=== PATIENT | female | born 1945 | race Caucasian/White ===

== ENCOUNTER → 2022-10-11 16:46 | Outpatient (POV) | payer MEDICARE, SELFPAY | PROVIDERS: Visit Provider Internal Medicine Nephrology | DX: Z00.00 Encounter for general adult medical examination without abnormal findings (principal) ==

== ENCOUNTER 2022-10-15 13:12 | Observation (INO) | payer MEDICARE, SELFPAY ==
[2022-10-15] VITALS (14 sets, daily range): BP systolic 128–262; BP diastolic 66–112; PULSE 63–80; RESP 13–21; TEMP 36.6–36.7; O2SAT 95–99; BMI 27.1
--- NOTE | 2022-10-15 13:10 | ECG_ITS ---
APPROVED REPORT Exam: Resting ECG HR:81 bpm ECG Measurements Heart Rate 81 AXES AK 202 P 75 QRSd 104 QRS 45 QT 369 T 53 QTc 406 Conclusion SINUS RHYTHM NORMAL ECG UNCONFIRMED REPORT Electronically signed by : Prashant Bee MD 10/15/2022 16:16:08
--- NOTE | 2022-10-15 13:12 | HMH.EDGENADL ---
Discharge Plan Disposition Patient Disposition: Admitted Chief Complaint: Chest Pain Prescriptions Prescriptions: No Action nifedipine 30 mg tablet extended release 24hr 30 mg PO DAILY famotidine 40 mg tablet 40 mg PO DAILY levothyroxine 75 mcg tablet 75 mcg PO AM baclofen 10 mg tablet 10 mg PO DAILYP PRN (Reason: Arthritis) pantoprazole 40 mg tablet,delayed release (DR/EC) 40 mg PO DAILY ropinirole 0.5 mg tablet 0.5 mg PO HS pramipexole 0.25 mg tablet 0.25 mg PO DAILY olmesartan 20 mg tablet 20 mg PO DAILY nebivolol 5 mg tablet 5 mg PO DAILY Folinic-Plus 4-50-2 mg tablet 1 tab PO DAILY Clinical Impressions Clinical Impression: Hypertensive emergency Discharge ED Provider: Kedar Amador General Adult HPI General Chief complaint: Chest Pain Stated complaint: Chest Pain Time Seen by Provider: 10/15/22 13:12 History of Present Illness HPI narrative: 77-year-old female presenting with severe hypertension. States that over the last few days she has had multiple symptoms including chest pain some profound dizziness and generalized weakness. Chest pain resolved yesterday but she states that currently she is profoundly weak more than normal this is also affirmed by her and continues to have some generalized dizziness. She has not had any difficulty with walking or changes in vision. No other focal neurologic abnormalities from historical standpoint. She denies any other symptoms. She went and saw her primary care doctor Antonella Gordon who sent her to the emergency department today. Patient is on oral antihypertensive medications has not missed any doses recently. Of note she did recently have a colonoscopy at [facility] where she was found to be profoundly hypertensive and had another episode recently with a provider where she was found to be profoundly hypertensive near the level where she is today. Related Data Home Medications Medication Instructions Recorded Confirmed baclofen 10 mg tablet 10 mg PO DAILYP PRN Arthritis 10/15/22 10/15/22 famotidine 40 mg tablet 40 mg PO DAILY Acid reflux 10/15/22 10/15/22 leucovorin 4 mg-pyridoxal 1 tab PO DAILY Supplement 10/15/22 10/15/22 phosphate 50 mg-mecobalamin 2 mg tablet (Folinic-Plus) levothyroxine 75 mcg tablet 75 mcg PO AM Thyroid 10/15/22 10/15/22 nebivolol 5 mg tablet 5 mg PO DAILY Heart rhythm 10/15/22 10/15/22 nifedipine 30 mg tablet,extended 30 mg PO DAILY High blood pressure 10/15/22 10/15/22 release 24 hr olmesartan 20 mg tablet 20 mg PO DAILY High blood pressure 10/15/22 10/15/22 pantoprazole 40 mg tablet,delayed 40 mg PO DAILY Acid reflux 10/15/22 10/15/22 release pramipexole 0.25 mg tablet 0.25 mg PO DAILY Tremors 10/15/22 10/15/22 ropinirole 0.5 mg tablet 0.5 mg PO HS Leg pain 10/15/22 10/15/22 Allergies Allergy/AdvReac Type Severity Reaction Status Date / Time Opioids - Morphine Analogues Allergy Verified 06/27/22 15:51 CODEINE Allergy Mild Uncoded 04/19/17 15:34 From CIPRO Allergy Mild Uncoded 04/19/17 15:34 LISINOPRIL Allergy Mild Uncoded 04/19/17 15:34 SULFA (SULFONAMIDE) Allergy Mild Uncoded 04/19/17 15:34 [facility] Disclaimer: The information contained in this section may have been updated after the patient was seen, as this information can be updated by other users. Medical History (Updated 10/15/22 @ 13:49 by Kedar Amador MD) CAD (coronary artery disease) GERD (gastroesophageal reflux disease) HTN (hypertension) Hypothyroidism Osteoporosis Parkinson disease Social History Smoking Status: Never smoker alcohol intake: never substance use type: denies use current occupational status: retired Travel in the last 8 weeks: Inside the [place] ROS Obtained: Yes All systems reviewed & no additional complaints except as documented Physical Exam General G
--- NOTE | 2022-10-15 13:22 | CT_ITS ---
FINAL REPORT CLINICAL HISTORY: dizziness, HTN FINDINGS: Axial images of the head were obtained without contrast. Coronal reformatted images were also obtained.This study was performed with techniques to keep radiation doses as low as reasonably achievable (ALARA). Individualized dose reduction techniques using automated exposure control or adjustment of mA and/or kV according to the patient's size were employed. There is no evidence of intracranial hemorrhage or mass. The ventricular size is within normal limits. There is no evidence of shift of the midline structures. No abnormal extra axial fluid collection is identified. No skull abnormality is seen on the bone window images. IMPRESSION: No acute intracranial abnormality. Reviewed, Interpreted and Dictated by Thompson Soria III, MD Transcribed by Liset Schulz Authenticated and . [facility]
--- NOTE | 2022-10-15 13:22 | XR_ITS ---
FINAL REPORT CLINICAL HISTORY: dyspnea FINDINGS: SINGLE-VIEW CHEST The heart size is normal. The mediastinum is normal. There is mild scarring in the lung bases. There is no pneumothorax. IMPRESSION: No acute cardiopulmonary process. Reviewed, Interpreted and Dictated by Thompson Soria III, MD Transcribed by Liset Schulz Authenticated and [facility]
[2022-10-15 13:29] LABS: Basophils % 0.6 % (0.1-2.0); Eosinophils # 0.1 K/mm3 (0.0-0.4); Hemoglobin 14.8 g/dL (12.2-16.2); Lymphocytes # 1.8 K/mm3 (0.7-4.5); Mean Corpuscular HGB Conc 32.8 g/dL (31.8-35.4); Mean Corpuscular Hemoglobin 28.6 pg (27.0-31.2); Mean Corpuscular Volume 87.2 fl (81-99); Mean Platelet Volume 7.9 fl (7.4-10.4); Monocytes # 0.4 K/mm3 (0.1-1.0); Monocytes % 8.1 % (1.7-9.3); Neutrophils # 2.8 K/mm3 (1.8-7.8); Neutrophils % 54.3 % (37.0-80.0); Platelet Count 248 K/mm3 (142-424); Red Blood Count 5.16 M/mm3 (4.20-5.40); Red Cell Distribution Width 13.3 % (11.5-17.5); White Blood Count 5.2 K/mm3 (4.8-10.8)
--- NOTE | 2022-10-15 13:29 | PC.NURSE ---
pharmacy called for drlizzy
[2022-10-15 13:32] LABS: Chloride 99 mmol/L (98-107); Sodium 136 mmol/L (136-145)
[2022-10-15 13:34] LABS: Alanine Aminotransferase 83 U/L (12-78); Aspartate Amino Transferase 72 U/L (14-36); Blood Urea Nitrogen 10 mg/dl (7-17); Creatinine Clearance Estimated 54 mL/min (50-200); Estimated Glomerular Filt Rate 81 ml/min (>60); GFR (African American) 98 ML/MIN (>60)
[2022-10-15 13:35] LABS: Albumin Level 4.7 g/dl (3.5-5.0); Albumin/Globulin Ratio 1.1 (1.1-1.8); Alkaline Phosphatase 61 U/L (38-126); Calcium 9.2 mg/dl (8.4-10.2); Carbon Dioxide 25 mmol/L (22.0-30.0); Globulin 4.4 g/dL (1.3-3.2); Glucose 110 mg/dl (74-100); Total Protein,Serum 9.1 g/dl (6.3-8.2)
--- NOTE | 2022-10-15 13:43 | PC.NURSE ---
Dr Amador speaking with hospitalist
[2022-10-15 13:48] LABS: Troponin I < 0.01 ng/ml (0.00-0.034)
[2022-10-15 14:03] LABS: Coronavirus 19, PCR Not Detected (NotDetected); Influenza A, PCR Not Detected (NotDetected); Influenza B, PCR Not Detected (NotDetected)
--- NOTE | 2022-10-15 14:04 | PC.NURSE ---
Attending notified patient's systolic pressure 166. No new orders at this time. NAD from patient as she rests in bed with spouse at bedside
--- NOTE | 2022-10-15 14:06 | PC.NURSE ---
Report called to MARISSA Livingston. Awaiting COVID swab results and then patient will be transported to 2nd floor
[2022-10-15 14:14] LABS: HDL Cholesterol 43 mg/dl (40-60); Triglycerides 372 mg/dl (30-150); VLDL Cholesterol 74 mg/dL (0-40)
--- NOTE | 2022-10-15 14:15 | PC.NURSE ---
Patient titrated to 2.5mg/hr on Cardene gtt per Attending Verbal order. No adverse reaction noted from Cardene
[2022-10-15 14:25] LABS: Direct LDL Cholesterol 250.47 mg/dL (100-129)
[2022-10-15 14:38] LABS: Chol/HDL Ratio 10.5 (1-3.5); Cholesterol 452 mg/dl (140-200)
--- NOTE | 2022-10-15 14:43 | PC.NURSE ---
arrived to floor by stretcher from ED
--- NOTE | 2022-10-15 14:53 | PC.NURSE ---
Pt brought to floor with Cardene gtt infusing @ 2.5 mg/hr. BP 159/69. MD Gaines notified. New orders received and carried out. Cardene gtt placed on standby.
--- NOTE | 2022-10-15 15:37 | CA_ITS ---
FINAL REPORT TECHNIQUE: Grayscale, color Doppler and duplex Doppler ultrasound of the kidneys, aorta and renal arteries was performed. Multiple velocities were measured. CLINICAL HISTORY: HTN COMPARISON: None FINDINGS: Aorta velocity: 79 cm/sec Right kidney: 10.7 cm. Right intrarenal RI: 0.49-0.67 Right renal artery velocity: 155 cm/sec. Right RAR (Renal artery-Aortic Ratio): 1.97 Left Kidney: 9.6 cm. 1.1 cm left renal cyst. Left intrarenal RI: 0.65-0.76 Left renal artery velocity: 176 cm/sec. Left RAR (Renal Artery-Aortic Ratio): 2.24 IMPRESSION: No evidence of significant renal artery stenosis. CT angiogram or postcontrast MR angiogram would be more sensitive for evaluation of possible renal artery stenosis. Reviewed, Interpreted and Dictated by Thompson Soria III, MD Transcribed by Liberty Stuart Authenticated and [facility]
--- NOTE | 2022-10-15 16:10 | EXP.HP ---
History of Present Illness *Admission Date: 10/15/22 *Reason for visit:: weakness, hypertension *History of present illness: Mrs. Moreira is a 77-year-old female who presented to to the ER with severe hypertension. States over the past few days she has had symptoms including chest burning, dizziness, generalized weakness. Her chest discomfort resolved yesterday and her most prominent symptom today is just general weakness. Occasional headaches. She has not had any difficulty with breathing. No vomiting. No focal neurologic symptoms. Saw her PCP Dr. España who sent her to the ER for further evaluation. Patient is on nebivolol, olmesartan, nifedipine orally and a clonidine patch for her hypertension. States that she occasionally has spikes into the 200s with systolics. States she had a hard time getting her blood pressure controlled. She is scheduled to have a renal artery ultrasound in the next month. Of note she recently had a colonoscopy performed at [facility] and she was severely hypertensive. Required labetalol to improve her blood pressure prior to the procedure. Has not missed any doses of her medication. Just switched her clonidine patch yesterday. Labs obtained with normal kidney function and electrolytes. Systolic blood pressure on arrival to the ER 260. Medicine consulted for admission. ER started Ms. Moreira on a nicardipine drip. She responded very briskly with improvement in her blood pressure. By the time she arrived to the floor less than 2 hours after initiating drip, blood pressure systolic in the 170s. Drip was discontinued. States she feels somewhat better. Denies any changes in vision, active headache, worsening weakness. Ambulating with minimal assistance. at bedside and updated of plan. [facility] Disclaimer: The information contained in this section may have been updated after the patient was seen, as this information can be updated by other users. Medical History (Updated 10/15/22 @ 18:41 by Barrington Gaines MD) CAD (coronary artery disease) GERD (gastroesophageal reflux disease) HTN (hypertension) Hypothyroidism Osteoporosis Parkinson disease Social History Smoking Status: Never smoker alcohol intake: never substance use type: denies use current occupational status: retired Travel in the last 8 weeks: Inside the [place] Review of Systems Review of Systems Review of systems (narrative): 14 point review of systems performed, pertinent positives and negatives as per HPI Meds Home Medications and Allergies Home Medications Medication Instructions Recorded Confirmed Type baclofen 10 mg tablet 10 mg PO BIDP PRN Arthritis 10/15/22 10/15/22 History clonidine 0.1 mg/24 hr weekly 0.1 mg transdermal WEEKLY High 10/15/22 10/15/22 History transdermal patch blood pressure famotidine 40 mg tablet 40 mg PO DAILY Acid reflux 10/15/22 10/15/22 History leucovorin 4 mg-pyridoxal 1 tab PO DAILY Supplement 10/15/22 10/15/22 History phosphate 50 mg-mecobalamin 2 mg tablet (Folinic-Plus) levothyroxine 75 mcg tablet 75 mcg PO AM Thyroid 10/15/22 10/15/22 History nebivolol 5 mg tablet 5 mg PO DAILY Heart rhythm 10/15/22 10/15/22 History nifedipine 30 mg tablet,extended 30 mg PO DAILY High blood pressure 10/15/22 10/15/22 History release 24 hr olmesartan 20 mg tablet 20 mg PO DAILY Hypertension 10/15/22 10/15/22 History pantoprazole 40 mg tablet,delayed 40 mg PO DAILY Acid reflux 10/15/22 10/15/22 History release ropinirole 0.5 mg tablet 0.5 mg PO HS Leg pain 10/15/22 10/15/22 History New Prescriptions to Start Prescriptions: Allergies Allergy/AdvReac Type Severity Reaction Status Date / Time Opioids - Morphine Analogues Allergy Verified 06/27/22 15:51 CODEINE Allergy Mild Uncoded 04/19/17 15:34 From CIPRO Allergy Mild Uncoded 04/19/17 15:34 LISINOPRIL Allergy Mild Uncoded 04/19/17 15:34 SULFA (MEEKS
[2022-10-15 17:15] LABS: Thyroid Stimulating Hormone 1.66 uIU/mL (0.465-4.68)
[2022-10-15 17:19] LABS: Troponin I < 0.01 ng/ml (0.00-0.034)
[2022-10-15 20:14] LABS: Troponin I < 0.01 ng/ml (0.00-0.034)
[2022-10-16] VITALS (8 sets, daily range): BP systolic 131–157; BP diastolic 65–79; PULSE 53–58; RESP 13–23; TEMP 36.4–36.7; O2SAT 94–99; BMI 26.8
[2022-10-16 07:22] LABS: Eosinophils # 0.1 K/mm3 (0.0-0.4); Lymphocytes # 1.8 K/mm3 (0.7-4.5); Mean Corpuscular Hemoglobin 28.3 pg (27.0-31.2); Mean Platelet Volume 7.8 fl (7.4-10.4); Monocytes # 0.4 K/mm3 (0.1-1.0); Neutrophils # 1.9 K/mm3 (1.8-7.8); Red Cell Distribution Width 13.4 % (11.5-17.5); White Blood Count 4.2 K/mm3 (4.8-10.8)
[2022-10-16 07:27] LABS: Chloride 103 mmol/L (98-107); Potassium 3.9 mmoL/L (3.5-5.1); Sodium 138 mmol/L (136-145)
[2022-10-16 07:28] LABS: Basophils % 0.7 % (0.1-2.0); Eosinophils % 2.4 % (0.1-12.0); Hematocrit 39.9 % (37.0-47.0); Lymphocytes % 43.4 % (10-50); Mean Corpuscular HGB Conc 32.5 g/dL (31.8-35.4); Monocytes % 8.7 % (1.7-9.3); Neutrophils % 44.6 % (37.0-80.0); Platelet Count 253 K/mm3 (142-424); Red Blood Count 4.58 M/mm3 (4.20-5.40)
[2022-10-16 07:29] LABS: Blood Urea Nitrogen 12 mg/dl (7-17); Creatinine Clearance Estimated 54 mL/min (50-200); Estimated Glomerular Filt Rate 69 ml/min (>60); GFR (African American) 84 ML/MIN (>60)
[2022-10-16 07:30] LABS: Alanine Aminotransferase 66 U/L (12-78); Albumin Level 3.7 g/dl (3.5-5.0); Albumin/Globulin Ratio 1.2 (1.1-1.8); Alkaline Phosphatase 47 U/L (38-126); Anion Gap 12.9 mEq/L (5-15); Aspartate Amino Transferase 54 U/L (14-36); Bilirubin,Total 0.8 mg/dl (0.2-1.3); Calcium 8.9 mg/dl (8.4-10.2); Carbon Dioxide 26 mmol/L (22.0-30.0); Globulin 3.1 g/dL (1.3-3.2); Glucose 96 mg/dl (74-100); Total Protein,Serum 6.8 g/dl (6.3-8.2)
--- NOTE | 2022-10-16 12:36 | EXP.DC.SUM ---
General Admission date:: 10/15/22 HPI HPI HPI: Mrs. Moreira is a 77-year-old female who presented to to the ER with severe hypertension. States over the past few days she has had symptoms including chest burning, dizziness, generalized weakness. Her chest discomfort resolved yesterday and her most prominent symptom today is just general weakness. Occasional headaches. She has not had any difficulty with breathing. No vomiting. No focal neurologic symptoms. Saw her PCP Dr. España who sent her to the ER for further evaluation. Patient is on nebivolol, olmesartan, nifedipine orally and a clonidine patch for her hypertension. States that she occasionally has spikes into the 200s with systolics. States she had a hard time getting her blood pressure controlled. She is scheduled to have a renal artery ultrasound in the next month. Of note she recently had a colonoscopy performed at [facility] and she was severely hypertensive. Required labetalol to improve her blood pressure prior to the procedure. Has not missed any doses of her medication. Just switched her clonidine patch yesterday. Labs obtained with normal kidney function and electrolytes. Systolic blood pressure on arrival to the ER 260. Medicine consulted for admission. ER started Ms. Moreira on a nicardipine drip. She responded very briskly with improvement in her blood pressure. By the time she arrived to the floor less than 2 hours after initiating drip, blood pressure systolic in the 170s. Drip was discontinued. States she feels somewhat better. Denies any changes in vision, active headache, worsening weakness. Ambulating with minimal assistance. at bedside and updated of plan. Hospital Course Hospital Course Hospital Course: Patient admitted complaining of abdominal pain and diarrhea. Patient tentatively diagnosed with acute gastroenteritis. Patient improved with supportive care during hospitalization. Patient states diarrhea decreasing by time of hospital discharge. Patient also noted to suffer from elevated blood pressures during hospitalization and diagnosed with hypertensive urgency. Patient started on carvedilol 12.5 mg p.o. twice daily, with blood pressures well controlled throughout hospitalization. Patient's subsequently discharged home on carvedilol, olmesartan, nicardipine XL blood pressure control medications at time of hospital disposition. Patient also advised to follow-up with primary care physician for further blood pressure control as outpatient. Patient also complained of chest discomfort during hospitalization. Patient describes chest discomfort as 3/10, crampy, lasting 30 minutes, not reproducible with palpation, resolving without intervention. Patient only had 1 bout of chest discomfort during hospitalization. Patient had 3 sets of cardiac enzymes done during hospitalizations, which were negative for cardiac ischemia. Patient's chest pain had fully resolved by time of hospital discharge. Patient subsequently advised to follow-up with primary care physician for continued chest discomfort complaints. Patient also advised that if primary care physician approved, patient may require outpatient cardiac stress test and/or cardiology evaluation after hospital disposition. Exam Data for Last 24 hours Vital signs and Labs for Last 24 Hours: Temp Pulse Resp BP Pulse Ox 98.0 F 58 L 18 152/77 H 98 10/16/22 11:14 10/16/22 11:14 10/16/22 11:14 10/16/22 11:14 10/16/22 11:14 Laboratory Results - last 24 hr 10/15/22 13:17: WBC 5.2, RBC 5.16, Hgb 14.8, Hct 45.0, MCV 87.2, MCH 28.6, MCHC 32.8, RDW 13.3, Plt Count 248, MPV 7.9, Neut % (Auto) 54.3, Lymph % (Auto) 35.0, [place] % (Auto) 8.1, Eos % (Auto) 2.0, Baso % (Auto) 0.6, Neut # (Auto) 2.8, Lymph # (Auto) 1.8, [place] # (Auto) 0.4, Eos # (Auto) 0.1, Baso # (Auto) 0.0 10/15/22 13:17: Sodium 136, Potassium 4.0, Chloride 99, Carbon Dioxide 25, Anion Gap 16.0 H, BUN 10, Creatinine 0.
--- NOTE | 2022-10-18 12:59 | SW/DCPLANNER ---
I called and spoke with this patient regarding home health services. Patient stated that she is not interested in home health services at this time. Patient stated that she is doing well at home and does not have any needs at this time.
== END 2022-10-16 14:30 | disposition home or self-care (01) ==
LOC: ER 13:49 → 2ND 13:57
PROVIDERS: Admitting Provider Internal Medicine Adolescent Medicine; Emergency Provider Student in an Organized Health Care Education/Training Program; PCP Nurse Practitioner Family; Visit Provider Internal Medicine Adolescent Medicine
DX: I16.1 Hypertensive emergency (principal); E03.9 Hypothyroidism, unspecified; Z79.899 Other long term (current) drug therapy; K21.9 Gastro-esophageal reflux disease without esophagitis; I25.10 Atherosclerotic heart disease of native coronary artery without angina pectoris; G20 Parkinson's disease; I10 Essential (primary) hypertension
CPT/HCPCS: G0378; 36415; 70450; 71045; 80053; 80061; 83735; 84443; 84484; 85025; 87636; 93005; 93306; 93976; 99291; C9803; U0003; U0005

== ENCOUNTER 2022-11-03 02:52 | Emergency (ER) | payer MEDICARE, SELFPAY ==
[2022-11-03] VITALS (8 sets, daily range): BP systolic 154–183; BP diastolic 60–80; PULSE 65–80; RESP 17–20; TEMP 36.4–36.9; O2SAT 94–98; BMI 26.9
--- NOTE | 2022-11-03 03:19 | PC.NURSE ---
Dr. Aldana at
--- NOTE | 2022-11-03 03:21 | ECG_ITS ---
APPROVED REPORT Exam: Resting ECG HR:79 bpm ECG Measurements Heart Rate 79 AXES VA 192 P 84 QRSd 109 QRS 52 QT 378 T 53 QTc 412 Conclusion SINUS RHYTHM NORMAL ECG UNCONFIRMED REPORT Electronically signed by : Prashant Bee MD 11/04/2022 21:18:13
[2022-11-03 03:26] LABS: Basophils % 0.5 % (0.1-2.0); Eosinophils # 0.1 K/mm3 (0.0-0.4); Eosinophils % 1.7 % (0.1-12.0); Hemoglobin 13.9 g/dL (12.2-16.2); Lymphocytes # 1.8 K/mm3 (0.7-4.5); Lymphocytes % 24.6 % (10-50); Mean Corpuscular Hemoglobin 28.4 pg (27.0-31.2); Mean Corpuscular Volume 86.3 fl (81-99); Mean Platelet Volume 7.8 fl (7.4-10.4); Monocytes # 0.4 K/mm3 (0.1-1.0); Monocytes % 5.3 % (1.7-9.3); Neutrophils # 4.9 K/mm3 (1.8-7.8); Neutrophils % 67.8 % (37.0-80.0); Platelet Count 221 K/mm3 (142-424); Red Blood Count 4.87 M/mm3 (4.20-5.40); Red Cell Distribution Width 13.2 % (11.5-17.5); White Blood Count 7.2 K/mm3 (4.8-10.8)
[2022-11-03 03:28] LABS: Chloride 100 mmol/L (98-107); Sodium 134 mmol/L (136-145)
[2022-11-03 03:31] LABS: Microscopic, Urine URINE MICROSCOPIC (MICROSCOPIC)
[2022-11-03 03:31] LABS: Alanine Aminotransferase 68 U/L (12-78); Albumin Level 4.4 g/dl (3.5-5.0); Albumin/Globulin Ratio 1.2 (1.1-1.8); Alkaline Phosphatase 73 U/L (38-126); Aspartate Amino Transferase 53 U/L (14-36); Bilirubin,Total 0.9 mg/dl (0.2-1.3); Blood Urea Nitrogen 13 mg/dl (7-17); Carbon Dioxide 25 mmol/L (22.0-30.0); Creatinine Clearance Estimated 54 mL/min (50-200); Estimated Glomerular Filt Rate 81 ml/min (>60); GFR (African American) 98 ML/MIN (>60); Globulin 3.6 g/dL (1.3-3.2)
[2022-11-03 03:32] LABS: Calcium 9.3 mg/dl (8.4-10.2); Glucose 124 mg/dl (74-100)
[2022-11-03 03:45] LABS: Troponin I < 0.01 ng/ml (0.00-0.034)
[2022-11-03 03:46] LABS: Appearance,Urine CLEAR (Clear); Bacteria,Urine Trace /lpf; Bilirubin,Urine Negative (Negative); Blood, Urine 2+ (Negative); Color,Urine YELLOW (Yellow); Glucose,Urine (UA) Negative (Negative); Ketones,Urine Negative (Negative); Leukocyte Esterase,Urine TRACE (Negative); Nitrate,Urine Negative (Negative); Protein,Urine Negative (Negative); Squamous Epithelial Cell,Urine Occasional #/hpf (0-5); Urobilinogen,Urine 0.2 EU/dl (0.2)
--- NOTE | 2022-11-03 04:38 | PC.NURSE ---
Pt up to bathroom and back to bed. Another warm blanket provided.
--- NOTE | 2022-11-03 05:46 | HMH.EDWEAK ---
Discharge Plan Disposition Patient Disposition: Home, Self-Care Prescriptions Prescriptions: No Action Repatha SureClick 140 mg/mL pen injector 140 mg SQ Q2W carvedilol 12.5 mg tablet 12.5 mg PO BID azelastine 137 mcg (0.1 %) aerosol,spray 1 spray intranasal BID Rx Instructions: administer into each nostril nifedipine 30 mg tablet extended release 24hr 30 mg PO DAILY famotidine 40 mg tablet 40 mg PO DAILY levothyroxine 75 mcg tablet 75 mcg PO AM baclofen 10 mg tablet 10 mg PO BIDP PRN (Reason: Arthritis) ropinirole 0.5 mg tablet 0.5 mg PO HS olmesartan 20 mg tablet 20 mg PO DAILY Folinic-Plus 4-50-2 mg tablet 1 tab PO DAILY Referrals Follow up/Referrals: Leroy Gordon APRN [Primary Care Provider] - See instructions Clinical Impressions Clinical Impression: Weakness, Hypothyroidism Instructions Patient Instructions: DI for Muscle Weakness Discharge ED Provider: Jovan (ED)Roderick Weakness HPI General Chief complaint: Weakness Stated complaint: possible blood pressure problem Time Seen by Provider: 11/03/22 04:10 Mode of Arrival: Ambulatory Source of Information: Patient, Spouse and Medical Record Limitations: No Limitations Description of Symptoms (Recalled from ER Triage Doc. by RN): pt c/o her throat feeling tight, dry/congested sinuses, LUQ/RUQ pain, diarrhea, dry heaving, weakness, dizziness, bilateral flank pain, back spasms, and leg cramps. pt states after taking her 2200 meds the last two nights (olmesartan, requip, baclofen and procardia) both nights she has had the tightness in her throat. pt states she has felt bad the last two days. History of Present Illness HPI Narrative: nonspecific changes reported by pt this am - with tightness in throat - no rash and no def chest pain MD Complaint: generalized weakness Onset (ago): hour(s) Duration: intermittent Location: generalized Migration: none Severity: moderate Related Data Home Medications Medication Instructions Recorded Confirmed baclofen 10 mg tablet 10 mg PO BIDP PRN Arthritis 10/15/22 11/03/22 famotidine 40 mg tablet 40 mg PO DAILY Acid reflux 10/15/22 11/03/22 leucovorin 4 mg-pyridoxal 1 tab PO DAILY Supplement 10/15/22 11/03/22 phosphate 50 mg-mecobalamin 2 mg tablet (Folinic-Plus) levothyroxine 75 mcg tablet 75 mcg PO AM Thyroid 10/15/22 11/03/22 nifedipine 30 mg tablet,extended 30 mg PO DAILY High blood pressure 10/15/22 11/03/22 release 24 hr olmesartan 20 mg tablet 20 mg PO DAILY Hypertension 10/15/22 11/03/22 ropinirole 0.5 mg tablet 0.5 mg PO HS Leg pain 10/15/22 11/03/22 evolocumab 140 mg/mL subcutaneous 140 mg SQ Q2W . 10/25/22 11/03/22 pen injector (Lucian Tan) azelastine 137 mcg (0.1 %) nasal 1 spray intranasal BID . 11/03/22 11/03/22 spray aerosol carvedilol 12.5 mg tablet 12.5 mg PO BID htn 11/03/22 11/03/22 Allergies Allergy/AdvReac Type Severity Reaction Status Date / Time Opioids - Morphine Analogues Allergy Verified 10/25/22 13:36 CODEINE Allergy Mild Uncoded 10/25/22 13:36 From CIPRO Allergy Mild Uncoded 10/25/22 13:36 LISINOPRIL Allergy Mild Uncoded 10/25/22 13:36 SULFA (SULFONAMIDE) Allergy Mild Uncoded 10/25/22 13:36 [facility] Disclaimer: The information contained in this section may have been updated after the patient was seen, as this information can be updated by other users. Medical History (Updated 11/03/22 @ 06:38 by Roderick Aldana (TACHO)MD) CAD (coronary artery disease) Chronic otitis externa of left ear Eustachian tube dysfunction GERD (gastroesophageal reflux disease) HTN (hypertension) Hypothyroidism Osteoporosis Parkinson disease Social History Smoking Status: Never smoker alcohol intake: never substance use type: denies use current occupational status: retired Travel in the last 8 weeks: [place] the [place]
--- NOTE | 2022-11-03 06:36 | PC.NURSE ---
pt felling nauseated, given Zofran 4mg IV per MD. pt and spouse updated that we are awaiting for 2nd troponin
[2022-11-03 06:46] LABS: Troponin I < 0.01 ng/ml (0.00-0.034)
== END 2022-11-03 07:12 | disposition home or self-care (01) ==
PROVIDERS: Emergency Provider Emergency Medicine; PCP Nurse Practitioner Family
DX: E03.9 Hypothyroidism, unspecified (principal); R53.1 Weakness; R10.11 Right upper quadrant pain; R10.12 Left upper quadrant pain; I25.10 Atherosclerotic heart disease of native coronary artery without angina pectoris; I10 Essential (primary) hypertension; G20 Parkinson's disease
CPT/HCPCS: 80053; 81001; 84484; 85025; 87086; 93005; 96361; 96374; 99285; J2405

== ENCOUNTER → 2022-11-10 12:11 | Outpatient (CLI) | payer MEDICARE, SELFPAY ==
--- NOTE | 2022-11-10 12:36 | CA_ITS ---
FINAL REPORT TECHNIQUE: Color Doppler, duplex Doppler and gerard scale sonography of the bilateral neck arterial vasculature was performed. Velocities were measured in the carotid arteries. Stenosis evaluation based on the validated velocity criteria. CLINICAL HISTORY: dizziness, CAD COMPARISON: None FINDINGS: The peak systolic velocity of the right common carotid artery is 62 cm/s. The peak systolic velocity of the right internal carotid artery is 97 cm/s and end diastolic velocity 28 cm/s. The ICA/CCA ratio is 1.6. A mild amount of plaque is present. The right external carotid artery is patent. The right vertebral artery is patent with antegrade flow. The peak systolic velocity of the left common carotid artery is 56 cm/s. The peak systolic velocity of the left internal carotid artery is 158 cm/s and end diastolic velocity 33 cm/s. The ICA/CCA ratio is 3.0. A mild amount of plaque is present. The left external carotid artery is patent.The left vertebral artery is patent with antegrade flow. IMPRESSION: Less than 50% bilateral carotid stenoses. Bilateral patent vertebral arteries with antegrade flow. If indicated, CTA or MRA could further evaluate. Reviewed, Interpreted and Dictated by Thompson Soria III, MD Transcribed by Liberty Stuart Authenticated and [facility]
== END ==
PROVIDERS: PCP Nurse Practitioner Family; Visit Provider Nurse Practitioner Family
DX: R42 Dizziness and giddiness (principal)
CPT/HCPCS: 93880

== ENCOUNTER → 2022-11-25 09:19 | Outpatient (CLI) | payer MEDICARE, SELFPAY ==
--- NOTE | 2022-11-25 09:19 | CT_ITS ---
FINAL REPORT TECHNIQUE: Pre-and postcontrast images of the abdomen were performed by computed tomography. Extensive 3-D reconstruction images were performed. A CTA was performed. This study was performed with techniques to keep radiation doses as low as reasonably achievable (ALARA). Individualized dose reduction techniques using automated exposure control or adjustment of mA and/or kV according to the patient''s size were employed. Pre-and postcontrast images of the pelvis were performed by computed tomography. Extensive 3-D reconstruction images were performed. A CTA was performed. This study was performed with techniques to keep radiation doses as low as reasonably achievable (ALARA). Individualized dose reduction techniques using automated exposure control or adjustment of mA and/or kV according to the patient''s size were employed. CLINICAL HISTORY: celiac artery stenosis, HTN COMPARISON: None FINDINGS: ABDOMEN: The lung bases are clear. Precontrast images demonstrate no evidence of nephrolithiasis. No adrenal masses are identified. The pancreas is unremarkable. There are vague hyperdensities in the peripheral right lobe of the liver, probably due to transient perfusion anomalies. There is also a superiorly separate enhancing lesion in the right lobe measuring 10 mm, and an inferior right lobe enhancing lesion measuring 24 mm. There are a few small splenic hypodense areas that most likely represent splenic cysts. There is a right renal cyst measuring 10 mm in size. The appearance of the bowel is negative. CTA: The abdominal aorta is proper caliber, with moderate diffuse plaque. The SMA, celiac axis, and ISABELLE are patent. There is mild celiac artery stenosis that is not considered hemodynamically significant. The renal arteries are patent bilaterally, with mild bilateral renal artery stenosis of less than 50%. IMPRESSION: No evidence of significant mesenteric arterial occlusive disease or renal artery occlusive disease. Enhancing liver lesions of uncertain etiology. Would recommend follow-up with either CT or MR using hemangioma protocol. PELVIS: The uterus has been surgically removed. The bladder is unremarkable in appearance. No mass or adenopathy is identified in the pelvis. The bowel located in the pelvis is unremarkable in appearance. CTA: No significant areas of vascular stenosis seen in the pelvis. Impression: Unremarkable pelvic CTA. Reviewed, Interpreted and Dictated by Yadiel Reis MD Transcribed by Terri Wilcox Authenticated and [facility]
== END ==
PROVIDERS: PCP Nurse Practitioner Family; Visit Provider Physician Assistant
DX: I10 Essential (primary) hypertension (principal); I77.1 Stricture of artery; K21.9 Gastro-esophageal reflux disease without esophagitis; Z82.49 Family history of ischemic heart disease and other diseases of the circulatory system
CPT/HCPCS: 74174; Q9967

== ENCOUNTER → 2022-12-06 12:25 | Outpatient (CLI) | payer MEDICARE, SELFPAY ==
--- NOTE | 2022-12-06 12:39 | XR_ITS ---
FINAL REPORT CLINICAL HISTORY: TAVARES FOOT PAIN, RECENT FALL FINDINGS: Right foot Three views were obtained. There is a fracture of the proximal medial aspect of the 2nd proximal phalanx which extends to the joint. There are also questionable fractures of the 1st and 3rd proximal phalanges. No soft tissue abnormality is identified. IMPRESSION: Fractures as above. Reviewed, Interpreted and Dictated by Thompson Soria III, MD Transcribed by Liset Schulz Authenticated and [facility]
--- NOTE | 2022-12-06 12:39 | XR_ITS ---
FINAL REPORT CLINICAL HISTORY: TAVARES FOOT PAIN, RECENT FALL FINDINGS: Left foot Three views were obtained. There is no acute fracture or dislocation. There are mild degenerative changes. There is a chronic fracture of the 2nd metatarsal. Small plantar calcaneal spur is identified. No soft tissue abnormality is identified. IMPRESSION: No acute process. Reviewed, Interpreted and Dictated by Thompson Soria III, MD Transcribed by Liset Schulz Authenticated and . [facility]
== END ==
PROVIDERS: PCP Nurse Practitioner Family; Visit Provider Nurse Practitioner Family
DX: M79.671 Pain in right foot (principal); M79.672 Pain in left foot; W19.XXXA Unspecified fall, initial encounter
CPT/HCPCS: 73630

== ENCOUNTER → 2022-12-10 12:56 | Outpatient (CLI) | payer MEDICARE, SELFPAY ==
--- NOTE | 2022-12-10 13:17 | CA_ITS ---
FINAL REPORT TECHNIQUE: Duplex color Doppler with spectral analysis performed of the lower extremities. CLINICAL HISTORY: edema, claudication- leg cramps FINDINGS: RIGHT LOWER EXTREMITY: Velocities cm/sec: Brachial: 165 Thigh: 202 Calf: 200 PT: 204 DLP: 194 Digit: 152 Waveforms are triphasic and biphasic. LEFT LOWER EXTREMITY: Velocities cm/sec: Brachial: 174 Thigh: 185 Calf: 207 PT: 198 DLP: 201 Digit: 170 Waveforms are triphasic and biphasic. IMPRESSION: No significant peripheral artery disease. Reviewed, Interpreted and Dictated by Thompson Soria III, MD Transcribed by Amparo Aiken Authenticated and . [facility]
--- NOTE | 2022-12-10 13:17 | US_ITS ---
FINAL REPORT CLINICAL HISTORY: claudication, HTN, hyperlipidemia, bilateral rest pain, bilateral claudication FINDINGS: ANKLE-BRACHIAL PRESSURE INDICES Pressure indices are as follows: RIGHT LOWER EXTREMITY: Ankle-brachial pressure index: 1.17 Comments: Normal LEFT LOWER EXTREMITY: Ankle-brachial pressure index: 1.16 Comments: Normal IMPRESSION: No evidence of significant obstructive peripheral vascular disease of the lower extremities Reviewed, Interpreted and Dictated by Thompson Soria III, MD Transcribed by Amparo Aiken Authenticated and [facility]
--- NOTE | 2022-12-10 13:17 | CA_ITS ---
FINAL REPORT CLINICAL HISTORY: edema s/p fall & medication changes FINDINGS: Color Doppler, duplex Doppler and compression sonography of the bilateral lower extremities was performed. There is no evidence of deep venous thrombosis from the level of the groin to the calf. The deep veins are patent and compressible. IMPRESSION: No evidence of deep venous thrombosis bilateral lower extremities. Reviewed, Interpreted and Dictated by Thompson Soria III, MD Transcribed by Amparo Aiken Authenticated and [facility]
== END ==
PROVIDERS: PCP Nurse Practitioner Family; Visit Provider Internal Medicine
DX: R60.9 Edema, unspecified; R60.0 Localized edema; I70.213 Atherosclerosis of native arteries of extremities with intermittent claudication, bilateral legs
CPT/HCPCS: 93923; 93925; 93970

== ENCOUNTER → 2022-12-23 11:04 | Outpatient (CLI) | payer MEDICARE, SELFPAY ==
--- NOTE | 2022-12-23 11:07 | MR_ITS ---
FINAL REPORT CLINICAL HISTORY: LOW BACK PAIN. HISTORY BACK SURGERY 2008. LOW BACK PAIN WITH BILATERAL HIP AND GROIN PAIN. COMPARISON: None FINDINGS: Multiplanar MR imaging of the lumbar spine was performed without contrast. On the sagittal T2-weighted images, there is abnormal decreased signal throughout the lumbar discs, with relative sparing of the L5-S1 disc. There is indentation of the superior endplate of L2 with bone marrow edema in the superior portion of the L2 vertebral body, compatible with a subacute fracture. There is approximately 20% loss of vertebral body height at this level. The vertebral alignment is normal. T12-L1: There is no significant canal stenosis or neuroforaminal narrowing. L1-2: A mild annular bulge is present along with a right paracentral disc protrusion which produces mild to moderate right neural foraminal narrowing. L2-3: There is a moderate annular bulge present with moderate facet osteoarthropathy. Moderate bilateral neural foraminal narrowing is present. L3-4: A large annular bulge is present with moderate canal stenosis. There is moderate to severe bilateral neural foraminal narrowing. L4-5: There is mild canal stenosis and mild bilateral neural foraminal narrowing. L5-S1: There is no significant canal stenosis or neural foraminal narrowing. IMPRESSION: Multilevel lumbar disc disease, most severe at the L3-4 level as described. 20% loss of vertebral body height in the L2 vertebral body superior endplate with associated bone marrow edema, most compatible with a subacute compression fracture. Reviewed, Interpreted and Dictated by Jimbo Quintero MD Transcribed by Terri Wilcox Authenticated and . [facility]
== END ==
PROVIDERS: PCP Nurse Practitioner Family; Visit Provider Nurse Practitioner Family
DX: M54.50 Low back pain, unspecified (principal)
CPT/HCPCS: 72148; 76376

== ENCOUNTER 2022-12-29 09:49 | Outpatient (CLI) | payer MEDICARE, SELFPAY ==
[2022-12-29 10:26] VITALS: BP 154/81; PULSE 58; RESP 18; TEMP 36.4; O2SAT 98
== END 2022-12-29 10:26 | disposition home or self-care (01) ==
LOC: INF 09:50
PROVIDERS: PCP Nurse Practitioner Family; Visit Provider Internal Medicine
DX: E78.5 Hyperlipidemia, unspecified (principal)
CPT/HCPCS: 96372; J1306

== ENCOUNTER → 2023-03-11 10:09 | Outpatient (CLI) | payer MEDICARE, SELFPAY ==
[2023-03-11 10:20] LABS: Microscopic, Urine URINE MICROSCOPIC (MICROSCOPIC)
[2023-03-11 11:14] LABS: Albumin Level 4.2 g/dl (3.5-5.0); Anion Gap 11.3 mEq/L (5-15); Blood Urea Nitrogen 13 mg/dl (7-17); Calcium 9.6 mg/dl (8.4-10.2); Carbon Dioxide 28 mmol/L (22.0-30.0); Chloride 106 mmol/L (98-107); Estimated Glomerular Filt Rate 54 ml/min (>60); GFR (African American) 65 ML/MIN (>60); Glucose 100 mg/dl (74-100); Phosphorous 3.7 mg/dl (2.5-4.5); Potassium 4.3 mmoL/L (3.5-5.1); Sodium 141 mmol/L (136-145)
[2023-03-11 11:37] LABS: Appearance,Urine CLEAR (Clear); Bilirubin,Urine Negative (Negative); Blood, Urine TRACE-I (Negative); Color,Urine YELLOW (Yellow); Glucose,Urine (UA) Negative (Negative); Ketones,Urine Negative (Negative); Leukocyte Esterase,Urine Negative (Negative); Nitrate,Urine Negative (Negative); PH,Urine 7.5 (5.0-8.5); Protein,Urine Negative (Negative); Specific Gravity, Urine 1.015 (1.005-1.030); Urobilinogen,Urine 0.2 EU/dl (0.2)
[2023-03-11 11:55] LABS: Bacteria,Urine Trace /lpf; RBC,Urine Occasional #/hpf (0-3); Squamous Epithelial Cell,Urine Occasional #/hpf (0-5)
== END ==
PROVIDERS: PCP Nurse Practitioner Family; Visit Provider Internal Medicine Nephrology
DX: I10 Essential (primary) hypertension (principal)
CPT/HCPCS: 80069; 81001

== ENCOUNTER → 2023-03-28 08:55 | Outpatient (CLI) | payer MEDICARE, SELFPAY ==
--- NOTE | 2023-03-28 09:00 | XR_ITS ---
FINAL REPORT CLINICAL HISTORY: POST MENOPAUSAL FINDINGS: Using L1-4, the bone mineral density of the spine is 1.161 g/cm2, corresponding to T-score of 1.0. Using the left hip, the bone mineral density of the femoral neck is 0.614 g/cm2, corresponding to a T-score of -2.1. FRAX: 22% for major osteoporotic fracture. Using the right hip, the bone mineral density of the femoral neck is 0.649 g/cm2, corresponding to a T-score of -1.8. FRAX: 20% for major osteoporotic fracture. IMPRESSION: Diminished bone mineral density of the bilateral hips consistent with osteopenia. Normal bone mineral density of the lumbar spine. Reviewed, Interpreted and Dictated by Yadiel Reis MD Transcribed by Pierce Barros Authenticated and [facility]
== END ==
PROVIDERS: PCP Nurse Practitioner Family; Visit Provider Nurse Practitioner Family
DX: M81.0 Age-related osteoporosis without current pathological fracture (principal)
CPT/HCPCS: 77080

== ENCOUNTER 2023-04-05 09:04 | Outpatient (CLI) | payer MEDICARE, SELFPAY ==
[2023-04-05 09:18] VITALS: BP 125/73; PULSE 61; RESP 16; TEMP 36.6; O2SAT 98
[2023-04-05] MEDS: INCLISIRAN SODIUM 284 MG/1.5 ML SYRINGE SQ (09:18)
== END 2023-04-05 09:35 | disposition home or self-care (01) ==
LOC: INF 09:05
PROVIDERS: PCP Nurse Practitioner Family; Visit Provider Internal Medicine
DX: E78.5 Hyperlipidemia, unspecified (principal)
CPT/HCPCS: 96372; J1306

== ENCOUNTER 2023-10-27 12:37 | Outpatient (CLI) | payer MEDICARE, SELFPAY ==
--- NOTE | 2023-10-27 12:37 | CA_ITS ---
APPROVED REPORT EXAM: Comprehensive 2D, Doppler, and color-flow Echocardiogram Log Raft Worker: Zoey Dickson CRT Ht: 5 ft 5 in Wt: 148lbs BSA: 1.74 BP: 147/61 mmHg Indications: CAD, Hyperlipidemia, Hypertension/HDD, AI 2D Dimensions LA Volume 33.40 mL LA Volume Index 18.80 mL/m2 (M/F) 16-34 M-Mode Dimensions RVDd 2.34 cm (0.9-2.6) LA Diam 3.06 cm (1.9-4.0) LVDd 4.36 cm (3.5-5.7) LVDs 2.45 cm (3.5-5.7) IVSd 1.07 cm (0.6-1.1) PWd 0.89 cm (0.6-1.1) EF (Teich) 75.30% FS 43.80% EDV (Teich) 85.80 mL TAPSE 1.94 (<1.7) ESV (Teich) 21.20 mL LV Diastology E Decel Time 150 (160-240 msec) E/A Ratio 0.69 MED A' 9.70 cm/s LAT A' 11.50 cm/s Aortic Valve AI PHT 618.00 ms AO Peak GR. 12.60 mmHg Mitral Valve MV E Max Jake. 61.0 (40-130 cm/s) MV A Velocity 88.0 (40-130 cm/s) E/A Ratio 0.69 MV PHT 44.0 ms Tricuspid Valve TR P. Velocity 248.00 cm/s RAP Estimate 10.00 mmHg RVSP 34.60 mmHg Left Ventricle The left ventricle is normal size. The left ventricular systolic function is normal. The left ventricular ejection fraction is within the normal range. Proximal septal thickening is noted. There is normal LV segmental wall motion. Transmitral Doppler flow pattern suggests impaired LV relaxation. LVEF is 55%. Right Ventricle The right ventricle is mildly dilated. The right ventricular systolic function is normal. Atria The left atrium is mildly dilated. The right atrium size is normal. There is no Doppler evidence of interatrial shunt. Aortic Valve The aortic valve is mildly thickened. There is no aortic valvular stenosis. Mild aortic regurgitation. Mitral Valve The mitral valve is normal in structure. No evidence of mitral valve stenosis. Trace mitral regurgitation. Tricuspid Valve The tricuspid valve leaflets are thin and pliable. Mild tricuspid regurgitation. RVSP is 25-30 mmHg. Pulmonic Valve The pulmonary valve is normal in structure. Trace pulmonic regurgitation. Great Vessels The aortic root is normal in size. The ascending aorta is normal in size. IVC is normal in size and collapses >50% with inspiration. Pericardium There is no pericardial effusion. Other Information Study Quality: Fair Conclusion Normal biventricular systolic function. Mild RV dilation. Mild LA dilation. Mild AI, mild TR. RVSP is 25-30 mmHg. Electronically signed by : Tiffanie Maravilla MD 10/30/2023 22:14:30
== END 2023-10-27 23:59 | disposition home or self-care (01) ==
LOC: RT 12:37
PROVIDERS: PCP Nurse Practitioner Family; Visit Provider Internal Medicine
DX: I35.1 Nonrheumatic aortic (valve) insufficiency (principal); Z82.49 Family history of ischemic heart disease and other diseases of the circulatory system; I25.10 Atherosclerotic heart disease of native coronary artery without angina pectoris; I11.9 Hypertensive heart disease without heart failure
CPT/HCPCS: 93306

== ENCOUNTER 2023-11-01 13:26 | Outpatient (CLI) | payer MEDICARE, SELFPAY ==
[2023-11-01] MEDS: INCLISIRAN SODIUM 284 MG/1.5 ML SYRINGE SQ (13:44)
[2023-11-01 13:45] VITALS: BP 130/59; PULSE 61; RESP 18; O2SAT 97
== END 2023-11-01 13:46 | disposition home or self-care (01) ==
LOC: INF 13:27
PROVIDERS: PCP Nurse Practitioner Family; Visit Provider Internal Medicine
DX: E78.5 Hyperlipidemia, unspecified (principal)
CPT/HCPCS: 96372; J1306

== ENCOUNTER 2023-11-05 09:48 | Emergency (ER) | payer MEDICARE, SELFPAY ==
[2023-11-05 10:00] VITALS: BP 124/58; PULSE 59; RESP 18; TEMP 36.4; O2SAT 100; BMI 24.4
--- NOTE | 2023-11-05 10:10 | ED_ITS ---
Discharge Plan Disposition Patient Disposition: Home, Self-Care Condition: Good Prescriptions Prescriptions: New phenazopyridine [Pyridium] 200 mg tablet 200 mg PO Q8H 2 Days Qty: 6 0RF methylprednisolone 4 mg Tablets,Dose Pack 4 mg PO DIRECTED 6 Days Qty: 21 0RF Rx Instructions: Take 1 pack as directed for 6 days cefdinir 300 mg capsule 300 mg PO BID Qty: 20 0RF ondansetron 4 mg Tablet,Disintegrating 4 mg PO Q8H PRN (Reason: Nausea) Qty: 12 0RF No Action fenofibrate 160 mg tablet 160 mg PO DAILY candesartan 16 mg tablet 16 mg PO DAILY amlodipine [Norvasc] 5 mg tablet 10 mg PO DAILY cyclobenzaprine 10 mg tablet 10 mg PO BID Qty: 60 0RF fluticasone propionate [Flonase Allergy Relief] 50 mcg/actuation spr ay,suspension 2 spray intranasal DAILY PRN (Reason: allergies) Rx Instructions: administer into each nostril Leqvio 284 mg/1.5 mL syringe 284 mg SQ [id number] Qty: 1.5 2RF carvedilol 12.5 mg tablet 12.5 mg PO BID famotidine 40 mg tablet 40 mg PO DAILY levothyroxine 75 mcg tablet 75 mcg PO AM duloxetine [Cymbalta] 60 mg Capsule,Delayed Release(Dr/Ec) 60 mg PO DAILY clonazepam 0.5 mg Tablet 0.5 mg PO HS Rx Instructions: administer 30 minutes before bedtime Referrals Follow up/Referrals: Leroy Gordon APRN [Primary Care Provider] - See instructions Activity Restrictions/Add. Instructions Additional Instructions/Restrictions: Drink plenty of fluids. Take tylenol for pain or fever. Take the medications as directed. Follow up with your regular doctor. GO TO THE ER FOR ANY WORSENING SYMPTOMS The pyridium will make your urine turn orange, this is an expected side effect. It will stain your clothes if it comes into contact with them. We will culture the urine. That will tell what bacteria is causing your infection and which antibiotics will treat it best. Sometimes the first antibiotic we prescribe turns out to not work against different bacteria. So, make sure you follow up within 3 days if you are not getting better. If your back pain continues please return to the ER. You could have a kidney stone instead of a UTI. Clinical Impressions Clinical Impression: Pharyngitis, UTI (urinary tract infection) Instructions Patient Instructions: DI for Pharyngitis/Tonsillopharyngitis -- Adult, DI for Urinary Tract Infection (UTI) Discharge ED Provider: Barrington Cortés [facility] [place] HPI General Stated complaint: sore throat, lower back pain Time Seen by Provider: 11/05/23 10:10 Related Data Home Medications Medication Instructions Recorded Confirmed famotidine 40 mg tablet 40 mg PO DAILY Acid reflux 10/15/22 11/05/23 levothyroxine 75 mcg tablet 75 mcg PO AM Thyroid 10/15/22 11/05/23 carvedilol 12.5 mg tablet 12.5 mg PO BID htn 11/03/22 11/05/23 candesartan 16 mg tablet 16 mg PO DAILY 11/15/22 11/05/23 fenofibrate 160 mg tablet 160 mg PO DAILY 11/15/22 11/05/23 amlodipine 5 mg tablet (Norvasc) 10 mg PO DAILY 12/06/22 11/05/23 clonazepam 0.5 mg tablet 0.5 mg PO HS 04/05/23 11/05/23 duloxetine 60 mg capsule,delayed 60 mg PO DAILY 04/05/23 11/05/23 release (Cymbalta) fluticasone propionate 50 2 spray intranasal DAILY PRN 08/02/23 11/05/23 mcg/actuation nasal allergies spray,suspension (Flonase Allergy Relief) Previous Rx's Medication Instructions Recorded cyclobenzaprine 10 mg tablet 10 mg PO BID #60 tabs 12/29/22 inclisiran 284 mg/1.5 mL 284 mg (1.5 mL) SQ [id number] #1.5 mL 09/30/23 subcutaneous syringe (Leqvio) cefdinir 300 mg capsule 300 mg PO BID #20 caps 11/05/23 methylprednisolone 4 mg tablets in 4 mg PO DIRECTED 6 days #21 tabs 11/05/23 a dose pack ondansetron 4 mg disintegrating 4 mg PO Q8H PRN Nausea #12 tabs 11/05/23 tablet phenazopyridine 200 mg tablet 200 mg PO Q8H 2 days #6 tabs 11/05/23 (Pyridium) Allergies Allergy/AdvReac Type Severity Reaction Status Date / Time ciprofloxacin [From Cipro] Allergy Unknown Unknown Verified 11/05/23 10:19 allergy reaction codeine Allergy Unknown Unknown Verified 11/05/23 10:19 allergy reaction lisinopril Allergy Unknown Unknown Verified 11/05/23 10:19 allergy reaction Sulfa (Sulfonamide Allergy Unknown Unknown Verified 11/05/23 10:19 Antibiotics) allergy reaction Opioids - Morphine Analogues Allergy Unknown Verified 11/05/23 10:19 allergy reaction evolocumab AdvReac Severe Difficulty Verified 11/05/23 10:19 [From Lucian Tan] Swallowing PFSH PFSH Disclaimer: The information contained in this section may have been updated after the patient was seen, as this information can be updated by other users. Medical History Chronic otitis externa of left ear Eustachian tube dysfunction This is more of a chronic left greater than right ear issue. I do feel it likely relates to allergy seasonal variation. GERD (gastroesophageal reflux disease) Hypothyroidism CAD (coronary artery disease) Osteoporosis HTN (hypertension) Surgical History Hx of tonsillectomy Hx of cholecystectomy History of back surgery Hx of hysterectomy Family History Other Family history of cancer Family history of heart disease Social History Smoking Status: Never smoker alcohol intake: never substance use type: denies use current occupational status: retired Travel in the last 8 weeks: Inside the [place] ROS Obtained: Yes All systems reviewed & no additional complaints except as do cumented Constitutional Constitutional: Reports chills and Reports fever(s) Eyes Eyes: Denies eye discharge ENT Ears, Nose, Mouth, and Throat: Reports as per HPI Cardiovascular Cardiovascular: Denies chest pain Respiratory Respiratory: Denies chest congestion and Reports cough Gastrointestinal Gastrointestingal: Reports nausea; Denies abdominal pain, constipation, cramping, diarrhea or vomiting Musculoskeletal Musculoskeletal: Denies arthralgias Integumentary/Breasts Skin/Breast: Denies rash Neurologic Neurologic: Denies paresthesias Physical Exam General General appearance: alert and in no apparent distress Head Head exam: atraumatic, normocephalic and normal inspection Eye Eye exam: Present normal appearance, PERRL and EOMI ENT ENT exam: Present mucous membranes moist and normal external ear exam Expanded ENT Exam TM/Canal exam: Bilateral TM: erythema and bulging Nose exam: Absent sinus tenderness Mouth exam: Present normal external inspection; Absent drooling Teeth exam: Present normal inspection Throat exam: Present tonsillar erythema, tonsillomegaly and tonsillar exudate Neck Neck exam: Present normal inspection, full ROM and trachea midline; Absent tenderness, meningismus or lymphadenopathy Chest Chest inspection: Present normal inspection and symmetric chest wall rise; Absent tenderness Respiratory Respiratory exam: Present normal lung sounds bilaterally; Absent respiratory distress, wheezes or stridor Cardiovascular Cardiovascular exam: Present regular rate and normal rhythm; Absent systolic murmur or diastolic murmur Abdominal Exam Abdominal exam: Present soft and normal bowel sounds; Absent distention, tenderness, guarding, rebound or rigidity Extremities Exam Extremities exam: Present normal inspection and normal capillary refill; Absent calf tenderness Back Exam Back exam: Present normal inspection and full ROM; Absent tenderness, CVA tenderness (R) or CVA tenderness (L) Neurological Exam Neurological exam: Present alert, oriented X3 and CN II-XII intact Psychiatric Psychiatric exam: Present normal affect and normal mood Skin Skin exam: Present warm, dry, intact and normal color Medical Decision Making Medical Records Medical records reviewed: No I reviewed the patient's medical records. Ernesto Inquiry Pt receiving controlled substance: No
[2023-11-05 10:57] LABS: Apearance,Urine Clear (Clear); Color,Urine Yellow (Yellow); Glucose,Urine (UA) Negative (Negative); Protein,Urine Negative (Negative); Specific Gravity, Urine 1.025 (1.005-1.030)
[2023-11-05 10:58] LABS: Bilirubin,Urine Negative (Negative); Blood, Urine Trace (Negative); Ketones,Urine Negative (Negative); UTC Leukocyte Esterase,Urine Negative (Negative); UTC Nitrate,Urine Negative (Negative); Urobilinogen,Urine 1 EU/dl (0.2)
--- NOTE | 2023-11-05 10:58 | PC.NURSE ---
Sent urine culture to lab via tube system.
[2023-11-05 11:21] VITALS: BP 124/58; PULSE 59; RESP 18; TEMP 36.3; O2SAT 100
== END 2023-11-05 11:21 | disposition home or self-care (01) ==
PROVIDERS: Emergency Provider Nurse Practitioner Family; PCP Nurse Practitioner Family
DX: N39.0 Urinary tract infection, site not specified (principal); J02.9 Acute pharyngitis, unspecified; M54.59 Other low back pain
CPT/HCPCS: 81003; 87086; 99204; 99212; G0463

== ENCOUNTER 2023-12-12 11:01 | Outpatient (CLI) | payer MEDICARE, SELFPAY ==
[2023-12-12 11:52] LABS: Chloride 110 mmol/L (98-107); Potassium 3.9 mmoL/L (3.5-5.1); Sodium 140 mmol/L (136-145)
[2023-12-12 11:55] LABS: Blood Urea Nitrogen 18 mg/dl (7-17); Calcium 9.2 mg/dl (8.4-10.2); Carbon Dioxide 28 mmol/L (22.0-30.0); Estimated Glomerular Filt Rate 53 ml/min (>60); GFR (African American) 65 ML/MIN (>60); Glucose 115 mg/dl (74-100)
[2023-12-12 11:56] LABS: Anion Gap 5.9 mEq/L (5-15)
== END 2023-12-12 23:59 | disposition home or self-care (01) ==
LOC: LAB 11:02
PROVIDERS: PCP Nurse Practitioner Family; Visit Provider Internal Medicine
DX: I25.10 Atherosclerotic heart disease of native coronary artery without angina pectoris (principal); I10 Essential (primary) hypertension
CPT/HCPCS: 36415; 80048

== ENCOUNTER 2023-12-12 18:20 | Emergency (ER) | payer MEDICARE, SELFPAY ==
[2023-12-12 18:50] VITALS: BP 132/67; PULSE 76; RESP 19; TEMP 36.7; O2SAT 97; BMI 25.7
--- NOTE | 2023-12-12 19:06 | EXP.UTC ---
Discharge Plan Disposition Patient Disposition: Home, Self-Care Condition: Good Prescriptions Prescriptions: No Action fenofibrate 160 mg tablet 160 mg PO DAILY candesartan 16 mg tablet 16 mg PO DAILY amlodipine 10 mg tablet 10 mg PO DAILY aspirin [Adult Low Dose Aspirin] 81 mg tablet,delayed release (DR/EC) 81 mg PO DAILY Qty: 30 2RF Leqvio 284 mg/1.5 mL syringe 284 mg SQ [id number] Qty: 1.5 2RF carvedilol 12.5 mg tablet 12.5 mg PO BID famotidine 40 mg tablet 40 mg PO DAILY levothyroxine 75 mcg tablet 75 mcg PO AM duloxetine [Cymbalta] 60 mg Capsule,Delayed Release(Dr/Ec) 60 mg PO DAILY clonazepam 0.5 mg Tablet 0.5 mg PO HS Rx Instructions: administer 30 minutes before bedtime Referrals Follow up/Referrals: Leroy Gordon APRN [Primary Care Provider] - See instructions Ephraim Marcos DO [Staff Physician] - See instructions (Call office for appointment) Activity Restrictions/Add. Instructions Additional Instructions/Restrictions: Use knee immobilizer as you was instructed in the [facility] Use walker to help you get around until you see Orthopedics and further care under them Over the counter Motrin and/or Tylenol for pain The [facility] will contact you tomorrow for your Venous Doppler make sure to answer the call Follow up with your Family Doctor for further care Clinical Impressions Clinical Impression: Left leg swelling Knee pain Qualifiers: Chronicity: unspecified Laterality: left Qualified Code(s): M25.562 - Pain in left knee Instructions Patient Instructions: DI for Knee Pain, How to Use a Knee Immobilizer Print Language Print Language: Cymro Discharge ED Provider: [place] [facility] [place] General Stated complaint: lower left leg swelling Mode of Arrival: Ambulatory Source of Information: Patient Limitations: No Limitations Time Seen by Provider: 12/12/23 19:06 Description of Symptoms (Recalled from Triage Doc. by RN): PATIENT C/O SWELLING TO LEFT LEG AND ANKLE FOR THE PAST FEW DAYS HEENT Symptoms (Recalled from RN notes): No Resp Symptoms (Recalled from RN notes): No Skin Symptoms (Recalled from RN notes): No MS Symptoms (Recalled from RN notes): Yes Functional Status (Recalled from RN notes): WNL History of Present Illness Provider Complaint: Patient states that she has been having pain in the sides of her knee and the back of her knee and feels like she is having swelling and tightness in her calf area down to her ankle states that she hasnt had any injury that she is scheduled for Chemical stress test tomorrow Related Data Home Medications ?Medication ?Instructions ?Recorded ?Confirmed famotidine 40 mg tablet 40 mg PO DAILY Acid reflux 10/15/22 12/12/23 levothyroxine 75 mcg tablet 75 mcg PO AM Thyroid 10/15/22 12/12/23 carvedilol 12.5 mg tablet 12.5 mg PO BID htn 11/03/22 12/12/23 candesartan 16 mg tablet 16 mg PO DAILY 11/15/22 12/12/23 fenofibrate 160 mg tablet 160 mg PO DAILY 11/15/22 12/12/23 clonazepam 0.5 mg tablet 0.5 mg PO HS 04/05/23 12/12/23 duloxetine 60 mg capsule,delayed 60 mg PO DAILY 04/05/23 12/12/23 release (Cymbalta) amlodipine 10 mg tablet 10 mg PO DAILY 12/06/23 12/12/23 Previous Rx's ?Medication ?Instructions ?Recorded inclisiran 284 mg/1.5 mL 284 mg (1.5 mL) SQ [id number] #1.5 mL 09/30/23 subcutaneous syringe (Leqvio) aspirin 81 mg tablet,delayed 81 mg PO DAILY #30 tabs 12/06/23 release (Adult Low Dose Aspirin) Allergies Allergy/AdvReac Type Severity Reaction Status Date / Time ciprofloxacin [From Cipro] Allergy Unknown Unknown Verified 12/06/23 14:33 allergy reaction codeine Allergy Unknown Unknown Verified 12/06/23 14:33 allergy reaction lisinopril Allergy Unknown Unknown Verified 12/06/23 14:33 allergy reaction Sulfa (Sulfonamide Allergy Unknown Unknown Verified 12/06/23 14:33 Antibiotics) allergy reaction hydralazine Allergy Verified 12/12/23 19:07 naproxen [From Naprosyn] Allergy Verified 12/12/23 19:07 Opioids - Morphine Analogues Allergy Unknown Verified 12/06/23 14:33 allergy reaction prednisone Allergy Verified 12/12/23 19:07 evolocumab AdvReac Severe Difficulty Verified 12/06/23 14:33 [From Lucian Tan] Swallowing Worker's Comp Is this a Worker's Comp case?: No [facility] Disclaimer: The information contained in this section may have been updated after the patient was seen, as this information can be updated by other users. Medical History (Updated 12/12/23 @ 20:35 by Emma Romero APRN) Atypical angina Chronic otitis externa of left ear Eustachian tube dysfunction GERD (gastroesophageal reflux disease) Hypothyroidism CAD (coronary artery disease) Osteoporosis HTN (hypertension) Surgical History Hx of tonsillectomy Hx of cholecystectomy History of back surgery Hx of hysterectomy Family History Other Family history of cancer Family history of heart disease Social History Smoking Status: Never smoker alcohol intake: never substance use type: denies use current occupational status: retired Travel in the last 8 weeks: Inside the [place] ROS Obtained: Yes All systems reviewed & no additional complaints except as documented and Yes Systems reviewed as appropriate & no additional complaints except as documented Constitutional Constitutional: Reports system reviewed and no additional complaints, except as documented and Reports as per HPI ENT Ears, Nose, Mouth, and Throat: Reports system reviewed and no additional complaints, except as documented and Reports as per HPI Cardiovascular Cardiovascular: Reports system reviewed and no additional complaints, except as documented and Reports as per HPI Respiratory Respiratory: Reports system reviewed and no additional complaints, except as documented and Reports as per HPI Gastrointestinal Gastrointestingal: Reports system reviewed and no additional complaints, except as documented and as per HPI Musculoskeletal Musculoskeletal: Reports system reviewed and no additional complaints, except as documented, Reports as per HPI and Reports other Comments: pain in her left knee with swelling in left knee and calf area denies known injury Physical Exam General General appearance: alert and in no apparent distress Respiratory Respiratory exam: Present normal lung sounds bilaterally; Absent respiratory distress or wheezes Cardiovascular Cardiovascular exam: Present regular rate, normal rhythm and normal heart sounds Abdominal Exam Abdominal exam: Present soft and normal bowel sounds; Absent distention or tenderness Expanded Lower Extremity Exam Left: Knee exam: Present tenderness and swelling; Absent ecchymosis, deformity or erythema Lower leg exam: Present normal inspection, full ROM and swelling; Absent tenderness (reports feels tight), ecchymosis, deformity or erythema Ankle exam: Present normal inspection and full ROM; Absent tenderness or swelling Foot/toe exam: Present normal inspection and full ROM Neurovascular/Tendon exam: Present normal capillary refill; Absent pulse deficit, motor deficit or pallor Gait: observed and normal Neurological Exam Neurological exam: Present alert, oriented X3 and normal gait Medical Decision Making Ernesto Inquiry Pt receiving controlled substance: No Ernesto was queried for this patient: No Vital Signs: 12/12/23 18:50 Temperature 98.0 F Temperature Source Oral Pulse Rate [Left Brachial] 76 Respiratory Rate 19 Blood Pressure [Left Arm] 132/67 Blood Pressure Mean [Left Arm] 88 Blood Pressure Source [Left Arm] Automatic Cuff Blood Pressure Position [Left Arm] Sitting 02 Sat by Pulse Oximetry 97 Oxygen Delivery Method Room Air Radiology Data #1: Image(s): Knee Image Reviewed: Yes I have reviewed radiologist's interpretation IMPRESSION: 1. 10 mm sliver of bone posterior to the tibial plateaus on the lateral. It is unclear whether this is acute or chronic fracture.. 2. Tricompartmental joint space narrowing and osteophyte formation consistent with degenerative changes. Joint space narrowing more evident in the medial compartment and patellofemoral compartment. Medical Decision Narrative: Spoke with PCP Leroy Gordon will do xray in [facility] today patient has no discoloration, no warmth, no redness, +Cap refill in left lower leg Patient reports pain in left knee with swelling and swelling/tightness in her calf area Denies known injury and order out patient venous doppler and have results sent to PCP tomorrow xray back see reading above will place in knee immobilzier and patient states has walker at home and follow up with Orthopedic for further examination and testing if needed patient verbalized understanding
--- NOTE | 2023-12-12 19:14 | XR_ITS ---
PROCEDURE INFORMATION: Exam: XR Left Knee Exam date and time: 12/12/2023 7:10 PM Age: 78 years old Clinical indication: Pain; Knee; Left; Additional info: Pain and swelling TECHNIQUE: Imaging protocol: Radiologic exam of the left knee. Views: 3 views. COMPARISON: US ARTERIAL LOWER EXT REST 12/10/2022 1:59 PM FINDINGS: Bones/joints: 10 mm sliver of bone posterior to the tibial plateaus on the lateral. It is unclear whether this is acute or chronic fracture.. Tricompartmental joint space narrowing and osteophyte formation consistent with degenerative changes. Joint space narrowing more evident in the medial compartment and patellofemoral compartment. No dislocation Soft tissues: Normal. IMPRESSION: 1. 10 mm sliver of bone posterior to the tibial plateaus on the lateral. It is unclear whether this is acute or chronic fracture.. 2. Tricompartmental joint space narrowing and osteophyte formation consistent with degenerative changes. Joint space narrowing more evident in the medial compartment and patellofemoral compartment.
[2023-12-12 20:38] VITALS: BP 132/67; PULSE 76; RESP 19; TEMP 36.7; O2SAT 97
== END 2023-12-12 20:42 | disposition home or self-care (01) ==
PROVIDERS: Emergency Provider Nurse Practitioner; PCP Nurse Practitioner Family
DX: I10 Essential (primary) hypertension; M25.562 Pain in left knee; R22.42 Localized swelling, mass and lump, left lower limb
CPT/HCPCS: 36415; 73562; 80048; 99212; 99213; G0463

== ENCOUNTER 2023-12-13 10:58 | Outpatient (CLI) | payer MEDICARE, SELFPAY ==
--- NOTE | 2023-12-13 | CA_ITS ---
APPROVED REPORT Exam: Pharmacologic Technologist: Sandy Hernandez, Ht: 5 ft 5 in Wt: 151 lbs BSA: 1.76 m2 HR: 67 bpm BP: 159/65 mmHg Rhythm: SR Medical History Medications: Amlodipine,,,,, Levothyroxine,,,,, Carvedilol,,,,, ClonAZEPAM,,,,, Famotidine,,,,, Cymbalta,,,,, FeNOfibrate,,,,, Cyclobenzaprine,,,,, ONdansetron,,,,, CaNDESARTAN,,,,, Leqvio,,,,, Cardiac Risk Factors: HTN, FHX of CAD Stress Test Details Test: LEXISCAN HR Resting HR: 71 bpm Max Heart Rate (APMHR): 141 bpm Max HR Achieved: 97 bpm Target HR (85% APMHR): 120 bpm % of APMHR: 69 Recovery HR: 87 bpm BP Resting BP: 159.0/65.0 mmHg Max BP: 159.0/65.0 mmHg Recovery BP: 141.0/63.0 mmHg ECG Resting ECG: SR Stress ECG: No significant ST changes Arrhythmia: None Clinical Exercise duration: 04:00 min Highest Stage Achieved: Stress ECG Conclusion During lexiscan pt experinced dyspnea and nausea. No arrhythmias noted. No significant ST changes. Conclusion: EKG portion unremarkable due to lexiscan infusion. Myoview images reported separately. Test Summary REST . . . . . . . Sitting REST 05:44 . . 71 . 159/ 65 . . Stage 1 01:00 . . 93 . . . . Stage 2 01:00 . . 94 . 144/ 65 . . Stage 3 01:00 . . 93 . 143/ 62 . . Stage 4 01:00 . . 86 . 144/ 62 . Stop exercise at 04:00 RECOVERY 01:00 . . 87 . . . . RECOVERY 02:00 . . 81 . 141/ 63 . . RECOVERY 03:00 . . 80 . 146/ 59 . . RECOVERY 03:57 . . 83 . 139/ 64 . . Electronically signed by : Tiffanie Maravilla MD 12/14/2023 10:48:27
--- NOTE | 2023-12-13 | CA_ITS ---
FINAL REPORT TECHNIQUE: Color Doppler, duplex Doppler and compression sonography of the left lower extremity deep venous systems was performed. CLINICAL HISTORY: left leg bone chip, left leg swelling post excercise. FINDINGS: There is no evidence of deep venous thrombosis from the level of the groin to the calf. The veins are patent and compressible. IMPRESSION: No evidence of deep venous thrombosis left lower extremity. Reviewed, Interpreted and Dictated by Thompson Soria III, MD Transcribed by Liset Schulz Authenticated and [facility]
--- NOTE | 2023-12-13 10:59 | NM_ITS ---
APPROVED REPORT Exam: Nuclear Stress Test Indication: Angina, Syncope, Fatigue, HTN, High cholesterol, Family history Patient Location: Outpatient Stress Tech: Sandy SEXTON Tech:Marianne Anne, ARRT, RT (R)(N) Ht: 5 ft 5 in Wt: 150 lbs Bra Size: C HR: 71 bpm BP: 159/65 mmHg BSA: 1.75 m2 Rhythm: NSR TID: 1.09 BMI: 24.9 History: Angina, Syncope, Fatigue, HTN, High cholesterol, Family history Procedure: Patient received 0.4 mg of intravenous Lexiscan, resting heart rate 71 bpm, resting blood pressure 159/65 mmHg, with Lexiscan maximum heart rate achieved was 97 bpm which is % of the maximum predicted heart rate and blood pressure was 159/65 mmHg. With Lexiscan, patient denied any complaint of chest pain. Cardiac Stress and Resting SPECT Images: Cardiac Stress and Resting SPECT images were obtained using technetium 99m Myoview 32.2 mCi stress and 10.44 mCi at rest. Resting and stress imaging in supine and prone positions demonstrate no evidence of fixed or reversible perfusion defects. Gated imaging demonstrates normal global and regional LV systolic function. LVEF is calculated at 71%. Conclusion: No evidence of fixed or reversible perfusion defects. Gated imaging demonstrates normal global and regional LV systolic function. LVEF is calculated at 71%. Electronically signed by : Tiffanie Maravilla MD 12/14/2023 10:50:22
[2023-12-13] MEDS: SODIUM CHLORIDE 0.9% 10ML SYR (RAD ONLY) 10 ML IV ×2 (12:51)
[2023-12-13] MEDS: REGADENOSON 0.4MG/5ML SYRINGE 0.4 MG IV (12:51)
[2023-12-13] MEDS: ISOTOPE MYOVIEW (PER STUDY) 1 DOSE IV (12:52)
== END 2023-12-13 23:59 | disposition home or self-care (01) ==
PROVIDERS: PCP Nurse Practitioner Family; Visit Provider Internal Medicine
DX: I25.118 Atherosclerotic heart disease of native coronary artery with other forms of angina pectoris (principal); M79.605 Pain in left leg; M79.89 Other specified soft tissue disorders
CPT/HCPCS: 78452; 93017; 93018; 93971; A9502; J2785

== ENCOUNTER 2023-12-22 09:46 | Outpatient (CLI) | payer MEDICARE, SELFPAY ==
--- NOTE | 2023-12-22 09:49 | XR_ITS ---
FINAL REPORT CLINICAL HISTORY: Rt Knee Pain COMPARISON: None FINDINGS: RIGHT KNEE: There is no acute fracture or dislocation. The joint spaces are intact. There is no soft tissue abnormality. IMPRESSION: No acute bony abnormality Reviewed, Interpreted and Dictated by Jimbo Quintero MD Transcribed by Terri Wilcox Authenticated and [facility]
== END 2023-12-22 23:59 | disposition home or self-care (01) ==
LOC: RAD 09:47
PROVIDERS: PCP Nurse Practitioner Family; Visit Provider Physician Assistant
DX: M25.561 Pain in right knee (principal)
CPT/HCPCS: 73562

== ENCOUNTER 2024-02-02 10:23 | Outpatient (CLI) | payer MEDICARE, SELFPAY ==
--- NOTE | 2024-02-02 10:34 | XR_ITS ---
FINAL REPORT CLINICAL HISTORY: INTERVERTEBRAL DISC DISORDER COMPARISON: None FINDINGS: 5 views of the lumbar spine were obtained including flexion and extension views. Alignment is within normal limits. There is moderate disc space narrowing at L3-4 with prominent anterior osteophyte formation. There is moderate facet sclerosis in the mid and lower lumbar spine. There is abnormal loss of height, measuring approximately 10%, at the superior endplate of the L2 and L5 vertebrae. Prevertebral soft tissues are unremarkable. There is no instability with flexion or extension. IMPRESSION: Loss of height superior endplates of L2 and L5. Advanced changes of degenerative disc disease at L3-4. Reviewed, Interpreted and Dictated by Jimbo Quintero MD Transcribed by Teetee Harman Authenticated and [facility]
--- NOTE | 2024-02-02 10:34 | XR_ITS ---
FINAL REPORT CLINICAL HISTORY: LEFT HIP PAIN COMPARISON: None FINDINGS: LEFT HIP: Two views of the left hip with an AP pelvis view demonstrate no acute fracture or dislocation. The joint spaces appear normal. The visualized bony structures are well aligned. No soft tissue abnormality is seen. IMPRESSION: No acute bony abnormality. Reviewed, Interpreted and Dictated by Jimbo Quintero MD Transcribed by Teetee Harman Authenticated and . [facility]
--- NOTE | 2024-02-02 10:34 | XR_ITS ---
FINAL REPORT CLINICAL HISTORY: RIGHT HIP PAIN COMPARISON: None FINDINGS: RIGHT HIP Two views of the right hip demonstrate no acute fracture or dislocation. The joint spaces appear normal. The visualized bony structures are well aligned. No soft tissue abnormality is seen. IMPRESSION: No acute bony abnormality. Reviewed, Interpreted and Dictated by Jimbo Quintero MD Transcribed by Teetee Harman Authenticated and [facility]
== END 2024-02-02 23:59 | disposition home or self-care (01) ==
PROVIDERS: PCP Nurse Practitioner Family; Visit Provider Student in an Organized Health Care Education/Training Program
DX: M51.17 Intervertebral disc disorders with radiculopathy, lumbosacral region (principal); G57.03 Lesion of sciatic nerve, bilateral lower limbs; M47.817 Spondylosis without myelopathy or radiculopathy, lumbosacral region
CPT/HCPCS: 72114; 73502

== ENCOUNTER 2024-05-11 10:59 | Outpatient (CLI) | payer MEDICARE, SELFPAY ==
[2024-05-11] MEDS: INCLISIRAN SODIUM 284 MG/1.5 ML SYRINGE SUBCUT (11:15)
[2024-05-11 11:18] VITALS: BP 148/79; PULSE 82; RESP 18; O2SAT 96
== END 2024-05-11 11:18 | disposition home or self-care (01) ==
LOC: INF 11:01
PROVIDERS: PCP Nurse Practitioner Family; Visit Provider Internal Medicine
DX: E78.5 Hyperlipidemia, unspecified (principal)
CPT/HCPCS: 96372; J1306

== ENCOUNTER 2024-05-25 17:06 | Emergency (ER) | payer MEDICARE, SELFPAY ==
[2024-05-25 18:55] VITALS: BP 155/70; PULSE 76; O2SAT 100
[2024-05-25 19:01] VITALS: BP 155/70; PULSE 78; RESP 18; TEMP 36.6; O2SAT 99; BMI 25.4
--- NOTE | 2024-05-25 19:07 | ED_ITS ---
<Statement entered by Elvi Gale DO - 05/25/24 23:11> I was consulted by the LIAM, and we discussed the complexity of the problems being addressed. I approved the treatment and management plan for this patient's care in the emergency department, thus performing a substantive portion of the medical decision making. Elvi Gale DO I independently interpreted EKG at 1915 and noted normal sinus rhythm with a ventricular rate of 73 bpm. Some motion artifact degrades study. No obvious STEMI. Normal axis Discharge Plan Disposition Patient Disposition: Admitted Condition: Good Prescriptions Prescriptions: No Action fenofibrate 160 mg tablet 160 mg PO DAILY candesartan 16 mg tablet 16 mg PO DAILY amlodipine 10 mg tablet 10 mg PO DAILY coenzyme Q10 [Co Q-10] 200 mg capsule 200 mg PO DAILY carvedilol [Coreg] 6.25 mg tablet 6.25 mg PO BID Qty: 60 2RF Rx Instructions: must administer with a meal/food Leqvio 284 mg/1.5 mL syringe 284 mg SQ [id number] Qty: 1.5 2RF famotidine 40 mg tablet 40 mg PO DAILY levothyroxine 75 mcg tablet 75 mcg PO AM duloxetine [Cymbalta] 60 mg Capsule,Delayed Release(Dr/Ec) 60 mg PO DAILY clonazepam 0.5 mg Tablet 0.5 mg PO HS Rx Instructions: administer 30 minutes before bedtime Referrals Follow up/Referrals: Willy Chanel II, MD [Staff Physician] - See instructions Leroy Gordon APRN [Primary Care Provider] - See instructions Activity Restrictions/Add. Instructions Additional Instructions/Restrictions: Have referred you to Dr. Chanel. You can call on Tuesday to make your appointment. You need to follow-up with your PCP Tuesday for recheck. Return to the ER for any worsening signs or symptoms as needed Clinical Impressions Clinical Impression: Abdominal pain Qualifiers: Abdominal location: generalized Qualified Code(s): R10.84 - Generalized abdominal pain Instructions Patient Instructions: DI for Acute Abdominal Pain Print Language Print Language: Nauruan Discharge ED Provider: Elvi Gale General Adult HPI General Chief complaint: Abdominal Pain Stated complaint: phy ref-abd pain Time Seen by Provider: 05/25/24 19:07 History of Present Illness HPI narrative: Patient presents for evaluation of generalized abdominal pain for several days. Patient reports that she has generalized abdominal discomfort without rebound or guarding or rigidity. Is able to eat and drink has normal bowel movements passing flatus. She denies any chest pain shortness of breath fever chills hemoptysis hematochezia melena nausea vomiting diarrhea. She denies dysuria hematuria vaginal discharge Related Data Home Medications ?Medication ?Instructions ?Recorded ?Confirmed famotidine 40 mg tablet 40 mg PO DAILY Acid reflux 10/15/22 04/18/24 levothyroxine 75 mcg tablet 75 mcg PO AM Thyroid 10/15/22 04/18/24 candesartan 16 mg tablet 16 mg PO DAILY 11/15/22 04/18/24 fenofibrate 160 mg tablet 160 mg PO DAILY 11/15/22 04/18/24 clonazepam 0.5 mg tablet 0.5 mg PO HS 04/05/23 04/18/24 duloxetine 60 mg capsule,delayed 60 mg PO DAILY 04/05/23 04/18/24 release (Cymbalta) amlodipine 10 mg tablet 10 mg PO DAILY 12/06/23 04/18/24 coenzyme Q10 200 mg capsule (Co 200 mg PO DAILY 03/15/24 04/18/24 Q-10) Previous Rx's ?Medication ?Instructions ?Recorded inclisiran 284 mg/1.5 mL 284 mg (1.5 mL) SQ [id number] #1.5 mL 09/30/23 subcutaneous syringe (Leqvio) carvedilol 6.25 mg tablet (Coreg) 6.25 mg PO BID #60 tabs 03/15/24 Allergies Allergy/AdvReac Type Severity Reaction Status Date / Time ciprofloxacin (From Cipro) Allergy Unknown Unknown Verified 04/18/24 12:56 allergy reaction codeine Allergy Unknown Unknown Verified 04/18/24 12:56 allergy reaction lisinopril Allergy Unknown Unknown Verified 04/18/24 12:56 allergy reaction Sulfa (Sulfonamide Allergy Unknown Unknown Verified 04/18/24 12:56 Antibiotics) allergy reaction hydralazine Allergy Verified 04/18/24 12:56 naproxen (From Naprosyn) Allergy Verified 04/18/24 12:56 Opioids - Morphine Analogues Allergy Unknown Verified 04/18/24 12:56 allergy reaction prednisone Allergy Verified 04/18/24 12:56 evolocumab (From Repatha AdvReac Severe Difficulty Verified 04/18/24 12:56 SureClick) Swallowing PFSH PFSH Disclaimer: The information contained in this section may have been updated after the patient was seen, as this information can be updated by other users. Medical History Atypical angina Chronic otitis externa of left ear Eustachian tube dysfunction This is more of a chronic left greater than right ear issue. I do feel it likely relates to allergy seasonal variation. GERD (gastroesophageal reflux disease) Hypothyroidism CAD (coronary artery disease) Osteoporosis HTN (hypertension) Surgical History Hx of tonsillectomy Hx of cholecystectomy History of back surgery Hx of hysterectomy Family History Other Family history of cancer Family history of heart disease Social History Smoking Status: Never smoker alcohol intake: never substance use type: denies use current occupational status: retired Travel in the last 8 weeks: Inside the [place] Have you lived/traveled outside [place] in past 30 days?: No Contact w/someone who lives/traveled outside [place] past 30 days?: No Exposure to someone with infectious disease in past 14 days?: No Do you have a fever (greater than 100.4 F or 38 C)?: No Have you tested positive for COVID-19: No Exposed to someone with COVID-19 in past 14 days?: No Do you have a sore throat?: No Do you have a cough?: No Do you have any weakness?: No Do you have any diarrhea?: No Are you experiencing any unusual bleeding?: No Do you have any muscle aches/pain?: No Do you have any abdominal pain?: Yes Are you experiencing loss of taste or smell?: No Other Medical History Have you received the Flu Vaccine for this season: No Have you received the Pneumonia Vaccine: Yes ROS Obtained: Yes Systems reviewed as appropriate & no additional complaints except as documented Physical Exam General General appearance: alert and in no apparent distress Respiratory Respiratory exam: Present normal lung sounds bilaterally Cardiovascular Cardiovascular exam: Present regular rate Neurological Exam Neurological exam: Present alert and oriented X3 Medical Decision Making Medical Records Medical records reviewed: Yes I reviewed the patient's medical records. Screening: Per USPSTF and CDC recommendations, given the prevalence of disease in our region, it is our hospital?s policy to screen for HIV and viral Hepatitis for all patients aged 18 and over and those with ongoing risk factors. Ernesto Inquiry Pt receiving controlled substance: No Vital Signs: 05/25/24 18:55 05/25/24 19:01 Temperature 97.9 F Temperature Source Oral Pulse Rate 76 Pulse Rate [Apical] 78 Respiratory Rate 18 Blood Pressure 155/70 H Blood Pressure [Left Arm] 155/70 H Blood Pressure Mean [Left Arm] 98 Blood Pressure Source [Left Arm] Automatic Cuff Blood Pressure Position [Left Arm] Sitting 02 Sat by Pulse Oximetry 100 99 Oxygen Delivery Method Room Air Lab Data Lab results reviewed: Yes I reviewed the patient's lab results. Lab Results 05/25/24 17:05: HCV Ab JEAN CLAUDE w/Rflx PCR Qn Negative, HIV Ag/Ab Combo Qual Negative 05/25/24 18:44: Urine Color Yellow, Urine Appearance Clear, Urine pH 6.5, Ur Specific [place] <= 1.005, Urine Protein Negative, Urine Glucose (UA) Negative, Urine Ketones Negative, Urine Blood 1+ A, Urine Nitrate Negative, Urine Bilirubin Negative, Urine Urobilinogen 0.2, Ur Leukocyte Esterase Negative, Urine RBC 5-10, Urine WBC Occasional, Ur Squamous Epith Cells Occasional 05/25/24 19:05: WBC 5.2, RBC 4.66, Hgb 13.6, Hct 39.8, MCV 85.4, MCH 29.2, MCHC 34.2, RDW 12.8, Plt Count 311, MPV 9.6, Neut % (Auto) 58.4, Lymph % (Auto) 30.9, [place] % (Auto) 8.1, Eos % (Auto) 1.4, Baso % (Auto) 0.8, Neut # (Auto) 3.0, Lymph # (Auto) 1.6, [place] # (Auto) 0.4, Eos # (Auto) 0.1, Baso # (Auto) 0.0, PT 10.4, INR 0.94, Sodium 134 L, Potassium 3.7, Chloride 103, Carbon Dioxide 24, Anion Gap 10.7, BUN 12, Creatinine 0.80, Estimated Creat Clear 50, Estimated GFR 69, Est GFR ( Amer) 84, Glucose 112 H, Calcium 9.4, Magnesium 1.7, Total Bilirubin 0.7, AST 52 H, ALT 34, Alkaline Phosphatase 30 L, Total Protein 7.7, Albumin 4.8, Globulin 2.9, Albumin/Globulin Ratio 1.7, Lipase 143 05/25/24 19:05 05/25/24 19:05 Orders (Tests/Meds): ED MEDICATIONS Discontinued Medications Generic Name Dose Route Start Last Admin Trade Name Freq PRN Reason Stop Dose Admin Acetaminophen 1,000 mg 05/25/24 19:13 05/25/24 19:40 Acetaminophen 1,000mg/100ml Vial IV 05/25/24 19:14 1,000 mg ONCE ONE Administration Iopamidol 75 ml 05/25/24 20:15 05/25/24 20:16 Iopamidol-370 (76%);100ml Bottle IV 05/25/24 20:16 75 ml ONCE ONE Administration Ketorolac Tromethamine 15 mg 05/25/24 19:13 05/25/24 19:40 Ketorolac 30mg/Ml Vial IV 05/25/24 19:14 15 mg ONCE ONE Administration Ondansetron HCl 4 mg 05/25/24 19:13 05/25/24 19:40 Ondansetron 4mg/2ml Vial IV 05/25/24 19:14 4 mg ONCE ONE Administration Sodium Chloride 10 ml 05/25/24 20:15 05/25/24 20:16 Sodium Chloride 0.9% 10ml Syr (Rad Only) IV 05/25/24 20:16 10 ml ONCE ONE Administration ORDERS Category Date Time Status CT abdomen pelvis w con Stat Cat Scan 05/25/24 19:14 Completed CBC w/Auto Diff [Complete Blood Count Auto Diff] Stat Lab 05/25/24 19:05 Completed CMP [Comprehensive Metabolic Panel] Stat Lab 05/25/24 19:05 Completed HIV Combo Stat Lab 05/25/24 17:05 Completed Hepatitis C Ab Qual. W/ RFX Stat Lab 05/25/24 17:05 Completed INR [Prothrombin Time INR] Stat Lab 05/25/24 19:05 Completed Lipase Stat Lab 05/25/24 19:05 Completed Magnesium Stat Lab 05/25/24 19:05 Completed UA [Urinalysis and Microscopic] Stat Lab 05/25/24 18:44 Completed Medical Decision Narrative: In summary patient is a 78-year-old female who presents to the emergency department for evaluation of lysed abdominal pain. Patient is hemodynamically stable upon arrival, afebrile with a blood pressure 155/70 heart rate 76 respiratory rate 18 satting at 100% on room air afebrile 97.9. Physical exam is remarkable for mild diffuse abdominal discomfort on palpation without rebound or guarding or rigidity. Bowel sounds normal active. Breath sounds are clear and equal bilaterally to the bases. There is no epigastric abdominal tenderness.. Differential diagnosis includes urinary tract infection versus gastroenteritis versus constipation versus gastritis versus pancreatitis etc. Initial workup will be conducted with hematologic labs urinalysis CT scan abdomen pelvis. Initial interventions include Tylenol Toradol. Initial workup reviewed by me shows her hematologic labs are nonactionable urinalysis is bland and my informal interpretation CT scan abdomen pelvis does not show any acute intra-abdominal processes however does show a subacute L5 vertebral body fracture that does not show any retropulsion. Upon repeat evaluation patient reported mild improvement after initial intervention. Given this we have essentially ruled out any acute or serious explanation for her abdominal discomfort and mild diagnostic uncertainty exists the patient is stable for discharge with close follow-up with her PCP and referral to gastroenterology for further evaluation and care. Verbalized understanding and agreement. Critical Care Critical Care Time Critical Care Time: No
--- NOTE | 2024-05-25 19:11 | ECG_ITS ---
APPROVED REPORT Exam: Resting ECG HR:73 bpm ECG Measurements Heart Rate 73 AXES MS 147 P -86 QRSd 109 QRS 65 QT 421 T 73 QTc 447 Conclusion Sinus rhythm with a ventricular rate of 73 bpm. No acute STEMI. Electronically signed by : EDITH DENSON, 05/25/2024 23:57:03
--- NOTE | 2024-05-25 19:14 | CT_ITS ---
PROCEDURE INFORMATION: Exam: CT Abdomen And Pelvis With Contrast Exam date and time: 05/25/2024 8:15 PM Age: 78 years old Clinical indication: Abdominal pain TECHNIQUE: Imaging protocol: Computed tomography of the abdomen and pelvis with contrast. Radiation optimization: All CT scans at this facility use at least one of these dose optimization techniques: automated exposure control; mA and/or kV adjustment per patient size (includes targeted exams where dose is matched to clinical indication); or iterative reconstruction. Contrast material: ISOVUE; Contrast volume: 75 ml; Contrast route: IV; COMPARISON: CT ANGIO ABDOMEN PELVIS 11/25/2022 9:44 AM FINDINGS: Pleural spaces: Trace bilateral pleural effusions. Liver: Low-density of the liver. Enhancing 11 mm lesion in the right hepatic lobe is unchanged. Enhancing 12 mm lesion in segment 5/6 also unchanged. Gallbladder and biliary ducts: Post cholecystectomy. Pancreas: Unremarkable. Spleen: Unremarkable. Adrenal glands: Unremarkable. Kidneys and ureters: Bilateral renal cysts. Stable left renal cortical calcification. No hydronephrosis. Stomach and bowel: Unremarkable. No bowel obstruction. Appendix: Appendix not definitely visualized, but no inflammatory changes in the right lower quadrant in the expected location of the appendix. Intraperitoneal space: Unremarkable. Vasculature: Overall mild atherosclerotic disease in the abdomen and pelvis. Lymph nodes: Unremarkable. Urinary bladder: Unremarkable as visualized. Reproductive: Post hysterectomy. Bones/joints: Mild L2 and L5 height loss without retropulsion. Soft tissues: Unremarkable. IMPRESSION: 1. No acute findings in the abdomen and pelvis. 2. New mild L5 vertebral body height loss compared to 11/25/2022 without retropulsion, likely subacute. Chronic morphology mild L2 height loss without retropulsion although new compared to 11/25/22. 3. Hepatic steatosis with stable right hepatic hemangiomas. 4. Trace bilateral pleural effusions. COMMENTS: Consistent with the [employer]'s Incidental Findings Committee white paper (J Am Ryan Radiol 2018): Any incidental renal lesion less than 1 cm or classified as too small to characterize, or any incidental cystic renal lesion characterized as simple-appearing, is likely benign. No follow-up imaging is recommended for these lesions per consensus recommendations based on imaging criteria.
[2024-05-25 19:20] LABS: Microscopic, Urine URINE MICROSCOPIC (MICROSCOPIC)
[2024-05-25 19:22] LABS: Basophils % 0.8 % (0.1-2.0); Eosinophils # 0.1 K/mm3 (0.0-0.4); Eosinophils % 1.4 % (0.1-12.0); Hematocrit 39.8 % (37.0-47.0); Hemoglobin 13.6 g/dL (12.2-16.2); Lymphocytes # 1.6 K/mm3 (0.7-4.5); Lymphocytes % 30.9 % (10-50); Mean Corpuscular HGB Conc 34.2 g/dL (31.8-35.4); Mean Corpuscular Hemoglobin 29.2 pg (27.0-31.2); Mean Corpuscular Volume 85.4 fl (81-99); Mean Platelet Volume 9.6 fl (7.4-10.4); Monocytes # 0.4 K/mm3 (0.1-1.0); Monocytes % 8.1 % (1.7-9.3); Neutrophils % 58.4 % (37.0-80.0); Platelet Count 311 K/mm3 (142-424); Red Blood Count 4.66 M/mm3 (4.20-5.40); Red Cell Distribution Width 12.8 % (11.5-17.5); White Blood Count 5.2 K/mm3 (4.8-10.8)
[2024-05-25 19:26] LABS: INR 0.94 (0.9-1.1); Prothrombin Time 10.4 seconds (9.2-12.1)
[2024-05-25 19:33] LABS: Appearance,Urine CLEAR (Clear); Bilirubin,Urine Negative (Negative); Blood, Urine 1+ (Negative); Color,Urine YELLOW (Yellow); Glucose,Urine (UA) Negative (Negative); Ketones,Urine Negative (Negative); Leukocyte Esterase,Urine Negative (Negative); Nitrate,Urine Negative (Negative); PH,Urine 6.5 (5.0-8.5); Protein,Urine Negative (Negative); Specific Gravity, Urine <= 1.005 (1.005-1.030); Urobilinogen,Urine 0.2 EU/dl (0.2)
[2024-05-25] MEDS: ONDANSETRON 4MG/2ML VIAL 4 MG IV (19:40)
[2024-05-25] MEDS: KETOROLAC 30MG/ML VIAL 15 MG IV (19:40)
[2024-05-25] MEDS: ACETAMINOPHEN 1,000MG/100ML VIAL 1000 MG IV (19:40)
[2024-05-25 19:56] LABS: Alanine Aminotransferase 34 U/L (12-78); Albumin Level 4.8 g/dl (3.5-5.0); Alkaline Phosphatase 30 U/L (38-126); Aspartate Amino Transferase 52 U/L (14-36); Bilirubin,Total 0.7 mg/dl (0.2-1.3); Calcium 9.4 mg/dl (8.4-10.2); Carbon Dioxide 24 mmol/L (22.0-30.0); Glucose 112 mg/dl (74-100); Lipase 143 U/L (23-300); Magnesium 1.7 mg/dl (1.6-2.3); Potassium 3.7 mmoL/L (3.5-5.1); Sodium 134 mmol/L (136-145)
[2024-05-25 19:57] LABS: Albumin/Globulin Ratio 1.7 (1.1-1.8); Anion Gap 10.7 mEq/L (5-15); Blood Urea Nitrogen 12 mg/dl (7-17); Chloride 103 mmol/L (98-107); Creatinine Clearance Estimated 50 mL/min (50-200); Estimated Glomerular Filt Rate 69 ml/min (>60); GFR (African American) 84 ML/MIN (>60); Globulin 2.9 g/dL (1.3-3.2); Total Protein,Serum 7.7 g/dl (6.3-8.2)
[2024-05-25 20:01] LABS: Squamous Epithelial Cell,Urine Occasional #/hpf (0-5); WBC,Urine Occasional #/hpf (0-3)
[2024-05-25] MEDS: IOPAMIDOL-370 (76%);100ML BOTTLE 75 ML IV (20:16)
[2024-05-25] MEDS: SODIUM CHLORIDE 0.9% 10ML SYR (RAD ONLY) 10 ML IV (20:16)
[2024-05-25 20:30] LABS: HIV Combo NEGATIVE (Negative)
[2024-05-25 20:37] LABS: Hepatitis C Ab Qual. W/ RFX NEGATIVE (Negative)
--- NOTE | 2024-05-25 21:15 | PC.NURSE ---
assisted pt to restroom.
[2024-05-25 21:27] VITALS: BP 154/70; PULSE 82; RESP 18; TEMP 36.8; O2SAT 97
== END 2024-05-25 21:32 | disposition home or self-care (01) ==
PROVIDERS: Physician Assistant; Emergency Provider Emergency Medicine; PCP Nurse Practitioner Family
DX: R10.84 Generalized abdominal pain (principal)
CPT/HCPCS: 74177; 80053; 81001; 83690; 83735; 85025; 85610; 86803; 87389; 93005; 96374; 96375; 99285; J0131; J1885; J2405; Q9967

== ENCOUNTER 2024-08-10 16:18 | Outpatient (CLI) | payer MEDICARE, SELFPAY ==
--- NOTE | 2024-08-10 16:24 | XR_ITS ---
PROCEDURE INFORMATION: Exam: XR Chest Exam date and time: 08/10/2024 4:25 PM Age: 78 years old Clinical indication: Cough; Additional info: Acute cough TECHNIQUE: Imaging protocol: Radiologic exam of the chest. Views: 2 views. COMPARISON: CR XR CHEST PORTABLE 10/15/2022 1:35 PM FINDINGS: Lungs: Unremarkable. No consolidation. Pleural spaces: Unremarkable. No pleural effusion. No pneumothorax. Heart/Mediastinum: Unremarkable. No cardiomegaly. Bones/joints: Unremarkable. IMPRESSION: No acute findings.
== END 2024-08-10 23:59 | disposition home or self-care (01) ==
LOC: RAD 16:21
PROVIDERS: PCP Nurse Practitioner Family; Visit Provider Nurse Practitioner Family
DX: R05.1 Acute cough (principal)
CPT/HCPCS: 71046

== ENCOUNTER 2024-10-02 13:55 | Outpatient (CLI) | payer MEDICARE, SELFPAY ==
--- NOTE | 2024-10-02 13:58 | XR_ITS ---
FINAL REPORT CLINICAL HISTORY: left knee pain FINDINGS: LEFT KNEE: 4 views of the left knee obtained. There is no acute fracture or dislocation. There is mild degenerative joint disease. There is no soft tissue abnormality. IMPRESSION: No acute osseous abnormality. Degenerative joint disease. Authenticated and [facility]
== END 2024-10-02 23:59 | disposition home or self-care (01) ==
LOC: RAD 13:56
PROVIDERS: PCP Nurse Practitioner Family; Visit Provider Physician Assistant
DX: M17.12 Unilateral primary osteoarthritis, left knee (principal)
CPT/HCPCS: 73564

== ENCOUNTER 2024-11-07 09:17 | Emergency (ER) | payer MEDICARE, SELFPAY ==
[2024-11-07] VITALS (11 sets, daily range): BP systolic 156–210; BP diastolic 60–89; PULSE 62–74; RESP 18–19; TEMP 36.6; O2SAT 96–99; BMI 25.0
--- OUTSIDE RECORDS SUMMARY | 2024-11-07 09:24 | XMS_ITS | Continuity of Care Document ---
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 Plan of Treatment Reminders Order Date Submit Date Provider Last Modified By Organization Details Last Modified Time Details Appointments None recorded. Lab urinalysis, dipstick 2024 025 [facility], [address] [place] [address], [address], 16:55:03 culture, urine 2024 025 [facility], [address] , [place], [address], 23:06:43 Referral None recorded. Procedures None recorded. Surgeries None recorded. Imaging None recorded. Medication Orders cephalexin [address] capsule [address] [facility] [id number], [address] [place] [address] , [place], [address], 16:08:13 Patient TargetsNo targets recorded. Patient InstructionsNo instructions recorded. Reason for Referral None Reported. Results Created Date Observation Date Name Description Value Unit Range Abnormal Flag Note LastModifiedBy Organization Detail LastModifiedTime 11/02/19 25 11/01/2024 urina lysis , dipst ick Leukocytes Negati ve Not Available [address], [address], 11/01/2024 16:03:32 11/02/19 25 11/01/2024 urina lysis , dipst ick Nitrite negati ve Not Available [address], [address], 11/01/2024 16:03:32 11/02/19 25 11/01/2024 urina lysis , dipst ick Urobilinogen .2 Not Available Jim [address], [address], 11/01/2024 16:03:32 11/02/19 25 11/01/2024 urina lysis , dipst ick Protein Negati ve Not Available [address], [address], 11/01/2024 16:03:32 11/02/19 25 11/01/2024 urina lysis , dipst ick pH 6.0 Not Available [address], [address], 11/01/2024 16:03:32 11/02/19 25 11/01/2024 urina lysis , dipst ick Blood Non-He molyze d: Trace Not Available [address], [address], 11/01/2024 16:03:32 11/02/19 25 11/01/2024 urina lysis , dipst ick Specific Buckner 1.010 Not Available [address], [address], 11/01/2024 16:03:32 11/02/19 25 11/01/2024 urina lysis , dipst ick Ketone Negati ve Not Available [address] [place], [address], 11/01/2024 16:03:32 11/02/19 25 11/01/2024 urina lysis , dipst ick Bilirubin Negati ve Not Available [address], [address], 11/01/2024 16:03:32 11/02/19 25 11/01/2024 urina lysis , dipst ick Glucose Negati ve Not Available [address], [address], 11/01/2024 16:03:32 11/02/19 25 11/01/2024 urina lysis , dipst ick Appearance Clear Not Available [address], [address], 11/01/2024 16:03:32 11/02/19 25 11/01/2024 urina lysis , dipst ick Color Pale Yellow Not Available [address], [address], 11/01/2024 16:03:32 10/03/19 25 10/02/2024 XR, knee, 3 view No observ ation record ed. [facility] [address], [place], [address], 10/02/2024 15:58:31 Result Notes None recorded. Problems Name Problem SNOMED Code Status Onset Date Resolution Date Notes Provider Name and Address Organization Details Recorded Time History of polyp of colon 876880149 Active 2017 Leroy Gordon APRN [address], [place], [address] , [place] - [facility] 3 13:43:03 Irritable bowel syndrome 58178447 Active 2015 Leroy Gordon APRN [address], [place], [address] , [place] - [facility] 3 13:43:15 Osteopenia 603877651 Active 2015 Leroy Gordon, HYDROSTATIC TESTER [address], [place], [address] , [place] - [facility] 3 13:43:18 Acid reflux 896971710 Active 2022 Leslye Chaudhry null, [place] - [facility] 4 12:50:11 Essential hypertension 19316947 Active 2016 Leroy Gordon, HYDROSTATIC TESTER [address], [place], [address] , [place] - [facility] 3 13:43:01 Acute bronchitis 98740625 Active 2022 Leslye Chaudhry null, [place] - [facility] 4 12:50:11 Hyperlipidemi a 50308950 Active 2016 Leroy Gordon, HYDROSTATIC TESTER [address], [place], [address] , [place] - [facility] 3 13:43:05 Hypothyroidis m 66220636 Active 2016 Leroy Gordon, HYDROSTATIC TESTER [address], [place], [address] , [place] - [facility] 3 13:43:12 Prediabetes 792182748 Active 2016 Leroy Gordon, HYDROSTATIC TESTER [address], [place], [address] , [place] - [facility] 3 13:43:20 Nocturia 959281457 Active 2023 Ree Dubon, HYDROSTATIC TESTER [address], [place], [address] , [place] - [facility] 4 14:22:42 Vitamin D deficiency 44323670 Active 2016 Leroy Gordon, HYDROSTATIC TESTER [address], [place], [address] , [place] - [facility] 3 13:43:27 Problem Notes None recorded. Procedures Surgical History Date Name Laterality Status Provider Name and Address Organization Details Recorded Time 05/28/19 Medication Reconcilliation completed Anika Vaughn [place] - [facility] 05/28/2024 13:39:47 04/26/20 24 In and Out Catheterization completed Ree Dubon APRN [address], [place], [address], [place] - [facility] 04/26/2024 14:24:58 12/08/19 24 Advance Care Planning completed Concepcion E[place]a [place] - [facility] 12/08/2023 10:30:13 12/08/19 24 Functional Status Assessed completed Concepcion [place]a [place] - [facility] 12/08/2023 10:30:13 03/28/20 23 Most Recent Bone Density completed Leslye Chaudhry [place] - [facility] 04/26/2024 13:00:54 10/19/19 23 Medication Reconcilliation completed Concepcion Espana [place] - [facility] 10/18/2022 10:41:30 10/09/19 23 Date of Last Colonoscopy completed Ree Dubon APRN [address], [place], [address], [place] - [facility] 05/09/2024 08:51:39 10/09/19 23 Colonoscopy completed Leslye Chaudhry [place] - [facility] 04/26/2024 13:02:58 05/02/19 22 Endoscopy completed Concepcion [place]a [place] - [facility] 12/08/2023 10:31:21 06/22/19 19 Medication Reconcilliation completed Fawn Rogers [place] [facility] 06/22/2018 10:23:26 04/28/20 18 Medication Reconcilliation completed Fawn Rogers [place] [facility] 04/28/2018 09:48:45 04/11/20 18 Medication Reconcilliation completed Fawn Rogers [place] [facility] 04/11/2018 14:39:38 02/01/20 18 Date of Last Mammogram completed Leslye Chaudhry [place] - [facility] 04/26/2024 13:00:37 02/01/20 18 Most Recent Mammogram completed Elvira Velarde MD [address], [place], [address], [place] - [facility] 01/31/2018 15:24:08 02/09/20 08 Orthopedic Surgery completed Leslye Chaudhry [place] - [facility] 04/26/2024 13:03:44 02/09/20 08 Back Surgery completed Anika Vaughn [place] - [facility] 05/25/2024 13:33:27 06/17/18 75 Hysterectomy completed Concepcion PINED[place] - [facility] 12/08/2023 10:31:21 06/17/18 75 Adnexal surgery completed Concepcion PINEDA - [facility] 12/08/2023 10:31:21 06/17/18 75 Appendectomy completed Concepcion PINEDA - [facility] 12/08/2023 10:31:21 05/02/18 69 Tonsillectomy completed Concepcion PINEDA - [facility] 12/08/2023 10:31:21 skin cancer completed Fawn PINEDA - [facility] 05/24/2016 15:15:17 Hysterectomy, Total Abdominal completed Fawn PINEDA - [facility] 05/24/2016 15:15:35 Imaging Results None recorded. Procedure Notes None recorded. Medical Equipment None Reported. Allergies Allergen ID Allergen Name Allergen Category Reaction Reaction Severity Criticality Documentation Date Start Date Code Code System Note Provider Name and Address Organization Details Recorded Time 095938 amlodipin e medicatio n nausea Not available Not available 04/28/2018 78492 RxNorm Elvira Velarde MD [facility] [address], [place], [address], [place] - [facility] 8 10:19:28 310823 Repatha medicatio n swelling Not available [facility] 12/14/2022 55775 96 RxNorm Concepcion mason, [place] - [facility] 3 11:14:57 923738 Naprosyn medicatio n Not available Not available Not available 04/26/202420291 2 RxNorm Leslye mason, [place] - [facility] 4 12:49:29 335608 prednison e medicatio n Not available Not available Not available 04/26/2024 8640 RxNorm Leslye mason, [place] - [facility] 4 12:49:36 10318 lisinopri l medicatio n cough Not available Not available 02/06/20162010 16271 RxNorm React ion: cough ; Not Available [facility] 6 09:08:49 50617 Cipro medicatio n hives Not available Not available 02/06/2016201056 3 RxNorm React ion: hives ; Not Available [facility] 6 09:35:17 31658 codeine sulfate medicatio n Not available Not available Not available 02/06/20162008 43004 RxNorm Not Available [facility] 6 10:11:15 90915 Actonel medicatio n Not available Not available Not available 02/06/20162011 42235 3 RxNorm Not Available [facility] 6 10:11:15 37764 Substance with sulfonami de structure and antibacte rial mechanism of action (substanc e) medicatio n Not available Not available Not available 02/06/20162008 90842 8003 SNOMED Not Available [facility] 6 10:11:15 30723 morphine medicatio n myalgias (muscle pain) Not available Not available 09/08/2017 7052 RxNorm shaky all over, pain to neck Elvira Velarde MD [facility] [address], [place], [address], [place] - [facility] 8 14:59:58 Medications Name Sig Start Date Stop Date Status Note LastModified by Organization Details LastModified Time Prescript ion - New active Not Available Not Available No t Available nifedipin e ER 30 mg tablet,ex tended release 24 hr 1 tablet qd 11/13 completed Not Available Not Available Not Available cyclobenz aprine 10 mg tablet Take 1 tablet 3 times a day by oral route as needed. 03/23 completed Not Available Not Available Not Available amoxicill in 500 mg capsule take 1 capsule (500 mg) by oral route 2 times per day for 10 days 07/27 completed Not Available Not Available Not Available methocarb gurpreet 500 mg tablet take 2 tablets (1,000 mg) by oral route 4 times per day 06/29 completed Not Available Not Available Not Available neomycin- polymyxin -hydrocor t 3.5 mg/mL-10, 000 unit/mL-1 % ear solution instill 4 drops into left ear by otic route 3 times per day for 5 days 09/08 completed Not Available Not Available Not Available carvedilo l 6.25 mg tablet Take 1 tablet twice a day by oral route for 30 days. 2024 active Not Available Not Available Not Avai lable prednison e 10 mg tablet 05/31 completed Not Available Not Available Not Available Estrace 2 mg tablet 2mg weekly 11/14 completed Estrace 2 mg oral tablet;R ecorded Status: Recorded on: 11/15/19 14 1:24PM;D iscontin ued Status: Disconti nued on: 11/15/19 14 2:17PM;U ser: genevieve Not Available Not Available Not Available atorvasta tin 20 mg tablet take 1 tablet (20 mg) by oral route once daily 08/12 completed Not Available Not Available Not Available carvedilo l 12.5 mg tablet Take 1 tablet twice a day by oral route. 07/27 completed Not Available Not Available Not Available clonidine 0.1 mg/24 hr weekly transderm al patch Apply 1 patch every week by transder mal route. 10/18 completed Not Available Not Available Not Available cefaclor 500 mg capsule take 1 capsule (500 mg) by oral route every 8 hours for 7 days 10/06 completed cefaclor 500 mg oral capsule; comment: diarrhea (??);Pre scribe Status: Prescrib ed on: 10/03/19 13 5:00PM;D iscontin ued Status: Disconti nued on: 10/07/19 13 11:56AM; User: sinai EspitiaEstSiddharth Completi on: 10/10/19 13;Pharm acyVerif ied: 10/03/19 13 5:00PM Not Available Not Available Not Available loperamid e 2 mg capsule 10/15 completed Not Available Not Available Not Available Proctocor t 30 mg rectal supposito ry insert 1 supposit ory (30 mg) by rectal route once-twi ce daily prn 05/30 completed Proctoco rt 30 mg rectal supposit ory;Landry rded Status: Recorded on: 01/18/20 12 2:32PM;D iscontin ued Status: Disconti nued on: 05/30/19 13 5:20PM;U ser: sinai EspitiaEst. Completi on: 03/18/20 12;Indic ation: Proctiti s - ([id number] 90);Prin bernarda: 01/18/20 12 Not Available Not Available Not Available pravastat in 40 mg tablet 02/22 completed pravasta tin 40 mg oral tablet;R ecorded Status: Recorded on: 05/30/19 13 5:20PM;D iscontin ued Status: Disconti nued on: 02/23/20 13 1:34PM;U ser: glascock r;Indica tion: Mixed Hyperlip idemia - () Not Available Not Available Not Available tizanidin e 4 mg tablet Take by oral route for 30 days. 06/29 completed Not Available Not Available Not Available fluconazo le 150 mg tablet 05/31 completed Not Available Not Available Not Available metoprolo l succinate ER 50 mg tablet,ex tended release 24 hr TAKE 1 TABLET EVERY DAY 06/22 completed Not Available Not Available Not Available hydrocodo ne 5 mg-acetam inophen 325 mg tablet Take 1 tablet twice a day by oral route for 3 days. 02/23 completed Not Available Not Available Not Available meloxicam 15 mg tablet take 1 tablet (15 mg) by oral route once daily 04/07 completed Not Available Not Available Not Available sucralfat e 1 gram tablet 11/13 completed Not Available Not Available Not Available promethaz ine 12.5 mg tablet Take 1 tablet 4 times a day by oral route as needed. 06/29 completed Not Available Not Available Not Available lisinopri l 20 mg tablet take 1 tablet (20 mg) by oral route once daily for 90 days 05/29 completed lisinopr il 20 mg oral tablet;R ecorded Status: Recorded on: 03/11/20 10 4:43PM;D iscontin ued Status: Disconti nued on: 05/29/19 11 2:07PM;U ser: earlywin ec;Est. Completi on: 03/06/20 11;Indic ation: Hyperten courtney - (4019 );Prin bernarda: 03/11/20 10 Not Available Not Available Not Available ondansetr on HCl 4 mg tablet Take 1 tablet every 8 hours by oral route as needed for 3 days. 06/15 completed Not Available Not Available Not Available famotidin e 40 mg tablet Take 1 tablet twice a day by oral route for 30 days. 03/23 completed Not Available Not Available Not Available Medrol (Gregory) 4 mg tablets in a dose pack Take 1 dose pk by oral route as directed . 08/10 completed Not Available Not Available Not Available alendrona te 70 mg tablet 1 tab po once weekly in the morning, at least 30 min before first food, beverage , or medicati on of day 11/01 completed alendron ate 70 mg oral tablet;c omment: Cramping ;Prescri be Status: Prescrib ed on: 01/30/20 13 9:19PM;D iscontin ued Status: Disconti nued on: 11/02/19 14 10:00AM; User: sinai EspitiaEstSiddharth Completi on: 12/26/19 14;Indic ation: Post-Men opausal Osteopor osis - (13.7330 10);Phar Maury fied: 01/30/20 13 9:19PM Not Available Not Available Not Available clonazepa m 0.5 mg tablet 1 tablet every night active Not Available Not Available No t Available Pyridium 100 mg tablet take 1 tablet (100 mg) by oral route 3 times per day after meals for 3 days 08/27 completed Pyridium 100 mg oral tablet;P rescribe Status: Prescrib ed on: 06/20/19 16 10:41AM; Disconti nued Status: Disconti nued on: 08/28/19 16 10:34AM; User: deanna EspitiaEstSiddharth Completi on: 06/23/19 16;Indic ation: Acute cystitis without hematuri a - (595.0); Pharmacy Verified : 06/20/19 16 10:41AM Not Available Not Available Not Available Pyridium 200 mg tablet take 1 tablet (200 mg) by oral route 3 times per day after meals for 2 days 02/11 completed Pyridium 200 mg oral tablet;R ecorded Status: Recorded on: 01/03/20 10 1:50PM;D iscontin ued Status: Disconti nued on: 02/12/20 10 3:26PM;U ser: gillisa; Est. Completi on: 01/05/20 10;Indic ation: Urinary Tract Irritati on - (16.7889 00);Prin bernarda: 01/03/20 10 Not Available Not Available Not Available Zithromax Z-Gregory 250 mg tablet TAKE 2 TABLETS (500 MG) BY ORAL ROUTE ONCE DAILY FOR 1 DAY THEN 1 TABLET (250 MG) BY ORAL ROUTE ONCE DAILY FOR 4 DAYS 08/10 completed Not Available Not Available Not Available penicilli n V potassium 500 mg tablet take 1 tablet (500 mg) by oral route 3 times per day for 5 days 01/26 completed penicill in V potassiu m 500 mg oral tablet;P rescribe Status: Prescrib ed on: 10/07/19 13 11:56AM; Disconti nued Status: Disconti nued on: 01/27/20 13 10:27AM; User: sinai EspitiaEst. Completi on: 10/12/19 13;Pharm acyVerif ied: 10/07/19 13 11:56AM Not Available Not Available Not Available amlodipin e 5 mg tablet take 1 tablet (5 mg) by oral route once daily for 30 days 12/14 completed Not Available Not Available Not Available ciproflox acin 500 mg tablet take 1 tablet (500 mg) by oral route every 12 hours for 7 days 02/11 completed ciproflo xacin HCl 500 mg oral tablet;R ecorded Status: Recorded on: 01/03/20 10 1:50PM;D iscontin ued Status: Disconti nued on: 02/12/20 10 3:26PM;U ser: gillisa; Est. Completi on: 01/10/20 10;Print ed: 01/03/20 10 Not Available Not Available Not Available peg-elect rolyte solution 420 gram oral solution 07/07 completed Not Available Not Available Not Available tramadol 50 mg tablet 06/29 completed Not Available Not Available Not Available amoxicill in 500 mg tablet take 1 tablet (500 mg) by oral route every 12 hours for 10 days 12/07 completed Not Available Not Available Not Available Kenalog 40 mg/mL suspensio n for injection Take 1 mL by injectio n route. 04/07 completed Not Available Not Available Not Available ceftriaxo ne 1 gram solution for injection Take 1 g by injectio n route. 08/12 completed Not Available Not Available Not Available clonidine HCl 0.2 mg tablet Take 1 tablet as needed by oral route as needed for 30 days. 07/14 completed Not Available Not Available Not Available tamsulosi n 0.4 mg capsule Take 1 capsule every day by oral route for 90 days. 08/12 completed Not Available Not Available Not Available ropinirol e 0.25 mg tablet Take 1 tablet twice a day by oral route at bedtime. 2024 active Not Available Not Available Not Avai lable dicyclomi ne 20 mg tablet 06/29 completed Not Available Not Available Not Available diltiazem ER 120 mg capsule,2 4 hr,extend ed release Take 1 capsule every day by oral route as directed for 7 days. 04/11 completed swelling Not Available Not Available Not Available Flagyl 500 mg tablet take 1 tablet (500 mg) by oral route every 12 hours for 7 days 01/26 completed Flagyl 500 mg oral tablet;P rescribe Status: Prescrib ed on: 10/03/19 13 5:00PM;D iscontin ued Status: Disconti nued on: 01/27/20 13 10:27AM; User: sinai Rubin on: 10/10/19 13;Pharm acyVerif ied: 10/03/19 13 5:00PM Not Available Not Available Not Available baclofen 10 mg tablet 1 qd 02/23 completed Not Available Not Available Not Available amlodipin e 10 mg tablet TAKE 1 TABLET (10 MG) BY ORAL ROUTE DAILY 10/05 completed cardiolo gy thinks it is causing edema Not Available Not Available Not Available benzonata te 100 mg capsule Take 1 capsule twice a day by oral route as needed for 5 days, for cough. 08/10 completed Not Available Not Available Not Available gemfibroz il 600 mg tablet take 1 tablet (600 mg) by oral route 2 times per day 30 minutes before morning and evening meal 01/02 completed gemfibro zil 600 mg oral tablet;R ecorded Status: Recorded on: 01/11/20 09 11:26AM; Disconti nued Status: Disconti nued on: 01/03/20 10 1:40PM;U ser: estepl;I ndicatio n: Hypertri glycerid emia - (992) Not Available Not Available Not Available hyoscyami ne 0.125 mg disintegr ating tablet 08/12 completed Not Available Not Available Not Available levothyro xine 50 mcg tablet take 1 tablet (50 mcg) by oral route once daily 02/11 completed levothyr oxine 50 mcg oral tablet;R ecorded Status: Recorded on: 01/11/20 09 11:26AM; Disconti nued Status: Disconti nued on: 02/12/20 10 3:26PM;U ser: estepl;I ndicatio n: Hypothyr oidism - (9477 ) Not Available Not Available Not Available cephalexi n 500 mg capsule take 1 capsule (500 mg) by oral route every 12 hours for 7days 2024 active Not Available Not Available Not Avai lable pantopraz ole 40 mg tablet,de layed release TAKE 1 TABLET BY MOUTH EVERY NIGHT AT BEDTIME active Not Available Not Available No t Available hyoscyami ne sulfate 0.125 mg tablet 04/07 completed Not Available Not Available Not Available WelChol 625 mg tablet 07/14 completed Not Available Not Available Not Available Catapres 0.1 mg tablet Take 1 tablet twice a day by oral route. 04/11 completed Not Available Not Available Not Available neomycin- polymyxin -dexameth 3.5 mg/mL-10, 000 unit/mL-0 .1% eye drops 11/13 completed Not Available Not Available Not Available ropinirol e 0.5 mg tablet 1 tablet qd 11/13 completed Not Available Not Available Not Available ranitidin e 150 mg tablet Take 1 tablet twice a day by oral route. 07/14 completed Not Available Not Available Not Available hyoscyami ne 0.125 mg sublingua l tablet DISSOLVE ONE TO TWO TABLETS UNDER THE TONGUE FOUR TIMES A DAY NEEDED FOR ABDOMINA L PAIN AND BLOATING 06/29 completed pt was advised to d/c by er Not Available Not Available Not Available Synthroid 88 mcg tablet Take 1 tablet every day by oral route. 11/01 completed Not Available Not Available Not Available promethaz ine 25 mg tablet take 1 tablet by oral route every 4 hours as needed for 1 day 11/14 completed prometha zine 25 mg oral tablet;P rescribe Status: Prescrib ed on: 10/03/19 13 5:00PM;D iscontin ued Status: Disconti nued on: 11/15/19 14 1:20PM;U ser: guttmann ;Est. Completi on: 10/04/19 13;Indic ation: Nausea and Vomiting - (16.7870 10);Phar Maury fied: 10/03/19 13 5:00PM Not Available Not Available Not Available valsartan 320 mg tablet Take 1 tablet every day by oral route. active Not Available Not Available No t Available candesart an 16 mg tablet TAKE 1 TABLET BY MOUTH EVERY EVENING 10/05 completed cardio took off this med Not Available Not Available Not Available hydrochlo rothiazid e 12.5 mg capsule Take 1 capsule every day by oral route as directed for 30 days. 07/14 completed Not Available Not Available Not Available Synthroid 75 mcg tablet Take 1 tablet every day by oral route. 2024 active Not Available Not Available Not Avai lable pramipexo le 0.25 mg tablet 10/15 completed Not Available Not Available Not Available raloxifen e 60 mg tablet TAKE ONE TABLET BY MOUTH DAILY 04/07 completed Not Available Not Available Not Available hydroxyzi ne HCl 25 mg tablet take 1/2 to 1 tablet by mouth every night at bedtime active Not Available Not Available No t Available aspirin 81 mg tablet take 1 tablet (81 mg) by oral route once daily 05/30 completed aspirin 81 mg oral tablet;R ecorded Status: Recorded on: 01/11/20 09 11:27AM; Disconti nued Status: Disconti nued on: 05/30/19 13 5:20PM;U ser: estepl Not Available Not Available Not Available hydrochlo rothiazid e 25 mg tablet Take 1 tablet every day by oral route. 06/22 completed Not Available Not Available Not Available mirtazapi ne 15 mg tablet 11/13 completed Not Available Not Available Not Available gabapenti n 100 mg capsule Take 1 capsule 3 times a day by oral route as needed for 90 days. 04/07 completed ortho Not Available Not Available Not Available ergocalci ferol (vitamin D2) 1,250 mcg (50,000 unit) capsule one tab once a week 11/13 completed Not Available Not Available Not Available dexametha sone sodium phosphate 4 mg/mL injection solution Inject 1 mL every day by intramus cular route. 07/27 completed Not Available Not Available Not Available azelastin e 137 mcg (0.1 %) nasal spray USE 1 SPRAY(S) IN EACH NOSTRIL TWICE DAILY 11/13 completed Not Available Not Available Not Available albuterol sulfate HFA 90 mcg/actua tion aerosol inhaler Inhale 2 puffs every 4 hours by inhalati on route. 2024 active Not Available Not Available Not Avai lable hydroxyzi ne HCl 10 mg tablet 1-2 tabs po q6hrs prn 06/29 completed Not Available Not Available Not Available brompheni ramine-ps eudoephed rine-DM 2 mg-30 mg-10 mg/5 mL oral syrup TAKE 8 ML EVERY 4-6 HOURS BY ORAL ROUTE NEEDED. 04/26 completed Not Available Not Available Not Available ondansetr on 4 mg disintegr ating tablet DISSOLVE ONE TABLET BY MOUTH EVERY 8 HOURS NEEDED FOR nausea 12/07 completed Not Available Not Available Not Available cefdinir 300 mg capsule TAKE ONE CAPSULE BY MOUTH TWICE DAILY 12/07 completed Not Available Not Available Not Available dexametha sone sodium phosphate 10 mg/mL injection solution Take 0.5 mL by injectio n route. 04/19 completed Not Available Not Available Not Available losartan 100 mg tablet take 1 tablet (100 mg) by oral route once daily 05/30 completed losartan 100 mg oral tablet;R ecorded Status: Recorded on: 07/12/19 12 4:21PM;D iscontin ued Status: Disconti nued on: 05/30/19 13 5:20PM;U ser: earlywin ec;Est. Completi on: 07/07/19 13 Not Available Not Available Not Available doxycycli ne hyclate 100 mg tablet 06/29 completed Not Available Not Available Not Available dicyclomi ne 10 mg capsule Take 1 capsule as needed by oral route for 30 days. 07/27 completed Not Available Not Available Not Available naproxen 500 mg tablet take 1 tablet by oral route 2 times a day as needed for 30 days 05/30 completed naproxen 500 mg oral tablet;R ecorded Status: Recorded on: 09/13/19 12 1:27PM;D iscontin ued Status: Disconti nued on: 05/30/19 13 5:20PM;U ser: gillisa; Est. Completi on: 10/13/19 12;Indic ation: Pain - ([phone] 00);Prin bernarda: 09/13/19 12 Not Available Not Available Not Available metoclopr amide 10 mg tablet TAKE ONE TABLET BY MOUTH EVERY 6 HOURS NEEDED 11/13 completed Not Available Not Available Not Available amoxicill in 875 mg-potass ium clavulana te 125 mg tablet 08/12 completed Not Available Not Available Not Available simethico ne 80 mg chewable tablet Take 1 tablet 3 times a day by oral route as needed for 10 days. 07/10 completed Not Available Not Available Not Available neomycin- polymyxin -hydrocor t 3.5 mg-10,000 unit/mL-1 % ear drops,yessy p instill 4 drops into affected ear(s) by otic route 3 times per day for 10 days 08/10 completed Not Available Not Available Not Available Augmentin 875 mg tablet Take 1 tablet every 12 hours by oral route. 08/12 completed Not Available Not Available Not Available Estrace 0.01% (0.1 mg/gram) vaginal cream insert 1 gram by vaginal route twice weekly 06/22 completed Not Available Not Available Not Available olmesarta n 20 mg tablet Take 1 tablet every day by oral route. 11/13 completed Not Available Not Available Not Available ezetimibe 10 mg tablet 08/12 completed Not Available Not Available Not Available cyclobenz aprine 5 mg tablet 11/13 completed Not Available Not Available Not Available Restasis 0.05 % eye drops in a dropperet te 07/14 completed Not Available Not Available Not Available rosuvasta tin 20 mg tablet take 1 tablet (20 mg) by oral route once daily 12/07 completed Not Available Not Available Not Available Crestor 10 mg tablet take 1 tablet (10 mg) by oral route once daily 05/30 completed Crestor 10 mg oral tablet;R ecorded Status: Recorded on: 01/03/20 10 1:40PM;D iscontin ued Status: Disconti nued on: 05/30/19 13 5:20PM;U ser: brook ec Not Available Not Available Not Available nitrofura ntoin monohydra te/macroc rystals 100 mg capsule Take 1 capsule twice a day by oral route for 10 days. 05/25 completed Not Available Not Available Not Available duloxetin e 20 mg capsule,d elayed release 1 tablet qd active Not Available Not Available No t Available duloxetin e 60 mg capsule,d elayed release 1 tablet every day 05/25 completed Not Available Not Available Not Available Tricor 145 mg tablet take 1 tablet (145 mg) by oral route once daily 11/01 completed Tricor 145 mg oral tablet;R ecorded Status: Recorded on: 03/15/20 11 1:04PM;D iscontin ued Status: Disconti nued on: 11/02/19 14 10:00AM; User: earlywin ec Not Available Not Available Not Available Vesicare 10 mg tablet take 1 tablet (10 mg) by oral route once daily for 30 days 10/02 completed Vesicare 10 mg oral tablet;R ecorded Status: Recorded on: 01/27/20 12 5:02PM;D iscontin ued Status: Disconti nued on: 10/03/19 13 4:36PM;U ser: [email or web address] ;Est. Completi on: 07/26/19 13;Indic ation: Bladder Hyperact ivity - (10.5965 10);Prin bernarda: 01/27/20 12 Not Available Not Available Not Available fenofibra te 160 mg tablet TAKE ONE TABLET DAILY active Not Available Not Available No t Available pregabali n 25 mg capsule Take 1 capsule every day by oral route for 30 days. 08/12 completed Not Available Not Available Not Available chlorhexi dine gluconate 0.12 % mouthwash 08/12 completed Not Available Not Available Not Available cyanocoba deonna (vitamin B-12) 08/12 completed Not Available Not Available Not Available MoviPrep 100 gram-7.5 gram-2.69 1 gram oral powder packet 05/24 completed Not Available Not Available Not Available Fish Oil 1,000 mg capsule take by oral route 3 times a day 06/29 completed stopped nausea Not Available Not Available Not Available Bystolic 10 mg tablet Take 1 tablet every day by oral route. 06/29 completed Not Available Not Available Not Available nebivolol 2.5 mg tablet Take 1 tablet every day by oral route for 30 days. 08/12 completed Not Available Not Available Not Available nebivolol 5 mg tablet Take 1 tablet every day by oral route as directed . 12/07 completed Not Available Not Available Not Available Trilipix 135 mg capsule,d elayed release take 1 capsule (135 mg) by oral route once daily 03/15 completed Trilipix 135 mg oral capsule, delayed release( DR/EC);R ecorded Status: Recorded on: 01/03/20 10 1:40PM;D iscontin ued Status: Disconti nued on: 03/15/20 11 1:04PM;U ser: earlywin ec Not Available Not Available Not Available Vitamin D3 125 mcg (5,000 unit) tablet Take 1 tablet every day by oral route. 06/29 completed per Endo pt stopped due to nausea Not Available Not Available Not Available Jennifer Allergy 180 mg tablet Take 1 tablet every day by oral route. 2024 active Not Available Not Available Not Avai lable Myrbetriq 25 mg tablet,ex tended release Take 1 tablet every day by oral route for 30 days. 08/16 completed Not Available Not Available Not Available Vascepa 1 gram capsule 11/13 completed Not Available Not Available Not Available Flonase Allergy Relief 50 mcg/actua tion nasal spray,yessy pension inhale 2 puffs by nasal route daily for 30 days 10/17 completed Flonase Allergy Relief 50 mcg/actu ation nasal spray,pereira spension ;Prescri be Status: Prescrib ed on: 06/20/19 10:40AM; User: [email or web address] ;Est. Completi on: 10/18/19 16;Pharm acyVgloriaf ied: 06/20/19 10:40AM Not Available Not Available Not Available Folinic-P arin 4 mg-50 mg-2 mg tablet Take 1 tablet every day by oral route. 2024 active Not Available Not Available Not Avai lable Repatha SureClick 140 mg/mL subcutane ous pen injector Inject 140 mg every 2 weeks by sub-q route as directed for 84 days. 12/14 completed Not Available Not Available Not Available Citrucel qd 06/29 completed Not Available Not Available Not Available Restasis MultiDose 0.05 % eye drops prn 08/12 completed Not Available Not Available Not Available Fluzone High-Dose 1875-1219 (PF) 180 mcg/0.5 mL intramusc ular syringe 04/07 completed Not Available Not Available Not Available magnesium 200 mg (as magnesium oxide) chewable tablet Take 1 tablet every day by oral route. 10/15 completed Not Available Not Available Not Available Leqvio 284 mg/1.5 mL subcutane ous syringe active Not Available Not Available Not Available Vitals Date Recorded Body height Body mass index (BMI) Body weight Respiratory rate Oxygen saturation Oxygen saturation in Arterial blood by Pulse oximetry Heart rate Systolic And Diastolic Provider Name and Address Organization Details Last Updated DateTime 5 160.02 cm 27.1 kg/m2 34798.6 3 g 18 /min 98 % 98 % 80 /min 158/82 mm[Hg] Concepcion Espana [place] - [facility] 16:02:22 Social History Question Answer Notes LastModified by Organizat ion Details LastModified Time Tobacco Smoking Status Never Smoker Fawn mason, [place] - [facility] 05/24/2016 15:10:12 Able To Swim? Yes Information not available 05/24/2016 Do You Have An Advance Directive? Yes Information not available 05/25/2024 Do You Wear A Helmet When Biking? Yes Information not available 05/24/2016 Are You Blind Or Do You Have Difficulty Seeing? No Information not available 05/24/2016 Is Blood Transfusion Acceptable In An Emergency? Yes [email or web address] Information not available 04/26/2024 What Is Your Level Of Caffeine Consumption? Occasional Information not available 10/15/2022 How Much Tobacco Do You Chew? None Information not available 05/25/2024 In The 14 Days Before Symptom Onset, Have You Had Close Contact With A Laboratory-confi rmed COVID-19 While That Case Was Ill? No Information not available 12/14/2022 In The 14 Days Before Symptom Onset, Have You Had Close Contact With A Person Who Is Under Investigation For COVID-19 While That Person Was Ill? No Information not available 12/14/2022 Have You Been To An Area Known To Be High Risk For COVID-19? No Information not available 12/14/2022 Are You Deaf Or Do You Have Serious Difficulty Hearing? No Information not available 05/24/2016 What Type Of Diet Are You Following? REGULAR [email or web address] Information not available 04/26/2024 Which Illicit Or Recreational Drugs Have You Used? None Information not available 05/25/2024 Have You Processed Blood Or Body Fluids From An Ebola Virus Disease Patient Without Appropriate PPE? No Information not available 12/14/2022 Do You Reside In Or Have You Traveled To An Area Where Ebola Virus Transmission Is Active? No Information not available 12/14/2022 What Is The Highest Grade Or Level Of School You Have Completed Or The Highest Degree You Have Received? [id number] [email or web address] Information not available 04/26/2024 Swimming/diving Yes Informati on not available 05/24/2016 Have There Been Any Changes To Your Family Or Social Situation? No Information not available 10/15/2022 What Is The Fluoride Status Of Your Home? Fluoridated [email or web address] Information not available 04/26/2024 Hard Of Hearing Or Deaf In One Or Both Ears? No Information not available 05/24/2016 Have You Recently Or Are You Planning To Travel To An Area With Zika Virus? No [email or web address] Information not available 04/26/2024 How Many Years Have You Used Illicit Or Recreational Drugs? 0 Information not available 05/25/2024 Legally Blind In One Or Both Eyes? No Information not available 05/24/2016 Do You Have A Medical Power Of Schedule Maker? No Information not available 10/15/2022 What Was The Date Of Your Most Recent Tobacco Screening? 06/15/2024 Information not available 06/15/2024 How Many Children Do You Have? 20 Information not available 05/25/2024 Do You Use Protection During Sex? Always [email or web address] Information not available 04/26/2024 Do You Use Protection Against STDs? No Information not available 05/25/2024 What Is Your Relationship Status? Information not available 05/24/2016 Do You Use Your Seat Belt Or Car Seat Routinely? Yes Information not available 05/25/2024 Seat Belts Used Routinely Yes Information not available 05/24/2016 Are You Sexually Active? No None Since Information not available 04/26/2024 Smoke Alarm In Home Yes Information not available 05/24/2016 Do You Have Smoke And Carbon Monoxide Detectors In Your Home? Yes Information not available 10/15/2022 Are You Passively Exposed To Smoke? No Information not available 10/15/2022 Do You Use Sunscreen Routinely? No Information not available 05/25/2024 Has Tobacco Cessation Counseling Been Provided? Yes [email or web address] Information not available 02/23/2023 On What Date Was Tobacco Cessation Counseling Provided? 04/26/2024 Information not available 04/26/2024 Do You Have Difficulty Walking Or Climbing Stairs? No Information not available 05/24/2016 What Contraceptive Method Was Reported At Start Of This Visit? Female Sterilization [email or web address] Information not available 04/26/2024 Do You Want To Talk About Contraception Or Prevention During Your Visit Today? No - I Do Not Want To Talk About Contraception Today Because I Am Here For Something Else [email or web address] Information not available 04/26/2024 Do You Have Any Future Plans To Get ? No, I Don't Want To Become [email or web address] Information not available 04/26/2024 Sex: Female Functional Status Question Answer Note LastModified by Organizat ion Details LastModified Time Do you use any illicit or recreational drugs? No Information not available 10/15/2022 Do you or have you ever used any other forms of tobacco or nicotine? No Information not available 10/15/2022 What is your level of alcohol consumption? None Information not available 05/24/2016 Are you currently employed? No Information not available 05/24/2016 Do you have transportation difficulties? No Information not available 12/14/2022 What is your status? Not [email or web address] Information no t available 04/26/2024 Are you able to walk? [email or web address] Information not available 12/14/2022 Do you have difficulty doing errands alone? No Information not available 05/24/2016 Are you able to care for yourself? Yes Information n ot available 05/24/2016 Do you have difficulty dressing or bathing? No Information not available 05/24/2016 Do you or have you ever used e-cigarettes or vape? Never used electronic cigarettes Information not available 05/25/2024 What is your exercise level? Moderate Information not available 05/25/2024 Mental Status Question Answer Note LastModified by Organizat ion Details LastModified Time Do you feel stressed (tense, restless, nervous, or anxious, or unable to sleep at night)? [id number] Information not available 04/26/2024 Do you have difficulty concentrating, remembering or making decisions? No Information no t available 05/24/2016 Family History Relationship Description Onset Age of this Age Resolved Age Notes LastModified by Organization Details LastModified Time Father Hypertensive disorder [email or web address] Not available 2023 10:31:07 Father Heart disease 60 87 [email or web address] Not available 2023 10:31:07 Mother Cerebrovascu lar accident cbuckler Not available 12/2023 10:31:08 Mother Dementia [email or web address] Not available 12/08/2023 10:31:08 Daughter Asthma cbuckler Not available 12/08/2023 10:31:08 Brother Malignant neoplastic disease [email or web address] Not available 2023 10:31:08 Brother Chronic obstructive pulmonary disease Not available 04/26 12:54:14 Brother Malignant neoplasm of lung Not available 04/26 12:54:20 Brother Malignant melanoma [email or web address] Not available 2024 13:23:08 Maternal Aunt Hypercholest erolemia cbuckler Not available 2023 10:31:08 Maternal Grandmother Malignant tumor of colon cbuckler Not available 2023 10:31:08 Sister Chronic obstructive pulmonary disease [email or web address] Not available 2023 10:31:08 Sister Malignant neoplastic disease [email or web address] Not available 2023 10:31:08 Sister Malignant neoplasm of lung cbuckler Not available 2023 10:31:08 Sister Arthritis cbuckler Not availabl e 12/08/2023 10:31:08 Sister Hypertensive disorder [email or web address] Not available 04/26 12:53:31 Sister Neoplasm of brain stem [email or web address] Not available 05/25 13:23:08 Medical History Condition Response Pancreatitis N Coronary Artery Disease N Other N Gout N Atrial Fibrillation N congenital heart disease N Blood Diseases N Kidney Stones N Hyperthyroidism Y Blood Transfusion N Rheumatoid arthritis N Erectile Dysfunction N amputation N Colonoscopy N Skin Lesions N COPD N Depression N Pneumonia N Incontinence N Murmur N Edema N Alzheimer's Disease N Migraine Headaches N Tobacco Abuse N Anxiety Disorder N Hemorrhoids N Muscle, Joint, or Bone Problems Y Obesity N Vision or Eye Problems Y Arthritis Y Restless Leg Syndrome N Polyps N Infertility N Mental Disorder N Carpal Tunnel N Acid Reflux (GERD) Y Cancer N Varicosities N Stroke N Tendonitis N Crohn's Disease N Hypercholesterolemia Y Skin Cancer Y Headaches N Fibromyalgia N Anal Fissure N Irritable Bowel Syndrome Y Kidney Disease N Heart Problems Y Ear or Hearing Problems N Hospitalizations N Gallstones N Kidney or Bladder Problems Y Goiter N Acne N Skin Problems Y Eating Disorder N Craig's Esophagus N Hypertriglyceridemia N MRSA exposure N Constipation Y Embolism N Vitamin B12 Deficiency N Deviated Septum N Tuberculosis N AIDS/HIV N Myocardial Infarction N Asthma N Mitral Valve Disorders N Vertigo N Hepatitis N Thyroid Cancer N Neuropathy Y Pulmonary Embolism N History of DVT N Herniated Disc N Chronic Ear Infections N Chicken Pox N Autism Spectrum Disorder (ASD) N Von Willebrands Disease N Thrombophilias N Breast Cancer N Hernia N Plantar Fasciitis N Hospital Admission Other Than N Lung Disease N Hypothyroidism Y Defects or Inherited Disease N Developmental or Behavioral Disorders N Breast Problem N Difficulty Swallowing N Ovarian Cyst Y Anesthesia Complications N Testosterone Deficiency N Meniere's disease N Head Injury/Concussion N Interstitial Cystitis N Congenital Anomalies N Hypoglycemia N Blood clot N Vitamin D Deficiency N Cellulitis N Endometriosis Y Fracture Y Bladder or Kidney Problems N Liver Disease N Panic Disorder N Schizophrenia N Concussion N Spina Bifida N Allergies/Hayfever Y Osteoarthritis N Parkinson's Disease N Disc Protrusion N STI N Esophagitis N Angina N Thyroid Problems Y GI Problems N ADD/ADHD N Anemia N Multiple Sclerosis N Abnormal PAP N Lumbago N Mental Illness N Psychiatric Illness N Diabetes N Ovarian Cancer N Bedwetting N Degenerative Disc Disease Y Seizures/Epilepsy N Congestive Heart Failure (CHF) N Hyperlipidemia Y Syncope N Insomnia Y Eczema N Abuse/Domestic Violence N Attention Deficient Disorder N Diverticulitis N Dementia N Ulcerative colitis N Cerebrovascular Disease N Depression N Guillain-[place] N Sleep Apnea N Aneurysm N Bronchitis N Heart Disease Y Suicidal Ideation N Pre-Eclampsia N Hypertension Y Osteoporosis N Gynecological History Statement/Question Response Abnormal Pap N Date of Last Mammogram 01/31/2018 Date of LMP 06/15/1974 Post Menopausal Bleeding N STIs/STDs N HPV Vaccine N Duration of Flow (days) 5 Most Recent Mammogram 01/31/2018 Current Control Method Hysterectom y Age at Menarche 12 If Post Menopausal, Age at Menopause 28 Date of Last Colonoscopy 10/08/2022 Frequency of Cycle (Q days) 0 Most Recent Bone Density 03/28/2023 Sexually Active? N Menses Monthly N Date of Last Pap Smear Sexual Problems? N LMP Unknown Desired Control Method Hysterectom y Hormone Replacement Therapy Y Obstetrics History GPAL:G 0 P 0 0 0 0 Type Value Full Term 0 Living 0 Total 0 Immunizations Vaccine Type Date Status Note Provider Nam e and Address Organization Details Recorded Time Influenza, high-dose, trivalent, PF 4 completed Anika Vaughn null, [place] - [facility] 03/23/2024 08:41:18 Influenza, split virus, quadrivalent, preservative 7 completed Not Available [facility] 05/19/2019 03:54:44 influenza, unspecified formulation 0 completed Not Available [facility] 04/19/2023 15:39:27 influenza, unspecified formulation 1 completed Not Available [facility] 04/19/2023 15:39:27 influenza, unspecified formulation 3 completed Not Available [facility] 02/09/2016 09:11:04 influenza, unspecified formulation 5 completed Not Available [facility] 04/19/2023 15:39:27 Influenza, high-dose, quadrivalent, PF 3 completed Concepcion E[place] null, [place] - [facility] 03/22/2023 13:46:41 zoster recombinant 3 completed Concepcion [place], [place] - [facility] 04/19/2023 16:07:46 Influenza, split virus, quadrivalent, preservative 8 completed Not Available [facility] 04/19/2023 15:39:27 Influenza, high-dose, quadrivalent, PF 2 completed Concepcion [place], [place] - [facility] 06/29/2022 10:11:59 Influenza, high-dose, quadrivalent, PF 1 completed Concepcion [place], [place] - [facility] 06/29/2022 10:11:59 COVID-19, mRNA, LNP-S, PF, 100 mcg/0.5mL dose or 50 mcg/0.25mL dose 1 completed Concepcion [place], [place] - [facility] 06/29/2022 10:11:59 pneumococcal polysaccharide PPV23 9 completed Concepcion [place], [place] - [facility] 06/29/2022 10:11:59 Tdap 4 completed Concepcion [place], [place] - [facility] 06/29/2022 10:11:59 Pneumococcal conjugate PCV 13 0 completed Concepcion [place] null, [place] - [facility] 06/29/2022 10:11:59 Influenza, high-dose, trivalent, PF 9 completed Concepcion [place], [place] - [facility] 06/29/2022 10:11:59 zoster recombinant 4 completed Anika Stears null, [place] - [facility] 11/14/2023 14:08:03 Pneumococcal Conjugate, unspecified formulation 3 completed Anika Stears null, [place] - [facility] 12/08/2023 13:48:07 Past Encounters Encounter ID Performer Location Encounter Start Date Encounter Closed Date Diagnosis/Indication Diagnosis SNOMED-CT Code Diagnosis ICD10 Code Diagnosis Note [id number] Leroy Gordon [address] [address] 10/05/2024 08:08:17 10/05/2024 09:28:20 Localized edema 155308827 R60.0 Hypothyroidism 17985358 E03.8 Coronary atherosclerosis 385380457 I25.10 Mixed hyperlipidemia 267 089037 E78.2 Essential hypertension 83069451 I[address] Moreno- sent pt to his office to be seen nowif any issues or concerns returnmoni tor bp at home bring in log [id number] Leroy Gordon [address] [address] 10/16/2024 10:16:42 10/16/2024 11:35:48 Restless legs 02830357 G25.81 discussed medif worsen or no improvemen t return [id number] Leroy Gordon [address] [address] 10/25/2024 08:00:53 10/25/2024 08:45:32 Coronary atherosclerosis 363284562 I25.10 Restless legs 98032680 G 25.81 discussed medif worsen or no improvemen t return [id number] Leroy Gordon [address] [place] [address] 11/01/2024 15:22:37 11/01/2024 16:29:08 Acute urinary tract infection 720025533 N39.0 return 3 days after finishing antibiotic s for new ua with cxincrease fluidscran christopher juicewipe front to backvoid after intercours ollie not hold urineantib iotics as orderedcot ton underwearr eturn if symptoms worsen or do not improve Health Concerns Section Related Observation LastModified by Organization Detai ls LastModified Time None Recorded Concern Status LastModified by Organization Details LastModified Time None Recorded Payers Encounter Date Sequence Insurance Name Policy Number Policy Calderon Covered Member ID Calderon Member ID Guarantor Name 11/01/2024 1 [employer] (MEDICARE REPLACEMENT/A DVANTAGE - PPO) Leia Moreira [id number] Leia Moreira Notes Date Note Type Note Provider Name and Address Organization Details Recorded Time 11/01/2024 text/html 79 yr old female presents for a possible uti. She has pressure and burning with urination and IBS/diarrhea. denies fever Leroy Gordon, [employer] [address], [place], [address], [place] - [facility] 11/01/2024 16:19:18 OBGyn Episode No OBEpisode recorded.
--- OUTSIDE RECORDS SUMMARY | 2024-11-07 09:25 | XMS_ITS | Continuity of Care Document ---
Author Organization JAYNA MARESTHUY OD Address [facility] [place] [address] Phone Care Team Providers Care Assignment Editor Name Role Phone Na Ang MD Unavailable [phone] Encounters Date Type Department Care Team Description 5 1:00 PM EDT Office Visit SEP Ophthalmology Cov [address] [place] [phone] Na Ang MD Pseudophakia (Primary Dx); Bilateral ocular hypertension; Optic neuropathy, left 5 Telephone [facility] Ophthalmology [facility] [address] [address] Na Ang MD Other (Confirmation Call.) 4 1:20 PM EDT Office Visit [facility]P Ophthalmology [facility] [address] [address] Na Ang MD Keratitis sicca, bilateral (HCC) (Primary Dx) 4 11:00 AM EDT Office Visit [facility]P Ophthalmology [facility] [address] [address] Na Ang MD Optic neuropathy, left (Primary Dx); Bilateral ocular hypertension 3 Patient Outreach SEP VBP [address] [place] [address] Marlyn Mendez, Metals Sales Representative Medication Management (Statin Non-adherence) 3 Travel 3 1:50 PM EDT Office Visit SEP Ophthalmology Cov [address] [place] [address] Na Ang MD Keratitis sicca, bilateral (HCC) (Primary Dx); Pseudophakia; Bilateral ocular hypertension; Optic neuropathy, left 3 Patient Outreach SEP VBP [address] [place] [phone] Janet Vogt MD Central Order Completion Outreach (DEXA) 3 Telephone SEP Ophthalmology Cov [address] [place] [address] aN Ang MD Other (Appt Reschedule) 3 Telephone SEP Ophthalmology Cov [address] [place] [address] Na Ang MD Other (Appt Reschedule) 3 Patient Outreach SEP VBP [facility] [address] [place] [address] Lon Victoria CPhT Medication Management (Clinical Trichologist: editorial project manager [phone] ) 3 Patient Outreach SEP VBP [address] [place] [address] Lon Victoria CPhT Medication Management (Clinical Trichologist: editorial project manager [phone] ) 3 Patient Outreach SEP VBP [address] [place] [address] Lon Victoria CPhT Medication Management (Clinical Superior Court Judge: editorial project manager [phone]) 3 Refill SEP GASTRO [facility] [address] [place] [place] [address] Gerardo Purcell MD Medication Refill 3 Refill SEP [facility] Care [address] [place] [address] Janet Vogt MD Medication Refill 3 Refill SEP GASTRO [facility] [address] [place] [address] Gerardo Purcell MD Medication Refill 3 Orders Only SEP VBP [address] [place], [place] [id number] Chen Cano RN Hospital discharge follow-up (Primary Dx) 3 Telephone SEP H&V [address] [address] Kendy Biggs, DO Hypertension 3 2:45 PM EDT Office Visit [facility] [address] [address] Oumar Alves MD Spinal stenosis of lumbar region without neurogenic claudication (Primary Dx); DDD (degenerative disc disease), lumbar; Lumbar pain 3 Telephone SEP [facility] [address] [address] Janet Vogt MD Appointment Needed (ED fu ) 3 Telephone SEP Ft. [address] [address] Janet Vogt MD Symptom Call 3 1:45 PM EDT Ancillary Procedure [facility] [address] [address] Oumar Alves MD Cervical pain 3 1:30 PM EDT Office Visit [facility] [address] [address] Oumar Alves MD Spinal stenosis of lumbar region without neurogenic claudication (Primary Dx); Cervical pain; Bilateral leg pain; DDD (degenerative disc disease), lumbar; Trochanteric bursitis of right hip 3 2:45 PM EDT Office [place] [address] Kendy Biggs DO Nonobstructive atherosclerosis of coronary artery (Primary Dx); Essential hypertension; Heart murmur; Dyslipidemia; Uncontrolled hypertension 3 Travel 3 8:41 AM EDT - 3 11:59 PM EDT Hospital Encounter [facility] [place] [address] Gerardo Purcell MD Gastroesophageal reflux disease with esophagitis without hemorrhage Discharge Disposition: Home or Self Care 3 [place] [address] Kendy Biggs DO Medication Refill 3 1:45 PM EDT Office Visit SEP SPINE [address] [place] [address] Pebbles Will APRN Primary osteoarthritis of right knee (Primary Dx); Lumbar radiculopathy; Neuropathic pain; Myofascial pain; Sacroiliitis; Pain in both lower extremities; Chronic pain of right thumb; Spondylosis of lumbosacral region without myelopathy or radiculopathy; DDD (degenerative disc disease), lumbar 3 Telephone SEP GASTRO [facility] [address] [place] [address] Gerardo Purcell MD Other; Medication Management 3 Telephone SEP Urology NPTFTT [address] [place] [address] Sandra Murrell PA-C Results 3 2:00 PM EDT Office Visit [facility] [address] [place] [address] Janet Vogt MD Essential hypertension (Primary Dx); Peripheral neuropathy, idiopathic; Restless legs syndrome (RLS) 3 3:45 PM EDT Office Visit SEP SPINE HH [address] [place] [phone] Pebbles Will APRN Primary osteoarthritis of right knee (Primary Dx) 3 10:40 AM EDT Office Visit SEP Urology NPTFTT [address] [place] [address] Sandra Murrell PA-C Group beta Strep positive (Primary Dx); Urinary retention; Cauda equina syndrome with neurogenic bladder (HCC) 3 Telephone SEP Urology NPTFTT [address] [place] [address] Sandra Murrell PA-C Patient Question 3 Telephone SEP H&V [address] [address] eKndy Biggs, Patient Question (Patient was just released from hospital and has some questions for Dr. Biggs's MA about her blood pressure. Please call her back) 3 1:20 PM EDT Office Visit SEP GASTRO [facility] [address] [place] [address] Gerardo Purcell MD Acute gastritis without hemorrhage, unspecified gastritis type (Primary Dx) 3 Travel 3 3:00 PM EDT - 3 6:16 PM EDT Emergency [place] [facility] [place] [address] Sameer Gan MD Dysuria (Primary Dx); Suprapubic pressure Discharge Disposition: Home or Self Care 3 2:30 PM EDT Office Visit Michael Lowe [address] [place] [address] [address] [place] [phone] Oumar Alves MD Spinal stenosis of lumbar region without neurogenic claudication (Primary Dx) 3 1:20 PM EDT Office Visit SEP GASTRO [facility] [address] [place] [address] Gerardo Purcell MD Cauda equina syndrome with neurogenic bladder (HCC) (Primary Dx); Irritable bowel syndrome with constipation; Gastroesophageal reflux disease without esophagitis 3 1:15 PM EST Ancillary Procedure [facility] [address] [place] [address] Oumar Alves MD Lumbar pain 3 1:00 [place] [address] Oumar Alves MD Spinal stenosis of lumbar region without neurogenic claudication (Primary Dx); DDD (degenerative disc disease), lumbar; Lumbar pain 3 Travel 3 1:10 PM EST - 3 11:59 PM EST Hospital Encounter [facility] [place] [address] Peripheral neuropathy, idiopathic (Primary Dx); Nail disease; Macronychia; Encounter for laboratory testing for COVID-19 virus; Essential hypertension; Other hyperlipidemia; Acquired hypothyroidism; Pre-op testing Discharge Disposition: Home or Self Care 3 Travel 3 2:05 PM EST - 3 11:59 PM EST Hospital Encounter [facility] [place] [address] Macronychia (Primary Dx); Nail disease Discharge Disposition: Home or Self Care 3 Telephone [facility] [address] [address] Mikey Christian MD Prior Authorization (Right Knee Inj) 3 2:15 PM EST Office Visit SEP SPINE HH [address] [place] [address] Mikey Christian MD Lumbar radiculopathy; Neuropathic pain; Myofascial pain 3 Refill SEP H&V NPTFTT [address] [place] [address] Kendy Biggs DO Medication Refill 3 1:10 PM EST Office Visit SEP Ophthalmology Cov [address] [facility] [address] [place] [address] Na Ang MD Optic neuropathy, left (Primary Dx); Bilateral ocular hypertension 3 Telephone SEP GASTRO [facility] [address] [facility] [facility], [place] [phone] Gerardo Purcell MD Medication Management (FOR HEMORRHOIDS) 3 Travel 3 1:31 PM EST - 3 11:59 PM EST Hospital Encounter [facility] [address] [place] [id number] Janet Vogt MD Abdominal pain, unspecified abdominal location Discharge Disposition: Home or Self Care 3 Orders Only SEP Urology NPTFTT [address] [place] [address] Sandra Murrell PA-C Cauda equina syndrome with neurogenic bladder (HCC) (Primary Dx) 3 3:20 PM EST Office Visit SEP Urology NPTFTT [address] [place] [address] Sandra Murrell PA-C Microhematuria (Primary Dx) 2 11:00 AM EST Office Visit SEP [facility] Primary Care [address] [place] [address] Janet Vogt MD Influenza A (Primary Dx); Abdominal pain, unspecified abdominal location; Menopause; Essential hypertension 2 Patient Outreach SEP Quality [facility]formation [address] [place] [address] Anh Brown BS, COS CM - Referral Line 2 5:51 AM EST - 2 8:24 AM EST Emergency [facility] Emergency [address] [facility] [place] [address] Jonas Mayorga MD Patel, Dhruv P, MD Influenza A (Primary Dx); Hematuria, unspecified type Discharge Disposition: Home or Self Care 2 10:15 AM EST Office Visit SEP SPINE HH [address] [place] [address] Mikey Christian MD Myofascial pain; Lumbar radiculopathy; Neuropathic pain 2 Refill SEP H&V NPTFTT [address] [place] [address] Kendy Biggs DO Medication Refill 2 Refill SEP GASTRO [facility] [address] [place] [address] Gerardo Purcell MD Medication Refill 2 9:15 AM EDT Office Visit SEP SPINE HH [address] [place] [address] Mikey Christian MD Lumbar radiculopathy (Primary Dx); Myofascial pain; Neuropathic pain 2 Travel 2 7:36 AM EDT - 2 11:59 PM EDT Hospital Encounter FTT EMG [address] [place] [address] EmgFredo Ftt Lumbosacral radiculopathy (Primary Dx); Pain in both lower extremities; Carpal tunnel syndrome of left wrist Discharge Disposition: Home or Self Care 2 2:20 PM EDT Ancillary Procedure [address] [address] Denae Reis MD Cough, unspecified type Discharge Disposition: Home or Self Care 2 1:30 PM EDT Office Visit [address] [address] Denae Reis MD Cough, unspecified type (Primary Dx); Bronchitis 2 2:15 PM EDT Office Visit SEP SPINE HH [address] [place] [address] Mikey Christian MD Pain in both lower extremities (Primary Dx); Acute bilateral low back pain without sciatica; Sacroiliitis; Myofascial pain 2 10:20 AM EDT Office Visit SEP GASTRO [facility] [address] [place], [place] [id number] Gerardo Purcell MD Irritable bowel syndrome with constipation (Primary Dx); Gastroesophageal reflux disease without esophagitis; Cauda equina syndrome with neurogenic bladder (HCC); Nausea; External hemorrhoids 2 2:00 PM EDT Office Visit SEP H&V [address] [id number] Kendy Biggs, Nonobstructive atherosclerosis of coronary artery (Primary Dx); Essential hypertension; Heart murmur; Dyslipidemia 2 Refill SEP [facility] [address] [place] [address] Janet Vogt MD Medication Refill 2 2:50 PM EDT Office Visit [address] [address] Mikey Christian MD Sacroiliitis 2 1:20 PM EDT Office Visit SEP Urology NPTFTT [address] [place] [address] Sandra Murrell, IHSAN Incomplete bladder emptying (Primary Dx); Urinary retention; Cauda equina syndrome with neurogenic bladder (HCC); Slow transit constipation 2 Telephone SEP H&V NPTFTT [address] [place] [address] Kalyan, Kendy, DO Medication Refill 2 Telephone SEP H&V [address] [address] KalyanAruni, DO Medication Refill 2 Patient Outreach SEP Joe [address] [place] [address] Janet Vogt MD Central Patient Navigator Outreach (AWV) [address] [place] [address] Mikey Christian MD Prior Authorization (SI joint injection) 2 2:15 PM EDT Office Visit SEP SPINE HH [address] [place] [address] Mikey Christian MD Myofascial pain (Primary Dx); Acute bilateral low back pain without sciatica; Sacroiliitis 2 Orders Only [address] [place] [address] Mikey Christian MD Myofascial pain (Primary Dx) 2 9:30 AM EDT Office Visit SEP SPINE [address] [place] [address] Mikey Christian MD Chronic pain of right thumb [address] [address] [facility] Building [address] [place] [address] Gerardo Purcell MD Medication Refill 2 Telephone SEP GASTRO [address] 1D ENTRANCE, 3RD [place] [address] Gerardo Purcell MD Other 2 9:40 AM EDT Office Visit SEP Urology NPTFTT [address] [place] [address] Sandra Murrell PA-C Urinary retention (Primary Dx); Slow transit constipation; Hemorrhoids, unspecified hemorrhoid type; Incomplete bladder emptying 2 11:20 AM EDT Office Visit SEP Urology NPTFTT [address] [place] [address] Sandra Murrell PA-C Feeling of incomplete bladder emptying (Primary Dx); Urinary retention; Slow transit constipation 2 Patient Outreach SEP [facility] [address] [facility] [address] [place] [address] Anh Brown BS, COS ED Follow-Up Call 2 2:29 AM EDT - 2 6:04 AM EDT Emergency [place] [address] Arthur Rodriguez MD Acute on chronic urinary retention (Primary Dx); Hemorrhoids, unspecified hemorrhoid type Discharge Disposition: Home or Self Care 2 Nurse Triage [address] [place] [address] Kat Vizcaino RN 2 Travel 2 9:15 PM EDT - 2 10:11 PM EDT Emergency [place] [place] [address] Arthur Pruett MD Fecal impaction in rectum (HCC) (Primary Dx); External hemorrhoids without complication Discharge Disposition: Home or Self Care 2 Nurse Triage [address] [place] [address] Ne Betancourt RN 2 Refill [facility] H&V NPTFTT [address] [place] [address] Kendy Biggs, DO Medication Refill 2 1:00 PM EDT Office Visit [facility] Ophthalmology [address] [place] [address] Na Ang MD Keratitis sicca, bilateral (HCC) (Primary Dx); Optic neuropathy, left; Bilateral ocular hypertension; Nuclear sclerotic cataract of right eye 2 Telephone [place] [address] [place] [address] Mikey Christian MD Prior Authorization (Right Thumb Injection) 2 10:30 AM EDT Office Visit [place] [address] [place] [address] Mikey Christian MD Acute bilateral low back pain without sciatica 2 [place] [address] Kendy Biggs, Medication Refill 2 11:20 AM EDT Office Visit SEP Urology NPTFTT [address] [place] [address] Sandra Murrell PA-C Feeling of incomplete bladder emptying (Primary Dx); Incomplete bladder emptying; Cauda equina syndrome with neurogenic bladder (HCC); Slow transit constipation; Stranguria 2 2:45 PM EDT Office [place] [address] Kendy Biggs DO Coronary artery disease involving [place] coronary artery of [place] heart without angina pectoris (Primary Dx); Essential hypertension; Nonobstructive atherosclerosis of coronary artery; Dyslipidemia 2 3:30 PM EDT Office Visit SEP SPINE HH [address] [place] [address] Mikey Christian MD Sacroiliitis (Primary Dx); Acute bilateral low back pain without sciatica; Spondylosis of lumbosacral region without myelopathy or radiculopathy; DDD (degenerative disc disease), lumbar 2 Refill SEP SPINE HH [address] [place] [address] Mikey Christian MD Medication Refill 2 [place] [address] Kendy Biggs DO Medication Refill 2 Telephone SEP H&V [place] [id number] Kendy Biggs DO Medication Question 2 [place] [address] Oumar Alves MD 2 11:00 AM EST Office Visit [facility] [address] [place] [phone] Oumar Alves MD Spinal stenosis of lumbar region, unspecified whether neurogenic claudication present (Primary Dx) 2 [place] [address] Kendy Biggs, Other 2 Telephone [facility] [address] [place] [address] Oumar Alves MD Other 2 Telephone [facility] Spine [address] [place] [address] Mikey Christian MD Prior Authorization (Right GTB) [address] [place] [address] Mikey Christian MD Other (Questions Regarding Procedures.) 2 Orders Only [facility] Spine [address] [place] [address] Mikey Christian MD DDD (degenerative disc disease), lumbar (Primary Dx) 2 1:20 PM EST Office Visit SEP SPINE HH [address] [place] [address] Mikey Christian MD Acute bilateral low back pain without sciatica 2 Travel 2 12:07 PM EST - 2 11:59 PM EST Hospital Encounter [place] [facility] [address] [place] [address] Mikey Christian MD Acute bilateral low back pain without sciatica Discharge Disposition: Home or Self Care 2 Travel 2 11:00 AM EST Office Visit SEP SPINE HH [address] [place] [address] Mikey Christian MD Acute bilateral low back pain without sciatica (Primary Dx); DDD (degenerative disc disease), lumbar 1 Patient Outreach SEP [facility] [address] [place] [address] Valeria Muñoz METAL POURER Follow-Up Call 1 Travel 1 8:52 PM EST - 1 11:06 PM EST Emergency [place] [address] [place], [place] [phone] Rubi Martinez MD Acute exacerbation of chronic low back pain (Primary Dx) Discharge Disposition: Home or Self Care 1 6:48 PM EST - 1 7:04 PM EST [facility] [place] [address] Discharge Disposition: Left Without Being Seen 1 Telephone [facility] H&V [address] [phone] Kendy Biggs DO Medication Reaction 1 Travel 1 11:00 AM EST Office Visit [facility] [place] [address] [address] Janet Vogt MD Upper respiratory tract infection, unspecified type (Primary Dx); Insomnia, persistent 1 10:00 AM EST Office Visit [facility] Urology NPTFTT [address] [place] [address] Sandra Murrell PA-C Incomplete bladder emptying (Primary Dx); Dysuria; UTI symptoms 1 Travel 1 11:30 AM EST Office Visit [facility] [place] [address] [address] Janet Vogt MD Muscle strain of chest wall, initial encounter (Primary Dx); Insomnia, persistent 1 Telephone [facility] 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, unspecified lagophthalmos type; Pseudophakia of both eyes; Optic neuropathy, left 1 Refill SEP H&V [place] [address] [place] [address] Kendy Biggs, Medication Refill 1 Telephone SEP H&V [facility] [place] [address] [place] [address] Kendy Biggs, Labs Only 1 Refill SEP H&V [address] [place] [address] [place] [address] Kendy Biggs, Medication Refill 1 Telephone SEP H&V [facility] [place] [address] [place] [address] Kendy Biggs, Hypertension; Dizziness 1 Travel 1 2:40 PM EDT Office Visit SEP Gastro CVH [address] [facility] [address] [place] [address] Gerardo Purcell MD Irritable bowel syndrome with constipation (Primary Dx); Gastroesophageal reflux disease, unspecified whether esophagitis present; Chronic cholecystitis 1 Travel 1 9:45 AM EDT Office Visit SEP H&V [facility] [place] [address] [place] [address] Kendy Biggs, Uncontrolled hypertension (Primary Dx); Dyslipidemia; Coronary artery disease involving [place] coronary artery of [place] heart without angina pectoris; Nonobstructive atherosclerosis of coronary artery 1 Nurse Triage SEP Rust [address] [place] [address] Lelo Dawkins, MARISSA 1 Telephone SEP H&V [facility] [place] [address] [place] [address] Kalyan, Kendy, DO Medication Problem 1 Orders Only [facility] [place] [facility] [address] [place] [address] Yara Anders, DEAA 1 Telephone SEP Gen Surg Edg [address] [facility] [address] [place] [address] Geoff Gan MD Other 1 2:00 PM EDT Office Visit [facility] [place] [address] [address] Page Chatterjee, RN Encounter for counseling for care management of patient with chronic conditions and complex health needs using nurse-based model (Primary Dx) 1 1:00 PM EDT Office Visit [facility] [place] [address] [address] Janet Vogt MD Insomnia, persistent (Primary Dx); Irritable bowel syndrome with constipation 1 Travel 1 2:45 PM EDT Office Visit SEP Gen Surg Edg [address] [facility] [address] [place] [address] Geoff Gan MD S/P laparoscopic cholecystectomy (Primary Dx); Anxiety 1 Telephone SEP H&V [facility] [address] [place] [address] Kendy Biggs, DO Hypotension; Fatigue 1 Patient Outreach SEP [facility] [address] [place] [address] Gracie Barba BA, COS ED Follow-Up Call 1 Travel 1 11:34 AM EDT - 1 4:47 PM EDT Emergency [place] [address] Tiana Orosco MD Spellman, Paul E, MD Non-intractable vomiting with nausea, unspecified vomiting type (Primary Dx) Discharge Disposition: Home or Self Care 1 Telephone SEP [place] [facility] [address] [place] [address] Janet Vogt MD Symptom Call (after surgery ) 1 Telephone SEP Vascular Surg Edg [address] [facility] [address] [place] [address] Liliya De [place] RMA Symptom Call (nausea) 1 Travel 1 1:30 PM EDT - 1 3:55 PM EDT Surgery [place] [address] Geoff Gan MD DAVINCI ROBOTIC CHOLECYSTECTOMY 1 1:38 PM EDT Anesthesia Event EDG [place] [address] Denae Galarza MD Merkle Serey, Jennifer L, NP 1 12:04 PM EDT - 1 5:36 PM EDT Hospital Encounter [facility] SAME DAY SURGERY [facility] [place] [address] Geoff Gan MD Calculus of gallbladder without cholecystitis without obstruction; Calculus of gallbladder without cholecystitis without obstruction Discharge Disposition: Home or Self Care 1 Travel 1 1:00 PM EDT - 1 11:59 PM EDT Hospital Encounter [facility] [address] [place] [address] Covid19, Edg Lab [facility] Pre-op testing; Encounter for laboratory testing for COVID-19 virus Discharge Disposition: Home or Self Care 1 Orders Only SEP Gen Surg Edg [address] [facility] [address] [place] [address] Geoff Gan MD Calculus of gallbladder without cholecystitis without obstruction (Primary Dx) 1 Travel 1 10:30 AM EDT Office Visit [facility] [place] [facility] [address] [place] [address] Janet Vogt MD Calculus of gallbladder without cholecystitis without obstruction (Primary Dx); Irritable bowel syndrome with constipation 1 Patient Outreach SEP [facility] [address] [address] Nelson Kennedy LPN ED Follow-Up Call 1 Telephone SEP Gen Surg Edg [address] [facility] [address] [place] [address] Geoff Gan MD Procedure 1 Travel 1 1:08 PM EDT - 1 4:01 PM EDT Emergency [place] [address] Sameer Coffey MD Constipation, unspecified constipation type (Primary Dx) Discharge Disposition: Home or Self Care 1 Nurse Triage [place] [address] [place] [address] Margarita Coffey RN 1 Travel 1 10:45 AM EDT Office Visit SEP Gen Surg Edg [address] [facility] [address] [place] [address] Geoff Gan MD Calculus of gallbladder without cholecystitis without obstruction (Primary Dx) 1 Patient Outreach SEP [facility] [address] [place] [address] Nelson Kennedy LPN ED Follow-Up Call 1 2:19 PM EDT - 1 5:00 PM EDT Emergency [place] [address] Dre Foley MD Calculus of gallbladder without cholecystitis without obstruction (Primary Dx); Nausea vomiting and diarrhea Discharge Disposition: Home or Self Care 1 Travel 1 3:15 PM EDT Office Visit [facility] [place] [address] [address] Janet Vogt MD Diarrhea, unspecified type (Primary Dx) 1 [facility] [address] [address] Janet Vogt MD Appointment Needed (stomach pain) 1 Travel 1 4:30 PM EDT Office Visit [facility] [place] [place] [address] [place] [address] Lauryn Valiente MD Urinary frequency (Primary Dx); Cystitis 1 Telephone SEP Urology [address] [address] Sandra Murrell PA-C Other 1 Telephone SEP Ophthalmology Cov [address] [place] [address] [place] [phone] Na Ang MD Other 1 [facility]ill [facility] [address] [address] Otto Arreaga MD Medication Refill [address] [address] Janet Vogt MD Medication Refill 1 Travel 1 9:00 AM EDT Office Visit SEP Urology NPTFTT [address] [place] [address] Heydi Merrill MD Incomplete bladder emptying (Primary Dx); Stranguria; Slow transit constipation; Cauda equina syndrome with neurogenic bladder (HCC); Microhematuria; Nocturia; Frequency of micturition 1 Refill SEP H&V [place] [address] [place] [address] Kendy Biggs DO Medication Refill 1 Travel 1 3:10 PM EDT Office Visit SEP Ophthalmology Cov [address] [address] Na Ang MD Refractive error (Primary Dx); Keratitis sicca, bilateral (HCC); Nuclear sclerotic cataract of right eye 1 Telephone [facility] [place] [address] [address] Janet Vogt MD Follow-up (dexa scan ) 1 Refill [facility] [place] [address] [address] Janet Vogt MD Medication Refill 1 Travel 1 11:00 AM EDT Clinical Support SEP [place] [address] [address] Jayna Farooq [place] Encounter for therapeutic drug monitoring (Primary Dx) 1 Travel 1 Travel 1 3:40 PM EDT Office Visit SEP Ophthalmology Cov [address] [address] Na Ang MD Nuclear sclerotic cataract of right eye (Primary Dx) 1 Travel 1 4:47 PM EDT - 1 11:59 PM EDT Hospital Encounter [facility] MRI [address] [place] [address] Oneal Carrera, DPLauryn Arthritis of left ankle Discharge Disposition: Home or Self Care 1 Orders Only SEP Urology NPTFTT [address] [place] [address] Heydi Merrill MD Incomplete bladder emptying (Primary Dx) 1 Travel 1 2:30 PM EDT Office Visit SEP Ophthalmology Cov [address] [facility] [address] [place] [address] Na Ang MD Nuclear sclerotic cataract of right eye (Primary Dx) 1 12:25 PM EDT - 1 12:50 PM EDT Surgery [facility] PERIOP [address] [place] [address] Na Ang MD CATARACT EXTRACTION WITH PHACOEMULSIFICATION AND INTRAOCULAR LENS 1 12:33 PM EDT Anesthesia Event [facility] [address] [place] [address] Oumar Weiss MD Zehnder, Wende, APRN 1 10:15 AM EDT - 1 1:42 PM EDT Hospital Encounter FTT SAME DAY SURGERY [address] [place] [address] Na Ang MD Nuclear sclerotic cataract of right eye Discharge Disposition: Home or Self Care 1 Travel 1 1:19 PM EDT - 1 11:59 PM EDT Hospital Encounter [facility] [address] [place] [address] Covid19, [facility] [place] Pre-op testing; Encounter for laboratory testing for COVID-19 virus Discharge Disposition: Home or Self Care 1 2:29 PM EDT - 1 11:59 PM EDT Hospital Encounter [facility]TT MOB DRAW SITE [address] [place] [address] Essential hypertension; Other hyperlipidemia; Acquired hypothyroidism; Peripheral neuropathy, idiopathic Discharge Disposition: Home or Self Care 1 2:00 PM EDT Office Visit [facility] [place] [facility] [address] [place] [address] Janet Vogt MD Peripheral neuropathy, idiopathic (Primary Dx) 1 Travel 1 Travel 1 1:15 PM EDT Office Visit SEP H&V [facility] [place] [address] [place] [address] Kendy Biggs DO Uncontrolled hypertension (Primary Dx); Dyslipidemia; Coronary artery disease involving big pine reservation coronary artery of big [place] reservation heart without angina pectoris; Heart murmur 1 Orders Only [facility]P [place] [facility] [address] [place] [address] Yara Anders, [facility] 1 Travel 1 Travel 1 2:30 PM EDT Office Visit SEP Ophthalmology Cov [address] [facility] [address] [place] [address] Na Ang MD Nuclear sclerotic cataract of right eye (Primary Dx) [address] [facility] 651 [facility] Building [address] [place] [address] Gerardo Purcell MD Medication Refill 1 Travel 1 2:30 PM EDT Office Visit SEP Ophthalmology Cov 1500 [facility] [address] [place] [address] Na Ang MD Nuclear sclerotic cataract of right eye (Primary Dx); Nuclear sclerotic cataract of left eye 1 2:30 PM EDT - 1 2:55 PM EDT Surgery [facility] [address] [place] [address] Na Ang MD CATARACT EXTRACTION WITH PHACOEMULSIFICATION AND INTRAOCULAR LENS 1 2:22 PM EDT Anesthesia Event [facility] [address] [place] [address] Juan Lynn MD Collins, Angela, APRN 1 12:46 PM EDT - 1 3:41 PM EDT Hospital Encounter [facility]TT SAME DAY SURGERY [address] [place] [address] Na Ang MD Nuclear sclerotic cataract of left eye Discharge Disposition: Home or Self Care 1 Travel 1 Travel 1 1:00 PM EDT - 1 11:59 PM EDT Hospital Encounter [facility] [address] [place] [address] Covid19, [facility] [place] Pre-op testing; Encounter for laboratory testing for COVID-19 virus Discharge Disposition: Home or Self Care 1 Travel 1 Travel 1 Telephone SEP Ophthalmology Cov [address] [facility] [address] [place] [address] Fatoumata Mantilla Follow-up 1 Travel 1 2:50 PM EST Office Visit SEP Ophthalmology Cov [address] [facility] [address] [place] [address] Na Ang MD Nuclear sclerotic cataract of left eye (Primary Dx); Narrow angle glaucoma of left eye; Anatomical narrow angle, bilateral ; Anatomical narrow angle, bilateral 1 Travel 1 Refill SEP Gastro [facility] [address] [address] Gerardo Purcell MD Medication Refill 1 Orders Only SEP [facility] [address] [place] [address] Yara Anders CCMA Essential hypertension (Primary Dx) 1 Telephone SEP H&V [facility] [place] [address] [place] [address] Kendy Biggs, Appointment Needed 1 Refill SEP Gastro [facility] [address] [address] Gerardo Purcell MD Medication Refill 0 Refill SEP Gastro [facility] [address] [address] Gerardo Purcell MD Medication Refill 0 Travel 0 1:02 PM EST - 0 11:59 PM EST Hospital Encounter [facility] Ultrasound [address] [facility] [place] [address] Heydi Merrill MD Incomplete bladder emptying Discharge Disposition: Home or Self Care 0 Travel 0 Travel 0 10:20 AM EST Office Visit SEP Urology NPTFTT [address] [place] [address] Heydi Merrill MD Incomplete bladder emptying (Primary Dx); Stranguria; Slow transit constipation; Cauda equina syndrome with neurogenic bladder (HCC) 0 Orders Only [facility]P [place] [address] [address] Jamilah Hdez RMA Essential hypertension (Primary Dx) 0 Telephone [facility] [place] [address] [address] Janet Vogt MD Medication Management (cloNIDine (CATAPRES) 0.2 mg/24 hr TD Patch Weekly 12 Patch 0 04/15/2020 ) 0 Telephone [facility] [place] [address] [address] Janet Vogt MD Medication Management (cloNIDine (CATAPRES) 0.2 mg/24 hr TD Patch Weekly) 0 Refill SEP [place] [address] [address] Janet Vogt MD Medication Refill 0 Travel 0 Refill SEP [facility] 651 [facility] [address] [place] [address] Gerardo Purcell MD Medication Refill 0 Travel 0 Telephone SEP [address] [address] Janet Vogt MD Other (needs a return call.) 0 Travel 0 1:30 PM EDT Clinical Support [facility] [place] [address] [address] Jayna Farooq MA Viral URI with cough (Primary Dx) 0 Telephone SEP [facility] [place] [address] [address] Janet Vogt MD Orders (covid test ) 0 11:45 AM EDT Telemedicine SEP [place] [address] [address] Severo Harrell DO Viral URI with cough (Primary Dx) 0 Telephone SEP [place] [address] [address] Janet Vogt MD Orders (sore throat , body aches ) 0 Travel 0 12:15 PM EDT Ancillary Procedure [facility] [place] [address] [place] [address] Subcutaneous mass of supraclavicular area 0 Travel 0 11:45 AM EDT Office Visit SEP [place] [address] [address] Janet Vogt MD Subcutaneous mass of supraclavicular area (Primary Dx) 0 Travel 0 Refill [facility] [address] [facility] [address] [place] [address] Gerardo Purcell MD Medication Refill 0 Travel 0 12:14 PM EDT - 0 11:59 PM EDT Hospital Encounter [place] [address] [facility] [place] [address] Janet Vogt MD Post-menopausal Discharge Disposition: Home or Self Care 0 1:53 PM EDT - 0 11:59 PM EDT Hospital Encounter [facility] MOB DRAW SITE [address] [place] [address] Acute pain of both shoulders Discharge Disposition: Home or Self Care 0 1:00 PM EDT Office Visit [facility] [place] [facility] [address] [place] [address] Severo Harrell DO Acute pain of both shoulders (Primary Dx) 0 Travel 0 Travel 0 Travel 0 6:05 AM EDT - 0 11:59 PM EDT Hospital Encounter [facility] EKG ATTN: Appointments in this department are performed at various locations in the community on our Cardiovascular mobile health unit. You can look online to verify your site or call [phone]. [place] [phone] Leoncio Haywood APRN Screening for cardiovascular condition Discharge Disposition: Home or Self Care 0 6:03 AM EDT - 0 6:04 AM EDT Hospital Encounter [facility] ECHO VAS ATTN: Appointments in this department are performed at various locations in the community on our Cardiovascular mobile health unit. You can look online to verify your site or call [phone] [address] Leoncio Haywood APRN Screening for cardiovascular condition Discharge Disposition: Home or Self Care 0 Orders Only SEP H&V CV [place] [address] [place] [address] Colleen Dunne Desiree 0 Refill SEP [facility] [address] [place] [address] Janet Vogt MD Medication Refill 0 Refill SEP [facility] [address] [place] [address] Janet Vogt MD Medication Refill 0 Orders Only SEP H&V [facility] [place] [address] [place] [address] Anderson Alejandra MA Essential hypertension (Primary Dx) 0 Refill SEP Gastro CV[facility] [address] [facility] [address] [place] [address] Gerardo Purcell MD Medication Refill 0 Refill SEP H&V [facility] [place] [address] [place] [address] William Presley PA-C Medication Refill 0 Refill SEP Urology NPTFTT [address] [place] [address] Heydi Merrill MD Medication Refill 0 Travel 0 Travel [address] [address] Janet Vogt MD Orders 0 Travel 0 2:00 PM EDT Telemedicine [facility] H&V CVH [facility] [address] [place] [address] Kendy Biggs, DO Nonobstructive atherosclerosis of coronary artery (Primary Dx); Mixed hyperlipidemia; Essential hypertension; Dyslipidemia 0 Travel 0 2:20 PM EDT Office Visit [facility] Urology [address] [address] Heydi Merrill MD Stranguria (Primary Dx); Incomplete bladder emptying; Frequency of micturition; Nocturia 0 Travel 0 Telephone [facility] Urolog[address] [address] Heydi Merrill MD Other (trouble with urinating.) 0 Travel 0 Travel 0 11:15 AM EDT Telemedicine [address] [address] Janet Vogt MD Acquired hypothyroidism (Primary Dx); Essential hypertension; Other hyperlipidemia; Incomplete bladder emptying 0 Telephone SEP Gastro [facility] [address] [address] Gerardo Purcell MD Medication Question 0 Telephone SEP Gastro [facility] [address] [address] Gerardo Purcell MD Medication Management 0 Telephone [facility] Care [address] [place] [address] Janet Vogt MD Other 0 Telephone [facility] [address] [place] [address] Janet Vogt MD Lab Orders (antibody test for CV-19) 0 Travel 0 Lab Requisition [facility] [address] [place] [id number] Gerardo Purcell MD Personal history of colonic polyps; Other specified diseases of intestine 0 Orders Only SEP Gastro [facility] [address] [address] Gerardo Purcell MD 0 Travel 0 Telephone SEP Gastro [facility] [address] [address] Roderick Santoyo MD PHD Procedure 0 Telephone SEP Gastro [facility] [address] [address] Gerardo Purcell MD Medication Question 0 1:30 PM EST Office Visit SEP Urology NPTFTT [address] [place] [address] Heydi Merrill MD Dysuria (Primary Dx); Incomplete bladder emptying; Urinary urgency; Irritable bowel syndrome with constipation 0 Telephone SEP Gastro [facility] [address] [address] Violeta Victoria APRN Medication Management (ELAVIL PA) 0 Telephone SEP Gastro [facility] [address] [address] Violeta Victoria APRN Medication Management 0 2:30 PM EST Office Visit SEP Gastro CV [address] [address] Violeta Victoria APRN Nausea (Primary Dx); Dry heaves; Abdominal fullness; Hx of colonic polyps; Irritable bowel syndrome with constipation; Special screening for malignant neoplasms, colon 0 Orders Only SEP Urology [address] [address] Handy Sandra A, PA-C Incomplete bladder emptying (Primary Dx) 0 Telephone [facility] Urology [address] [address] Handy Sandra A, PA-C Other (medication issues) 0 Orders Only SEP Urology NPTFTT [address] [place] [phone] Handy Sandra A, PA-C 0 Telephone [facility] Urology NPTFTT [address] [place] [address] Handy Sandra A, PA-C Other 0 1:45 PM EST Office Visit SEP Urology NPTFTT [address] [place] [address] Handy, Sandra A, PA-C Nausea (Primary Dx); Acute UTI; Microhematuria; Incomplete bladder emptying 0 Telephone SEP Gastro [facility] [address] [address] Gerardo Purcell MD Nausea 9 9:15 AM EST Office Visit SEP Urology [address] [address] Sandra Murrell PA-C Incomplete bladder emptying (Primary Dx); Dysuria; Acute UTI 9 1:30 PM EST Office Visit [facility] H&V [facility] [address] [place] [address] Kendy Biggs, Coronary artery disease involving [place] reservation coronary artery of [place] heart without angina pectoris (Primary Dx); Heart murmur; Mixed hyperlipidemia; Essential hypertension; Acquired hypothyroidism 9 10:00 AM EST Office Visit [facility] Urology NPTFTT [address] [place] [address] Heydi Merrill MD Incomplete bladder emptying (Primary Dx); Dysuria; Other constipation 9 Telephone [facility] 651 [facility] [address] [place] [address] Gerardo Purcell MD Other 9 2:00 PM EST Office Visit [facility] [place] [address] [address] Janet Vogt MD Dysuria (Primary Dx) 9 2:04 PM EST - 9 11:59 PM EST Hospital Encounter [place] [facility] [address] Janet Vogt MD Encounter for screening mammogram for malignant neoplasm of breast Discharge Disposition: Home or Self Care 9 Telephone [facility] [address] [place] [address] Kendy Biggs, Medication Refill 9 Telephone [facility] [address] [address] Jamilah Stacy, tuber machine cutter Change 9 12:45 PM EDT Office Visit [facility] [address] [address] ZoFlaca sauceda MD UTI symptoms (Primary Dx) 9 9:15 AM EDT Office Visit [facility] Dermatology Rodrigo [address] [facility] [address] [place] [address] Chandni Murillo MD History of basal cell carcinoma (BCC) (Primary Dx); SK (seborrheic keratosis); Nevus; Other viral warts; Pain of skin; Disturbance of skin sensation 9 2:45 PM EDT Office Visit [facility] [address] [place] [address] Kendy Biggs DO Mixed hyperlipidemia (Primary Dx); Coronary artery disease involving [place] reservation coronary artery of [place] heart without angina pectoris; Heart murmur; Essential hypertension; Acquired hypothyroidism 9 1:15 PM EDT Office Visit [facility] [address] [place] [address] Sandee Matthews RMA Chest pain, unspecified type (Primary Dx); SOB (shortness of breath) 9 2:20 PM EDT Office Visit [facility] Gastro CV [address] [address] Gerardo Purcell MD Irritable bowel syndrome with constipation (Primary Dx); History of colon polyps 9 11:15 AM EDT Office Visit [facility] [place] [facility] [address] [place] [address] Janet Vogt MD Medicare annual wellness visit, subsequent (Primary Dx); Essential hypertension; Acquired hypothyroidism; Other hyperlipidemia; Strain of neck muscle, initial encounter 9 Patient Outreach [facility] [address] [place] [address] [place], RN Medicare Annual Wellness; Osteoarthritis; Schedule Appointment 9 Refill [facility] [address] [place] [address] William Presley PA-C Medication Refill 9 Orders Only SEP [place] [facility] [address] [place] [address] Yara Anders CCMA Essential hypertension (Primary Dx) 9 Telephone SEP [place] [facility] Care [address] [place] [address] Janet Vogt MD Medication Management 9 Telephone [facility]P [facility] [place] [address] [address] Janet Vogt MD Medication Management (clonidine ) 9 10:32 AM EDT - 9 11:59 PM EDT Hospital Encounter FTT [facility] SITE [address] [place] [address] Essential hypertension; Acquired hypothyroidism Discharge Disposition: Home or Self Care 9 10:15 AM EDT Office Visit SEP [place] [address] [address] Janet Vogt MD Acquired hypothyroidism (Primary Dx); Essential hypertension; Irritable bowel syndrome with diarrhea; Mixed hyperlipidemia; Other hyperlipidemia 9 Orders Only SEP Urology [address] [address] Sandra Murrell PA-C 9 10:00 AM EDT - 9 11:59 PM EDT Hospital Encounter [facility] XR [address] [place] [address] Slow transit constipation Discharge Disposition: Home or Self Care 9 9:00 AM EDT Office Visit SEP Urology [address] [place] [address] [place] [address] Sandra Murrell PA-C Incomplete bladder emptying (Primary Dx); Slow transit constipation; Cauda equina syndrome with neurogenic bladder (HCC) 9 10:30 AM EDT Office Visit SEP H&V [facility] [place] [address] [place] [address] William Presley PA-C Uncontrolled hypertension; Chest pain, unspecified type; SOB (shortness of breath); Dizziness; Bradycardia; Mixed hyperlipidemia; Heart murmur 2:00 PM EDT Office Visit [facility] Ophthalmology Cov [address] [facility] [address] [place] [address] Na Ang MD Keratitis sicca, bilateral; Bilateral ocular hypertension 9:20 AM EDT Office Visit [facility] Urology NPTT [address] [place] [address] Heydi Merrill MD Incomplete bladder emptying (Primary Dx); Urinary urgency; Chronic constipation; Weak urine stream Telephone [facility] [address] [place] [address] Bernadette Louise Desiree Visit Follow Up 9 9:51 AM EDT - 11:59 PM EDT Hospital Encounter [facility] [place], [place] [id number] Manav Batista MD Screening for condition Discharge Disposition: Home or Self Care 9:20 AM EDT Office Visit [facility] [address] [place] [address] Heydi Merrill MD Urine frequency (Primary Dx); Incomplete bladder emptying; Chronic constipation 10:45 AM EDT Office Visit [facility] [address] [place] [address] Kendy Biggs DO Essential hypertension (Primary Dx); Acquired hypothyroidism; Dyslipidemia; Uncontrolled hypertension 9 9:56 AM EST - 11:59 PM EST Hospital Encounter [facility] VASCULAR LAB [address] [place] [address]. [place] [address] William Presley PA-C Uncontrolled hypertension; SOB (shortness of breath); Dizziness; Chest pain, unspecified type; Mixed hyperlipidemia; Bradycardia; Labile hypertension Discharge Disposition: Home or Self Care 9 2:30 PM EST Office Visit [facility] [address] [place] [address] Eduardo Mejia MD Tinnitus, bilateral (Primary Dx); Dizziness, nonspecific; Bilateral ocular hypertension; Optic neuropathy, left; Essential hypertension; Clicking tinnitus of both ears; Sensorineural hearing loss (SNHL) of both ears 9 2:30 PM EST Office Visit SEP H&V [facility] [place] [address] [place] [address] William Presley PA-C Uncontrolled hypertension (Primary Dx); SOB (shortness of breath); Dizziness; Chest pain, unspecified type; Mixed hyperlipidemia; Bradycardia; Labile hypertension 9 Telephone [facility] H&V [facility] [address] [place] [address] Kendy Biggs, Other 9 Telephone SEP H&V [place] [address] [place] [address] Kendy Biggs, Appointment Needed 9 1:00 PM EST Office Visit SEP Ophthalmology Cov [address] [address] Na Ang MD Keratitis sicca, bilateral (Primary Dx); Cataract, nuclear sclerotic senile, bilateral; Bilateral ocular hypertension; Optic neuropathy, left 9 11:43 PM EST - 9 3:51 AM EST Emergency [facility] [address] [place] [address] Sameer Coffey MD Hypertension, unspecified type (Primary Dx); Loose stools; Nausea Discharge Disposition: Home or Self Care 9 1:45 PM EST Office Visit SEP Ophthalmology Cov [address] [address] Na Ang MD Optic neuropathy, left 9 1:48 PM EST - 9 4:19 PM EST Emergency [facility] Emergency [address] [place], [place] [id number] Jaylyn Talavera MD Nausea (Primary Dx) Discharge Disposition: Home or Self Care 9 Telephone SEP Ophthalmology [facility] [address] [facility] [address] [place] [address] Na Ang MD Medication Problem 9 12:20 PM EST - 9 11:59 PM EST Hospital [place] [address] Kendy Biggs DO Uncontrolled hypertension; Chest pain, unspecified type; SOB (shortness of breath); Dizziness; Bradycardia; Mixed hyperlipidemia; Heart murmur Discharge Disposition: Home or Self Care 9 8:15 AM EST Office Visit SEP Ophthalmology Cov [address] [place] [address] [address] [place] [address] Na Ang MD Refractive error (Primary Dx); Keratitis sicca, bilateral; Cataract, nuclear sclerotic senile, bilateral; Bilateral ocular hypertension; Optic neuropathy, left 9 11:00 AM EST Office Visit SEP H&V [address] [address] William Presley PA-C Uncontrolled hypertension (Primary Dx); SOB (shortness of breath); Dizziness; Heart murmur; Mixed hyperlipidemia; Bradycardia 8 Telephone SEP H&V [address] [address] Kendy Biggs DO Prior Authorization (benicar) 8 Telephone SEP H&V [address] [address] Kendy Biggs DO Hospital Follow Up 8 5:25 PM EST - 8 4:12 PM EST Hospital Encounter [facility] [address] [place] [address] Sameer Coffey MD Banks, David, MD Gaston, Richard L, MD Hypertensive urgency (Primary Dx); Lightheadedness Discharge Disposition: Home or Self Care 8 Telephone MD Adult Med 1 [facility]17 Daisy Garcia APRN Blood Pressure Check 8 Abstract SEP H&V [facility] [address] [place] [address] Kendy Biggs DO 8 8:00 AM EST Office Visit SEP H&V [facility] [address] [place] [address] Kendy Biggs, DO Uncontrolled hypertension (Primary Dx); Chest pain, unspecified type; SOB (shortness of breath); Dizziness; Bradycardia; Mixed hyperlipidemia; Heart murmur 8 12:52 PM EDT - 8 11:59 PM EDT Hospital Encounter [facility] [address] [place] [address] Elvira Velarde MD Encounter for screening mammogram for malignant neoplasm of breast Discharge Disposition: Home or Self Care 7 2:15 PM EDT Office Visit [facility] Dermatology [facility] [address] [address] Chandni Murillo MD Other viral warts (Primary Dx); History of basal cell carcinoma; Nevus; SK (seborrheic keratosis); Khalil angioma; Disturbance of skin sensation 7 1:46 PM EDT - 7 11:59 PM EDT Hospital Encounter [facility] [address] [place] [address] Elvira Velarde MD Encounter for screening mammogram for malignant neoplasm of breast Discharge Disposition: Home or Self Care 7 2:04 PM EDT Hospital Encounter [facility] Referral Lab 1 [facility] [address] Oumar Alves MD Low back pain 6 5:30 PM EDT Office Visit [facility] Urgent [facility] [place] [id number] Liberty Treadwell APRN Ruptured ear drum, left (Primary Dx); Seasonal allergies 6 1:09 PM EDT - 6 11:59 PM EDT Hospital Encounter [facility] [address] [place] [address] Elvira Velarde MD Visit for screening mammogram Discharge Disposition: Home or Self Care 5 6:59 AM EDT - 5 11:59 PM EDT Hospital Encounter [facility] ATTN: Appointments in this department are performed at various locations in the community on our Cardiovascular mobile health unit. You can look online to verify your site or call [phone] [address] Leoncio Haywood APRN Screening for other and unspecified cardiovascular conditions Discharge Disposition: Home or Self Care 5 12:35 PM EDT - 5 11:59 PM EDT Hospital Encounter [facility] [address] [place] [address] Elvira Velarde MD Other screening mammogram Discharge Disposition: Home or Self Care 4 12:45 PM EDT - 4 11:59 PM EDT Hospital Encounter [facility] [address] [place] [address] Elvira Velarde MD Other screening mammogram Discharge Disposition: Home or Self Care 3 12:56 PM EDT - 3 11:59 PM EDT Hospital Encounter [facility] [address] [place] [address] Elvira Velarde MD Other screening mammogram Discharge Disposition: Home or Self Care 3 1:18 PM EST - 3 11:59 PM EST Hospital Encounter [facility] [address] [place] [id number] Geoff Dozier MD Radiculopathy, lumbar region Discharge Disposition: Home or Self Care 2 3:38 PM EST - 2 11:59 PM EST Hospital Encounter [facility] [address] [address] Geoff Dozier MD Right knee pain Discharge Disposition: Home or Self Care 2 2:28 PM EDT - 2 11:59 PM EDT Hospital Encounter [facility] [address] [place] [address] Geoff Gant Thoracic or lumbosacral neuritis or radiculitis, unspecified Discharge Disposition: Home or Self Care 2 1:59 PM EST - 2 11:59 PM EST Hospital Encounter [facility] [place] [address] Claire Barnett Other screening mammogram Discharge Disposition: Home or Self Care 2 6:19 PM EST - 2 11:59 PM EST Hospital Encounter [facility] [place] [address] Discharge Disposition: Home or Self Care 1 12:49 PM EST - 1 11:59 PM EST Hospital Encounter [facility] [place] [address] Maxime Araiza MD Osteopenia Discharge Disposition: Home or Self Care 1 11:52 AM EST - 1 12:48 PM EST Hospital Encounter [place] [facility] [place] [address] Provider, Not In Epic Stress fracture foot; Osteoporosis Discharge Disposition: Home or Self Care 1 11:48 AM EST - 1 11:51 AM EST Hospital Encounter [facility] [place] [address] Britt Domingo MD Other screening mammogram Discharge Disposition: Home or Self Care 9 12:01 AM EDT - 9 11:59 PM EDT Hospital Encounter [facility] Maxime Walden MD 9 12:01 AM EDT - 9 11:59 PM EDT Hospital Encounter [facility] Maxime Walden MD 9 1:07 PM EDT - 9 11:59 PM EDT Hospital Encounter [facility] Maxime Walden MD 9 12:01 AM EDT - 9 11:59 PM EDT Hospital Encounter [facility] Maxime Moran MD 9 3:44 PM EST - 9 11:59 PM EST Hospital Encounter [facility] Maxime Walden MD 8 12:01 AM EDT - 8 11:59 PM EDT Hospital Encounter [facility] Maxime Walden MD 8 Hospital Encounter [facility] Generic, Historical Provider 7 12:01 AM EDT - 7 11:59 PM EDT Hospital Encounter [facility] Maxime Walden MD 6 4:00 PM EST - 6 11:59 PM EST Hospital Encounter [facility] Maxime Walden MD 6 5:35 AM EDT - 6 11:59 PM EDT Hospital Encounter [facility] Roderick Huynh MD 6 12:07 PM EDT - 6 11:59 PM EDT Hospital Encounter [facility] Roderick Barajas MD 4 12:01 AM EDT - 4 11:59 PM EDT Hospital Encounter [facility] Maxime Jaramillo MD 3 12:01 AM EDT - 3 11:59 PM EDT Hospital Encounter [facility] WOMaxime Gan MD 2 1:31 AM EDT - 2 11:59 PM EDT Hospital Encounter [facility] Maxime Moran MD 2 12:45 PM EST - 2 11:59 PM EST Hospital Encounter [facility] Maxime Walden MD 1 12:57 AM EDT - 1 11:59 PM EDT Hospital Encounter [facility] WOMaxime Gan MD 0 1:21 AM EDT - 0 11:59 PM EDT Hospital Encounter [facility] WOMaxime Gan MD 9 5:52 AM EDT - 9 11:59 PM EDT Hospital Encounter [facility] EK4 Maxime Walden MD 9 12:05 PM EDT - 9 11:59 PM EDT Hospital Encounter [facility] Prashant Rosario MD 9 4:27 AM EDT - 9 11:59 PM EDT Hospital Encounter [facility] EP[facility] CON UNK [facility] Roderick Huynh MD 6 5:53 AM EDT - 6 11:59 PM EDT Hospital Encounter [facility] UNK Maxime Walden MD 6 4:32 PM EDT - 6 11:59 PM EDT Hospital Encounter [facility] EP[facility] CON UNK Maxime Walden MD 5 6:05 AM EST - 5 11:59 PM EST Hospital Encounter [facility] UNK [facility] Sameer Wu DPM 5 9:44 AM EST - 5 11:59 PM EST Hospital Encounter [facility] UNK Maxime Walden MD 4 11:26 AM EDT - 4 11:59 PM EDT Hospital Encounter [facility] UNK [facility] Emanuel Vogt MD 2 11:06 AM EDT - 2 11:59 PM EDT Hospital Encounter [facility] EP[facility] CON UNK COV Lisa Garcia 0 3:29 PM EDT - 0 11:59 PM EDT Hospital Encounter [facility] UNK [facility] Salvatore Valiente 9 5:06 PM EDT - 9 11:59 PM EDT Hospital Encounter [facility] CON UNK COV Salvatore Valiente Allergies Active Allergy Reactions Criticality Noted Date Comments Sulfa (Sulfonamide Antibiotics) Nausea Only Medium 09/24/2011 AND WEAKNESS Codeine Nausea Only Medium 09/24/2011 Lisinopril Cough Medium 09/24/2011 Naproxen Nausea And Vomiting 09/24/2011 Morphine Other (See Comments) 04/24/2018 convulsions Hydralazine Palpitations 06/15/2018 Ciprofloxacin Other (See Comments) 03/02/2010 Itching inner ears-persistant with infusion today preop even with decreased rate Cefdinir Other (See Comments) 04/05/2019 Pt stated that the medication gave her cramps and diarrhea. Oxycodone-Acetaminophe n Nausea Only 12/11/2020 Tramadol Other (See Comments) 12/15/2021 Pt states it helps her problem but makes her colon bleed. Medications levothyroxine (SYNTHROID) 75 mcg Oral Tablet Take by mouth daily. Active aspirin 81 mg Oral Tablet, Delayed Release (E.C.) Take by mouth daily. Active ondansetron (ZOFRAN) 4 mg Oral Tablet Take 1 Tablet by mouth every 6 hours as needed for Nausea for up to 20 doses. 20 Tablet 2 12/08/2020 4:25 PM EDT 1 Active dicyclomine (BENTYL) 20 mg Oral TabletIndication s:Irritable bowel syndrome with constipation Take 1 Tablet by mouth 3 times daily as needed for Pain. 60 Tablet 2 1 Active tamsulosin (FLOMAX) 0.4 mg Oral CapsuleIndicatio ns:Incomplete bladder emptying Take 1 Capsule by mouth daily. 90 Capsule 3 2 Active Additional Information Patient not taking.Reason: Other, Reported on 02/03/2023 methocarbamoL (ROBAXIN) 500 mg Oral TabletIndication s:Myofascial pain Take 1 Tablet by mouth nightly as needed for Muscle spasms. 30 Tablet 1 2 Active Additional Information Patient not taking.Reason: Other, Reported on 02/03/2023 Hyoscyamine Sulfate 0.125 mg Oral Tablet, Rapid DissolveIndicati ons:Irritable bowel syndrome with constipation Take 0.125 mg by mouth daily as needed for Pain. 90 Tablet 3 2 Active Additional Information Patient not taking.Reason: Other, Reported on 02/03/2023 estradioL (ESTRACE) 0.01 % (0.1 mg/gram) Vagl Cream Use 1 fingertip (1gm) nightly x2 weeks then 2 nights per week, 1 tube 1 refill 42.5 g 1 3 Active Additional Information Patient not taking.Reported on 08/16/2024 tiZANidine (ZANAFLEX) 4 mg Oral TabletIndication s:Myofascial pain Take 0.25-0.5 Tablets by mouth nightly as needed for Muscle spasms. 60 Tablet 1 3 Active Additional Information Patient not taking.Reason: Other, Reported on 02/03/2023 pantoprazole (PROTONIX) 40 mg Oral Tablet, Delayed Release (E.C.)Indication s:Gastroesophage al reflux disease without esophagitis Take 1 Tablet by mouth daily. 90 Tablet 3 3 Active pantoprazole (PROTONIX) 40 mg Oral Tablet, Delayed Release (E.C.) Take 1 Tablet by mouth 2 times daily. Increase to twice a day for couple of months then return to once a day 60 Tablet 2 3 Active Additional Information Patient not taking.Reason: Other, Reported on 08/27/2022 famotidine (PEPCID) 40 mg Oral Tablet Take 1 Tablet by mouth daily. 30 Tablet 2 3 Active NIFEdipine (PROCARDIA XL) 30 mg Oral Tablet Extended Rel 24 hr Take 1 Tablet by mouth daily. 90 Tablet 3 3 Active Additional Information Patient not taking.Reason: Other, Reported on 02/03/2023 nebivoloL (BYSTOLIC) 5 mg Oral TabletIndication s:Essential hypertension TAKE ONE TABLET BY MOUTH DAILY 90 Tablet 3 3 Active Additional Information Patient not taking.Reason: Other, Reported on 02/03/2023 pramipexole (MIRAPEX) 0.25 mg Oral TabletIndication s:Peripheral neuropathy, idiopathic,Restl ess legs syndrome (RLS) TAKE ONE TABLET BY MOUTH ONCE NIGHTLY 90 Tablet 3 Active Additional Information Patient not taking.Reason: Other, Reported on 02/03/2023 amLODIPine (NORVASC) 10 mg Oral Tablet 3 Active candesartan (ATACAND) 16 mg Oral Tablet Take 16 mg by mouth every evening. Active carvediloL (COREG) 12.5 mg Oral Tablet Take 1 tablet twice a day by oral route. 3 Active DULoxetine (CYMBALTA) 60 mg Oral Capsule, Delayed Release(E.C.) Take 60 mg by mouth. Active fenofibrate (LOFIBRA) 160 mg Oral Tablet 3 Active inclisiran (LEQVIO) 284 mg/1.5 mL SubQ Syringe 284 mg. 3 Active mirtazapine (REMERON) 15 mg Oral Tablet 3 Active clonazePAM (KLONOPIN) 0.5 mg Oral Tablet Take 0.5 mg by mouth. Active azelastine (ASTELIN) 137 mcg (0.1 %) Nasl Aerosol, [place]ora USE 1 SPRAY(S) IN EACH NOSTRIL TWICE DAILY 3 Active albuterol (PROVENTIL HFA;VENTOLIN HFA) 90 mcg/actuation Inhl HFA Aerosol Inhaler Inhale 2 puffs every 4 hours by inhalation route. Active neomycin-polymyx in-dexamethameth asone (MAXITROL) 3.5mg/mL-10,000 unit/mL-0.1 % Opht Drops, Suspension Place 1 Drop into the left eye 4 times daily. Active cyclobenzaprine (FLEXERIL) 5 mg Oral Tablet Take 5 mg by mouth 2 times daily as needed. 4 Active Active Problems Patient Care Coordination No te Formatting of this note migh t be different from the original. Care gap audit completed by Chen Uribe RN on 04/04/2023. 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 Pt given product suggestions on AVS. Calculus of gallbladder with out cholecystitis without obstruction 11/26/2020 Overview (11/26/2020): Added automatically from request for surgery [id number] Narrow angle glaucoma of left eye 07/10/2020 Assessment & Plan (07/10/2020 4:51 PM EST): Patient pursuing CEIOL. This should help with narrow angle and can recheck after procedure. Hx of colonic polyps 05/10/2019 Irritable bowel syndrome with constipation 05/10 Essential hypertension 12/04/2018 Other hyperlipidemia 12/04/2018 Keratitis sicca, bilateral 05/08/2018 Assessment & Plan (09/13/2023 2:35 PM EDT): Encouraged to restart WC/LH. Suspect she got something in her eye when she was working at her daughter's trailer. No FB seen on exam today. Patient states symptoms are better. Decrease steroid/abx to bid for 1 week then daily for 1 week then stop. Assessment & Plan (02/03/2023 2:57 PM EDT): Continue refresh throughout the day. Nighttime gel/ointment was discussed as well. Patient used restasis in the past and has had plugs placed in the past. She would like to hold off on these for now. Discussed WC/LH Assessment & Plan (10/08/2021 1:18 PM EDT): Continue refresh throughout the day. Nighttime gel/ointment was discussed as well. Patient used restasis in the past and has had plugs placed in the past. She would like to hold off on these for now. Assessment & Plan (03/31/2021 4:03 PM EST): Continue refresh throughout the day. Nighttime gel/ointment was discussed as well. Patient used restasis in the past and has had plugs placed in the past. She would like to hold off on these for now. Assessment & Plan (09/25/2020 3:38 PM EDT): Discussed the use of warm compresses and lid hygiene. Also discussed use of artificial tears during the day and gel at night. Patient used restasis in the past and has had plugs placed in the past. She would like to hold off on these for now. Assessment & Plan (10/23/2018 2:45 PM EDT): Discussed the use of warm compresses and lid hygiene. Also discussed use of artificial tears during the day and gel at night. Patient already taking restasis and will continue. Discussed options with patient and will proceed with punctal plugs today. Assessment & Plan (06/15/2018 2:38 PM EST): Discussed the use of warm compresses and lid hygiene. Also discussed use of artificial tears during the day and gel at night. Patient already taking restasis and will continue. Assessment & Plan (05/08/2018 8:53 AM EST): Discussed the use of warm compresses and lid hygiene. Also discussed use of artificial tears during the day and gel at night. Patient already taking restasis and will continue. Pseudophakia 05/08/2018 Assessment & Plan (08/16/2024 2:03 PM EDT): s/p CEIOL (CPT 97899) for Nuclear sclerotic cataract of right eye [H25.11] on 08/27/2020. s/p CEIOL (CPT 42842) for Nuclear sclerotic cataract of left eye [H25.12] on 07/30/2020. Has developed PCO. Discussed findings, options and risks with patient. She would like to monitor at this time. Assessment & Plan (02/03/2023 2:57 PM EDT): s/p CEIOL (CPT 82718) for Nuclear sclerotic cataract of right eye [H25.11] on 08/27/2020. s/p CEIOL (CPT 08675) for Nuclear sclerotic cataract of left eye [H25.12] on 07/30/2020. Assessment & Plan (10/08/2021 1:20 PM EDT): s/p CEIOL (CPT 48452) for Nuclear sclerotic cataract of right eye [H25.11] on 08/27/2020. s/p CEIOL (CPT 71835) for Nuclear sclerotic cataract of left eye [H25.12] on 07/30/2020. Assessment & Plan (09/25/2020 3:35 PM EDT): s/p CEIOL (CPT 85328) for Nuclear sclerotic cataract of right eye [H25.11] on 08/27/2020. Patient healing as expected. s/p CEIOL (CPT 78520) for Nuclear sclerotic cataract of left eye [H25.12] on 07/30/2020. Patient healing as expected. Assessment & Plan (09/04/2020 4:12 PM EDT): POW1 s/p CEIOL (CPT 88081) for Nuclear sclerotic cataract of right eye [H25.11] on 08/27/2020. Patient healing as expected. Continue post op precautions. Patient to follow up in 3 week(s) s/p CEIOL (CPT 16520) for Nuclear sclerotic cataract of left eye [H25.12] on 07/30/2020. Patient healing as expected. Assessment & Plan (08/28/2020 2:59 PM EDT): POD1 s/p CEIOL (CPT 04710) for Nuclear sclerotic cataract of right eye [H25.11] on 08/27/2020. Patient healing as expected. Continue post op precautions. Patient to follow up in 1 week(s) s/p CEIOL (CPT 25376) for Nuclear sclerotic cataract of left eye [H25.12] on 07/30/2020. Patient healing as expected. Assessment & Plan (08/07/2020 3:10 PM EDT): Patient states that activities of daily living have reduced significantly enough to warrant surgery. Discussed options with patient including goals of surgery and available options. Discussed risks and benefits of surgery and patient would like to proceed with cataract extraction with lens implantation. Corneal thickness is less than 625. Patient would like to proceed with standard. s/p CEIOL (CPT 69824) for Nuclear sclerotic cataract of left eye [H25.12] on 07/30/2020. Patient healing as expected. Assessment & Plan (07/31/2020 2:50 PM EDT): POD1 s/p CEIOL (CPT 94294) for Nuclear sclerotic cataract of left eye [H25.12] on 07/30/2020. Patient healing as expected. Continue post op precautions. Patient to follow up in 1 week(s) Assessment & Plan (07/10/2020 4:48 PM EST): Patient states that activities of daily living have reduced significantly enough to warrant surgery. Discussed options with patient including goals of surgery and available options. Discussed risks and benefits of surgery and patient would like to proceed with cataract extraction with lens implantation. Corneal thickness is less than 625. Patient would like to proceed with standard. Assessment & Plan (06/15/2018 2:38 PM EST): No surgery indicated. Patient states activities of daily living not reduced enough to proceed with surgery at this time. Discussed natural history of cataract progression and that patient can return at any time if symptoms worsen. Patient expressed understanding. Assessment & Plan (05/08/2018 8:53 AM EST): No surgery indicated. Patient states activities of daily living not reduced enough to proceed with surgery at this time. Discussed natural history of cataract progression and that patient can return at any time if symptoms worsen. Patient expressed understanding. Bilateral ocular hypertension 05/08/2018 Assessment & Plan (08/16/2024 2:03 PM EDT): Patient with risk factors for glaucoma but does not appear to have conclusive evidence of glaucoma damage at this time. Will continue to monitor for changes. Discussed risk of permanent blindness without proper treatment and follow up. Patient expressed understanding. Max IOP with applanation 23, 22 with icare, lower with applanation. Goal IOP < 21 IOP excellent today without medication. Monitor. HVF 30-2 wnl OD, OS inferior defects 08/2023 (optic neuropathy OS) 30-2 stable OU Orders: OCT, OPTIC NERVE - OU - BOTH EYES Assessment & Plan (08/18/2023 12:52 PM EDT): Patient with risk factors for glaucoma but does not appear to have conclusive evidence of glaucoma damage at this time. Will continue to monitor for changes. Discussed risk of permanent blindness without proper treatment and follow up. Patient expressed understanding. Max IOP with applanation 23, 22 with icare, lower with applanation. Goal IOP < 21 IOP excellent today without medication. Monitor. HVF 30-2 wnl OD, OS inferior defects 08/2023 (optic neuropathy OS) Assessment & Plan (02/03/2023 2:58 PM EDT): Patient with risk factors for glaucoma but does not appear to have conclusive evidence of glaucoma damage at this time. Will continue to monitor for changes. Discussed risk of permanent blindness without proper treatment and follow up. Patient expressed understanding. Max IOP with applanation 23, 22 with icare, lower with applnation. Goal IOP < 21 IOP excellent today without medication. Monitor. Assessment & Plan (05/20/2022 1:51 PM EST): Patient with risk factors for glaucoma but does not appear to have conclusive evidence of glaucoma damage at this time. Will continue to monitor for changes. Discussed risk of permanent blindness without proper treatment and follow up. Patient expressed understanding. Max IOP with applanation 23, 22 with icare, lower with applnation. Goal IOP < 21 IOP excellent today without medication. Monitor. Assessment & Plan (10/08/2021 1:20 PM EDT): Patient with risk factors for glaucoma but does not appear to have conclusive evidence of glaucoma damage at this time. Will continue to monitor for changes. Discussed risk of permanent blindness without proper treatment and follow up. Patient expressed understanding. Max IOP with applanation 18, 18 IOP excellent today without medication. Monitor. Assessment & Plan (10/23/2018 2:45 PM EDT): Patient with risk factors for glaucoma but does not appear to have conclusive evidence of glaucoma damage at this time. Will continue to monitor for changes. Discussed risk of permanent blindness without proper treatment and follow up. Patient expressed understanding. IOP excellent today. Monitor. Assessment & Plan (06/15/2018 2:40 PM EST): Patient with risk factors for glaucoma but does not appear to have conclusive evidence of glaucoma damage at this time. Will continue to monitor for changes. Discussed risk of permanent blindness without proper treatment and follow up. Patient expressed understanding. IOP excellent today. Monitor. Assessment & Plan (05/08/2018 8:56 AM EST): Patient with risk factors for glaucoma but does not appear to have conclusive evidence of glaucoma damage at this time. Will continue to monitor for changes. Discussed risk of permanent blindness without proper treatment and follow up. Patient expressed understanding. 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 C/d enlarged OS > OD and IOP OS > OD. VF 30-2 Inferior dense defects OS, scattered defects OD. Stable. 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 C/d enlarged OS > OD and IOP OS > OD. VF 30-2 Inferior dense defects OS, scattered defects OD. 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 C/d enlarged OS > OD and IOP OS > OD. 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 C/d enlarged OS > OD and IOP OS > OD. 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 C/d enlarged OS > OD and IOP OS > OD. VF 30-2 Inferior dense defects OS, scattered defects OD Stable via OCT at this time, continue to monitor. 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 C/d enlarged OS > OD and IOP OS > OD. VF 30-2 Inferior dense defects OS, scattered defects OD Stable via OCT at this time, continue to monitor. 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 C/d enlarged OS > OD and IOP OS > OD. 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 C/d enlarged OS > OD and IOP OS > OD. 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 C/d enlarged OS > OD and IOP OS > OD. Acquired hypothyroidism 04/25/2018 Gastroesophageal reflux disease without esophagi tis 04/25/2018 Resolved Problems Problem Noted Date Diagnosed Date Resolved Date Neurogenic claudication 03/10/2023 11/0 12/2022 Hematuria 11/13/2020 03/10/2023 Cauda equina syndrome with neurogenic bladder 10/16/19 21 03/10/2023 Immunizations Immunization Administration Dates Next Due Influenza High Dose 01/18/2019 Moderna SARS-CoV-2 Vaccine 12+ Yrs (Light blue b order) 11/29/2020 Pneumococcal Conjugate Vaccine 13 Valent 010 Pneumococcal Polysaccharide 23 Valent 01/18/2019 Family History Medical History Relation Name Comments Heart Attack Father High Cholesterol Father High Cholesterol Sister 1 Anesth Problems Neg Hx Cataracts Neg Hx Glaucoma Neg Hx Macular Degen Neg Hx Relation Name Status Comments Brother 1 Brother 2 Brother 3 Brother 4 Father Mother Sister 1 Sister 2 Sister 3 Alive Social History Smoking Status as of 11/07/2024 Tobacco Use Types Packs/Day Years Used Date Smoking Tobacco: Never Assessed Overall Financial Resource Strain (CARDIA) Answe r Date Recorded How hard is it for you to pa y for the very basics like food, housing, medical care, and heating? Not hard at all 11/25/2020 PHQ-2 Answer Date Recorded PHQ-2 Total Score 0 07/28/2022 [facility] - Occupational Stress Questionnaire Answer Date Recorded [...] things needed for daily living? No 11/25/2020 Sex and Gender Information Value Date Recorded Sex Assigned at Not on file Legal Sex Female 7:55 PM EDT Gender Identity Not on file Sexual Orientation Not on file Last Filed Vital Signs Vital Sign Reading Time Taken Comments Blood Pressure 192/110 10/14/2022 2:39 PM EDT Pulse 64 08/27/2022 2:14 PM EDT Temperature 36.8 C (98.2 F) 07/28/2022 2:07 PM EDT Respiratory Rate 14 07/28/2022 2:07 PM EDT Oxygen Saturation 99% 08/27/2022 2:14 PM EDT Inhaled Oxygen Concentration - - Weight 74.4 kg (164 lb) 10/14/2022 2:39 PM EDT Height 165.1 cm (5' 5 ) 10/14/2022 2:39 PM EDT Body Mass Index 27.29 10/14/2022 2:39 PM EDT Plan of Treatment Upcoming Encounters Date Type Department Care Team (Late st Contact Info) Description 08/15/2025 1:40 PM EDT Office Visit SEP Ophthalmology Cov [address] [phone] Na Ang MD [address] [phone] Medical Devices Implanted Type Area Quill Cleaner Device Identifier Shelf Expiration Date Model / Serial / Lot Lens +22.5d 6x13mm Arcysof Iq Ultrasert [id number] Pc 1-Pc - [id number] Implanted:Qty: 1 on 07/30/2020 by Na Ang MD at [facility] Left: Eye [facility]G [id number] 02/25/2023 AU00T0 .225 / [id number] / Lens +23d 6x13mm Arcysof Iq Ultrasert [id number] Pc 1-Pc Basell - [id number] Implanted:Qty: 1 on 08/27/2020 by Na Ang MD at [facility] Right: Eye [facility] [id number] 03/21/2023 AU00T0.230 / [id number] / Procedures Procedure Name Priority Date/Time Associated Diagnosis Comments OCT, OPTIC NERVE - OU - BOTH EYES Routine 08/16/2024 2:02 PM EDT Bilateral ocular hypertension GRUBBS VISUAL FIELD - OU - BOTH EYES Routine 08/18/2023 12:54 PM EDT Bilateral ocular hypertension XR CERVICAL SPINE AP AND LATERAL Routine 09/16/2022 1:45 PM EDT Cervical pain DC ARTHROCENTESIS ASPIR&/INJ MAJOR JT/BURSA W/O US Routine 09/16/2022 1:30 PM EDT Trochanteric bursitis of right hip NM GASTRIC EMPTYING Routine 08/19/2022 12:17 PM EDT Gastroesophageal reflux disease with esophagitis without hemorrhage SCANNED LABS 08/02/2022 5:50 PM EDT SEP URINALYSIS POC Routine 07/26/2022 10:33 AM EDT Group beta Strep positive LACTIC ACID STAT 07/18/2022 4:12 PM EDT BASIC METABOLIC PANEL STAT 07/18/2022 4:12 PM EDT CBC WITH DIFF STAT 07/18/2022 4:12 PM EDT URINALYSIS REFLEX STAT 07/18/2022 2:45 PM EDT UA W/REFLEX TO CULTURE STAT 07/18/2022 2:45 PM EDT URINE CULTURE (NO STAIN) STAT 07/18/2022 2:45 PM EDT EXTRA [place] URINE CX STAT 07/18/2022 2:45 PM EDT XR LUMBAR SPINE AP AND LATERAL Routine 07/07/2022 1:02 PM EST Lumbar pain GAMMA GLUTAMYL TRANSFERASE Routine 06/22/2022 1:15 PM EST Peripheral neuropathy, idiopathic Nail disease Macronychia Encounter for laboratory testing for COVID-19 virus Essential hypertension Other hyperlipidemia Acquired hypothyroidism Pre-op testing HEPATIC FUNCTION PANEL Callback 06/22/2022 1:15 PM EST Peripheral neuropathy, idiopathic Nail disease OCT, OPTIC NERVE - OU - BOTH EYES Routine 05/20/2022 1:52 PM EST Bilateral ocular hypertension CT ABDOMEN PELVIS WO ORAL OR IV CONTRAST Routine 05/12/2022 1:40 PM EST Abdominal pain, unspecified abdominal location NON-SHIPPING CLERK CRATING CYTOLOGY REQUEST Routine 05/05/2022 4:39 PM EST Microhematuria URINALYSIS Routine 05/05/2022 4:39 PM EST Microhematuria URINE CULTURE (NO STAIN) Routine 05/05/2022 4:39 PM EST Microhematuria SEP URINALYSIS POC Routine 05/05/2022 3:21 PM EST Microhematuria URINALYSIS STAT 04/28/2022 7:23 AM EST UA W/REFLEX TO CULTURE STAT 04/28/2022 7:23 AM EST EXTRA [place] URINE CX STAT 04/28/2022 7:23 AM EST [id number]-[id number] A/B Routine 04/28/2022 6:38 AM EST EMG Routine 02/18/2022 Pain in both lower extremities XR CHEST PA AND LATERAL STAT 01/26/2022 2:27 PM EDT Cough, unspecified type POCT BLADDER SCAN Routine 12/15/2021 1:18 PM EDT Incomplete bladder emptying SEP URINALYSIS POC Routine 12/15/2021 1:11 PM EDT Urinary retention URINALYSIS STAT 10/29/2021 3:07 AM EDT EXTRA [place] URINE CX STAT 10/29/2021 3:07 AM EDT COMPREHENSIVE METABOLIC PANEL STAT 10/29/2021 3:04 AM EDT CBC WITH DIFF STAT 10/29/2021 3:04 AM EDT XR ACUTE ABDOMEN SUPINE ERECT AND OR DECUBITUS W 1 VW CHEST ARTEM 10/29/2021 3:02 AM EDT OCT, OPTIC NERVE - OU - BOTH EYES Routine 10/08/2021 1:21 PM EDT Bilateral ocular hypertension POCT BLADDER SCAN Routine 08/18/2021 11:13 AM EDT Feeling of incomplete bladder emptying SEP URINALYSIS POC Routine 08/18/2021 11:08 AM EDT Feeling of incomplete bladder emptying MRI LUMBAR SPINE WO CONTRAST ARTEM 05/20/2021 1:06 PM EST Acute bilateral low back pain without sciatica XR LUMBAR SPINE AP AND LATERAL ARTEM 04/30/2021 9:57 PM EST POCT EDIL FLU+SARS ANTIGEN Routine 04/16/2021 11:25 AM EST Upper respiratory tract infection, unspecified type CORONAVIRUS 2019 Routine 04/16/2021 11:24 AM EST Upper respiratory tract infection, unspecified type URINE CULTURE (NO STAIN) Routine 04/16/2021 11:02 AM EST Dysuria UTI symptoms POCT BLADDER SCAN Routine 04/16/2021 10:11 AM EST Incomplete bladder emptying SEP URINALYSIS POC Routine 04/16/2021 10:07 AM EST Dysuria POCT EKG Routine 04/10/2021 11:36 AM EST Muscle strain of chest wall, initial encounter BASIC METABOLIC PANEL Routine 03/24/2021 SCANNED EKG 12/12/2020 10:[address] ABD PEL ED FAST W CONTRAST STAT 12/11/2020 3:13 PM EDT TROPONIN-T HIGH SENSITIVITY 2HR Timed 12/11/2020 2:09 PM EDT CORONAVIRUS 2019 POCT Routine 12/11/2020 12:48 PM EDT EK EKG 12 LEAD STAT 12/11/2020 12:37 PM EDT URINALYSIS STAT 12/11/2020 12:06 PM EDT EXTRA [place] URINE CX STAT 12/11/2020 12:06 PM EDT LIPASE LEVEL Add-On 12/11/2020 12:02 PM EDT TROPONIN-T HIGH SENSITIVITY BASELINE W/ REFLEX STAT 12/11/2020 12:02 PM EDT LACTIC ACID STAT 12/11/2020 12:02 PM EDT COMPREHENSIVE METABOLIC PANEL STAT 12/11/2020 12:02 PM EDT CBC WITH DIFF STAT 12/11/2020 12:02 PM EDT SALINE LOCK IV STAT 12/11/2020 11:46 AM EDT SCANNED RHYTHM STRIPS 12/09/2020 10:22 AM EDT PERIPHERAL BLOCK Routine 12/08/2020 2:08 PM EDT PERIPHERAL BLOCK Routine 12/08/2020 2:06 PM EDT PATHOLOGY TISSUE REQUEST Routine 12/08/2020 1:55 PM EDT Calculus of gallbladder without cholecystitis without obstruction INTRAOP AIRWAY PLACEMENT Routine 12/08/2020 1:46 PM EDT DAVINCI ROBOTIC CHOLECYSTECTOMY 12/08/2020 1:38 PM EDT Calculus of gallbladder without cholecystitis without obstruction CORONAVIRUS 2019 Routine 12/04/2020 1:11 PM EDT Pre-op testing Encounter for laboratory testing for COVID-[address] ABD PEL ED FAST W CONTRAST STAT 11/18/2020 3:32 PM EDT URINALYSIS STAT 11/18/2020 2:56 PM EDT EXTRA [place] URINE CX STAT 11/18/2020 2:56 PM EDT COMPREHENSIVE METABOLIC PANEL STAT 11/18/2020 2:42 PM EDT LIPASE LEVEL STAT 11/18/2020 2:42 PM EDT CBC WITH DIFF STAT 11/18/2020 2:42 PM EDT SALINE LOCK IV STAT 11/18/2020 2:38 PM EDT SEP URINALYSIS POC Routine 11/13/2020 4:38 PM EDT Urinary frequency URINE CULTURE (NO STAIN) Routine 11/13/2020 4:30 PM EDT Urinary frequency POCT BLADDER SCAN Routine 10/16/2020 9:44 AM EDT Incomplete bladder emptying SEP URINALYSIS POC Routine 10/16/2020 9:25 AM EDT Incomplete bladder emptying Stranguria Microhematuria Nocturia Frequency of micturition SCANNED LABS 09/26/2020 2:09 PM EDT COMPLIANCE PANEL, URINE Routine 09/19/2020 10:54 AM EDT Encounter for therapeutic drug monitoring MRI ANKLE LEFT WO CONTRAST Routine 09/03/2020 5:48 PM EDT Arthritis of left ankle INTRAOP AIRWAY PLACEMENT Routine 08/27/2020 12:39 PM EDT CATARACT EXTRACTION WITH PHACOEMULSIFICATION AND INTRAOCULAR LENS 08/27/2020 12:33 PM EDT Nuclear sclerotic cataract of right eye Special Needs AU00T0 23.00 CORONAVIRUS 2019 Routine 08/23/2020 1:19 PM EDT Pre-op testing Encounter for laboratory testing for COVID-19 virus MAGNESIUM LEVEL Routine 08/22/2020 2:29 PM EDT Peripheral neuropathy, idiopathic VITAMIN B12/ FOLIC ACID Routine 08/22/2020 2:29 PM EDT Peripheral neuropathy, idiopathic CBC WITH DIFF Routine 08/22/2020 2:29 PM EDT Peripheral neuropathy, idiopathic TSH REFLEX TO FT4 Routine 08/22/2020 2:29 PM EDT Acquired hypothyroidism LIPID PANEL REFLEX Routine 08/22/2020 2:29 PM EDT Essential hypertension Other hyperlipidemia COMPREHENSIVE METABOLIC PANEL Routine 08/22/2020 2:29 PM EDT Essential hypertension Other hyperlipidemia IOL BIOMETRY - OU - BOTH EYES Routine 07/31/2020 2:50 PM EDT Nuclear sclerotic cataract of left eye INTRAOP AIRWAY PLACEMENT Routine 07/30/2020 2:24 PM EDT CATARACT EXTRACTION WITH PHACOEMULSIFICATION AND INTRAOCULAR LENS 07/30/2020 2:18 PM EDT Nuclear sclerotic cataract of left eye CORONAVIRUS 2019 Routine 07/26/2020 1:01 PM EDT Pre-op testing Encounter for laboratory testing for COVID-19 virus OCT, OPTIC NERVE - OU - BOTH EYES Routine 07/10/2020 4:51 PM EST Anatomical narrow angle, bilateral US RENAL AND BLADDER Routine 04/22/2020 1:25 PM EST Incomplete bladder emptying POCT BLADDER SCAN Routine 04/17/2020 10:19 AM EST Incomplete bladder emptying Stranguria Slow transit constipation Cauda equina syndrome with neurogenic bladder (HCC) SEP URINALYSIS POC Routine 04/17/2020 10:13 AM EST Incomplete bladder emptying Stranguria POCT EDIL SARS ANTIGEN Routine 02/21/2020 2:02 PM EDT Upper respiratory tract infection, unspecified type XR CHEST PA AND LATERAL Routine 01/31/2020 12:27 PM EDT Subcutaneous mass of supraclavicular area DX BONE DENSITY AXIAL SKELETON Routine 01/18/2020 12:51 PM EDT Post-menopausal SEDIMENTATION RATE AUTOMATED Routine 01/08/2020 1:53 PM EDT Acute pain of both shoulders C-REACTIVE PROTEIN Routine 01/08/2020 1:53 PM EDT Acute pain of both shoulders EK EKG CVMHU SCREENING Routine 12/19/2019 12:15 PM EDT Screening for cardiovascular condition VA US VASCULAR CVMHU SCREENING SINGLE EXAM Routine 12/19/2019 12:14 PM EDT Screening for cardiovascular condition SCANNED LABS 11/08/2019 11:49 AM EDT URINALYSIS Routine 10/30/2019 2:29 PM EDT Stranguria Frequency of micturition SEP URINALYSIS POC Routine 10/30/2019 2:08 PM EDT Stranguria Frequency of micturition GMED COLONOSCOPY Routine 07/11/2019 12:30 PM EDT PATHOLOGY TISSUE REQUEST Routine 07/11/2019 12:30 PM EDT Personal history of colonic polyps Other specified diseases of intestine POCT BLADDER SCAN Routine 05/24/2019 1:50 PM EST Incomplete bladder emptying URINALYSIS Routine 05/24/2019 1:50 PM EST Dysuria POCT URINALYSIS DIPSTICK Routine 05/24/2019 1:49 PM EST Dysuria POCT URINALYSIS DIPSTICK Routine 05/04/2019 2:29 PM EST Acute UTI URINALYSIS Routine 05/04/2019 2:22 PM EST Acute UTI Microhematuria URINE CULTURE (NO STAIN) Routine 05/04/2019 2:22 PM EST Acute UTI Microhematuria URINE CULTURE (NO STAIN) Routine 04/30/2019 12:03 PM EST Dysuria POCT BLADDER SCAN Routine 04/30/2019 9:15 AM EST Incomplete bladder emptying Dysuria POCT URINALYSIS DIPSTICK Routine 04/30/2019 9:02 AM EST Incomplete bladder emptying Dysuria POCT BLADDER SCAN Routine 04/05/2019 9:49 AM EST Incomplete bladder emptying POCT URINALYSIS DIPSTICK Routine 04/05/2019 9:49 AM EST Incomplete bladder emptying URINE CULTURE (NO STAIN) Routine 03/14/2019 2:02 PM EST Dysuria MM MAMMO DIGITAL SCREENING W CAD BILAT Routine 03/10/2019 2:24 PM EST Encounter for screening mammogram for malignant neoplasm of breast URINE CULTURE (NO STAIN) Routine 02/24/2019 1:42 PM EDT UTI symptoms POCT URINALYSIS AUTOMATED Routine 02/24/2019 1:41 PM EDT UTI symptoms POCT EKG Routine 01/18/2019 1:10 PM EDT Chest pain, unspecified type SOB (shortness of breath) TSH REFLEX TO FT4 Routine 12/04/2018 10:32 AM EDT Acquired hypothyroidism COMPREHENSIVE METABOLIC PANEL Routine 12/04/2018 10:32 AM EDT Essential hypertension XR ABDOMEN AP Routine 11/23/2018 10:17 AM EDT Slow transit constipation URINE CULTURE (NO STAIN) Routine 11/23/2018 9:13 AM EDT Incomplete bladder emptying URINALYSIS Routine 11/23/2018 9:08 AM EDT Incomplete bladder emptying POCT BLADDER SCAN Routine 11/23/2018 9:05 AM EDT Incomplete bladder emptying POCT URINALYSIS DIPSTICK Routine 11/23/2018 9:03 AM EDT Incomplete bladder emptying POCT BLADDER SCAN Routine 10/05/2018 9:53 AM EDT Incomplete bladder emptying CT ANGIOGRAM CORONARY W CONTRAST Routine 09/20/2018 11:17 AM EDT Screening for condition CREATININE ISTAT Routine 09/20/2018 10:36 AM EDT URINALYSIS Routine 09/07/2018 9:25 AM EDT Urine frequency POCT BLADDER SCAN Routine 09/07/2018 9:12 AM EDT Urine frequency POCT URINALYSIS DIPSTICK Routine 09/07/2018 9:06 AM EDT Urine frequency VA US VISCERAL VASCULAR COMPLETE Routine 07/03/2018 11:27 AM EST Uncontrolled hypertension SOB (shortness of breath) Dizziness Chest pain, unspecified type Mixed hyperlipidemia Bradycardia Labile hypertension URINALYSIS STAT 06/15/2018 12:22 AM EST EXTRA [place] URINE CX STAT 06/15/2018 12:22 AM EST BASIC METABOLIC PANEL Add-On 06/14/2018 11:56 PM EST CBC WITH DIFF Add-On 06/14/2018 11:56 PM EST EXTRA MINT GREEN LI STAT 06/14/2018 11:56 PM EST EXTRA LIGHT BLUE STAT 06/14/2018 11:56 PM EST EXTRA LAVENDER STAT 06/14/2018 11:56 PM EST ED RAINBOW DRAW STAT 06/14/2018 11:56 PM EST GRUBBS VISUAL FIELD - OU - BOTH EYES Routine 06/02/2018 3:28 PM EST Optic neuropathy, left SCANNED EKG 05/31/2018 9:17 AM EST XR CHEST PA AND LATERAL ARTEM 05/29/2018 2:27 PM EST TROPONIN-T HIGH SENSITIVITY BASELINE W/ REFLEX STAT 05/29/2018 2:15 PM EST BASIC METABOLIC PANEL STAT 05/29/2018 2:15 PM EST CBC WITH DIFF STAT 05/29/2018 2:15 PM EST EK EKG 12 LEAD STAT 05/29/2018 1:44 PM EST EC ECHOCARDIOGRAM COMPLETE W DOPPLER AND COLOR FLOW MAPPING Routine 05/09/2018 1:50 PM EST Uncontrolled hypertension Chest pain, unspecified type SOB (shortness of breath) Dizziness Bradycardia Mixed hyperlipidemia Heart murmur OCT, OPTIC NERVE - OU - BOTH EYES Routine 05/08/2018 9:05 AM EST Bilateral ocular hypertension SCANNED EKG 04/26/2018 9:44 AM EST XR CHEST PA AND LATERAL ARTEM 04/25/2018 8:22 AM EST ECG AND WAVEFORMS - TELEMETRY Routine 04/25/2018 7:24 AM EST ECG AND WAVEFORMS - TELEMETRY Routine 04/25/2018 7:00 AM EST LIPID SCREEN Routine 04/25/2018 4:30 AM EST TROPONIN-T HIGH SENSITIVITY BASELINE W/ REFLEX Timed 04/25/2018 4:30 AM EST TROPONIN-T HIGH SENSITIVITY BASELINE W/ REFLEX Timed 04/25/2018 12:[address] ANGIOGRAM HEAD AND NECK W CONTRAST ARTEM 04/24/2018 10:[address] HEAD STROKE PROTOCOL STAT 04/24/2018 10:22 PM EST TROPONIN-T HIGH SENSITIVITY BASELINE W/ REFLEX STAT 04/24/2018 10:10 PM EST GLUCOSE METER POC Routine 04/24/2018 10:01 PM EST ECG AND WAVEFORMS - TELEMETRY Routine 04/24/2018 9:48 PM EST IP CONSULT TO CARDIOLOGY STAT 04/24/2018 9:35 PM EST Procedure Note - Concepcion Louise ARNP - 04/25/2018 6:16 AM ESTThis note is in progress. 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 checked bp 200[facility] continued to be elevated. Presented to ED. States amlodipine wasstopped on 04/07 for nausea. Started on cardizem but stopped due to facialswelling. Started on Benicar and Bystolic. Denies any chest pain,pressure or tightness. Does report intermittent transient dizziness. Noneck, jaw, back or arm pain. No syncope, diaphoresis, palpitations. Noorthopnea, pedal edema, weight fluctuations, PND. Past Medical History Past Medical History: Diagnosis Date High triglycerides Hyperlipemia Hypertension Thyroid disease hypothyroidism Medication No current facility-administered medications on file prior to encounter. Current Outpatient Prescriptions on File Prior to Encounter Medication Sig Dispense Refill atorvastatin (LIPITOR) 20 mg Oral Tablet Take 20 mg by mouth nightly. carboxymethylcellulose sodium (REFRESH OPHT) Apply to eye. Cholecalciferol, Vitamin D3, (VITAMIN D3) 5,000 unit Oral Tablet Takeby mouth. Hyoscyamine Sulfate 0.125 mg Oral Tablet, Rapid Dissolve Take by mouth4 times daily as needed. levothyroxine (SYNTHROID) 75 mcg Oral Tablet Take by mouth daily. nebivolol (BYSTOLIC) 10 mg Oral Tablet Take 10 mg by mouth daily. olmesartan (BENICAR) 20 mg Oral Tablet Take 1 Tab by mouth 2 timesdaily. 60 Tab 5 fluticasone (FLONASE) 50 mcg/actuation Nasl Ladora, Suspension 1 [place] byNasal route daily. (Patient not taking: Reported on 04/24/2018) 1 Bottle 2 Scheduled Meds: atorvastatin 20 mg Oral Nightly LEVOthyroxine 75 mcg Oral DAILY EARLY AM losartan 50 mg Oral Daily nebivolol 10 mg Oral Daily pantoprazole 40 mg Oral BID Continuous Infusions: Past Surgical History Past Surgical History: Procedure Laterality Date BACK SURGERY COLONOSCOPY HYSTERECTOMY POLYPECTOMY TONSILLECTOMY Allergy Allergies Allergen Reactions Amlodipine Nausea Only Cipro Xr [Ciprofloxacin (Mixture)] Codeine Lisinopril Morphine Other (See Comments) convulsions Naprosyn [Naproxen] Nausea And Vomiting Sulfa (Sulfonamide Antibiotics) Family History Family History Problem Relation Age of Onset Heart Attack Father High Cholesterol Father High Cholesterol Sister Social History Social History Substance Use Topics Smoking status: Never Smoker Smokeless tobacco: Never Used Alcohol use No Review of Systems Denies or negative for the following: Constitutional: fever, chills, weight loss, weight gain, falls ENT: headaches, visual changes Cardiovascular: see HPI Pulmonary: cough, sputum production, wheezing, hemoptysis Gastrointestinal: abdominal pain, vomiting, constipation, diarrhea,hematochezia, melena Genitourinary: change in bladder habits, hematuria Musculoskeletal: weakness, joint complaints Integumentary: rash Endocrine: fatigue Hematologic/Lymphatic: abnormal bruising or excessive bleeding Allergic/Immunologic: hives Objective: BP 155/67 (BP Location: Right arm, Patient Position: Semi Fowlers) Pulse 79 Temp 97.6 F (36.4 C) (Oral) Resp 16 Ht 5' 5 (1.651 m) Wt 167 lb 9.6 oz (76 kg) SpO2 98% ? No BMI 27.89kg/m General: alert, appears stated age, cooperative and no distress Oropharynx: normal Neck: nontender, no carotid bruit, no JVD, thyroid nonenlarged Lung: clear to auscultation bilaterally Heart: regular rate and rhythm and S1, S2 normal Abdomen: soft, non-tender. Bowel sounds normal. No masses, no organomegaly Extremities: extremities normal, atraumatic, no cyanosis or edema Pulses: 2+ and symmetric bilaterally,brachial, radial, inquinal,popliteal, posterior tibial and dorsalis pedis Skin: Warm and dry Neuro: No obvious focal deficits Diagnostic tests Lab Results Component Value Date WBC 5.6 04/24/2018 HGB 13.7 04/24/2018 HCT 41.0 04/24/2018 PLT 259 04/24/2018 Lab Results Component Value Date CREATININE 0.75 04/24/2018 BUN 13 04/24/2018 NA 141 04/24/2018 K 3.8 04/24/2018 CL 104 04/24/2018 CO2 25 04/24/2018 No results found for: CHOLESTEROL, TRIG, HDL, LDLDIRECT, LDLCALC Lab Results Component Value Date ALT 72 (A) 04/11/2018 AST 45 (A) 04/11/2018 Lab Results Component Value Date TSH 1.660 04/11/2018 No results found for: INR No results found for: CKTOTAL, CKMB, CKMBINDEX, TROPONINI Ct Head Stroke Protocol Result Date: 04/24/2018 CT HEAD STROKE PROTOCOL 04/24/2018 10:22 PM CLINICAL HISTORY: -Stroke.Dizziness. Left-sided numbness. COMPARISON: None. PROCEDURE COMMENTS:Stroke protocol head CT. Multiplanar MIPS. Automated exposure controlfor dose reduction was used. CTDIvol: 47.5 mGy. DLP: 789 mGy-cm. FINDINGS:Normal ventricles. Minimal bilateral globus pallidus calcificationconsidered physiologic. No abnormal parenchymal attenuation. No evidenceof acute stroke, mass, or hemorrhage. No fracture or extra-axialcollection. No hyperdense vessel segments. Included portions of theparanasal sinuses, mastoids, and orbits unremarkable. Normal exam. To expedite care, perez exam findings were urgently telephonedto patient's charge nurse Claire by Dr. Sanchez at 04/24/2018 10:30 PM. Ek Ekg 12 Lead Result Date: 04/25/2018 NOTICE: Preliminary tracing available for review; Final Interpretation byphysician to follow. Stationary ECG StudySt. Jayna De La OInterpretive StatementsSINUS RHYTHM WITH FIRST DEGREE AV BLOCK NO PRIOR ECG FOR COMPARISONElectronically Signed On 04-25-2018 1:40:24 EST by Arthur Berry MD Ct Angiogram Head And Neck W Contrast Result Date: 04/24/2018 CT ANGIOGRAM HEAD AND NECK W CONTRAST, 04/24/2018 10:48 PM CLINICALHISTORY: -left sided numbness. Code Stroke. CT head stroke protocol 2213hours today. COMPARISON: None. PROCEDURE COMMENTS: Following theintravenous administration of 75 mL Isovue 370, thin section helicalimages obtained from the aortic arch to the top of the head and bothsagittal and coronal reconstructions performed. Two-dimensional as well asthree-dimensional maximum intensity projection reconstructions werereviewed.. Automated exposure control for dose reduction was used.CTDIvol: 2.4 - 9.1 mGy. DLP: 385 mGy-cm. FINDINGS: Arch anatomy isstandard. The proximal great vessels are patent. Both carotid arteries arepatent. There is minimal atherosclerotic disease at the bulb. The rightvertebral artery is diminutive, as it terminates at PICA. The leftvertebral artery is dominant. There is no acute vertebral arteryabnormality identified. Intracranial circulation shows no aneurysm orocclusion. There is a diminutive A1 segment on the right with a prominentanterior communicating artery and dominant left A1 segment supplyinganterior cerebral arteries. Both middle cerebral arteries are patent. Bothposterior cerebral arteries are visualized. There is mild cervicaldegenerative change present. Upper mediastinum is unremarkable. 1. No acute abnormality of arterial structures within the neck. 2. Noacute intracranial abnormality. Variant developmental anatomy as noted.Note: Any carotid stenosis was calculated using NASCET criteria Telemetry: sinus, rate 60's The most recent cardiovascular [facility] werereviewed at time of consultation Assessment: 1. Hypertensive urgency 246/85 in ED 2. Hyperlipidemia No myalgia 3. Hypothyroidism 4. Bradycardia HR in 50-60's Plan: Add hydrochlorothiazide Continue bystolic and losartan cxr Recheck troponin Anticipate discharge later today if bp remains stable Advise to keep BP log at home Follow low sodium / no added salt diet Follow up with Dr. Biggs in office 1-2 weeks - pt to call tomorrow forappt Further input to follow per Dr. Jamal Louise APRN EK EKG 12 LEAD STAT 04/24/2018 5:42 PM EST BASIC METABOLIC PANEL Add-On 04/24/2018 5:35 PM EST CBC WITH DIFF Add-On 04/24/2018 5:35 PM EST EXTRA MINT GREEN LI Routine 04/24/2018 5:35 PM EST EXTRA LIGHT BLUE Routine 04/24/2018 5:35 PM EST EXTRA LAVENDER Routine 04/24/2018 5:35 PM EST ED RAINBOW DRAW Routine 04/24/2018 5:35 PM EST GLUCOSE METER POC Routine 04/24/2018 5:29 PM EST CBC WITH DIFF Routine 04/11/2018 COMPREHENSIVE METABOLIC PANEL Routine 04/11/2018 MM MAMMO DIGITAL SCREENING W CAD BILAT Routine 01/31/2018 1:10 PM EDT Encounter for screening mammogram for malignant neoplasm of breast HM DEXA SCAN Routine 10/07/2017 Medicare annual wellness visit, subsequent MM MAMMO DIGITAL SCREENING W CAD BILAT Routine 10/15/2016 2:06 PM EDT Encounter for screening mammogram for malignant neoplasm of breast MM MAMMO DIGITAL SCREENING W CAD BILAT Routine 10/16/2015 1:33 PM EDT Visit for screening mammogram [facility] VASCULAR [facility] SCREENING SINGLE EXAM Routine 12/12/2014 12:41 PM EDT Screening for other and unspecified cardiovascular conditions MM MAMMO DIGITAL SCREENING W CAD BILAT Routine 10/15/2014 12:57 PM EDT Other screening mammogram MM MAMMO DIGITAL SCREENING W CAD BILAT Routine 10/18/2013 1:19 PM EDT Other screening mammogram MM MAMMO DIGITAL SCREENING W CAD BILAT Routine 09/21/2012 1:26 PM EDT Other screening mammogram MRI LUMBAR SPINE WO CONTRAST Routine 05/23/2012 2:30 PM EST Radiculopathy, lumbar region MRI KNEE RIGHT WO CONTRAST Routine 04/12/2012 4:31 PM EST Right knee pain MRI LUMBAR SPINE W WO CONTRAST Routine 09/24/2011 4:39 PM EDT Thoracic or lumbosacral neuritis or radiculitis, unspecified MM MAMMO DIGITAL SCREENING W CAD BILAT Routine 07/02/2011 2:32 PM EST Other screening mammogram PATHOLOGY TISSUE REPORT Routine 06/17/2011 6:44 PM EST SCANNED LABS 04/14/2011 12:00 AM EST DX VERTEBRAL FRACTURE ASSESSMENT Routine 05/26/2010 12:54 PM EST Osteopenia DX BONE DENSITY AXIAL SKELETON Routine 05/26/2010 12:54 PM EST Stress fracture foot Osteoporosis MM MAMMO DIGITAL SCREENING W CAD BILAT Routine 05/26/2010 12:11 PM EST Other screening mammogram MM DIG SCR TAVARES PANEL W/CAD Routine 07/13/2008 2:05 PM EDT EK AMBULATORY B/P PANEL Routine 07/12/2008 2:32 PM EDT DX BONE DENSITY SCAN CENTRAL Routine 07/10/2008 11:35 AM EDT WW MAMMO SCREEN W/CAD II PANEL Routine 10/05/2005 12:30 PM EDT Results * OCT, OPTIC NERVE - OU - BOTH EYES (08/16/2024 2:02 PM EDT) Narrative SEP OFFICE - 08/16/2024 2:02 PM EDT Right Eye Reliability was good. Temporal thickness was normal. Superior thickness was normal. Nasal thickness was normal. Inferior thickness was normal. Left Eye Temporal thickness was showing abnormal thinning. Superior thickness was showing abnormal thinning. Na Ang MD OPHTHALMOLOGY SERVICES ORDERAB LES Final Result Performing Organization Address [facility] Co de Phone Number SEP OFFICE * GRUBBS VISUAL FIELD - OU - BOTH EYES (08/18/2023 12:54 PM EDT) Narrative SEP OFFICE - 08/18/2023 12:54 PM EDT Patient is here for baseline imaging. Right Eye Reliability was good. Foveal threshold was normal. Findings include normal observations. Left Eye Reliability was good. Foveal threshold was normal. Findings include inferior altitudinal defect. Na Ang MD OPHTHALMOLOGY SERVICES ORDERAB LES Final Result Performing Organization Address [facility] Co de Phone Number SEP OFFICE * XR CERVICAL SPINE AP AND LATERAL (09/16/2022 1:45 PM EDT) Narrative Lonnyr, Dayana - 09/16/2022 1:45 PM EDT Please see physician's note from office encounter for x-ray imaging result Oumar Alves MD IMG DIAGNOSTIC IMAGING O RDERABLES Final Result * DC ARTHROCENTESIS ASPIR&/INJ MAJOR JT/BURSA W/O US (09/16/2022 1:30 PM EDT) Narrative ORTHOCINCY - 09/16/2022 1:30 PM EDT Gracie Romero, ATC 09/16/2022 4:51 PM Large Joint Injection/Arthrocentesis: R greater trochanteric bursa on 09/16/2022 1:30 PM Indications: pain Details: 22 G needle, anterior approach Medications: 2 mg betamethasone acet-betamethasone sodium phos 6 mg/mL; 4 mL BUPivacaine HCl 0.25 % (2.5 mg/mL) Outcome: tolerated well, no immediate complications Procedure, treatment alternatives, risks and benefits explained, specific risks discussed. Consent was given by the patient. Patient was prepped and draped in the usual sterile fashion. us Oumar Alves MD PROCEDURE/MINOR SURGICAL ORDERABLES Final Result [facility] * NM GASTRIC EMPTYING (08/19/2022 12:17 PM EDT) Anatomical Region Laterality Modality Nuclear Medicine 08/19/2022 12:1 7 PM EDT Impressions 08/19/2022 12:21 PM EDT Normal gastric emptying study. - Note: Radiology results need to be interpreted within a comprehensive clinical context. If you have questions about the radiology report, please contact the office of the ordering clinician. Narrative 08/19/2022 12:21 PM EDT NM GASTRIC EMPTYING 08/19/2022 12:17 PM CLINICAL HISTORY: K21.99-Fhfrkd-mgdylqpryf reflux disease with esophagitis, without [id number]-27-CM. COMPARISON: CT abdomen and pelvis with IV contrast 05/12/2022 PROCEDURE COMMENTS: Standard scrambled egg meal per laboratory protocol. 1.0 mCI technetium-99m sulfur colloid given. Geometric mean of anterior and posterior gastric counts with gastric retention calculated at serial time points, including early dynamic imaging. FINDINGS: Initial dynamic images show normal shape and contour of gastric activity. No evidence of reflux. Gastric retention at serial time points as follows: 68 % at 1 hour (normal 30- 90%) 27 % at 2 hours (normal < 60%) 5 % at 3 hours (normal <30%) Procedure Note Ganga Howe MD - 08/19/2022 NM GASTRIC EMPTYING 08/19/2022 12:17 PM CLINICAL HISTORY: K21.73-Tjtjtu-sqbvinxgic reflux disease withesophagitis, without ipqcgphh-HXT-02-CM. COMPARISON: CT abdomen and pelvis with IV contrast 05/12/2022 PROCEDURE COMMENTS: Standard scrambled egg meal per laboratory protocol.1.0 mCI technetium-99m sulfur colloid given. Geometric mean of anterior and posterior gastric counts with gastric retention calculated at serialtime points, including early dynamic imaging. FINDINGS: Initial dynamic images show normal shape and contour of gastric activity.No evidence of reflux. Gastric retention at serial time points as follows: 68 % at 1 hour (normal 30- 90%) 27 % at 2 hours (normal < 60%) 5 % at 3 hours (normal <30%) IMPRESSION: Normal gastric emptying study. - Note: Radiology results need to be interpreted within a comprehensiveclinical context. If you have questions about the radiology report, please contactthe office of the ordering clinician. Gerardo Rahman MD [facility] NM ORDERABLES Final Re sult * SCANNED LABS (08/02/2022 5:50 PM EDT) Only the most recent of4 resultswithin the time period is included. 08/02/2022 5:50 PM EDT us Unknown Provider HEMATOLOGY ORDERABLES Final Res ult * (ABNORMAL) SEP URINALYSIS POC (07/26/2022 10:33 AM EDT) Only the most recent of9 resultswithin the time period is included. UA Color POC Yellow Color 07/26/2022 10:36 AM EDT SEP UROLOGY FT [facility] UA Appear POC Clear Clear 07/26/2022 10:36 AM EDT SEP UROLOGY FT [facility] UA Gluc POC Negative Negative mg/dL 07/26/2022 10:36 AM EDT SEP UROLOGY FT [facility] UA Bili POC Negative Negative 07/26/2022 10:36 AM EDT SEP UROLOGY FT [facility] UA Ketones POC Negative Negative mg/dL 07/26/2022 10:36 AM EDT [facility] UROLOGY [facility] UA SG POC <=1.005 1.001 - 1.035 no units 07/26/2022 10:36 AM EDT [facility] UA Blood POC Small(A) Negative 07/26/2022 10:36 AM EDT [facility] UA pH POC 5.5 5.0 - 8.0 pH 07/26/2022 10:36 AM EDT [facility] UA Protein POC Negative Negative mg/dL 07/26/2022 10:36 AM EDT [facility] UA Urobilinogen POC 0.2 0.2, 1.0 07/26/2022 10:36 AM EDT [facility] UA Nitrite POC Negative Negative 07/26/2022 10:36 AM EDT [facility] UA Leuk Est POC Negative Negative 10:36 AM EDT [facility] Urine URINE SPECIMEN COLLECTION / Unknown 07/26/2022 10:33 AM EDT 07/26/2022 10:36 AM EDT Sandra Murrell PA-C POINT OF CARE TEST ORDERAB LES Final Result [facility] [address] [place] [address] * CBC WITH DIFF (07/18/2022 4:12 PM EDT) Only the most recent of9 resultswithin the time period is included. WBC 5.0 3.7 - 10.3 x10(3)/mcL 07/18/2022 4:18 PM EDT [facility] RBC 4.64 3.90 - 5.20 x10(6)/mcL 07/18/2022 4:18 PM EDT [facility] Hgb 13.3 11.2 - 15.7 g/dL 07/18/2022 4:18 PM EDT [facility] Hct 39.3 34.0 - 45.0 % 07/18/2022 4:18 PM EDT [facility] MCV 84.7 80.0 - 100.0 fL 07/18/2022 4:18 PM EDT [facility] MCH 28.7 26.0 - 34.0 pg 07/18/2022 4:18 PM EDT [facility] MCHC 33.8 30.7 - 35.5 g/dL 07/18/2022 4:18 PM EDT [facility] RDW 13.2 <=14.9 % 07/18/2022 4:18 PM EDT [facility] Platelet 254 155 - 369 x10(3)/mcL 07/18/2022 4:18 PM EDT [facility] MPV 9.6 8.8 - 12.5 fL 07/18/2022 4:18 PM EDT [facility] Neut Percent 49.6 % 07/18/2022 4:18 PM EDT [facility] Comment:Neutrophils equals s egs plus bands Imm Gran% 0.4 % 07/18/2022 4:18 PM EDT [facility] Comment:Automated count of m etamyelocytes, myelocytes and promyelocytes. Lymph Percent 36.1 % 07/18/2022 4:18 PM EDT [facility] [place] Percent 10.9 % 07/18/2022 4:18 PM EDT [facility] Eos Percent 2.0 % 07/18/2022 4:18 PM EDT [facility] Baso Percent 1.0 % 07/18/2022 4:18 PM EDT [facility] Neut # 2.5 1.6 - 6.1 x10(3)/mcL 07/18/2022 4:18 PM EDT [facility] Comment:Neutrophils equals s egs plus bands IMMGRAN# 0.0 0.0 - 0.1 x10(3)/mcL 07/18/2022 4:18 PM EDT [facility] Comment:Automated count of m etamyelocytes, myelocytes and promyelocytes. An absolute IG <0.1 is reported as 0.0. Lymph # 1.8 1.2 - 3.9 x10(3)/mcL 07/18/2022 4:18 PM EDT [facility] [place] # 0.5 0.3 - 0.9 x10(3)/mcL 07/18/2022 4:18 PM EDT [facility] Eos# 0.1 0.0 - 0.5 x10(3)/mcL 07/18/2022 4:18 PM EDT [facility] Baso # 0.1 0.0 - 0.1 x10(3)/mcL 07/18/2022 4:18 PM EDT [facility] Blood VENOUS BLOOD / Unknown Venipuncture / Unknown 07/18/2022 4:12 PM EDT 07/18/2022 4:16 PM EDT us Sameer Gan MD HEMATOLOGY ORDERABLES Final Result Performing Organization Address City/[facility] de Phone Number [facility] [address] [place] [address] * LACTIC ACID (07/18/2022 4:12 PM EDT) Only the most recent of2 resultswithin the time period is included. Lactic Acid 0.7 0.5 - 1.9 mmol/L 07/18/2022 4:31 PM EDT [facility] Blood VENOUS BLOOD / Unknown Venipuncture / Unknown 07/18/2022 4:12 PM EDT 07/18/2022 4:16 PM EDT Sameer Gan MD CHEMISTRY ORDERABLES Final Result Performing Organization Address City/[facility] de Phone Number [facility] [address] [place] [address] * BASIC METABOLIC PANEL (07/18/2022 4:12 PM EDT) Only the most recent of5 resultswithin the time period is included. Sodium 138 136 - 145 mmol/L 07/18/2022 4:33 PM EDT [facility] Potassium 3.8 3.5 - 5.0 mmol/L 07/18/2022 4:33 PM EDT [facility] Chloride 102 98 - 107 mmol/L 07/18/2022 4:33 PM EDT [facility] Total CO2 25 22 - 29 mmol/L 07/18/2022 4:33 PM EDT [facility] Anion Gap 11 7 - 16 mmol/L 07/18/2022 4:33 PM EDT [facility] Calcium 9.5 8.8 - 10.4 mg/dL 07/18/2022 4:33 PM EDT [facility] Glucose Lvl 99 82 - 100 mg/dL 07/18/2022 4:33 PM EDT [facility] BUN 14 8 - 23 mg/dL 07/18/2022 4:33 PM EDT [facility] Creatinine 0.93 0.51 - 1.30 mg/dL 07/18/2022 4:33 PM EDT [facility] eGFR (CKD-EPIcr 2020) 63 >=60 mL/min/1.7 3 m2 07/18/2022 4:33 PM EDT [facility] Comment:Estimated GFR was ca lculated using the CKD-EPIcr (2020) equation refit without race. The equation is recommended by the National Kid[employer] - [place] [employer] Nephrology Task Force. Blood VENOUS BLOOD / Unknown Venipuncture / Unknown 07/18/2022 4:12 PM EDT 07/18/2022 4:16 PM EDT us Sameer Gan MD CHEMISTRY ORDERABLES Final Result [facility] [address] [place] [address] * (ABNORMAL) URINALYSIS REFLEX (07/18/2022 2:45 PM EDT) UA Color Straw 07/18/2022 3:03 PM EDT [facility] UA Appear Clear Clear 07/18/2022 3:03 PM EDT [facility] UA Glucose Negative Negative mg/dL 07/18/2022 3:03 PM EDT [facility] UA Ketones Negative Negative mg/dL 07/18/2022 3:03 PM EDT [facility] UA Blood Moderate(A) Negative 07/18/2022 3:03 PM EDT [facility] UA pH 6.0 5.0 - 8.0 pH 07/18/2022 3:03 PM EDT [facility] UA Protein Negative Negative mg/dL 07/18/2022 3:03 PM EDT [facility] UA Urobilinogen 0.2 <=1 mg/dL 3:03 PM EDT [facility] UA Bili Negative Negative 07/18/2022 3:03 PM EDT [facility] UA Nitrite Negative Negative 07/18/2022 3:03 PM EDT [facility] UA Leuk Est Trace(A) Negative 07/18/2022 3:03 PM EDT [facility] UA Spec Grav 1.010 1.001 - 1.035 no units 07/18/2022 3:03 PM EDT [facility] Comment:Reference range ruth d for random specimens only. UA WBC 1 0 - 4 /HPF 07/18/2022 3:03 PM EDT [facility] UA RBC 0 0 - 3 /HPF 07/18/2022 3:03 PM EDT [facility] UA Squam Epi Rare /LPF 07/18/2022 3:03 PM EDT [facility] Urine URINE SPECIMEN COLLECTION, CLEAN CATCH / Unknown 07/18/2022 2:45 PM EDT 07/18/2022 2:47 PM EDT Sameer Gan MD URINE ORDERABLES Final Resu lt Performing Organization Address City/[facility]/ZIP Co de Phone Number [facility] [address] [place], [place] [id number] * EXTRA [place] URINE CX (07/18/2022 2:45 PM EDT) Only the most recent of6 resultswithin the time period is included. Urine URINE SPECIMEN COLLECTION, CLEAN CATCH / Unknown 07/18/2022 2:45 PM EDT 07/18/2022 2:47 PM EDT Sameer Gan MD MICROBIOLOGY - GENERAL ORDE RABLES Final Result Performing Organization Address City/[facility] Co de Phone Number [facility] [address] [facility] [place] [address] * URINE CULTURE (NO STAIN) (07/18/2022 2:45 PM EDT) Only the most recent of9 resultswithin the time period is included. Pathologist [facility] Culture Multiple bacterial species isolated from urine consistent with urogenital commensal organisms. 07/20/2022 10:02 AM EDT [facility] [employer] Urine URINE SPECIMEN COLLECTION, CLEAN CATCH / Unknown 07/18/2022 2:45 PM EDT 07/18/2022 3:03 PM EDT Sameer Gan MD MICROBIOLOGY - GENERAL DIANA FREEDMAN Final Result Performing Organization Address [facility] Co de Phone Number [employer] [address] [place] [address] , [place] [address] * XR LUMBAR SPINE AP AND LATERAL (07/07/2022 1:02 PM EST) Only the most recent of2 resultswithin the time period is included. Narrative [employer], Audit - 07/07/2022 1:02 PM EST Please see physician's note from office encounter for x-ray imaging result Oumar Alves MD IMG DIAGNOSTIC IMAGING O RDERABLES Final Result * GAMMA GLUTAMYL TRANSFERASE (06/22/2022 1:15 PM EST) Pathologist [facility] GGT 15 5 - 36 U/L 06/22/2022 2:33 PM EST [employer] Blood VENOUS BLOOD / Unknown Venipuncture / Unknown 06/22/2022 1:15 PM EST 06/22/2022 1:15 PM EST Guanakito Malik V, DPM CHEMISTRY ORDERABLES Final R esult Performing Organization Address City/[facility] Co de Phone Number [employer] [address] , [place] [address] * (ABNORMAL) HEPATIC FUNCTION PANEL (06/22/2022 1:15 PM EST) Total Protein 7.3 6.4 - 8.3 gm/dL 06/22/2022 2:33 PM EST [facility] Albumin 4.5 3.2 - 4.6 gm/dL 06/22/2022 2:33 PM EST [facility] Bili Direct <0.2 0.0 - 0.3 mg/dL 06/22/2022 2:33 PM EST [facility] Bili Total 0.4 0.1 - 1.3 mg/dL 06/22/2022 2:33 PM EST [facility] AST 28 <=40 U/L 06/22/2022 2:33 PM EST [facility] ALT 23 <=41 U/L 06/22/2022 2:33 PM EST [facility] Alk Phos 32(L) 36 - 123 U/L 06/22/2022 2:33 PM EST [facility] Blood VENOUS BLOOD / Unknown Venipuncture / Unknown 06/22/2022 1:15 PM EST 06/22/2022 1:15 PM EST us Guanakito Parikh DPM CHEMISTRY ORDERABLES Final R esult Performing Organization Address [facility]/ZIP Co de Phone Number [facility] [address] [facility] , [place] [address] * OCT, OPTIC NERVE - OU - BOTH EYES (05/20/2022 1:52 PM EST) Narrative SEP OFFICE - 05/20/2022 1:52 PM EST Right Eye Reliability was good. Temporal thickness was normal. Superior thickness was normal. Nasal thickness was normal. Inferior thickness was normal. Left Eye Temporal thickness was showing abnormal thinning. Superior thickness was showing abnormal thinning. us Na Ang MD OPHTHALMOLOGY SERVICES ORDERAB LES Final Result Performing Organization Address City/[facility]/ZIP Co de Phone Number SEP OFFICE * CT ABDOMEN PELVIS WO ORAL OR IV CONTRAST (05/12/2022 1:40 PM EST) Anatomical Region Laterality Modality Abdomen, Pelvis Computed Tomogra phy 05/12/2022 1:40 PM EST Impressions 05/12/2022 1:55 PM EST No acute abnormality of the unenhanced abdomen or pelvis. - Note: Radiology results need to be interpreted within a comprehensive clinical context. If you have questions about the radiology report, please contact the office of the ordering clinician. Narrative 05/12/2022 1:[address] ABDOMEN AND PELVIS WITHOUT IV OR ORAL CONTRAST, 05/12/2022 1:40 PM CLINICAL HISTORY: R10.9-Unspecified abdominal [id number]-[id number]-CM. COMPARISON: 12/11/2020 PROCEDURE COMMENTS: Multidetector CT examination of the abdomen and pelvis without IV or oral contrast per protocol. Multiplanar reconstructions. Dose 1 : CT DLP Total : 558.97 mGycm DLP Spiral Max : 556.74 mGycm Maximum CTDI Vol : 11.72 mGy FINDINGS: LOWER THORAX: Lung bases unremarkable. ABDOMEN AND PELVIS: No change fatty liver. Other solid abdominal organs unremarkable. No bowel obstruction or acute inflammatory process. No evidence of appendicitis. No abnormal mass, fluid, or adenopathy in the pelvis. No acute osseous abnormality. Procedure Note Mundo Dubon MD - 05/12/2022 CT ABDOMEN AND PELVIS WITHOUT IV OR ORAL CONTRAST, 05/12/2022 1:40 PM CLINICAL HISTORY: R10.9-Unspecified abdominal [id number]-CM. COMPARISON: 12/11/2020 PROCEDURE COMMENTS: Multidetector CT examination of the abdomen andpelvis without IV or oral contrast per protocol. Multiplanar reconstructions. Dose 1 : CT DLP Total : 558.97 mGycm DLP Spiral Max : 556.74 mGycm Maximum CTDI Vol : 11.72 mGy FINDINGS: LOWER THORAX: Lung bases unremarkable. ABDOMEN AND PELVIS: No change fatty liver. Other solid abdominal organs unremarkable. No bowel obstruction or acute inflammatory process. No evidence ofappendicitis. No abnormal mass, fluid, or adenopathy in the pelvis. No acute osseous abnormality. IMPRESSION: No acute abnormality of the unenhanced abdomen or pelvis. - Note: Radiology results need to be interpreted within a comprehensiveclinical context. If you have questions about the radiology report, please contactthe office of the ordering clinician. us Janet Vogt MD IMG CT ORDERABLES Final Result * NON-SHIPPING CLERK CRATING CYTOLOGY REQUEST (05/05/2022 4:39 PM EST) CASE REPORT Non-gynecologi c Cytology Case: [id number] Authorizing Provider: Sandra Murrell PA-C Collected: 05/05/2022 1639 Ordering Location: [facility] Urology NPTFTT Received: 05/05/2022 1639 Pathologist: Danelle Dixon MD Specimen: Bladder, Urinary 05/06/2022 11:23 AM EST [facility] NON-SHIPPING CLERK CRATING CYTOLOGY FINAL DIAGNOSIS Bladder washing: - Negative for high grade urothelial carcinoma. 05/06/2022 11:23 AM EST [facility] at 1122 EST EMBEDDED IMAGES 05/06/2022 11:23 AM EST [facility] MICROSCOPIC DESCRIPTION Microscopic examination is performed and the findings corroborate the diagnosis. 05/06/2022 11:23 AM EST [facility] Gross Description Urinary Bladder Washing, Rec'd 80ml of yellow fluid. (TP) 05/06/2022 11:23 AM EST [facility] Urine SPECIMEN FROM URINARY BLADDER / Unknown 05/05/2022 4:39 PM EST 05/05/2022 4:39 PM EST us Sadnra Murrell PA-C CYTOLOGY ORDERABLES Final Result [facility] [address] [place] [address] * (ABNORMAL) URINALYSIS (05/05/2022 4:39 PM EST) Only the most recent of11 resultswithin the time period is included. UA Color Colorless 05/05/2022 6:55 PM EST [facility] UA Appear Clear Clear 05/05/2022 6:55 PM EST [facility] UA Glucose Negative Negative mg/dL 05/05/2022 6:55 PM EST [facility] UA Ketones Negative Negative mg/dL 05/05/2022 6:55 PM EST [facility] UA Blood 1+ (0.06 - 0.1 mg/dL)(A) Negative 05/05/2022 6:55 PM EST [facility] UA pH 6.5 5.0 - 8.0 pH 05/05/2022 6:55 PM EST [facility] UA Protein Negative Negative mg/dL 05/05/2022 6:55 PM EST [facility] UA Urobilinogen Normal <=1 mg/dL 6:55 PM EST [facility] UA Bili Negative Negative 05/05/2022 6:55 PM EST [facility] UA Nitrite Negative Negative 05/05/2022 6:55 PM EST [facility] UA Leuk Est Negative Negative 05/05/2022 6:55 PM EST [facility] UA Spec Grav 1.010 1.001 - 1.035 no units 05/05/2022 6:55 PM EST [facility] Comment:Reference range ruth d for random specimens only. UA WBC 0 0 - 4 /HPF 05/05/2022 6:55 PM EST [facility] UA RBC <1 0 - 3 /HPF 05/05/2022 6:55 PM EST [facility] UA Hyal Cast 1 0 - 2 /LPF 05/05/2022 6:55 PM EST [facility] Urine URINE SPECIMEN OBTAINED VIA STRAIGHT CATHETER / Unknown 05/05/2022 4:39 PM EST 05/05/2022 4:39 PM EST us Sandra Murrell PA-C URINE ORDERABLES Final Res ult [facility] [address] [facility] , [place] [address] * (ABNORMAL) [id number] A/B (04/28/2022 6:38 AM EST) CORONAVIRUS [id number] Not Detected Not Detected 04/28/2022 7:12 AM EST [facility] Influenza A DNA Detected(A) Not Detected 04/28/2022 7:12 AM EST [facility] Influenza B DNA Not Detected Not Detected 04/28/2022 7:12 AM EST [facility] Swab BOTH ANTERIOR NARES / Unknown 04/28/2022 6:38 AM EST 04/28/2022 6:47 AM EST Narrative [facility] - 04/28/2022 7:12 AM EST This test is a real-time RT-PCR test that simultaneously detects and differentiates nucleic acids from SARS-CoV-2, influenza A and influenza B in individuals suspected of a respiratory viral infection. Not Detected results do not preclude COVID-19 or influenza virus infection or other respiratory viruses and should not be used as the sole basis for treatment or other patient management decisions. Test is performed on the [employer] DIANDRA platform under the FDA's Emergency Use Authorization (EUA). DIANDRA Fact Sheet for Providers and Patients: DIANDRA Fact Sheet for Providers: https://www.fda.gov/media/239621/download DIANDRA Fact Sheet for Patients: https://www.fda.gov/media/327876/download Jonas Mayorga MD MICROBIOLOGY - GENERAL ORDER LILO Final Result [facility] [address] [place] [address] * (ABNORMAL) EMG (02/18/2022) Impressions SEP OFFICE - 02/18/2022 This is an abnormal study. There is evidence of chronic, moderate to severe bilateral L5/S1 radiculopathies. There is no evidence of a generalized polyneuropathy on this study. There is incidental evidence of a left median neuropathy, at or distal to the wrist (consistent with carpal tunnel syndrome), mild in degree electrically. Hollis Yoo M.D. Diplomate, [place] [employer] Narrative SEP OFFICE - 02/18/2022 NCS Summary: Prolonged and reduced left median sensory response. Absent left superficial peroneal sensory response (normal variant of age). Normal left radial, ulnar, and sural sensory responses. Reduced left peroneal motor response. Normal left median, ulnar, and tibial motor responses. EMG Summary: Chronic neurogenic changes are seen in bilateral L5/S1 innervated muscles below the knees. Absence of voluntary motor unit activity with reduced insertional activity seen in left 2nd DI Pedis. Otherwise, normal needle electrode examination of the bilateral lower extremities and left FDI/APB. See chart for details. us Mikey Christian MD NEUROLOGY ORDERABLES Cindy brumfield Result SEP OFFICE * XR CHEST PA AND LATERAL (01/26/2022 2:27 PM EDT) Only the most recent of4 resultswithin the time period is included. Anatomical Region Laterality Modality Chest Computed Radiogr aphy 01/26/2022 2:27 PM EDT Impressions 01/26/2022 2:34 PM EDT No acute finding. - Note: Radiology results need to be interpreted within a comprehensive clinical context. If you have questions about the radiology report, please contact the office of the ordering clinician. Narrative 01/26/2022 2:34 PM EDT PA AND LATERAL CHEST X-RAY, 01/26/2022 2:27 PM CLINICAL HISTORY: R05.9-Cough, [id number] COMPARISON: 10/29/2021 PROCEDURE COMMENTS: Frontal and lateral views of the chest. FINDINGS: Cardiovascular structures within normal limits. No pneumonia or effusion. No pneumothorax. Procedure Note Galdino Sosa MD - 01/26/2022 PA AND LATERAL CHEST X-RAY, 01/26/2022 2:27 PM CLINICAL HISTORY: R05.9-Cough, [id number] COMPARISON: 10/29/2021 PROCEDURE COMMENTS: Frontal and lateral views of the chest. FINDINGS: Cardiovascular structures within normal limits. No pneumoniaor effusion. No pneumothorax. IMPRESSION: No acute finding. - Note: Radiology results need to be interpreted within a comprehensiveclinical context. If you have questions about the radiology report, please contactthe office of the ordering clinician. us Deane Reis MD IMG DIAGNOSTIC IMAGING ORDERA BLES Final Result * POCT BLADDER SCAN (12/15/2021 1:18 PM EDT) Only the most recent of11 resultswithin the time period is included. Urine Volume (Preservative) 11 SEP OFFICE 12/15/2021 1:18 PM EDT Sandra Murrell PA-C POINT OF CARE IMAGING Cindy octaviano Result SEP OFFICE * (ABNORMAL) COMPREHENSIVE METABOLIC PANEL (10/29/2021 3:04 AM EDT) Only the most recent of6 resultswithin the time period is included. Sodium 134(L) 136 - 145 mmol/L 10/29/2021 3:28 AM EDT [facility] Potassium 4.0 3.5 - 5.0 mmol/L 10/29/2021 3:28 AM EDT [facility] Chloride 101 98 - 107 mmol/L 10/29/2021 3:28 AM EDT [facility] Total CO2 21(L) 22 - 29 mmol/L 10/29/2021 3:28 AM EDT [facility] Anion Gap 12 7 - 16 mmol/L 10/29/2021 3:28 AM EDT [facility] Calcium 9.8 8.8 - 10.4 mg/dL 10/29/2021 3:28 AM EDT [facility] Glucose Lvl 150(H) 82 - 100 mg/dL 10/29/2021 3:28 AM EDT [facility] BUN 13 8 - 23 mg/dL 10/29/2021 3:28 AM EDT [facility] Creatinine 0.84 0.51 - 1.30 mg/dL 10/29/2021 3:28 AM EDT [facility] Albumin 4.7(H) 3.2 - 4.6 gm/dL 10/29/2021 3:28 AM EDT [facility] Total Protein 7.6 6.4 - 8.3 gm/dL 10/29/2021 3:28 AM EDT [facility] Bili Total 0.5 0.1 - 1.3 mg/dL 10/29/2021 3:28 AM EDT [facility] ALT 29 <=41 U/L 10/29/2021 3:28 AM EDT [facility] AST 30 <=40 U/L 10/29/2021 3:28 AM EDT [facility] Alk Phos 42 36 - 123 U/L 10/29/2021 3:28 AM EDT [facility] eGFR (CKD-EPIcr 2020) 71 >=60 mL/min/1.7 3 m2 10/29/2021 3:28 AM EDT [facility] Comment:Estimated GFR was ca lculated using the CKD-EPIcr (2020) equation refit without race. The equation is recommended by the [employer] - [place] [employer] Nephrology Task Force. Blood VENOUS BLOOD / Unknown Venipuncture / Unknown 10/29/2021 3:04 AM EDT 10/29/2021 3:12 AM EDT us Arthur Rodriguez MD CHEMISTRY ORDERABLES Final Resu lt [facility] [address] [place] [address] * XR ACUTE ABDOMEN SUPINE ERECT AND OR DECUBITUS W 1 VW CHEST (10/29/2021 3:02 AM EDT) Anatomical Region Laterality Modality Abdomen, Chest Radiographic Loly ging 10/29/2021 3:02 AM EDT Impressions 10/29/2021 3:07 AM EDT No acute finding. - Note: Radiology results need to be interpreted within a comprehensive clinical context. If you have questions about the radiology report, please contact the office of the ordering clinician. Narrative 10/29/2021 3:07 AM EDT 1 VIEW CHEST X-RAY. SUPINE, ERECT, AND/OR DECUBITUS VIEWS OF THE ABDOMEN. 10/29/2021 3:02 AM CLINICAL HISTORY: -FECAL IMPACTION COMPARISON: None. PROCEDURE COMMENTS: Frontal chest xray. Supine, erect, and/or decubitus views of the abdomen. FINDINGS: Chest findings: No failure, pneumonia, or effusion. No visible pneumothorax. Abdomen findings: Non-specific, non-obstructive gas pattern. No visible free air. No pathologic calcification. Skeleton grossly intact. Procedure Note Eusebio Merrill MD - 10/29/2021 1 VIEW CHEST X-RAY. SUPINE, ERECT, AND/OR DECUBITUS VIEWS OF THE ABDOMEN. 10/29/2021 3:02 AM CLINICAL HISTORY: -FECAL IMPACTION COMPARISON: None. PROCEDURE COMMENTS: Frontal chest xray. Supine, erect, and/or decubitusviews of the abdomen. FINDINGS: Chest findings: No failure, pneumonia, or effusion. No visiblepneumothorax. Abdomen findings: Non-specific, non-obstructive gas pattern. No visiblefree air. No pathologic calcification. Skeleton grossly intact. IMPRESSION: No acute finding. - Note: Radiology results need to be interpreted within a comprehensiveclinical context. If you have questions about the radiology report, please contactthe office of the ordering clinician. Arthur Rodriguez MD IMG DIAGNOSTIC IMAGING ORDERABL ES Final Result * OCT, OPTIC NERVE - OU - BOTH EYES (10/08/2021 1:21 PM EDT) Narrative SEP OFFICE - 10/08/2021 1:21 PM EDT Right Eye Reliability was good. Temporal thickness was normal. Superior thickness was normal. Nasal thickness was normal. Inferior thickness was normal. Left Eye Temporal thickness was showing abnormal thinning. Superior thickness was showing abnormal thinning. Na Ang MD OPHTHALMOLOGY SERVICES ORDERAB LES Final Result SEP OFFICE * MRI LUMBAR SPINE WO CONTRAST (05/20/2021 1:06 PM EST) Only the most recent of2 resultswithin the time period is included. Anatomical Region Laterality Modality Spine, L-spine Magnetic Resonan ce 05/20/2021 1:06 PM EST Impressions 05/20/2021 1:57 PM EST 1. Progressive multilevel degenerative disc and facet disease as described in detail above. 2. At L3-4, severe disc height space loss with Modic type I endplate changes, disc bulge and left-sided facet disease is present resulting in klhn-sc-ygwihsty central canal stenosis, with left lateral recess stenosis potentially impinging the descending left L4 nerve root 3. At L2-3, disc bulge with right-sided facet arthritis/ligamentous hypertrophy results in right lateral recess stenosis and could result in right L3 radicular symptoms. - Note: Radiology results need to be interpreted within a comprehensive clinical context. If you have questions about the radiology report, please contact the office of the ordering clinician. Narrative 05/20/2021 1:57 PM EST MRI LUMBAR SPINE WITHOUT CONTRAST, 05/20/2021 1:06 PM CLINICAL HISTORY: M54.50-Low back pain, [id number]-CM. COMPARISON: May 23, 2012. PROCEDURE COMMENTS: Multiplanar multiecho MR imaging of the lumbar spine without contrast. FINDINGS: There is no fracture deformity. No pars defect. No marrow replacing process. There is now severe disc height space narrowing at L3-4 with Modic type I endplate degenerative changes now present. The conus terminates at L1-2. Imaged paravertebral soft tissues are normal. Level by level analysis: L1-L2: Broad-based disc bulge with moderate facet arthritis results in mild central canal stenosis, no foraminal narrowing. L2-L3: Broad-based disc bulge, moderate to severe right and moderate left facet arthritis. Ligamentous hypertrophy on the right with mineralization within the ligamentum flavum on the right. This results in moderate central canal stenosis, right lateral recess effacement, without foraminal narrowing. L3-L4: There are post surgical changes of the right laminectomy. Moderate to severe left facet arthritis with ligamentum flavum hypertrophy and calcification in the left ligamentum flavum. Broad-based disc bulge. There is mild to moderate central canal stenosis with left lateral recess effacement, mild bilateral foraminal narrowing. L4-L5: 1 mm retrolisthesis, shallow disc bulge, mild facet disease. There is mild central canal stenosis without foraminal narrowing. L5-S1: No canal or foraminal narrowing. Procedure Note Al Armstrong MD - 05/20/2021 MRI LUMBAR SPINE WITHOUT CONTRAST, 05/20/2021 1:06 PM CLINICAL HISTORY: M54.50-Low back pain, [id number]-CM. COMPARISON: May 23, 2012. PROCEDURE COMMENTS: Multiplanar multiecho MR imaging of the lumbar spinewithout contrast. FINDINGS: There is no fracture deformity. No pars defect. No marrow replacingprocess. There is now severe disc height space narrowing at L3-4 with Modic typeI endplate degenerative changes now present. The conus terminates at L1-2.Imaged paravertebral soft tissues are normal. Level by level analysis: L1-L2: Broad-based disc bulge with moderate facet arthritis results inmild central canal stenosis, no foraminal narrowing. L2-L3: Broad-based disc bulge, moderate to severe right and moderate leftfacet arthritis. Ligamentous hypertrophy on the right with mineralization withinthe ligamentum flavum on the right. This results in moderate central canalstenosis, right lateral recess effacement, without foraminal narrowing. L3-L4: There are post surgical changes of the right laminectomy. Moderateto severe left facet arthritis with ligamentum flavum hypertrophy andcalcification in the left ligamentum flavum. Broad-based disc bulge. There is mild tomoderate central canal stenosis with left lateral recess effacement, mildbilateral foraminal narrowing. L4-L5: 1 mm retrolisthesis, shallow disc bulge, mild facet disease. Thereis mild central canal stenosis without foraminal narrowing. L5-S1: No canal or foraminal narrowing. IMPRESSION: 1. Progressive multilevel degenerative disc and facet disease asdescribed in detail above. 2. At L3-4, severe disc height space loss with Modic type I endplatechanges, disc bulge and left-sided facet disease is present resulting jhmtpk-yh-elhpyvem central canal stenosis, with left lateral recess stenosis potentiallyimpinging the descending left L4 nerve root 3. At L2-3, disc bulge with right-sided facet arthritis/ligamentoushypertrophy results in right lateral recess stenosis and could result in right Y0yiwvfsxup symptoms. - Note: Radiology results need to be interpreted within a comprehensiveclinical context. If you have questions about the radiology report, please contactthe office of the ordering clinician. Mikey Christian MD [facility] MRI ORDERABLES Final Result * POCT EDIL FLU+SARS ANTIGEN (04/16/2021 11:25 AM EST) SARS Antigen Negative Negative SEP OFFICE Influenza A Antigen Negative Negative SEP OFFICE Influenza B Antigen Negative Negative SEP OFFICE Lot Number SEP OFFICE Expiration Date SEP OFFICE SeriAl # SEP OFFICE Control Line SEP OFFICE 04/16/2021 11:2 5 AM EST Janet Vogt MD POINT OF CARE TEST ORDE RABLES Final Result Performing Organization Address City/[facility] Co de Phone Number SEP OFFICE * CORONAVIRUS 2019 (04/16/2021 11:24 AM EST) Only the most recent of4 resultswithin the time period is included. Pathologist [facility] CORONAVIRUS [id number] Not Detected Not Detected 04/17/2021 2:30 PM EST [employer] Comment: Caution should be exercised when interpreting a result of 'Not Detected'. A result of 'Not Detected' does not rule out COVID-19 and cannot be used as sole basis for treatment or patient management decisions. If COVID-19 is still suspected following a 'Not Detected' result, re-testing should be considered. This test is a nucleic acid amplification test intended for the qualitative detection of nucleic acid from the SARS-CoV-2 in upper respiratory samples collected from individuals suspected of COVID-19. Test is performed on the I-Pulse platform under the FDA's Emergency Use Authorization (EUA). [employer] Provider Fact Sheet: https://www.fda.gov/media/291241/download [employer] Patient Fact Sheet: https://www.fda.gov/media/447836/download Performed at [facility] [address] [place] [address] CLIA [id number] Swab BOTH ANTERIOR NARES / Unknown 04/16/2021 11:24 AM EST 04/16/2021 11:24 AM EST Janet Vogt MD MICROBIOLOGY - GENERAL ORDERABLES Final Result Performing Organization Address City/[facility]/ZIP Co de Phone Number [employer] [address] [place] [address], [address] [place] [id number] * POCT EKG (04/10/2021 11:36 AM EST) Only the most recent of2 resultswithin the time period is included. 04/10/2021 11:3 6 AM EST us Janet Vogt MD POINT OF CARE CARDIOLOG Y Final Result SEP OFFICE * SCANNED EKG (12/12/2020 10:17 AM EDT) Only the most recent of3 resultswithin the time period is included. Anatomical Region Laterality Modality Other 12/12/2020 10:1 7 AM EDT us Unknown Provider IMG ECG ORDERABLES Final Result * CT ABD PEL ED FAST W CONTRAST (12/11/2020 3:13 PM EDT) Only the most recent of2 resultswithin the time period is included. Anatomical Region Laterality Modality Abdomen, Pelvis Computed Tomogra phy 12/11/2020 3:13 PM EDT Impressions 12/11/2020 3:41 PM EDT 1. Interval cholecystectomy since November 18, 2020. 2. Small amount of fluid in the dependent pelvis, nonspecific. This may be postoperative. 3. No additional acute abdomen or pelvic process identified. - Note: Radiology results need to be interpreted within a comprehensive clinical context. If you have questions about the radiology report, please contact the office of the ordering clinician. Narrative 12/11/2020 3:[address] ABDOMEN AND PELVIS WITH CONTRAST (FAST), 12/11/2020 3:13 PM CLINICAL HISTORY: -post nicolas nausea, vomiting, pain from upper abdomen into upper back. COMPARISON: November 18, 2020, 1536 hours PROCEDURE COMMENTS: Multi-detector CT scanning of the abdomen and pelvis with multiplanar reformatting per expedited protocol. Isovue 370 IV contrast given as recorded in EPIC. Dose 1 : CT DLP Total : 581.59 mGycm DLP Spiral Max : 577.16 mGycm Maximum CTDI Vol : 11.03 mGy FINDINGS: LOWER THORAX: Lung bases unremarkable. ABDOMEN AND PELVIS: There is a small amount of fluid in the gallbladder fossa consistent with the recent cholecystectomy since November 18, 2020. The liver, spleen, pancreas, adrenal glands and kidneys are unremarkable. No bowel obstruction or acute inflammatory process. No evidence of appendicitis. There is a small amount of fluid in the dependent pelvis. Hysterectomy changes are noted. No acute osseous lesion identified. Procedure Note Clayton Ross MD - 12/11/2020 CT ABDOMEN AND PELVIS WITH CONTRAST (FAST), 12/11/2020 3:13 PM CLINICAL HISTORY: -post nicolas nausea, vomiting, pain from upper abdomeninto upper back. COMPARISON: November 18, 2020, 1536 hours PROCEDURE COMMENTS: Multi-detector CT scanning of the abdomen and pelviswith multiplanar reformatting per expedited protocol. Isovue 370 IV contrastgiven as recorded in EPIC. Dose 1 : CT DLP Total : 581.59 mGycm DLP Spiral Max : 577.16 mGycm Maximum CTDI Vol : 11.03 mGy FINDINGS: LOWER THORAX: Lung bases unremarkable. ABDOMEN AND PELVIS: There is a small amount of fluid in the gallbladderfossa consistent with the recent cholecystectomy since November 18, 2020. The liver, spleen, pancreas, adrenal glands and kidneys areunremarkable. No bowel obstruction or acute inflammatory process. No evidence ofappendicitis. There is a small amount of fluid in the dependent pelvis. Hysterectomychanges are noted. No acute osseous lesion identified. IMPRESSION: 1. Interval cholecystectomy since November 18, 2020. 2. Small amount of fluid in the dependent pelvis, nonspecific. This maybe postoperative. 3. No additional acute abdomen or pelvic process identified. - Note: Radiology results need to be interpreted within a comprehensiveclinical context. If you have questions about the radiology report, please contactthe office of the ordering clinician. Esther Gramajo [employer]ORT [employer]NER IMG CT ORDERABLES Final Resu lt * TROPONIN-T HIGH SENSITIVITY 2HR (12/11/2020 2:09 PM EDT) ky-bOizxxwks-X 2HR <6 <14 ng/L 12/11/2020 2:34 PM EDT [facility] Comment:See the website albino Behalf for rule out SD care pathway, conditions other than AMI that can cause elevated hs cTnT, and comparison of values from the 4th and 5th generation Dex tests. https://askmayoexpert.[email or web address].org/topic/clinical-answers/gnt-83310201/cpm-203 83262 hs-cTnT 2Hr Delta from Baseline 12/11/2020 2:34 PM EDT [facility] Comment:Unable to calculate, result is outside instrument's measuring range. Blood VENOUS BLOOD / Unknown Venipuncture / Unknown 12/11/2020 2:09 PM EDT 12/11/2020 2:15 PM EDT Narrative [facility] - 12/11/2020 2:34 PM EDT Ingestion of aldair doses of biotin (>5 mg/day) taken within 8 hours of drawing blood sample can interfere with this immunoassay test. Esther Gramajo [employer]SPORT PLANNER CHEMISTRY ORDERABLES Final R esult [facility] [address] [place] [address] * CORONAVIRUS 2019 POCT (12/11/2020 12:48 PM EDT) [facility] Signature COV19 RNA POCT Negative Negative 12/11/2020 1:41 PM EDT [facility] Swab NASAL STRUCTURE / Unknown 12/11/2020 12:48 PM EDT 12/11/2020 1:21 PM EDT Narrative [facility] - 12/11/2020 1:41 PM EDT The ID NOW is an isothermal nucleic acid amplification assay used to detect nucleic acid from SARS-CoV-2 viral RNA and is intended for use under FDA Emergency Use Authorization only. Negative results do not preclude SARS-CoV-2 infection and should not be used as the sole basis for patient management decisions. Negative results must be combined with clinical observations, patient history, and epidemiological information. Recommend confirmation using alternate method if a negative result is inconsistent with clinical signs and symptoms or if necessary for patient management. [employer] ID NOW Provider Fact Sheet: https://www.fda.gov/media/312705/download [employer] ID NOW Patient Fact Sheet: https://www.fda.gov/media/003907/download us Esther Gramajo APRN MICROBIOLOGY - GENERAL [place] [address] * EK EKG 12 LEAD (12/11/2020 12:37 PM EDT) Only the most recent of3 resultswithin the time period is included. Anatomical Region Laterality Modality Electrocardiogra phy 12/11/2020 12:5 0 PM EDT Impressions 12/11/2020 2:[address] [facility] Test Date: 2020-12-11 Pat Name: GILBERT MOREIRA Department: DEPID Room: 20 Gender: Female [employer] Operator: Silasjacqui : 1945 Requested By: ESTHER Leslie Order Number: [id number] Reading MD: Dre Pardo MD Measurements Intervals [place] Rate: 61 P: -72 DC: 169 QRS: 37 QRSD: 106 T: 48 QT: 444 QTc: 448 Interpretive Statements SINUS RHYTHM NORMAL ECG NO PRIOR TRACING Electronically Signed On 12-11-2020 14:34:49 EDT by Dre aPrdo MD Narrative Procedure Note Dre Pardo MD - 12/11/[address] [facility] Test Date: 2020-12-11 Pat Name: GILBERT MOREIRA Department: DEPID Room: 20 Gender: Female [employer] Operator: Nasreen : 1945 Requested By: ESTHER Leslie Order Number: [id number] Reading MD: Dre Pardo MD Measurements Intervals [place] Rate: 61 P: -72 DC: 169 QRS: 37 QRSD: 106 T: 48 QT: 444 QTc: 448 Interpretive Statements SINUS RHYTHM NORMAL ECG NO PRIOR TRACING Electronically Signed On 12-11-2020 14:34:49 EDT by Dre Pardo MD Esther Gramajo APRN IMG ECG ORDERABLES Final Res ult * TROPONIN-T HIGH SENSITIVITY BASELINE W/ REFLEX (12/11/2020 12:02 PM EDT) Only the most recent of5 resultswithin the time period is included. wf-zCnvrgout-J <6 <14 ng/L 12/11/2020 2:06 PM EDT [facility] Comment:See the website Fracture for rule out SD care pathway, conditions other than AMI that can cause elevated hs cTnT, and comparison of values from the 4th and 5th generation Dex tests. https://[email or web address].org/topic/clinical-answers/gnt-93512382/cpm-203 16703 Blood VENOUS BLOOD / Unknown Venipuncture / Unknown 12/11/2020 12:02 PM EDT 12/11/2020 1:52 PM EDT Narrative [facility] - 12/11/2020 2:06 PM EDT Ingestion of aldair doses of biotin (>5 mg/day) taken within 8 hours of drawing blood sample can interfere with this immunoassay test. Esther Gramajo APRN CHEMISTRY ORDERABLES Final R critical access hospital Performing Organization Address City/[facility]/ZIP Co de Phone Number [facility] [address] [place] [address] * LIPASE LEVEL (12/11/2020 12:02 PM EDT) Only the most recent of2 resultswithin the time period is included. Lipase Lvl 48 13 - 60 U/L 12/11/2020 1:54 PM EDT [facility] Blood VENOUS BLOOD / Unknown Venipuncture / Unknown 12/11/2020 12:02 PM EDT 12/11/2020 12:18 PM EDT Esther Gramajo [employer] PLANNER CHEMISTRY ORDERABLES Final R esult [facility] [address] [place] [address] * SCANNED RHYTHM STRIPS (12/09/2020 10:22 AM EDT) Anatomical Region Laterality Modality Other 12/09/2020 10:2 2 AM EDT us Unknown Provider IMG ECG ORDERABLES Final Result * Peripheral Block by Anesthesia (12/08/2020 2:08 PM EDT) Narrative [facility] - 12/08/2020 2:08 PM EDT Denae Galarza MD 12/08/2020 2:09 PM Peripheral Block by Anesthesia Procedure Date/Time: 12/08/2020 1:51 PM Patient location during procedure: OR Reason for block: at surgeon's request and post-op pain management Staff and Pre-procedure checks Anesthesiologist: Denae Galarza MD Resident/ORGANIZATIONAL EFFECTIVENESS DIRECTOR: Laura Holden CRNA Performed: anesthesiologist Preanesthetic Checklist: Allergies confirmed, Block plan confirmed, Necessary block equipment present, Supplemental O2 applied, if needed, Anticoagulant confirmed, Block site marked, Patient identified- 2 criteria, Surgical procedure consent verified, Aseptic technique used, Drug/solution labeled, Resuscitaion equipment available, SILVIO recommended monitors applied, IV access functioning, Sedation given, if needed and Resuscitation equipment available Immediate perianesthetic assessment completed: Yes Patient position: Supine Prep: Chloraprep and Patient Draped Monitoring: Mental status assessed, O2 Sat, EKG and BP (under geta) Peripheral Block Block type: TAP Block Tap Block: Posterior TAP Laterality: Right Injection technique: single-shot Medication: Bupivacaine 0.25% and Exparel 1.33% Bupivacaine volume (ml): 15 Exparel volume (ml): 10 Needle Needle type: Sonoplex II Needle size: 22Gx2 Nerve localization: ultrasound guidance and anatomical landmarks (TAP Block, Posterior: External Oblique muscle, Internal Oblique muscle and Transversus Abdominis muscle are identified; the tip of the needle and the spread of the local anesthetic between Internal Oblique muscle and Transversus Abdominus muscle is visualized. Ultrasound image documentation is attached/scanned in epic chart.) Ultrasound probe: linear Ultrasound needle approach: in-plane Assessment Block success: a full evaluation pending Events: Uneventful Heart rate change: no Blood aspirated: no Paresthesia pain: none Resistance on injection: normal Intermittent incremental injection LA at 5ml Additional Notes After informed consent was obtained, including discussions of rare events such as nerve injury and LAST, a time-out was performed. After induction of general anesthesia and securing of the airway, live ultrasound was used throughout block placement. Patient tolerated well. Low injection pressures. Optimal spread of LA visualized via ultrasound. No complications noted. Ultrasound Image of the block is attached/scanned to the [facility] chart. us Denae Galarza MD ANESTHESIA ORDERABLES Edited R esult - Final [facility] [address] [place] [id number] * Peripheral Block by Anesthesia (12/08/2020 2:06 PM EDT) Narrative [facility] - 12/08/2020 2:06 PM EDT Denae Galarza MD 12/08/2020 2:08 PM Peripheral Block by Anesthesia Procedure Date/Time: 12/08/2020 1:52 PM Patient location during procedure: OR Reason for block: at surgeon's request and post-op pain management Staff and Pre-procedure checks Anesthesiologist: Denae Galarza MD Resident/ORGANIZATIONAL EFFECTIVENESS DIRECTOR: Laura Holden CRNA Performed: anesthesiologist Preanesthetic Checklist: Allergies confirmed, Block plan confirmed, Necessary block equipment present, Supplemental O2 applied, if needed, Anticoagulant confirmed, Block site marked, Patient identified- 2 criteria, Surgical procedure consent verified, Aseptic technique used, Drug/solution labeled, Resuscitaion equipment available, SILVIO recommended monitors applied, IV access functioning, Sedation given, if needed and Resuscitation equipment available Immediate perianesthetic assessment completed: Yes Patient position: Supine Prep: Chloraprep and Patient Draped Monitoring: Mental status assessed, O2 Sat, EKG and BP (under geta) Peripheral Block Block type: TAP Block Tap Block: Posterior TAP Laterality: Left Injection technique: single-shot Medication: Bupivacaine 0.25% and Exparel 1.33% Bupivacaine volume (ml): 15 Exparel volume (ml): 10 Needle Needle type: Sonoplex II Needle size: 22Gx2 Nerve localization: ultrasound guidance and anatomical landmarks (TAP Block, Posterior: External Oblique muscle, Internal Oblique muscle and Transversus Abdominis muscle are identified; the tip of the needle and the spread of the local anesthetic between Internal Oblique muscle and Transversus Abdominus muscle is visualized. Ultrasound image documentation is attached/scanned in [facility] chart.) Ultrasound probe: linear Ultrasound needle approach: in-plane Assessment Block success: a full evaluation pending Events: Uneventful Heart rate change: no Blood aspirated: no Paresthesia pain: none Resistance on injection: normal Intermittent incremental injection LA at 5ml Additional Notes After informed consent was obtained, including discussions of rare events such as nerve injury and LAST, a time-out was performed. After induction of general anesthesia and securing of the airway, live ultrasound was used throughout block placement. Patient tolerated well. Low injection pressures. Optimal spread of LA visualized via ultrasound. No complications noted. Ultrasound Image of the block is attached/scanned to the [facility] chart. us Denae Galarza MD ANESTHESIA ORDERABLES Final Re sult [facility] [address] [id number] * PATHOLOGY TISSUE REQUEST (12/08/2020 1:55 PM EDT) Only the most recent of2 resultswithin the time period is included. CASE REPORT Surgical Pathology Case: [id number] Authorizing Provider: Geoff Gan MD Collected: 12/08/2020 1355 Ordering Location: [facility] SAME DAY SURGERY Received: 12/09/2020 1000 Pathologist: Claudia Issa MD Specimen: Gallbladder, GALLBLADDER 12/10/2020 10:14 AM EDT [facility] FINAL DIAGNOSIS Gallbladder, cholecystectomy: - Acute and chronic cholecystitis. - Cholelithiasis. 12/10/2020 10:14 AM EDT [facility] at 1014 EDT GROSS DESCRIPTION The specimen is received in formalin, labeled with the patient's name, medical record number, and gallbladder . It consists of an 8.0 x 3.0 x 1.6 cm intact cholecystectomy specimen with a clamp, patent cystic duct. The serosa is blue-green, smooth, and glistening. The adventitia is green and shaggy. The specimen is opened to reveal a single dark green, bosselated choleliths, measuring 0.7 cm in greatest dimension, are identified within the gallbladder fundus, admixed with abundant green, viscous bile. The mucosa is green and velvety. No masses or lesions are identified. The wall thickness averages 0.1 cm. Windshield Installer sections, to include the cystic duct margin, en face are submitted in cassette A1. BR 12/09/2020 11:29 AM 12/10/2020 10:14 AM EDT [facility] MICROSCOPIC DESCRIPTION Microscopic examination is performed and the findings corroborate the diagnosis. 12/10/2020 10:14 AM EDT [facility] EMBEDDED IMAGES 12/10/2020 10:14 AM EDT [facility] Tissue ENTIRE GALLBLADDER / Unknown 12/08/2020 1:55 PM EDT 12/09/2020 10:00 AM EDT us Geoff Gan MD PATHOLOGY ORDERABLES Final Re sult [facility] [address] [place] [address] [place] [address] * INTRAOP AIRWAY PLACEMENT (12/08/2020 1:46 PM EDT) Narrative [facility] - 12/08/2020 1:46 PM EDT Laura Holden CRNA 12/08/2020 2:03 PM Intraop Airway Placement: Date/Time: 12/08/2020 1:46 PM Induction type: IV Mask size: Standard adult Pre-Oxygenation: Standard Mask ventilation: Easy mask ventilation Technique: Video laryngoscope Laryngoscope blade: Samayoa Blade size: 3 Grade view: I Airway type: ETT- cuffed Topical Anesthetic/Lubricant: Lubricant jelly and LTA 4% Lidocaine Intubation assist devices: Stylet 14fr Airway location: Oral Device size: 7.5mm Secured at: 21 cm Secured by: Tape Measured from: Lips Placement verified: Auscultation, End tidal CO2 and Symmetric chest wall motion Condition: Atraumatic and Unchanged Insertion attempts: 1 Attempt 1 by: FARIBA Title: ORGANIZATIONAL EFFECTIVENESS DIRECTOR us Denae Galarza MD DC ANESTHESIA Final Result [facility] [address] [place] [address] * (ABNORMAL) COMPLIANCE PANEL, URINE (09/19/2020 10:54 AM EDT) [facility] Medications Expected Gabapentin 08/31 7:49 AM EDT [facility] Creatinine Ur >25.0 mg/dL 09/22/2020 7:49 AM EDT [facility] Comment: Greater than 20: Consistent with valid sample Greater than 2 but less than 20: Possible dilution Less than 2: Questionable valid sample THC <10 Cutoff 10 ng/mL ng/mL 09/22/2020 7:49 AM EDT [facility] Comment:1-mctpzpc-lwnnohqqit cannabinol; does not distinguish between prescribed and illicit forms THC Glucuronide <10 Cutoff 10 ng/mL ng/mL 09/22/2020 7:49 AM EDT [facility] Comment:Metabolite of THC Amphetamine <50 Cutoff 50 ng/mL ng/mL 09/22/2020 7:49 AM EDT [facility] Comment:e.g., Adderall, Vyva nse, Dexedrine, Obetrol MDA <50 Cutoff 50 ng/mL ng/mL 09/22/2020 7:49 AM EDT [facility] Comment:Metabolite of MDMA, and MDEA MDEA <50 Cutoff 50 ng/mL ng/mL 09/22/2020 7:49 AM EDT [facility] Comment:e.g., Rajwinder MDMA <50 Cutoff 50 ng/mL ng/mL 09/22/2020 7:49 AM EDT [facility] Comment:e.g., Ecstasy, Shell Methamphetamine <50 Cutoff 50 ng/mL ng/mL 09/22/2020 7:49 AM EDT [facility] Comment:d- and l- isomers ar e not distinguished by this test; may reflect Nilesh's inhaler, Desoxyn, Selegiline, or illicit source Phentermine <50 Cutoff 50 ng/mL ng/mL 09/22/2020 7:49 AM EDT [facility] Comment:e.g., Adipex, Lomair a, Ionamin,Fastin,Zantryl Gabapentin >2,000(H) Cutoff 50 ng/mL ng/mL 09/22/2020 7:49 AM EDT [facility] Comment:e.g, Neurontin Pregabalin <50 Cutoff 50 ng/mL ng/mL 09/22/2020 7:49 AM EDT [facility] Comment:Lyrica Butalbital <50 Cutoff 50 ng/mL ng/mL 09/22/2020 7:49 AM EDT [facility] Comment:e.g. Fiorinal Phenobarbital <50 Cutoff 50 ng/mL ng/mL 09/22/2020 7:49 AM EDT [facility] Comment:e.g. Nembutal, Lumin al, Bellergal-S Secobarbital <50 Cutoff 50 ng/mL ng/mL 09/22/2020 7:49 AM EDT [facility] Comment:e.g. Seconal, Tunial Pentobarbital <50 Cutoff 50 ng/mL ng/mL 09/22/2020 7:49 AM EDT [facility] Comment:e.g. Nembutal Alprazolam <10 Cutoff 10 ng/mL ng/mL 09/22/2020 7:49 AM EDT [facility] Comment:e.g, Xanax, Niravam alpha-Hydroxyalprazolam <25 Cutoff 25 ng/mL ng/mL 09/22/2020 7:49 AM EDT [facility] Comment:Metabolite of Alpraz olam Clonazepam <10 Cutoff 10 ng/mL ng/mL 09/22/2020 7:49 AM EDT [facility] Comment:e.g., Klonopin, Clon opin 7-Aminoclonazepam <25 Cutoff 25 ng/mL ng/mL 09/22/2020 7:49 AM EDT [facility] Comment:Metabolite of Clonaz epam Diazepam <10 Cutoff 10 ng/mL ng/mL 09/22/2020 7:49 AM EDT [facility] Comment:e.g, Valium, Diastat Nordiazepam <25 Cutoff 25 ng/mL ng/mL 09/22/2020 7:49 AM EDT [facility] Comment:Metabolite of Chlord iazepoxide(Librium), Clorazepate(Tranxene), Diazepam, Halazepam, (Alapryl), Prazepam(Centrax) Flunitrazepam <50 Cutoff 50 ng/mL ng/mL 09/22/2020 7:49 AM EDT [facility] Comment:e.g.,Rohypnol, Narco zep 7-Aminoflunitrazepam <50 Cutoff 50 ng/mL ng/mL 09/22/2020 7:49 AM EDT [facility] Comment:Metabolite of Flunit razepam Flurazepam <50 Cutoff 50 ng/mL ng/mL 09/22/2020 7:49 AM EDT [facility] Comment:e.g., Dalmane Hydroxyethylflurazepam <50 Cutoff 50 ng/mL ng/mL 09/22/2020 7:49 AM EDT [facility] Comment:Metabolite of Fluraz epam Lorazepam <50 Cutoff 50 ng/mL ng/mL 09/22/2020 7:49 AM EDT [facility] Comment:e.g., Ativan Lorazepam Glucuronide <50 Cutoff 50 ng/mL ng/mL 09/22/2020 7:49 AM EDT [facility] Comment:Metabolite of Loraze candie Midazolam <50 Cutoff 50 ng/mL ng/mL 09/22/2020 7:49 AM EDT [facility] Comment:e.g., Versed alpha-hydroxymidazolam <50 Cutoff 50 ng/mL ng/mL 09/22/2020 7:49 AM EDT [facility] Comment:Metabolite of Versed Oxazepam <50 Cutoff 50 ng/mL ng/mL 09/22/2020 7:49 AM EDT [facility] Comment:e.g., Serax; also Me tabolite of Temazepam, and Nordiazepam Oxazepam Glucuronide <50 Cutoff 50 ng/mL ng/mL 09/22/2020 7:49 AM EDT [facility] Comment:Metabolite of Oxazep am Temazepam <50 Cutoff 50 ng/mL ng/mL 09/22/2020 7:49 AM EDT [facility] Comment:e.g., Restoril; also Metabolite of Diazepam Temazepam Glucuronide <50 Cutoff 50 ng/mL ng/mL 09/22/2020 7:49 AM EDT [facility] Comment:Metabolite of Temaze candie and Diazepam Triazolam <50 Cutoff 50 ng/mL ng/mL 09/22/2020 7:49 AM EDT [facility] Comment:e.g., Halcion alpha-hydroxytriazolam <50 Cutoff 50 ng/mL ng/mL 09/22/2020 7:49 AM EDT [facility] Comment:Metabolite of Triazo lopez Buprenorphine <5 Cutoff 5 ng/mL ng/mL 09/22/2020 7:49 AM EDT [facility] Comment:e.g., Suboxone, Subu ravindra,Sublocade, Buprenex Buprenorphine Glucuronide <10 Cutoff 10 ng/mL ng/mL 09/22/2020 7:49 AM EDT [facility] Comment:Buprenorphine Metabo lite Norbuprenorphine <5 Cutoff 5 ng/mL ng/mL 09/22/2020 7:49 AM EDT [facility] Comment:Buprenorphine Metabo lite Norbuprenorphine Glucuronide <10 Cutoff 10 ng/mL ng/mL 09/22/2020 7:49 AM EDT [facility] Comment:Buprenorphine Metabo lite Benzoylecgonine <50 Cutoff 50 ng/mL ng/mL 09/22/2020 7:49 AM EDT [facility] Comment:Cocaine Metabolite Fentanyl <1 Cutoff 1 ng/mL ng/mL 09/22/2020 7:49 AM EDT [facility] Comment:e.g.,Duragesic, Oral et, Actiq, Sublimaze, Innovar, Lazanda Norfentanyl <1 Cutoff 1 ng/mL ng/mL 09/22/2020 7:49 AM EDT [facility] Comment:Metabolite of Fentan yl 6-Monoacetylmorphine (6MAM) <10 Cutoff 10 ng/mL ng/mL 09/22/2020 7:49 AM EDT [facility] Comment:Metabolite of Heroin ; Morphine is expected Methadone <50 Cutoff 50 ng/mL ng/mL 09/22/2020 7:49 AM EDT [facility] Comment:e.g., Dolophine, Met hadose, Amidone EDDP <50 Cutoff 50 ng/mL ng/mL 09/22/2020 7:49 AM EDT [facility] Comment:Methadone Metabolite Carisoprodol <100 Cutoff 100 ng/mL ng/mL 09/22/2020 7:49 AM EDT [facility] Comment:e.g., Soma Meprobamate <100 Cutoff 100 ng/mL ng/mL 09/22/2020 7:49 AM EDT [facility] Comment:e.g., Tranquillity, Equa nil, Micrainin, Equagesic; Metabolite of Carisoprodol Codeine <50 Cutoff 50 ng/mL ng/mL 09/22/2020 7:49 AM EDT [facility] Comment:e.g., Acetaminophen w/Codeine, Tylenol3 w/ Codeine Codeine Glucuronide <50 Cutoff 50 ng/mL ng/mL 09/22/2020 7:49 AM EDT [facility] Comment:Metabolite of Codein e Meperidine <50 Cutoff 50 ng/mL ng/mL 09/22/2020 7:49 AM EDT [facility] Comment:e.g., Demerol, Pethi dine Normeperidine <50 Cutoff 50 ng/mL ng/mL 09/22/2020 7:49 AM EDT [facility] Comment:Metabolite of Meperi dine Morphine <50 Cutoff 50 ng/mL ng/mL 09/22/2020 7:49 AM EDT [facility] Comment:e.g., MS Contin, Tiffanie anol; Metabolite of Codeine and Heroin; may reflect poppy seed ingestion Dfmbiqiu-0-Flgvfljinmf <25 Cutoff 25 ng/mL ng/mL 09/22/2020 7:49 AM EDT [facility] Comment:Metabolite of Morphi ne. Baexthzu-9-Oublhccivnl <25 Cutoff 25 ng/mL ng/mL 09/22/2020 7:49 AM EDT [facility] Comment:Metabolite of Morphi ne. Naloxone <25 Cutoff 25 ng/mL ng/mL 09/22/2020 7:49 AM EDT [facility] Comment:e.g., Narcan, Evzio Hydrocodone <50 Cutoff 50 ng/mL ng/mL 09/22/2020 7:49 AM EDT [facility] Comment:e.g., Lorcet, Lortab , Vicodin, [place]; Minor Metabolite of Codeine Dihydrocodeine <50 Cutoff 50 ng/mL ng/mL 09/22/2020 7:[address] [facility] Comment:e.g., Didrate, Parzo ne, Parlor, Synalgos; Metabolite of Hydrocodone Norhydrocodone <50 Cutoff 50 ng/mL ng/mL 09/22/2020 7:49 AM EDT [facility] Comment:Metabolite of Hydroc odone Hydromorphone <50 Cutoff 50 ng/mL ng/mL 09/22/2020 7:[address] [facility] Comment:e.g., Dilaudid; also Metabolite of Hydrocodone and Minor Metabolite of Morphine Hydromorphone Glucuronide <50 Cutoff 50 ng/mL ng/mL 09/22/2020 7:[address] [facility] Comment:Metabolite of Hydrom orphone Oxycodone <50 Cutoff 50 ng/mL ng/mL 09/22/2020 7:[address] [facility] Comment:e.g., Oxycontin, Per cocet, Endocet, Percodan, Roxicet Noroxycodone <50 Cutoff 50 ng/mL ng/mL 09/22/2020 7:[address] [facility] Comment:Metabolite of Oxycod one Oxymorphone <50 Cutoff 50 ng/mL ng/mL 09/22/2020 7:[address] [facility] Comment:e.g., Opana; Metabol ite of Oxycodone Oxymorphone Glucuronide <50 Cutoff 50 ng/mL ng/mL 09/22/2020 7:49 AM EDT [facility] Comment:Metabolite of Oxycod one Noroxymorphone <50 Cutoff 50 ng/mL ng/mL 09/22/2020 7:[address] [facility] Comment:Metabolite of Oxycod one, and Oxymorphone, Noroxycodone Metabolite Tramadol <50 Cutoff 50 ng/mL ng/mL 09/22/2020 7:49 AM EDT [facility] Comment:e.g., Ultram, ConZip L-Qqztwispt-dua-Tramadol <50 Cutoff 50 ng/mL ng/mL 09/22/2020 7:[address] [facility] Comment:Metabolite of Tramad ol Tapentadol <50 Cutoff 50 ng/mL ng/mL 09/22/2020 7:[address] [facility], [facility] Comment:Nucynta Tapentadol-Glucuronide <50 Cutoff 50 ng/mL ng/mL 09/22/2020 7:[address] [facility], [facility] Comment:Metabolite of Tapent adol Urine STRUCTURE OF URINARY TRACT PROPER / Unknown 09/19/2020 10:54 AM EDT 09/19/2020 10:54 AM EDT Narrative [facility] - 09/22/2020 7:49 AM EDT The absence of expected drug(s), and/or drug metabolite(s), may indicate non-compliance, diluted or adulterated urine, poor drug absorption, concentration of drug below the cut-off, timing of specimen collection relative to administration of drug, or limitations of testing. If results do not fit clinical expectations, please reach out to the Toxicology department at [phone]. Specimens are held for 7 days. This test was developed, and its performance characteristics determined by [facility] ([facility] It has not been cleared or approved by the FDA. This test is used for clinical purposes. It should not be regarded as investigational or for research. [facility] is certified under the Clinical Laboratory Improvement Amendments (CLIA) as qualified to perform high complexity clinical laboratory testing. Severo Harrell DO URINE ORDERABLES Final Result [facility] [address] , [place] [address] * MRI ANKLE LEFT WO CONTRAST (09/03/2020 5:48 PM EDT) Anatomical Region Laterality Modality Ankle, Ankle Joint Magnetic Reso nance 09/03/2020 5:48 PM EDT Impressions 09/04/2020 10:01 AM EDT 1. 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 The anterior calcaneal process is elongated, contains edema, and there is fluid interposed within the calcaneonavicular synchondrosis. No osseous coalition. No acute fracture. 2. Mild osteoarthritis of the ankle joint and calcaneocuboid joint. 3. Mild chronic plantar fasciitis. - Narrative 09/04/2020 10:01 AM EDT MRI ANKLE LEFT WO CONTRAST 09/03/2020 5:48 PM CLINICAL HISTORY: Chronic ankle pain, primary osteoarthritis. COMPARISON: None TECHNIQUE: Multiplanar, multisequence MR images of the left ankle were obtained without the use of contrast. FINDINGS: BONES/JOINTS: The anterior calcaneal process is elongated and nearly abuts the lateral margin of the navicular and there is fluid interposed within the synchondrosis. The anterior calcaneal process and anterior calcaneal body show patchy marrow edema without a linear fracture. There are mild degenerative changes of the calcaneocuboid joint. Minimal focal cartilage irregularity is noted of the medial tibial plafond without evidence of an osteochondral or displaced chondral defect. MUSCLES/TENDONS: The medial flexor, peroneal, anterior extensor, and Achilles tendons are intact. There is mild thickening of the central cord of the plantar fascia associated with a plantar calcaneal spur but without evidence for acute tearing. LIGAMENTS: The deltoid ligament complex, spring ligament complex, and lateral ankle ligaments are intact. SOFT TISSUES: No subcutaneous fluid collections. There is mild edema within the sinus tarsi. Procedure Note Moo Meade MD - 09/04/2020 MRI ANKLE LEFT WO CONTRAST 09/03/2020 5:48 PM CLINICAL HISTORY: Chronic ankle pain, primary osteoarthritis. COMPARISON: None TECHNIQUE: Multiplanar, multisequence MR images of the left ankle wereobtained without the use of contrast. FINDINGS: BONES/JOINTS: The anterior calcaneal process is elongated and nearly abutsthe lateral margin of the navicular and there is fluid interposed within the synchondrosis. The anterior calcaneal process and anterior calcaneal bodyshow patchy marrow edema without a linear fracture. There are milddegenerative changes of the calcaneocuboid joint. Minimal focal cartilage irregularityis noted of the medial tibial plafond without evidence of an osteochondralor displaced chondral defect. MUSCLES/TENDONS: The medial flexor, peroneal, anterior extensor, andAchilles tendons are intact. There is mild thickening of the central cord of theplantar fascia associated with a plantar calcaneal spur but without evidence foracute tearing. LIGAMENTS: The deltoid ligament complex, spring ligament complex, andlateral ankle ligaments are intact. SOFT TISSUES: No subcutaneous fluid collections. There is mild edemawithin the sinus tarsi. IMPRESSION: 1. 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 The anterior calcaneal process is elongated, contains edema,and there is fluid interposed within the calcaneonavicular synchondrosis. Noosseous coalition. No acute fracture. 2. Mild osteoarthritis of the ankle joint and calcaneocuboid joint. 3. Mild chronic plantar fasciitis. - us Oneal Carrera DPM IMG MRI ORDERABLES Final Resul t * INTRAOP AIRWAY PLACEMENT (08/27/2020 12:39 PM EDT) Narrative [facility] - 08/27/2020 12:39 PM EDT Yara Torres 08/27/2020 12:39 PM Intraop Airway Placement: Airway type: Nasal cannula salter Oumar Weiss MD DC ANESTHESIA Final Res ult [facility] [address] [place] [address] * (ABNORMAL) LIPID PANEL REFLEX (08/22/2020 2:29 PM EDT) [facility] Signature Cholesterol 172 <200 mg/dL 08/22/2020 6:37 PM EDT [facility] Comment: < 200 Desirable 200 - 239 Borderline High >= 240 High Triglyceride 220(H) <150 mg/dL 08/22/2020 6:37 PM EDT [facility] Comment: < 150 Normal 150 - 199 Borderline High 200 - 499 High >= 500 Very High HDL 57 >=40 mg/dL 08/22/2020 6:37 PM EDT [facility] Comment: > 60 Optimal 40 - 60 Acceptable < 40 Low LDL Direct 83 <100 mg/dL 08/22/2020 6:37 PM EDT [facility] Non-HDL-C Calculated 115 <=129 mg/dL 08/22/2020 6:37 PM EDT [facility] Comment: <130 Desirable 130-159 Above Desirable 160-189 Borderline High 190-219 High >= 220 Very High Fasting Specimen? Yes None 021 6:37 PM EDT [facility] Blood Venipuncture / Unknown 08/22/2020 2:29 PM EDT 08/22/2020 2:29 PM EDT Janet Vogt MD CHEMISTRY ORDERABLES Fi nal Result Performing Organization Address [facility] Co de Phone Number [facility] [address] [place] [address] [facility] [address] [place] [id number] * (ABNORMAL) VITAMIN B12/ FOLIC ACID (08/22/2020 2:29 PM EDT) Pathologist [facility] Vitamin B12 >1,600(H) 232-1,245 pg/mL 08/22/2020 6:[address] [facility] [place], [facility] Folate >16.00 >=4.80 ng/mL 08/22/2020 6:33 PM EDT [facility], [facility] Blood Venipuncture / Unknown 08/22/2020 2:29 PM EDT 08/22/2020 2:[address] [facility] [place] [facility] - 08/22/2020 6:33 PM EDT Ingestion of aldair doses of biotin (>5 mg/day) taken within 8 hours of drawing blood sample can interfere with this immunoassay test. Janet Vogt MD CHEMISTRY ORDERABLES Fi nal Result Performing Organization Address City/[place] [facility] Co de Phone Number [facility] [address] [facility] , [place] [address] * TSH REFLEX (08/22/2020 2:29 PM EDT) Only the most recent of2 resultswithin the time period is included. Pathologist [facility] TSH Reflex 1.630 0.270 - 4.200 mcIU/mL 08/22/2020 6:19 PM EDT PREFERRED [place] [facility] Blood Venipuncture / Unknown 08/22/2020 2:29 PM EDT 08/22/2020 2:[address] [facility] [place] [facility] - 08/22/2020 6:19 PM EDT Ingestion of aldair doses of biotin (>5 mg/day) taken within 8 hours of drawing blood sample can interfere with this immunoassay test. Janet Vogt MD CHEMISTRY ORDERABLES Fi nal Result Performing Organization Address [facility] de Phone Number [facility] [place] [facility] [address] [facility] , [place] [address] * MAGNESIUM LEVEL (08/22/2020 2:29 PM EDT) [facility] Magnesium 2.0 1.6 - 2.4 mg/dL 08/22/2020 6:[address] [facility] [place] [facility] Blood VENOUS BLOOD / Unknown Venipuncture / Unknown 08/22/2020 2:29 PM EDT 08/22/2020 2:29 PM EDT Result [facility] Janet Vogt MD CHEMISTRY ORDERABLES Fi nal Result Performing Organization Address [facility] Phone Number [facility] [place] [facility] [address] [facility] , [place] [address] * IOL BIOMETRY - OU - BOTH EYES (07/31/2020 2:50 PM EDT) Narrative SEP OFFICE - 07/31/2020 2:50 PM EDT Right Eye Patient is here for baseline imaging. Lens style: monofocal. Formula used: (Jah Craig). Target refraction: per patient preference. Left Eye Patient is here for baseline imaging. Lens style: monofocal. Formula used: (Jah Craig). Target refraction: per patient preference. Na Ang MD OPHTHALMOLOGY SERVICES ORDERAB LES Final Result Performing Organization Address [facility] Co de Phone Number SEP OFFICE * INTRAOP AIRWAY PLACEMENT (07/30/2020 2:24 PM EDT) Narrative [facility] - 07/30/2020 2:24 PM EDT Adina Laura SANJIV Combs 07/30/2020 2:24 PM Intraop Airway Placement: Induction type: IV Airway type: Nasal cannula salter Juan Lynn MD DC ANESTHESIA Final R esult Performing Organization Address [facility] Co de Phone Number [facility] [address] [place] [phone] * OCT, OPTIC NERVE - OU - BOTH EYES (07/10/2020 4:51 PM EST) Narrative [facility] OFFICE - 07/10/2020 4:51 PM EST Right Eye Reliability was good. Temporal thickness was normal. Superior thickness was normal. Nasal thickness was normal. Inferior thickness was normal. Left Eye Temporal thickness was showing abnormal thinning. Superior thickness was showing abnormal thinning. us Na Ang MD OPHTHALMOLOGY SERVICES ORDERAB LES Final Result Performing Organization Address [facility] Co de Phone Number [facility] OFFICE * US RENAL AND BLADDER (04/22/2020 1:25 PM EST) Anatomical Region Laterality Modality Abdomen, Pelvis Ultrasound 04/22/2020 1:25 PM EST Impressions 04/22/2020 1:38 PM EST Bladder post void volume 11 mL. - Narrative 04/22/2020 1:38 PM EST US KIDNEYS AND BLADDER, 04/22/2020 1:25 PM CLINICAL HISTORY: R33.9-Retention of urine, [id number]. COMPARISON: None. PROCEDURE COMMENTS: Routine sonographic evaluation of the kidneys and bladder with entry level marketing representative images and polishing wheel setter notes sent to PACS for radiologist review. FINDINGS: RIGHT: 8.9 x 5.9 x 4.8 cm. No hydronephrosis, solid-appearing mass, or shadowing stone. LEFT: 11.2 x 5.4 x 4.7 cm. No hydronephrosis, solid-appearing mass, or shadowing stone. 1 cm left upper pole renal cyst. PELVIS: Bladder prevoid volume 404 mL, post void volume 11 mL. Bilateral ureteral jets seen. Procedure Note Mundo Dubon MD - 04/22/2020 US KIDNEYS AND BLADDER, 04/22/2020 1:25 PM CLINICAL HISTORY: R33.9-Retention of urine, [id number]. COMPARISON: None. PROCEDURE COMMENTS: Routine sonographic evaluation of the kidneys andbladder with entry level marketing representative images and polishing wheel setter notes sent to PACS forradiologist review. FINDINGS: RIGHT: 8.9 x 5.9 x 4.8 cm. No hydronephrosis, solid-appearing mass, or shadowing stone. LEFT: 11.2 x 5.4 x 4.7 cm. No hydronephrosis, solid-appearing mass, or shadowing stone. 1 cm left upper pole renal cyst. PELVIS: Bladder prevoid volume 404 mL, post void volume 11 mL.Bilateral ureteral jets seen. IMPRESSION: Bladder post void volume 11 mL. - Heydi Merrill MD [facility] US ORDERABLES Final Resu lt * (ABNORMAL) POCT EDIL SARS ANTIGEN (02/21/2020 2:02 PM EDT) SARS Antigen Positive(A ) Negative SEP OFFICE Lot Number SEP OFFICE Expiration Date SEP OFFICE SeriAl # SEP OFFICE Control Line Yes YES/NO SEP OFFICE 02/21/2020 2:02 PM EDT Janet Vogt MD POINT OF CARE TEST DIANA FREEDMAN Final Result SEP OFFICE * DX BONE DENSITY AXIAL SKELETON (01/18/2020 12:51 PM EDT) Only the most recent of2 resultswithin the time period is included. Anatomical Region Laterality Modality Dexa Scan 01/18/2020 Narrative 01/18/2020 4:02 PM EDT Indication: The patient is a female age 65 or older who requires a bone density assessment. Study was performed on [employer] APEX 5. Bone Density: Region BMD T-score Z-score AP Spine (L1, L2) 0.917 -0.6 1.7 Femoral Neck (Right) 0.633 -1.9 0.1 Total Hip (Right) 0.784 -1.3 0.5 1/3 Radius (Left) 0.650 -0.7 1.8 World Health Organization criteria for BMD interpretation classify patients as: Normal (T-score at or above -1.0), Low Bone Density (T-score between -1.0 and -2.5), or Osteoporotic (T-score at or below -2.5). T Scores are reported in Postmenopausal women and in men age 50 and older. Z-scores are reported in females prior to menopause and in males younger than age 50. 10-year Fracture Risk(1): Major Osteoporotic Fracture 13% Hip Fracture 3.2% Reported Risk Factors: [place] (), Neck BMD=0.633, BMI=27.5 (1) FRAX(R) Version 3.08. Fracture probability calculated for an untreated patient. Fracture probability may be lower if the patient has received treatment. Previous Exams: Region Date Age BMD T-score BMD Change Total Hip(Right) 01/18/2020 74 0.784 -1.3 -2.6% 05/26/2010 64 0.805 -1.1 4.3%* 07/10/2008 62 0.772 -1.4 1/3 Forearm(Left) 01/18/2020 74 0.650 -0.7 -1.5% 05/26/2010 64 0.660 -0.6 *Denotes significance at 95% confidence level, LSC for AP Spine = 0.032g/cm2, LSC for Total Hip = 0.024 g/cm2, LSC for Distal 1/3 Radius = 0.026 g/cm2, site specific LSC for Total Hip = 0.022 g/cm2, site specific LSC for 1/3 Forearm = 0.026 g/cm2 BMD is shown in g/cm2 and BMD Change indicates change vs previous BMD Clinical Information Provided by Patient: Has used or is currently using the following medications: Vitamin D, Thyroid medication Has had or currently has the following medical conditions: Back pain, Vitamin D Insufficiency Patient maximum height was 65 Menopause Age: 28 Patient is postmenopausal Interpretation: Bone mineral density is in the low bone density range. A minimum of two years may be required between bone density studies due to inherent testing precision limitations. Intervals between BMD testing should be determined according to each patient's clinical status: typically one year after initiation or change of therapy is appropriate, with longer intervals once therapeutic effect is established. The right hip bone mineral density is not significantly changed since the last exam. Although not approved for monitoring therapy the forearm bone mineral density is not significantly changed since the last exam. The spine portion of the study is a new baseline and is not able to be compared. The spine portion of the study is limited by visual hypertrophic change with associated vertebrae deleted. Patient's FRAX score indicates the patient is at increased risk for a fragility fracture in the next 10 years. Patient's FRAX score is included in the body of this report. The National Osteoporosis Foundation recommends treating patients with FRAX scores of greater than or equal to 20% for major osteoporotic fractures for greater than or equal to 3% for hip fracture. Reported by: Sapphire Hull PA-C, CCD on 01/18/2020 1:11:00 PM. Janet Vogt MD IM DEXA ORDERABLES Fin al Result * SEDIMENTATION RATE AUTOMATED (01/08/2020 1:53 PM EDT) [facility] Sed Rate 6 0 - 30 mm/hr 01/08/2020 6:21 PM EDT [facility] Blood VENOUS BLOOD / Unknown Venipuncture / Unknown 01/08/2020 1:53 PM EDT 01/08/2020 1:53 PM EDT Severo J Sester DO HEMATOLOGY ORDERABLES Final Res ult [facility] [address] [place] [address] * C-REACTIVE PROTEIN (01/08/2020 1:53 PM EDT) CRP 0.52 <=5.00 mg/L 01/08/2020 6:03 PM EDT PREFERRED [facility] Blood VENOUS BLOOD / Unknown Venipuncture / Unknown 01/08/2020 1:53 PM EDT 01/08/2020 1:53 PM EDT us Severo Harrell DO CHEMISTRY ORDERABLES Final Resu lt Performing Organization Address City/[facility]/ZIP Co de Phone Number [employer] [address] [facility], [place] [address] * EK EKG CVMHU SCREENING (12/19/2019 12:15 PM EDT) Anatomical Region Laterality Modality Electrocardiogra phy 12/19/2019 7:34 AM EDT Impressions 12/20/2019 1:18 PM EDT [facility]: 2019[facility]19 Pat Name: GILBERT MOREIRA Department: DEPID Room: Gender: Female [employer] 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 Electronically Signed On 12-20-2019 13:18:04 EDT by Jorge Parker MD Leoncio Haywood APRN [facility] CVMHU EKG DIANA FREEDMAN Final Result * [facility] VASCULAR CVMHU SCREENING SINGLE EXAM (12/19/2019 12:14 PM EDT) Only the most recent of2 resultswithin the time period is included. Anatomical Region Laterality Modality Vascular Electrocardiogra phy 12/19/2019 11:4 9 AM EDT Impressions 12/19/2019 11:19 PM EDT Findings & Recommendations Mild plaque seen during carotid artery screening. Recommend to follow up with primary care physician to discuss risk modification and maybe rescreened in one year. The blood pressure taken at this screening is within normal ranges described by the [place] [employer] guidelines. Narrative Procedure Note Arthur Luna MD - 12/19/2019 IMPRESSION Findings & Recommendations Mild plaque seen during carotid artery screening. Recommend to follow upwith primary care physician to discuss risk modification and maybe rescreened in one year. The blood pressure taken at this screening is within normal rangesdescribed by the [place] [employer] guidelines. Leoncio Haywood APRN IMG VASCULAR ORDER LILO Final Result * GMED COLONOSCOPY (07/11/2019 12:30 PM EDT) 07/11/2019 12:3 0 PM EDT Impressions [facility] - 07/11/2019 1:00 PM EDT Erythema in the distal rectum. (Biopsy). Otherwise normal colonoscopy. Abnormal digital rectal exam (large external hemorrhoids). Plan: No need for further screening colonoscopies due to age. This section is an excerpt of the full report. Gerardo Rahman MD GI PROCEDURE ORDERABLES Fi nal Result [facility] [address] [place] [address] * (ABNORMAL) POCT URINALYSIS DIPSTICK (05/24/2019 1:49 PM EST) Only the most recent of6 resultswithin the time period is included. 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 Anatomical Region Laterality Modality Breast Bilateral Mammography 03/12/2019 11:0 8 AM EST Impressions 03/12/2019 11:08 AM EST Negative ([id number]-[id number]-5) ~ RECOMMENDATION: Routine screening mammogram in 1 year. ~ DISCLAIMER * Any patient with a palpable abnormality, unexplained by breast imaging, should be managed on clinical basis by the attending physician. * Breast imaging has a false negative rate of 15%. * The patient was notified by mail of the results of this examination. *The patient's information was entered into a reminder system with a target due date for the next mammogram. The mammogram was reviewed by a Radiologist and CAD. Narrative 03/12/2019 11:08 AM EST Procedure:MM MAMMO DIGITAL SCREENING W CAD BILAT ~ Reason for exam: screening, asymptomatic. Z12.31-Encounter for screening mammogram for malignant neoplasm of [id number]-CM ~ MM MAMMO DIG SCREEN CAD BILAT Bilateral CC and MLO view(s) were taken. The breast tissue is almost entirely fat. Prior study comparison: Compared with prior studies the most recent being 01/31/18, 10/15/16 No mammographic evidence of malignancy. ~ Procedure Note Leslye Hernandez MD - 03/12/2019 Procedure:MM MAMMO DIGITAL SCREENING W CAD BILAT ~ Reason for exam: screening, asymptomatic. Z12.31-Encounter for screening mammogram for malignant neoplasm of [id number]-CM ~ MM MAMMO DIG SCREEN CAD BILAT Bilateral CC and MLO view(s) were taken. The breast tissue is almost entirely fat. Prior study comparison: Compared with prior studies the most recentbeing 01/31/18, 10/15/16 No mammographic evidence of malignancy. ~ IMPRESSION: Negative ([id number]-2) ~ RECOMMENDATION: Routine screening mammogram in 1 year. ~ DISCLAIMER * Any patient with a palpable abnormality, unexplained by breast imaging, should be managed on clinical basis by the attending physician. * Breast imaging has a false negative rate of 15%. * The patient was notified by mail of the results of this examination. *The patient's information was entered into a reminder system with atarget due date for the next mammogram. The mammogram was reviewed by a Radiologist and CAD. 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 Grav, UA 1.015 1.001 - 1.035 G/DL SEP OFFICE Blood, UA 1+ POS/NEG SEP OFFICE pH, UA 6.0 5.0 - 8 SEP OFFICE Protein, UA trace POS/NEG SEP OFFICE Urobilinogen, UA neg 0.2 - 1.0 MG/DL SEP OFFICE Leukocytes, UA trace POS/NEG SEP OFFICE Nitrite, UA neg POS/NEG SEP OFFICE Appear BF Clear SEP OFFICE Lot Number [id number] SEP OFFICE Expiration Date 11/08/2020 SEP OFFICE SeriAl # SEP OFFICE Urine 02/24/2019 1:41 PM EDT Flaca Aguila MD POINT OF CARE TEST ORDERABLES Edited Result - Final SEP OFFICE * XR ABDOMEN AP (11/23/2018 10:17 AM EDT) Anatomical Region Laterality Modality Abdomen Radiographic Loly ging 11/23/2018 10:1 7 AM EDT Impressions 11/23/2018 11:06 AM EDT Nonspecific abdomen. No evidence of constipation pattern. - - Narrative 11/23/2018 11:06 AM EDT CR, ABDOMEN AP, 11/23/2018 10:17 AM CLINICAL HISTORY: K59.01-Slow transit [id number]-90-CM COMPARISON: None. PROCEDURE COMMENTS: AP view(s) of the abdomen per protocol. FINDINGS: Bowel gas pattern nonspecific. Stool burden not atypical. No small bowel distention. No organomegaly or mass. No abnormal calcifications. Procedure Note Galdino Sosa MD - 11/23/2018 CR, ABDOMEN AP, 11/23/2018 10:17 AM CLINICAL HISTORY: K59.01-Slow transit [id number]-CM COMPARISON: None. PROCEDURE COMMENTS: AP view(s) of the abdomen per protocol. FINDINGS: Bowel gas pattern nonspecific. Stool burden not atypical. No small bowel distention. No organomegaly or mass. No abnormal calcifications. IMPRESSION: Nonspecific abdomen. No evidence of constipation pattern. - - Sandra Murrell PA-C IMG DIAGNOSTIC IMAGING ORD ERABLES Final Result * CT ANGIOGRAM CORONARY W CONTRAST (09/20/2018 11:17 AM EDT) Anatomical Region Laterality Modality Chest Computed Tomogra phy 09/20/2018 11:1 7 AM EDT Impressions 09/20/2018 12:15 PM EDT Diffusely small caliber coronary arteries somewhat limits assessment by CTA, and possibly related to inadequate response to nitroglycerin. Atherosclerotic plaque proximal LAD and circumflex with up to 49% stenosis proximal LAD noted. CAD-RADS CLASSIFICATION: CAD RADS 2. 25-49% maximal coronary stenosis. Consistent with mild nonobstructive coronary artery disease. CAD-RADS MODIFIERS: No relevant modifier. CAD-RADS (Coronary Artery Disease-Reporting and Data System) is endorsed by the [place] [employer]. CAD-RADS grading is applied to vessels 1.5mm diameter and greater only. Link to source document. https://cdn.Myrio/scct.org/resource/resmgr/cad-rads/scct_jcct_cad-rads.pdf - - Narrative 09/20/2018 12:[address] CORONARY ANGIOGRAM, 09/20/2018 11:17 AM CLINICAL HISTORY: Z13.9-Encounter for screening, [id number]-CM COMPARISON: None. PROCEDURE COMMENTS: Heart rate control using Metoprolol as documented in EPIC. 0.4mg of SL NTG given. 75 mL Isovue 370 intravenous contrast material. CCTA prospective ECG-gated technique for coronary artery visualization. Interactive 3-D postprocessing done by the reviewing physician on a [employer] workstation, with one or more of the following: Maximum intensity projections (MIPS), Shaded surface rendering, and/or Volume rendering. Perez images archived to PACS. FINDINGS: TECHNICAL QUALITY: Good with minor artifacts. Coronary arteries diffusely somewhat small in caliber. CORONARY ORIGINS: Normal position. Tiny PDA arises from the bilateral coronary circulation. LEFT MAIN: Bifurcates into LAD and Circumflex branches. Normal. No vessel narrowing. LAD (+ ramus intermedius if present): Mild narrowing, 25-49% due to eccentric calcified proximal plaque. The dominant stenosis is in the proximal 1/3 of the vessel. CIRCUMFLEX: Minimal narrowing, up to 24% due to eccentric minimal calcified proximal plaque. The dominant stenosis is in the proximal 1/3 of the vessel. RCA: Normal. No vessel narrowing. CARDIAC VALVES: No significant thickening or calcifications of the aortic or mitral valves. ATRIAL APPENDAGE: No thrombus. PERICARDIUM: Normal thickness. No effusion. EXTRACARDIAC: Visible lung parenchyma without mass or consolidation. No mediastinal mass lesion. Normal sized lymph nodes noted. Procedure Note Leoncio Nichole MD - 09/20/2018 CT CORONARY ANGIOGRAM, 09/20/2018 11:17 AM CLINICAL HISTORY: Z13.9-Encounter for screening, [id number]-CM COMPARISON: None. PROCEDURE COMMENTS: Heart rate control using Metoprolol as documented inEPIC. 0.4mg of SL NTG given. 75 mL Isovue 370 intravenous contrast material.CCTA prospective ECG-gated technique for coronary artery visualization.Interactive 3-D postprocessing done by the reviewing physician on a [employer] workstation,with one or more of the following: Maximum intensity projections (MIPS),Shaded surface rendering, and/or Volume rendering. Perez images archived to PACS. FINDINGS: TECHNICAL QUALITY: Good with minor artifacts. Coronary arteriesdiffusely somewhat small in caliber. CORONARY ORIGINS: Normal position. Tiny PDA arises from the bilateralcoronary circulation. LEFT MAIN: Bifurcates into LAD and Circumflex branches. Normal. Novessel narrowing. LAD (+ ramus intermedius if present): Mild narrowing, 25-49% due toeccentric calcified proximal plaque. The dominant stenosis is in the proximal 1/3of the vessel. CIRCUMFLEX: Minimal narrowing, up to 24% due to eccentric minimalcalcified proximal plaque. The dominant stenosis is in the proximal 1/3 of thevessel. RCA: Normal. No vessel narrowing. CARDIAC VALVES: No significant thickening or calcifications of the aorticor mitral valves. ATRIAL APPENDAGE: No thrombus. PERICARDIUM: Normal thickness. No effusion. EXTRACARDIAC: Visible lung parenchyma without mass or consolidation.No mediastinal mass lesion. Normal sized lymph nodes noted. IMPRESSION: Diffusely small caliber coronary arteries somewhat limits assessment by CTA, and possibly related to inadequate response to nitroglycerin. Atherosclerotic plaque proximal LAD and circumflex with up to 49%stenosis proximal LAD noted. CAD-RADS CLASSIFICATION: CAD RADS 2. 25-49% maximal coronary stenosis. Consistent with mild nonobstructive coronary artery disease. CAD-RADS MODIFIERS: No relevant modifier. CAD-RADS (Coronary Artery Disease-Reporting and Data System) is endorsedby the [place] College of [employer]iology. CAD-RADS grading is applied to vessels1.5mm diameter and greater only. Link to source document. https://cdn.dINK.com/scct.org/resource/resmgr/cad-rads/scct_jcct_cad-rads.pdf - - Manav Batista MD IMG CT ORDERABLES Final Res ult * CREATININE ISTAT (09/20/2018 10:36 AM EDT) Creatinine-iST AT 1.0 0.6 - 1.3 mg/dL 09/20/2018 10:38 AM EDT [facility] Blood BLOOD SPECIMEN / Unknown 09/20/2018 10:36 AM EDT 09/20/2018 10:38 AM EDT Manav Batista MD POINT OF CARE TEST ORDERABL ES Final Result [facility] [address] [place] [address] * MD US VISCERAL VASCULAR COMPLETE (07/03/2018 11:27 AM EST) Anatomical Region Laterality Modality Abdomen, Vascular Vascular Imagi ng 07/03/2018 10:5 8 AM EST Impressions 07/03/2018 1:42 PM EST CONCLUSIONS No evidence of AAA. Bilateral kidney measurements are within normal limits. Flow was visualized within the bilateral kidneys. No evidence of renal artery stenosis bilaterally by the RAR. Elevated velocities are identified in the celiac artery. Narrative Procedure Note Leoncio Nichole MD - 07/03/2018 IMPRESSION CONCLUSIONS No evidence of AAA. Bilateral kidney measurements are within normal limits. Flow was visualized within the bilateral kidneys. No evidence of renal artery stenosis bilaterally by the RAR. Elevated velocities are identified in the celiac artery. us William Presley PA-C IMG VASCULAR ORDERABLES Final Result * EXTRA GRETA MENENDEZ (06/14/2018 11:56 PM EST) Only the most recent of2 resultswithin the time period is included. Blood VENOUS BLOOD / Unknown Venipuncture / Unknown 06/14/2018 11:56 PM EST 06/14/2018 11:58 PM EST Sameer Coffey MD CHEMISTRY ORDERABLES Final Resu lt Performing Organization Address [facility] Phone Number [address] [address] * EXTRA LAVENDER (06/14/2018 11:56 PM EST) Only the most recent of2 resultswithin the time period is included. Blood VENOUS BLOOD / Unknown Venipuncture / Unknown 06/14/2018 11:56 PM EST 06/14/2018 11:58 PM EST Sameer Coffey MD HEMATOLOGY ORDERABLES Final Res ult Performing Organization Address [facility] Phone Number [address] [address] * EXTRA LIGHT BLUE (06/14/2018 11:56 PM EST) Only the most recent of2 resultswithin the time period is included. Blood VENOUS BLOOD / Unknown Venipuncture / Unknown 06/14/2018 11:56 PM EST 06/14/2018 11:58 PM EST Sameer Coffey MD HEMATOLOGY ORDERABLES Final Res ult Performing Organization Address [facility] [place] Number [address] [address] * GRUBBS VISUAL FIELD - OU - BOTH EYES (06/02/2018 3:28 PM EST) Narrative SEP OFFICE - 06/02/2018 3:28 PM EST Patient is here for baseline imaging. Right Eye Reliability was good. Foveal threshold was normal. Findings include inferior altitudinal defect. Left Eye Reliability was good. Foveal threshold was normal. Findings include non-specific defects. Na Ang MD OPHTHALMOLOGY SERVICES ORDERAB LES Final Result Performing Organization Address [facility] Co de Phone Number SEP OFFICE * EC ECHOCARDIOGRAM COMPLETE W DOPPLER AND COLOR FLOW MAPPING (05/09/2018 1:50 PM EST) Ejection Fraction 65-70 % PYRAMIS Anatomical Region Laterality Modality Electrocardiogra phy 05/09/2018 1:00 PM EST Impressions 05/09/2018 3:33 PM EST CONCLUSIONS Left Ventricular ejection fraction is estimated at 65-70%. Mild concentric hypertrophy. Trace aortic regurgitation. Mild mitral and tricuspid regurgitation. Narrative Procedure Note Kendy Biggs DO - 05/09/2018 IMPRESSION CONCLUSIONS Left Ventricular ejection fraction is estimated at 65-70%. Mild concentric hypertrophy. Trace aortic regurgitation. Mild mitral and tricuspid regurgitation. Kendy Biggs DO IMG ECHO ORDERABLES Final Result * OCT, OPTIC NERVE - OU - BOTH EYES (05/08/2018 9:05 AM EST) Narrative SEP OFFICE - 05/08/2018 9:05 AM EST Right Eye Reliability was good. Temporal thickness was normal. Superior thickness was normal. Nasal thickness was normal. Inferior thickness was normal. Left Eye Temporal thickness was showing abnormal thinning. Superior thickness was showing abnormal thinning. Na Ang MD OPHTHALMOLOGY SERVICES ORDERAB LES Final Result SEP OFFICE * ECG AND WAVEFORMS - TELEMETRY (04/25/2018 7:24 AM EST) Only the most recent of3 resultswithin the time period is included. [facility] ECG INTERPRET NSR [facility] MANDARIN [employer] TE[employer]ER APPROVED Yes [facility] 04/25/2018 7:24 AM EST Narrative [facility] - 04/25/2018 10:01 AM EST DC 0.23 QRS 0.09 RR 1.02 QT 0.42 QTc 0.41 See Clinical Report link for waveform capture Unknown Provider POINT OF CARE CARDIOLOGY Final Result [facility] [address] [place] [address] * (ABNORMAL) LIPID SCREEN (04/25/2018 4:30 AM EST) Cholesterol 216(H) <=200 mg/dL 04/25/2018 2:57 PM EST PREFERRED [employer] Comment: < 200 Desirable 200 - 239 Borderline High >= 240 High Triglyceride 94 <=150 mg/dL 04/25/2018 2:57 PM EST [employer] Comment: < 150 Normal 150 - 199 Borderline High 200 - 499 High >= 500 Very High HDL 48 >=40 mg/dL 04/25/2018 2:57 PM EST [employer] Comment: > 60 Optimal 40 - 60 Acceptable < 40 Low LDL Calculated 149(H) <=100 mg/dL 04/25/2018 2:57 PM EST [employer] Comment: < 100 Optimal 100 - 129 Near or above optimal 130 - 159 Borderline High 160 - 189 High >= 190 Very High Non-HDL-C Calculated 168(H) <=129 mg/dL 04/25/2018 2:57 PM EST [employer] Comment: <130 Desirable 130-159 Above Desirable 160-189 Borderline High 190-219 High >= 220 Very High Blood VENOUS BLOOD / Unknown Venipuncture / Unknown 04/25/2018 4:30 AM EST 04/25/2018 4:33 AM EST us Sameer Elizondo MD CHEMISTRY ORDERABLES Final Resul t PREFERRED [employer] [address] [facility] , [place] [address] * CT ANGIOGRAM HEAD AND NECK W CONTRAST (04/24/2018 10:48 PM EST) Anatomical Region Laterality Modality Head Computed Tomogra phy 04/24/2018 10:4 8 PM EST Impressions 04/24/2018 10:59 PM EST 1. No acute abnormality of arterial structures within the neck. 2. No acute intracranial abnormality. Variant developmental anatomy as noted. Note: Any carotid stenosis was calculated using NASCET criteria Narrative 04/24/2018 10:[address] ANGIOGRAM HEAD AND NECK W CONTRAST, 04/24/2018 10:48 PM CLINICAL HISTORY: -left sided numbness. Code Stroke. CT head stroke protocol 2213 hours today. COMPARISON: None. PROCEDURE COMMENTS: Following the intravenous administration of 75 mL Isovue 370, thin section helical images obtained from the aortic arch to the top of the head and both sagittal and coronal reconstructions performed. Two-dimensional as well as three-dimensional maximum intensity projection reconstructions were reviewed.. Automated exposure control for dose reduction was used. CTDIvol: 2.4 - 9.1 mGy. DLP: 385 mGy-cm. FINDINGS: Arch anatomy is standard. The proximal great vessels are patent. Both carotid arteries are patent. There is minimal atherosclerotic disease at the bulb. The right vertebral artery is diminutive, as it terminates at PICA. The left vertebral artery is dominant. There is no acute vertebral artery abnormality identified. Intracranial circulation shows no aneurysm or occlusion. There is a diminutive A1 segment on the right with a prominent anterior communicating artery and dominant left A1 segment supplying anterior cerebral arteries. Both middle cerebral arteries are patent. Both posterior cerebral arteries are visualized. There is mild cervical degenerative change present. Upper mediastinum is unremarkable. Procedure Note Clayton Ross MD - 04/24/2018 CT ANGIOGRAM HEAD AND NECK W CONTRAST, 04/24/2018 10:48 PM CLINICAL HISTORY: -left sided numbness. Code Stroke. CT head strokeprotocol 2213 hours today. COMPARISON: None. PROCEDURE COMMENTS: Following the intravenous administration of 75 mLIsovue 370, thin section helical images obtained from the aortic arch to the topof the head and both sagittal and coronal reconstructions performed.Two-dimensional as well as three-dimensional maximum intensity projection reconstructionswere reviewed.. Automated exposure control for dose reduction was used.CTDIvol: 2.4 - 9.1 mGy. DLP: 385 mGy-cm. FINDINGS: Arch anatomy is standard. The proximal great vessels are patent. Both carotid arteries are patent. There is minimal atherosclerotic diseaseat the bulb. The right vertebral artery is diminutive, as it terminates at PICA. Theleft vertebral artery is dominant. There is no acute vertebral arteryabnormality identified. Intracranial circulation shows no aneurysm or occlusion. There is adiminutive A1 segment on the right with a prominent anterior communicating arteryand dominant left A1 segment supplying anterior cerebral arteries. Both middle cerebral arteries are patent. Both posterior cerebral arteriesare visualized. There is mild cervical degenerative change present. Upper mediastinum is unremarkable. IMPRESSION: 1. No acute abnormality of arterial structures within the neck. 2. No acute intracranial abnormality. Variant developmental anatomy asnoted. Note: Any carotid stenosis was calculated using NASCET criteria us Binh Morales MD IM CT ORDERABLES Final Resu lt * CT HEAD STROKE PROTOCOL (04/24/2018 10:22 PM EST) Anatomical Region Laterality Modality Head Computed Tomogra phy 04/24/2018 10:2 2 PM EST Impressions 04/24/2018 10:31 PM EST Normal exam. To expedite care, perez exam findings were urgently telephoned to patient's charge nurse Claire by Dr. Sanchez at 04/24/2018 10:30 PM. Narrative 04/24/2018 10:[address] HEAD STROKE PROTOCOL 04/24/2018 10:22 PM CLINICAL HISTORY: -Stroke. Dizziness. Left-sided numbness. COMPARISON: None. PROCEDURE COMMENTS: Stroke protocol head CT. Multiplanar MIPS. Automated exposure control for dose reduction was used. CTDIvol: 47.5 mGy. DLP: 789 mGy-cm. FINDINGS: Normal ventricles. Minimal bilateral globus pallidus calcification considered physiologic. No abnormal parenchymal attenuation. No evidence of acute stroke, mass, or hemorrhage. No fracture or extra-axial collection. No hyperdense vessel segments. Included portions of the paranasal sinuses, mastoids, and orbits unremarkable. Procedure Note Severo Sanchez MD - 04/24/2018 CT HEAD STROKE PROTOCOL 04/24/2018 10:22 PM CLINICAL HISTORY: -Stroke. Dizziness. Left-sided numbness. COMPARISON: None. PROCEDURE COMMENTS: Stroke protocol head CT. Multiplanar MIPS.Automated exposure control for dose reduction was used. CTDIvol: 47.5 mGy. DLP:789 mGy-cm. FINDINGS: Normal ventricles. Minimal bilateral globus pallidus calcificationconsidered physiologic. No abnormal parenchymal attenuation. No evidence of acutestroke, mass, or hemorrhage. No fracture or extra-axial collection. No hyperdensevessel segments. Included portions of the paranasal sinuses, mastoids, and orbitsunremarkable. IMPRESSION: Normal exam. To expedite care, perez exam findings were urgently telephoned to patient'scharge nurse Claire by Dr. Sanchez at 04/24/2018 10:30 PM. us Binh Morales MD IMG CT ORDERABLES Final Resu lt * (ABNORMAL) GLUCOSE METER POC (04/24/2018 10:01 PM EST) Only the most recent of2 resultswithin the time period is included. [facility] Glucose Meter POC 155(H) 70 - 100 mg/dL 04/24/2018 10:02 PM EST [facility] Sample Type Capillary 04/24/2018 10:02 PM EST [facility] Patient Status Non-Critical Patient 04/24/2018 10:02 PM EST [facility] Blood BLOOD SPECIMEN / Unknown 04/24/2018 10:01 PM EST 04/24/2018 10:02 PM EST Sameer Elizondo MD POINT OF CARE TEST ORDERABLES Fi nal Result [facility] [address] [place] [address] * DEXA SCAN (10/07/2017) Impressions SEP OFFICE - 10/07/2017 The bone mineral density in the lumbar spine including the L1-L2 levels is measured at 0.90 g/cm2, which corresponds to a T-score of -0.7 and a Z-score of 1.4. This is within the normal range by WHO criteria. LEFT HIP: The bone mineral density in the total hip is measured at 0.91 g/cm2 corresponding to a T-score of -0.3 and a Z-score of 1.4. This is within the normal range by WHO criteria. The bone mineral density of the femoral neck is measured at 0.66 g/cm2 corresponding to a T-score of -1.7 and a Z-score of 0.3. This is within the osteopenia range by WHO criteria. LEFT FOREARM: The BMD of the middle third of the radius of the distal forearm equals 0.62 g/cm2. The T- and Z-scores are -1.3 and 1.1 standard deviations from the mean. This is within the osteopenia range by WHO criteria. The ten year risk for a major osteoporotic fracture is 17% and the risk of a hip fracture is 3% Historical Provider HEALTH MAINTENANCE Final Res ult SEP OFFICE * MRI KNEE RIGHT WO CONTRAST (04/12/2012 4:31 PM EST) Anatomical Region Laterality Modality Knee Magnetic Resonan ce 04/12/2012 Narrative 04/12/2012 4:52 PM EST MRI KNEE RIGHT WO CONTRAST 04/12/2012 at 1605 hours Clinical: 66-year-old female. Knee pain. No known injury. Technical: Multiecho, multiplanar sequence cyst. FINDINGS: 1. Small joint effusion. 2. Normal marrow signal. 3. Internal degeneration both menisci without tear. 4. Minor chondromalacia medial joint compartment, and patella with fissuring of cartilage. Bony changes within the patella associated with the cartilage abnormalities. 5. Intact cruciate ligaments. 6. Quadriceps tendon, infrapatellar tendon, medial collateral ligament, iliotibial band, and fibular collateral ligament intact. 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 Chondromalacia medial joint compartment, patella. Minimal joint effusion. Procedure Note Geoff Gutierrez MD - 04/12/2012 MRI KNEE RIGHT WO CONTRAST 04/12/2012 at 1605 hours Clinical: 66-year-old female. Knee pain. No known injury. Technical: Multiecho, multiplanar sequence cyst. FINDINGS: 1. Small joint effusion. 2. Normal marrow signal. 3. Internal degeneration both menisci without tear. 4. Minor chondromalacia medial joint compartment, and patella withfissuring of cartilage. Bony changes within the patella associated with the cartilage abnormalities. 5. Intact cruciate ligaments. 6. Quadriceps tendon, infrapatellar tendon, medial collateral ligament,iliotibial band, and fibular collateral ligament intact. 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 Minimal joint effusion. Geoff Dozier MD [facility] MRI ORDERABLES Final Result * MRI LUMBAR SPINE W WO CONTRAST (09/24/2011 4:39 PM EDT) Anatomical Region Laterality Modality L-spine Magnetic Resonan ce 09/24/2011 Impressions 09/28/2011 7:23 AM EDT IMPRESSION: 1. Interval surgery L3-L4 with multilevel minimal diffuse disc bulges and mild bilateral facet and ligamentum hypertrophy, superimposed on congenitally narrowed central canal. No significant neural foraminal or central stenosis. No gross evidence of nerve root impingement or entrapment. Left L4-L5 neural foramen is most narrowed; mild to moderate Narrative 09/28/2011 7:23 AM EDT MRI lumbar spine with and without contrast: 09/24/2011. COMPARISON: 02/02/2008. INDICATION: 65-year-old with right-side hip, sacral and groin pain. Spine surgery 2007. TECHNICAL FACTORS: T1 and T2-weighted sequences obtained with and without 15 mL MultiHance on 3.0 Brunilda magnet. FINDINGS: There is little to no lumbar lordosis. Vertebral bodies demonstrate normal height, configuration and alignment. Marrow signal has a mild diffuse mottled appearance. Small Schmorl's node defect involves inferior endplate L3. No significant disc space narrowing. L2-L3 and L4-L5 disc spaces are partially desiccated. Central canal is congenitally narrowed. Conus tip ends upper L2. Conus is normal in signal and configuration. No abnormal enhancement. T11-T12 disc space is normal on sagittal sequences. T12-L1 disc is also normal. No neural frontal stenosis. At L1-L2, there is minimal diffuse disc bulge with a tiny left paracentral annular tear. Previous moderate central disc bulge has regressed. Minimal central canal narrowing. Mild bilateral ligamentum flavum and facet hypertrophy. Neural foramina remain patent. At L2-L3, there is minimal diffuse disc bulge. Mild ligamentum flavum and facet hypertrophy contribute to overall mild to moderate central canal stenosis. Inferior neural foramen are mildly narrowed. L3-L4, minimal diffuse disc bulge exists. There is evidence of left paracentral approach discectomy with irregular track-like enhancement in the disc and right anterolateral epidural space. Inferior right L4 facet has been removed. There is mild ligamentum flavum and mild bilateral facet hypertrophy. Right lateral recess is mildly narrowed from enhancing granulation tissue. Central canal narrowing is minimal. Both inferior neural foramina are mildly narrowed. At L4-L5, minimal diffuse disc bulge with tiny annular tear. Both lateral recesses are slightly narrowed. There is mild central canal narrowing. Mild to moderate bilateral ligamentum flavum and facet hypertrophy. Fluid seen within both facet joints. Right neural foramen is mildly narrowed. Left neural foramen is mild to moderately narrowed. At L5-S1, posterior disc margin is normal. No central canal or neural foraminal stenosis. S1 nerve roots are unremarkable. Mild degenerative changes bilateral facet joints. There is partial inclusion of a 2 cm left anterolateral renal cyst. Procedure Note Emma Altman MD - 09/28/2011 MRI lumbar spine with and without contrast: 09/24/2011. COMPARISON: 02/02/2008. INDICATION: 65-year-old with right-side hip, sacral and groin pain. Spinesurgery 2007. TECHNICAL FACTORS: T1 and T2-weighted sequences obtained with and oextupz35 mL MultiHance on 3.0 Brunilda magnet. FINDINGS: There is little to no lumbar lordosis. Vertebral bodies demonstrate normalheight, configuration and alignment. Marrow signal has a mild diffuse mottledappearance. Small Schmorl's node defect involves inferior endplate L3. No significant discspace narrowing. L2-L3 and L4-L5 disc spaces are partially desiccated. Central canal iscongenitally narrowed. Conus tip ends upper L2. Conus is normal in signal and configuration. Noabnormal enhancement. T11-T12 disc space is normal on sagittal sequences. T12-L1 disc is alsonormal. No neural frontal stenosis. At L1-L2, there is minimal diffuse disc bulge with a tiny left paracentralannular tear. Previous moderate central disc bulge has regressed. Minimal central canalnarrowing. Mild bilateral ligamentum flavum and facet hypertrophy. Neural foramina remainpatent. At L2-L3, there is minimal diffuse disc bulge. Mild ligamentum flavum andfacet hypertrophy contribute to overall mild to moderate central canal stenosis. Inferiorneural foramen are mildly narrowed. L3-L4, minimal diffuse disc bulge exists. There is evidence of leftparacentral approach discectomy with irregular track-like enhancement in the disc and rightanterolateral epidural space. Inferior right L4 facet has been removed. There is mild ligamentumflavum and mild bilateral facet hypertrophy. Right lateral recess is mildly narrowed fromenhancing granulation tissue. Central canal narrowing is minimal. Both inferior neural foraminaare mildly narrowed. At L4-L5, minimal diffuse disc bulge with tiny annular tear. Both lateralrecesses are slightly narrowed. There is mild central canal narrowing. Mild to moderatebilateral ligamentum flavum and facet hypertrophy. Fluid seen within both facet joints. Right neuralforamen is mildly narrowed. Left neural foramen is mild to moderately narrowed. At L5-S1, posterior disc margin is normal. No central canal or neuralforaminal stenosis. S1 nerve roots are unremarkable. Mild degenerative changes bilateral facetjoints. There is partial inclusion of a 2 cm left anterolateral renal cyst. IMPRESSION: 1. Interval surgery L3-L4 with multilevel minimal diffuse disc bulges andmild bilateral facet and ligamentum hypertrophy, superimposed on congenitally narrowed centralcanal. No significant neural foraminal or central stenosis. No gross evidence of nerve rootimpingement or entrapment. Left L4-L5 neural foramen is most narrowed; mild to moderate Geoff Gant [facility] MRI ORDERABLES Final Result * SURGICAL PATHOLOGY REPORT (06/17/2011 6:44 PM EST) Surgical Pathology Report PATIENT NAME:GILBERT MOREIRA Surgical Pathology Report Accession Number Collected Date/Time Received Date/Time [id number] 06/17/11 18:44 EST 06/17/11 18:44 EST Diagnosis 1) Ascending colon: - Non-Dysplastic Mucosal Polyps, consistent with Hyperplastic polyps. 2) Rectum: - Non-Dysplastic Mucosal Polyps, consistent with Hyperplastic polyps. CESAR MASON MD (Electronically signed by) Verified: 06/22/2011 TS[facility] Sign Out Location Comment CPT CODE 21678 x 2 Clinical Information Screening colonoscopy; personal history of colon polyps; family history of colorectal cancer and colon adenoma. Normal mucosa in the whole colon; polyps in the ascending colon and rectum; angiectasis in the cecum. Gross Description Part 1) Received in formalin labeled with the patient s name and ascending colon are approximately 10 fragments of rico tissue measuring less than 0.1 to 0.3 cm in greatest dimension. Entirely submitted in one cassette. /HK Part 2) Received in formalin labeled with the patient s name and rectum are three fragments of rico tissue ranging from 0.1 to 0.3 cm in greatest dimension. Entirely submitted in one cassette. /HK DRB/NOVA Microscopic Description Microscopic examination is performed and the findings corroborate the diagnosis. _ [facility] 06/17/2011 6:44 PM EST us Soha Lau PATHOLOGY ORDERABLES Final Resul t [facility] [address] [place] [address] * DX VERTEBRAL FRACTURE ASSESSMENT (05/26/2010 12:54 PM EST) Anatomical Region Laterality Modality Dexa Scan Narrative 05/28/2010 7:07 AM EST Kat Timmons P.A.-C, dictating for Colton Wisdom M.D. Date: 05-26-10 Vertebral Fracture Assessment: Clinical Indications: This is a 64-year-old postmenopausal female with history of adult fracture. The patient has low bone density. Findings: 1. Vertebral fracture assessment was performed on Hologic equipment in the supine position with a lateral image obtained for evaluation. 2. Confounding factors for this examination include lung markings, bowel gas. The scan is interpretable from T6-L4. 3. Using semi-quantitative analysis of Genant, there is no evidence of vertebral compression deformity by vertebral fracture assessment. This is confirmed by 6-point morphometry. Impression: 1. No evidence of vertebral compression deformity via vertebral fracture assessment. Kat Timmons P.A.-C., [facility], CCD/Colton Wisdom M.D., [facility], CCD Procedure Note Teddy Lawrence - 05/28/2010 Kat Timmons P.A.-C, dictating for Colton Wisdom M.D. Date: 05-26-10 Vertebral Fracture Assessment: Clinical Indications: This is a 64-year-old postmenopausal female withhistory of adult fracture. The patient has low bone density. Findings: 1. Vertebral fracture assessment was performed on Hologic equipment in thesupine position with a lateral image obtained for evaluation. 2. Confounding factors for this examination include lung markings, bowelgas. The scan is interpretable from T6-L4. 3. Using semi-quantitative analysis of Genant, there is no evidence ofvertebral compression deformity by vertebral fracture assessment. This isconfirmed by 6- point morphometry. Impression: 1. No evidence of vertebral compression deformity via vertebral fractureassessment. Kat Timmons P.A.-C., [facility], CCD/Colton Wisdom M.D., [facility], CCD us Maxime Araiza MD IMG DEXA ORDERABLES Final Result * MM DIG SCR TAVARES PANEL W/CAD (07/13/2008 2:05 PM EDT) Anatomical Region Laterality Modality Other 07/13/2008 2:05 PM EDT Narrative 07/15/2008 12:53 PM EDT Procedure-MM DIG SCR TAVARES PANEL W/CAD MM DIGITAL SCR BILAT PANEL Bilateral CC and MLO view(s) were taken. Prior study comparison- October 05, 2005, bilateral screening mammogram with CAD. The breast tissue is almost entirely fat. No significant changes when compared with prior studies. IMPRESSION- No radiographic evidence of malignancy ([id number]) RECOMMENDATION- Routine screening mammogram in 1 year. * The patient with a palpable abnormality, unexplained by breast imaging, should be managed on clinical basis by the attending physician. * Breast imaging has a false negative rate of 15%. * The patient was notified by mail of the results of this examination. The mammogram was reviewed by a Radiologist and CAD. Library Aide- GIBSON Cantu Physician- CAROLINA OATES MD Released Date Time- 07/15/08 1726 Procedure Note Carolina Oates III - 07/10/2009 Procedure-MM DIG SCR TAVARES PANEL W/CAD MM DIGITAL SCR BILAT PANEL Bilateral CC and MLO view(s) were taken. Prior study comparison- October 05, 2005, bilateral screening mammogram with CAD. The breast tissue is almost entirely fat. No significant changes when compared with prior studies. IMPRESSION- No radiographic evidence of malignancy ([id number]) RECOMMENDATION- Routine screening mammogram in 1 year. * The patient with a palpable abnormality, unexplained by breast imaging, should be managed on clinical basis by the attending physician. * Breast imaging has a false negative rate of 15%. * The patient was notified by mail of the results of this examination. The mammogram was reviewed by a Radiologist and CAD. Library Aide- GIBSON HERRING Reading Physician- CAROLINA OATES MD Released Date Time- 07/15/08 1726 us Maxime Araiza MD [facility] RAD HISTORICA L Final Result * EK AMBULATORY B/P PANEL (07/12/2008 2:32 PM EDT) Anatomical Region Laterality Modality Other 07/12/2008 2:32 PM EDT Narrative 07/15/2008 11:12 AM EDT AMBULATORY BLOOD PRESSURE MONITOR EXAM DATE- 07/12/08 TECHNICAL DATA- A total of 24 hours and 20 minutes were recorded with 56 readings. 89% were successful. The overall systolic blood pressure averaged 136 and ranged from 113-166. 43.8% of the systolic readings were greater than 140 during the wake period and 62.5% of the systolic readings were greater than 125 during the sleeping period. The diastolic blood pressure averaged 74 with a range between 57-99. 2.1% of the readings were above 90 during the wake period and 25% were above 75 during the sleep period. The heart rate ranged between 54-77 BPM. There were no correlations with patients diary with any of the abnormal blood pressures. IMPRESSION- Borderline abnormal ambulatory blood pressure monitor with lack of nocturnal drop in blood pressure. Clinical correlation is recommended. Library Aide- DMITRIY NOGUERA Reading Physician- JARED HOLLIDAY M.D. Released Date Time- 07/17/08 0909 Procedure Note Jared Holliday J - 07/10/2009 AMBULATORY BLOOD PRESSURE MONITOR EXAM DATE- 07/12/08 TECHNICAL DATA- A total of 24 hours and 20 minutes were recorded with 56 readings. 89% were successful. The overall systolic blood pressure averaged 136 and ranged from 113-166. 43.8% of the systolic readings were greater than 140 during the wake period and 62.5% of the systolic readings were greater than 125 during the sleeping period. The diastolic blood pressure averaged 74 with a range between 57-99. 2.1% of the readings were above 90 during the wake period and 25% were above 75 during the sleep period. The heart rate ranged between 54-77 BPM. There were no correlations with patients diary with any of the abnormal blood pressures. IMPRESSION- Borderline abnormal ambulatory blood pressure monitor with lack of nocturnal drop in blood pressure. Clinical correlation is recommended. Library Aide- DMITRIY NOGUERA Reading Physician- JARED HOLLIDAY M.D. Released Date Time- 07/17/08 0909 Maxime Araiza MD [facility] HISTORIC AL Final Result * DX BONE DENSITY SCAN CENTRAL (07/10/2008 11:35 AM EDT) Anatomical Region Laterality Modality Other 07/10/2008 11:3 5 AM EDT Narrative 07/11/2008 4:39 PM EDT BASE Study- Bone densitometry was performed on Hologic equipment. No comparisons available. CLINICAL INDICATIONS- Patient is a postmenopausal woman with a history of- adult fracture, calcium use. FINDINGS- Region BMD T- (g/cm2) Score Spine L1-4 0.902 -1.3 Hip Neck, Left 0.642 -1.9 Hip Neck, Right 0.624 -2.0 IMPRESSION- 1. BMD is in the low-bone density range. RECOMMENDATIONS- 1. Patient's bone density scan shows low bone mineral density. Additional interventions advised. Follow up DXA in 24 months or sooner if clinically indicated. USEFULNESS OF THE SPINE MEASUREMENT IS LIMITED IN PATIENTS OVER THE AGE OF 70 DUE TO DEGENERATIVE BONY SCLEROSIS Following the Surgeon General's recommendations additional interventions are to include but not limited to drug therapy, physical therapy and nutrition counseling. The World Health Organization defines normal bone mass for postmenopausal women as a T-Score at or above -1, osteopenia as a T- Score between -1 and -2.5, osteoporosis as a T-Score at or below -2.5 and severe osteoporosis at or below -2.5 with a fracture. A patient's risk for fracture doubles for each standard deviation decline in bone density. Library Aide- GIBSON Cantu Physician- CAROLINA OATES MD Released Date Time- 07/11/082006 Procedure Note Carolina Oates III - 07/10/2009 BASE Study- Bone densitometry was performed on Hologic equipment. No comparisons available. CLINICAL INDICATIONS- Patient is a postmenopausal woman with a history of- adult fracture, calcium use. FINDINGS- Region BMD T- (g/cm2) Score Spine L1-4 0.902 -1.3 Hip Neck, Left 0.642 -1.9 Hip Neck, Right 0.624 -2.0 IMPRESSION- 1. BMD is in the low-bone density range. RECOMMENDATIONS- 1. Patient's bone density scan shows low bone mineral density. Additional interventions advised. Follow up DXA in 24 months or sooner if clinically indicated. USEFULNESS OF THE SPINE MEASUREMENT IS LIMITED IN PATIENTS OVER THE AGE OF 70 DUE TO DEGENERATIVE BONY SCLEROSIS Following the Surgeon General's recommendations additional interventions are to include but not limited to drug therapy, physical therapy and nutrition counseling. The World Health Organization defines normal bone mass for postmenopausal women as a T-Score at or above -1, osteopenia as a T- Score between -1 and -2.5, osteoporosis as a T-Score at or below -2.5 and severe osteoporosis at or below -2.5 with a fracture. A patient's risk for fracture doubles for each standard deviation decline in bone density. Library Aide- GIBSON Cantu Physician- CAROLINA OATES MD Released Date Time- 07/11/082006 Maxime Araiza MD [facility] RAD HISTORICA L Final Result * MM MAMMO SCREEN W/CAD II PANEL (10/05/2005 12:30 PM EDT) Anatomical Region Laterality Modality Other 10/05/2005 12:3 0 PM EDT Narrative 10/06/2005 10:23 AM EDT Procedure-WW MAMMO SCREEN W/CAD II PANEL Reason for exam- screening. Screening Mammogram With CAD Bilateral CC and MLO view(s) were taken. Prior study comparison- January 17, 2004, bilateral screening mammogram. January 04, 2002, bilateral screening mammogram. There are scattered fibroglandular densities. No significant changes when compared with prior studies. IMPRESSION- No radiographic evidence of malignancy ([id number]) RECOMMENDATION- Routine screening mammogram in 1 year. * The patient with a palpable abnormality, unexplained by breast imaging, should be managed on clinical basis by the attending physician. * Breast imaging has a false negative rate of 15%. * The patient was notified by mail of the results of this examination. The mammogram was reviewed by a Radiologist and CAD. Library Aide- GIBSON Cantu Radiologist- PRASHANT FAUSTIN MD Released Date Time- 10/06/05 1111 Procedure Note Prashant Faustin - 07/09/2009 Procedure-WW MAMMO SCREEN W/CAD II PANEL Reason for exam- screening. Screening Mammogram With CAD Bilateral CC and MLO view(s) were taken. Prior study comparison- January 17, 2004, bilateral screening mammogram. January 04, 2002, bilateral screening mammogram. There are scattered fibroglandular densities. No significant changes when compared with prior studies. IMPRESSION- No radiographic evidence of malignancy ([id number]) RECOMMENDATION- Routine screening mammogram in 1 year. * The patient with a palpable abnormality, unexplained by breast imaging, should be managed on clinical basis by the attending physician. * Breast imaging has a false negative rate of 15%. * The patient was notified by mail of the results of this examination. The mammogram was reviewed by a Radiologist and CAD. Library Aide- GIBSON Cantu Radiologist- PRASHANT FAUSTIN MD Released Date Time- 10/06/05 1111 Roderick Huynh MD [facility] RAD HISTORICA L Final Result Visit Diagnoses Diagnosis Start Date Osteopenia Disorder of bone and cartilage, unspecified 05/26/2010 Stress fracture foot Stress fracture of other bone 05/26/2010 Osteoporosis Osteoporosis, unspecified 05/26/2010 Other screening mammogram 05/26/2010 Other screening mammogram 07/02/2011 Thoracic or lumbosacral neuritis or radiculitis, unspecified 09/24/2011 Right knee pain Pain in joint, lower leg 04/12/2012 Radiculopathy, lumbar region Thoracic or lumbosacral neuritis or radiculitis, unspecified 05/23/2012 Other screening mammogram 09/21/2012 Other screening mammogram 10/18/2013 Other screening mammogram 10/15/2014 Screening for other and unspecified cardiovascular conditions 12/12/2014 Visit for screening mammogram Other screening mammogram 10/16/2015 Ruptured ear drum, left 12/27/2015 Seasonal allergies Allergic rhinitis, cause unspecified 12/27/2015 Low back pain Lumbago 09/14/2016 Encounter for screening mammogram for malignant neoplasm of breast Other screening mammogram 10/15/2016 History of basal cell carcinoma Personal history of other malignant neoplasm of skin 02/28/2017 Nevus Benign neoplasm of skin, site unspecified 02/28/2017 SK (seborrheic keratosis) Other seborrheic keratosis 02/28/2017 Khalil angioma Nevus, non-neoplastic 02/28/2017 Other viral warts 02/28/2017 Disturbance of skin sensation 02/28/2017 Encounter for screening mammogram for malignant neoplasm of breast Other screening mammogram 01/31/2018 Uncontrolled hypertension Unspecified essential hypertension 04/20/2018 Chest pain, unspecified type 04/20/2018 SOB (shortness of breath) Shortness of breath 04/20/2018 Dizziness Dizziness and giddiness 04/20/2018 Bradycardia Other specified cardiac dysrhythmias 04/20/2018 Mixed hyperlipidemia 04/20/2018 Heart murmur Undiagnosed cardiac murmurs 04/20/2018 Hypertensive urgency Unspecified essential hypertension 04/24/2018 Lightheadedness Dizziness and giddiness 04/24/2018 Uncontrolled hypertension Unspecified essential hypertension 05/05/2018 SOB (shortness of breath) Shortness of breath 05/05/2018 Dizziness Dizziness and giddiness 05/05/2018 Heart murmur Undiagnosed cardiac murmurs 05/05/2018 Mixed hyperlipidemia 05/05/2018 Bradycardia Other specified cardiac dysrhythmias 05/05/2018 Refractive error Unspecified disorder of refraction and accommodation 05/08/2018 Keratitis sicca, bilateral Other forms of keratitis 05/08/2018 Cataract, nuclear sclerotic senile, bilateral 05/08/2018 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 05/08/2018 Optic neuropathy, left Other optic neuritis 05/08/2018 Uncontrolled hypertension Unspecified essential hypertension 05/09/2018 Chest pain, unspecified type 05/09/2018 SOB (shortness of breath) Shortness of breath 05/09/2018 Dizziness Dizziness and giddiness 05/09/2018 Bradycardia Other specified cardiac dysrhythmias 05/09/2018 Mixed hyperlipidemia 05/09/2018 Heart murmur Undiagnosed cardiac murmurs 05/09/2018 Nausea Nausea alone 05/29/2018 Optic neuropathy, left Other optic neuritis 06/02/2018 Keratitis sicca, bilateral Other forms of keratitis 06/15/2018 Cataract, nuclear sclerotic senile, bilateral 06/15/2018 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 06/15/2018 Optic neuropathy, left Other optic neuritis 06/15/2018 Hypertension, unspecified type 06/14/2018 Loose stools Abnormal feces 06/14/2018 Nausea Nausea alone 06/14/2018 Uncontrolled hypertension Unspecified essential hypertension 06/27/2018 SOB (shortness of breath) Shortness of breath 06/27/2018 Dizziness Dizziness and giddiness 06/27/2018 Chest pain, unspecified type 06/27/2018 Mixed hyperlipidemia 06/27/2018 Bradycardia Other specified cardiac dysrhythmias 06/27/2018 Labile hypertension Unspecified essential hypertension 06/27/2018 Tinnitus, bilateral Unspecified tinnitus 06/28/2018 Dizziness, nonspecific Dizziness and giddiness 06/28/2018 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 06/28/2018 Optic neuropathy, left Other optic neuritis 06/28/2018 Essential hypertension Unspecified essential hypertension 06/28/2018 Clicking tinnitus of both ears 06/28/2018 Sensorineural hearing loss (SNHL) of both ears 06/28/2018 Uncontrolled hypertension Unspecified essential hypertension 07/03/2018 SOB (shortness of breath) Shortness of breath 07/03/2018 Dizziness Dizziness and giddiness 07/03/2018 Chest pain, unspecified type 07/03/2018 Mixed hyperlipidemia 07/03/2018 Bradycardia Other specified cardiac dysrhythmias 07/03/2018 Labile hypertension Unspecified essential hypertension 07/03/2018 Essential hypertension Unspecified essential hypertension 08/03/2018 Acquired hypothyroidism Unspecified hypothyroidism 08/03/2018 Dyslipidemia Other and unspecified hyperlipidemia 08/03/2018 Uncontrolled hypertension Unspecified essential hypertension 08/03/2018 Urine frequency Urinary frequency 09/07/2018 Incomplete bladder emptying 09/07/2018 Chronic constipation Unspecified constipation 09/07/2018 Screening for condition Screening for unspecified condition 09/20/2018 Incomplete bladder emptying 10/05/2018 Urinary urgency Urgency of urination 10/05/2018 Chronic constipation Unspecified constipation 10/05/2018 Weak urine stream Slowing of urinary stream 10/05/2018 Keratitis sicca, bilateral Other forms of keratitis 10/23/2018 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 10/23/2018 Uncontrolled hypertension Unspecified essential hypertension 10/26/2018 Chest pain, unspecified type 10/26/2018 SOB (shortness of breath) Shortness of breath 10/26/2018 Dizziness Dizziness and giddiness 10/26/2018 Bradycardia Other specified cardiac dysrhythmias 10/26/2018 Mixed hyperlipidemia 10/26/2018 Heart murmur Undiagnosed cardiac murmurs 10/26/2018 Slow transit constipation 11/23/2018 Incomplete bladder emptying 11/23/2018 Slow transit constipation 11/23/2018 Cauda equina syndrome with neurogenic bladder (HCC) Cauda equina syndrome with neurogenic bladder 11/23/2018 Essential hypertension Unspecified essential hypertension 12/04/2018 Acquired hypothyroidism Unspecified hypothyroidism 12/04/2018 Acquired hypothyroidism Unspecified hypothyroidism 12/04/2018 Essential hypertension Unspecified essential hypertension 12/04/2018 Irritable bowel syndrome with diarrhea Irritable bowel syndrome 12/04/2018 Mixed hyperlipidemia 12/04/2018 Other hyperlipidemia 12/04/2018 Essential hypertension Unspecified essential hypertension 12/08/2018 Essential hypertension Unspecified essential hypertension 12/13/2018 Mixed hyperlipidemia 12/25/2018 Visit for screening mammogram Other screening mammogram 01/16/2019 Screening for osteoporosis Special screening for osteoporosis 01/16/2019 Post-menopausal Asymptomatic postmenopausal status (age-related) (natural) 01/16/2019 Chest pain, unspecified type 01/18/2019 SOB (shortness of breath) Shortness of breath 01/18/2019 Irritable bowel syndrome with constipation Irritable bowel syndrome 01/18/2019 History of colon polyps Personal history of colonic polyps 01/18/2019 Medicare annual wellness visit, subsequent Routine general medical examination at a health care facility 01/18/2019 Essential hypertension Unspecified essential hypertension 01/18/2019 Acquired hypothyroidism Unspecified hypothyroidism 01/18/2019 Other hyperlipidemia 01/18/2019 Strain of neck muscle, initial encounter 01/18/2019 Coronary artery disease involving [place] coronary artery of [place] heart without angina pectoris 01/25/2019 Mixed hyperlipidemia 01/25/2019 Heart murmur Undiagnosed cardiac murmurs 01/25/2019 Essential hypertension Unspecified essential hypertension 01/25/2019 Acquired hypothyroidism Unspecified hypothyroidism 01/25/2019 History of basal cell carcinoma (BCC) 02/02/2019 SK (seborrheic keratosis) Other seborrheic keratosis 02/02/2019 Nevus Benign neoplasm of skin, site unspecified 02/02/2019 Other viral warts 02/02/2019 Pain of skin Disturbance of skin sensation 02/02/2019 Disturbance of skin sensation 02/02/2019 UTI symptoms 02/24/2019 Encounter for screening mammogram for malignant neoplasm of breast Other screening mammogram 03/10/2019 Dysuria 03/14/2019 Mixed hyperlipidemia 03/22/2019 Incomplete bladder emptying 04/05/2019 Dysuria 04/05/2019 Other constipation 04/05/2019 Coronary artery disease involving [place] coronary artery of [place] heart without angina pectoris 04/12/2019 Heart murmur Undiagnosed cardiac murmurs 04/12/2019 Mixed hyperlipidemia 04/12/2019 Essential hypertension Unspecified essential hypertension 04/12/2019 Acquired hypothyroidism Unspecified hypothyroidism 04/12/2019 Incomplete bladder emptying 04/30/2019 Dysuria 04/30/2019 Acute UTI Urinary tract infection, site not specified 04/30/2019 Nausea Nausea alone 05/04/2019 Acute UTI Urinary tract infection, site not specified 05/04/2019 Microhematuria Microscopic hematuria 05/04/2019 Incomplete bladder emptying 05/04/2019 Incomplete bladder emptying 05/08/2019 Nausea Nausea alone 05/10/2019 Dry heaves Vomiting alone 05/10/2019 Abdominal fullness Other symptoms involving abdomen and pelvis 05/10/2019 Hx of colonic polyps Personal history of colonic polyps 05/10/2019 Irritable bowel syndrome with constipation Irritable bowel syndrome 05/10/2019 Special screening for malignant neoplasms, colon 05/10/2019 Dysuria 05/24/2019 Incomplete bladder emptying 05/24/2019 Urinary urgency Urgency of urination 05/24/2019 Irritable bowel syndrome with constipation Irritable bowel syndrome 05/24/2019 Personal history of colonic polyps 07/11/2019 Other specified diseases of intestine 07/11/2019 Acquired hypothyroidism Unspecified hypothyroidism 10/04/2019 Essential hypertension Unspecified essential hypertension 10/04/2019 Other hyperlipidemia 10/04/2019 Incomplete bladder emptying 10/04/2019 Stranguria Dysuria 10/30/2019 Incomplete bladder emptying 10/30/2019 Frequency of micturition Urinary frequency 10/30/2019 Nocturia 10/30/2019 Stenosis of carotid artery, unspecified laterality 11/02/2019 Carotid atherosclerosis, unspecified laterality 11/02/2019 Other disorders of arteries, arterioles and capillaries in diseases classified elsewhere (HCC) 11/02/2019 Nonobstructive atherosclerosis of coronary artery 11/02/2019 Mixed hyperlipidemia 11/02/2019 Essential hypertension Unspecified essential hypertension 11/02/2019 Dyslipidemia Other and unspecified hyperlipidemia 11/02/2019 Essential hypertension Unspecified essential hypertension 12/05/2019 Screening for cardiovascular condition Screening for other and unspecified cardiovascular conditions 12/19/2019 Screening for cardiovascular condition Screening for other and unspecified cardiovascular conditions 12/19/2019 Acute pain of both shoulders 01/08/2020 Acute pain of both shoulders 01/08/2020 Post-menopausal Asymptomatic postmenopausal status (age-related) (natural) 01/18/2020 Subcutaneous mass of supraclavicular area Localized superficial swelling, mass, or lump 01/31/2020 Subcutaneous mass of supraclavicular area Localized superficial swelling, mass, or lump 01/31/2020 Viral URI with cough Acute upper respiratory infections of unspecified site 02/19/2020 Viral URI with cough Acute upper respiratory infections of unspecified site 02/21/2020 Upper respiratory tract infection, unspecified type 02/21/2020 Essential hypertension Unspecified essential hypertension 04/15/2020 Incomplete bladder emptying 04/17/2020 Stranguria Dysuria 04/17/2020 Slow transit constipation 04/17/2020 Cauda equina syndrome with neurogenic bladder (HCC) Cauda equina syndrome with neurogenic bladder 04/17/2020 Incomplete bladder emptying 04/22/2020 Essential hypertension Unspecified essential hypertension 06/05/2020 Nuclear sclerotic cataract of left eye Senile nuclear sclerosis 07/10/2020 Narrow angle glaucoma of left eye 07/10/2020 Anatomical narrow angle, bilateral 07/10/2020 Pre-op testing Preoperative examination, unspecified 07/26/2020 Encounter for laboratory testing for COVID-19 virus 07/26/2020 Nuclear sclerotic cataract of left eye Senile nuclear sclerosis 07/30/2020 Nuclear sclerotic cataract of left eye Senile nuclear sclerosis 07/30/2020 Nuclear sclerotic cataract of left eye Senile nuclear sclerosis 07/31/2020 Nuclear sclerotic cataract of right eye Senile nuclear sclerosis 07/31/2020 Nuclear sclerotic cataract of right eye Senile nuclear sclerosis 08/07/2020 Uncontrolled hypertension Unspecified essential hypertension 08/19/2020 Dyslipidemia Other and unspecified hyperlipidemia 08/19/2020 Coronary artery disease involving [place] coronary artery of [place] heart without angina pectoris 08/19/2020 Heart murmur Undiagnosed cardiac murmurs 08/19/2020 Essential hypertension Unspecified essential hypertension 08/22/2020 Other hyperlipidemia 08/22/2020 Acquired hypothyroidism Unspecified hypothyroidism 08/22/2020 Peripheral neuropathy, idiopathic Unspecified hereditary and idiopathic peripheral neuropathy 08/22/2020 Peripheral neuropathy, idiopathic Unspecified hereditary and idiopathic peripheral neuropathy 08/22/2020 Pre-op testing Preoperative examination, unspecified 08/23/2020 Encounter for laboratory testing for COVID-19 virus 08/23/2020 Nuclear sclerotic cataract of right eye Senile nuclear sclerosis 08/27/2020 Nuclear sclerotic cataract of right eye Senile nuclear sclerosis 08/27/2020 Nuclear sclerotic cataract of right eye Senile nuclear sclerosis 08/28/2020 Incomplete bladder emptying 09/02/2020 Arthritis of left ankle Unspecified arthropathy, ankle and foot 09/03/2020 Nuclear sclerotic cataract of right eye Senile nuclear sclerosis 09/04/2020 Peripheral neuropathy, idiopathic Unspecified hereditary and idiopathic peripheral neuropathy 09/19/2020 Encounter for therapeutic drug monitoring 09/19/2020 Keratitis sicca, bilateral Other forms of keratitis 09/25/2020 Nuclear sclerotic cataract of right eye Senile nuclear sclerosis 09/25/2020 Refractive error Unspecified disorder of refraction and accommodation 09/25/2020 Incomplete bladder emptying 10/16/2020 Stranguria Dysuria 10/16/2020 Slow transit constipation 10/16/2020 Cauda equina syndrome with neurogenic bladder (HCC) Cauda equina syndrome with neurogenic bladder 10/16/2020 Microhematuria Microscopic hematuria 10/16/2020 Nocturia 10/16/2020 Frequency of micturition Urinary frequency 10/16/2020 Peripheral neuropathy, idiopathic Unspecified hereditary and idiopathic peripheral neuropathy 10/24/2020 Peripheral neuropathy, idiopathic Unspecified hereditary and idiopathic peripheral neuropathy 10/25/2020 Cystitis Cystitis, unspecified 11/13/2020 Urinary frequency 11/13/2020 UTI symptoms 11/13/2020 Diarrhea, unspecified type 11/17/2020 Calculus of gallbladder without cholecystitis without obstruction Calculus of gallbladder without mention of cholecystitis or obstruction 11/18/2020 Nausea vomiting and diarrhea Nausea with vomiting 11/18/2020 Calculus of gallbladder without cholecystitis without obstruction Calculus of gallbladder without mention of cholecystitis or obstruction 11/21/2020 Constipation, unspecified constipation type 11/23/2020 Calculus of gallbladder without cholecystitis without obstruction Calculus of gallbladder without mention of cholecystitis or obstruction 11/26/2020 Calculus of gallbladder without cholecystitis without obstruction Calculus of gallbladder without mention of cholecystitis or obstruction 11/26/2020 Irritable bowel syndrome with constipation Irritable bowel syndrome 11/26/2020 Pre-op testing Preoperative examination, unspecified 12/04/2020 Encounter for laboratory testing for COVID-19 virus 12/04/2020 Calculus of gallbladder without cholecystitis without obstruction Calculus of gallbladder without mention of cholecystitis or obstruction 12/08/2020 Calculus of gallbladder without cholecystitis without obstruction Calculus of gallbladder without mention of cholecystitis or obstruction 12/08/2020 Non-intractable vomiting with nausea, unspecified vomiting type 12/11/2020 S/P laparoscopic cholecystectomy Other postprocedural status 12/17/2020 Anxiety Anxiety state, unspecified 12/17/2020 Encounter for counseling for care management of patient with chronic conditions and complex health needs using nurse-based model 12/18/2020 Insomnia, persistent Persistent disorder of initiating or maintaining sleep 12/18/2020 Irritable bowel syndrome with constipation Irritable bowel syndrome 12/18/2020 Uncontrolled hypertension Unspecified essential hypertension 01/19/2021 Dyslipidemia Other and unspecified hyperlipidemia 01/19/2021 Coronary artery disease involving [place] coronary artery of [place] heart without angina pectoris 01/19/2021 Nonobstructive atherosclerosis of coronary artery 01/19/2021 Irritable bowel syndrome with constipation Irritable bowel syndrome 02/02/2021 Gastroesophageal reflux disease, unspecified whether esophagitis present 02/02/2021 Chronic cholecystitis 02/02/2021 Coronary artery disease involving [place] coronary artery of [place] heart without angina pectoris 03/05/2021 Heart murmur Undiagnosed cardiac murmurs 03/05/2021 Essential hypertension Unspecified essential hypertension 03/05/2021 Keratitis sicca, bilateral Other forms of keratitis 03/31/2021 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, unspecified lagophthalmos type 03/31/2021 Pseudophakia of both eyes Lens replaced by other means 03/31/2021 Optic neuropathy, left Other optic neuritis 03/31/2021 Muscle strain of chest wall, initial encounter 04/10/2021 Insomnia, persistent Persistent disorder of initiating or maintaining sleep 04/10/2021 Upper respiratory tract infection, unspecified type 04/16/2021 Insomnia, persistent Persistent disorder of initiating or maintaining sleep 04/16/2021 Incomplete bladder emptying 04/16/2021 Dysuria 04/16/2021 UTI symptoms 04/16/2021 Acute exacerbation of chronic low back pain 04/30/2021 Acute bilateral low back pain without sciatica 05/04/2021 DDD (degenerative disc disease), lumbar Degeneration of lumbar or lumbosacral intervertebral disc 05/04/2021 Acute bilateral low back pain without sciatica 05/20/2021 Acute bilateral low back pain without sciatica 06/01/2021 DDD (degenerative disc disease), lumbar Degeneration of lumbar or lumbosacral intervertebral disc 06/02/2021 Spinal stenosis of lumbar region, unspecified whether neurogenic claudication present 06/05/2021 Spinal stenosis of lumbar region, unspecified whether neurogenic claudication present 06/17/2021 Acute bilateral low back pain without sciatica 07/13/2021 Acute bilateral low back pain without sciatica 07/27/2021 Sacroiliitis Sacroiliitis, not elsewhere classified 07/27/2021 Spondylosis of lumbosacral region without myelopathy or radiculopathy Lumbosacral spondylosis without myelopathy 07/27/2021 DDD (degenerative disc disease), lumbar Degeneration of lumbar or lumbosacral intervertebral disc 07/27/2021 Coronary artery disease involving [place] coronary artery of [place] heart without angina pectoris 07/30/2021 Essential hypertension Unspecified essential hypertension 07/30/2021 Nonobstructive atherosclerosis of coronary artery 07/30/2021 Dyslipidemia Other and unspecified hyperlipidemia 07/30/2021 Feeling of incomplete bladder emptying Incomplete bladder emptying 08/18/2021 Incomplete bladder emptying 08/18/2021 Cauda equina syndrome with neurogenic bladder (HCC) Cauda equina syndrome with neurogenic bladder 08/18/2021 Slow transit constipation 08/18/2021 Stranguria Dysuria 08/18/2021 Acute bilateral low back pain without sciatica 09/23/2021 Keratitis sicca, bilateral Other forms of keratitis 10/08/2021 Optic neuropathy, left Other optic neuritis 10/08/2021 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 10/08/2021 Nuclear sclerotic cataract of right eye Senile nuclear sclerosis 10/08/2021 Fecal impaction in rectum (HCC) Fecal impaction 10/28/2021 External hemorrhoids without complication External hemorrhoids without mention of complication 10/28/2021 Acute on chronic urinary retention 10/29/2021 Hemorrhoids, unspecified hemorrhoid type 10/29/2021 Feeling of incomplete bladder emptying Incomplete bladder emptying 10/30/2021 Urinary retention Retention of urine, unspecified 10/30/2021 Slow transit constipation 10/30/2021 Slow transit constipation 11/03/2021 Hemorrhoids, unspecified hemorrhoid type 11/03/2021 Urinary retention Retention of urine, unspecified 11/03/2021 Incomplete bladder emptying 11/03/2021 Gastroesophageal reflux disease, unspecified whether esophagitis present 11/04/2021 Chronic pain of right thumb 11/17/2021 Myofascial pain Mylagia and myositis, unspecified 11/20/2021 Acute bilateral low back pain without sciatica 11/24/2021 Myofascial pain Mylagia and myositis, unspecified 11/24/2021 Sacroiliitis Sacroiliitis, not elsewhere classified 11/24/2021 Incomplete bladder emptying 12/15/2021 Urinary retention Retention of urine, unspecified 12/15/2021 Cauda equina syndrome with neurogenic bladder (HCC) Cauda equina syndrome with neurogenic bladder 12/15/2021 Slow transit constipation 12/15/2021 Sacroiliitis Sacroiliitis, not elsewhere classified 12/25/2021 Mixed hyperlipidemia 12/28/2021 Nonobstructive atherosclerosis of coronary artery 12/31/2021 Essential hypertension Unspecified essential hypertension 12/31/2021 Heart murmur Undiagnosed cardiac murmurs 12/31/2021 Dyslipidemia Other and unspecified hyperlipidemia 12/31/2021 Irritable bowel syndrome with constipation Irritable bowel syndrome 01/01/2022 Gastroesophageal reflux disease without esophagitis Esophageal reflux 01/01/2022 Cauda equina syndrome with neurogenic bladder (HCC) Cauda equina syndrome with neurogenic bladder 01/01/2022 Nausea Nausea alone 01/01/2022 External hemorrhoids External hemorrhoids without mention of complication 01/01/2022 Acute bilateral low back pain without sciatica 01/19/2022 Sacroiliitis Sacroiliitis, not elsewhere classified 01/19/2022 Myofascial pain Mylagia and myositis, unspecified 01/19/2022 Pain in both lower extremities 01/19/2022 Cough, unspecified type 01/26/2022 Cough, unspecified type 01/26/2022 Bronchitis Bronchitis, not specified as acute or chronic 01/26/2022 Pain in both lower extremities 02/18/2022 Lumbosacral radiculopathy Thoracic or lumbosacral neuritis or radiculitis, unspecified 02/18/2022 Carpal tunnel syndrome of left wrist Carpal tunnel syndrome 02/18/2022 Myofascial pain Mylagia and myositis, unspecified 02/23/2022 Lumbar radiculopathy Thoracic or lumbosacral neuritis or radiculitis, unspecified 02/23/2022 Neuropathic pain Neuralgia, neuritis, and radiculitis, unspecified 02/23/2022 Gastroesophageal reflux disease without esophagitis Esophageal reflux 03/17/2022 Myofascial pain Mylagia and myositis, unspecified 04/20/2022 Lumbar radiculopathy Thoracic or lumbosacral neuritis or radiculitis, unspecified 04/20/2022 Neuropathic pain Neuralgia, neuritis, and radiculitis, unspecified 04/20/2022 Influenza A Influenza with other respiratory manifestations 04/28/2022 Hematuria, unspecified type 04/28/2022 Abdominal pain, unspecified abdominal location 04/30/2022 Influenza A Influenza with other respiratory manifestations 04/30/2022 Menopause Symptomatic menopausal or female climacteric states 04/30/2022 Essential hypertension Unspecified essential hypertension 04/30/2022 Microhematuria Microscopic hematuria 05/05/2022 Cauda equina syndrome with neurogenic bladder (HCC) Cauda equina syndrome with neurogenic bladder 05/06/2022 Abdominal pain, unspecified abdominal location 05/12/2022 Optic neuropathy, left Other optic neuritis 05/20/2022 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 05/20/2022 Lumbar radiculopathy Thoracic or lumbosacral neuritis or radiculitis, unspecified 06/15/2022 Neuropathic pain Neuralgia, neuritis, and radiculitis, unspecified 06/15/2022 Myofascial pain Mylagia and myositis, unspecified 06/15/2022 Macronychia Other specified disease of nail 06/19/2022 Nail disease Unspecified disease of nail 06/19/2022 Peripheral neuropathy, idiopathic Unspecified hereditary and idiopathic peripheral neuropathy 06/22/2022 Nail disease Unspecified disease of nail 06/22/2022 Macronychia Other specified disease of nail 06/22/2022 Encounter for laboratory testing for COVID-19 virus 06/22/2022 Essential hypertension Unspecified essential hypertension 06/22/2022 Other hyperlipidemia 06/22/2022 Acquired hypothyroidism Unspecified hypothyroidism 06/22/2022 Pre-op testing Preoperative examination, unspecified 06/22/2022 Lumbar pain Lumbago 07/07/2022 Spinal stenosis of lumbar region without neurogenic claudication Spinal stenosis, lumbar region, without neurogenic claudication 07/07/2022 DDD (degenerative disc disease), lumbar Degeneration of lumbar or lumbosacral intervertebral disc 07/07/2022 Lumbar pain Lumbago 07/07/2022 Spinal stenosis of lumbar region without neurogenic claudication Spinal stenosis, lumbar region, without neurogenic claudication 07/14/2022 Cauda equina syndrome with neurogenic bladder (HCC) Cauda equina syndrome with neurogenic bladder 07/14/2022 Irritable bowel syndrome with constipation Irritable bowel syndrome 07/14/2022 Gastroesophageal reflux disease without esophagitis Esophageal reflux 07/14/2022 Dysuria 07/18/2022 Suprapubic pressure Abdominal pain, other specified site 07/18/2022 Acute gastritis without hemorrhage, unspecified gastritis type 07/21/2022 Group beta Strep positive 07/26/2022 Urinary retention Retention of urine, unspecified 07/26/2022 Cauda equina syndrome with neurogenic bladder (HCC) Cauda equina syndrome with neurogenic bladder 07/26/2022 Primary osteoarthritis of right knee Primary localized osteoarthrosis, lower leg 07/27/2022 Essential hypertension Unspecified essential hypertension 07/28/2022 Peripheral neuropathy, idiopathic Unspecified hereditary and idiopathic peripheral neuropathy 07/28/2022 Restless legs syndrome (RLS) 07/28/2022 Gastroesophageal reflux disease with esophagitis without hemorrhage 08/04/2022 Lumbar radiculopathy Thoracic or lumbosacral neuritis or radiculitis, unspecified 08/12/2022 Neuropathic pain Neuralgia, neuritis, and radiculitis, unspecified 08/12/2022 Myofascial pain Mylagia and myositis, unspecified 08/12/2022 Primary osteoarthritis of right knee Primary localized osteoarthrosis, lower leg 08/12/2022 Sacroiliitis Sacroiliitis, not elsewhere classified 08/12/2022 Pain in both lower extremities 08/12/2022 Chronic pain of right thumb 08/12/2022 Spondylosis of lumbosacral region without myelopathy or radiculopathy Lumbosacral spondylosis without myelopathy 08/12/2022 DDD (degenerative disc disease), lumbar Degeneration of lumbar or lumbosacral intervertebral disc 08/12/2022 Gastroesophageal reflux disease with esophagitis without hemorrhage 08/19/2022 Nonobstructive atherosclerosis of coronary artery 08/27/2022 Essential hypertension Unspecified essential hypertension 08/27/2022 Heart murmur Undiagnosed cardiac murmurs 08/27/2022 Dyslipidemia Other and unspecified hyperlipidemia 08/27/2022 Uncontrolled hypertension Unspecified essential hypertension 08/27/2022 Cervical pain Cervicalgia 09/16/2022 Spinal stenosis of lumbar region without neurogenic claudication Spinal stenosis, lumbar region, without neurogenic claudication 09/16/2022 Cervical pain Cervicalgia 09/16/2022 Bilateral leg pain Pain in limb 09/16/2022 DDD (degenerative disc disease), lumbar Degeneration of lumbar or lumbosacral intervertebral disc 09/16/2022 Trochanteric bursitis of right hip Enthesopathy of hip region 09/16/2022 Spinal stenosis of lumbar region without neurogenic claudication Spinal stenosis, lumbar region, without neurogenic claudication 10/14/2022 DDD (degenerative disc disease), lumbar Degeneration of lumbar or lumbosacral intervertebral disc 10/14/2022 Lumbar pain Lumbago 10/14/2022 Hospital discharge follow-up Other follow-up examination 10/18/2022 Essential hypertension Unspecified essential hypertension 10/22/2022 Peripheral neuropathy, idiopathic Unspecified hereditary and idiopathic peripheral neuropathy 10/22/2022 Restless legs syndrome (RLS) 10/22/2022 Keratitis sicca, bilateral Other forms of keratitis 02/03/2023 Pseudophakia Lens replaced by other means 02/03/2023 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 02/03/2023 Optic neuropathy, left Other optic neuritis 02/03/2023 Optic neuropathy, left Other optic neuritis 08/18/2023 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 08/18/2023 Keratitis sicca, bilateral Other forms of keratitis 09/13/2023 Pseudophakia Lens replaced by other means 08/16/2024 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 Author Blood Pressure < 140/90 Blood Pressure 192/110(10/14 2:39 PM EDT) No Yara Anders CCMA Maintain a healthy diet, exercise regularly and maintain an ideal body weight General On track( 1:52 PM EDT) Yara Huddleston CCMA Take rest breaks to enable body time to recover from recent surgery General On track( 1:53 PM EDT) No Page Chatterjee, RN Care Teams Assignment Editor Relationship Specialty Start Date End Date Na Ang MD [address] [id number] Consulting Physician Ophthalmology 07/10/20
--- OUTSIDE RECORDS SUMMARY | 2024-11-07 09:26 | XMS_ITS | Clinical Summary ---
Author Organization [facility] Address [address] [place] [address] Care Team Providers Care Humid System Operator Name Role Phone Elvira Velarde MD Primary Care Provider Jossue lable Allergies Active Allergy Reactions Criticality Noted Date Comments Amlodipine Nausea Only 04/21/2018 Cipro Xr 02/18/2011 Codeine 02/18/2011 Hydralazine Other (See Comments) 06/16/2018 Seizure activity Lisinopril Other (See Comments) Medium 10/04/2013 Cough Morphine Other (See Comments) 04/21/2018 Convulsion Naproxen Nausea And Vomiting Medium 10/04/2013 Also made her feel weak Sulfa Antibiotics 02/18/2011 Medications hyoscyamine (ANASPAZ;LEVSIN) 0.125 MG tablet Take 0.125 mg by mouth every 4 hours as needed for Cramping. Takes 1-2 Tabs PRN for IBS Active estradiol (ESTRACE) 0.1 MG/GM vaginal cream Place 2 g vaginally 0 Active fluticasone (FLONASE) 50 MCG/ACT nasal spray 5 Active CycloSPORINE (RESTASIS OP) Apply to eye Act jennifer olmesartan (BENICAR) 20 MG tablet Take 20 mg by mouth daily Active nebivolol (BYSTOLIC) 10 MG tablet Take 5 mg by mouth daily Active Cholecalciferol (VITAMIN D3) 5000 units TABS Take by mouth Activ e levothyroxine (SYNTHROID) 75 MCG tablet TAKE 1 TABLET EVERY DAY 90 tablet 2 8 Active hydrochlorothiazid e (MICROZIDE) 12.5 MG capsule Take 1 capsule by mouth daily 8 Active [place]-3 Fatty Acids (FISH OIL [place]ME[place]-3 PO) Take 1 capsule by mouth daily Active hydrOXYzine (ATARAX) 10 MG tablet Take 25 mg by mouth nightly Active ondansetron (ZOFRAN) 4 MG tabletIndications: Nausea and vomiting, intractability of vomiting not specified, unspecified vomiting type Take 1 tablet by mouth every 12 hours as needed for Nausea or Vomiting 60 tablet 1 9 Active famotidine (PEPCID) 10 MG tablet Take 10 mg by mouth 2 times daily Active colesevelam (WELCHOL) 625 MG tabletIndications: Bile acid malabsorption syndrome Take 2 tablets by mouth 3 times daily Take 1-2, 1-3 times daily for diarrhea Alt RX:questran 4q qid if not covered 240 tablet 1 9 Active fenofibrate 160 MG tablet TAKE 1 TABLET EVERY DAY 90 tablet 9 Active Active Problems Problem Noted Date Diagnosed Date Vitamin D deficiency 06/07/2013 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 Hyperlipidemia 02/18/2011 Hypothyroid 02/18/2011 HTN (hypertension) 02/18/2011 Nausea and vomiting Social History Tobacco Use Types Packs/Day Years Used Date Smoking Tobacco: Never Smokeless Tobacco: Never Alcohol Use Standard Drinks/Week Comments No 0 (1 standard drink = 0.6 oz pur e alcohol) Comments No Sex and Gender Information Value Date Recorded Sex Assigned at Not on file Legal Sex Female 11:42 PM EST Gender Identity Not on file Sexual Orientation Not on file Last Filed Vital Signs Vital Sign Reading Time Taken Comments Blood Pressure 146/70 07/05/2018 1:05 PM EST Pulse 61 06/22/2018 10:28 PM EST Temperature 37.2 C (98.9 F) 06/22/2018 6:15 PM EST Respiratory Rate 16 06/22/2018 10:28 PM EST Oxygen Saturation 96% 06/22/2018 10:28 PM EST Inhaled Oxygen Concentration - - Weight 73 kg (161 lb) 07/05/2018 1:05 PM EST Height 165.1 cm (5' 5 ) 07/05/2018 1:05 PM EST Body Mass Index 26.79 07/05/2018 1:05 PM EST Plan of Treatment Health Maintenance Due Date Last Done Comments Depression Screen 1957 Shingles vaccine (1 of 2) 1994 Respiratory Syncytial Virus (RSV) or age 60 yrs+ (1 - 1-dose 75+ series) 10/12/2019 DTaP/Tdap/Td vaccine (2 - Td or Tdap) 06/07/2023 06/07/2013 COVID-19 Vaccine (2 - 2023- season) 2024 11/29/2020 Flu vaccine (#1) 11/30/2024 02/16/2022, , 01/18/2019, Additional history exists A1C test (Diabetic or Prediabetic) Discontinued 08/08/2014, 10/04/2013, 07/28/2012 Lipids Discontinued 08/30/2017, 06/2015, 07/17/2015, Additional history exists Pneumococcal 50+ years Vaccine Completed 01/18/2019, 09/30/2009 DEXA (modify frequency per FRAX score) Completed 01/18/2020, 10/07/2017 Hepatitis A vaccine Aged Out No longe r eligible based on patient's age to complete this topic Hepatitis B vaccine Aged Out No longe r eligible based on patient's age to complete this topic Hib vaccine Aged Out No longer eligi ble based on patient's age to complete this topic Meningococcal (ACWY) vaccine Aged Out No longer eligible based on patient's age to complete this topic Meningococcal B vaccine Aged Out No l onger eligible based on patient's age to complete this topic Polio vaccine Aged Out No longer elig ible based on patient's age to complete this topic Procedures Procedure Name Priority Date/Time Associated Diagnosis Comments DEXA BONE DENSITY AXIAL SKELETON Routine 01/18/2020 12:51 PM EDT LIPID PANEL Routine 08/30/2017 10:37 AM EDT HEMOGLOBIN A1C Routine 08/08/2014 11:10 AM EDT from Last 3 Months or Most Recently Relevant to Health Maintenance Results * DEXA BONE DENSITY AXIAL SKELETON (01/18/2020 12:51 PM EDT) Anatomical Region Laterality Modality Head, C-spine, T-spine, L-spine, Chest Other 01/18/2020 12:5 1 PM EDT Narrative 01/18/2020 4:02 PM EDT Indication: The patient is a female age 65 or older who requires a bone density assessment. Study was performed on [place]. Bone Density: Region BMD T-score Z-score [...] 0.805 -1.1 4.3%* 07/10/2008 62 0.772 -1.4 /3 Forearm(Left) 01/18/2020 74 0.650 -0.7 -1.5% 05/26/2010 [...] on 01/18/2020 1:11:00 PM. Janet Vogt MD IMG DEXA ORDERABLES Fin al Result * Lipid Panel (08/30/2017 10:37 AM EDT) Cholesterol, Total 162 100 - 199 mg/dL 08/31/2017 2:36 AM EDT [facility] Triglycerides 94 0 - 149 mg/dL 08/31/2017 2:36 AM EDT [facility] HDL 54 >39 mg/dL 08/31/2017 2:39 AM EDT [facility] VLDL Cholesterol Calculated 19 5 - 40 mg/dL 08/31/2017 2:36 AM EDT [facility] LDL Calculated 89 0 - 99 mg/dL 08/31/2017 2:39 AM EDT [facility] Comment CANCELED 08/31/2017 2:39 AM EDT [facility] Comment:Result canceled by t he ancillary 08/30/2017 10:3 7 AM EDT 08/30/2017 Sid Olmedo MD CHEMISTRY ORDERABLES Final R esult [facility] * (ABNORMAL) Hemoglobin A1C (08/08/2014 11:10 AM EDT) Hemoglobin A1C 6.0(H) 4.8 - 5.6 % 08/09/2014 5:46 AM EDT [facility] Comment: .Increased risk for diabetes: 5.7 - 6.4Diabetes: >6.4Glycemic control for adults with diabetes: <7.0 08/08/2014 11:1 0 AM EDT 08/08/2014 10:50 PM EDT Thompson Hager MD CHEMISTRY ORDERABLES Edited Result - Final [facility] from Last 3 Months or Most Recently Relevant to Health Maintenance Insurance Care Teams Humid System Operator Relationship Specialty Start Date End Date Elvira Velarde MD PCP - General Family Medicine 09/01/16
--- OUTSIDE RECORDS SUMMARY | 2024-11-07 09:26 | XMS_ITS | Data Portability ---
Author Organization [facility] - [facility] - [facility] & [place], [facility] ADMIN Address [address] [place] [id number] Care Team Providers Care Accounting Office Manager Name Role Phone MYRANDA RANDHAWA Referring Provider Assessment No assessment recorded. Plan of Treatment Reminders Order Date Submit Date Provider Last Modified By Organization Details Last Modified Time Details Appointments None record ed. Lab None record ed. Referral None record ed. Procedures None record ed. Surgeries None record ed. Imaging None record ed. Medication Orders None record ed. Patient TargetsNo targets recorded. Patient InstructionsNo instructions recorded. Reason for Referral None Reported. Results Created Date Observation Date Name Description Value Unit Range Abnormal Flag Note LastModifiedBy Organization Detail LastModifiedTime 08/30/1908/29/2024 audio gram No observ ation record ed. [email or web address] Not Available 2024 15:05:39 Result Notes None recorded. Problems Name Problem SNOMED Code Status Onset Date Resolution Date Notes Provider Name and Address Organization Details Recorded Time Acute bronchitis 78510962 Active 2022 Marimarkate Lowe null, [place] - [facility] - [facility] & [place] 5 14:59:55 Irritable bowel syndrome 69122263 Active 2015 Marimar Chrissy null, [place] - [facility] - [place] & [place] 5 14:59:55 Nocturia 341116569 Active 2023 Marimar Chrissy null, [place] - [facility] - [facility] & [place] 5 14:59:55 Osteopenia 620110701 Active 2015 Marimar Chrissy null, [place] - [facility] - [facility] & [place] 5 14:59:55 Vitamin D deficiency 31375473 Active 2016 Marimar Chrissy null, [place] - [facility] - [facility] & [place] 5 14:59:55 Hypothyroidis m 62802529 Active 2016 Marimar Chrissy null, [place] - [facility] - [facility] & [place] 5 14:59:55 History of polyp of colon 628782445 Active 2017 Marimar Chrissy null, [place] - [facility] - [facility] & [place] 5 14:59:55 Hyperlipidemi a 80060549 Active 2016 Marimar Chrissy null, [place] - [facility] - [facility] & [place] 5 14:59:55 Essential hypertension 63589710 Active 2016 Marimar Chrissy null[place] [facility] - [facility] & [place] 5 14:59:55 Acid reflux 816545730 Active 2022 Marimarkate Marroquinence null, [place] - [facility] - [facility] & [place] 5 14:59:55 Prediabetes 406404739 Active 2016 Marimarkate Marroquinence null, [place] - [facility] - [facility] & [place] 5 14:59:55 History of tonsillectomy 237745277 Active 2024 Marimar Chrissy null, [place] - [facility] - [facility] & [place] 5 13:36:44 Sensorineural hearing loss 27963827 Active 2024 ANA RIVERA, AUD [address] [facility], [place], [id number] , [place] - [facility] - [place] & [place] 5 15:02:08 Problem Notes None recorded. Procedures Surgical History Date Name Laterality Status Provider Name and Address Organization Details Recorded Time tonsillectomy completed Marimar Lowe [place] - [facility] - [facility] & [place] 08/29/2024 13:36:56 hysterectomy completed Marimar Lowe [place] - [facility] - [place] & [place] 08/29/2024 13:37:21 Imaging Results None recorded. Procedure Notes None recorded. Medical Equipment None Reported. Allergies Allergen ID Allergen Name Allergen Category Reaction Reaction Severity Criticality Documentation Date Start Date Code Code System Note Provider Name and Address Organization Details Recorded Time 685515 Substance with sulfonami de structure and antibacte rial mechanism of action (substanc e) medicatio n Not available Not available Not available 08/20/20242008 47430 8003 SNOMED Marimar Chrissy null, [place] - [facility] & [place] 5 14:59:44 689391 lisinopri l medicatio n cough Not available Not available 08/20/20242010 57726 RxNorm Marimar Chrissy null, [place] - [facility] & [place] 14:59:44 523629 Cipro medicatio n hives Not available Not available 08/20/20242010 28670 3 RxNorm Marimar Chrissy null, [place] - [facility] & [place] 5 14:59:44 850580 morphine medicatio n myalgias (muscle pain) Not available Not available 08/20/2024 7052 RxNorm Marimar Chrissy null, [place] - [facility] & [place] 5 14:59:44 809040 Naprosyn medicatio n Not available Not available Not available 08/20/202420291 2 RxNorm Marimar Chrissy null, [place] - [facility] - [place] & [place] 5 14:59:44 019213 prednison e medicatio n Not available Not available Not available 08/20/2024 8640 RxNorm Marimar Chrissy null, [place] [facility] - [place] & [place] 5 14:59:44 320740 amlodipin e medicatio n nausea Not available Not available 08/20/2024 65122 RxNorm Marimar Chrissy null, [place] - [facility] - [place] & [place] 5 14:59:44 766517 Actonel medicatio n Not available Not available Not available 08/20/20242011 21088 3 RxNorm Marimar Chrissy null, [facility] & [place] 5 14:59:44 [id number] codeine sulfate medicatio n Not available Not available Not available 08/20/20242008 22379 RxNorm [facility] & [place] 5 14:59:44 685294 Repatha medicatio n swelling Not available Not available 08/20/2024 13280 96 RxNorm Marimar mason, [facility] & [place] 5 14:59:44 Medications Name Sig Start Date Stop Date Status Note LastModified by Organization Details LastModified Time nifedipine ER 30 mg tablet,exte nded release 24 hr 1 tablet qd 11/13 completed Not Available Not Available Not Available cyclobenzap rine 10 mg tablet Take 1 tablet 3 times a day by oral route as needed. 03/23 completed Not Available Not Available Not Available amoxicillin 500 mg capsule take 1 capsule (500 mg) by oral route 2 times per day for 10 days 07/27 completed Not Available Not Available Not Available methocarbam ol 500 mg tablet take 2 tablets (1,000 mg) by oral route 4 times per day 06/29 completed Not Available Not Available Not Available neomycin-po lymyxin-hyd rocort 3.5 mg/mL-10,00 0 unit/mL-1 % ear solution instill 4 drops into left ear by otic route 3 times per day for 5 days 09/08 completed Not Available Not Available Not Available carvedilol 6.25 mg tablet 1 tablet twice per day active Not Available Not Available No t Available prednisone 10 mg tablet 05/31 completed Not Available Not Available Not Available Estrace 2 mg tablet 2mg weekly 11/14 completed Not Available Not Available Not Available atorvastati n 20 mg tablet take 1 tablet (20 mg) by oral route once daily 08/12 completed Not Available Not Available Not Available carvedilol 12.5 mg tablet Take 1 tablet twice a day by oral route. 07/27 completed Not Available Not Available Not Available clonidine 0.1 mg/24 hr weekly transdermal patch Apply 1 patch every week by transderm al route. 10/18 completed Not Available Not Available Not Available cefaclor 500 mg capsule take 1 capsule (500 mg) by oral route every 8 hours for 7 days 10/06 completed Not Available Not Available Not Available loperamide 2 mg capsule 10/15 completed Not Available Not Available Not Available Proctocort 30 mg rectal suppository insert 1 supposito ry (30 mg) by rectal route once-twic e daily prn 05/30 completed Not Available Not Available Not Available pravastatin 40 mg tablet 02/22 completed Not Available Not Available Not Available tizanidine 4 mg tablet Take by oral route for 30 days. 06/29 completed Not Available Not Available Not Available fluconazole 150 mg tablet 05/31 completed Not Available Not Available Not Available metoprolol succinate ER 50 mg tablet,exte nded release 24 hr TAKE 1 TABLET EVERY DAY 06/22 completed Not Available Not Available Not Available hydrocodone 5 mg-acetamin ophen 325 mg tablet Take 1 tablet twice a day by oral route for 3 days. 02/23 completed Not Available Not Available Not Available meloxicam 15 mg tablet take 1 tablet (15 mg) by oral route once daily 04/07 completed Not Available Not Available Not Available sucralfate 1 gram tablet 11/13 completed Not Available Not Available Not Available promethazin e 12.5 mg tablet Take 1 tablet 4 times a day by oral route as needed. 06/29 completed Not Available Not Available Not Available lisinopril 20 mg tablet take 1 tablet (20 mg) by oral route once daily for 90 days 05/29 completed Not Available Not Available Not Available ondansetron HCl 4 mg tablet Take 1 tablet every 8 hours by oral route as needed for 3 days. 06/15 completed Not Available Not Available Not Available famotidine 40 mg tablet Take 1 tablet twice a day by oral route for 30 days. 03/23 completed Not Available Not Available Not Available Medrol (Gregory) 4 mg tablets in a dose pack Take 1 dose pk by oral route as directed. 08/29 completed Not Available Not Available Not Available alendronate 70 mg tablet 1 tab po once weekly in the morning, at least 30 min before first food, beverage, or medicatio n of day 11/01 completed Not Available Not Available Not Available clonazepam 0.5 mg tablet 1 tablet every night active Not Available Not Available No t Available Pyridium 100 mg tablet take 1 tablet (100 mg) by oral route 3 times per day after meals for 3 days 08/27 completed Not Available Not Available Not Available Pyridium 200 mg tablet take 1 tablet (200 mg) by oral route 3 times per day after meals for 2 days 02/11 completed Not Available Not Available Not Available Zithromax Z-Gregory 250 mg tablet TAKE 2 TABLETS (500 MG) BY ORAL ROUTE ONCE DAILY FOR 1 DAY THEN 1 TABLET (250 MG) BY ORAL ROUTE ONCE DAILY FOR 4 DAYS 08/29 completed Not Available Not Available Not Available penicillin V potassium 500 mg tablet take 1 tablet (500 mg) by oral route 3 times per day for 5 days 01/26 completed Not Available Not Available Not Available amlodipine 5 mg tablet take 1 tablet (5 mg) by oral route once daily for 30 days 12/14 completed Not Available Not Available Not Available ciprofloxac in 500 mg tablet take 1 tablet (500 mg) by oral route every 12 hours for 7 days 02/11 completed Not Available Not Available Not Available peg-electro lyte solution 420 gram oral solution 07/07 completed Not Available Not Available Not Available tramadol 50 mg tablet 06/29 completed Not Available Not Available Not Available amoxicillin 500 mg tablet take 1 tablet (500 mg) by oral route every 12 hours for 10 days 11/29 completed Not Available Not Available Not Available levothyroxi ne 75 mcg tablet TAKE 1 TABLET BY MOUTH DAILY 2024 active Not Available Not Available Not Avai lable Kenalog 40 mg/mL suspension for injection Take 1 mL by injection route. 04/07 completed Not Available Not Available Not Available ceftriaxone 1 gram solution for injection Take 1 g by injection route. 08/12 completed Not Available Not Available Not Available clonidine HCl 0.2 mg tablet Take 1 tablet as needed by oral route as needed for 30 days. 07/14 completed Not Available Not Available Not Available tamsulosin 0.4 mg capsule Take 1 capsule every day by oral route for 90 days. 08/12 completed Not Available Not Available Not Available dicyclomine 20 mg tablet 06/29 completed Not Available Not Available Not Available diltiazem ER 120 mg capsule,24 hr,extended release Take 1 capsule every day by oral route as directed for 7 days. 04/11 completed Not Available Not Available Not Available Flagyl 500 mg tablet take 1 tablet (500 mg) by oral route every 12 hours for 7 days 01/26 completed Not Available Not Available Not Available baclofen 10 mg tablet 1 qd 02/23 completed Not Available Not Available Not Available amlodipine 10 mg tablet TAKE 1 TABLET (10 MG) BY ORAL ROUTE DAILY active Not Available Not Available No t Available benzonatate 100 mg capsule Take 1 capsule twice a day by oral route as needed for 5 days, for cough. 08/29 completed Not Available Not Available Not Available gemfibrozil 600 mg tablet take 1 tablet (600 mg) by oral route 2 times per day 30 minutes before morning and evening meal 01/02 completed Not Available Not Available Not Available hyoscyamine 0.125 mg disintegrat ing tablet 08/12 completed Not Available Not Available Not Available levothyroxi ne 50 mcg tablet take 1 tablet (50 mcg) by oral route once daily 02/11 completed Not Available Not Available Not Available cephalexin 500 mg capsule take 1 capsule (500 mg) by oral route every 12 hours for 10 days 04/26 completed Not Available Not Available Not Available pantoprazol e 40 mg tablet,raymundo yed release TAKE 1 TABLET BY MOUTH EVERY NIGHT AT BEDTIME 08/29 completed Not Available Not Available Not Available hyoscyamine sulfate 0.125 mg tablet 04/07 completed Not Available Not Available Not Available WelChol 625 mg tablet 07/14 completed Not Available Not Available Not Available Catapres 0.1 mg tablet Take 1 tablet twice a day by oral route. 04/11 completed Not Available Not Available Not Available neomycin-po lymyxin-dex ameth 3.5 mg/mL-10,00 0 unit/mL-0.1 % eye drops 11/13 completed Not Available Not Available Not Available ropinirole 0.5 mg tablet 1 tablet qd 11/13 completed Not Available Not Available Not Available ranitidine 150 mg tablet Take 1 tablet twice a day by oral route. 07/14 completed Not Available Not Available Not Available hyoscyamine 0.125 mg sublingual tablet DISSOLVE ONE TO TWO TABLETS UNDER THE TONGUE FOUR TIMES A DAY NEEDED FOR ABDOMINAL PAIN AND BLOATING 06/29 completed Not Available Not Available Not Available promethazin e 25 mg tablet take 1 tablet by oral route every 4 hours as needed for 1 day 11/14 completed Not Available Not Available Not Available candesartan 16 mg tablet TAKE 1 TABLET BY MOUTH EVERY EVENING active Not Available Not Available No t Available hydrochloro thiazide 12.5 mg capsule Take 1 capsule every day by oral route as directed for 30 days. 07/14 completed Not Available Not Available Not Available pramipexole 0.25 mg tablet 10/15 completed Not Available Not Available Not Available raloxifene 60 mg tablet TAKE ONE TABLET BY MOUTH DAILY 04/07 completed Not Available Not Available Not Available hydroxyzine HCl 25 mg tablet take 1/2 to 1 tablet by mouth every night at bedtime 08/29 completed Not Available Not Available Not Available aspirin 81 mg tablet take 1 tablet (81 mg) by oral route once daily 05/30 completed Not Available Not Available Not Available hydrochloro thiazide 25 mg tablet Take 1 tablet every day by oral route. 06/22 completed Not Available Not Available Not Available mirtazapine 15 mg tablet 11/13 completed Not Available Not Available Not Available gabapentin 100 mg capsule Take 1 capsule 3 times a day by oral route as needed for 90 days. 04/07 completed Not Available Not Available Not Available ergocalcife rol (vitamin D2) 1,250 mcg (50,000 unit) capsule one tab once a week 11/13 completed Not Available Not Available Not Available dexamethaso ne sodium phosphate 4 mg/mL injection solution Inject 1 mL every day by intramusc ular route. 07/27 completed Not Available Not Available Not Available azelastine 137 mcg (0.1 %) nasal spray USE 1 SPRAY(S) IN EACH NOSTRIL TWICE DAILY 11/13 completed Not Available Not Available Not Available albuterol sulfate HFA 90 mcg/actuati on aerosol inhaler Inhale 2 puffs every 4 hours by inhalatio n route. 2024 active Not Available Not Available Not Avai lable hydroxyzine HCl 10 mg tablet 1-2 tabs po q6hrs prn 06/29 completed Not Available Not Available Not Available bromphenira mine-pseudo ephedrine-D M 2 mg-30 mg-10 mg/5 mL oral syrup TAKE 8 ML EVERY 4-6 HOURS BY ORAL ROUTE NEEDED. 04/26 completed Not Available Not Available Not Available ondansetron 4 mg disintegrat ing tablet DISSOLVE ONE TABLET BY MOUTH EVERY 8 HOURS NEEDED FOR nausea 12/07 completed Not Available Not Available Not Available cefdinir 300 mg capsule TAKE ONE CAPSULE BY MOUTH TWICE DAILY 12/07 completed Not Available Not Available Not Available dexamethaso ne sodium phosphate 10 mg/mL injection solution Take 0.5 mL by injection route. 04/19 completed Not Available Not Available Not Available losartan 100 mg tablet take 1 tablet (100 mg) by oral route once daily 05/30 completed Not Available Not Available Not Available doxycycline hyclate 100 mg tablet 06/29 completed Not Available Not Available Not Available dicyclomine 10 mg capsule Take 1 capsule as needed by oral route for 30 days. 07/27 completed Not Available Not Available Not Available naproxen 500 mg tablet take 1 tablet by oral route 2 times a day as needed for 30 days 05/30 completed Not Available Not Available Not Available metoclopram suhail 10 mg tablet TAKE ONE TABLET BY MOUTH EVERY 6 HOURS NEEDED 11/13 completed Not Available Not Available Not Available amoxicillin 875 mg-potkpiu m clavulanate 125 mg tablet 08/12 completed Not Available Not Available Not Available simethicone 80 mg chewable tablet Take 1 tablet 3 times a day by oral route as needed for 10 days. 07/10 completed Not Available Not Available Not Available neomycin-po lymyxin-hyd rocort 3.5 mg-10,000 unit/mL-1 % ear drops,susp instill 4 drops into affected ear(s) by otic route 3 times per day for 10 days 08/29 completed Not Available Not Available Not Available Augmentin 875 mg tablet Take 1 tablet every 12 hours by oral route. 08/12 completed Not Available Not Available Not Available Estrace 0.01% (0.1 mg/gram) vaginal cream insert 1 gram by vaginal route twice weekly 06/22 completed Not Available Not Available Not Available olmesartan 20 mg tablet Take 1 tablet every day by oral route. 11/13 completed Not Available Not Available Not Available ezetimibe 10 mg tablet 08/12 completed Not Available Not Available Not Available cyclobenzap rine 5 mg tablet 11/13 completed Not Available Not Available Not Available Restasis 0.05 % eye drops in a dropperette 07/14 completed Not Available Not Available Not Available rosuvastati n 20 mg tablet take 1 tablet (20 mg) by oral route once daily 12/07 completed Not Available Not Available Not Available Crestor 10 mg tablet take 1 tablet (10 mg) by oral route once daily 05/30 completed Not Available Not Available Not Available nitrofurant oin monohydrate /macrocryst als 100 mg capsule take 1 capsule (100 mg) by oral route every 12 hours with food for 7 days 05/25 completed Not Available Not Available Not Available duloxetine 20 mg capsule,del ayed release 1 tablet qd active Not Available Not Available No t Available duloxetine 60 mg capsule,del ayed release 1 tablet every day 05/25 completed Not Available Not Available Not Available Tricor 145 mg tablet take 1 tablet (145 mg) by oral route once daily 11/01 completed Not Available Not Available Not Available Vesicare 10 mg tablet take 1 tablet (10 mg) by oral route once daily for 30 days 10/02 completed Not Available Not Available Not Available fenofibrate 160 mg tablet TAKE ONE TABLET DAILY active Not Available Not Available No t Available pregabalin 25 mg capsule Take 1 capsule every day by oral route for 30 days. 08/12 completed Not Available Not Available Not Available chlorhexidi ne gluconate 0.12 % mouthwash 08/12 completed Not Available Not Available Not Available MoviPrep 100 gram-7.5 gram-2.691 gram oral powder packet 05/24 completed Not Available Not Available Not Available Fish Oil 1,000 mg capsule take by oral route 3 times a day 06/29 completed Not Available Not Available Not Available Bystolic 10 mg tablet Take 1 tablet every day by oral route. 06/29 completed Not Available Not Available Not Available nebivolol 2.5 mg tablet Take 1 tablet every day by oral route for 30 days. 08/12 completed Not Available Not Available Not Available nebivolol 5 mg tablet Take 1 tablet every day by oral route as directed. 12/07 completed Not Available Not Available Not Available Trilipix 135 mg capsule,del ayed release take 1 capsule (135 mg) by oral route once daily 03/15 completed Not Available Not Available Not Available Vitamin D3 125 mcg (5,000 unit) tablet Take by oral route. active Not Available Not Available No t Available Jennifer Allergy 180 mg tablet Take 1 tablet every day by oral route. 2024 active Not Available Not Available Not Avai lable Myrbetriq 25 mg tablet,exte nded release Take 1 tablet every day by oral route for 30 days. 08/29 completed Not Available Not Available Not Available Vascepa 1 gram capsule 11/13 completed Not Available Not Available Not Available Flonase Allergy Relief 50 mcg/actuati on nasal spray,suspe nsion inhale 2 puffs by nasal route daily for 30 days 10/17 completed Not Available Not Available Not Available Folinic-Plu s 4 mg-50 mg-2 mg tablet 11/13 completed Not Available Not Available Not Available Folinic-Plu s active Not Available Not Available Not Available Repatha SureClick 140 mg/mL subcutaneou s pen injector Inject 140 mg every 2 weeks by sub-q route as directed for 84 days. 12/14 completed Not Available Not Available Not Available Citrucel qd 06/29 completed Not Available Not Available Not Available Restasis MultiDose 0.05 % eye drops prn 08/12 completed Not Available Not Available Not Available Fluzone High-Dose 0216-5016 (PF) 180 mcg/0.5 mL intramuscul ar syringe 04/07 completed Not Available Not Available Not Available magnesium 200 mg (as magnesium oxide) chewable tablet Take 1 tablet every day by oral route. 10/15 completed Not Available Not Available Not Available Vitals Date Recorded Body weight Body mass index (BMI) Body height Body temperature Provider Name and Address Organization Details Last Updated DateTime 08/29/2024 20668.63 g 26.3 kg/m2 162.56 cm 97.8 [degF] Marimar Chrissy [place] - [facility] - [place] & [place] 08/29/2024 13:35:49 Social History None recorded. Functional Status None recorded. Mental Status None recorded. Family History Nothing Reported. Medical History Condition Response Allergies/Hayfever Y Hyperlipidemia Y Hypertension Y Gynecological HistoryNo gynecological history recorded. Obstetrics History GPAL:G 0 P 0 0 0 0 Immunizations Vaccine Type Date Status Note Provider Nam e and Address Organization Details Recorded Time Influenza, split virus, quadrivalent, preservative 8 completed Marimar Chrissy null, [place] - [facility] - [place] & [place] 08/20/2024 15:00:37 Influenza, split virus, quadrivalent, preservative 7 completed Marimar Chrissy [place] [facility] - [place] & [place] 08/20/2024 15:00:37 zoster recombinant 4 completed Marimar Chrissy [place] [facility] - [place] & [place] 08/20/2024 15:00:37 zoster recombinant 3 completed Marimar Chrissy [place] [facility] [place] & [place] 08/20/2024 15:00:37 Influenza, high-dose, quadrivalent, PF 2 completed Marimar Chrissy [place] [facility] [place] & [place] 08/20/2024 15:00:37 Influenza, high-dose, quadrivalent, PF 1 completed Marimar Chrissy [place] [facility] & [place] 08/20/2024 15:00:37 Influenza, high-dose, quadrivalent, PF 3 completed Marimar Chrissy [place] [facility] & [place] 08/20/2024 15:00:37 COVID-19, mRNA, LNP-S, PF, 100 mcg/0.5mL dose or 50 mcg/0.25mL dose 1 completed Marimar Chrissy [place] [facility] & [place] 08/20/2024 15:00:37 pneumococcal polysaccharide PPV23 9 completed Marimar Chrissy [place] [facility] [place] & [place] 08/20/2024 15:00:37 influenza, unspecified formulation 3 completed Marimar Chrissy [place] [facility] [place] & [place] 08/20/2024 15:00:37 influenza, unspecified formulation 1 completed Marimar Chrissy [place] [facility] & [place] 08/20/2024 15:00:37 influenza, unspecified formulation 0 completed Marimar Chrissy [place] [facility] [place] [facility] & [place] 08/20/2024 15:00:37 influenza, unspecified formulation 5 completed Marimar Chrissy [place] [facility] [place] & [place] 08/20/2024 15:00:37 Tdap 4 completed Marimar Chrissy [place] [facility] [place] [facility] & [place] 08/20/2024 15:00:37 Pneumococcal conjugate PCV 13 0 completed Marimar Chrissy [place] [facility] & [place] 08/20/2024 15:00:37 Influenza, high-dose, trivalent, PF 4 completed Marimar Chriss[place] [facility] - [facility] & [place] 08/20/2024 15:00:37 Influenza, high-dose, trivalent, PF 9 completed Marimar Chrissy null, [place] [facility] [place] 08/20/2024 15:00:37 Pneumococcal Conjugate, unspecified formulation 3 completed Marimar mason, [facility] & [place] 08/20/2024 15:00:37 Past Encounters Encounter ID Performer Location Encounter Start Date Encounter Closed Date Diagnosis/Indication Diagnosis SNOMED-CT Code Diagnosis ICD10 Code Diagnosis Note [id number] Yanni Mac MD [facility] [address], [facility] [place] [address] 8 08/29/2024 13:06:19 08/29/2024 14:07:40 Sensorineural hearing loss of bilateral ears 162399986 H90.3 Disorder o f external ear 49741356 H61.040 [id number] EUSEBIA [facility] [place] [id number] 8 08/29/2024 14:08:13 08/29/2024 14:19:52 Sensorineural hearing loss 45098752 H90.3 Health Concerns Section Related Observation LastModified by Organization Detai ls LastModified Time None Recorded Concern Status LastModified by Organization Details LastModified Time None Recorded Advance Directives Directive None Recorded Payers Insurance Date Sequence Insurance Name Policy Number Policy Calderon Covered Member ID Calderon Member ID Guarantor Name 08/29/2024 1 [employer] (MEDICARE REPLACEMENT/A DVANTAGE - PPO) Leia Moreira [id number] Leia Moreira Notes Date Note Type Note Provider Name and Address Organization Details Recorded Time 08/29/2024 text/html 08/29/24-Patient is here for right ear concerns, she states that her symptoms started with a cough she saw PCP was given a steroid injection with no improvement she was then put on Amoxicillin with no improvement. Patient states her ears feel full and she used a Qtip to try to clean her ears out and she got blood on it and heard a clicking noise. Patient does feel as if she has some difficulty hearing in background noise. Yanni Mac MD [address] [facility], [place], [address], [facility] & [place] 08/29/2024 15:08:19 08/29/2024 text/html Ms. Moreira was seen today for an audiologic evaluation due to gradual hearing loss bilaterally per Dr. Yanni Mac MD. Ms. Moreira reports some difficulty hearing well in background noise, however, she denies any significant hearing loss. She denies tinnitus, dizziness, and aural fullness/pressure. Otoscopic inspection was unremarkable bilaterally. Audiometric testing revealed a mild, sloping to severe, high freq SNHL bilaterally. Good word rec scores. 1-Discussed findings with Ms. Moreira and Dr. Mac. 2-F/u with Dr. Mac this date. 3-Discussed hearing aid options; she was not interested at this time. 4-F/u hearing testing annually. ANA RIVEAR, AUD [address] [facility], [place], [address], [facility] - [facility] - [place] & [place] 08/29/2024 15:05:42 OBGyn Episode No OBEpisode recorded.
--- OUTSIDE RECORDS SUMMARY | 2024-11-07 09:26 | XMS_ITS | Continuity of Care Document ---
Author Organization [facility] Address [address] [place] [address] Care Team Providers Care Mandrel Puller Name Role Phone UGO EDSON Referring Provider [phone] Assessment No assessment recorded. Plan of Treatment Reminders Order Date Submit Date Provider Last Modified By Organization Details Last Modified Time Details Appointments None recorded. Lab BMP, serum or plasma 2024 025 [facility], [address], [place] [address], [place], [address], 5 04:06:32 TSH + free T4, serum 2024 025 [facility], [address], [place] [address], [place], [address], 5 04:06:31 hepatic function panel, serum 2024 025 [facility], [address], [address], [place], [address], 5 04:06:32 lipid panel, serum 2024 025 [facility], [address], [place] [address], [place], [address], 5 04:06:33 CBC w/ auto diff 2024 025 [facility], [address], [place] [address], [place], [address], 5 04:06:31 magnesium, serum or plasma 2024 025 [facility], [address], [address], [place], [address], 5 04:06:33 Referral None recorded. Procedures None recorded. Surgeries None recorded. Imaging None recorded. Medication Orders None recorded. Patient TargetsNo targets recorded. Patient InstructionsNo instructions recorded. Reason for Referral None Reported. Results Created Date Observation Date Name Description Value Unit Range Abnormal Flag Note LastModifiedBy Organization Detail LastModifiedTime 10/03/1910/02/2024 XR, knee, 3 view No observ ation record ed. [facility] [address], [place], [address], 10/02/2024 15:58:31 Result Notes None recorded. Problems Name Problem SNOMED Code Status Onset Date Resolution Date Notes Provider Name and Address Organization Details Recorded Time History of polyp of colon 470369051 Active 2017 Leroy Gordon APRN [address], [place], [address] , [place] - [facility] 3 13:43:03 Irritable bowel syndrome 91802611 Active 2015 Leroy Gordon APRN [address], [place], [address] , [place] - [facility] 3 13:43:15 Osteopenia 802924863 Active 2015 Leroy Gordon APRN [address], [place], [address] , [place] [facility] 3 13:43:18 Acid reflux 809528722 Active 2022 Leslye mason, [place] - [facility] 4 12:50:11 Essential hypertension 21076390 Active 2016 Leroy Gordon APRN [address], [place], [address] , [place] [facility] 3 13:43:01 Acute bronchitis 26992400 Active 2022 Leslye mason, [place] - [facility] 4 12:50:11 Hyperlipidemi a 39050981 Active 2016 Leroy Gordon APRN [address], [place], [address] , [place] [facility] 3 13:43:05 Hypothyroidis m 02745474 Active 2016 Leroy Gordon INSIDE SALES ADMINISTRATOR [address], [place], [address] , [place] [facility] 3 13:43:12 Prediabetes 110019242 Active 2016 Leroy Gordon INSIDE SALES ADMINISTRATOR [address], [place], [address] , [place] [facility] 3 13:43:20 Nocturia 722187361 Active 2023 Ree Dubon APRN [address], [place], [address] , [place] [facility] 4 14:22:42 Vitamin D deficiency 86838744 Active 2016 Leroy Gordon INSIDE SALES ADMINISTRATOR [address], [place], [address] , [place] [facility] 3 13:43:27 Problem Notes None recorded. Procedures Surgical History Date Name Laterality Status Provider Name and Address Organization Details Recorded Time 05/28/19 25 Medication Reconcilliation completed Anika Vaughn [place] [facility] 05/28/2024 13:39:47 04/26/20 24 In and Out Catheterization completed Ree Dubon APRN [address], [place], [address], [place] [facility] 04/26/2024 14:24:58 12/08/19 24 [...] completed Ree Dubon APRN [address], [place], [address], [place] [facility] 05/09/2024 08:51:39 10/09/19 23 [...] completed Elvira Velarde MD [address], [place], [address], [place] [facility] 01/31/2018 15:24:08 02/09/20 08 Orthopedic Surgery completed Leslye Chaudhry [place] [facility] 04/26/2024 13:03:44 02/09/20 08 Back Surgery completed Anika Vaughn [place] [facility] 05/25/2024 13:33:27 06/17/18 75 Hysterectomy completed Concepcion Espana [place] - [facility] 12/08/2023 10:31:21 06/17/18 75 Adnexal surgery completed Concepcion [place] [facility] 12/08/2023 10:31:21 06/17/18 75 Appendectomy completed Concepcion [place] [facility] 12/08/2023 10:31:21 05/02/18 69 Tonsillectomy completed Concepcion [place] [facility] 12/08/2023 10:31:21 skin cancer completed Fawn Rogers [place] [facility] 05/24/2016 15:15:17 Hysterectomy, Total Abdominal completed Fawn Rogers [place] - [facility] 05/24/2016 15:15:35 Imaging Results None recorded. Procedure Notes None recorded. Medical Equipment None Reported. Allergies Allergen ID Allergen Name Allergen Category Reaction Reaction Severity Criticality Documentation Date Start Date Code Code System Note Provider Name and Address Organization Details Recorded Time 454913 amlodipin e medicatio n nausea Not available Not available 04/28/2018 76469 RxNorm Elvira Velarde MD [address], [place], [address], [place] - [facility] 8 10:19:28 352145 Repatha medicatio n swelling Not available [facility] 12/14/2022 27472 96 RxNorm Concepcion Espana null, [place] - [facility] 3 11:14:57 911992 Naprosyn medicatio n Not available Not available Not available 04/26/202420291 2 RxNorm Leslye Chaudhry null, [place] - [facility] 4 12:49:29 906475 prednison e medicatio n Not available Not available Not available 04/26/2024 8640 RxNorm Leslye Chaudhry null, [place] - [facility] 4 12:49:36 17451 lisinopri l medicatio n cough Not available Not available 02/06/20162010 19239 RxNorm React ion: cough ; Not Available [facility] 6 09:08:49 15457 Cipro medicatio n hives Not available Not available 02/06/20162010 02044 3 RxNorm React ion: hives ; Not Available [facility] 6 09:35:17 46019 codeine sulfate medicatio n Not available Not available Not available 02/06/20162008 41324 RxNorm Not Available [facility] 6 10:11:15 04083 Actonel medicatio n Not available Not available Not available 02/06/20162011 80040 3 RxNorm Not Available [facility] 6 10:11:15 04443 Substance with sulfonami de structure and antibacte rial mechanism of action (substanc e) medicatio n Not available Not available Not available 02/06/20162008 70447 8003 SNOMED Not Available [facility] 6 10:11:15 89649 morphine medicatio n myalgias (muscle pain) Not available Not available 09/08/2017 7052 RxNorm shaky all over, pain to neck Elvira Velarde MD [address], [place], [address], [place] [facility] 8 14:59:58 Medications [...] nued on: 10/07/19 13 11:56AM; User: sinai ;Est. Completi on: 10/10/19 13;Pharm acyVerif ied: 10/03/19 [...] nued on: 05/30/19 13 5:20PM;U ser: sinai ;Est. Completi on: 03/18/20 12;Indic ation: Proctiti s - (5694 90);Prin bernarda: 01/18/20 12 Not Available Not Available Not Available pravastat in 40 mg tablet 02/22 completed pravasta tin 40 mg oral tablet;R ecorded Status: Recorded on: 05/30/19 13 5:20PM;D iscontin ued Status: Disconti nued on: 02/23/20 13 1:34PM;U ser: glascock r;Indica tion: Mixed Hyperlip idemia - (2722 ) Not Available Not Available Not Available tizanidin [...] on: 03/06/20 11;Indic ation: Hyperten courtney - (07.4019 );Prin bernarda: 03/11/20 10 Not Available Not [...] Disconti nued on: 11/02/19 14 10:00AM; User: [email or web address] ;Est. Completi on: 12/26/19 14;Indic ation: Post-Men opausal Osteopor osis - (13.7330 10);Isac Mendiola fied: 01/30/20 13 9:19PM Not Available Not [...] nued on: 08/28/19 16 10:34AM; User: deanna ;Est. Completi on: 06/23/19 16;Indic ation: Acute cystitis [...] nued on: 01/27/20 13 10:27AM; User: sinai ;Est. Completi on: 10/12/19 13;Pharm Thien ied: 10/07/19 13 11:56AM Not Available Not [...] Disconti nued on: 02/12/20 10 3:26PM;U ser: carly; Est. Completi on: 01/10/20 10;Print ed: 01/03/20 [...] 10:27AM; User: sinai Rubin on: 10/10/19 13;Pharm Thien ied: 10/03/19 13 5:00PM Not Available Not [...] estepl;I ndicatio n: Hypertri glycerid emia - () Not Available Not Available Not Available hyoscyami [...] ser: estepl;I ndicatio n: Hypothyr oidism - () Not Available Not Available Not Available cephalexi [...] 13;Indic ation: Nausea and Vomiting - (16.7870 10);Isac Mendiola fied: 10/03/19 13 5:00PM Not Available Not [...] nued on: 05/30/19 13 5:20PM;U ser: earlywin ec Not Available Not Available [...] ;Prescri be Status: Prescrib ed on: 06/20/19 16 10:40AM; User: allisons ;Est. Completi on: 10/18/19 16;Pharm acyVerif ied: 06/20/19 16 10:40AM Not Available Not Available Not Available Folinic-P arin 4 mg-50 mg-2 mg tablet Take 1 tablet every day by oral route. 2024 active Not Available Not Available Not Avai [email or web address] Repatha SureClick 140 mg/mL subcutane ous pen injector Inject 140 mg every 2 weeks by sub-q route as directed for 84 days. 12/14 completed Not Available Not Available Not Available Citrucel qd 06/29 completed Not Available Not Available Not Available Restasis MultiDose 0.05 % eye drops prn 08/12 completed Not Available Not Available Not Available Fluzone High-Dose 7786-9242 (PF) 180 mcg/0.5 mL intramusc ular syringe [...] height Body mass index (BMI) Body weight Heart rate Oxygen saturation Oxygen saturation in Arterial blood by Pulse oximetry Respiratory rate Systolic And Diastolic Provider Name and Address Organization Details Last Updated DateTime 5 160.02 cm 26.6 kg/m2 72863.8 6 g 65 /min 97 % 97 % 18 /min 128/74 mm[Hg] Concepcion Espana [place] - [facility] 5 08:14:51 Social History Question Answer Notes LastModified by Organizat ion Details LastModified Time Tobacco Smoking Status Never Smoker Fawn Rogers null, [place] - [facility] 05/24/2016 15:10:12 Able To Swim? Yes Information not available 05/24/2016 Do You Have An Advance Directive? Yes Information not available 05/25/2024 Do You Wear A Helmet When Biking? Yes Information not available 05/24/2016 Are You Blind Or Do You Have Difficulty Seeing? No Information not available 05/24/2016 Is Blood Transfusion Acceptable In An Emergency? Yes [email or web address] Information not available 04/26/2024 What Is Your [...] Type Of Diet Are You Following? REGULAR [email or web address] Information not available 04/26/2024 Which Illicit Or [...] Or The Highest Degree You Have Received? [id number] [email or web address] Information not available 04/26/2024 Swimming/diving Yes Informati on not available 05/24/2016 Have There Been Any Changes To Your Family Or Social Situation? No Information not available 10/15/2022 What Is The Fluoride Status Of Your Home? Fluoridated [email or web address] Information not available 04/26/2024 Hard Of Hearing Or Deaf In One Or Both Ears? No Information not available 05/24/2016 Have You Recently Or Are You Planning To Travel To An Area With Zika Virus? No [email or web address] Information not available 04/26/2024 How Many Years Have You Used Illicit Or Recreational Drugs? 0 Information not available 05/25/2024 Legally Blind In One Or Both Eyes? No Information not available 05/24/2016 Do You Have A Medical Power Of Hospice Clinical Marketer? No Information not available 10/15/2022 What Was The Date Of Your Most Recent Tobacco Screening? 06/15/2024 Information not available 06/15/2024 How Many Children Do You Have? 20 Information not available 05/25/2024 Do You Use Protection During Sex? Always [email or web address] Information not available 04/26/2024 Do You Use Protection Against STDs? No Information not available 05/25/2024 What Is Your Relationship Status? Information not available 05/24/2016 Do You Use Your Seat Belt Or Car Seat Routinely? Yes Information not available 05/25/2024 Seat Belts Used Routinely Yes Information not available 05/24/2016 Are You Sexually Active? No None Since [email or web address] Information not available 04/26/2024 Smoke Alarm In Home Yes Information not available 05/24/2016 Do You Have Smoke And Carbon Monoxide Detectors In Your Home? Yes Information not available 10/15/2022 Are You Passively Exposed To Smoke? No Information not available 10/15/2022 Do You Use Sunscreen Routinely? No Information not available 05/25/2024 Has Tobacco Cessation Counseling Been Provided? Yes [email or web address] Information not available 02/23/2023 On What Date Was Tobacco Cessation Counseling Provided? 04/26/2024 Information not available 04/26/2024 Do You Have Difficulty Walking Or Climbing Stairs? No Information not available 05/24/2016 What Contraceptive Method Was Reported At Start Of This Visit? Female Sterilization Information not available 04/26/2024 Do You Want To Talk About Contraception Or Prevention During Your Visit Today? No - I Do Not Want To Talk About Contraception Today Because I Am Here For Something Else Information not available 04/26/2024 Do You Have Any Future Plans To Get ? No, I Don't Want To Become Information not available 04/26/2024 Sex: Female Functional [...] available 12/14/2022 What is your status? Not [email or web address] Information no t available 04/26/2024 Are you [...] anxious, or unable to sleep at night)? [id number] [email or web address] Information not available 04/26/2024 Do you have [...] 2023 10:31:08 Brother Chronic obstructive pulmonary disease [email or web address] Not available 04/26 12:54:14 Brother Malignant neoplasm of lung [email or web address] Not available 04/26 12:54:20 Brother Malignant melanoma [...] availabl e 12/08/2023 10:31:08 Sister Hypertensive disorder [email or web address] Not available 04/26 12:53:31 Sister Neoplasm of [...] colitis N Cerebrovascular Disease N Depression N Guillain-[place] N Sleep Apnea N Aneurysm N Bronchitis [...] virus, quadrivalent, preservative 7 completed Not Available [facility] 05/19/2019 03:54:44 influenza, unspecified formulation 0 completed Not Available [facility] 04/19/2023 15:39:27 influenza, unspecified formulation 1 completed Not Available [facility] 04/19/2023 15:39:27 influenza, unspecified formulation 3 completed Not Available [facility] 02/09/2016 09:11:04 influenza, unspecified formulation 5 completed Not Available [facility] 04/19/2023 15:39:27 Influenza, high-dose, quadrivalent, PF 3 completed Concepcioncaitlin [place], [place] [facility] 03/22/2023 13:46:41 zoster recombinant 3 completed Concepcion [place], [place] [facility] 04/19/2023 16:07:46 Influenza, split virus, quadrivalent, preservative 8 completed Not Available [facility] 04/19/2023 15:39:27 Influenza, high-dose, quadrivalent, PF 2 completed Con[place]pcion [place] [facility] 06/29/2022 10:11:59 Influenza, high-dose, quadrivalent, PF 1 completed Concepcion [place], [place] - [facility] 06/29/2022 10:11:59 COVID-19, mRNA, LNP-S, PF, 100 mcg/0.5mL dose or 50 mcg/0.25mL dose 1 completed Con[place]pcion [place] [facility] 06/29/2022 10:11:59 pneumococcal polysaccharide PPV23 9 completed Concepcion [place] [facility] 06/29/2022 10:11:59 Tdap 4 completed Concepcion [place] [facility] 06/29/2022 10:11:59 Pneumococcal conjugate PCV 13 0 completed Con[place]pcion [place] [facility] 06/29/2022 10:11:59 Influenza, high-dose, trivalent, PF 9 completed Concepc[place] [facility] 06/29/2022 10:11:59 zoster recombinant 4 completed Anika Stears [place] [facility] 11/14/2023 14:08:03 Pneumococcal Conjugate, unspecified formulation 3 completed Anika Stears [place] [facility] 12/08/2023 13:48:07 Past Encounters Encounter ID Performer Location Encounter Start Date Encounter Closed Date Diagnosis/Indication Diagnosis SNOMED-CT Code Diagnosis ICD10 Code Diagnosis Note [id number] Leroy Gordon APRN [address] [address] 10/05/2024 08:08:17 10/05/2024 09:28:20 Localized edema 008741765 R60.0 Hypothyroidism 88402359 E03.8 Coronary atherosclerosis 613001172 I25.10 Mixed hyperlipidemia 267 352757 E78.2 Essential hypertension 47555787 [address] Moreno- sent pt to his office to be seen nowif any issues or concerns returnmoni tor bp at home bring in log [id number] Leroy Gordon APRN [address] [address] 10/16/2024 10:16:42 10/16/2024 11:35:48 Restless legs 20390589 G25.81 discussed medif worsen or no improvemen t return [id number] Leroy Gordon APRN [address] [address] 10/25/2024 08:00:53 10/25/2024 08:45:32 Coronary atherosclerosis 794017759 I25.10 Restless legs 13979516 G 25.81 discussed medif worsen or no improvemen t return Health Concerns Section Related Observation LastModified by Organization Detai ls LastModified Time None Recorded Concern Status LastModified by Organization Details LastModified Time None Recorded Payers Encounter Date Sequence Insurance Name Policy Number Policy Calderon Covered Member ID Calderon Member ID Guarantor Name 10/25/2024 1 [employer] (MEDICARE REPLACEMENT/A DVANTAGE - PPO) Leia Moreira [id number] Leia Moreira Notes Date Note Type Note Provider Name and Address Organization Details Recorded Time 10/25/2024 text/html 79 yr old female presents for lab work for cardiology. pt states she is doing well, requip helped with restless legs Leroy Gordon APRN [address], [place], [address], [place] [facility] 10/25/2024 08:31:37 OBGyn Episode No OBEpisode recorded.
--- OUTSIDE RECORDS SUMMARY | 2024-11-07 09:27 | XMS_ITS | Continuity of Care Document ---
Author Organization [facility] Address [address] [place] [address] Care Team Providers Care Table Filler Name Role Phone EDSON ARIZMENDI Referring Provider [phone] Assessment No assessment recorded. Plan of Treatment Reminders Order Date Submit Date Provider Last Modified By Organization Details Last Modified Time Details Appointments None recorded. Lab lipid panel, serum 2024 025 [facility], [address], [place] [address], [place], [address], 5 08:10:25 CBC w/ auto diff 2024 025 [facility], [address], [place] [address], [place], [address], 5 08:10:23 hepatic function panel, serum 2024 025 [facility], [address], [place] [address], [place], [address], 5 08:10:24 BMP, serum or plasma 2024 025 [facility], [address], [place] [address], [place], [address], 5 08:10:24 TSH + free T4, serum 2024 025 [facility], [address], [place] [address], [place], [address], 5 08:10:22 magnesium, serum or plasma 2024 025 [facility], [address], [address], [place], [address], 5 08:10:25 Referral None recorded. Procedures None recorded. Surgeries None recorded. Imaging None recorded. Medication Orders None recorded. Patient TargetsNo targets recorded. Patient InstructionsNo instructions recorded. Reason for Referral None Reported. Results Created Date Observation Date Name Description Value Unit Range Abnormal Flag Note LastModifiedBy Organization Detail LastModifiedTime 10/03/1910/02/2024 XR, knee, 3 view No observ ation record ed. [facility] [address], [place], [address], 10/02/2024 15:58:31 Result Notes None recorded. Problems Name Problem SNOMED Code Status Onset Date Resolution Date Notes Provider Name and Address Organization Details Recorded Time History of polyp of colon 725786198 Active 2017 Leroy Gordon APRN [address], [place], [address] , [place] [facility] 3 13:43:03 Irritable bowel syndrome 59296793 Active 2015 Leroy Gordon APRN [address], [place], [address] , [place] [facility] 3 13:43:15 Osteopenia 366924598 Active 2015 Leroy Gordon APRN [address], [place], [address] , [place] [facility] 3 13:43:18 Acid reflux 878067503 Active 2022 Leslye mason, [place] - [facility] 4 12:50:11 Essential hypertension 96108306 Active 2016 Leroy Gordon APRN [address], [place], [address] , [place] [facility] 3 13:43:01 Acute bronchitis 40197355 Active 2022 Leslye mason, [place] - [facility] 4 12:50:11 Hyperlipidemi a 75041202 Active 2016 Leroy Gordon APRN [address], [place], [address] , [place] [facility] 3 13:43:05 Hypothyroidis m 44602711 Active 2016 Leroy Gordon BUILDING PERFORMANCE CONSULTANT [address], [place], [address] , [place] [facility] 3 13:43:12 Prediabetes 036900273 Active 2016 Leroy Gordon BUILDING PERFORMANCE CONSULTANT [address], [place], [address] , [place] [facility] 3 13:43:20 Nocturia 203504282 Active 2023 Ree Dubon APRN [address], [place], [address] , [place] [facility] 4 14:22:42 Vitamin D deficiency 40675289 Active 2016 Leroy Gordon BUILDING PERFORMANCE CONSULTANT [address], [place], [address] , [place] [facility] 3 13:43:27 Problem Notes None recorded. Procedures Surgical History Date Name Laterality Status Provider Name and Address Organization Details Recorded Time 05/28/19 25 Medication Reconcilliation completed Anika Vaughn [place] - [facility] 05/28/2024 13:39:47 04/26/20 24 In and Out Catheterization completed Ree Dubon APRN [address], [place], [address], [place] [facility] 04/26/2024 14:24:58 12/08/19 24 [...] completed Ree Dubon APRN [address], [place], [address], [place] [facility] 05/09/2024 08:51:39 10/09/19 23 [...] completed Elvira Velarde MD [address], [place], [address], [place] [facility] 01/31/2018 15:24:08 02/09/20 08 [...] Name and Address Organization Details Recorded Time 076488 amlodipin e medicatio n nausea Not available Not available 04/28/2018 39153 RxNorm Elvira Velarde MD [address], [place], [address], [place] [facility] 8 10:19:28 042836 Repatha medicatio n swelling Not available [facility] 12/14/2022 86688 96 RxNorm Concepcion Espana null, [place] - [facility] 3 11:14:57 922614 Naprosyn medicatio n Not available Not available Not available 04/26/202420291 2 RxNorm Leslye Chaudhry null, [place] - [facility] 4 12:49:29 740288 prednison e medicatio n Not available Not available Not available 04/26/2024 8640 RxNorm Leslye Chaudhry null, [place] - [facility] 4 12:49:36 13595 lisinopri l medicatio n cough Not available Not available 02/06/20162010 53629 RxNorm React ion: cough ; Not Available [facility] 6 09:08:49 96272 Cipro medicatio n hives Not available Not available 02/06/20162010 66266 3 RxNorm React ion: hives ; Not Available [facility] 6 09:35:17 90273 codeine sulfate medicatio n Not available Not available Not available 02/06/20162008 09581 RxNorm Not Available [facility] 6 10:11:15 34493 Actonel medicatio n Not available Not available Not available 02/06/20162011 60070 3 RxNorm Not Available [facility] 6 10:11:15 41256 Substance with sulfonami de structure and antibacte rial mechanism of action (substanc e) medicatio n Not available Not available Not available 02/06/20162008 92039 8003 SNOMED Not Available [facility] 6 10:11:15 20810 morphine medicatio n myalgias (muscle pain) Not available Not available 09/08/2017 7052 RxNorm shaky all over, pain to neck Elvira Velarde MD [address], [place], [address], [place] [facility] 8 14:59:58 Medications [...] Available Not Available Not Available Fluzone High-Dose 6315-2039 (PF) 180 mcg/0.5 mL intramusc ular syringe [...] Details Last Updated DateTime 5 160.02 cm 26.3 kg/m2 96632.0 7 g 79 /min 98 % 98 % 20 /min 176/88 mm[Hg] Concepcion Espana [place] - [facility] 5 08:25:45 Social History Question Answer Notes LastModified by Organizat ion Details LastModified Time Tobacco Smoking Status Never Smoker Fawn mason, [place] - [facility] 05/24/2016 15:10:12 Able To Swim? Yes Information not available 05/24/2016 Do You Have An Advance Directive? Yes Information not available 05/25/2024 Do You Wear A Helmet When Biking? Yes Information not available 05/24/2016 Are You Blind Or Do You Have Difficulty Seeing? No Information not available 05/24/2016 Is Blood Transfusion Acceptable In An Emergency? Yes [email or web address] Information not available 04/26/2024 What Is Your [...] Type Of Diet Are You Following? REGULAR [email or web address] Information not available 04/26/2024 Which Illicit Or [...] Or The Highest Degree You Have Received? [id number] [email or web address] Information not available 04/26/2024 Swimming/diving Yes Informati on not available 05/24/2016 Have There Been Any Changes To Your Family Or Social Situation? No Information not available 10/15/2022 What Is The Fluoride Status Of Your Home? Fluoridated Information not available 04/26/2024 Hard Of Hearing Or Deaf In One Or Both Ears? No Information not available 05/24/2016 Have You Recently Or Are You Planning To Travel To An Area With Zika Virus? No [email or web address] Information not available 04/26/2024 How Many Years Have You Used Illicit Or Recreational Drugs? 0 Information not available 05/25/2024 Legally Blind In One Or Both Eyes? No Information not available 05/24/2016 Do You Have A Medical Power Of Paste Up Worker? No Information not available 10/15/2022 What Was The Date Of Your Most Recent Tobacco Screening? 06/15/2024 Information not available 06/15/2024 How Many Children Do You Have? 20 Information not available 05/25/2024 Do You Use Protection During Sex? Always [email or web address] Information not available 04/26/2024 Do You Use Protection Against STDs? No Information not available 05/25/2024 What Is Your Relationship Status? Information not available 05/24/2016 Do You Use Your Seat Belt Or Car Seat Routinely? Yes Information not available 05/25/2024 Seat Belts Used Routinely Yes Information not available 05/24/2016 Are You Sexually Active? No None Since [email or web address] Information not available 04/26/2024 Smoke Alarm In Home Yes Information not available 05/24/2016 Do You Have Smoke And Carbon Monoxide Detectors In Your Home? Yes Information not available 10/15/2022 Are You Passively Exposed To Smoke? No Information not available 10/15/2022 Do You Use Sunscreen Routinely? No Information not available 05/25/2024 Has Tobacco Cessation Counseling Been Provided? Yes [email or web address] Information not available 02/23/2023 On What Date Was Tobacco Cessation Counseling Provided? 04/26/2024 [email or web address] Information not available 04/26/2024 Do You Have Difficulty Walking Or Climbing Stairs? No Information not available 05/24/2016 What Contraceptive Method Was Reported At Start Of This Visit? Female Sterilization [email or web address] Information not available 04/26/2024 Do You Want To Talk About Contraception Or Prevention During Your Visit Today? No - I Do Not Want To Talk About Contraception Today Because I Am Here For Something Else [email or web address] Information not available 04/26/2024 Do You Have [...] available 12/14/2022 What is your status? Not Information no t available 04/26/2024 Are you [...] anxious, or unable to sleep at night)? [id number] [email or web address] Information not available 04/26/2024 Do you have [...] 2023 10:31:08 Brother Chronic obstructive pulmonary disease [email or web address] Not available 04/26 12:54:14 Brother Malignant neoplasm of lung [email or web address] Not available 04/26 12:54:20 Brother Malignant melanoma [...] availabl e 12/08/2023 10:31:08 Sister Hypertensive disorder [email or web address] Not available 04/26 12:53:31 Sister Neoplasm of brain stem [email or web address] Not available 05/25 13:23:08 Medical History Condition Response Pancreatitis N Coronary Artery Disease N Other N Gout N Atrial Fibrillation N congenital heart disease N Blood Diseases N Kidney Stones N Hyperthyroidism Y Rheumatoid arthritis N Blood Transfusion N Erectile Dysfunction N amputation N Colonoscopy N Skin Lesions N COPD N Depression N Pneumonia N Incontinence N Murmur N Edema N Alzheimer's Disease N Migraine Headaches N Tobacco Abuse N Anxiety Disorder N Muscle, Joint, or Bone Problems Y Hemorrhoids N Obesity N Vision or Eye Problems Y Restless Leg Syndrome N Arthritis Y Infertility N Polyps N Carpal Tunnel N Mental Disorder N Acid Reflux (GERD) Y Cancer N Stroke N Varicosities N Tendonitis N Crohn's Disease N Hypercholesterolemia Y Skin Cancer Y Fibromyalgia N Headaches N Anal Fissure N Irritable Bowel Syndrome [...] colitis N Cerebrovascular Disease N Depression N Guillain-[place] N Sleep Apnea N Aneurysm N Bronchitis [...] virus, quadrivalent, preservative 7 completed Not Available [facility] 05/19/2019 03:54:44 influenza, unspecified formulation 0 completed Not Available [facility] 04/19/2023 15:39:27 influenza, unspecified formulation 1 completed Not Available [facility] 04/19/2023 15:39:27 influenza, unspecified formulation 3 completed Not Available [facility] 02/09/2016 09:11:04 influenza, unspecified formulation 5 completed Not Available [facility] 04/19/2023 15:39:27 Influenza, high-dose, quadrivalent, PF 3 completed Concepcioncaitlin [place] [facility] 03/22/2023 13:46:41 zoster recombinant 3 completed Concepcion Malorie [place] [facility] 04/19/2023 16:07:46 Influenza, split virus, quadrivalent, preservative 8 completed Not Available [facility] 04/19/2023 15:39:27 Influenza, high-dose, quadrivalent, PF 2 completed Concepcion [place] [facility] 06/29/2022 10:11:59 Influenza, high-dose, quadrivalent, PF 1 completed Concepcion E[place], [place] - [facility] 06/29/2022 10:11:59 COVID-19, mRNA, LNP-S, PF, 100 mcg/0.5mL dose or 50 mcg/0.25mL dose 1 completed Concepcion [place] [facility] 06/29/2022 10:11:59 pneumococcal polysaccharide PPV23 9 completed Concepcion Espnaa [place], [place] [facility] 06/29/2022 10:11:59 Tdap [...] SNOMED-CT Code Diagnosis ICD10 Code Diagnosis Note [id number] Leroy Gordon APRN [facility] [address] [place] [place] [address] 10/05/2024 08:08:17 10/05/2024 09:28:20 Localized edema 735087676 R60.0 Hypothyroidism 47037451 E03.8 Coronary atherosclerosis 187563468 I25.10 Mixed hyperlipidemia 267 987132 E78.2 Essential hypertension 30488743 [address] Moreno- sent pt to his office to be seen nowif any issues or concerns returnmoni tor bp at home bring in log Health Concerns Section Related Observation LastModified by Organization Detai ls LastModified Time None Recorded Concern Status LastModified by Organization Details LastModified Time None Recorded Payers Encounter Date Sequence Insurance Name Policy Number Policy Calderon Covered Member ID Calderon Member ID Guarantor Name 10/05/2024 1 [employer] (MEDICARE REPLACEMENT/A DVANTAGE - PPO) Leia Moreira [id number] Leia Moreira Notes Date Note Type Note Provider Name and Address Organization Details Recorded Time 10/05/2024 text/html 78 yr old female presents for labs. She has been having issues with edema and high bp, cardiology has been changing medications. She has an appt with cardiology on October 09, pt states she is afraid she is going to have a stroke due to bp. pt states she cant tolerate the new bp so she is cutting her valsartan and taking it bid due to it making her feel tired. Leroy Gordon, H[place] [address], [place], [address], [place] [facility] 10/05/2024 09:11:00 OBGyn Episode No OBEpisode recorded.
--- OUTSIDE RECORDS SUMMARY | 2024-11-07 09:27 | XMS_ITS | Patient Health Record ---
Author Organization [facility] Address [address] [place] [address] Care Team Providers Care Band Master Name Role Phone Vicky Nelson Unavailable [phone] Reason For Referral No Information Medications Medication SIG (Take, Route, Frequency, Duration) Notes Start Date End Date Status Probiotic ORAL; Duration: -3 *Pick strengt h-form from [employer] for eRX* 09/03/2017 Active GEMBIBROZIL ORAL; Duration: -3 *Reorder from [employer] for eRx and Interaction Alerts* 09/03/2017 Active Metoprolol ORAL; Duration: -3 *Reorder from [employer] for eRx and Interaction Alerts* 04/19/2017 Active Vitamin D ORAL; Duration: -3 *Pick strengt h-form from [employer] for eRX* 04/19/2017 Active ATORVASTATIN ORAL; Duration: -3 *Reorder from [employer] for eRx and Interaction Alerts* 04/19/2017 Active Levothyroxine ORAL; Duration: -3 *Reorder from [employer] for eRx and Interaction Alerts* 04/19/2017 Active Plan Of Treatment No Information Insurance Providers Payer Name Payer Address Payer Phone Subscriber Number Group Number Insured Name Patient Relationship to Insured Coverage Start Date Coverage End Date [employer] CLAIMS [address] [address] [place], [place] [id number] GILBERT RUSHING Self - patient is the insured
--- OUTSIDE RECORDS SUMMARY | 2024-11-07 09:27 | XMS_ITS | Encounter Summary ---
Author Organization [facility] Address [address] [place] [address] Care Team Providers Care Extension Worker Name Role Phone Elvira Velarde MD Primary Care Provider Jossue mejía Reason for Visit * Reason Comments Medication Refill Encounter Details Date Type Department Care Team (Late st Contact Info) Description 01/28/2015 Refill [facility]olesterol [facility] Metabolism Zach [address] [place] [address] [place] [address] Heydi Stoll PA-C [address] [place] [address] [place] [id number] Medication Refill Social History Tobacco Use Types Packs/Day Years Used Date Smoking Tobacco: Never Smokeless Tobacco: Never Alcohol Use Standard Drinks/Week Comments No 0 (1 standard drink = 0.6 oz pur e alcohol) Comments No Sex and Gender Information Value Date Recorded Sex Assigned at Not on file Legal Sex Female 11:42 PM EST Gender Identity Not on file Sexual Orientation Not on file documented as of this encounter Plan of Treatment Not on file documented as of this encounter Visit Diagnoses Not on filedocumented in this encounter Care Teams Extension Worker Relationship Specialty Start Date End Date Elvira Velarde MD PCP - General Family Medicine 5/3/17 documented as of this encounter
--- OUTSIDE RECORDS SUMMARY | 2024-11-07 09:27 | XMS_ITS | Clinical Summary ---
Author Organization [facility] Address [address] [place] [address] Care Team Providers Care Php Engineer Name Role Phone Nonstaff, Referring MD Primary Care Provider [phone] Prashant Barnes MD Unavailable [phone] Allergies Active Allergy Reactions Criticality Noted Date Comments Ciprofloxacin Other (See Comments) 03/02/2010 Itching inner ears-persistant with infusion today preop even with decreased rate Codeine Nausea Only 12/21/2007 weakness Lisinopril 03/21/2013 Morphine Other (See Comments) 10/07/2017 Tremors/convulsions Naproxen 03/21/2013 Sulfa (Sulfonamide Antibiotics) Nausea Only 12/21/2007 Weakness Medications tamsulosin (FLOMAX) 0.4 mg PO sustained release capsule Take 1 Cap by mouth nightly bedtime. 30 3 8 Active Additional Information Patient not taking.Reported on 10/07/2017 solifenacin (VESICARE) 5 mg PO Tab Take 5 mg by mouth every evening. Active rosuvastatin (CRESTOR) 10 mg PO Tab Take 10 mg by mouth every evening. Active Fenofibric Acid (TRILIPIX) 135 mg PO CpDR Take by mouth every morning. Active aspirin 81 mg PO TbEC Take 81 mg by mouth daily. Active levothyroxine (SYNTHROID) 75 mcg PO tablet Take 75 mcg by mouth every morning. Active estradiol (ESTRACE) 0.01 % (0.1 mg/g) VA CreaIndications :Urgency of urination Insert 2 g into vagina. Insert 2 grams vaginally every week. 42.5 g 11 0 Active Additional Information Patient not taking.Reported on 10/07/2017 amLODIPine (NORVASC) 10 mg PO tablet Take 10 mg by mouth daily. Active calcium-choleca lciferol, D3, 250-125 mg-unit PO Tab Take by mouth daily. Active estradiol (ESTRACE) 0.01 % (0.1 mg/gram) Cream Patient to insert 2 grams into vagina weekly. 135 g 3 5 Active metoprolol succinate (TOPROL) 50 mg Tablet Sustained Release 24 hr Take 50 mg by mouth daily. Active hyoscyamine (ANASPAZ, LEVSIN) 0.125 mg tablet Take 0.125 mg by mouth every 4 hours as needed for Cramping. Active ERGOCALCIFEROL, VITAMIN D2, (VITAMIN D PO) Take by mouth. Active atorvastatin (LIPITOR) 40 mg Tablet Take 40 mg by mouth nightly at bedtime. Active Fenofibrate 160 mg Tablet Take 160 mg by mouth daily. Active fluticasone (FLONASE) 50 mcg/actuation nasal spray Hawkins 1 Hawkins into nose daily. Active omeg3/dha/epa/f antonia oil/L.casei (RESTORA PO) Take by mouth. Ac tive Cefdinir (OMNICEF) 300 mg capsule Take 1 Cap by mouth every 12 hours. 42 Cap 9 Active Additional Information Patient not taking.Reported on 12/28/2022 candesartan (ATACAND) 16 mg Tablet Take by mouth every evening. 3 Active carvediloL (COREG) 12.5 mg Tablet Take 12.5 mg by mouth. 3 Active DULoxetine (CYMBALTA) 60 mg Capsule, Delayed Release(E.C.) Take 60 mg by mouth 2 times daily. Active clonazePAM (KlonoPIN) 0.5 mg tablet Take 0.5 mg by mouth. Active inclisiran sodium (LEQVIO SC) by Subcutaneous route. Active Active Problems Problem Noted Date Diagnosed Date Compression fracture of L2 l umbar vertebra, closed, initial encounter ([facility]) 12/28/2022 DDD (degenerative disc disease), lumbar 12/29/19 23 Spinal stenosis, lumbar orion on, with neurogenic claudication 12/28/2022 Urgency of urination 03/17/2010 Postmenopausal atrophic vaginitis 03/17/2010 Family History Medical History Relation Name Comments Cancer Brother 1 Cancer Brother 2 Heart Problems Father [place] Hypertension Father Stroke Mother Cancer Sister Hypertension Sister Anesthesia Complications Neg Hx Relation Name Status Comments Brother 1 Brother 2 Father Mother Sister Social History Tobacco Use Types Packs/Day Years Used Date Smoking Tobacco: Never Tobacco Cessation:Counseling Given: Not Answered Alcohol Use Standard Drinks/Week Comments No 0 (1 standard drink = 0.6 oz pur e alcohol) Comments No Sex and Gender Information Value Date Recorded Sex Assigned at Female 12/28/2022 2:59 PM EDT Legal Sex Female 3:03 PM EST Gender Identity Female 12/28/2022 2:59 PM EDT Sexual Orientation Straight 12/28/2022 2: 59 PM EDT Last Filed Vital Signs Vital Sign Reading Time Taken Comments Blood Pressure 135/84 03/02/2010 12:15 PM EDT Pulse 63 03/02/2010 12:15 PM EDT Temperature 36.8 C (98.2 F) 03/02/2010 12:15 PM EDT Respiratory Rate 16 07/03/2015 11:10 AM EST Oxygen Saturation 98% 03/02/2010 12:15 PM EDT Inhaled Oxygen Concentration - - Weight 72.1 kg (159 lb) 02/08/2023 1:55 PM EDT Height 165.1 cm (5' 5 ) 02/08/2023 1:55 PM EDT Body Mass Index 26.46 02/08/2023 1:55 PM EDT Plan of Treatment Health Maintenance Due Date Last Done Comments Lipid Monitoring 1961 Hepatitis C Virus (HCV) Screening 1965 Pneumococcal Vaccine: 50+ Years (1 of 1 - PCV) 995 Zoster-RZV(Shingrix) (1 of 2) 1994 Fall Risk Assessment 2009 RSV Vaccines (1 - 1-dose 75+ series) 10/12/2019 Tetanus Vaccination (Every 10 Years) 06/07/20230 09/2013 COVID-19 Vaccine ( season) 2024 Advance Care Planning 05/02/2024 Depression Screening 05/02/2024 Influenza Vaccination (#1) 2024 01/24/2013 Osteoporosis Screening 01/17/2025 01/18/2020 Influenza Vaccination (Yearly) Discontinued 01/24/2013 Insurance HUMANA MEDICARE HUMANA MEDICARE HU[employer]NA MEDICARE Advance Directives For more information, please contact: [phone] * No Code Status (Latest Code Status on File) Date Activated Date Inactivated Comments 07/03/2015 11:28 AM [facility] * Full Code Date Activated Date Inactivated Comments 02/08/2008 2:38 AM 02/08/2008 4:55 PM Care Teams Php Engineer Relationship Specialty Start Date End Date Nonstaff, MD Deshawn [address] [place] [address] (Work) PCP - General Family Medicine 03/20/13 Prashant Barnes MD [address] [place] [address] Urology 05/09/22
--- OUTSIDE RECORDS SUMMARY | 2024-11-07 09:27 | XMS_ITS | Encounter Summary ---
Author Organization [facility] [place] [address] Phone Care Team Providers Care Screen Door Maker Name Role Phone Janet Vogt MD Primary Care Provider [phone] Encounter Details Date Type Department Care Team ([facility] st Contact Info) Description 07/22/2022 Discharge Call Center Patient Call Center [address] [place] [address] Social History Tobacco Use Types Packs/Day Years Used Date Smoking Tobacco: Never Smokeless Tobacco: Never Alcohol Use Standard Drinks/Week Comments Never 0 (1 standard drink = 0.6 oz pur e alcohol) Comments Unknown Sex and Gender Information Value Date Recorded Sex Assigned at Not on file Legal Sex Female 9:43 PM EDT Gender Identity Female 10/08/2022 11:09 AM EDT Sexual Orientation Not on file COVID-19 Exposure Response Date Recorded In the last 10 days, have yo u been in contact with someone who was confirmed or suspected to have Coronavirus/COVID-19? No / Unsure 07/22/2022 9:50 AM EDT documented as of this encounter Functional Status * Are you deaf or do you have serious difficulty hearing? Answer Date of Assessment Author No 07/19/2022 6:00 PM EDT Jerry Joaquin, Registered Nurse * Are you blind or do you have serious difficulty seeing, even when wearing glasses? Answer Date of Assessment Author No 07/19/2022 6:35 PM EDT Jerry Joaquin, Registered Nurse * Do you have serious difficulty walking or climbing stairs? (5 years old or older) Answer Date of Assessment Author No 07/19/2022 6:00 PM EDT Jerry Joaquin, Registered Nurse * Do you have difficulty dressing or bathing? (5 years old or older) Answer Date of Assessment Author No 07/19/2022 6:00 PM EDT Jerry Joaquin Registered Nurse * Because of a physical, mental, or emotional condition, do you have difficulty doing errands alone such as visiting a doctor???s office or shopping? (15 years old or older) Answer Date of Assessment Author No 07/19/2022 6:00 PM EDT Jerry Joaquin Registered Nurse documented as of this encounter Mental Status * Because of a physical, mental, or emotional condition, do you have serious difficulty concentrating, remembering, or making decisions? (5 years old or older) Answer Entry Date Author No 07/19/2022 6:35 PM EDT Jerry Joaquin Registered Nurse documented in this encounter Plan of Treatment Not on file documented as of this encounter Visit Diagnoses Not on filedocumented in this encounter Care Teams Screen Door Maker Relationship Specialty Start Date End Date Janet Vogt MD PCP - General Family Medicine 07/19/22 documented as of this encounter
--- OUTSIDE RECORDS SUMMARY | 2024-11-07 09:27 | XMS_ITS | Encounter Summary ---
Author Organization [facility] Address [address] [place] [address] Care Team Providers Care Optical Assistant Name Role Phone Nonstaff, Referring Primary Care Provider [phone] Prashant Barnes MD Unavailable [phone] Encounter Details Date Type Department Care Team (Late st Contact Info) Description 12/04/2015 Clinical Update [facility] Physicians - Urology, [place]iddharth [place] Jean [address] [place] [address] [place] [phone] Hyacinth Rios NP [address] [place] [address] [place] [address] [id number] Social History Tobacco Use Types Packs/Day Years Used Date Smoking Tobacco: Never Alcohol Use Standard Drinks/Week Comments No 0 (1 standard drink = 0.6 oz pur e alcohol) Comments No Sex and Gender Information Value Date Recorded Sex Assigned at Female 12/28/2022 2:59 PM EDT Legal Sex Female 3:03 PM EST Gender Identity Female 12/28/2022 2:59 PM EDT Sexual Orientation Straight 12/28/2022 2: 59 PM EDT documented as of this encounter Plan of Treatment Not on file documented as of this encounter Visit Diagnoses Not on filedocumented in this encounter Care Teams Optical Assistant Relationship Specialty Start [place] [address] [place] [address] PCP - General Family Medicine 03/20/13 Prashant Barnes MD [address] [place] [address] Urology 05/09/22 documented as of this encounter
--- OUTSIDE RECORDS SUMMARY | 2024-11-07 09:27 | XMS_ITS | Referral Summary ---
Author Organization [facility] Address [address] [place] [phone] Care Team Providers Care Library Media Specialist Name Role Phone Janet Vogt MD Primary Care Provider [phone] Allergies Active Allergy Reactions Criticality Noted Date Comments Ciprofloxacin Hives High 07/19/2022 Hydromorphone Hcl Other (See Comments) 10/06/19 23 Convulsions and jaw locked Hydralazine Other (See Comments) 07/19/2022 TREMORS Morphine Sulfate Nausea Medium 10/08/2022 Naproxen Other (See Comments) 07/19/2022 TREMORS Medications aspirin 81 MG TBEC Take 81 mg by mouth daily. Active cloNIDine (CATAPRES TTS-1) 0.1 mg/24 hr PTWK 1 patch by Transdermal route once a week. () 2 Active fenofibrate (LOFIBRA) 160 MG TABS Take 160 mg by mouth daily. Active nebivolol (BYSTOLIC) 2.5 MG TABS Take 2.5 mg by mouth daily. 2 Active tamsulosin (FLOMAX) 0.4 MG CAPS Take 0.4 mg by mouth daily. 2 Active ezetimibe (ZETIA) 10 MG TABS Take 10 mg by mouth daily. Active Folinic Acid-Vit B6-Vit B12 4-50-2 MG TABS Take 1 tablet by mouth daily. Active Magnesium Gluconate (MAGNESIUM 27 PO) Take 1 tablet by mouth daily. Active polyethylene glycol (GLYCOLAX,TREMAYNE AX) 17 g PACK Take 17 g by mouth daily as needed. Active rOPINIRole (REQUIP) 0.5 MG TABS Take 1 tablet by mouth 3 (three) times daily. 90 [address] (PROTONIX) 40 MG TBEC Take 1 tablet by mouth 2 (two) times a day. 60 tablet 3 Active levothyroxine (SYNTHROID, LEVOTHROID) 75 MCG TABS Take 1 tablet by mouth daily. 3 Active loperamide (IMODIUM) 2 MG TABSIndications :Functional diarrhea Take 1 tablet by mouth as needed. 30 tablet 1 3 Active polyethylene glycol (TRILYTE) 420 g SOLRIndications :Lower abdominal pain,Functional diarrhea Follow Package Instructions unless otherwise directed by physician. 4000 mL 3 Active famotidine (PEPCID) 10 mg TABS Take 10 mg by mouth 2 (two) times daily. Active amLODIPine (NORVASC) 5 MG TABS Take 5 mg by mouth daily. 3 Active rosuvastatin (CRESTOR) 20 MG TABS Take 20 mg by mouth nightly. 3 Active candesartan (ATACAND) 16 MG TABS SMARTSI Tablet(s) By Mouth Every Evening 3 Active carvedilol (COREG) 12.5 MG TABS Take 12.5 mg by mouth. 3 Active azelastine 0.1% (ASTELIN) 137 mcg/spray nasal spray Use 1 spray in each nostril. 3 Active dicyclomine (BENTYL) 10 MG CAPS Take 1 capsule by mouth 4 (four) times daily as needed. 120 capsule 3 Active Active Problems Problem Noted Date Diagnosed Date Hypertensive urgency 07/19/2022 Hypothyroidism, acquired 07/19/2022 Acute abdominal pain 07/19/2022 Nausea and vomiting 07/19/2022 Social History Tobacco Use Types Packs/Day Years Used Date Smoking Tobacco: Never Smokeless Tobacco: Never Tobacco Cessation:Counseling Given: Not Answered Alcohol Use Standard Drinks/Week Comments Never 0 (1 standard drink = 0.6 oz pur e alcohol) Food Insecurities Answer Date Recorded Worried about running out of food Not on file 05/23/2023 Food Bought Not on file 05/23/2023 Housing/Utilities Answer Date Recorded Worried about losing home Not on file 2023 Stayed outside house Not on file 05/23/2023 Unable to get utilities Not on file 05/23/19 24 Interpersonal Safety Answer Date Record ed Feel physically or emotionally unsafe where curr ently live Not on file 05/23/2023 Harm by anyone Not on file 05/23/2023 Emotionally Harmed Not on file 05/23/2023 Transportation Answer Date Recorded Worried about transportation Not on file Utilities Answer Date Recorded Worried about losing home Not on file 2023 Stayed outside house Not on file 09/03/2023 Unable to get utilities Not on file 09/03/19 24 Comments No Sex and Gender Information Value Date Recorded Sex Assigned at Not on file Legal Sex Female 9:43 PM EDT Gender Identity Female 10/08/2022 11:09 AM EDT Sexual Orientation Not on file Last Filed Vital Signs Vital Sign Reading Time Taken Comments Blood Pressure 144/73 10/08/2022 12:30 PM EDT Pulse 64 10/08/2022 12:30 PM EDT Temperature 36.8 C (98.3 F) 10/08/2022 11:19 AM EDT Respiratory Rate 16 11/22/2022 2:24 PM EDT Oxygen Saturation 97% 10/08/2022 12:30 PM EDT Inhaled Oxygen Concentration - - Weight 73.9 kg (163 lb) 11/22/2022 2:24 PM EDT Height 165.1 cm (5' 5 ) 11/22/2022 2:24 PM EDT Body Mass Index 27.12 11/22/2022 2:24 PM EDT Functional Status * Are you deaf or do you have serious difficulty hearing? Answer Date of Assessment Author No 10/08/2022 11:22 AM EDT Kedar Greer Registered Nurse * Are you blind or do you have serious difficulty seeing, even when wearing glasses? Answer Date of Assessment Author No 10/08/2022 11:22 AM EDT Kedar Greer Registered Nurse * Do you have serious difficulty walking or climbing stairs? (5 years old or older) Answer Date of Assessment Author No 10/08/2022 11:22 AM Kedar Casillas, Registered Nurse * Do you have difficulty dressing or bathing? (5 years old or older) Answer Date of Assessment Author No 10/08/2022 11:22 AM Kedar Casillas Registered Nurse * Because of a physical, mental, or emotional condition, do you have difficulty doing errands alone such as visiting a doctor???s office or shopping? (15 years old or older) Answer Date of Assessment Author No 10/08/2022 11:22 AM Kedar Casillas Registered Nurse Mental Status * Because of a physical, mental, or emotional condition, do you have serious difficulty concentrating, remembering, or making decisions? (5 years old or older) Answer Entry Date Author No 10/08/2022 11:22 AM Kedar Casillas Registered Nurse Plan of Treatment Not on file Insurance Care Teams Library Media Specialist Relationship Specialty Start Date End Date Janet Vogt MD PCP - General Family Medicine 07/19/22
--- OUTSIDE RECORDS SUMMARY | 2024-11-07 09:27 | XMS_ITS | Encounter Summary ---
Author Organization [facility] [address] Care Team Providers Care Side Door Worker Name Role Phone Janet Vogt MD Primary Care Provider Na Ang MD Unavailable [phone] Encounter Details Date Type Department Care Team (Late st Contact Info) Description 07/11/2019 Orders Only [facility] Gastro [facility] [address] [phone] Gerardo Purcell MD [facility] [place] [address] Social History Tobacco Use Types Packs/Day Years Used Date Smoking Tobacco: Never Smokeless Tobacco: Never Alcohol Use Standard Drinks/Week Comments No 0 (1 standard drink = 0.6 oz pur e alcohol) PHQ-2 Answer Date Recorded PHQ-2 Score 0 12/04/2018 Comments No Sex and Gender Information Value Date Recorded Sex Assigned at Not on file Legal Sex Female 7:55 PM EDT Gender Identity Not on file Sexual Orientation Not on file documented as of this encounter Functional Status * Is the person deaf or does he/she have serious difficulty hearing? Answer Date of Assessment Author No 03/14/2019 1:41 PM Adriana Goodejessica Rangel CCMJessica * Is the person blind or does he/she have serious difficulty seeing even when wearing glasses? Answer Date of Assessment Author No 03/14/2019 1:41 PM Adriana Goodejessica Rangel CCMJessica * Does this person have serious difficulty walking or climbing stairs? Answer Date of Assessment Author No 03/14/2019 1:41 PM Adriana Goode clint Rangel CCMJessica * Does this person have difficulty dressing or bathing? Answer Date of Assessment Author No 03/14/2019 1:41 PM Adriana Goode clint Rangel CCMJessica * Because of a physical, mental or emotional condition, does this person have difficulty doing errands alone such as visiting a doctor's office or shopping? Answer Date of Assessment Author No 03/14/2019 1:41 PM Adriana Goode clint Rangel CCMJessica documented as of this encounter Mental Status * Because of a physical, mental or emotional condition, does this person have serious difficulty concentrating, remembering or making decisions? Answer Entry Date Author No 03/14/2019 1:41 PM Adriana Goode CHRIS Kat documented in this encounter Plan of Treatment Upcoming Encounters Date Type Department Care Team (Late st Contact Info) Description 08/15/2025 1:40 PM EDT Office Visit [facility] Ophthalmology [facility] [address] [phone] Na Ang MD [address] [phone] documented as of this encounter Goals Goal Patient Goal Type Associated Problems Recent Progress Patient-Stated? Author Blood Pressure < 140/90 Blood Pressure 192/110(10/14 2:39 PM EDT) Yara Huddleston CCMA Maintain a healthy diet, exercise regularly and maintain an ideal body weight General On track( 021 1:52 PM EDT) Yara Huddleston CCMA documented as of this encounter Procedures Procedure Name Priority Date/Time Associated Diagnosis Comments GMED COLONOSCOPY Routine 07/11/2019 12:3 0 PM EDT documented in this encounter Results * GMED COLONOSCOPY (07/11/2019 12:30 PM EDT) 07/11/2019 12:3 0 PM EDT Impressions [facility] - 07/11/2019 1:00 PM EDT Erythema in the distal rectum. (Biopsy). Otherwise normal colonoscopy. Abnormal digital rectal exam (large external hemorrhoids). Plan: No need for further screening colonoscopies due to age. This section is an excerpt of the full report. us Gerardo Rahman MD GI PROCEDURE ORDERABLES Fi nal Result [facility] [address] [place] [address] documented in this encounter Visit Diagnoses Not on filedocumented in this encounter Additional Health Concerns Infection Onset Date Last Indicated Resolved Time COVID-19 Comment:FL [id number]: import to resolve all COVID-19 infections added prior to 03/01/2020 02/21/2020 02/21/2020 03/25/2020 1:4 0 PM EST R/O COVID-19 12/11/2020 12/11/2020 12/11/2020 1:41 PM EDT R/O COVID-19 04/16/2021 04/16/2021 04/17/2021 2:30 PM EST R/O COVID-19 04/28/2022 04/28/2022 04/28/2022 7:12 AM EST INFLUENZA 04/28/2022 04/28/2022 05/06/2022 10:1 2 PM EST Assessment Noted Time A fall risk assessment has been complete d for the patient 09/07/2018 9:25 AM EDT documented as of this encounter Care Teams Side Door Worker Relationship Specialty Start Date End Date Janet Vogt MD [address] [place] [address] PCP - General Family Medicine 12/04/18 03/09/23 Na Ang MD [address] [address] Consulting Physician Ophthalmology 07/10/20 documented as of this encounter
--- OUTSIDE RECORDS SUMMARY | 2024-11-07 09:27 | XMS_ITS | Encounter Summary ---
Author Organization [facility] Address [address] [place] [address] Care Team Providers Care Spray Ii Painter Name Role Phone Elvira Velarde MD Primary Care Provider Jossue mejía Reason for Visit * Reason Comments Medication Refill Encounter Details Date Type Department Care Team (Late st Contact Info) Description 10/18/2017 Refill [facility] Endocrinology & Diabetes [address] [facility] [address] [place] [address] Sid Olmedo MD [address] [place] [address] Medication Refill Social History Tobacco Use Types [...] on filedocumented in this encounter Care Teams Spray Ii Painter Relationship Specialty Start Date End Date Elvira Velarde MD PCP - General Family Medicine 09/01/16 documented as of this encounter
--- OUTSIDE RECORDS SUMMARY | 2024-11-07 09:27 | XMS_ITS | Clinical Summary ---
Author Organization [facility] Address [address] [place] [phone] Care Team Providers Care Export Traffic Department Manager Name Role Phone Janet Vogt MD Primary Care Provider [phone] Allergies Active Allergy Reactions Criticality Noted Date [...] Mass Index 27.12 11/22/2022 2:24 PM EDT Plan of Treatment Health Maintenance Due Date Last Done Comments Hepatitis C Screening 1945 DEXA Scan 2009 RSV Vaccine (60+ or ) (1 - 1-dose 75+ series) 10/12/2019 DTap,Tdap,and Td (2 - Td or Tdap) 06/07/2023 06/07/2013 COVID-19 Vaccine (2 - 2023- season) 2024 11/29/2020 COLONOSCOPY 5 YEARS 10/09/2027 10/08/2022 Pneumococcal 50+ Completed 01/18/2019, 05/2012, 09/30/2009 Colonoscopy Discontinued 10/08/2022 Shingrix Completed 09/22/2023, 04/19/2023 Influenza Vaccine Completed 01/12/2024, , 02/16/2022, Additional history exists HPV Aged Out No longer eligi ble based on patient's age to complete this topic Meningococcal conjugate valent 4 (MCV4) Aged Out No longer eligible based on patient's age to complete this topic RSV Immunization (<20 months) Aged Out No longer eligible based on patient's age to complete this topic Insurance [employer] MEDICARE ALL OTHER Advance Directives * Full Code (Latest Code Status on File) Date Activated Date Inactivated Comments 07/19/2022 10:27 AM 07/20/2022 7:21 PM Care Teams Export Traffic Department Manager Relationship Specialty Start Date End Date Janet Vogt MD PCP - General Family Medicine 07/19/22
--- OUTSIDE RECORDS SUMMARY | 2024-11-07 09:28 | XMS_ITS | Encounter Summary ---
Author Organization Healthcare Address [address] [place] [address] Care Team Providers Care Chair And Couch Maker Name Role Phone Leroy Gordon COATING LINE WORKER Primary Care Provider [phone] Stefan Lennon MD Unavailable [phone] Vikas Green MD Unavailable [phone] Encounter Details Date Type Department Care Team (Late st Contact Info) Description 12/23/2022 Orders Only External Location [address] [place] [address] Leroy Gordon, COATING LINE WORKER [address] [place] [address] Social History Tobacco Use Types Packs/Day Years Used Date Smoking Tobacco: Never Passive Smoke Exposure: Never Smokeless Tobacco: Never Alcohol Use Standard Drinks/Week Comments Never 0 (1 standard drink = 0.6 oz pur e alcohol) Comments Unknown Sex and Gender Information Value Date Recorded Sex Assigned at Not on file Legal Sex Female 8:07 PM EDT Gender Identity Not on file Sexual Orientation Not on file documented as of this encounter Plan of Treatment Upcoming Encounters Date Type Department Care Team (Late st Contact Info) Description 07/05/2025 11:40 AM EST Office Visit [facility] [address] [place] [address] Devin Monahan MD [address] [place] [address] documented as of this encounter Procedures Procedure Name Priority Date/Time Associated Diagnosis Comments OUTSIDE IMAGES 12/23/2022 11:01 AM EDT documented in this encounter Results * MR transfer of outside films (12/23/2022 11:01 AM EDT) Anatomical Region Laterality Modality Magnetic Resonan ce 12/23/2022 11:0 1 AM EDT Leroy Gordon APRN IMG MRI PROCEDURES Final R esult documented in this encounter Visit Diagnoses Not on filedocumented in this encounter Additional Health Concerns Assessment Noted Time A fall risk assessment has been complete d for the patient 12/02/2022 2:04 PM EDT A Body Mass Index follow-up plan has been documented for the patient 12/02/2022 2:35 PM EDT documented as of this encounter Care Teams Chair And Couch Maker Relationship Specialty Start Date End Date Leroy Gordon, HORACE [address] [place] [address] PCP - General 10/07/22 Stefan Lennon MD [address] [place] [phone] Surgeon Neurosurgery 03/01/23 Vikas Green MD [address] [place] [address] Surgeon Neurosurgery 03/30/23 documented as of this encounter
--- OUTSIDE RECORDS SUMMARY | 2024-11-07 09:28 | XMS_ITS | Clinical Summary ---
Author Organization [facility] Address [address] [place] [address] Care Team Providers Care Authorization Nurse Name Role Phone Heidi Leroy Kaufman APRN Primary Care Provider [phone] Stefan Lennon MD Unavailable [phone] Vikas Green MD Unavailable [phone] Allergies Active Allergy Reactions Criticality Noted Date Comments Risedronate Unknown - Patient states they do not know rxn details Low 10/07/2022 Amlodipine Other - please document in the comment field Low 10/07/2022 nausea Cefdinir Other - please document in the comment field Low 04/05/2019 Pt stated that the medication gave her cramps and diarrhea. Ciprofloxacin Hives Medium 10/07/2022 Codeine Unknown - Patient states they do not know rxn details Low 10/07/2022 Evolocumab Swelling High 12/06/2022 Hydralazine Other - please document in the comment field,Palpitations Low 06/15/2018 Seizure activity TREMORS Hydromorphone Other - please document in the comment field Low 10/05/2022 Convulsions and jaw locked Lisinopril Cough Low 10/07/2022 Morphine Other - please document in the comment field Low 10/07/2022 Muscle pain Naproxen Nausea And Vomiting,Other - please document in the comment field Medium 09/24/2011 Also made her feel weak TREMORS Oxycodone-Acetaminophen Nausea 12/11/2020 Sulfa Drugs Unknown - Patient states they do not know rxn details Low 10/07/2022 Tramadol Other - please document in the comment field Low 12/15/2021 Pt states it helps her problem but makes her colon bleed. Medications fluticasone (Flonase) 50 MCG/ACT nasal spray Administer 1 spray into affected nostril(s). Active famotidine (Pepcid) 40 MG tablet 3 Active levothyroxine (Synthroid, Levoxyl) 75 MCG tablet 3 Active fenofibrate (Triglide) 160 MG tablet 3 Active clonazePAM (KlonoPIN) 0.5 MG tablet Take 1 tablet (0.5 mg) by mouth every night. 3 Active DULoxetine (Cymbalta) [address] capsule Take 1 capsule (60 mg) by mouth 1 (one) time each day in the morning. 3 Active albuterol 108 (90 Base) MCG/ACT inhaler 3 Active amLODIPine (Norvasc) 10 MG tabletIndications :Primary hypertension,Esse ntial hypertension Take 1 tablet (10 mg) by mouth daily. 90 tablet 3 5 Active candesartan (Atacand) 16 MG tabletIndications :Primary hypertension,Esse ntial hypertension Take 1 tablet (16 mg) by mouth every evening. 90 tablet 3 5 Active carvedilol (Coreg) 12.5 MG tabletIndications :Primary hypertension,Esse ntial hypertension Take 1 tablet (12.5 mg) by mouth 2 (two) times a day with meals. 180 tablet 3 5 Active Active Problems Problem Noted Date Diagnosed Date Periumbilical abdominal pain 06/22/2024 Gastroesophageal reflux disease 06/22/2024 Primary hypertension 06/22/2024 Encounters Date Type Department Care Team Description 09/19/2024 Telephone [facility] Nephrology, Bone & Mineral Metabolism [address], [address] [place] [address] Corrina Rome, PharmD 08/15/2024 Orders Only [facility] Nephrology, Bone & Mineral Metabolism [address] , [address] [place] [address] Devin Monahan MD Primary hypertension; Essential hypertension from Last 3 Months Immunizations Immunization Administration Dates Next Due Influenza, High-dose, Split Virus, Trivalent, Injectable, preservative free 01/12/2024,01/18/2019 Influenza, Unspecified 02/11/2015,2012,01/28/2011,02/11 Influenza, high-dose, quadrivalent 03/22,02/16/2022,03/17/2021,01/18 Influenza, injectable, quadrivalent 01/30/2018,1 Moderna COVID-19 Vaccine (Re d Cap) 12+ years 11/29/2020 Pneumococcal Conjugate PCV 13 09/30/2009 Pneumococcal Polysaccharide PPV23 01/18/2019 Tdap 06/07/2013 Zoster, Recombinant 09/22/2023,04/19/2023 Social History Tobacco Use Types Packs/Day Years Used Date Smoking Tobacco: Never Passive Smoke Exposure: Never Smokeless Tobacco: Never Tobacco Cessation:Counseling Given: [...] Sign Reading Time Taken Comments Blood Pressure 118/80 06/22/2024 1:06 PM EST Pulse 66 06/22/2024 1:06 PM EST Temperature 36.6 C (97.8 F) 06/22/2024 1:06 PM EST Respiratory Rate 16 06/22/2024 1:06 PM EST Oxygen Saturation 99% 06/22/2024 1:06 PM EST Inhaled Oxygen Concentration - - Weight 68 kg (150 lb) 06/22/2024 1:06 PM EST Height 157.5 cm (5' 2 ) 06/22/2024 1:06 PM EST Body Mass Index 27.44 06/22/2024 1:06 PM EST Plan of Treatment Upcoming Encounters Date Type Department Care Team (Late st Contact Info) Description 07/05/2025 11:40 AM EST Office Visit [facility] [address] [place] [address] Devin Monahan MD [address] [place] [phone] Health Maintenance Due Date Last Done Comments [facility]-Depression Screening 1944 [facility]-/Child/Adol SDOH Screenings 1944 [facility]- SDOH Screenings 1962 [facility]-Adult SDOH Screenings 1962 [facility]-RSV Vaccine: 60+ Years or (1 - 1-dose 75+ series) 10/12/2019 [facility]-Medicare Annual Wellness (AWV) 01/19/2020 01/18/2019 HUS-RIAZD-60 Vaccine (2 - Moderna risk series) 12/27/2020 11/29/2020 [facility]-Bone Density Scan 01/17/2021 01/18/2020 , 01/18/2020, 10/07/2017 [facility]-DTaP,Tdap,and Td Vaccines (2 - Td or Tdap) 06/07/2023 06/07/2013 [facility]-Influenza Vaccine (#1) 12/31/202401/11, 03/22/2023, 02/16/2022, Additional history exists [facility]-Pneumococcal Vaccine: 50+ Years Completed 01/18/2019, 09/30/2009 [facility]-Zoster Vaccines Completed 09/22/2023, [facility]-Obesity Intervention Completed 025, 03/30/2023, 03/14/2023, Additional history exists HPV Vaccines Aged Out No longer eligi ble based on patient's age to complete this topic [facility]-HIB Vaccines Aged Out No longer e ligible based on patient's age to complete this topic [facility]-Hepatitis A Vaccines Aged Out No longer eligible based on patient's age to complete this topic [facility]-IPV Vaccines Aged Out No longer e ligible based on patient's age to complete this topic [facility]-Rotavirus Vaccines Aged Out No lo nger eligible based on patient's age to complete this topic Insurance [employer] MEDICARE Care Teams Authorization Nurse Relationship Specialty Start Date End Date Leroy Gordon APRN [address] [place] [id number] PCP - General 10/07/22 Stefan Lennon MD [address] [facility] [place] [id number] Surgeon Neurosurgery 03/01/23 Vikas Green MD [address] [place] [id number] Surgeon Neurosurgery 03/30/23
--- OUTSIDE RECORDS SUMMARY | 2024-11-07 09:29 | XMS_ITS | Continuity of Care Document ---
Author Organization [facility], [facility] Address [address] [place] [address] Care Team Providers Care Cardiovascular Disease Specialist Name Role Phone EDSON ARIZMENDI Referring Provider Assessment No assessment recorded. Plan of Treatment Reminders Order Date Submit Date Provider Last Modified By Organization Details Last Modified Time Details Appointments None recorded. Lab None recorded. Referral None recorded. Procedures None recorded. Surgeries None recorded. Imaging None recorded. Medication Orders ropinirole 0.25 mg tablet 2024 025 [facility] [id number], [address] [place] [address], [address], 5 11:21:31 Patient TargetsNo targets recorded. Patient InstructionsNo instructions recorded. Reason for Referral None Reported. Results Created Date Observation Date Name Description Value Unit Range Abnormal Flag Note LastModifiedBy Organization Detail LastModifiedTime 10/03/19 25 10/02/2024 XR, knee, 3 view No observ ation record ed. [facility] [address], [place], [address], 10/02/2024 15:58:31 Result Notes None recorded. Problems Name Problem SNOMED Code Status Onset Date Resolution Date Notes Provider Name and Address Organization Details Recorded Time History of polyp of colon 432348114 Active 2017 Leroy Gordon APRN [address], [place], [address] , [facility] 3 13:43:03 Irritable bowel syndrome 03684479 Active 2015 Leroy Gordon, [employer] [address], [place], [address] , [place] - [facility] 3 13:43:15 Osteopenia 727545425 Active 2015 Leroy Gordon APRN [address], [place], [address] , [place] [facility] 3 13:43:18 Acid reflux 287456864 Active 2022 Leslye Chaudhry null, [place] - [facility] 4 12:50:11 Essential hypertension 52429207 Active 2016 Leroy Gordon [employer] [address], [place], [address] , [place] [facility] 3 13:43:01 Acute bronchitis 49223408 Active 2022 Leslye Chaudhry null, [place] - [facility] 4 12:50:11 Hyperlipidemi a 36670247 Active 2016 Leroy Gordon APRN [address], [place], [address] , [place] [facility] 3 13:43:05 Hypothyroidis m 60818238 Active 2016 Leroy Gordon APRN [address], [place], [address] , [place] [facility] 3 13:43:12 Prediabetes 292714755 Active 2016 Leroy Gordon APRN [address], [place], [address] , [place] [facility] 3 13:43:20 Nocturia 571898316 Active 2023 Ree Jagdish, [employer] [address], [place], [address] , [place] [facility] 4 14:22:42 Vitamin D deficiency 57656952 Active 2016 Leroy Gordon [employer] [address], [place], [address] , [place] [facility] 3 13:43:27 Problem Notes None recorded. Procedures Surgical History Date Name Laterality Status Provider Name and Address Organization Details Recorded Time 05/28/19 25 Medication Reconcilliation completed Anika Vaughn [place] - [facility] 05/28/2024 13:39:47 04/26/20 24 In and Out Catheterization completed Ree Dubon APRN [address], [place], [address], [place] - [facility] 04/26/2024 14:24:58 12/08/19 24 [...] completed Ree Dubon APRN [address], [place], [address], [place] - [facility] 05/09/2024 08:51:39 10/09/19 23 Colonoscopy completed Leslye Chaudhry [place] - [facility] 04/26/2024 13:02:58 05/02/19 22 Endoscopy completed Concepcion [place] - [facility] 12/08/2023 10:31:21 06/22/19 19 Medication Reconcilliation completed Fawn Rogers [place] - [facility] 06/22/2018 10:23:26 04/28/20 18 Medication Reconcilliation completed Fawn Rogers [place] - [facility] 04/28/2018 09:48:45 04/11/20 18 Medication Reconcilliation completed Fawn Rogers [place] - [facility] 04/11/2018 14:39:38 02/01/20 18 Date of Last Mammogram completed Leslye Chaudhry [place] - [facility] 04/26/2024 13:00:37 02/01/20 18 Most Recent Mammogram completed Elvira Velarde MD [address], [place], [address], [place] - [facility] 01/31/2018 15:24:08 02/09/20 08 [...] 15:15:17 Hysterectomy, Total Abdominal completed Fawn Rogers [place] - [facility] 05/24/2016 15:15:35 Imaging Results None recorded. Procedure Notes None recorded. Medical Equipment None Reported. Allergies Allergen ID Allergen Name Allergen Category Reaction Reaction Severity Criticality Documentation Date Start Date Code Code System Note Provider Name and Address Organization Details Recorded Time 027707 amlodipin e medicatio n nausea Not available Not available 04/28/2018 18938 RxNorm Elvira Velarde MD [address], [place], [address] [place] - [facility] 8 10:19:28 070935 Repatha medicatio n swelling Not available [facility] 12/14/2022 19862 96 RxNorm Concepcion [place], [place] - [facility] 3 11:14:57 364442 Naprosyn medicatio n Not available Not available Not available 04/26/202420291 2 RxNorm Leslye Chaudhry null, [place] - [facility] 4 12:49:29 132554 prednison e medicatio n Not available Not available Not available 04/26/2024 8640 RxNorm Leslye Chaudhry null, [place] - [facility] 4 12:49:36 90444 lisinopri l medicatio n cough Not available Not available 02/06/20162010 72178 RxNorm React ion: cough ; Not Available [facility] 6 09:08:49 70372 Cipro medicatio n hives Not available Not available 02/06/20162010 42592 3 RxNorm React ion: hives ; Not Available [facility] 6 09:35:17 41513 codeine sulfate medicatio n Not available Not available Not available 02/06/20162008 22182 RxNorm Not Available [facility] 6 10:11:15 68157 Actonel medicatio n Not available Not available Not available 02/06/20162011 01562 3 RxNorm Not Available [facility] 6 10:11:15 13890 Substance with sulfonami de structure and antibacte rial mechanism of action (substanc e) medicatio n Not available Not available Not available 02/06/20162008 76761 8003 SNOMED Not Available [facility] 6 10:11:15 29740 morphine medicatio n myalgias (muscle pain) Not available Not available 09/08/2017 7052 RxNorm shaky all over, pain to neck Elvira Velarde MD [address], [place], [address], [place] - [facility] 8 14:59:58 Medications [...] Disconti nued on: 11/15/19 14 2:17PM;U ser: [email or web address] Not Available Not Available Not Available atorvasta [...] nued on: 10/07/19 13 11:56AM; User: sinai Rubin on: 10/10/19 13;Pharm acyVerif [...] Disconti nued on: 05/30/19 13 5:20PM;U ser: [email or web address] ;Est. Completi on: 03/18/20 12;Indic ation: Proctiti [...] nued on: 11/02/19 14 10:00AM; User: sinai Troy Completi on: 12/26/19 14;Indic ation: Post-Men opausal Osteopor osis - (13.7330 10);Phar macLuthereri fied: 01/30/20 13 9:19PM Not Available Not [...] on: 10/03/19 13 5:00PM;D iscontin ued Status: Discfatoui nukyree on: 01/27/20 13 10:27AM; User: sinai Rubin [...] estepl;I ndicatio n: Hypertri glycerid emia - (1755 ) Not Available Not Available Not Available hyoscyami [...] ser: estepl;I ndicatio n: Hypothyr oidism - (9953 ) Not Available Not Available Not Available [...] ation: Nausea and Vomiting - (16.7870 10);Phar Rachealeri fied: 10/03/19 13 5:00PM Not Available Not [...] Completi on: 10/13/19 12;Indic ation: Pain - (167809 00);Prin bernarda: 09/13/19 12 Not Available Not [...] Not Available Not Available Not Avai labbrianne Myrbetriq 25 mg tablet,ex tended release Take [...] Prescrib ed on: 06/20/19 16 10:40AM; User: deanna ;Est. Rubin on: 10/18/19 16;Pharm acyVerif ied: 06/20/19 10:40AM Not Available Not Available [...] Available Not Available Not Available Fluzone High-Dose 8481-0842 (PF) 180 mcg/0.5 mL intramusc ular syringe [...] Updated DateTime 5 160.02 cm 26.6 kg/m2 55556.8 6 g 61 /min 98 % 98 % 20 /min 144/84 mm[Hg] Con[place]ion [place] - [facility] 10:39:24 Social History Question Answer Notes LastModified by [...] Blood Transfusion Acceptable In An Emergency? Yes [email or web address] Information not available 04/26/2024 What Is Your [...] Type Of Diet Are You Following? REGULAR [email or web address] Information not available 04/26/2024 Which Illicit Or [...] Or The Highest Degree You Have Received? BW19394-7 [email or web address] Information not available 04/26/2024 Swimming/diving Yes Informati on not available 05/24/2016 Have There Been Any Changes To Your Family Or Social Situation? No Information not available 10/15/2022 What Is The Fluoride Status Of Your Home? Fluoridated [email or web address] Information not available 04/26/2024 Hard Of Hearing Or Deaf In One Or Both Ears? No Information not available 05/24/2016 Have You Recently Or Are You Planning To Travel To An Area With Zika Virus? No [email or web address] Information not available 04/26/2024 How Many Years Have You Used Illicit Or Recreational Drugs? 0 Information not available 05/25/2024 Legally Blind In One Or Both Eyes? No Information not available 05/24/2016 Do You Have A Medical Power Of Career Law Clerk? No Information not available 10/15/2022 What Was The Date Of Your Most Recent Tobacco Screening? 06/15/2024 Information not available 06/15/2024 How Many Children Do You Have? 20 Information not available 05/25/2024 Do You Use Protection During Sex? Always [email or web address] Information not available 04/26/2024 Do You Use Protection Against STDs? No Information not available 05/25/2024 What Is Your Relationship Status? Information not available 05/24/2016 Do You Use Your Seat Belt Or Car Seat Routinely? Yes Information not available 05/25/2024 Seat Belts Used Routinely Yes Information not available 05/24/2016 Are You Sexually Active? No None Since [email or web address] Information not available 04/26/2024 Smoke Alarm In Home Yes Information not available 05/24/2016 Do You Have Smoke And Carbon Monoxide Detectors In Your Home? Yes Information not available 10/15/2022 Are You Passively Exposed To Smoke? No Information not available 10/15/2022 Do You Use Sunscreen Routinely? No Information not available 05/25/2024 Has Tobacco Cessation Counseling Been Provided? Yes Information not available 02/23/2023 On What Date Was Tobacco Cessation Counseling Provided? 04/26/2024 [email or web address] Information not available 04/26/2024 Do You Have [...] Because I Am Here For Something Else [email or web address] Information not available 04/26/2024 Do You Have Any Future Plans To Get ? No, I Don't Want To Become [email or web address] Information not available 04/26/2024 Sex: Female Functional [...] available 12/14/2022 What is your status? Not [email or web address] Information no t available 04/26/2024 Are you [...] anxious, or unable to sleep at night)? [id number] [email or web address] Information not available 04/26/2024 Do you have [...] 2023 10:31:08 Brother Chronic obstructive pulmonary disease [email or web address] Not available 04/26 12:54:14 Brother Malignant neoplasm [...] availabl e 12/08/2023 10:31:08 Sister Hypertensive disorder [email or web address] Not available 04/26 12:53:31 Sister Neoplasm of brain stem [email or web address] Not available 05/25 13:23:08 Medical History Condition Response Pancreatitis N Coronary Artery Disease N Gout N Other N Atrial Fibrillation N congenital heart disease N Kidney Stones N Blood Diseases N Hyperthyroidism Y Blood Transfusion N Rheumatoid arthritis N Erectile Dysfunction N amputation N Colonoscopy N Skin Lesions N Depression N COPD N Pneumonia N Incontinence N Murmur N [...] colitis N Cerebrovascular Disease N Depression N Guillain-Doon N Sleep Apnea N Aneurysm N Bronchitis [...] virus, quadrivalent, preservative 7 completed Not Available [facility] 05/19/2019 03:54:44 influenza, unspecified formulation 0 completed Not Available [facility] 04/19/2023 15:39:27 influenza, unspecified formulation 1 completed Not Available [facility] 04/19/2023 15:39:27 influenza, unspecified formulation 3 completed Not Available [facility] 02/09/2016 09:11:04 influenza, unspecified formulation 5 completed Not Available [facility] 04/19/2023 15:39:27 Influenza, high-dose, quadrivalent, PF 3 completed Concepcion [place], [place] - [facility] 03/22/2023 13:46:41 zoster recombinant 3 completed [place], [place] [facility] 04/19/2023 16:07:46 Influenza, split virus, quadrivalent, preservative 8 completed Not Available [facility] 04/19/2023 15:39:27 Influenza, high-dose, quadrivalent, [...] 10:11:59 Tdap 4 completed Con[place]pcion [place], [place] - [facility] 06/29/2022 10:11:59 Pneumococcal conjugate PCV 13 0 completed Con[place]pcion [place], [place] - [facility] 06/29/2022 10:11:59 Influenza, high-dose, trivalent, PF 9 completed [place], [place] [facility] 06/29/2022 10:11:59 zoster recombinant 4 completed Anika Stears null, [place] - [facility] 11/14/2023 14:08:03 Pneumococcal Conjugate, unspecified formulation 3 completed Anika Stears null, [facility] 12/08/2023 13:48:07 Past Encounters Encounter ID Performer Location Encounter Start Date Encounter Closed Date Diagnosis/Indication Diagnosis SNOMED-CT Code Diagnosis ICD10 Code Diagnosis Note [id number] Leroy Gordon [employer] [address] [address] 10/05/2024 08:08:17 10/05/2024 09:28:20 Localized edema 894308152 R60.0 Hypothyroidism 19781159 E03.8 Coronary atherosclerosis 685702910 I25.10 Mixed hyperlipidemia 267 535616 E78.2 Essential hypertension 12535574 [address] Moreno- sent pt to his office to be seen nowif any issues or concerns returnmoni tor bp at home bring in log [id number] Leroy Gordon APRN [address] [address] 10/16/2024 10:16:42 10/16/2024 11:35:48 Restless legs 06888666 G25.81 discussed medif worsen or no improvemen t return Health Concerns Section Related Observation LastModified by Organization Detai ls LastModified Time None Recorded Concern Status LastModified by Organization Details LastModified Time None Recorded Payers Encounter Date Sequence Insurance Name Policy Number Policy Calderon Covered Member ID Calderon Member ID Guarantor Name 10/16/2024 1 [employer] (MEDICARE REPLACEMENT/A DVANTAGE - PPO) Leia Moreira [id number] Leia Moreira Notes Date Note Type Note Provider Name and Address Organization Details Recorded Time 10/16/2024 text/html 79 yr old female presents for possible restless leg syndrome, pt states her legs jump, cont hold them still and quiver all night long. Patient states she has taken ropinirole once before and it worked well. pt states she has had myrtle and they were good Leroy Gordon, [employer] [address], [place], [address], [place] - [facility] 10/16/2024 11:23:53 OBGyn Episode No OBEpisode recorded.
--- OUTSIDE RECORDS SUMMARY | 2024-11-07 09:29 | XMS_ITS | Data Portability ---
Author Organization [facility] Address [address] [place] [address] Care Team Providers Care Damage Inside Adjuster Name Role Phone UGO EDSON Referring Provider Assessment No assessment recorded. Plan of Treatment Reminders Order Date Submit Date Provider Last Modified By Organization Details Last Modified Time Details Appointments None recorded. Lab urinalysis, dipstick 2024 025 [facility], [address] [place] [address], [id number], 5 16:55:03 culture, urine 2024 025 [facility], [address], [place] [address], [place], [address], 5 23:06:43 BMP, serum or plasma 2024 025 [facility], [address], [place] [address], [place], [address], 5 04:06:32 TSH + free T4, serum 2024 025 [facility], [address], [place] [address], [place], [address], 5 04:06:31 hepatic function panel, serum 2024 025 [facility], [address], [place] [address], [place], [address], 5 04:06:32 lipid panel, serum 2024 025 [facility], [address], [place] [address], [place], [address], 5 04:06:33 CBC w/ auto diff 2024 025 [facility], [address], [place] [address], [place], [address], 5 04:06:31 magnesium, serum or plasma 2024 025 [facility], [address], [place] [address], [place], [address], 5 04:06:33 lipid panel, serum 2024 025 [facility], [address], [place] [address], [place], [address], 5 08:10:25 CBC w/ auto diff 2024 025 [facility], [address], [place] [address], [place], [address], 5 08:10:23 hepatic function panel, serum 2024 025 [facility], [address], [place] [address], [place], [address], 5 08:10:24 BMP, serum or plasma 2024 025 [facility], [address], [place] [address], [place], [address], 5 08:10:24 TSH + free T4, serum 2024 025 [facility], [address], [place], [place], [address], 5 08:10:22 magnesium, serum or plasma 2024 025 [facility], [address], [place] [address], [place], [address], 5 08:10:25 urinalysis, dipstick 2024 025 [facility], [address] [place] [address], [id number], 5 10:31:59 culture, urine 2024 025 [facility], [address], [place] [address], [place], [address], 5 02:08:05 Referral None recorded. Procedures None recorded. Surgeries None recorded. Imaging None recorded. Medication Orders cephalexin 500 mg capsule 2024 025 [facility] [id number], [address] [place] [address], [address], 16:08:13 ropinirole 0.25 mg tablet 2024 025 [facility] [id number], [address] [place] [address], [address], 5 11:21:31 cephalexin 500 mg capsule 2024 025 [facility] [id number], [address] [place] [address], [address], 08:14:22 Patient TargetsNo targets recorded. Patient InstructionsNo instructions recorded. Reason for Referral None Reported. Results Created Date Observation Date Name Description Value Unit Range Abnormal Flag Note LastModifiedBy Organization Detail LastModifiedTime 07/28/19 25 07/27/2024 HbA1c (hemo globi n A1c), blood HbA1C 5.4 % Not Available [address], [address], 06/18/2024 10:01:26 08/11/19 25 08/13/2024 UPPER RESPI RATOR Y CULTU RE upper respiratory culture Final report Not Available [facility] ([facility]) [address] [facility], [place], [address], 08/13/2024 23:07:20 08/11/19 25 08/13/2024 UPPER RESPI RATOR Y CULTU RE result 1 COMMEN T Routi ne respi rator y marylou Not Available [facility] ([facility]) [address] [facility], [place], [address], 08/13/2024 23:07:20 08/11/19 25 08/11/2024 TEST CODE OCAMPO E test code change Commen t Pleas e note that the Micro biolo gy test code was ocampo ed to refle ct the speci men sourc e or trans port recei anisha. Not Available [facility] ([facility]) [address] [facility], [place], [address], 08/13/2024 23:07:21 08/11/19 25 08/10/2024 rapid strep group A, throa t Strep negati ve Not Available [address], [address], 08/10/2024 13:20:03 08/11/19 25 08/10/2024 rapid strep group A, throa t Culture Yes Not Available [address], [address], 08/10/2024 13:20:03 08/17/19 25 08/18/2024 URINE CULTU RE, ROUTI NE urine culture, routine Final report Not Available [facility] ([facility]) [address] [facility], [place], [address], 08/18/2024 02:08:03 08/17/19 25 08/18/2024 URINE CULTU RE, ROUTI NE result 1 COMMEN T Cultu re shows less than 10,00 0 colon y formi ng units of bacte shyla per fernie liter of urine . This colon y count is not gener ally consi dered to be clini suman anthony correia. Not Available [facility] ([facility]) [address] [facility], [place], [address], 08/18/2024 02:08:03 08/17/1908/17/2024 ROSY Leslie NOTE please note Commen t The date and/o r time of colle ction was not indic ated on the requi sitio n as requi red by state and shahzad al law. The date of recei pt of the speci men was used as the colle ction date if not suppl ied. Not Available [facility] ([facility]) [address] [facility], [place], [address], 08/18/2024 02:08:05 08/17/1908/16/2024 urina lysis , dipst ick Leukocytes Negati ve Not Available [address], [address], 08/16/2024 09:52:53 08/17/19 25 08/16/2024 urina lysis , dipst ick Nitrite negati ve Not Available [address], [address], 08/16/2024 09:52:53 08/17/19 25 08/16/2024 urina lysis , dipst ick Urobilinogen .2 Not Available [facility] [address], [address], 08/16/2024 09:52:53 08/17/19 25 08/16/2024 urina lysis , dipst ick Protein Negati ve Not Available [address], [address], 08/16/2024 09:52:53 08/17/19 25 08/16/2024 urina lysis , dipst ick pH 6.0 Not Available [address], [address], 08/16/2024 09:52:53 08/17/19 25 08/16/2024 urina lysis , dipst ick Blood Small Not Available [address], [address], 08/16/2024 09:52:53 08/17/1908/16/2024 urina lysis , dipst ick Specific Medinah 1.015 Not Available [address], [address], 08/16/2024 09:52:53 08/17/1908/16/2024 urina lysis , dipst ick Ketone Negati ve Not Available [address], [address], 08/16/2024 09:52:53 08/17/1908/16/2024 urina lysis , dipst ick Bilirubin Negati ve Not Available [address], [address], 08/16/2024 09:52:53 08/17/1908/16/2024 urina lysis , dipst ick Glucose Negati ve Not Available [address], [address], 08/16/2024 09:52:53 08/17/19 25 08/16/2024 urina lysis , dipst ick Appearance Clear Not Available [address], [address], 08/16/2024 09:52:53 08/17/19 25 08/16/2024 urina lysis , dipst ick Color Yellow Not Available [address], [address], 08/16/2024 09:52:53 10/06/19 25 10/06/2024 TSH+F REE T4 TSH 0.222 uIU/m L 0.450- 4.500 below low normal Not Available [facility] ([facility]) [address] [place], [address], 10/06/2024 08:10:22 10/06/1910/06/2024 TSH+F REE T4 T4,free(dire ct) 1.78 NG/dL 0.82-1 .77 above high normal Not Available [facility] ([facility]) [address] [place], [address], 10/06/2024 08:10:22 10/06/1910/06/2024 CBC WITH DIFFE RENTI AL/PL ATELE T WBC 5.2 x10e3 /uL 3.4-10 .8 normal Not Available [facility] ([facility]) [address] [place], [address], 10/06/2024 08:10:23 10/06/19 25 10/06/2024 CBC WITH DIFFE RENTI AL/PL ATELE T RBC 4.33 x10e6 /uL 3.77-5 .28 normal Not Available [facility] ([facility]) [address] [place], [address], 10/06/2024 08:10:23 10/06/1910/06/2024 CBC WITH DIFFE RENTI AL/PL ATELE T hemoglobin 12.7 g/dL 11.1-1 5.9 normal Not Available [facility] ([facility]) [address] [place], [address], 10/06/2024 08:10:23 10/06/19 25 10/06/2024 CBC WITH DIFFE RENTI AL/PL ATELE T hematocrit 38.9 % 34.0-4 6.6 normal Not Available [facility] ([facility]) [address] [place], [address], 10/06/2024 08:10:23 10/06/19 25 10/06/2024 CBC WITH DIFFE RENTI AL/PL ATELE T MCV 90 fL 79-97 normal Not Available [facility] ([facility]) [address] [place], [address], 10/06/2024 08:10:23 10/06/1910/06/2024 CBC WITH DIFFE RENTI AL/PL ATELE T MCH 29.3 pg 26.6-3 3.0 normal Not Available [facility] ([facility]) [address] [place], [address], 10/06/2024 08:10:23 10/06/19 25 10/06/2024 CBC WITH DIFFE RENTI AL/PL ATELE T MCHC 32.6 g/dL 31.5-3 5.7 normal Not Available [facility] ([facility]) [address] [place], [address], 10/06/2024 08:10:23 10/06/19 25 10/06/2024 CBC WITH DIFFE RENTI AL/PL ATELE T RDW 13.0 % 11.7-1 5.4 Not Available [facility] ([facility]) [address] [place], [address], 10/06/2024 08:10:23 10/06/1910/06/2024 CBC WITH DIFFE RENTI AL/PL ATELE T platelets 288 x10e3 /uL 150-45 0 normal Not Available [facility] ([facility]) [address] [place], [address], 10/06/2024 08:10:23 10/06/19 25 10/06/2024 CBC WITH DIFFE RENTI AL/PL ATELE T neutrophils 61 % not estab. normal Not Available [facility] ([facility]) [address] [facility], [place], [address], 10/06/2024 08:10:23 10/06/19 25 10/06/2024 CBC WITH DIFFE RENTI AL/PL ATELE T lymphs 29 % not estab. normal Not Available [facility] ([facility]) [address] [facility], [place], [address], 10/06/2024 08:10:23 10/06/19 25 10/06/2024 CBC WITH DIFFE RENTI AL/PL ATELE T monocytes 9 % not estab. normal Not Available [facility] ([facility]) [address] [facility], [place], [address], 10/06/2024 08:10:23 10/06/19 25 10/06/2024 CBC WITH DIFFE RENTI AL/PL ATELE T eos 0 % not estab. normal Not Available [facility] ([facility]) [address] [facility], [place], [address], 10/06/2024 08:10:23 10/06/19 25 10/06/2024 CBC WITH DIFFE RENTI AL/PL ATELE T basos 1 % not estab. normal Not Available [facility] ([facility]) [address] [facility], [place], [address], 10/06/2024 08:10:23 10/06/19 25 10/06/2024 CBC WITH DIFFE RENTI AL/PL ATELE T immature cells ORTHOPEDICS TEACHER Not Available [facility] ([facility]) [address] [facility], [place], [address], 10/06/2024 08:10:23 10/06/19 25 10/06/2024 CBC WITH DIFFE RENTI AL/PL ATELE T neutrophils (absolute) 3.2 x10e3 /uL 1.4-7. 0 normal Not Available [facility] ([facility]) [address] [facility], [place], [address], 10/06/2024 08:10:23 10/06/19 25 10/06/2024 CBC WITH DIFFE RENTI AL/PL ATELE T lymphs (absolute) 1.5 x10e3 /uL 0.7-3. 1 normal Not Available [facility] ([facility]) [address] [facility], [place], [address], 10/06/2024 08:10:23 10/06/19 25 10/06/2024 CBC WITH DIFFE RENTI AL/PL ATELE T monocytes(ab solute) 0.5 x10e3 /uL 0.1-0. 9 normal Not Available [facility] ([facility]) [address] [facility], [place], [address], 10/06/2024 08:10:23 10/06/19 25 10/06/2024 CBC WITH DIFFE RENTI AL/PL ATELE T eos (absolute) 0.0 x10e3 /uL 0.0-0. 4 normal Not Available [facility] ([facility]) [address] [facility], [place], [address], 10/06/2024 08:10:23 10/06/19 25 10/06/2024 CBC WITH DIFFE RENTI AL/PL ATELE T baso (absolute) 0.1 x10e3 /uL 0.0-0. 2 normal Not Available [facility] ([facility]) [address] [place], [address], 10/06/2024 08:10:23 10/06/19 25 10/06/2024 CBC WITH DIFFE RENTI AL/PL ATELE T immature granulocytes 0 % not estab. Not Available [facility] ([facility]) [address] [facility], [place], [address], 10/06/2024 08:10:23 10/06/19 25 10/06/2024 CBC WITH DIFFE RENTI AL/PL ATELE T immature grans (abs) 0.0 x10e3 /uL 0.0-0. 1 Not Available [facility] ([facility]) [address] [facility], [place], [address], 10/06/2024 08:10:23 10/06/19 25 10/06/2024 CBC WITH DIFFE RENTI AL/PL ATELE T NRBC ORTHOPEDICS TEACHER Not Available [facility] ([facility]) [address] [facility], [place], [address], 10/06/2024 08:10:23 10/06/19 25 10/06/2024 CBC WITH DIFFE RENTI AL/PL ATELE T hematology comments: ORTHOPEDICS TEACHER Not Available [facility] ([facility]) [address] [facility], [place], [address], 10/06/2024 08:10:23 10/06/19 25 10/06/2024 BASIC METAB OLIC PANEL (8) glucose 95 mg/dL 70-99 normal Not Available [facility] ([facility]) [address] [place], [address], 10/06/2024 08:10:24 10/06/19 25 10/06/2024 BASIC METAB OLIC PANEL (8) BUN 20 mg/dL 8-27 normal Not Available [facility] ([facility]) [address] [place], [address], 10/06/2024 08:10:24 10/06/19 25 10/06/2024 BASIC METAB OLIC PANEL (8) creatinine 0.84 mg/dL 0.57-1 .00 normal Not Available [facility] ([facility]) [address] [place], [address], 10/06/2024 08:10:24 10/06/19 25 10/06/2024 BASIC METAB OLIC PANEL (8) eGFR 71 mL/mi n/1.7 3 >59 normal Not Available [facility] ([facility]) [address] [facility] [place], [address], 10/06/2024 08:10:24 10/06/19 25 10/06/2024 BASIC METAB OLIC PANEL (8) BUN/creatini ne ratio 24 12-28 normal Not Available [facility] ([facility]) [address] [facility] [place], [address], 10/06/2024 08:10:24 10/06/19 25 10/06/2024 BASIC METAB OLIC PANEL (8) sodium 142 mmol/ L 134-14 4 normal Not Available [facility] ([facility]) [address] [facility] [place], [address], 10/06/2024 08:10:24 10/06/19 25 10/06/2024 BASIC METAB OLIC PANEL (8) potassium 4.3 mmol/ L 3.5-5. 2 normal Not Available [facility] ([facility]) [address] [facility] [place], [address], 10/06/2024 08:10:24 10/06/19 25 10/06/2024 BASIC METAB OLIC PANEL (8) chloride 107 mmol/ L 96-106 above high normal Not Available [facility] ([facility]) [address] [facility] [place], [address], 10/06/2024 08:10:24 10/06/19 25 10/06/2024 BASIC METAB OLIC PANEL (8) carbon dioxide, total 20 mmol/ L 20-29 normal Not Available [facility] ([facility]) [address] [facility] [place], [address], 10/06/2024 08:10:24 10/06/19 25 10/06/2024 BASIC METAB OLIC PANEL (8) calcium 9.7 mg/dL 8.7-10 .3 normal Not Available [facility] ([facility]) [address] [facility] [place], [address], 10/06/2024 08:10:24 10/06/19 25 10/06/2024 HEPAT IC FUNCT ION PANEL (7) protein, total 7.2 g/dL 6.0-8. 5 normal Not Available [facility] ([facility]) [address] [facility] [place], [address], 10/06/2024 08:10:24 10/06/19 25 10/06/2024 HEPAT IC FUNCT ION PANEL (7) albumin 4.4 g/dL 3.8-4. 8 normal Not Available [facility] ([facility]) [address] [facility] [place], [address], 10/06/2024 08:10:24 10/06/19 25 10/06/2024 HEPAT IC FUNCT ION PANEL (7) bilirubin, total 0.4 mg/dL 0.0-1. 2 normal Not Available [facility] ([facility]) [address] [facility] [place], [address], 10/06/2024 08:10:24 10/06/19 25 10/06/2024 HEPAT IC FUNCT ION PANEL (7) bilirubin, direct 0.21 mg/dL 0.00-0 .40 normal Not Available [facility] ([facility]) [address] [facility] [place], [address], 10/06/2024 08:10:24 10/06/19 25 10/06/2024 HEPAT IC FUNCT ION PANEL (7) alkaline phosphatase 38 IU/L 44-121 below low normal Not Available [facility] ([facility]) [address] [facility] [place], [address], 10/06/2024 08:10:24 10/06/19 25 10/06/2024 HEPAT IC FUNCT ION PANEL (7) AST (SGOT) 20 IU/L 0-40 normal Not Available [facility] ([facility]) [address] [facility] [place], [address], 10/06/2024 08:10:24 10/06/19 25 10/06/2024 HEPAT IC FUNCT ION PANEL (7) ALT (SGPT) 20 IU/L 0-32 normal Not Available [facility] ([facility]) [address] [facility] [place], [address], 10/06/2024 08:10:24 10/06/19 25 10/06/2024 LIPID PANEL cholesterol, total 154 mg/dL 100-19 9 normal Not Available [facility] ([facility]) [address] [place], [address], 10/06/2024 08:10:25 10/06/19 25 10/06/2024 LIPID PANEL triglyceride s 82 mg/dL 0-149 normal Not Available [facility] ([facility]) [address] [place], [address], 10/06/2024 08:10:25 10/06/19 25 10/06/2024 LIPID PANEL HDL cholesterol 59 mg/dL >39 normal Not Available [facility]) [address] [place], [address], 10/06/2024 08:10:25 10/06/19 25 10/06/2024 LIPID PANEL VLDL cholesterol ashley 16 mg/dL 5-40 Not Available [facility] ([facility]) [address] [place], [address], 10/06/2024 08:10:25 10/06/19 25 10/06/2024 LIPID PANEL LDL chol calc ([facility]) 79 mg/dL 0-99 Not Available [facility] ([facility]) [address] [place], [address], 10/06/2024 08:10:25 10/06/19 25 10/06/2024 LIPID PANEL LDL calc comment: ORTHOPEDICS TEACHER Not Available [facility] ([facility]) [address] [place], [address], 10/06/2024 08:10:25 10/06/1910/06/2024 MAGNE SIUM magnesium 2.1 mg/dL 1.6-2. 3 normal Not Available [facility] ([facility]) [address] [place], [address], 10/06/2024 08:10:25 10/26/1910/26/2024 TSH+F REE T4 TSH 0.259 uIU/m L 0.450- 4.500 below low normal Not Available [facility] ([facility]) [address] [facility] [place], [address], 10/26/2024 04:06:31 10/26/1910/26/2024 TSH+F REE T4 T4,free(dire ct) 1.47 NG/dL 0.82-1 .77 normal Not Available [facility] ([facility]) [address] [place], [address], 10/26/2024 04:06:31 10/26/19 25 10/26/2024 CBC WITH DIFFE RENTI AL/PL ATELE T WBC 4.7 x10e3 /uL 3.4-10 .8 normal Not Available [facility] ([facility]) [address] [place], [address], 10/26/2024 04:06:31 10/26/1910/26/2024 CBC WITH DIFFE RENTI AL/PL ATELE T RBC 4.29 x10e6 /uL 3.77-5 .28 normal Not Available [facility] ([facility]) [address] [place], [address], 10/26/2024 04:06:31 10/26/19 25 10/26/2024 CBC WITH DIFFE RENTI AL/PL ATELE T hemoglobin 12.6 g/dL 11.1-1 5.9 normal Not Available [facility] ([facility]) [address] [place], [address], 10/26/2024 04:06:31 10/26/19 25 10/26/2024 CBC WITH DIFFE RENTI AL/PL ATELE T hematocrit 38.9 % 34.0-4 6.6 normal Not Available [facility] ([facility]) [address] [facility], [place], [address], 10/26/2024 04:06:31 10/26/19 25 10/26/2024 CBC WITH DIFFE RENTI AL/PL ATELE T MCV 91 fL 79-97 normal Not Available [facility] ([facility]) [address] [facility], [place], [address], 10/26/2024 04:06:31 10/26/19 25 10/26/2024 CBC WITH DIFFE RENTI AL/PL ATELE T MCH 29.4 pg 26.6-3 3.0 normal Not Available [facility] ([facility]) [address] [facility], [place], [address], 10/26/2024 04:06:31 10/26/19 25 10/26/2024 CBC WITH DIFFE RENTI AL/PL ATELE T MCHC 32.4 g/dL 31.5-3 5.7 normal Not Available [facility] ([facility]) [address] [place], [address], 10/26/2024 04:06:31 10/26/19 25 10/26/2024 CBC WITH DIFFE RENTI AL/PL ATELE T RDW 13.3 % 11.7-1 5.4 Not Available [facility] ([facility]) [address] [place], [address], 10/26/2024 04:06:31 10/26/19 25 10/26/2024 CBC WITH DIFFE RENTI AL/PL ATELE T platelets 275 x10e3 /uL 150-45 0 normal Not Available [facility] ([facility]) [address] [place], [address], 10/26/2024 04:06:31 10/26/19 25 10/26/2024 CBC WITH DIFFE RENTI AL/PL ATELE T neutrophils 72 % not estab. normal Not Available [facility] ([facility]) [address] [facility], [place], [address], 10/26/2024 04:06:31 10/26/19 25 10/26/2024 CBC WITH DIFFE RENTI AL/PL ATELE T lymphs 21 % not estab. normal Not Available [facility] ([facility]) [address] [facility], [place], [address], 10/26/2024 04:06:31 10/26/19 25 10/26/2024 CBC WITH DIFFE RENTI AL/PL ATELE T monocytes 7 % not estab. normal Not Available [facility] ([facility]) [address] [facility], [place], [address], 10/26/2024 04:06:31 10/26/19 25 10/26/2024 CBC WITH DIFFE RENTI AL/PL ATELE T eos 0 % not estab. normal Not Available [facility] ([facility]) [address] [facility], [place], [address], 10/26/2024 04:06:31 10/26/19 25 10/26/2024 CBC WITH DIFFE RENTI AL/PL ATELE T basos 0 % not estab. normal Not Available [facility] ([facility]) [address] [facility], [place], [address], 10/26/2024 04:06:31 10/26/19 25 10/26/2024 CBC WITH DIFFE RENTI AL/PL ATELE T immature cells ORTHOPEDICS TEACHER Not Available [facility] ([facility]) [address] [place], [address], 10/26/2024 04:06:31 10/26/19 25 10/26/2024 CBC WITH DIFFE RENTI AL/PL ATELE T neutrophils (absolute) 3.3 x10e3 /uL 1.4-7. 0 normal Not Available [facility] ([facility]) [address] [place], [address], 10/26/2024 04:06:31 10/26/19 25 10/26/2024 CBC WITH DIFFE RENTI AL/PL ATELE T lymphs (absolute) 1.0 x10e3 /uL 0.7-3. 1 normal Not Available [facility] ([facility]) [address] [facility], [place], [address], 10/26/2024 04:06:31 10/26/19 25 10/26/2024 CBC WITH DIFFE RENTI AL/PL ATELE T monocytes(ab solute) 0.3 x10e3 /uL 0.1-0. 9 normal Not Available [facility] ([facility]) [address] [place], [address], 10/26/2024 04:06:31 10/26/19 25 10/26/2024 CBC WITH DIFFE RENTI AL/PL ATELE T eos (absolute) 0.0 x10e3 /uL 0.0-0. 4 normal Not Available [facility] ([facility]) [address] [place], [address], 10/26/2024 04:06:31 10/26/19 25 10/26/2024 CBC WITH DIFFE RENTI AL/PL ATELE T baso (absolute) 0.0 x10e3 /uL 0.0-0. 2 normal Not Available [facility] ([facility]) [address] [place], [address], 10/26/2024 04:06:31 10/26/19 25 10/26/2024 CBC WITH DIFFE RENTI AL/PL ATELE T immature granulocytes 0 % not estab. Not Available [facility] ([facility]) [address] [place], [address], 10/26/2024 04:06:31 10/26/19 25 10/26/2024 CBC WITH DIFFE RENTI AL/PL ATELE T immature grans (abs) 0.0 x10e3 /uL 0.0-0. 1 Not Available [facility] ([facility]) [address] [facility], [place], [address], 10/26/2024 04:06:31 10/26/19 25 10/26/2024 CBC WITH DIFFE RENTI AL/PL ATELE T NRBC ORTHOPEDICS TEACHER Not Available [facility] ([facility]) [address] [facility], [place], [address], 10/26/2024 04:06:31 10/26/19 25 10/26/2024 CBC WITH DIFFE RENTI AL/PL ATELE T hematology comments: ORTHOPEDICS TEACHER Not Available [facility] ([facility]) [address] [facility], [place], [address], 10/26/2024 04:06:31 10/26/19 25 10/26/2024 BASIC METAB OLIC PANEL (8) glucose 94 mg/dL 70-99 normal Not Available [facility] ([facility]) [address] [place], [address], 10/26/2024 04:06:32 10/26/19 25 10/26/2024 BASIC METAB OLIC PANEL (8) BUN 18 mg/dL 8-27 normal Not Available [facility] ([facility]) [address] [place], [address], 10/26/2024 04:06:32 10/26/19 25 10/26/2024 BASIC METAB OLIC PANEL (8) creatinine 0.95 mg/dL 0.57-1 .00 normal Not Available [facility] ([facility]) [address] [place], [address], 10/26/2024 04:06:32 10/26/19 25 10/26/2024 BASIC METAB OLIC PANEL (8) eGFR 61 mL/mi n/1.7 3 >59 normal Not Available [facility] ([facility]) [address] [facility] [place], [address], 10/26/2024 04:06:32 10/26/19 25 10/26/2024 BASIC METAB OLIC PANEL (8) BUN/creatini ne ratio 19 12-28 normal Not Available [facility] ([facility]) [address] [facility] [place], [address], 10/26/2024 04:06:32 10/26/19 25 10/26/2024 BASIC METAB OLIC PANEL (8) sodium 141 mmol/ L 134-14 4 normal Not Available [facility] ([facility]) [address] [facility] [place], [address], 10/26/2024 04:06:32 10/26/19 25 10/26/2024 BASIC METAB OLIC PANEL (8) potassium 4.4 mmol/ L 3.5-5. 2 normal Not Available [facility] ([facility]) [address] [facility] [place], [address], 10/26/2024 04:06:32 10/26/19 25 10/26/2024 BASIC METAB OLIC PANEL (8) chloride 107 mmol/ L 96-106 above high normal Not Available [facility] ([facility]) [address] [facility] [place], [address], 10/26/2024 04:06:32 10/26/19 25 10/26/2024 BASIC METAB OLIC PANEL (8) carbon dioxide, total 20 mmol/ L 20-29 normal Not Available [facility] ([facility]) [address] [facility] [place], [address], 10/26/2024 04:06:32 10/26/19 25 10/26/2024 BASIC METAB OLIC PANEL (8) calcium 9.9 mg/dL 8.7-10 .3 normal Not Available [facility] ([facility]) [address] [place], [address], 10/26/2024 04:06:32 10/26/19 25 10/26/2024 HEPAT IC FUNCT ION PANEL (7) protein, total 6.4 g/dL 6.0-8. 5 normal Not Available [facility] ([facility]) [address] [facility] [place], [address], 10/26/2024 04:06:32 10/26/19 25 10/26/2024 HEPAT IC FUNCT ION PANEL (7) albumin 4.2 g/dL 3.8-4. 8 normal Not Available [facility] ([facility]) [address] [facility] [place], [address], 10/26/2024 04:06:32 10/26/19 25 10/26/2024 HEPAT IC FUNCT ION PANEL (7) bilirubin, total 0.4 mg/dL 0.0-1. 2 normal Not Available [facility] ([facility]) [address] [facility] [place], [address], 10/26/2024 04:06:32 10/26/19 25 10/26/2024 HEPAT IC FUNCT ION PANEL (7) bilirubin, direct 0.18 mg/dL 0.00-0 .40 normal Not Available [facility] ([facility]) [address] [place], [address], 10/26/2024 04:06:32 10/26/19 25 10/26/2024 HEPAT IC FUNCT ION PANEL (7) alkaline phosphatase 32 IU/L 44-121 below low normal Not Available [facility] ([facility]) [address] [place], [address], 10/26/2024 04:06:32 10/26/19 25 10/26/2024 HEPAT IC FUNCT ION PANEL (7) AST (SGOT) 21 IU/L 0-40 normal Not Available [facility] ([facility]) [address] [place], [address], 10/26/2024 04:06:32 10/26/19 25 10/26/2024 HEPAT IC FUNCT ION PANEL (7) ALT (SGPT) 13 IU/L 0-32 normal Not Available [facility] ([facility]) [address] [place], [address], 10/26/2024 04:06:32 10/26/19 25 10/26/2024 LIPID PANEL cholesterol, total 159 mg/dL 100-19 9 normal Not Available [facility] ([facility]) [address] [place], [address], 10/26/2024 04:06:33 10/26/19 25 10/26/2024 LIPID PANEL triglyceride s 76 mg/dL 0-149 normal Not Available [facility] ([facility]) [address] [place], [address], 10/26/2024 04:06:33 10/26/19 25 10/26/2024 LIPID PANEL HDL cholesterol 66 mg/dL >39 normal Not Available [facility] ([facility]) [address] [place], [address], 10/26/2024 04:06:33 10/26/19 25 10/26/2024 LIPID PANEL VLDL cholesterol ashley 15 mg/dL 5-40 Not Available [facility] ([facility]) [address] [place], [address], 10/26/2024 04:06:33 10/26/19 25 10/26/2024 LIPID PANEL LDL chol calc ([facility]) 78 mg/dL 0-99 Not Available [facility] ([facility]) [address] [place], [address], 10/26/2024 04:06:33 10/26/19 25 10/26/2024 LIPID PANEL 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 3 normal Not Available [facility] ([facility]) [address] [facility], [place], [address], 10/26/2024 04:06:33 11/02/1911/01/2024 urina lysis , dipst ick Leukocytes Negati ve Not Available [address], [address], 11/01/2024 16:03:32 11/02/19 25 11/01/2024 urina lysis , dipst ick Nitrite negati ve Not Available [address], [address], 11/01/2024 16:03:32 11/02/19 25 11/01/2024 urina lysis , dipst ick Urobilinogen .2 Not Available Jim [address], [address], 11/01/2024 16:03:32 11/02/19 25 11/01/2024 urina lysis , dipst ick Protein Negati ve Not Available [address], [address], 11/01/2024 16:03:32 11/02/19 25 11/01/2024 urina lysis , dipst ick pH 6.0 Not Available [address], [address], 11/01/2024 16:03:32 11/02/19 25 11/01/2024 urina lysis , dipst ick Blood Non-He molyze d: Trace Not Available [address], [address], 11/01/2024 16:03:32 11/02/19 25 11/01/2024 urina lysis , dipst ick Specific [place] 1.010 Not Available [address], [address], 11/01/2024 16:03:32 11/02/19 25 11/01/2024 urina lysis , dipst ick Ketone Negati ve Not Available [address], [address], 11/01/2024 16:03:32 11/02/19 25 11/01/2024 urina lysis , dipst ick Bilirubin Negati ve Not Available [address], [address], 11/01/2024 16:03:32 11/02/19 25 11/01/2024 urina lysis , dipst ick Glucose Negati ve Not Available [address], [address], 11/01/2024 16:03:32 11/02/19 25 11/01/2024 urina lysis , dipst ick Appearance Clear Not Available [address], [address], 11/01/2024 16:03:32 11/02/19 25 11/01/2024 urina lysis , dipst ick Color Pale Yellow Not Available [address], [address], 11/01/2024 16:03:32 08/11/19 25 08/10/2024 XR, chest , 2 view No observ ation record ed. [email or web address] [address], [place], [address], 08/13/2024 12:53:16 10/03/19 25 10/02/2024 XR, knee, 3 view No observ ation record ed. [facility] [address], [place], [address], 10/02/2024 15:58:31 Result Notes None recorded. 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 [address], [place], [address] , [place] [facility] 3 13:43:03 Irritable bowel syndrome 32591350 Active 2015 Diliperic tayange, HOUSEKEEPING ROOM INSPECTOR [address], [place], [address] , [place] [facility] 3 13:43:15 Osteopenia 574587714 Active 2015 Diliperic tayange, HOUSEKEEPING ROOM INSPECTOR [address], [place], [address] , [place] [facility] 3 13:43:18 Acid reflux 621743459 Active 2022 Leslye mason, [place] - [facility] 4 12:50:11 Essential hypertension 96531074 Active 2016 Diliperic moe, HOUSEKEEPING ROOM INSPECTOR [address], [place], [address] , [place] [facility] 3 13:43:01 Acute bronchitis 67161279 Active 2022 Leslye mason, [place] - [facility] 4 12:50:11 Hyperlipidemi a 43148792 Active 2016 Diliperic moe, HOUSEKEEPING ROOM INSPECTOR [address], [place], [address] , [place] [facility] 3 13:43:05 Hypothyroidis m 43760013 Active 2016 Diliperic Gordon HOUSEKEEPING ROOM INSPECTOR [address], [place], [address] , [place] [facility] 3 13:43:12 Prediabetes 663885116 Active 2016 Leroy GordonMATHIEUN [address], [place], [address] , [place] - [facility] 3 13:43:20 Nocturia 058069065 Active 2023 Reemarilin Dubon APRN [address], [place], [address] , [place] - [facility] 4 14:22:42 Vitamin D deficiency 74127321 Active 2016 Leroy Gordon 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 Procedures Surgical History Date Name Laterality Status Provider Name and Address Organization Details Recorded Time 05/28/19 25 Medication Reconcilliation completed Anika Vaughn [place] - [facility] 05/28/2024 13:39:47 04/26/20 24 In and Out Catheterization completed Ree Dubon APRN [address], [place], [address], [place] - [facility] 04/26/2024 14:24:58 12/08/19 24 [...] Ree Dubon APRN [address], [place], [address], [place] - [facility] 05/09/2024 08:51:39 10/09/19 23 Colonoscopy completed Leslye Chaudhry [place] - [facility] 04/26/2024 13:02:58 05/02/19 22 Endoscopy completed Concepcion Espana [place] - [facility] 12/08/2023 10:31:21 06/22/19 19 Medication Reconcilliation completed Fawn PINEDA - [facility] 06/22/2018 10:23:26 04/28/20 18 Medication Reconcilliation completed Fawn PINEDA - [facility] 04/28/2018 09:48:45 04/11/20 18 Medication Reconcilliation completed Fawn PINEDA - [facility] 04/11/2018 14:39:38 02/01/20 18 Date of Last Mammogram completed Lesley Chaudhry [place] - [facility] 04/26/2024 13:00:37 02/01/20 18 Most Recent Mammogram completed Elvira Velarde MD [address], [place], [address], [place] - [facility] 01/31/2018 15:24:08 02/09/20 08 Orthopedic Surgery completed Leslye Chaudhyr [place] - [facility] 04/26/2024 13:03:44 02/09/20 08 [...] Name and Address Organization Details Recorded Time 957740 amlodipin e medicatio n nausea Not available Not available 04/28/2018 54287 RxNorm Elvira Velarde MD [address], [place], [address], [place] - [facility] 8 10:19:28 085701 Repatha medicatio n swelling Not available high 12/14/2022 04105 96 RxNorm Concepcion [place], [place] - [facility] 3 11:14:57 027846 Naprosyn medicatio n Not available Not available Not available 04/26/2024 2 RxNorm Leslye Chaud[place]ry [place], [place] - [facility] 4 12:49:29 117022 prednison e medicatio n Not available Not available Not available 04/26/2024 8640 RxNorm Leslye [place]aud[place], [place] - [facility] 4 12:49:36 09826 lisinopri l medicatio n cough Not available Not available 02/06/20162010 48287 RxNorm React ion: cough ; Not Available [facility] 6 09:08:49 72692 Cipro medicatio n hives Not available Not available 02/06/2016201056 3 RxNorm React ion: hives ; Not Available [facility] 6 09:35:17 46793 codeine sulfate medicatio n Not available Not available Not available 02/06/20162008 35916 RxNorm Not Available [facility] 6 10:11:15 03242 Actonel medicatio n Not available Not available Not available 02/06/20162011 94662 3 RxNorm Not Available [facility] 6 10:11:15 32765 Substance with sulfonami de structure and antibacte rial mechanism of action (substanc e) medicatio n Not available Not available Not available 02/06/20162008 03593 8003 SNOMED Not Available [facility] 6 10:11:15 33338 morphine medicatio n myalgias (muscle pain) Not available Not available 09/08/2017 7052 RxNorm shaky all over, pain to neck Elvira Velarde MD [address], [place], [address] , [place] - [facility] 8 14:59:58 Medications Name [...] Disconti nued on: 11/15/19 14 2:17PM;U ser: [facility] Not Available Not Available Not Available atorvasta [...] User: sinai EspitiaEstSiddharth Completi on: 10/10/19 13;Pharm Thien ied: 10/03/19 13 [...] on: 03/18/20 12;Indic ation: Proctiti s - (.[phone]);Prin bernarda: 01/18/20 12 Not Available Not [...] nued on: 11/02/19 14 10:00AM; User: sinai EspitiaEst. Completi on: 12/26/19 14;Indic ation: Post-Men opausal [...] User: sinai ;Est. Completi on: 10/12/19 13;Pharm acyVerif ied: 10/07/19 [...] nued on: 01/27/20 13 10:27AM; User: sinai ;EstSiddharth Elizabethi on: 10/10/19 13;Pharm acyVerif ied: 10/03/19 13 [...] Disconti nued on: 10/03/19 13 4:36PM;U ser: [email or web address] ;Est. Completi on: 07/26/19 13;Indic ation: Bladder [...] day by oral route for 30 days. 04/13 /2023 completed Not Available Not Available Not Available [...] ed on: 06/20/19 16 10:40AM; User: [email or web address] ; Completangel on: 10/18/19 16;Pharm acyVerif ied: 06/20/19 16 [...] Available Not Available Not Available Fluzone High-Dose [id number] (PF) 180 mcg/0.5 mL intramusc ular syringe [...] Updated DateTime 5 160.02 cm 27.1 kg/m2 63429.6 3 g 62 /min 98 % 98 % 18 /min 136/76 mm[Hg] Anika Vaughn [place] - [facility] 5 09:52:45 Date Recorded Body height Body mass index (BMI) Body weight Heart rate Oxygen saturation Oxygen saturation in Arterial blood by Pulse oximetry Respiratory rate Systolic And Diastolic Provider Name and Address Organization Details Last Updated DateTime 5 160.02 cm 26.3 kg/m2 54395.0 7 g 79 /min 98 % 98 % 20 /min 176/88 mm[Hg] Concepcion Espana [place] - [facility] 5 08:25:45 Date Recorded Body height Body mass index (BMI) Body weight Heart rate Oxygen saturation Oxygen saturation in Arterial blood by Pulse oximetry Respiratory rate Systolic And Diastolic Provider Name and Address Organization Details Last Updated DateTime 5 160.02 cm 26.6 kg/m2 65650.8 6 g 61 /min 98 % 98 % 20 /min 144/84 mm[Hg] Concepcion [place] - [facility] 5 10:39:24 Date Recorded Body height Body mass index (BMI) Body weight Heart rate Oxygen saturation Oxygen saturation in Arterial blood by Pulse oximetry Respiratory rate Systolic And Diastolic Provider Name and Address Organization Details Last Updated DateTime 5 160.02 cm 26.6 kg/m2 50219.8 6 g 65 /min 97 % 97 % 18 /min 128/74 mm[Hg] Concepcion [place] - [facility] 5 08:14:51 Date Recorded Body height Body mass index (BMI) Body weight Respiratory rate Oxygen saturation Oxygen saturation in Arterial blood by Pulse oximetry Heart rate Systolic And Diastolic Provider Name and Address Organization Details Last Updated DateTime 5 160.02 cm 27.1 kg/m2 12041.6 3 g 18 /min 98 % 98 % 80 /min 158/82 mm[Hg] Concepcion Mal[place] - [facility] 5 16:02:22 Social History Question Answer Notes LastModified [...] Blood Transfusion Acceptable In An Emergency? Yes [email or web address] Information not available 04/26/2024 What Is Your [...] Type Of Diet Are You Following? REGULAR Information not available 04/26/2024 Which Illicit Or [...] Or The Highest Degree You Have Received? [id number] [email or web address] Information not available 04/26/2024 Swimming/diving Yes Informati on not available 05/24/2016 Have There Been Any Changes To Your Family Or Social Situation? No Information not available 10/15/2022 What Is The Fluoride Status Of Your Home? Fluoridated [email or web address] Information not available 04/26/2024 Hard Of Hearing Or Deaf In One Or Both Ears? No Information not available 05/24/2016 Have You Recently Or Are You Planning To Travel To An Area With Zika Virus? No [email or web address] Information not available 04/26/2024 How Many Years Have You Used Illicit Or Recreational Drugs? 0 Information not available 05/25/2024 Legally Blind In One Or Both Eyes? No Information not available 05/24/2016 Do You Have A Medical Power Of Emergency Services Professional? No Information not available 10/15/2022 What Was The Date Of Your Most Recent Tobacco Screening? 06/15/2024 Information not available 06/15/2024 How Many Children Do You Have? 20 Information not available 05/25/2024 Do You Use Protection During Sex? Always [email or web address] Information not available 04/26/2024 Do You Use Protection Against STDs? No Information not available 05/25/2024 What Is Your Relationship Status? Information not available 05/24/2016 Do You Use Your Seat Belt Or Car Seat Routinely? Yes Information not available 05/25/2024 Seat Belts Used Routinely Yes Information not available 05/24/2016 Are You Sexually Active? No None Since [email or web address] Information not available 04/26/2024 Smoke Alarm In Home Yes Information not available 05/24/2016 Do You Have Smoke And Carbon Monoxide Detectors In Your Home? Yes Information not available 10/15/2022 Are You Passively Exposed To Smoke? No Information not available 10/15/2022 Do You Use Sunscreen Routinely? No Information not available 05/25/2024 Has Tobacco Cessation Counseling Been Provided? Yes [email or web address] Information not available 02/23/2023 On What Date Was Tobacco Cessation Counseling Provided? 04/26/2024 [email or web address] Information not available 04/26/2024 Do You Have Difficulty Walking Or Climbing Stairs? No Information not available 05/24/2016 What Contraceptive Method Was Reported At Start Of This Visit? Female Sterilization [email or web address] Information not available 04/26/2024 Do You Want To Talk About Contraception Or Prevention During Your Visit Today? No - I Do Not Want To Talk About Contraception Today Because I Am Here For Something Else [email or web address] Information not available 04/26/2024 Do You Have Any Future Plans To Get ? No, I Don't Want To Become [email or web address] Information not available 04/26/2024 Sex: Female Functional [...] available 12/14/2022 What is your status? Not [email or web address] Information no t available 04/26/2024 Are you [...] anxious, or unable to sleep at night)? [id number] [email or web address] Information not available 04/26/2024 Do you have [...] availabl e 12/08/2023 10:31:08 Sister Hypertensive disorder [email or web address] Not available 04/26 12:53:31 Sister Neoplasm of [...] colitis N Cerebrovascular Disease N Depression N Guillain-[place] N Sleep Apnea N Aneurysm N Bronchitis [...] virus, quadrivalent, preservative 7 completed Not Available [facility] 05/19/2019 03:54:44 influenza, unspecified formulation 0 completed Not Available [facility] 04/19/2023 15:39:27 influenza, unspecified formulation 1 completed Not Available [facility] 04/19/2023 15:39:27 influenza, unspecified formulation 3 completed Not Available [facility] 02/09/2016 09:11:04 influenza, unspecified formulation 5 completed Not Available [facility] 04/19/2023 15:39:27 Influenza, high-dose, quadrivalent, PF 3 completed Concepcion [place] [facility] 03/22/2023 13:46:41 zoster recombinant 3 completed Con[place]pc[place] [facility] 04/19/2023 16:07:46 Influenza, split virus, quadrivalent, preservative 8 completed Not Available [facility] 04/19/2023 15:39:27 Influenza, high-dose, quadrivalent, PF 2 completed [place]pcion [place] [facility] 06/29/2022 10:11:59 Influenza, high-dose, quadrivalent, PF 1 completed [place] [facility] 06/29/2022 10:11:59 COVID-19, mRNA, LNP-S, PF, 100 mcg/0.5mL dose or 50 mcg/0.25mL dose 1 completed Concepcion [place], [place] - [facility] 06/29/2022 10:11:59 pneumococcal polysaccharide PPV23 9 completed Concepcion [place], [place] - [facility] 06/29/2022 10:11:59 Tdap 4 completed Concepcion E[place]a null, [facility] 06/29/2022 10:11:59 Pneumococcal conjugate PCV 13 0 completed Concepcion E[place]a null, [facility] 06/29/2022 10:11:59 Influenza, high-dose, trivalent, PF 9 completed Concepcion E[place]a null, [facility] 06/29/2022 10:11:59 zoster recombinant 4 completed Anika Johana null, [facility] 11/14/2023 14:08:03 Pneumococcal Conjugate, unspecified formulation 3 completed Anika Stears null, [facility] 12/08/2023 13:48:07 Past Encounters Encounter ID Performer Location Encounter Start Date Encounter Closed Date Diagnosis/Indication Diagnosis SNOMED-CT Code Diagnosis ICD10 Code Diagnosis Note [id number] Elvira Velarde MD [address] [place] [address] 05/24/2016 14:52:01 05/24/2016 15:36:17 Irritable bowel syndrome 02544234 K58.9 Heartburn 10172160 R12 [id number] Elvira Velarde MD [address] [place] [address] 07/27/2016 14:54:03 07/27/2016 15:34:56 Irritable bowel syndrome 41277739 K58.9 Adenomatou s polyp of colon 698998118 D12.6 [id number] Elvira Velarde MD [address] [place] [address] 08/19/2016 14:54:57 08/19/2016 15:47:03 Dysuria 18176614 R30.0 Degenerati on of lumbosacral intervertebral disc 46608640 M51.37 Hypothyroidism 60069741 E03.9 Hyperlipidemia 85294640 E78.5 Prediabetes 800411439 R7 3.03 Essential hypertension 64106936 I10 Fatigue 34041485 R53.83 Hyperglycemia 01946186 R 73.9 Muscle pain 14012716 M79 .1 Neuropathy 327658053 G62 .9 Vitamin D deficiency 347 45371 E55.9 Backache w ith radiating pain 073307268 M54.9 [id number] Dre Issa MD [address] [place] [address] 02/01/2017 09:35:32 02/01/2017 10:50:48 Administration of influenza vaccine 98183227 Z23 [id number] Elvira Velarde MD [address] [place] [address] 05/31/2017 12:50:59 05/31/2017 13:26:16 Acute sinusitis 97576857 J01.90 [id number] Elvira Velarde MD [address] [place] [address] 06/03/2017 10:17:44 06/03/2017 10:42:58 Acute bronchitis 70328622 J20.9 [id number] Elvira Velarde MD [address] [place] [address] 09/08/2017 14:41:43 09/08/2017 15:22:23 Irritable bowel syndrome 30420848 K58.9 History of polyp of colon 643453850 Z86.010 Essential hypertension 20524718 I10 Hyperlipidemia 50027091 E78.5 [id number] Elvira Velarde MD [address] [place] [address] 04/07/2018 11:24:51 04/07/2018 13:06:54 Essential hypertension 89395553 I10 Prediabetes 962679718 R7 3.03 Hypothyroidism 42051696 E03.9 Hyperlipidemia 03692755 E78.5 Irritable bowel syndrome 67620313 K58.9 [id number] Elvira Velarde MD [address] [place] [address] 04/11/2018 14:30:57 04/11/2018 15:55:30 Essential hypertension 78262590 I10 uncontroll ed Atypical chest pain 1025 64841 R07.89 [id number] Elvira Velarde MD [address] [place] [address] 04/28/2018 09:25:47 04/28/2018 10:35:07 Essential hypertension 68903886 I10 uncontroll ed Labile hyp ertension due to being in a clinical environment 905561763 I15.8 [id number] Elvira Velarde MD [address] [place] [address] 06/22/2018 10:09:42 06/22/2018 11:24:51 Hypothyroidism 68965183 E03.9 following with endo Essential hypertension 97621819 I10 uncontroll ed Nausea 812711548 R11.0 Hyperlipidemia 61405249 E78.5 [id number] Elvira Velarde MD [address] [place] [address] 07/14/2018 10:40:03 07/14/2018 11:23:42 Essential hypertension 79480558 I10 uncontroll ed [id number] Leroy Gordon [address] [address] 06/29/2022 09:52:19 06/29/2022 10:56:39 Acute maxillary sinusitis 36134272 J01.00 [id number] Leroy Gordon [address] [address] 07/27/2022 11:05:40 07/27/2022 12:20:57 Essential hypertension 37854525 I10 Acute urin teresa tract infection 823050887 N39.0 return 3 days after finishing antibiotic s for new ua with cx [id number] Leroy Gordon [address] [address] 08/12/2022 10:17:05 08/12/2022 11:24:03 Acute left otitis media 678355354 H66.92 [id number] Leroy Gordon [address] [address] 10/15/2022 11:32:49 10/15/2022 12:22:41 Tight chest 45919905 R07.89 Essential hypertension 04804426 I10 discussed with juanito ramachandran sent to his office for eval- received call from [facility] pt was sent to ed due to vomiting, per er staff she was placed on drip and is admitted to [facility] for eval [id number] Leroy Gordon [address] [address] 10/18/2022 10:28:44 10/18/2022 11:21:12 Hypertensive disorder 97748821 I10 [id number] Leroy Gordon [address] [address] 10/21/2022 11:17:12 10/21/2022 14:06:56 Essential hypertension 03531797 I10 discussed with juanito ramachandran sent to his office for eval- received call from [facility] pt was sent to ed due to vomiting, per er staff she was placed on drip and is admitted to [facility] for eval Hyperlipidemia 70872221 E78.5 pt instructed on how to give injections to self. Difficulty sleeping 3013 [address]2909 Z72.820 advised to try unisom otc. [id number] Leroy Gordon [address] [address] 11/01/2022 13:41:22 11/01/2022 15:33:16 Bilateral cramp of muscle of lower limbs 0323106608 4511631 R25.2 Dizzy spells 084392229 R 42 follow up with neurology, cardiology , and eye [id number] Roderick Arreaga [address] [address] 11/08/2022 10:53:43 11/08/2022 11:10:35 [id number] Patricejessica Gordon [address] [address] 12/14/2022 10:53:11 12/14/2022 12:03:43 Low back pain 662827918 M54.50 follow up with surgeon on 12/28[facility] [id number] Brandon Ballard PA-C [facility] [address] [place] [address] 02/23/2023 11:01:02 02/23/2023 12:06:46 Body mass index 25-29 - overweight 200618400 Z68.26 Overweight 394112615 E66 .3 Acute bronchitis 8199742 2 J20.9 Discussed supportive care with patient. Advised to drink plenty of fluids and fluids containing electrolyt es. Try to get plenty of rest. Can take OTC pain medication such as tylenol or ibuprofen (dosed based on weight for pediatric patients) as needed to relieve fever, headache, or body aches. If patient should get worse call clinic or go to emergency room. Discussed expected course and cautioned signs and sxs to seek further treatment. [id number] Patricejessica moe [address] [address] 03/22/2023 10:56:20 03/22/2023 11:43:02 Influenza vaccine needed 9782290741 106 Z23 [id number] [facility] [address] 04/19/2023 15:38:41 04/19/2023 17:18:44 Active or passive immunization 457675995 Z23 [id number] Leroy Hernandezmoe [address] [address] 07/08/2023 13:19:15 07/08/2023 14:18:26 Acute upper respiratory infection 62815863 J06.9 no sign of a bacterial infection. likely viral. viruses can take 7-14 days to run their course. nasal saline and bulb syringe to remove nasal drainage to help with congestion . monitor temp. Tylenol or Motrin as needed for pain or fever. encourage fluids, water, Gatorade, power aide, Pedialyte if infant/tod dler/child warm salt water gargles warm fluids sore throat lozenges sleep elevated humidifier /vaporizer follow up immediatel y for new or worsening symptoms or no noticeable improvemen t over the next 48-72 hours [id number] Leroy Gordon [address] [address] 11/14/2023 13:45:50 11/14/2023 16:08:11 Pharyngitis 647576181 J02.9 Acute left otitis media 651158584 H66.92 [id number] Leroy Gordon [address] [address] 12/08/2023 09:46:51 12/08/2023 11:12:29 Adult health examination 991992502 Z00.00 Depression screening 171 548770 Z13.31 A depression screening was completed via a standardiz ed screening tool. 5 minutes were spent discussing depression screening results and risk factors. Examinatio n of blood pressure 917063780 Z01.30 Diet education 46440499 Z71.3 Counseling 339452954 Z71 .82 Exercise counseling . Patient encouraged to exercise 30 minutes 5 days a week. At [facility] ed risk for falls 721128009 Z91.81 STEADI FAST screening score of _6____. Advance care planning 71 3100620 Z71.89 Finding of body mass index 153031694 Z68.25 Body mass index 25-29 - overweight 689040190 Z68.25 25.2 Overweight 922390672 E66 .3 Hypothyroidism 51918095 E03.9 Cramp 45396507 R25.2 [id number] Leroy Gordon [address] [address] 12/15/2023 09:56:00 12/15/2023 11:11:25 Acid reflux 110409732 K21.9 Pain of le ft knee joint 6161331405 22065 M25.562 follow up with ortho Chest pain 68579816 R07. 9 follow up with cardiology - [id number] Brandon Ballard PA-C [facility] [address] [place] [address] 12/28/2023 15:07:20 12/28/2023 17:45:26 Cough 65756161 R05.9 bromfed: space dose with clonazepam , not taking cyclobenza harrison Pharyngitis 763552014 J0 2.9 Upper resp iratory infection 25909177 J06.9 Discussed supportive care with patient. Advised to drink plenty of fluids and fluids containing electrolyt es. Try to get plenty of rest. Can take OTC pain medication such as tylenol or ibuprofen (dosed based on weight for pediatric patients) as needed to relieve fever, headache, or body aches. If patient should get worse call clinic or go to emergency room. Discussed expected course and cautioned signs and sxs to seek further treatment. [id number] [place] [address]64[address] 01/06/2024 08:27:52 01/06/2024 09:13:31 Spasm 44314364 R25.2 Vitamin D deficiency 347 95495 E55.9 [id number] [facility] [address] [address] 03/23/2024 08:18:07 03/23/2024 09:21:36 Hyperlipidemia 74187407 E78.5 Hypothyroidism 69755516 E03.9 Vitamin D deficiency 347 78681 E55.9 Prediabetes 196552667 R7 3.03 Essential hypertension 33769881 I10 Gastroesop hageal reflux disease 820579188 K21.9 [id number] Leroy Gordon[address] [address] 04/05/2024 11:23:07 04/05/2024 12:01:45 Acute urinary tract infection 893486996 N39.0 return 3 days after finishing antibiotic s for new ua with cx Acute uppe r respiratory infection 58635758 J06.9 no sign of a bacterial infection. likely viral. viruses can take 7-14 days to run their course. nasal saline and bulb syringe to remove nasal drainage to help with congestion . monitor temp. Tylenol or Motrin as needed for pain or fever. encourage fluids, water, Gatorade, power aide, Pedialyte if /tod dler/child warm salt water gargles warm fluids sore throat lozenges sleep elevated humidifier /vaporizer follow up immediatel y for new or worsening symptoms or no noticeable improvemen t over the next 48-72 hours Hypothyroidism 88456810 E03.9 [id number] Leroy Gordon [address] [address] 04/10/2024 09:19:17 04/10/2024 09:53:17 Hypothyroidism 94211347 E03.9 [id number] Leroy Gordon [address] [address] 04/19/2024 11:01:40 04/19/2024 11:48:33 Urge incontinence of urine 43262583 N39.41 Pain in pelvis 34057012 R10.2 [id number] HORACE Mills [employer] [address] [place] [address] [place] [address] 04/26/2024 12:41:18 04/26/2024 14:34:10 Screening for malignant neoplasm of colon 610932252 Z12.11 Increased frequency of urination 849146818 R35.0 Nocturia 255254271 R35.1 [id number] Leroy Gordon [address] [address] 05/25/2024 13:22:59 05/25/2024 14:45:12 Abdominal pain 95527202 R10.9 sent to ed for eval [id number] Leroy Gordon [address] [address] 05/28/2024 13:34:36 05/28/2024 15:25:24 Abdominal pain 52916196 R10.9 discussed proper ways to stop meds and encouraged her to call the md that ordered meds to give proper instructio ns.if symptoms worsen return or go to ed [id number] Leroy Gordon [address] [address] 06/15/2024 10:33:34 06/15/2024 11:34:51 Essential hypertension 90191973 I10 Osteopenia 268498074 M85 .80 Abdominal bloating 12773 9008 R14.0 follow up with gi Abdominal distension, gaseous 626469880 R14.0 [id number] Leroy Gordon [address] [address] 07/10/2024 10:43:08 07/10/2024 11:48:10 Acute laryngitis 4142305 J04.0 if symptoms worsen or no improvemen t returnpt states she can take a steroid shot just not oral. states oral make her feel funny [id number] Leroy Gordon [address] [address] 07/27/2024 13:20:47 07/27/2024 14:15:13 Acute bronchitis 60001749 J20.9 pt states she can take this steroid just cant take prednisone inhalercha nge claritin to allergraif symptoms worsen or do not improve return Seasonal a llergic rhinitis 144010538 J30.2 monitor temp. Tylenol or Motrin as needed for pain or fever. encourage fluids, water, Gatorade, power aide, Pedialyte if /tod dler/child warm salt water gargles warm fluids sore throat lozenges sleep elevated humidifier /vaporizer follow up immediatel y for new or worsening symptoms or no noticeable improvemen t over the next 48-72 hours [id number] Leroy Gordon [address] [address] 08/10/2024 13:15:27 08/10/2024 14:11:02 Pharyngitis 627830105 J02.9 cxstrep negif cx neg will order ct neck Acute cough 7659338695 95782185 R05.1 xray Choking sensation 643661 009 R09.89 [id number] Leroy Gordon [place] [address] 08/16/2024 09:40:13 08/16/2024 10:25:30 Acute urinary tract infection 727226577 N39.0 return 3 days after finishing antibiotic s for new ua with cxincrease fluidscran christopher juicewipe front to backvoid after intercours ollie not hold urineantib iotics as orderedcot ton underwearr eturn if symptoms worsen or do not improve [id number] Leroy Gordon [place] [address] 10/05/2024 08:08:17 10/05/2024 09:28:20 Localized edema 820717779 R60.0 Hypothyroidism 64465054 E03.8 Coronary atherosclerosis 318463568 I25.10 Mixed hyperlipidemia 267 805083 E78.2 Essential hypertension 23848553 I[address] Moreno- sent pt to his office to be seen nowif any issues or concerns returnmoni tor bp at home bring in log [id number] Leroy Gordon [address] [address] 10/16/2024 10:16:42 10/16/2024 11:35:48 Restless legs 29381164 G25.81 discussed medif worsen or no improvemen t return [id number] Leroy Gordon [address] [address] 10/25/2024 08:00:53 10/25/2024 08:45:32 Coronary atherosclerosis 707864287 I25.10 Restless legs 70408064 G 25.81 discussed medif worsen or no improvemen t return [id number] Leroy Grodon [address] [address] 11/01/2024 15:22:37 11/01/2024 16:29:08 Acute urinary tract infection 771929583 N39.0 return 3 days after finishing antibiotic [...] LastModified Time None Recorded Advance Directives Directive Y: Payers Insurance Date Sequence Insurance Name Policy Number Policy Calderon Covered Member ID Calderon Member ID Guarantor Name 11/01/2024 1 [employer] (MEDICARE REPLACEMENT/A DVANTAGE - PPO) Leia Moreira [id number] Leia Moreira 08/16/2016 1 [employer] - CHOICECARE (PPO) Leia Moreira [id number] Leia Moreira Notes Date Note Type Note Provider Name and Address Organization Details Recorded Time 08/16/2024 text/html 78 year old female who presents to the office today with concerns of vaginal irritation, urination delay, urgency,hesitancy , burning for a week Leroy Gordon, HORACE [address], [place], [address], [place] - [facility] 08/16/2024 10:42:28 10/05/2024 text/html 78 yr old female presents [...] it making her feel tired. Leroy Gordon, HOUSEKEEPING ROOM INSPECTOR [address], [place], [address], [place] [facility] 10/05/2024 09:11:00 10/16/2024 text/html 79 yr old female presents for possible restless leg syndrome, pt states her legs jump, cont hold them still and quiver all night long. Patient states she has taken ropinirole once before and it worked well. pt states she has had myrtle and they were good Leroy Gordon APRN [address], [place], [address], [place] - [facility] 10/16/2024 11:23:53 10/25/2024 text/html 79 yr old female presents for lab work for cardiology. pt states she is doing well, requip helped with restless legs Leroy Gordon, HORACE [address], [place], [address], [facility] - [facility] 10/25/2024 08:31:37 11/01/2024 text/html 79 yr old female presents for a possible uti. She has pressure and burning with urination and IBS/diarrhea. denies fever Leroy Gordon APRN [address], [place], [address], [place] - [facility] 11/01/2024 16:19:18 OBGyn Episode No OBEpisode recorded.
--- OUTSIDE RECORDS SUMMARY | 2024-11-07 09:29 | XMS_ITS | Encounter Summary ---
Author Organization [facility] Address [address] [place] [address] Care Team Providers Care Packing Clerk Name Role Phone Leroy Gordon APRN Primary Care Provider [phone] Stefan Lennon MD Unavailable [phone] Vikas Green MD Unavailable [phone] Encounter Details Date Type Department Care Team ([facility] st Contact Info) Description 09/19/2024 Telephone [facility] [address], [address] [place] [address] Corrina Rome, PharmD [address] [place] [address] Social History Tobacco Use Types Packs/Day Years [...] on file documented as of this encounter Miscellaneous Notes * Telephone Encounter - Corrina Rome PharmD - 09/19/2024 3:41 PM EDT Patient reached out to PharmD after cardiology appointment. Patient reports medical nurse switched candesartan 32mg to losartan/hydrochlorothiazide 25/12.5mg daily and she will continue with carvedilol BID. Patient has follow up with medical nurse in 2 weeks. Will defer HTN management to cardiologistat this time to avoid too many changes and confusion. Corrina Rome PharmD, BCACP Clinical Pharmacist Animal Geneticist Float * Telephone Encounter - Corrina Rome PharmD - 09/19/2024 1:06 PM EDT Reached out to patient after receiving voicemail reporting dizziness/fogginess following recent medication changed by cardiology. Patient reports ~1 week ago her medical nurse stopped amlodipine and increased her candesartan to 32 mg daily at visit due to reported concerns that amlodipine was causing leg pain. Patient reports her SBP was running 150-170 until today where it was down to 136. Patient reports she was having a dizziness sensation and fogginess while BP was elevated. Patient was in medical nurse office during call to follow up with provider regarding BP. Discussed will reach back out to patient shortly to follow up on any further changes made by medical nurse and reassess BP control. Corrina Rome PharmD, BCACP Clinical Pharmacist Animal Geneticist Float documented in this encounter Plan of Treatment Upcoming Encounters Date Type Department Care Team (Late st Contact Info) Description 07/05/2025 11:40 AM EST Office Visit [place] [address] [place] [address] Devin Monahan MD [address] [place] [phone] documented as of this encounter Visit Diagnoses Not on filedocumented in this encounter Additional Health Concerns Assessment Noted Time A fall risk assessment has been complete d for the patient 03/14/2023 2:59 PM EST A Body Mass Index follow-up plan has been documented for the patient 06/22/2024 2:21 PM EST documented as of this encounter Care Teams Packing Clerk Relationship Specialty Start Date End Date Leroy Gordon APRN [address] [place] [address] PCP - General 10/07/22 Stefan Lennon MD [address] [place] [address] Surgeon Neurosurgery 03/01/23 Vikas Green MD [address] [address] Surgeon Neurosurgery 03/30/23 documented as of this encounter
--- NOTE | 2024-11-07 09:34 | CT_ITS ---
FINAL REPORT TECHNIQUE: After the administration of intravenous contrast, axial images were obtained through the abdomen and pelvis by computed tomography. This study was performed with technique to keep radiation doses as low as reasonably achievable, (ALARA). Individualized dose reduction techniques using automated exposure control or adjustment of the MA and/or KV according to the patient's size were employed. CLINICAL HISTORY: diffuse vague pain and vomiting COMPARISON: 05/26/2024 FINDINGS: Abdomen: Scarring is seen at the lung bases. Liver is homogeneous. There are few tiny, subcentimeter low-attenuation foci in the liver. There is a 12 mm, hypervascular focus in the posterior right hepatic lobe measuring 11 mm seen on image 33 of series 3. There are benign-appearing splenic cysts. The adrenals are normal. The pancreas is unremarkable. There are benign-appearing renal cysts. A small focus of cortical calcification is seen at the periphery of the left kidney which is likely dystrophic. Kidneys are otherwise unremarkable. The aorta is normal in caliber. There is no free fluid or adenopathy. Pelvis: The appendix is not identified. The urinary bladder is unremarkable. There is no free fluid or adenopathy. 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 Benign-appearing renal and hepatic cysts. Reviewed, Interpreted and Dictated by Jimbo Quintero MD Transcribed by Amparo Aiken Authenticated and [facility]
--- NOTE | 2024-11-07 09:36 | [facility].EDGENADL ---
Discharge Plan Disposition Patient Disposition: Home, Self-Care Prescriptions Prescriptions: No Action fluticasone propionate [Flonase Allergy Relief] 50 mcg/actuation spray,suspension 1 spray intranasal DAILY PRN Rx Instructions: administer into each nostril coenzyme Q10 [Co Q-10] 200 mg capsule 200 mg PO DAILY cetirizine [24Hour Allergy] 10 mg tablet 10 mg PO DAILY PRN levothyroxine 88 mcg tablet PO pantoprazole 40 mg tablet,delayed release (DR/EC) PO fenofibrate 160 mg tablet 160 mg PO DAILY amlodipine [Norvasc] 10 mg tablet 10 mg PO DAILY Qty: 30 2RF candesartan 32 mg tablet 32 mg PO DAILY Qty: 30 2RF carvedilol [Coreg] 6.25 mg tablet 6.25 mg PO BID Qty: 180 2RF Rx Instructions: must administer with a meal/food Referrals Follow up/Referrals: Camilla Gordon APRN [Primary Care Provider, Medical] - See instructions Activity Restrictions/Add. Instructions Additional Instructions/Restrictions: At this time it was felt you are safe to be discharged home. If new or worsening symptoms please do not hesitate to return the emergency department. As discussed please take your nausea medicine as prescribed and stop taking your pramipexole as it may have had something to do with your vomiting. Your CT imaging today showed hemangiomas in your liver and some cysts on your liver and kidneys all of which are usually benign just have your family doctor keep an eye on this. Your salt was a little bit low today please follow-up with camilla as discussed so she can repeat your salt level. Clinical Impressions Clinical Impression: Vomiting, Hyponatremia, Hemangioma Instructions Patient Instructions: DI for Acute Abdominal Pain Print Language Print Language: Polish Discharge ED Provider: Duran [facility] Adult HPI General Chief complaint: Abdominal Pain Stated complaint: vomiting, diarrhea, chills, body aches, sweats Time Seen by Provider: 11/07/24 09:20 History of Present Illness HPI narrative: Patient is a 79-year-old female with past medical history of GERD, atypical angina, hypothyroidism, hypertension who presents emergency department for evaluation of abdominal pain. She has had abdominal discomfort and subjective feelings of abdominal swelling, diffuse aches and cramps and associated vomiting and dysuria. There is associated decreased urine output. Onset was acute within the last 7 days. Due to persistent symptoms she presents here for continued evaluation. Please note that above description of symptoms, in this electronic medical record under categorization of recalled from ER triage doctor by RN are reflective of an initial nursing assessment, however, is not reflective of my full history and physical exam that was personally taken and clarified. Consequentially, this preceding description of symptoms, which may include the patient's categorized chief complaint in the EMR, do not reflect my personal clinical impression, and the ultimate description of history of present illness and patient stated complaints should be deferred to this section of the note. Unless stated otherwise or congruent with this section of the note, additional signs, symptoms, or incongruence should be interpreted as inaccurate with my clinical impression. Related Data Home Medications ?Medication ?Instructions ?Recorded ?Confirmed coenzyme Q10 200 mg capsule (Co 200 mg PO DAILY 03/15/24 10/09/24 Q-10) fluticasone propionate 50 1 spray intranasal DAILY PRN 06/26/24 10/09/24 mcg/actuation nasal spray,suspension (Flonase Allergy Relief) cetirizine 10 mg tablet (24Hour 10 mg PO DAILY PRN 09/13/24 10/09/24 Allergy) fenofibrate 160 mg tablet 160 mg PO DAILY 10/05/24 10/09/24 pantoprazole 40 mg tablet,delayed mg PO 10/05/24 10/09/24 release levothyroxine 88 mcg tablet mcg PO 10/09/24 10/09/24 Previous Rx's ?Medication ?Instructions ?Recorded amlodipine 10 mg tablet (Norvasc) 10 mg PO DAILY #30 tabs 10/05/24 candesartan 32 mg tablet 32 mg PO DAILY #30 tabs 10/05/24 carvedilol 6.25 mg tablet (Coreg) 6.25 mg PO BID #180 tabs 10/05/24 Allergies Allergy/AdvReac Type Severity Reaction Status Date / Time ciprofloxacin (From Cipro) Allergy Unknown Unknown Verified 10/09/24 15:12 allergy reaction codeine Allergy Unknown Unknown Verified 10/09/24 15:12 allergy reaction lisinopril Allergy Unknown Unknown Verified 10/09/24 15:12 allergy reaction Sulfa (Sulfonamide Allergy Unknown Unknown Verified 10/09/24 15:12 Antibiotics) allergy reaction hydralazine Allergy Verified 10/09/24 15:12 naproxen (From Naprosyn) Allergy Verified 10/09/24 15:12 Opioids - Morphine Analogues Allergy Unknown Verified 10/09/24 15:12 allergy reaction prednisone Allergy Verified 10/09/24 15:12 evolocumab (From Repatha AdvReac Severe Difficulty Verified 10/09/24 15:12 SureClick) Swallowing amlodipine AdvReac Mild edema Verified 10/09/24 15:12 PFSH PFS Disclaimer: The information contained in this section may have been updated after the patient was seen, as this information can be updated by other users. Medical History Other specified hypothyroidism Mixed hyperlipidemia Atypical angina Chronic otitis externa of left ear Eustachian tube dysfunction This is more of a chronic left greater than right ear issue. I do feel it likely relates to allergy seasonal variation. GERD (gastroesophageal reflux disease) Hypothyroidism CAD (coronary artery disease) Osteoporosis HTN (hypertension) Surgical History Hx of tonsillectomy Hx of cholecystectomy History of back surgery Hx of hysterectomy Family History Other Family history of cancer Family history of heart disease Social History Smoking Status: Never smoker alcohol intake: never substance use type: denies use current occupational status: retired Travel in the last 8 weeks?: None Have you lived/traveled outside [place] in past 30 days?: No Contact w/someone who lives/traveled outside [place] past 30 days?: No Exposure to someone with infectious disease in past 14 days?: No Do you have a fever (greater than 100.4 F or 38 C)?: No Have you tested positive for COVID-19?: No Exposed to someone with COVID-19 in past 14 days?: No Do you have a sore throat?: No Do you have a cough?: No Do you have any weakness?: No Do you have any diarrhea?: No Are you experiencing any unusual bleeding?: No Do you have any muscle aches/pain?: No Do you have any abdominal pain?: No Are you experiencing loss of taste or smell?: No Other Medical History Have you received the Flu Vaccine for this season: No Have you received the Pneumonia Vaccine: Yes ROS Obtained: Yes Systems reviewed as appropriate & no additional complaints except as documented Physical Exam General General appearance: alert and in no apparent distress Head Head exam: atraumatic and normocephalic Eye Eye exam: Present PERRL and EOMI ENT ENT exam: Present mucous membranes moist Neck Neck exam: Present normal inspection Chest Chest inspection: Present normal inspection and symmetric chest wall rise Respiratory Respiratory exam: Present normal lung sounds bilaterally; Absent respiratory distress Cardiovascular Cardiovascular exam: Present regular rate and normal rhythm Abdominal Exam Abdominal exam: Present soft and tenderness (Mild, diffuse); Absent guarding or rebound Extremities Exam Extremities exam: Present normal inspection Neurological Exam Neurological exam: Present alert Psychiatric Psychiatric exam: Present normal affect Skin Skin exam: Present warm and dry Medical Decision Making Medical Records Screening: Per USPSTF and CDC recommendations, given the prevalence of disease in our region, it is our hospital?s policy to screen for HIV and viral Hepatitis for all patients aged 18 and over and those with ongoing risk factors. Ernesto Inquiry Pt receiving controlled substance: No Vital Signs: 11/07/24 09:23 11/07/24 09:27 11/07/24 09:29 Temperature 97.9 F Temperature Source Oral Pulse Rate 69 68 Pulse Rate [Left Radial] 74 Respiratory Rate 19 Blood Pressure 210/89 H 181/79 H Blood Pressure [Right Arm] 169/73 H Blood Pressure Mean Blood Pressure Mean [Right Arm] 105 Blood Pressure Source Automatic Cuff Automatic Cuff Blood Pressure Source [Right Arm] Automatic Cuff Blood Pressure Position [Right Arm] Supine 02 Sat by Pulse Oximetry 99 97 96 Oxygen Delivery Method Room Air Room Air Room Air 11/07/24 09:30 11/07/24 09:55 11/07/24 10:04 Temperature Temperature Source Pulse Rate 63 62 64 Pulse Rate [Left Radial] Respiratory Rate Blood Pressure 169/73 H 178/79 H 184/80 H Blood Pressure [Right Arm] Blood Pressure Mean 112 114 Blood Pressure Mean [Right Arm] Blood Pressure Source Automatic Cuff Blood Pressure Source [Right Arm] Blood Pressure Position [Right Arm] 02 Sat by Pulse Oximetry 97 96 97 Oxygen Delivery Method Room Air 11/07/24 10:47 11/07/24 11:00 11/07/24 11:31 Temperature Temperature Source Pulse Rate 70 70 69 Pulse Rate [Left Radial] Respiratory Rate 18 Blood Pressure 179/79 H 198/82 H 156/60 H Blood Pressure [Right Arm] Blood Pressure Mean 92 Blood Pressure Mean [Right Arm] Blood Pressure Source Automatic Cuff Automatic Cuff Blood Pressure Source [Right Arm] Blood Pressure Position [Right Arm] 02 Sat by Pulse Oximetry 98 97 96 Oxygen Delivery Method Room Air Room Air Lab Data Lab Results 11/07/24 09:34: WBC 8.3, RBC 4.43, Hgb 13.2, Hct 37.3, MCV 84.2, MCH 29.8, MCHC 35.4, RDW 12.1, Plt Count 333, MPV 8.7, Neut % (Auto) 69.7, Lymph % (Auto) 19.1, [place] % (Auto) 9.6 H, Eos % (Auto) 0.7, Baso % (Auto) 0.2, Neut # (Auto) 5.8, Lymph # (Auto) 1.6, [place] # (Auto) 0.8, Eos # (Auto) 0.1, Baso # (Auto) 0.0, Sodium 130 L, Potassium 3.9, Chloride 95 L, Carbon Dioxide 26, Anion Gap 12.9, BUN 23 H, Creatinine 0.80, Estimated Creat Clear 48, Estimated GFR 69, Est GFR ( Amer) 84, Glucose 122 H, Calcium 9.2, Magnesium 2.0, Total Bilirubin 0.8, AST 33, ALT 25, Alkaline Phosphatase 42, Troponin I < 0.01, Total Protein 7.1, Albumin 4.2, Globulin 2.9, Albumin/Globulin Ratio 1.4, Lipase 207 11/07/24 09:59: Urine Color Yellow, Urine Appearance Clear, Urine pH 7.5, Ur Specific [place] 1.010, Urine Protein Negative, Urine Glucose (UA) Negative, Urine Ketones Negative, Urine Blood 1+ A, Urine Nitrate Negative, Urine Bilirubin Negative, Urine Urobilinogen 0.2, Ur Leukocyte Esterase Negative, Urine RBC 3-5, Urine WBC Occasional, Ur Squamous Epith Cells Occasional, Urine Bacteria None 11/07/24 09:34 11/07/24 09:34 Orders (Tests/Meds): ED MEDICATIONS Discontinued Medications Generic Name Dose Route Start Last Admin Trade Name Freq PRN Reason Stop Dose Admin Acetaminophen 1,000 mg 11/07/24 09:34 11/07/24 09:51 Acetaminophen 1,000mg/100ml Vial IV 11/07/24 09:35 1,000 mg ONCE ONE Administration Lactated Ringer's 1,000 mls @ 999 mls/hr 11/07/24 09:34 11/07/24 09:51 Lactated Ringer's 1000 Ml Bag IV 11/07/24 10:34 999 mls/hr .Q1H1M ONE Administration Iopamidol 75 ml 11/07/24 10:24 11/07/24 10:26 Iopamidol-370 (76%);100ml Bottle IV 11/07/24 10:25 75 ml ONCE ONE Administration Ketorolac Tromethamine 30 mg 11/07/24 09:34 11/07/24 09:51 Ketorolac 30mg/Ml Vial IV 11/07/24 09:35 Not Given ONCE ONE Ondansetron HCl 4 mg 11/07/24 09:34 11/07/24 09:50 Ondansetron 4mg/2ml Vial IV 11/07/24 09:35 4 mg ONCE ONE Administration Ondansetron HCl 4 mg 11/07/24 11:16 11/07/24 11:20 Ondansetron 4mg/2ml Vial IV 11/07/24 11:17 4 mg ONCE ONE Administration Sodium Chloride 10 ml 11/07/24 10:24 11/07/24 10:26 Sodium Chloride 0.9% 10ml Syr (Rad Only) IV 11/07/24 10:25 10 ml ONCE ONE Administration ORDERS Category Date Time Status CT abdomen pelvis w con Stat Cat Scan 11/07/24 09:34 Completed CBC w/Auto Diff [Complete Blood Count Auto Diff] Stat Lab 11/07/24 09:34 Completed CMP [Comprehensive Metabolic Panel] Stat Lab 11/07/24 09:34 Completed Lipase Stat Lab 11/07/24 09:34 Completed Mg [Magnesium] Stat Lab 11/07/24 09:34 Completed Trop I [Troponin I] Stat Lab 11/07/24 09:34 Completed UA [Urinalysis and Microscopic] Stat Lab 11/07/24 09:59 Completed ECG Data Tracing #1: Independently interpreted by me rate is 60, rhythm is irregular, axis is normal, sinus rhythm with isolated PAC, no ST elevation in anatomical contiguous leads, QTc 405 Medical Decision Narrative: In summary patient is a 79-year-old female past medical history described above who presents emergency department for evaluation of abdominal pain, vomiting, decreased urine output over the last 7 days. Patient is hemodynamically stable nontoxic-appearing upon arrival, afebrile. Mild tenderness throughout her abdomen. Will differential includes pancreatitis, atypical ACS, viral gastroenteritis, among others. Workup will be conducted with hematologic labs, urinalysis, CT abdomen pelvis IV contrast. Initial inventions include crystalloid bolus, Toradol, Tylenol, Zofran. Initial workup reviewed by me no significant leukocytosis no transfusable anemia no ERMA or critical electrolyte abnormality initial troponin undetectably low. She does have hyponatremia which is slightly worse than normal but not critical and does not require emergent intervention at this time. Urinalysis interpreted by me not consistent with infection. Patient has hyponatremia which is slightly worse than normal but not emergent. CT imaging has incidental hypervascularity in the right hepatic lobe likely related to flash filling hemangiomas with benign renal and hepatic cysts. Patient with p.o. trial with successful. Given this patient will be discharged with a course of Zofran and was given return precautions. Prior to discharge further history is obtained patient started pramipexole and had severe nausea and vomiting since. Given this it is possible she did have a medication adverse reaction she was instructed to discontinue taking this. Given this patient is appropriate for outpatient management at this time will follow-up with her family doctor Critical Care Critical Care Time Critical Care Time: No
[2024-11-07 09:44] LABS: Hematocrit 37.3 % (37.0-47.0); Hemoglobin 13.2 g/dL (12.2-16.2); Immature Granulocytes % 0.7 %; Mean Corpuscular HGB Conc 35.4 g/dL (31.8-35.4); Mean Corpuscular Hemoglobin 29.8 pg (27.0-31.2); Mean Corpuscular Volume 84.2 fl (81-99); Nucleated Red Blood Cells % 0 %; Platelet Count 333 K/mm3 (142-424); Red Blood Count 4.43 M/mm3 (4.20-5.40); Red Cell Distribution Width-SD 37.0 fL; White Blood Count 8.3 K/mm3 (4.8-10.8)
--- NOTE | 2024-11-07 09:44 | ECG_ITS ---
APPROVED REPORT Exam: Resting ECG HR:60 bpm ECG Measurements Heart Rate 60 AXES AL 154 P 267 QRSd 108 QRS 41 QT 403 T 55 QTc 405 Conclusion ECTOPIC ATRIAL RHYTHM WITH OCCASIONAL ECTOPIC PREMATURE COMPLEXES ABNORMAL RHYTHM ECG Electronically signed by : CAROLINA HERNANDEZ, 11/07/2024 15:59:00
[2024-11-07] MEDS: ONDANSETRON 4MG/2ML VIAL 4 MG IV ×2 (09:50→11:20)
[2024-11-07] MEDS: LACTATED RINGERS 1000ML 1,000 ML 999 ML IV (09:51)
[2024-11-07] MEDS: ACETAMINOPHEN 1,000MG/100ML VIAL 1000 MG IV (09:51)
[2024-11-07 10:07] LABS: Microscopic, Urine URINE MICROSCOPIC (MICROSCOPIC)
[2024-11-07 10:10] LABS: Alanine Aminotransferase 25 U/L (12-78); Alkaline Phosphatase 42 U/L (38-126); Aspartate Amino Transferase 33 U/L (14-36); Bilirubin,Total 0.8 mg/dl (0.2-1.3); Blood Urea Nitrogen 23 mg/dl (7-17); Creatinine Clearance Estimated 48 mL/min (50-200); Creatinine,Serum 0.80 mg/dl (0.52-1.04); Estimated Glomerular Filt Rate 69 ml/min (>60); GFR (African American) 84 ML/MIN (>60); Total Protein,Serum 7.1 g/dl (6.3-8.2); Troponin I < 0.01 ng/ml (0.00-0.034)
[2024-11-07 10:19] LABS: Bilirubin,Urine Negative (Negative); Color,Urine YELLOW (Yellow); Glucose,Urine (UA) Negative (Negative); Ketones,Urine Negative (Negative); Leukocyte Esterase,Urine Negative (Negative); PH,Urine 7.5 (5.0-8.5); Protein,Urine Negative (Negative); Specific Gravity, Urine 1.010 (1.005-1.030); Urobilinogen,Urine 0.2 EU/dl (0.2)
[2024-11-07] MEDS: SODIUM CHLORIDE 0.9% 10ML SYR (RAD ONLY) 10 ML IV (10:26)
[2024-11-07] MEDS: IOPAMIDOL-370 (76%);100ML BOTTLE 75 ML IV (10:26)
[2024-11-07 10:28] LABS: Squamous Epithelial Cell,Urine Occasional #/hpf (0-5); WBC,Urine Occasional #/hpf (0-3)
[2024-11-07 11:09] LABS: Anion Gap 12.9 mEq/L (5-15); Calcium 9.2 mg/dl (8.4-10.2); Carbon Dioxide 26 mmol/L (22.0-30.0); Chloride 95 mmol/L (98-107); Glucose 122 mg/dl (74-100); Magnesium 2.0 mg/dl (1.6-2.3); Potassium 3.9 mmoL/L (3.5-5.1); Sodium 130 mmol/L (136-145)
[2024-11-07 11:10] LABS: Albumin Level 4.2 g/dl (3.5-5.0); Albumin/Globulin Ratio 1.4 (1.1-1.8); Globulin 2.9 g/dL (1.3-3.2); Lipase 207 U/L (23-300)
== END 2024-11-07 12:30 | disposition home or self-care (01) ==
PROVIDERS: Emergency Provider Emergency Medicine; PCP Nurse Practitioner Family
DX: R10.84 Generalized abdominal pain (principal); R11.2 Nausea with vomiting, unspecified; E87.1 Hypo-osmolality and hyponatremia; D18.00 Hemangioma unspecified site; I25.118 Atherosclerotic heart disease of native coronary artery with other forms of angina pectoris; I10 Essential (primary) hypertension; E78.2 Mixed hyperlipidemia; K21.9 Gastro-esophageal reflux disease without esophagitis
CPT/HCPCS: 74177; 80053; 81001; 83690; 83735; 84484; 85025; 93005; 96361; 96374; 96375; 96376; 99285; J0131; J2405; J7120; Q9967

== ENCOUNTER 2024-12-24 14:30 | Outpatient (CLI) | payer MEDICARE, SELFPAY ==
--- OUTSIDE RECORDS SUMMARY | 2016-09-14 14:04 | XMS_ITS | Encounter Summary ---
Author Organization [facility] [place] [address] Care Team Providers Care Poultice Machine Operator Name Role Phone Elvira Velarde MD Primary Care Provider [phone] Encounter Details Date Type Department Care Team (Late st Contact Info) Description 09/14/2016 2:04 PM EDT Hospital Encounter [facility] Referral Lab [address] [place] [phone] Oumar Alves MD [address] [place] [phone] Low back pain Social History Tobacco Use Types Packs/Day Years Used Date Smoking Tobacco: Never Passive Smoke Exposure: Never Smokeless Tobacco: Never Alcohol Use Standard Drinks/Week Comments No 0 (1 standard drink = 0.6 oz pur e alcohol) Overall Financial Resource Strain (CARDIA) Answe r Date Recorded How hard is it for you to pa y for the very basics like food, housing, medical care, and heating? Not hard at all 11/25/2020 PHQ-2 Answer Date Recorded PHQ-2 Total Score 0 07/28/2022 [facility] [place] of Occupat ional [facility] - Occupational Stress Questionnaire Answer Date Recorded Do you feel stress - tense, restless, nervous, or anxious, or unable to sleep at night because your mind is troubled all the time - these days? Not at all 11/25/2020 Exercise Vital Sign Answer Date Recorde d On average, how many days pe r week do you engage in moderate to strenuous exercise (like a brisk walk)? 7 days 12/18/2020 On average, how many minutes do you engage in exercise at this level? 10 min 12/18/2020 Hunger Vital Sign Answer Date Recorded Within the past 12 months, y ou worried that your food would run out before you got the money to buy more. Never true 11/26/19 21 Within the past 12 months, t he food you bought just didn't last and you didn't have money to get more. Never true 11/25/2020 PRAPARE - Transportation Answer Date Re corded In the past 12 months, has l ack of transportation kept you from medical appointments or from getting medications? No 10/31 In the past 12 months, has l ack of transportation kept you from meetings, work, or from getting things needed for daily living? No 11/25/2020 Sexually Active Control Partners Comments Yes Comments No Sex and Gender Information Value Date Recorded Sex Assigned at Not on file Legal Sex Female 7:55 PM EDT Gender Identity Not on file Sexual Orientation Not on file COVID-19 Exposure Response Date Recorded In the last 10 days, have yo u been in contact with someone who was confirmed or suspected to have Coronavirus/COVID-19? No / Unsure 08/19/2022 8:37 AM EDT documented as of this encounter Functional Status * Cognitive and Functional Status Question Answer Date of Assessment Author Is the person deaf or does he/she have serious difficulty hearing? No 12/18/2020 1:08 PM EDT Yara Anders CCMA Is the person blind or does he/she have serious difficulty seeing even when wearing glasses? No 12/18/2020 1:08 PM EDT Yara Anders CCMA Does this person have seriou s difficulty walking or climbing stairs? No 12/18/2020 1:08 PM EDT Yara Anders CCMA Does this person have difficulty dressing or bathing? No 12/18/2020 1:08 PM EDT Anders, Yara Lindsay e, CCMA * Alcohol Screening Score Answer Date of Assessment Author 0 04/24/2018 11:06 PM Rina Cervantes RN * Drug Screening Score Answer Date of Assessment Author 0 04/24/2018 11:06 PM Rina Cervantes RN * Question Answer Date of Assessment Author How often do you have a drin k containing alcohol? 0 04/24/2018 11:06 PM Rina Cervantes RN * PHQ-9 Total Score Answer Date of Assessment Author 0 07/28/2022 2:08 PM EDT Adriana Anders CCMA * Question Answer Date of Assessment Author Little interest or pleasure in doing things 0 07/28/2022 2:08 PM EDT Yara Anders CCMA Feeling down, depressed, or hopeless 0 07/28/2022 2:08 PM EDT Yara Anders, DEAA PHQ-2 Total Score 0 07/28/2022 2:08 PM EDT Yara Anders CCMA * Suicide Severity Rating Answer Date of Assessment Author No Risk 07/18/2022 2:50 PM EDT Mariama Hackett RN * Wake Suicide Severity Rating Scale (Q shift for moderate and high) Question Answer Date of Assessment Author 1. In the past month, have you wished you were or wished you could go to sleep and not wake up? 0 07/18/2022 2:50 PM EDT Conchita Hackett, MARISSA 2. In the past month, have you actually had any thoughts of killing yourself? (If no, skip to question 6) 0 07/18/2022 2:50 PM EDT Conchita Hackett RN 6. Have you ever done anything, started to do anything, or prepared to do anything to end your life? 0 07/18/2022 2:50 PM EDT Efrain Hackett RN documented as of this encounter Mental Status * Cognitive and Functional Status Question Answer Entry Date Author Because of a physical, menta l or emotional condition, does this person have difficulty doing errands alone such as visiting a doctor's office or shopping? No 12/18/2020 1:08 PM EDT Yara Anders CCMA Because of a physical, menta l or emotional condition, does this person have serious difficulty concentrating, remembering or making decisions? No 12/18/2020 1:08 PM EDT Yara Anders CCMA documented in this encounter Plan of Treatment Upcoming Encounters Date Type Department Care Team (Late st Contact Info) Description 01/16/2025 11:30 AM EDT Telemedicine [facility] [place] [address] [place] [address] Katharine Whitlock MD [address] [place] [phone] 08/15/2025 1:40 PM EDT Office Visit [facility] [address] [place] [phone] Na Ang MD [address] [phone] Scheduled Orders Name Type Priority Associated Diagnoses Orde r Schedule CREATININE Lab Routine Low back pain ONCE for 1 Occurrences starting 09/14/2016 until 10/19/2016 documented as of this encounter Goals Goal Patient Goal Type Associated Problems Recent Progress Patient-Stated? Author Blood Pressure < 140/90 Blood Pressure 142/74(2024 12:23 PM EDT) No Yara Anders CCMA Maintain a healthy diet, exercise regularly and maintain an ideal body weight General On track( 021 1:52 PM EDT) No Yara Anders CCMA Take rest breaks to enable body time to recover from recent surgery General On track( 021 1:53 PM EDT) No Page Chatterjee RN documented as of this encounter Visit Diagnoses Diagnosis Low back pain Lumbago documented in this encounter Additional Health Concerns Infection Onset Date Last Indicated Resolved Time COVID-19 Comment:[place] [id number]: import to resolve all COVID-19 infections added prior to 03/01/2020 02/21/2020 02/21/2020 03/25/2020 1:4 0 PM EST R/O COVID-19 12/11/2020 12/11/2020 12/11/2020 1:41 PM EDT R/O COVID-19 04/16/2021 04/16/2021 04/17/2021 2:30 PM EST R/O COVID-19 04/28/2022 04/28/2022 04/28/2022 7:12 AM EST INFLUENZA 04/28/2022 04/28/2022 05/06/2022 10:1 2 PM EST documented as of this encounter Care Teams Poultice Machine Operator Relationship Specialty Start Date End Date Elvira Velarde MD [address] [place] [address] PCP - General Family Medicine 10/04/14 10/22/18 documented as of this encounter
--- OUTSIDE RECORDS SUMMARY | 2024-11-27 12:30 | XMS_ITS | Encounter Summary ---
Author Organization [place] [address] Care Team Providers Care Heel Sewer Name Role Phone Na Ang MD Unavailable [phone] Reason for Referral * Ultrasound (Routine) - Pending Review Specialty Diagnoses / Procedures Referred By Contac t Referred To Contact Radiology Diagnoses Acquired hypothyroidism Procedures US THYROID Katharine Whitlock MD [address] [place] [phone] Phone: tel: fax: Referral ID Status Reason Start Date Expiration Date V isits Requested Visits Authorized [id number] Pending Review 11/27/2024 11/27/2025 1 1 Reason for Visit * Reason Comments Other Encounter Details Date Type Department Care Team (Latest Contact Info) Description 11/27/2024 12:30 PM EDT [facility] [address] [place] [phone] Katharine Whitlock MD [address] [facility] [address] [place] [phone] Acquired hypothyroidism (Primary Dx); Secondary adrenal [...] Date Recorded PHQ-2 Total Score 0 07/28/2022 [facility] - [...] 284 MG/1.5 ML SUBCUTANEOUS SYRINGE - 0 Rx#[id number]. Other antihyperlipidemic medications: -02/03/2023 FENOFIBRATE 160 MG TABLET - 0 Rx#[id number]. Therapy plan medications: No therapy plan of [...] Expenses: Not hard at all Received from [facility] Food Insecurities Received from [facility] Transportation Physical Activity: Insufficiently Active (12/18/2020) Exercise Vital Sign Days of Exercise per Week: 7 days Minutes of Exercise per Session: 10 min Stress: No Stress Concern Present (11/25/2020) [facility] [place] Occupational [facility] - Occupational Stress Questionnaire Feeling of Stress : Not at all Received from [facility] Interpersonal Safety Received from [facility] Housing/Utilities Family History Problem Relation Age [...] (ASTELIN) 137 mcg (0.1 %) Nasl Aerosol, [place] clonazePAM (KLONOPIN) 0.5 mg Oral Tablet estradioL (ESTRACE) 0.01 % (0.1 mg/gram) Vagl Cream Hyoscyamine Sulfate 0.125 mg Oral Tablet, Rapid Dissolve methocarbamoL (ROBAXIN) 500 mg Oral Tablet mirtazapine (REMERON) 15 mg Oral Tablet nebivoloL (BYSTOLIC) 5 mg Oral Tablet wdhctbug-vqptzrlbu-qgsdsaogrufvvhygmc (MAXITROL) 3.5mg/mL-10,000 unit/mL-0.1 % Opht Drops, Suspension [...] Miscellaneous Notes * Patient Instructions - Katharine Whitlcok MD - 11/27/2024 12:30 PM EDT Please continue same dose of the medication(s) prescribed. Will update your with lab and thyroid US results when available this week in case adjustment is needed. documented in this encounter Plan of Treatment Upcoming Encounters Date Type Department Care Team (Late st Contact Info) Description 01/16/2025 11:30 AM EDT Telemedicine [facility] [address] [facility] [address] [place] [phone] Katharine Whitlock MD [address] [facility] [address] [place] [phone] 08/15/2025 1:40 PM EDT Office Visit [facility] [address] [facility] [address] [place] [phone] Na Ang MD [address] [facility] [address] [place] [address] documented as of this encounter Goals Goal Patient Goal Type Associated Problems Recent Progress Patient-Stated? Author Blood Pressure < 140/90 Blood Pressure 142/74(2024 12:23 PM EDT) No Yara Anders CCMA Maintain a healthy diet, exercise regularly and maintain an ideal body weight General On track( 1:52 PM EDT) No Yaar Anders CCMA Take rest breaks to enable body time to recover from recent surgery General On track( 1:53 PM EDT) No Page Chatterjee RN documented as of this encounter Results * ADRENOCORTICOTROPIC HORMONE -REF LAB (12/14/2024 12:41 PM EDT) [facility] ACTH 17.4 7.2 - 63.3 pg/mL 12/17/2024 7:33 PM EDT [employer] Comment: INTERPRETIVE INFORMATION: Adrenocorticotropic Hormone Reference interval based on samples collected between 7 a.m. and 10 a.m. No reference intervals established for p.m. collections. Pediatric reference values are the same as adults (Acta Paediatr Scand 1981;70:341-345). This assay measures intact ACTH 1-39; some types of synthetic ACTH and ACTH fragments are not detected by this assay. Performed By: [facility] [address] [place] [address] Plating Inspector: Uvaldo Youssef MD, PhD CLIA Number: [id number] Blood VENOUS BLOOD / Unknown Venipuncture / Unknown 12/14/2024 12:41 PM EDT 12/14/2024 2:19 PM EDT Katharine Whitlock MD CHEMISTRY ORDERABLES Final Resu Performing Organization Address City/[facility]/ZIP Co de Phone Number [facility] [address] [place] [address] * CORTISOL (12/14/2024 12:41 PM EDT) Cortisol 5.82 mcg/dL 12/14/2024 6:5 8 PM EDT [facility] Blood VENOUS BLOOD / Unknown Venipuncture / Unknown 12/14/2024 12:41 PM EDT 12/14/2024 3:30 PM EDT Narrative [facility] - 12/14/2024 6:58 PM EDT AM: 4.82 [...] test. Katharine Whitlock MD CHEMISTRY ORDERABLES [facility] Performing Organization Address [facility] Co de Phone Number [facility] [address] [place] [address] , [place] [address] * (ABNORMAL) DEHYDROEPIANDROSTERONE SULFATE (12/14/2024 12:41 PM EDT) Dhea Sulfate 10.40(L) 12.00 - 154.00 mcg/dL 12/14/2024 6:58 PM EDT [facility] Blood VENOUS BLOOD / Unknown Venipuncture / Unknown 12/14/2024 12:41 PM EDT 12/14/2024 3:30 PM EDT Narrative [facility] - 12/14/2024 6:58 PM EDT Ingestion of aldair doses of biotin (>5 mg/day) taken within 8 hours of drawing blood sample can interfere with this immunoassay test. Katharine Whitlock MD CHEMISTRY ORDERABLES Final [facility] Performing Organization Address [facility] Co de Phone Number [facility] [employer], [place] [address] * LUTEINIZING HORMONE (12/14/2024 12:41 PM EDT) LH 44.10 mIU/mL 12/14/2024 6:58 PM EDT [facility] [employer] [facility] Comment: Suggested Reference Ranges (mIU/mL) Females Follicular Phase 2.4 - 12.6 Ovulation Phase 14.0 - 95.6 Luteal Phase 1.0 - 11.4 Postmenopause 7.7 - 58.5 Males 1.7 - 8.6 Blood VENOUS BLOOD / Unknown Venipuncture / Unknown 12/14/2024 12:41 PM EDT 12/14/2024 3:30 PM EDT Narrative [facility] [employer] [facility] - 12/14/2024 6:58 PM EDT Ingestion of aldair doses of biotin (>5 mg/day) taken within 8 hours of drawing blood sample can interfere with this immunoassay test. Katharine Whitlock MD CHEMISTRY ORDERABLES Final [facility] Performing Organization Address [facility] de Phone Number [facility] [employer], [place] [address] * THYROGLOBULIN ANTIBODY -REF LAB (12/14/2024 12:41 PM EDT) Thyroglob Ab <1.5 0.0 - 4.0 IU/mL 12/16/2024 6:43 AM EDT [employer] Comment: INTERPRETIVE INFORMATION: Thyroglobulin Antibody A value of 4.0 IU/mL or less indicates a negative result for thyroglobulin antibodies. The Thyroglobulin Antibody assay is being performed using the [employer] Access DxI method. Performed By: [facility] [address] [place] [address] Plating Inspector: Uvaldo Youssef MD, PhD CLIA Number: [id number] Blood VENOUS BLOOD / Unknown Venipuncture / Unknown 12/14/2024 12:41 PM EDT 12/14/2024 2:31 PM EDT Result [facility] Katharine Whitlock MD IMMUNOLOGY ORDERABLES Final Res ult Performing Organization Address City/[facility]/ZIP Co de Phone Number [facility] [address] [place] [address] * THYROID PEROXIDASE (TPO) ANTIBODY (12/14/2024 12:41 PM EDT) TPO Ab <3.00 <=5.59 IU/mL 12/14/2024 7:09 PM EDT [facility] Blood VENOUS BLOOD / Unknown Venipuncture / Unknown 12/14/2024 12:41 PM EDT 12/14/2024 2:22 PM EDT Katharine Whitlock MD IMMUNOLOGY ORDERABLES Final Res ult Performing Organization Address [facility] de Phone Number [facility] [address] [facility] , [place] [address] * T3 FREE (12/14/2024 12:41 PM EDT) Pathologist [facility] T3 Free 2.24 2.00 - 4.40 pg/mL 12/14/2024 6:49 PM EDT [facility] Blood VENOUS BLOOD / Unknown Venipuncture / Unknown 12/14/2024 12:41 PM EDT 12/14/2024 2:23 PM EDT Narrative [facility] - 12/14/2024 6:49 PM EDT Ingestion of aldair doses of biotin (>5 mg/day) taken within 8 hours of drawing blood sample can interfere with this immunoassay test. Katharine Whitlock MD CHEMISTRY ORDERABLES Final Resu lt Performing Organization Address [facility]/ZIP Co de Phone Number [facility] [address] [facility] , [place] [address] * T4, FREE (THYROXINE) (12/14/2024 12:41 PM EDT) Free T4 1.41 0.80 - 1.80 ng/dL 12/14/2024 6:49 PM EDT [facility] [employer] [facility] Blood VENOUS BLOOD / Unknown Venipuncture / Unknown 12/14/2024 12:41 PM EDT 12/14/2024 2:23 PM EDT Narrative [facility] [employer], [facility] - 12/14/2024 6:49 PM EDT Ingestion of aldair doses of biotin (>5 mg/day) taken within 8 hours of drawing blood sample can interfere with this immunoassay test. Katharine Whitlock MD CHEMISTRY ORDERABLES Final Resu Performing Organization Address [facility] Co de Phone Number [facility] [employer] , [place] [address] * THYROID STIMULATING HORMONE (12/14/2024 12:41 PM EDT) Pathologist [facility] TSH 0.737 0.270 - 4.200 mcIU/mL 12/14/2024 6:49 PM EDT [facility] [employer] [facility] Blood VENOUS BLOOD / Unknown Venipuncture / Unknown 12/14/2024 12:41 PM EDT 12/14/2024 2:23 PM EDT Narrative [facility] - 12/14/2024 6:49 PM EDT Ingestion of aldair doses of biotin (>5 mg/day) taken within 8 hours of drawing blood sample can interfere with this immunoassay test. Katharine Whitlock MD CHEMISTRY ORDERABLES Final Resu Performing Organization Address City/[facility]/ZIP Co de Phone Number [facility] [employer] , [place] [address] * PARATHYROID HORMONE INTACT (12/14/2024 12:41 PM EDT) PTH Intact 27.90 15.00 - 65.00 pg/mL 12/14/2024 6:35 PM EDT [facility] [employer] [facility] Blood VENOUS BLOOD / Unknown Venipuncture / Unknown 12/14/2024 12:41 PM EDT 12/14/2024 2:31 PM EDT Narrative [facility] [employer] [facility] - 12/14/2024 6:35 PM EDT [...] Whitlock MD CHEMISTRY ORDERABLES Final Resu lt [facility] [employer] [address] , [address] [place] [id number] * VITAMIN D, 1,25-DIHYDROXY -REF LAB (12/14/2024 12:41 PM EDT) Vit D 1,25 46.9 19.9 - 79.3 pg/mL 12/16/2024 2:37 PM EDT [employer] Comment: INTERPRETIVE INFORMATION: Vitamin D, 1,25-Dihydroxy This test is primarily indicated during patient evaluation for hypercalcemia and renal failure. A normal result does not rule out Vitamin D deficiency. The recommended test for diagnosing Vitamin D deficiency is Vitamin D 25-hydroxy. Performed By: [facility] [address] [place] [id number] Plating Inspector: Uvaldo Youssef MD, PhD CLIA Number: [id number] Blood VENOUS BLOOD / Unknown Venipuncture / Unknown 12/14/2024 12:41 PM EDT 12/14/2024 2:31 PM EDT Katharine Whitlock MD CHEMISTRY ORDERABLES Final Resu lt [facility] [address] [place] [address] * VITAMIN D 25 HYDROXY (12/14/2024 12:41 PM EDT) Vit D 25 OH 72.0 30.0 - 150.0 ng/mL 12/14/2024 6:58 PM EDT [facility] [employer] Comment: Preferred: >= 30 ng/mL Insufficient: 21-29 [...] ORDERABLES Final Resu lt Performing Organization Address City/[facility]/ZIP Co de Phone Number [facility] [address] [facility] , [place] [address] * LIPID PANEL REFLEX (12/14/2024 12:41 PM EDT) Pathologist [facility] Cholesterol 158 <200 mg/dL 12/14/2024 6:49 PM EDT [facility] [employer] Comment: < 200 Desirable 200 - 239 Borderline High >= 240 High Triglyceride 97 <150 mg/dL 12/14/2024 6:49 PM EDT [facility] [employer] Comment: < 150 Normal 150 - 199 Borderline High 200 - 499 High >= 500 Very High HDL 49 >=40 mg/dL 12/14/2024 6:49 PM EDT [facility] [employer] Comment: > 60 Optimal 40 - 60 Acceptable < 40 Low LDL Calculated 91 <100 mg/dL 12/14/2024 6:49 PM EDT [facility] Comment: < 100 Optimal 100 - 129 Near or above optimal 130 - 159 Borderline High 160 - 189 High >= 190 Very High The National Institutes of Health (NIH) equation is used for all lipid panels that report calculated LDL (LDL-C). Non-HDL-C Calculated 109 <=129 mg/dL 12/14/2024 6:49 PM EDT [facility] Comment: <130 Desirable 130-159 Above Desirable 160-189 Borderline High 190-219 High >= 220 Very High Fasting Specimen? Yes None 025 6:49 PM EDT [facility] [employer] Blood VENOUS BLOOD / Unknown Venipuncture / Unknown 12/14/2024 12:41 PM EDT 12/14/2024 2:23 PM EDT Katharine Whitlock MD CHEMISTRY ORDERABLES Final Resu lt [facility] [employer] [address] [facility] , [place] [address] * LIPOPROTEIN (A) (12/14/2024 12:41 PM EDT) Lipoprotein (a) 16 <30 mg/dL 7:13 PM EDT [facility] [employer] Blood VENOUS BLOOD / Unknown Venipuncture / Unknown 12/14/2024 12:41 PM EDT 12/14/2024 2:23 PM EDT Katharine Whitlock MD CHEMISTRY ORDERABLES Final Resu lt [facility] [employer] [facility] [address] [facility] , [place] [address] * LACTIC ACID (12/14/2024 12:41 PM EDT) Lactic Acid 0.9 0.5 - 1.9 mmol/L 12/14/2024 1:41 PM EDT [facility] Blood VENOUS BLOOD / Unknown Venipuncture / Unknown 12/14/2024 12:41 PM EDT 12/14/2024 1:14 PM EDT Katharine Whitlock MD CHEMISTRY ORDERABLES Final Resu lt Performing Organization Address [facility] Co de Phone Number [facility] [address] [place] [phone] * VITAMIN B6 (PYRIDOXINE) -REF LAB (12/14/2024 12:41 PM EDT) Vit B6 37.9 20.0 - 125.0 nmol/L 12/19/2024 5:11 AM EDT [employer] Comment: INTERPRETIVE INFORMATION: Vitamin B6 (Pyridoxal 5-Phosphate) Pyridoxal 5'-phosphate measured in a specimen collected following an 8-hour or overnight fast accurately indicates vitamin B6 nutritional status. Non-fasting specimen concentration reflects recent vitamin intake. This test was developed and its performance characteristics determined by [facility]. It has not been cleared or approved by the US Food and Drug Administration. This test was performed in a CLIA certified laboratory and is intended for clinical purposes. Performed By: [facility] [address] [place] [address] Plating Inspector: Uvaldo Youssef MD, PhD CLIA Number: [id number] Blood VENOUS BLOOD / Unknown Venipuncture / Unknown 12/14/2024 12:41 PM EDT 12/14/2024 4:56 PM EDT Katharine Whitlock MD CHEMISTRY ORDERABLES Final Resu lt Performing Organization Address [facility] Co de Phone Number [facility] [address] [place] [address] * VITAMIN B12 LEVEL (12/14/2024 12:41 PM EDT) Vitamin B12 379 232 - 1,245 pg/mL 12/14/2024 6:58 PM EDT [facility] [employer] [employer] Blood VENOUS BLOOD / Unknown Venipuncture / Unknown 12/14/2024 12:41 PM EDT 12/14/2024 3:30 PM EDT Narrative [facility] - 12/14/2024 6:58 PM EDT Ingestion of aldair doses of biotin (>5 mg/day) taken within 8 hours of drawing blood sample can interfere with this immunoassay test. us Katharine Whitlock MD CHEMISTRY ORDERABLES Final Resu lt Performing Organization Address [facility] de Phone Number [facility], [facility] [address] [facility] , [address] [place] [phone] * URIC ACID (12/14/2024 12:41 PM EDT) Uric Acid 3.4 2.4 - 5.7 mg/dL 12/14/2024 6:49 PM EDT [facility], [facility] Blood VENOUS BLOOD / Unknown Venipuncture / Unknown 12/14/2024 12:41 PM EDT 12/14/2024 2:23 PM EDT Katharine Whitlock MD CHEMISTRY ORDERABLES Final Resu lt Performing Organization Address [facility] de Phone Number [facility], [facility] [address] [facility] , [place] [address] * (ABNORMAL) IRON+TIBC (12/14/2024 12:41 PM EDT) Iron 78 30 - 160 mcg/dL 12/14/2024 6:49 PM EDT [facility] Transferrin 298 200 - 360 mg/dL 12/14/2024 6:49 PM EDT [facility] [employer] Saturation 19(L) 20 - 50 % 12/14/2024 6:49 PM EDT [facility] TIBC 417(H) 250 - 400 mcg/dL 12/14/2024 6:49 PM EDT [facility] Blood VENOUS BLOOD / Unknown Venipuncture / Unknown 12/14/2024 12:41 PM EDT 12/14/2024 2:23 PM EDT Katharine Whitlock MD CHEMISTRY ORDERABLES Final Resu lt [facility] [address] [facility] , [place] [address] * (ABNORMAL) COMPREHENSIVE METABOLIC PANEL (12/14/2024 12:41 [...] mL/min/1.7 3 m2 12/14/2024 6:49 PM EDT [facility] [employer] Comment:Estimated GFR was ca lculated using the CKD-EPIcr (2020) equation refit without race. The equation is recommended by the National Kidney Foundation - [place] [employer] [employer] Neph[employer] Task Force. Blood VENOUS BLOOD / Unknown Venipuncture / Unknown 12/14/2024 12:41 PM EDT 12/14/2024 2:23 PM EDT Katharine Whitlock MD CHEMISTRY ORDERABLES Final Resu lt Performing Organization Address City/[facility]/ZIP Co de Phone Number [facility] [employer] [address] [facility] , [place] [address] * C-REACTIVE PROTEIN (12/14/2024 12:41 PM EDT) CRP <3.00 <=5.00 mg/L 12/14/2024 7:13 PM EDT [facility] [employer] Blood VENOUS BLOOD / Unknown Venipuncture / Unknown 12/14/2024 12:41 PM EDT 12/14/2024 2:23 PM EDT Katharine Whitlock MD CHEMISTRY ORDERABLES Final Resu lt Performing Organization Address [facility] Co de Phone Number [facility] [employer] [facility] [address] [facility] , [place] [address] * US THYROID (12/12/2024 12:48 [...] 12:48 PM CLINICAL HISTORY: Thyroid nodule(s). E03.9-Hypothyroidism, [id number]-CM. COMPARISON: None. PROCEDURE COMMENTS: Sonographic evaluation of [...] 12:48 PM CLINICAL HISTORY: Thyroid nodule(s). E03.9-Hypothyroidism, [id number]-CM. COMPARISON: None. PROCEDURE COMMENTS: Sonographic evaluation of [...] documented as of this encounter Care Teams Heel Sewer Relationship Specialty Start Date End Date Na Ang MD [address] [place] [phone] Consulting Physician Ophthalmology 07/10/20 documented as of this encounter
--- OUTSIDE RECORDS SUMMARY | 2024-12-12 12:22 | XMS_ITS | Encounter Summary ---
Author Organization [place] [address] Care Team Providers Care Pig Machine Supervisor Name Role Phone Na Ang MD Unavailable [phone] Reason for Referral * Ultrasound (Routine) - Pending Review Specialty Diagnoses / Procedures Referred By Contac t Referred To Contact Radiology Diagnoses Acquired hypothyroidism Procedures US THYROID Katharine Whitlock MD [address] [place] [phone] Phone: tel: fax: Referral ID Status Reason Start Date Expiration Date V isits Requested Visits Authorized [id number] Pending Review 11/27/2024 11/27/2025 1 1 Reason for Visit * Ultrasound (Routine) - Pending Review Specialty Diagnoses / Procedures Referred By Alpesh correia Referred To Contact Radiology Diagnoses Acquired hypothyroidism Procedures US THYROID Katharine Whitlock MD 1500 [facility] [address] [place] [phone] Phone: tel: fax: Referral ID Status Reason Start Date Expiration Date V isits Requested Visits Authorized [id number] Pending Review 11/27/2024 11/27/2025 1 1 Encounter Details Date Type Department Care Team (Latest Contact Info) Description 12/12/2024 12:22 PM EDT - 12/12/2024 11:59 PM EDT Hospital Encounter [facility] [address] [place] [address] Katharine Whitlock MD [address] [facility] [address] [place] [address] Acquired hypothyroidism Discharge Disposition: Home or Self Care Social History Tobacco Use Types Packs/Day Years Used Date Smoking Tobacco: Never Passive Smoke Exposure: Never Smokeless Tobacco: Never Alcohol Use Standard Drinks/Week Comments No 0 (1 standard drink = 0.6 oz pur e alcohol) Overall Financial Resource Strain (CARDI) Answe r Date Recorded How hard is it for you to pa y for the very basics like food, housing, medical care, and heating? Not hard at all 11/25/2020 PHQ-2 Answer Date Recorded PHQ-2 Total Score 0 07/28/2022 [facility] [place] of Occupat ional Health - Occupational Stress [...] of Assessment Author No 12/18/2020 1:08 PM EDAdriana Marcano CCMA * Does this person have serious difficulty walking or climbing stairs? Answer Date of Assessment Author No 12/18/2020 1:08 PM EDAdriana Marcano CCMA * Does this person have difficulty dressing or bathing? Answer Date of Assessment Author No 12/18/2020 1:08 PM EDT Adriana Anders CCMA * Because of a physical, mental or emotional condition, does this person have difficulty doing errands alone such as visiting a doctor's office or shopping? Answer Date of Assessment Author No 12/18/2020 1:08 PM EDAdriana Marcano CCMA documented as of this encounter Mental Status * Because of a physical, mental or emotional condition, does this person have serious difficulty concentrating, remembering or making decisions? Answer Entry Date Author No 12/18/2020 1:08 PM EDAdriana Marcano CCMA documented in this encounter Medications at Time of Discharge albuterol (PROVENTIL HFA;VENTOLIN HFA) 90 mcg/actuation Inhl HFA Aerosol Inhaler Inhale 2 puffs every 4 hours by inhalation route. amLODIPine (NORVASC) 10 mg Oral Tablet 12/07/2022 azelastine (ASTELIN) 137 mcg (0.1 %) Nasl Aerosol, [place] USE 1 SPRAY(S) IN EACH NOSTRIL TWICE DAILY 10/25/2022 candesartan (ATACAND) 16 mg Oral Tablet Take 16 mg by mouth every evening. carvediloL (COREG) 12.5 mg Oral Tablet Take 1 tablet twice a day by oral route. 10/16/2022 clonazePAM (KLONOPIN) 0.5 mg Oral Tablet Take 0.5 mg by mouth. cyclobenzaprine (FLEXERIL) 5 mg Oral Tablet Take 5 mg by mouth 2 times daily as needed. 09/12/2023 dicyclomine (BENTYL) 20 mg Oral TabletIndications: Irritable bowel syndrome with constipation Take 1 Tablet by mouth 3 times daily as needed for Pain. 60 Tablet 2 02/02/2021 DULoxetine (CYMBALTA) 60 mg Oral Capsule, Delayed Release(E.C.) Take 60 mg by mouth. estradioL (ESTRACE) 0.01 % (0.1 mg/gram) Vagl Cream Use 1 fingertip (1gm) nightly x2 weeks then 2 nights per week, 1 tube 1 refill 42.5 g 1 05/06/2022 famotidine (PEPCID) 40 mg Oral Tablet Take 1 Tablet by mouth daily. 30 Tablet 2 08/23/2022 fenofibrate (LOFIBRA) 160 mg Oral Tablet 11/04/2022 inclisiran (LEQVIO) 284 mg/1.5 mL SubQ Syringe 284 mg. 12/07/2022 levothyroxine (SYNTHROID) 75 mcg Oral Tablet Take by mouth daily. neomycin-polymyxin -dexamethamethason e (MAXITROL) 3.5mg/mL-10,000 unit/mL-0.1 % Opht Drops, Suspension Place 1 Drop into the left eye 4 times daily. ondansetron (ZOFRAN) 4 mg Oral Tablet Take 1 Tablet by mouth every 6 hours as needed for Nausea for up to 20 doses. 20 Tablet 2 12/08/2020 4:25 PM EDT 12/08/2020 pantoprazole (PROTONIX) 40 mg Oral Tablet, Delayed Release (E.C.)Indications: Gastroesophageal reflux disease without esophagitis Take 1 Tablet by mouth daily. 90 Tablet 3 07/14/2022 documented as of this encounter Discharge Disposition Disposition Code Departure Means Destination Home or Self Care documented in this encounter Plan of Treatment Upcoming Encounters Date Type Department Care Team (Late st Contact Info) Description 01/16/2025 11:30 AM EDT Telemedicine [facility] Diabetes [place] [address] [facility] [place] [phone] Katharine Whitlock MD [address] [facility] [address] [place] [address] 08/15/2025 1:40 PM EDT Office Visit [facility] [address] [facility] [place] [phone] Na Ang MD 1500 [facility] [address] [place] [address] documented as of this encounter [...] 1:53 PM EDT) No Page Chatterjee, RN documented as of this encounter Procedures Procedure Name Priority Date/Time Associated Diagnosis Comments US THYROID Routine 12/12/2024 12:48 PM EDT Acquired hypothyroidism documented in this encounter Results * US THYROID (12/12/2024 12:48 PM EDT) [...] 12:48 PM CLINICAL HISTORY: Thyroid nodule(s). E03.9-Hypothyroidism, [id number]. COMPARISON: None. PROCEDURE COMMENTS: Sonographic evaluation of [...] 12:48 PM CLINICAL HISTORY: Thyroid nodule(s). E03.9-Hypothyroidism, [id number]. COMPARISON: None. PROCEDURE COMMENTS: Sonographic evaluation of [...] in this encounter Visit Diagnoses Diagnosis Acquired hypothyroidism Unspecified hypothyroidism documented in this encounter Additional Health Concerns Assessment Noted Time A fall risk assessment has been complete d for the patient 07/28/2022 2:08 PM EDT documented as of this encounter Care Teams Pig Machine Supervisor Relationship Specialty Start Date End Date Na Ang MD [address] [address] Consulting Physician Ophthalmology 07/10/20 documented as of this encounter
--- OUTSIDE RECORDS SUMMARY | 2024-12-14 12:28 | XMS_ITS | Encounter Summary ---
Author [place] [address] Care Team Providers Care Bite Block Maker Name Role Phone Na Ang MD Unavailable [phone] Encounter Details Date Type Department Care Team (Latest Contact Info) Description 12/14/2024 12:28 PM EDT - 12/14/2024 11:59 PM EDT Hospital Encounter [facility] [address] [place] [phone] Acquired hypothyroidism; Chronic fatigue; Other hyperlipidemia; Vitamin D deficiency; Secondary adrenal insufficiency Discharge Disposition: Home or Self Care Social [...] Date Recorded PHQ-2 Total Score 0 07/28/2022 [facility] of Occupat ional Health - Occupational Stress [...] Author No 12/18/2020 1:08 PM EDT Adriana Anedrs CCMA * Because of a physical, mental or emotional condition, does this person have difficulty doing errands alone such as visiting a doctor's office or shopping? Answer Date of Assessment Author No 12/18/2020 1:08 PM EDT Chago Adriana CHRIS Kat documented as of this encounter Mental Status * Because of a physical, mental or emotional condition, does this person have serious difficulty concentrating, remembering or making decisions? Answer Entry Date Author No 12/18/2020 1:08 PM EDT Adriana Anders CHRIS Kat documented in this encounter Medications at Time of Discharge albuterol (PROVENTIL HFA;VENTOLIN HFA) 90 mcg/actuation Inhl HFA Aerosol Inhaler Inhale 2 puffs every 4 hours by inhalation route. amLODIPine (NORVASC) 10 mg Oral Tablet 12/07/2022 azelastine (ASTELIN) 137 mcg (0.1 %) Nasl Aerosol, [place] USE 1 SPRAY(S) IN EACH NOSTRIL TWICE [...] Info) Description 01/16/2025 11:[address] [facility] [place] [address] [phone] Katharine Whitlock MD [address] [phone] 08/15/2025 1:40 PM EDT Office Visit [facility] [address] [phone] Na Ang MD [address] [phone] documented as of this encounter Goals Goal [...] General On track( 021 1:53 PM EDT) Page Montgomery RN documented as of this encounter Procedures Procedure Name Priority Date/Time Associated Diagnosis Comments GLUCOSE HYPOGLYCEMIA 3 HOUR (GTT) Routine 12/14/2024 4:27 PM EDT Secondary adrenal insufficiency Acquired hypothyroidism Chronic fatigue GLUCOSE 2.5 HOUR Routine 12/14/2024 3:52 PM EDT Secondary adrenal insufficiency Acquired hypothyroidism Chronic fatigue GLUCOSE HYPOGLYCEMIA 2 HOUR (GTT) Routine 12/14/2024 3:16 PM EDT Secondary adrenal insufficiency Acquired hypothyroidism Chronic fatigue GLUCOSE 1.5 HOUR Routine 12/14/2024 2:42 PM EDT Secondary adrenal insufficiency Acquired hypothyroidism Chronic fatigue GLUCOSE HYPOGLYCEMIA 1 HOUR (GTT) Routine 12/14/2024 2:11 PM EDT Secondary adrenal insufficiency Acquired hypothyroidism Chronic fatigue GLUCOSE .5 HOUR Routine 12/14/2024 1:36 PM EDT Secondary adrenal insufficiency Acquired hypothyroidism Chronic fatigue LIPOPROTEIN (A) Routine 12/14/2024 12:41 PM EDT Other hyperlipidemia IRON+TIBC Routine 12/14/2024 12:41 PM EDT Acquired hypothyroidism GLUC HYPOGLYCEMIA FASTING (GTT) Timed 12/14/2024 12:41 PM EDT Secondary adrenal insufficiency Acquired hypothyroidism Chronic fatigue THYROID PEROXIDASE (TPO) ANTIBODY Routine 12/14/2024 12:41 PM EDT Acquired hypothyroidism GLUC HYPOGLYCEMIA FASTING (GTT) Timed 12/14/2024 12:41 PM EDT Secondary adrenal insufficiency Acquired hypothyroidism Chronic fatigue LIPID PANEL REFLEX Routine 12/14/2024 12:41 PM EDT Other hyperlipidemia VITAMIN D 25 HYDROXY Routine 12/14/2024 12:41 PM EDT Vitamin D deficiency VITAMIN D, 1,25-DIHYDROXY -REF LAB Routine 12/14/2024 12:41 PM EDT Vitamin D deficiency DEHYDROEPIANDROSTERONE SULFATE Routine 12/14/2024 12:41 PM EDT Secondary adrenal insufficiency THYROGLOBULIN ANTIBODY -REF LAB Routine 12/14/2024 12:41 PM EDT Acquired hypothyroidism ADRENOCORTICOTROPIC HORMONE -REF LAB Routine 12/14/2024 12:41 PM EDT Secondary adrenal insufficiency C-REACTIVE PROTEIN Routine 12/14/2024 12:41 PM EDT Acquired hypothyroidism URIC ACID Routine 12/14/2024 12:41 PM EDT Acquired hypothyroidism T3 FREE Routine 12/14/2024 12:41 PM EDT Acquired hypothyroidism THYROID STIMULATING HORMONE Routine 11/30 12:41 PM EDT Acquired hypothyroidism T4, FREE (THYROXINE) Routine 12/14/2024 12:41 PM EDT Acquired hypothyroidism VITAMIN B6 (PYRIDOXINE) -REF LAB Routine 12/14/2024 12:41 PM EDT Chronic fatigue PARATHYROID HORMONE INTACT Routine 12/14 12:41 PM EDT Vitamin D deficiency LACTIC ACID Routine 12/14/2024 12:41 PM EDT Chronic fatigue LUTEINIZING HORMONE Routine 12/14/2024 12:41 PM EDT Chronic fatigue VITAMIN B12 LEVEL Routine 12/14/2024 12:41 PM EDT Acquired hypothyroidism CORTISOL Routine 12/14/2024 12:41 PM EDT Secondary adrenal insufficiency COMPREHENSIVE METABOLIC PANEL Routine 12/14/2024 12:41 PM EDT Acquired hypothyroidism documented in this encounter Results * GLUCOSE HYPOGLYCEMIA 3 HOUR (GTT) (12/14/2024 4:27 PM EDT) Gluc 3 Hr 57 >=50 mg/dL 12/14/2024 4:58 PM EDT [facility] Blood VENOUS BLOOD / Unknown Venipuncture / Unknown 12/14/2024 4:27 PM EDT 12/14/2024 4:27 PM EDT us Katharine Whitlock MD CHEMISTRY ORDERABLES Final Resu lt Performing Organization Address City/[facility] de Phone Number [facility] [address] [place] [address] * GLUCOSE 2.5 HOUR (12/14/2024 3:52 PM EDT) Gluc 2.5 Hr 80 >=50 mg/dL 12/14/2024 4:36 PM EDT [facility] Blood VENOUS BLOOD / Unknown Venipuncture / Unknown 12/14/2024 3:52 PM EDT 12/14/2024 3:52 PM EDT us Katharine Whitlock MD CHEMISTRY ORDERABLES Final Resu lt Performing Organization Address [facility] de Phone Number [facility] [address] [place] [address] * GLUCOSE HYPOGLYCEMIA 2 HOUR (GTT) (12/14/2024 3:16 PM EDT) Gluc 2 Hr 84 <140 mg/dL 12/14/2024 3:52 PM EDT [facility] Blood VENOUS BLOOD / Unknown Venipuncture / Unknown 12/14/2024 3:16 PM EDT 12/14/2024 3:16 PM EDT us Katharine Whitlock MD CHEMISTRY ORDERABLES Final Resu lt Performing Organization Address [facility] de Phone Number [facility] [address] [place] [address] * GLUCOSE 1.5 HOUR (12/14/2024 2:42 PM EDT) Glu 1.5 Hr 87 mg/dL 12/14/2024 3:31 PM EDT [facility] Blood VENOUS BLOOD / Unknown Venipuncture / Unknown 12/14/2024 2:42 PM EDT 12/14/2024 2:42 PM EDT us Katharine Whitlock MD CHEMISTRY ORDERABLES Final Resu lt Performing Organization Address City/[facility]/ZIP Co de Phone Number [facility] [address] [place] [address] * GLUCOSE HYPOGLYCEMIA 1 HOUR (GTT) (12/14/2024 2:11 PM EDT) Gluc 1 Hr 89 - mg/dL 12/14/2024 3:02 PM EDT [facility] Blood VENOUS BLOOD / Unknown Venipuncture / Unknown 12/14/2024 2:11 PM EDT 12/14/2024 2:11 PM EDT us Katharine Whitlock MD CHEMISTRY ORDERABLES Final Resu lt Performing Organization Address [facility] de Phone Number [facility] [address] [place] [address] * GLUCOSE .5 HOUR (12/14/2024 1:36 PM EDT) Gluc .5 Hr 136 mg/dL 12/14/2024 2:12 PM EDT [facility] Blood VENOUS BLOOD / Unknown Venipuncture / Unknown 12/14/2024 1:36 PM EDT 12/14/2024 1:34 PM EDT us Katharine Whitlock MD CHEMISTRY ORDERABLES Final Resu lt Performing Organization Address City/[facility] Co de Phone Number [facility] [address] [place] [address] * GLUC HYPOGLYCEMIA FASTING (GTT) (12/14/2024 12:41 PM EDT) Pathologist [facility] Glucose Fasting 92 <100 mg/dL 12/14/2024 1:33 PM EDT [facility] Blood VENOUS BLOOD / Unknown Venipuncture / Unknown 12/14/2024 12:41 PM EDT 12/14/2024 1:07 PM EDT Katharine Whitlock MD CHEMISTRY ORDERABLES Final Resu lt [facility] [address] [place] [address] * ADRENOCORTICOTROPIC HORMONE -REF LAB (12/14/2024 12:41 PM EDT) [facility] ACTH 17.4 7.2 - 63.3 pg/mL 12/17/2024 7:33 PM EDT [employer] Comment: INTERPRETIVE INFORMATION: Adrenocorticotropic Hormone Reference interval based on samples collected between 7 a.m. and 10 a.m. No reference intervals established for p.m. collections. Pediatric reference values are the same as adults (Acta Paediatr Scand 1981;70:341-345). This assay measures intact ACTH 1-39; some types of synthetic ACTH and ACTH fragments are not detected by this assay. Performed By: [facility] [address] [place] [address] Shopfitter: Uvaldo Youssef MD, PhD CLIA Number: [id number] Blood VENOUS BLOOD / Unknown Venipuncture / Unknown 12/14/2024 12:41 PM EDT 12/14/2024 2:19 PM EDT Katharine Whitlock MD CHEMISTRY ORDERABLES Final Resu lt [facility] [employer] [address] [place] [address] * CORTISOL (12/14/2024 12:41 PM EDT) Pathologist [facility] Cortisol 5.82 mcg/dL 12/14/2024 6:5 8 PM EDT [facility] Blood VENOUS BLOOD / Unknown Venipuncture / Unknown 12/14/2024 12:41 PM EDT 12/14/2024 3:30 PM EDT Narrative [facility] - 12/14/2024 6:58 PM EDT AM: 4.82 [...] Resu lt Performing Organization Address [facility] Co de Phone Number [facility] [address] [place] [address] , [place] [address] * (ABNORMAL) DEHYDROEPIANDROSTERONE SULFATE (12/14/2024 12:41 PM EDT) Dhea Sulfate 10.40(L) 12.00 - 154.00 mcg/dL 12/14/2024 6:58 PM EDT [facility] Blood VENOUS BLOOD / Unknown Venipuncture / Unknown 12/14/2024 12:41 PM EDT 12/14/2024 3:30 PM EDT Narrative [facility] - 12/14/2024 6:58 PM EDT Ingestion of aldair doses of biotin (>5 mg/day) taken within 8 hours of drawing blood sample can interfere with this immunoassay test. Katharine Whitlock MD CHEMISTRY ORDERABLES Final Resu Performing Organization Address City/[facility]/ZIP Co de Phone Number [facility] [address] [place] [address] , [place] [address] * LUTEINIZING HORMONE (12/14/2024 12:41 PM EDT) LH 44.10 mIU/mL 12/14/2024 6:58 PM EDT [facility] [employer] Comment: Suggested Reference Ranges (mIU/mL) Females Follicular Phase 2.4 - 12.6 Ovulation Phase 14.0 - 95.6 Luteal Phase 1.0 - 11.4 Postmenopause 7.7 - 58.5 Males 1.7 - 8.6 Blood VENOUS BLOOD / Unknown Venipuncture / Unknown 12/14/2024 12:41 PM EDT 12/14/2024 3:30 PM EDT Narrative [facility] [employer] - 12/14/2024 6:58 PM EDT Ingestion of aldair doses of biotin (>5 mg/day) taken within 8 hours of drawing blood sample can interfere with this immunoassay test. Katharine Whitlock MD CHEMISTRY ORDERABLES Final Resu lt Performing Organization Address City/State/[facility] Co de Phone Number [facility] [employer] [address] [facility] , [place] [address] * THYROGLOBULIN ANTIBODY -REF LAB (12/14/2024 12:41 PM EDT) Pathologist [facility] Thyroglob Ab <1.5 0.0 - 4.0 IU/mL 12/16/2024 6:43 AM EDT [employer] Comment: INTERPRETIVE INFORMATION: Thyroglobulin Antibody A value of 4.0 IU/mL or less indicates a negative result for thyroglobulin antibodies. The Thyroglobulin Antibody assay is being performed using the [place] Access DxI method. Performed By: [facility] [address] [place] [id number] Shopfitter: Uvaldo Youssef MD, PhD CLIA Number: [id number] Blood VENOUS BLOOD / Unknown Venipuncture / Unknown 12/14/2024 12:41 PM EDT 12/14/2024 2:31 PM EDT Katharine Whitlock MD IMMUNOLOGY ORDERABLES Final Res ult Performing Organization Address City/State/[facility] Co de Phone Number [facility] [address] [place] [address] * THYROID PEROXIDASE (TPO) ANTIBODY (12/14/2024 12:41 PM EDT) TPO Ab <3.00 <=5.59 IU/mL 12/14/2024 7:09 PM EDT [facility] [employer] Blood VENOUS BLOOD / Unknown Venipuncture / Unknown 12/14/2024 12:41 PM EDT 12/14/2024 2:22 PM EDT Katharine Whitlock MD IMMUNOLOGY ORDERABLES Final Res ult Performing Organization Address [facility] de Phone Number [facility] [employer] [address] , [place] [address] * T3 FREE (12/14/2024 12:41 PM EDT) Pathologist [facility] T3 Free 2.24 2.00 - 4.40 pg/mL 12/14/2024 6:49 PM EDT [facility] [employer] Blood VENOUS BLOOD / Unknown Venipuncture / Unknown 12/14/2024 12:41 PM EDT 12/14/2024 2:23 PM EDT Narrative [facility] [employer] - 12/14/2024 6:49 PM EDT Ingestion of aldair doses of biotin (>5 mg/day) taken within 8 hours of drawing blood sample can interfere with this immunoassay test. Katharine Whitlock MD CHEMISTRY ORDERABLES Final Resu lt Performing Organization Address [facility] Co de Phone Number [facility] [employer] [address] [facility] , [place] [address] * T4, FREE (THYROXINE) (12/14/2024 12:41 PM EDT) Free T4 1.41 0.80 - 1.80 ng/dL 12/14/2024 6:49 PM EDT [facility] [employer] [facility] Blood VENOUS BLOOD / Unknown Venipuncture / Unknown 12/14/2024 12:41 PM EDT 12/14/2024 2:23 PM EDT Narrative [facility] [employer] [facility] - 12/14/2024 6:49 PM EDT Ingestion of aldair doses of biotin (>5 mg/day) taken within 8 hours of drawing blood sample can interfere with this immunoassay test. Katharine Whitlock MD CHEMISTRY ORDERABLES Final Resu Performing Organization Address [facility] Co de Phone Number [facility] [employer] , [place] [phone] * THYROID STIMULATING HORMONE (12/14/2024 12:41 PM EDT) TSH 0.737 0.270 - 4.200 mcIU/mL 12/14/2024 6:49 PM EDT [facility] [employer] Blood VENOUS BLOOD / Unknown Venipuncture / Unknown 12/14/2024 12:41 PM EDT 12/14/2024 2:23 PM EDT Narrative [employer] - 12/14/2024 6:49 PM EDT Ingestion of aldair doses of biotin (>5 mg/day) taken within 8 hours of drawing blood sample can interfere with this immunoassay test. Katharine Whitlock MD CHEMISTRY ORDERABLES Final Resu Performing Organization Address [facility] de Phone Number [facility] [employer] , [place] [address] * PARATHYROID HORMONE INTACT (12/14/2024 12:41 PM EDT) PTH Intact 27.90 15.00 - 65.00 pg/mL 12/14/2024 6:35 PM EDT [facility] Blood VENOUS BLOOD / Unknown Venipuncture / Unknown 12/14/2024 12:41 PM EDT 12/14/2024 2:31 PM EDT Narrative [employer] [facility] - 12/14/2024 6:35 PM EDT Intact [...] Final Resu Performing Organization Address [facility] Co de Phone Number [facility] [employer] [address] , [place] [address] * VITAMIN D, 1,25-DIHYDROXY -REF LAB (12/14/2024 12:41 PM EDT) [facility] Vit D 1,25 46.9 19.9 - 79.3 pg/mL 12/16/2024 2:37 PM EDT [facility] [employer] Comment: INTERPRETIVE INFORMATION: Vitamin D, 1,25-Dihydroxy This test is primarily indicated during patient evaluation for hypercalcemia and renal failure. A normal result does not rule out Vitamin D deficiency. The recommended test for diagnosing Vitamin D deficiency is Vitamin D 25-hydroxy. Performed By: [facility] [address] [place] [address] Shopfitter: Uvaldo Youssef MD, PhD CLIA Number: [id number] Blood VENOUS BLOOD / Unknown Venipuncture / Unknown 12/14/2024 12:41 PM EDT 12/14/2024 2:31 PM EDT Katharine Whitlock MD CHEMISTRY ORDERABLES Final Resu Performing Organization Address [facility] Co de Phone Number [facility] [employer] [address] [place] [address] * VITAMIN D 25 HYDROXY (12/14/2024 12:41 PM EDT) Vit D 25 OH 72.0 30.0 - 150.0 ng/mL 12/14/2024 6:58 PM EDT [facility] [employer] Comment: Preferred: >= 30 ng/mL Insufficient: 21-29 [...] MD CHEMISTRY ORDERABLES Final Resu lt [facility] [employer] [address] [facility] , [place] [address] * LIPID PANEL REFLEX (12/14/2024 12:41 PM EDT) Pathologist [facility] Cholesterol 158 <200 mg/dL 12/14/2024 6:49 PM EDT [facility] [employer] Comment: < 200 Desirable 200 - 239 Borderline High >= 240 High Triglyceride 97 <150 mg/dL 12/14/2024 6:49 PM EDT [employer] Comment: < 150 Normal 150 - 199 Borderline High 200 - 499 High >= 500 Very High HDL 49 >=40 mg/dL 12/14/2024 6:49 PM EDT [employer] Comment: > 60 Optimal 40 - 60 Acceptable < 40 Low LDL Calculated 91 <100 mg/dL 12/14/2024 6:49 PM EDT [employer] Comment: < 100 Optimal 100 - 129 Near or above optimal 130 - 159 Borderline High 160 - 189 High >= 190 Very High The National Institutes of Health (NIH) equation is used for all lipid panels that report calculated LDL (LDL-C). Non-HDL-C Calculated 109 <=129 mg/dL 12/14/2024 6:49 PM EDT [facility] [employer] Comment: <130 Desirable 130-159 Above Desirable 160-189 Borderline High 190-219 High >= 220 Very High Fasting Specimen? Yes None 025 6:49 PM EDT [facility] [employer] [facility] Blood VENOUS BLOOD / Unknown Venipuncture / Unknown 12/14/2024 12:41 PM EDT 12/14/2024 2:23 PM EDT Katharine Whitlock MD CHEMISTRY ORDERABLES Final Resu lt [facility] [employer] [facility] [address] [facility] , [address] [place] [phone] * LIPOPROTEIN (A) (12/14/2024 12:41 PM EDT) Lipoprotein (a) 16 <30 mg/dL 7:13 PM EDT [facility] [employer] [facility] Blood VENOUS BLOOD / Unknown Venipuncture / Unknown 12/14/2024 12:41 PM EDT 12/14/2024 2:23 PM EDT Katharine Whitlock MD CHEMISTRY ORDERABLES Final Resu lt Performing Organization Address City/[facility]/ZIP Co de Phone Number [facility] [facility] [address] [facility] , [place] [address] * LACTIC ACID (12/14/2024 12:41 PM EDT) Lactic Acid 0.9 0.5 - 1.9 mmol/L 12/14/2024 1:41 PM EDT [facility] Blood VENOUS BLOOD / Unknown Venipuncture / Unknown 12/14/2024 12:41 PM EDT 12/14/2024 1:14 PM EDT Katharine Whitlock MD CHEMISTRY ORDERABLES Final Resu lt [facility] [address] [place] [address] * VITAMIN B6 (PYRIDOXINE) -REF LAB (12/14/2024 12:41 PM EDT) Pathologist [facility] Vit B6 37.9 20.0 - 125.0 nmol/L 12/19/2024 5:11 AM EDT [employer] Comment: INTERPRETIVE INFORMATION: Vitamin B6 (Pyridoxal 5-Phosphate) Pyridoxal 5'-phosphate measured in a specimen collected following an 8-hour or overnight fast accurately indicates vitamin B6 nutritional status. Non-fasting specimen concentration reflects recent vitamin intake. This test was developed and its performance characteristics determined by [facility]. It has not been cleared or approved by the [place] Food and Drug Administration. This test was performed in a CLIA certified laboratory and is intended for clinical purposes. Performed By: [facility] [address] [place] [address] Shopfitter: Uvaldo Youssef MD, PhD CLIA Number: [id number] Blood VENOUS BLOOD / Unknown Venipuncture / Unknown 12/14/2024 12:41 PM EDT 12/14/2024 4:56 PM EDT Katharine Whitlock MD CHEMISTRY ORDERABLES Final Resu Performing Organization Address City/[facility]/ZIP Co de Phone Number [facility] [address] [place], [place] [id number] * VITAMIN B12 LEVEL (12/14/2024 12:41 PM EDT) [facility] Vitamin B12 379 232 - 1,245 pg/mL 12/14/2024 6:58 PM EDT [facility] [employer] Blood VENOUS BLOOD / Unknown Venipuncture / Unknown 12/14/2024 12:41 PM EDT 12/14/2024 3:30 PM EDT Narrative [facility] [employer], [facility] - 12/14/2024 6:58 PM EDT Ingestion of aldair doses of biotin (>5 mg/day) taken within 8 hours of drawing blood sample can interfere with this immunoassay test. us Katharine Whitlock MD CHEMISTRY ORDERABLES Final Resu lt [facility], [facility] [address] [facility] , [place] [address] * URIC ACID (12/14/2024 12:41 PM EDT) Pathologist [facility] Uric Acid 3.4 2.4 - 5.7 mg/dL 12/14/2024 6:49 PM EDT [facility], [facility] Blood VENOUS BLOOD / Unknown Venipuncture / Unknown 12/14/2024 12:41 PM EDT 12/14/2024 2:23 PM EDT Katharine Whitlock MD CHEMISTRY ORDERABLES Final Resu Performing Organization Address [facility] Co de Phone Number [facility] [employer], [facility] [address] [facility] , [place] [address] * (ABNORMAL) IRON+TIBC (12/14/2024 12:41 PM EDT) Pathologist [facility] Iron 78 30 - 160 mcg/dL 12/14/2024 6:49 PM EDT [facility] Transferrin 298 200 - 360 mg/dL 12/14/2024 6:49 PM EDT [facility] [employer] Saturation 19(L) 20 - 50 % 12/14/2024 6:49 PM EDT [facility] TIBC 417(H) 250 - 400 mcg/dL 12/14/2024 6:49 PM EDT [facility], [facility] Blood VENOUS BLOOD / Unknown Venipuncture / Unknown 12/14/2024 12:41 PM EDT 12/14/2024 2:23 PM EDT Katharine Whitlock MD CHEMISTRY ORDERABLES Final Resu Performing Organization Address City/[facility]/ZIP Co de Phone Number [facility] [employer], [facility] [address] [facility] , [place] [address] * (ABNORMAL) COMPREHENSIVE METABOLIC PANEL (12/14/2024 12:41 [...] mL/min/1.7 3 m2 12/14/2024 6:49 PM EDT [facility] Comment:Estimated GFR was ca lculated using the CKD-EPIcr (2020) equation refit without race. The equation is recommended by the National Kidney Foundation - [place] [employer] Neph[employer] Task Force. Blood VENOUS BLOOD / Unknown Venipuncture / Unknown 12/14/2024 12:41 PM EDT 12/14/2024 2:23 PM EDT us Katharine Whitlock MD CHEMISTRY ORDERABLES Final Resu lt Performing Organization Address City/[facility]/ZIP Co de Phone Number [facility] [employer] [facility] [address] [facility] , [place] [address] * C-REACTIVE PROTEIN (12/14/2024 12:41 PM EDT) [facility] CRP <3.00 <=5.00 mg/L 12/14/2024 7:13 PM EDT [facility] [employer] Blood VENOUS BLOOD / Unknown Venipuncture / Unknown 12/14/2024 12:41 PM EDT 12/14/2024 2:23 PM EDT Result [facility] Katharine Whitlock MD CHEMISTRY ORDERABLES Final Resu lt Performing Organization Address City/[facility] Co de Phone Number [facility] [employer] [address] [facility] , [place] [address] documented in this encounter Visit Diagnoses Diagnosis Acquired hypothyroidism Unspecified hypothyroidism Chronic fatigue Other malaise and fatigue Other hyperlipidemia Vitamin D deficiency Unspecified vitamin D deficiency Secondary adrenal insufficiency Glucocorticoid deficiency documented in this encounter Additional Health Concerns Assessment Noted Time A fall risk assessment has been complete d for the patient 07/28/2022 2:08 PM EDT documented as of this encounter Care Teams Bite Block Maker Relationship Specialty Start Date End Date Na Ang MD [address] [phone] Consulting Physician Ophthalmology 07/10/20 documented as of this encounter
[2024-12-24 16:34] LABS: Microscopic, Urine URINE MICROSCOPIC (MICROSCOPIC)
[2024-12-24 18:56] LABS: Bilirubin,Urine Negative (Negative); Color,Urine YELLOW (Yellow); Glucose,Urine (UA) Negative (Negative); Ketones,Urine Negative (Negative); Leukocyte Esterase,Urine Negative (Negative); PH,Urine 6.0 (5.0-8.5); Protein,Urine Negative (Negative); Specific Gravity, Urine <= 1.005 (1.005-1.030); Urobilinogen,Urine 0.2 EU/dl (0.2)
[2024-12-24 20:26] LABS: Bacteria,Urine Trace /lpf; RBC,Urine Occasional #/hpf (0-3); Squamous Epithelial Cell,Urine Occasional #/hpf (0-5); WBC,Urine Occasional #/hpf (0-3)
--- OUTSIDE RECORDS SUMMARY | 2024-12-26 10:15 | XMS_ITS | Clinical Summary ---
Author Organization [facility] Address [address] [facility] [address] [place] [address] Phone Care Team Providers Care Relocation Director Name Role Phone Unavailable Unavailable Conditions or Problems No information available. Medications No information available. Medications Administered No information available. Allergies, Adverse Reactions, Alerts No information available. Results No information available. Plan of Care No information available. Procedures No information available. Vital Signs No information available. Immunizations No information available. Advance Directives No information available.
--- OUTSIDE RECORDS SUMMARY | 2024-12-26 10:16 | XMS_ITS | Continuity of Care Document ---
Author Organization [facility] Address [facility] [place] [address] Phone Care Team Providers Care Jewelry Dipper Name Role Phone Na Ang MD Unavailable [phone] Encounters Date Type Department Care Team Description 5 12:28 PM EDT - 5 11:59 PM EDT Hospital Encounter [facility]OV [facility] [address] [place] [phone] Acquired hypothyroidism; Chronic fatigue; Other hyperlipidemia; Vitamin D deficiency; Secondary adrenal insufficiency Discharge Disposition: Home or Self Care 5 Results Follow-Up [facility] [address] [phone] Katharine [place] MD THYROID, C-REACTIVE PROTEIN, COMPREHENSIVE METABOLIC PANEL, Additional followed-up results: 26 5 12:22 PM EDT - 5 11:59 PM EDT Hospital Encounter [facility] [address] [place] [address] Katharine [place] MD Acquired hypothyroidism Discharge Disposition: Home or Self Care 5 Results Follow-Up [facility] [address] [place] [address] Katharine [place] MD CALCITRIOL- COMPUNET, T3 FREE, VITAMIN B6 (PYRIDOXINE) -REF LAB, Additional followed-up results: 18 5 12:30 PM EDT Office Visit [facility] [address] [place] [address] Katharine [place] MD Acquired hypothyroidism (Primary Dx); Secondary adrenal insufficiency; Chronic fatigue; Other hyperlipidemia; Vitamin D deficiency 5 1:00 PM EDT Office Visit [facility] [address] [place] [address] Na Ang MD Pseudophakia (Primary Dx); Bilateral ocular hypertension; Optic neuropathy, left 5 Telephone [facility] [address] [place] [address] Na Ang MD Other (Confirmation Call.) 4 1:20 PM EDT Office Visit [facility] [address] [place] [address] Na Ang MD Keratitis sicca, bilateral (HCC) (Primary Dx) 4 11:00 AM EDT Office Visit [facility] [address] [employer] [place] [address] Na Ang MD Optic neuropathy, left (Primary Dx); Bilateral ocular hypertension 3 Patient Outreach [facility] [address] [place] [address] Marlyn Mendez, Bottoming Room Supervisor Medication Management (Statin Non-adherence) 3 Travel 3 1:50 PM EDT Office Visit [facility] [address] [employer] [address] [address] Na Ang MD Keratitis sicca, bilateral (HCC) (Primary Dx); Pseudophakia; Bilateral ocular hypertension; Optic neuropathy, left 3 Patient Outreach [facility]P [facility] [address] [place] [address] Janet Vogt MD Central Order Completion Outreach (DEXA) 3 Telephone [facility] [address] [facility] [address] [place] [address] Na Ang MD Other (Appt Reschedule) 3 Telephone [facility] [address] [facility] [address] [place] [address] Na Ang MD Other (Appt Reschedule) 3 Patient Outreach [facility]P [facility] [address] [place] [address] Lon Victoria CPhT Medication Management (Clinical Consolidator: webfed offset press operator [phone] ) 3 Patient Outreach SEP [facility] [address] [place] [address] Lon Victoria CPhT Medication Management (Clinical Consolidator: webfed offset press operator [phone] ) 3 Patient Outreach SEP [facility] [address] [place] [address] Lon Victoria, Anjum Medication Management (Clinical Stage Producer: webfed offset press operator [phone]) 3 Refill [facility]P [facility] [address] [place] [address] Gerardo Purcell MD Medication Refill 3 Refill SEP [facility] [address] [place] [address] Janet Vogt MD Medication Refill 3 Refill [facility] [address] [place] [address] Gerardo Purcell MD Medication Refill 3 Orders Only SEP [facility] [address] [place] [address] Chen Cano, MARISSA Hospital discharge follow-up (Primary Dx) 3 Telephone SEP H&V [address] [address] Kendy Biggs DO Hypertension 3 2:45 PM EDT Office Visit [facility] [address] [address] Oumar Alves MD Spinal stenosis of lumbar region without neurogenic claudication (Primary Dx); DDD (degenerative disc disease), lumbar; Lumbar pain 3 Telephone SEP [facility] [address] [address] Janet Vogt MD Appointment Needed (ED fu ) 3 Telephone SEP [facility] [address] [address] Janet Vogt MD Symptom Call 3 1:45 PM EDT Ancillary Procedure [facility] [address] [place] [address] Oumar Alves MD Cervical pain 3 1:30 PM EDT [facility] [address] [place] [address] Oumar Avles MD Spinal stenosis of lumbar region without neurogenic claudication (Primary Dx); Cervical pain; Bilateral leg pain; DDD (degenerative disc disease), lumbar; Trochanteric bursitis of right hip 3 2:45 PM EDT Office Visit SEP H&V [address] [address] Kendy Biggs DO Nonobstructive atherosclerosis of coronary artery (Primary Dx); Essential hypertension; Heart murmur; Dyslipidemia; Uncontrolled hypertension 3 Travel 3 8:41 AM EDT - 3 11:59 PM EDT Hospital Encounter [facility] [place] [address] Gerardo Purcell MD Gastroesophageal reflux disease with esophagitis without hemorrhage Discharge Disposition: Home or Self Care 3 Refill [facility] [place] [address] [place] [address] Kendy Biggs, Medication Refill 3 1:45 PM EDT Office Visit [facility] [address] [place] [address] Pebbles Will APRN Primary osteoarthritis of right knee (Primary Dx); Lumbar radiculopathy; Neuropathic pain; Myofascial pain; Sacroiliitis; Pain in both lower extremities; Chronic pain of right thumb; Spondylosis of lumbosacral region without myelopathy or radiculopathy; DDD (degenerative disc disease), lumbar 3 Telephone [facility]P [facility] [address] [place], [place] [id number] Gerardo Purcell MD Other; Medication Management 3 Telephone [facility] Urology NPTFTT [address] [place] [address] Sandra Murrell PA-C Results 3 2:00 PM EDT Office Visit [facility] [address] [place] [address] Janet Vogt MD Essential hypertension (Primary Dx); Peripheral neuropathy, idiopathic; Restless legs syndrome (RLS) 3 3:45 PM EDT Office Visit [facility] [address] [place] [address] Pebbles Will APRN Primary osteoarthritis of right knee (Primary Dx) 3 10:40 AM EDT Office Visit [facility] NPT[facility] [address] [place] [address] Sandra Murrell PA-C Group beta Strep positive (Primary Dx); Urinary retention; Cauda equina syndrome with neurogenic bladder (HCC) 3 Telephone [facility] NPT[facility] [address] [place] [phone] Sandra Murrell PA-C Patient Question 3 Telephone [facility] [place] [address] [place] [address] Kendy Biggs DO Patient Question (Patient was just released from hospital and has some questions for Dr. Biggs's MA about her blood pressure. Please call her back) 3 1:20 PM EDT Office Visit [facility] [address] [facility] [place] [address] Gerardo Purcell MD Acute gastritis without hemorrhage, unspecified gastritis type (Primary Dx) 3 Travel 3 3:00 PM EDT - 3 6:16 PM EDT Emergency [facility] [address] [place] [phone] Sameer Gan MD Dysuria (Primary Dx); Suprapubic pressure Discharge Disposition: Home or Self Care 3 2:30 PM EDT Office Visit [facility] [address] [place] [address] Oumar Alves MD Spinal stenosis of lumbar region without neurogenic claudication (Primary Dx) 3 1:20 PM EDT Office Visit [facility] [address] [facility] [place] [address] Gerardo Purcell MD Cauda equina syndrome with neurogenic bladder (HCC) (Primary Dx); Irritable bowel syndrome with constipation; Gastroesophageal reflux disease without esophagitis 3 1:15 PM EST Ancillary Procedure [facility] [address] [place] [address] Oumar Alves MD Lumbar pain 3 1:00 PM EST Office Visit [facility] [address] [place] [phone] Oumar Alves MD Spinal stenosis of lumbar region without neurogenic claudication (Primary Dx); DDD (degenerative disc disease), lumbar; Lumbar pain 3 Travel 3 1:10 PM EST - 3 11:59 PM EST Hospital Encounter [facility] [place] [address] Peripheral neuropathy, idiopathic (Primary Dx); Nail disease; Macronychia; Encounter for laboratory testing for COVID-19 virus; Essential hypertension; Other hyperlipidemia; Acquired hypothyroidism; Pre-op testing Discharge Disposition: Home or Self Care 3 Travel 3 2:05 PM EST - 3 11:59 PM EST Hospital Encounter [facility] [place] [address] Macronychia (Primary Dx); Nail disease Discharge Disposition: Home or Self Care 3 Telephone [facility] [address] [address] Mikey Christian MD Prior Authorization (Right Knee Inj) 3 2:15 PM EST Office Visit [facility] [address] [place] [phone] Mikey Christian MD Lumbar radiculopathy; Neuropathic pain; Myofascial pain 3 Refill SEP H&V NPTFTT [address] [place] [phone] Kendy Biggs DO Medication Refill 3 1:10 PM EST Office Visit [facility] [address] [facility] [address] [place] [address] Na Ang MD Optic neuropathy, left (Primary Dx); Bilateral ocular hypertension 3 Telephone [facility] [address] [place] [address] Gerardo Purcell MD Medication Management (FOR HEMORRHOIDS) 3 Travel 3 1:31 PM EST - 3 11:59 PM EST Hospital Encounter [facility] [address] [place] [address] Janet Vogt MD Abdominal pain, unspecified abdominal location Discharge Disposition: Home or Self Care 3 Orders Only [facility] NPT[facility] [address] [place] [address] Sandra Murrell PA-C Cauda equina syndrome with neurogenic bladder (HCC) (Primary Dx) 3 3:20 PM EST Office Visit [facility] NPT[facility] [address] [place] [address] Sandra Murrell PA-C Microhematuria (Primary Dx) 2 11:00 AM EST Office Visit [facility] [address] [place] [address] Janet Vogt MD Influenza A (Primary Dx); Abdominal pain, unspecified abdominal location; Menopause; Essential hypertension 2 Patient Outreach SEP [address] [place], [place] [id number] Anh Brown, KIRSTEN, COS CM - Referral Line 2 5:51 AM EST - 2 8:24 AM EST Emergency [facility] [address] [facility] [place], [place] [id number] Jonas Mayorga MD Patel, Dhruv P, MD Influenza A (Primary Dx); Hematuria, unspecified type Discharge Disposition: Home or Self Care 2 10:15 AM EST Office Visit [facility] [address] [place] [address] Mikey Christian MD Myofascial pain; Lumbar radiculopathy; Neuropathic pain 2 Refill [facility]P H&V NPTFTT [address] [place] [address] Kendy Biggs, DO Medication Refill 2 Refill [facility] [address] [place] [address] Gerardo Purcell MD Medication Refill 2 9:15 AM EDT Office Visit [facility] [address] [place] [address] Mikey Christian MD Lumbar radiculopathy (Primary Dx); Myofascial pain; Neuropathic pain 2 Travel 2 7:36 AM EDT - 2 11:59 PM EDT Hospital Encounter [facility] [address] [place] [address] Emg, Fredo Ftt Lumbosacral radiculopathy (Primary Dx); Pain in both lower extremities; Carpal tunnel syndrome of left wrist Discharge Disposition: Home or Self Care 2 2:20 PM EDT Ancillary Procedure [address] [phone] Denae Reis MD Cough, unspecified type Discharge Disposition: Home or Self Care 2 1:30 PM EDT Office Visit [address] [address] Denae Reis MD Cough, unspecified type (Primary Dx); Bronchitis 2 2:15 PM EDT Office Visit [facility] [address] [place] [address] Mikey Christian MD Pain in both lower extremities (Primary Dx); Acute bilateral low back pain without sciatica; Sacroiliitis; Myofascial pain 2 10:20 AM EDT Office Visit [facility] [address] [facility], [place] [phone] Gerardo Purcell MD Irritable bowel syndrome with constipation (Primary Dx); Gastroesophageal reflux disease without esophagitis; Cauda equina syndrome with neurogenic bladder (HCC); Nausea; External hemorrhoids 2 2:00 PM EDT Office Visit SEP H&V [address] [phone] Kalyan, Kendy, DO Nonobstructive atherosclerosis of coronary artery (Primary Dx); Essential hypertension; Heart murmur; Dyslipidemia 2 Refill [facility] [address] [place] [address] Janet Vogt MD Medication Refill 2 2:50 PM EDT Office Visit [address] [place] [address] Mikey Christian MD Sacroiliitis 2 1:20 PM EDT Office Visit [facility] Urology NPTFTT [address] [place] [address] Sandra Murrell PA-C Incomplete bladder emptying (Primary Dx); Urinary retention; Cauda equina syndrome with neurogenic bladder (HCC); Slow transit constipation 2 Telephone SEP H&V NPTFTT [address] [place] [address] Kalyan, Kendy, DO Medication Refill 2 Telephone SEP H&V [address] [phone] Kalyan, Kendy, DO Medication Refill 2 Patient Outreach SEP [facility] [address] [place] [address] Janet Vogt MD Central Patient Navigator Outreach (AWV) 2 Telephone [place] [address] [address] [place] [address] Mikey Christian MD Prior Authorization (SI joint injection) 2 2:15 PM EDT Office Visit [facility] [address] [place] [address] Mikey Christian MD Myofascial pain (Primary Dx); Acute bilateral low back pain without sciatica; Sacroiliitis 2 Orders Only [facility] [address] [facility] [address] [place] [address] Mikey Christian MD Myofascial pain (Primary Dx) 2 9:30 AM EDT Office Visit [facility] SPINE [address] [place] [address] Mikey Christian MD Chronic pain of right thumb 2 Refill [facility]P G[facility] [address] ENTRANCE, 3RD [place] [address] Gerardo Purcell MD Medication Refill 2 Telephone [facility]P [facility] [address] ENTRANCE, 3RD [place] [address] Gerardo Purcell MD Other 2 9:40 AM EDT Office Visit [facility] Urology NPTFTT [address] [place] [address] Sandra Murrell PA-C Urinary retention (Primary Dx); Slow transit constipation; Hemorrhoids, unspecified hemorrhoid type; Incomplete bladder emptying 2 11:20 AM EDT Office Visit [facility] Urology NPTFTT [address] [place] [address] Sandra Murrell PA-C Feeling of incomplete bladder emptying (Primary Dx); Urinary retention; Slow transit constipation 2 Patient Outreach [place] [address] [place] [address] Anh Brown, BS, COS ED Follow-Up Call 2 2:29 AM EDT - 2 6:04 AM EDT Emergency [facility] [place] [address] Arthur Rodriguez MD Acute on chronic urinary retention (Primary Dx); Hemorrhoids, unspecified hemorrhoid type Discharge Disposition: Home or Self Care 2 Nurse Triage [place] [address] [place] [address] Kat Vizcaino RN 2 Travel 2 9:15 PM EDT - 2 10:11 PM EDT Emergency [facility] [place] [address] Arthur Pruett MD Fecal impaction in rectum (HCC) (Primary Dx); External hemorrhoids without complication Discharge Disposition: Home or Self Care 2 Nurse Triage SEP [address] [place] [address] Ne Betancourt RN 2 Refill SEP H&V NPTFTT [address] [place] [address] Kendy Biggs, DO Medication Refill 2 1:00 PM EDT Office Visit [facility]P Ophthalmology [address] [place] [address] Na Ang MD Keratitis sicca, bilateral (HCC) (Primary Dx); Optic neuropathy, left; Bilateral ocular hypertension; Nuclear sclerotic cataract of right eye [address] [place] [address] Mikey Christian MD Prior Authorization (Right Thumb Injection) 2 10:30 AM EDT Office Visit [facility]P SPINE [address] [place] [address] Mikey Christian MD Acute bilateral low back pain without sciatica 2 Refill [facility] [place] [address] [place] [address] Arun Biggsi, DO Medication Refill 2 11:20 AM EDT Office Visit [facility] Urology NPTFTT [address] [place] [address] Sandra Murrell PA-C Feeling of incomplete bladder emptying (Primary Dx); Incomplete bladder emptying; Cauda equina syndrome with neurogenic bladder (HCC); Slow transit constipation; Stranguria 03/31/202 2 2:45 PM EDT Office [place] [address] Kendy iBggs DO Coronary artery disease involving paiute-shoshone coronary artery of paiute-shoshone heart without angina pectoris (Primary Dx); Essential hypertension; Nonobstructive atherosclerosis of coronary artery; Dyslipidemia 2 3:30 PM EDT Office Visit SEP SPINE [address] [place] [phone] Mikey Christian MD Sacroiliitis (Primary Dx); Acute bilateral low back pain without sciatica; Spondylosis of lumbosacral region without myelopathy or radiculopathy; DDD (degenerative disc disease), lumbar 2 Refill [facility]P SP[facility] [address] [place] [address] Mikey Christian MD Medication Refill 2 [place] [address] Kendy Biggs DO Medication Refill 2 Telephone [place] [address] Kendy Biggs DO Medication Question 2 [place] [address] Oumar Alves MD 2 11:00 [place] [address] Oumar Alves MD Spinal stenosis of lumbar region, unspecified whether neurogenic claudication present (Primary Dx) 2 Telephone SEP H&V [address] [address] Kendy Biggs DO Other [address] [address] Oumar Alves MD Other 2 Telephone [facility] [address] [place] [address] Mikey Christian MD Prior Authorization (Right GTB) 2 Telephone [facility] [address] [place] [address] Mikey Christian MD Other (Questions Regarding Procedures.) 2 Orders Only [facility] [address] [place] [address] Mikey Christian MD DDD (degenerative disc disease), lumbar (Primary Dx) 2 1:20 PM EST Office Visit [facility] [address] [place] [address] Mikey Christian MD Acute bilateral low back pain without sciatica 2 Travel 2 12:07 PM EST - 2 11:59 PM EST Hospital Encounter [facility] [address] [place] [address] Mikey Christian MD Acute bilateral low back pain without sciatica Discharge Disposition: Home or Self Care 2 Travel 2 11:00 AM EST Office Visit [facility] [address] [place] [address] Mikey Christian MD Acute bilateral low back pain without sciatica (Primary Dx); DDD (degenerative disc disease), lumbar 1 Patient Outreach [place] [address] [place] [address] Valeria Muñoz, [employer] Follow-Up Call 1 Travel 1 8:52 PM EST - 1 11:06 PM EST Emergency [facility] [address] [place] [address] Rubi Martinez MD Acute exacerbation of chronic low back pain (Primary Dx) Discharge Disposition: Home or Self Care 1 6:48 PM EST - 1 7:04 PM EST Emergency [facility] [place] [address] Discharge Disposition: Left Without Being Seen 1 Telephone [facility] [place] [address] Kendy Biggs, DO Medication Reaction 1 Travel 1 11:00 AM EST Office Visit [facility] [address] [address] Janet Vogt MD Upper respiratory tract infection, unspecified type (Primary Dx); Insomnia, persistent 1 10:00 AM EST Office Visit [facility] Urology NPTFTT [address] [place] [address] Sandra Murrell PA-C Incomplete bladder emptying (Primary Dx); Dysuria; UTI symptoms 1 Travel 1 11:30 AM EST Office Visit [facility] [place] [address] [address] Janet Vogt MD Muscle strain of chest wall, initial encounter (Primary Dx); Insomnia, persistent 1 Telephone [facility] 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, unspecified lagophthalmos type; Pseudophakia of both eyes; Optic neuropathy, left 1 Refill SEP H&V CV [address] [place] [address] Kendy Biggs, Medication Refill 1 Telephone SEP H&V [address] [address] KalyanKendy ortiz DO Labs Only 1 Refill SEP H&V CV [place] [address] [address] Kendy Biggs, Medication Refill 1 Telephone SEP H&V [address] [address] Kendy Biggs, Hypertension; Dizziness 1 Travel 1 2:40 PM EDT Office Visit [facility] Gastro [facility] [address] ENTRANCE, 3[place] [address] Gerardo Purcell MD Irritable bowel syndrome with constipation (Primary Dx); Gastroesophageal reflux disease, unspecified whether esophagitis present; Chronic cholecystitis 1 Travel 1 9:45 AM EDT Office Visit [facility] H&V [address] [address] Kendy Biggs, Uncontrolled hypertension (Primary Dx); Dyslipidemia; Coronary artery disease involving paiute-shoshone coronary artery of paiute-shoshone heart without angina pectoris; Nonobstructive atherosclerosis of coronary artery 1 Nurse Triage [facility] [address] [place] [address] Lelo Dawkins, MARISSA 1 Telephone [facility] H&V [address] [address] Kendy Biggs, Medication Problem 1 Orders Only [facility] [address] [place] [address] Yara Anders, [facility] 1 Telephone SEP Gen Surg [facility] [address] [facility] [address] [place] [address] Geoff Gan MD Other 1 2:00 PM EDT Office Visit [facility] [address] [place] [address] Page Chatterjee, RN Encounter for counseling for care management of patient with chronic conditions and complex health needs using nurse-based model (Primary Dx) 1 1:00 PM EDT Office Visit [facility] Care [address] [place] [address] Janet Vogt MD Insomnia, persistent (Primary Dx); Irritable bowel syndrome with constipation 1 Travel 1 2:45 PM EDT Office Visit SEP Gen Surg [facility] [address] [facility] [address] [place] [address] Geoff Gan MD S/P laparoscopic cholecystectomy (Primary Dx); Anxiety 1 Telephone SEP H&V CV [place] [facility] [address] [place] [address] Kalyan, Kendy, DO Hypotension; Fatigue 1 Patient Outreach SEP [facility] Transformation [facility] [address] [place] [address] Gracie Barba BA, COS ED Follow-Up Call 1 Travel 1 11:34 AM EDT - 1 4:47 PM EDT Emergency [facility] [place] [address] Tiana Orosco MD Spellman, Paul E, MD Non-intractable vomiting with nausea, unspecified vomiting type (Primary Dx) Discharge Disposition: Home or Self Care 1 Telephone [facility] [address] [address] Janet Vogt MD Symptom Call (after surgery ) 1 Telephone SEP Vascular Surg Edg [address] [facility] [address] [place] [address] De La Rosa Liliya CariMARVIN Symptom Call (nausea) 1 Travel 1 1:30 PM EDT - 1 3:55 PM EDT Surgery EDG [facility] [place] [address] Geoff Gan MD DAVINCI ROBOTIC CHOLECYSTECTOMY 1 1:38 PM EDT Anesthesia Event EDG [facility] [place] [address] Denae Galarza MD Merkle Serey, Jennifer L, NP 1 12:04 PM EDT - 1 5:36 PM EDT Hospital Encounter EDG SAME DAY SURGERY [facility] [place] [address] Geoff Gan MD Calculus of gallbladder without cholecystitis without obstruction; Calculus of gallbladder without cholecystitis without obstruction Discharge Disposition: Home or Self Care 1 Travel 1 1:00 PM EDT - 1 11:59 PM EDT Hospital Encounter [facility] [address] [place] [address] Covid19, Edg Lab [facility] Pre-op testing; Encounter for laboratory testing for COVID-19 virus Discharge Disposition: Home or Self Care 1 Orders Only SEP Gen Surg Edg [address] [place] [address] Geoff Gan MD Calculus of gallbladder without cholecystitis without obstruction (Primary Dx) 1 Travel 1 10:30 AM EDT Office Visit [facility] [address] [place] [address] Janet Vogt MD Calculus of gallbladder without cholecystitis without obstruction (Primary Dx); Irritable bowel syndrome with constipation 1 Patient Outreach [facility] [address] [place] [address] Nelson Velázquez LPN ED Follow-Up Call 1 Telephone SEP Gen Surg Edg 254 [address] [facility] [address] [place] [address] Geoff Gan MD Procedure 1 Travel 1 1:08 PM EDT - 1 4:01 PM EDT Emergency [facility] [place] [address] Sameer Coffey MD Constipation, unspecified constipation type (Primary Dx) Discharge Disposition: Home or Self Care 1 Nurse Triage [address] [place] [address] Margarita Coffey RN 1 Travel 1 10:45 AM EDT Office Visit SEP Gen Surg Edg 254 [address] [facility] [address] [place] [address] Geoff Gan MD Calculus of gallbladder without cholecystitis without obstruction (Primary Dx) 1 Patient Outreach [address] [place] [address] Nelson Velázquez LPN ED Follow-Up Call 1 2:19 PM EDT - 1 5:00 PM EDT Emergency [facility] [place] [address] Dre Foley MD Calculus of gallbladder without cholecystitis without obstruction (Primary Dx); Nausea vomiting and diarrhea Discharge Disposition: Home or Self Care 1 Travel 1 3:15 PM EDT Office Visit [facility] [place] [address] [address] Janet Vogt MD Diarrhea, unspecified type (Primary Dx) [facility] [address] [address] Janet Vogt MD Appointment Needed (stomach pain) 1 Travel 1 4:30 PM EDT Office Visit [facility] [address] [address] Lauryn Valiente MD Urinary frequency (Primary Dx); Cystitis 1 Telephone SEP Urology [address] [address] Sandra Murrell PA-C Other 1 Telephone SEP Ophthalmology Cov [address] [address] Na Ang MD Other 1 Refill SEP [address] [address] Otto Arreaga MD Medication Refill 1 Refill SEP [address] [address] Janet Vogt MD Medication Refill 1 Travel 1 9:00 AM EDT Office Visit SEP Urology NPTFTT [address] [place] [address] Heydi Merrill MD Incomplete bladder emptying (Primary Dx); Stranguria; Slow transit constipation; Cauda equina syndrome with neurogenic bladder (HCC); Microhematuria; Nocturia; Frequency of micturition 1 Refill SEP H&V [place] [address] [place] [address] Kendy Biggs, Medication Refill 1 Travel 1 3:10 PM EDT Office Visit SEP Ophthalmology [facility] [address] [place] [address] [address] Na Ang MD Refractive error (Primary Dx); Keratitis sicca, bilateral (HCC); Nuclear sclerotic cataract of right eye [address] [address] Janet Vogt MD Follow-up (dexa scan ) 1 Refill [facility] [address] [place] [address] Janet Vogt MD Medication Refill 1 Travel 1 11:00 AM EDT Clinical Support [facility] [place] [facility] [address] [place] [address] Jayna Farooq MA Encounter for therapeutic drug monitoring (Primary Dx) 1 Travel 1 Travel 1 3:40 PM EDT Office Visit SEP Ophthalmology Cov [address] [place] [address] [facility] [address] [place] [address] Na Ang MD Nuclear sclerotic cataract of right eye (Primary Dx) 1 Travel 1 4:47 PM EDT - 1 11:59 PM EDT Hospital Encounter [facility] [address] [place] [address] Oneal Carrera, DPM Arthritis of left ankle Discharge Disposition: Home or Self Care 1 Orders Only SEP Urology NPTFTT [address] [place] [phone] Heydi Merrill MD Incomplete bladder emptying (Primary Dx) 1 Travel 1 2:30 PM EDT Office Visit SEP Ophthalmology Cov [address] [place] [address] [facility] [address] [place] [phone] Na Ang MD Nuclear sclerotic cataract of right eye (Primary Dx) 1 12:25 PM EDT - 1 12:50 PM EDT Surgery [facility] [address] [place] [address] Na Ang MD CATARACT EXTRACTION WITH PHACOEMULSIFICATION AND INTRAOCULAR LENS 1 12:33 PM EDT Anesthesia Event [facility] [place] [address] [place] [address] Oumar Weiss MD Zehnder, Wende, APRN 1 10:15 AM EDT - 1 1:42 PM EDT Hospital Encounter FTT SAME DAY SURGERY [address] [place] [address] Na Ang MD Nuclear sclerotic cataract of right eye Discharge Disposition: Home or Self Care 1 Travel 1 1:19 PM EDT - 1 11:59 PM EDT Hospital Encounter [facility] [address] [place] [address] Covid19, Edg Lab [place] Pre-op testing; Encounter for laboratory testing for COVID-19 virus Discharge Disposition: Home or Self Care 1 2:29 PM EDT - 1 11:59 PM EDT Hospital Encounter FTT MOB DRAW SITE [address] [place] [address] Essential hypertension; Other hyperlipidemia; Acquired hypothyroidism; Peripheral neuropathy, idiopathic Discharge Disposition: Home or Self Care 1 2:00 PM EDT Office Visit 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 [address] [place] [address] Yara Anders CCMA 1 Travel 1 Travel 1 2:30 PM EDT Office Visit SEP Ophthalmology Cov [address] [place] [address] [facility] [address] [place] [phone] Na Ang MD Nuclear sclerotic cataract of right eye (Primary Dx) 1 Refill SEP Gastro [facility] [address] ENTRANCE, 3[place] [address] Gerardo Purcell MD Medication Refill 1 Travel 1 2:30 PM EDT Office Visit SEP Ophthalmology Cov [address] [place] [address] [address] Na Ang MD Nuclear sclerotic cataract of right eye (Primary Dx); Nuclear sclerotic cataract of left eye 1 2:30 PM EDT - 1 2:55 PM EDT Surgery [facility]TT PERIOP [address] [place] [address] Na Ang MD CATARACT EXTRACTION WITH PHACOEMULSIFICATION AND INTRAOCULAR LENS 1 2:22 PM EDT Anesthesia Event FTT PERIOP [address] [place] [address] Juan Lynn MD Collins, Angela, APRN 1 12:46 PM EDT - 1 3:41 PM EDT Hospital Encounter FTT SAME DAY SURGERY [address] [place] [address] Na Ang MD Nuclear sclerotic cataract of left eye Discharge Disposition: Home or Self Care 1 Travel 1 Travel 1 1:00 PM EDT - 1 11:59 PM EDT Hospital Encounter EDG LAB [address] [id number] Covid19, Edg Lab [place] Pre-op testing; Encounter for laboratory testing for COVID-19 virus Discharge Disposition: Home or Self Care 1 Travel 1 Travel 1 Telephone SEP Ophthalmology Cov [address] [place] [address] [address] Fatoumata Mantilla Follow-up 1 Travel 1 2:50 PM EST Office Visit SEP Ophthalmology Cov [address] [place] [address] [phone] Na Ang MD Nuclear sclerotic cataract of left eye (Primary Dx); Narrow angle glaucoma of left eye; Anatomical narrow angle, bilateral ; Anatomical narrow angle, bilateral 1 Travel 1 Refill SEP Gastro [facility] [address]TRANCE, 3[place] [address] Gerardo Purcell MD Medication Refill 1 Orders Only SEP [place] [address] [address] Yara Anders CCMA Essential hypertension (Primary Dx) 1 Telephone SEP H&V [facility] [place] [address] [place] [address] Kendy Biggs DO Appointment Needed 1 Refill SEP Gastro [facility] [address]TRANCE, 3[address] [place] [address] Gerardo Purcell MD Medication Refill 0 Refill SEP Gastro [facility] [address]TR[address], [address] [place] [address] Gerardo Purcell MD Medication Refill 0 Travel 0 1:02 PM EST - 0 11:59 PM EST Hospital Encounter [place] [facility] [address] [facility] [place] [address] Heydi Merrill MD Incomplete bladder emptying Discharge Disposition: Home or Self Care 0 Travel 0 Travel 0 10:20 AM EST Office Visit SEP Urology NPTFTT [address] [place] [address] Heydi Merrill MD Incomplete bladder emptying (Primary Dx); Stranguria; Slow transit constipation; Cauda equina syndrome with neurogenic bladder (HCC) 0 Orders Only SEP [place] [address] [address] Jamilah Hdez RMA Essential hypertension (Primary Dx) 0 Telephone SEP [facility]. [address] [address] Janet Vogt MD Medication Management (cloNIDine (CATAPRES) 0.2 mg/24 hr TD Patch Weekly 12 Patch 0 04/15/2020 ) 0 Telephone SEP [facility]. [address] [address] Janet Vogt MD Medication Management (cloNIDine (CATAPRES) 0.2 mg/24 hr TD Patch Weekly) 0 Refill SEP [place]. [address] [address] Janet Vogt MD Medication Refill 0 Travel 0 Refill SEP [facility] [address] ENTRANCE, 3[place] [address] Gerardo Purcell MD Medication Refill 0 Travel 0 Telephone SEP [place]. [address] [address] Janet Votg MD Other (needs a return call.) 0 Travel 0 1:30 PM EDT Clinical Support SEP [place]. [address] [address] Jayna Farooq MA Viral URI with cough (Primary Dx) 0 Telephone SEP [facility]. [address] [address] Janet Vogt MD Orders (covid test ) 0 11:45 AM EDT Telemedicine SEP [facility]. [address] [address] Severo Harrell DO Viral URI with cough (Primary Dx) 0 Telephone SEP [place]. [address] [address] Janet Vogt MD Orders (sore throat , body aches ) 0 Travel 0 12:15 PM EDT Ancillary Procedure [facility] [place] [address] [place] [address] Subcutaneous mass of supraclavicular area 0 Travel 0 11:45 AM EDT Office Visit SEP [place] [facility] [address] [place] [address] Janet Vogt MD Subcutaneous mass of supraclavicular area (Primary Dx) 0 Travel 0 Refill [facility] [address] [facility] [address] [place] [address] Gerardo Purcell MD Medication Refill 0 Travel 0 12:14 PM EDT - 0 11:59 PM EDT Hospital Encounter [place] [facility] [address] [facility] [place] [address] Janet Vogt MD Post-menopausal Discharge Disposition: Home or Self Care 0 1:53 PM EDT - 0 11:59 PM EDT Hospital Encounter FTT [facility] DRAW SITE [address] [place] [address] Acute pain of both shoulders Discharge Disposition: Home or Self Care 0 1:00 PM EDT Office Visit SEP [place] [address] [address] Severo Harrell, Acute pain of both shoulders (Primary Dx) 0 Travel 0 Travel 0 Travel 0 6:05 AM EDT - 0 11:59 PM EDT Hospital Encounter [facility] EKG ATTN: Appointments in this department are performed at various locations in the community on our Cardiovascular mobile health unit. You can look online to verify your site or call [phone] [address] Leoncio Haywood APRN Screening for cardiovascular condition Discharge Disposition: Home or Self Care 0 6:03 AM EDT - 0 6:04 AM EDT Hospital Encounter [facility] ECHO VAS ATTN: Appointments in this department are performed at various locations in the community on our Cardiovascular mobile health unit. You can look online to verify your site or call [phone] [address] Leoncio Haywood APRN Screening for cardiovascular condition Discharge Disposition: Home or Self Care 0 Orders Only SEP H&V [facility] [place] [address] [place] [address] Colleen Dunne, [facility] 0 Refill SEP [address] [address] Janet Vogt MD Medication Refill [address] [address] Janet Vogt MD Medication Refill 0 Orders Only SEP H&V [facility] [address] [place] [address] Anderson Alejandra, DARIANA Essential hypertension (Primary Dx) 0 Refill SEP Gastro [facility] [address] ENTRANCE, 3[place] [address] Gerardo Purcell MD Medication Refill 0 Refill SEP H&V [facility] [place] [address] [place] [address] William Presley PA-C Medication Refill 0 Refill SEP Urology NPTFTT [address] [place] [address] Heydi Merrill MD Medication Refill 0 Travel 0 Travel 0 Telephone [facility] [address] [place] [address] Janet Vogt MD Orders 0 Travel 0 2:00 PM EDT Telemedicine [facility] H&V CV[facility] [place] [address] [place] [address] Kendy Biggs DO Nonobstructive atherosclerosis of coronary artery (Primary Dx); Mixed hyperlipidemia; Essential hypertension; Dyslipidemia 0 Travel 0 2:20 PM EDT Office Visit [facility] Urology [address] [address] Heydi Merrill MD Stranguria (Primary Dx); Incomplete bladder emptying; Frequency of micturition; Nocturia 0 Travel 0 Telephone [facility] Urology [address] [address] Heydi Merrill MD Other (trouble with urinating.) 0 Travel 0 Travel 0 11:15 AM EDT Telemedicine [address] [address] Janet Vogt MD Acquired hypothyroidism (Primary Dx); Essential hypertension; Other hyperlipidemia; Incomplete bladder emptying 0 Telephone SEP Gastro [facility] [address], [address] [place] [address] Gerardo Purcell MD Medication Question 0 Telephone [facility]P [facility]astro [facility] [address], [address] [place] [address] Gerardo Purcell MD Medication Management [address] [address] Janet Vogt MD Other 0 Telephone [facility]. [address] [place] [address] Janet Vogt MD Lab Orders (antibody test for CV-19) 0 Travel 0 Lab Requisition [facility] [address] [place], [place] [id number] Gerardo Purcell MD Personal history of colonic polyps; Other specified diseases of intestine 0 Orders Only SEP Gastro [facility] [address]TRANCE, [address] [place] [phone] Gerardo Purcell MD 0 Travel 0 Telephone SEP Gastro [facility] [address], [address] [place] [phone] Roderick Santoyo MD PHD Procedure 0 Telephone [facility]P Gastro [facility] [address]TR[address], [address] [place] [phone] Gerardo Purcell MD Medication Question 0 1:30 PM EST Office Visit SEP Urology NPTFTT [address] [place] [address] Heydi Merrill MD Dysuria (Primary Dx); Incomplete bladder emptying; Urinary urgency; Irritable bowel syndrome with constipation 0 Telephone [facility] Gastro [facility] [address]TR[address], [address] [place] [address] Violeta Victoria APRN Medication Management (ELAVIL PA) 0 Telephone [facility]P Gastro [facility] [address]TR[address], [address] [place] [address] Violeta Victoria APRN Medication Management 0 2:30 PM EST Office Visit SEP Gastro [facility] [address]TR[address], [address] [place] [phone] Violeta Victoria APRN Nausea (Primary Dx); Dry heaves; Abdominal fullness; Hx of colonic polyps; Irritable bowel syndrome with constipation; Special screening for malignant neoplasms, colon 0 Orders Only SEP Urology [address] [address] Handy, Sandra A, PA-C Incomplete bladder emptying (Primary Dx) 0 Telephone [facility] Urology [address] [address] Handy, Sandra A, PA-C Other (medication issues) 0 Orders Only SEP Urology NPTFTT [address] [place] [address] Handy, Sandra A, PA-C 0 Telephone SEP Urology NPTT [address] [place] [address] Handy, Sandra A, PA-C Other 0 1:45 PM EST Office Visit SEP Urology NPTFTT [address] [place] [address] Handy, Sandra A, PA-C Nausea (Primary Dx); Acute UTI; Microhematuria; Incomplete bladder emptying 0 Telephone [facility] Gastro [place] [address] ENTRANCE, 3[place] [address] Gerardo Purcell MD Nausea 9 9:15 AM EST Office Visit SEP Urology [address] [address] Handy, Sandra A, PA-C Incomplete bladder emptying (Primary Dx); Dysuria; Acute UTI 9 1:30 PM EST Office Visit [facility] H&V CV[facility] [place] [address] [place] [address] Kendy Biggs DO Coronary artery disease involving paiute-shoshone coronary artery of pai[place]shoshone heart without angina pectoris (Primary Dx); Heart murmur; Mixed hyperlipidemia; Essential hypertension; Acquired hypothyroidism 9 10:00 AM EST Office Visit [facility] Urology NPTT [address] [place] [address] Heydi Merrill MD Incomplete bladder emptying (Primary Dx); Dysuria; Other constipation 9 Telephone [facility] Gastro [facility] [address] ENTRANCE, 3[place] [address] Gerardo Purcell MD Other 9 2:00 PM EST Office Visit [facility] [place] [address] [address] Janet Vogt MD Dysuria (Primary Dx) 9 2:04 PM EST - 9 11:59 PM EST Hospital Encounter [facility] Mammography [address] [facility]. 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 9 12:45 PM EDT Office Visit [address] [address] Flaca Aguila MD UTI symptoms (Primary Dx) 9 9:15 AM EDT Office Visit [facility] Dermatology [facility] [address] [facility] [address] [place] [address] Chandni Murillo MD History of basal cell carcinoma (BCC) (Primary Dx); SK (seborrheic keratosis); Nevus; Other viral warts; Pain of skin; Disturbance of skin sensation 9 2:45 PM EDT Office Visit [facility] H&V [facility] [address] [place] [address] Kendy Biggs DO Mixed hyperlipidemia (Primary Dx); Coronary artery disease involving paiute-shoshone coronary artery of paiute-shoshone heart without angina pectoris; Heart murmur; Essential hypertension; Acquired hypothyroidism 9 1:15 PM EDT Office Visit [address] [address] Sandee Matthews RMA Chest pain, unspecified type (Primary Dx); SOB (shortness of breath) 9 2:20 PM EDT Office Visit [facility] Gastro [facility] [address] ENTRANCE, 3[place] [address] Gerardo Purcell MD Irritable bowel syndrome with constipation (Primary Dx); History of colon polyps 9 11:15 AM EDT Office Visit [facility] [place] [address] [address] Janet Vogt MD Medicare annual wellness visit, subsequent (Primary Dx); Essential hypertension; Acquired hypothyroidism; Other hyperlipidemia; Strain of neck muscle, initial encounter 9 Patient Outreach [facility] [address] [place] [address] [place], RN Medicare Annual Wellness; Osteoarthritis; Schedule Appointment [address] [address] William Presley PA-C Medication Refill 9 Orders Only [facility] [place] [address] [address] Yara Anders CCMA Essential hypertension (Primary Dx) 9 Telephone [facility] [place] [address] [address] Janet Vogt MD Medication Management 9 Telephone [facility] [place] [address] [address] Janet Vogt MD Medication Management (clonidine ) 9 10:32 AM EDT - 9 11:59 PM EDT Hospital Encounter [facility] MOB DRAW SITE [address] [place] [address] Essential hypertension; Acquired hypothyroidism Discharge Disposition: Home or Self Care 9 10:15 AM EDT Office Visit [facility] [place] [facility] [address] [place] [address] Janet Vogt MD Acquired hypothyroidism (Primary Dx); Essential hypertension; Irritable bowel syndrome with diarrhea; Mixed hyperlipidemia; Other hyperlipidemia 9 Orders Only [facility] Urology [address] [phone] Sandra Murrell PA-C 9 10:00 AM EDT - 9 11:59 PM EDT Hospital Encounter [facility] [address] [place] [address] Slow transit constipation Discharge Disposition: Home or Self Care 9 9:00 AM EDT Office Visit [facility] Urology [address] [phone] Sandra Murrell PA-C Incomplete bladder emptying (Primary Dx); Slow transit constipation; Cauda equina syndrome with neurogenic bladder (HCC) 9 10:30 AM EDT Office Visit [facility] H&V [facility] [place] [facility] [address] [place] [address] William Presley PA-C Uncontrolled hypertension; Chest pain, unspecified type; SOB (shortness of breath); Dizziness; Bradycardia; Mixed hyperlipidemia; Heart murmur 9 2:00 PM EDT Office Visit SEP Ophthalmology [facility] 1500 [facility] [address] [place] [phone] Na nAg MD Keratitis sicca, bilateral; Bilateral ocular hypertension 9 9:20 AM EDT Office Visit [facility] Urology NPTFTT [address] [place] [address] Heydi Merrill MD Incomplete bladder emptying (Primary Dx); Urinary urgency; Chronic constipation; Weak urine stream 9 Telephone SEP &V [facility] [place] [address] [place] [address] Bernadette Louise RMA Visit Follow Up 9 9:51 AM EDT - 11:59 PM EDT Hospital Encounter [facility] [place] [address] Manav Batista MD Screening for condition Discharge Disposition: Home or Self Care 9:20 AM EDT Office Visit SEP Urology NPTFTT [address] [place] [phone] Heydi Merrill MD Urine frequency (Primary Dx); Incomplete bladder emptying; Chronic constipation 10:45 AM EDT Office Visit [facility] [address] [place] [address] Kendy Biggs, Essential hypertension (Primary Dx); Acquired hypothyroidism; Dyslipidemia; Uncontrolled hypertension 9:56 AM EST - 11:59 PM EST Hospital Encounter [facility] VASCULAR LAB [address] [facility] [address] William Presley PA-C Uncontrolled hypertension; SOB (shortness of breath); Dizziness; Chest pain, unspecified type; Mixed hyperlipidemia; Bradycardia; Labile hypertension Discharge Disposition: Home or Self Care 9 2:30 PM EST Office Visit [facility] [address] [place] [address] Eduardo Mejia MD Tinnitus, bilateral (Primary Dx); Dizziness, nonspecific; Bilateral ocular hypertension; Optic neuropathy, left; Essential hypertension; Clicking tinnitus of both ears; Sensorineural hearing loss (SNHL) of both ears 9 2:30 PM EST Office Visit SEP H&V [facility] [address] [address] [place] [address] William Presley PA-C Uncontrolled hypertension (Primary Dx); SOB (shortness of breath); Dizziness; Chest pain, unspecified type; Mixed hyperlipidemia; Bradycardia; Labile hypertension 9 Telephone SEP H&V [facility] [place] [address] [place] [address] Kendy Biggs DO Other 9 Telephone SEP H&V [facility] [place] [address] [place] [address] Kendy Biggs, Appointment Needed 9 1:00 PM EST Office Visit [facility] 1500 [facility] [address] [place] [phone] Na Ang MD Keratitis sicca, bilateral (Primary Dx); Cataract, nuclear sclerotic senile, bilateral; Bilateral ocular hypertension; Optic neuropathy, left 9 11:43 PM EST - 9 3:51 AM EST Emergency [facility] [address] [place] [address] Sameer Coffey MD Hypertension, unspecified type (Primary Dx); Loose stools; Nausea Discharge Disposition: Home or Self Care 9 1:45 PM EST Office Visit [facility] [address] [phone] Na Ang MD Optic neuropathy, left 9 1:48 PM EST - 9 4:19 PM EST Emergency [facility] [address] [place] [address] Jaylyn Talavera MD Nausea (Primary Dx) Discharge Disposition: Home or Self Care 9 Telephone [facility] [address] [phone] Na Ang MD Medication Problem 9 12:20 PM EST - 9 11:59 PM EST Hospital Encounter [facility] [address] [place] [address] Kendy Biggs, Uncontrolled hypertension; Chest pain, unspecified type; SOB (shortness of breath); Dizziness; Bradycardia; Mixed hyperlipidemia; Heart murmur Discharge Disposition: Home or Self Care 9 8:15 AM EST Office Visit [facility] Ophthalmology Cov [address] [place] [address] [place] [phone] Na Ang MD Refractive error (Primary Dx); Keratitis sicca, bilateral; Cataract, nuclear sclerotic senile, bilateral; Bilateral ocular hypertension; Optic neuropathy, left 9 11:00 AM EST Office Visit [facility] [phone] William Presley PA-C Uncontrolled hypertension (Primary Dx); SOB (shortness of breath); Dizziness; Heart murmur; Mixed hyperlipidemia; Bradycardia [address] [phone] Kendy Biggs DO Prior Authorization (benicar) 8 Telephone [facility] [phone] Kendy Biggs DO Hospital Follow Up 8 5:25 PM EST - 8 4:12 PM [facility] Hospital Encounter [facility] [address] [place] [address] Sameer Coffey MD Banks, David, MD Gaston, Richard L, MD Hypertensive urgency (Primary Dx); Lightheadedness Discharge Disposition: Home or Self Care 8 Telephone Adult Med [address] [place] [address] [place] [address] Daisy Garcia APRN Blood Pressure Check [address] [phone] Kendy Biggs DO 8 8:00 AM EST Office Visit [address] [phone] Kendy Biggs DO Uncontrolled hypertension (Primary Dx); Chest pain, unspecified type; SOB (shortness of breath); Dizziness; Bradycardia; Mixed hyperlipidemia; Heart murmur 8 12:52 PM EDT - 8 11:59 PM EDT Hospital Encounter [facility] [address] [place] [address] Elvira Velarde MD Encounter for screening mammogram for malignant neoplasm of breast Discharge Disposition: Home or Self Care 7 2:15 PM EDT Office Visit [facility] Dermatology [facility] [address] [facility] [address] [place] [phone] Chandni Murillo MD Other viral warts (Primary Dx); History of basal cell carcinoma; Nevus; SK (seborrheic keratosis); Khalil angioma; Disturbance of skin sensation 7 1:46 PM EDT - 7 11:59 PM EDT Hospital Encounter [facility] [address] [place] [address] Elvira Velarde MD Encounter for screening mammogram for malignant neoplasm of breast Discharge Disposition: Home or Self Care 7 2:04 PM EDT Hospital Encounter [facility] Referral Lab [address] [place] [address] Oumar Alves MD Low back pain 6 5:30 PM EDT Office Visit [facility] Urgent Care [facility] 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 [address] [place] [address] Elvira Velarde MD Visit for screening mammogram Discharge Disposition: Home or Self Care 5 6:59 AM EDT - 5 11:59 PM EDT Hospital Encounter [facility] ATTN: Appointments in this department are performed at various locations in the community on our Cardiovascular mobile health unit. You can look online to verify your site or call [phone]. [place] [phone] Leoncio Haywood APRN Screening for other and unspecified cardiovascular conditions Discharge Disposition: Home or Self Care 5 12:35 PM EDT - 5 11:59 PM EDT Hospital Encounter [facility] [address] [place] [address] Elvira Velarde MD Other screening mammogram Discharge Disposition: Home or Self Care 4 12:45 PM EDT - 4 11:59 PM EDT Hospital Encounter [facility] [address] [place] [address] Elvira Velarde MD Other screening mammogram Discharge Disposition: Home or Self Care 3 12:56 PM EDT - 3 11:59 PM EDT Hospital Encounter [facility] [address] [place] [address] Elvira Velarde MD Other screening mammogram Discharge Disposition: Home or Self Care 3 1:18 PM EST - 3 11:59 PM EST Hospital Encounter [facility] [address] [place] [place] [address] Geoff Dozier MD Radiculopathy, lumbar region Discharge Disposition: Home or Self Care 2 3:38 PM EST - 2 11:59 PM EST Hospital Encounter [facility] [address] [place] [address] Geoff Dozier MD Right knee pain Discharge Disposition: Home or Self Care 2 2:28 PM EDT - 2 11:59 PM EDT Hospital Encounter [facility] [address] [place] [address] Geoff Gant Thoracic or lumbosacral neuritis or radiculitis, unspecified Discharge Disposition: Home or Self Care 2 1:59 PM EST - 2 11:59 PM EST Hospital Encounter [facility] [place] [address] Claire Barnett Other screening mammogram Discharge Disposition: Home or Self Care 2 6:19 PM EST - 2 11:59 PM EST Hospital Encounter [facility]UWAN PROCESSING [facility] [place] [address] Discharge Disposition: Home or Self Care 1 12:49 PM EST - 1 11:59 PM EST Hospital Encounter [facility] [place] [address] Maxime Araiza MD Osteopenia Discharge Disposition: Home or Self Care 1 11:52 AM EST - 1 12:48 PM EST Hospital Encounter [facility] [place] [address] Provider, Not In [facility] Stress fracture foot; Osteoporosis Discharge Disposition: Home or Self Care 1 11:48 AM EST - 1 11:51 AM EST Hospital Encounter [facility] [place] [address] Britt Domingo MD Other screening mammogram Discharge Disposition: Home or Self Care 9 12:01 AM EDT - 9 11:59 PM EDT Hospital Encounter [facility] Maxime Araiza MD 9 12:01 AM EDT - 9 11:59 PM EDT Hospital Encounter [facility] Maxime Walden MD 9 1:07 PM EDT - 9 11:59 PM EDT Hospital Encounter [facility] Maxime Walden MD 9 12:01 AM EDT - 9 11:59 PM EDT Hospital Encounter [facility] Maxime Walden MD 9 3:44 PM EST - 9 [...] 11:59 PM EDT Hospital Encounter [facility] Roderick Barajas MD 6 12:07 PM EDT - 6 11:59 PM EDT Hospital Encounter [facility] Roderick Barajas MD 4 12:01 AM EDT - 4 11:59 PM EDT Hospital Encounter [facility] Maxime Moran MD 3 12:01 AM EDT - 3 11:59 PM EDT Hospital Encounter [facility] Maxime Jaramillo MD 2 1:31 AM EDT - 2 11:59 PM EDT Hospital Encounter [facility] Maxime Moran MD 2 12:45 PM EST - 2 11:59 PM EST Hospital Encounter [facility] Maxime Walden MD 1 12:57 AM EDT - 1 11:59 PM EDT Hospital Encounter [facility] Maxime Jaramillo MD 0 1:21 AM EDT - 0 11:59 PM EDT Hospital Encounter [facility] Maxime Walden MD 9 5:52 AM EDT - 9 [...] Encounter [facility] Sameer Wu, DPM 5 9:44 AM EST - 5 [...] Oral Tablet Take by mouth daily. Active ondansetron (ZOFRAN) [...] for Pain. 60 Tablet 2 1 Active estradioL (ESTRACE) 0.01 % (0.1 mg/gram) Vagl Cream Use 1 fingertip (1gm) nightly x2 weeks then 2 nights per week, 1 tube 1 refill 42.5 g 1 3 Active Additional Information Patient not taking.Reported on 11/27/2024 pantoprazole (PROTONIX) 40 mg Oral Tablet, Delayed Release (E.C.)Indication s:Gastroesophage al reflux disease without esophagitis Take 1 Tablet by mouth daily. 90 Tablet 3 3 Active Additional Information Patient not taking.Reported on 11/27/2024 famotidine (PEPCID) 40 mg Oral Tablet Take 1 Tablet by mouth daily. 30 Tablet 2 3 Active amLODIPine (NORVASC) 10 mg Oral Tablet 3 [...] mL SubQ Syringe 284 mg. 3 Active clonazePAM (KLONOPIN) 0.5 mg Oral Tablet Take 0.5 mg by mouth. Active azelastine (ASTELIN) 137 mcg (0.1 %) Nasl Aerosol, Wales USE 1 SPRAY(S) IN EACH NOSTRIL TWICE [...] completed by Chen Uribe RN on 04/04/2023. 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 Pt given product suggestions on AVS. Calculus of gallbladder with out cholecystitis without obstruction 11/26/2020 Overview (11/26/2020): Added automatically from request for surgery [id number] Narrow angle glaucoma of left eye 07/10/2020 [...] (08/16/2024 2:03 PM EDT): s/p CEIOL (CPT 56745) for Nuclear sclerotic cataract of right eye [H25.11] on 08/27/2020. s/p CEIOL (CPT 93654) for Nuclear sclerotic cataract of left eye [H25.12] on 07/30/2020. Has developed PCO. Discussed findings, options and risks with patient. She would like to monitor at this time. Assessment & Plan (02/03/2023 2:57 PM EDT): s/p CEIOL (CPT 55873) for Nuclear sclerotic cataract of right eye [H25.11] on 08/27/2020. s/p CEIOL (CPT 15590) for Nuclear sclerotic cataract of left eye [H25.12] on 07/30/2020. Assessment & Plan (10/08/2021 1:20 PM EDT): s/p CEIOL (CPT 98784) for Nuclear sclerotic cataract of right eye [H25.11] on 08/27/2020. s/p CEIOL (CPT 40650) for Nuclear sclerotic cataract of left eye [H25.12] on 07/30/2020. Assessment & Plan (09/25/2020 3:35 PM EDT): s/p CEIOL (CPT 84961) for Nuclear sclerotic cataract of right eye [H25.11] on 08/27/2020. Patient healing as expected. s/p CEIOL (CPT 50951) for Nuclear sclerotic cataract of left eye [H25.12] on 07/30/2020. Patient healing as expected. Assessment & Plan (09/04/2020 4:12 PM EDT): POW1 s/p CEIOL (CPT 22366) for Nuclear sclerotic cataract of right eye [H25.11] on 08/27/2020. Patient healing as expected. Continue post op precautions. Patient to follow up in 3 week(s) s/p CEIOL (CPT 92874) for Nuclear sclerotic cataract of left eye [H25.12] on 07/30/2020. Patient healing as expected. Assessment & Plan (08/28/2020 2:59 PM EDT): POD1 s/p CEIOL (CPT 50748) for Nuclear sclerotic cataract of right eye [H25.11] on 08/27/2020. Patient healing as expected. Continue post op precautions. Patient to follow up in 1 week(s) s/p CEIOL (CPT 77951) for Nuclear sclerotic cataract of left eye [...] to proceed with standard. s/p CEIOL (CPT 04838) for Nuclear sclerotic cataract of left eye [H25.12] on 07/30/2020. Patient healing as expected. Assessment & Plan (07/31/2020 2:50 PM EDT): POD1 s/p CEIOL (CPT 59623) for Nuclear sclerotic cataract of left eye [...] Family History Medical History Relation Name Comments Lung Cancer Brother 1 Julien Heart Attack Father High Cholesterol Father Alzheimer's Disease Mother Stroke Mother High Cholesterol Sister 1 bypass Sister 1 Lung Cancer Sister 2 Anesth Problems Neg Hx Cataracts Neg Hx Glaucoma Neg Hx Macular Degen Neg Hx Relation Name Status Comments Brother 1 Julien Brother 2 Brother 3 Brother 4 Father Mother Sister 1 Sister 2 Sister 3 Alive Social History Smoking Status as of 12/26/2024 Tobacco Use Types Packs/Day Years Used Date Smoking Tobacco: Never Assessed Overall Financial Resource Strain (CARDIA) Answe r Date Recorded How hard is it for you to pa y for the very basics like food, housing, medical care, and heating? Not hard at all 11/25/2020 PHQ-2 Answer Date Recorded PHQ-2 Total Score 0 07/28/2022 [facility] - Occupational Stress [...] Pulse 67 11/27/2024 12:23 PM EDT Temperature 36.8 C (98.2 F) 07/28/2022 2:07 PM EDT Respiratory Rate 16 11/27/2024 12:23 PM EDT Oxygen Saturation 99% 08/27/2022 2:14 PM EDT Inhaled Oxygen Concentration - - Weight 68.9 kg (152 lb) 11/27/2024 12:23 PM EDT Height 165.1 cm (5' 5 ) 11/27/2024 12:23 PM EDT Body Mass Index 25.29 11/27/2024 12:23 PM EDT Plan of Treatment Upcoming Encounters Date Type Department Care Team (Late st Contact Info) Description 01/16/2025 11:30 AM EDT Telemedicine [facility] 1500 [facility] [address] [place] [phone] Katharine Whitlock MD [address] [phone] 08/15/2025 1:40 PM EDT Office Visit [facility] 1500 [facility] [address] [place] [phone] Na Ang MD [address] [phone] Medical Devices Implanted Type Area Pull Tab Dealer Device Identifier Shelf Expiration Date Model / Serial / Lot Lens +22.5d 6x13mm [employer] I[employer] Ultrasert [id number] Pc 1-Pc - [id number] Implanted:Qty: 1 on 07/30/2020 by Na Ang MD at [facility] Left: Eye [facility]G [id number] 02/25/2023 AU00T0 .225 / [id number] / Lens +23d 6x13mm [employer]q Ultrasert [id number] Pc 1-Pc Basell - [id number] Implanted:Qty: 1 on 08/27/2020 by Na Ang MD at [facility] Right: Eye [employer] [facility]G [id number] 03/21/2023 AU00T0.230 / [id number] / Procedures Procedure Name Priority Date/Time [...] Secondary adrenal insufficiency Acquired hypothyroidism Chronic fatigue GLUC HYPOGLYCEMIA FASTING (GTT) Timed 12/14/2024 12:41 PM EDT Secondary adrenal insufficiency Acquired hypothyroidism Chronic fatigue GLUC HYPOGLYCEMIA FASTING (GTT) Timed 12/14/2024 12:41 PM EDT Secondary adrenal insufficiency Acquired hypothyroidism Chronic fatigue ADRENOCORTICOTROPIC HORMONE -REF LAB Routine 12/14/2024 12:41 PM EDT Secondary adrenal insufficiency CORTISOL Routine 12/14/2024 12:41 PM EDT Secondary adrenal insufficiency DEHYDROEPIANDROSTERONE SULFATE Routine 12/14/2024 12:41 PM EDT Secondary adrenal insufficiency LUTEINIZING HORMONE Routine 12/14/2024 12:41 PM EDT Chronic fatigue THYROGLOBULIN ANTIBODY -REF LAB Routine 12/14/2024 12:41 PM EDT Acquired hypothyroidism THYROID PEROXIDASE (TPO) ANTIBODY Routine 12/14/2024 12:41 PM EDT Acquired hypothyroidism T3 FREE Routine 12/14/2024 12:41 PM EDT Acquired hypothyroidism T4, FREE (THYROXINE) Routine 12/14/2024 12:41 PM EDT Acquired hypothyroidism THYROID STIMULATING HORMONE Routine 12/14/2024 12:41 PM EDT Acquired hypothyroidism PARATHYROID HORMONE INTACT Routine 12/14/2024 12:41 PM EDT Vitamin D deficiency VITAMIN D, 1,25-DIHYDROXY -REF LAB Routine 12/14/2024 12:41 PM EDT Vitamin D deficiency VITAMIN D 25 HYDROXY Routine 12/14/2024 12:41 PM EDT Vitamin D deficiency LIPID PANEL REFLEX Routine 12/14/2024 12:41 PM EDT Other hyperlipidemia LIPOPROTEIN (A) Routine 12/14/2024 12:41 PM EDT Other hyperlipidemia LACTIC ACID Routine 12/14/2024 12:41 PM EDT Chronic fatigue VITAMIN B6 (PYRIDOXINE) -REF LAB Routine 12/14/2024 12:41 PM EDT Chronic fatigue VITAMIN B12 LEVEL Routine 12/14/2024 12:41 PM EDT Acquired hypothyroidism URIC ACID Routine 12/14/2024 12:41 PM EDT Acquired hypothyroidism IRON+TIBC Routine 12/14/2024 12:41 PM EDT Acquired hypothyroidism COMPREHENSIVE METABOLIC PANEL Routine 12/14/2024 12:41 PM EDT Acquired hypothyroidism C-REACTIVE PROTEIN Routine 12/14/2024 12:41 PM EDT Acquired hypothyroidism US THYROID Routine 12/12/2024 12:48 PM EDT Acquired hypothyroidism COMPREHENSIVE METABOLIC PANEL Routine 11/27/2024 LIPID SCREEN Routine 11/27/2024 IRON LEVEL AND TIBC Routine 11/27/2024 T4, FREE (THYROXINE) Routine 11/27/2024 DEHYDROEPIANDROSTERONE -REF LAB Routine 11/27/2024 CORTISOL Routine 11/27/2024 THYROID STIMULATING HORMONE Routine 11/27/2024 LUTEINIZING HORMONE Routine 11/27/2024 ADRENOCORTICOTROPIC HORMONE -REF LAB Routine 11/27/2024 VITAMIN D 25 HYDROXY Routine 11/27/2024 LIPOPROTEIN (A) Routine 11/27/2024 URIC ACID Routine 11/27/2024 THYROGLOBULIN -REF LAB Routine 11/27/2024 VITAMIN B12 LEVEL Routine 11/27/2024 LACTIC ACID Routine 11/27/2024 CALCIUM, IONIZED Routine 11/27/2024 C-REACTIVE PROTEIN Routine 11/27/2024 THYROID PEROXIDASE (TPO) ANTIBODY Routine 11/27/2024 VITAMIN B6 (PYRIDOXINE) -REF LAB Routine 11/27/2024 T3 FREE Routine 11/27/2024 CALCITRIOL- COMPUNET Routine 11/27/2024 OCT, OPTIC NERVE - OU - BOTH EYES Routine 08/16/2024 2:02 PM EDT Bilateral ocular hypertension GRUBBS VISUAL FIELD - OU - BOTH EYES Routine 08/18/2023 12:54 PM EDT Bilateral ocular hypertension XR CERVICAL SPINE AP AND LATERAL Routine 09/16/2022 1:45 PM EDT Cervical pain NC ARTHROCENTESIS ASPIR&/INJ MAJOR JT/BURSA W/O US Routine [...] PM EDT UA W/REFLEX TO CULTURE STAT 2:45 PM EDT URINE CULTURE (NO STAIN) [...] hypothyroidism Pre-op testing HEPATIC FUNCTION PANEL Callback 3 1:15 PM EST Peripheral neuropathy, idiopathic Nail disease OCT, OPTIC NERVE - OU - BOTH EYES Routine 05/20/2022 1:52 PM EST Bilateral ocular hypertension CT ABDOMEN PELVIS WO ORAL OR IV CONTRAST Routine 05/12/2022 1:40 PM EST Abdominal pain, unspecified abdominal location 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 Routine 05/05/2022 4:39 PM EST Microhematuria URINALYSIS Routine 05/05/2022 4:39 PM EST Microhematuria URINE CULTURE (NO STAIN) Routine 05/05/2022 4:39 PM EST Microhematuria SEP URINALYSIS POC Routine 05/05/2022 3:21 PM EST Microhematuria URINALYSIS STAT 04/28/2022 7:23 AM EST UA W/REFLEX TO CULTURE STAT 7:23 AM EST EXTRA [place] URINE CX STAT 04/28/2022 7:23 AM EST [id number] A/B Routine 04/28/2022 6:38 AM EST EMG Routine 02/18/2022 Pain in both lower extremities XR CHEST PA AND LATERAL STAT 01/27/20 2:27 PM EDT Cough, unspecified type POCT [...] 2:09 PM EDT COMPLIANCE PANEL, URINE Routine 09/20/19 10:54 AM EDT Encounter for therapeutic drug [...] neuropathy, idiopathic VITAMIN B12/ FOLIC ACID Routine 08/23/19 2:29 PM EDT Peripheral neuropathy, idiopathic CBC [...] emptying Stranguria POCT EDIL SARS ANTIGEN Routine 02/21/20 2:02 PM EDT Upper respiratory tract infection, unspecified type XR CHEST PA AND LATERAL Routine 01/31/20 12:27 PM EDT Subcutaneous mass of supraclavicular area DX BONE DENSITY AXIAL SKELETON Routine 01/18/2020 12:51 PM EDT Post-menopausal SEDIMENTATION RATE AUTOMATED Routine 01/08/2020 1:53 PM EDT Acute pain of both shoulders C-REACTIVE PROTEIN Routine 01/08/2020 1:53 PM EDT Acute pain of both shoulders EK EKG CVMHU SCREENING Routine 0 12:15 PM EDT Screening for cardiovascular condition [facility] CVMHU SCREENING SINGLE EXAM Routine 12/19/2019 [...] Routine 09/07/2018 9:06 AM EDT Urine frequency IL US VISCERAL VASCULAR COMPLETE Routine 07/03/2018 11:27 [...] EST XR CHEST PA AND LATERAL ARTEM 05/29/19 19 2:27 PM EST TROPONIN-T HIGH SENSITIVITY BASELINE [...] EST XR CHEST PA AND LATERAL ARTEM 04/25/20 18 8:22 AM EST ECG AND WAVEFORMS - [...] PM EST CT HEAD STROKE PROTOCOL STAT 04/24/20 18 10:22 PM EST TROPONIN-T HIGH SENSITIVITY BASELINE W/ REFLEX STAT 04/24/2018 10:10 PM EST GLUCOSE METER POC Routine 04/24/2018 10:01 PM EST ECG AND WAVEFORMS - TELEMETRY Routine 04/24/2018 9:48 PM EST IP CONSULT TO CARDIOLOGY STAT 04/24/2018 9:35 PM EST Procedure Note - Concepcion Louise ARNP - 04/25/2018 6:16 AM ESTThis note is in progress. Cardiology Consultation Admission: 04/25/2018 Patient: Gilbert Moreira [id number] PCP:Elvira Velarde Founder: Kendy Biggs MD Presents with hypertension Cardiology consulted for hypertension PMH includes HTN, HLD, hypothyroidism Reports issue with increased blood pressure for past several days.Yesterday while at [facility] checked bp 200/100 [facility] torecheck continued to be elevated. Presented [...] Tab 5 fluticasone (FLONASE) 50 mcg/actuation Nasl Wales, Suspension 1 Wales byNasal route daily. (Patient not taking: Reported [...] byphysician to follow. Stationary ECG StudySt. Jayna DuffyInterpretive StatementsSINUS RHYTHM WITH FIRST DEGREE AV BLOCK [...] most recent cardiovascular imaging studies availabe in [facility] EMR werereviewed at time of consultation Assessment: [...] input to follow per Dr. 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 EK EKG 12 LEAD STAT 04/24/2018 5:42 [...] 1:33 PM EDT Visit for screening mammogram [facility] CVMHU SCREENING SINGLE EXAM Routine [...] Other screening mammogram PATHOLOGY TISSUE REPORT Routine 06/17/19 12 6:44 PM EST SCANNED LABS 04/14/2011 12:00 [...] PM EDT EK AMBULATORY B/P PANEL Routine 07/13/19 09 2:32 PM EDT DX BONE DENSITY SCAN CENTRAL Routine 07/10/2008 11:35 AM EDT WW MAMMO SCREEN W/CAD II PANEL Routine 10/05/2005 12:30 PM EDT Results * GLUCOSE HYPOGLYCEMIA 3 HOUR (GTT) (12/14/2024 4:27 PM EDT) Gluc 3 Hr 57 >=50 mg/dL 12/14/2024 4:58 PM EDT [facility] Blood VENOUS BLOOD / Unknown Venipuncture / Unknown 12/14/2024 4:27 PM EDT 12/14/2024 4:27 PM EDT Katharine Whitlock MD CHEMISTRY ORDERABLES Final Resu lt Performing Organization Address [facility] Co de Phone Number [facility] [address] [place] [address] * GLUCOSE 2.5 HOUR (12/14/2024 3:52 PM EDT) Gluc 2.5 Hr 80 >=50 mg/dL 12/14/2024 4:36 PM EDT [facility] Blood VENOUS BLOOD / Unknown Venipuncture / Unknown 12/14/2024 3:52 PM EDT 12/14/2024 3:52 PM EDT Katharine Whitlock MD CHEMISTRY ORDERABLES Final Resu lt Performing Organization Address City/[facility]/ZIP Co de Phone Number [facility] [address] [place] [address] * GLUCOSE HYPOGLYCEMIA 2 HOUR (GTT) (12/14/2024 3:16 PM EDT) Gluc 2 Hr 84 <140 mg/dL 12/14/2024 3:52 PM EDT [facility] Blood VENOUS BLOOD / Unknown Venipuncture / Unknown 12/14/2024 3:16 PM EDT 12/14/2024 3:16 PM EDT Katharine Whitlock MD CHEMISTRY ORDERABLES Final Resu lt Performing Organization Address [facility] de Phone Number [facility] [address] [place] [address] * GLUCOSE 1.5 HOUR (12/14/2024 2:42 PM EDT) Glu 1.5 Hr 87 mg/dL 12/14/2024 3:31 PM EDT [facility] Blood VENOUS BLOOD / Unknown Venipuncture / Unknown 12/14/2024 2:42 PM EDT 12/14/2024 2:42 PM EDT Katharine Whitlock MD CHEMISTRY ORDERABLES Final Resu lt Performing Organization Address [facility] de Phone Number [facility] [address] [place] [address] * GLUCOSE HYPOGLYCEMIA 1 HOUR (GTT) (12/14/2024 2:11 PM EDT) Gluc 1 Hr 89 - mg/dL 12/14/2024 3:02 PM EDT [facility] Blood VENOUS BLOOD / Unknown Venipuncture / Unknown 12/14/2024 2:11 PM EDT 12/14/2024 2:11 PM EDT Katharine Whitlock MD CHEMISTRY ORDERABLES Final Resu lt Performing Organization Address [facility] de Phone Number [facility] [address] [place] [address] * GLUCOSE .5 HOUR (12/14/2024 1:36 PM EDT) Gluc .5 Hr 136 mg/dL 12/14/2024 2:12 PM EDT [facility] Blood VENOUS BLOOD / Unknown Venipuncture / Unknown 12/14/2024 1:36 PM EDT 12/14/2024 1:34 PM EDT Katharine Whitlock MD CHEMISTRY ORDERABLES Final Resu lt [facility] [address] [place] [id number] * LIPOPROTEIN (A) (12/14/2024 12:41 PM EDT) Only the most recent of2 resultswithin the time period is included. Lipoprotein (a) 16 <30 mg/dL 7:13 PM EDT [facility] Blood VENOUS BLOOD / Unknown Venipuncture / Unknown 12/14/2024 12:41 PM EDT 12/14/2024 2:23 PM EDT Katharine Whitlock MD CHEMISTRY ORDERABLES Final Resu lt Performing Organization Address City/[facility]/ZIP Co de Phone Number [facility], [employer] [address], [place] [address] * (ABNORMAL) IRON+TIBC (12/14/2024 12:41 PM EDT) [...] ORDERABLES Final Resu lt [facility], [facility] [address] [facility] , [address] [place] [id number] * GLUC HYPOGLYCEMIA FASTING (GTT) (12/14/2024 12:41 PM EDT) Glucose Fasting 92 <100 mg/dL 12/14/2024 1:33 PM EDT [facility] Blood VENOUS BLOOD / Unknown Venipuncture / Unknown 12/14/2024 12:41 PM EDT 12/14/2024 1:07 PM EDT Katharine Whitlock MD CHEMISTRY ORDERABLES Final Resu lt [facility] [address] [place] [address] * THYROID PEROXIDASE (TPO) ANTIBODY (12/14/2024 12:41 PM EDT) Only the most recent of2 resultswithin the time period is included. Pathologist [facility] TPO Ab <3.00 <=5.59 IU/mL 12/14/2024 7:09 PM EDT [facility] Blood VENOUS BLOOD / Unknown Venipuncture / Unknown 12/14/2024 12:41 PM EDT 12/14/2024 2:22 PM EDT Katharine Whitlock MD IMMUNOLOGY ORDERABLES Final Res ult Performing Organization Address City/[facility]/ZIP Co de Phone Number [facility] [address] [facility] , [place] [address] * LIPID PANEL REFLEX (12/14/2024 12:41 PM EDT) Only the most recent of2 resultswithin the time period is included. Cholesterol 158 <200 mg/dL 12/14/2024 6:49 PM EDT [facility] Comment: < 200 Desirable 200 - 239 Borderline High >= 240 High Triglyceride 97 <150 mg/dL 12/14/2024 6:49 PM EDT [facility] Comment: < 150 Normal 150 - 199 Borderline High 200 - 499 High >= 500 Very High HDL 49 >=40 mg/dL 12/14/2024 6:49 PM EDT [facility] [employer] Comment: > 60 Optimal 40 - 60 Acceptable < 40 Low LDL Calculated 91 <100 mg/dL 12/14/2024 6:49 PM EDT [facility] Comment: < 100 Optimal 100 - 129 Near or above optimal 130 - 159 Borderline High 160 - 189 High >= 190 Very High The National Institutes of Health (NIH) equation is used for all lipid panels that report calculated LDL (LDL-C). Non-HDL-C Calculated 109 <=129 mg/dL 12/14/2024 6:49 PM EDT [facility] [employer] Comment: <130 Desirable 130-159 Above Desirable 160-189 Borderline High 190-219 High >= 220 Very High Fasting Specimen? Yes None 025 6:49 PM EDT [facility] Blood VENOUS BLOOD / Unknown Venipuncture / Unknown 12/14/2024 12:41 PM EDT 12/14/2024 2:23 PM EDT Katharine Whitlock MD CHEMISTRY ORDERABLES Final Resu lt [facility] [address] [facility] , [place] [address] * VITAMIN D 25 HYDROXY (12/14/2024 12:41 PM EDT) Only the most recent of2 resultswithin the time period is included. Vit D 25 OH 72.0 30.0 - 150.0 ng/mL 12/14/2024 6:58 PM EDT [facility] Comment: Preferred: >= 30 ng/mL Insufficient: 21-29 [...] Whitlock MD CHEMISTRY ORDERABLES Final Resu lt [facility] [address] [facility] , [place] [address] * VITAMIN D, 1,25-DIHYDROXY -REF LAB (12/14/2024 12:41 PM EDT) Pathologist [facility] Vit D 1,25 46.9 19.9 - 79.3 pg/mL 12/16/2024 2:37 PM EDT [facility] Comment: INTERPRETIVE INFORMATION: Vitamin D, 1,25-Dihydroxy This test is primarily indicated during patient evaluation for hypercalcemia and renal failure. A normal result does not rule out Vitamin D deficiency. The recommended test for diagnosing Vitamin D deficiency is Vitamin D 25-hydroxy. Performed By: [facility] [address] [place] [address] [employer] Specialist: Uvaldo Youssef MD, PhD CLIA Number: [id number] Blood VENOUS BLOOD / Unknown Venipuncture / Unknown 12/14/2024 12:41 PM EDT 12/14/2024 2:31 PM EDT Katharine Whitlock MD CHEMISTRY ORDERABLES Final Resu lt [facility] [address], [place] [id number] * (ABNORMAL) DEHYDROEPIANDROSTERONE SULFATE (12/14/2024 12:41 PM EDT) Pathologist [facility] Dhea Sulfate 10.40(L) 12.00 - 154.00 mcg/dL 12/14/2024 6:58 PM EDT [facility] Blood VENOUS BLOOD / Unknown Venipuncture / Unknown 12/14/2024 12:41 PM EDT 12/14/2024 3:30 PM EDT Narrative [facility] - 12/14/2024 6:58 PM EDT Ingestion of aldair doses of biotin (>5 mg/day) taken within 8 hours of drawing blood sample can interfere with this immunoassay test. Katharine Whitlock MD CHEMISTRY ORDERABLES Final Resu lt [facility] [employer], [facility] [address] [facility], [place] [address] * THYROGLOBULIN ANTIBODY -REF LAB (12/14/2024 12:41 PM EDT) Pathologist [facility] Thyroglob Ab <1.5 0.0 - 4.0 IU/mL 12/16/2024 6:43 AM EDT [facility] Comment: INTERPRETIVE INFORMATION: Thyroglobulin Antibody A value of 4.0 IU/mL or less indicates a negative result for thyroglobulin antibodies. The Thyroglobulin Antibody assay is being performed using the [employer] DxI method. Performed By: [facility] [address] [place] [address] Loan Documentation Specialist: Uvaldo Youssef MD, PhD CLIA Number: [id number] Blood VENOUS BLOOD / Unknown Venipuncture / Unknown 12/14/2024 12:41 PM EDT 12/14/2024 2:31 PM EDT Katharine Whitlock MD IMMUNOLOGY ORDERABLES Final Res ult Performing Organization Address City/[facility] Co de Phone Number [facility] [address] [place] [address] * ADRENOCORTICOTROPIC HORMONE -REF LAB (12/14/2024 12:41 PM EDT) Only the most recent of2 resultswithin the time period is included. Pathologist [facility] ACTH 17.4 7.2 - 63.3 pg/mL 12/17/2024 7:33 PM EDT [employer] Comment: INTERPRETIVE INFORMATION: Adrenocorticotropic Hormone Reference interval based on samples collected between 7 a.m. and 10 a.m. No reference intervals established for p.m. collections. Pediatric reference values are the same as adults (Acta Paediatr Scand 1981;70:341-345). This assay measures intact ACTH 1-39; some types of synthetic ACTH and ACTH fragments are not detected by this assay. Performed By: [facility] [address] [place] [id number] [employer] Document[employer] Specialist: Uvaldo Youssef MD, PhD [place] Number: [id number] Blood VENOUS BLOOD / Unknown Venipuncture / Unknown 12/14/2024 12:41 PM EDT 12/14/2024 2:19 PM EDT Katharine Whitlock MD CHEMISTRY ORDERABLES Final Resu lt Performing Organization Address City/[facility]/ZIP Co de Phone Number [facility] [address] [place] [address] * C-REACTIVE PROTEIN (12/14/2024 12:41 PM EDT) Only the most recent of3 resultswithin the time period is included. CRP <3.00 <=5.00 mg/L 12/14/2024 7:13 PM EDT [facility] Blood VENOUS BLOOD / Unknown Venipuncture / Unknown 12/14/2024 12:41 PM EDT 12/14/2024 2:23 PM EDT Katharine Whitlock MD CHEMISTRY ORDERABLES Final Resu lt Performing Organization Address [facility] Co de Phone Number [facility] [address] [facility] , [place] [address] * URIC ACID (12/14/2024 12:41 PM EDT) Only the most recent of2 resultswithin the time period is included. Uric Acid 3.4 2.4 - 5.7 mg/dL 12/14/2024 6:49 PM EDT [facility] Blood VENOUS BLOOD / Unknown Venipuncture / Unknown 12/14/2024 12:41 PM EDT 12/14/2024 2:23 PM EDT Katharine Whitlock MD CHEMISTRY ORDERABLES Final Resu lt Performing Organization Address City/[facility]/ZIP Co de Phone Number [facility] [address] [facility] , [place] [address] * T3 FREE (12/14/2024 12:41 PM EDT) Only the most recent of2 resultswithin the time period is included. T3 Free 2.24 2.00 - 4.40 pg/mL 12/14/2024 6:49 PM EDT [facility] Blood VENOUS BLOOD / Unknown Venipuncture / Unknown 12/14/2024 12:41 PM EDT 12/14/2024 2:23 PM EDT Narrative [facility] - 12/14/2024 6:49 PM EDT Ingestion of aldair doses of biotin (>5 mg/day) taken within 8 hours of drawing blood sample can interfere with this immunoassay test. Katharine Whitlock MD CHEMISTRY ORDERABLES Final Resu Performing Organization Address [facility] Phone Number [facility] [address] , [place] [address] * THYROID STIMULATING HORMONE (12/14/2024 12:41 PM EDT) Only the most recent of2 resultswithin the time period is included. TSH 0.737 0.270 - 4.200 mcIU/mL 12/14/2024 6:49 PM EDT [facility] Blood VENOUS BLOOD / Unknown Venipuncture / Unknown 12/14/2024 12:41 PM EDT 12/14/2024 2:23 PM EDT Narrative [employer] - 12/14/2024 6:49 PM EDT Ingestion of aldair doses of biotin (>5 mg/day) taken within 8 hours of drawing blood sample can interfere with this immunoassay test. Katharine Whitlock MD CHEMISTRY ORDERABLES Final Resu lt Performing Organization Address [facility] de Phone Number [facility] [address] , [place] [address] * T4, FREE (THYROXINE) (12/14/2024 12:41 PM EDT) Only the most recent of2 resultswithin the time period is included. Free T4 1.41 0.80 - 1.80 ng/dL 12/14/2024 6:49 PM EDT [facility] Blood VENOUS BLOOD / Unknown Venipuncture / Unknown 12/14/2024 12:41 PM EDT 12/14/2024 2:23 PM EDT Narrative [facility] - 12/14/2024 6:49 PM EDT Ingestion of aldair doses of biotin (>5 mg/day) taken within 8 hours of drawing blood sample can interfere with this immunoassay test. Katharine Whitlock MD CHEMISTRY ORDERABLES Final Resu [facility] [address] [facility] , [place] [address] * VITAMIN B6 (PYRIDOXINE) -REF LAB (12/14/2024 12:41 PM EDT) Only the most recent of2 resultswithin the time period is included. Vit B6 37.9 20.0 - 125.0 nmol/L 12/19/2024 5:11 AM EDT [employer] [facility] [employer] Comment: INTERPRETIVE INFORMATION: Vitamin B6 (Pyridoxal 5-Phosphate) Pyridoxal 5'-phosphate measured in a specimen collected following an 8-hour or overnight fast accurately indicates vitamin B6 nutritional status. Non-fasting specimen concentration reflects recent vitamin intake. This test was developed and its performance characteristics determined by [facility]. It has not been cleared or approved by the US Food and Drug Administration. This test was performed in a CLIA certified laboratory and is intended for clinical purposes. Performed By: [facility] [address] [place] [address] Loan Documentation Specialist: Uvaldo Youssef MD, PhD CLIA Number: [id number] Blood VENOUS BLOOD / Unknown Venipuncture / Unknown 12/14/2024 12:41 PM EDT 12/14/2024 4:56 PM EDT Katharine Whitlock MD CHEMISTRY ORDERABLES Final Resu lt [facility] [address] [place] [address] * PARATHYROID HORMONE INTACT (12/14/2024 12:41 PM EDT) PTH Intact 27.90 15.00 - 65.00 pg/mL 12/14/2024 6:35 PM EDT [facility] Blood VENOUS BLOOD / Unknown Venipuncture / Unknown 12/14/2024 12:41 PM EDT 12/14/2024 2:31 PM EDT Narrative [facility] - 12/14/2024 6:35 PM EDT Intact PTH [...] Whitlock MD CHEMISTRY ORDERABLES Final Resu lt [facility] [address] [facility] , [place] [address] * LACTIC ACID (12/14/2024 12:41 PM EDT) Only the most recent of4 resultswithin the time period is included. Lactic Acid 0.9 0.5 - 1.9 mmol/L 12/14/2024 1:41 PM EDT [facility] Blood VENOUS BLOOD / Unknown Venipuncture / Unknown 12/14/2024 12:41 PM EDT 12/14/2024 1:14 PM EDT Katharine Whitlock MD CHEMISTRY ORDERABLES Final Resu lt [facility] [address] [place] [address] * LUTEINIZING HORMONE (12/14/2024 12:41 PM EDT) Only the most recent of2 resultswithin the time period is included. LH 44.10 mIU/mL 12/14/2024 6:58 PM EDT [facility] Comment: Suggested Reference Ranges (mIU/mL) Females Follicular Phase 2.4 - 12.6 Ovulation Phase 14.0 - 95.6 Luteal Phase 1.0 - 11.4 Postmenopause 7.7 - 58.5 Males 1.7 - 8.6 Blood VENOUS BLOOD / Unknown Venipuncture / Unknown 12/14/2024 12:41 PM EDT 12/14/2024 3:30 PM EDT Narrative [facility] - 12/14/2024 6:58 PM EDT Ingestion of aldair doses of biotin (>5 mg/day) taken within 8 hours of drawing blood sample can interfere with this immunoassay test. Katharine Whitlock MD CHEMISTRY ORDERABLES Final Resu Performing Organization Address City/[facility]/ZIP Co de Phone Number [facility] [address] [facility] , [address] [place], [place] [id number] * VITAMIN B12 LEVEL (12/14/2024 12:41 PM EDT) Only the most recent of2 resultswithin the time period is included. Vitamin B12 379 232 - 1,245 pg/mL 12/14/2024 6:58 PM EDT [facility] Blood VENOUS BLOOD / Unknown Venipuncture / Unknown 12/14/2024 12:41 PM EDT 12/14/2024 3:30 PM EDT Narrative [facility] - 12/14/2024 6:58 PM EDT Ingestion of aldair doses of biotin (>5 mg/day) taken within 8 hours of drawing blood sample can interfere with this immunoassay test. Katharine Whitlock MD CHEMISTRY ORDERABLES Final Resu lt Performing Organization Address [facility] de Phone Number [facility] [address] [place] [address] , [place] [address] * CORTISOL (12/14/2024 12:41 PM EDT) Only the most recent of2 resultswithin the time period is included. Cortisol 5.82 mcg/dL 12/14/2024 6:5 8 PM EDT [facility] Blood VENOUS BLOOD / Unknown Venipuncture / Unknown 12/14/2024 12:41 PM EDT 12/14/2024 3:30 PM EDT [facility] - 12/14/2024 6:58 PM EDT AM: 4.82 [...] ORDERABLES Final Resu lt Performing Organization Address [facility] Co de Phone Number [facility] [address] [place] [address] [place] [address] * (ABNORMAL) COMPREHENSIVE METABOLIC PANEL (12/14/2024 12:41 PM EDT) Only the most recent of8 resultswithin the time period is included. Sodium 141 136 - 145 mmol/L 12/14/2024 [...] recommended by the National Kidney Foundation - [place] [employer] Neph[employer] Task Force. Blood VENOUS BLOOD / Unknown Venipuncture / Unknown 12/14/2024 12:41 PM EDT 12/14/2024 2:23 PM EDT us Katharine Whitlock MD CHEMISTRY ORDERABLES Final Resu lt [facility] [address] [facility] , [place] [address] * US THYROID (12/12/2024 12:48 PM EDT) [...] 12:48 PM CLINICAL HISTORY: Thyroid nodule(s). E03.9-Hypothyroidism, [id number]-BUP-10-CM. COMPARISON: None. PROCEDURE COMMENTS: Sonographic evaluation of [...] 12:48 PM CLINICAL HISTORY: Thyroid nodule(s). E03.9-Hypothyroidism, kgxokfpijqo-NZP-42-CM. COMPARISON: None. PROCEDURE COMMENTS: Sonographic evaluation of [...] contactthe office of the ordering clinician. Katharine Whitlock MD IMG US ORDERABLES Final Result * CALCITRIOL- COMPUNET (11/27/2024) Calcitriol 44.4 PG/ML SEP OFFICE 11/27/2024 Katharine Whitlock MD CNET-CHEMISTRY ORDERABLES Edite d Result - Final Performing Organization Address City/[facility]/ZIP Co de Phone Number SEP OFFICE * CALCIUM, IONIZED (11/27/2024) Calcium Ionized 5.2 MMOL/L SEP OFFICE Blood VENOUS BLOOD / Unknown 11/27/2024 Katharine Whitlock MD CHEMISTRY ORDERABLES Edited Res ult - Final [facility] * IRON LEVEL AND TIBC (11/27/2024) TIBC 342 MCG/DL SEP OFFICE UIBC 287 112 - 347 mcg/dL SEP OFFICE Iron 55 MCG/DL SEP OFFICE Iron Saturation 16 % SEP OFFICE Blood VENOUS BLOOD / Unknown 11/27/2024 Katharine Whitlock MD CHEMISTRY ORDERABLES Edited Res ult - Final Performing Organization Address [facility] de Phone Number SEP OFFICE * THYROGLOBULIN -REF LAB (11/27/2024) Thyroglob Ab <1.0 IU/ML SEP OFFICE Blood VENOUS BLOOD / Unknown 11/27/2024 Katharine Whitlock MD CHEMISTRY ORDERABLES Edited Res ult - Final Performing Organization Address [facility] de Phone Number SEP OFF[facility] * DEHYDROEPIANDROSTERONE -REF LAB (11/27/2024) DHEA Sulfate 10.3 MCG/DL SEP OFFICE Blood VENOUS BLOOD / Unknown 11/27/2024 Katharine Whitlock MD CHEMISTRY ORDERABLES Edited Res ult - Final Performing Organization Address [facility] de Phone Number SEP OFFICE * LIPID SCREEN (11/27/2024) Only the most recent of2 resultswithin the time period is included. Cholesterol, Total 170 SEP OFFICE Triglyceride 113 40 - 160 MG/DL SEP OFFICE HDL 50 35 - 70 MG/DL SEP OFFICE VLDL Cholesterol Mekhi 20 SEP OFFICE LDL Calculated 100 0 - 160 MG/DL SEP OFFICE Blood VENOUS BLOOD / Unknown 11/27/2024 Katharine Whitlock MD CHEMISTRY ORDERABLES Edited Res ult - Final Performing Organization Address [facility] de Phone Number SEP OFFICE * OCT, OPTIC NERVE - OU - [...] ORDERAB LES Final Result SEP OFFICE * GRUBBS VISUAL FIELD - [...] ORDERAB LES Final Result Performing Organization Address [facility] Co de Phone Number SEP OFFICE * XR CERVICAL SPINE AP AND LATERAL (09/16/2022 1:45 PM EDT) Narrative [employer] - 09/16/2022 1:45 PM EDT Please see physician's note from office encounter for x-ray imaging result Oumar Alves MD IMG DIAGNOSTIC IMAGING O RDERABLES Final Result * NC ARTHROCENTESIS ASPIR&/INJ MAJOR JT/BURSA W/O US (09/16/2022 [...] Alves MD PROCEDURE/MINOR SURGICAL ORDERABLES Final Result ORTHOCINCY * NM GASTRIC EMPTYING (08/19/2022 12:17 PM [...] GASTRIC EMPTYING 08/19/2022 12:17 PM CLINICAL HISTORY: K21.66-Licsxn-ucnqnnjvuf reflux disease with esophagitis, without qdwfoxxf-DAI-94-CM. COMPARISON: CT abdomen and pelvis with IV [...] GASTRIC EMPTYING 08/19/2022 12:17 PM CLINICAL HISTORY: K21.34-Twqhac-wzeivgqhzw reflux disease withesophagitis, without hwwxnihk-EBB-13-CM. COMPARISON: CT abdomen and pelvis with IV [...] contactthe office of the ordering clinician. us Gerardo BILLINGS NM ORDERABLES Final Re sult * SCANNED [...] POC Yellow Color 07/26/2022 10:36 AM EDT [facility] UA Appear POC Clear Clear 07/26/2022 10:36 AM EDT [facility]A Gluc POC Negative Negative mg/dL 07/26/2022 10:36 AM EDT [facility] UA Bili POC Negative Negative 07/26/2022 10:36 AM EDT [facility] UA Ketones POC Negative Negative mg/dL 07/26/2022 10:36 AM EDT [facility] SG POC <=1.005 1.001 - 1.035 no units 07/26/2022 10:36 AM EDT [facility] UA Blood POC Small(A) Negative 07/26/2022 10:36 AM EDT [facility] UA pH POC 5.5 5.0 - 8.0 pH 07/26/2022 10:36 AM EDT [facility] UA Protein POC Negative Negative mg/dL 07/26/2022 10:36 AM EDT [facility] UA Urobilinogen POC 0.2 0.2, 1.0 07/26/2022 10:36 AM EDT [facility] UA Nitrite POC Negative Negative 07/26/2022 10:36 AM EDT [facility] UA Leuk Est POC Negative Negative 10:36 AM EDT [facility] Urine URINE SPECIMEN COLLECTION / Unknown 07/26/2022 10:33 AM EDT 07/26/2022 10:36 AM EDT Sandra Murrell PA-C POINT OF CARE TEST ORDERAB LES Final Result [facility] [address] [place], [place] [id number] * CBC WITH DIFF (07/18/2022 4:12 PM EDT) Only the most recent of9 resultswithin the time period is included. WBC 5.0 3.7 - 10.3 x10(3)/mcL 07/18/2022 4:18 PM EDT [facility] RBC 4.64 3.90 - 5.20 x10(6)/mcL 07/18/2022 4:18 PM EDT [facility] Hgb 13.3 11.2 - 15.7 g/dL 07/18/2022 4:18 PM EDT [facility] Hct 39.3 34.0 - 45.0 % 07/18/2022 4:18 PM EDT [facility] MCV 84.7 80.0 - 100.0 fL 07/18/2022 4:18 PM EDT [facility] MCH 28.7 26.0 - 34.0 pg 07/18/2022 4:18 PM EDT [facility] MCHC 33.8 30.7 - 35.5 g/dL 07/18/2022 4:18 PM EDT [facility] RDW 13.2 <=14.9 % 07/18/2022 4:18 PM EDT [facility] Platelet 254 155 - 369 x10(3)/mcL 07/18/2022 4:18 PM EDT [facility] MPV 9.6 8.8 - 12.5 fL 07/18/2022 4:18 PM EDT [facility] Neut Percent 49.6 % 07/18/2022 4:18 PM EDT [facility] Comment:Neutrophils equals s egs plus bands Imm Gran% 0.4 % 07/18/2022 4:18 PM EDT [facility] Comment:Automated count of m etamyelocytes, myelocytes and promyelocytes. Lymph Percent 36.1 % 07/18/2022 4:18 PM EDT [facility] Wolfe Percent 10.9 % 07/18/2022 4:18 PM EDT [facility] Eos Percent 2.0 % 07/18/2022 4:18 PM EDT [facility] Baso Percent 1.0 % 07/18/2022 4:18 PM EDT [facility] Neut # 2.5 1.6 - 6.1 x10(3)/[facility] 07/18/2022 4:18 PM EDT [facility] Comment:Neutrophils equals s egs plus bands IMMGRAN# 0.0 0.0 - 0.1 x10(3)/[facility] 07/18/2022 4:18 PM EDT [facility] Comment:Automated count of m etamyelocytes, myelocytes and promyelocytes. An absolute IG <0.1 is reported as 0.0. Lymph # 1.8 1.2 - 3.9 x10(3)/[facility] 07/18/2022 4:18 PM EDT [facility] Wolfe # 0.5 0.3 - 0.9 x10(3)/[facility] 07/18/2022 4:18 PM EDT [facility] Eos# 0.1 0.0 - 0.5 x10(3)/[facility] 07/18/2022 4:18 PM EDT [facility] Baso # 0.1 0.0 - 0.1 x10(3)/[facility] 07/18/2022 4:18 PM EDT [facility] Blood VENOUS BLOOD / Unknown Venipuncture / Unknown 07/18/2022 4:12 PM EDT 07/18/2022 4:16 PM EDT Sameer Gan MD HEMATOLOGY ORDERABLES Final Result [facility] [address] [place] [address] * BASIC METABOLIC PANEL (07/18/2022 4:12 PM EDT) Only the most recent of5 resultswithin the time period is included. Sodium 138 136 - 145 mmol/L 07/18/2022 4:33 PM EDT [facility] Potassium 3.8 3.5 - 5.0 mmol/L 07/18/2022 4:33 PM EDT [facility] Chloride 102 98 - 107 mmol/L 07/18/2022 4:33 PM EDT [facility] Total CO2 25 22 - 29 mmol/L 07/18/2022 4:33 PM EDT [facility] Anion Gap 11 7 - 16 mmol/L 07/18/2022 4:33 PM EDT [facility] Calcium 9.5 8.8 - 10.4 mg/dL 07/18/2022 4:33 PM EDT [facility] Glucose Lvl 99 82 - 100 mg/dL 07/18/2022 4:33 PM EDT [facility] BUN 14 8 - 23 mg/dL 07/18/2022 4:33 PM EDT [facility] Creatinine 0.93 0.51 - 1.30 mg/dL 07/18/2022 4:33 PM EDT [facility] eGFR (CKD-EPIcr 2020) 63 >=60 mL/min/1.7 3 m2 07/18/2022 4:33 PM EDT [facility] Comment:Estimated GFR was ca lculated using the CKD-EPIcr (2020) equation refit without race. The equation is recommended by the National Kidney Foundation - [place] [employer] of Nephrology Task Force. Blood VENOUS BLOOD / Unknown Venipuncture / Unknown 07/18/2022 4:12 PM EDT 07/18/2022 4:16 PM EDT Sameer Gan MD CHEMISTRY ORDERABLES Final Result [facility] [address] [place] [address] * (ABNORMAL) URINALYSIS REFLEX (07/18/2022 2:45 PM EDT) UA Color Straw 07/18/2022 3:03 PM EDT [facility] UA Appear Clear Clear 07/18/2022 3:03 PM EDT [facility] UA Glucose Negative Negative mg/dL 07/18/2022 3:03 PM EDT [facility] UA Ketones Negative Negative mg/dL 07/18/2022 3:03 PM EDT [facility] UA Blood Moderate(A) Negative 07/18/2022 3:03 PM EDT [facility] UA pH 6.0 5.0 - 8.0 pH 07/18/2022 3:03 PM EDT [facility] UA Protein Negative Negative mg/dL 07/18/2022 3:03 PM EDT [facility] UA Urobilinogen 0.2 <=1 mg/dL 3:03 PM EDT [facility] UA Bili Negative Negative 07/18/2022 3:03 PM EDT [facility] UA Nitrite Negative Negative 07/18/2022 3:03 PM EDT [facility] UA Leuk Est Trace(A) Negative 07/18/2022 3:03 PM EDT [facility] UA Spec Grav 1.010 1.001 - 1.035 no units 07/18/2022 3:03 PM EDT [facility] Comment:Reference range ruth d for random specimens only. UA WBC 1 0 - 4 /HPF 07/18/2022 3:03 PM EDT [facility] UA RBC 0 0 - 3 /HPF 07/18/2022 3:03 PM EDT [facility] UA Squam Epi Rare /LPF 07/18/2022 3:03 PM EDT [facility] Urine URINE SPECIMEN COLLECTION, CLEAN CATCH / Unknown 07/18/2022 2:45 PM EDT 07/18/2022 2:47 PM EDT us Sameer Gan MD URINE ORDERABLES Final Resu lt [facility] [address] [place] [address] * EXTRA [place] URINE CX (07/18/2022 2:45 PM EDT) Only the most recent of6 resultswithin the time period is included. Urine URINE SPECIMEN COLLECTION, CLEAN CATCH / Unknown 07/18/2022 2:45 PM EDT 07/18/2022 2:47 PM EDT Sameer Gan MD MICROBIOLOGY - GENERAL ORDMariama FREEDMAN Final Result Performing Organization Address [facility] de Phone Number [facility] [address] [place] [address] * URINE CULTURE (NO STAIN) (07/18/2022 2:45 PM EDT) Only the most recent of9 resultswithin the time period is included. Pathologist [facility] Culture Multiple bacterial species isolated from urine consistent with urogenital commensal organisms. 07/20/2022 10:02 AM EDT [facility] Urine URINE SPECIMEN COLLECTION, CLEAN CATCH / Unknown 07/18/2022 2:45 PM EDT 07/18/2022 3:03 PM EDT Sameer Gan MD MICROBIOLOGY - GENERAL DIANA FREEDMAN Final Result Performing Organization Address [facility] de Phone Number [facility] [address] [facility] , [address] [place] [id number] * XR LUMBAR SPINE AP AND LATERAL (07/07/2022 1:02 PM EST) Only the most recent of2 resultswithin the time period is included. Narrative Dayana Winkler - 07/07/2022 1:02 PM EST Please see physician's note from office encounter for x-ray imaging result Oumar Alves MD IMG DIAGNOSTIC IMAGING O RDERABLES Final Result * GAMMA GLUTAMYL TRANSFERASE (06/22/2022 1:15 PM EST) Pathologist [facility] GGT 15 5 - 36 U/L 06/22/2022 2:33 PM EST [facility] Blood VENOUS BLOOD / Unknown Venipuncture / Unknown 06/22/2022 1:15 PM EST 06/22/2022 1:15 PM EST Guanakito Malik V, LUNA CHEMISTRY ORDERABLES Final R esult Performing Organization Address City/[facility]/ZIP Co de Phone Number [facility] [address] [facility] , [place] [address] * (ABNORMAL) HEPATIC FUNCTION PANEL (06/22/2022 1:15 PM EST) Total Protein 7.3 6.4 - 8.3 gm/dL 06/22/2022 2:33 PM EST [facility] Albumin 4.5 3.2 - 4.6 gm/dL 06/22/2022 2:33 PM EST [facility] Bili Direct <0.2 0.0 - 0.3 mg/dL 06/22/2022 2:33 PM EST [facility] Bili Total 0.4 0.1 - 1.3 mg/dL 06/22/2022 2:33 PM EST [facility] AST 28 <=40 U/L 06/22/2022 2:33 PM EST [facility] ALT 23 <=41 U/L 06/22/2022 2:33 PM EST [facility] Alk Phos 32(L) 36 - 123 U/L 06/22/2022 2:33 PM EST [facility] Blood VENOUS BLOOD / Unknown Venipuncture / Unknown 06/22/2022 1:15 PM EST 06/22/2022 1:15 PM EST Guanakito Malik V, LUNA CHEMISTRY ORDERABLES Final R esult Performing Organization Address City/[facility]/ZIP Co de Phone Number [facility] [address] [facility] , [place] [address] * OCT, OPTIC NERVE - OU - [...] ORDERAB LES Final Result SEP OFFICE * CT ABDOMEN PELVIS WO [...] 05/12/2022 1:40 PM CLINICAL HISTORY: R10.9-Unspecified abdominal [id number]-[id number]-63-CM. COMPARISON: 12/11/2020 PROCEDURE COMMENTS: Multidetector CT examination [...] 05/12/2022 1:40 PM CLINICAL HISTORY: R10.9-Unspecified abdominal kiyr-UEF-22-CM. COMPARISON: 12/11/2020 PROCEDURE COMMENTS: Multidetector CT examination [...] please contactthe office of the ordering clinician. Janet Vogt MD IMG CT ORDERABLES Final Result * 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 (05/05/2022 4:39 PM EST) CASE REPORT Non-gynecologi c Cytology Case: [id number] Authorizing Provider: Sandra Murrell PA-C Collected: 05/05/2022 1639 Ordering [facility]: [facility] Received: 05/05/2022 1639 Pathologist: Danelle Dixon MD Specimen: Bladder, Urinary 05/06/2022 11:23 AM EST [facility] NON-BUSINESS EDUCATION INSTRUCTOR CYTOLOGY FINAL DIAGNOSIS Bladder washing: - Negative for high grade urothelial carcinoma. 05/06/2022 11:23 AM EST [facility] at 1122 EST EMBEDDED IMAGES 05/06/2022 11:23 AM EST [facility] MICROSCOPIC DESCRIPTION Microscopic examination is performed and the findings corroborate the diagnosis. 05/06/2022 11:23 AM EST [facility] Gross Description Urinary Bladder Washing, Rec'd 80ml of yellow fluid. (TP) 05/06/2022 11:23 AM EST [facility] Urine SPECIMEN FROM URINARY BLADDER / Unknown 05/05/2022 4:39 PM EST 05/05/2022 4:39 PM EST aSndra Murrell PA-C CYTOLOGY ORDERABLES Final Result [place] [id number] * (ABNORMAL) URINALYSIS (05/05/2022 4:39 PM EST) Only the most recent of11 resultswithin the time period is included. UA Color Colorless 05/05/2022 6:55 PM EST [facility] UA Appear Clear Clear 05/05/2022 6:55 PM EST [facility] UA Glucose Negative Negative mg/dL 05/05/2022 6:55 PM EST [facility] UA Ketones Negative Negative mg/dL 05/05/2022 6:55 PM EST [facility] UA Blood 1+ (0.06 - 0.1 mg/dL)(A) Negative 05/05/2022 6:55 PM EST [facility] UA pH 6.5 5.0 - 8.0 pH 05/05/2022 6:55 PM EST [facility] UA Protein Negative Negative mg/dL 05/05/2022 6:55 PM EST [facility] UA Urobilinogen Normal <=1 mg/dL 6:55 PM EST [facility] UA Bili Negative Negative 05/05/2022 6:55 PM EST [facility] UA Nitrite Negative Negative 05/05/2022 6:55 PM EST [facility] UA Leuk Est Negative Negative 05/05/2022 6:55 PM EST [facility] UA Spec Grav 1.010 1.001 - 1.035 no units 05/05/2022 6:55 PM EST [facility] Comment:Reference range ruth d for random specimens only. UA WBC 0 0 - 4 /HPF 05/05/2022 6:55 PM EST [facility] UA RBC <1 0 - 3 /HPF 05/05/2022 6:55 PM EST [facility] UA Hyal Cast 1 0 - 2 /LPF 05/05/2022 6:55 PM EST [facility] Urine URINE SPECIMEN OBTAINED VIA STRAIGHT CATHETER / Unknown 05/05/2022 4:39 PM EST 05/05/2022 4:39 PM EST us Sandra Murrell PA-C URINE ORDERABLES Final Res ult [facility] [address] [facility] , [address] [place], [place] [id number] * (ABNORMAL) [id number] A/B (04/28/2022 6:38 AM EST) CORONAVIRUS [id number] Not Detected Not Detected 04/28/2022 7:12 AM EST [facility] Influenza A DNA Detected(A) Not Detected 04/28/2022 7:12 AM EST [facility] Influenza B DNA Not Detected Not Detected 04/28/2022 7:12 AM EST [facility] Swab BOTH ANTERIOR NARES / Unknown 04/28/2022 6:38 AM EST 04/28/2022 6:47 AM EST Narrative [facility] - 04/28/2022 7:12 AM EST This [...] management decisions. Test is performed on the Tracey DIANDRA platform under the FDA's Emergency Use Authorization (EUA). DIANDRA Fact Sheet for Providers and Patients: DIANDRA Fact Sheet for Providers: https://www.fda.gov/media/333247/download DIANDRA Fact Sheet for Patients: https://www.fda.gov/media/892131/download us Jonas Mayorga MD MICROBIOLOGY - GENERAL ORDER LILO Final Result Performing Organization Address [facility]/ZIP Co de Phone Number [facility] [address] [place] [address] * (ABNORMAL) EMG (02/18/2022) Impressions [...] in degree electrically. Hollis Yoo M.D. Diplomate, [place] [employer] Narrative SEP OFFICE [...] X-RAY, 01/26/2022 2:27 PM CLINICAL HISTORY: R05.9-Cough, eiqndvjsqzp-OUG-55-CM COMPARISON: 10/29/2021 PROCEDURE COMMENTS: Frontal and lateral views of the chest. FINDINGS: Cardiovascular structures within normal limits. No pneumonia or effusion. No pneumothorax. Procedure Note Galdino Sosa MD - 01/26/2022 PA AND LATERAL CHEST X-RAY, 01/26/2022 2:27 PM CLINICAL HISTORY: R05.9-Cough, motjxeieuzk-XME-93-CM COMPARISON: 10/29/2021 PROCEDURE COMMENTS: Frontal and lateral views of the chest. FINDINGS: Cardiovascular structures within normal limits. No pneumoniaor effusion. No pneumothorax. IMPRESSION: No acute finding. - Note: Radiology results need to be interpreted within a comprehensiveclinical context. If you have questions about the radiology report, please contactthe office of the ordering clinician. Denae Reis MD IMG DIAGNOSTIC IMAGING ORDERA BLES Final Result * POCT BLADDER SCAN (12/15/2021 1:18 PM EDT) Only the most recent of11 resultswithin the time period is included. Urine Volume (Preservative) 11 SEP OFFICE 12/15/2021 1:18 PM EDT Sandra HUFF-C POINT OF CARE IMAGING Cindy l Result SEP OFFICE * XR ACUTE ABDOMEN SUPINE ERECT AND [...] left-sided facet disease is present resulting in cydc-jb-pkavdsyd central canal stenosis, with left lateral recess [...] 1:06 PM CLINICAL HISTORY: M54.50-Low back pain, ouagajahnet-JMJ-45-CM. COMPARISON: May 23, 2012. PROCEDURE COMMENTS: Multiplanar [...] 1:06 PM CLINICAL HISTORY: M54.50-Low back pain, rfqhbegyzdb-VTD-78-CM. COMPARISON: May 23, 2012. PROCEDURE COMMENTS: Multiplanar [...] and left-sided facet disease is present resulting exfyal-eg-thijvlxb central canal stenosis, with left lateral recess stenosis potentiallyimpinging the descending left L4 nerve root 3. At L2-3, disc bulge with right-sided facet arthritis/ligamentoushypertrophy results in right lateral recess stenosis and could result in right J0jzmijexpp symptoms. - Note: Radiology results need to be interpreted within a comprehensiveclinical context. If you have questions about the radiology report, please contactthe office of the ordering clinician. Mikey Christian MD [facility] MRI ORDERABLES Final Result * POCT EDIL [...] ORDE RABLES Final Result Performing Organization Address [facility] de Phone Number SEP OFFICE * CORONAVIRUS 2019 (04/16/2021 11:24 AM EST) Only the most recent of4 resultswithin the time period is included. Pathologist [facility] CORONAVIRUS [id number] Not Detected Not Detected 04/17/2021 2:30 PM EST [facility] Comment: Caution should be exercised when interpreting [...] of COVID-19. Test is performed on the [employer] platform under the FDA's Emergency Use Authorization (EUA). [employer] Provider Fact Sheet: https://www.fda.gov/media/647557/download [employer] Patient Fact Sheet: https://www.fda.gov/media/299169/download Performed at [facility] [address] [place] [address] CLIA [id number] Swab BOTH ANTERIOR NARES / Unknown 04/16/2021 11:24 AM EST 04/16/2021 11:24 AM EST Janet Vogt MD MICROBIOLOGY - GENERAL ORDERABLES Final Result Performing Organization Address City/[facility] Co de Phone Number [facility] [address] [place] [address], [address] [place] [phone] * POCT EKG (04/10/2021 11:36 AM EST) Only the most recent of2 resultswithin the time period is included. 04/10/2021 11:3 6 AM EST us Janet Votg MD POINT OF CARE CARDIOLOG Y Final [...] contactthe office of the ordering clinician. us Esther Gramajo CONCRETE PRODUCTS MACHINE OPERATOR IMG CT ORDERABLES Final Resu lt * TROPONIN-T HIGH SENSITIVITY 2HR (12/11/2020 2:09 PM EDT) rr-rRkuidhbx-U 2HR <6 <14 ng/L 12/11/2020 2:34 PM EDT [facility] Comment:See the website albino quinn for rule out [place] care pathway, conditions other than AMI that can cause elevated hs cTnT, and comparison of values from the 4th and 5th generation Dex tests. https://askmayoexpert.[facility].org/topic/clinical-answers/gnt-66830446/cpm-203 78772 hs-cTnT 2Hr Delta from Baseline 12/11/2020 2:34 PM EDT [facility] Comment:Unable to calculate, result is outside instrument's measuring range. Blood VENOUS BLOOD / Unknown Venipuncture / Unknown 12/11/2020 2:09 PM EDT 12/11/2020 2:15 PM EDT Narrative [facility] - 12/11/2020 2:34 PM EDT Ingestion of aldair doses of biotin (>5 mg/day) taken within 8 hours of drawing blood sample can interfere with this immunoassay test. 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 [employer] Provider Fact Sheet: https://www.fda.gov/media/868061/download [employer] Patient Fact Sheet: https://www.fda.gov/media/566634/download us Esther Gramajo APRN MICROBIOLOGY - GENERAL ORDER LILO Final Result [facility] [address] [place] [address] * EK EKG 12 LEAD (12/11/2020 12:37 PM EDT) Only the most recent of3 resultswithin the time period is included. Anatomical Region Laterality Modality Electrocardiogra phy 12/11/2020 12:5 0 PM EDT Impressions 12/11/2020 2:[address] [facility] Test Date: 2020-12-11 Pat Name: GILBERT SPENCERLIN Department: DEPID Room: 20 Gender: Female Grip Assembler: Naseren : 1945 Requested By: ESTHER Leslie Order Number: [id number] Reading MD: Dre Pardo MD Measurements Intervals [place] Rate: 61 P: -72 NC: 169 QRS: 37 QRSD: 106 T: 48 QT: 444 QTc: 448 Interpretive Statements SINUS RHYTHM NORMAL ECG NO PRIOR TRACING Electronically Signed On 12-11-2020 14:34:49 EDT by Dre Pardo MD Narrative Procedure Note Dre Pardo MD - 12/11/[address] [facility] Test Date: 2020-12-11 Pat Name: GILBERT LILLIE Department: DEPID Room: 20 Gender: Female Grip Assembler: Nasreen : 1945 Requested By: ESTHER Leslie Order Number: [id number] Reading : Dre Pardo MD Measurements Intervals [place]ron Rate: 61 P: -72 NC: 169 QRS: 37 QRSD: 106 T: 48 QT: 444 QTc: 448 Interpretive Statements SINUS RHYTHM NORMAL ECG NO PRIOR TRACING Electronically Signed On 12-11-2020 14:34:49 EDT by Dre Pardo MD us Esther E Nordman CONCRETE PRODUCTS MACHINE OPERATOR IMG ECG ORDERABLES Final Res ult * TROPONIN-T HIGH SENSITIVITY BASELINE W/ REFLEX (12/11/2020 12:02 PM EDT) Only the most recent of5 resultswithin the time period is included. Pathologist [facility] sh-hZibrfkpm-X <6 <14 ng/L 12/11/2020 2:06 PM EDT [facility] Comment:See the website albino quinn for rule out [place] care pathway, conditions other than AMI that can cause elevated hs cTnT, and comparison of values from the 4th and 5th generation Dex tests. https://askmayoexpert.[facility].org/topic/clinical-answers/gnt-54810664/cpm-203 88250 Blood VENOUS BLOOD / Unknown Venipuncture / Unknown 12/11/2020 12:02 PM EDT 12/11/2020 1:52 PM EDT Narrative [facility] - 12/11/2020 2:06 PM EDT Ingestion of aldair doses of biotin (>5 mg/day) taken within 8 hours of drawing blood sample can interfere with this immunoassay test. Esther Gramajo CONCRETE PRODUCTS MACHINE OPERATOR CHEMISTRY ORDERABLES Final R esult Performing Organization Address City/[facility]/[place] [address] * LIPASE LEVEL (12/11/2020 12:02 PM EDT) Only the most recent of2 resultswithin the time period is included. [facility] Lipase Lvl 48 13 - 60 U/L 12/11/2020 1:54 PM EDT [facility] Blood VENOUS BLOOD / Unknown Venipuncture / Unknown 12/11/2020 12:02 PM EDT 12/11/2020 12:18 PM EDT Esther Gramajo CONCRETE PRODUCTS MACHINE OPERATOR CHEMISTRY ORDERABLES Final R esult [facility] [address] [place] [address] * SCANNED RHYTHM STRIPS (12/09/2020 10:22 AM EDT) Anatomical Region Laterality Modality Other 12/09/2020 10:2 2 AM EDT us Unknown Provider IMG ECG ORDERABLES Final Result * Peripheral Block by Anesthesia (12/08/2020 2:08 PM EDT) Narrative [facility] - 12/08/2020 2:08 PM EDT Denae Galarza MD 12/08/2020 2:09 PM Peripheral Block by Anesthesia Procedure Date/Time: 12/08/2020 1:51 PM Patient location during procedure: OR Reason for block: at surgeon's request and post-op pain management Staff and Pre-procedure checks Anesthesiologist: Denae Galarza MD Resident/SMOKE AND FLAME SPECIALIST: Laura Holden CRNA Performed: anesthesiologist Preanesthetic Checklist: [...] of the block is attached/scanned to the [facility] chart. us Denae Galarza MD ANESTHESIA ORDERABLES Edited R esult - Final [facility] [address] [place] [id number] * Peripheral Block by Anesthesia (12/08/2020 2:06 PM EDT) Narrative [facility] - 12/08/2020 2:06 PM EDT Denae Galarza MD 12/08/2020 2:08 PM Peripheral Block by Anesthesia Procedure Date/Time: 12/08/2020 1:52 PM Patient location during procedure: OR Reason for block: at surgeon's request and post-op pain management Staff and Pre-procedure checks Anesthesiologist: Denae Galarza MD Resident/SMOKE AND FLAME SPECIALIST: Laura Holden CRNA Performed: anesthesiologist Preanesthetic Checklist: [...] visualized. Ultrasound image documentation is attached/scanned in [facility] chart.) Ultrasound probe: linear Ultrasound needle approach: [...] of the block is attached/scanned to the [facility] chart. us Denae Galarza MD ANESTHESIA ORDERABLES Final Re sult [facility] [address] [place] [id number] * PATHOLOGY TISSUE REQUEST (12/08/2020 1:55 PM EDT) Only the most recent of2 resultswithin the time period is included. CASE REPORT Surgical Pathology Case: [id number] Authorizing Provider: Geoff Gan MD Collected: 12/08/2020 1355 Ordering Location: [facility] SAME DAY SURGERY Received: 12/09/2020 1000 Pathologist: Claudia Issa MD Specimen: Gallbladder, GALLBLADDER 12/10/2020 10:14 AM EDT [facility] FINAL DIAGNOSIS Gallbladder, cholecystectomy: - Acute and chronic cholecystitis. - Cholelithiasis. 12/10/2020 10:14 AM EDT [facility] at 1014 EDT GROSS DESCRIPTION The [...] identified. The wall thickness averages 0.1 cm. Forensic Sergeant sections, to include the cystic duct margin, en face are submitted in cassette A1. BR 12/09/2020 11:29 AM 12/10/2020 10:14 AM EDT [facility] MICROSCOPIC DESCRIPTION Microscopic examination is performed and the findings corroborate the diagnosis. 12/10/2020 10:14 AM EDT [facility] EMBEDDED IMAGES 12/10/2020 10:14 AM EDT [facility] Tissue ENTIRE GALLBLADDER / Unknown 12/08/2020 1:55 PM EDT 12/09/2020 10:00 AM EDT us Geoff Gan MD PATHOLOGY ORDERABLES Final Re sult Performing Organization Address [facility] de Phone Number [facility] [address] [place] [address] [place] [address] * INTRAOP AIRWAY PLACEMENT (12/08/2020 1:46 PM EDT) Narrative [facility] - 12/08/2020 1:46 PM EDT Laura [...] attempts: 1 Attempt 1 by: FARIBA Title: SMOKE AND FLAME SPECIALIST us Denae Galarza MD [place] ANESTHESIA Final Result Performing Organization Address [facility] de Phone Number [facility] [address] [place] [address] * (ABNORMAL) COMPLIANCE PANEL, URINE (09/19/2020 10:54 AM EDT) [facility] Medications Expected Gabapentin 08/31 7:49 AM EDT [facility] Creatinine Ur >25.0 mg/dL 09/22/2020 7:49 AM EDT [facility] Comment: Greater than 20: Consistent with valid sample Greater than 2 but less than 20: Possible dilution Less than 2: Questionable valid sample THC <10 Cutoff 10 ng/mL ng/mL 09/22/2020 7:49 AM EDT [facility] Comment:5-yusaldu-uiyxyhsyuy cannabinol; does not distinguish between prescribed and [...] 09/22/2020 7:49 AM EDT [facility] Comment:e.g.,Rohypnol, Narco zep 7-Aminoflunitrazepam <50 Cutoff 50 ng/mL ng/mL 09/22/2020 7:49 AM EDT [facility] Comment:Metabolite of Flunit razepam Flurazepam <50 Cutoff 50 ng/mL ng/mL 09/22/2020 7:49 AM EDT [facility] Comment:e.g., Dalmane Hydroxyethylflurazepam <50 Cutoff 50 ng/mL ng/mL 09/22/2020 7:49 AM EDT [facility] Comment:Metabolite of Fluraz epam Lorazepam <50 Cutoff 50 ng/mL ng/mL 09/22/2020 7:49 AM EDT [facility] Comment:e.g., Ativan Lorazepam Glucuronide <50 Cutoff 50 ng/mL ng/mL 09/22/2020 7:49 AM EDT [facility] Comment:Metabolite of Loraze candie Midazolam <50 Cutoff 50 ng/mL ng/mL 09/22/2020 7:49 AM EDT [facility] Comment:e.g., Versed alpha-hydroxymidazolam <50 Cutoff 50 ng/mL ng/mL 09/22/2020 7:49 AM EDT [facility] Comment:Metabolite of Versed Oxazepam <50 Cutoff 50 ng/mL ng/mL 09/22/2020 7:49 AM EDT [facility] Comment:e.g., Serax; also Me tabolite of Temazepam, and Nordiazepam Oxazepam Glucuronide <50 Cutoff 50 ng/mL ng/mL 09/22/2020 7:49 AM EDT [facility] Comment:Metabolite of Oxazep am Temazepam <50 Cutoff 50 ng/mL ng/mL 09/22/2020 7:49 AM EDT [facility] Comment:e.g., Restoril; also Metabolite of Diazepam Temazepam Glucuronide <50 Cutoff 50 ng/mL ng/mL 09/22/2020 7:49 AM EDT [facility] Comment:Metabolite of Temaze acndie and Diazepam Triazolam <50 Cutoff 50 ng/mL ng/mL 09/22/2020 7:49 AM EDT [facility] Comment:e.g., Halcion alpha-hydroxytriazolam <50 Cutoff 50 ng/mL ng/mL 09/22/2020 7:49 AM EDT [facility] Comment:Metabolite of Triazo lopez Buprenorphine <5 Cutoff 5 ng/mL ng/mL 09/22/2020 7:49 AM EDT [facility] Comment:e.g., Suboxone, Subu ravindra,Sublocade, Buprenex Buprenorphine Glucuronide <10 Cutoff 10 ng/mL ng/mL 09/22/2020 7:49 AM EDT [facility] Comment:Buprenorphine Metabo lite Norbuprenorphine <5 Cutoff 5 ng/mL ng/mL 09/22/2020 7:49 AM EDT [facility] Comment:Buprenorphine Metabo lite Norbuprenorphine Glucuronide <10 Cutoff 10 ng/mL ng/mL 09/22/2020 7:49 AM EDT [facility] Comment:Buprenorphine Metabo lite Benzoylecgonine <50 Cutoff 50 ng/mL ng/mL 09/22/2020 7:49 AM EDT [facility] Comment:Cocaine Metabolite Fentanyl <1 Cutoff 1 ng/mL ng/mL 09/22/2020 7:49 AM EDT [facility] Comment:e.g.,Duragesic, Oral et, Actiq, Sublimaze, Innovar, Lazanda Norfentanyl <1 Cutoff 1 ng/mL ng/mL 09/22/2020 7:49 AM EDT [facility] Comment:Metabolite of Fentan yl 6-Monoacetylmorphine (6MAM) <10 Cutoff 10 ng/mL ng/mL 09/22/2020 7:49 AM EDT [facility] Comment:Metabolite of Heroin ; Morphine is expected Methadone <50 Cutoff 50 ng/mL ng/mL 09/22/2020 7:49 AM EDT [facility] Comment:e.g., Dolophine, Met hadose, Amidone EDDP <50 Cutoff 50 ng/mL ng/mL 09/22/2020 7:49 AM EDT [facility] Comment:Methadone Metabolite Carisoprodol <100 Cutoff 100 ng/mL ng/mL 09/22/2020 7:49 AM EDT [facility] Comment:e.g., Soma Meprobamate <100 Cutoff 100 ng/mL ng/mL 09/22/2020 7:49 AM EDT [facility] Comment:e.g., Andrews, Equa nil, Micrainin, Equagesic; Metabolite of Carisoprodol Codeine <50 Cutoff 50 ng/mL ng/mL 09/22/2020 7:49 AM EDT [facility] Comment:e.g., Acetaminophen w/Codeine, Tylenol3 w/ Codeine Codeine Glucuronide <50 Cutoff 50 ng/mL ng/mL 09/22/2020 7:49 AM EDT [facility] Comment:Metabolite of Codein e Meperidine <50 Cutoff 50 ng/mL ng/mL 09/22/2020 7:49 AM EDT [facility] Comment:e.g., Demerol, Pethi dine Normeperidine <50 Cutoff 50 ng/mL ng/mL 09/22/2020 7:49 AM EDT [facility] Comment:Metabolite of Meperi dine Morphine <50 Cutoff 50 ng/mL ng/mL 09/22/2020 7:49 AM EDT [facility] Comment:e.g., MS Contin, Tiffanie anol; Metabolite of Codeine and Heroin; may reflect poppy seed ingestion Bsynywdx-9-Packxvxoscp <25 Cutoff 25 ng/mL ng/mL 09/22/2020 7:49 AM EDT [facility] Comment:Metabolite of Morphi ne. Fjovxyqq-4-Roykpvyifki <25 Cutoff 25 ng/mL ng/mL 09/22/2020 7:49 AM EDT [facility] Comment:Metabolite of Morphi ne. Naloxone <25 Cutoff 25 ng/mL ng/mL 09/22/2020 7:49 AM EDT [facility] Comment:e.g., Narcan, Evzio Hydrocodone <50 Cutoff 50 ng/mL ng/mL 09/22/2020 7:49 AM EDT [facility] Comment:e.g., Lorcet, Lortab , Vicodin, [place]; Minor Metabolite of Codeine Dihydrocodeine <50 Cutoff 50 ng/mL ng/mL 09/22/2020 7:49 AM EDT [facility] Comment:e.g., Didrate, Parzo ne, Parlor, Synalgos; Metabolite of Hydrocodone Norhydrocodone <50 Cutoff 50 ng/mL ng/mL 09/22/2020 7:49 AM EDT [facility] Comment:Metabolite of Hydroc odone Hydromorphone <50 Cutoff 50 ng/mL ng/mL 09/22/2020 7:49 AM EDT [facility] Comment:e.g., Dilaudid; also Metabolite of Hydrocodone and Minor Metabolite of Morphine Hydromorphone Glucuronide <50 Cutoff 50 ng/mL ng/mL 09/22/2020 7:49 AM EDT [facility] Comment:Metabolite of Hydrom orphone Oxycodone <50 Cutoff 50 ng/mL ng/mL 09/22/2020 7:49 AM EDT [facility] Comment:e.g., Oxycontin, Per cocet, Endocet, Percodan, Roxicet Noroxycodone <50 Cutoff 50 ng/mL ng/mL 09/22/2020 7:49 AM EDT [facility] Comment:Metabolite of Oxycod one Oxymorphone <50 Cutoff 50 ng/mL ng/mL 09/22/2020 7:49 AM EDT [facility] Comment:e.g., Opana; Metabol ite of Oxycodone Oxymorphone Glucuronide <50 Cutoff 50 ng/mL ng/mL 09/22/2020 7:49 AM EDT [facility] Comment:Metabolite of Oxycod one Noroxymorphone <50 Cutoff 50 ng/mL ng/mL 09/22/2020 7:49 AM EDT [facility] Comment:Metabolite of Oxycod one, and Oxymorphone, Noroxycodone Metabolite Tramadol <50 Cutoff 50 ng/mL ng/mL 09/22/2020 7:49 AM EDT [facility] Comment:e.g., Ultram, ConZip O-Pkwktdvoz-lhm-Tramadol <50 Cutoff 50 ng/mL ng/mL 09/22/2020 7:49 AM EDT [facility] Comment:Metabolite of Tramad ol Tapentadol <50 Cutoff 50 ng/mL ng/mL 09/22/2020 7:49 AM EDT [facility] Comment:Nucynta Tapentadol-Glucuronide <50 Cutoff 50 ng/mL ng/mL 09/22/2020 7:49 AM EDT [facility] Comment:Metabolite of Tapent adol Urine STRUCTURE OF URINARY TRACT PROPER / Unknown 09/19/2020 10:54 AM EDT 09/19/2020 10:54 AM EDT Narrative [facility] - 09/22/2020 7:49 AM EDT The absence of expected drug(s), and/or drug metabolite(s), may indicate non-compliance, diluted or adulterated urine, poor drug absorption, concentration of drug below the cut-off, timing of specimen collection relative to administration of drug, or limitations of testing. If results do not fit clinical expectations, please reach out to the Toxicology department at [phone]. Specimens are held for 7 days. This test was developed, and its performance characteristics determined by [facility] ([facility]). It has not been cleared or approved by the FDA. This test is used for clinical purposes. It should not be regarded as investigational or for research. [facility] is certified under the Clinical Laboratory Improvement Amendments (CLIA) as qualified to perform high complexity clinical laboratory testing. Severo Harrell DO URINE ORDERABLES Final Result [facility] [address] , [place] [address] * MRI ANKLE LEFT WO CONTRAST (09/03/2020 [...] AIRWAY PLACEMENT (08/27/2020 12:39 PM EDT) Narrative [facility] - 08/27/2020 12:39 PM EDT Yara Torres 08/27/2020 12:39 PM Intraop Airway Placement: Airway type: Nasal cannula salter us Oumar Weiss MD [place] ANESTHESIA Final Res ult Performing Organization Address [facility] Co de Phone Number [facility] [address] [place] [address] * (ABNORMAL) VITAMIN B12/ FOLIC ACID (08/22/2020 2:29 PM EDT) Vitamin B12 >1,600(H) 232-1,245 pg/mL 08/22/2020 6:33 PM EDT [facility] [employer] [employer] Folate >16.00 >=4.80 ng/mL 08/22/2020 6:33 PM EDT [facility] [employer] [facility] Blood Venipuncture / Unknown 08/22/2020 2:29 PM EDT 08/22/2020 2:29 PM EDT Narrative [facility] [employer] [facility] - 08/22/2020 6:33 PM EDT Ingestion of aldair doses of biotin (>5 mg/day) taken within 8 hours of drawing blood sample can interfere with this immunoassay test. Janet Vogt MD CHEMISTRY ORDERABLES Fi nal Result Performing Organization Address [facility] de Phone Number [facility] [address] , [place] [address] * TSH REFLEX (08/22/2020 2:29 PM EDT) Only the most recent of2 resultswithin the time period is included. TSH Reflex 1.630 0.270 - 4.200 mcIU/mL 08/22/2020 6:19 PM EDT [facility] [employer] Blood Venipuncture / Unknown 08/22/2020 2:29 PM EDT 08/22/2020 2:29 PM EDT Narrative [facility] - 08/22/2020 6:19 PM EDT Ingestion of aldair doses of biotin (>5 mg/day) taken within 8 hours of drawing blood sample can interfere with this immunoassay test. Janet Vogt MD CHEMISTRY ORDERABLES Fi nal Result Performing Organization Address [facility] de Phone Number [facility] [address] , [place] [address] * MAGNESIUM LEVEL (08/22/2020 2:29 PM EDT) Pathologist [facility] Magnesium 2.0 1.6 - 2.4 mg/dL 08/22/2020 6:07 PM EDT [facility] [employer] Blood VENOUS BLOOD / Unknown Venipuncture / Unknown 08/22/2020 2:29 PM EDT 08/22/2020 2:29 PM EDT Janet Vogt MD CHEMISTRY ORDERABLES Fi nal Result Performing Organization Address [facility] Co de Phone Number [facility] [address] , [place] [address] * IOL BIOMETRY - OU - BOTH EYES (07/31/2020 2:50 PM EDT) Narrative [facility] - 07/31/2020 2:50 PM EDT Right Eye Patient is here for baseline imaging. Lens style: monofocal. Formula used: (Claire Craigon). Target refraction: per patient preference. Left Eye Patient is here for baseline imaging. Lens style: monofocal. Formula used: (Jah Craig). Target refraction: per patient preference. Na Ang MD OPHTHALMOLOGY SERVICES ORDERAB LES Final Result Performing Organization Address [facility] de Phone Number SEP OFFICE * INTRAOP AIRWAY PLACEMENT (07/30/2020 2:24 PM EDT) Narrative [facility] - 07/30/2020 2:24 PM EDT Laura Holden, SMOKE AND FLAME SPECIALIST 07/30/2020 2:24 PM Intraop Airway Placement: Induction type: IV Airway type: Nasal cannula salter Juan Lynn MD NC ANESTHESIA Final R esult Performing Organization Address [facility] de Phone Number [facility] [address] [place] [address] * OCT, OPTIC NERVE - OU - BOTH EYES (07/10/2020 4:51 PM EST) Narrative [facility] - 07/10/2020 4:51 PM EST Right Eye Reliability was good. Temporal thickness was normal. Superior thickness was normal. Nasal thickness was normal. Inferior thickness was normal. Left Eye Temporal thickness was showing abnormal thinning. Superior thickness was showing abnormal thinning. Na Ang MD OPHTHALMOLOGY SERVICES ORDERAB LES Final Result Performing Organization Address [facility] de Phone Number SEP OFFICE * US RENAL AND BLADDER (04/22/2020 1:25 PM EST) Anatomical Region Laterality Modality Abdomen, Pelvis Ultrasound 04/22/2020 1:25 PM EST Impressions 04/22/2020 1:38 PM EST Bladder post void volume 11 mL. - Narrative 04/22/2020 1:38 PM EST US KIDNEYS AND BLADDER, 04/22/2020 1:25 PM CLINICAL HISTORY: R33.9-Retention of urine, oqeruvkahem-EAI-75-CM. COMPARISON: None. PROCEDURE COMMENTS: Routine sonographic evaluation of the kidneys and bladder with delivery representative images and insulation board back tender notes sent to PACS for radiologist review. [...] 1:25 PM CLINICAL HISTORY: R33.9-Retention of urine, orizecabnkf-CJH-78-CM. COMPARISON: None. PROCEDURE COMMENTS: Routine sonographic evaluation of the kidneys andbladder with delivery representative images and insulation board back tender notes sent to PACS forradiologist review. FINDINGS: [...] volume 11 mL. - Heydi Merrill MD IM US ORDERABLES Final Resu lt * (ABNORMAL) [...] bone density assessment. Study was performed on Renew[employer] 5. Bone Density: Region BMD T-score Z-score [...] on 01/18/2020 1:11:00 PM. Janet Vogt MD IMJerry DEXA ORDERABLES Fin al Result * SEDIMENTATION RATE AUTOMATED (01/08/2020 1:53 PM EDT) Sed Rate 6 0 - 30 mm/hr 01/08/2020 6:21 PM EDT [facility] Blood VENOUS BLOOD / Unknown Venipuncture / Unknown 01/08/2020 1:53 PM EDT 01/08/2020 1:53 PM EDT us Severo Harrell DO HEMATOLOGY ORDERABLES Final Res ult [facility] [address] [place] [address] * EK EKG CVMHU SCREENING (12/19/2019 12:15 PM EDT) Anatomical Region Laterality Modality Electrocardiogra phy 12/19/2019 7:34 AM EDT Impressions 12/20/2019 1:[address] [facility] [place] Test Date: 2019-12-19 Pat Name: GILBERT LILLIE Department: DEPID Room: Gender: Female Grip Assembler: : 1945 Requested By: LEONCIO SANDOVAL Order Number: [id number] Reading MD: Jorge Parker MD Interpretive Statements No Atrial Fibrillation detected at the time of screening. Electronically Signed On 12-20-2019 13:18:04 EDT by Jorge Parker MD Narrative Procedure Note Anderson Parker MD - 12/20/2019 IMPRESSION [facility] [place] Test Date: 2019-12-19 Pat Name: GILBERT LILLIE Department: DEPID Room: Gender: Female Grip Assembler: : 1945 Requested By: LEONCIO CAPUTO Order Number: [id number] Reading MD: Jorge Parker MD Interpretive Statements No Atrial Fibrillation detected at the time of screening. Electronically Signed On 12-20-2019 13:18:04 EDT by Jorge Parker MD us Leoncio Haywood CONCRETE PRODUCTS MACHINE OPERATOR IMG CVMHU EKG ORDE RABLES Final Result * [facility] US VASCULAR CVMHU SCREENING SINGLE EXAM (12/19/2019 12:14 [...] is within normal ranges described by the [place] [employer] guidelines. Narrative Procedure Note Arthur Luna MD - 12/19/2019 IMPRESSION Findings & Recommendations Mild plaque seen during carotid artery screening. Recommend to follow upwith primary care physician to discuss risk modification and maybe rescreened in one year. The blood pressure taken at this screening is within normal rangesdescribed by the [place] [employer] guidelines. Leoncio Haywood APRN IMG VASCULAR ORDER LIOL Final Result * GMED COLONOSCOPY (07/11/2019 12:30 PM EDT) 07/11/2019 12:3 0 PM EDT Impressions [facility] - 07/11/2019 1:00 PM EDT Erythema in the distal rectum. (Biopsy). Otherwise normal colonoscopy. Abnormal digital rectal exam (large external hemorrhoids). Plan: No need for further screening colonoscopies due to age. This section is an excerpt of the full report. Gerardo Rahman MD GI PROCEDURE ORDERABLES Fi nal Result [facility] [address] [place] [address] * (ABNORMAL) POCT URINALYSIS DIPSTICK (05/24/2019 1:49 PM EST) Only the most recent of6 resultswithin the time period is included. Color, UA yellow CLEAR,YELL OW,ORANGE, RUST [facility] Clarity, UA clear CLEAR,CLOU DY [facility] Glucose, UA neg G/DL% SEP OFFICE Bilirubin, UA neg POS/NEG SEP OFFICE Ketones, UA neg POS/NEG SEP document control coordinator Grav, UA 1.010 1.001 - 1.035 G/DL [...] EST Impressions 03/12/2019 11:08 AM EST Negative (ADH-Swuveqlh-1) ~ RECOMMENDATION: Routine screening mammogram in 1 [...] for screening mammogram for malignant neoplasm of qchkmr-JYI-28-CM ~ MM MAMMO DIG SCREEN CAD BILAT [...] for screening mammogram for malignant neoplasm of gheogr-XEB-87-CM ~ MM MAMMO DIG SCREEN CAD BILAT Bilateral CC and MLO view(s) were taken. The breast tissue is almost entirely fat. Prior study comparison: Compared with prior studies the most recentbeing 01/31/18, 10/15/16 No mammographic evidence of malignancy. ~ IMPRESSION: Negative (ZVK-Ikdswwos-4) ~ RECOMMENDATION: Routine screening mammogram in 1 [...] a Radiologist and CAD. Janet Vogt MD IMG MAMMOGRAPHY ORDERAB LES Final Result * (ABNORMAL) POCT URINALYSIS AUTOMATED (02/24/2019 1:41 PM EDT) Color, UA Yellow CLEAR,YEL LOW,ORANG E,RUST SEP OFFICE Clarity, UA Clear CLEAR,KARIE UDY SEP OFFICE Glucose, UA neg G/DL% SEP OFFICE Bilirubin, UA neg POS/NEG SEP OFFICE Ketones, UA neg POS/NEG SEP document control coordinator Grav, UA 1.015 1.001 - 1.035 G/DL SEP OFFICE Blood, UA 1+ POS/NEG SEP OFFICE pH, UA 6.0 5.0 - 8 SEP OFFICE Protein, UA trace POS/NEG SEP OFFICE Urobilinogen, UA neg 0.2 - 1.0 MG/DL SEP OFFICE Leukocytes, UA trace POS/NEG SEP OFFICE Nitrite, UA neg POS/NEG SEP OFFICE Appear BF Clear SEP OFFICE Lot Number [id number] SEP OFFICE Expiration Date 11/08/2020 SEP OFFICE [...] 11/23/2018 10:17 AM CLINICAL HISTORY: K59.01-Slow transit yvegwondedsr-WMS-43-CM COMPARISON: None. PROCEDURE COMMENTS: AP view(s) of the abdomen per protocol. FINDINGS: Bowel gas pattern nonspecific. Stool burden not atypical. No small bowel distention. No organomegaly or mass. No abnormal calcifications. Procedure Note Galdino Sosa MD - 11/23/2018 CR, ABDOMEN AP, 11/23/2018 10:17 AM CLINICAL HISTORY: K59.01-Slow transit xyqohfvhsczb-DQJ-56-CM COMPARISON: None. PROCEDURE COMMENTS: AP view(s) of [...] and Data System) is endorsed by the [place] [employer]. CAD-RADS grading is applied to vessels 1.5mm diameter and greater only. Link to source document. https://cdn.FreeBrie.com/scct.org/resource/resmgr/cad-rads/scct_jcct_cad-rads.pdf - - Narrative 09/20/2018 12:[address] CORONARY ANGIOGRAM, 09/20/2018 11:17 AM CLINICAL HISTORY: Z13.9-Encounter for screening, rxlxlvbnbag-LYA-74-CM COMPARISON: None. PROCEDURE COMMENTS: Heart rate control using Metoprolol as documented in EPIC. 0.4mg of SL NTG given. 75 mL Isovue 370 intravenous contrast material. CCTA prospective ECG-gated technique for coronary artery visualization. Interactive 3-D postprocessing done by the reviewing physician on a [employer] workstation, with one or more of the [...] 11:17 AM CLINICAL HISTORY: Z13.9-Encounter for screening, xckngbxpogo-QRU-25-CM COMPARISON: None. PROCEDURE COMMENTS: Heart rate control using Metoprolol as documented inEPIC. 0.4mg of SL NTG given. 75 mL Isovue 370 intravenous contrast material.CCTA prospective ECG-gated technique for coronary artery visualization.Interactive 3-D postprocessing done by the reviewing physician on a [employer] workstation,with one or more of the following: [...] Disease-Reporting and Data System) is endorsedby the [place] [employer]. CAD-RADS grading is applied to vessels1.5mm diameter and greater only. Link to source document. https://cdn.FreeBrie.com/scct.org/resource/resmgr/cad-rads/scct_jcct_cad-rads.pdf - - us Manav Batista MD IMG CT ORDERABLES Final Res ult * CREATININE ISTAT (09/20/2018 10:36 AM EDT) Creatinine-iST AT 1.0 0.6 - 1.3 mg/dL 09/20/2018 10:38 AM EDT [facility] Blood BLOOD SPECIMEN / Unknown 09/20/2018 10:36 AM EDT 09/20/2018 10:38 AM EDT Manav Batista MD POINT OF CARE TEST ORDERABL ES Final Result Performing Organization Address City/[facility]/ZIP Co de Phone Number [facility] [address] [place] [address] * [facility] VISCERAL VASCULAR COMPLETE (07/03/2018 11:27 AM EST) [...] velocities are identified in the celiac artery. William Presley PA-C IMG VASCULAR ORDERABLES Final Result * EXTRA GRETA MANISHA MENENDEZ (06/14/2018 11:56 PM EST) Only the most recent of2 resultswithin the time period is included. Blood VENOUS BLOOD / Unknown Venipuncture / Unknown 06/14/2018 11:56 PM EST 06/14/2018 11:58 PM EST us Sameer Coffey MD CHEMISTRY ORDERABLES Final Resu lt [facility] [address] [place] [address] * EXTRA LAVENDER (06/14/2018 11:56 PM EST) Only the most recent of2 resultswithin the time period is included. Blood VENOUS BLOOD / Unknown Venipuncture / Unknown 06/14/2018 11:56 PM EST 06/14/2018 11:58 PM EST Sameer Coffey MD HEMATOLOGY ORDERABLES Final Res ult Performing Organization Address [facility] Phone Number [address] [address] * EXTRA LIGHT BLUE (06/14/2018 11:56 PM EST) Only the most recent of2 resultswithin the time period is included. Blood VENOUS BLOOD / Unknown Venipuncture / Unknown 06/14/2018 11:56 PM EST 06/14/2018 11:58 PM EST Sameer Coffey MD HEMATOLOGY ORDERABLES Final Res ult Performing Organization Address [facility] Phone Number [address] [address] * GRUBBS VISUAL FIELD - OU - [...] ORDERAB LES Final Result Performing Organization Address [facility] de Phone Number SEP OFFICE * EC [...] ORDERAB LES Final Result Performing Organization Address City/[facility] Co de Phone Number SEP OFFICE * ECG AND WAVEFORMS - TELEMETRY (04/25/2018 7:24 AM EST) Only the most recent of3 resultswithin the time period is included. ECG INTERPRET NSR [facility] COUNTER INTELLIGENCE TECHNICIAN APPROVED Yes [facility] 04/25/2018 7:24 AM EST Narrative [facility] - 04/25/2018 10:01 AM EST NC 0.23 QRS 0.09 RR 1.02 QT 0.42 QTc 0.41 See Clinical Report link for waveform capture Unknown Provider POINT OF CARE CARDIOLOGY Final Result [facility] [address] [place] [address] * CT ANGIOGRAM HEAD AND NECK W [...] using NASCET criteria us Binh Morales MD IMG CT ORDERABLES Final Resu lt * CT [...] perez exam findings were urgently telephoned to [facility] nurse Claire by Dr. Sanchez at 04/24/2018 10:30 PM. Binh Morales MD IMG CT ORDERABLES Final Resu lt * (ABNORMAL) GLUCOSE METER POC (04/24/2018 10:01 PM EST) Only the most recent of2 resultswithin the time period is included. [facility] Glucose Meter POC 155(H) 70 - 100 mg/dL 04/24/2018 10:02 PM EST [facility] Sample Type Capillary 04/24/2018 10:02 PM EST [facility] Patient Status Non-Critical Patient 04/24/2018 10:02 PM EST [facility] Blood BLOOD SPECIMEN / Unknown 04/24/2018 10:01 PM EST 04/24/2018 10:02 PM EST Sameer Elizondo MD POINT OF CARE TEST ORDERABLES Fi nal Result [facility] [address] [place] [address] * DEXA SCAN (10/07/2017) Impressions SEP OFFICE [...] risk of a hip fracture is 3% us Historical Provider HEALTH MAINTENANCE Final Res ult [...] medial joint compartment, patella. Minimal joint effusion. us Geoff Dozier MD IMG MRI ORDERABLES Final Result * MRI LUMBAR [...] T1 and T2-weighted sequences obtained with and ecgxzvf54 mL MultiHance on 3.0 Brunilda magnet. FINDINGS: [...] is most narrowed; mild to moderate Geoff aGnt [facility] MRI ORDERABLES Final Result * SURGICAL PATHOLOGY REPORT (06/17/2011 6:44 PM EST) Surgical Pathology Report PATIENT NAME:GILBERT MOREIRA Surgical Pathology Report Accession Number Collected Date/Time Received Date/Time [id number] 06/17/11 18:44 EST 06/17/11 18:44 EST Diagnosis 1) Ascending colon: - Non-Dysplastic Mucosal Polyps, consistent with Hyperplastic polyps. 2) Rectum: - Non-Dysplastic Mucosal Polyps, consistent with Hyperplastic polyps. CESAR MASON MD (Electronically signed by) Verified: 06/22/2011 TSG Sign Out Location Comment CPT CODE 82318 x 2 Clinical Information Screening colonoscopy; personal [...] and the findings corroborate the diagnosis. _ [facility] 06/17/2011 6:44 PM EST us Soha Sid PATHOLOGY ORDERABLES Final Resul t [facility] [address] [place] [address] * DX VERTEBRAL FRACTURE ASSESSMENT (05/26/2010 12:54 [...] via vertebral fracture assessment. Kat Timmons P.A.-C., [place], CCD/Colton Wisdom M.D., SUZI, CCD Procedure Note Teddy Lawrence Maldonado - 05/28/2010 Kat Timmons P.A.-C, dictating for Colton Wisdom M.D. Date: 05-26-10 Vertebral Fracture Assessment: Clinical Indications: This is a 64-year-old postmenopausal female withhistory of adult fracture. The patient has low bone density. Findings: 1. Vertebral fracture assessment was performed on [employer] equipment in thesupine position with a lateral [...] deformity via vertebral fractureassessment. Kat Timmons P.A.-C., MMS, CCD/Colton Wisdom M.D., SUZI, CCD us Maxime [...] studies. IMPRESSION- No radiographic evidence of malignancy (DUC-Vyudjnip-7) RECOMMENDATION- Routine screening mammogram in 1 year. * The patient with a palpable abnormality, unexplained by breast imaging, should be managed on clinical basis by the attending physician. * Breast imaging has a false negative rate of 15%. * The patient was notified by mail of the results of this examination. The mammogram was reviewed by a Radiologist and CAD. Senior Trial Attorney- GIBSON Cantu Physician- CAROLINA OATES MD Released [...] studies. IMPRESSION- No radiographic evidence of malignancy (QCG-Fsbrqutc-5) RECOMMENDATION- Routine screening mammogram in 1 year. * The patient with a palpable abnormality, unexplained by breast imaging, should be managed on clinical basis by the attending physician. * Breast imaging has a false negative rate of 15%. * The patient was notified by mail of the results of this examination. The mammogram was reviewed by a Radiologist and CAD. Senior Trial Attorney- GIBSON HERRING Reading Physician- CAROLINA OATES MD Released Date Time- 07/15/08 1726 Maxime Araiza MD [facility] RAD [facility]IST[facility] L Final Result * EK [...] in blood pressure. Clinical correlation is recommended. Senior Trial Attorney- DMITRIY Cantu Physician- JARED HOLLIDAY M.D. Released Date Time- 07/17/08908 Procedure Note Jared Holliday J - 07/10/2009 [...] in blood pressure. Clinical correlation is recommended. Senior Trial Attorney- DMITRIY Cantu Physician- JARED HOLLIDAY M.D. Released Date Time- 07/17/08908 Result [facility] Maxime Araiza MD [facility] CARD [facility]ISTORIC AL Final Result [...] each standard deviation decline in bone density. Senior Trial Attorney- GIBSON Cantu Physician- CAROLINA OATES MD Released [...] each standard deviation decline in bone density. Senior Trial Attorney- GIBSON Cantu Physician- CAROLINA OATES MD Released Date Time- 07/11/082006 Maxime Araiza MD [facility] RAD HISTORICA L Final Result * MM [...] studies. IMPRESSION- No radiographic evidence of malignancy ([id number]) RECOMMENDATION- Routine screening mammogram in 1 year. * The patient with a palpable abnormality, unexplained by breast imaging, should be managed on clinical basis by the attending physician. * Breast imaging has a false negative rate of 15%. * The patient was notified by mail of the results of this examination. The mammogram was reviewed by a Radiologist and CAD. Senior Trial Attorney- GIBSON Cantu Radiologist- PRASHANT FAUSTIN MD Released [...] studies. IMPRESSION- No radiographic evidence of malignancy ([id number]) RECOMMENDATION- Routine screening mammogram in 1 year. * The patient with a palpable abnormality, unexplained by breast imaging, should be managed on clinical basis by the attending physician. * Breast imaging has a false negative rate of 15%. * The patient was notified by mail of the results of this examination. The mammogram was reviewed by a Radiologist and CAD. Senior Trial Attorney- GIBSON Cantu Radiologist- PRASHANT FAUSTIN MD Released Date Time- 10/06/05 1111 Roderick Huynh MD [facility] Final Result Visit Diagnoses Diagnosis Start [...] initial encounter 01/18/2019 Coronary artery disease involving paiute-shoshone coronary artery of paiute-shoshone heart without angina pectoris 01/25/2019 Mixed hyperlipidemia [...] Other constipation 04/05/2019 Coronary artery disease involving paiute-shoshone coronary artery of paiute-shoshone heart without angina pectoris 04/12/2019 Heart murmur [...] unspecified hyperlipidemia 08/19/2020 Coronary artery disease involving paiute-shoshone coronary artery of paiute-shoshone heart without angina pectoris 08/19/2020 Heart murmur [...] unspecified hyperlipidemia 01/19/2021 Coronary artery disease involving paiute-shoshone coronary artery of paiute-shoshone heart without angina pectoris 01/19/2021 Nonobstructive atherosclerosis of coronary artery 01/19/2021 Irritable bowel syndrome with constipation Irritable bowel syndrome 02/02/2021 Gastroesophageal reflux disease, unspecified whether esophagitis present 02/02/2021 Chronic cholecystitis 02/02/2021 Coronary artery disease involving paiute-shoshone coronary artery of paiute-shoshone heart without angina pectoris 03/05/2021 Heart murmur [...] intervertebral disc 07/27/2021 Coronary artery disease involving paiute-shoshone coronary artery of paiute-shoshone heart without angina pectoris 07/30/2021 Essential hypertension [...] Optic neuropathy, left Other optic neuritis 08/16/2024 Acquired hypothyroidism Unspecified hypothyroidism 11/27/2024 Secondary adrenal insufficiency Glucocorticoid deficiency 11/27/2024 Chronic fatigue Other malaise and fatigue 11/27/2024 Other hyperlipidemia 11/27/2024 Vitamin D deficiency Unspecified vitamin D deficiency 11/27/2024 Secondary adrenal insufficiency Glucocorticoid deficiency 12/07/2024 Acquired hypothyroidism Unspecified hypothyroidism 12/07/2024 Chronic fatigue Other malaise and fatigue 12/07/2024 Acquired hypothyroidism Unspecified hypothyroidism 12/12/2024 Acquired hypothyroidism Unspecified hypothyroidism 12/14/2024 Chronic fatigue Other malaise and fatigue 12/14/2024 Other hyperlipidemia 12/14/2024 Vitamin D deficiency Unspecified vitamin D deficiency 12/14/2024 Secondary adrenal insufficiency Glucocorticoid deficiency 12/14/2024 Hypertensive emergency Unspecified essential hypertension 04/24/2018 Acquired [...] General On track( 1:52 PM EDT) Yara Huddleston, DEAA Take rest breaks to enable body time to recover from recent surgery General On track( 021 1:53 PM EDT) No Page Chatterjee, RN Care Teams Jewelry Dipper Relationship Specialty Start Date End Date Na Ang MD [address] [address] Consulting Physician Ophthalmology 07/10/20
--- OUTSIDE RECORDS SUMMARY | 2024-12-26 10:17 | XMS_ITS | Referral Summary ---
Author Organization [facility] Address [address] [place] [phone] Care Team Providers Care Recreation Attendant Supervisor Name Role Phone Janet Vogt MD Primary Care Provider [phone] Allergies Active Allergy Reactions Criticality Noted Date [...] Treatment Not on file Insurance Care Teams Recreation Attendant Supervisor Relationship Specialty Start Date End Date Janet Vogt MD PCP - General Family Medicine 07/19/22
--- OUTSIDE RECORDS SUMMARY | 2024-12-26 10:17 | XMS_ITS | Clinical Summary ---
Author Organization [facility] Address [address] [place] [phone] Care Team Providers Care Gluing Crew Leader Name Role Phone Janet Vogt MD Primary Care Provider Allergies Active Allergy Reactions Criticality Noted Date [...] Vaccine (2 - 2023- season) 2024 11/29/2020 Influenza Vaccine (#1) 2024 , 03/22/2023, 02/16/2022, Additional history exists COLONOSCOPY 5 YEARS 10/09/2027 10/08/2022 Pneumococcal 50+ Completed 01/18/2019, 05/2012, 09/30/2009 Colonoscopy Discontinued 10/08/2022 Shingrix Completed 09/22/2023, 04/19/2023 HPV Aged Out No longer eligi ble [...] 10:27 AM 07/20/2022 7:21 PM Care Teams Gluing Crew Leader Relationship Specialty Start Date End Date Janet Vogt MD PCP - General Family Medicine 07/19/22
--- OUTSIDE RECORDS SUMMARY | 2024-12-26 10:17 | XMS_ITS | Clinical Summary ---
Author Organization [facility] Address [address], [address] [place] [address] Care Team Providers Care Wash House Supervisor Name Role Phone Elvira Velarde MD Primary [...] 1 capsule by mouth daily 8 Active Griffin-3 Fatty Acids (FISH OIL OMEGA-3 PO) Take [...] bone density assessment. Study was performed on [employer] 5. Bone Density: Region BMD T-score Z-score [...] 0.805 -1.1 4.3%* 07/10/2008 63 0.772 -1.4 05/04 Forearm(Left) 01/18/2020 75 0.650 -0.7 -1.5% 05/26/2010 [...] AM EDT HB-LCA Comment:Result canceled by t landy ancillary 08/30/2017 10:3 7 AM EDT 08/30/2017 [...] Relevant to Health Maintenance Insurance Care Teams Wash House Supervisor Relationship Specialty Start Date End Date Elvira Velarde MD PCP - General Family Medicine 09/01/16
--- OUTSIDE RECORDS SUMMARY | 2024-12-26 10:17 | XMS_ITS | Clinical Summary ---
Author Organization [facility] Address [address] [place] [address] Care Team Providers Care Central Office Repairer Supervisor Name Role Phone Nonstaff, Referring MD Primary Care Provider [phone] Prashant Barnes MD Unavailable Allergies Active Allergy Reactions Criticality Noted Date [...] Active fluticasone (FLONASE) 50 mcg/actuation nasal spray Robards 1 Robards into nose daily. Active omeg3/dha/epa/f antonia oil/L.casei [...] L2 l umbar vertebra, closed, initial encounter 12/28/2022 DDD (degenerative disc disease), lumbar 12/29/19 23 Spinal stenosis, lumbar orion on, with neurogenic claudication 12/28/2022 Urgency of urination 03/17/2010 Postmenopausal atrophic vaginitis 03/17/2010 Family History Medical History Relation Name Comments Cancer Brother 1 Cancer Brother 2 Heart Problems Father [place] Hypertension Father Stroke Mother Cancer Sister Hypertension [...] series) 10/12/2019 Tetanus Vaccination (Every 10 Years) 06/07/2023 02/0 09/2013 COVID-19 Vaccine ( season) 2024 Advance Care Planning 05/02/2024 Depression Screening 05/02/2024 Influenza Vaccination (#1) 2024 01/24/2013 Osteoporosis Screening 01/17/2025 01/18/2020 Influenza Vaccination (Yearly) Discontinued 01/24/2013 Insurance Advance Directives For more information, please contact: [phone] * No Code Status (Latest Code Status on File) Date Activated Date Inactivated Comments 07/03/2015 11:28 AM [facility] * Full Code Date Activated Date Inactivated Comments 02/08/2008 2:38 AM 02/08/2008 4:55 PM Care Teams Central Office Repairer Supervisor Relationship Specialty Start Date End Date Nonstaff, MD Deshawn [address] [place], [place] [phone] (Work) PCP - General Family Medicine 03/20/13 Prashant Barnes MD [address] [facility] [place] [address] Urology 05/09/22
--- OUTSIDE RECORDS SUMMARY | 2024-12-26 10:17 | XMS_ITS | Encounter Summary ---
Author Organization [facility] Address [address] [address] Care Team Providers Care Sinker Puller Name Role Phone Leroy Gordon APRN Primary Care Provider [phone] Stefan Lennon MD Unavailable [phone] Vikas Green MD Unavailable [phone] Encounter Details Date Type Department Care Team ([facility] st Contact Info) Description 11/08/2024 Telephone [facility] Nephrology, Bone & Mineral Metabolism [address], [address] [place] [address] Corrina Jarvis PharmD [address] [facility] [address] [facility] [address] [place] [address] Social History Tobacco Use Types [...] Miscellaneous Notes * Telephone Encounter - Corrina Rome, PharmD - 11/08/2024 2:37 PM EDT Spoke with patient over the phone after she called in to report she was in the ED over the weekend after having nausea/vomiting for several hours and hand cramping/spasms. She reported on labs it showed her sodium was low, however patient does not recall specific sodium level and was discharged home from ED. Reviewed chart and previous labs in [facility] that show patient's Na was 141 on 10/25. Discussed low sodium may be due to vomiting she was experiencing. Reviewed medication list and discussed no medication noted with high risk of causing acute hyponatremia. Patient stated she has a follow upwith her PCP next week and is getting repeat labs. Discussed this is appropriate next steps and to let clinic know if any other concerns arise. Domo RomanD, BCACP Clinical Pharmacist [facility] [address] [place] [address] documented in this encounter Plan of Treatment Upcoming Encounters Date Type Department Care Team (Late st Contact Info) Description 07/05/2025 11:40 AM EST Office Visit [facility] [address] [place] [address] Devin Monahan MD [address] [place] [phone] documented as of this encounter Visit Diagnoses Not on filedocumented in this encounter Additional Health Concerns Assessment Noted Time A fall risk assessment has been complete d for the patient 03/14/2023 2:59 PM EST A Body Mass Index follow-up plan has been documented for the patient 06/22/2024 2:21 PM EST documented as of this encounter Care Teams Sinker Puller Relationship Specialty Start Date End Date Leroy Gordon APRN [address] [place] [id number] PCP - General 10/07/22 Stefan Lennon MD [address] [place] [address] Surgeon Neurosurgery 03/01/23 Vikas Green MD [address] [place] [address] Surgeon Neurosurgery 03/30/23 documented as of this encounter
--- OUTSIDE RECORDS SUMMARY | 2024-12-26 10:17 | XMS_ITS | Encounter Summary ---
Author Organization [place] [address] Care Team Providers Care Bet Taker Name Role Phone Janet Vogt MD Primary Care Provider Na Ang MD Unavailable [phone] Encounter Details Date Type Department Care Team (Late st Contact Info) Description 07/11/2019 Lab Requisition [facility] [place] [address] Gerardo Purcell MD [address] [place] [address] Personal history of colonic polyps; Other specified diseases of intestine Social History Tobacco Use Types Packs/Day Years [...] No 03/14/2019 1:41 PM Adriana Goode CHRIS * Is the person blind or does he/she have serious difficulty seeing even when wearing glasses? Answer Date of Assessment Author No 03/14/2019 1:41 PM Adriana Goode CCMA * Does this person have serious difficulty walking or climbing stairs? Answer Date of Assessment Author No 03/14/2019 1:41 PM Adriana Goode CHRIS * Does this person have difficulty dressing or bathing? Answer Date of Assessment Author No 03/14/2019 1:41 PM Adriana Goode CCMA * Because of a physical, mental or emotional condition, does this person have difficulty doing errands alone such as visiting a doctor's office or shopping? Answer Date of Assessment Author No 03/14/2019 1:41 PM Adriana Goode CCMA documented as of this encounter Mental Status * Because of a physical, mental or emotional condition, does this person have serious difficulty concentrating, remembering or making decisions? Answer Entry Date Author No 03/14/2019 1:41 PM Adriana Goode CHRIS documented in this encounter Plan of Treatment Upcoming Encounters Date Type Department Care Team (Late st Contact Info) Description 01/16/2025 11:30 AM EDT Telemedicine [facility] [place] [address] [place] [address] Katharine Whitlock MD [address] [employer] [address] [place] [phone] 08/15/2025 1:40 PM EDT Office Visit [facility] [address] [employer] [address] [place] [address] Na Ang MD [address] [address] documented as of this encounter Goals Goal Patient Goal Type Associated Problems Recent Progress Patient-Stated? Author Blood Pressure < 140/90 Blood Pressure 142/74(07/29/ 2025 12:23 PM EDT) No Yara Anders CCMA Maintain a healthy diet, exercise regularly and maintain an ideal body weight General On track( 021 1:52 PM EDT) No Yara Anders CCMA documented as of this encounter Procedures Procedure Name Priority Date/Time Associated Diagnosis Comments PATHOLOGY TISSUE REQUEST Routine 07/11/2019 12:30 PM EDT Personal history of colonic polyps Other specified diseases of intestine documented in this encounter Results * PATHOLOGY TISSUE REQUEST (07/11/2019 12:30 PM EDT) CASE REPORT Surgical Pathology Case: [id number] Authorizing Provider: Gerardo Purcell MD Collected: 07/11/2019 1230 Ordering Location: ED LABORATORY Received: 07/11/2019 1830 Pathologist: Claudia Issa MD Specimen: Large Intestine, Rectum 07/12/2019 9:14 AM EDT [facility] CLINICAL HISTORY Personal history of colon polyps. 07/12/2019 9:14 AM EDT [facility] FINAL DIAGNOSIS Distal rectum, biopsy: - Colonic mucosa with mild acute inflammation and mild hyperplastic change. - Negative for granuloma, dysplasia, or malignancy. 07/12/2019 9:14 AM EDT [facility] at 0914 EDT COMMENT 07/12/2019 9:14 AM EDT [facility] GROSS DESCRIPTION Received in formalin labeled with the patient's name and distal rectal biopsy are 3 fragments of rico tissue ranging from 0.3 to 0.5 cm in greatest dimension. Entirely submitted in one cassette. /ZN 07/12/2019 9:14 AM EDT [facility] MICROSCOPIC DESCRIPTION Microscopic examination is performed and the findings corroborate the diagnosis. 07/12/2019 9:14 AM EDT [facility] SPECIAL STAINS 07/12/2019 9:14 AM EDT [facility] EMBEDDED IMAGES 07/12/2019 9:14 AM EDT [facility] Tissue RECTUM STRUCTURE / Unknown 07/11/2019 12:30 PM EDT 07/11/2019 6:30 PM EDT us Gerardo Rahman MD PATHOLOGY ORDERABLES Final Result [facility] [address] [place], [place] [id number] documented in this encounter Visit Diagnoses Diagnosis Personal history of colonic polyps Other specified diseases of intestine documented in this encounter Additional Health Concerns Infection Onset Date Last Indicated Resolved Time COVID-19 Comment:[place] [id number]: import to resolve all COVID-19 infections added [...] documented as of this encounter Care Teams Bet Taker Relationship Specialty Start Date End Date Janet Vogt MD [address] [place] [address] PCP - General Family Medicine 12/04/18 03/09/23 Na Ang MD [address] [address] Consulting Physician Ophthalmology 07/10/20 documented as of this encounter
--- OUTSIDE RECORDS SUMMARY | 2024-12-26 10:17 | XMS_ITS | Encounter Summary ---
Author Organization [facility] Address [address], [address] [place] [address] Care Team Providers Care Product Safety Administrator Name Role Phone Elvira Velarde MD Primary Care Provider Jossue mejía Reason for Visit * Reason Comments Medication Refill Encounter Details Date Type Department Care Team (Late st Contact Info) Description 01/28/2015 Refill [facility] Met[facility] Zach [address] [place] [address] [address] [place] [address] Heydi Stoll PA-C [address] [place] [address] [address] [place] [address] Medication Refill Social History Tobacco Use Types [...] on filedocumented in this encounter Care Teams Product Safety Administrator Relationship Specialty Start Date End Date Elvira Velarde MD PCP - General Family Medicine 09/01/16 documented as of this encounter
--- OUTSIDE RECORDS SUMMARY | 2024-12-26 10:17 | XMS_ITS | Encounter Summary ---
Author Organization [facility] Address [address] [place] [address] Care Team Providers Care Right Of Way Buyer Name Role Phone Nonstaff, Referring Primary Care Provider [phone] Prashant Barnes MD Unavailable [phone] Encounter Details Date Type Department Care Team (Late st Contact Info) Description 12/04/2015 Clinical Update [facility] Physicians - Urology, [facility] [address] [place] [address] [place] [phone] Hyacinth Rios NP [address] [place] [address] [place] [address] Social History Tobacco Use Types Packs/Day Years [...] on filedocumented in this encounter Care Teams Right Of Way Buyer Relationship Specialty [place] [address] [place] [address] PCP - General Family Medicine 03/20/13 Prashant Barnes MD [address] [place] [address] Urology 05/09/22 documented as of this encounter
--- OUTSIDE RECORDS SUMMARY | 2024-12-26 10:17 | XMS_ITS | Encounter Summary ---
Author Organization [facility] Address [address] [place] [address] Care Team Providers Care Barber Shop Operator Name Role Phone Elvira Velarde MD Primary Care Provider Jossue mejía Reason for Visit * Reason Comments Medication Refill Encounter Details Date Type Department Care Team (Late st Contact Info) Description 10/18/2017 Refill [facility] Endocrinology & Diabetes [address] [facility] [address] [facility] [address] [place] [address] Sid Olmedo MD [address] [place], [place] [id number] Medication Refill Social History Tobacco Use Types [...] on filedocumented in this encounter Care Teams Barber Shop Operator Relationship Specialty Start Date End Date Elvira Velarde MD PCP - General Family Medicine 09/01/16 documented as of this encounter
--- OUTSIDE RECORDS SUMMARY | 2024-12-26 10:17 | XMS_ITS | Encounter Summary ---
Author Organization [facility] Address [facility] [place] [address] Phone Care Team Providers Care Road Machinery Inspector Name Role Phone Janet Vogt MD Primary Care Provider [phone] Encounter Details Date Type Department Care Team ([facility] st Contact Info) Description 07/22/2022 Discharge Call Center Patient Call Center [address] [place] [address] Social History Tobacco Use Types Packs/Day Years [...] on filedocumented in this encounter Care Teams Road Machinery Inspector Relationship Specialty Start Date End Date Janet Vogt MD PCP - General Family Medicine 07/19/22 documented as of this encounter
--- OUTSIDE RECORDS SUMMARY | 2024-12-26 10:17 | XMS_ITS | Encounter Summary ---
Author Organization [facility] Address [address] [place] [address] Care Team Providers Care Crate Liner Name Role Phone Leroy Gordon AUTOMOTIVE CUSTOMER EXPERIENCE ADVISOR Primary Care Provider + [phone] Stefan Lennon MD Unavailable [phone] Vikas Green MD Unavailable [phone] Encounter Details Date Type Department Care Team (Late st Contact Info) Description 12/23/2022 Orders Only External Location [address] [place] [address] Leroy Gordon, AUTOMOTIVE CUSTOMER EXPERIENCE ADVISOR [address] [place] [address] Social History Tobacco Use Types [...] Description 07/05/2025 11:40 AM EST Office Visit [facility] [address] [place] [address] Devin Monahan MD [address] [place] [address] documented as of this encounter Procedures Procedure [...] documented as of this encounter Care Teams Crate Liner Relationship Specialty Start Date End Date Leroy Gordon, HORACE [address] [place] [address] PCP - General 10/07/22 Stefan Lennon MD [address] [place] [phone] Surgeon Neurosurgery 03/01/23 Vikas Green MD [address] [place] [address] Surgeon Neurosurgery 03/30/23 documented as of this encounter
--- OUTSIDE RECORDS SUMMARY | 2024-12-26 10:17 | XMS_ITS | Encounter Summary ---
Author Organization [place] [address] Care Team Providers Care Security Manager Name Role Phone Na Ang MD Unavailable [phone] Reason for Visit * Reason Onset Date Comments Results 12/12/2024 Schedule Appointment 12/12/2024 Encounter Details Date Type Department Care Team (Latest Contact Info) Description 12/12/2024 Results Follow-Up [facility] [place] 1500 [facility] [address] [place] [phone] Katharine Whitlock MD 1500 [facility] [address] [place] [phone] THYROID, C-REACTIVE PROTEIN, COMPREHENSIVE METABOLIC PANEL, Additional followed-up results: 26 Social History Tobacco Use Types Packs/Day Years [...] Date Recorded PHQ-2 Total Score 0 07/28/2022 [facility] - Occupational Stress Questionnaire Answer Date [...] 12/18/2020 1:08 PM EDAdriana Marcano CCMA * Is the person blind or does he/she have serious difficulty seeing even when wearing glasses? Answer Date of Assessment Author No 12/18/2020 1:08 PM Adriana Velasco CCMA * Does this person have serious difficulty walking or climbing stairs? Answer Date of Assessment Author No 12/18/2020 1:08 PM Adriana Velasco CCMA * Does this person have difficulty dressing or bathing? Answer Date of Assessment Author No 12/18/2020 1:08 PM EDT Adriana Anders clint Rangel CCMJessica * Because of a physical, mental or emotional condition, does this person have difficulty doing errands alone such as visiting a doctor's office or shopping? Answer Date of Assessment Author No 12/18/2020 1:08 PM EDT Adriana Anders DEA RangelJessica documented as of this encounter Mental Status * Because of a physical, mental or emotional condition, does this person have serious difficulty concentrating, remembering or making decisions? Answer Entry Date Author No 12/18/2020 1:08 PM EDT Adriana Andersjessica Rangel CCMJessica documented in this encounter Miscellaneous Notes * Telephone Encounter - Lisa Rodriguez - 12/20/2024 9:22 AM EDT sent to schedule appointment with * Telephone Encounter - Lisa Rodriguez - 12/20/2024 9:20 AM EDT ----- Message from Katharine Whitlock MD sent at 12/19/2024 5:51 PM EDT ----- She did not pass the hypoglycemia tolerance test - Results consistent with reactive hypoglycemia Plan; 1) Dietitian for reactive hypoglycemia 2) RTC in one month with Non fasting CMP to FU on the above Lab Results Component Value Date GLUCHALFHOUR 136 12/14/2024 [id number] 89 12/14/2024 GLUCONEHALFH 87 12/14/2024 CXKHNDQ6QY 84 12/14/2024 GLUCTWOFIVEH 80 12/14/2024 [id number] 57 12/14/2024 Nursing will contact you with the plan, will discuss specifics with next visit Best Regards ----- Message ----- From: [place], Background User Sent: 12/14/2024 1:33 PM EDT To: Katharine Whitlock MD * Telephone Encounter - Emma Do LPN - 12/13/2024 10:25 AM EDT Patient notified of results and recommendations. Patient verbalized understanding. * Telephone Encounter - Emma Do LPN - 12/13/2024 8:47 AM EDT Patient notified of results and recommendations via [employer] message. documented in this encounter Plan of Treatment Upcoming Encounters Date Type Department Care Team (Late st Contact Info) Description 01/16/2025 11:30 AM EDT Telemedicine [facility] [address] [facility] [address] [place] [phone] Katharine Whitlock MD [address] [facility] [address] [place] [phone] 08/15/2025 1:40 PM EDT Office Visit [facility] [address] [employer] [address] [place] [phone] Na Ang MD 1500 [facility] [address] [place] [phone] documented as of this encounter Goals Goal [...] documented as of this encounter Care Teams Security Manager Relationship Specialty Start Date End Date Na Ang MD [address] [place] [address] [phone] Consulting Physician Ophthalmology 07/10/20 documented as of this encounter
--- OUTSIDE RECORDS SUMMARY | 2024-12-26 10:17 | XMS_ITS | Encounter Summary ---
Author Organization [place] [address] Care Team Providers Care Powerhouse Electrician Name Role Phone Janet Vogt MD Primary Care Provider Na Ang MD Unavailable [phone] Encounter Details Date Type Department Care Team (Late st Contact Info) Description 07/11/2019 Orders Only [facility] [address] [place] [address] Gerardo Purcell MD [address] [place] [address] Social History Tobacco Use Types Packs/Day Years [...] Assessment Author No 03/14/2019 1:41 PM Adriana Goodee, CHRIS * Is the person blind or does he/she have serious difficulty seeing even when wearing glasses? Answer Date of Assessment Author No 03/14/2019 1:41 PM Adriana Goode Claire CHRIS * Does this person have serious difficulty walking or climbing stairs? Answer Date of Assessment Author No 03/14/2019 1:41 PM Adriana Goode Claire CHRIS * Does this person have difficulty dressing or bathing? Answer Date of Assessment Author No 03/14/2019 1:41 PM Adriana Goode Claire CHRIS * Because of a physical, mental or emotional condition, does this person have difficulty doing errands alone such as visiting a doctor's office or shopping? Answer Date of Assessment Author No 03/14/2019 1:41 PM Adriana Goode CHRIS documented as of this encounter Mental Status * Because of a physical, mental or emotional condition, does this person have serious difficulty concentrating, remembering or making decisions? Answer Entry Date Author No 03/14/2019 1:41 PM Adriana Goode CHRIS documented in this encounter Plan of Treatment Upcoming Encounters Date Type Department Care Team (Late st Contact Info) Description 01/16/2025 11:30 AM EDT Telemedicine [facility] [address] [place], [place] [phone] Katharine Whitlock MD [address] [place] [phone] 08/15/2025 1:40 PM EDT Office Visit [facility] [address] [place] [phone] Na Ang MD [address] [phone] documented as of this encounter Goals Goal [...] EDT) 07/11/2019 12:3 0 PM EDT Impressions [facility] - 07/11/2019 1:00 PM EDT Erythema in the distal rectum. (Biopsy). Otherwise normal colonoscopy. Abnormal digital rectal exam (large external hemorrhoids). Plan: No need for further screening colonoscopies due to age. This section is an excerpt of the full report. Gerardo Rahman MD GI PROCEDURE ORDERABLES Fi nal Result Performing Organization Address City/State/[facility] Co de Phone Number [facility] [address] [phone] documented in this encounter Visit Diagnoses Not on filedocumented in this encounter Additional Health Concerns Infection Onset Date Last Indicated Resolved Time COVID-19 Comment:[id number]: import to resolve all COVID-19 infections added [...] documented as of this encounter Care Teams Powerhouse Electrician Relationship Specialty Start Date End Date Janet Vogt MD [address] [place] [address] PCP - General Family Medicine 12/04/18 03/09/23 Na Ang MD [address] [phone] Consulting Physician Ophthalmology 07/10/20 documented as of this encounter
--- OUTSIDE RECORDS SUMMARY | 2024-12-26 10:17 | XMS_ITS | Clinical Summary ---
Author Organization [facility] Address [address] [place] [address] Care Team Providers Care Asphalt Paving Machine Operator Name Role Phone Heidi Leroy Kaufman APRN Primary Care Provider [phone] Stefan Lennon MD Unavailable [phone] Vikas Green MD Unavailable [phone] Allergies Active Allergy Reactions Criticality Noted Date [...] Encounters Date Type Department Care Team Description 11/08/2024 Telephone Professional [facility] [address] [facility], [address] [place] [address] Corrina Jarvis, PharmD from Last 3 Months Immunizations Immunization Administration [...] Description 07/05/2025 11:40 AM EST Office Visit [facility] [address] [place] [phone] Devin Monahan MD [address] [place] [phone] Health Maintenance Due Date Last Done Comments [facility]-Depression Screening 1944 [facility]-/Child/Adol SDOH Screenings 1944 [facility]- SDOH Screenings 1962 [facility]-Adult SDOH Screenings 1962 [facility]-RSV Vaccine: 60+ Years or (1 - 1-dose 75+ series) 10/12/2019 [facility]-Medicare Annual Wellness (AWV) 01/19/2020 01/18/2019 [id number]-21 Vaccine (2 - Moderna risk series) 12/27/2020 [...] patient's age to complete this topic Insurance Care Teams Asphalt Paving Machine Operator Relationship Specialty Start Date End Date Leroy Gordon APRN [address] [place] [address] PCP - General 10/07/22 Stefan Lennon MD [address] [phone] Surgeon Neurosurgery 03/01/23 Vikas Green MD [address] [phone] Surgeon Neurosurgery 03/30/23
--- OUTSIDE RECORDS SUMMARY | 2024-12-26 10:17 | XMS_ITS | Patient Health Record ---
Author Organization [facility] Address [address] [facility] [address] [place] [address] [place] [address] Care Team Providers Care Concrete Pouring Supervisor Name Role Phone Vicky Nelson Unavailable [phone] Reason For Referral No Information Medications Medication [...] Coverage End Date [employer] CLAIMS [address] [address] [place] [address] [phone] [id number] GILBERT RUSHING Self - patient is the insured
--- OUTSIDE RECORDS SUMMARY | 2024-12-26 10:17 | XMS_ITS | Encounter Summary ---
Author Organization [place] [address] Care Team Providers Care Curve Cleaner Name Role Phone Na Ang MD Unavailable [phone] Encounter Details Date Type Department Care Team (Late st Contact Info) Description 12/07/2024 Results [facility] [place] [address] [facility] [address] [place] [phone] Katharine Whitlock MD 1500 [facility] [address] [place] [phone] [place]- COMPUNET, T3 FREE, VITAMIN B6 (PYRIDOXINE) -REF LAB, Additional followed-up results: 18 Social History Tobacco Use Types Packs/Day Years [...] Date Recorded PHQ-2 Total Score 0 07/28/2022 [facility] - Occupational Stress [...] Adriana Anders CCMA documented in this encounter Miscellaneous Notes * Telephone Encounter - Aurelia Chatman RN - 12/10/2024 3:49 PM EDT [employer] message sent to patient in regards to HTT testing. documented in this encounter Plan of Treatment Upcoming Encounters Date Type Department Care Team (Late st Contact Info) Description 01/16/2025 11:30 AM EDT Telemedicine [facility] [place] [address] [employer] [place] [address] Katharine Whitlock MD [address] [email or web address] [address] 08/15/2025 1:40 PM EDT Office Visit [facility] [address] [place] [address] Na Ang MD [address] [phone] documented as of this encounter Goals Goal [...] Montgomery RN documented as of this encounter Visit Diagnoses Diagnosis Secondary adrenal insufficiency- Primary Glucocorticoid deficiency Acquired hypothyroidism Unspecified hypothyroidism Chronic fatigue Other malaise and fatigue documented in this encounter Additional Health Concerns Assessment Noted Time A fall risk assessment has been complete d for the patient 07/28/2022 2:08 PM EDT documented as of this encounter Care Teams Curve Cleaner Relationship Specialty Start Date End Date Na Ang MD [address] [address] Consulting Physician Ophthalmology 07/10/20 documented as of this encounter
== END 2024-12-24 23:59 | disposition home or self-care (01) ==
LOC: LAB.DROPOF 12-26 10:11
PROVIDERS: PCP Urology; Visit Provider Urology
DX: N32.81 Overactive bladder (principal); R31.9 Hematuria, unspecified
CPT/HCPCS: 81001

== ENCOUNTER 2024-12-31 03:08 | Emergency (ER) | payer MEDICARE, SELFPAY ==
--- OUTSIDE RECORDS SUMMARY | 2016-09-14 14:04 | XMS_ITS | Encounter Summary ---
Author Organization [facility] [place] [address] Care Team Providers Care Maintenance Job Titles Name Role Phone Elvira Velarde MD Primary Care Provider [phone] Encounter Details Date Type Department Care Team (Late st Contact Info) Description 09/14/2016 2:04 PM EDT Hospital Encounter [facility] Referral Lab [address] [place] [phone] Oumar Alves MD [address] [place] [phone] Low back pain Social History Tobacco Use [...] Date Recorded PHQ-2 Total Score 0 07/28/2022 [facility] [place] of Occupat ional [facility] - Occupational Stress Questionnaire Answer Date [...] 2:50 PM EDT Mariama Hackett RN * [place] Suicide Severity Rating Scale (Q shift for [...] Info) Description 01/16/2025 11:30 AM EDT Telemedicine [facility] Diabetes [place] [address] [place] [address] Katharine Whitlock MD [address] [place] [phone] 08/15/2025 1:40 PM EDT Office Visit [facility] [address] [place] [phone] Na Ang MD [address] [address] Scheduled Orders Name Type Priority [...] Onset Date Last Indicated Resolved Time COVID-19 Comment:KS [id number]: import to resolve all COVID-19 infections added prior to 03/01/2020 02/21/2020 02/21/2020 03/25/2020 1:4 0 PM EST R/O COVID-19 12/11/2020 12/11/2020 12/11/2020 1:41 PM EDT R/O COVID-19 04/16/2021 04/16/2021 04/17/2021 2:30 PM EST R/O COVID-19 04/28/2022 04/28/2022 04/28/2022 7:12 AM EST INFLUENZA 04/28/2022 04/28/2022 05/06/2022 10:1 2 PM EST documented as of this encounter Care Teams Maintenance Job Titles Relationship Specialty Start Date End Date lEvira Velarde MD [address] [place] [address] PCP - General Family Medicine 10/04/14 10/22/18 documented as of this encounter
--- OUTSIDE RECORDS SUMMARY | 2024-11-27 12:30 | XMS_ITS | Encounter Summary ---
Author Organization [place] [address] Care Team Providers Care Game Developer Name Role Phone Na Ang MD Unavailable [phone] Reason for Referral * Ultrasound (Routine) - Pending Review Specialty Diagnoses / Procedures Referred By Contac t Referred To Contact Radiology Diagnoses Acquired hypothyroidism Procedures US THYROID Katharine Whitlock MD [address] [employer] [employer] [address] [place] [phone] Phone: tel: fax: Referral ID Status Reason Start Date Expiration Date V isits Requested Visits Authorized [id number] Pending Review 11/27/2024 11/27/2025 1 1 Reason for Visit * Reason Comments Other Encounter Details Date Type Department Care Team (Latest Contact Info) Description 11/27/2024 12:30 PM EDT [facility] [address] [employer] [address] [place] [phone] Katharine Whitlock MD [address] [facility] [address] [place] [phone] Acquired hypothyroidism (Primary Dx); Secondary adrenal insufficiency; Chronic fatigue; Other hyperlipidemia; Vitamin D deficiency Social History Tobacco Use Types Packs/Day Years [...] Date Recorded PHQ-2 Total Score 0 07/28/2022 [facility] - Occupational Stress [...] on file documented as of this encounter Last Filed Vital Signs Vital Sign Reading Time Taken Comments Blood Pressure 142/74 11/27/2024 12:23 PM EDT Pulse 67 11/27/2024 12:23 PM EDT Temperature - - Respiratory Rate 16 11/27/2024 12:23 PM EDT Oxygen Saturation - - Inhaled Oxygen Concentration - - Weight 68.9 kg (152 lb) 11/27/2024 12:23 PM EDT Height 165.1 cm (5' 5 ) 11/27/2024 12:23 PM EDT Body Mass Index 25.29 11/27/2024 12:23 PM EDT documented in this encounter Functional Status * Is the person deaf or does he/she have serious difficulty hearing? Answer Date of Assessment Author No 12/18/2020 1:08 PM EDT Adriana Anders CCMA * Is the person blind or does he/she have serious difficulty seeing even when wearing glasses? Answer Date of Assessment Author No 12/18/2020 1:08 PM EDT Adriana Anders CCMA * Does this person have serious difficulty walking or climbing stairs? Answer Date of Assessment Author No 12/18/2020 1:08 PM EDT Adriana Anders CCMA * Does this person have difficulty dressing or bathing? Answer Date of Assessment Author No 12/18/2020 1:08 PM EDT Adriana Anders CCMA * Because of a physical, mental or emotional condition, does this person have difficulty doing errands alone such as visiting a doctor's office or shopping? Answer Date of Assessment Author No 12/18/2020 1:08 PM EDT Adriana Anders CCMA documented as of this encounter Mental Status * Because of a physical, mental or emotional condition, does this person have serious difficulty concentrating, remembering or making decisions? Answer Entry Date Author No 12/18/2020 1:08 PM EDT Adriana Anders CCMA documented in this encounter Progress Notes * Katharine Whitlock MD - 11/27/2024 12:30 PM EDT Subjective: Patient ID: Leia Moreira is a 79 y.o. female who is here for initial assessment of her endocrine related health problems namely thyroid issues This a self referral Chief Complaint Patient presents with Other HPI Dx 10 + yrs On LT4; 75 mcg daily for the last many months Uses Generic Uses same pharmacy Gets 30 days supply at a time. Takes it by itself. Takes it out of the bottle it comes in Keeps it in the bedroom. Last TSH Lab Results Component Value Date TSH 1.660 04/11/2018 TSHREFLEX 1.630 08/22/2020 TSHREFLEX 1.470 12/04/2018 No results found for: FREET4 No results found for: T3FREE No results found for: FREET4 Based on body weight the expected calculated dose would be ~ 117 mcg No Prior thyroid US Dyslipidemia with SubClinical ASCVD - Major ASCVD events: none - High risk Conditions: Age>=65 and HTN - Risk Group: High Risk - Treatment to be intensified if the LDL >= 70 Patient was tried on these Lipid lowering therapies (LLT) -atorvastatin calcium Currently on: Statin medications: No statin orders found for patient PCSK9 Inhibitors: -02/03/2023 INCLISIRAN 284 MG/1.5 ML SUBCUTANEOUS SYRINGE - 0 Rx#[id number]. Other antihyperlipidemic medications: -02/03/2023 FENOFIBRATE 160 MG TABLET - 0 Rx#[id number]. Therapy plan medications: No therapy plan of the specified type found. No results found for: LIPOPROTA No results found for: LIPOA Lab Results Component Value Date LDLCALC 149 (H) 04/25/2018 LDLDIRECT 83 08/22/2020 Lab Results Component Value Date TRIG 220 (H) 08/22/2020 TRIG 94 04/25/2018 Does not smoke Had numerous epidurals over the last 2 years between 3 spots right left and epidural. Definitely those epidurals might help slow down her adrenal gland. The recommended treatment for the epidural is not more than 3/year anything more than that put her at a higher risk for adrenal suppression. Has tingling and numbness in the feet and goes up, bilateral Has nausea at times Lightheaded and troubles with gait Past Medical History: Diagnosis Date Cataract COVID-19 02/21/2020 Difficulty urinating Fatty liver Heartburn High triglycerides Hyperlipemia Hypertension Hypothyroidism Incomplete bladder emptying 04/30/2019 Irritable bowel syndrome Neuromuscular disorder (HCC) peripheral neuropathy in bilateral lower extremities Osteoarthritis Thyroid disease hypothyroidism Social History Socioeconomic History Marital status: Spouse name: None Number of children: None Years of education: None Highest education level: None Tobacco Use Smoking status: Never Passive exposure: Never Smokeless tobacco: Never Vaping Use Vaping status: Never Used Substance and Sexual Activity Alcohol use: No Drug use: No Sexual activity: Yes Social Drivers of Health Financial Resource Strain: Low Risk (11/25/2020) Overall Financial Resource Strain (CARDIA) Difficulty of Paying Living Expenses: Not hard at all Received from [facility] Food Insecurities Received from [facility] Transportation Physical Activity: Insufficiently Active (12/18/2020) Exercise Vital Sign Days of Exercise per Week: 7 days Minutes of Exercise per Session: 10 min Stress: No Stress Concern Present (11/25/2020) [facility] - Occupational Stress Questionnaire Feeling of Stress : Not at all Received from [facility] Interpersonal Safety Received from [facility] Housing/Utilities Family History Problem Relation Age of Onset Alzheimer's Disease Mother Stroke Mother Heart Attack Father High Cholesterol Father High Cholesterol Sister Other (bypass) Sister Lung Cancer Sister Lung Cancer Brother Cataracts Neg Hx Glaucoma Neg Hx Macular Degen Neg Hx Anesth Problems Neg Hx Current Outpatient Medications Medication amLODIPine (NORVASC) 10 mg Oral Tablet candesartan (ATACAND) 16 mg Oral Tablet carvediloL (COREG) 12.5 mg Oral Tablet cyclobenzaprine (FLEXERIL) 5 mg Oral Tablet dicyclomine (BENTYL) 20 mg Oral Tablet DULoxetine (CYMBALTA) 60 mg Oral Capsule, Delayed Release(E.C.) famotidine (PEPCID) 40 mg Oral Tablet fenofibrate (LOFIBRA) 160 mg Oral Tablet inclisiran (LEQVIO) 284 mg/1.5 mL SubQ Syringe levothyroxine (SYNTHROID) 75 mcg Oral Tablet ondansetron (ZOFRAN) 4 mg Oral Tablet albuterol (PROVENTIL HFA;VENTOLIN HFA) 90 mcg/actuation Inhl HFA Aerosol Inhaler aspirin 81 mg Oral Tablet, Delayed Release (E.C.) azelastine (ASTELIN) 137 mcg (0.1 %) Nasl Aerosol, [place] clonazePAM (KLONOPIN) 0.5 mg Oral Tablet estradioL (ESTRACE) 0.01 % (0.1 mg/gram) Vagl Cream Hyoscyamine Sulfate 0.125 mg Oral Tablet, Rapid Dissolve methocarbamoL (ROBAXIN) 500 mg Oral Tablet mirtazapine (REMERON) 15 mg Oral Tablet nebivoloL (BYSTOLIC) 5 mg Oral Tablet fblxpiyu-vidztoovv-oajxsvczlnvhbjoywg (MAXITROL) 3.5mg/mL-10,000 unit/mL-0.1 % Opht Drops, Suspension NIFEdipine (PROCARDIA XL) 30 mg Oral Tablet Extended Rel 24 hr pantoprazole (PROTONIX) 40 mg Oral Tablet, Delayed Release (E.C.) pantoprazole (PROTONIX) 40 mg Oral Tablet, Delayed Release (E.C.) pramipexole (MIRAPEX) 0.25 mg Oral Tablet tamsulosin (FLOMAX) 0.4 mg Oral Capsule tiZANidine (ZANAFLEX) 4 mg Oral Tablet No current facility-administered medications for this visit. Allergies Allergen Reactions Codeine Nausea Only Lisinopril Cough Sulfa (Sulfonamide Antibiotics) Nausea Only AND WEAKNESS Cefdinir Other (See Comments) Pt stated that the medication gave her cramps and diarrhea. Ciprofloxacin Other (See Comments) Itching inner ears-persistant with infusion today preop even with decreased rate Hydralazine Palpitations Morphine Other (See Comments) convulsions Naprosyn [Naproxen] Nausea And Vomiting Percocet [Oxycodone-Acetaminophen] Nausea Only Tramadol Other (See Comments) Pt states it helps her problem but makes her colon bleed. Review of Systems Constitutional: Positive for fatigue. Neurological: Positive for light-headedness and numbness. Objective: Vitals: 11/27/24 1223 BP: 142/74 Pulse: 67 Resp: 16 Weight: 152 lb (68.9 kg) Height: 5' 5 (1.651 m) Body mass index is 25.29 kg/m??. Physical Exam Constitutional: General: She is not in acute distress. Appearance: She is not ill-appearing, toxic-appearing or diaphoretic. HENT: Head: Normocephalic. Eyes: Extraocular Movements: Extraocular movements intact. Conjunctiva/sclera: Conjunctivae normal. Pulmonary: Effort: Pulmonary effort is normal. Skin: Coloration: Skin is not pale. Findings: No bruising, erythema or rash. Neurological: General: No focal deficit present. Mental Status: She is alert and oriented to person, place, and time. Psychiatric: Mood and Affect: Mood normal. Behavior: Behavior normal. Thought Content: Thought content normal. Judgment: Judgment normal. Assessment and Plan: Leia was seen today for other. Diagnoses and all orders for this visit: Acquired hypothyroidism - C-REACTIVE PROTEIN; Future - COMPREHENSIVE METABOLIC PANEL; Future - IRON+TIBC; Future - URIC ACID; Future - VITAMIN B12 LEVEL; Future - THYROID STIMULATING HORMONE; Future - T4, FREE (THYROXINE); Future - T3 FREE; Future - THYROID PEROXIDASE (TPO) ANTIBODY; Future - THYROGLOBULIN ANTIBODY -REF LAB; Future - US THYROID; Future Secondary adrenal insufficiency - DEHYDROEPIANDROSTERONE SULFATE; Future - CORTISOL; Future - ADRENOCORTICOTROPIC HORMONE -REF LAB; Future Chronic fatigue - VITAMIN B6 (PYRIDOXINE) -REF LAB; Future - LACTIC ACID; Future - LUTEINIZING HORMONE; Future Other hyperlipidemia - LIPOPROTEIN (A); Future - LIPID PANEL REFLEX; Future Vitamin D deficiency - VITAMIN D 25 HYDROXY; Future - VITAMIN D, 1,25-DIHYDROXY -REF LAB; Future - PARATHYROID HORMONE INTACT; Future - IONIZED CALCIUM - INPATIENT; Future Might need a.m. salivary cortisol for adrenal insufficiency or HTT Patient Instructions Please continue same dose of the medication(s) prescribed. Will update your with lab and thyroid US results when available this week in case adjustment is needed. No follow-ups on file. Katharine Whitlock MD documented in this encounter Miscellaneous Notes * Patient Instructions - Katharine Whitlock MD - 11/27/2024 12:30 PM EDT Please continue same dose of the medication(s) prescribed. Will update your with lab and thyroid US results when available this week in case adjustment is needed. documented in this encounter Plan of Treatment Upcoming Encounters Date Type Department Care Team (Late st Contact Info) Description 01/16/2025 11:30 AM EDT Telemedicine [facility] [address] [facility] [address] [place] [phone] Katharine Whitlock MD [address] [facility] [address] [place] [phone] 08/15/2025 1:40 PM EDT Office Visit [facility] [address] [facility] [address] [place] [address] Na Ang MD [address] [facility] [address] [place] [address] documented as of this encounter Goals Goal Patient Goal Type Associated Problems Recent Progress Patient-Stated? Author Blood Pressure < 140/90 Blood Pressure 142/74(2024 12:23 PM EDT) No Yara Anders CCMA Maintain a healthy diet, exercise regularly and maintain an ideal body weight General On track( 1:52 PM EDT) No Yara Anders CCMA Take rest breaks to enable body time to recover from recent surgery General On track( 1:53 PM EDT) No Page Chatterjee RN documented as of this encounter Results * ADRENOCORTICOTROPIC HORMONE -REF LAB (12/14/2024 12:41 PM EDT) [facility] ACTH 17.4 7.2 - 63.3 pg/mL 12/17/2024 7:33 PM EDT [employer] Comment: INTERPRETIVE INFORMATION: Adrenocorticotropic Hormone Reference interval based on samples collected between 7 a.m. and 10 a.m. No reference intervals established for p.m. collections. Pediatric reference values are the same as adults (Acta Paediatr Scand 1981;70:341-345). This assay measures intact ACTH 1-39; some types of synthetic ACTH and ACTH fragments are not detected by this assay. Performed By: [facility] [address] [place] [address] Wine Manager: Uvaldo Youssef MD, PhD CLIA Number: [id number] Blood VENOUS BLOOD / Unknown Venipuncture / Unknown 12/14/2024 12:41 PM EDT 12/14/2024 2:19 PM EDT Katharine Whitlock MD CHEMISTRY ORDERABLES Final Resu Performing Organization Address City/[facility]/ZIP Co de Phone Number [facility] [address] [place] [address] * CORTISOL (12/14/2024 12:41 PM EDT) Cortisol 5.82 mcg/dL 12/14/2024 6:5 8 PM EDT [employer] Blood VENOUS BLOOD / Unknown Venipuncture / Unknown 12/14/2024 12:41 PM EDT 12/14/2024 3:30 PM EDT Narrative [employer] - 12/14/2024 6:58 PM EDT AM: 4.82 - 19.5 mcg/dL This reference interval was verified on healthy individuals between the hours of 6:00 am -10:00 am. This interval may not be appropriate outside of that time range. PM: 2.47 - 11.9 mcg/dL This reference interval was verified on healthy individuals between the hours of 4:00 pm -8:00 pm. This interval may not be appropriate outside of that time range. Ingestion of aldair doses of biotin (>5 mg/day) taken within 8 hours of drawing blood sample can interfere with this immunoassay test. Katharine Whitlock MD CHEMISTRY ORDERABLES [facility] Performing Organization Address [facility] Co de Phone Number [employer] [address] [place] [address] , [place] [address] * (ABNORMAL) DEHYDROEPIANDROSTERONE SULFATE (12/14/2024 12:41 PM EDT) Dhea Sulfate 10.40(L) 12.00 - 154.00 mcg/dL 12/14/2024 6:58 PM EDT [employer] Blood VENOUS BLOOD / Unknown Venipuncture / Unknown 12/14/2024 12:41 PM EDT 12/14/2024 3:30 PM EDT Narrative [employer] - 12/14/2024 6:58 PM EDT Ingestion of aldair doses of biotin (>5 mg/day) taken within 8 hours of drawing blood sample can interfere with this immunoassay test. Katharine Whitlock MD CHEMISTRY ORDERABLES Final [facility] Performing Organization Address [facility] Co de Phone Number [facility] [address], [place] [address] * LUTEINIZING HORMONE (12/14/2024 12:41 PM EDT) LH 44.10 mIU/mL 12/14/2024 6:58 PM EDT [facility] [employer] [facility] Comment: Suggested Reference Ranges (mIU/mL) Females Follicular Phase 2.4 - 12.6 Ovulation Phase 14.0 - 95.6 Luteal Phase 1.0 - 11.4 Postmenopause 7.7 - 58.5 Males 1.7 - 8.6 Blood VENOUS BLOOD / Unknown Venipuncture / Unknown 12/14/2024 12:41 PM EDT 12/14/2024 3:30 PM EDT Narrative [facility] [employer] [facility] - 12/14/2024 6:58 PM EDT Ingestion of aldair doses of biotin (>5 mg/day) taken within 8 hours of drawing blood sample can interfere with this immunoassay test. Katharine Whitlock MD CHEMISTRY ORDERABLES Final [facility] Performing Organization Address [facility] de Phone Number [facility] [address], [place] [address] * THYROGLOBULIN ANTIBODY -REF LAB (12/14/2024 12:41 PM EDT) Thyroglob Ab <1.5 0.0 - 4.0 IU/mL 12/16/2024 6:43 AM EDT [employer] Comment: INTERPRETIVE INFORMATION: Thyroglobulin Antibody A value of 4.0 IU/mL or less indicates a negative result for thyroglobulin antibodies. The Thyroglobulin Antibody assay is being performed using the [employer] DxI method. Performed By: [facility] [address] [place] [address] Wine Manager: Uvaldo Youssef MD, PhD CLIA Number: [id number] Blood VENOUS BLOOD / Unknown Venipuncture / Unknown 12/14/2024 12:41 PM EDT 12/14/2024 2:31 PM EDT Result [facility] Katharine Whitlock MD IMMUNOLOGY ORDERABLES Final Res ult Performing Organization Address City/[facility]/ZIP Co de Phone Number [facility] [address] [place] [address] * THYROID PEROXIDASE (TPO) ANTIBODY (12/14/2024 12:41 PM EDT) TPO Ab <3.00 <=5.59 IU/mL 12/14/2024 7:09 PM EDT [facility] Blood VENOUS BLOOD / Unknown Venipuncture / Unknown 12/14/2024 12:41 PM EDT 12/14/2024 2:22 PM EDT Katharine Whitlock MD IMMUNOLOGY ORDERABLES Final Res ult Performing Organization Address [facility] de Phone Number PREFERRED [facility] [address] [facility] , [place] [address] * T3 FREE (12/14/2024 12:41 PM EDT) Pathologist [facility] T3 Free 2.24 2.00 - 4.40 pg/mL 12/14/2024 6:49 PM EDT [facility] Blood VENOUS BLOOD / Unknown Venipuncture / Unknown 12/14/2024 12:41 PM EDT 12/14/2024 2:23 PM EDT Narrative [facility] - 12/14/2024 6:49 PM EDT Ingestion of aldair doses of biotin (>5 mg/day) taken within 8 hours of drawing blood sample can interfere with this immunoassay test. Katharine Whitlock MD CHEMISTRY ORDERABLES Final Resu lt Performing Organization Address [facility]/ZIP Co de Phone Number [employer] [address] [facility] , [place] [address] * T4, FREE (THYROXINE) (12/14/2024 12:41 PM EDT) Free T4 1.41 0.80 - 1.80 ng/dL 12/14/2024 6:49 PM EDT [facility] [employer] Blood VENOUS BLOOD / Unknown Venipuncture / Unknown 12/14/2024 12:41 PM EDT 12/14/2024 2:23 PM EDT Narrative [facility] [employer], [facility] - 12/14/2024 6:49 PM EDT Ingestion of aldair doses of biotin (>5 mg/day) taken within 8 hours of drawing blood sample can interfere with this immunoassay test. Katharine Whitlock MD CHEMISTRY ORDERABLES Final Resu Performing Organization Address [facility] Co de Phone Number [facility] [employer] , [place] [address] * THYROID STIMULATING HORMONE (12/14/2024 12:41 PM EDT) Pathologist [facility] TSH 0.737 0.270 - 4.200 mcIU/mL 12/14/2024 6:49 PM EDT [facility] Blood VENOUS BLOOD / Unknown Venipuncture / Unknown 12/14/2024 12:41 PM EDT 12/14/2024 2:23 PM EDT Narrative [facility] - 12/14/2024 6:49 PM EDT Ingestion of aldair doses of biotin (>5 mg/day) taken within 8 hours of drawing blood sample can interfere with this immunoassay test. Katharine Whitlock MD CHEMISTRY ORDERABLES Final Resu Performing Organization Address City/[facility]/ZIP Co de Phone Number [facility] [address] , [place] [address] * PARATHYROID HORMONE INTACT (12/14/2024 12:41 PM EDT) PTH Intact 27.90 15.00 - 65.00 pg/mL 12/14/2024 6:35 PM EDT [facility] Blood VENOUS BLOOD / Unknown Venipuncture / Unknown 12/14/2024 12:41 PM EDT 12/14/2024 2:31 PM EDT Narrative [facility] [employer] [facility] - 12/14/2024 6:35 PM EDT Intact PTH Calcium Interpretation ------- 15 - 65 8.6 - 10.2 Normal > 65 > 10.2 Primary Hyperparathyroidism < 20 > 10.2 Non-Parathyroid hypercalcemia < 15 < 8.6 Hypoparathyroidism Consider the above as guidelines only. PTH results should be interpreted in conjunction with the total or ionized calcium level. The finding of a persistently high-normal calcium accompanied by a high-normal PTH (or a low-normal calcium accompanied by a low-normal PTH) warrants further investigation. Although the PTH may itself be within normal limits, it may be inappropriately high (or low) relative to the circulating calcium level. Ingestion of aldair doses of biotin (>5 mg/day) taken within 8 hours of drawing blood sample can interfere with this immunoassay test. Katharine Whitlock MD CHEMISTRY ORDERABLES Final Resu lt [facility] [employer] [address] , [address] [place] [id number] * VITAMIN D, 1,25-DIHYDROXY -REF LAB (12/14/2024 12:41 PM EDT) Vit D 1,25 46.9 19.9 - 79.3 pg/mL 12/16/2024 2:37 PM EDT [employer] [facility] Comment: INTERPRETIVE INFORMATION: Vitamin D, 1,25-Dihydroxy This test is primarily indicated during patient evaluation for hypercalcemia and renal failure. A normal result does not rule out Vitamin D deficiency. The recommended test for diagnosing Vitamin D deficiency is Vitamin D 25-hydroxy. Performed By: [facility] [address] [place] [address] Wine Manager: Uvaldo Youssef MD, PhD CLIA Number: [id number] Blood VENOUS BLOOD / Unknown Venipuncture / Unknown 12/14/2024 12:41 PM EDT 12/14/2024 2:31 PM EDT Katharine Whitlock MD CHEMISTRY ORDERABLES Final Resu lt [facility] [address] [place] [address] * VITAMIN D 25 HYDROXY (12/14/2024 12:41 PM EDT) Vit D 25 OH 72.0 30.0 - 150.0 ng/mL 12/14/2024 6:58 PM EDT PREFERRED [facility] Comment: Preferred: >= 30 ng/mL Insufficient: 21-29 ng/mL Deficient <= 20 ng/mL Possible Toxicity: >150 ng/mL Samples should not be taken from patients receiving therapy with high biotin doses (i.e. > 5 mg/day) until at least 8 hours following the last biotin administration. Blood VENOUS BLOOD / Unknown Venipuncture / Unknown 12/14/2024 12:41 PM EDT 12/14/2024 3:30 PM EDT Katharine Whitlock MD CHEMISTRY ORDERABLES Final Resu lt Performing Organization Address City/[facility]/ZIP Co de Phone Number [facility] [address] [facility] , [place] [address] * LIPID PANEL REFLEX (12/14/2024 12:41 PM EDT) Pathologist [facility] Cholesterol 158 <200 mg/dL 12/14/2024 6:49 PM EDT [facility]REFERRED [facility] Comment: < 200 Desirable 200 - 239 Borderline High >= 240 High Triglyceride 97 <150 mg/dL 12/14/2024 6:49 PM EDT [facility] Comment: < 150 Normal 150 - 199 Borderline High 200 - 499 High >= 500 Very High HDL 49 >=40 mg/dL 12/14/2024 6:49 PM EDT PREFERRED [facility] Comment: > 60 Optimal 40 - 60 Acceptable < 40 Low LDL Calculated 91 <100 mg/dL 12/14/2024 6:49 PM EDT [facility] Comment: < 100 Optimal 100 - 129 Near or above optimal 130 - 159 Borderline High 160 - 189 High >= 190 Very High The National Institutes of Health (NIH) equation is used for all lipid panels that report calculated LDL (LDL-C). Non-HDL-C Calculated 109 <=129 mg/dL 12/14/2024 6:49 PM EDT [employer] [facility] Comment: <130 Desirable 130-159 Above Desirable 160-189 Borderline High 190-219 High >= 220 Very High Fasting Specimen? Yes None 025 6:49 PM EDT [facility] Blood VENOUS BLOOD / Unknown Venipuncture / Unknown 12/14/2024 12:41 PM EDT 12/14/2024 2:23 PM EDT Katharine Whitlock MD CHEMISTRY ORDERABLES Final Resu lt [facility] [address] [facility] , [place] [address] * LIPOPROTEIN (A) (12/14/2024 12:41 PM EDT) Lipoprotein (a) 16 <30 mg/dL 7:13 PM EDT [facility] Blood VENOUS BLOOD / Unknown Venipuncture / Unknown 12/14/2024 12:41 PM EDT 12/14/2024 2:23 PM EDT Katharine Whitlock MD CHEMISTRY ORDERABLES Final Resu lt [facility] [address] [facility] , [place] [address] * LACTIC ACID (12/14/2024 12:41 PM EDT) Lactic Acid 0.9 0.5 - 1.9 mmol/L 12/14/2024 1:41 PM EDT [place] [facility] Blood VENOUS BLOOD / Unknown Venipuncture / Unknown 12/14/2024 12:41 PM EDT 12/14/2024 1:14 PM EDT Katharine Whitlock MD CHEMISTRY ORDERABLES Final Resu lt Performing Organization Address [facility] Co de Phone Number [facility] [address] [place] [phone] * VITAMIN B6 (PYRIDOXINE) -REF LAB (12/14/2024 12:41 PM EDT) Vit B6 37.9 20.0 - 125.0 nmol/L 12/19/2024 5:11 AM EDT [employer] Comment: INTERPRETIVE INFORMATION: Vitamin B6 (Pyridoxal 5-Phosphate) Pyridoxal 5'-phosphate measured in a specimen collected following an 8-hour or overnight fast accurately indicates vitamin B6 nutritional status. Non-fasting specimen concentration reflects recent vitamin intake. This test was developed and its performance characteristics determined by [employer]. It has not been cleared or approved by the [place] Food and Drug Administration. This test was performed in a CLIA certified laboratory and is intended for clinical purposes. Performed By: [facility] [address] [place] [address] Wine Manager: Uvaldo Youssef MD, PhD CLIA Number: [id number] Blood VENOUS BLOOD / Unknown Venipuncture / Unknown 12/14/2024 12:41 PM EDT 12/14/2024 4:56 PM EDT Katharine Whitlock MD CHEMISTRY ORDERABLES Final Resu lt Performing Organization Address [facility] Co de Phone Number [employer] [address] [place] [address] * VITAMIN B12 LEVEL (12/14/2024 12:41 PM EDT) Vitamin B12 379 232 - 1,245 pg/mL 12/14/2024 6:58 PM EDT [facility] [employer] Blood VENOUS BLOOD / Unknown Venipuncture / Unknown 12/14/2024 12:41 PM EDT 12/14/2024 3:30 PM EDT Narrative [facility] - 12/14/2024 6:58 PM EDT Ingestion of aldair doses of biotin (>5 mg/day) taken within 8 hours of drawing blood sample can interfere with this immunoassay test. us Katharine Whitlock MD CHEMISTRY ORDERABLES Final Resu lt Performing Organization Address [facility] de Phone Number [facility] [address] , [address] [phone] * URIC ACID (12/14/2024 12:41 PM EDT) Uric Acid 3.4 2.4 - 5.7 mg/dL 12/14/2024 6:49 PM EDT [facility] Blood VENOUS BLOOD / Unknown Venipuncture / Unknown 12/14/2024 12:41 PM EDT 12/14/2024 2:23 PM EDT Katharine Whitlock MD CHEMISTRY ORDERABLES Final Resu lt Performing Organization Address [facility] de Phone Number [facility] [address] , [place] [address] * (ABNORMAL) IRON+TIBC (12/14/2024 12:41 PM EDT) Iron 78 30 - 160 mcg/dL 12/14/2024 6:49 PM EDT [facility] Transferrin 298 200 - 360 mg/dL 12/14/2024 6:49 PM EDT [facility] Transferrin Saturation 19(L) 20 - 50 % 12/14/2024 6:49 PM EDT [facility] TIBC 417(H) 250 - 400 mcg/dL 12/14/2024 6:49 PM EDT [facility] Blood VENOUS BLOOD / Unknown Venipuncture / Unknown 12/14/2024 12:41 PM EDT 12/14/2024 2:23 PM EDT Katharine Whitlock MD CHEMISTRY ORDERABLES Final Resu lt [facility] [address] [facility] , [place] [address] * (ABNORMAL) COMPREHENSIVE METABOLIC PANEL (12/14/2024 12:41 PM EDT) Sodium 141 136 - 145 mmol/L 12/14/2024 6:49 PM EDT [facility] Potassium 4.1 3.5 - 5.0 mmol/L 12/14/2024 6:49 PM EDT [facility] Chloride 108(H) 98 - 107 mmol/L 12/14/2024 6:49 PM EDT [facility] Total CO2 24 22 - 29 mmol/L 12/14/2024 6:49 PM EDT [facility] Anion Gap 9 7 - 16 mmol/L 12/14/2024 6:49 PM EDT [facility] Calcium 9.6 8.8 - 10.4 mg/dL 12/14/2024 6:49 PM EDT [facility] Glucose Lvl 90 70 - 99 mg/dL 12/14/2024 6:49 PM EDT [facility] BUN 14 8 - 23 mg/dL 12/14/2024 6:49 PM EDT [facility] Creatinine 0.87 0.51 - 1.30 mg/dL 12/14/2024 6:49 PM EDT [facility] Albumin 4.1 3.2 - 4.6 gm/dL 12/14/2024 6:49 PM EDT [facility] Total Protein 7.1 6.4 - 8.3 gm/dL 12/14/2024 6:49 PM EDT [facility] Bili Total 0.3 0.2 - 1.3 mg/dL 12/14/2024 6:49 PM EDT [facility] ALT 17 <=41 U/L 12/14/2024 6:49 PM EDT [facility] AST 28 <=40 U/L 12/14/2024 6:49 PM EDT [facility] Alk Phos 36 36 - 123 U/L 12/14/2024 6:49 PM EDT [facility] eGFR (CKD-EPIcr 2020) 67 >=60 mL/min/1.7 3 m2 12/14/2024 6:49 PM EDT [facility] [employer] Comment:Estimated GFR was ca lculated using the CKD-EPIcr (2020) equation refit without race. The equation is recommended by the National Kid[employer] - [place] [employer]ph[employer] Task Force. Blood VENOUS BLOOD / Unknown Venipuncture / Unknown 12/14/2024 12:41 PM EDT 12/14/2024 2:23 PM EDT Katharine Whitlock MD CHEMISTRY ORDERABLES Final Resu lt Performing Organization Address City/[facility]/ZIP Co de Phone Number [facility] [employer] [address] , [place] [address] * C-REACTIVE PROTEIN (12/14/2024 12:41 PM EDT) CRP <3.00 <=5.00 mg/L 12/14/2024 7:13 PM EDT [facility] [employer] Blood VENOUS BLOOD / Unknown Venipuncture / Unknown 12/14/2024 12:41 PM EDT 12/14/2024 2:23 PM EDT Katharine Whitlock MD CHEMISTRY ORDERABLES Final Resu lt Performing Organization Address [facility] Co de Phone Number [facility] [employer] [facility] [address] , [place] [address] * US THYROID (12/12/2024 12:48 PM EDT) Anatomical Region Laterality Modality Neck Ultrasound 12/12/2024 12:4 8 PM EDT Impressions 12/12/2024 6:46 PM EDT No acute abnormality. - Note: Radiology results need to be interpreted within a comprehensive clinical context. If you have questions about the radiology report, please contact the office of the ordering clinician. Narrative 12/12/2024 6:46 PM EDT THYROID SONOGRAPHY, 12/12/2024 12:48 PM CLINICAL HISTORY: Thyroid nodule(s). E03.9-Hypothyroidism, [id number]. COMPARISON: None. PROCEDURE COMMENTS: Sonographic evaluation of the thyroid gland per protocol. Images and technologist notes reviewed. METHODOLOGY: Up to 4 nodules with the highest scores are reported using the Thyroid Imaging Reporting and Data System (TI-RADS). This system promotes a common lexicon for thyroid nodule description, focusing on relevant imaging characteristics to allow risk stratification of individual nodules and makes recommendations for biopsy or sonographic follow-up based on the estimated risk profile. Caveat: Deviation from the below TI-RADS management recommendations may be appropriate based on individual patient variables and/or differing society criteria. Right lobe measures: 3.1 x 1.2 x 0.9 cm. Left lobe measures: 3.0 x 0.9 x 1.0 cm. RIGHT-side lymph nodes: No suspicious lymph nodes. LEFT-side lymph nodes: No suspicious lymph nodes. No measured thyroid nodules. No significant additional finding. Procedure Note Mundo Dubon MD - 12/12/2024 THYROID SONOGRAPHY, 12/12/2024 12:48 PM CLINICAL HISTORY: Thyroid nodule(s). E03.9-Hypothyroidism, [id number]. COMPARISON: None. PROCEDURE COMMENTS: Sonographic evaluation of the thyroid gland perprotocol. Images and technologist notes reviewed. METHODOLOGY: Up to 4 nodules with the highest scores are reported usingthe Thyroid Imaging Reporting and Data System (TI-RADS). This system promotesa common lexicon for thyroid nodule description, focusing on relevantimaging characteristics to allow risk stratification of individual nodules andmakes recommendations for biopsy or sonographic follow-up based on the estimatedrisk profile. Caveat: Deviation from the below TI-RADS management recommendations maybe appropriate based on individual patient variables and/or differingsociety criteria. Right lobe measures: 3.1 x 1.2 x 0.9 cm. Left lobe measures: 3.0 x 0.9 x 1.0 cm. RIGHT-side lymph nodes: No suspicious lymph nodes. LEFT-side lymph nodes: No suspicious lymph nodes. No measured thyroid nodules. No significant additional finding. IMPRESSION: No acute abnormality. - Note: Radiology results need to be interpreted within a comprehensiveclinical context. If you have questions about the radiology report, please contactthe office of the ordering clinician. us Katharine Whitlock MD IMG US ORDERABLES Final Result documented in this encounter Visit Diagnoses Diagnosis Acquired hypothyroidism- Primary Unspecified hypothyroidism Secondary adrenal insufficiency Glucocorticoid deficiency Chronic fatigue Other malaise and fatigue Other hyperlipidemia Vitamin D deficiency Unspecified vitamin D deficiency Acquired hypothyroidism Unspecified hypothyroidism documented in this encounter Discontinued Medications Medication Sig Discontinue Reason Start Date End Da te aspirin 81 mg Oral Tablet, Delayed Release (E.C.) Take by mouth daily. Cancelled by 11/27/2024 Hyoscyamine Sulfate 0.125 mg Oral Tablet, Rapid DissolveIndications:Irri table bowel syndrome with constipation Take 0.125 mg by mouth daily as needed for Pain. Cancelled by 01/01/2022 11/27/2024 methocarbamoL (ROBAXIN) 500 mg Oral TabletIndications:Myofas cial pain Take 1 Tablet by mouth nightly as needed for Muscle spasms. Cancelled by 11/20/2021 11/27/2024 mirtazapine (REMERON) 15 mg Oral Tablet Cancelled by 11/09/2022 11/27/2024 nebivoloL (BYSTOLIC) 5 mg Oral TabletIndications:Essent ial hypertension TAKE ONE TABLET BY MOUTH DAILY Cancelled by 10/22/2022 11/27/2024 NIFEdipine (PROCARDIA XL) 30 mg Oral Tablet Extended Rel 24 hr Take 1 Tablet by mouth daily. Cancelled by 08/27/2022 11/27/2024 pantoprazole (PROTONIX) 40 mg Oral Tablet, Delayed Release (E.C.) Take 1 Tablet by mouth 2 times daily. Increase to twice a day for couple of months then return to once a day Cancelled by 08/05/2022 11/27/2024 pramipexole (MIRAPEX) 0.25 mg Oral TabletIndications:Periph eral neuropathy, idiopathic,Restless legs syndrome (RLS) TAKE ONE TABLET BY MOUTH ONCE NIGHTLY Cancelled by 10/22/2022 11/27/2024 tamsulosin (FLOMAX) 0.4 mg Oral CapsuleIndications:Incom plete bladder emptying Take 1 Capsule by mouth daily. Cancelled by 08/18/2021 11/27/2024 tiZANidine (ZANAFLEX) 4 mg Oral TabletIndications:Myofas cial pain Take 0.25-0.5 Tablets by mouth nightly as needed for Muscle spasms. Cancelled by 06/15/2022 11/27/2024 documented as of this encounter Additional Health Concerns Assessment Noted Time A fall risk assessment has been complete d for the patient 07/28/2022 2:08 PM EDT documented as of this encounter Care Teams Game Developer Relationship Specialty Start Date End Date Na Ang MD [address] [place] [id number] Consulting Physician Ophthalmology 07/10/20 documented as of this encounter
--- OUTSIDE RECORDS SUMMARY | 2024-12-12 12:22 | XMS_ITS | Encounter Summary ---
Author [place] [address] Care Team Providers Care Senior Research Engineer Name Role Phone Na Ang MD Unavailable [phone] Reason for Referral * Ultrasound (Routine) - Pending Review Specialty Diagnoses / Procedures Referred By Contac t Referred To Contact Radiology Diagnoses Acquired hypothyroidism Procedures US THYROID Katharine Whitlock MD [address] [place] [address] [phone] Phone: tel: fax: Referral ID Status Reason Start Date Expiration Date V isits Requested Visits Authorized [id number] Pending Review 11/27/2024 11/27/2025 1 1 Reason for Visit * Ultrasound (Routine) - Pending Review Specialty Diagnoses / Procedures Referred By Alpesh correia Referred To Contact Radiology Diagnoses Acquired hypothyroidism Procedures US THYROID Katharine Whitlock MD 1500 [facility] [address] [place] [phone] Phone: tel: fax: Referral ID Status Reason Start Date Expiration Date V isits Requested Visits Authorized [id number] Pending Review 11/27/2024 11/27/2025 1 1 Encounter Details Date Type Department Care Team (Latest Contact Info) Description 12/12/2024 12:22 PM EDT - 12/12/2024 11:59 PM EDT Hospital Encounter [facility] [address] [place] [address] Katharine Whitlock MD [address] [facility] [address] [place] [address] Acquired hypothyroidism Discharge Disposition: Home [...] Date Recorded PHQ-2 Total Score 0 07/28/2022 [facility] [place] of Occupat ional Health - Occupational Stress [...] (ASTELIN) 137 mcg (0.1 %) Nasl Aerosol, [place] USE 1 SPRAY(S) IN EACH NOSTRIL TWICE [...] Info) Description 01/16/2025 11:30 AM EDT Telemedicine [facility] Diabetes [place] 1500 [facility] [address] [place] [phone] Katharine Whitlock MD 1500 [facility] [address] [place] [phone] 08/15/2025 1:40 PM EDT Office Visit [facility] 1500 [facility] [address] [place] [phone] Na Ang MD 1500 [facility] [address] [place] [address] documented as of this encounter [...] 12:48 PM CLINICAL HISTORY: Thyroid nodule(s). E03.9-Hypothyroidism, [id number]. COMPARISON: None. PROCEDURE COMMENTS: Sonographic evaluation of [...] 12:48 PM CLINICAL HISTORY: Thyroid nodule(s). E03.9-Hypothyroidism, [id number]. COMPARISON: None. PROCEDURE COMMENTS: Sonographic evaluation of [...] documented as of this encounter Care Teams Senior Research Engineer Relationship Specialty Start Date End Date Na Ang MD [address] [address] Consulting Physician Ophthalmology 07/10/20 documented as of this encounter
--- OUTSIDE RECORDS SUMMARY | 2024-12-14 12:28 | XMS_ITS | Encounter Summary ---
Author Organization [place] [address] Care Team Providers Care Family Development Specialist Name Role Phone Na Ang MD Unavailable [phone] Encounter Details Date Type Department Care Team (Latest Contact Info) Description 12/14/2024 12:28 PM EDT - 12/14/2024 11:59 PM EDT Hospital Encounter [facility] [address] [place] [phone] Acquired hypothyroidism; Chronic fatigue; Other hyperlipidemia; Vitamin [...] Date Recorded PHQ-2 Total Score 0 07/28/2022 [facility] [place] of Occupat ional Health - Occupational Stress [...] (ASTELIN) 137 mcg (0.1 %) Nasl Aerosol, [place] USE 1 SPRAY(S) IN EACH NOSTRIL TWICE [...] Info) Description 01/16/2025 11:30 AM EDT Telemedicine [facility] [place] [address] [phone] Katharine Whitlock MD [address] [phone] 08/15/2025 1:40 PM EDT Office Visit [facility] Ophthalmology [facility] [address] [phone] Na Ang MD [address] [phone] documented as of this encounter Goals Goal [...] 57 >=50 mg/dL 12/14/2024 4:58 PM EDT [facility] Blood VENOUS BLOOD / Unknown Venipuncture / Unknown 12/14/2024 4:27 PM EDT 12/14/2024 4:27 PM EDT us Katharine Whitlock MD CHEMISTRY ORDERABLES Final Resu lt Performing Organization Address City/[facility] de Phone Number [facility] [address] [email or web address] [address] * GLUCOSE 2.5 HOUR (12/14/2024 3:52 PM EDT) Gluc 2.5 Hr 80 >=50 mg/dL 12/14/2024 4:36 PM EDT [facility] Blood VENOUS BLOOD / Unknown Venipuncture / Unknown 12/14/2024 3:52 PM EDT 12/14/2024 3:52 PM EDT us Katharine Whitlock MD CHEMISTRY ORDERABLES Final Resu lt Performing Organization Address [facility] de Phone Number [facility] [address] [email or web address] [address] * GLUCOSE HYPOGLYCEMIA 2 HOUR (GTT) (12/14/2024 3:16 PM EDT) Gluc 2 Hr 84 <140 mg/dL 12/14/2024 3:52 PM EDT [facility] Blood VENOUS BLOOD / Unknown Venipuncture / Unknown 12/14/2024 3:16 PM EDT 12/14/2024 3:16 PM EDT us Katharine Whitlock MD CHEMISTRY ORDERABLES Final Resu lt Performing Organization Address [facility] de Phone Number [facility] [address] [email or web address] [address] * GLUCOSE 1.5 HOUR (12/14/2024 2:42 PM EDT) Glu 1.5 Hr 87 mg/dL 12/14/2024 3:31 PM EDT [facility] Blood VENOUS BLOOD / Unknown Venipuncture / Unknown 12/14/2024 2:42 PM EDT 12/14/2024 2:42 PM EDT us Katharine Whitlock MD CHEMISTRY ORDERABLES Final Resu lt Performing Organization Address City/[facility]/ZIP Co de Phone Number [facility] [address] [place] [address] * GLUCOSE HYPOGLYCEMIA 1 HOUR (GTT) (12/14/2024 2:11 PM EDT) Gluc 1 Hr 89 - mg/dL 12/14/2024 3:02 PM EDT [facility] Blood VENOUS BLOOD / Unknown Venipuncture / Unknown 12/14/2024 2:11 PM EDT 12/14/2024 2:11 PM EDT us Katharine Whitlock MD CHEMISTRY ORDERABLES Final Resu lt Performing Organization Address [facility] de Phone Number [facility] [address] [place] [address] * GLUCOSE .5 HOUR (12/14/2024 1:36 PM EDT) Gluc .5 Hr 136 mg/dL 12/14/2024 2:12 PM EDT [facility] Blood VENOUS BLOOD / Unknown Venipuncture / Unknown 12/14/2024 1:36 PM EDT 12/14/2024 1:34 PM EDT us Katharine Whitlock MD CHEMISTRY ORDERABLES Final Resu lt Performing Organization Address City/[facility] Co de Phone Number [facility] [address] [place] [address] * GLUC HYPOGLYCEMIA FASTING (GTT) (12/14/2024 12:41 PM EDT) Pathologist [facility] Glucose Fasting 92 <100 mg/dL 12/14/2024 1:33 PM EDT [facility] Blood VENOUS BLOOD / Unknown Venipuncture / Unknown 12/14/2024 12:41 PM EDT 12/14/2024 1:07 PM EDT Katharine Whitlock MD CHEMISTRY ORDERABLES Final Resu lt [facility] [address] [place] [address] * ADRENOCORTICOTROPIC HORMONE -REF LAB (12/14/2024 12:41 PM EDT) [facility] ACTH 17.4 7.2 - 63.3 pg/mL 12/17/2024 7:33 PM EDT [facility] [employer] Comment: INTERPRETIVE INFORMATION: Adrenocorticotropic Hormone Reference interval based on samples collected between 7 a.m. and 10 a.m. No reference intervals established for p.m. collections. Pediatric reference values are the same as adults (Acta Paediatr Scand 1981;70:341-345). This assay measures intact ACTH 1-39; some types of synthetic ACTH and ACTH fragments are not detected by this assay. Performed By: [email or web address] [address] [place] [address] Systems Management Consultant: Uvaldo Youssef MD, PhD CLIA Number: [id number] Blood VENOUS BLOOD / Unknown Venipuncture / Unknown 12/14/2024 12:41 PM EDT 12/14/2024 2:19 PM EDT Katharine Whitlock MD CHEMISTRY ORDERABLES Final Resu lt [facility] [address] [place] [address] * CORTISOL (12/14/2024 12:41 PM EDT) Pathologist [facility] Cortisol 5.82 mcg/dL 12/14/2024 6:5 8 PM EDT [facility] Blood VENOUS BLOOD / Unknown Venipuncture / Unknown 12/14/2024 12:41 PM EDT 12/14/2024 3:30 PM EDT Narrative [facility] - 12/14/2024 6:58 PM EDT AM: 4.82 [...] outside of that time range. Ingestion of aladir doses of biotin (>5 mg/day) taken within 8 hours of drawing blood sample can interfere with this immunoassay test. Katharine Whitlock MD CHEMISTRY ORDERABLES Final Resu lt Performing Organization Address [facility] Co de Phone Number [facility] [address] [place] [address] , [place] [address] * (ABNORMAL) DEHYDROEPIANDROSTERONE SULFATE (12/14/2024 12:41 PM EDT) Dhea Sulfate 10.40(L) 12.00 - 154.00 mcg/dL 12/14/2024 6:58 PM EDT [facility] Blood VENOUS BLOOD / Unknown Venipuncture / Unknown 12/14/2024 12:41 PM EDT 12/14/2024 3:30 PM EDT Narrative [facility] - 12/14/2024 6:58 PM EDT Ingestion of aldair doses of biotin (>5 mg/day) taken within 8 hours of drawing blood sample can interfere with this immunoassay test. Katharine Whitlock MD CHEMISTRY ORDERABLES Final Resu Performing Organization Address City/[facility]/ZIP Co de Phone Number [facility] [address] [place] [address] , [place] [address] * LUTEINIZING HORMONE (12/14/2024 12:41 PM EDT) LH 44.10 mIU/mL 12/14/2024 6:58 PM EDT [facility] [employer] Comment: Suggested Reference Ranges (mIU/mL) Females Follicular Phase 2.4 - 12.6 Ovulation Phase 14.0 - 95.6 Luteal Phase 1.0 - 11.4 Postmenopause 7.7 - 58.5 Males 1.7 - 8.6 Blood VENOUS BLOOD / Unknown Venipuncture / Unknown 12/14/2024 12:41 PM EDT 12/14/2024 3:30 PM EDT Narrative [facility]REFERR[facility] [employer] - 12/14/2024 6:58 PM EDT Ingestion of aldair doses of biotin (>5 mg/day) taken within 8 hours of drawing blood sample can interfere with this immunoassay test. Katharine Whitlock MD CHEMISTRY ORDERABLES Final Resu lt Performing Organization Address City/State/[facility] Co de Phone Number [facility] [employer] [address] [facility] , [place] [address] * THYROGLOBULIN ANTIBODY -REF LAB (12/14/2024 12:41 PM EDT) Pathologist [facility] Thyroglob Ab <1.5 0.0 - 4.0 IU/mL 12/16/2024 6:43 AM EDT [facility] Comment: INTERPRETIVE INFORMATION: Thyroglobulin Antibody A value of 4.0 IU/mL or less indicates a negative result for thyroglobulin antibodies. The Thyroglobulin Antibody assay is being performed using the Chloe Polkton Access DxI method. Performed By: [email or web address] [address] [place] [id number] Systems Management Consultant: Uvaldo Youssef MD, PhD CLIA Number: [id number] Blood VENOUS BLOOD / Unknown Venipuncture / Unknown 12/14/2024 12:41 PM EDT 12/14/2024 2:31 PM EDT Katharine Whitlock MD IMMUNOLOGY ORDERABLES Final Res ult Performing Organization Address City/State/[facility] Co de Phone Number [facility] [address] [place] [address] * THYROID PEROXIDASE (TPO) ANTIBODY (12/14/2024 12:41 PM EDT) TPO Ab <3.00 <=5.59 IU/mL 12/14/2024 7:09 PM EDT [facility] [employer] Blood VENOUS BLOOD / Unknown Venipuncture / Unknown 12/14/2024 12:41 PM EDT 12/14/2024 2:22 PM EDT Katharine Whitlock MD IMMUNOLOGY ORDERABLES Final Res ult Performing Organization Address [facility] de Phone Number [facility] [employer] [address] , [place] [address] * T3 FREE (12/14/2024 12:41 PM EDT) Pathologist [facility] T3 Free 2.24 2.00 - 4.40 pg/mL 12/14/2024 6:49 PM EDT [facility] [employer] Blood VENOUS BLOOD / Unknown Venipuncture / Unknown 12/14/2024 12:41 PM EDT 12/14/2024 2:23 PM EDT Narrative [facility] [employer] - 12/14/2024 6:49 PM EDT Ingestion of aldair doses of biotin (>5 mg/day) taken within 8 hours of drawing blood sample can interfere with this immunoassay test. Katharine Whitlock MD CHEMISTRY ORDERABLES Final Resu lt Performing Organization Address [facility] Co de Phone Number [facility] [employer] [address] [facility] , [place] [address] * T4, FREE (THYROXINE) (12/14/2024 12:41 PM EDT) Free T4 1.41 0.80 - 1.80 ng/dL 12/14/2024 6:49 PM EDT [facility] [employer] [facility] Blood VENOUS BLOOD / Unknown Venipuncture / Unknown 12/14/2024 12:41 PM EDT 12/14/2024 2:23 PM EDT Narrative [facility] [employer] [facility] - 12/14/2024 6:49 PM EDT Ingestion of aldair doses of biotin (>5 mg/day) taken within 8 hours of drawing blood sample can interfere with this immunoassay test. Katharine Whitlock MD CHEMISTRY ORDERABLES Final Resu Performing Organization Address [facility] Co de Phone Number [facility] [employer] , [place] [id number] * THYROID STIMULATING HORMONE (12/14/2024 12:41 PM EDT) TSH 0.737 0.270 - 4.200 mcIU/mL 12/14/2024 6:49 PM EDT [facility] [employer] Blood VENOUS BLOOD / Unknown Venipuncture / Unknown 12/14/2024 12:41 PM EDT 12/14/2024 2:23 PM EDT Narrative [facility] - 12/14/2024 6:49 PM EDT Ingestion of aldair doses of biotin (>5 mg/day) taken within 8 hours of drawing blood sample can interfere with this immunoassay test. Katharine Whitlock MD CHEMISTRY ORDERABLES Final Resu Performing Organization Address [facility] de Phone Number [facility] [employer] , [place] [address] * PARATHYROID HORMONE INTACT (12/14/2024 12:41 PM EDT) PTH Intact 27.90 15.00 - 65.00 pg/mL 12/14/2024 6:35 PM EDT [facility] Blood VENOUS BLOOD / Unknown Venipuncture / Unknown 12/14/2024 12:41 PM EDT 12/14/2024 2:31 PM EDT Narrative [employer] [facility] - 12/14/2024 6:35 PM EDT Intact PTH [...] CHEMISTRY ORDERABLES Final Resu Performing Organization Address [facility] Co de Phone Number [facility] [employer] [address] , [place] [address] * VITAMIN D, 1,25-DIHYDROXY -REF LAB (12/14/2024 12:41 PM EDT) [facility] Vit D 1,25 46.9 19.9 - 79.3 pg/mL 12/16/2024 2:37 PM EDT [facility] Comment: INTERPRETIVE INFORMATION: Vitamin D, 1,25-Dihydroxy This test is primarily indicated during patient evaluation for hypercalcemia and renal failure. A normal result does not rule out Vitamin D deficiency. The recommended test for diagnosing Vitamin D deficiency is Vitamin D 25-hydroxy. Performed By: [email or web address] [address] [place] [address] Systems Management Consultant: Uvaldo Youssef MD, PhD CLIA Number: [id number] Blood VENOUS BLOOD / Unknown Venipuncture / Unknown 12/14/2024 12:41 PM EDT 12/14/2024 2:31 PM EDT Katharine Whitlock MD CHEMISTRY ORDERABLES Final Resu Performing Organization Address [facility] Co de Phone Number [facility] [address] [place] [address] * VITAMIN D 25 HYDROXY (12/14/2024 12:41 PM EDT) Vit D 25 OH 72.0 30.0 - 150.0 ng/mL 12/14/2024 6:58 PM EDT PREFERR[facility] [employer] Comment: Preferred: >= 30 ng/mL Insufficient: 21-29 [...] MD CHEMISTRY ORDERABLES Final Resu lt PREFERRED [facility] [address] [facility] , [place] [address] * LIPID PANEL REFLEX (12/14/2024 12:41 PM EDT) Pathologist [facility] Cholesterol 158 <200 mg/dL 12/14/2024 6:49 PM EDT [facility]REFERR[facility] [employer] Comment: < 200 Desirable 200 - 239 Borderline High >= 240 High Triglyceride 97 <150 mg/dL 12/14/2024 6:49 PM EDT [facility] Comment: < 150 Normal 150 - 199 Borderline High 200 - 499 High >= 500 Very High HDL 49 >=40 mg/dL 12/14/2024 6:49 PM EDT [facility] Comment: > 60 Optimal 40 - 60 Acceptable < 40 Low LDL Calculated 91 <100 mg/dL 12/14/2024 6:49 PM EDT [facility] Comment: < 100 Optimal 100 - 129 Near or above optimal 130 - 159 Borderline High 160 - 189 High >= 190 Very High The National Institutes of Health (NIH) equation is used for all lipid panels that report calculated LDL (LDL-C). Non-HDL-C Calculated 109 <=129 mg/dL 12/14/2024 6:49 PM EDT [facility]REFERR[facility] Comment: <130 Desirable 130-159 Above Desirable 160-189 Borderline High 190-219 High >= 220 Very High Fasting Specimen? Yes None 025 6:49 PM EDT [facility] [employer] [facility] Blood VENOUS BLOOD / Unknown Venipuncture / Unknown 12/14/2024 12:41 PM EDT 12/14/2024 2:23 PM EDT Katharine Whitlock MD CHEMISTRY ORDERABLES Final Resu lt [facility] [employer] [facility] [address] [facility] , [address] [place] [id number] * LIPOPROTEIN (A) (12/14/2024 12:41 PM EDT) Lipoprotein (a) 16 <30 mg/dL 7:13 PM EDT [facility] [employer] [facility] Blood VENOUS BLOOD / Unknown Venipuncture / Unknown 12/14/2024 12:41 PM EDT 12/14/2024 2:23 PM EDT Katharine Whitlock MD CHEMISTRY ORDERABLES Final Resu lt Performing Organization Address City/[facility]/ZIP Co de Phone Number [facility] [address] [facility] , [place] [address] * LACTIC ACID (12/14/2024 12:41 PM EDT) Lactic Acid 0.9 0.5 - 1.9 mmol/L 12/14/2024 1:41 PM EDT [facility] Blood VENOUS BLOOD / Unknown Venipuncture / Unknown 12/14/2024 12:41 PM EDT 12/14/2024 1:14 PM EDT Katharine Whitlock MD CHEMISTRY ORDERABLES Final Resu lt [facility] [address] [place] [address] * VITAMIN B6 (PYRIDOXINE) -REF LAB (12/14/2024 12:41 PM EDT) Pathologist [facility] Vit B6 37.9 20.0 - 125.0 nmol/L 12/19/2024 5:11 AM EDT [facility] [employer] Comment: INTERPRETIVE INFORMATION: Vitamin B6 (Pyridoxal 5-Phosphate) Pyridoxal 5'-phosphate measured in a specimen collected following an 8-hour or overnight fast accurately indicates vitamin B6 nutritional status. Non-fasting specimen concentration reflects recent vitamin intake. This test was developed and its performance characteristics determined by [email or web address]. It has not been cleared or approved by the [place] Food and Drug Administration. This test was performed in a CLIA certified laboratory and is intended for clinical purposes. Performed By: [email or web address] [address] [place] [address] Systems Management Consultant: Uvaldo Youssef MD, PhD CLIA Number: [id number] Blood VENOUS BLOOD / Unknown Venipuncture / Unknown 12/14/2024 12:41 PM EDT 12/14/2024 4:56 PM EDT Katharine Whitlock MD CHEMISTRY ORDERABLES Final Resu Performing Organization Address City/[facility]/ZIP Co de Phone Number [facility] [address] [place], [place] [id number] * VITAMIN B12 LEVEL (12/14/2024 12:41 PM EDT) [facility] Vitamin B12 379 232 - 1,245 pg/mL 12/14/2024 6:58 PM EDT [facility]REF[facility] [employer] Blood VENOUS BLOOD / Unknown Venipuncture / Unknown 12/14/2024 12:41 PM EDT 12/14/2024 3:30 PM EDT Narrative [facility], [facility] - 12/14/2024 6:58 PM EDT Ingestion of aldair doses of biotin (>5 mg/day) taken within 8 hours of drawing blood sample can interfere with this immunoassay test. us Katharine Whitlock MD CHEMISTRY ORDERABLES Final Resu lt [facility], [facility] [address] [facility] , [place] [address] * URIC ACID (12/14/2024 12:41 PM EDT) Pathologist [facility] Uric Acid 3.4 2.4 - 5.7 mg/dL 12/14/2024 6:49 PM EDT [facility], [facility] Blood VENOUS BLOOD / Unknown Venipuncture / Unknown 12/14/2024 12:41 PM EDT 12/14/2024 2:23 PM EDT Katharine Whitlock MD CHEMISTRY ORDERABLES Final Resu Performing Organization Address [facility] Co de Phone Number [facility], [facility] [address] [facility] , [place] [address] * (ABNORMAL) IRON+TIBC (12/14/2024 12:41 PM EDT) Pathologist [facility] Iron 78 30 - 160 mcg/dL 12/14/2024 6:49 PM EDT [facility] [employer] 298 200 - 360 mg/dL 12/14/2024 6:49 PM EDT [facility] [employer] Saturation 19(L) 20 - 50 % 12/14/2024 6:49 PM EDT [facility] TIBC 417(H) 250 - 400 mcg/dL 12/14/2024 6:49 PM EDT [facility], [facility] Blood VENOUS BLOOD / Unknown Venipuncture / Unknown 12/14/2024 12:41 PM EDT 12/14/2024 2:23 PM EDT Katharine Whitlock MD CHEMISTRY ORDERABLES Final Resu Performing Organization Address City/[facility]/ZIP Co de Phone Number [facility], [facility] [address] [facility] , [place] [address] * (ABNORMAL) COMPREHENSIVE METABOLIC PANEL [...] recommended by the National Kidney Foundation - [place] [employer] of Nephrology Task Force. Blood VENOUS BLOOD / Unknown Venipuncture / Unknown 12/14/2024 12:41 PM EDT 12/14/2024 2:23 PM EDT us Katharine Whitlock MD CHEMISTRY ORDERABLES Final Resu lt Performing Organization Address City/[facility]/ZIP Co de Phone Number [facility] [employer] [facility] [address] [facility] , [place] [address] * C-REACTIVE PROTEIN (12/14/2024 12:41 PM EDT) [facility] CRP <3.00 <=5.00 mg/L 12/14/2024 7:13 PM EDT [facility] [employer] Blood VENOUS BLOOD / Unknown Venipuncture / Unknown 12/14/2024 12:41 PM EDT 12/14/2024 2:23 PM EDT Result [facility] Katharine Whitlock MD CHEMISTRY ORDERABLES Final Resu lt Performing Organization Address City/[facility] Co de Phone Number [facility] [employer] [address] [facility] , [place] [address] documented in this encounter Visit Diagnoses Diagnosis Acquired hypothyroidism Unspecified hypothyroidism Chronic fatigue Other malaise and fatigue Other hyperlipidemia Vitamin D deficiency Unspecified vitamin D deficiency Secondary adrenal insufficiency Glucocorticoid deficiency documented in this encounter Additional Health Concerns Assessment Noted Time A fall risk assessment has been complete d for the patient 07/28/2022 2:08 PM EDT documented as of this encounter Care Teams Family Development Specialist Relationship Specialty Start Date End Date Na Ang MD [address] [phone] Consulting Physician Ophthalmology 07/10/20 documented as of this encounter
--- OUTSIDE RECORDS SUMMARY | 2024-12-27 21:43 | XMS_ITS | Encounter Summary ---
Author Organization [facility] Address [facility] [place] [id number] Care Team Providers Care Head Of Merchandise Buying Name Role Phone SachinPatrice cassidyjessica Kaufman APRN Primary Care Provider [phone] Stefan Lennon MD Unavailable [phone] Vikas Green MD Unavailable [phone] Reason for Visit * Reason Comments Multiple Complaints * Auth/Cert (Routine) Specialty Diagnoses / Procedures Referred By Alpesh correia Referred To Contact Diagnoses pain [facility] [address] [place] [address] Phone: tel: [facility] Emergency Department [address] [place] [address] Phone: tel: Referral ID Status Reason Start Date Expiration Date Visits Re quested Visits Authorized [id number] 1 1 Encounter Details Date Type Department Care Team (Late st Contact Info) Description 12/27/2024 9:43 PM EDT - 12/28/2024 1:27 PM EDT Hospital Encounter [facility] Emergency [facility] [address] [place] [address] Maxime Gooden MD [address] [place] [phone] Numbness and tingling of both legs (Primary [...] up to 10 days. 40 tablet 12/28/2024 documented as of this encounter Miscellaneous Notes * Jayna Chavez RN - 12/28/2024 11:25 AM EDT Images from the original note were not included. [id number] Relieving Back Pain Back pain is a [...] use ice several times a day. Medicines Gutx-ofx-vhbnjxg pain relievers include acetaminophen and anti-inflammatory medicines. [...] heat. Last Reviewed Date: 2024 00:00:00 ?? [id number] [employer]. All rights reserved. This information is not intended as a substitute for professional medical care. Always follow your healthcare professional's instructions. * [facility] Jayna Abad RN - 12/28/2024 11:25 AM EDT Images from the original note were not included. [id number] Self-Care for Low Back Pain Most people [...] Never sleep on a heating pad. ? Uqhi-etx-krrlfdd medicine can help control pain and swelling. [...] develop Last Reviewed Date: 2023 00:00:00 ?? [id number] [employer]. All rights reserved. This information is not intended as a substitute for professional medical care. Always follow your healthcare professional's instructions. * Discharge Summary - Christian Barrett MD - 12/28/2024 11:18 AM EDT Hospitalization Admit Date/Time: 12/27/2024 9:43 PM Admitting Attending: jennifer Discharge Date: 12/28/24 Discharge Attending Physician: Maxime Gooden MD PCP name and Address: Leroy Gordon, GLOBAL CATEGORY MANAGER [address] [place] [address] / [place] [address] Referring provider name and address: No referring [...] 01/01/2025 10:00 AM Ashely Guy APRN [facility] 07/05/2025 11:40 AM Devin Monahan MD [facility] [place] Test Results Pending At Discharge Pertinent Physical [...] in preparation for this discharge. Cosigned by Maxime Gooden MD at 12/29/2024 6:40 AM EDT Associated attestation - Maxime Gooden MD - 12/29/2024 6:40 AM EDT I saw and evaluated the patient with the resident/fellow. I discussed the case with the resident/fellow and agree with the findings and plan as documented. I spent 35 minutes of patient care and instruction time in preparation for this discharge. * H&P - Epi Ceballos MD - 12/28/2024 1:48 AM EDT [...] is prolonged Medically Ready for Discharge:Anticipated Today Epi Ceballos MD Internal Medicine, PGY-3 [1] No [...] (Synthroid, Levoxyl) 75 MCG tablet Cosigned by Maxime Gooden MD at 12/28/2024 11:49 AM EDT Associated attestation - Maxime Gooden MD - 12/28/2024 11:49 AM EDT [...] Promote Comfort Flowsheets (Taken 12/27/20242199 by Marcus Edwards) Pain [...] tolerance activity encouraged education provided * ED Triage Notes - Dex Ceja [...] Care Team (Late st Contact Info) Description 01/01/2025 10:00 AM EDT Office Visit [facility] [address] [place] [address] Ashely Guy APRN [address] [place] [address] 07/05/2025 11:40 AM EST Office Visit [facility] [address] [place] [address] Devin Monahan MD [address] [place] [phone] documented as of this encounter Procedures Procedure [...] Yessenia Barbosa MD on 12/28/2024 10:03 AM Maxime Gooden MD IMG MRI PROCEDURES Cindy l Result * Urinalysis Microscopic Examination (12/27/2024 11:02 PM EDT) Urine Urine specimen obtained by clean catch procedure / Unknown Non-blood Collection / Unknown 12/27/2024 11:02 PM EDT 12/27/2024 11:16 PM EDT Maxime Mae MD LAB URINE ORDERABLES Final Result Performing Organization Address City/[facility]/ZIP Co de Phone Number [facility] [address] [place] [address] * Urine Kapoor Panel (12/27/2024 11:02 PM EDT) Extra Reflex urine culture not indicated 12/28/2024 1:04 AM EDT [facility] Urine Urine specimen obtained by clean catch procedure / Unknown Non-blood Collection / Unknown 12/27/2024 11:02 PM EDT 12/27/2024 11:28 PM EDT Maxime Mae MD LAB URINE ORDERABLES Final Result Performing Organization Address City/[facility]/ZIP Co de Phone Number [facility] [address] [place] [address] * (ABNORMAL) Urinalysis with reflex microscopic (Culture NOT Included) (12/27/2024 11:02 PM EDT) Color, Urine Yellow LAB URINALYSIS - AUTOMATED METHOD 12/27/2024 11:53 PM EDT [facility] Clarity, Urine Clear LAB URINALYSIS - AUTOMATED METHOD 12/27/2024 11:53 PM EDT [facility] Spec [place], Urine 1.021 1.005 - 1.030 LAB URINALYSIS - AUTOMATED METHOD 12/27/2024 11:53 PM EDT [facility] pH, Urine 6.5 5.0 - 8.0 LAB URINALYSIS - AUTOMATED METHOD 12/27/2024 11:53 PM EDT [facility] Protein, Urine Negative Negative mg/dL LAB URINALYSIS - AUTOMATED METHOD 12/27/2024 11:53 PM EDT [facility] Glucose, Urine Negative Negative mg/dL LAB URINALYSIS - AUTOMATED METHOD 12/27/2024 11:53 PM EDT [facility] Ketones, Urine Negative Negative mg/dL LAB URINALYSIS - AUTOMATED METHOD 12/27/2024 11:53 PM EDT [facility] Blood, Urine Small(A) Negative LAB URINALYSIS - AUTOMATED METHOD 12/27/2024 11:53 PM EDT [facility] Bilirubin, Urine Negative Negative LAB URINALYSIS - AUTOMATED METHOD 12/27/2024 11:53 PM EDT [facility] Urobilinogen, Urine 0.2 0.2 to 1.0 mg/dL LAB URINALYSIS - AUTOMATED METHOD 12/27/2024 11:53 PM EDT [facility] Leukocytes, Urine Negative Negative LAB URINALYSIS - AUTOMATED METHOD 12/27/2024 11:53 PM EDT [facility] Nitrite, Urine Negative Negative LAB URINALYSIS - AUTOMATED METHOD 12/27/2024 11:53 PM EDT [facility] RBC, Urine <1 0 to 3 /HPF LAB URINALYSIS - AUTOMATED METHOD 12/27/2024 11:53 PM EDT [facility] Comment:This result was prev iously suppressed from the chart. WBC, Urine 0 - 5 0 to 5 /HPF LAB URINALYSIS - AUTOMATED METHOD 12/27/2024 11:53 PM EDT [facility] Comment:This result was prev iously suppressed from the chart. Squamous Epithelial Cells 0 - 2 0 to 5 /HPF LAB URINALYSIS - AUTOMATED METHOD 12/27/2024 11:53 PM EDT [facility] Comment:This result was prev iously suppressed from the chart. Hyaline Casts 0 - 2 0 to 5 /LPF LAB URINALYSIS - AUTOMATED METHOD 12/27/2024 11:53 PM EDT [facility] Comment:This result was prev iously suppressed from the chart. Bacteria, Urine Negative Negative LAB URINALYSIS - AUTOMATED METHOD 12/27/2024 11:53 PM EDT [facility] Comment:This result was prev iously suppressed from the chart. Urine Urine specimen obtained by clean catch procedure / Unknown Non-blood Collection / Unknown 12/27/2024 11:02 PM EDT 12/27/2024 11:16 PM EDT us Maxime Mae MD LAB URINE ORDERABLES Final Result Performing Organization Address City/State/[facility] Co de Phone Number [facility] [address] [place] [address] * CT Angio Abdomen Pelvis (12/27/2024 10:18 [...] Total DLP (Dose-Length Product): 2981.63 mGy.cm (accession [id number]), 2981.63 mGy.cm (accession [id number]), 2981.63 mGy.cm (accession [id number]). Please note: The reported value represents the [...] Total DLP (Dose-Length Product): 2981.63 mGy.cm (accession [id number]),2981.63 mGy.cm (accession [id number]), 2981.63 mGy.cm (accession [id number]).Please note: The reported value represents the total [...] Ryder MD on 12/27/2024 11:39 PM us Maxime Mae MD IMG CT PROCEDURES Final Re sult [...] Total DLP (Dose-Length Product): 2981.63 mGy.cm (accession [id number]), 2981.63 mGy.cm (accession [id number]), 2981.63 mGy.cm (accession [id number]). Please note: The reported value represents the [...] Total DLP (Dose-Length Product): 2981.63 mGy.cm (accession [id number]),2981.63 mGy.cm (accession [id number]), 2981.63 mGy.cm (accession [id number]).Please note: The reported value represents the total [...] Ryder MD on 12/27/2024 11:39 PM us Maxime Mae MD IMG CT PROCEDURES Final Re sult [...] Total DLP (Dose-Length Product): 2981.63 mGy.cm (accession [id number]), 2981.63 mGy.cm (accession [id number]), 2981.63 mGy.cm (accession [id number]). Please note: The reported value represents the [...] Total DLP (Dose-Length Product): 2981.63 mGy.cm (accession [id number]),2981.63 mGy.cm (accession [id number]), 2981.63 mGy.cm (accession [id number]).Please note: The reported value represents the total [...] Maddy Ryder MD on 12/27/2024 11:39 PM Maxime Mae MD IMG CT PROCEDURES Final Re sult * Phosphorus (12/27/2024 9:37 PM EDT) Phosphorus, Plasma 3.4 2.5 - 4.5 mg/dL 12/27/2024 10:03 PM EDT [facility] Blood Venous blood specimen / Unknown Venipuncture / Unknown 12/27/2024 9:37 PM EDT 12/27/2024 9:40 PM EDT aMxime Mae MD LAB BLOOD ORDERABLES Final Result [facility] [address] [place] [address] * Magnesium (12/27/2024 9:37 PM EDT) Magnesium, Plasma 2.1 1.9 - 2.4 mg/dL 12/27/2024 10:03 PM EDT [facility] Blood Venous blood specimen / Unknown Venipuncture / Unknown 12/27/2024 9:37 PM EDT 12/27/2024 9:40 PM EDT Maxiem Mae MD LAB BLOOD ORDERABLES Final Result Performing Organization Address City/[facility]/ZIP Co de Phone Number [facility] [address] [place] [address] * BMP (12/27/2024 9:37 PM EDT) Glucose, Plasma 97 74 - 99 mg/dL 12/27/2024 10:03 PM EDT [facility] BUN, Plasma 21 8 - 23 mg/dL 12/27/2024 10:03 PM EDT [facility] Creatinine, Plasma 0.97 0.60 - 1.10 mg/dL 12/27/2024 10:03 PM EDT [facility] BUN/Creatinine Ratio 22 12/27/2024 10:03 PM EDT [facility] Sodium, Plasma 139 136 - 145 mmol/L 12/27/2024 10:03 PM EDT [facility] Potassium, Plasma 3.8 3.6 - 4.9 mmol/L 12/27/2024 10:03 PM EDT [facility] Chloride, Plasma 105 97 - 107 mmol/L 12/27/2024 10:03 PM EDT [facility] CO2, Plasma 23 22 - 29 mmol/L 12/27/2024 10:03 PM EDT [facility] Anion Gap 11 6 - 16 mmol/L 12/27/2024 10:03 PM EDT [facility] Total Calcium, Plasma 9.8 8.9 - 10.2 mg/dL 12/27/2024 10:03 PM EDT [facility] eGFRcr 59.2 mL/min/1.7 3m*2 12/27/2024 10:03 PM EDT [facility] Comment:Reported eGFRcr in m L/min/1.73m2 is based the CKD-EPI 2020 equation that does not use a race coefficient. Blood Venous blood specimen / Unknown Venipuncture / Unknown 12/27/2024 9:37 PM EDT 12/27/2024 9:40 PM EDT us Maxime Mae MD LAB BLOOD ORDERABLES Final Result [facility] [address] [place] [address] * CBC w/diff (12/27/2024 9:37 PM EDT) WBC Count 5.39 3.70 - 10.30 10*3/uL LAB HEMATOLOGY METHOD 12/27/2024 9:42 PM EDT [facility] RBC Count 4.23 3.90 - 5.20 10*6/uL LAB HEMATOLOGY METHOD 12/27/2024 9:42 PM EDT [facility] HGB 12.7 11.2 - 15.7 g/dL LAB HEMATOLOGY METHOD 12/27/2024 9:42 PM EDT [facility] HCT 36.9 34.0 - 45.0 % LAB HEMATOLOGY METHOD 12/27/2024 9:42 PM EDT [facility] Platelet Count 313 155 - 369 10*3/uL LAB HEMATOLOGY METHOD 12/27/2024 9:42 PM EDT [facility] MCV 87 79 - 98 fL LAB HEMATOLOGY METHOD 12/27/2024 9:42 PM EDT [facility] MCH 30.0 26.0 - 32.0 pg LAB HEMATOLOGY METHOD 12/27/2024 9:42 PM EDT [facility] MCHC 34.4 30.7 - 35.5 g/dL LAB HEMATOLOGY METHOD 12/27/2024 9:42 PM EDT [facility] RDW 13.4 11.5 - 14.5 % LAB HEMATOLOGY METHOD 12/27/2024 9:42 PM EDT [facility] MPV 9.4 8.8 - 12.5 fL LAB HEMATOLOGY METHOD 12/27/2024 9:42 PM EDT [facility] nRBC 0.0 <=0.0 per 100 WBCs LAB HEMATOLOGY METHOD 12/27/2024 9:42 PM EDT [facility] Differential Type Automated LAB HEMATOLOGY METHOD 12/27/2024 9:42 PM EDT [facility] Neutrophils % 49 % LAB HEMATOLOGY METHOD 12/27/2024 9:42 PM EDT [facility] Lymphocytes % 36 % LAB HEMATOLOGY METHOD 12/27/2024 9:42 PM EDT [facility] Monocytes % 10 % LAB HEMATOLOGY METHOD 12/27/2024 9:42 PM EDT [facility] Eosinophils % 4 % LAB HEMATOLOGY METHOD 12/27/2024 9:42 PM EDT [facility] Basophils % 1 % LAB HEMATOLOGY METHOD 12/27/2024 9:42 PM EDT [facility] Immature Granulocytes % 0 % LAB HEMATOLOGY METHOD 12/27/2024 9:42 PM EDT [facility] Neutrophils Absolute 2.65 1.60 - 6.10 10*3/uL LAB HEMATOLOGY METHOD 12/27/2024 9:42 PM EDT [facility] Lymphocytes Absolute 1.94 1.20 - 3.90 10*3/uL LAB HEMATOLOGY METHOD 12/27/2024 9:42 PM EDT [facility] Monocytes Absolute 0.51 0.30 - 0.90 10*3/uL LAB HEMATOLOGY METHOD 12/27/2024 9:42 PM EDT [facility] Eosinophils Absolute 0.21 0.00 - 0.50 10*3/uL LAB HEMATOLOGY METHOD 12/27/2024 9:42 PM EDT [facility] Basophils Absolute 0.06 0.00 - 0.10 10*3/uL LAB HEMATOLOGY METHOD 12/27/2024 9:42 PM EDT [facility] Immature Granulocytes Absolute 0.02 0.00 - 0.06 10*3/uL LAB HEMATOLOGY METHOD 12/27/2024 9:42 PM EDT [facility] Blood Venous blood specimen / Unknown Venipuncture / Unknown 12/27/2024 9:37 PM EDT 12/27/2024 9:40 PM EDT Narrative [facility] - 12/27/2024 9:42 PM EDT Therapeutic decision making should be based on absolute values, rather than percentages. us Maxime Mae MD LAB BLOOD ORDERABLES Final Result [facility] [address] [place] [address] documented in this encounter Visit Diagnoses Diagnosis Numbness and tingling of both legs- Primary Disturbance of skin sensation Lumbar back pain Lumbago documented in this encounter Administered Medications Inactive [...] Tue12/27/24 at 2208, Routine, Imaging Protocol Orders Given [...] 1 dose, On Tue12/27/24 at 2325, STAT Given 12/28/2024 12:11 AM [...] morning, First dose (after last modification) on 12/29/25 at 0600, Until Discontinued, Routine gadobutrol (Gadavist) [...] 12/27/24 at 2208, Routine, Imaging Protocol Orders 220 (Given - Provider: Dana Naylor) levothyroxine (Synthroid, Levoxyl) tablet 75 mcg 75 mcg, Oral, Every morning, First dose on Tue12/28/24 at 0600, Until Discontinued, Routine 0500 (Given - Provid er: Lyly Bill RN) methocarbamol (Robaxin) tablet 1,000 mg (COMPLETED) 1,000 mg, Oral, Once, 1 dose, On Cher 12/27/24 at 2325, STAT 0011 (Given - Provid er: Marcus Edwadrs) PRN Medication Order 12/26/2024 12/27/2024 12/28/2024 LORazepam [...] documented as of this encounter Care Teams Head Of Merchandise Buying Relationship Specialty Start Date End Date Leroy Gordon APRN [address] [place] [address] PCP - General 10/07/22 Stefan Lennon MD [address] [address] Surgeon Neurosurgery 03/01/23 Vikas Green MD [address] [address] Surgeon Neurosurgery 03/30/23 documented as of this encounter
--- NOTE | 2024-12-31 03:10 | HMH.EDGENADL ---
Discharge Plan Disposition Patient Disposition: Home, Self-Care Prescriptions Prescriptions: New ondansetron HCl 4 mg tablet 4 mg PO Q8H PRN (Reason: nausea and vomiting) 5 Days Qty: 30 0RF No Action fluticasone propionate [Flonase Allergy Relief] 50 mcg/actuation spray,suspension 1 spray intranasal DAILY PRN Rx Instructions: administer into each nostril baclofen 10 mg tablet 10 mg PO HS polyethylene glycol 3350 [Miralax] 17 gram/dose powder 17 g PO DAILY Citrucel (sucrose) Powder 1 tbsp PO DAILY oxybutynin chloride 10 mg tablet extended release 24hr 10 mg PO DAILY Qty: 90 3RF estradiol [Estrace] 0.01 % (0.1 mg/gram) cream 1 appful vaginal DAILY Qty: 42.5 2RF Rx Instructions: Finger technique dialy x 14 and then 3 x week thereafter coenzyme Q10 [Co Q-10] 200 mg capsule 200 mg PO DAILY cetirizine [24Hour Allergy] 10 mg tablet 10 mg PO DAILY PRN levothyroxine 88 mcg tablet PO pantoprazole 40 mg tablet,delayed release (DR/EC) PO fenofibrate 160 mg tablet 160 mg PO DAILY amlodipine [Norvasc] 10 mg tablet 10 mg PO DAILY Qty: 30 2RF candesartan 32 mg tablet 32 mg PO DAILY Qty: 30 2RF carvedilol [Coreg] 6.25 mg tablet 6.25 mg PO BID Qty: 180 2RF Rx Instructions: must administer with a meal/food ondansetron 4 mg tablet,disintegrating 4 mg PO Q8H PRN (Reason: nausea and vomiting) 4 Days Qty: 12 0RF Referrals Follow up/Referrals: Leroy Gordon APRN [Primary Care Provider, Medical] - See instructions Activity Restrictions/Add. Instructions Additional Instructions/Restrictions: Please take Zofran as needed for nausea vomiting. Please follow-up with your primary care provider. Please return to the emergency department if you develop any new or worsening symptoms or become concerned for your health. Clinical Impressions Clinical Impression: Nausea vomiting and diarrhea, Abdominal pain Instructions Patient Instructions: DI for Acute Abdominal Pain Print Language Print Language: Kyrgyz Discharge ED Provider: Mic Khan Adult [facility] General Chief complaint: Abdominal Pain Stated complaint: abd pain, nausea, diarrhea Time Seen by Provider: 12/31/24 03:10 History of Present Illness HPI narrative: 79-year-old female with history of hypertension, coronary artery disease, GERD, chronic severe back pain presents for nausea vomiting diarrhea and abdominal pain. She reports been ongoing for several days. She was seen at the [facility] a few days ago and evaluated for cauda equina syndrome, this was negative on MRI reportedly. Patient reports that she is more shaky than normal. Related Data Home Medications ?Medication ?Instructions ?Recorded ?Confirmed coenzyme Q10 200 mg capsule (Co 200 mg PO DAILY 03/15/24 12/24/24 Q-10) fluticasone propionate 50 1 spray intranasal DAILY PRN 06/26/24 12/24/24 mcg/actuation nasal spray,suspension (Flonase Allergy Relief) cetirizine 10 mg tablet (24Hour 10 mg PO DAILY PRN 09/13/24 12/24/24 Allergy) fenofibrate 160 mg tablet 160 mg PO DAILY 10/05/24 12/24/24 pantoprazole 40 mg tablet,delayed mg PO 10/05/24 12/24/24 release levothyroxine 88 mcg tablet mcg PO 10/09/24 12/24/24 baclofen 10 mg tablet 10 mg PO HS 12/11/24 12/24/24 methylcellulose (with sugar) oral 1 tbsp PO DAILY 12/11/24 12/24/24 powder (Citrucel (sucrose) oral powder) polyethylene glycol 3350 17 17 g PO DAILY 12/11/24 12/24/24 gram/dose oral powder (Miralax) Previous Rx's ?Medication ?Instructions ?Recorded amlodipine 10 mg tablet (Norvasc) 10 mg PO DAILY #30 tabs 10/05/24 candesartan 32 mg tablet 32 mg PO DAILY #30 tabs 10/05/24 carvedilol 6.25 mg tablet (Coreg) 6.25 mg PO BID #180 tabs 10/05/24 ondansetron 4 mg disintegrating 4 mg PO Q8H PRN nausea and 11/07/24 tablet vomiting 4 days #12 tabs estradiol 0.01% (0.1 mg/gram) 1 appful vaginal DAILY #42.5 grams 12/24/24 vaginal cream (Estrace) oxybutynin chloride 10 mg 10 mg PO DAILY #90 tabs 08/25/25 tablet,extended release 24 hr ondansetron HCl 4 mg tablet 4 mg PO Q8H PRN nausea and 12/31/24 vomiting 5 days #30 tabs Allergies Allergy/AdvReac Type Severity Reaction Status Date / Time ciprofloxacin (From Cipro) Allergy Unknown Unknown Verified 12/24/24 09:04 allergy reaction codeine Allergy Unknown Unknown Verified 12/24/24 09:04 allergy reaction lisinopril Allergy Unknown Unknown Verified 12/24/24 09:04 allergy reaction Sulfa (Sulfonamide Allergy Unknown Unknown Verified 12/24/24 09:04 Antibiotics) allergy reaction hydralazine Allergy Verified 12/24/24 09:04 naproxen (From Naprosyn) Allergy Verified 12/24/24 09:04 Opioids - Morphine Analogues Allergy Unknown Verified 12/24/24 09:04 allergy reaction prednisone Allergy Verified 12/24/24 09:04 evolocumab (From Repatha AdvReac Severe Difficulty Verified 12/24/24 09:04 SureClick) Swallowing amlodipine AdvReac Mild edema Verified 12/24/24 09:04 PFS PFS Disclaimer: The information contained in this section may have been updated after the patient was seen, as this information can be updated by other users. Medical History Other specified hypothyroidism Mixed hyperlipidemia Atypical angina Chronic otitis externa of left ear Eustachian tube dysfunction This is more of a chronic left greater than right ear issue. I do feel it likely relates to allergy seasonal variation. GERD (gastroesophageal reflux disease) Hypothyroidism CAD (coronary artery disease) Osteoporosis HTN (hypertension) Surgical History Hx of tonsillectomy Hx of cholecystectomy History of back surgery Hx of hysterectomy Family History Other Family history of cancer Family history of heart disease Social History Smoking Status: Never smoker alcohol intake: never substance use type: denies use current occupational status: retired Travel in the last 8 weeks?: None Have you lived/traveled outside US in past 30 days?: No Contact w/someone who lives/traveled outside US past 30 days?: No Exposure to someone with infectious disease in past 14 days?: No Do you have a fever (greater than 100.4 F or 38 C)?: No Have you tested positive for COVID-19?: No Exposed to someone with COVID-19 in past 14 days?: No Do you have a sore throat?: No Do you have a cough?: No Do you have any weakness?: Yes Do you have any diarrhea?: Yes Are you experiencing any unusual bleeding?: No Do you have any muscle aches/pain?: No Do you have any abdominal pain?: Yes Are you experiencing loss of taste or smell?: No Other Medical History Have you received the Flu Vaccine for this season: No Have you received the Pneumonia Vaccine: Yes ROS Obtained: Yes All systems reviewed & no additional complaints except as documented Physical Exam General General appearance: alert and in no apparent distress Head Head exam: atraumatic and normocephalic Eye Eye exam: Present normal appearance, PERRL and EOMI ENT ENT exam: Present normal oropharynx and normal external ear exam Neck Neck exam: Present normal inspection and full ROM Chest Chest inspection: Present normal inspection and symmetric chest wall rise; Absent tenderness Respiratory Respiratory exam: Present normal lung sounds bilaterally; Absent respiratory distress Cardiovascular Cardiovascular exam: Present regular rate and normal rhythm Abdominal Exam Abdominal exam: Present soft and distention; Absent tenderness or guarding Extremities Exam Extremities exam: Present normal inspection; Absent edema or joint swelling Back Exam Back exam: Present normal inspection and tenderness Neurological Exam Neurological exam: Present alert and oriented X3; Absent motor sensory deficit Psychiatric Psychiatric exam: Present normal affect and normal mood Skin Skin exam: Present warm, dry and normal color Lymphatic Lymphatic Findings: no adenopathy Medical Decision Making Medical Records Medical records reviewed: Yes I reviewed the patient's medical records. Screening: Per USPSTF and CDC recommendations, given the prevalence of disease in our region, it is our hospital?s policy to screen for HIV and viral Hepatitis for all patients aged 18 and over and those with ongoing risk factors. Ernesto Inquiry Pt receiving controlled substance: No Ernesto was queried for this patient: No Vital Signs: 12/31/24 03:24 12/31/24 04:52 12/31/24 04:55 Temperature 97.9 F 98.7 F Temperature Source Oral Oral Pulse Rate 87 87 Pulse Rate [Right] 93 H Respiratory Rate 13 21 21 Blood Pressure 167/77 H 167/77 H Blood Pressure [Right Arm] 151/103 H Blood Pressure Mean [Right Arm] 119 02 Sat by Pulse Oximetry 98 94 L Oxygen Delivery Method Room Air Room Air Lab Data Lab results reviewed: Yes I reviewed the patient's lab results. Lab Results 12/31/24 03:17: POC Glucose 113 H 12/31/24 03:30: WBC 6.0, RBC 4.50, Hgb 13.2, Hct 38.3, MCV 85.1, MCH 29.3, MCHC 34.5, RDW 12.7, Plt Count 313, MPV 9.5, Neut % (Auto) 67.5, Lymph % (Auto) 22.1, [place] % (Auto) 7.3, Eos % (Auto) 2.0, Baso % (Auto) 0.8, Neut # (Auto) 4.1, Lymph # (Auto) 1.3, [place] # (Auto) 0.4, Eos # (Auto) 0.1, Baso # (Auto) 0.1, VBG pH 7.41, VBG pCO2 37.4, VBG pO2 47.4 H, VBG HCO3 23.2, VBG Total CO2 24.3, VBG O2 Saturation 83.1 H, VBG Base Excess -1.5, VBG Lactic Acid 1.1, Sodium 135 L, Potassium 4.1, Chloride 105, Carbon Dioxide 22, Anion Gap 12.1, BUN 17, Creatinine 0.80, Estimated Creat Clear 50, Estimated GFR 69, Est GFR ( Amer) 84, Glucose 120 H, Calcium 10.0, Phosphorus 3.2, Magnesium 1.7, Total Bilirubin 0.7, AST 41 H, ALT 25, Alkaline Phosphatase 40, Total Protein 7.8, Albumin 4.7, Globulin 3.1, Albumin/Globulin Ratio 1.5 12/31/24 04:25: Urine Color Yellow, Urine Appearance Clear, Urine pH 6.0, Ur Specific Rice 1.010, Urine Protein Negative, Urine Glucose (UA) Negative, Urine Ketones Negative, Urine Blood 2+ A, Urine Nitrate Negative, Urine Bilirubin Negative, Urine Urobilinogen 0.2, Ur Leukocyte Esterase Negative, Urine RBC 3-5, Urine WBC Occasional, Ur Squamous Epith Cells 3-5, Urine Bacteria None 12/31/24 03:30 12/31/24 03:30 Orders (Tests/Meds): ED MEDICATIONS Discontinued Medications Generic Name Dose Route Start Last Admin Trade Name Kuldip PRN Reason Stop Dose Admin Sodium Chloride 1,000 mls @ 999 mls/hr 12/31/24 03:30 12/31/24 04:42 Sod Chlor 0.9% 1000ml Bag IV 12/31/24 04:30 Infused .Q1H1M IDRIS Infusion Ondansetron HCl 4 mg 12/31/24 03:23 12/31/24 03:41 Ondansetron 4mg/2ml Vial IV 12/31/24 03:24 4 mg ONCE ONE Administration Promethazine HCl 12.5 mg 12/31/24 04:12 12/31/24 04:21 Promethazine Hcl 25mg/Ml 1ml Vial IV 12/31/24 04:13 12.5 mg ONCE ONE Administration Sodium Chloride 25 ml 12/31/24 04:12 12/31/24 04:21 Sodium Chloride 0.9% 25ml Bag IV 12/31/24 04:13 25 ml ONCE ONE Administration ORDERS Category Date Time Status CBC w/Auto Diff [Complete Blood Count Auto Diff] Stat Lab 12/31/24 03:30 Completed CMP [Comprehensive Metabolic Panel] Stat Lab 12/31/24 03:30 Completed Diarrhea 23 Panel, PCR Stat Lab 12/31/24 03:24 Ordered Magnesium Stat Lab 12/31/24 03:30 Completed POC Glucose,Bedside Routine Lab 12/31/24 03:17 Completed Phosphorous Stat Lab 12/31/24 03:30 Completed UA [Urinalysis and Microscopic] Stat Lab 12/31/24 04:25 Completed VBG [Venous Blood Gas] Stat RT 12/31/24 03:30 Completed Medical Decision Narrative: 79-year-old female with history of of GERD, coronary artery disease, hypertension, chronic back pain presents for abdominal pain, nausea vomiting and diarrhea.. History was obtained via interactive discussion with patient, family, chart review. On arrival, patient is [afebrile, hemodynamically stable, satting appropriately, alert, oriented x4, GCS 15], moving all extremities spontaneously. Full physical exam performed and significant for mild abdominal distention and tenderness, no focal peritonitis. Differential includes but is not limited to gastroenteritis, colitis, mesenteric ischemia, diverticulitis, pancreatitis, UTI, C. difficile. Patient was given Zofran, Phenergan, 1 L IV fluid bolus for symptomatic management and correction of underlying abnormalities. Patient declined any pain medications.. Workup initiated including CBC CMP UA VBG stool testing lipase CT abdomen and pelvis IV contrast. Patient refused the CT scan, stating she had a CT scan done a few days ago and she thinks it would have showed up on the scan at that time. I explained to her that given she is having new/worsening symptoms there is concern that she could have developed something more serious in the meantime such as perforated diverticulitis, severe colitis, etc. I explained to her the risks and benefits and she reported understanding and declined CT scan. On re-evaluation, patient reports some symptomatic improvement Laboratory workup independently interpreted by me and significant for no significant leukocytosis, normal electrolytes, normal renal function normal lactate, urinalysis does not appear consistent with infection.. Given patient history, exam and workup, patient's presentation most likely represents gastroenteritis, however, I cannot rule out more serious pathology at this time without imaging. I again explained this to the patient and she again declined CT imaging. She is discharged in stable condition with outpatient order form for stool sample since she was unable to provide a stool sample in the ED. I also prescribed course of Zofran for nausea. Return precautions were given. Procedures Risk/Benefits of Procedure(s) Were Explained: Yes Critical Care Critical Care Time Critical Care Time: No
--- OUTSIDE RECORDS SUMMARY | 2024-12-31 03:18 | XMS_ITS | Clinical Summary ---
Author Organization [facility] Address [address] [place] [address] Phone Care Team Providers Care Lead Man Over All Dies In Pattern Shop Name Role Phone Unavailable Unavailable Conditions or Problems No information available. Medications No information available. Medications Administered No information available. Allergies, Adverse Reactions, Alerts No information available. Results No information available. Plan of Care No information available. Procedures No information available. Vital Signs No information available. Immunizations No information available. Advance Directives No information available.
--- OUTSIDE RECORDS SUMMARY | 2024-12-31 03:19 | XMS_ITS | Encounter Summary ---
Author Organization [facility] Address [address], [address] [place] [address] Care Team Providers Care Dredge Mate Name Role Phone Elvira Velarde MD Primary Care Provider Jossue mejía Reason for Visit * Reason Comments Medication Refill Encounter Details Date Type Department Care Team (Late st Contact Info) Description 10/18/2017 Refill [facility] Endocrinology & Diabetes [address] [facility] [address] [address] [place] [address] Sid Olmedo MD [address] [place], [place] [id number] Medication Refill Social History Tobacco Use Types [...] on filedocumented in this encounter Care Teams Dredge Mate Relationship Specialty Start Date End Date Elvira Velarde MD PCP - General Family Medicine 09/01/16 documented as of this encounter
--- OUTSIDE RECORDS SUMMARY | 2024-12-31 03:19 | XMS_ITS | Clinical Summary ---
Author Organization [facility] Address [address] [place] [phone] Care Team Providers Care Security Door Installer Name Role Phone Janet Vogt MD Primary Care Provider [phone] Allergies Active Allergy Reactions Criticality Noted Date [...] 10:27 AM 07/20/2022 7:21 PM Care Teams Security Door Installer Relationship Specialty Start Date End Date Janet Vogt MD PCP - General Family Medicine 07/19/22
--- OUTSIDE RECORDS SUMMARY | 2024-12-31 03:19 | XMS_ITS | Encounter Summary ---
Author Organization [facility] [place] [address] Care Team Providers Care Laboratory Geneticist Name Role Phone Na Ang MD Unavailable Reason for Visit * Reason Onset Date Comments Results 12/12/2024 Schedule Appointment 12/12/2024 Encounter Details Date Type Department Care Team (Latest Contact Info) Description 12/12/2024 Results Follow-Up [facility] Diabetes [place] [address] [facility] [address] [place] [phone] Katharine Whitlock MD [address] [facility] [address] [place] [phone] THYROID, C-REACTIVE PROTEIN, COMPREHENSIVE METABOLIC PANEL, [...] Date Recorded PHQ-2 Total Score 0 07/28/2022 [facility] - Occupational Stress Questionnaire Answer Date [...] Results Component Value Date GLUCHALFHOUR 136 12/14/2024 [id number] 89 12/14/2024 GLUCONEHALFH 87 12/14/2024 [id number] 84 12/14/2024 [id number] 80 12/14/2024 [id number] 57 12/14/2024 Nursing will contact you with [...] Patient notified of results and recommendations via ParaEnginet message. documented in this encounter Plan of Treatment Upcoming Encounters Date Type Department Care Team (Late st Contact Info) Description 01/16/2025 11:30 AM EDT Telemedicine [facility] [address] [facility] [address] [place] [phone] Katharine Whitlock MD [address] [employer] [address] [facility] [address] [place] [phone] 08/15/2025 1:40 PM EDT Office Visit [facility] [address] [employer] [address] [place] [phone] Na Ang MD [address] [facility] [address] [place] [phone] documented as of this encounter Goals Goal [...] documented as of this encounter Care Teams Laboratory Geneticist Relationship Specialty Start Date End Date Na Ang MD [address] [phone] Consulting Physician Ophthalmology 07/10/20 documented as of this encounter
--- OUTSIDE RECORDS SUMMARY | 2024-12-31 03:19 | XMS_ITS | Clinical Summary ---
Author Organization [facility] Address [address] [place] [address] Care Team Providers Care Rubber And Plastics Worker Name Role Phone Elvira Velarde MD [...] 1 capsule by mouth daily 8 Active [place]-3 Fatty Acids (FISH OIL OMEGA-3 PO) Take [...] bone density assessment. Study was performed on Phorest 5. Bone Density: Region BMD T-score Z-score [...] Relevant to Health Maintenance Insurance Care Teams Rubber And Plastics Worker Relationship Specialty Start Date End Date Elvira Velarde MD PCP - General Family Medicine 09/01/16
--- OUTSIDE RECORDS SUMMARY | 2024-12-31 03:19 | XMS_ITS | Encounter Summary ---
Author Organization [facility] Address [address] [place] [address] Care Team Providers Care Retail Sales Associate Seasonal Name Role Phone Nonstaff, Referring Primary Care Provider [phone] Prashant Barnes MD Unavailable [phone] Encounter Details Date Type Department Care Team (Late st Contact Info) Description 12/04/2015 Clinical Update [facility] Physicians - Urology, ScSiddharth Derwood [address] [place] [address] [place] [phone] Hyacinth Rios NP [address] [place] [address] [place] [phone] Social History Tobacco Use Types Packs/Day Years [...] on filedocumented in this encounter Care Teams Retail Sales Associate Seasonal Relationship Specialty [place] [address] [place] [address] PCP - General Family Medicine 03/20/13 Prashant Barnes MD [address] [facility] [place] [address] Urology 05/09/22 documented as of this encounter
--- OUTSIDE RECORDS SUMMARY | 2024-12-31 03:19 | XMS_ITS | Clinical Summary ---
Author Organization [facility] Address [address] [place] [phone] Care Team Providers Care Staple Processing Machine Operator Name Role Phone Nonstaff, Referring MD Primary Care Provider [phone] Prashant Barnes MD Unavailable [phone] Allergies Active Allergy Reactions Criticality Noted Date [...] Active fluticasone (FLONASE) 50 mcg/actuation nasal spray Ro[place] 1 [place] into nose daily. Active omeg3/dha/epa/f antonia oil/L.casei [...] 1 Cancer Brother 2 Heart Problems Father [place] Hypertension Father Stroke Mother Cancer Sister Hypertension [...] Advance Directives For more information, please contact: [phone] * No Code Status (Latest Code Status on File) Date Activated Date Inactivated Comments 07/03/2015 11:28 AM Pt [facility] * Full Code Date Activated Date Inactivated Comments 02/08/2008 2:38 AM 02/08/2008 4:55 PM Care Teams Staple Processing Machine Operator Relationship Specialty Start Date End Date Nonstaff, MD Deshawn [address] [place], [place] [phone] (Work) PCP - General Family Medicine 03/20/13 Prashant Barnes MD [address] [facility] [place] [address] Urology 05/09/22
--- OUTSIDE RECORDS SUMMARY | 2024-12-31 03:19 | XMS_ITS | Referral Summary ---
Author Organization [facility] Address [address] [place] [phone] Care Team Providers Care Cop Breaker Name Role Phone Janet Vogt MD Primary Care Provider [phone] Allergies Active Allergy Reactions Criticality Noted Date [...] Treatment Not on file Insurance Care Teams Cop Breaker Relationship Specialty Start Date End Date Janet Vogt MD PCP - General Family Medicine 07/19/22
--- OUTSIDE RECORDS SUMMARY | 2024-12-31 03:19 | XMS_ITS | Encounter Summary ---
Author Organization [facility] Address [address] [place] [address] Care Team Providers Care Storeroom Keeper Name Role Phone Elvira Velarde MD Primary Care Provider Jossue mejía Reason for Visit * Reason Comments Medication Refill Encounter Details Date Type Department Care Team (Late st Contact Info) Description 01/28/2015 Refill [facility] [address] [place] [address] [address] [place] [address] Heydi Stoll PA-C [address] [place] [address] [address] [place] [address] Medication Refill Social History Tobacco Use Types [...] on filedocumented in this encounter Care Teams Storeroom Keeper Relationship Specialty Start Date End Date Elvira Velarde MD PCP - General Family Medicine 09/01/16 documented as of this encounter
--- OUTSIDE RECORDS SUMMARY | 2024-12-31 03:19 | XMS_ITS | Continuity of Care Document ---
Author Organization [facility] Address [facility] [place] [address] Phone Care Team Providers Care Antique Dealer Name Role Phone Na Ang MD Unavailable [phone] Encounters Date Type Department Care Team Description 5 12:28 PM EDT - 5 11:59 PM EDT Hospital Encounter COV [facility] [address] [place] [phone] Acquired hypothyroidism; Chronic fatigue; Other hyperlipidemia; Vitamin D deficiency; Secondary adrenal insufficiency Discharge Disposition: Home or Self Care 5 Results Follow-Up [facility] [address] [phone] Katharine Whitlock MD THYROID, C-REACTIVE PROTEIN, COMPREHENSIVE METABOLIC PANEL, Additional followed-up results: 26 5 12:22 PM EDT - 5 11:59 PM EDT Hospital Encounter [facility] [address] [place] [address] Katharine Whitlock MD Acquired hypothyroidism Discharge Disposition: Home or Self Care 5 Results Follow-Up [facility] [address] [place] [address] Katharine Whitlock MD CALCITRIOL- COMPUNET, T3 FREE, VITAMIN B6 (PYRIDOXINE) -REF LAB, Additional followed-up results: 18 5 12:30 PM EDT Office Visit [facility] [address] [place] [address] Katharine Whitlock MD Acquired hypothyroidism (Primary Dx); Secondary adrenal insufficiency; Chronic fatigue; Other hyperlipidemia; Vitamin D deficiency 5 1:00 PM EDT Office Visit [facility] [address] [place] [address] Na Ang MD Pseudophakia (Primary Dx); Bilateral ocular hypertension; Optic neuropathy, left 5 Telephone [facility] [address] [place] [address] Na Ang MD Other (Confirmation Call.) 4 1:20 PM EDT Office Visit [facility] [address] [place] [address] Na Ang MD Keratitis sicca, bilateral (HCC) (Primary Dx) 4 11:00 AM EDT Office Visit [facility] [address] [employer] [place] [address] Na Ang MD Optic neuropathy, left (Primary Dx); Bilateral ocular hypertension 3 Patient Outreach [facility] [address] [place] [address] Marlyn Mendez, Bus Driver Supervisor Medication Management (Statin Non-adherence) 3 Travel 3 1:50 PM EDT Office Visit [facility] [address] [employer] [address] [address] Na Ang MD Keratitis sicca, bilateral (HCC) (Primary Dx); Pseudophakia; Bilateral ocular hypertension; Optic neuropathy, left 3 Patient Outreach [facility] [address] [place] [address] Janet Vogt MD Central Order Completion Outreach (DEXA) 3 Telephone [facility] [address] [facility] [address] [place] [address] Na Ang MD Other (Appt Reschedule) 3 Telephone [facility] [address] [facility] [address] [place] [address] Na Ang MD Other (Appt Reschedule) 3 Patient Outreach [facility] [address] [place] [address] Lon Victoria CPhT Medication Management (Clinical Manager Of Information: resource teacher [phone] ) 3 Patient Outreach [facility] [address] [place] [address] Lon Victoria CPhT Medication Management (Clinical Manager Of Information: resource teacher [phone] ) 3 Patient Outreach [facility] [address] [place] [address] Lon Victoria, Anjum Medication Management (Clinical Spray Technician: resource teacher [phone]) 3 Refill [facility] [address] [place] [address] Gerardo Purcell MD Medication Refill 3 Refill SEP [facility] [address] [place] [address] Janet Vogt MD Medication Refill 3 Refill [facility] [place] [address] [place] [address] Gerardo Purcell MD Medication Refill 3 Orders Only [facility] [address] [place] [address] Chen Cano, MARISSA Hospital discharge follow-up (Primary Dx) 3 Telephone SEP H&V [address] [address] Kendy Biggs DO Hypertension 3 2:45 PM EDT Office Visit [facility] [address] [address] Oumar Alves MD Spinal stenosis of lumbar region without neurogenic claudication (Primary Dx); DDD (degenerative disc disease), lumbar; Lumbar pain 3 Telephone SEP [facility] [address] [address] Janet Vogt MD Appointment Needed (ED fu ) 3 Telephone SEP [facility] [address] [address] Janet Vogt MD Symptom Call 3 1:45 PM EDT Ancillary Procedure [facility] [address] [place] [address] Oumar Alves MD Cervical pain 3 1:30 PM EDT [facility] [address] [place] [address] Oumar Alves MD Spinal stenosis of lumbar region without neurogenic claudication (Primary Dx); Cervical pain; Bilateral leg pain; DDD (degenerative disc disease), lumbar; Trochanteric bursitis of right hip 3 2:45 PM EDT Office Visit [facility]P H&V [address] [address] Kendy Biggs DO Nonobstructive atherosclerosis of coronary artery (Primary Dx); Essential hypertension; Heart murmur; Dyslipidemia; Uncontrolled hypertension 3 Travel 3 8:41 AM EDT - 3 11:59 PM EDT Hospital Encounter [facility] [place] [address] Gerardo Purcell MD Gastroesophageal reflux disease with esophagitis without hemorrhage Discharge Disposition: Home or Self Care 3 Refill [facility] [place] [address] [place] [address] Kendy Biggs, Medication Refill 3 1:45 PM EDT Office Visit [facility] [address] [place] [address] Pebbles Will APRN Primary osteoarthritis of right knee (Primary Dx); Lumbar radiculopathy; Neuropathic pain; Myofascial pain; Sacroiliitis; Pain in both lower extremities; Chronic pain of right thumb; Spondylosis of lumbosacral region without myelopathy or radiculopathy; DDD (degenerative disc disease), lumbar 3 Telephone [facility]P [facility] [address] [place], [place] [phone] Gerardo Purcell MD Other; Medication Management 3 Telephone [facility] Urology NPTFTT [address] [place] [address] Sandra Murrell PA-C Results 3 2:00 PM EDT Office Visit [facility] [address] [place] [address] Janet Vogt MD Essential hypertension (Primary Dx); Peripheral neuropathy, idiopathic; Restless legs syndrome (RLS) 3 3:45 PM EDT Office Visit [facility] [address] [place] [address] Pebbles Will APRN Primary osteoarthritis of right knee (Primary Dx) 3 10:40 AM EDT Office Visit [facility] NPTFTT [address] [place] [address] Sandra Murrell PA-C Group beta Strep positive (Primary Dx); Urinary retention; Cauda equina syndrome with neurogenic bladder (HCC) 3 Telephone [facility] NPT[facility] [address] [place] [phone] Sandra Murrell PA-C Patient Question 3 Telephone [facility] [place] [address] [place] [address] Kendy Biggs DO Patient Question (Patient was just released from hospital and has some questions for Dr. Biggs's MA about her blood pressure. Please call her back) 3 1:20 PM EDT Office Visit [facility] [address] [facility] [place] [address] Gerardo Purcell MD Acute gastritis without hemorrhage, unspecified gastritis type (Primary Dx) 3 Travel 3 3:00 PM EDT - 3 6:16 PM EDT Emergency [facility] [address] [place] [id number] Sameer Gan MD Dysuria (Primary Dx); Suprapubic pressure Discharge Disposition: Home or Self Care 3 2:30 PM EDT Office Visit [facility] [address] [place] [address] Oumar Alves MD Spinal stenosis of lumbar region without neurogenic claudication (Primary Dx) 3 1:20 PM EDT Office Visit [facility] [address] [place] [address] Gerardo Purcell MD Cauda equina syndrome with neurogenic bladder (HCC) (Primary Dx); Irritable bowel syndrome with constipation; Gastroesophageal reflux disease without esophagitis 3 1:15 PM EST Ancillary Procedure [facility] [address] [place] [address] Oumar Alves MD Lumbar pain 3 1:00 PM EST Office Visit [facility] [address] [place] [phone] Oumar Alves MD Spinal stenosis of lumbar region without neurogenic claudication (Primary Dx); DDD (degenerative disc disease), lumbar; Lumbar pain 3 Travel 3 1:10 PM EST - 3 11:59 PM EST Hospital Encounter [facility] [place] [address] Peripheral neuropathy, idiopathic (Primary Dx); Nail disease; Macronychia; Encounter for laboratory testing for COVID-19 virus; Essential hypertension; Other hyperlipidemia; Acquired hypothyroidism; Pre-op testing Discharge Disposition: Home or Self Care 3 Travel 3 2:05 PM EST - 3 11:59 PM EST Hospital Encounter [facility] [place] [address] Macronychia (Primary Dx); Nail disease Discharge Disposition: Home or Self Care 3 Telephone [facility] [address] [address] Mikey Christian MD Prior Authorization (Right Knee Inj) 3 2:15 PM EST Office Visit [facility] [address] [place] [phone] Mikey Christian MD Lumbar radiculopathy; Neuropathic pain; Myofascial pain 3 Refill SEP H&V NPTFTT [address] [place] [address] Kendy Biggs DO Medication Refill 3 1:10 PM EST Office Visit [facility] [address] [facility] [address] [place] [address] Na Ang MD Optic neuropathy, left (Primary Dx); Bilateral ocular hypertension 3 Telephone [facility] [address] [place] [address] Gerardo Purcell MD Medication Management (FOR HEMORRHOIDS) 3 Travel 3 1:31 PM EST - 3 11:59 PM EST Hospital Encounter [facility] [address] [place] [address] Janet Vogt MD Abdominal pain, unspecified abdominal location Discharge Disposition: Home or Self Care 3 Orders Only [facility] NPTF[facility] [address] [place] [phone] Sandra Murrell PA-C Cauda equina syndrome with neurogenic bladder (HCC) (Primary Dx) 3 3:20 PM EST Office Visit [facility] NPTFTT [address] [place] [address] Sandra Murrell PA-C Microhematuria (Primary Dx) 2 11:00 AM EST Office Visit [facility] [address] [place] [address] Janet Vogt MD Influenza A (Primary Dx); Abdominal pain, unspecified abdominal location; Menopause; Essential hypertension 2 Patient Outreach SEP [address] [place], [place] [phone] Anh Brown, KIRSTEN, COS CM - Referral Line 2 5:51 AM EST - 2 8:24 AM EST Emergency [facility] [address] [facility] [place], [place] [phone] Jonas Mayorga MD Patel, Dhruv P, MD Influenza A (Primary Dx); Hematuria, unspecified type Discharge Disposition: Home or Self Care 2 10:15 AM EST Office Visit [facility] [address] [place] [address] Mikey Christian MD Myofascial pain; Lumbar radiculopathy; Neuropathic pain 2 Refill [facility]P H&V NPTFTT [address] [place] [address] Kendy Biggs, DO Medication Refill 2 Refill [facility] [address] [place] [address] Gerardo Purcell MD Medication Refill 2 9:15 AM EDT Office Visit [facility] [address] [place] [address] Mikey Christian MD Lumbar radiculopathy (Primary Dx); Myofascial pain; Neuropathic pain 2 Travel 2 7:36 AM EDT - 2 11:59 PM EDT Hospital Encounter [facility] [address] [place] [address] Emg, Fredo Ftt Lumbosacral radiculopathy (Primary Dx); Pain in both lower extremities; Carpal tunnel syndrome of left wrist Discharge Disposition: Home or Self Care 2 2:20 PM EDT Ancillary Procedure [address] [phone] Denae Reis MD Cough, unspecified type Discharge Disposition: Home or Self Care 2 1:30 PM EDT Office Visit [address] [address] Denae Reis MD Cough, unspecified type (Primary Dx); Bronchitis 2 2:15 PM EDT Office Visit [facility] [address] [place] [address] Mikey Christian MD Pain in both lower extremities (Primary Dx); Acute bilateral low back pain without sciatica; Sacroiliitis; Myofascial pain 2 10:20 AM EDT Office Visit [facility] [address] [facility], [place] [phone] Gerardo Purcell MD Irritable bowel syndrome with constipation (Primary Dx); Gastroesophageal reflux disease without esophagitis; Cauda equina syndrome with neurogenic bladder (HCC); Nausea; External hemorrhoids 2 2:00 PM EDT Office Visit SEP H&V [address] [phone] Kalyan, Kendy, DO Nonobstructive atherosclerosis of coronary artery (Primary Dx); Essential hypertension; Heart murmur; Dyslipidemia 2 Refill [facility] [address] [place] [address] Janet Vogt MD Medication Refill 2 2:50 PM EDT Office Visit [address] [place] [address] Mikey Christian MD Sacroiliitis 2 1:20 PM EDT Office Visit [facility] Urology NPTFTT [address] [place] [address] Sandra Murrell PA-C Incomplete bladder emptying (Primary Dx); Urinary retention; Cauda equina syndrome with neurogenic bladder (HCC); Slow transit constipation 2 Telephone SEP H&V NPTFTT [address] [place] [address] Kalyan, Kendy, DO Medication Refill 2 Telephone SEP H&V [address] [phone] Kalyan, Kendy, DO Medication Refill 2 Patient Outreach [facility] [address] [place] [address] Janet Vogt MD Central Patient Navigator Outreach (AWV) 2 Telephone [place] [address] [place] [address] Mikey Christian MD Prior Authorization (SI joint injection) 2 2:15 PM EDT Office Visit [facility] SP[facility] [address] [place] [address] Mikey Christian MD Myofascial pain (Primary Dx); Acute bilateral low back pain without sciatica; Sacroiliitis 2 Orders Only [facility] [place] [address] [facility] [address] [place] [address] Mikey Christian MD Myofascial pain (Primary Dx) 2 9:30 AM EDT Office Visit [facility] SP[facility] [address] [facility] [place] [address] Mikey Christian MD Chronic pain of right thumb 2 Refill SEP Gastro CV [address] [facility] [place] [address] Gerardo Purcell MD Medication Refill 2 Telephone [facility] [address]TR[address], 3RD [place] [address] Gerardo Purcell MD Other 2 9:40 AM EDT Office Visit [facility] Urology NPTFTT [address] [place] [address] Sandra Murrell PA-C Urinary retention (Primary Dx); Slow transit constipation; Hemorrhoids, unspecified hemorrhoid type; Incomplete bladder emptying 2 11:20 AM EDT Office Visit [facility] Urology NPTFTT [address] [place] [address] Sandra Murrell PA-C Feeling of incomplete bladder emptying (Primary Dx); Urinary retention; Slow transit constipation 2 Patient Outreach [place] [address] [place] [address] Anh Brown, BS, COS ED Follow-Up Call 2 2:29 AM EDT - 2 6:04 AM EDT Emergency [facility] [place] [address] Arthur Rodriguez MD Acute on chronic urinary retention (Primary Dx); Hemorrhoids, unspecified hemorrhoid type Discharge Disposition: Home or Self Care 2 Nurse Triage [place] [address] [place] [address] Kat Vizcaino RN 2 Travel 2 9:15 PM EDT - 2 10:11 PM EDT Emergency [facility] [place], [place] [id number] Arthur Pruett MD Fecal impaction in rectum (HCC) (Primary Dx); External hemorrhoids without complication Discharge Disposition: Home or Self Care 2 Nurse Triage [address] [place] [address] Ne Betancourt RN 2 Refill SEP H&V NPTFTT [address] [place] [address] Kendy Biggs, DO Medication Refill 2 1:00 PM EDT Office Visit [facility] Ophthalmology [address] [place] [address] Na Ang MD Keratitis sicca, bilateral (HCC) (Primary Dx); Optic neuropathy, left; Bilateral ocular hypertension; Nuclear sclerotic cataract of right eye [address] [place] [address] Mikey Christian MD Prior Authorization (Right Thumb Injection) 2 10:30 AM EDT Office Visit [facility] SP[facility] [address] [place] [address] Mikey Christian MD Acute bilateral low back pain without sciatica 2 Refill SEP H&V [address] [address] Arun Biggsi, DO Medication Refill 2 11:20 AM EDT Office Visit [facility] Urology NPTFTT [address] [place] [address] Sandra Murrell PA-C Feeling of incomplete bladder emptying (Primary Dx); Incomplete bladder emptying; Cauda equina syndrome with neurogenic bladder (HCC); Slow transit constipation; Stranguria 2 2:45 PM EDT Office Visit [place] [address] Kendy Biggs DO Coronary artery disease involving chevak coronary artery of chevak heart without angina pectoris (Primary Dx); Essential hypertension; Nonobstructive atherosclerosis of coronary artery; Dyslipidemia 2 3:30 PM EDT Office Visit [facility] SP[facility] [address] [place] [address] Mikey Christian MD Sacroiliitis (Primary Dx); Acute bilateral low back pain without sciatica; Spondylosis of lumbosacral region without myelopathy or radiculopathy; DDD (degenerative disc disease), lumbar 2 Refill [facility] [address] [place] [address] Mikey Christian MD Medication Refill 2 [place] [address] Kendy Biggs DO Medication Refill 2 Telephone [place] [address] Kendy Biggs DO Medication Question 2 [place] [address] Oumar Alves MD 2 11:00 AM EST Office Visit [place] [id number] Oumar Alves MD Spinal stenosis of lumbar region, unspecified whether neurogenic claudication present (Primary Dx) 2 Telephone [place] [address] Kendy Biggs DO Other [address] [address] Oumar Alves MD Other 2 Telephone [facility] [address] [place] [address] Mikey Christian MD Prior Authorization (Right GTB) 2 Telephone [facility] [address] [place] [address] Mikey Christian MD Other (Questions Regarding Procedures.) 2 Orders Only [facility] [address] [place] [address] Mikey Christian MD DDD (degenerative disc disease), lumbar (Primary Dx) 2 1:20 PM EST Office Visit [facility] SP[facility] [address] [place] [address] Mikey Christian MD Acute bilateral low back pain without sciatica 2 Travel 2 12:07 PM EST - 2 11:59 PM EST Hospital Encounter [facility] [address] [place] [address] Mikey Christian MD Acute bilateral low back pain without sciatica Discharge Disposition: Home or Self Care 2 Travel 2 11:00 AM EST Office Visit [facility] [address] [place] [address] Mikey Christian MD Acute bilateral low back pain without sciatica (Primary Dx); DDD (degenerative disc disease), lumbar 1 Patient Outreach [place] [address] [address] [place] [address] Valeria Muñoz BOX ATTACHER Follow-Up Call 1 Travel 1 8:52 PM EST - 1 11:06 PM EST Emergency [facility] [address] [place] [address] Rubi Martinez MD Acute exacerbation of chronic low back pain (Primary Dx) Discharge Disposition: Home or Self Care 1 6:48 PM EST - 1 7:04 PM EST Emergency [facility] [place] [address] Discharge Disposition: Left Without Being Seen 1 Telephone [facility] [place] [address] Kendy Biggs, Medication Reaction 1 Travel 1 11:00 AM EST Office Visit [facility] [address] [address] Janet Vogt MD Upper respiratory tract infection, unspecified type (Primary Dx); Insomnia, persistent 1 10:00 AM EST Office Visit [facility] Urology NPTFTT [address] [place] [address] Sandra Murrell PA-C Incomplete bladder emptying (Primary Dx); Dysuria; UTI symptoms 1 Travel 1 11:30 AM EST Office Visit [facility] [address] [address] Janet Vogt MD Muscle strain of chest wall, initial encounter (Primary Dx); Insomnia, persistent 1 Telephone 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, unspecified lagophthalmos type; Pseudophakia of both eyes; Optic neuropathy, left 1 Refill [facility] H[facility] [address] [place] [address] [place] [address] Kalyan, Kendy, Medication Refill 1 Telephone SEP H&V [address] [address] Kalyan, Kendy, Labs Only 1 Refill [facility]P H&V [address] [address] Kalyan, Kami, DO Medication Refill 1 Telephone SEP H&V [address] [address] Kendy Biggs, Hypertension; Dizziness 1 Travel 1 2:40 PM EDT Office Visit [facility] Gastro CV [address] [facility] [address] [place] [address] Gerardo Purcell MD Irritable bowel syndrome with constipation (Primary Dx); Gastroesophageal reflux disease, unspecified whether esophagitis present; Chronic cholecystitis 1 Travel 1 9:45 AM EDT Office Visit [facility] H&V [address] [address] Kendy Biggs, Uncontrolled hypertension (Primary Dx); Dyslipidemia; Coronary artery disease involving chevak coronary artery of chevak heart without angina pectoris; Nonobstructive atherosclerosis of coronary artery 1 Nurse Triage [facility] [address] [place] [address] Lelo Dawkins, MARISSA 1 Telephone SEP H&V [address] [address] Kalyan Kendy, Medication Problem 1 Orders Only [facility] [address] [place] [address] Yara Anders, CHRIS 1 Telephone SEP Gen Surg [facility] [address] [facility] [address] [place] [address] Geoff Gan MD Other 1 2:00 PM EDT Office Visit [facility] Care [address] [place] [address] Page Chatterjee, RN Encounter for counseling for care management of patient with chronic conditions and complex health needs using nurse-based model (Primary Dx) 1 1:00 PM EDT Office Visit [facility] [address] [address] Janet Vogt MD Insomnia, persistent (Primary Dx); Irritable bowel syndrome with constipation 1 Travel 1 2:45 PM EDT Office Visit [facility]P Gen Surg [facility] [address] [place] [address] [address] [place] [address] Geoff Gan MD S/P laparoscopic cholecystectomy (Primary Dx); Anxiety 1 Telephone [facility] H[facility] [place] [facility] [address] [place] [address] Kalyan, Kendy, DO Hypotension; Fatigue 1 Patient Outreach SEP [facility] [address] [place] [address] Gracie Barba BA, COS ED Follow-Up Call 1 Travel 1 11:34 AM EDT - 1 4:47 PM EDT Emergency [facility] [place] [address] Tiana Orosco MD Spellman, Paul E, MD Non-intractable vomiting with nausea, unspecified vomiting type (Primary Dx) Discharge Disposition: Home or Self Care 1 Telephone [facility] [address] [address] Janet Vogt MD Symptom Call (after surgery ) 1 Telephone SEP Vascular Surg Edg [address] [facility] [address] [place] [address] Rj Liliya CariMARVIN Symptom Call (nausea) 1 Travel 1 1:30 PM EDT - 1 3:55 PM EDT Surgery EDG [facility] [place] [address] Geoff Gan MD DAVINCI ROBOTIC CHOLECYSTECTOMY 1 1:38 PM EDT Anesthesia Event EDG [facility] [place] [address] Denae Galarza MD Merkle Serey, Jennifer L, NP 1 12:04 PM EDT - 1 5:36 PM EDT Hospital Encounter EDG SAME DAY SURGERY [facility] [place] [address] Geoff Gan MD Calculus of gallbladder without cholecystitis without obstruction; Calculus of gallbladder without cholecystitis without obstruction Discharge Disposition: Home or Self Care 1 Travel 1 1:00 PM EDT - 1 11:59 PM EDT Hospital Encounter [facility] [address] [place] [place] [address] Covid19, Edg Lab [facility] Pre-op testing; Encounter for laboratory testing for COVID-19 virus Discharge Disposition: Home or Self Care 1 Orders Only SEP Gen Surg Edg 254 20 [facility] [address] [place] [address] Geoff Gan MD Calculus of gallbladder without cholecystitis without obstruction (Primary Dx) 1 Travel 1 10:30 AM EDT Office Visit [facility] [address] [place] [address] Janet Vogt MD Calculus of gallbladder without cholecystitis without obstruction (Primary Dx); Irritable bowel syndrome with constipation 1 Patient Outreach SEP [facility] [address] [place] [address] Nelson Velázquez LPN ED Follow-Up Call 1 Telephone SEP Gen Surg Edg 254 20 [facility] [address] [place] [address] Geoff Gan MD Procedure 1 Travel 1 1:08 PM EDT - 1 4:01 PM EDT Emergency [facility] [place] [address] Sameer Coffey MD Constipation, unspecified constipation type (Primary Dx) Discharge Disposition: Home or Self Care 1 Nurse Triage [address] [place] [address] Margarita Coffey RN 1 Travel 1 10:45 AM EDT Office Visit SEP Gen Surg Edg 254 20 [facility] [address] [place] [address] Geoff Gan MD Calculus of gallbladder without cholecystitis without obstruction (Primary Dx) 1 Patient Outreach [address] [place] [address] Nelson Velázquez LPN ED Follow-Up Call 1 2:19 PM EDT - 1 5:00 PM EDT Emergency [facility] [place] [place] [address] Dre Foley MD Calculus of gallbladder without cholecystitis without obstruction (Primary Dx); Nausea vomiting and diarrhea Discharge Disposition: Home or Self Care 1 Travel 1 3:15 PM EDT Office Visit [facility] [address] [address] Janet Vogt MD Diarrhea, unspecified type (Primary Dx) 1 Telephone [facility] [address] [address] Janet Vogt MD Appointment Needed (stomach pain) 1 Travel 1 4:30 PM EDT Office Visit [facility] [address] [address] Lauryn Valiente MD Urinary frequency (Primary Dx); Cystitis 1 Telephone SEP Urology [address] [address] Sandra Murrell PA-C Other 1 Telephone SEP Ophthalmology [place] [address] [address] Na Ang MD Other 1 Refill SEP . [address] [address] Otto Arreaga MD Medication Refill 1 Refill SEP [address] [address] Janet Vogt MD Medication Refill 1 Travel 1 9:00 AM EDT Office Visit SEP Urology NPTFTT [address] [place] [address] Heydi Merrill MD Incomplete bladder emptying (Primary Dx); Stranguria; Slow transit constipation; Cauda equina syndrome with neurogenic bladder (HCC); Microhematuria; Nocturia; Frequency of micturition 1 Refill SEP H&V [place] [address] [place] [address] Kendy Biggs, Medication Refill 1 Travel 1 3:10 PM EDT Office Visit SEP Ophthalmology Cov [address] [address] Na Ang MD Refractive error (Primary Dx); Keratitis sicca, bilateral (HCC); Nuclear sclerotic cataract of right eye 1 Telephone SEP . [address] [address] Janet Vogt MD Follow-up (dexa scan ) 1 Refill [facility] [address] [place] [address] Janet Vogt MD Medication Refill 1 Travel 1 11:00 AM EDT Clinical Support SEP [facility] [address] [place] [address] [facility] Encounter for therapeutic drug monitoring (Primary Dx) 1 Travel 1 Travel 1 3:40 PM EDT Office Visit SEP Ophthalmology Cov [address] [facility] [address] [place] [address] Na Ang MD Nuclear sclerotic cataract of right eye (Primary Dx) 1 Travel 1 4:47 PM EDT - 1 11:59 PM EDT Hospital Encounter [facility] [address] [place] [address] Oneal Carrera, DPLauryn Arthritis of left ankle Discharge Disposition: Home or Self Care 1 Orders Only SEP Urology NPTFTT [address] [place] [phone] Heydi Merrill MD Incomplete bladder emptying (Primary Dx) 1 Travel 1 2:30 PM EDT Office Visit SEP Ophthalmology Cov [address] [facility] [address] [place] [address] Na Ang MD Nuclear sclerotic cataract of right eye (Primary Dx) 1 12:25 PM EDT - 1 12:50 PM EDT Surgery [facility]IOP [address] [place] [address] Na Ang MD CATARACT EXTRACTION WITH PHACOEMULSIFICATION AND INTRAOCULAR LENS 1 12:33 PM EDT Anesthesia Event [facility] [address] [place] [address] Oumar Weiss MD Zehnder, Wende, APRN 1 10:15 AM EDT - 1 1:42 PM EDT Hospital Encounter FTT SAME DAY SURGERY [address] [place] [address] Na Ang MD Nuclear sclerotic cataract of right eye Discharge Disposition: Home or Self Care 1 Travel 1 1:19 PM EDT - 1 11:59 PM EDT Hospital Encounter [facility] [address] [place] [address] Covid19, Edg Lab [place] Pre-op testing; Encounter for laboratory testing for COVID-19 virus Discharge Disposition: Home or Self Care 1 2:29 PM EDT - 1 11:59 PM EDT Hospital Encounter FTT MOB DRAW SITE [address] [place] [address] Essential hypertension; Other hyperlipidemia; Acquired hypothyroidism; Peripheral neuropathy, idiopathic Discharge Disposition: Home or Self Care 1 2:00 PM EDT Office Visit [facility] [address] [place] [phone] Janet Vogt MD Peripheral neuropathy, idiopathic (Primary Dx) 1 Travel 1 Travel 1 1:15 PM EDT Office Visit SEP [facility] [place] [address] [place] [address] Kendy Biggs DO Uncontrolled hypertension (Primary Dx); Dyslipidemia; Coronary artery disease involving chevak coronary artery of chevak heart without angina pectoris; Heart murmur 1 Orders Only [facility] [address] [place] [phone] Yara Anders CCMA 1 Travel 1 Travel 1 2:30 PM EDT Office Visit SEP Ophthalmology Cov [address] [facility] [address] [place] [address] Na Ang MD Nuclear sclerotic cataract of right eye (Primary Dx) 1 Refill SEP Gastro [facility] [address]51 [facility] [address] [facility] [place] [address] Gerardo Purcell MD Medication Refill 1 Travel 1 2:30 PM EDT Office Visit SEP Ophthalmology Cov [address] [facility] [address] [place] [phone] Na Ang MD Nuclear sclerotic cataract of right eye (Primary Dx); Nuclear sclerotic cataract of left eye 1 2:30 PM EDT - 1 2:55 PM EDT Surgery [facility]TT PERIOP [address] [place] [address] Na Ang MD CATARACT EXTRACTION WITH PHACOEMULSIFICATION AND INTRAOCULAR LENS 1 2:22 PM EDT Anesthesia Event FTT PERIOP [address] [place] [address] Juan Lynn MD Collins, Angela, APRN 1 12:46 PM EDT - 1 3:41 PM EDT Hospital Encounter FTT SAME DAY SURGERY [address] [place] [address] Na Ang MD Nuclear sclerotic cataract of left eye Discharge Disposition: Home or Self Care 1 Travel 1 Travel 1 1:00 PM EDT - 1 11:59 PM EDT Hospital Encounter [facility] [address] [place] [address] Covid19, Edg Lab [place] Pre-op testing; Encounter for laboratory testing for COVID-19 virus Discharge Disposition: Home or Self Care 1 Travel 1 Travel 1 Telephone SEP Ophthalmology Cov [address] [address] Fatoumata Mantilla Follow-up 1 Travel 1 2:50 PM EST Office Visit SEP Ophthalmology Cov [address] [phone] Na Ang MD Nuclear sclerotic cataract of left eye (Primary Dx); Narrow angle glaucoma of left eye; Anatomical narrow angle, bilateral ; Anatomical narrow angle, bilateral 1 Travel 1 Refill SEP Gastro [facility] [address] [facility] [address] [facility] [place] [address] Gerardo Purcell MD Medication Refill 1 Orders Only [facility]P [place] [address] [address] Yara Anders CCMA Essential hypertension (Primary Dx) 1 Telephone SEP H&V [facility] [place] [address] [place] [address] Kendy Biggs DO Appointment Needed 1 Refill SEP Gastro [facility] [address] [facility] [address] [place] [address] Gerardo Purcell MD Medication Refill 0 Refill SEP Gastro [facility] [address] [facility] [address] [facility] [place] [address] Gerardo Purcell MD Medication Refill 0 Travel 0 1:02 PM EST - 0 11:59 PM EST Hospital Encounter [facility] [place] [facility] [address] [facility] [place] [address] Heydi Merrill MD Incomplete bladder emptying Discharge Disposition: Home or Self Care 0 Travel 0 Travel 0 10:20 AM EST Office Visit SEP Urology NPTFTT [address] [place] [phone] Heydi Merrill MD Incomplete bladder emptying (Primary Dx); Stranguria; Slow transit constipation; Cauda equina syndrome with neurogenic bladder (HCC) 0 Orders Only [facility] [place] [address] [address] Jamilah Hdez RMA Essential hypertension (Primary Dx) 0 Telephone SEP Ft. [address] [address] Janet Vogt MD Medication Management (cloNIDine (CATAPRES) 0.2 mg/24 hr TD Patch Weekly 12 Patch 0 04/15/2020 ) 0 Telephone SEP Ft. [address] [address] Janet Vogt MD Medication Management (cloNIDine (CATAPRES) 0.2 mg/24 hr TD Patch Weekly) 0 Refill SEP Ft. [address] [address] Janet Vogt MD Medication Refill 0 Travel 0 Refill SEP [address] [place] [address] Gerardo Purcell MD Medication Refill 0 Travel 0 Telephone SEP Ft. [address] [address] Janet Vogt MD Other (needs a return call.) 0 Travel 0 1:30 PM EDT Clinical Support SEP Ft. [address] [address] Jayna Farooq MA Viral URI with cough (Primary Dx) 0 Telephone SEP Ft. [address] [address] Janet Vogt MD Orders (covid test ) 0 11:45 AM EDT Telemedicine SEP [facility]t. [address] [address] Severo Harrell, Viral URI with cough (Primary Dx) 0 Telephone SEP [facility] [place] [address] [address] Janet Vogt MD Orders (sore throat , body aches ) 0 Travel 0 12:15 PM EDT Ancillary Procedure [facility] Urgent Care [place] [place] [address] [place] [address] Subcutaneous mass of supraclavicular area 0 Travel 0 11:45 AM EDT Office Visit [facility] [place] [address] [address] Janet Vogt MD Subcutaneous mass of supraclavicular area (Primary Dx) 0 Travel 0 Refill [facility] [address] [facility] [address] [place] [address] Gerardo Purcell MD Medication Refill 0 Travel 0 12:14 PM EDT - 0 11:59 PM EDT Hospital Encounter [facility] [place] [facility] [address] [facility] [place] [address] Janet Vogt MD Post-menopausal Discharge Disposition: Home or Self Care 0 1:53 PM EDT - 0 11:59 PM EDT Hospital Encounter FTT MOB DRAW SITE [address] [place] [address] Acute pain of both shoulders Discharge Disposition: Home or Self Care 0 1:00 PM EDT Office Visit SEP [place] [address] [address] Severo Harrell DO Acute pain of both shoulders (Primary Dx) 0 Travel 0 Travel 0 Travel 0 6:05 AM EDT - 0 11:59 PM EDT Hospital Encounter [facility] EKG ATTN: Appointments in this department are performed at various locations in the community on our Cardiovascular mobile health unit. You can look online to verify your site or call [phone] [address] Leoncio Haywood APRN Screening for cardiovascular condition Discharge Disposition: Home or Self Care 0 6:03 AM EDT - 0 6:04 AM EDT Hospital Encounter [facility] ECHO VAS ATTN: Appointments in this department are performed at various locations in the community on our Cardiovascular mobile health unit. You can look online to verify your site or call [phone] [address] Leoncio Haywood APRN Screening for cardiovascular condition Discharge Disposition: Home or Self Care 0 Orders Only SEP H&V [facility] [address] [place] [phone] Colleen Dunne [facility] 0 [facility]ill [facility] [address] [place] [address] Janet Vogt MD Medication Refill 0 Refill SEP [facility]t. [address] [address] Janet Vogt MD Medication Refill 0 Orders Only SEP H&V [facility] [address] [place] [address] Anderson Alejandra MA Essential hypertension (Primary Dx) 0 Refill SEP Gastro [facility] [address] [facility] [address] [place] [id number] Gerardo Purcell MD Medication Refill 0 Refill SEP H&V [facility] [address] [place] [address] William Presley PA-C Medication Refill 0 Refill SEP Urology NPTFTT [address] [place] [phone] Heydi Merrill MD Medication Refill 0 Travel 0 Travel [address] [address] Janet Vogt MD Orders 0 Travel 0 2:00 PM EDT Telemedicine [facility] H&V [facility] [address] [place] [address] Kendy Biggs, Nonobstructive atherosclerosis of coronary artery (Primary Dx); Mixed hyperlipidemia; Essential hypertension; Dyslipidemia 0 Travel 0 2:20 PM EDT Office Visit [address] [address] Heydi Merrill MD Stranguria (Primary Dx); Incomplete bladder emptying; Frequency of micturition; Nocturia 0 Travel [address] [address] Heydi Merrill MD Other (trouble with urinating.) 0 Travel 0 Travel 0 11:15 AM EDT Telemedicine [address] [address] Janet Vogt MD Acquired hypothyroidism (Primary Dx); Essential hypertension; Other hyperlipidemia; Incomplete bladder emptying 0 Telephone SEP Gastro [facility] [address]51 [facility] [address] [facility] [place] [address] Gerardo Purcell MD Medication Question 0 Telephone SEP Gastro [facility] 651 [facility] [address] [facility] Gerardo Purcell MD Medication Management [address] [address] Janet Vogt MD Other 0 Telephone [facility] [address] [place] [address] Janet Vogt MD Lab Orders (antibody test for CV-19) 0 Travel 0 Lab Requisition [facility] [place] [address] Gerardo Purcell MD Personal history of colonic polyps; Other specified diseases of intestine 0 Orders Only SEP Gastro CV [address] [facility] [address] [facility] [place] [address] Gerardo Purcell MD 0 Travel 0 Telephone SEP Gastro CV [address] [place] [facility] [address] [facility] [place] [address] Roderick Santoyo MD PHD Procedure 0 Telephone SEP Gastro [facility] [address] [facility] [place] [address] Gerardo Purcell MD Medication Question 0 1:30 PM EST Office Visit SEP Urology NPTFTT [address] [place] [address] Heydi Merrill MD Dysuria (Primary Dx); Incomplete bladder emptying; Urinary urgency; Irritable bowel syndrome with constipation 0 Telephone SEP Gastro CV [address] [place] [facility] [address] [facility] [place] [address] Violeta Victoria APRN Medication Management (ELAVIL PA) 0 Telephone SEP Gastro CV [address] [facility] [address] [facility] [place] [address] Violeta Victoria APRN Medication Management 0 2:30 PM EST Office Visit SEP Gastro CV [address] [facility] [address] [facility] [place] [address] Violeta Victoria APRN Nausea (Primary Dx); Dry heaves; Abdominal fullness; Hx of colonic polyps; Irritable bowel syndrome with constipation; Special screening for malignant neoplasms, colon 0 Orders Only SEP Urology [address] [address] Handy, Sandra A, PA-C Incomplete bladder emptying (Primary Dx) 0 Telephone SEP Urology [address] [address] Handy, Sandra A, PA-C Other (medication issues) 0 Orders Only SEP Urology NPTFTT [address] [place] [phone] Handy, Sandra A, PA-C 0 Telephone SEP Urology NPTFTT [address] [place] [phone] Handy, Sandra A, PA-C Other 0 1:45 PM EST Office Visit SEP Urology NPTFTT [address] [place] [phone] Handy, Sandra A, PA-C Nausea (Primary Dx); Acute UTI; Microhematuria; Incomplete bladder emptying 0 Telephone SEP Gastro [facility] [address] [facility] [address] [place] [address] Gerardo Purcell MD Nausea 9 9:15 AM EST Office Visit SEP Urology [address] [address] Handy, Sandra A, PA-C Incomplete bladder emptying (Primary Dx); Dysuria; Acute UTI 9 1:30 PM EST Office Visit [facility] H&V CV [place] [address] [address] Kendy Biggs DO Coronary artery disease involving chevak coronary artery of chevak heart without angina pectoris (Primary Dx); Heart murmur; Mixed hyperlipidemia; Essential hypertension; Acquired hypothyroidism 9 10:00 AM EST Office Visit SEP Urology NPTFTT [address] [place] [phone] Heydi Merrill MD Incomplete bladder emptying (Primary Dx); Dysuria; Other constipation 9 Telephone [facility] Gastro [facility] [address] [facility] [address] [place] [address] Gerardo Purcell MD Other 9 2:00 PM EST Office Visit [facility] [place] [address] [address] Janet Vogt MD Dysuria (Primary Dx) 9 2:04 PM EST - 9 11:59 PM EST Hospital Encounter [place] [address] [facility] [place] [address] Janet Vogt MD Encounter for screening mammogram for malignant neoplasm of breast Discharge Disposition: Home or Self Care 9 Telephone [facility] H&V [facility] [address] [place] [address] Kendy Biggs, DO Medication Refill [address] [address] Jamilah Stacy, assembler dc field ring Change 9 12:45 PM EDT Office Visit [address] [address] Flaca Aguila MD UTI symptoms (Primary Dx) 9 9:15 AM EDT Office Visit [facility] Dermatology [facility] [address] [facility] [address] [place] [address] Chandni Murillo MD History of basal cell carcinoma (BCC) (Primary Dx); SK (seborrheic keratosis); Nevus; Other viral warts; Pain of skin; Disturbance of skin sensation 9 2:45 PM EDT Office Visit [facility] H&V [facility] [address] [place] [address] Kendy Biggs, DO Mixed hyperlipidemia (Primary Dx); Coronary artery disease involving chevak coronary artery of chevak heart without angina pectoris; Heart murmur; Essential hypertension; Acquired hypothyroidism 9 1:15 PM EDT Office Visit [facility] H&V [facility] [place] [address] [place] [address] Sandee Matthews RMA Chest pain, unspecified type (Primary Dx); SOB (shortness of breath) 9 2:20 PM EDT Office Visit [facility] Gastro CV [address]51 [facility] [address] [place] [address] Gerardo Purcell MD Irritable bowel syndrome with constipation (Primary Dx); History of colon polyps 9 11:15 AM EDT Office Visit [facility] [place] [address] [address] Janet Vogt MD Medicare annual wellness visit, subsequent (Primary Dx); Essential hypertension; Acquired hypothyroidism; Other hyperlipidemia; Strain of neck muscle, initial encounter 9 Patient Outreach SEP [facility] [address] [place] [address] [place], RN Medicare Annual Wellness; Osteoarthritis; Schedule Appointment 9 Refill SEP H&V [facility] [address] [place] [address] William Presley PA-C Medication Refill 9 Orders Only [facility] [place] [address] [address] Yara Anders CCMA Essential hypertension (Primary Dx) 9 Telephone SEP [place] [address] [address] Janet Vogt MD Medication Management 9 Telephone [facility] [place] [address] [address] Janet Vogt MD Medication Management (clonidine ) 9 10:32 AM EDT - 9 11:59 PM EDT Hospital Encounter [facility] MOB DRAW S[address] [place] [address] Essential hypertension; Acquired hypothyroidism Discharge Disposition: Home or Self Care 9 10:15 AM EDT Office Visit SEP [facility] [address] [place] [address] Janet Vogt MD Acquired hypothyroidism (Primary Dx); Essential hypertension; Irritable bowel syndrome with diarrhea; Mixed hyperlipidemia; Other hyperlipidemia 9 Orders Only SEP Urology [address] [address] Sandra Murrell PA-C 9 10:00 AM EDT - 9 11:59 PM EDT Hospital Encounter [facility] [address] [place] [address] Slow transit constipation Discharge Disposition: Home or Self Care 9 9:00 AM EDT Office Visit SEP Urology [address] [address] Sandra Murrell PA-C Incomplete bladder emptying (Primary Dx); Slow transit constipation; Cauda equina syndrome with neurogenic bladder (HCC) 9 10:30 AM EDT Office Visit [facility] H&V [facility] [place] [address] [place] [address] William Presley PA-C Uncontrolled hypertension; Chest pain, unspecified type; SOB (shortness of breath); Dizziness; Bradycardia; Mixed hyperlipidemia; Heart murmur 9 2:00 PM EDT Office Visit SEP Ophthalmology Cov [address] [facility] [address] [place] [address] Na Ang MD Keratitis sicca, bilateral; Bilateral ocular hypertension 9 9:20 AM EDT Office Visit SEP Urology NPTFTT [address] [place] [address] Heydi Merrill MD Incomplete bladder emptying (Primary Dx); Urinary urgency; Chronic constipation; Weak urine stream 9 Telephone SEP H&V [facility] [address] [place] [address] Bernadette Louise RMA Visit Follow Up 9 9:51 AM EDT - 11:59 PM EDT Hospital Encounter [facility] [place] [address] Manav Batista MD Screening for condition Discharge Disposition: Home or Self Care 9 9:20 AM EDT Office Visit SEP Urology NPTFTT [address] [place] [phone] Heydi Merrill MD Urine frequency (Primary Dx); Incomplete bladder emptying; Chronic constipation 10:45 AM EDT Office Visit [facility] [address] [place] [address] Kendy Biggs DO Essential hypertension (Primary Dx); Acquired hypothyroidism; Dyslipidemia; Uncontrolled hypertension 9 9:56 AM EST - 11:59 PM EST Hospital Encounter [facility] VASCULAR LAB [address] [place] [address]. [place] [address] William Presley PA-C Uncontrolled hypertension; SOB (shortness of breath); Dizziness; Chest pain, unspecified type; Mixed hyperlipidemia; Bradycardia; Labile hypertension Discharge Disposition: Home or Self Care 9 2:30 PM EST Office Visit [facility] [address] [place] [address] Eduardo Mejia MD Tinnitus, bilateral (Primary Dx); Dizziness, nonspecific; Bilateral ocular hypertension; Optic neuropathy, left; Essential hypertension; Clicking tinnitus of both ears; Sensorineural hearing loss (SNHL) of both ears 9 2:30 PM EST Office Visit SEP H&V [facility] [address] [place] [address] William Presley PA-C Uncontrolled hypertension (Primary Dx); SOB (shortness of breath); Dizziness; Chest pain, unspecified type; Mixed hyperlipidemia; Bradycardia; Labile hypertension 9 Telephone SEP H&V [facility] [place] [address] [place] [address] KalyanAruni, Other 9 Telephone SEP H&V [facility] [place] [address] [place] [address] KalyanKendy, DO Appointment Needed 9 1:00 PM EST Office Visit SEP Ophthalmology Cov [address] [facility] [address] [place] [address] Na Ang MD Keratitis sicca, bilateral (Primary Dx); Cataract, nuclear sclerotic senile, bilateral; Bilateral ocular hypertension; Optic neuropathy, left 9 11:43 PM EST - 9 3:51 AM EST Emergency [facility] Emergency [address] [place] [address] Sameer Coffey MD Hypertension, unspecified type (Primary Dx); Loose stools; Nausea Discharge Disposition: Home or Self Care 9 1:45 PM EST Office Visit [facility] Ophthalmology Cov 1500 [facility] [address] [place] [phone] Na Ang MD Optic neuropathy, left 9 1:48 PM EST - 9 4:19 PM EST Emergency [facility] Emergency [address] [place] [address] Jaylyn Talavera MD Nausea (Primary Dx) Discharge Disposition: Home or Self Care 9 Telephone [facility] Ophthalmology [facility] [address] [phone] Na Ang MD Medication Problem 9 12:20 PM EST - 9 11:59 PM EST Hospital Encounter [facility] ECHO [address] [place] [address] Kendy Biggs, Uncontrolled hypertension; Chest pain, unspecified type; SOB (shortness of breath); Dizziness; Bradycardia; Mixed hyperlipidemia; Heart murmur Discharge Disposition: Home or Self Care 9 8:15 AM EST Office Visit [facility] Ophthalmology Cov [address] [place] [address] [address] [place] [phone] Na Ang MD Refractive error (Primary Dx); Keratitis sicca, bilateral; Cataract, nuclear sclerotic senile, bilateral; Bilateral ocular hypertension; Optic neuropathy, left 9 11:00 AM EST Office Visit [facility] H&V [address] [phone] William Presley PA-C Uncontrolled hypertension (Primary Dx); SOB (shortness of breath); Dizziness; Heart murmur; Mixed hyperlipidemia; Bradycardia 8 Telephone [facility] H&V [address] [address] Kendy Biggs DO Prior Authorization (benicar) 8 Telephone [facility] H&V [address] [address] Kendy Biggs DO Hospital Follow Up 8 5:25 PM EST - 8 4:12 PM EST Hospital Encounter [facility] [address] [address] [place] [address] Sameer Coffey MD Banks, David, MD Gaston, Richard L, MD Hypertensive urgency (Primary Dx); Lightheadedness Discharge Disposition: Home or Self Care 8 Telephone Adult Med [address] [place] [address] [place] [address] Daisy Garcia APRN Blood Pressure Check 8 Abstract [facility] H&V [address] [phone] Kendy Biggs DO 8 8:00 AM EST Office Visit [facility] H&V [address] [address] Kendy Biggs DO Uncontrolled hypertension [...] Care 7 2:15 PM EDT Office Visit [facility]P Dermatology [facility] [address] [phone] Chandni Murillo MD Other viral [...] Care 7 2:04 PM EDT Hospital Encounter [facility] Referral Lab [address] [place] [address] Oumar Alves MD Low back pain 6 5:30 PM EDT Office Visit [facility] Urgent [facility] [address] [place] [address] Liberty Treadwell, DRILL OPERATOR AUTOMATIC Ruptured ear drum, left (Primary Dx); Seasonal [...] online to verify your site or call [phone] Allan [facility]17 Leoncio Haywood APRN Screening for other and unspecified cardiovascular conditions Discharge Disposition: Home or Self Care 5 12:35 PM EDT - 5 11:59 PM EDT Hospital Encounter [facility] [address] [place] [address] Elvira Velarde MD Other screening mammogram Discharge Disposition: Home or Self Care 4 12:45 PM EDT - 4 11:59 PM EDT Hospital Encounter [facility] [address] [place] [address] Elvira Velarde MD Other screening mammogram Discharge Disposition: Home or Self Care 3 12:56 PM EDT - 3 11:59 PM EDT Hospital Encounter [facility] [address] [place] [address] Elvira Velarde MD Other screening mammogram Discharge Disposition: Home or Self Care 3 1:18 PM EST - 3 11:59 PM EST Hospital Encounter [facility] [address] [place] [id number] Geoff Dozier MD Radiculopathy, lumbar region Discharge Disposition: Home or Self Care 2 3:38 PM EST - 2 11:59 PM EST Hospital Encounter [facility] MRI [address] [place] [address] Geoff Dozier MD Right knee pain Discharge Disposition: Home or Self Care 2 2:28 PM EDT - 2 11:59 PM EDT Hospital Encounter [facility] [address] [place] [address] Geoff Gant Thoracic or lumbosacral neuritis or radiculitis, unspecified Discharge Disposition: Home or Self Care 2 1:59 PM EST - 2 11:59 PM EST Hospital Encounter [facility] [address] Claire Barnett Other screening mammogram Discharge Disposition: Home or Self Care 2 6:19 PM EST - 2 11:59 PM EST Hospital Encounter [facility] JUWAN PROCESS[facility] [place] [address] Discharge Disposition: Home or Self Care 1 12:49 PM EST - 1 11:59 PM EST Hospital Encounter [facility] [address] Maxime Araiza MD Osteopenia Discharge Disposition: Home or Self Care 1 11:52 AM EST - 1 12:48 PM EST Hospital Encounter [facility] [address] [place] [address] Provider, Not In Epic Stress fracture foot; Osteoporosis Discharge Disposition: Home or Self Care 1 11:48 AM EST - 1 11:51 AM EST Hospital Encounter [facility] [address] Britt Domingo MD Other screening mammogram Discharge Disposition: Home or Self Care 9 12:01 AM EDT - 9 11:59 PM EDT Hospital Encounter [facility] CARDIOLOGY [facility] Maxime Araiza MD 9 12:01 AM EDT - 9 11:59 PM EDT Hospital Encounter [facility] Maxime Araiza MD 9 1:07 PM EDT - 9 11:59 PM EDT Hospital Encounter [facility] Maxime Araiza MD 9 12:01 AM EDT [...] [facility] WOM Maxime Moran MD 2 1:31 AM EDT - 2 11:59 PM EDT Hospital Encounter [facility] Maxime Moran MD 2 12:45 PM EST - 2 11:59 PM EST Hospital Encounter [facility] Maxime Ferreira MD 1 12:57 AM EDT - 1 [...] Hospital Encounter [facility] EPIC CON UNK COV Steffanie, Salvatore J Allergies Active Allergy Reactions Criticality Noted Date [...] (ASTELIN) 137 mcg (0.1 %) Nasl Aerosol, Goode USE 1 SPRAY(S) IN EACH NOSTRIL TWICE [...] completed by Chen Uribe RN on 04/04/2023. [facility] - Mikey Christian MD Interventional Pain Protocol: NS Appt 07/22/22 Letter Sent Ernesto report completed (EVERY 3 MONTHS) ( 08/09/22) Pharmacy: [facility] [id number] - [place] [address] - [address] [phone] Problem Noted Date Diagnosed Date Secondary adrenal [...] (11/26/2020): Added automatically from request for surgery [id number] Narrow angle glaucoma of left eye 07/10/2020 [...] (08/16/2024 2:03 PM EDT): s/p CEIOL (CPT 41017) for Nuclear sclerotic cataract of right eye [H25.11] on 08/27/2020. s/p CEIOL (CPT 04990) for Nuclear sclerotic cataract of left eye [H25.12] on 07/30/2020. Has developed PCO. Discussed findings, options and risks with patient. She would like to monitor at this time. Assessment & Plan (02/03/2023 2:57 PM EDT): s/p CEIOL (CPT 03816) for Nuclear sclerotic cataract of right eye [H25.11] on 08/27/2020. s/p CEIOL (CPT 64436) for Nuclear sclerotic cataract of left eye [H25.12] on 07/30/2020. Assessment & Plan (10/08/2021 1:20 PM EDT): s/p CEIOL (CPT 10704) for Nuclear sclerotic cataract of right eye [H25.11] on 08/27/2020. s/p CEIOL (CPT 26945) for Nuclear sclerotic cataract of left eye [H25.12] on 07/30/2020. Assessment & Plan (09/25/2020 3:35 PM EDT): s/p CEIOL (CPT 64024) for Nuclear sclerotic cataract of right eye [H25.11] on 08/27/2020. Patient healing as expected. s/p CEIOL (CPT 55957) for Nuclear sclerotic cataract of left eye [H25.12] on 07/30/2020. Patient healing as expected. Assessment & Plan (09/04/2020 4:12 PM EDT): POW1 s/p CEIOL (CPT 79054) for Nuclear sclerotic cataract of right eye [H25.11] on 08/27/2020. Patient healing as expected. Continue post op precautions. Patient to follow up in 3 week(s) s/p CEIOL (CPT 86137) for Nuclear sclerotic cataract of left eye [H25.12] on 07/30/2020. Patient healing as expected. Assessment & Plan (08/28/2020 2:59 PM EDT): POD1 s/p CEIOL (CPT 48870) for Nuclear sclerotic cataract of right eye [H25.11] on 08/27/2020. Patient healing as expected. Continue post op precautions. Patient to follow up in 1 week(s) s/p CEIOL (CPT 71746) for Nuclear sclerotic cataract of left eye [...] to proceed with standard. s/p CEIOL (CPT 21430) for Nuclear sclerotic cataract of left eye [H25.12] on 07/30/2020. Patient healing as expected. Assessment & Plan (07/31/2020 2:50 PM EDT): POD1 s/p CEIOL (CPT 60366) for Nuclear sclerotic cataract of left eye [...] Alive Social History Smoking Status as of 12/31/2024 Tobacco Use Types Packs/Day Years Used Date Smoking Tobacco: Never Assessed Overall Financial Resource Strain (CARDIA) Answe r Date Recorded How hard is it for you to pa y for the very basics like food, housing, medical care, and heating? Not hard at all 11/25/2020 PHQ-2 Answer Date Recorded PHQ-2 Total Score 0 07/28/2022 [facility] [place] of Occupat ional Health - Occupational Stress [...] Info) Description 01/16/2025 11:30 AM EDT Telemedicine [address] [place] [address] Katharine Whitlock MD [address] [place] [address] [place], [place] [phone] 08/15/2025 1:40 PM EDT Office Visit [facility] Ophthalmology Cov 1500 [facility] [address] [place] [phone] Na Ang MD [address] [place], [place] [id number] Medical Devices Implanted Type Area Sash Repairer Device Identifier Shelf Expiration Date Model / Serial / Lot Lens +22.5d 6x13mm Arcysof Iq Ultrasert Au00t0 Pc 1-Pc - [id number] Implanted:Qty: 1 on 07/30/2020 by Na Ang MD at [facility] Left: Eye [facility]:SURG [id number] 02/25/2023 AU00T0 .225 / [id number] / Lens +23d 6x13mm Arcysof Iq Ultrasert Au00t0 Pc 1-Pc Basell - [id number] Implanted:Qty: 1 on 08/27/2020 by Na Ang MD at [facility] Right: Eye [employer]:SURG [id number] 03/21/2023 AU00T0.230 / [id number] / Procedures Procedure Name Priority Date/Time [...] Routine 09/16/2022 1:45 PM EDT Cervical pain MI ARTHROCENTESIS ASPIR&/INJ MAJOR JT/BURSA W/O US Routine [...] PM EST Abdominal pain, unspecified abdominal location 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 CYTOLOGY REQUEST Routine 05/05/2022 4:39 PM EST Microhematuria URINALYSIS Routine 05/05/2022 4:39 PM EST Microhematuria URINE CULTURE (NO STAIN) Routine 05/05/2022 4:39 PM EST Microhematuria SEP URINALYSIS POC Routine 05/05/2022 3:21 PM EST Microhematuria URINALYSIS STAT 04/28/2022 7:23 AM EST UA W/REFLEX TO CULTURE STAT 7:23 AM EST EXTRA [place] URINE CX STAT 04/28/2022 7:23 AM EST [id number] A/B Routine 04/28/2022 6:38 AM EST EMG [...] 12:15 PM EDT Screening for cardiovascular condition FL US VASCULAR CVMHU SCREENING SINGLE EXAM Routine [...] Cardiology Consultation Admission: 04/25/2018 Patient: Gilbert Moreira [id number] PCP:Elvira Velarde 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 Presented [...] Tab 5 fluticasone (FLONASE) 50 mcg/actuation Nasl Goode, Suspension 1 Goode byNasal route daily. (Patient not taking: Reported [...] most recent cardiovascular imaging studies availabe in [facility] EMR werereviewed at time of consultation Assessment: [...] input to follow per Dr. Jamal Louise DRILL OPERATOR AUTOMATIC EK EKG 12 LEAD STAT 04/24/2018 5:42 [...] 1:33 PM EDT Visit for screening mammogram [facility] VASCULAR CVMHU SCREENING SINGLE EXAM Routine 12/12/2014 [...] 57 >=50 mg/dL 12/14/2024 4:58 PM EDT [facility] Blood VENOUS BLOOD / Unknown Venipuncture / Unknown 12/14/2024 4:27 PM EDT 12/14/2024 4:27 PM EDT Katharine Whitlock MD CHEMISTRY ORDERABLES Final Resu lt Performing Organization Address City/[facility]/ZIP Co de Phone Number [facility] [address] [email or web address] [address] * GLUCOSE 2.5 HOUR (12/14/2024 3:52 PM EDT) Gluc 2.5 Hr 80 >=50 mg/dL 12/14/2024 4:36 PM EDT [facility] Blood VENOUS BLOOD / Unknown Venipuncture / Unknown 12/14/2024 3:52 PM EDT 12/14/2024 3:52 PM EDT Katharine Whitlock MD CHEMISTRY ORDERABLES Final Resu lt Performing Organization Address [facility]/ZIP Co de Phone Number [facility] [address] [place] [address] * GLUCOSE HYPOGLYCEMIA 2 HOUR (GTT) (12/14/2024 3:16 PM EDT) Gluc 2 Hr 84 <140 mg/dL 12/14/2024 3:52 PM EDT [facility] Blood VENOUS BLOOD / Unknown Venipuncture / Unknown 12/14/2024 3:16 PM EDT 12/14/2024 3:16 PM EDT Katharine Whitlock MD CHEMISTRY ORDERABLES Final Resu lt Performing Organization Address [facility] de Phone Number [address] [address] * GLUCOSE 1.5 HOUR (12/14/2024 2:42 PM EDT) Glu 1.5 Hr 87 mg/dL 12/14/2024 3:31 PM EDT [facility] Blood VENOUS BLOOD / Unknown Venipuncture / Unknown 12/14/2024 2:42 PM EDT 12/14/2024 2:42 PM EDT Katharine Whitlock MD CHEMISTRY ORDERABLES Final Resu lt Performing Organization Address [facility] Phone Number [facility] [address] [place] [address] * GLUCOSE HYPOGLYCEMIA 1 HOUR (GTT) (12/14/2024 2:11 PM EDT) Gluc 1 Hr 89 - mg/dL 12/14/2024 3:02 PM EDT [facility] Blood VENOUS BLOOD / Unknown Venipuncture / Unknown 12/14/2024 2:11 PM EDT 12/14/2024 2:11 PM EDT Katharine Whitlock MD CHEMISTRY ORDERABLES Final Resu lt Performing Organization Address [facility] Phone Number [address] [phone] * GLUCOSE .5 HOUR (12/14/2024 1:36 PM EDT) Gluc .5 Hr 136 mg/dL 12/14/2024 2:12 PM EDT [facility] Blood VENOUS BLOOD / Unknown Venipuncture / Unknown 12/14/2024 1:36 PM EDT 12/14/2024 1:34 PM EDT Katharine Whitlock MD CHEMISTRY ORDERABLES Final Resu lt [facility] [address] [place] [address] * LIPOPROTEIN (A) (12/14/2024 12:41 PM EDT) Only the most recent of2 resultswithin the time period is included. Lipoprotein (a) 16 <30 mg/dL 7:13 PM EDT [facility] Blood VENOUS BLOOD / Unknown Venipuncture / Unknown 12/14/2024 12:41 PM EDT 12/14/2024 2:23 PM EDT Katharine Whitlock MD CHEMISTRY ORDERABLES Final Resu lt Performing Organization Address City/[facility]/ZIP Co de Phone Number [facility] [employer] [address] [facility] , [place] [address] * (ABNORMAL) IRON+TIBC (12/14/2024 12:41 PM EDT) [...] Whitlock MD CHEMISTRY ORDERABLES Final Resu lt [employer] 1 [facility] , [address] [place] [phone] * GLUC HYPOGLYCEMIA FASTING (GTT) (12/14/2024 12:41 PM EDT) Pathologist [facility] Glucose Fasting 92 <100 mg/dL 12/14/2024 1:33 PM EDT [facility] Blood VENOUS BLOOD / Unknown Venipuncture / Unknown 12/14/2024 12:41 PM EDT 12/14/2024 1:07 PM EDT Katharine Whitlock MD CHEMISTRY ORDERABLES Final Resu lt Performing Organization Address [facility] de Phone Number [facility] [address] [place] [address] * THYROID PEROXIDASE (TPO) ANTIBODY (12/14/2024 12:41 PM EDT) Only the most recent of2 resultswithin the time period is included. Pathologist [facility] TPO Ab <3.00 <=5.59 IU/mL 12/14/2024 7:09 PM EDT [facility] 3TEN8 Blood VENOUS BLOOD / Unknown Venipuncture / Unknown 12/14/2024 12:41 PM EDT 12/14/2024 2:22 PM EDT Katharine Whitlock MD IMMUNOLOGY ORDERABLES Final Res ult Performing Organization Address [facility] Co de Phone Number [facility] 3TEN8 1 [facility] , [address] [place] [phone] * LIPID PANEL REFLEX (12/14/2024 12:41 PM EDT) Only the most recent of2 resultswithin the time period is included. Cholesterol 158 <200 mg/dL 12/14/2024 6:49 PM EDT [employer] Comment: < 200 Desirable 200 - 239 Borderline High >= 240 High Triglyceride 97 <150 mg/dL 12/14/2024 6:49 PM EDT [employer] Comment: < 150 Normal 150 - 199 Borderline High 200 - 499 High >= 500 Very High HDL 49 >=40 mg/dL 12/14/2024 6:49 PM EDT [employer] Comment: > 60 Optimal 40 - 60 Acceptable < 40 Low LDL Calculated 91 <100 mg/dL 12/14/2024 6:49 PM EDT [employer] Comment: < 100 Optimal 100 - 129 Near or above optimal 130 - 159 Borderline High 160 - 189 High >= 190 Very High The National Institutes of Health (NIH) equation is used for all lipid panels that report calculated LDL (LDL-C). Non-HDL-C Calculated 109 <=129 mg/dL 12/14/2024 6:49 PM EDT [employer] Comment: <130 Desirable 130-159 Above Desirable 160-189 Borderline High 190-219 High >= 220 Very High Fasting Specimen? Yes None 025 6:49 PM EDT [facility] Blood VENOUS BLOOD / Unknown Venipuncture / Unknown 12/14/2024 12:41 PM EDT 12/14/2024 2:23 PM EDT Katharine Whitlock MD CHEMISTRY ORDERABLES Final Resu lt [employer] 1 [facility] , [address] [place] [id number] * VITAMIN D 25 HYDROXY (12/14/2024 12:41 PM EDT) Only the most recent of2 resultswithin the time period is included. Vit D 25 OH 72.0 30.0 - 150.0 ng/mL 12/14/2024 6:58 PM EDT [employer] Comment: Preferred: >= 30 ng/mL Insufficient: 21-29 [...] Whitlock MD CHEMISTRY ORDERABLES Final Resu lt [employer] 1 [facility] , [place] [address] * VITAMIN D, 1,25-DIHYDROXY -REF LAB (12/14/2024 12:41 PM EDT) Vit D 1,25 46.9 19.9 - 79.3 pg/mL 12/16/2024 2:37 PM EDT [employer] Comment: INTERPRETIVE INFORMATION: Vitamin D, 1,25-Dihydroxy This test is primarily indicated during patient evaluation for hypercalcemia and renal failure. A normal result does not rule out Vitamin D deficiency. The recommended test for diagnosing Vitamin D deficiency is Vitamin D 25-hydroxy. Performed By: [employer] [address] [place] [address] Archivist Economic History: Uvaldo Youssef MD, PhD CLIA Number: [id number] Blood VENOUS BLOOD / Unknown Venipuncture / Unknown 12/14/2024 12:41 PM EDT 12/14/2024 2:31 PM EDT Katharine Whitlock MD CHEMISTRY ORDERABLES Final Resu lt [employer] [address] [place] [address] * (ABNORMAL) DEHYDROEPIANDROSTERONE SULFATE (12/14/2024 12:41 PM EDT) Dhea Sulfate 10.40(L) 12.00 - 154.00 mcg/dL 12/14/2024 6:58 PM EDT [employer] Blood VENOUS BLOOD / Unknown Venipuncture / Unknown 12/14/2024 12:41 PM EDT 12/14/2024 3:30 PM EDT Narrative [facility] 3TEN8 - 12/14/2024 6:58 PM EDT Ingestion of aldair doses of biotin (>5 mg/day) taken within 8 hours of drawing blood sample can interfere with this immunoassay test. Katharine Whitlock MD CHEMISTRY ORDERABLES Final Resu lt [facility] 3TEN8 [address] [facility], [place] [address] * THYROGLOBULIN ANTIBODY -REF LAB (12/14/2024 12:41 PM EDT) Thyroglob Ab <1.5 0.0 - 4.0 IU/mL 12/16/2024 6:43 AM EDT [employer] Comment: INTERPRETIVE INFORMATION: Thyroglobulin Antibody A value of 4.0 IU/mL or less indicates a negative result for thyroglobulin antibodies. The Thyroglobulin Antibody assay is being performed using the [employer] Access DxI method. Performed By: [employer] [address] [place] [address] Archivist Economic History: Uvaldo Youssef MD, PhD CLIA Number: [id number] Blood VENOUS BLOOD / Unknown Venipuncture / Unknown 12/14/2024 12:41 PM EDT 12/14/2024 2:31 PM EDT Katharine Whitlock MD IMMUNOLOGY ORDERABLES Final Res ult Performing Organization Address [facility] Co de Phone Number [facility] [address] [place] [address] * ADRENOCORTICOTROPIC HORMONE -REF LAB (12/14/2024 12:41 PM EDT) Only the most recent of2 resultswithin the time period is included. ACTH 17.4 7.2 - 63.3 pg/mL 12/17/2024 7:33 PM EDT [employer] Comment: INTERPRETIVE INFORMATION: Adrenocorticotropic Hormone Reference interval based on samples collected between 7 a.m. and 10 a.m. No reference intervals established for p.m. collections. Pediatric reference values are the same as adults (Acta Paediatr Scand 1981;70:341-345). This assay measures intact ACTH 1-39; some types of synthetic ACTH and ACTH fragments are not detected by this assay. Performed By: [employer] [address] [place] [address] Archivist Economic History: Uvaldo Youssef MD, PhD CLIA Number: [id number] Blood VENOUS BLOOD / Unknown Venipuncture / Unknown 12/14/2024 12:41 PM EDT 12/14/2024 2:19 PM EDT Katharine Whitlock MD CHEMISTRY ORDERABLES Final Resu lt Performing Organization Address [facility] de Phone Number [facility] [address] [place] [address] * C-REACTIVE PROTEIN (12/14/2024 12:41 PM EDT) Only the most recent of3 resultswithin the time period is included. CRP <3.00 <=5.00 mg/L 12/14/2024 7:13 PM EDT [facility] 3T[facility]8 Blood VENOUS BLOOD / Unknown Venipuncture / Unknown 12/14/2024 12:41 PM EDT 12/14/2024 2:23 PM EDT Katharine Whitlock MD CHEMISTRY ORDERABLES Final Resu lt Performing Organization Address [facility] de Phone Number [employer] 1 [facility] , [place] [address] * URIC ACID (12/14/2024 12:41 PM EDT) Only the most recent of2 resultswithin the time period is included. Uric Acid 3.4 2.4 - 5.7 mg/dL 12/14/2024 6:49 PM EDT [employer] Blood VENOUS BLOOD / Unknown Venipuncture / Unknown 12/14/2024 12:41 PM EDT 12/14/2024 2:23 PM EDT Katharine Whitlock MD CHEMISTRY ORDERABLES Final Resu lt Performing Organization Address City/[facility] Co de Phone Number [employer] 1 [facility] , [place] [address] * T3 FREE (12/14/2024 12:41 PM EDT) Only the most recent of2 resultswithin the time period is included. T3 Free 2.24 2.00 - 4.40 pg/mL 12/14/2024 6:49 PM EDT [facility] 3TEN8 Blood VENOUS BLOOD / Unknown Venipuncture / Unknown 12/14/2024 12:41 PM EDT 12/14/2024 2:23 PM EDT Narrative [employer] - 12/14/2024 6:49 PM EDT Ingestion of aldair doses of biotin (>5 mg/day) taken within 8 hours of drawing blood sample can interfere with this immunoassay test. Katharine Whitlock MD CHEMISTRY ORDERABLES Final [facility] Performing Organization Address [facility] de Phone Number [facility] [employer] [address] , [place] [address] * THYROID STIMULATING HORMONE (12/14/2024 12:41 PM EDT) Only the most recent of2 resultswithin the time period is included. TSH 0.737 0.270 - 4.200 mcIU/mL 12/14/2024 6:49 PM EDT [facility] 3TEN8 Blood VENOUS BLOOD / Unknown Venipuncture / Unknown 12/14/2024 12:41 PM EDT 12/14/2024 2:23 PM EDT Narrative [employer] - 12/14/2024 6:49 PM EDT Ingestion of aldair doses of biotin (>5 mg/day) taken within 8 hours of drawing blood sample can interfere with this immunoassay test. Katharine Whitlock MD CHEMISTRY ORDERABLES Final Resu Performing Organization Address [facility] Co de Phone Number [facility] [employer] [address] [address] * T4, FREE (THYROXINE) (12/14/2024 12:41 PM EDT) Only the most recent of2 resultswithin the time period is included. Free T4 1.41 0.80 - 1.80 ng/dL 12/14/2024 6:49 PM EDT [facility] 3TEN8 Blood VENOUS BLOOD / Unknown Venipuncture / Unknown 12/14/2024 12:41 PM EDT 12/14/2024 2:23 PM EDT Narrative PREFERRED [employer] [facility] - 12/14/2024 6:49 PM EDT Ingestion of aldair doses of biotin (>5 mg/day) taken within 8 hours of drawing blood sample can interfere with this immunoassay test. Katharine Whitlock MD CHEMISTRY ORDERABLES Final Resu lt [facility] 3TEN8 1 [facility], [place] [address] * VITAMIN B6 (PYRIDOXINE) -REF LAB (12/14/2024 12:41 PM EDT) Only the most recent of2 resultswithin the time period is included. Pathologist [facility] Vit B6 37.9 20.0 - 125.0 nmol/L 12/19/2024 5:11 AM EDT [employer] Comment: INTERPRETIVE INFORMATION: Vitamin B6 (Pyridoxal 5-Phosphate) Pyridoxal 5'-phosphate measured in a specimen collected following an 8-hour or overnight fast accurately indicates vitamin B6 nutritional status. Non-fasting specimen concentration reflects recent vitamin intake. This test was developed and its performance characteristics determined by [employer] It has not been cleared or approved by the US Food and Drug Administration. This test was performed in a CLIA certified laboratory and is intended for clinical purposes. Performed By: [employer] [address] [place] [id number] Archivist Economic History: Uvaldo Youssef MD, PhD CLIA Number: [id number] Blood VENOUS BLOOD / Unknown Venipuncture / Unknown 12/14/2024 12:41 PM EDT 12/14/2024 4:56 PM EDT Katharine Whitlock MD CHEMISTRY ORDERABLES Final Resu lt [facility] [address] [place] [address] * PARATHYROID HORMONE INTACT (12/14/2024 12:41 PM EDT) PTH Intact 27.90 15.00 - 65.00 pg/mL 12/14/2024 6:35 PM EDT [facility] Blood VENOUS BLOOD / Unknown Venipuncture / Unknown 12/14/2024 12:41 PM EDT 12/14/2024 2:31 PM EDT Narrative [facility] - 12/14/2024 6:35 PM EDT Intact PTH [...] Whitlock MD CHEMISTRY ORDERABLES Final Resu lt [facility] 1 [facility] , [address] [place] [id number] * LACTIC ACID (12/14/2024 12:41 PM EDT) Only the most recent of4 resultswithin the time period is included. Lactic Acid 0.9 0.5 - 1.9 mmol/L 12/14/2024 1:41 PM EDT [facility] Blood VENOUS BLOOD / Unknown Venipuncture / Unknown 12/14/2024 12:41 PM EDT 12/14/2024 1:14 PM EDT Katharine Whitlock MD CHEMISTRY ORDERABLES Final Resu lt Performing Organization Address City/[facility]/ZIP Co de Phone Number [facility] [address] [place] [address] * LUTEINIZING HORMONE (12/14/2024 12:41 PM EDT) Only the most recent of2 resultswithin the time period is included. LH 44.10 mIU/mL 12/14/2024 6:58 PM EDT PREFERRED 3TEN8 Comment: Suggested Reference Ranges (mIU/mL) Females Follicular Phase 2.4 - 12.6 Ovulation Phase 14.0 - 95.6 Luteal Phase 1.0 - 11.4 Postmenopause 7.7 - 58.5 Males 1.7 - 8.6 Blood VENOUS BLOOD / Unknown Venipuncture / Unknown 12/14/2024 12:41 PM EDT 12/14/2024 3:30 PM EDT Narrative [facility]ERR[facility] 3TEN8 - 12/14/2024 6:58 PM EDT Ingestion of aldair doses of biotin (>5 mg/day) taken within 8 hours of drawing blood sample can interfere with this immunoassay test. Katharine Whitlock MD CHEMISTRY ORDERABLES Final Resu lt Performing Organization Address City/[facility]/ZIP Co de Phone Number [facility] 1 [facility] , [place] [address] * VITAMIN B12 LEVEL (12/14/2024 12:41 PM EDT) Only the most recent of2 resultswithin the time period is included. Vitamin B12 379 232 - 1,245 pg/mL 12/14/2024 6:58 PM EDT [employer] Blood VENOUS BLOOD / Unknown Venipuncture / Unknown 12/14/2024 12:41 PM EDT 12/14/2024 3:30 PM EDT Narrative [employer] - 12/14/2024 6:58 PM EDT Ingestion of aldair doses of biotin (>5 mg/day) taken within 8 hours of drawing blood sample can interfere with this immunoassay test. Katharine Whitlock MD CHEMISTRY ORDERABLES Final Resu Performing Organization Address City/[facility] Co de Phone Number [facility] [address] [place] [address] , [place] [address] * CORTISOL (12/14/2024 12:41 PM EDT) Only the most recent of2 resultswithin the time period is included. Cortisol 5.82 mcg/dL 12/14/2024 6:5 8 PM EDT [employer] Blood VENOUS BLOOD / Unknown Venipuncture / Unknown 12/14/2024 12:41 PM EDT 12/14/2024 3:30 PM EDT [facility] [employer] - 12/14/2024 6:58 PM EDT AM: 4.82 [...] CHEMISTRY ORDERABLES Final Resu Performing Organization Address [facility] Co de Phone Number [employer] [address] [place] [address] [place] [address] * (ABNORMAL) COMPREHENSIVE METABOLIC PANEL [...] recommended by the National Kidney Foundation - [place] [employer] of Nephrology Task Force. Blood VENOUS BLOOD / Unknown Venipuncture / Unknown 12/14/2024 12:41 PM EDT 12/14/2024 2:23 PM EDT us Katharine Whitlock MD CHEMISTRY ORDERABLES Final Resu lt [facility] 3TEN8 1 [facility] , [place] [address] * US THYROID (12/12/2024 12:48 PM EDT) [...] 12:48 PM CLINICAL HISTORY: Thyroid nodule(s). E03.9-Hypothyroidism, rakixegdxyk-VDR-64-CM. COMPARISON: None. PROCEDURE COMMENTS: Sonographic evaluation of [...] 12:48 PM CLINICAL HISTORY: Thyroid nodule(s). E03.9-Hypothyroidism, lpuequtzzll-LOT-81-CM. COMPARISON: None. PROCEDURE COMMENTS: Sonographic evaluation of [...] d Result - Final Performing Organization Address City/[facility]/ZIP Co de Phone Number SEP OFFICE * [...] Res ult - Final Performing Organization Address [facility]/State/ZIP Co de Phone Number SEP OFFICE * THYROGLOBULIN -REF LAB (11/27/2024) Thyroglob Ab <1.0 IU/ML SEP OFFICE Blood VENOUS BLOOD / Unknown 11/27/2024 Katharine Whitlock MD CHEMISTRY ORDERABLES Edited Res ult - Final Performing Organization Address [facility] de Phone Number SEP OFFICE * DEHYDROEPIANDROSTERONE -REF LAB (11/27/2024) DHEA Sulfate 10.3 MCG/DL SEP OFFICE Blood VENOUS BLOOD / Unknown 11/27/2024 Result [facility] Katharine Whitlock MD CHEMISTRY ORDERABLES Edited Res ult - Final Performing Organization Address [facility] de Phone Number SEP OFFICE * [...] Res ult - Final Performing Organization Address [facility] Co de Phone Number SEP OFFICE * OCT, [...] ORDERAB LES Final Result Performing Organization Address [facility] Co de Phone Number SEP OFFICE [...] ORDERAB LES Final Result Performing Organization Address [facility] Co de Phone Number SEP OFFICE * XR CERVICAL SPINE AP AND LATERAL (09/16/2022 1:45 PM EDT) Narrative Dayana Winkler - 09/16/2022 1:45 PM EDT Please see physician's note from office encounter for x-ray imaging result Oumar Alves MD IMG DIAGNOSTIC IMAGING O RDERABLES Final Result * MI ARTHROCENTESIS ASPIR&/INJ MAJOR JT/BURSA W/O US (09/16/2022 [...] Alves MD PROCEDURE/MINOR SURGICAL ORDERABLES Final Result Performing Organization Address City/State/ZIP Co mt Phone Number ORTHOCINCY * NM GASTRIC EMPTYING (08/19/2022 12:17 [...] GASTRIC EMPTYING 08/19/2022 12:17 PM CLINICAL HISTORY: K21.74-Fiafzw-yebujowylp reflux disease with esophagitis, without eilnwnoq-SFS-46-CM. COMPARISON: CT abdomen and pelvis with IV [...] GASTRIC EMPTYING 08/19/2022 12:17 PM CLINICAL HISTORY: K21.79-Lgbsfw-dgiaqssgrj reflux disease withesophagitis, without epdxvmsg-IUY-01-CM. COMPARISON: CT abdomen and pelvis with IV [...] office of the ordering clinician. us Gerardo Rahman MD IMG NM ORDERABLES Final Re sult * SCANNED [...] POC Yellow Color 07/26/2022 10:36 AM EDT [facility] UA Appear POC Clear Clear 07/26/2022 10:36 AM EDT [facility] UA Gluc POC Negative Negative mg/dL 07/26/2022 10:36 AM EDT [facility] UA Bili POC Negative Negative 07/26/2022 10:36 AM EDT [facility] UA Ketones POC Negative Negative mg/dL 07/26/2022 10:36 AM EDT [facility] UA SG POC <=1.005 1.001 - 1.035 no units 07/26/2022 10:36 AM EDT [facility] UA Blood POC Small(A) Negative 07/26/2022 10:36 AM EDT [facility] UA pH POC 5.5 5.0 - 8.0 pH 07/26/2022 10:36 AM EDT [facility] UA Protein POC Negative Negative mg/dL 07/26/2022 10:36 AM EDT [facility] UA Urobilinogen POC 0.2 0.2, 1.0 07/26/2022 10:36 AM EDT [facility] Nitrite POC Negative Negative 07/26/2022 10:36 AM EDT [facility] UA Leuk Est POC Negative Negative 10:36 AM EDT [facility] Urine URINE SPECIMEN COLLECTION / Unknown 07/26/2022 10:33 AM EDT 07/26/2022 10:36 AM EDT Sandra Murrell PA-C POINT OF CARE TEST ORDERAB LES Final Result [facility] [address] [place], [place] [id number] * CBC WITH DIFF (07/18/2022 4:12 PM EDT) Only the most recent of9 resultswithin the time period is included. WBC 5.0 3.7 - 10.3 x10(3)/mcL 07/18/2022 4:18 PM EDT [facility] RBC 4.64 3.90 - 5.20 x10(6)/mcL 07/18/2022 4:18 PM EDT [facility] Hgb 13.3 11.2 - 15.7 g/dL 07/18/2022 4:18 PM EDT [facility] Hct 39.3 34.0 - 45.0 % 07/18/2022 4:18 PM EDT [facility] MCV 84.7 80.0 - 100.0 fL 07/18/2022 4:18 PM EDT [facility] MCH 28.7 26.0 - 34.0 pg 07/18/2022 4:18 PM EDT [facility] MCHC 33.8 30.7 - 35.5 g/dL 07/18/2022 4:18 PM EDT [facility] RDW 13.2 <=14.9 % 07/18/2022 4:18 PM EDT [facility] Platelet 254 155 - 369 x10(3)/mcL 07/18/2022 4:18 PM EDT [facility] MPV 9.6 8.8 - 12.5 fL 07/18/2022 4:18 PM EDT [facility] Neut Percent 49.6 % 07/18/2022 4:18 PM EDT [facility] Comment:Neutrophils equals s egs plus bands Imm Gran% 0.4 % 07/18/2022 4:18 PM EDT [facility] Comment:Automated count of m etamyelocytes, myelocytes and promyelocytes. Lymph Percent 36.1 % 07/18/2022 4:18 PM EDT [facility] Iron Percent 10.9 % 07/18/2022 4:18 PM EDT [facility] Eos Percent 2.0 % 07/18/2022 4:18 PM EDT [facility] Baso Percent 1.0 % 07/18/2022 4:18 PM EDT [facility] Neut # 2.5 1.6 - 6.1 x10(3)/[facility] 07/18/2022 4:18 PM EDT [facility] Comment:Neutrophils equals s egs plus bands IMMGRAN# 0.0 0.0 - 0.1 x10(3)/[facility] 07/18/2022 4:18 PM EDT [facility] Comment:Automated count of m etamyelocytes, myelocytes and promyelocytes. An absolute IG <0.1 is reported as 0.0. Lymph # 1.8 1.2 - 3.9 x10(3)/[facility] 07/18/2022 4:18 PM EDT [facility] Iron # 0.5 0.3 - 0.9 x10(3)/[facility] 07/18/2022 4:18 PM EDT [facility] Eos# 0.1 0.0 - 0.5 x10(3)/[facility] 07/18/2022 4:18 PM EDT [facility] Baso # 0.1 0.0 - 0.1 x10(3)/[facility] 07/18/2022 4:18 PM EDT [facility] Blood VENOUS BLOOD / Unknown Venipuncture / Unknown 07/18/2022 4:12 PM EDT 07/18/2022 4:16 PM EDT Sameer Gan MD HEMATOLOGY ORDERABLES Final Result Performing Organization Address City/[facility]/ZIP Co de Phone Number [facility] [address] [place] [address] * BASIC METABOLIC PANEL (07/18/2022 4:12 PM EDT) Only the most recent of5 resultswithin the time period is included. Sodium 138 136 - 145 mmol/L 07/18/2022 4:33 PM EDT [facility] Potassium 3.8 3.5 - 5.0 mmol/L 07/18/2022 4:33 PM EDT [facility] Chloride 102 98 - 107 mmol/L 07/18/2022 4:33 PM EDT [facility] Total CO2 25 22 - 29 mmol/L 07/18/2022 4:33 PM EDT [facility] Anion Gap 11 7 - 16 mmol/L 07/18/2022 4:33 PM EDT [facility] Calcium 9.5 8.8 - 10.4 mg/dL 07/18/2022 4:33 PM EDT [facility] Glucose Lvl 99 82 - 100 mg/dL 07/18/2022 4:33 PM EDT [facility] BUN 14 8 - 23 mg/dL 07/18/2022 4:33 PM EDT [facility] Creatinine 0.93 0.51 - 1.30 mg/dL 07/18/2022 4:33 PM EDT [facility] eGFR (CKD-EPIcr 2020) 63 >=60 mL/min/1.7 3 m2 07/18/2022 4:33 PM EDT [facility] Comment:Estimated GFR was ca lculated using the CKD-EPIcr (2020) equation refit without race. The equation is recommended by the National Kidney Foundation - [place] [employer] of Nephrology Task Force. Blood VENOUS BLOOD / Unknown Venipuncture / Unknown 07/18/2022 4:12 PM EDT 07/18/2022 4:16 PM EDT Sameer Gan MD CHEMISTRY ORDERABLES Final Result Performing Organization Address City/[facility]/ZIP Co de Phone Number [facility] [address] [place] [address] * (ABNORMAL) URINALYSIS REFLEX (07/18/2022 2:45 PM EDT) UA Color Straw 07/18/2022 3:03 PM EDT [facility] UA Appear Clear Clear 07/18/2022 3:03 PM EDT [facility] UA Glucose Negative Negative mg/dL 07/18/2022 3:03 PM EDT [facility] UA Ketones Negative Negative mg/dL 07/18/2022 3:03 PM EDT [facility] UA Blood Moderate(A) Negative 07/18/2022 3:03 PM EDT [facility] UA pH 6.0 5.0 - 8.0 pH 07/18/2022 3:03 PM EDT [facility] UA Protein Negative Negative mg/dL 07/18/2022 3:03 PM EDT [facility] UA Urobilinogen 0.2 <=1 mg/dL 3:03 PM EDT [facility] UA Bili Negative Negative 07/18/2022 3:03 PM EDT [facility] UA Nitrite Negative Negative 07/18/2022 3:03 PM EDT [facility] UA Leuk Est Trace(A) Negative 07/18/2022 3:03 PM EDT [facility] UA Spec Grav 1.010 1.001 - 1.035 no units 07/18/2022 3:03 PM EDT [facility] Comment:Reference range ruth d for random specimens only. UA WBC 1 0 - 4 /HPF 07/18/2022 3:03 PM EDT [facility] UA RBC 0 0 - 3 /HPF 07/18/2022 3:03 PM EDT [facility] UA Squam Epi Rare /LPF 07/18/2022 3:03 PM EDT [facility] Urine URINE SPECIMEN COLLECTION, CLEAN CATCH / Unknown 07/18/2022 2:45 PM EDT 07/18/2022 2:47 PM EDT Sameer Gan MD URINE ORDERABLES Final Resu lt Performing Organization Address [facility] Co de Phone Number [facility] [address] [place] [address] * EXTRA [place] URINE CX (07/18/2022 2:45 PM EDT) Only the most recent of6 resultswithin the time period is included. Urine URINE SPECIMEN COLLECTION, CLEAN CATCH / Unknown 07/18/2022 2:45 PM EDT 07/18/2022 2:47 PM EDT Sameer Gan MD MICROBIOLOGY - GENERAL ANDRÉSE TANO Final Result Performing Organization Address [facility] de Phone Number [facility] [address] [place] [address] * URINE CULTURE (NO STAIN) (07/18/2022 2:45 PM EDT) Only the most recent of9 resultswithin the time period is included. Culture Multiple bacterial species isolated from urine consistent with urogenital commensal organisms. 07/20/2022 10:02 AM EDT [facility] Urine URINE SPECIMEN COLLECTION, CLEAN CATCH / Unknown 07/18/2022 2:45 PM EDT 07/18/2022 3:03 PM EDT Sameer Gan MD MICROBIOLOGY - GENERAL DIANA FREEDMAN Final Result Performing Organization Address [facility] Co de Phone Number [facility] 1 [facility] , [place] [address] * XR LUMBAR SPINE AP AND LATERAL (07/07/2022 1:02 PM EST) Only the most recent of2 resultswithin the time period is included. Narrative [facility] - 07/07/2022 1:02 PM EST Please see physician's note from office encounter for x-ray imaging result Oumar Alves MD IMG DIAGNOSTIC IMAGING O RDERABLES Final Result * GAMMA GLUTAMYL TRANSFERASE (06/22/2022 1:15 PM EST) GGT 15 5 - 36 U/L 06/22/2022 2:33 PM EST [facility] Blood VENOUS BLOOD / Unknown Venipuncture / Unknown 06/22/2022 1:15 PM EST 06/22/2022 1:15 PM EST Guanakito Parikh DPM CHEMISTRY ORDERABLES Final R esult Performing Organization Address City/[facility] Co de Phone Number [facility] [address] [facility] , [place] [address] * (ABNORMAL) HEPATIC FUNCTION PANEL (06/22/2022 1:15 PM EST) Pathologist [facility] Total Protein 7.3 6.4 - 8.3 gm/dL [...] PM EST 06/22/2022 1:15 PM EST Guanakito Parikh DPM CHEMISTRY ORDERABLES Final R esult Performing Organization Address [facility]/ZIP Co de Phone Number [facility] 1 [facility] , [place] [address] * OCT, OPTIC NERVE - [...] 05/12/2022 1:40 PM CLINICAL HISTORY: R10.9-Unspecified abdominal izdh-QVJ-78-CM. COMPARISON: 12/11/2020 PROCEDURE COMMENTS: Multidetector CT examination [...] 05/12/2022 1:40 PM CLINICAL HISTORY: R10.9-Unspecified abdominal [id number]-[id number]-74-CM. COMPARISON: 12/11/2020 PROCEDURE COMMENTS: Multidetector CT examination [...] MD IMG CT ORDERABLES Final Result * 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 CYTOLOGY REQUEST (05/05/2022 4:39 PM EST) CASE REPORT Non-gynecologi c Cytology Case: [id number] Authorizing Provider: Sandra Murrell PA-C Collected: 05/05/2022 1639 Ordering Location: [facility] Urology [facility] Received: 05/05/2022 1639 Pathologist: Danelle Dixon MD Specimen: Bladder, Urinary 05/06/2022 11:23 AM EST [facility] 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 CYTOLOGY FINAL DIAGNOSIS Bladder washing: - Negative for high grade urothelial carcinoma. 05/06/2022 11:23 AM EST [facility] at 1122 EST [facility] 05/06/2022 11:23 AM EST [facility] MICROSCOPIC DESCRIPTION Microscopic examination is performed and the findings corroborate the diagnosis. 05/06/2022 11:23 AM EST [facility] Gross Description Urinary Bladder Washing, Rec'd 80ml of yellow fluid. (TP) 05/06/2022 11:23 AM EST [facility] Urine SPECIMEN FROM URINARY BLADDER / Unknown 05/05/2022 4:39 PM EST 05/05/2022 4:39 PM EST us Sandra Murrell PA-C CYTOLOGY ORDERABLES Final Result [facility] [address] [place] [phone] * (ABNORMAL) URINALYSIS (05/05/2022 4:39 PM EST) Only the most recent of11 resultswithin the time period is included. UA Color Colorless 05/05/2022 6:55 PM EST [facility] UA Appear Clear Clear 05/05/2022 6:55 PM EST [facility] UA Glucose Negative Negative mg/dL 05/05/2022 6:55 PM EST [facility] UA Ketones Negative Negative mg/dL 05/05/2022 6:55 PM EST [facility] UA Blood 1+ (0.06 - 0.1 mg/dL)(A) Negative 05/05/2022 6:55 PM EST [facility] UA pH 6.5 5.0 - 8.0 pH [...] EST [facility] Comment:Reference range rtuh d for random specimens only. UA WBC 0 0 - 4 /HPF 05/05/2022 6:55 PM EST [facility] UA RBC <1 0 - 3 /HPF 05/05/2022 6:55 PM EST [facility] UA Hyal Cast 1 0 - 2 /LPF 05/05/2022 6:55 PM EST [facility] Urine URINE SPECIMEN OBTAINED VIA STRAIGHT CATHETER / Unknown 05/05/2022 4:39 PM EST 05/05/2022 4:39 PM EST Sandra HUFF-Pavan URINE ORDERABLES Final Res ult Performing Organization Address City/[facility]/ZIP Co de Phone Number [id number] 1 [facility] , [place] [address] * (ABNORMAL) [id number] A/B (04/28/2022 6:38 AM EST) CORONAVIRUS [id number] Not Detected Not Detected 04/28/2022 7:12 AM EST [facility] Influenza A DNA Detected(A) Not Detected 04/28/2022 7:12 AM EST [facility] Influenza B DNA Not Detected Not Detected 04/28/2022 7:12 AM EST [facility] Swab BOTH ANTERIOR NARES / Unknown 04/28/2022 6:38 AM EST 04/28/2022 6:47 AM EST Narrative [facility] - 04/28/2022 7:12 AM EST This [...] and Patients: DIANDRA Fact Sheet for Providers: https://www.fda.gov/media/163642/download DIANDRA Fact Sheet for Patients: https://www.fda.gov/media/540334/download Jonas Mayorga MD MICROBIOLOGY - GENERAL ORDER LILO Final Result Performing Organization Address [facility]/ZIP Co de Phone Number [facility] [address] [place] [phone] * (ABNORMAL) EMG (02/18/2022) Impressions SEP OFFICE [...] in degree electrically. Hollis Yoo M.D. Diplomate, [place] [employer] Narrative SEP OFFICE [...] Christian MD NEUROLOGY ORDERABLES Cindy brumfield Result [facility] OFFICE * XR CHEST PA AND LATERAL [...] X-RAY, 01/26/2022 2:27 PM CLINICAL HISTORY: R05.9-Cough, [id number] COMPARISON: 10/29/2021 PROCEDURE COMMENTS: Frontal and lateral views of the chest. FINDINGS: Cardiovascular structures within normal limits. No pneumonia or effusion. No pneumothorax. Procedure Note Galdino Sosa MD - 01/26/2022 PA AND LATERAL CHEST X-RAY, 01/26/2022 2:27 PM CLINICAL HISTORY: R05.9-Cough, [id number] COMPARISON: 10/29/2021 PROCEDURE COMMENTS: Frontal and lateral [...] SEP OFFICE 12/15/2021 1:18 PM EDT Sandra [facility] POINT OF CARE IMAGING Cindy l Result [...] left-sided facet disease is present resulting in oxbj-du-bbtlyhue central canal stenosis, with left lateral recess [...] 1:06 PM CLINICAL HISTORY: M54.50-Low back pain, [id number]. COMPARISON: May 23, 2012. PROCEDURE COMMENTS: Multiplanar [...] 1:06 PM CLINICAL HISTORY: M54.50-Low back pain, [id number]. COMPARISON: May 23, 2012. PROCEDURE COMMENTS: Multiplanar [...] and left-sided facet disease is present resulting fjarzz-bv-gctqjyhr central canal stenosis, with left lateral recess stenosis potentiallyimpinging the descending left L4 nerve root 3. At L2-3, disc bulge with right-sided facet arthritis/ligamentoushypertrophy results in right lateral recess stenosis and could result in right [id number] symptoms. - Note: Radiology results need to be interpreted within a comprehensiveclinical context. If you have questions about the radiology report, please contactthe office of the ordering clinician. Mikey Christian MD [facility] [place] ORDERABLES Final Result * POCT EDIL [...] ORDE RABLES Final Result Performing Organization Address City/[facility] Co de Phone Number SEP OFFICE * CORONAVIRUS 2019 (04/16/2021 11:24 AM EST) Only the most recent of4 resultswithin the time period is included. Pathologist [facility] CORONAVIRUS [id number] Not Detected Not Detected 04/17/2021 2:30 PM EST [facility] Comment: Caution should be exercised when interpreting [...] of COVID-19. Test is performed on the Alaris Royalty platform under the FDA's Emergency Use Authorization (EUA). [employer] Provider Fact Sheet: https://www.fda.gov/media/965162/download [employer] Patient Fact Sheet: https://www.fda.gov/media/131806/download Performed at [facility] [address] [place] [address] CLIA [id number] Swab BOTH ANTERIOR NARES / Unknown 04/16/2021 11:24 AM EST 04/16/2021 11:24 AM EST Janet Vogt MD MICROBIOLOGY - GENERAL ORDERABLES Final Result Performing Organization Address City/[facility]/ZIP Co de Phone Number [facility] 1 [facility] [address] [place] [phone] * POCT EKG (04/10/2021 11:36 AM EST) [...] office of the ordering clinician. Esther Gramajo APRN IMG CT ORDERABLES Final Resu lt * TROPONIN-T HIGH SENSITIVITY 2HR (12/11/2020 2:09 PM EDT) jz-yNpltukxe-D 2HR <6 <14 ng/L 12/11/2020 2:34 PM EDT [facility] Comment:See the website [employer] for rule out [place] care pathway, conditions other than AMI that can cause elevated hs cTnT, and comparison of values from the 4th and 5th generation Dex tests. https://askmayoexpert.[facility].org/topic/clinical-answers/gnt-61873002/cpm-203 98639 hs-cTnT 2Hr Delta from Baseline 12/11/2020 2:34 PM EDT [facility] Comment:Unable to calculate, result is outside instrument's measuring range. Blood VENOUS BLOOD / Unknown Venipuncture / Unknown 12/11/2020 2:09 PM EDT 12/11/2020 2:15 PM EDT Narrative [facility] - 12/11/2020 2:34 PM EDT Ingestion of aldair doses of biotin (>5 mg/day) taken within 8 hours of drawing blood sample can interfere with this immunoassay test. Esther Gramajo DRILL OPERATOR AUTOMATIC CHEMISTRY ORDERABLES Final R esult [facility] [address] [place] [address] * CORONAVIRUS 2019 POCT (12/11/2020 12:48 PM EDT) [facility] Signature COV19 RNA POCT Negative Negative 12/11/2020 1:41 PM EDT [facility] Swab NASAL STRUCTURE / Unknown 12/11/2020 12:48 PM EDT 12/11/2020 1:21 PM EDT Narrative [facility] - 12/11/2020 1:41 PM EDT [...] management. [employer] [facility] Provider Fact Sheet: https://www.fda.gov/media/486010/download [facility] Patient Fact Sheet: https://www.fda.gov/media/152541/download us Esther Gramajo DRILL OPERATOR AUTOMATIC MICROBIOLOGY - GENERAL ORDER LILO Final Result [facility] [place] [address] * EK EKG 12 LEAD (12/11/2020 12:37 PM EDT) Only the most recent of3 resultswithin the time period is included. Anatomical Region Laterality Modality Electrocardiogra phy 12/11/2020 12:5 0 PM EDT Impressions 12/11/2020 2:[address] Test Date: 2020-12-11 Pat Name: GILBERT MOREIRA Department: DEPID Room: 20 Gender: Female Pupil Personnel Worker: Nasreen : 1945 Requested By: ESTHER Leslie Order Number: [id number] Reading MD: Dre Pardo MD Measurements Intervals [place] Rate: 61 P: -72 MI: 169 QRS: 37 QRSD: 106 T: 48 QT: 444 QTc: 448 Interpretive Statements SINUS RHYTHM NORMAL ECG NO PRIOR TRACING Electronically Signed On 12-11-2020 14:34:49 EDT by Dre Pardo MD Narrative Procedure Note Dre Pardo MD - 12/11/[address] Test Date: 2020-12-11 Pat Name: GILBERT MOREIRA Department: DEPID Room: 20 Gender: Female Pupil Personnel Worker: Nasreen : 1945 Requested By: ESTHER Leslie Order Number: [id number] Reading MD: Dre Pardo MD Measurements Intervals [place] Rate: 61 P: -72 MI: 169 QRS: 37 QRSD: 106 T: 48 QT: 444 QTc: 448 Interpretive Statements SINUS RHYTHM NORMAL ECG NO PRIOR TRACING Electronically Signed On 12-11-2020 14:34:49 EDT by Dre Pardo MD Estehr Gramajo DRILL OPERATOR AUTOMATIC IMG ECG ORDERABLES Final Res ult * TROPONIN-T HIGH SENSITIVITY BASELINE W/ REFLEX (12/11/2020 12:02 PM EDT) Only the most recent of5 resultswithin the time period is included. sw-bGpjshmot-F <6 <14 ng/L 12/11/2020 2:06 PM EDT [facility] Comment:See the website [employer] for rule out [place] care pathway, conditions other than AMI that can cause elevated hs cTnT, and comparison of values from the 4th and 5th generation Dex tests. https://askmayoexpert.[facility].org/topic/clinical-answers/gnt-92252496/cpm-203 97116 Blood VENOUS BLOOD / Unknown Venipuncture / Unknown 12/11/2020 12:02 PM EDT 12/11/2020 1:52 PM EDT Narrative [facility] - 12/11/2020 2:06 PM EDT Ingestion of aldair doses of biotin (>5 mg/day) taken within 8 hours of drawing blood sample can interfere with this immunoassay test. Esther Gramajo DRILL OPERATOR AUTOMATIC CHEMISTRY ORDERABLES Final R [facility] Performing Organization Address City/[facility]/[place] [address] * LIPASE LEVEL (12/11/2020 12:02 PM EDT) Only the most recent of2 resultswithin the time period is included. Lipase Lvl 48 13 - 60 U/L 12/11/2020 1:54 PM EDT [facility] Blood VENOUS BLOOD / Unknown Venipuncture / Unknown 12/11/2020 12:02 PM EDT 12/11/2020 12:18 PM EDT Esther Gramajo DRILL OPERATOR AUTOMATIC CHEMISTRY ORDERABLES Final R esult [facility] [address] [place] [address] * SCANNED RHYTHM STRIPS (12/09/2020 10:22 AM EDT) Anatomical Region Laterality Modality Other 12/09/2020 10:2 2 AM EDT us Unknown Provider IMG ECG ORDERABLES Final Result * Peripheral Block by Anesthesia (12/08/2020 2:08 PM EDT) Narrative [facility] - 12/08/2020 2:08 PM EDT Denae Galarza MD 12/08/2020 2:09 PM Peripheral Block by Anesthesia Procedure Date/Time: 12/08/2020 1:51 PM Patient location during procedure: OR Reason for block: at surgeon's request and post-op pain management Staff and Pre-procedure checks Anesthesiologist: Denae Galarza MD Resident/UTILITY WORKER DRIVER: Laura Holden CRNA Performed: anesthesiologist Preanesthetic Checklist: [...] of the block is attached/scanned to the [facility] chart. us Denae Galarza MD ANESTHESIA ORDERABLES Edited R esult - Final [facility] [address] [place] [address] * Peripheral Block by Anesthesia (12/08/2020 2:06 PM EDT) Narrative [facility] - 12/08/2020 2:06 PM EDT Denae Galarza MD 12/08/2020 2:08 PM Peripheral Block by Anesthesia Procedure Date/Time: 12/08/2020 1:52 PM Patient location during procedure: OR Reason for block: at surgeon's request and post-op pain management Staff and Pre-procedure checks Anesthesiologist: Denae Galarza MD Resident/UTILITY WORKER DRIVER: Laura Holden CRNA Performed: anesthesiologist Preanesthetic Checklist: [...] visualized. Ultrasound image documentation is attached/scanned in [facility] chart.) Ultrasound probe: linear Ultrasound needle approach: [...] of the block is attached/scanned to the [facility] chart. us Denae Galarza MD ANESTHESIA ORDERABLES Final Re sult [facility] [address] [place] [address] * PATHOLOGY TISSUE REQUEST (12/08/2020 1:55 PM EDT) Only the most recent of2 resultswithin the time period is included. CASE REPORT Surgical Pathology Case: [id number] Authorizing Provider: Geoff Gan MD Collected: 12/08/2020 1355 Ordering Location: ED SAME DAY SURGERY Received: 12/09/2020 1000 Pathologist: Claudia Issa MD Specimen: Gallbladder, GALLBLADDER 12/10/2020 10:14 AM EDT [facility] FINAL DIAGNOSIS Gallbladder, cholecystectomy: - Acute and chronic cholecystitis. - Cholelithiasis. 12/10/2020 10:14 AM EDT [facility] at 1014 EDT GROSS DESCRIPTION The [...] identified. The wall thickness averages 0.1 cm. Drum Carrier sections, to include the cystic duct margin, en face are submitted in cassette A1. BR 12/09/2020 11:29 AM 12/10/2020 10:14 AM EDT [facility] MICROSCOPIC DESCRIPTION Microscopic examination is performed and the findings corroborate the diagnosis. 12/10/2020 10:14 AM EDT [facility] EMBEDDED IMAGES 12/10/2020 10:14 AM EDT [facility] Tissue ENTIRE GALLBLADDER / Unknown 12/08/2020 1:55 PM EDT 12/09/2020 10:00 AM EDT us Geoff Gan MD PATHOLOGY ORDERABLES Final Re sult Performing Organization Address City/[facility] de Phone Number [facility] [address] [place] [address] [place] [address] * INTRAOP AIRWAY PLACEMENT (12/08/2020 1:46 PM EDT) Narrative [facility] - 12/08/2020 1:46 PM EDT Laura [...] attempts: 1 Attempt 1 by: FARIBA Title: UTILITY WORKER DRIVER us Denae Galarza MD [place] ANESTHESIA Final Result [facility] [address] [place] [address] * (ABNORMAL) COMPLIANCE PANEL, URINE (09/19/2020 10:54 AM EDT) [facility] Medications Expected Gabapentin 08/31 7:49 AM EDT [facility] Creatinine Ur >25.0 mg/dL 09/22/2020 7:49 AM EDT [facility] Comment: Greater than 20: Consistent with valid sample Greater than 2 but less than 20: Possible dilution Less than 2: Questionable valid sample THC <10 Cutoff 10 ng/mL ng/mL 09/22/2020 7:49 AM EDT [facility] Comment:5-uwtknmn-npfpyecriy cannabinol; does not distinguish between prescribed and [...] 09/22/2020 7:49 AM EDT [facility] Comment:e.g.,Rohypnol, Narco zep 7-Aminoflunitrazepam <50 Cutoff 50 ng/mL ng/mL 09/22/2020 7:49 AM EDT [facility] Comment:Metabolite of Flunit razepam Flurazepam <50 Cutoff 50 ng/mL ng/mL 09/22/2020 7:49 AM EDT [facility] Comment:e.g., Dalmane Hydroxyethylflurazepam <50 Cutoff 50 ng/mL ng/mL 09/22/2020 7:49 AM EDT [facility] Comment:Metabolite of Fluraz epam Lorazepam <50 Cutoff 50 ng/mL ng/mL 09/22/2020 7:49 AM EDT [facility] Comment:e.g., Ativan Lorazepam Glucuronide <50 Cutoff 50 [...] 09/22/2020 7:49 AM EDT [facility] Comment:Metabolite of Temaze candie and Diazepam Triazolam <50 Cutoff 50 ng/mL ng/mL 09/22/2020 7:49 AM EDT [facility] Comment:e.g., Halcion alpha-hydroxytriazolam <50 Cutoff 50 ng/mL ng/mL 09/22/2020 7:49 AM EDT [facility] Comment:Metabolite of Triazo lopez Buprenorphine <5 Cutoff 5 ng/mL ng/mL 09/22/2020 7:49 AM EDT [facility] Comment:e.g., Suboxone, Subu ravindra,Sublocade, Buprenex Buprenorphine Glucuronide <10 Cutoff 10 ng/mL ng/mL 09/22/2020 7:49 AM EDT [facility] Comment:Buprenorphine Metabo lite Norbuprenorphine <5 Cutoff 5 ng/mL ng/mL 09/22/2020 7:49 AM EDT [facility] Comment:Buprenorphine Metabo lite Norbuprenorphine Glucuronide <10 Cutoff 10 ng/mL ng/mL 09/22/2020 7:49 AM EDT [facility] Comment:Buprenorphine Metabo lite Benzoylecgonine <50 Cutoff 50 ng/mL ng/mL 09/22/2020 7:49 AM EDT [facility] Comment:Cocaine Metabolite Fentanyl <1 Cutoff 1 ng/mL ng/mL 09/22/2020 7:49 AM EDT [facility] Comment:e.g.,Duragesic, Oral et, Actiq, Sublimaze, Innovar, Lazanda Norfentanyl <1 Cutoff 1 ng/mL ng/mL 09/22/2020 7:49 AM EDT [facility] Comment:Metabolite of Fentan yl 6-Monoacetylmorphine (6MAM) <10 Cutoff 10 ng/mL ng/mL 09/22/2020 7:49 AM EDT [facility] Comment:Metabolite of Heroin ; Morphine is expected Methadone <50 Cutoff 50 ng/mL ng/mL 09/22/2020 7:49 AM EDT [facility] Comment:e.g., Dolophine, Met hadose, Amidone EDDP <50 Cutoff 50 ng/mL ng/mL 09/22/2020 7:49 AM EDT [facility] Comment:Methadone Metabolite Carisoprodol <100 Cutoff 100 ng/mL ng/mL 09/22/2020 7:49 AM EDT [facility] Comment:e.g., Soma Meprobamate <100 Cutoff 100 ng/mL ng/mL 09/22/2020 7:49 AM EDT [facility] Comment:e.g., Omaha, Equa nil, Micrainin, Equagesic; Metabolite of Carisoprodol Codeine <50 Cutoff 50 ng/mL ng/mL 09/22/2020 7:49 AM EDT [facility] Comment:e.g., Acetaminophen w/Codeine, Tylenol3 w/ Codeine Codeine Glucuronide <50 Cutoff 50 ng/mL ng/mL 09/22/2020 7:49 AM EDT [facility] Comment:Metabolite of Codein e Meperidine <50 Cutoff 50 ng/mL ng/mL 09/22/2020 7:49 AM EDT [facility] Comment:e.g., Demerol, Pethi dine Normeperidine <50 Cutoff 50 ng/mL ng/mL 09/22/2020 7:49 AM EDT [facility] Comment:Metabolite of Meperi dine Morphine <50 Cutoff 50 ng/mL ng/mL 09/22/2020 7:49 AM EDT [facility] Comment:e.g., MS Contin, Tiffanie anol; Metabolite of Codeine and Heroin; may reflect poppy seed ingestion Fikkbcrw-2-Aofasgiyvay <25 Cutoff 25 ng/mL ng/mL 09/22/2020 7:49 AM EDT [facility] Comment:Metabolite of Morphi ne. Lobcvohm-0-Xxggsrtwwdh <25 Cutoff 25 ng/mL ng/mL 09/22/2020 7:49 AM EDT [facility] Comment:Metabolite of Morphi ne. Naloxone <25 Cutoff 25 ng/mL ng/mL 09/22/2020 7:49 AM EDT [facility] Comment:e.g., Narcan, Evzio Hydrocodone <50 Cutoff 50 ng/mL ng/mL 09/22/2020 7:49 AM EDT [facility] Comment:e.g., Lorcet, Lortab , Vicodin, Borger; Minor Metabolite of Codeine Dihydrocodeine <50 Cutoff 50 ng/mL ng/mL 09/22/2020 7:49 AM EDT [facility] Comment:e.g., Didrate, Parzo ne, Parlor, Synalgos; Metabolite of Hydrocodone Norhydrocodone <50 Cutoff 50 ng/mL ng/mL 09/22/2020 7:49 AM EDT [facility] Comment:Metabolite of Hydroc odone Hydromorphone <50 Cutoff 50 ng/mL ng/mL 09/22/2020 7:49 AM EDT [facility] Comment:e.g., Dilaudid; also Metabolite of Hydrocodone and Minor Metabolite of Morphine Hydromorphone Glucuronide <50 Cutoff 50 ng/mL ng/mL 09/22/2020 7:49 AM EDT [facility] Comment:Metabolite of Hydrom orphone Oxycodone <50 Cutoff 50 ng/mL ng/mL 09/22/2020 7:49 AM EDT [facility] Comment:e.g., Oxycontin, Per cocet, Endocet, Percodan, Roxicet Noroxycodone <50 Cutoff 50 ng/mL ng/mL 09/22/2020 7:49 AM EDT [facility] Comment:Metabolite of Oxycod one Oxymorphone <50 Cutoff 50 ng/mL ng/mL 09/22/2020 7:49 AM EDT [facility] Comment:e.g., Opana; Metabol ite of Oxycodone Oxymorphone Glucuronide <50 Cutoff 50 ng/mL ng/mL 09/22/2020 7:49 AM EDT [facility] Comment:Metabolite of Oxycod one Noroxymorphone <50 Cutoff 50 ng/mL ng/mL 09/22/2020 7:49 AM EDT [facility] Comment:Metabolite of Oxycod one, and Oxymorphone, Noroxycodone Metabolite Tramadol <50 Cutoff 50 ng/mL ng/mL 09/22/2020 7:49 AM EDT [facility] Comment:e.g., Ultram, ConZip T-Icdjwsbfg-sss-Tramadol <50 Cutoff 50 ng/mL ng/mL 09/22/2020 7:49 AM EDT [facility] Comment:Metabolite of Tramad ol Tapentadol <50 Cutoff 50 ng/mL ng/mL 09/22/2020 7:49 AM EDT [facility] Comment:Nucynta Tapentadol-Glucuronide <50 Cutoff 50 ng/mL ng/mL 09/22/2020 7:49 AM EDT [facility] Comment:Metabolite of Tapent adol Urine STRUCTURE OF URINARY TRACT PROPER / Unknown 09/19/2020 10:54 AM EDT 09/19/2020 10:54 AM EDT Narrative [facility] - 09/22/2020 7:49 AM EDT The absence of expected drug(s), and/or drug metabolite(s), may indicate non-compliance, diluted or adulterated urine, poor drug absorption, concentration of drug below the cut-off, timing of specimen collection relative to administration of drug, or limitations of testing. If results do not fit clinical expectations, please reach out to the Toxicology department at [phone]. Specimens are held for 7 days. This test was developed, and its performance characteristics determined by [facility] ([facility]). It has not been cleared or approved by the FDA. This test is used for clinical purposes. It should not be regarded as investigational or for research. [facility] is certified under the Clinical Laboratory Improvement Amendments (CLIA) as qualified to perform high complexity clinical laboratory testing. Severo Harrell DO URINE ORDERABLES Final Result [facility] [address] [facility] , [address] [place] [id number] * MRI ANKLE LEFT WO CONTRAST (09/03/2020 [...] joint. 3. Mild chronic plantar fasciitis. - Oneal Carrera DPLauryn IMG MRI ORDERABLES Final Resul t * INTRAOP AIRWAY PLACEMENT (08/27/2020 12:39 PM EDT) Narrative [facility] - 08/27/2020 12:39 PM EDT Yara Torres 08/27/2020 12:39 PM Intraop Airway Placement: Airway type: Nasal cannula salter Oumar Weiss MD [place] ANESTHESIA Final Res ult [facility] [address] [place] [id number] * (ABNORMAL) VITAMIN B12/ FOLIC ACID (08/22/2020 2:29 PM EDT) Vitamin B12 >1,600(H) 232-1,245 pg/mL 08/22/2020 6:33 PM EDT [facility] Folate >16.00 >=4.80 ng/mL 08/22/2020 6:33 PM EDT [facility] Blood Venipuncture / Unknown 08/22/2020 2:29 PM EDT 08/22/2020 2:29 PM EDT Narrative [facility] - 08/22/2020 6:33 PM EDT Ingestion of aldair doses of biotin (>5 mg/day) taken within 8 hours of drawing blood sample can interfere with this immunoassay test. us Janet Vogt MD CHEMISTRY ORDERABLES Fi nal Result Performing Organization Address [facility] Co de Phone Number [facility] 1 [facility] , [place] [address] * TSH REFLEX (08/22/2020 2:29 PM EDT) Only the most recent of2 resultswithin the time period is included. TSH Reflex 1.630 0.270 - 4.200 mcIU/mL 08/22/2020 6:19 PM EDT [facility] Blood Venipuncture / Unknown 08/22/2020 2:29 PM EDT 08/22/2020 2:29 PM EDT Narrative [facility] - 08/22/2020 6:19 PM EDT Ingestion of aldair doses of biotin (>5 mg/day) taken within 8 hours of drawing blood sample can interfere with this immunoassay test. Janet Vogt MD CHEMISTRY ORDERABLES nal Result Performing Organization Address [facility] Co de Phone Number [facility] 1 [facility] , [place] [address] * MAGNESIUM LEVEL (08/22/2020 2:29 PM EDT) [facility] Magnesium 2.0 1.6 - 2.4 mg/dL 08/22/2020 6:07 PM EDT [facility] Blood VENOUS BLOOD / Unknown Venipuncture / Unknown 08/22/2020 2:29 PM EDT 08/22/2020 2:29 PM EDT Janet Vogt MD CHEMISTRY ORDERABLES Fi nal Result Performing Organization Address [facility] Co de Phone Number [facility] 1 [facility] , [place] [address] * IOL BIOMETRY - OU [...] ORDERAB LES Final Result Performing Organization Address [facility] de Phone Number SEP OFFICE * INTRAOP AIRWAY PLACEMENT (07/30/2020 2:24 PM EDT) Narrative [facility] - 07/30/2020 2:24 PM EDT Laura Holden CRNA 07/30/2020 2:24 PM Intraop Airway Placement: Induction type: IV Airway type: Nasal cannula salter Juan Lynn MD [place] ANESTHESIA Final R esult Performing Organization Address [facility] Phone Number [facility] [address] [place] [address] * OCT, OPTIC NERVE - OU - [...] ORDERAB LES Final Result Performing Organization Address [facility] de Phone Number SEP OFFICE * US RENAL AND BLADDER (04/22/2020 1:25 PM EST) Anatomical Region Laterality Modality Abdomen, Pelvis Ultrasound 04/22/2020 1:25 PM EST Impressions 04/22/2020 1:38 PM EST Bladder post void volume 11 mL. - Narrative 04/22/2020 1:38 PM EST US KIDNEYS AND BLADDER, 04/22/2020 1:25 PM CLINICAL HISTORY: R33.9-Retention of urine, [id number]-CM. COMPARISON: None. PROCEDURE COMMENTS: Routine sonographic evaluation of the kidneys and bladder with players club representative images and strategic sourcing manager notes sent to PACS for radiologist review. [...] 1:25 PM CLINICAL HISTORY: R33.9-Retention of urine, [id number]-CM. COMPARISON: None. PROCEDURE COMMENTS: Routine sonographic evaluation of the kidneys andbladder with players club representative images and strategic sourcing manager notes sent to PACS forradiologist review. FINDINGS: [...] volume 11 mL. - Heydi Merrill MD [facility] US ORDERABLES Final Resu lt * (ABNORMAL) POCT EDIL SARS ANTIGEN (02/21/2020 2:02 PM EDT) SARS Antigen Positive(A ) Negative SEP OFFICE Lot Number SEP OFFICE Expiration Date SEP OFFICE SeriAl # SEP OFFICE Control Line Yes YES/NO SEP OFFICE 02/21/2020 2:02 PM EDT us Janet Vogt MD POINT OF CARE TEST [...] bone density assessment. Study was performed on Mem[employer]aze 5. Bone Density: Region BMD T-score Z-score [...] hip fracture. Reported by: Sapphire Hull PA-C, OSMEL on 01/18/2020 1:11:00 PM. Janet Vogt MD IM DEXA ORDERABLES Fin al Result * SEDIMENTATION RATE AUTOMATED (01/08/2020 1:53 PM EDT) Sed Rate 6 0 - 30 mm/hr 01/08/2020 6:21 PM EDT [facility] Blood VENOUS BLOOD / Unknown Venipuncture / Unknown 01/08/2020 1:53 PM EDT 01/08/2020 1:53 PM EDT us Severo Harrell DO HEMATOLOGY ORDERABLES Final Res ult [facility] [address] [place] [address] * EK EKG CVMHU SCREENING (12/19/2019 12:15 PM EDT) Anatomical Region Laterality Modality Electrocardiogra phy 12/19/2019 7:34 AM EDT Impressions 12/20/2019 1:18 PM EDT [facility] [facility] Test Date: 2019-12-19 Pat Name: GILBERT SPENCERLIN Department: DEPID Room: Gender: Female Pupil Personnel Worker: : 1945 Requested By: LEONCIO SANDOVAL Order Number: [id number] Reading MD: Jorge Parker MD Interpretive Statements No Atrial Fibrillation detected at the time of screening. Electronically Signed On 12-20-2019 13:18:04 EDT by Jorge Parker MD Narrative Procedure Note Anderson Parker MD - 12/20/2019 IMPRESSION [facility] Test Date: 2019-12-19 Pat Name: GILBERT LILLIE Department: DEPID Room: Gender: Female Pupil Personnel Worker: : 1945 Requested By: LEONCIO CAPUTO Order Number: [id number] Reading MD: Jorge Parker MD Interpretive Statements No Atrial Fibrillation detected at the time of screening. Electronically Signed On 12-20-2019 13:18:04 EDT by Jorge Parker MD us Leoncio Haywood DRILL OPERATOR AUTOMATIC IMG CVMHU EKG DIANA FREEDMAN Final Result * [facility] VASCULAR CVMHU SCREENING SINGLE EXAM (12/19/2019 12:14 [...] is within normal ranges described by the [place] [employer] guidelines. Narrative Procedure Note Arthur Luna MD - 12/19/2019 IMPRESSION Findings & Recommendations Mild plaque seen during carotid artery screening. Recommend to follow upwith primary care physician to discuss risk modification and maybe rescreened in one year. The blood pressure taken at this screening is within normal rangesdescribed by the [place] [employer] guidelines. Leoncio Haywood DRILL OPERATOR AUTOMATIC IMG VASCULAR ORDER LILO Final Result * GMED COLONOSCOPY (07/11/2019 12:30 PM EDT) 07/11/2019 12:3 0 PM EDT Impressions [facility] - 07/11/2019 1:00 PM EDT Erythema in the distal rectum. (Biopsy). Otherwise normal colonoscopy. Abnormal digital rectal exam (large external hemorrhoids). Plan: No need for further screening colonoscopies due to age. This section is an excerpt of the full report. Gerardo Rahman MD GI PROCEDURE ORDERABLES Fi nal Result [facility] [address] [place] [address] * (ABNORMAL) POCT URINALYSIS DIPSTICK (05/24/2019 1:49 PM EST) Only the most recent of6 resultswithin the time period is included. Color, UA yellow CLEAR,YELL OW,ORANGE, RUST SEP OFFICE Clarity, UA clear CLEAR,CLOU DY SEP OFFICE Glucose, UA neg G/DL% SEP OFFICE Bilirubin, UA neg POS/NEG SEP OFFICE Ketones, UA neg POS/NEG SEP licensed midwife Grav, UA 1.010 1.001 - 1.035 G/DL [...] EST Impressions 03/12/2019 11:08 AM EST Negative (CFU-Mhsdglap-0) ~ RECOMMENDATION: Routine screening mammogram in 1 [...] for screening mammogram for malignant neoplasm of xxghlr-BUF-04-CM ~ MM MAMMO DIG SCREEN CAD BILAT [...] for screening mammogram for malignant neoplasm of spzesv-PDW-66-CM ~ MM MAMMO DIG SCREEN CAD BILAT Bilateral CC and MLO view(s) were taken. The breast tissue is almost entirely fat. Prior study comparison: Compared with prior studies the most recentbeing 01/31/18, 10/15/16 No mammographic evidence of malignancy. ~ IMPRESSION: Negative (FDS-Wgudvbfs-9) ~ RECOMMENDATION: Routine screening mammogram in 1 [...] was reviewed by a Radiologist and CAD. us Janet Vogt MD IMG MAMMOGRAPHY ORDERAB LES Final Result * (ABNORMAL) POCT URINALYSIS AUTOMATED (02/24/2019 1:41 PM EDT) Color, UA Yellow CLEAR,YEL LOW,ORANG E,RUST SEP OFFICE Clarity, UA Clear CLEAR,KARIE UDY SEP OFFICE Glucose, UA neg G/DL% SEP OFFICE Bilirubin, UA neg POS/NEG SEP OFFICE Ketones, UA neg POS/NEG SEP licensed midwife Grav, UA 1.015 1.001 - 1.035 G/DL SEP OFFICE Blood, UA 1+ POS/NEG SEP OFFICE pH, UA 6.0 5.0 - 8 SEP OFFICE Protein, UA trace POS/NEG SEP OFFICE Urobilinogen, UA neg 0.2 - 1.0 MG/DL SEP OFFICE Leukocytes, UA trace POS/NEG SEP OFFICE Nitrite, UA neg POS/NEG SEP OFFICE Appear BF Clear SEP OFFICE Lot Number [id number] SEP OFFICE Expiration Date 11/08/2020 SEP OFFICE SeriAl # SEP OFFICE Urine 02/24/2019 1:41 PM EDT us Flaca Aguila MD POINT OF CARE TEST [...] 11/23/2018 10:17 AM CLINICAL HISTORY: K59.01-Slow transit jwubjiilruct-ENQ-34-CM COMPARISON: None. PROCEDURE COMMENTS: AP view(s) of the abdomen per protocol. FINDINGS: Bowel gas pattern nonspecific. Stool burden not atypical. No small bowel distention. No organomegaly or mass. No abnormal calcifications. Procedure Note Galdino Sosa MD - 11/23/2018 CR, ABDOMEN AP, 11/23/2018 10:17 AM CLINICAL HISTORY: K59.01-Slow transit jmtboxwiayln-UGS-40-CM COMPARISON: None. PROCEDURE COMMENTS: AP view(s) of [...] and Data System) is endorsed by the [place] [employer]. CAD-RADS grading is applied to vessels 1.5mm diameter and greater only. Link to source document. https://cdn.Jellynote/scct.org/resource/resmgr/cad-rads/scct_jcct_cad-rads.pdf - - Narrative 09/20/2018 12:[address] CORONARY ANGIOGRAM, 09/20/2018 11:17 AM CLINICAL HISTORY: Z13.9-Encounter for screening, wzbguclcyyv-HTQ-53-CM COMPARISON: None. PROCEDURE COMMENTS: Heart rate control using Metoprolol as documented in EPIC. 0.4mg of SL NTG given. 75 mL Isovue 370 intravenous contrast material. CCTA prospective ECG-gated technique for coronary artery visualization. Interactive 3-D postprocessing done by the reviewing physician on a LiveStub workstation, with one or more of the [...] 11:17 AM CLINICAL HISTORY: Z13.9-Encounter for screening, zwlxatdldvg-CJJ-61-CM COMPARISON: None. PROCEDURE COMMENTS: Heart rate control using Metoprolol as documented inEPIC. 0.4mg of SL NTG given. 75 mL Isovue 370 intravenous contrast material.CCTA prospective ECG-gated technique for coronary artery visualization.Interactive 3-D postprocessing done by the reviewing physician on a LiveStub workstation,with one or more of the following: [...] Disease-Reporting and Data System) is endorsedby the [place] College [employer]iology. CAD-RADS grading is applied to vessels1.5mm diameter and greater only. Link to source document. https://cdn.[employer].BizSlate/scct.org/resource/resmgr/cad-rads/scct_jcct_cad-rads.pdf - - Manav Batista MD IMG CT ORDERABLES Final Res ult * CREATININE ISTAT (09/20/2018 10:36 AM EDT) Creatinine-iST AT 1.0 0.6 - 1.3 mg/dL 09/20/2018 10:38 AM EDT [facility] Blood BLOOD SPECIMEN / Unknown 09/20/2018 10:36 AM EDT 09/20/2018 10:38 AM EDT us Manav Batista MD POINT OF CARE TEST ORDERABL ES Final Result Performing Organization Address City/[facility]/ZIP Co de Phone Number [facility] [address] [place] [address] * [facility] VISCERAL VASCULAR COMPLETE (07/03/2018 11:27 AM EST) [...] IMG VASCULAR ORDERABLES Final Result * EXTRA MINT MANISHA MENENDEZ (06/14/2018 11:56 PM EST) Only the most recent of2 resultswithin the time period is included. Blood VENOUS BLOOD / Unknown Venipuncture / Unknown 06/14/2018 11:56 PM EST 06/14/2018 11:58 PM EST us Sameer Coffey MD CHEMISTRY ORDERABLES Final Resu lt [facility] [address] [place] [address] * EXTRA LAVENDER (06/14/2018 11:56 PM EST) Only the most recent of2 resultswithin the time period is included. Blood VENOUS BLOOD / Unknown Venipuncture / Unknown 06/14/2018 11:56 PM EST 06/14/2018 11:58 PM EST Sameer Coffey MD HEMATOLOGY ORDERABLES Final Res ult Performing Organization Address [facility] Phone Number [address] [address] * EXTRA LIGHT BLUE (06/14/2018 11:56 PM EST) Only the most recent of2 resultswithin the time period is included. Blood VENOUS BLOOD / Unknown Venipuncture / Unknown 06/14/2018 11:56 PM EST 06/14/2018 11:58 PM EST Sameer Coffey MD HEMATOLOGY ORDERABLES Final Res ult Performing Organization Address [facility] Phone Number [address] [address] * GRUBBS VISUAL FIELD - OU - [...] ORDERAB LES Final Result Performing Organization Address [facility] Phone Number SEP OFFICE * EC ECHOCARDIOGRAM [...] time period is included. ECG INTERPRET NSR [facility] CONCRETE PIPE MACHINE OPERATOR APPROVED Yes [facility] 04/25/2018 7:24 AM EST Narrative [facility] - 04/25/2018 10:01 AM EST MI 0.23 QRS 0.09 RR 1.02 QT 0.42 QTc 0.41 See Clinical Report link for waveform capture Unknown Provider POINT OF CARE CARDIOLOGY Final Result [facility] [address] [place] [address] * CT ANGIOGRAM HEAD AND NECK W [...] findings were urgently telephoned to [facility] nurse Claire by Dr. Sanchez at 04/24/2018 10:30 PM. Binh Morales MD IMG CT ORDERABLES Final Resu lt * (ABNORMAL) GLUCOSE METER POC (04/24/2018 10:01 PM EST) Only the most recent of2 resultswithin the time period is included. [facility] Glucose Meter POC 155(H) 70 - 100 mg/dL 04/24/2018 10:02 PM EST [facility] Sample Type Capillary 04/24/2018 10:02 PM EST [facility] Patient Status Non-Critical Patient 04/24/2018 10:02 PM EST [facility] Blood BLOOD SPECIMEN / Unknown 04/24/2018 10:01 PM EST 04/24/2018 10:02 PM EST Sameer Elizondo MD POINT OF CARE TEST ORDERABLES Fi nal Result [facility] [address] [place] [address] * DEXA SCAN (10/07/2017) Impressions SEP OFFICE [...] Minimal joint effusion. us Geoff Dozier MD [facility] MRI ORDERABLES Final Result * MRI LUMBAR [...] T1 and T2-weighted sequences obtained with and dwsetrg93 mL MultiHance on 3.0 Brunilda magnet. FINDINGS: [...] most narrowed; mild to moderate Geoff Gant [facility] MRI ORDERABLES Final Result * SURGICAL PATHOLOGY REPORT (06/17/2011 6:44 PM EST) Surgical Pathology Report PATIENT NAME:GILBERT MOREIRA Surgical Pathology Report Accession Number Collected Date/Time Received Date/Time [id number] 06/17/11 18:44 EST 06/17/11 18:44 EST Diagnosis 1) Ascending colon: - Non-Dysplastic Mucosal Polyps, consistent with Hyperplastic polyps. 2) Rectum: - Non-Dysplastic Mucosal Polyps, consistent with Hyperplastic polyps. CESAR MASON MD (Electronically signed by) Verified: 06/22/2011 TSG Sign Out Location Comment CPT CODE 23375 x 2 Clinical Information Screening colonoscopy; personal [...] dimension. Entirely submitted in one cassette. /HK DRB/MT Microscopic Description Microscopic examination is performed and the findings corroborate the diagnosis. _ [facility] 06/17/2011 6:44 PM EST us Soha Lau PATHOLOGY ORDERABLES Final Resul t [facility] [address] [place] [address] * DX VERTEBRAL FRACTURE ASSESSMENT (05/26/2010 12:54 [...] via vertebral fracture assessment. Kat Timmons P.A.-C., [facility], CCD/Colton Wisdom M.D., [facility], CCD Procedure [...] studies. IMPRESSION- No radiographic evidence of malignancy (PUB-Bxrmtstf-7) RECOMMENDATION- Routine screening mammogram in 1 year. * The patient with a palpable abnormality, unexplained by breast imaging, should be managed on clinical basis by the attending physician. * Breast imaging has a false negative rate of 15%. * The patient was notified by mail of the results of this examination. The mammogram was reviewed by a Radiologist and CAD. Driver License Examiner- GIBSON Cantu Physician- CAROLINA OATES MD Released Date Time- 07/15/08 1726 Procedure Note Carolina Oates III - 03/11/2010 Procedure-MM DIG SCR TAVARES PANEL W/CAD MM DIGITAL SCR BILAT PANEL Bilateral CC and MLO view(s) were taken. Prior study comparison- October 05, 2005, bilateral screening mammogram with CAD. The breast tissue is almost entirely fat. No significant changes when compared with prior studies. IMPRESSION- No radiographic evidence of malignancy (NMC-Ckxlpvyq-9) RECOMMENDATION- Routine screening mammogram in 1 year. * The patient with a palpable abnormality, unexplained by breast imaging, should be managed on clinical basis by the attending physician. * Breast imaging has a false negative rate of 15%. * The patient was notified by mail of the results of this examination. The mammogram was reviewed by a Radiologist and CAD. Driver License Examiner- GIBSON Cantu Physician- CAROLINA OATES MD Released Date Time- 07/15/08 1726 Maxime Araiza MD [facility] Final Result * EK [...] in blood pressure. Clinical correlation is recommended. Driver License Examinerfabio Cantu Physician- JARED HOLLIDAY M.D. Released Date [...] in blood pressure. Clinical correlation is recommended. Driver License Examiner- DMITRIY Cantu Physician- JARED HOLLIDAY M.D. Released Date Time- 07/17/08908 Maxime Araiza MD [facility] AL Final Result * [...] each standard deviation decline in bone density. Driver License Examiner- GIBSON Cantu Physician- CAROLINA OATES MD Released Date Time- 07/11/082006 Procedure Note Carolina Oates III - 07/10/2009 BASE Study- Bone densitometry was performed on [employer] equipment. No comparisons available. CLINICAL INDICATIONS- Patient [...] each standard deviation decline in bone density. Driver License Examiner- GIBSON Cantu Physician- CAROLINA OATES MD Released Date Time- 07/11/082006 Maxime Araiza MD [facility] Final Result * MM [...] studies. IMPRESSION- No radiographic evidence of malignancy (DHW-Hcfvifqn-5) RECOMMENDATION- Routine screening mammogram in 1 year. * The patient with a palpable abnormality, unexplained by breast imaging, should be managed on clinical basis by the attending physician. * Breast imaging has a false negative rate of 15%. * The patient was notified by mail of the results of this examination. The mammogram was reviewed by a Radiologist and CAD. Driver License Examiner- GIBSON Cantu Radiologist- PRASHANT MENDIOLA MD Released Date Time- 10/06/05 1111 Procedure Note RoxiePrashant - 07/09/2009 Procedure-WW MAMMO SCREEN W/CAD II PANEL Reason for exam- screening. Screening Mammogram With CAD Bilateral CC and MLO view(s) were taken. Prior study comparison- January 17, 2004, bilateral screening mammogram. January 04, 2002, bilateral screening mammogram. There are scattered fibroglandular densities. No significant changes when compared with prior studies. IMPRESSION- No radiographic evidence of malignancy (FHB-Krdrvkht-3) RECOMMENDATION- Routine screening mammogram in 1 year. * The patient with a palpable abnormality, unexplained by breast imaging, should be managed on clinical basis by the attending physician. * Breast imaging has a false negative rate of 15%. * The patient was notified by mail of the results of this examination. The mammogram was reviewed by a Radiologist and CAD. Driver License Examiner- GIBSON Cantu Radiologist- PRASHANT MENDIOLA MD Released Date Time- 10/06/05 1111 Roderick Huynh MD [facility] Final Result Visit Diagnoses Diagnosis Start [...] initial encounter 01/18/2019 Coronary artery disease involving chevak coronary artery of chevak heart without angina pectoris 01/25/2019 Mixed hyperlipidemia [...] Other constipation 04/05/2019 Coronary artery disease involving chevak coronary artery of che[place] heart without angina pectoris 04/12/2019 Heart murmur [...] unspecified hyperlipidemia 08/19/2020 Coronary artery disease involving chevak coronary artery of chev[place] heart without angina pectoris 08/19/2020 Heart murmur [...] unspecified hyperlipidemia 01/19/2021 Coronary artery disease involving chevak coronary artery of chev[place] heart without angina pectoris 01/19/2021 Nonobstructive atherosclerosis of coronary artery 01/19/2021 Irritable bowel syndrome with constipation Irritable bowel syndrome 02/02/2021 Gastroesophageal reflux disease, unspecified whether esophagitis present 02/02/2021 Chronic cholecystitis 02/02/2021 Coronary artery disease involving chevak coronary artery of chevak heart without angina pectoris 03/05/2021 Heart murmur [...] intervertebral disc 07/27/2021 Coronary artery disease involving chevak coronary artery of chevak heart without angina pectoris 07/30/2021 Essential hypertension [...] On track( 021 1:53 PM EDT) Page Montgomery, RN Care Teams Antique Dealer Relationship Specialty Start Date End Date Na Ang MD [address] [phone] Consulting Physician Ophthalmology 07/10/20
--- OUTSIDE RECORDS SUMMARY | 2024-12-31 03:19 | XMS_ITS | Encounter Summary ---
Author Organization Healthcare Address [address] [place] [address] Care Team Providers Care Cashier Receptionist Name Role Phone Leroy Gordon Shae VU Primary Care Provider [phone] Stefan Lennon MD Unavailable [phone] Vikas Green MD Unavailable [phone] Encounter Details Date Type Department Care Team ([facility] st Contact Info) Description 11/08/2024 Telephone [facility] [address], [address] [place] [address] Corrina Jarvis PharmD [address] [place] [address] Social History Tobacco Use Types [...] clinic know if any other concerns arise. Corrina Rome PharmD, BCACP Clinical Pharmacist [facility] [address] [place] [address] documented in this encounter Plan of Treatment Upcoming Encounters Date Type Department Care Team (Late st Contact Info) Description 01/01/2025 10:00 AM EDT Office Visit [facility] [address] [place] [address] Ashely Guy APRN [address] [place] [address] 07/05/2025 11:40 AM EST Office Visit [facility] [address] [place] [address] Devin Monahan MD [address] [place] [address] documented as of this encounter Visit Diagnoses Not on filedocumented in this encounter Additional Health Concerns Assessment Noted Time A fall risk assessment has been complete d for the patient 03/14/2023 2:59 PM EST A Body Mass Index follow-up plan has been documented for the patient 06/22/2024 2:21 PM EST documented as of this encounter Care Teams Cashier Receptionist Relationship Specialty Start Date End Date Leroy Gordon APRN [address] [place] [address] PCP - General 10/07/22 Stefan Lennon MD [address] [address] Surgeon Neurosurgery 03/01/23 Vikas Green MD [address] [address] Surgeon Neurosurgery 03/30/23 documented as of this encounter
--- OUTSIDE RECORDS SUMMARY | 2024-12-31 03:19 | XMS_ITS | Patient Health Record ---
Author Organization [facility] Address [address] [place] [address] [place] [address] Care Team Providers Care Swing Saw Operator Name Role Phone Vicky Nelson Unavailable [phone] Reason For Referral No Information Medications Medication [...] Coverage End Date [employer] CLAIM[employer] [address] [address] [place] [address] [id number] GILBERT RUSHING Self - patient is the insured
--- OUTSIDE RECORDS SUMMARY | 2024-12-31 03:20 | XMS_ITS | Encounter Summary ---
Author Organization [place] [address] Care Team Providers Care Vacuum Truck Driver Name Role Phone Janet Vogt MD Primary Care Provider Na Ang MD Unavailable [phone] Encounter Details Date Type Department Care Team (Late st Contact Info) Description 07/11/2019 Lab [address] [facility] [place] [address] Gerardo Purcell MD [address] [place] [address] Personal history of colonic polyps; Other specified [...] 01/16/2025 11:30 AM EDT Telemedicine [facility] [place] [address] [employer] [address] [place] [phone] Katharine Whitlock MD [address] [place] [phone] 08/15/2025 1:40 PM EDT Office Visit [facility] [address] [place] [phone] Na Ang MD [address] [employer] [address] [address] documented as of this encounter [...] PM EDT) CASE REPORT Surgical Pathology Case: [id number] Authorizing Provider: Gerardo Purcell MD Collected: 07/11/2019 1230 Ordering Location: [facility] Received: 07/11/2019 1830 Pathologist: Claudia Issa MD Specimen: Large Intestine, Rectum 07/12/2019 9:14 AM EDT [facility] CLINICAL HISTORY Personal history of colon polyps. 07/12/2019 9:14 AM EDT [facility] FINAL DIAGNOSIS Distal rectum, biopsy: - Colonic mucosa with mild acute inflammation and mild hyperplastic change. - Negative for granuloma, dysplasia, or malignancy. 07/12/2019 9:14 AM EDT [facility] at 0914 EDT COMMENT 07/12/2019 9:14 AM EDT [facility] GROSS DESCRIPTION Received in formalin labeled with the patient's name and distal rectal biopsy are 3 fragments of rico tissue ranging from 0.3 to 0.5 cm in greatest dimension. Entirely submitted in one cassette. /ZN 07/12/2019 9:14 AM EDT [facility] MICROSCOPIC DESCRIPTION Microscopic examination is performed and the findings corroborate the diagnosis. 07/12/2019 9:14 AM EDT [facility] SPECIAL STAINS 07/12/2019 9:14 AM EDT [facility] EMBEDDED IMAGES 07/12/2019 9:14 AM EDT [facility] Tissue RECTUM STRUCTURE / Unknown 07/11/2019 12:30 PM EDT 07/11/2019 6:30 PM EDT us Gerardo Rahman MD PATHOLOGY ORDERABLES Final Result [facility] [address] [place], [place] [id number] documented in this encounter Visit Diagnoses Diagnosis Personal history of colonic polyps Other specified diseases of intestine documented in this encounter Additional Health Concerns Infection Onset Date Last Indicated Resolved Time COVID-19 Comment:ID [id number]: import to resolve all COVID-19 infections added [...] documented as of this encounter Care Teams Vacuum Truck Driver Relationship Specialty Start Date End Date Janet Vogt MD [address] [place] [address] PCP - General Family Medicine 12/04/18 03/09/23 Na Ang MD [address] [address] Consulting Physician Ophthalmology 07/10/20 documented as of this encounter
--- OUTSIDE RECORDS SUMMARY | 2024-12-31 03:20 | XMS_ITS | Encounter Summary ---
Author Organization [facility] Address [address] [place] [address] Care Team Providers Care Gas Burner Operator Name Role Phone Leroy Gordon Shae VU Primary Care Provider [phone] Stefan Lennon MD Unavailable [phone] Vikas Green MD Unavailable [phone] Encounter Details Date Type Department Care Team (Late st Contact Info) Description 12/27/2024 Telephone [place] [facility] [address], [address] [place] [address] Vikas Green MD [address] [place] [address] Social History Tobacco Use Types Packs/Day Years [...] encounter Miscellaneous Notes * Telephone Encounter - Yang Hernandezivanna Finch - 12/27/2024 8:39 AM EDT 12/27/2024 - Spoke to patient directly Patient stated she does have sensation when urinating but having trouble with the amount of urine coming out. / Mrs. Moreira reported she saw a Urologist on Tuesday and they recommended she follow up with Dr. Green Her appointment with Ashely Guy APRN has been moved up to Tuesday01/01/2025 at 10AM But has been advised to come to the ER if she feels she cannot wait until that long to be evaluated. Patient stated she is not taking any RX pain medication or OTC pain medication for discomfort. - She has been advised to contact her PCP to discuss having an eval if needed to be issued since ithas been over 2yrs since her last visit with our office and unclear what medication she may need toget her buy until her appointment with Ashely on Tuesday next week. No further actions required at this time. * Telephone Encounter - Kat Tolbert - 12/27/2024 8:13 AM EDT Patient Phone Message Reason for Call: Pt is calling and wanting to see if she can get in sooner than Jan 07. She is having issues with urination and pain in leg and thigh. Please advise. Best contact number and optimal time of day to reach caller: [phone] Note: Please do not reply to this message. Follow-up communication and further actions as a result of this message need to be communicated with the patient directly, if the patient is not active onMyChart. If the patient is active on MyChart, they will receive notification of the communication/outcome via [employer]. documented in this encounter Plan of Treatment Upcoming Encounters Date Type Department Care Team (Late st Contact Info) Description 01/01/2025 10:00 AM EDT Office Visit [place] [facility] [address] [place] [address] Ashely Guy, HORACE [address] [place] [address] 07/05/2025 11:40 AM EST Office Visit [facility] [address] [place] [address] Devin Monahan MD [address] [place] [address] documented as of this encounter Visit Diagnoses Not on filedocumented in this encounter Additional Health Concerns Assessment Noted Time A fall risk assessment has been complete d for the patient 03/14/2023 2:59 PM EST A Body Mass Index follow-up plan has been documented for the patient 06/22/2024 2:21 PM EST documented as of this encounter Care Teams Gas Burner Operator Relationship Specialty Start Date End Date Leroy Gordon APRN [address] [place] [address] PCP - General 10/07/22 Stefan Lennon MD [address] [place] [address] Surgeon Neurosurgery 03/01/23 Vikas Green MD [address] [place] [address] Surgeon Neurosurgery 03/30/23 documented as of this encounter
--- OUTSIDE RECORDS SUMMARY | 2024-12-31 03:20 | XMS_ITS | Encounter Summary ---
Author Organization [facility] Address [address] [place] [address] Care Team Providers Care Water Systems Engineer Name Role Phone Leroy Gordon GREENKEEPER Primary Care Provider [phone] Stefan Lennon MD Unavailable [phone] Vikas Green MD Unavailable [phone] Encounter Details Date Type Department Care Team (Late st Contact Info) Description 12/23/2022 Orders Only External Location [address] [place] [id number] Leroy Gordon, GREENKEEPER [address] [place] [address] Social History Tobacco Use Types Packs/Day Years [...] Visit [place] [facility] [address] [place] [address] Ashely Guy, GREENKEEPER [address] [place] [address] 07/05/2025 11:40 AM EST Office Visit [facility] [address] [place] [address] Devin Monahan MD [address] [place] [address] documented as of this encounter Procedures Procedure Name Priority Date/Time Associated Diagnosis Comments MR OUTSIDE IMAGES 12/23/2022 11:01 AM EDT documented in this encounter Results * MR transfer of outside films (12/23/2022 11:01 AM EDT) Anatomical Region Laterality Modality Magnetic Resonan ce 12/23/2022 11:0 1 AM EDT us Leroy Gordon APRN IMG MRI PROCEDURES Final [...] documented as of this encounter Care Teams Water Systems Engineer Relationship Specialty Start Date End Date Leroy Gordon APRN [address] [place] [address] [place] [address] PCP - General 10/07/22 Stefan Lennon MD [address] [place] [address] Surgeon Neurosurgery 03/01/23 Vikas Green MD [address] [place] [address] Surgeon Neurosurgery 03/30/23 documented as of this encounter
--- OUTSIDE RECORDS SUMMARY | 2024-12-31 03:20 | XMS_ITS | Encounter Summary ---
Author Organization Healthcare Address [address] [place] [address] Care Team Providers Care Correctional Counselor Name Role Phone Leroy Gordon Shae VU Primary Care Provider [phone] Stefan Lennon MD Unavailable [phone] Vikas Green MD Unavailable [phone] Encounter Details Date Type Department Care Team (Late st Contact Info) Description 12/26/2024 Telephone [place] [facility] [address] [place] [address] iVkas Green MD [address] [place] [address] Social History Tobacco Use Types [...] encounter Miscellaneous Notes * Telephone Encounter - Basilio Hernandez - 12/26/2024 1:18 PM EDT 12/25/2024 - Spoke to patient directly - Patient has not been evaluated by her PCP or alternate specialist since seeing Dr. Green since 03/30/2023. - Patient stated she would like to have an updated appointment after injection therapy (outside of ) Patient is now scheduled to see Ashely Guy DNP, APRN on 01/07/2025 at 12:40PM at the General Surgery clinic to review current symptoms and discuss ordering updated radiology testing. * Telephone Encounter - Kadeemalexander Barbara Love - 12/26/2024 11:10 AM EDT Patient Phone Message Reason for Call: Patient has been in pain management for over a year. She is having continued issues and pain down legs Please give a clinical call back to discuss Best contact number and optimal time of day to reach caller: [phone] patient Note: Please do not reply to this message. Follow-up communication and further actions as a result of this message need to be communicated with the patient directly, if the patient is not active onMyChart. If the patient is active on MyChart, they will receive notification of the communication/outcome via [employer]. documented in this encounter Plan of Treatment Upcoming Encounters Date Type Department Care Team (Late st Contact Info) Description 01/01/2025 10:00 AM EDT Office Visit [place] [facility] [address] [place] [address] Ashely Guy, HORACE [address] [place] [address] 07/05/2025 11:40 AM EST Office Visit [facility] [address] [place] [address] Devin Monahan MD [address] [place] [address] documented as of this encounter Visit Diagnoses Not on filedocumented in this encounter Additional Health Concerns Assessment Noted Time A fall risk assessment has been complete d for the patient 03/14/2023 2:59 PM EST A Body Mass Index follow-up plan has been documented for the patient 06/22/2024 2:21 PM EST documented as of this encounter Care Teams Correctional Counselor Relationship Specialty Start Date End Date Leroy Gordon APRN [address] [place] [address] PCP - General 10/07/22 Stefan Lennon MD [address] [facility] [place] [address] Surgeon Neurosurgery 03/01/23 Vikas Green MD [address] [facility] [place] [address] Surgeon Neurosurgery 03/30/23 documented as of this encounter
--- OUTSIDE RECORDS SUMMARY | 2024-12-31 03:20 | XMS_ITS | Encounter Summary ---
Author Organization [facility] [place] [address] Phone Care Team Providers Care Log Washer Name Role Phone Janet Vogt MD Primary Care Provider [phone] Encounter Details Date Type Department Care Team ([facility] st Contact Info) Description 07/22/2022 Discharge Call Center Patient Call Center [address] [place] [address] Social History Tobacco Use Types Packs/Day Years [...] on filedocumented in this encounter Care Teams Log Washer Relationship Specialty Start Date End Date Janet Vogt MD PCP - General Family Medicine 07/19/22 documented as of this encounter
--- OUTSIDE RECORDS SUMMARY | 2024-12-31 03:20 | XMS_ITS | Encounter Summary ---
Author Organization Healthcare Address [address] [place] [address] Care Team Providers Care Hospice Nurse Name Role Phone Leroy Gordon HORACE Primary Care Provider [phone] Stefan Lennon MD Unavailable [phone] Vikas Green MD Unavailable [phone] Encounter Details Date Type Department Care Team (Latest Contact Info) Description 12/28/2024 Travel Social History Tobacco Use Types Packs/Day Years [...] as of this encounter Functional Status * Calculated C-SSRS Risk Score (Lifetime/Recent) Answer Date of Assessment Author No Risk Indicated 12/28/2024 7:00 AM EDT Jayna Smith RN * Question Answer Date of Assessment Author 1. Wish to be (Past 1 Month) No 12/28/2024 7:00 AM EDT Tomas Abad RN 2. Non-Specific Active Suicidal Thoughts (Past 1 Month) No 12/28/2024 7:00 AM TACHOT Tomas Abad RN 6. Suicidal Behavior (Lifetime) No 12/28/2024 7:00 AM EDT Tomas Abad RN documented as of this encounter Plan of Treatment Upcoming Encounters Date Type Department Care Team (Late Contact Info) Description 01/01/2025 10:00 AM EDT Office Visit [place] [facility] [address] [place] [address] Ashely Guy, SECURITY SYSTEMS MANAGER [address] [place] [address] 07/05/2025 11:40 AM EST Office Visit [facility] [address] [place] [address] Devin Monahan MD [address] [place] [address] documented as of this encounter Visit Diagnoses Not on filedocumented in this encounter Additional Health Concerns Assessment Noted Time A fall risk assessment has been complete d for the patient 03/14/2023 2:59 PM EST A Body Mass Index follow-up plan has been documented for the patient 06/22/2024 2:21 PM EST documented as of this encounter Care Teams Hospice Nurse Relationship Specialty Start Date End Date Leroy Gordon, SECURITY SYSTEMS MANAGER [address] [place] [address] [place] [address] PCP - General 10/07/22 Stefan Lennon MD [address] [place] [address] Surgeon Neurosurgery 03/01/23 Vikas Green MD [address] [place] [address] Surgeon Neurosurgery 03/30/23 documented as of this encounter
--- OUTSIDE RECORDS SUMMARY | 2024-12-31 03:20 | XMS_ITS | Encounter Summary ---
Author Organization [place] [address] Care Team Providers Care Orthotic Finish Grinding Technician Name Role Phone Na Ang MD Unavailable [phone] Encounter Details Date Type Department Care Team (Late st Contact Info) Description 12/07/2024 Results [facility] [place] [address] [place] [phone] Katharine Whitlock MD [address] [facility] [address] [place] [address] [place]- COMPUNET, T3 FREE, VITAMIN B6 (PYRIDOXINE) [...] Date Recorded PHQ-2 Total Score 0 07/28/2022 [facility] [place] [facility] - Occupational Stress [...] Chatman RN - 12/10/2024 3:49 PM EDT [employer] message sent to patient in regards to HTT testing. documented in this encounter Plan of Treatment Upcoming Encounters Date Type Department Care Team (Late st Contact Info) Description 01/16/2025 11:30 AM EDT Telemedicine [facility] [place] [address] [email or web address] [address] [place] [address] Katharine Whitlock MD [address] [employer] [address] 08/15/2025 1:40 PM EDT Office Visit [facility] [address] [email or web address] [address] [place] [address] Na Ang MD [address] [address] documented as of this encounter Goals Goal [...] documented as of this encounter Care Teams Orthotic Finish Grinding Technician Relationship Specialty Start Date End Date Na Ang MD [address] [address] Consulting Physician Ophthalmology 07/10/20 documented as of this encounter
--- OUTSIDE RECORDS SUMMARY | 2024-12-31 03:20 | XMS_ITS | Encounter Summary ---
Author Organization [place] [address] Care Team Providers Care Timing Inspector Name Role Phone Janet Vogt MD Primary Care Provider Na Ang MD Unavailable [phone] Encounter Details Date Type Department Care Team (Late st Contact Info) Description 07/11/2019 Orders Only [facility] [address] [facility] [address] [place] [address] Gerardo Purcell MD [address] [place] [address] Social History Tobacco Use Types Packs/Day Years [...] Author No 03/14/2019 1:41 PM Adriana Goode Claire, CCMDesiree * Is the person blind or does [...] 03/14/2019 1:41 PM Adriana Goode Claire CHRIS documented in this encounter Plan of Treatment Upcoming Encounters Date Type Department Care Team (Late st Contact Info) Description 01/16/2025 11:30 AM EDT Telemedicine [facility] [address] [employer] [address] [place] [address] Katharine Whitlock MD [address] [employer] [address] [place] [address] 08/15/2025 1:40 PM EDT Office Visit [facility] [address] [employer] [address] [place] [address] Na Ang MD [address] [employer] [address] [address] documented as of this encounter [...] EDT) 07/11/2019 12:3 0 PM EDT Impressions [facility] - 07/11/2019 1:00 PM EDT Erythema in the distal rectum. (Biopsy). Otherwise normal colonoscopy. Abnormal digital rectal exam (large external hemorrhoids). Plan: No need for further screening colonoscopies due to age. This section is an excerpt of the full report. Gerardo Rahman MD GI PROCEDURE ORDERABLES Fi nal Result Performing Organization Address City/State/[facility] Co de Phone Number [facility] [address] [place], [place] [id number] documented in this encounter Visit Diagnoses Not on filedocumented in this encounter Additional Health Concerns Infection Onset Date Last Indicated Resolved Time COVID-19 Comment:[place] [id number]: import to resolve all COVID-19 infections added [...] documented as of this encounter Care Teams Timing Inspector Relationship Specialty Start Date End Date Janet Vogt MD [address] [place] [address] PCP - General Family Medicine 12/04/18 03/09/23 Na Ang MD [address] [address] Consulting Physician Ophthalmology 07/10/20 documented as of this encounter
--- OUTSIDE RECORDS SUMMARY | 2024-12-31 03:20 | XMS_ITS | Clinical Summary ---
Author Organization [facility] Address [address] [place] [address] Care Team Providers Care Bill Hiker Name Role Phone Leroy Gordon LEAD WAREHOUSE ASSOCIATE Primary Care Provider [phone] Stefan Lennon MD Unavailable [phone] Vikas Green MD Unavailable [phone] Allergies Active Allergy Reactions Criticality Noted Date [...] with meals. 180 tablet 3 5 Active methocarbamol (Robaxin) 500 MG tablet Take 1 tablet by mouth 4 times a day as needed for muscle spasms for up to 10 days. 40 tablet 5 01/08/20 25 Active Active Problems Problem Noted Date Diagnosed Date Periumbilical abdominal pain 06/22/2024 Gastroesophageal reflux disease 06/22/2024 Primary hypertension 06/22/2024 Encounters Date Type Department Care Team Description 12/28/2024 Travel 12/27/2024 9:43 PM EDT - 12/28/2024 1:27 PM EDT Hospital Encounter [facility] Emergency Department [address] [place] [address] Maxime Gooden MD Numbness and tingling of both legs (Primary Dx); Lumbar back pain Discharge Disposition: Home or Self Care 12/27/2024 Travel 12/27/2024 Telephone [facility] [address] [place] [address] Vikas Green MD 12/26/2024 Telephone [facility] [address] [place] [address] Vikas Green MD 11/08/2024 Telephone [facility] Nephrology, Bone & Mineral Metabolism [address] [facility] [address] [facility], [address] [place] [address] Corrina Jarvis, PharmD from Last [...] Mass Index 25.96 12/27/2024 10:00 PM EDT Plan of Treatment Upcoming Encounters Date Type Department Care Team (Late st Contact Info) Description 01/01/2025 10:00 AM EDT Office Visit [place] [facility] [address] [place] [address] Ashely Guy, LEAD WAREHOUSE ASSOCIATE [address] [place] [address] 07/05/2025 11:40 AM EST Office Visit [facility] [address] [place] [address] Devin Monahan MD [address] [place] [address] Health Maintenance Due Date Last Done Comments [facility]-Depression Screening 1944 [facility]Infant/Child/Adol SDOH Screenings 1944 [facility]- SDOH Screenings 1962 [facility]-Adult SDOH Screenings 1962 [facility]-RSV Vaccine: 60+ Years or (1 - 1-dose 75+ series) 10/12/2019 [facility]-Medicare Annual Wellness (AWV) 01/19/2020 01/18/2019 [id number] Vaccine (2 - Moderna risk series) 12/27/2020 [...] CONTRAST STAT 12/28/2024 5:45 AM EDT URINALYSIS MICROSCOPIC FOR UA REFLEX STAT 12/27/2024 11:02 PM EDT URINE KAPOOR PANEL STAT 12/27/2024 11:0 2 PM EDT URINALYSIS WITH REFLEX MICROSCOPIC STAT 12/27/2024 11:02 PM EDT URINALYSIS WITH REFLEX MICROSCOPIC AND CULTURE STAT 12/27/2024 11:[address] ANGIO ABDOMEN PELVIS STAT 12/27/2024 10:[address] LUMBAR SPINE WO IV CONTRAST STAT 12/27/2024 10:[address] CERVICAL SPINE WO IV CONTRAST STAT 12/27/2024 10:18 PM EDT PHOSPHORUS, PLASMA STAT 12/27/2024 9: 37 PM EDT MAGNESIUM, PLASMA STAT 12/27/2024 9:3 7 PM EDT BASIC METABOLIC PANEL, PLASMA STAT 12/27/2024 9:37 PM EDT CBC WITH AUTO DIFFERENTIAL STAT 12/27/2024 9:37 PM EDT from Last 3 Months Results * MR Lumbar Spine w and [...] IMG MRI PROCEDURES Cindy l Result * Urine Kapoor Panel (12/27/2024 11:02 PM EDT) Extra Reflex urine culture not indicated 12/28/2024 1:04 AM EDT [facility] Urine Urine specimen obtained by clean catch procedure / Unknown Non-blood Collection / Unknown 12/27/2024 11:02 PM EDT 12/27/2024 11:28 PM EDT Maxime Mae MD LAB URINE ORDERABLES Final Result Performing Organization Address [facility] de Phone Number [facility] [address] [place] [address] * Urinalysis Microscopic Examination (12/27/2024 11:02 PM EDT) Urine Urine specimen obtained by clean catch procedure / Unknown Non-blood Collection / Unknown 12/27/2024 11:02 PM EDT 12/27/2024 11:16 PM EDT Maxime Mae MD LAB URINE ORDERABLES Final Result Performing Organization Address [facility] Co de Phone Number [facility] [address] [place] [address] * (ABNORMAL) Urinalysis with reflex microscopic (Culture NOT Included) (12/27/2024 11:02 PM EDT) Color, Urine Yellow LAB URINALYSIS - AUTOMATED METHOD 12/27/2024 11:53 PM EDT [facility] Clarity, Urine Clear LAB URINALYSIS - AUTOMATED METHOD 12/27/2024 11:53 PM EDT [facility] Spec [place], Urine 1.021 1.005 - 1.030 LAB URINALYSIS - AUTOMATED METHOD 12/27/2024 11:53 PM EDT [facility] pH, Urine 6.5 5.0 - 8.0 LAB URINALYSIS - AUTOMATED METHOD 12/27/2024 11:53 PM EDT [facility] Protein, Urine Negative Negative mg/dL LAB URINALYSIS - AUTOMATED METHOD 12/27/2024 11:53 PM EDT [facility] Glucose, Urine Negative Negative mg/dL LAB URINALYSIS - AUTOMATED METHOD 12/27/2024 11:53 PM EDT [facility] Ketones, Urine Negative Negative mg/dL LAB URINALYSIS - AUTOMATED METHOD 12/27/2024 11:53 PM EDT [facility] Blood, Urine Small(A) Negative LAB URINALYSIS - AUTOMATED METHOD 12/27/2024 11:53 PM EDT [facility] Bilirubin, Urine Negative Negative LAB URINALYSIS - AUTOMATED METHOD 12/27/2024 11:53 PM EDT [facility] Urobilinogen, Urine 0.2 0.2 to 1.0 mg/dL LAB URINALYSIS - AUTOMATED METHOD 12/27/2024 11:53 PM EDT [facility] Leukocytes, Urine Negative Negative LAB URINALYSIS - AUTOMATED METHOD 12/27/2024 11:53 PM EDT [facility] Nitrite, Urine Negative Negative LAB URINALYSIS - AUTOMATED METHOD 12/27/2024 11:53 PM EDT [facility] RBC, Urine <1 0 to 3 /HPF LAB URINALYSIS - AUTOMATED METHOD 12/27/2024 11:53 PM EDT [facility] Comment:This result was prev iously suppressed from the chart. WBC, Urine 0 - 5 0 to 5 /HPF LAB URINALYSIS - AUTOMATED METHOD 12/27/2024 11:53 PM EDT [facility] Comment:This result was prev iously suppressed from the chart. Squamous Epithelial Cells 0 - 2 0 to 5 /HPF LAB URINALYSIS - AUTOMATED METHOD 12/27/2024 11:53 PM EDT [facility] Comment:This result was prev iously suppressed from the chart. Hyaline Casts 0 - 2 0 to 5 /LPF LAB URINALYSIS - AUTOMATED METHOD 12/27/2024 11:53 PM EDT [facility] Comment:This result was prev iously suppressed from the chart. Bacteria, Urine Negative Negative LAB URINALYSIS - AUTOMATED METHOD 12/27/2024 11:53 PM EDT [facility] Comment:This result was prev iously suppressed from the chart. Urine Urine specimen obtained by clean catch procedure / Unknown Non-blood Collection / Unknown 12/27/2024 11:02 PM EDT 12/27/2024 11:16 PM EDT Maxime Mae MD LAB URINE ORDERABLES Final Result [facility] [address] [place] [address] * CT Angio Abdomen Pelvis (12/27/2024 10:18 [...] Total DLP (Dose-Length Product): 2981.63 mGy.cm (accession [id number]), 2981.63 mGy.cm (accession [id number]), 2981.63 mGy.cm (accession [id number]). Please note: The reported value represents the [...] Total DLP (Dose-Length Product): 2981.63 mGy.cm (accession [id number]),2981.63 mGy.cm (accession [id number]), 2981.63 mGy.cm (accession [id number]).Please note: The reported value represents the total [...] Total DLP (Dose-Length Product): 2981.63 mGy.cm (accession [id number]), 2981.63 mGy.cm (accession [id number]), 2981.63 mGy.cm (accession [id number]). Please note: The reported value represents the [...] Total DLP (Dose-Length Product): 2981.63 mGy.cm (accession [id number]),2981.63 mGy.cm (accession [id number]), 2981.63 mGy.cm (accession [id number]).Please note: The reported value represents the total [...] Total DLP (Dose-Length Product): 2981.63 mGy.cm (accession [id number]), 2981.63 mGy.cm (accession [id number]), 2981.63 mGy.cm (accession [id number]). Please note: The reported value represents the [...] Total DLP (Dose-Length Product): 2981.63 mGy.cm (accession [id number]),2981.63 mGy.cm (accession [id number]), 2981.63 mGy.cm (accession [id number]).Please note: The reported value represents the total [...] IMG CT PROCEDURES Final Re sult * CBC w/diff (12/27/2024 9:37 PM EDT) WBC Count 5.39 3.70 - 10.30 10*3/uL LAB HEMATOLOGY METHOD 12/27/2024 9:42 PM EDT [facility] RBC Count 4.23 3.90 - 5.20 10*6/uL LAB HEMATOLOGY METHOD 12/27/2024 9:42 PM EDT [facility] HGB 12.7 11.2 - 15.7 g/dL LAB HEMATOLOGY METHOD 12/27/2024 9:42 PM EDT [facility] HCT 36.9 34.0 - 45.0 % LAB HEMATOLOGY METHOD 12/27/2024 9:42 PM EDT [facility] Platelet Count 313 155 - 369 10*3/uL LAB HEMATOLOGY METHOD 12/27/2024 9:42 PM EDT [facility] MCV 87 79 - 98 fL LAB HEMATOLOGY METHOD 12/27/2024 9:42 PM EDT [facility] MCH 30.0 26.0 - 32.0 pg LAB HEMATOLOGY METHOD 12/27/2024 9:42 PM EDT [facility] MCHC 34.4 30.7 - 35.5 g/dL LAB HEMATOLOGY METHOD 12/27/2024 9:42 PM EDT [facility] RDW 13.4 11.5 - 14.5 % LAB HEMATOLOGY METHOD 12/27/2024 9:42 PM EDT [facility] MPV 9.4 8.8 - 12.5 fL LAB HEMATOLOGY METHOD 12/27/2024 9:42 PM EDT [facility] nRBC 0.0 <=0.0 per 100 WBCs LAB HEMATOLOGY METHOD 12/27/2024 9:42 PM EDT [facility] Differential Type Automated LAB HEMATOLOGY METHOD 12/27/2024 9:42 PM EDT [facility] Neutrophils % 49 % LAB HEMATOLOGY METHOD 12/27/2024 9:42 PM EDT [facility] Lymphocytes % 36 % LAB HEMATOLOGY METHOD 12/27/2024 9:42 PM EDT [facility] Monocytes % 10 % LAB HEMATOLOGY METHOD 12/27/2024 9:42 PM EDT [facility] Eosinophils % 4 % LAB HEMATOLOGY METHOD 12/27/2024 9:42 PM EDT [facility] Basophils % 1 % LAB HEMATOLOGY METHOD 12/27/2024 9:42 PM EDT [facility] Immature Granulocytes % 0 % LAB HEMATOLOGY METHOD 12/27/2024 9:42 PM EDT [facility] Neutrophils Absolute 2.65 1.60 - 6.10 10*3/uL LAB HEMATOLOGY METHOD 12/27/2024 9:42 PM EDT [facility] Lymphocytes Absolute 1.94 1.20 - 3.90 10*3/uL LAB HEMATOLOGY METHOD 12/27/2024 9:42 PM EDT [facility] Monocytes Absolute 0.51 0.30 - 0.90 10*3/uL LAB HEMATOLOGY METHOD 12/27/2024 9:42 PM EDT [facility] Eosinophils Absolute 0.21 0.00 - 0.50 10*3/uL LAB HEMATOLOGY METHOD 12/27/2024 9:42 PM EDT [facility] Basophils Absolute 0.06 0.00 - 0.10 10*3/uL LAB HEMATOLOGY METHOD 12/27/2024 9:42 PM EDT [facility] Immature Granulocytes Absolute 0.02 0.00 - 0.06 10*3/uL LAB HEMATOLOGY METHOD 12/27/2024 9:42 PM EDT [facility] Blood Venous blood specimen / Unknown Venipuncture / Unknown 12/27/2024 9:37 PM EDT 12/27/2024 9:40 PM EDT Narrative [facility] - 12/27/2024 9:42 PM EDT Therapeutic decision making should be based on absolute values, rather than percentages. Maxime Mae MD LAB BLOOD ORDERABLES Final Result Performing Organization Address City/[facility]/ZIP Co de Phone Number [facility] [address] [place] [address] * Phosphorus (12/27/2024 9:37 PM EDT) Phosphorus, Plasma 3.4 2.5 - 4.5 mg/dL 12/27/2024 10:[address] [facility] Blood Venous blood specimen / Unknown Venipuncture / Unknown 12/27/2024 9:37 PM EDT 12/27/2024 9:40 PM EDT Maxime Mae MD LAB BLOOD ORDERABLES Final Result [facility] [address] [place] [address] * Magnesium (12/27/2024 9:37 PM EDT) Magnesium, Plasma 2.1 1.9 - 2.4 mg/dL 12/27/2024 10:03 PM EDT [facility] Blood Venous blood specimen / Unknown Venipuncture / Unknown 12/27/2024 9:37 PM EDT 12/27/2024 9:40 PM EDT us Maxime Mae MD LAB BLOOD ORDERABLES Final Result [facility] [address] [place] [address] * BMP (12/27/2024 9:37 PM EDT) Glucose, Plasma 97 74 - 99 mg/dL 12/27/2024 10:03 PM EDT [facility] BUN, Plasma 21 8 - 23 mg/dL 12/27/2024 10:03 PM EDT [facility] Creatinine, Plasma 0.97 0.60 - 1.10 mg/dL 12/27/2024 10:03 PM EDT [facility] BUN/Creatinine Ratio 22 12/27/2024 10:03 PM EDT [facility] Sodium, Plasma 139 136 - 145 mmol/L 12/27/2024 10:03 PM EDT [facility] Potassium, Plasma 3.8 3.6 - 4.9 mmol/L 12/27/2024 10:03 PM EDT [facility] Chloride, Plasma 105 97 - 107 mmol/L 12/27/2024 10:03 PM EDT [facility] CO2, Plasma 23 22 - 29 mmol/L 12/27/2024 10:03 PM EDT [facility] Anion Gap 11 6 - 16 mmol/L 12/27/2024 10:03 PM EDT [facility] Total Calcium, Plasma 9.8 8.9 - 10.2 mg/dL 12/27/2024 10:03 PM EDT [facility] eGFRcr 59.2 mL/min/1.7 3m*2 12/27/2024 10:03 PM EDT [facility] Comment:Reported eGFRcr in m L/min/1.73m2 is based the CKD-EPI 2020 equation that does not use a race coefficient. Blood Venous blood specimen / Unknown Venipuncture / Unknown 12/27/2024 9:37 PM EDT 12/27/2024 9:40 PM EDT us Maxime Mae MD LAB BLOOD ORDERABLES Final Result [facility] [address] [place] [address] from Last 3 Months Insurance [employer] Care Teams Bill Hiker Relationship Specialty Start Date End Date Leroy Gordon APRN [address] [place], [place] [id number] PCP - General 10/07/22 Stefan Lennon MD [address] [address] Surgeon Neurosurgery 03/01/23 Vikas Green MD [address] [address] Surgeon Neurosurgery 03/30/23
--- OUTSIDE RECORDS SUMMARY | 2024-12-31 03:20 | XMS_ITS | Encounter Summary ---
Author Organization Healthcare Address [address] [place] [address] Care Team Providers Care Internal Consultant Name Role Phone Leroy Gordon HORACE Primary Care Provider [phone] Stefan Lennon MD Unavailable [phone] Vikas Green MD Unavailable [phone] Encounter Details Date Type Department Care Team (Latest Contact Info) Description 12/27/2024 Travel Social History Tobacco Use Types Packs/Day [...] Date of Assessment Author No Risk Indicated 12/27/2024 10:00 PM EDT Marcus Ellison * Question Answer Date of Assessment Author 1. Wish to be (Past 1 Month) No 025 10:00 PM EDT Marcus Edwards 2. Non-Specific Active Suici tash Thoughts (Past 1 Month) No 12/27/2024 10:00 PM EDT Maik Edwards 6. Suicidal Behavior (Lifetime) No 10:00 PM EDT Marcus Edwards documented as of this encounter Plan of Treatment Upcoming Encounters Date Type Department Care Team (Late st Contact Info) Description 01/01/2025 10:00 AM EDT Office Visit [place] [facility] [address] [place] [address] Ashely Guy, KAI WHAKARURUHAU [address] [place] [address] 07/05/2025 11:40 AM EST Office Visit [facility] [address] [place] [address] Devin Monahan MD [address] [place] [address] documented as of this encounter Visit Diagnoses Not on filedocumented in this encounter Additional Health Concerns Assessment Noted Time A fall risk assessment has been complete d for the patient 03/14/2023 2:59 PM EST A Body Mass Index follow-up plan has been documented for the patient 06/22/2024 2:21 PM EST documented as of this encounter Care Teams Internal Consultant Relationship Specialty Start Date End Date Leroy Gordon, KAI WHAKARURUHAU [address] [place] [address] [place] [address] PCP - General 10/07/22 Stefan Lennon MD [address] [place] [address] Surgeon Neurosurgery 03/01/23 Vikas Green MD [address] [place] [address] Surgeon Neurosurgery 03/30/23 documented as of this encounter
[2024-12-31 03:24] VITALS: BP 151/103; PULSE 93; RESP 13; TEMP 36.6; O2SAT 98; BMI 25.9
--- NOTE | 2024-12-31 03:31 | PC.NURSE ---
Contacted Respiratory r/t VBG sent to lab.
--- NOTE | 2024-12-31 03:32 | PC.NURSE ---
PT notified of need of diarrhea sample
[2024-12-31 03:35] LABS: Hematocrit 38.3 % (37.0-47.0); Hemoglobin 13.2 g/dL (12.2-16.2); Immature Granulocytes % 0.3 %; Lactate Venous 1.1 mmol/L (0.4-2.0); Mean Corpuscular HGB Conc 34.5 g/dL (31.8-35.4); Mean Corpuscular Hemoglobin 29.3 pg (27.0-31.2); Mean Corpuscular Volume 85.1 fl (81-99); Nucleated Red Blood Cells % 0 %; Platelet Count 313 K/mm3 (142-424); Red Blood Count 4.50 M/mm3 (4.20-5.40); Red Cell Distribution Width-SD 39.1 fL; VBG HCO3 23.2 mmol/L (23-30); VBG PCO2 37.4 mmol/L (35-51); VBG PH 7.41 mmol/L (7.31-7.41); VBG PO2 47.4 mmol/L (28-40); White Blood Count 6.0 K/mm3 (4.8-10.8)
[2024-12-31 03:39] LABS: Albumin Level 4.7 g/dl (3.5-5.0); Chloride 105 mmol/L (98-107)
[2024-12-31 03:40] LABS: Potassium 4.1 mmoL/L (3.5-5.1); Sodium 135 mmol/L (136-145)
[2024-12-31] MEDS: ONDANSETRON 4MG/2ML VIAL 4 MG IV (03:41)
[2024-12-31] MEDS: 0.9 % SODIUM CHLORIDE 1000ML 1,000 ML 999 ML IV (03:41)
[2024-12-31 03:42] LABS: Alanine Aminotransferase 25 U/L (12-78); Albumin/Globulin Ratio 1.5 (1.1-1.8); Anion Gap 12.1 mEq/L (5-15); Aspartate Amino Transferase 41 U/L (14-36); Blood Urea Nitrogen 17 mg/dl (7-17); Carbon Dioxide 22 mmol/L (22.0-30.0); Creatinine Clearance Estimated 50 mL/min (50-200); Creatinine,Serum 0.80 mg/dl (0.52-1.04); Estimated Glomerular Filt Rate 69 ml/min (>60); GFR (African American) 84 ML/MIN (>60); Globulin 3.1 g/dL (1.3-3.2); Total Protein,Serum 7.8 g/dl (6.3-8.2)
[2024-12-31 03:43] LABS: Alkaline Phosphatase 40 U/L (38-126); Bilirubin,Total 0.7 mg/dl (0.2-1.3); Calcium 10.0 mg/dl (8.4-10.2); Glucose 120 mg/dl (74-100); Magnesium 1.7 mg/dl (1.6-2.3); Phosphorous 3.2 mg/dl (2.5-4.5)
--- NOTE | 2024-12-31 04:08 | HMH.ITSTN ---
Went to retrieve pt and explained procedure, pt stated she wanted to refuse the CT exam due to finances . Provider Notified.
[2024-12-31] MEDS: SODIUM CHLORIDE 0.9% 25ML BAG 25 ML IV (04:21)
[2024-12-31] MEDS: PROMETHAZINE HCL 25MG/ML 1ML VIAL 12.5 MG IV (04:21)
[2024-12-31 04:28] LABS: Bilirubin,Urine Negative (Negative); Color,Urine YELLOW (Yellow); Glucose,Urine (UA) Negative (Negative); Ketones,Urine Negative (Negative); Leukocyte Esterase,Urine Negative (Negative); Microscopic, Urine URINE MICROSCOPIC (MICROSCOPIC); PH,Urine 6.0 (5.0-8.5); Protein,Urine Negative (Negative); Specific Gravity, Urine 1.010 (1.005-1.030); Urobilinogen,Urine 0.2 EU/dl (0.2)
--- NOTE | 2024-12-31 04:28 | PC.NURSE ---
PT moved from room 11 to room 5 due to PT being uncomfortable in room 11's bed.
[2024-12-31 04:31] LABS: POC Glucose,Bedside 113 gm/dL (70-110)
[2024-12-31 04:38] LABS: WBC,Urine Occasional #/hpf (0-3)
[2024-12-31 04:52] VITALS: BP 167/77; PULSE 87; RESP 21; O2SAT 94
[2024-12-31 04:55] VITALS: BP 167/77; PULSE 87; RESP 21; TEMP 37.1; O2SAT 94
== END 2024-12-31 05:16 | disposition home or self-care (01) ==
PROVIDERS: Emergency Provider Emergency Medicine; PCP Nurse Practitioner Family
DX: R10.9 Unspecified abdominal pain (principal); R11.2 Nausea with vomiting, unspecified
CPT/HCPCS: 80053; 81001; 82803; 82962; 83735; 84100; 85025; 96361; 96374; 96375; 99284; 99285; J2405; J2550; J7030

== ENCOUNTER 2025-01-08 13:29 | Outpatient (CLI) | payer MEDICARE, SELFPAY ==
--- OUTSIDE RECORDS SUMMARY | 2016-09-14 14:04 | XMS_ITS | Encounter Summary ---
Author Organization [facility] [place] [address] Care Team Providers Care Strap Buckler Name Role Phone Elvira Velarde MD Primary Care Provider [phone] Encounter Details Date Type Department Care Team (Late st Contact Info) Description 09/14/2016 2:04 PM EDT Hospital Encounter [facility] Referral Lab [address] [place] [phone] Oumar Alves MD [address] [place] [phone] Low back pain Social History Tobacco Use [...] Date Recorded PHQ-2 Total Score 0 07/28/2022 [facility] [place] of Occupat ional [facility] - Occupational Stress Questionnaire Answer Date Recorded [...] 2:50 PM EDT Mariama Hackett RN * [place] Suicide Severity Rating Scale (Q shift for [...] Info) Description 01/16/2025 11:30 AM EDT Telemedicine [facility] Diabetes [place] [address] [place] [address] Katharine Whitlock MD [address] [place] [phone] 08/15/2025 1:40 PM EDT Office Visit [facility] [address] [place] [phone] Na Ang MD [address] [place] [address] [phone] Scheduled Orders Name Type Priority [...] Onset Date Last Indicated Resolved Time COVID-19 Comment:[place] [id number]: import to resolve all COVID-19 infections added prior to 03/01/2020 02/21/2020 02/21/2020 03/25/2020 1:4 0 PM EST R/O COVID-19 12/11/2020 12/11/2020 12/11/2020 1:41 PM EDT R/O COVID-19 04/16/2021 04/16/2021 04/17/2021 2:30 PM EST R/O COVID-19 04/28/2022 04/28/2022 04/28/2022 7:12 AM EST INFLUENZA 04/28/2022 04/28/2022 05/06/2022 10:1 2 PM EST documented as of this encounter Care Teams Strap Buckler Relationship Specialty Start Date End Date Elvira Velarde MD [address] [place] [address] PCP - General Family Medicine 10/04/14 10/22/18 documented as of this encounter
--- OUTSIDE RECORDS SUMMARY | 2024-11-27 12:30 | XMS_ITS | Encounter Summary ---
Author Organization [place] [address] Care Team Providers Care Rehab Department Manager Name Role Phone Na Ang MD Unavailable [phone] Reason for Referral * Ultrasound (Routine) - Pending Review Specialty Diagnoses / Procedures Referred By Contac t Referred To Contact Radiology Diagnoses Acquired hypothyroidism Procedures US THYROID Katharine Whitlock MD [address] [place] [phone] Phone: tel: fax: Referral ID Status Reason Start Date Expiration Date V isits Requested Visits Authorized [id number] Pending Review 11/27/2024 11/27/2025 1 1 Reason for Visit * Reason Comments Other Encounter Details Date Type Department Care Team (Latest Contact Info) Description 11/27/2024 12:30 PM EDT [facility] [address] [place] [phone] Katharine Whitlock MD [address] [facility] [address] [place] [phone] Acquired hypothyroidism (Primary Dx); Secondary adrenal [...] 284 MG/1.5 ML SUBCUTANEOUS SYRINGE - 0 Rx#[id number]. Other antihyperlipidemic medications: -02/03/2023 FENOFIBRATE 160 MG TABLET - 0 Rx#[id number]. Therapy plan medications: No therapy plan of [...] Expenses: Not hard at all Received from [facility] Food Insecurities Received from [facility] Transportation Physical Activity: Insufficiently Active (12/18/2020) Exercise Vital Sign Days of Exercise per Week: 7 days Minutes of Exercise per Session: 10 min Stress: No Stress Concern Present (11/25/2020) [facility] [place] of Occupational Health - Occupational Stress Questionnaire Feeling of Stress : Not at all Received from [facility] Interpersonal Safety Received from [facility] Housing/Utilities Family History Problem Relation Age [...] (ASTELIN) 137 mcg (0.1 %) Nasl Aerosol, [place] clonazePAM (KLONOPIN) 0.5 mg Oral Tablet estradioL (ESTRACE) 0.01 % (0.1 mg/gram) Vagl Cream Hyoscyamine Sulfate 0.125 mg Oral Tablet, Rapid Dissolve methocarbamoL (ROBAXIN) 500 mg Oral Tablet mirtazapine (REMERON) 15 mg Oral Tablet nebivoloL (BYSTOLIC) 5 mg Oral Tablet cpwemogw-fwunwplrx-qfaehaghlfsqlcyewv (MAXITROL) 3.5mg/mL-10,000 unit/mL-0.1 % Opht Drops, Suspension [...] Info) Description 01/16/2025 11:30 AM EDT Telemedicine [facility] [address] [facility] [address] [place] [phone] Katharine Whitlock MD [address] [facility] [address] [place] [phone] 08/15/2025 1:40 PM EDT Office Visit [facility] [address] [facility] [address] [place] [address] Na Ang MD [address] [facility] [address] [place] [phone] documented as of this encounter [...] HORMONE -REF LAB (12/14/2024 12:41 PM EDT) [facility] ACTH 17.4 7.2 - 63.3 pg/mL 12/17/2024 7:33 PM EDT [employer] Comment: INTERPRETIVE INFORMATION: Adrenocorticotropic Hormone Reference interval based on samples collected between 7 a.m. and 10 a.m. No reference intervals established for p.m. collections. Pediatric reference values are the same as adults (Acta Paediatr Scand 1981;70:341-345). This assay measures intact ACTH 1-39; some types of synthetic ACTH and ACTH fragments are not detected by this assay. Performed By: [facility] [address] [place] [address] Tool Design Engineer: Uvaldo Youssef MD, PhD CLIA Number: [id number] Blood VENOUS BLOOD / Unknown Venipuncture / Unknown 12/14/2024 12:41 PM EDT 12/14/2024 2:19 PM EDT Katharine Whitlock MD CHEMISTRY ORDERABLES Final Resu Performing Organization Address City/[facility]/ZIP Co de Phone Number [facility] [address] [place] [address] * CORTISOL (12/14/2024 12:41 PM EDT) Cortisol 5.82 mcg/dL 12/14/2024 6:5 8 PM EDT [facility] Blood VENOUS BLOOD / Unknown Venipuncture / Unknown 12/14/2024 12:41 PM EDT 12/14/2024 3:30 PM EDT Narrative [facility] - 12/14/2024 6:58 PM EDT AM: 4.82 [...] immunoassay test. Katharine Whitlock MD CHEMISTRY ORDERABLES [facility] Performing Organization Address [facility] Co de Phone Number [facility] [address] [place] [address] , [place] [address] * (ABNORMAL) DEHYDROEPIANDROSTERONE SULFATE (12/14/2024 12:41 PM EDT) Dhea Sulfate 10.40(L) 12.00 - 154.00 mcg/dL 12/14/2024 6:58 PM EDT [facility] Blood VENOUS BLOOD / Unknown Venipuncture / Unknown 12/14/2024 12:41 PM EDT 12/14/2024 3:30 PM EDT Narrative [facility] - 12/14/2024 6:58 PM EDT Ingestion of aldair doses of biotin (>5 mg/day) taken within 8 hours of drawing blood sample can interfere with this immunoassay test. Katharine Whitlock MD CHEMISTRY ORDERABLES Final [facility] Performing Organization Address [facility] Co de Phone Number [facility], [place] [address] * LUTEINIZING HORMONE (12/14/2024 12:41 PM EDT) LH 44.10 mIU/mL 12/14/2024 6:58 PM EDT [facility] [employer] [facility] Comment: Suggested Reference Ranges (mIU/mL) Females Follicular Phase 2.4 - 12.6 Ovulation Phase 14.0 - 95.6 Luteal Phase 1.0 - 11.4 Postmenopause 7.7 - 58.5 Males 1.7 - 8.6 Blood VENOUS BLOOD / Unknown Venipuncture / Unknown 12/14/2024 12:41 PM EDT 12/14/2024 3:30 PM EDT Narrative [facility] [employer] [facility] - 12/14/2024 6:58 PM EDT Ingestion of aldair doses of biotin (>5 mg/day) taken within 8 hours of drawing blood sample can interfere with this immunoassay test. Katharine Whitlock MD CHEMISTRY ORDERABLES Final [facility] Performing Organization Address [facility] de Phone Number [facility], [place] [address] * THYROGLOBULIN ANTIBODY -REF LAB (12/14/2024 12:41 PM EDT) Thyroglob Ab <1.5 0.0 - 4.0 IU/mL 12/16/2024 6:43 AM EDT [employer] Comment: INTERPRETIVE INFORMATION: Thyroglobulin Antibody A value of 4.0 IU/mL or less indicates a negative result for thyroglobulin antibodies. The Thyroglobulin Antibody assay is being performed using the Chloe [email or web address] Access DxI method. Performed By: [facility] [address] [place] [address] Tool Design Engineer: Uvaldo Youssef MD, PhD CLIA Number: [id number] Blood VENOUS BLOOD / Unknown Venipuncture / Unknown 12/14/2024 12:41 PM EDT 12/14/2024 2:31 PM EDT Result [facility] Katharine Whitlock MD IMMUNOLOGY ORDERABLES Final Res ult Performing Organization Address City/[facility]/ZIP Co de Phone Number [facility] [address] [place] [address] * THYROID PEROXIDASE (TPO) ANTIBODY (12/14/2024 12:41 PM EDT) TPO Ab <3.00 <=5.59 IU/mL 12/14/2024 7:09 PM EDT [facility] Blood VENOUS BLOOD / Unknown Venipuncture / Unknown 12/14/2024 12:41 PM EDT 12/14/2024 2:22 PM EDT Katharine Whitlock MD IMMUNOLOGY ORDERABLES Final Res ult Performing Organization Address [facility] de Phone Number [facility] [address] [facility] , [place] [address] * T3 FREE (12/14/2024 12:41 PM EDT) Pathologist [facility] T3 Free 2.24 2.00 - 4.40 pg/mL 12/14/2024 6:49 PM EDT [facility] Blood VENOUS BLOOD / Unknown Venipuncture / Unknown 12/14/2024 12:41 PM EDT 12/14/2024 2:23 PM EDT Narrative [facility] - 12/14/2024 6:49 PM EDT Ingestion of aldair doses of biotin (>5 mg/day) taken within 8 hours of drawing blood sample can interfere with this immunoassay test. Katharine Whitlock MD CHEMISTRY ORDERABLES Final Resu lt Performing Organization Address [facility]/ZIP Co de Phone Number [facility] [address] [facility] , [place] [address] * T4, FREE (THYROXINE) (12/14/2024 12:41 PM EDT) Free T4 1.41 0.80 - 1.80 ng/dL 12/14/2024 6:49 PM EDT [facility] [employer] [facility] Blood VENOUS BLOOD / Unknown Venipuncture / Unknown 12/14/2024 12:41 PM EDT 12/14/2024 2:23 PM EDT Narrative [facility] [employer], [facility] - 12/14/2024 6:49 PM EDT Ingestion of aldair doses of biotin (>5 mg/day) taken within 8 hours of drawing blood sample can interfere with this immunoassay test. Katharine Whitlock MD CHEMISTRY ORDERABLES Final Resu Performing Organization Address [facility] Co de Phone Number [facility] [employer] , [place] [address] * THYROID STIMULATING HORMONE (12/14/2024 12:41 PM EDT) Pathologist [facility] TSH 0.737 0.270 - 4.200 mcIU/mL 12/14/2024 6:49 PM EDT [facility] [employer] [facility] Blood VENOUS BLOOD / Unknown Venipuncture / Unknown 12/14/2024 12:41 PM EDT 12/14/2024 2:23 PM EDT Narrative [facility] - 12/14/2024 6:49 PM EDT Ingestion of aldair doses of biotin (>5 mg/day) taken within 8 hours of drawing blood sample can interfere with this immunoassay test. Katharine Whitlock MD CHEMISTRY ORDERABLES Final Resu Performing Organization Address City/[facility]/ZIP Co de Phone Number [facility] , [place] [address] * PARATHYROID HORMONE INTACT (12/14/2024 12:41 PM EDT) PTH Intact 27.90 15.00 - 65.00 pg/mL 12/14/2024 6:35 PM EDT [facility] [employer] [facility] Blood VENOUS BLOOD / Unknown Venipuncture / Unknown 12/14/2024 12:41 PM EDT 12/14/2024 2:31 PM EDT Narrative [facility] [employer] [facility] - 12/14/2024 6:35 PM EDT [...] Whitlock MD CHEMISTRY ORDERABLES Final Resu lt [facility] [employer] [address] , [address] [place] [id number] * VITAMIN D, 1,25-DIHYDROXY -REF LAB (12/14/2024 12:41 PM EDT) Vit D 1,25 46.9 19.9 - 79.3 pg/mL 12/16/2024 2:37 PM EDT [employer] Comment: INTERPRETIVE INFORMATION: Vitamin D, 1,25-Dihydroxy This test is primarily indicated during patient evaluation for hypercalcemia and renal failure. A normal result does not rule out Vitamin D deficiency. The recommended test for diagnosing Vitamin D deficiency is Vitamin D 25-hydroxy. Performed By: [facility] [address] [place] [address] Tool Design Engineer: Uvaldo Youssef MD, PhD CLIA Number: [id number] Blood VENOUS BLOOD / Unknown Venipuncture / Unknown 12/14/2024 12:41 PM EDT 12/14/2024 2:31 PM EDT Katharine Whitlock MD CHEMISTRY ORDERABLES Final Resu lt [employer] [address] [place] [address] * VITAMIN D 25 HYDROXY (12/14/2024 12:41 PM EDT) Vit D 25 OH 72.0 30.0 - 150.0 ng/mL 12/14/2024 6:58 PM EDT PREFERRED [facility] [place] Comment: Preferred: >= 30 ng/mL Insufficient: 21-29 [...] ORDERABLES Final Resu lt Performing Organization Address City/[facility]/ZIP Co de Phone Number [facility] [address] [facility] , [place] [address] * LIPID PANEL REFLEX (12/14/2024 12:41 PM EDT) Pathologist [facility] Cholesterol 158 <200 mg/dL 12/14/2024 6:49 PM EDT PREFERRED [facility] [place] Comment: < 200 Desirable 200 - 239 Borderline High >= 240 High Triglyceride 97 <150 mg/dL 12/14/2024 6:49 PM EDT [facility]REFERRED [facility] [place] Comment: < 150 Normal 150 - 199 Borderline High 200 - 499 High >= 500 Very High HDL 49 >=40 mg/dL 12/14/2024 6:49 PM EDT [facility] [employer] [place] Comment: > 60 Optimal 40 - 60 Acceptable < 40 Low LDL Calculated 91 <100 mg/dL 12/14/2024 6:49 PM EDT [facility] Comment: < 100 Optimal 100 - 129 Near or above optimal 130 - 159 Borderline High 160 - 189 High >= 190 Very High The National Institutes of Health (NIH) equation is used for all lipid panels that report calculated LDL (LDL-C). Non-HDL-C Calculated 109 <=129 mg/dL 12/14/2024 6:49 PM EDT [facility] Comment: <130 Desirable 130-159 Above Desirable 160-189 Borderline High 190-219 High >= 220 Very High Fasting Specimen? Yes None 025 6:49 PM EDT [facility] Blood VENOUS BLOOD / Unknown Venipuncture / Unknown 12/14/2024 12:41 PM EDT 12/14/2024 2:23 PM EDT Katharine Whitlock MD CHEMISTRY ORDERABLES Final Resu lt [facility] [address] [facility] , [place] [address] * LIPOPROTEIN (A) (12/14/2024 12:41 PM EDT) Lipoprotein (a) 16 <30 mg/dL 7:13 PM EDT [facility] Blood VENOUS BLOOD / Unknown Venipuncture / Unknown 12/14/2024 12:41 PM EDT 12/14/2024 2:23 PM EDT Katharine Whitlock MD CHEMISTRY ORDERABLES Final Resu lt [facility] [employer] [facility] [address] [facility] , [place] [address] * LACTIC ACID (12/14/2024 12:41 PM EDT) Lactic Acid 0.9 0.5 - 1.9 mmol/L 12/14/2024 1:41 PM EDT [facility] Blood VENOUS BLOOD / Unknown Venipuncture / Unknown 12/14/2024 12:41 PM EDT 12/14/2024 1:14 PM EDT Katharine Whitlock MD CHEMISTRY ORDERABLES Final Resu lt Performing Organization Address [facility] Co de Phone Number [facility] [address] [place] [phone] * VITAMIN B6 (PYRIDOXINE) -REF LAB (12/14/2024 12:41 PM EDT) Vit B6 37.9 20.0 - 125.0 nmol/L 12/19/2024 5:11 AM EDT [employer] Comment: INTERPRETIVE INFORMATION: Vitamin B6 (Pyridoxal 5-Phosphate) Pyridoxal 5'-phosphate measured in a specimen collected following an 8-hour or overnight fast accurately indicates vitamin B6 nutritional status. Non-fasting specimen concentration reflects recent vitamin intake. This test was developed and its performance characteristics determined by [employer]. It has not been cleared or approved by the [place] Food and Drug Administration. This test was performed in a CLIA certified laboratory and is intended for clinical purposes. Performed By: [facility] [address] [place] [address] Tool Design Engineer: Uvaldo Youssef MD, PhD CLIA Number: [id number] Blood VENOUS BLOOD / Unknown Venipuncture / Unknown 12/14/2024 12:41 PM EDT 12/14/2024 4:56 PM EDT Katharine Whitlock MD CHEMISTRY ORDERABLES Final Resu lt Performing Organization Address [facility] Co de Phone Number [employer] [address] [place] [address] * VITAMIN B12 LEVEL (12/14/2024 12:41 PM EDT) Vitamin B12 379 232 - 1,245 pg/mL 12/14/2024 6:58 PM EDT [facility] [employer] [place] Blood VENOUS BLOOD / Unknown Venipuncture / Unknown 12/14/2024 12:41 PM EDT 12/14/2024 3:30 PM EDT Narrative [facility]REFERRED [facility] - 12/14/2024 6:58 PM EDT Ingestion of aldair doses of biotin (>5 mg/day) taken within 8 hours of drawing blood sample can interfere with this immunoassay test. us Katharine Whitlock MD CHEMISTRY ORDERABLES Final Resu lt Performing Organization Address [facility] de Phone Number PREFERRED [facility], [facility] [address] [facility] , [address] [place] [phone] * URIC ACID (12/14/2024 12:41 PM EDT) Uric Acid 3.4 2.4 - 5.7 mg/dL 12/14/2024 6:49 PM EDT [facility]REF[facility], [facility] Blood VENOUS BLOOD / Unknown Venipuncture / Unknown 12/14/2024 12:41 PM EDT 12/14/2024 2:23 PM EDT Katharine Whitlock MD CHEMISTRY ORDERABLES Final Resu lt Performing Organization Address [facility] de Phone Number [facility]REFERRED [facility], [facility] [address] [facility] , [place] [address] * (ABNORMAL) IRON+TIBC (12/14/2024 12:41 PM EDT) Iron 78 30 - 160 mcg/dL 12/14/2024 6:49 PM EDT [facility] Transferrin 298 200 - 360 mg/dL 12/14/2024 6:49 PM EDT [facility] [employer] Saturation 19(L) 20 - 50 % 12/14/2024 6:49 PM EDT [facility] TIBC 417(H) 250 - 400 mcg/dL 12/14/2024 6:49 PM EDT [facility] Blood VENOUS BLOOD / Unknown Venipuncture / Unknown 12/14/2024 12:41 PM EDT 12/14/2024 2:23 PM EDT Katharine Whitlock MD CHEMISTRY ORDERABLES Final Resu lt [facility] [address] [facility] , [place] [address] * (ABNORMAL) COMPREHENSIVE METABOLIC PANEL (12/14/2024 12:41 [...] mL/min/1.7 3 m2 12/14/2024 6:49 PM EDT [facility] Comment:Estimated GFR was ca lculated using the CKD-EPIcr (2020) equation refit without race. The equation is recommended by the National Kidney Foundation - [place] [employer] Nephrology Task Force. Blood VENOUS BLOOD / Unknown Venipuncture / Unknown 12/14/2024 12:41 PM EDT 12/14/2024 2:23 PM EDT Katharine Whitlock MD CHEMISTRY ORDERABLES Final Resu lt Performing Organization Address City/[facility]/ZIP Co de Phone Number [facility] [address] [facility] , [place] [address] * C-REACTIVE PROTEIN (12/14/2024 12:41 PM EDT) CRP <3.00 <=5.00 mg/L 12/14/2024 7:13 [address]T [facility] Blood VENOUS BLOOD / Unknown Venipuncture / Unknown 12/14/2024 12:41 PM EDT 12/14/2024 2:23 PM EDT Katharine Whitlock MD CHEMISTRY ORDERABLES Final Resu lt Performing Organization Address [facility] Co de Phone Number [facility] [employer] [facility] [address] [facility] , [place] [address] * US THYROID (12/12/2024 12:48 [...] 12:48 PM CLINICAL HISTORY: Thyroid nodule(s). E03.9-Hypothyroidism, [id number]. COMPARISON: None. PROCEDURE COMMENTS: Sonographic evaluation of [...] 12:48 PM CLINICAL HISTORY: Thyroid nodule(s). E03.9-Hypothyroidism, [id number]. COMPARISON: None. PROCEDURE COMMENTS: Sonographic evaluation of [...] documented as of this encounter Care Teams Rehab Department Manager Relationship Specialty Start Date End Date Na Ang MD [address] [place] [phone] Consulting Physician Ophthalmology 07/10/20 documented as of this encounter
--- OUTSIDE RECORDS SUMMARY | 2024-12-12 12:22 | XMS_ITS | Encounter Summary ---
Author Organization [place] [address] Care Team Providers Care College Intern Name Role Phone Na Ang MD Unavailable [phone] Reason for Referral * Ultrasound (Routine) - Pending Review Specialty Diagnoses / Procedures Referred By Contac t Referred To Contact Radiology Diagnoses Acquired hypothyroidism Procedures US THYROID Katharine Whitlock MD [address] [place] [phone] Phone: tel: fax: Referral ID Status Reason Start Date Expiration Date V isits Requested Visits Authorized [id number] Pending Review 11/27/2024 11/27/2025 1 1 Reason for Visit * Ultrasound (Routine) - Pending Review Specialty Diagnoses / Procedures Referred By Alpesh correia Referred To Contact Radiology Diagnoses Acquired hypothyroidism Procedures US THYROID Katharine Whitlock MD 1500 [facility] [address] [place] [phone] Phone: tel: fax: Referral ID Status Reason Start Date Expiration Date V isits Requested Visits Authorized [id number] Pending Review 11/27/2024 11/27/2025 1 1 Encounter Details Date Type Department Care Team (Latest Contact Info) Description 12/12/2024 12:22 PM EDT - 12/12/2024 11:59 PM EDT Hospital Encounter [facility] [address] [place] [address] Katharine Whitlock MD [address] [facility] [address] [place] [address] Acquired hypothyroidism Discharge Disposition: Home [...] Date Recorded PHQ-2 Total Score 0 07/28/2022 [facility] [place] of Occupat ional Health - Occupational Stress [...] (ASTELIN) 137 mcg (0.1 %) Nasl Aerosol, [place] USE 1 SPRAY(S) IN EACH NOSTRIL TWICE [...] Info) Description 01/16/2025 11:30 AM EDT Telemedicine [facility] Diabetes [place] [address] [facility] [address] [place] [phone] Katharine Whitlock MD [address] [facility] [address] [place] [address] 08/15/2025 1:40 PM EDT Office Visit [facility] [address] [facility] [address] [place] [phone] Na Ang MD 1500 [facility] [address] [place] [address] documented as of this encounter [...] 12:48 PM CLINICAL HISTORY: Thyroid nodule(s). E03.9-Hypothyroidism, [id number]. COMPARISON: None. PROCEDURE COMMENTS: Sonographic evaluation of [...] 12:48 PM CLINICAL HISTORY: Thyroid nodule(s). E03.9-Hypothyroidism, [id number]. COMPARISON: None. PROCEDURE COMMENTS: Sonographic evaluation of [...] documented as of this encounter Care Teams College Intern Relationship Specialty Start Date End Date Na Ang MD [address] [phone] Consulting Physician Ophthalmology 07/10/20 documented as of this encounter
--- OUTSIDE RECORDS SUMMARY | 2024-12-14 12:28 | XMS_ITS | Encounter Summary ---
Author [place] [address] Care Team Providers Care Threader Name Role Phone Na Ang MD Unavailable [phone] Encounter Details Date Type Department Care Team (Latest Contact Info) Description 12/14/2024 12:28 PM EDT - 12/14/2024 11:59 PM EDT Hospital Encounter [facility] [address] [place] [phone] Acquired hypothyroidism; Chronic fatigue; Other hyperlipidemia; Vitamin [...] Date Recorded PHQ-2 Total Score 0 07/28/2022 [facility] [place] of Occupat ional Health - Occupational Stress [...] No 12/18/2020 1:08 PM EDT Adriana Anders CHIRS Kat documented in this encounter Medications at Time of Discharge albuterol (PROVENTIL HFA;VENTOLIN HFA) 90 mcg/actuation Inhl HFA Aerosol Inhaler Inhale 2 puffs every 4 hours by inhalation route. amLODIPine (NORVASC) 10 mg Oral Tablet 12/07/2022 azelastine (ASTELIN) 137 mcg (0.1 %) Nasl Aerosol, [place] USE 1 SPRAY(S) IN EACH NOSTRIL [...] 01/16/2025 11:30 AM EDT Telemedicine [facility] [address] [phone] Katharine Whitlock MD [address] [phone] 08/15/2025 1:40 PM EDT Office Visit SEP Ophthalmology Cov [address] [phone] Na Ang MD [address] [phone] documented as of this encounter Goals Goal [...] 57 >=50 mg/dL 12/14/2024 4:58 PM EDT [facility] Blood VENOUS BLOOD / Unknown Venipuncture / Unknown 12/14/2024 4:27 PM EDT 12/14/2024 4:27 PM EDT us Katharine Whitlock MD CHEMISTRY ORDERABLES Final Resu lt Performing Organization Address City/[facility] de Phone Number [facility] [address] [place] [address] * GLUCOSE 2.5 HOUR (12/14/2024 3:52 PM EDT) Gluc 2.5 Hr 80 >=50 mg/dL 12/14/2024 4:36 PM EDT [facility] Blood VENOUS BLOOD / Unknown Venipuncture / Unknown 12/14/2024 3:52 PM EDT 12/14/2024 3:52 PM EDT us Katharine Whitlock MD CHEMISTRY ORDERABLES Final Resu lt Performing Organization Address [facility] de Phone Number [facility] [address] [place] [address] * GLUCOSE HYPOGLYCEMIA 2 HOUR (GTT) (12/14/2024 3:16 PM EDT) Gluc 2 Hr 84 <140 mg/dL 12/14/2024 3:52 PM EDT [facility] Blood VENOUS BLOOD / Unknown Venipuncture / Unknown 12/14/2024 3:16 PM EDT 12/14/2024 3:16 PM EDT us Katharine Whitlock MD CHEMISTRY ORDERABLES Final Resu lt Performing Organization Address [facility] de Phone Number [facility] [address] [place] [address] * GLUCOSE 1.5 HOUR (12/14/2024 2:42 PM EDT) Glu 1.5 Hr 87 mg/dL 12/14/2024 3:31 PM EDT [facility] Blood VENOUS BLOOD / Unknown Venipuncture / Unknown 12/14/2024 2:42 PM EDT 12/14/2024 2:42 PM EDT us Katharine Whitlock MD CHEMISTRY ORDERABLES Final Resu lt Performing Organization Address City/[facility]/ZIP Co de Phone Number [facility] [address] [place] [address] * GLUCOSE HYPOGLYCEMIA 1 HOUR (GTT) (12/14/2024 2:11 PM EDT) Gluc 1 Hr 89 - mg/dL 12/14/2024 3:02 PM EDT [facility] Blood VENOUS BLOOD / Unknown Venipuncture / Unknown 12/14/2024 2:11 PM EDT 12/14/2024 2:11 PM EDT us Katharine Whitlock MD CHEMISTRY ORDERABLES Final Resu lt Performing Organization Address [facility] de Phone Number [facility] [address] [place] [address] * GLUCOSE .5 HOUR (12/14/2024 1:36 PM EDT) Gluc .5 Hr 136 mg/dL 12/14/2024 2:12 PM EDT [facility] Blood VENOUS BLOOD / Unknown Venipuncture / Unknown 12/14/2024 1:36 PM EDT 12/14/2024 1:34 PM EDT us Katharine Whitlock MD CHEMISTRY ORDERABLES Final Resu lt Performing Organization Address City/[facility] Co de Phone Number [facility] [address] [place] [address] * GLUC HYPOGLYCEMIA FASTING (GTT) (12/14/2024 12:41 PM EDT) Pathologist [facility] Glucose Fasting 92 <100 mg/dL 12/14/2024 1:33 PM EDT [facility] Blood VENOUS BLOOD / Unknown Venipuncture / Unknown 12/14/2024 12:41 PM EDT 12/14/2024 1:07 PM EDT Katharine Whitlock MD CHEMISTRY ORDERABLES Final Resu lt [facility] [address] [place] [address] * ADRENOCORTICOTROPIC HORMONE -REF LAB (12/14/2024 12:41 PM EDT) [facility] [address] ACTH 17.4 7.2 - 63.3 pg/mL 12/17/2024 7:33 PM EDT [employer] Comment: INTERPRETIVE INFORMATION: Adrenocorticotropic Hormone Reference interval based on samples collected between 7 a.m. and 10 a.m. No reference intervals established for p.m. collections. Pediatric reference values are the same as adults (Acta Paediatr Scand 1981;70:341-345). This assay measures intact ACTH 1-39; some types of synthetic ACTH and ACTH fragments are not detected by this assay. Performed By: [facility] [address] [place] [address] Washtub Worker: Uvaldo Youssef MD, PhD CLIA Number: [id number] Blood VENOUS BLOOD / Unknown Venipuncture / Unknown 12/14/2024 12:41 PM EDT 12/14/2024 2:19 PM EDT Katharine Whitlock MD CHEMISTRY ORDERABLES Final Resu lt [facility] [address] [place] [address] * CORTISOL (12/14/2024 12:41 PM EDT) Pathologist [facility] Cortisol 5.82 mcg/dL 12/14/2024 6:5 8 PM EDT [facility] Blood VENOUS BLOOD / Unknown Venipuncture / Unknown 12/14/2024 12:41 PM EDT 12/14/2024 3:30 PM EDT Narrative [facility] - 12/14/2024 6:58 PM EDT AM: 4.82 [...] ORDERABLES Final Resu lt Performing Organization Address [facility] Co de Phone Number [facility] [address] [place] [address] , [place] [address] * (ABNORMAL) DEHYDROEPIANDROSTERONE SULFATE (12/14/2024 12:41 PM EDT) Dhea Sulfate 10.40(L) 12.00 - 154.00 mcg/dL 12/14/2024 6:58 PM EDT [facility] Blood VENOUS BLOOD / Unknown Venipuncture / Unknown 12/14/2024 12:41 PM EDT 12/14/2024 3:30 PM EDT Narrative [facility] - 12/14/2024 6:58 PM EDT Ingestion of aldair doses of biotin (>5 mg/day) taken within 8 hours of drawing blood sample can interfere with this immunoassay test. Katharine Whitlock MD CHEMISTRY ORDERABLES Final Resu Performing Organization Address City/[facility]/ZIP Co de Phone Number [facility] [address] [place] [address] , [place] [address] * LUTEINIZING HORMONE (12/14/2024 12:41 PM EDT) LH 44.10 mIU/mL 12/14/2024 6:58 PM EDT [facility] [email or web address] Comment: Suggested Reference Ranges (mIU/mL) Females Follicular Phase 2.4 - 12.6 Ovulation Phase 14.0 - 95.6 Luteal Phase 1.0 - 11.4 Postmenopause 7.7 - 58.5 Males 1.7 - 8.6 Blood VENOUS BLOOD / Unknown Venipuncture / Unknown 12/14/2024 12:41 PM EDT 12/14/2024 3:30 PM EDT Narrative [facility] [email or web address] - 12/14/2024 6:58 PM EDT Ingestion of aldair doses of biotin (>5 mg/day) taken within 8 hours of drawing blood sample can interfere with this immunoassay test. Katharine Whitlock MD CHEMISTRY ORDERABLES Final Resu lt Performing Organization Address City/State/[facility] Co de Phone Number [facility] [email or web address] 1 [facility] , [place] [address] * THYROGLOBULIN ANTIBODY -REF LAB (12/14/2024 12:41 PM EDT) Pathologist [facility] Thyroglob Ab <1.5 0.0 - 4.0 IU/mL 12/16/2024 6:43 AM EDT [employer] Comment: INTERPRETIVE INFORMATION: Thyroglobulin Antibody A value of 4.0 IU/mL or less indicates a negative result for thyroglobulin antibodies. The Thyroglobulin Antibody assay is being performed using the Chloe Portales Access DxI method. Performed By: [facility] [address] [place] [id number] Washtub Worker: Uvaldo Youssef MD, PhD CLIA Number: [id number] Blood VENOUS BLOOD / Unknown Venipuncture / Unknown 12/14/2024 12:41 PM EDT 12/14/2024 2:31 PM EDT Katharine Whitlock MD IMMUNOLOGY ORDERABLES Final Res ult Performing Organization Address City/State/[facility] Co de Phone Number [facility] [address] [place] [address] * THYROID PEROXIDASE (TPO) ANTIBODY (12/14/2024 12:41 PM EDT) TPO Ab <3.00 <=5.59 IU/mL 12/14/2024 7:09 PM EDT [facility] [email or web address] Blood VENOUS BLOOD / Unknown Venipuncture / Unknown 12/14/2024 12:41 PM EDT 12/14/2024 2:22 PM EDT Katharine Whitlock MD IMMUNOLOGY ORDERABLES Final Res ult Performing Organization Address [facility] de Phone Number [facility] [employer] [address] , [place] [address] * T3 FREE (12/14/2024 12:41 PM EDT) Pathologist [facility] T3 Free 2.24 2.00 - 4.40 pg/mL 12/14/2024 6:49 PM EDT [facility] [email or web address] Blood VENOUS BLOOD / Unknown Venipuncture / Unknown 12/14/2024 12:41 PM EDT 12/14/2024 2:23 PM EDT Narrative [facility] [email or web address] - 12/14/2024 6:49 PM EDT Ingestion of aldair doses of biotin (>5 mg/day) taken within 8 hours of drawing blood sample can interfere with this immunoassay test. Katharine Whitlock MD CHEMISTRY ORDERABLES Final Resu lt Performing Organization Address [facility] Co de Phone Number [facility] [email or web address] 1 [facility] , [place] [address] * T4, FREE (THYROXINE) (12/14/2024 12:41 PM EDT) Free T4 1.41 0.80 - 1.80 ng/dL 12/14/2024 6:49 PM EDT [facility] [employer] [facility] Blood VENOUS BLOOD / Unknown Venipuncture / Unknown 12/14/2024 12:41 PM EDT 12/14/2024 2:23 PM EDT Narrative [facility] [employer] [facility] - 12/14/2024 6:49 PM EDT Ingestion of aldair doses of biotin (>5 mg/day) taken within 8 hours of drawing blood sample can interfere with this immunoassay test. Katharine Whitlock MD CHEMISTRY ORDERABLES Final Resu Performing Organization Address [facility] Co de Phone Number [facility] [employer] , [place] [id number] * THYROID STIMULATING HORMONE (12/14/2024 12:41 PM EDT) TSH 0.737 0.270 - 4.200 mcIU/mL 12/14/2024 6:49 PM EDT [facility] [email or web address] Blood VENOUS BLOOD / Unknown Venipuncture / Unknown 12/14/2024 12:41 PM EDT 12/14/2024 2:23 PM EDT Narrative [facility] - 12/14/2024 6:49 PM EDT Ingestion of aldair doses of biotin (>5 mg/day) taken within 8 hours of drawing blood sample can interfere with this immunoassay test. Katharine Whitlock MD CHEMISTRY ORDERABLES Final Resu Performing Organization Address [facility] de Phone Number [facility] [employer] , [place] [address] * PARATHYROID HORMONE INTACT (12/14/2024 12:41 PM EDT) PTH Intact 27.90 15.00 - 65.00 pg/mL 12/14/2024 6:35 PM EDT [facility] Blood VENOUS BLOOD / Unknown Venipuncture / Unknown 12/14/2024 12:41 PM EDT 12/14/2024 2:31 PM EDT Narrative [employer] - 12/14/2024 6:35 PM EDT Intact [...] CHEMISTRY ORDERABLES Final Resu Performing Organization Address [facility] Co de Phone Number [facility] [employer] [address] , [place] [address] * VITAMIN D, 1,25-DIHYDROXY -REF LAB (12/14/2024 12:41 PM EDT) [facility] [address] Vit D 1,25 46.9 19.9 - 79.3 pg/mL 12/16/2024 2:37 PM EDT [employer] Comment: INTERPRETIVE INFORMATION: Vitamin D, 1,25-Dihydroxy This test is primarily indicated during patient evaluation for hypercalcemia and renal failure. A normal result does not rule out Vitamin D deficiency. The recommended test for diagnosing Vitamin D deficiency is Vitamin D 25-hydroxy. Performed By: [facility] [address] [place] [address] Washtub Worker: Uvaldo Youssef MD, PhD CLIA Number: [id number] Blood VENOUS BLOOD / Unknown Venipuncture / Unknown 12/14/2024 12:41 PM EDT 12/14/2024 2:31 PM EDT Katharine Whitlock MD CHEMISTRY ORDERABLES Final Resu Performing Organization Address [facility] Co de Phone Number [facility] [address] [place] [address] * VITAMIN D 25 HYDROXY (12/14/2024 12:41 PM EDT) Vit D 25 OH 72.0 30.0 - 150.0 ng/mL 12/14/2024 6:58 PM EDT [facility] [email or web address] Comment: Preferred: >= 30 ng/mL Insufficient: 21-29 [...] MD CHEMISTRY ORDERABLES Final Resu lt [facility] [email or web address] 1 [facility] , [place] [address] * LIPID PANEL REFLEX (12/14/2024 12:41 PM EDT) Pathologist [facility] Cholesterol 158 <200 mg/dL 12/14/2024 6:49 PM EDT [facility] [email or web address] Comment: < 200 Desirable 200 - 239 Borderline High >= 240 High Triglyceride 97 <150 mg/dL 12/14/2024 6:49 PM EDT [facility] Comment: < 150 Normal 150 - 199 Borderline High 200 - 499 High >= 500 Very High HDL 49 >=40 mg/dL 12/14/2024 6:49 PM EDT [facility] Comment: > 60 Optimal 40 - 60 Acceptable < 40 Low LDL Calculated 91 <100 mg/dL 12/14/2024 6:49 PM EDT [facility] Comment: < 100 Optimal 100 - 129 Near or above optimal 130 - 159 Borderline High 160 - 189 High >= 190 Very High The National Institutes of Health (NIH) equation is used for all lipid panels that report calculated LDL (LDL-C). Non-HDL-C Calculated 109 <=129 mg/dL 12/14/2024 6:49 PM EDT [facility] [email or web address] Comment: <130 Desirable 130-159 Above Desirable 160-189 Borderline High 190-219 High >= 220 Very High Fasting Specimen? Yes None 025 6:49 PM EDT [facility] [employer] [facility] Blood VENOUS BLOOD / Unknown Venipuncture / Unknown 12/14/2024 12:41 PM EDT 12/14/2024 2:23 PM EDT Katharine Whitlock MD CHEMISTRY ORDERABLES Final Resu lt [facility] [employer] [facility] 1 [facility] , [address] [place] [id number] * LIPOPROTEIN (A) (12/14/2024 12:41 PM EDT) Lipoprotein (a) 16 <30 mg/dL 7:13 PM EDT [facility] [employer] [facility] Blood VENOUS BLOOD / Unknown Venipuncture / Unknown 12/14/2024 12:41 PM EDT 12/14/2024 2:23 PM EDT Katharine Whitlock MD CHEMISTRY ORDERABLES Final Resu lt Performing Organization Address City/[facility]/ZIP Co de Phone Number [facility] 1 [facility] , [place] [address] * LACTIC ACID (12/14/2024 12:41 PM EDT) Lactic Acid 0.9 0.5 - 1.9 mmol/L 12/14/2024 1:41 PM EDT [facility] Blood VENOUS BLOOD / Unknown Venipuncture / Unknown 12/14/2024 12:41 PM EDT 12/14/2024 1:14 PM EDT Katharine Whitlock MD CHEMISTRY ORDERABLES Final Resu lt [facility] [address] [place] [address] * VITAMIN B6 (PYRIDOXINE) -REF LAB (12/14/2024 12:41 PM EDT) Pathologist [facility] Vit B6 37.9 20.0 - 125.0 nmol/L 12/19/2024 5:11 AM EDT [employer] Comment: INTERPRETIVE INFORMATION: Vitamin B6 (Pyridoxal 5-Phosphate) Pyridoxal 5'-phosphate measured in a specimen collected following an 8-hour or overnight fast accurately indicates vitamin B6 nutritional status. Non-fasting specimen concentration reflects recent vitamin intake. This test was developed and its performance characteristics determined by [facility]. It has not been cleared or approved by the [place] Food and Drug Administration. This test was performed in a CLIA certified laboratory and is intended for clinical purposes. Performed By: [facility] [address] [place] [address] Washtub Worker: Uvaldo Youssef MD, PhD CLIA Number: [id number] Blood VENOUS BLOOD / Unknown Venipuncture / Unknown 12/14/2024 12:41 PM EDT 12/14/2024 4:56 PM EDT Katharine Whitlock MD CHEMISTRY ORDERABLES Final Resu Performing Organization Address City/[facility]/ZIP Co de Phone Number [facility] [address] [place], [place] [id number] * VITAMIN B12 LEVEL (12/14/2024 12:41 PM EDT) [facility] [address] Vitamin B12 379 232 - 1,245 pg/mL 12/14/2024 6:58 PM EDT [facility] [employer] Blood VENOUS BLOOD / Unknown Venipuncture / Unknown 12/14/2024 12:41 PM EDT 12/14/2024 3:30 PM EDT Narrative [facility] [employer], [facility] - 12/14/2024 6:58 PM EDT Ingestion of aldair doses of biotin (>5 mg/day) taken within 8 hours of drawing blood sample can interfere with this immunoassay test. us Katharine Whitlock MD CHEMISTRY ORDERABLES Final Resu lt [facility], [facility] 1 [facility] , [place] [address] * URIC ACID (12/14/2024 12:41 PM EDT) Pathologist [facility] Uric Acid 3.4 2.4 - 5.7 mg/dL 12/14/2024 6:49 PM EDT [facility], [facility] Blood VENOUS BLOOD / Unknown Venipuncture / Unknown 12/14/2024 12:41 PM EDT 12/14/2024 2:23 PM EDT Katharine Whitlock MD CHEMISTRY ORDERABLES Final Resu Performing Organization Address [facility] Co de Phone Number [facility] [employer], [facility] 1 [facility] , [place] [address] * (ABNORMAL) IRON+TIBC (12/14/2024 12:41 PM EDT) Pathologist [facility] Iron 78 30 - 160 mcg/dL 12/14/2024 6:49 PM EDT [facility] [employer] 298 200 - 360 mg/dL 12/14/2024 6:49 PM EDT [facility] [employer] Saturation 19(L) 20 - 50 % 12/14/2024 6:49 PM EDT [facility] TIBC 417(H) 250 - 400 mcg/dL 12/14/2024 6:49 PM EDT [facility], [facility] Blood VENOUS BLOOD / Unknown Venipuncture / Unknown 12/14/2024 12:41 PM EDT 12/14/2024 2:23 PM EDT Katharine Whitlock MD CHEMISTRY ORDERABLES Final Resu Performing Organization Address City/[facility]/ZIP Co de Phone Number [facility] [employer], [facility] 1 [facility] , [place] [address] * (ABNORMAL) COMPREHENSIVE METABOLIC PANEL [...] recommended by the National Kidney Foundation - [place] [employer] of Nephrology Task Force. Blood VENOUS BLOOD / Unknown Venipuncture / Unknown 12/14/2024 12:41 PM EDT 12/14/2024 2:23 PM EDT us Katharine Whitlock MD CHEMISTRY ORDERABLES Final Resu lt Performing Organization Address City/[facility]/ZIP Co de Phone Number [facility] [employer] [facility] 1 [facility] , [place] [address] * C-REACTIVE PROTEIN (12/14/2024 12:41 PM EDT) [facility] [address] CRP <3.00 <=5.00 mg/L 12/14/2024 7:13 PM EDT [facility] [email or web address] Blood VENOUS BLOOD / Unknown Venipuncture / Unknown 12/14/2024 12:41 PM EDT 12/14/2024 2:23 PM EDT Result [facility] Katharine Whitlock MD CHEMISTRY ORDERABLES Final Resu lt Performing Organization Address City/[facility] Co de Phone Number [facility] [email or web address] 1 [facility] , [place] [address] [place] [address] documented in this encounter Visit Diagnoses Diagnosis Acquired hypothyroidism Unspecified hypothyroidism Chronic fatigue Other malaise and fatigue Other hyperlipidemia Vitamin D deficiency Unspecified vitamin D deficiency Secondary adrenal insufficiency Glucocorticoid deficiency documented in this encounter Additional Health Concerns Assessment Noted Time A fall risk assessment has been complete d for the patient 07/28/2022 2:08 PM EDT documented as of this encounter Care Teams Threader Relationship Specialty Start Date End Date Na Ang MD [address] [phone] Consulting Physician Ophthalmology 07/10/20 documented as of this encounter
--- OUTSIDE RECORDS SUMMARY | 2024-12-27 21:43 | XMS_ITS | Encounter Summary ---
Author Organization [facility] Address [address] [place] [address] Care Team Providers Care Medicare Sales Representative Name Role Phone Leroy Gordon APRN Primary Care Provider [phone] Stefan Lennon MD Unavailable [phone] Vikas Green MD Unavailable [phone] Reason for Visit * Reason Comments Multiple Complaints * Auth/Cert (Routine) Specialty Diagnoses / Procedures Referred By Alpesh correia Referred To Contact Diagnoses pain [facility] [address] [place] [address] Phone: tel: [facility] Emergency Department [address] [place] [address] Phone: tel: Referral ID Status Reason Start Date Expiration Date Visits Re quested Visits Authorized [id number] 1 1 Encounter Details Date Type Department Care Team ([facility] st Contact Info) Description 12/27/2024 9:43 PM EDT - 12/28/2024 1:27 PM EDT Hospital Encounter [facility] Emergency Department [address] [place] [address] Moncho Gooden MD [address] [place] [address] Numbness and tingling of both [...] 1 Month) No 12/28/2024 7:00 AM EDT Tmoas Abad RN 6. Suicidal Behavior (Lifetime) No 12/28/2024 7:00 AM EDT Tomas Abad RN documented as of this encounter Discharge Instructions * Discharge Instructions* Chritsian Barrett MD - 12/28/2024 11:03 AM EDT [...] from the original note were not included. [id number] Relieving Back Pain Back pain is a [...] use ice several times a day. Medicines Bdqo-iyc-ekgwkoc pain relievers include acetaminophen and anti-inflammatory medicines. [...] heat. Last Reviewed Date: 2024 00:00:00 ?? [id number] [employer]. All rights reserved. This information is not intended as a substitute for professional medical care. Always follow your healthcare professional's instructions. * Zainab Chavezbemarcus Combs RN - 12/28/2024 11:25 AM EDT Images from the original note were not included. [id number] Self-Care for Low Back Pain Most people [...] Never sleep on a heating pad. ? Baqd-kmc-bsavqtn medicine can help control pain and swelling. [...] develop Last Reviewed Date: 2023 00:00:00 ?? [id number] [employer]. All rights reserved. This information is not intended as a substitute for professional medical care. Always follow your healthcare professional's instructions. * Discharge Summary - Christian Barrett MD - 12/28/2024 11:18 AM EDT Hospitalization Admit Date/Time: 12/27/2024 9:43 PM Admitting Attending: jennifer Discharge Date: 12/28/24 Discharge Attending Physician: Moncho Gooden MD PCP name and Address: Leroy Gordon, MERCH[employer]ISE WORKER [address] [facility] [place] [id number] Referring provider name and address: No referring [...] 01/01/2025 10:00 AM Ashely Guy APRN [facility] 07/05/2025 11:40 AM Devin Monahan MD [facility] [...] as burning . 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: No Patient History Past Medical History[1] [...] Angio Abdomen Pelvis Once Final result MONCHO UTCKER I 12/27/[address] Lumbar Spine wo [...] Description 07/05/2025 11:40 AM EST Office Visit [facility] [address] [place] [address] Devin Monahan MD [address] [place] [address] documented as of this encounter Procedures Procedure [...] Tucker MD LAB URINE [place] [address] * Urine Kapoor Panel (12/27/2024 11:02 PM EDT) Extra Reflex urine culture not indicated 12/28/2024 1:04 AM EDT [facility] Urine Urine specimen obtained by clean catch procedure / Unknown Non-blood Collection / Unknown 12/27/2024 11:02 PM EDT 12/27/2024 11:28 PM EDT Moncho Tucker MD LAB URINE ORDERABLES Final Result [facility] [address] [place] [address] * (ABNORMAL) Urinalysis with reflex microscopic (Culture NOT Included) (12/27/2024 11:02 PM EDT) Color, Urine Yellow LAB URINALYSIS - AUTOMATED METHOD 12/27/2024 11:53 PM EDT [facility] Clarity, Urine Clear LAB URINALYSIS - AUTOMATED METHOD 12/27/2024 11:53 PM EDT [facility] Spec [place], Urine 1.021 1.005 - 1.030 LAB URINALYSIS - AUTOMATED METHOD 12/27/2024 11:53 PM EDT [facility] pH, Urine 6.5 5.0 - 8.0 LAB URINALYSIS - AUTOMATED METHOD 12/27/2024 11:53 PM EDT [facility] Protein, Urine Negative Negative mg/dL LAB URINALYSIS - AUTOMATED METHOD 12/27/2024 11:53 PM EDT [facility] Glucose, Urine Negative Negative mg/dL LAB URINALYSIS - AUTOMATED METHOD 12/27/2024 11:53 PM EDT [facility] Ketones, Urine Negative Negative mg/dL LAB URINALYSIS - AUTOMATED METHOD 12/27/2024 11:53 PM EDT [facility] Blood, Urine Small(A) Negative LAB URINALYSIS - AUTOMATED METHOD 12/27/2024 11:53 PM EDT [facility] Bilirubin, Urine Negative Negative LAB URINALYSIS - AUTOMATED METHOD 12/27/2024 11:53 PM EDT [facility] Urobilinogen, Urine 0.2 0.2 to 1.0 mg/dL LAB URINALYSIS - AUTOMATED METHOD 12/27/2024 11:53 PM EDT [facility] Leukocytes, Urine Negative Negative LAB URINALYSIS - AUTOMATED METHOD 12/27/2024 11:53 PM EDT [facility] Nitrite, Urine Negative Negative LAB URINALYSIS - AUTOMATED METHOD 12/27/2024 11:53 PM EDT [facility] RBC, Urine <1 0 to 3 /HPF LAB URINALYSIS - AUTOMATED METHOD 12/27/2024 11:53 PM EDT [facility] Comment:This result was prev iously suppressed from the chart. WBC, Urine 0 - 5 0 to 5 /HPF LAB URINALYSIS - AUTOMATED METHOD 12/27/2024 11:53 PM EDT [facility] Comment:This result was prev iously suppressed from the chart. Squamous Epithelial Cells 0 - 2 0 to 5 /HPF LAB URINALYSIS - AUTOMATED METHOD 12/27/2024 11:53 PM EDT [facility] Comment:This result was prev iously suppressed from the chart. Hyaline Casts 0 - 2 0 to 5 /LPF LAB URINALYSIS - AUTOMATED METHOD 12/27/2024 11:53 PM EDT [facility] Comment:This result was prev iously suppressed from the chart. Bacteria, Urine Negative Negative LAB URINALYSIS - AUTOMATED METHOD 12/27/2024 11:53 PM EDT [facility] Comment:This result was prev iously suppressed from the chart. Urine Urine specimen obtained by clean catch procedure / Unknown Non-blood Collection / Unknown 12/27/2024 11:02 PM EDT 12/27/2024 11:16 PM EDT us Moncho Tucker MD LAB URINE ORDERABLES Final Result [facility] [address] [place] [address] * CT Angio Abdomen Pelvis (12/27/2024 10:18 [...] Total DLP (Dose-Length Product): 2981.63 mGy.cm (accession [id number]), 2981.63 mGy.cm (accession [id number]), 2981.63 mGy.cm (accession [id number]). Please note: The reported value represents the [...] mild sclerosis to the left side uses [place] chronic in appearance. There are no acute [...] Total DLP (Dose-Length Product): 2981.63 mGy.cm (accession [id number]),2981.63 mGy.cm (accession [id number]), 2981.63 mGy.cm (accession [id number]).Please note: The reported value represents the total [...] Total DLP (Dose-Length Product): 2981.63 mGy.cm (accession [id number]), 2981.63 mGy.cm (accession [id number]), 2981.63 mGy.cm (accession [id number]). Please note: The reported value represents the [...] Total DLP (Dose-Length Product): 2981.63 mGy.cm (accession [id number]),2981.63 mGy.cm (accession [id number]), 2981.63 mGy.cm (accession [id number]).Please note: The reported value represents the total [...] Total DLP (Dose-Length Product): 2981.63 mGy.cm (accession [id number]), 2981.63 mGy.cm (accession [id number]), 2981.63 mGy.cm (accession [id number]). Please note: The reported value represents the [...] Total DLP (Dose-Length Product): 2981.63 mGy.cm (accession [id number]),2981.63 mGy.cm (accession [id number]), 2981.63 mGy.cm (accession [id number]).Please note: The reported value represents the total [...] - 4.5 mg/dL 12/27/2024 10:03 PM EDT [facility] Blood Venous blood specimen / Unknown Venipuncture / Unknown 12/27/2024 9:37 PM EDT 12/27/2024 9:40 PM EDT Moncho Tucker MD LAB BLOOD ORDERABLES Final Result [facility] [address] [place] [address] * Magnesium (12/27/2024 9:37 PM EDT) Magnesium, Plasma 2.1 1.9 - 2.4 mg/dL 12/27/2024 10:03 PM EDT [facility] Blood Venous blood specimen / Unknown Venipuncture / Unknown 12/27/2024 9:37 PM EDT 12/27/2024 9:40 PM EDT us Moncho Tucker MD LAB BLOOD ORDERABLES Final Result [facility] [address] [place] [address] * BMP (12/27/2024 9:37 PM EDT) Glucose, Plasma 97 74 - 99 mg/dL 12/27/2024 10:03 PM EDT [facility] BUN, Plasma 21 8 - 23 mg/dL 12/27/2024 10:03 PM EDT [facility] Creatinine, Plasma 0.97 0.60 - 1.10 mg/dL 12/27/2024 10:03 PM EDT [facility] BUN/Creatinine Ratio 22 12/27/2024 10:03 PM EDT [facility] Sodium, Plasma 139 136 - 145 mmol/L 12/27/2024 10:03 PM EDT [facility] Potassium, Plasma 3.8 3.6 - 4.9 mmol/L 12/27/2024 10:03 PM EDT [facility] Chloride, Plasma 105 97 - 107 mmol/L 12/27/2024 10:03 PM EDT [facility] CO2, Plasma 23 22 - 29 mmol/L 12/27/2024 10:03 PM EDT [facility] Anion Gap 11 6 - 16 mmol/L 12/27/2024 10:03 PM EDT [facility] Total Calcium, Plasma 9.8 8.9 - 10.2 mg/dL 12/27/2024 10:03 PM EDT [facility] eGFRcr 59.2 mL/min/1.7 3m*2 12/27/2024 10:03 PM EDT [facility] Comment:Reported eGFRcr in m L/min/1.73m2 is based the CKD-EPI 2020 equation that does not use a race coefficient. Blood Venous blood specimen / Unknown Venipuncture / Unknown 12/27/2024 9:37 PM EDT 12/27/2024 9:40 PM EDT us Moncho Tucker MD LAB BLOOD ORDERABLES Final Result [facility] [address] [place] [address] * CBC w/diff (12/27/2024 9:37 PM EDT) WBC Count 5.39 3.70 - 10.30 10*3/uL LAB HEMATOLOGY METHOD 12/27/2024 9:42 PM EDT [facility] RBC Count 4.23 3.90 - 5.20 10*6/uL LAB HEMATOLOGY METHOD 12/27/2024 9:42 PM EDT [facility] HGB 12.7 11.2 - 15.7 g/dL LAB HEMATOLOGY METHOD 12/27/2024 9:42 PM EDT [facility] HCT 36.9 34.0 - 45.0 % LAB HEMATOLOGY METHOD 12/27/2024 9:42 PM EDT [facility] Platelet Count 313 155 - 369 10*3/uL LAB HEMATOLOGY METHOD 12/27/2024 9:42 PM EDT [facility] MCV 87 79 - 98 fL LAB HEMATOLOGY METHOD 12/27/2024 9:42 PM EDT [facility] MCH 30.0 26.0 - 32.0 pg LAB HEMATOLOGY METHOD 12/27/2024 9:42 PM EDT [facility] MCHC 34.4 30.7 - 35.5 g/dL LAB HEMATOLOGY METHOD 12/27/2024 9:42 PM EDT [facility] RDW 13.4 11.5 - 14.5 % LAB HEMATOLOGY METHOD 12/27/2024 9:42 PM EDT [facility] MPV 9.4 8.8 - 12.5 fL LAB HEMATOLOGY METHOD 12/27/2024 9:42 PM EDT [facility] nRBC 0.0 <=0.0 per 100 WBCs LAB HEMATOLOGY METHOD 12/27/2024 9:42 PM EDT [facility] Differential Type Automated LAB HEMATOLOGY METHOD 12/27/2024 9:42 PM EDT [facility] Neutrophils % 49 % LAB HEMATOLOGY METHOD 12/27/2024 9:42 PM EDT [facility] Lymphocytes % 36 % LAB HEMATOLOGY METHOD 12/27/2024 9:42 PM EDT [facility] Monocytes % 10 % LAB HEMATOLOGY METHOD 12/27/2024 9:42 PM EDT [facility] Eosinophils % 4 % LAB HEMATOLOGY METHOD 12/27/2024 9:42 PM EDT [facility] Basophils % 1 % LAB HEMATOLOGY METHOD 12/27/2024 9:42 PM EDT [facility] Immature Granulocytes % 0 % LAB HEMATOLOGY METHOD 12/27/2024 9:42 PM EDT [facility] Neutrophils Absolute 2.65 1.60 - 6.10 10*3/uL LAB HEMATOLOGY METHOD 12/27/2024 9:42 PM EDT [facility] Lymphocytes Absolute 1.94 1.20 - 3.90 10*3/uL LAB HEMATOLOGY METHOD 12/27/2024 9:42 PM EDT [facility] Monocytes Absolute 0.51 0.30 - 0.90 10*3/uL LAB HEMATOLOGY METHOD 12/27/2024 9:42 PM EDT [facility] Eosinophils Absolute 0.21 0.00 - 0.50 10*3/uL LAB HEMATOLOGY METHOD 12/27/2024 9:42 PM EDT [facility] Basophils Absolute 0.06 0.00 - 0.10 10*3/uL LAB HEMATOLOGY METHOD 12/27/2024 9:42 PM EDT [facility] Immature Granulocytes Absolute 0.02 0.00 - 0.06 10*3/uL LAB HEMATOLOGY METHOD 12/27/2024 9:42 PM EDT [facility] Blood Venous blood specimen / Unknown Venipuncture / Unknown 12/27/2024 9:37 PM EDT 12/27/2024 9:40 PM EDT Narrative [facility] - 12/27/2024 9:42 PM EDT Therapeutic decision making should be based on absolute values, rather than percentages. us Moncho Tucker MD LAB BLOOD ORDERABLES Final Result [facility] [address] [place] [address] documented in this encounter Visit Diagnoses Diagnosis [...] dose, Starting on Tue12/27/24 at 2208, Until Cher 12/27/24 at 2208, Routine, Imaging Protocol Orders 220 (Given - Provider: Daan Naylor) levothyroxine (Synthroid, Levoxyl) tablet 75 mcg [...] documented as of this encounter Care Teams Medicare Sales Representative Relationship Specialty Start Date End Date Leroy Gordon APRN [address] [place] [address] [phone] PCP - General 10/07/22 Stefan Lennon MD [address] [facility] [place] [id number] Surgeon Neurosurgery 03/01/23 Vikas Green MD [address] [place] [id number] Surgeon Neurosurgery 03/30/23 documented as of this encounter
--- OUTSIDE RECORDS SUMMARY | 2025-01-01 10:00 | XMS_ITS | Encounter Summary ---
Author Organization Healthcare Address [address] [place] [address] Care Team Providers Care Canceling And Cutting Control Clerk Name Role Phone Leroy Gordon APRN Primary Care Provider [phone] Stefan Lennon MD Unavailable [phone] Vikas Green MD Unavailable [phone] Reason for Visit * Reason Comments Follow-up Encounter Details Date Type Department Care Team (Latest Contact Info) Description 01/01/2025 10:00 AM EDT Office Visit [place] [facility] [address] [place] [address] Ashely Guy APRN [address] [place] [address] Spinal stenosis of lumbar region [...] 5/5 5/5 C7: Triceps 5/5 5/5 C8: Fluid Jet Cutter Operator 5/5 5/5 T1: Intrinsics 5/5 5/5 Lower [...] them. I will also bacteria is a [facility] to get updated DEXA scan so we can see what her bone quality is prior to making any surgical decisions. Patientis agreeable. I will contact her once I have discussed with Dr. Green. Patient was instructed to contact me with any issues or concerns. She was given my card and how to contact the office. Ashely Guy APRN [facility] Department of Neurosurgery This note was dictated using voice to text software and may contain errors 40 minutes was spent reviewing previous documentation and imaging, completion of today's documentation, [id number] visit, care coordination and planning [1] Past [...] Description 07/05/2025 11:40 AM EST Office Visit [facility] [address] [place] [address] Devin Monahan MD [address] [place] [phone] documented as of this encounter Visit Diagnoses Diagnosis Spinal stenosis of lumbar region with neurogenic claudication- Primary Chronic low back pain, unspecified back pain laterality, unspecified whether sciatica present Degeneration of intervertebral disc of lumbar region with discogenic back pain and lower extremity pain Neural foraminal stenosis of lumbar spine documented in this encounter Additional Health Concerns Assessment Noted Time A fall risk assessment has been complete d for the patient 01/01/2025 9:53 AM EDT A Body Mass Index follow-up plan has been documented for the patient 01/01/2025 6:39 PM EDT documented as of this encounter Care Teams Canceling And Cutting Control Clerk Relationship Specialty Start Date End Date Leroy Gordon APRN [address] [place] [id number] PCP - General 10/07/22 Stefan Lennon MD [address] [place] [address] Surgeon Neurosurgery 03/01/23 Vikas Green MD [address] [place] [address] Surgeon Neurosurgery 03/30/23 documented as of this encounter
--- NOTE | 2025-01-08 13:29 | XR_ITS ---
FINAL REPORT CLINICAL HISTORY: left ankle pain COMPARISON: None FINDINGS: AP, oblique, and lateral views of the left ankle were obtained. There is no fracture or dislocation. The ankle mortise is intact. Mild degenerative joint disease is present. Soft tissues are unremarkable. IMPRESSION: Mild degenerative joint disease, with no acute osseous abnormality of the left ankle. Reviewed, Interpreted and Dictated by Graciela Weaver MD Transcribed by Terri Wilcox Authenticated and [facility]
--- OUTSIDE RECORDS SUMMARY | 2025-01-08 13:32 | XMS_ITS | Clinical Summary ---
Author Organization [facility] Address [address] [place] [address] Phone Care Team Providers Care Phonograph Needle Tip Maker Name Role Phone Unavailable Unavailable Conditions or Problems No information available. Medications No information available. Medications Administered No information available. Allergies, Adverse Reactions, Alerts No information available. Results No information available. Plan of Care No information available. Procedures No information available. Vital Signs No information available. Immunizations No information available. Advance Directives No information available.
--- OUTSIDE RECORDS SUMMARY | 2025-01-08 13:33 | XMS_ITS | Continuity of Care Document ---
Author Organization [facility] Address [facility] [place] [address] Phone Care Team Providers Care [employer] Sheets Supervisor Name Role Phone Na Ang MD Unavailable [phone] Encounters Date Type Department Care Team Description 5 12:28 PM EDT - 5 11:59 PM EDT Hospital Encounter [facility] [address] [place] [phone] Acquired hypothyroidism; Chronic fatigue; Other hyperlipidemia; Vitamin D deficiency; Secondary adrenal insufficiency Discharge Disposition: Home or Self Care 5 Results Follow-Up [facility] [address] [phone] Katharine Whitlock MD THYROID, C-REACTIVE PROTEIN, COMPREHENSIVE METABOLIC PANEL, Additional followed-up results: 26 5 12:22 PM EDT - 5 11:59 PM EDT Hospital Encounter [facility] [address] [place] [address] Katharine Whitlock MD Acquired hypothyroidism Discharge Disposition: Home or Self Care 5 Results Follow-Up [facility] [address] [place] [address] Katharine Whitlock MD CALCITRIOL- COMPUNET, T3 FREE, VITAMIN B6 (PYRIDOXINE) -REF LAB, Additional followed-up results: 18 5 12:30 PM EDT Office Visit [facility] [address] [place] [address] Katharine Whitlock MD Acquired hypothyroidism (Primary Dx); Secondary adrenal insufficiency; Chronic fatigue; Other hyperlipidemia; Vitamin D deficiency 5 1:00 PM EDT Office Visit [facility] [address] [place] [address] Na nAg MD Pseudophakia (Primary Dx); Bilateral ocular hypertension; Optic neuropathy, left 5 Telephone [facility] [address] [place] [address] Na Ang MD Other (Confirmation Call.) 4 1:20 PM EDT Office Visit [facility] [address] [place] [address] Na Ang MD Keratitis sicca, bilateral (HCC) (Primary Dx) 4 11:00 AM EDT Office Visit [facility] [address] [place] [address] Na Ang MD Optic neuropathy, left (Primary Dx); Bilateral ocular hypertension 3 Patient Outreach [facility] [address] [place] [address] Marlyn Mendez, Buoy Tender Medication Management (Statin Non-adherence) 3 Travel 3 1:50 PM EDT Office Visit [facility] [address] [address] Na Ang MD Keratitis sicca, bilateral (HCC) (Primary Dx); Pseudophakia; Bilateral ocular hypertension; Optic neuropathy, left 3 Patient Outreach [facility] [address] [place] [address] Janet Vogt MD Central Order Completion Outreach (DEXA) 3 Telephone [facility] [address] [facility] [address] [place] [address] Na Ang MD Other (Appt Reschedule) 3 Telephone [facility] [address] [facility] [address] [place] [address] Na Ang MD Other (Appt Reschedule) 3 Patient Outreach [facility] [address] [place] [address] Lon Victoria CPhT Medication Management (Clinical Auto Brake Mechanic: cutting inspector [phone] ) 3 Patient Outreach [facility]P [facility] [address] [place] [address] Lon Victoria CPhT Medication Management (Clinical Auto Brake Mechanic: cutting inspector [phone] ) 3 Patient Outreach [facility]P [facility] [address] [place] [address] Lon Victoria, Anjum Medication Management (Clinical Industrial Organizational Psychologist: cutting inspector [phone]) 3 Refill [facility] [address] [place] [address] Gerardo Purcell MD Medication Refill 3 Refill SEP [facility] Primary Care [address] [place] [address] Janet Vogt MD Medication Refill 3 Refill [facility] [address] [place] [address] Gerardo Purcell MD Medication Refill 3 Orders Only [facility] [address] [place] [address] Chen Cano, MARISSA Hospital discharge follow-up (Primary Dx) 3 Telephone [facility]P H&V [address] [address] Kendy Biggs DO Hypertension 3 2:45 PM EDT Office Visit [facility] [address] [address] Oumar Alves MD Spinal stenosis of lumbar region without neurogenic claudication (Primary Dx); DDD (degenerative disc disease), lumbar; Lumbar pain 3 Telephone SEP [facility] [address] [address] Janet Vogt MD Appointment Needed (ED fu ) 3 Telephone SEP [address] [address] Janet Vogt MD Symptom Call 3 1:45 PM EDT Ancillary Procedure [facility] [address] [place] [address] Oumar Alves MD Cervical pain 3 1:30 PM EDT Office Visit [facility] [address] [place] [address] Oumar Alves MD Spinal stenosis of lumbar region without neurogenic claudication (Primary Dx); Cervical pain; Bilateral leg pain; DDD (degenerative disc disease), lumbar; Trochanteric bursitis of right hip 3 2:45 PM EDT Office Visit [facility]P H&V [address] [address] Kendy Biggs DO Nonobstructive atherosclerosis of coronary artery (Primary Dx); Essential hypertension; Heart murmur; Dyslipidemia; Uncontrolled hypertension 3 Travel 3 8:41 AM EDT - 3 11:59 PM EDT Hospital Encounter [facility] [place] [address] Gerardo Purcell MD Gastroesophageal reflux disease with esophagitis without hemorrhage Discharge Disposition: Home or Self Care 3 Refill [facility] [address] [place] [address] Kendy Biggs, Medication Refill 3 1:45 PM EDT Office Visit [facility] [address] [place] [address] Pebbles Will APRN Primary osteoarthritis of right knee (Primary Dx); Lumbar radiculopathy; Neuropathic pain; Myofascial pain; Sacroiliitis; Pain in both lower extremities; Chronic pain of right thumb; Spondylosis of lumbosacral region without myelopathy or radiculopathy; DDD (degenerative disc disease), lumbar 3 Telephone [facility]P [facility] [address] [place], [place] [id number] Gerardo Purcell MD Other; Medication Management 3 Telephone [facility] Urology NPTFTT [address] [place] [address] Sandra Murrell PA-C Results 3 2:00 PM EDT Office Visit [facility] [address] [place] [address] Janet Vogt MD Essential hypertension (Primary Dx); Peripheral neuropathy, idiopathic; Restless legs syndrome (RLS) 3 3:45 PM EDT Office Visit [facility] [address] [place] [address] Pebbles Will APRN Primary osteoarthritis of right knee (Primary Dx) 3 10:40 AM EDT Office Visit [facility] NPTFTT [address] [place] [address] Sandra Murrell PA-C Group beta Strep positive (Primary Dx); Urinary retention; Cauda equina syndrome with neurogenic bladder (HCC) 3 Telephone [facility] U[facility] NPTFTT [address] [place] [phone] Sandra Murrell PA-C Patient Question 3 Telephone [facility] [address] [place] [address] Kendy Biggs DO Patient Question (Patient was just released from hospital and has some questions for Dr. Biggs's MA about her blood pressure. Please call her back) 3 1:20 PM EDT Office Visit [facility] [address] [facility] [place] [address] Gerardo Purcell MD Acute gastritis without hemorrhage, unspecified gastritis type (Primary Dx) 3 Travel 3 3:00 PM EDT - 3 6:16 PM EDT [facility] [address] [place] [id number] Sameer Gan MD Dysuria (Primary Dx); Suprapubic pressure Discharge Disposition: Home or Self Care 3 2:30 PM EDT Office Visit [facility] [address] [place] [address] Oumar Alves MD Spinal stenosis of lumbar region without neurogenic claudication (Primary Dx) 3 1:20 PM EDT Office Visit [facility] [address] [place] [address] Gerardo Purcell MD Cauda equina syndrome with neurogenic bladder (HCC) (Primary Dx); Irritable bowel syndrome with constipation; Gastroesophageal reflux disease without esophagitis 3 1:15 PM EST Ancillary Procedure [facility] [address] [place] [address] Oumar Alves MD Lumbar pain 3 1:00 PM EST Office Visit [facility] [address] [place] [phone] Oumar Alves MD Spinal stenosis of lumbar region without neurogenic claudication (Primary Dx); DDD (degenerative disc disease), lumbar; Lumbar pain 3 Travel 3 1:10 PM EST - 3 11:59 PM EST Hospital Encounter [facility] [place] [address] Peripheral neuropathy, idiopathic (Primary Dx); Nail disease; Macronychia; Encounter for laboratory testing for COVID-19 virus; Essential hypertension; Other hyperlipidemia; Acquired hypothyroidism; Pre-op testing Discharge Disposition: Home or Self Care 3 Travel 3 2:05 PM EST - 3 11:59 PM EST Hospital Encounter [facility] [place] [address] Macronychia (Primary Dx); Nail disease Discharge Disposition: Home or Self Care [address] [facility] [address] [address] Mikey Christian MD Prior Authorization (Right Knee Inj) 3 2:15 PM EST Office Visit [facility] [address] [place] [phone] Mikey Christian MD Lumbar radiculopathy; Neuropathic pain; Myofascial pain 3 Refill SEP H&V NPTFTT [address] [place] [phone] Kendy Biggs DO Medication Refill 3 1:10 PM EST Office Visit [facility]hthal[facility] [address] [facility] [address] [place] [address] Na Ang MD Optic neuropathy, left (Primary Dx); Bilateral ocular hypertension 3 Telephone [facility] [address] [place] [address] Gerardo Purcell MD Medication Management (FOR HEMORRHOIDS) 3 Travel 3 1:31 PM EST - 3 11:59 PM EST Hospital Encounter [facility] [address] [place] [address] Janet Vogt MD Abdominal pain, unspecified abdominal location Discharge Disposition: Home or Self Care 3 Orders Only [facility] Urology NPTFTT [address] [place] [address] Sandra Murrell PA-C Cauda equina syndrome with neurogenic bladder (HCC) (Primary Dx) 3 3:20 PM EST Office Visit [facility] Urology NPTFTT [address] [place] [address] Sandra Murrell PA-C Microhematuria (Primary Dx) 2 11:00 AM EST Office Visit [facility] [address] [place] [address] Janet Vogt MD Influenza A (Primary Dx); Abdominal pain, unspecified abdominal location; Menopause; Essential hypertension 2 Patient Outreach SEP [address] [place], [place] [id number] Anh Brown, KIRSTEN, COS CM - Referral Line 2 5:51 AM EST - 2 8:24 AM EST Emergency [facility] [place], [place] [id number] Jonas Mayorga MD Patel, Dhruv P, MD Influenza A (Primary Dx); Hematuria, unspecified type Discharge Disposition: Home or Self Care 2 10:15 AM EST Office Visit [facility] [address] [place] [address] Mikey Christian MD Myofascial pain; Lumbar radiculopathy; Neuropathic pain 2 Refill SEP H&V NPTFTT [address] [place] [address] Kendy Biggs, DO Medication Refill 2 Refill [facility] [address] [place] [address] Gerardo Purcell MD Medication Refill 2 9:15 AM EDT Office Visit [facility] [address] [place] [address] Mikey Christian MD Lumbar radiculopathy (Primary Dx); Myofascial pain; Neuropathic pain 2 Travel 2 7:36 AM EDT - 2 11:59 PM EDT Hospital Encounter [facility] [address] [place] [address] Emg, Fredo Ftt Lumbosacral radiculopathy (Primary Dx); Pain in both lower extremities; Carpal tunnel syndrome of left wrist Discharge Disposition: Home or Self Care 2 2:20 PM EDT Ancillary Procedure [address] [phone] Denae Resi MD Cough, unspecified type Discharge Disposition: Home or Self Care 2 1:30 PM EDT Office Visit [address] [address] Denae Reis MD Cough, unspecified type (Primary Dx); Bronchitis 2 2:15 PM EDT Office Visit [facility] [address] [place] [address] Mikey Christian MD Pain in both lower extremities (Primary Dx); Acute bilateral low back pain without sciatica; Sacroiliitis; Myofascial pain 2 10:20 AM EDT Office Visit [facility] [address] [facility], [place] [phone] Gerardo Purcell MD Irritable bowel syndrome with constipation (Primary Dx); Gastroesophageal reflux disease without esophagitis; Cauda equina syndrome with neurogenic bladder (HCC); Nausea; External hemorrhoids 2 2:00 PM EDT Office Visit SEP H&V [address] [phone] Kalyan, Kendy, DO Nonobstructive atherosclerosis of coronary artery (Primary Dx); Essential hypertension; Heart murmur; Dyslipidemia 2 Refill [facility] [address] [place] [address] Janet Vogt MD Medication Refill 2 2:50 PM EDT Office Visit [address] [place] [address] Mikey Christian MD Sacroiliitis 2 1:20 PM EDT Office Visit [facility] Urology NPTFTT [address] [place] [address] Sandra Murrell PA-C Incomplete bladder emptying (Primary Dx); Urinary retention; Cauda equina syndrome with neurogenic bladder (HCC); Slow transit constipation 2 Telephone SEP H&V NPTFTT [address] [place] [address] Kalyan, Kendy, DO Medication Refill 2 Telephone SEP H&V [address] [phone] Kalyan, Kendy, DO Medication Refill 2 Patient Outreach [facility] [address] [place] [address] Janet Vogt MD Central Patient Navigator Outreach (AWV) 2 Telephone [place] [address] [place] [address] Mikey Christian MD Prior Authorization (SI joint injection) 2 2:15 PM EDT Office Visit [facility] SPINE [address] [place] [address] Mikey Christian MD Myofascial pain (Primary Dx); Acute bilateral low back pain without sciatica; Sacroiliitis 2 Orders Only [facility] [address] [facility] [address] [place] [address] Mikey Christian MD Myofascial pain (Primary Dx) 2 9:30 AM EDT Office Visit [facility] SPINE [address] [place] [address] Mikey Christian MD Chronic pain of right thumb 2 Refill SEP Gastro CV [address] [place] [address] [facility] [place] [address] Gerardo Purcell MD Medication Refill 2 Telephone SEP GASTRO [facility] [address]TRANCE, 3RD [place] [address] Gerardo Purcell MD Other 2 9:40 AM EDT Office Visit [facility] Urology NPTFTT [address] [place] [address] Sandra Murrell PA-C Urinary retention (Primary Dx); Slow transit constipation; Hemorrhoids, unspecified hemorrhoid type; Incomplete bladder emptying 2 11:20 AM EDT Office Visit [facility] Urology NPTFTT [address] [place] [address] Sandra Murrell PA-C Feeling of incomplete bladder emptying (Primary Dx); Urinary retention; Slow transit constipation 2 Patient Outreach [place] [address] [place] [address] Anh Brown, BS, COS ED Follow-Up Call 2 2:29 AM EDT - 2 6:04 AM EDT Emergency [facility] [place] [address] Arthur Rodriguez MD Acute on chronic urinary retention (Primary Dx); Hemorrhoids, unspecified hemorrhoid type Discharge Disposition: Home or Self Care 2 Nurse Triage [place] [address] [place] [address] Kat Vizcaino RN 2 Travel 2 9:15 PM EDT - 2 10:11 PM EDT Emergency [facility] [place], [place] [phone] Arthur Pruett MD Fecal impaction in rectum (HCC) (Primary Dx); External hemorrhoids without complication Discharge Disposition: Home or Self Care 2 Nurse Triage [address] [place] [address] Ne Betancourt RN 2 Refill SEP H&V NPTFTT [address] [place] [address] Kendy Biggs, DO Medication Refill 2 1:00 PM EDT Office Visit [facility] Ophthalmology [address] [place] [address] Na Agn MD Keratitis sicca, bilateral (HCC) (Primary Dx); Optic neuropathy, left; Bilateral ocular hypertension; Nuclear sclerotic cataract of right eye [address] [place] [address] Mikey Christian MD Prior Authorization (Right Thumb Injection) 2 10:30 AM EDT Office Visit [facility] SPINE [address] [place] [address] Mikey Christian MD Acute bilateral low back pain without sciatica 2 Refill SEP H&V [address] [address] Arun Biggsi, DO Medication Refill 2 11:20 AM EDT Office Visit [facility] Urology NPTFTT [address] [place] [address] Sandra Murrell PA-C Feeling of incomplete bladder emptying (Primary Dx); Incomplete bladder emptying; Cauda equina syndrome with neurogenic bladder (HCC); Slow transit constipation; Stranguria 2 2:45 PM EDT Office [place] [address] Kendy Biggs DO Coronary artery disease involving [place] coronary artery of [place] heart without angina pectoris (Primary Dx); Essential hypertension; Nonobstructive atherosclerosis of coronary artery; Dyslipidemia 2 3:30 PM EDT Office Visit [facility]P SPINE [address] [place] [phone] Mikey Christian MD Sacroiliitis (Primary Dx); Acute bilateral low back pain without sciatica; Spondylosis of lumbosacral region without myelopathy or radiculopathy; DDD (degenerative disc disease), lumbar 2 Refill [facility] SP[facility] [address] [place] [address] Mikey Christian MD Medication Refill 2 [place] [address] Kendy Biggs DO Medication Refill 2 [place] [address] Kendy Biggs DO Medication Question 2 [place] [address] Oumar Alves MD 2 11:00 AM EST Office Visit [place] [phone] Oumar Alves MD Spinal stenosis of lumbar region, unspecified whether neurogenic claudication present (Primary Dx) 2 [place] [address] Kendy Biggs DO Other [address] [address] Oumar Alves MD Other 2 Telephone [facility] [address] [place] [address] Mikey Christian MD Prior Authorization (Right GTB) 2 Telephone [facility] [address] [place] [address] Mikey Christian MD Other (Questions Regarding Procedures.) 2 Orders Only [facility] [address] [place] [address] Mikey Christian MD DDD (degenerative disc disease), lumbar (Primary Dx) 2 1:20 PM EST Office Visit [facility]P SPINE [address] [place] [address] Mikey Christian MD Acute bilateral low back pain without sciatica 2 Travel 2 12:07 PM EST - 2 11:59 PM EST Hospital Encounter [facility] [address] [place] [address] Mikey Christian MD Acute bilateral low back pain without sciatica Discharge Disposition: Home or Self Care 2 Travel 2 11:00 AM EST Office Visit [facility] [address] [place] [address] Mikey Christian MD Acute bilateral low back pain without sciatica (Primary Dx); DDD (degenerative disc disease), lumbar 1 Patient Outreach [place] [address] [place] [address] Valeira Muñoz CHEMIST ASSISTANT Follow-Up Call 1 Travel 1 8:52 PM EST - 1 11:06 PM EST Emergency [facility] [address] [place] [address] Rubi Martinez MD Acute exacerbation of chronic low back pain (Primary Dx) Discharge Disposition: Home or Self Care 1 6:48 PM EST - 1 7:04 PM EST Emergency [facility] [place] [address] Discharge Disposition: Left Without Being Seen 1 Telephone [facility] [place] [place] [address] Kendy Biggs, Medication Reaction 1 Travel 1 11:00 AM EST Office Visit [facility] [address] [address] Janet Vogt MD Upper respiratory tract infection, unspecified type (Primary Dx); Insomnia, persistent 1 10:00 AM EST Office Visit [facility] Urology NPTFTT [address] [place] [address] Sandra Murrell PA-C Incomplete bladder emptying (Primary Dx); Dysuria; UTI symptoms 1 Travel 1 11:30 AM EST Office Visit [facility] [address] [address] Janet Vogt MD Muscle strain of chest wall, initial encounter (Primary Dx); Insomnia, persistent 1 Telephone 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, unspecified lagophthalmos type; Pseudophakia of both eyes; Optic neuropathy, left 1 Refill SEP H&V CV Story [address] [place] [address] Kalyan, Kendy, Medication Refill 1 Telephone SEP H&V [address] [address] Kalyan, Kendy, Labs Only 1 Refill SEP H&V [address] [address] Kalyan, Kami, DO Medication Refill 1 Telephone SEP H&V [address] [address] Kendy Biggs, Hypertension; Dizziness 1 Travel 1 2:40 PM EDT Office Visit [facility] Gastro CV [address] [facility] [address] [place] [address] Gerardo Purcell MD Irritable bowel syndrome with constipation (Primary Dx); Gastroesophageal reflux disease, unspecified whether esophagitis present; Chronic cholecystitis 1 Travel 1 9:45 AM EDT Office Visit [facility] H&V [address] [address] Kendy Biggs, Uncontrolled hypertension (Primary Dx); Dyslipidemia; Coronary artery disease involving [place] coronary artery of [place] heart without angina pectoris; Nonobstructive atherosclerosis of coronary artery 1 Nurse Triage [facility] [address] [place] [address] Lelo Dawkins, MARISSA 1 Telephone SEP H&V [address] [address] Kalyan Kendy, Medication Problem 1 Orders Only [facility] [address] [place] [address] Yara Anders, CHRIS 1 Telephone SEP Gen Surg [facility] [address] [facility] [address] [place] [address] Geoff Gan MD Other 1 2:00 PM EDT Office Visit [facility] [address] [place] [address] Page Chatterjee, RN Encounter for counseling for care management of patient with chronic conditions and complex health needs using nurse-based model (Primary Dx) 1 1:00 PM EDT Office Visit [facility] [address] [address] Janet Vogt MD Insomnia, persistent (Primary Dx); Irritable bowel syndrome with constipation 1 Travel 1 2:45 PM EDT Office Visit SEP Gen Surg Edg [address] [place] [address] [address] [place] [address] Geoff Gan MD S/P laparoscopic cholecystectomy (Primary Dx); Anxiety 1 Telephone SEP H&V [facility] [address] [place] [address] Kalyan, Kendy, DO Hypotension; Fatigue 1 Patient Outreach SEP [facility] [address] [place] [address] Gracie Barba BA, COS ED Follow-Up Call 1 Travel 1 11:34 AM EDT - 1 4:47 PM EDT Emergency [facility] [place] [address] Tiana Orosco MD Spellman, Paul E, MD Non-intractable vomiting with nausea, unspecified vomiting type (Primary Dx) Discharge Disposition: Home or Self Care 1 Telephone [facility] [address] [address] Janet Vogt MD Symptom Call (after surgery ) 1 Telephone SEP Vascular Surg Edg [address] [facility] [address] [place] [address] Rj Liliya CariMARVIN Symptom Call (nausea) 1 Travel 1 1:30 PM EDT - 1 3:55 PM EDT Surgery [facility] [place] [address] Geoff Gan MD DAVINCI ROBOTIC CHOLECYSTECTOMY 1 1:38 PM EDT Anesthesia Event [facility] [place] [address] Denae Galarza MD Merkle Serey, Jennifer L, NP 1 12:04 PM EDT - 1 5:36 PM EDT Hospital Encounter EDG SAME DAY SURGERY [facility] [place] [address] Geoff Gan MD Calculus of gallbladder without cholecystitis without obstruction; Calculus of gallbladder without cholecystitis without obstruction Discharge Disposition: Home or Self Care 1 Travel 1 1:00 PM EDT - 1 11:59 PM EDT Hospital Encounter [facility] [address] [place] [address] Covid19, Edg Lab [facility] Pre-op testing; Encounter for laboratory testing for COVID-19 virus Discharge Disposition: Home or Self Care 1 Orders Only SEP Gen Surg Edg 254 [address] [facility] [address] [place] [address] Geoff Gan MD Calculus of gallbladder without cholecystitis without obstruction (Primary Dx) 1 Travel 1 10:30 AM EDT Office Visit [facility] [address] [place] [address] Janet Vogt MD Calculus of gallbladder without cholecystitis without obstruction (Primary Dx); Irritable bowel syndrome with constipation 1 Patient Outreach SEP [facility] [address] [place] [address] Nelson Velázquez LPN ED Follow-Up Call 1 Telephone SEP Gen Surg Edg 254 [address] [facility] [address] [place] [address] Geoff Gan MD Procedure 1 Travel 1 1:08 PM EDT - 1 4:01 PM EDT Emergency [facility] [place] [address] Sameer Coffey MD Constipation, unspecified constipation type (Primary Dx) Discharge Disposition: Home or Self Care 1 Nurse Triage [address] [place] [address] Margarita Coffey RN 1 Travel 1 10:45 AM EDT Office Visit SEP Gen Surg Edg 254 20 [facility] [address] [place] [address] Geoff Gan MD Calculus of gallbladder without cholecystitis without obstruction (Primary Dx) 1 Patient Outreach [address] [place] [address] Nelson Velázquez LPN ED Follow-Up Call 1 2:19 PM EDT - 1 5:00 PM EDT Emergency [facility] [place] [address] Dre Foley MD Calculus of gallbladder without cholecystitis without obstruction (Primary Dx); Nausea vomiting and diarrhea Discharge Disposition: Home or Self Care 1 Travel 1 3:15 PM EDT Office Visit [facility] [address] [address] Janet Vogt MD Diarrhea, unspecified type (Primary Dx) 1 Telephone [facility] [address] [address] Janet Vogt MD Appointment Needed (stomach pain) 1 Travel 1 4:30 PM EDT Office Visit [facility] [address] [address] Lauryn Valiente MD Urinary frequency (Primary Dx); Cystitis 1 Telephone SEP Urology [address] [address] Sandra Murrell PA-C Other 1 Telephone SEP Ophthalmology Cov [address] [address] Na Ang MD Other 1 Refill SEP . [address] [address] Otto Arreaga MD Medication Refill 1 Refill SEP [address] [address] Janet Vogt MD Medication Refill 1 Travel 1 9:00 AM EDT Office Visit SEP Urology NPTFTT [address] [place] [address] Heydi Merrill MD Incomplete bladder emptying (Primary Dx); Stranguria; Slow transit constipation; Cauda equina syndrome with neurogenic bladder (HCC); Microhematuria; Nocturia; Frequency of micturition 1 Refill SEP H&V [place] [address] [place] [address] Kendy Biggs, Medication Refill 1 Travel 1 3:10 PM EDT Office Visit SEP Ophthalmology Cov [address] [address] Na Ang MD Refractive error (Primary Dx); Keratitis sicca, bilateral (HCC); Nuclear sclerotic cataract of right eye 1 Telephone SEP . [address] [address] Janet Vogt MD Follow-up (dexa scan ) 1 Refill [facility] [address] [place] [address] Janet Vogt MD Medication Refill 1 Travel 1 11:00 AM EDT Clinical Support [facility] [address] [place] [address] [facility] [place] Encounter for therapeutic drug monitoring (Primary Dx) 1 Travel 1 Travel 1 3:40 PM EDT Office Visit SEP Ophthalmology Cov [address] [facility] [address] [place] [address] Na Ang MD Nuclear sclerotic cataract of right eye (Primary Dx) 1 Travel 1 4:47 PM EDT - 1 11:59 PM EDT Hospital Encounter [facility] [address] [place] [address] Oneal Carrera, DPLauryn Arthritis of left ankle Discharge Disposition: Home or Self Care 1 Orders Only SEP Urology NPTFTT [address] [place] [phone] Heydi Merrill MD Incomplete bladder emptying (Primary Dx) 1 Travel 1 2:30 PM EDT Office Visit SEP Ophthalmology Cov [address] [facility] [address] [place] [address] Na Ang MD Nuclear sclerotic cataract of right eye (Primary Dx) 1 12:25 PM EDT - 1 12:50 PM EDT Surgery [facility] [place] [address] [place] [address] Na Ang MD CATARACT EXTRACTION WITH PHACOEMULSIFICATION AND INTRAOCULAR LENS 1 12:33 PM EDT Anesthesia Event [facility] [address] [place] [address] Oumar Weiss MD Zehnder, Wende, APRN 1 10:15 AM EDT - 1 1:42 PM EDT Hospital Encounter [facility]TT SAME DAY SURGERY [address] [place] [address] Na Ang MD Nuclear sclerotic cataract of right eye Discharge Disposition: Home or Self Care 1 Travel 1 1:19 PM EDT - 1 11:59 PM EDT Hospital Encounter [facility] [place] [address] [place] [address] Covid19, [facility] [place] Pre-op testing; Encounter for laboratory testing for COVID-19 virus Discharge Disposition: Home or Self Care 1 2:29 PM EDT - 1 11:59 PM EDT Hospital Encounter [facility] MOB DRAW SITE [address] [place] [address] Essential hypertension; Other hyperlipidemia; Acquired hypothyroidism; Peripheral neuropathy, idiopathic Discharge Disposition: Home or Self Care 1 2:00 PM EDT Office Visit [facility] [address] [place] [address] Janet Vogt MD Peripheral neuropathy, idiopathic (Primary Dx) 1 Travel 1 Travel 1 1:15 PM EDT Office Visit SEP H&V [facility] [place] [place] [address] Kendy Biggs DO Uncontrolled hypertension (Primary Dx); Dyslipidemia; Coronary artery disease involving [place] coronary artery of [place] heart without angina pectoris; Heart murmur 1 Orders Only [facility] [address] [place] [address] Yara Anders CCMA 1 Travel 1 Travel 1 2:30 PM EDT Office Visit SEP Ophthalmology Cov [address] [facility] [address] [place] [address] Na Ang MD Nuclear sclerotic cataract of right eye (Primary Dx) 1 Refill SEP Gastro [facility] [address] [facility] [address] [place] [address] Gerardo Purcell MD Medication Refill 1 Travel 1 2:30 PM EDT Office Visit SEP Ophthalmology Cov [address] [facility] [address] [place] [phone] Na Ang MD Nuclear sclerotic cataract of right eye (Primary Dx); Nuclear sclerotic cataract of left eye 1 2:30 PM EDT - 1 2:55 PM EDT Surgery [facility] PERIOP [address] [place] [address] Na Ang MD CATARACT EXTRACTION WITH PHACOEMULSIFICATION AND INTRAOCULAR LENS 1 2:22 PM EDT Anesthesia Event FTT PERIOP [address] [place] [address] Juan Lynn MD Collins, Angela, APRN 1 12:46 PM EDT - 1 3:41 PM EDT Hospital Encounter [facility]TT SAME DAY SURGERY [address] [place] [address] Na Ang MD Nuclear sclerotic cataract of left eye Discharge Disposition: Home or Self Care 1 Travel 1 Travel 1 1:00 PM EDT - 1 11:59 PM EDT Hospital Encounter [facility] [place] [address] [place] [address] Covid19, [facility] [place] Pre-op testing; Encounter for laboratory testing for COVID-19 virus Discharge Disposition: Home or Self Care 1 Travel 1 Travel 1 Telephone SEP Ophthalmology Cov [address] [address] Fatoumata Mantilla Follow-up 1 Travel 1 2:50 PM EST Office Visit SEP Ophthalmology Cov [address] [phone] Na Ang MD Nuclear sclerotic cataract of left eye (Primary Dx); Narrow angle glaucoma of left eye; Anatomical narrow angle, bilateral ; Anatomical narrow angle, bilateral 1 Travel 1 Refill SEP Gastro [facility] [address] [place] [address] [place] [address] Gerardo Purcell MD Medication Refill 1 Orders Only [facility] [place] [address] [address] Yara Anders CCMA Essential hypertension (Primary Dx) 1 Telephone SEP H&V [facility] [place] [address] [place] [address] Kendy Biggs DO Appointment Needed 1 Refill SEP Gastro [facility] [address] [place] [address] [place] [address] Gerardo Purcell MD Medication Refill 0 Refill SEP Gastro [facility] [address] [facility] [address] [place] [address] Gerardo Purcell MD Medication Refill 0 Travel 0 1:02 PM EST - 0 11:59 PM EST Hospital Encounter [facility] [place] [facility] [address] [facility] [place] [address] Heydi Merrill MD Incomplete bladder emptying Discharge Disposition: Home or Self Care 0 Travel 0 Travel 0 10:20 AM EST Office Visit SEP Urology NPTFTT [address] [place] [address] Heydi Merrill MD Incomplete bladder emptying (Primary Dx); Stranguria; Slow transit constipation; Cauda equina syndrome with neurogenic bladder (HCC) 0 Orders Only [facility] [place] [address] [address] Jamilah Hdez RMA Essential hypertension (Primary Dx) 0 Telephone SEP Ft. [address] [address] Janet Vogt MD Medication Management (cloNIDine (CATAPRES) 0.2 mg/24 hr TD Patch Weekly 12 Patch 0 04/15/2020 ) 0 Telephone SEP Ft. [address] [address] Janet Vogt MD Medication Management (cloNIDine (CATAPRES) 0.2 mg/24 hr TD Patch Weekly) 0 Refill SEP Ft. [address] [address] Janet Vogt MD Medication Refill 0 Travel 0 Refill SEP [address] [place] [address] Gerardo Purcell MD Medication Refill 0 Travel 0 Telephone SEP Ft. [address] [address] Janet Vogt MD Other (needs a return call.) 0 Travel 0 1:30 PM EDT Clinical Support SEP [facility]t. [address] [address] Jayna Farooq MA Viral URI with cough (Primary Dx) 0 Telephone SEP Ft. [address] [address] Janet Vogt MD Orders (covid test ) 0 11:45 AM EDT Telemedicine SEP [facility]t. [address] [address] Severo Harrell, Viral URI with cough (Primary Dx) 0 Telephone SEP [facility] [place] [address] [address] Janet Vogt MD Orders (sore throat , body aches ) 0 Travel 0 12:15 PM EDT Ancillary Procedure [facility] [address] [place] [address] Subcutaneous mass of supraclavicular area 0 Travel 0 11:45 AM EDT Office Visit [facility] [place] [address] [address] Janet Vogt MD Subcutaneous mass of supraclavicular area (Primary Dx) 0 Travel 0 Refill [facility] [address] [facility] [address] [place] [address] Gerardo Purcell MD Medication Refill 0 Travel 0 12:14 PM EDT - 0 11:59 PM EDT Hospital Encounter [facility] [place] [facility] [address] [facility] [place] [address] Janet Vogt MD Post-menopausal Discharge Disposition: Home or Self Care 0 1:53 PM EDT - 0 11:59 PM EDT Hospital Encounter [facility] MOB DRAW SITE [address] [place] [address] Acute pain of both shoulders Discharge Disposition: Home or Self Care 0 1:00 PM EDT Office Visit [facility]P [place] [address] [address] Severo Harrell DO Acute pain of both shoulders (Primary Dx) 0 Travel 0 Travel 0 Travel 0 6:05 AM EDT - 0 11:59 PM EDT Hospital Encounter [facility] EKG ATTN: Appointments in this department are performed at various locations in the community on our Cardiovascular mobile health unit. You can look online to verify your site or call [phone] [address] Leoncio Haywood APRN Screening for cardiovascular condition Discharge Disposition: Home or Self Care 0 6:03 AM EDT - 0 6:04 AM EDT Hospital Encounter [facility] ECHO VAS ATTN: Appointments in this department are performed at various locations in the community on our Cardiovascular mobile health unit. You can look online to verify your site or call [phone] [address] Leoncio Haywood APRN Screening for cardiovascular condition Discharge Disposition: Home or Self Care 0 Orders Only SEP H&V [facility] [address] [place] [phone] Colleen Dunne [facility] 0 [facility] [address] [place] [address] Janet Vogt MD Medication Refill 0 Refill SEP [facility]. [address] [address] Janet Vogt MD Medication Refill 0 Orders Only SEP H&V [facility] [address] [place] [address] Anderson Alejandra MA Essential hypertension (Primary Dx) 0 Refill SEP Gastro [facility] [address] [facility] [address] [place] [phone] Gerardo Purcell MD Medication Refill 0 Refill SEP H&V [facility] [address] [place] [address] William Presley PA-C Medication Refill 0 Refill SEP Urology NPTFTT [address] [place] [address] Heydi Merrill MD Medication Refill 0 Travel 0 Travel [address] [address] Janet Vogt MD Orders 0 Travel 0 2:00 PM EDT Telemedicine [facility] H&V [facility] [address] [place] [address] Kendy Biggs, Nonobstructive atherosclerosis of coronary artery (Primary Dx); Mixed hyperlipidemia; Essential hypertension; Dyslipidemia 0 Travel 0 2:20 PM EDT Office Visit [address] [address] Heydi Merrill MD Stranguria (Primary Dx); Incomplete bladder emptying; Frequency of micturition; Nocturia 0 Travel [address] [address] Heydi Merrill MD Other (trouble with urinating.) 0 Travel 0 Travel 0 11:15 AM EDT Telemedicine [address] [address] Janet Vogt MD Acquired hypothyroidism (Primary Dx); Essential hypertension; Other hyperlipidemia; Incomplete bladder emptying 0 Telephone SEP Gastro [facility] [address] [facility] [address] [place] [address] Gerardo Purcell MD Medication Question 0 Telephone SEP Gastro [facility] [address] [facility] [address] [facility] Gerardo Purcell MD Medication Management [address] [address] Janet Vogt MD Other 0 Telephone [facility] [address] [place] [address] Janet Vogt MD Lab Orders (antibody test for CV-19) 0 Travel 0 Lab Requisition [facility] [place] [address] Gerardo Purcell MD Personal history of colonic polyps; Other specified diseases of intestine 0 Orders Only SEP Gastro CV [address] [place] [address] [place] [address] Gerardo Purcell MD 0 Travel 0 Telephone SEP Gastro CV [address] [place] [facility] [address] [place] [address] Roderick Santoyo MD PHD Procedure 0 Telephone SEP Gastro [facility] [address] [facility] [address] [place] [address] Gerardo Purcell MD Medication Question 0 1:30 PM EST Office Visit SEP Urology NPTFTT [address] [place] [address] Heydi Merrill MD Dysuria (Primary Dx); Incomplete bladder emptying; Urinary urgency; Irritable bowel syndrome with constipation 0 Telephone SEP Gastro CV [address] [place] [facility] [address] [place] [address] Violeta Victoria APRN Medication Management (ELAVIL PA) 0 Telephone SEP Gastro CV [address] [place] [address] [facility] [address] Violeta Victoria APRN Medication Management 0 2:30 PM EST Office Visit SEP Gastro CV [address] [place] [address] [facility] [address] Violeta Victoria APRN Nausea (Primary Dx); Dry heaves; Abdominal fullness; Hx of colonic polyps; Irritable bowel syndrome with constipation; Special screening for malignant neoplasms, colon 0 Orders Only SEP Urology [address] [address] Handy, Sandra A, PA-C Incomplete bladder emptying (Primary Dx) 0 Telephone SE[facility] Urology [address] [address] Handy, Sandra A, PA-C Other (medication issues) 0 Orders Only SEP Urology NPTFTT [address] [place] [address] Handy, Sandra A, PA-C 0 Telephone SEP Urology NPTFTT [address] [place] [address] Handy, Sandra A, PA-C Other 0 1:45 PM EST Office Visit SEP Urology NPTFTT [address] [place] [address] Handy, Sandra A, PA-C Nausea (Primary Dx); Acute UTI; Microhematuria; Incomplete bladder emptying 0 Telephone SEP Gastro [facility] [address] [facility] [address] [place] [address] Gerardo Purcell MD Nausea 9 9:15 AM EST Office Visit SEP Urology [address] [address] Handy, Sandra A, PA-C Incomplete bladder emptying (Primary Dx); Dysuria; Acute UTI 9 1:30 PM EST Office Visit [facility] H&V CV Story [address] [address] Kendy Biggs DO Coronary artery disease involving [place] coronary artery of [place] heart without angina pectoris (Primary Dx); Heart murmur; Mixed hyperlipidemia; Essential hypertension; Acquired hypothyroidism 9 10:00 AM EST Office Visit SEP Urology NPTFTT [address] [place] [address] Heydi Merrill MD Incomplete bladder emptying (Primary Dx); Dysuria; Other constipation 9 Telephone [facility] Gastro [facility] [address] [facility] [place] [address] [place] [address] Gerardo Purcell MD Other 9 2:00 PM EST Office Visit [facility] [place] [address] [address] Janet Vogt MD Dysuria (Primary Dx) 9 2:04 PM EST - 9 11:59 PM EST Hospital Encounter [facility] [address] [facility] [address] Janet Vogt MD Encounter for screening mammogram for malignant neoplasm of breast Discharge Disposition: Home or Self Care 9 Telephone [facility] H&V [facility] [address] [place] [address] Kendy Biggs, DO Medication Refill [address] [address] Jamilah Stacy, car sales associate Change 9 12:45 PM EDT Office Visit [address] [address] Flaca Aguila MD UTI symptoms (Primary Dx) 9 9:15 AM EDT Office Visit [facility] Dermatology [facility] [address] [facility] [address] [place] [address] Chandni Murillo MD History of basal cell carcinoma (BCC) (Primary Dx); SK (seborrheic keratosis); Nevus; Other viral warts; Pain of skin; Disturbance of skin sensation 9 2:45 PM EDT Office Visit [facility] H&V [facility] [address] [place] [address] Kendy Biggs, DO Mixed hyperlipidemia (Primary Dx); Coronary artery disease involving [place] coronary artery of [place] heart without angina pectoris; Heart murmur; Essential hypertension; Acquired hypothyroidism 9 1:15 PM EDT Office Visit [facility] H&V [facility] Story [address] [place] [address] Sandee Matthews RMA Chest pain, unspecified type (Primary Dx); SOB (shortness of breath) 9 2:20 PM EDT Office Visit [facility] Gastro CV [address] [facility] [address] [place] [address] Gerardo Purcell MD Irritable bowel syndrome with constipation (Primary Dx); History of colon polyps 9 11:15 AM EDT Office Visit [facility] [place] [address] [address] Janet Vogt MD Medicare annual wellness visit, subsequent (Primary Dx); Essential hypertension; Acquired hypothyroidism; Other hyperlipidemia; Strain of neck muscle, initial encounter 9 Patient Outreach SEP [facility] [address] [place] [address] [place], RN Medicare Annual Wellness; Osteoarthritis; Schedule Appointment 9 Refill SEP H&V [facility] [address] [place] [address] William Presley PA-C Medication Refill 9 Orders Only [facility] [place] [address] [address] Yara Anders CCMA Essential hypertension (Primary Dx) 9 Telephone SEP [place] [address] [address] Janet Vogt MD Medication Management 9 Telephone [facility] [place] [address] [address] Janet Vogt MD Medication Management (clonidine ) 9 10:32 AM EDT - 9 11:59 PM EDT Hospital Encounter [facility] MOB [address] [place] [address] Essential hypertension; Acquired hypothyroidism Discharge Disposition: Home or Self Care 9 10:15 AM EDT Office Visit [facility] [address] [place] [address] Janet Vogt MD Acquired hypothyroidism (Primary Dx); Essential hypertension; Irritable bowel syndrome with diarrhea; Mixed hyperlipidemia; Other hyperlipidemia 9 Orders Only SEP Urology [address] [address] Sandra Murrell PA-C 9 10:00 AM EDT - 9 11:59 PM EDT Hospital Encounter [facility] [address] [place] [address] Slow transit constipation Discharge Disposition: Home or Self Care 9 9:00 AM EDT Office Visit SEP Urology [address] [address] Sandra Murrell PA-C Incomplete bladder emptying (Primary Dx); Slow transit constipation; Cauda equina syndrome with neurogenic bladder (HCC) 9 10:30 AM EDT Office Visit [facility] H&V CV[facility] Story [address] [place] [address] William Presley PA-C Uncontrolled hypertension; Chest pain, unspecified type; SOB (shortness of breath); Dizziness; Bradycardia; Mixed hyperlipidemia; Heart murmur 9 2:00 PM EDT Office Visit SEP Ophthalmology Cov [address] [facility] [address] [place] [address] Na Ang MD Keratitis sicca, bilateral; Bilateral ocular hypertension 9 9:20 AM EDT Office Visit SEP Urology NPTFTT [address] [place] [address] Heydi Merrill MD Incomplete bladder emptying (Primary Dx); Urinary urgency; Chronic constipation; Weak urine stream 9 Telephone SEP H&V [facility] [address] [place] [address] Bernadette Louise RMA Visit Follow Up 9 9:51 AM EDT - 11:59 PM EDT Hospital Encounter [facility] [place] [address] Manav Batista MD Screening for condition Discharge Disposition: Home or Self Care 9 9:20 AM EDT Office Visit SEP Urology NPTFTT [address] [place] [address] Heydi Merrill MD Urine frequency (Primary Dx); Incomplete bladder emptying; Chronic constipation 10:45 AM EDT Office Visit [facility] [address] [place] [address] Kendy Biggs DO Essential hypertension (Primary Dx); Acquired hypothyroidism; Dyslipidemia; Uncontrolled hypertension 9 9:56 AM EST - 11:59 PM EST Hospital Encounter [facility] V[facility]ULAR [facility] [address] [place] [address]. [place] [address] William Presley PA-C Uncontrolled hypertension; SOB (shortness of breath); Dizziness; Chest pain, unspecified type; Mixed hyperlipidemia; Bradycardia; Labile hypertension Discharge Disposition: Home or Self Care 9 2:30 PM EST Office Visit [facility] [address] [place] [address] Eduardo Mejia MD Tinnitus, bilateral (Primary Dx); Dizziness, nonspecific; Bilateral ocular hypertension; Optic neuropathy, left; Essential hypertension; Clicking tinnitus of both ears; Sensorineural hearing loss (SNHL) of both ears 9 2:30 PM EST Office Visit SEP H&V [facility] [address] [place] [address] William Presley PA-C Uncontrolled hypertension (Primary Dx); SOB (shortness of breath); Dizziness; Chest pain, unspecified type; Mixed hyperlipidemia; Bradycardia; Labile hypertension 9 Telephone SEP H&V [facility] [address] [place] [address] KalyanAruni, Other 9 Telephone SEP H&V [facility] [address] [place] [address] KalyanKendy, DO Appointment Needed 9 1:00 PM EST Office Visit SEP Ophthalmology Cov [address] [facility] [address] [place] [address] Na Ang MD Keratitis sicca, bilateral (Primary Dx); Cataract, nuclear sclerotic senile, bilateral; Bilateral ocular hypertension; Optic neuropathy, left 9 11:43 PM EST - 9 3:51 AM EST Emergency Spanish [facility] Emergency [address] [place] [address] Sameer Coffey MD Hypertension, unspecified type (Primary Dx); Loose stools; Nausea Discharge Disposition: Home or Self Care 9 1:45 PM EST Office Visit [facility] [address] [place] [phone] Na Ang MD Optic neuropathy, left 9 1:48 PM EST - 9 4:19 PM EST Emergency [facility] Emergency [address] [place] [address] Jaylyn Talavera MD Nausea (Primary Dx) Discharge Disposition: Home or Self Care 9 Telephone [facility] [address] [phone] Na Ang MD Medication Problem 9 12:20 PM EST - 9 11:59 PM EST Hospital Encounter [facility] [address] [place] [address] Kendy Biggs, Uncontrolled hypertension; Chest pain, unspecified type; SOB (shortness of breath); Dizziness; Bradycardia; Mixed hyperlipidemia; Heart murmur Discharge Disposition: Home or Self Care 9 8:15 AM EST Office Visit [facility] Ophthalmology Cov [address] [place] [address] [address] [place] [phone] Na Ang MD Refractive error (Primary Dx); Keratitis sicca, bilateral; Cataract, nuclear sclerotic senile, bilateral; Bilateral ocular hypertension; Optic neuropathy, left 9 11:00 AM EST Office Visit [facility] H&V [address] [phone] William Presley PA-C Uncontrolled hypertension (Primary Dx); SOB (shortness of breath); Dizziness; Heart murmur; Mixed hyperlipidemia; Bradycardia 8 Telephone [facility] [address] [address] Kendy Biggs DO Prior Authorization (benicar) 8 Telephone [facility] [address] [phone] Kendy Biggs DO Hospital Follow Up 8 5:25 PM EST - 8 4:12 PM EST Hospital Encounter [facility] [address] [address] [place] [address] Sameer Coffey MD Banks, David, MD Gaston, Richard L, MD Hypertensive urgency (Primary Dx); Lightheadedness Discharge Disposition: Home or Self Care 8 Telephone Adult Med [address] [place] [address] [place] [address] Daisy Garcia APRN Blood Pressure Check 8 Abstract [facility] [address] [phone] Kendy Biggs DO 8 8:00 AM EST Office Visit [facility]V [address] [address] Kendy Biggs DO Uncontrolled hypertension [...] 2:15 PM EDT Office Visit [facility] Dermatology [facility] [address] [phone] Chandni Murillo MD Other viral [...] Care 7 2:04 PM EDT Hospital Encounter [facility] Referral Lab [address] [place] [address] Oumar Alves MD Low back pain 6 5:30 PM EDT Office Visit [facility] Urgent [facility] [address] [place] [address] Liberty Treadwell, BUFFING WHEEL INSPECTOR Ruptured ear drum, left (Primary Dx); Seasonal [...] online to verify your site or call [phone] Allan [facility]17 Leoncio Haywood APRN Screening for other and unspecified cardiovascular conditions Discharge Disposition: Home or Self Care 5 12:35 PM EDT - 5 11:59 PM EDT Hospital Encounter [facility] [address] [place] [address] Elvira Velarde MD Other screening mammogram Discharge Disposition: Home or Self Care 4 12:45 PM EDT - 4 11:59 PM EDT Hospital Encounter [facility] [address] [place] [address] Elvira Velarde MD Other screening mammogram Discharge Disposition: Home or Self Care 3 12:56 PM EDT - 3 11:59 PM EDT Hospital Encounter [facility] [address] [place] [address] Elvira Velarde MD Other screening mammogram Discharge Disposition: Home or Self Care 3 1:18 PM EST - 3 11:59 PM EST Hospital Encounter [facility] [address] [place] [id number] Geoff Dozier MD Radiculopathy, lumbar region Discharge Disposition: Home or Self Care 2 3:38 PM EST - 2 11:59 PM EST Hospital Encounter [facility] MRI [address] [place] [address] Geoff Dozier MD Right knee pain Discharge Disposition: Home or Self Care 2 2:28 PM EDT - 2 11:59 PM EDT Hospital Encounter [facility] [address] [place] [address] Geoff Gant Thoracic or lumbosacral neuritis or radiculitis, unspecified Discharge Disposition: Home or Self Care 2 1:59 PM EST - 2 11:59 PM EST Hospital Encounter [facility] [place] [address] Claire Barnett Other screening mammogram Discharge Disposition: Home or Self Care 2 6:19 PM EST - 2 11:59 PM EST Hospital Encounter [facility] [place] [address] Discharge Disposition: Home or Self Care 1 12:49 PM EST - 1 11:59 PM EST Hospital Encounter [facility] [place] [address] Maxime Araiza MD Osteopenia Discharge Disposition: Home or Self Care 1 11:52 AM EST - 1 12:48 PM EST Hospital Encounter [facility] [address] [place] [address] Provider, Not In Epic Stress fracture foot; Osteoporosis Discharge Disposition: Home or Self Care 1 11:48 AM EST - 1 11:51 AM EST Hospital Encounter [facility] [place] [address] Britt Domingo MD Other screening mammogram Discharge [...] (ASTELIN) 137 mcg (0.1 %) Nasl Aerosol, [place] USE 1 SPRAY(S) IN EACH NOSTRIL TWICE [...] completed by Chen Uribe RN on 04/04/2023. [facility] - Mikey Christian MD Interventional Pain Protocol: NS Appt 07/22/22 Letter Sent Ernesto report completed (EVERY 3 MONTHS) ( 08/09/22) Pharmacy: [facility] [id number] [place] [address] - [address] [phone] Problem Noted Date Diagnosed Date Secondary adrenal [...] (11/26/2020): Added automatically from request for surgery [id number] Narrow angle glaucoma of left eye 07/10/2020 [...] (08/16/2024 2:03 PM EDT): s/p CEIOL (CPT 70371) for Nuclear sclerotic cataract of right eye [H25.11] on 08/27/2020. s/p CEIOL (CPT 44825) for Nuclear sclerotic cataract of left eye [H25.12] on 07/30/2020. Has developed PCO. Discussed findings, options and risks with patient. She would like to monitor at this time. Assessment & Plan (02/03/2023 2:57 PM EDT): s/p CEIOL (CPT 07096) for Nuclear sclerotic cataract of right eye [H25.11] on 08/27/2020. s/p CEIOL (CPT 84463) for Nuclear sclerotic cataract of left eye [H25.12] on 07/30/2020. Assessment & Plan (10/08/2021 1:20 PM EDT): s/p CEIOL (CPT 01326) for Nuclear sclerotic cataract of right eye [H25.11] on 08/27/2020. s/p CEIOL (CPT 23417) for Nuclear sclerotic cataract of left eye [H25.12] on 07/30/2020. Assessment & Plan (09/25/2020 3:35 PM EDT): s/p CEIOL (CPT 69300) for Nuclear sclerotic cataract of right eye [H25.11] on 08/27/2020. Patient healing as expected. s/p CEIOL (CPT 36381) for Nuclear sclerotic cataract of left eye [H25.12] on 07/30/2020. Patient healing as expected. Assessment & Plan (09/04/2020 4:12 PM EDT): POW1 s/p CEIOL (CPT 02087) for Nuclear sclerotic cataract of right eye [H25.11] on 08/27/2020. Patient healing as expected. Continue post op precautions. Patient to follow up in 3 week(s) s/p CEIOL (CPT 32274) for Nuclear sclerotic cataract of left eye [H25.12] on 07/30/2020. Patient healing as expected. Assessment & Plan (08/28/2020 2:59 PM EDT): POD1 s/p CEIOL (CPT 32570) for Nuclear sclerotic cataract of right eye [H25.11] on 08/27/2020. Patient healing as expected. Continue post op precautions. Patient to follow up in 1 week(s) s/p CEIOL (CPT 50211) for Nuclear sclerotic cataract of left eye [...] to proceed with standard. s/p CEIOL (CPT 83468) for Nuclear sclerotic cataract of left eye [H25.12] on 07/30/2020. Patient healing as expected. Assessment & Plan (07/31/2020 2:50 PM EDT): POD1 s/p CEIOL (CPT 95382) for Nuclear sclerotic cataract of left eye [...] Alive Social History Smoking Status as of 01/08/2025 Tobacco Use Types Packs/Day Years Used Date Smoking Tobacco: Never Assessed Overall Financial Resource Strain (CARDIA) Answe r Date Recorded How hard is it for you to pa y for the very basics like food, housing, medical care, and heating? Not hard at all 11/25/2020 PHQ-2 Answer Date Recorded PHQ-2 Total Score 0 07/28/2022 [facility] of Occupat ional Health - Occupational Stress [...] Info) Description 01/16/2025 11:30 AM EDT Telemedicine [address] [place] [address] Katharine Whitlock MD [address] [place] [address] [place], [place] [phone] 08/15/2025 1:40 PM EDT Office Visit [facility] [address] [place] [phone] Na Ang MD [address] [place], [place] [id number] Medical Devices Implanted Type Area Dental Practitioner Device Identifier Shelf Expiration Date Model / Serial / Lot Lens +22.5d 6x13mm [employer] Ultrasert Au00t0 Pc 1-Pc - [id number] Implanted:Qty: 1 on 07/30/2020 by Na Ang MD at [facility] Left: Eye [facility]URG [id number] 02/25/2023 AU00T0 .225 / [id number] / Lens +23d 6x13mm [employer]q Ultrasert Au00t0 Pc 1-Pc Basell - [id number] Implanted:Qty: 1 on 08/27/2020 by Na Ang MD at [facility] Right: Eye [facility]G [id number] 03/21/2023 AU00T0.230 / [id number] / Procedures Procedure Name Priority Date/Time [...] Routine 09/16/2022 1:45 PM EDT Cervical pain ND ARTHROCENTESIS ASPIR&/INJ MAJOR JT/BURSA W/O US Routine [...] PM EST Abdominal pain, unspecified abdominal location 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 05/05/2022 4:39 PM EST Microhematuria URINALYSIS Routine 05/05/2022 4:39 PM EST Microhematuria URINE CULTURE (NO STAIN) Routine 05/05/2022 4:39 PM EST Microhematuria SEP URINALYSIS POC Routine 05/05/2022 3:21 PM EST Microhematuria URINALYSIS STAT 04/28/2022 7:23 AM EST UA W/REFLEX TO CULTURE STAT 7:23 AM EST EXTRA [place] URINE CX STAT 04/28/2022 7:23 AM EST HOZX-ELK2-LFO A/B Routine 04/28/2022 6:38 AM EST EMG [...] 12:15 PM EDT Screening for cardiovascular condition [place] US VASCULAR CVMHU SCREENING SINGLE EXAM Routine [...] Cardiology Consultation Admission: 04/25/2018 Patient: Gilbert Moreira [id number] PCP:Elvira Velarde 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 Presented to [...] Tab 5 fluticasone (FLONASE) 50 mcg/actuation Nasl [place], Suspension 1 [place] byNasal route daily. (Patient not taking: Reported [...] most recent cardiovascular imaging studies availabe in [facility] EMR werereviewed at time of [...] input to follow per Dr. Jamal Louise BUFFING WHEEL INSPECTOR EK EKG 12 LEAD STAT 04/24/2018 5:42 [...] 1:33 PM EDT Visit for screening mamm[facility] VASCULAR CVM[facility] SCREENING SINGLE EXAM Routine [...] 57 >=50 mg/dL 12/14/2024 4:58 PM EDT [facility] Blood VENOUS BLOOD / Unknown Venipuncture / Unknown 12/14/2024 4:27 PM EDT 12/14/2024 4:27 PM EDT Katharine Whitlock MD CHEMISTRY ORDERABLES Final Resu lt Performing Organization Address City/[facility]/ZIP Co de Phone Number [facility] [address] [place] [address] * GLUCOSE 2.5 HOUR (12/14/2024 3:52 PM EDT) Gluc 2.5 Hr 80 >=50 mg/dL 12/14/2024 4:36 PM EDT [facility] Blood VENOUS BLOOD / Unknown Venipuncture / Unknown 12/14/2024 3:52 PM EDT 12/14/2024 3:52 PM EDT Katharine Whitlock MD CHEMISTRY ORDERABLES Final Resu lt Performing Organization Address [facility]/ZIP Co de Phone Number [facility] [address] [place] [address] * GLUCOSE HYPOGLYCEMIA 2 HOUR (GTT) (12/14/2024 3:16 PM EDT) Gluc 2 Hr 84 <140 mg/dL 12/14/2024 3:52 PM EDT [facility] Blood VENOUS BLOOD / Unknown Venipuncture / Unknown 12/14/2024 3:16 PM EDT 12/14/2024 3:16 PM EDT Katharine Whitlock MD CHEMISTRY ORDERABLES Final Resu lt Performing Organization Address [facility] de Phone Number [address] [address] * GLUCOSE 1.5 HOUR (12/14/2024 2:42 PM EDT) Glu 1.5 Hr 87 mg/dL 12/14/2024 3:31 PM EDT [facility] Blood VENOUS BLOOD / Unknown Venipuncture / Unknown 12/14/2024 2:42 PM EDT 12/14/2024 2:42 PM EDT Katharine Whitlock MD CHEMISTRY ORDERABLES Final Resu lt Performing Organization Address [facility] Phone Number [facility] [address] [place] [address] * GLUCOSE HYPOGLYCEMIA 1 HOUR (GTT) (12/14/2024 2:11 PM EDT) Gluc 1 Hr 89 - mg/dL 12/14/2024 3:02 PM EDT [facility] Blood VENOUS BLOOD / Unknown Venipuncture / Unknown 12/14/2024 2:11 PM EDT 12/14/2024 2:11 PM EDT Katharine Whitlock MD CHEMISTRY ORDERABLES Final Resu lt Performing Organization Address [facility] Phone Number [address] [phone] * GLUCOSE .5 HOUR (12/14/2024 1:36 PM EDT) Gluc .5 Hr 136 mg/dL 12/14/2024 2:12 PM EDT [facility] Blood VENOUS BLOOD / Unknown Venipuncture / Unknown 12/14/2024 1:36 PM EDT 12/14/2024 1:34 PM EDT Katharine Whitlock MD CHEMISTRY ORDERABLES Final Resu lt [facility] [address] [place] [address] * LIPOPROTEIN (A) (12/14/2024 12:41 PM EDT) Only the most recent of2 resultswithin the time period is included. Lipoprotein (a) 16 <30 mg/dL 7:13 PM EDT [facility] Blood VENOUS BLOOD / Unknown Venipuncture / Unknown 12/14/2024 12:41 PM EDT 12/14/2024 2:23 PM EDT Katharine Whitlock MD CHEMISTRY ORDERABLES Final Resu lt Performing Organization Address City/[facility]/ZIP Co de Phone Number [facility] [employer] [address] [facility] , [place] [address] * (ABNORMAL) IRON+TIBC (12/14/2024 12:41 PM EDT) [...] Whitlock MD CHEMISTRY ORDERABLES Final Resu lt [facility] [address] [facility] , [address] [place] [id number] * GLUC HYPOGLYCEMIA FASTING (GTT) (12/14/2024 12:41 PM EDT) Pathologist [facility] Glucose Fasting 92 <100 mg/dL 12/14/2024 1:33 PM EDT [facility] Blood VENOUS BLOOD / Unknown Venipuncture / Unknown 12/14/2024 12:41 PM EDT 12/14/2024 1:07 PM EDT Katharine Whitlock MD CHEMISTRY ORDERABLES Final Resu lt Performing Organization Address [facility] de Phone Number [facility] [address] [place] [address] * THYROID PEROXIDASE (TPO) ANTIBODY (12/14/2024 12:41 PM EDT) Only the most recent of2 resultswithin the time period is included. Pathologist [facility] TPO Ab <3.00 <=5.59 IU/mL 12/14/2024 7:09 PM EDT [facility] Blood VENOUS BLOOD / Unknown Venipuncture / Unknown 12/14/2024 12:41 PM EDT 12/14/2024 2:22 PM EDT Katharine Whitlock MD IMMUNOLOGY ORDERABLES Final Res ult Performing Organization Address [facility] Co de Phone Number [facility] [address] [facility] , [address] [place] [phone] * LIPID PANEL REFLEX (12/14/2024 12:41 PM EDT) Only the most recent of2 resultswithin the time period is included. Cholesterol 158 <200 mg/dL 12/14/2024 6:49 PM EDT [facility] Comment: < 200 Desirable 200 - 239 Borderline High >= 240 High Triglyceride 97 <150 mg/dL 12/14/2024 6:49 PM EDT [facility] Comment: < 150 Normal 150 - 199 Borderline High 200 - 499 High >= 500 Very High HDL 49 >=40 mg/dL 12/14/2024 6:49 PM EDT [facility] Comment: > 60 Optimal 40 - 60 Acceptable < 40 Low LDL Calculated 91 <100 mg/dL 12/14/2024 6:49 PM EDT [facility] Comment: < 100 Optimal 100 - 129 Near or above optimal 130 - 159 Borderline High 160 - 189 High >= 190 Very High The National Institutes of Health (NIH) equation is used for all lipid panels that report calculated LDL (LDL-C). Non-HDL-C Calculated 109 <=129 mg/dL 12/14/2024 6:49 PM EDT [facility] Comment: <130 Desirable 130-159 Above Desirable 160-189 Borderline High 190-219 High >= 220 Very High Fasting Specimen? Yes None 025 6:49 PM EDT [facility] Blood VENOUS BLOOD / Unknown Venipuncture / Unknown 12/14/2024 12:41 PM EDT 12/14/2024 2:23 PM EDT Katharine Whitlock MD CHEMISTRY ORDERABLES Final Resu lt [facility] [address] [facility] , [address] [place] [id number] * VITAMIN D 25 HYDROXY (12/14/2024 12:41 PM EDT) Only the most recent of2 resultswithin the time period is included. Vit D 25 OH 72.0 30.0 - 150.0 ng/mL 12/14/2024 6:58 PM EDT [facility] Comment: Preferred: >= 30 ng/mL Insufficient: 21-29 [...] Whitlock MD CHEMISTRY ORDERABLES Final Resu lt [facility] [address] [facility] , [place] [address] * VITAMIN D, 1,25-DIHYDROXY -REF LAB (12/14/2024 12:41 PM EDT) Vit D 1,25 46.9 19.9 - 79.3 pg/mL 12/16/2024 2:37 PM EDT [employer] Comment: INTERPRETIVE INFORMATION: Vitamin D, 1,25-Dihydroxy This test is primarily indicated during patient evaluation for hypercalcemia and renal failure. A normal result does not rule out Vitamin D deficiency. The recommended test for diagnosing Vitamin D deficiency is Vitamin D 25-hydroxy. Performed By: [facility] [facility] [address] [place] [address] Rn Medical Inpatient Services: Uvaldo Youssef MD, PhD CLIA Number: [id number] Blood VENOUS BLOOD / Unknown Venipuncture / Unknown 12/14/2024 12:41 PM EDT 12/14/2024 2:31 PM EDT Katharine Whitlock MD CHEMISTRY ORDERABLES Final Resu lt [facility] [address] [place] [address] * (ABNORMAL) DEHYDROEPIANDROSTERONE SULFATE (12/14/2024 12:41 PM EDT) Dhea Sulfate 10.40(L) 12.00 - 154.00 mcg/dL 12/14/2024 6:58 PM EDT [facility] Blood VENOUS BLOOD / Unknown Venipuncture / Unknown 12/14/2024 12:41 PM EDT 12/14/2024 3:30 PM EDT Narrative [facility] - 12/14/2024 6:58 PM EDT Ingestion of aldair doses of biotin (>5 mg/day) taken within 8 hours of drawing blood sample can interfere with this immunoassay test. Katharine Whitlock MD CHEMISTRY ORDERABLES Final Resu lt [facility] [address] [facility], [place] [address] * THYROGLOBULIN ANTIBODY -REF LAB (12/14/2024 12:41 PM EDT) Thyroglob Ab <1.5 0.0 - 4.0 IU/mL 12/16/2024 6:43 AM EDT [employer] Comment: INTERPRETIVE INFORMATION: Thyroglobulin Antibody A value of 4.0 IU/mL or less indicates a negative result for thyroglobulin antibodies. The Thyroglobulin Antibody assay is being performed using the [employer] Access DxI method. Performed By: [facility] [address] [place] [address] Rn Medical Inpatient Services: Uvaldo Youssef MD, PhD CLIA Number: [id number] Blood VENOUS BLOOD / Unknown Venipuncture / Unknown 12/14/2024 12:41 PM EDT 12/14/2024 2:31 PM EDT Katharine Whitlock MD IMMUNOLOGY ORDERABLES Final Res ult Performing Organization Address [facility] Co de Phone Number [facility] [address] [place] [address] * ADRENOCORTICOTROPIC HORMONE -REF LAB (12/14/2024 12:41 PM EDT) Only the most recent of2 resultswithin the time period is included. ACTH 17.4 7.2 - 63.3 pg/mL 12/17/2024 7:33 PM EDT [employer] Comment: INTERPRETIVE INFORMATION: Adrenocorticotropic Hormone Reference interval based on samples collected between 7 a.m. and 10 a.m. No reference intervals established for p.m. collections. Pediatric reference values are the same as adults (Acta Paediatr Scand 1981;70:341-345). This assay measures intact ACTH 1-39; some types of synthetic ACTH and ACTH fragments are not detected by this assay. Performed By: [employer] [address] [place] [address] Rn Medical Inpatient Services: Uvaldo Youssef MD, PhD CLIA Number: [id number] Blood VENOUS BLOOD / Unknown Venipuncture / Unknown 12/14/2024 12:41 PM EDT 12/14/2024 2:19 PM EDT Katharine Whitlock MD CHEMISTRY ORDERABLES Final Resu lt Performing Organization Address [facility] de Phone Number [facility] [address] [place] [address] * C-REACTIVE PROTEIN (12/14/2024 12:41 PM EDT) Only the most recent of3 resultswithin the time period is included. CRP <3.00 <=5.00 mg/L 12/14/2024 7:13 PM EDT [facility] Blood VENOUS BLOOD / Unknown Venipuncture / Unknown 12/14/2024 12:41 PM EDT 12/14/2024 2:23 PM EDT Katharine Whitlock MD CHEMISTRY ORDERABLES Final Resu lt Performing Organization Address [facility] de Phone Number [facility] [address] [facility] , [place] [address] * URIC ACID (12/14/2024 12:41 PM EDT) Only the most recent of2 resultswithin the time period is included. Uric Acid 3.4 2.4 - 5.7 mg/dL 12/14/2024 6:49 PM EDT [facility] Blood VENOUS BLOOD / Unknown Venipuncture / Unknown 12/14/2024 12:41 PM EDT 12/14/2024 2:23 PM EDT Katharine Whitlock MD CHEMISTRY ORDERABLES Final Resu lt Performing Organization Address City/[facility] Co de Phone Number [facility] [address] [facility] , [place] [address] * T3 FREE (12/14/2024 12:41 PM EDT) Only the most recent of2 resultswithin the time period is included. T3 Free 2.24 2.00 - 4.40 pg/mL 12/14/2024 6:49 PM EDT [facility] Blood VENOUS BLOOD / Unknown Venipuncture / Unknown 12/14/2024 12:41 PM EDT 12/14/2024 2:23 PM EDT Narrative [facility] - 12/14/2024 6:49 PM EDT Ingestion of aldair doses of biotin (>5 mg/day) taken within 8 hours of drawing blood sample can interfere with this immunoassay test. Katharine Whitlock MD CHEMISTRY ORDERABLES Final [facility] Performing Organization Address [facility] de Phone Number [facility] [employer] [address] , [place] [address] * THYROID STIMULATING HORMONE (12/14/2024 12:41 PM EDT) Only the most recent of2 resultswithin the time period is included. TSH 0.737 0.270 - 4.200 mcIU/mL 12/14/2024 6:49 PM EDT [facility] Blood VENOUS BLOOD / Unknown Venipuncture / Unknown 12/14/2024 12:41 PM EDT 12/14/2024 2:23 PM EDT Narrative [facility] - 12/14/2024 6:49 PM EDT Ingestion of aldair doses of biotin (>5 mg/day) taken within 8 hours of drawing blood sample can interfere with this immunoassay test. Katharine Whitlock MD CHEMISTRY ORDERABLES Final Resu Performing Organization Address [facility] Co de Phone Number [facility] [employer] [address] [place] [address] * T4, FREE (THYROXINE) (12/14/2024 12:41 PM EDT) Only the most recent of2 resultswithin the time period is included. Free T4 1.41 0.80 - 1.80 ng/dL 12/14/2024 6:49 PM EDT [facility] Blood VENOUS BLOOD / Unknown Venipuncture / Unknown 12/14/2024 12:41 PM EDT 12/14/2024 2:23 PM EDT Narrative [facility] - 12/14/2024 6:49 PM EDT Ingestion of aldair doses of biotin (>5 mg/day) taken within 8 hours of drawing blood sample can interfere with this immunoassay test. Katharine Whitlock MD CHEMISTRY ORDERABLES Final Resu lt [facility] [address] [facility], [place] [address] * VITAMIN B6 (PYRIDOXINE) -REF LAB (12/14/2024 12:41 PM EDT) Only the most recent of2 resultswithin the time period is included. Pathologist [facility] Vit B6 37.9 20.0 - 125.0 nmol/L 12/19/2024 5:11 AM EDT [employer] Comment: INTERPRETIVE INFORMATION: Vitamin B6 (Pyridoxal 5-Phosphate) Pyridoxal 5'-phosphate measured in a specimen collected following an 8-hour or overnight fast accurately indicates vitamin B6 nutritional status. Non-fasting specimen concentration reflects recent vitamin intake. This test was developed and its performance characteristics determined by [employer]. It has not been cleared or approved by the US Food and Drug Administration. This test was performed in a CLIA certified laboratory and is intended for clinical purposes. Performed By: [employer] [address] [place] [address] Rn Medical Inpatient Services: Uvaldo Youssef MD, PhD CLIA Number: [id number] Blood VENOUS BLOOD / Unknown Venipuncture / Unknown 12/14/2024 12:41 PM EDT 12/14/2024 4:56 PM EDT Katharine Whitlock MD CHEMISTRY ORDERABLES Final Resu lt [facility] [address] [place] [address] * PARATHYROID HORMONE INTACT (12/14/2024 12:41 PM EDT) PTH Intact 27.90 15.00 - 65.00 pg/mL 12/14/2024 6:35 PM EDT [facility] Blood VENOUS BLOOD / Unknown Venipuncture / Unknown 12/14/2024 12:41 PM EDT 12/14/2024 2:31 PM EDT Narrative [facility] - 12/14/2024 6:35 PM EDT Intact PTH [...] Whitlock MD CHEMISTRY ORDERABLES Final Resu lt [facility] [address] [facility] , [address] [place] [id number] * LACTIC ACID (12/14/2024 12:41 PM EDT) Only the most recent of4 resultswithin the time period is included. Lactic Acid 0.9 0.5 - 1.9 mmol/L 12/14/2024 1:41 PM EDT [facility] Blood VENOUS BLOOD / Unknown Venipuncture / Unknown 12/14/2024 12:41 PM EDT 12/14/2024 1:14 PM EDT Katharine Whitlock MD CHEMISTRY ORDERABLES Final Resu lt Performing Organization Address City/[facility]/ZIP Co de Phone Number [facility] [address] [place] [address] * LUTEINIZING HORMONE (12/14/2024 12:41 PM EDT) Only the most recent of2 resultswithin the time period is included. LH 44.10 mIU/mL 12/14/2024 6:58 PM EDT [facility] Comment: Suggested Reference Ranges (mIU/mL) Females Follicular Phase 2.4 - 12.6 Ovulation Phase 14.0 - 95.6 Luteal Phase 1.0 - 11.4 Postmenopause 7.7 - 58.5 Males 1.7 - 8.6 Blood VENOUS BLOOD / Unknown Venipuncture / Unknown 12/14/2024 12:41 PM EDT 12/14/2024 3:30 PM EDT Narrative [facility] - 12/14/2024 6:58 PM EDT Ingestion of aldair doses of biotin (>5 mg/day) taken within 8 hours of drawing blood sample can interfere with this immunoassay test. Katharine Whitlock MD CHEMISTRY ORDERABLES Final Resu lt Performing Organization Address City/[facility]/ZIP Co de Phone Number [facility] [address] [facility] , [place] [address] * VITAMIN B12 LEVEL (12/14/2024 12:41 PM EDT) Only the most recent of2 resultswithin the time period is included. Vitamin B12 379 232 - 1,245 pg/mL 12/14/2024 6:58 PM EDT [facility] Blood VENOUS BLOOD / Unknown Venipuncture / Unknown 12/14/2024 12:41 PM EDT 12/14/2024 3:30 PM EDT Narrative [facility] - 12/14/2024 6:58 PM EDT Ingestion of aldair doses of biotin (>5 mg/day) taken within 8 hours of drawing blood sample can interfere with this immunoassay test. Katharine Whitlock MD CHEMISTRY ORDERABLES Final Resu Performing Organization Address City/[facility] Co de Phone Number [facility] [address] [place] [address] , [place] [address] * CORTISOL (12/14/2024 12:41 PM EDT) Only the most recent of2 resultswithin the time period is included. Cortisol 5.82 mcg/dL 12/14/2024 6:5 8 PM EDT [facility] Blood VENOUS BLOOD / Unknown Venipuncture / Unknown 12/14/2024 12:41 PM EDT 12/14/2024 3:30 PM EDT [facility] - 12/14/2024 6:58 PM EDT AM: 4.82 [...] CHEMISTRY ORDERABLES Final Resu Performing Organization Address [facility] Co de Phone Number [facility] [address] [place] [address] EDW[place]E [place] [address] * (ABNORMAL) COMPREHENSIVE METABOLIC PANEL [...] recommended by the National Kidney Foundation - [place] Society of Nephrology Task Force. Blood VENOUS BLOOD / Unknown Venipuncture / Unknown 12/14/2024 12:41 PM EDT 12/14/2024 2:23 PM EDT us Katharine Whitlock MD CHEMISTRY ORDERABLES Final Resu lt [facility] [address] [facility] , [place] [address] * US THYROID (12/12/2024 12:48 PM EDT) [...] 12:48 PM CLINICAL HISTORY: Thyroid nodule(s). E03.9-Hypothyroidism, tuvfyqiuzre-ABV-76-CM. COMPARISON: None. PROCEDURE COMMENTS: Sonographic evaluation of [...] 12:48 PM CLINICAL HISTORY: Thyroid nodule(s). E03.9-Hypothyroidism, xewuvpusrwv-BLF-51-CM. COMPARISON: None. PROCEDURE COMMENTS: Sonographic evaluation of [...] d Result - Final Performing Organization Address City/[facility]/ZIP Co de Phone Number SEP OFFICE * [...] Res ult - Final Performing Organization Address [facility]/State/ZIP Co de Phone Number SEP OFFICE * THYROGLOBULIN -REF LAB (11/27/2024) Thyroglob Ab <1.0 IU/ML SEP OFFICE Blood VENOUS BLOOD / Unknown 11/27/2024 Katharine Whitlock MD CHEMISTRY ORDERABLES Edited Res ult - Final Performing Organization Address [facility] de Phone Number SEP OFFICE * DEHYDROEPIANDROSTERONE -REF LAB (11/27/2024) DHEA Sulfate 10.3 MCG/DL SEP OFFICE Blood VENOUS BLOOD / Unknown 11/27/2024 Result [facility] Katharine Whitlock MD CHEMISTRY ORDERABLES Edited Res ult - Final Performing Organization Address [facility] de Phone Number SEP OFFICE * LIPID [...] Res ult - Final Performing Organization Address [facility] Co de Phone Number SEP [...] LES Final Result Performing Organization Address [facility] Co de Phone Number SEP [...] LES Final Result Performing Organization Address [facility] Co de Phone Number SEP OFFICE * XR CERVICAL SPINE AP AND LATERAL (09/16/2022 1:45 PM EDT) Narrative Dayana Winkler - 09/16/2022 1:45 PM EDT Please see physician's note from office encounter for x-ray imaging result Oumar Alves MD IMG DIAGNOSTIC IMAGING O RDERABLES Final Result * ND ARTHROCENTESIS ASPIR&/INJ MAJOR JT/BURSA W/O US (09/16/2022 [...] Final Result Performing Organization Address City/State/ZIP Co id Phone Number ORTHOCINCY * NM GASTRIC EMPTYING [...] GASTRIC EMPTYING 08/19/2022 12:17 PM CLINICAL HISTORY: K21.11-Nmjkbv-hkvtydhdms reflux disease with esophagitis, without sqonfsfy-UVR-67-CM. COMPARISON: CT abdomen and pelvis with IV [...] GASTRIC EMPTYING 08/19/2022 12:17 PM CLINICAL HISTORY: K21.81-Xvpppy-nfqyuzcapb reflux disease withesophagitis, without nrdgbztm-SNP-26-CM. COMPARISON: CT abdomen and pelvis with IV [...] POC Yellow Color 07/26/2022 10:36 AM EDT [facility] UA Appear POC Clear Clear 07/26/2022 10:36 AM EDT [facility] UA Gluc POC Negative Negative mg/dL 07/26/2022 10:36 AM EDT [facility] UA Bili POC Negative Negative 07/26/2022 10:36 AM EDT [facility] UA Ketones POC Negative Negative mg/dL 07/26/2022 10:36 AM EDT [facility] UA SG POC <=1.005 1.001 - 1.035 no units 07/26/2022 10:36 AM EDT [facility] UA Blood POC Small(A) Negative 07/26/2022 10:36 AM EDT [facility] UA pH POC 5.5 5.0 - 8.0 pH 07/26/2022 10:36 AM EDT [facility] UA Protein POC Negative Negative mg/dL 07/26/2022 10:36 AM EDT [facility] UA Urobilinogen POC 0.2 0.2, 1.0 07/26/2022 10:36 AM EDT [facility] Nitrite POC Negative Negative 07/26/2022 10:36 AM EDT [facility] UA Leuk Est POC Negative Negative 10:36 AM EDT [facility] Urine URINE SPECIMEN COLLECTION / Unknown 07/26/2022 10:33 AM EDT 07/26/2022 10:36 AM EDT Sandra Murrell PA-C POINT OF CARE TEST ORDERAB LES Final Result [facility] [address] [place], [place] [id number] * CBC WITH DIFF (07/18/2022 4:12 PM EDT) Only the most recent of9 resultswithin the time period is included. WBC 5.0 3.7 - 10.3 x10(3)/mcL 07/18/2022 4:18 PM EDT [facility] RBC 4.64 3.90 - 5.20 x10(6)/mcL 07/18/2022 4:18 PM EDT [facility] Hgb 13.3 11.2 - 15.7 g/dL 07/18/2022 4:18 PM EDT [facility] Hct 39.3 34.0 - 45.0 % 07/18/2022 4:18 PM EDT [facility] MCV 84.7 80.0 - 100.0 fL 07/18/2022 4:18 PM EDT [facility] MCH 28.7 26.0 - 34.0 pg 07/18/2022 4:18 PM EDT [facility] MCHC 33.8 30.7 - 35.5 g/dL 07/18/2022 4:18 PM EDT [facility] RDW 13.2 <=14.9 % 07/18/2022 4:18 PM EDT [facility] Platelet 254 155 - 369 x10(3)/mcL 07/18/2022 4:18 PM EDT [facility] MPV 9.6 8.8 - 12.5 fL 07/18/2022 4:18 PM EDT [facility] Neut Percent 49.6 % 07/18/2022 4:18 PM EDT [facility] Comment:Neutrophils equals s egs plus bands Imm Gran% 0.4 % 07/18/2022 4:18 PM EDT [facility] Comment:Automated count of m etamyelocytes, myelocytes and promyelocytes. Lymph Percent 36.1 % 07/18/2022 4:18 PM EDT [facility] [place] Percent 10.9 % 07/18/2022 4:18 PM EDT [facility] Eos Percent 2.0 % 07/18/2022 4:18 PM EDT [facility] Baso Percent 1.0 % 07/18/2022 4:18 PM EDT [facility] Neut # 2.5 1.6 - 6.1 x10(3)/[facility] 07/18/2022 4:18 PM EDT [facility] Comment:Neutrophils equals s egs plus bands IMMGRAN# 0.0 0.0 - 0.1 x10(3)/[facility] 07/18/2022 4:18 PM EDT [facility] Comment:Automated count of m etamyelocytes, myelocytes and promyelocytes. An absolute IG <0.1 is reported as 0.0. Lymph # 1.8 1.2 - 3.9 x10(3)/[facility] 07/18/2022 4:18 PM EDT [facility] [place] # 0.5 0.3 - 0.9 x10(3)/[facility] 07/18/2022 4:18 PM EDT [facility] Eos# 0.1 0.0 - 0.5 x10(3)/[facility] 07/18/2022 4:18 PM EDT [facility] Baso # 0.1 0.0 - 0.1 x10(3)/[facility] 07/18/2022 4:18 PM EDT [facility] Blood VENOUS BLOOD / Unknown Venipuncture / Unknown 07/18/2022 4:12 PM EDT 07/18/2022 4:16 PM EDT Sameer Gan MD HEMATOLOGY ORDERABLES Final Result Performing Organization Address City/[facility]/ZIP Co de Phone Number [facility] [address] [place] [address] * BASIC METABOLIC PANEL (07/18/2022 4:12 PM EDT) Only the most recent of5 resultswithin the time period is included. Sodium 138 136 - 145 mmol/L 07/18/2022 4:33 PM EDT [facility] Potassium 3.8 3.5 - 5.0 mmol/L 07/18/2022 4:33 PM EDT [facility] Chloride 102 98 - 107 mmol/L 07/18/2022 4:33 PM EDT [facility] Total CO2 25 22 - 29 mmol/L 07/18/2022 4:33 PM EDT [facility] Anion Gap 11 7 - 16 mmol/L 07/18/2022 4:33 PM EDT [facility] Calcium 9.5 8.8 - 10.4 mg/dL 07/18/2022 4:33 PM EDT [facility] Glucose Lvl 99 82 - 100 mg/dL 07/18/2022 4:33 PM EDT [facility] BUN 14 8 - 23 mg/dL 07/18/2022 4:33 PM EDT [facility] Creatinine 0.93 0.51 - 1.30 mg/dL 07/18/2022 4:33 PM EDT [facility] eGFR (CKD-EPIcr 2020) 63 >=60 mL/min/1.7 3 m2 07/18/2022 4:33 PM EDT [facility] Comment:Estimated GFR was ca lculated using the CKD-EPIcr (2020) equation refit without race. The equation is recommended by the National Kidney Foundation - [place] Society of Nephrology Task Force. Blood VENOUS BLOOD / Unknown Venipuncture / Unknown 07/18/2022 4:12 PM EDT 07/18/2022 4:16 PM EDT Sameer Gan MD CHEMISTRY ORDERABLES Final Result Performing Organization Address City/[facility]/ZIP Co de Phone Number [facility] [address] [place] [address] * (ABNORMAL) URINALYSIS REFLEX (07/18/2022 2:45 PM EDT) UA Color Straw 07/18/2022 3:03 PM EDT [facility] UA Appear Clear Clear 07/18/2022 3:03 PM EDT [facility] UA Glucose Negative Negative mg/dL 07/18/2022 3:03 PM EDT [facility] UA Ketones Negative Negative mg/dL 07/18/2022 3:03 PM EDT [facility] UA Blood Moderate(A) Negative 07/18/2022 3:03 PM EDT [facility] UA pH 6.0 5.0 - 8.0 pH 07/18/2022 3:03 PM EDT [facility] UA Protein Negative Negative mg/dL 07/18/2022 3:03 PM EDT [facility] UA Urobilinogen 0.2 <=1 mg/dL 3:03 PM EDT [facility] UA Bili Negative Negative 07/18/2022 3:03 PM EDT [facility] UA Nitrite Negative Negative 07/18/2022 3:03 PM EDT [facility] UA Leuk Est Trace(A) Negative 07/18/2022 3:03 PM EDT [facility] UA Spec Grav 1.010 1.001 - 1.035 no units 07/18/2022 3:03 PM EDT [facility] Comment:Reference range ruth d for random specimens only. UA WBC 1 0 - 4 /HPF 07/18/2022 3:03 PM EDT [facility] UA RBC 0 0 - 3 /HPF 07/18/2022 3:03 PM EDT [facility] UA Squam Epi Rare /LPF 07/18/2022 3:03 PM EDT [facility] Urine URINE SPECIMEN COLLECTION, CLEAN CATCH / Unknown 07/18/2022 2:45 PM EDT 07/18/2022 2:47 PM EDT Sameer Gan MD URINE ORDERABLES Final Resu lt Performing Organization Address [facility] Co de Phone Number [facility] [address] [place] [address] * EXTRA [place] URINE CX (07/18/2022 2:45 PM EDT) Only the most recent of6 resultswithin the time period is included. Urine URINE SPECIMEN COLLECTION, CLEAN CATCH / Unknown 07/18/2022 2:45 PM EDT 07/18/2022 2:47 PM EDT Sameer Gan MD MICROBIOLOGY - GENERAL ANDRÉSE TANO Final Result Performing Organization Address [facility] de Phone Number [facility] [address] [place] [address] * URINE CULTURE (NO STAIN) (07/18/2022 2:45 PM EDT) Only the most recent of9 resultswithin the time period is included. Culture Multiple bacterial species isolated from urine consistent with urogenital commensal organisms. 07/20/2022 10:02 AM EDT [facility] Urine URINE SPECIMEN COLLECTION, CLEAN CATCH / Unknown 07/18/2022 2:45 PM EDT 07/18/2022 3:03 PM EDT Sameer Gan MD MICROBIOLOGY - GENERAL DIANA FREEDMAN Final Result Performing Organization Address [facility] Co de Phone Number [facility] [address] [facility] , [place] [address] * XR LUMBAR SPINE AP [...] ORDERABLES Final R esult Performing Organization Address City/[facility] Co de Phone Number [facility] [address] [facility] , [place] [address] * (ABNORMAL) HEPATIC FUNCTION PANEL (06/22/2022 1:15 PM EST) Pathologist [facility] Total Protein 7.3 6.4 - 8.3 gm/dL [...] ORDERABLES Final R esult Performing Organization Address [facility]/ZIP Co de Phone Number [facility] [address] [facility] , [place] [address] * OCT, OPTIC NERVE - [...] 05/12/2022 1:40 PM CLINICAL HISTORY: R10.9-Unspecified abdominal ntsi-RRG-26-CM. COMPARISON: 12/11/2020 PROCEDURE COMMENTS: Multidetector CT examination [...] 05/12/2022 1:40 PM CLINICAL HISTORY: R10.9-Unspecified abdominal qyqd-UAK-17-CM. COMPARISON: 12/11/2020 PROCEDURE COMMENTS: Multidetector CT examination [...] MD IMG CT ORDERABLES Final Result * 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 (05/05/2022 4:39 PM EST) CASE REPORT Non-gynecologi c Cytology Case: [id number] Authorizing Provider: Sandra Murrell PA-C Collected: 05/05/2022 1639 Ordering Location: [facility] Received: 05/05/2022 1639 Pathologist: Danelle Dixon MD Specimen: Bladder, Urinary 05/06/2022 11:23 AM EST [facility] NON-RADIO BOARD OPERATOR CYTOLOGY FINAL DIAGNOSIS Bladder washing: - Negative for high grade urothelial carcinoma. 05/06/2022 11:23 AM EST [facility] at 1122 EST EMBEDDED IMAGES 05/06/2022 11:23 AM EST Maintenance Assistant [facility] MICROSCOPIC DESCRIPTION Microscopic examination is performed and the findings corroborate the diagnosis. 05/06/2022 11:23 AM EST Maintenance Assistant [facility] Gross Description Urinary Bladder Washing, Rec'd 80ml of yellow fluid. (TP) 05/06/2022 11:23 AM EST Maintenance [facility] Urine SPECIMEN FROM URINARY BLADDER / Unknown 05/05/2022 4:39 PM EST 05/05/2022 4:39 PM EST us Sandra Murrell PA-C CYTOLOGY ORDERABLES Final Result [facility] [address] [place] [address] * (ABNORMAL) URINALYSIS (05/05/2022 4:39 PM [...] ORDERABLES Final Res ult Performing Organization Address City/[facility]/ZIP Co de Phone Number [facility] [address] [facility] , [place] [address] * (ABNORMAL) [id number] A/B (04/28/2022 6:38 AM EST) CORONAVIRUS [id number] Not Detected Not Detected 04/28/2022 7:12 AM EST [facility] Influenza A DNA Detected(A) Not Detected 04/28/2022 7:12 AM EST [facility] Influenza B DNA Not Detected Not Detected 04/28/2022 7:12 AM EST [facility] Swab BOTH ANTERIOR NARES / Unknown 04/28/2022 6:38 AM EST 04/28/2022 6:47 AM EST Narrative [facility] - 04/28/2022 7:12 AM EST [...] and Patients: DIANDRA Fact Sheet for Providers: https://www.fda.gov/media/518953/download DIANDRA Fact Sheet for Patients: https://www.fda.gov/media/948203/download Jonas Mayorga MD MICROBIOLOGY - GENERAL ORDER LILO Final Result Performing Organization Address [facility]/ZIP Co de Phone Number [facility] [address] [place] [address] * (ABNORMAL) EMG (02/18/2022) Impressions SEP OFFICE [...] in degree electrically. Hollis Yoo M.D. Diplomate, [place] Board [employer] Electrodiagnostic [employer] Narrative SEP OFFICE [...] Christian MD NEUROLOGY ORDERABLES Cindy brumfield Result [facility] OFFICE * XR CHEST PA AND LATERAL [...] X-RAY, 01/26/2022 2:27 PM CLINICAL HISTORY: R05.9-Cough, fmchxfxstip-VZI-53-CM COMPARISON: 10/29/2021 PROCEDURE COMMENTS: Frontal and lateral views of the chest. FINDINGS: Cardiovascular structures within normal limits. No pneumonia or effusion. No pneumothorax. Procedure Note Galdino Sosa MD - 01/26/2022 PA AND LATERAL CHEST X-RAY, 01/26/2022 2:27 PM CLINICAL HISTORY: R05.9-Cough, henkdpmyvgu-XZT-86-CM COMPARISON: 10/29/2021 PROCEDURE COMMENTS: Frontal and lateral [...] left-sided facet disease is present resulting in mnwb-oz-dfyowsmd central canal stenosis, with left lateral recess [...] 1:06 PM CLINICAL HISTORY: M54.50-Low back pain, vtqdphuhvnf-HFP-58-CM. COMPARISON: May 23, 2012. PROCEDURE COMMENTS: Multiplanar [...] 1:06 PM CLINICAL HISTORY: M54.50-Low back pain, zlasdbvrwvh-UBT-40-CM. COMPARISON: May 23, 2012. PROCEDURE COMMENTS: Multiplanar [...] and left-sided facet disease is present resulting bqyakl-kc-nfhmjerj central canal stenosis, with left lateral recess stenosis potentiallyimpinging the descending left L4 nerve root 3. At L2-3, disc bulge with right-sided facet arthritis/ligamentoushypertrophy results in right lateral recess stenosis and could result in right O3odibcnoem symptoms. - Note: Radiology results need to be interpreted within a comprehensiveclinical context. If you have questions about the radiology report, please contactthe office of the ordering clinician. Mikey Christian MD [facility] MRI ORDERABLES Final Result * POCT EDIL [...] ORDE RABLES Final Result Performing Organization Address City/[facility] Co de Phone Number SEP OFFICE * CORONAVIRUS 2019 (04/16/2021 11:24 AM EST) Only the most recent of4 resultswithin the time period is included. Pathologist [facility] CORONAVIRUS [id number] Not Detected Not Detected 04/17/2021 2:30 PM EST [facility] Comment: Caution should be exercised when interpreting [...] of COVID-19. Test is performed on the [employer] platform under the FDA's Emergency Use Authorization (EUA). [facility] Provider Fact Sheet: https://www.fda.gov/media/409729/download [facility] Patient Fact Sheet: https://www.fda.gov/media/627784/download Performed at [facility] [address] [place] [address] CLIA [id number] Swab BOTH ANTERIOR NARES / Unknown 04/16/2021 11:24 AM EST 04/16/2021 11:24 AM EST Janet Vogt MD MICROBIOLOGY - GENERAL ORDERABLES Final Result Performing Organization Address City/[facility]/ZIP Co de Phone Number [facility], [address] [place] [phone] * POCT EKG (04/10/2021 11:36 AM EST) [...] HIGH SENSITIVITY 2HR (12/11/2020 2:09 PM EDT) nb-hPzzfclbe-G 2HR <6 <14 ng/L 12/11/2020 2:34 PM EDT [facility] Comment:See the website Halldis for rule out RI care pathway, conditions other than AMI that can cause elevated hs cTnT, and comparison of values from the 4th and 5th generation Dex tests. https://[email or web address]/clinical-answers/[email or web address]/cpm-[email or web address] 56782 hs-cTnT 2Hr Delta from Baseline 12/11/2020 2:34 PM EDT [facility] Comment:Unable to calculate, result is outside instrument's measuring range. Blood VENOUS BLOOD / Unknown Venipuncture / Unknown 12/11/2020 2:09 PM EDT 12/11/2020 2:15 PM EDT Narrative [facility] - 12/11/2020 2:34 PM EDT Ingestion of aldair doses of biotin (>5 mg/day) taken within 8 hours of drawing blood sample can interfere with this immunoassay test. Esther Gramajo BUFFING WHEEL INSPECTOR CHEMISTRY ORDERABLES Final R esult [facility] [address] [place] [address] * CORONAVIRUS 2019 POCT (12/11/2020 12:48 PM EDT) [facility] Signature COV19 RNA POCT Negative Negative 12/11/2020 1:41 PM EDT [facility] Swab NASAL STRUCTURE / Unknown 12/11/2020 12:48 PM EDT 12/11/2020 1:21 PM EDT Narrative [facility] - 12/11/2020 1:41 PM EDT The [...] management. [place] ID NOW Provider Fact Sheet: https://www.fda.gov/media/163991/download [place] ID NOW Patient Fact Sheet: https://www.fda.gov/media/273218/download us Esther Gramajo BUFFING WHEEL INSPECTOR MICROBIOLOGY - GENERAL ORDER LILO Final Result [facility] [place] [address] * EK EKG 12 LEAD (12/11/2020 12:37 PM EDT) Only the most recent of3 resultswithin the time period is included. Anatomical Region Laterality Modality Electrocardiogra phy 12/11/2020 12:5 0 PM EDT Impressions 12/11/2020 2:[address] [facility] Test Date: 2020-12-11 Pat Name: GILBERT MOREIRA Department: DEPID Room: 20 Gender: Female Printing Table Worker: Nasreen : 1945 Requested By: ESTHER Leslie Order Number: [id number] Reading MD: Dre Pardo MD Measurements Intervals [place] Rate: 61 P: -72 ND: 169 QRS: 37 QRSD: 106 T: 48 QT: 444 QTc: 448 Interpretive Statements SINUS RHYTHM NORMAL ECG NO PRIOR TRACING Electronically Signed On 12-11-2020 14:34:49 EDT by Dre Pardo MD Narrative Procedure Note Dre Pardo MD - 12/11/[address] Test Date: 2020-12-11 Pat Name: GILBERT MOREIRA Department: DEPID Room: 20 Gender: Female Printing Table Worker: Nasreen : 1945 Requested By: ESTHER Leslie Order Number: [id number] Reading MD: Dre Pardo MD Measurements Intervals [place] Rate: 61 P: -72 ND: 169 QRS: 37 QRSD: 106 T: 48 QT: 444 QTc: 448 Interpretive Statements SINUS RHYTHM NORMAL ECG NO PRIOR TRACING Electronically Signed On 12-11-2020 14:34:49 EDT by Dre Pardo MD Esther Gramajo BUFFING WHEEL INSPECTOR IMG ECG ORDERABLES Final Res ult * TROPONIN-T HIGH SENSITIVITY BASELINE W/ REFLEX (12/11/2020 12:02 PM EDT) Only the most recent of5 resultswithin the time period is included. dj-vQuwnrcgi-X <6 <14 ng/L 12/11/2020 2:06 PM EDT [facility] Comment:See the website brandon mSilica for rule out RI care pathway, conditions other than AMI that can cause elevated hs cTnT, and comparison of values from the 4th and 5th generation Dex tests. [email or web address] Blood VENOUS BLOOD / Unknown Venipuncture / Unknown 12/11/2020 12:02 PM EDT 12/11/2020 1:52 PM EDT Narrative [facility] - 12/11/2020 2:06 PM EDT Ingestion of aldair doses of biotin (>5 mg/day) taken within 8 hours of drawing blood sample can interfere with this immunoassay test. Esther Gramajo BUFFING WHEEL INSPECTOR CHEMISTRY ORDERABLES Final R [facility] Performing Organization Address City/[facility]/[place] [address] * LIPASE LEVEL (12/11/2020 12:02 PM EDT) Only the most recent of2 resultswithin the time period is included. Lipase Lvl 48 13 - 60 U/L 12/11/2020 1:54 PM EDT [facility] Blood VENOUS BLOOD / Unknown Venipuncture / Unknown 12/11/2020 12:02 PM EDT 12/11/2020 12:18 PM EDT Esther Gramajo BUFFING WHEEL INSPECTOR CHEMISTRY ORDERABLES Final R esult [facility] [address] [place] [address] * SCANNED RHYTHM STRIPS (12/09/2020 10:22 AM EDT) Anatomical Region Laterality Modality Other 12/09/2020 10:2 2 AM EDT us Unknown Provider IMG ECG ORDERABLES Final Result * Peripheral Block by Anesthesia (12/08/2020 2:08 PM EDT) Narrative [facility] - 12/08/2020 2:08 PM EDT Denae Galarza MD 12/08/2020 2:09 PM Peripheral Block by Anesthesia Procedure Date/Time: 12/08/2020 1:51 PM Patient location during procedure: OR Reason for block: at surgeon's request and post-op pain management Staff and Pre-procedure checks Anesthesiologist: Denae Galarza MD Resident/STOPPER SETTER: Laura Holden CRNA Performed: anesthesiologist Preanesthetic Checklist: [...] of the block is attached/scanned to the [facility] chart. us Denae Galarza MD ANESTHESIA ORDERABLES Edited R esult - Final [facility] [address] [place] [address] * Peripheral Block by Anesthesia (12/08/2020 2:06 PM EDT) Narrative [facility] - 12/08/2020 2:06 PM EDT Denae Galarza MD 12/08/2020 2:08 PM Peripheral Block by Anesthesia Procedure Date/Time: 12/08/2020 1:52 PM Patient location during procedure: OR Reason for block: at surgeon's request and post-op pain management Staff and Pre-procedure checks Anesthesiologist: Denae Galarza MD Resident/STOPPER SETTER: Laura Holden CRNA Performed: anesthesiologist Preanesthetic Checklist: [...] visualized. Ultrasound image documentation is attached/scanned in [facility] chart.) Ultrasound probe: linear Ultrasound needle approach: [...] of the block is attached/scanned to the [facility] chart. us Denae Galarza MD ANESTHESIA ORDERABLES Final Re sult [facility] [address] [place] [address] * PATHOLOGY TISSUE REQUEST (12/08/2020 1:55 PM EDT) Only the most recent of2 resultswithin the time period is included. CASE REPORT Surgical Pathology Case: [id number] Authorizing Provider: Geoff Gan MD Collected: 12/08/2020 1355 Ordering Location: ED SAME DAY SURGERY Received: 12/09/2020 1000 Pathologist: Claudia Issa MD Specimen: Gallbladder, GALLBLADDER 12/10/2020 10:14 AM EDT [facility] FINAL DIAGNOSIS Gallbladder, cholecystectomy: - Acute and chronic cholecystitis. - Cholelithiasis. 12/10/2020 10:14 AM EDT [facility] at 1014 EDT GROSS DESCRIPTION [...] identified. The wall thickness averages 0.1 cm. Acidity Tester sections, to include the cystic duct margin, en face are submitted in cassette A1. BR 12/09/2020 11:29 AM 12/10/2020 10:14 AM EDT [facility] MICROSCOPIC DESCRIPTION Microscopic examination is performed and the findings corroborate the diagnosis. 12/10/2020 10:14 AM EDT [facility] EMBEDDED IMAGES 12/10/2020 10:14 AM EDT [facility] Tissue ENTIRE GALLBLADDER / Unknown 12/08/2020 1:55 PM EDT 12/09/2020 10:00 AM EDT us Geoff Gan MD PATHOLOGY ORDERABLES Final Re sult Performing Organization Address City/[facility] de Phone Number [facility] [address] [place] [address] [place] [address] * INTRAOP AIRWAY PLACEMENT (12/08/2020 1:46 PM EDT) Narrative [facility] - 12/08/2020 1:46 PM EDT Laura [...] attempts: 1 Attempt 1 by: FARIBA Title: STOPPER SETTER us Denae Galarza MD ND ANESTHESIA Final Result [facility] [address] [place] [address] * (ABNORMAL) COMPLIANCE PANEL, URINE (09/19/2020 10:54 AM EDT) [facility] Medications Expected Gabapentin 08/31 7:49 AM EDT [facility] Creatinine Ur >25.0 mg/dL 09/22/2020 7:49 AM EDT [facility] Comment: Greater than 20: Consistent with valid sample Greater than 2 but less than 20: Possible dilution Less than 2: Questionable valid sample THC <10 Cutoff 10 ng/mL ng/mL 09/22/2020 7:49 AM EDT [facility] Comment:0-bbqqknb-vhxzxutydq cannabinol; does not distinguish between prescribed and [...] 09/22/2020 7:49 AM EDT [facility] Comment:e.g.,Rohypnol, Narco zep 7-Aminoflunitrazepam <50 Cutoff 50 ng/mL ng/mL 09/22/2020 7:49 AM EDT [facility] Comment:Metabolite of Flunit razepam Flurazepam <50 Cutoff 50 ng/mL ng/mL 09/22/2020 7:49 AM EDT [facility] Comment:e.g., Dalmane Hydroxyethylflurazepam <50 Cutoff 50 ng/mL ng/mL 09/22/2020 7:49 AM EDT [facility] Comment:Metabolite of Fluraz epam [...] 09/22/2020 7:49 AM EDT [facility] Comment:Metabolite of Temaze candie and Diazepam Triazolam <50 Cutoff 50 ng/mL ng/mL 09/22/2020 7:49 AM EDT [facility] Comment:e.g., Halcion alpha-hydroxytriazolam <50 Cutoff 50 ng/mL ng/mL 09/22/2020 7:49 AM EDT [facility] Comment:Metabolite of Triazo lopez Buprenorphine <5 Cutoff 5 ng/mL ng/mL 09/22/2020 7:49 AM EDT [facility] Comment:e.g., Suboxone, Subu ravindra,Sublocade, Buprenex Buprenorphine Glucuronide <10 Cutoff 10 ng/mL ng/mL 09/22/2020 7:49 AM EDT [facility] Comment:Buprenorphine Metabo lite Norbuprenorphine <5 Cutoff 5 ng/mL ng/mL 09/22/2020 7:49 AM EDT [facility] Comment:Buprenorphine Metabo lite Norbuprenorphine Glucuronide <10 Cutoff 10 ng/mL ng/mL 09/22/2020 7:49 AM EDT [facility] Comment:Buprenorphine Metabo lite Benzoylecgonine <50 Cutoff 50 ng/mL ng/mL 09/22/2020 7:49 AM EDT [facility] Comment:Cocaine Metabolite Fentanyl <1 Cutoff 1 ng/mL ng/mL 09/22/2020 7:49 AM EDT [facility] Comment:e.g.,Duragesic, Oral et, Actiq, Sublimaze, Innovar, Lazanda Norfentanyl <1 Cutoff 1 ng/mL ng/mL 09/22/2020 7:49 AM EDT [facility] Comment:Metabolite of Fentan yl 6-Monoacetylmorphine (6MAM) <10 Cutoff 10 ng/mL ng/mL 09/22/2020 7:49 AM EDT [facility] Comment:Metabolite of Heroin ; Morphine is expected Methadone <50 Cutoff 50 ng/mL ng/mL 09/22/2020 7:49 AM EDT [facility] Comment:e.g., Dolophine, Met hadose, Amidone EDDP <50 Cutoff 50 ng/mL ng/mL 09/22/2020 7:49 AM EDT [facility] Comment:Methadone Metabolite Carisoprodol <100 Cutoff 100 ng/mL ng/mL 09/22/2020 7:49 AM EDT [facility] Comment:e.g., Soma Meprobamate <100 Cutoff 100 ng/mL ng/mL 09/22/2020 7:49 AM EDT [facility] Comment:e.g., Martell, Equa nil, Micrainin, Equagesic; Metabolite of Carisoprodol Codeine <50 Cutoff 50 ng/mL ng/mL 09/22/2020 7:49 AM EDT [facility] Comment:e.g., Acetaminophen w/Codeine, Tylenol3 w/ Codeine Codeine Glucuronide <50 Cutoff 50 ng/mL ng/mL 09/22/2020 7:49 AM EDT [facility] Comment:Metabolite of Codein e Meperidine <50 Cutoff 50 ng/mL ng/mL 09/22/2020 7:49 AM EDT [facility] Comment:e.g., Demerol, Pethi dine Normeperidine <50 Cutoff 50 ng/mL ng/mL 09/22/2020 7:49 AM EDT [facility] Comment:Metabolite of Meperi dine Morphine <50 Cutoff 50 ng/mL ng/mL 09/22/2020 7:49 AM EDT [facility] Comment:e.g., MS Contin, Tiffanie anol; Metabolite of Codeine and Heroin; may reflect poppy seed ingestion Mxscmhfp-7-Vgtgfcmljxq <25 Cutoff 25 ng/mL ng/mL 09/22/2020 7:49 AM EDT [facility] Comment:Metabolite of Morphi ne. Pcfvpmeu-4-Cijyfvjvird <25 Cutoff 25 ng/mL ng/mL 09/22/2020 7:49 AM EDT [facility] Comment:Metabolite of Morphi ne. Naloxone <25 Cutoff 25 ng/mL ng/mL 09/22/2020 7:49 AM EDT [facility] Comment:e.g., Narcan, Evzio Hydrocodone <50 Cutoff 50 ng/mL ng/mL 09/22/2020 7:49 AM EDT [facility] Comment:e.g., Lorcet, Lortab , Vicodin, [place]; Minor Metabolite of Codeine Dihydrocodeine <50 Cutoff 50 ng/mL ng/mL 09/22/2020 7:49 AM EDT [facility] Comment:e.g., Didrate, Parzo ne, Parlor, Synalgos; Metabolite of Hydrocodone Norhydrocodone <50 Cutoff 50 ng/mL ng/mL 09/22/2020 7:49 AM EDT [facility] Comment:Metabolite of Hydroc odone Hydromorphone <50 Cutoff 50 ng/mL ng/mL 09/22/2020 7:49 AM EDT [facility] Comment:e.g., Dilaudid; also Metabolite of Hydrocodone and Minor Metabolite of Morphine Hydromorphone Glucuronide <50 Cutoff 50 ng/mL ng/mL 09/22/2020 7:49 AM EDT [facility] Comment:Metabolite of Hydrom orphone Oxycodone <50 Cutoff 50 ng/mL ng/mL 09/22/2020 7:49 AM EDT [facility] Comment:e.g., Oxycontin, Per cocet, Endocet, Percodan, Roxicet Noroxycodone <50 Cutoff 50 ng/mL ng/mL 09/22/2020 7:49 AM EDT [facility] Comment:Metabolite of Oxycod one Oxymorphone <50 Cutoff 50 ng/mL ng/mL 09/22/2020 7:49 AM EDT [facility] Comment:e.g., Opana; Metabol ite of Oxycodone Oxymorphone Glucuronide <50 Cutoff 50 ng/mL ng/mL 09/22/2020 7:49 AM EDT [facility] Comment:Metabolite of Oxycod one Noroxymorphone <50 Cutoff 50 ng/mL ng/mL 09/22/2020 7:49 AM EDT [facility] Comment:Metabolite of Oxycod one, and Oxymorphone, Noroxycodone Metabolite Tramadol <50 Cutoff 50 ng/mL ng/mL 09/22/2020 7:49 AM EDT [facility] Comment:e.g., Ultram, ConZip O-Yrdhkwoxe-mdf-Tramadol <50 Cutoff 50 ng/mL ng/mL 09/22/2020 7:49 AM EDT [facility] [place], [facility] Comment:Metabolite of Tramad ol Tapentadol <50 Cutoff 50 ng/mL ng/mL 09/22/2020 7:49 AM EDT [facility] [place], [facility] Comment:Nucynta Tapentadol-Glucuronide <50 Cutoff 50 ng/mL ng/mL 09/22/2020 7:49 AM EDT [facility] [place], [facility] Comment:Metabolite of Tapent adol Urine STRUCTURE OF URINARY TRACT PROPER / Unknown 09/19/2020 10:54 AM EDT 09/19/2020 10:54 AM EDT Narrative [facility] - 09/22/2020 7:49 AM EDT The absence of expected drug(s), and/or drug metabolite(s), may indicate non-compliance, diluted or adulterated urine, poor drug absorption, concentration of drug below the cut-off, timing of specimen collection relative to administration of drug, or limitations of testing. If results do not fit clinical expectations, please reach out to the Toxicology department at [phone]. Specimens are held for 7 days. This test was developed, and its performance characteristics determined by [facility] ([facility]). It has not been cleared or approved by the FDA. This test is used for clinical purposes. It should not be regarded as investigational or for research. [facility] is certified under the Clinical Laboratory Improvement Amendments (CLIA) as qualified to perform high complexity clinical laboratory testing. Severo Harrell DO URINE ORDERABLES Final Result [facility] [address] [facility] [address] , [address] [place] [id number] * MRI ANKLE LEFT WO CONTRAST (09/03/2020 [...] AIRWAY PLACEMENT (08/27/2020 12:39 PM EDT) Narrative [facility] - 08/27/2020 12:39 PM EDT Yara Torres 08/27/2020 12:39 PM Intraop Airway Placement: Airway type: Nasal cannula salter Oumar Weiss MD ND ANESTHESIA Final Res ult [facility] [address] [place] [id number] * (ABNORMAL) VITAMIN B12/ FOLIC ACID (08/22/2020 2:29 PM EDT) Vitamin B12 >1,600(H) 232-1,245 pg/mL 08/22/2020 6:33 PM EDT [facility] [employer] Folate >16.00 >=4.80 ng/mL 08/22/2020 6:33 PM EDT [facility] [employer] Blood Venipuncture / Unknown 08/22/2020 2:29 PM EDT 08/22/2020 2:29 PM EDT Narrative [facility] - 08/22/2020 6:33 PM EDT Ingestion of aldair doses of biotin (>5 mg/day) taken within 8 hours of drawing blood sample can interfere with this immunoassay test. us Janet Vogt MD CHEMISTRY ORDERABLES Fi nal Result Performing Organization Address [facility] Co de Phone Number [facility] [address] [facility] [address] , [place] [address] * TSH REFLEX (08/22/2020 2:29 PM EDT) Only the most recent of2 resultswithin the time period is included. TSH Reflex 1.630 0.270 - 4.200 mcIU/mL 08/22/2020 6:19 PM EDT [facility] Blood Venipuncture / Unknown 08/22/2020 2:29 PM EDT 08/22/2020 2:29 PM EDT Narrative [facility] - 08/22/2020 6:19 PM EDT Ingestion of aldair doses of biotin (>5 mg/day) taken within 8 hours of drawing blood sample can interfere with this immunoassay test. Janet Vogt MD CHEMISTRY ORDERABLES nal Result Performing Organization Address [facility] Co de Phone Number [facility] [address] [facility] [address] , [place] [address] * MAGNESIUM LEVEL (08/22/2020 2:29 PM EDT) [facility] Magnesium 2.0 1.6 - 2.4 mg/dL 08/22/2020 6:07 PM EDT [facility] Blood VENOUS BLOOD / Unknown Venipuncture / Unknown 08/22/2020 2:29 PM EDT 08/22/2020 2:29 PM EDT Janet Vogt MD CHEMISTRY ORDERABLES Fi nal Result Performing Organization Address [facility] Co de Phone Number [facility] [address] [facility] [facility] [address] , [place] [address] * IOL BIOMETRY - OU [...] ORDERAB LES Final Result Performing Organization Address [facility] de Phone Number SEP OFFICE * INTRAOP AIRWAY PLACEMENT (07/30/2020 2:24 PM EDT) Narrative [facility] - 07/30/2020 2:24 PM EDT Laura Holden CRNA 07/30/2020 2:24 PM Intraop Airway Placement: Induction type: IV Airway type: Nasal cannula salter Juan Lynn MD ND ANESTHESIA Final R esult Performing Organization Address [facility] Phone Number [facility] [address] [place] [address] * OCT, OPTIC NERVE - OU - [...] ORDERAB LES Final Result Performing Organization Address [facility] de Phone Number SEP OFFICE * US RENAL AND BLADDER (04/22/2020 1:25 PM EST) Anatomical Region Laterality Modality Abdomen, Pelvis Ultrasound 04/22/2020 1:25 PM EST Impressions 04/22/2020 1:38 PM EST Bladder post void volume 11 mL. - Narrative 04/22/2020 1:38 PM EST US KIDNEYS AND BLADDER, 04/22/2020 1:25 PM CLINICAL HISTORY: R33.9-Retention of urine, whlaetrvlng-FHZ-50-CM. COMPARISON: None. PROCEDURE COMMENTS: Routine sonographic evaluation of the kidneys and bladder with area representative images and brownfield program coordinator notes sent to PACS for radiologist review. [...] 1:25 PM CLINICAL HISTORY: R33.9-Retention of urine, aragqrxcksu-FXA-84-CM. COMPARISON: None. PROCEDURE COMMENTS: Routine sonographic evaluation of the kidneys andbladder with area representative images and brownfield program coordinator notes sent to PACS forradiologist review. FINDINGS: [...] volume 11 mL. - Heydi Merrill MD [facility] US ORDERABLES Final Resu lt * (ABNORMAL) [...] bone density assessment. Study was performed on DecisionDesk 5. Bone Density: Region BMD T-score Z-score [...] Hull PA-C, OSMEL on 01/18/2020 1:11:00 PM. Jnaet Vogt MD IM DEXA ORDERABLES Fin al Result * SEDIMENTATION RATE AUTOMATED (01/08/2020 1:53 PM EDT) Sed Rate 6 0 - 30 mm/hr 01/08/2020 6:21 PM EDT [facility] Blood VENOUS BLOOD / Unknown Venipuncture / Unknown 01/08/2020 1:53 PM EDT 01/08/2020 1:53 PM EDT us Severo Harrell DO HEMATOLOGY ORDERABLES Final Res ult [facility] [address] [place] [address] * EK EKG CVMHU SCREENING (12/19/2019 12:15 PM EDT) Anatomical Region Laterality Modality Electrocardiogra phy 12/19/2019 7:34 AM EDT Impressions 12/20/2019 1:18 PM EDT [facility] Test Date: 2019-12-19 Pat Name: GLIBERT SPENCERLIN Department: DEPID Room: Gender: Female 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 Electronically Signed On 12-20-2019 13:18:04 EDT by Jorge Parker MD us Leoncio Haywood BUFFING WHEEL INSPECTOR IMG CVMHU EKG DIANA FREEDMAN Final Result * [facility] SCREEN[facility] SINGLE EXAM (12/19/2019 [...] is within normal ranges described by the [place] [employer] guidelines. Narrative Procedure Note Arthur Luna MD - 12/19/2019 IMPRESSION Findings & Recommendations Mild plaque seen during carotid artery screening. Recommend to follow upwith primary care physician to discuss risk modification and maybe rescreened in one year. The blood pressure taken at this screening is within normal rangesdescribed by the [place] [employer] guidelines. Leoncio Haywood BUFFING WHEEL INSPECTOR IMG VASCULAR ORDER LILO Final Result * [facility] COLONOSCOPY (07/11/2019 12:30 PM EDT) 07/11/2019 12:3 0 PM EDT Impressions [facility] - 07/11/2019 1:00 PM EDT Erythema in the distal rectum. (Biopsy). Otherwise normal colonoscopy. Abnormal digital rectal exam (large external hemorrhoids). Plan: No need for further screening colonoscopies due to age. This section is an excerpt of the full report. Gerardo Rahman MD GI PROCEDURE ORDERABLES Fi nal Result [facility] [address] [place] [address] * (ABNORMAL) POCT URINALYSIS DIPSTICK (05/24/2019 1:49 PM EST) Only the most recent of6 resultswithin the time period is included. Color, UA yellow CLEAR,YELL OW,ORANGE, RUST SEP OFFICE Clarity, UA clear CLEAR,CLOU DY SEP OFFICE Glucose, UA neg G/DL% SEP OFFICE Bilirubin, UA neg POS/NEG SEP OFFICE Ketones, UA neg POS/NEG SEP broadcast director operations Grav, UA 1.010 1.001 - 1.035 G/DL [...] EST Impressions 03/12/2019 11:08 AM EST Negative (BBX-Mdldxzgf-1) ~ RECOMMENDATION: Routine screening mammogram in 1 [...] for screening mammogram for malignant neoplasm of sxxcir-ODZ-13-CM ~ MM MAMMO DIG SCREEN CAD BILAT [...] for screening mammogram for malignant neoplasm of bylvdp-UIV-30-CM ~ MM MAMMO DIG SCREEN CAD BILAT Bilateral CC and MLO view(s) were taken. The breast tissue is almost entirely fat. Prior study comparison: Compared with prior studies the most recentbeing 01/31/18, 10/15/16 No mammographic evidence of malignancy. ~ IMPRESSION: Negative (SQM-Rmbghdnc-8) ~ RECOMMENDATION: Routine screening mammogram in 1 [...] SEP OFFICE Ketones, UA neg POS/NEG SEP broadcast director operations Grav, UA 1.015 1.001 - 1.035 G/DL SEP OFFICE Blood, UA 1+ POS/NEG SEP OFFICE pH, UA 6.0 5.0 - 8 SEP OFFICE Protein, UA trace POS/NEG SEP OFFICE Urobilinogen, UA neg 0.2 - 1.0 MG/DL SEP OFFICE Leukocytes, UA trace POS/NEG SEP OFFICE Nitrite, UA neg POS/NEG SEP OFFICE Appear BF Clear SEP OFFICE Lot Number [id number] SEP OFFICE Expiration Date 11/08/2020 SEP OFFICE [...] 11/23/2018 10:17 AM CLINICAL HISTORY: K59.01-Slow transit kcmqfioculjs-VLT-38-CM COMPARISON: None. PROCEDURE COMMENTS: AP view(s) of the abdomen per protocol. FINDINGS: Bowel gas pattern nonspecific. Stool burden not atypical. No small bowel distention. No organomegaly or mass. No abnormal calcifications. Procedure Note Galdino Sosa MD - 11/23/2018 CR, ABDOMEN AP, 11/23/2018 10:17 AM CLINICAL HISTORY: K59.01-Slow transit psbvhdqxlxhz-SMZ-60-CM COMPARISON: None. PROCEDURE COMMENTS: AP view(s) of [...] and Data System) is endorsed by the [place] [employer]. CAD-RADS grading is applied to vessels 1.5mm diameter and greater only. Link to source document. [email or web address]://[email or web address]/resmgr/cad-[email or web address]_jcct_cad-[email or web address] - - Narrative 09/20/2018 12:[address] CORONARY ANGIOGRAM, 09/20/2018 11:17 AM CLINICAL HISTORY: Z13.9-Encounter for screening, [id number] COMPARISON: None. PROCEDURE COMMENTS: Heart rate control using Metoprolol as documented in EPIC. 0.4mg of SL NTG given. 75 mL Isovue 370 intravenous contrast material. CCTA prospective ECG-gated technique for coronary artery visualization. Interactive 3-D postprocessing done by the reviewing physician on a unamia workstation, with one or more of the [...] 11:17 AM CLINICAL HISTORY: Z13.9-Encounter for screening, [id number] COMPARISON: None. PROCEDURE COMMENTS: Heart rate control using Metoprolol as documented inEPIC. 0.4mg of SL NTG given. 75 mL Isovue 370 intravenous contrast material.CCTA prospective ECG-gated technique for coronary artery visualization.Interactive 3-D postprocessing done by the reviewing physician on a unamia workstation,with one or more of the following: [...] Disease-Reporting and Data System) is endorsedby the [employer]. CAD-RADS grading is applied to vessels1.5mm diameter and greater only. Link to source document. https://cdn.ExecNote.angelcam/scct.org/resource/resmgr/cad-rads/scct_jcct_cad-rads.pdf - - Manav Batista MD IMG CT ORDERABLES Final Res ult * CREATININE ISTAT (09/20/2018 10:36 AM EDT) Creatinine-iST AT 1.0 0.6 - 1.3 mg/dL 09/20/2018 10:38 AM EDT [facility] Blood BLOOD SPECIMEN / Unknown 09/20/2018 10:36 AM EDT 09/20/2018 10:38 AM EDT us Manav Batista MD POINT OF CARE TEST ORDERABL ES Final Result Performing Organization Address City/[facility]/ZIP Co de Phone Number [facility] [address] [place] [address] * [facility] (07/03/2018 11:27 AM [...] Coffey MD CHEMISTRY ORDERABLES Final Resu lt [facility] [address] [place] [address] * EXTRA LAVENDER (06/14/2018 11:56 PM EST) Only the most recent of2 resultswithin the time period is included. Blood VENOUS BLOOD / Unknown Venipuncture / Unknown 06/14/2018 11:56 PM EST 06/14/2018 11:58 PM EST Sameer Coffey MD HEMATOLOGY ORDERABLES Final Res ult Performing Organization Address [facility] Phone Number [address] [address] * EXTRA LIGHT BLUE (06/14/2018 11:56 PM EST) Only the most recent of2 resultswithin the time period is included. Blood VENOUS BLOOD / Unknown Venipuncture / Unknown 06/14/2018 11:56 PM EST 06/14/2018 11:58 PM EST Sameer Coffey MD HEMATOLOGY ORDERABLES Final Res ult Performing Organization Address [facility] Phone Number [address] [address] * GRUBBS VISUAL FIELD - OU - [...] ORDERAB LES Final Result Performing Organization Address [facility] Phone Number SEP OFFICE * EC ECHOCARDIOGRAM [...] time period is included. ECG INTERPRET NSR [facility] SPECIALIST APPROVED Yes [facility] 04/25/2018 7:24 AM EST Narrative [facility] - 04/25/2018 10:01 AM EST ND 0.23 QRS 0.09 RR 1.02 QT 0.42 QTc 0.41 See Clinical Report link for waveform capture Unknown Provider POINT OF CARE CARDIOLOGY Final Result [facility] [address] [place] [address] * CT ANGIOGRAM HEAD AND NECK W [...] perez exam findings were [facility] Claire by Dr. Sanchez at 04/24/2018 10:30 PM. Binh Morales MD IMG CT ORDERABLES Final Resu lt * (ABNORMAL) GLUCOSE METER POC (04/24/2018 10:01 PM EST) Only the most recent of2 resultswithin the time period is included. [facility] Glucose Meter POC 155(H) 70 - 100 mg/dL 04/24/2018 10:02 PM EST [facility] Sample Type Capillary 04/24/2018 10:02 PM EST [facility] Patient Status Non-Critical Patient 04/24/2018 10:02 PM EST [facility] Blood BLOOD SPECIMEN / Unknown 04/24/2018 10:01 PM EST 04/24/2018 10:02 PM EST Sameer Elizondo MD POINT OF CARE TEST ORDERABLES Fi nal Result [facility] [address] [place] [address] * DEXA SCAN (10/07/2017) Impressions SEP OFFICE [...] Minimal joint effusion. us Geoff Dozier MD [facility] MRI ORDERABLES Final Result * MRI LUMBAR [...] T1 and T2-weighted sequences obtained with and mL MultiHance on 3.0 Brunilda magnet. FINDINGS: [...] most narrowed; mild to moderate Geoff Gant [facility] MRI ORDERABLES Final Result * SURGICAL PATHOLOGY REPORT (06/17/2011 6:44 PM EST) Surgical Pathology Report PATIENT NAME:GILBERT MOREIRA Surgical Pathology Report Accession Number Collected Date/Time Received Date/Time [id number] 06/17/11 18:44 EST 06/17/11 18:44 EST Diagnosis 1) Ascending colon: - Non-Dysplastic Mucosal Polyps, consistent with Hyperplastic polyps. 2) Rectum: - Non-Dysplastic Mucosal Polyps, consistent with Hyperplastic polyps. CESAR MASON MD (Electronically signed by) Verified: 06/22/2011 TSG Sign Out Location Comment CPT CODE 09323 x 2 Clinical Information Screening colonoscopy; personal [...] and the findings corroborate the diagnosis. _ [facility] 06/17/2011 6:44 PM EST us Soha Lau PATHOLOGY ORDERABLES Final Resul t [facility] [address] [place] [address] * DX VERTEBRAL FRACTURE ASSESSMENT (05/26/2010 12:54 [...] via vertebral fracture assessment. Kat Timmons P.A.-C., [facility], CCD/Colton Wisdom M.D., SUZI, CCD Procedure Note [...] studies. IMPRESSION- No radiographic evidence of malignancy (QZG-Ctxwbccz-2) RECOMMENDATION- Routine screening mammogram in 1 year. * The patient with a palpable abnormality, unexplained by breast imaging, should be managed on clinical basis by the attending physician. * Breast imaging has a false negative rate of 15%. * The patient was notified by mail of the results of this examination. The mammogram was reviewed by a Radiologist and CAD. Fabrication Lead- GIBSON Cantu Physician- CAROLINA OATES MD Released [...] studies. IMPRESSION- No radiographic evidence of malignancy (ZEI-Gvfolcfe-4) RECOMMENDATION- Routine screening mammogram in 1 year. * The patient with a palpable abnormality, unexplained by breast imaging, should be managed on clinical basis by the attending physician. * Breast imaging has a false negative rate of 15%. * The patient was notified by mail of the results of this examination. The mammogram was reviewed by a Radiologist and CAD. Fabrication Lead- GIBSON Cantu Physician- CAROLINA OATES MD Released Date Time- 07/15/08 1726 Maxime Araiza MD [facility] L Final Result * EK [...] in blood pressure. Clinical correlation is recommended. Fabrication Leadfabio Cantu Physician- JARED HOLLIDAY M.D. Released Date [...] in blood pressure. Clinical correlation is recommended. Fabrication Lead- DMITRIY Cantu Physician- JARED HOLLIDAY M.D. Released Date Time- 07/17/08908 Maxime Araiza MD [facility] Final Result * [...] each standard deviation decline in bone density. Fabrication Lead- GIBSON Cantu Physician- CAROLINA OATES MD Released Date Time- 07/11/082006 Procedure Note Carolina Oates III - 07/10/2009 BASE Study- Bone densitometry was performed on Holoavandeo equipment. No comparisons available. CLINICAL INDICATIONS- Patient [...] each standard deviation decline in bone density. Fabrication Lead- GIBSON Cantu Physician- CAROLINA OATES MD Released Date Time- 07/11/082006 Maxime Araiza MD [facility] Final Result * [...] studies. IMPRESSION- No radiographic evidence of malignancy (ORP-Ohyrqahz-4) RECOMMENDATION- Routine screening mammogram in 1 year. * The patient with a palpable abnormality, unexplained by breast imaging, should be managed on clinical basis by the attending physician. * Breast imaging has a false negative rate of 15%. * The patient was notified by mail of the results of this examination. The mammogram was reviewed by a Radiologist and CAD. Fabrication Lead- GIBSON Cantu Radiologist- PRASHANT MENDIOLA MD Released [...] studies. IMPRESSION- No radiographic evidence of malignancy (JTI-Ueflevcp-3) RECOMMENDATION- Routine screening mammogram in 1 year. * The patient with a palpable abnormality, unexplained by breast imaging, should be managed on clinical basis by the attending physician. * Breast imaging has a false negative rate of 15%. * The patient was notified by mail of the results of this examination. The mammogram was reviewed by a Radiologist and CAD. Fabrication Lead- GIBSON Cantu Radiologist- PRASHANT MENDIOLA MD Released Date Time- 10/06/05 1111 Roderick Huynh MD [facility] Final Result Visit Diagnoses Diagnosis Start [...] initial encounter 01/18/2019 Coronary artery disease involving [place] coronary artery of [place] heart without angina pectoris 01/25/2019 Mixed hyperlipidemia [...] Other constipation 04/05/2019 Coronary artery disease involving [place] coronary artery of [place] heart without angina pectoris 04/12/2019 Heart murmur [...] unspecified hyperlipidemia 08/19/2020 Coronary artery disease involving [place] coronary artery of [place] heart without angina pectoris 08/19/2020 Heart murmur [...] unspecified hyperlipidemia 01/19/2021 Coronary artery disease involving [place] coronary artery of [place] heart without angina pectoris 01/19/2021 Nonobstructive atherosclerosis of coronary artery 01/19/2021 Irritable bowel syndrome with constipation Irritable bowel syndrome 02/02/2021 Gastroesophageal reflux disease, unspecified whether esophagitis present 02/02/2021 Chronic cholecystitis 02/02/2021 Coronary artery disease involving [place] coronary artery of [place] heart without angina pectoris 03/05/2021 Heart murmur [...] intervertebral disc 07/27/2021 Coronary artery disease involving [place] coronary artery of [place] heart without angina pectoris 07/30/2021 Essential hypertension [...] PM EDT) Page Montgomery, RN Care Teams [employer] Sheets Supervisor Relationship Specialty Start Date End Date Na Ang MD [address] [phone] Consulting Physician Ophthalmology 07/10/20
--- OUTSIDE RECORDS SUMMARY | 2025-01-08 13:34 | XMS_ITS | Encounter Summary ---
Author Organization Healthcare Address [address] [address] Care Team Providers Care Analysis Engineer Name Role Phone Patrice rosajessica Kaufman APRN Primary Care Provider [phone] Stefan Lennon MD Unavailable [phone] Vikas Green MD Unavailable [phone] Encounter Details Date Type Department Care Team [...] 12/28/2024 7:00 AM TACHOT Tomas Abad RN 2. Non-Specific Active Suicidal Thoughts (Past 1 Month) No 12/28/2024 7:00 AM TACHOT Tomas Abad RN 6. Suicidal Behavior (Lifetime) No 12/28/2024 7:00 AM EDT Tomas Abad RN documented as of this encounter Plan of Treatment Upcoming Encounters Date Type Department Care Team (Late st Contact Info) Description 07/05/2025 11:40 AM EST Office Visit [facility] [address] [place] [address] Devin Monahan MD [address] [place] [phone] documented as of this encounter Visit Diagnoses Not on filedocumented in this encounter Additional Health Concerns Assessment Noted Time A fall risk assessment has been complete d for the patient 03/14/2023 2:59 PM EST A Body Mass Index follow-up plan has been documented for the patient 06/22/2024 2:21 PM EST documented as of this encounter Care Teams Analysis Engineer Relationship Specialty Start Date End Date Leroy Gordon APRN [address] [place] [address] PCP - General 10/07/22 Stefan Lennon MD [address] [address] Surgeon Neurosurgery 03/01/23 Vikas Green MD [address] [place] [address] Surgeon Neurosurgery 03/30/23 documented as of this encounter
--- OUTSIDE RECORDS SUMMARY | 2025-01-08 13:34 | XMS_ITS | Encounter Summary ---
Author Organization [place] [address] Care Team Providers Care Rose Grader Name Role Phone Janet Vogt MD Primary Care Provider Na Ang MD Unavailable [phone] Encounter Details Date Type Department Care Team (Late st Contact Info) Description 07/11/2019 Orders Only [facility] [address] [facility] [address] [place] [address] Gerardo Purcell MD [address] [place] [address] Social History Tobacco Use Types Packs/Day Years [...] Info) Description 01/16/2025 11:30 AM EDT Telemedicine [facility] [address] [place] [phone] Katharine Whitlock MD [address] [place] [address] 08/15/2025 1:40 PM EDT Office Visit SEP Ophthalmology [facility] [address] [place] [phone] Na Ang MD [address] [employer] [address] [address] documented as of this encounter [...] ORDERABLES Fi nal Result Performing Organization Address City/State/[facility] Co de Phone Number [facility] [address] [place], [place] [phone] documented in this encounter Visit Diagnoses Not on filedocumented in this encounter Additional Health Concerns Infection Onset Date Last Indicated Resolved Time COVID-19 Comment:[place] [id number]: import to resolve all COVID-19 infections added [...] documented as of this encounter Care Teams Rose Grader Relationship Specialty Start Date End Date Janet Vogt MD [address] [place] [address] PCP - General Family Medicine 12/04/18 03/09/23 Na Ang MD [address] [address] Consulting Physician Ophthalmology 07/10/20 documented as of this encounter
--- OUTSIDE RECORDS SUMMARY | 2025-01-08 13:34 | XMS_ITS | Encounter Summary ---
Author Organization [facility] [place] [address] Phone Care Team Providers Care Maintenance Fitter Name Role Phone Janet Vogt MD Primary Care Provider [phone] Encounter Details Date Type Department Care Team ([facility] st Contact Info) Description 07/22/2022 Discharge Call Center Patient Call Center [address] [place] [phone] Social History Tobacco Use Types Packs/Day Years [...] on filedocumented in this encounter Care Teams Maintenance Fitter Relationship Specialty Start Date End Date Janet Vogt MD PCP - General Family Medicine 07/19/22 documented as of this encounter
--- OUTSIDE RECORDS SUMMARY | 2025-01-08 13:34 | XMS_ITS | Referral Summary ---
Author Organization [facility] Address [address] [place] [address] Care Team Providers Care Vaccine Customer Representative Name Role Phone Janet Vogt MD Primary Care Provider [phone] Allergies Active Allergy Reactions Criticality Noted Date [...] Treatment Not on file Insurance Care Teams Vaccine Customer Representative Relationship Specialty Start Date End Date Janet Vogt MD PCP - General Family Medicine 07/19/22
--- OUTSIDE RECORDS SUMMARY | 2025-01-08 13:34 | XMS_ITS | Clinical Summary ---
Author Organization [facility] Address [address] [facility], [address] [place] [address] Care Team Providers Care Filterer Name Role Phone Elvira Velarde MD Primary [...] 1 capsule by mouth daily 8 Active [place]-3 Fatty Acids (FISH OIL OMEGA-3 PO) Take [...] bone density assessment. Study was performed on Shibumi 5. Bone Density: Region BMD T-score Z-score [...] Relevant to Health Maintenance Insurance Care Teams Filterer Relationship Specialty Start Date End Date Elvira Velarde MD PCP - General Family Medicine 09/01/16
--- OUTSIDE RECORDS SUMMARY | 2025-01-08 13:34 | XMS_ITS | Encounter Summary ---
Author Organization [place] [address] Care Team Providers Care Paper Cleaner Name Role Phone Janet Vogt MD Primary Care Provider Na Ang MD Unavailable [phone] Encounter Details Date Type Department Care Team (Late st Contact Info) Description 07/11/2019 Lab Requisition [facility] [place] [address] Gerardo Purcell MD [address] [place] [address] Personal history of colonic polyps; Other specified [...] Info) Description 01/16/2025 11:30 AM EDT Telemedicine [facility] [address] [place] [phone] Katharine Whitlock MD [address] [place] [phone] 08/15/2025 1:40 PM EDT Office Visit [facility] Ophthalmology [facility] [address] [place] [address] Na Ang MD [address] [employer] [facility] [address] [address] documented as of this encounter [...] PM EDT) CASE REPORT Surgical Pathology Case: [id number] Authorizing Provider: Gerardo Purcell MD Collected: 07/11/2019 1230 Ordering Location: [facility] Received: 07/11/2019 1830 Pathologist: Claudia Issa MD Specimen: Large Intestine, Rectum 07/12/2019 9:14 AM EDT [facility] [employer] [facility] CLINICAL HISTORY Personal history of colon polyps. 07/12/2019 9:14 AM EDT [facility] FINAL DIAGNOSIS Distal rectum, biopsy: - Colonic mucosa with mild acute inflammation and mild hyperplastic change. - Negative for granuloma, dysplasia, or malignancy. 07/12/2019 9:14 AM EDT [facility] at 0914 EDT COMMENT 07/12/2019 9:14 AM EDT [facility] GROSS DESCRIPTION Received in formalin labeled with the patient's name and distal rectal biopsy are 3 fragments of rico tissue ranging from 0.3 to 0.5 cm in greatest dimension. Entirely submitted in one cassette. /ZN 07/12/2019 9:14 AM EDT [facility] MICROSCOPIC DESCRIPTION Microscopic examination is performed and the findings corroborate the diagnosis. 07/12/2019 9:14 AM EDT [facility] SPECIAL STAINS 07/12/2019 9:14 AM EDT [facility] EMBEDDED IMAGES 07/12/2019 9:14 AM EDT [facility] Tissue RECTUM STRUCTURE / Unknown 07/11/2019 12:30 PM EDT 07/11/2019 6:30 PM EDT us Gerardo Rahman MD PATHOLOGY ORDERABLES Final Result [facility] [address] [place], [place] [phone] documented in this encounter Visit Diagnoses Diagnosis Personal history of colonic polyps Other specified diseases of intestine documented in this encounter Additional Health Concerns Infection Onset Date Last Indicated Resolved Time COVID-19 Comment:IL [id number]: import to resolve all COVID-19 infections added [...] documented as of this encounter Care Teams Paper Cleaner Relationship Specialty Start Date End Date Janet Vogt MD [address] [place] [address] PCP - General Family Medicine 12/04/18 03/09/23 Na Ang MD [address] [address] Consulting Physician Ophthalmology 07/10/20 documented as of this encounter
--- OUTSIDE RECORDS SUMMARY | 2025-01-08 13:34 | XMS_ITS | Clinical Summary ---
Author Organization [facility] Address [address] [place] [address] Care Team Providers Care Advisory Software Engineer Name Role Phone Janet Vogt MD Primary [...] Tdap) 06/07/2023 06/07/2013 COVID-19 Vaccine (2 - 2024- season) 2024 11/29/2020 Influenza Vaccine (#1) 2024 [...] 10:27 AM 07/20/2022 7:21 PM Care Teams Advisory Software Engineer Relationship Specialty Start Date End Date Janet Vogt MD PCP - General Family Medicine 07/19/22
--- OUTSIDE RECORDS SUMMARY | 2025-01-08 13:34 | XMS_ITS | Patient Health Record ---
Author Organization [facility] Address [address] [facility] [address] [place] [address] [place] [address] Care Team Providers Care Work Environment Safety Inspector Name Role Phone Vicky del toro Unavailable [phone] Reason For Referral No Information Medications Medication [...] Coverage End Date [employer] CLAIMS [address] [address] [place] [address] [id number] GILBERT RUSHING Self - patient is the insured
--- OUTSIDE RECORDS SUMMARY | 2025-01-08 13:34 | XMS_ITS | Encounter Summary ---
Author Organization [facility] Address [address] [place] [address] Care Team Providers Care Visiting Teacher Name Role Phone SachinangeLeroy APRN Primary Care Provider [phone] Stefan Lennon MD Unavailable [phone] Vikas Green MD Unavailable [phone] Encounter Details Date Type Department Care Team (Latest Contact Info) Description 01/01/2025 Travel Social History Tobacco Use Types Packs/Day [...] Description 07/05/2025 11:40 AM EST Office Visit [facility] [address] [place] [phone] Devin Monahan MD [address] [place] [phone] documented as of this encounter Visit Diagnoses Not on filedocumented in this encounter Additional Health Concerns Assessment Noted Time A fall risk assessment has been complete d for the patient 01/01/2025 9:53 AM EDT A Body Mass Index follow-up plan has been documented for the patient 01/01/2025 6:39 PM EDT documented as of this encounter Care Teams Visiting Teacher Relationship Specialty Start Date End Date Sachinange Diliperic Shae[address]ORACE [address] [place] [address] PCP - General 10/07/22 Stefan Lennon MD [address] [place] [address] Surgeon Neurosurgery 03/01/23 Vikas Green MD [address] [place] [address] Surgeon Neurosurgery 03/30/23 documented as of this encounter
--- OUTSIDE RECORDS SUMMARY | 2025-01-08 13:34 | XMS_ITS | Encounter Summary ---
Author Organization Healthcare Address [address] [place] [address] Care Team Providers Care Campus Chaplain Name Role Phone Leroy Gordon APRN Primary Care Provider [phone] Stefan Lennon MD Unavailable [phone] Vikas Green MD Unavailable [phone] Encounter Details Date Type Department Care Team (Late st Contact Info) Description 01/02/2025 Telephone [facility] [address], [address] [place] [address] Ashely Guy APRN [address] [place] [address] Social History Tobacco Use Types [...] encounter Miscellaneous Notes * Telephone Encounter - Ashely Guy APRN - 01/07/2025 11:27 AM EDT Spoke to patient and discussed her questions. Would like to move forward with surgery. * Telephone Encounter - Ashely Guy APRN - 01/07/2025 11:15 AM EDT Left voicemail for return call please message me if she returns call * Telephone Encounter - Holly Amaral - 01/07/2025 10:39 AM EDT Patient Phone Message Reason for Call: Pt was calling back to speak with Ashely about having surgery. She has a few questions about the surgery process. Please advise Best contact number and optimal time of day to reach caller: [phone]/pt Note: Please do not reply to this message. Follow-up communication and further actions as a result of this message need to be communicated with the patient directly, if the patient is not active onMyChart. If the patient is active on MyChart, they will receive notification of the communication/outcome via [employer]. * Telephone Encounter - Ashely Guy APRN - 01/03/2025 11:40 AM EDT Spoke to patient, She is a candidate for an L2-L5 laminectomy after review with Dr. Green. She isgoing to consider this and contact us if she would like to pursue it. * Telephone Encounter - Ashely Guy APRN - 01/02/2025 5:45 PM EDT Tried to contact patient. She is a candidate for an L2-L5 laminectomy after review with Dr. Grene. Left voicemail and will try to contact her tomorrow documented in this encounter Plan of Treatment Upcoming Encounters Date Type Department Care Team (Late st Contact Info) Description 07/05/2025 11:40 AM EST Office Visit [facility] [address] [place] [address] Devin Monahan MD [address] [place] [address] documented as of this encounter Visit Diagnoses Not on filedocumented in this encounter Additional Health Concerns Assessment Noted Time A fall risk assessment has been complete d for the patient 01/01/2025 9:53 AM EDT A Body Mass Index follow-up plan has been documented for the patient 01/01/2025 6:39 PM EDT documented as of this encounter Care Teams Campus Chaplain Relationship Specialty Start Date End Date Leroy Gordon APRN [address] [place] [address] PCP - General 10/07/22 Stefan Lennon MD [address] [place] [address] Surgeon Neurosurgery 03/01/23 Vikas Green MD [address] [place] [address] Surgeon Neurosurgery 03/30/23 documented as of this encounter
--- OUTSIDE RECORDS SUMMARY | 2025-01-08 13:34 | XMS_ITS | Encounter Summary ---
Author Organization [facility] Address [address], [address] [place] [address] Care Team Providers Care Secure Software Assessor Name Role Phone Elvira Velarde MD Primary Care Provider Jossue mejía Reason for Visit * Reason Comments Medication Refill Encounter Details Date Type Department Care Team (Late st Contact Info) Description 01/28/2015 Refill [facility] Zach [address] [place] [address] [address] [place] [address] Heydi Stoll PA-C [address] [place] [address] [address] [place] [address] Medication Refill Social History Tobacco Use Types [...] on filedocumented in this encounter Care Teams Secure Software Assessor Relationship Specialty Start Date End Date Elvira Velarde MD PCP - General Family Medicine 09/01/16 documented as of this encounter
--- OUTSIDE RECORDS SUMMARY | 2025-01-08 13:34 | XMS_ITS | Encounter Summary ---
Author Organization [facility] Address [address] [facility] [facility], [address] [place] [address] Care Team Providers Care Marshmallow Maker Name Role Phone Elvira Velarde MD Primary Care Provider Jossue mejía Reason for Visit * Reason Comments Medication Refill Encounter Details Date Type Department Care Team (Late st Contact Info) Description 10/18/2017 Refill [facility] Endocrinology & Diabetes [address] [facility] [address] [place] [address] Sid Olmedo MD [address] [place], [place] [id number] Medication Refill Social History Tobacco Use Types [...] on filedocumented in this encounter Care Teams Marshmallow Maker Relationship Specialty Start Date End Date Elvira Velarde MD PCP - General Family Medicine 09/01/16 documented as of this encounter
--- OUTSIDE RECORDS SUMMARY | 2025-01-08 13:34 | XMS_ITS | Encounter Summary ---
Author Organization [facility] Address [address] [place] [address] Care Team Providers Care Painter Ordnance Name Role Phone Nonstaff, Referring Primary Care Provider [phone]- [phone] Prashant Barnes MD Unavailable [phone] Encounter Details Date Type Department Care Team (Late st Contact Info) Description 12/04/2015 Clinical Update [facility] - Urology, WySiddharth Chatham [address] [place] [address] [place] [phone] Hyacinth Rios NP [address] [place] [address] [place] [address] Social History Tobacco Use Types Packs/Day Years [...] on filedocumented in this encounter Care Teams Painter Ordnance Relationship Specialty [place] [address] [place] [address] PCP - General Family Medicine 03/20/13 Prashant Barnes MD [address] [facility] [address] Urology 05/09/22 documented as of this encounter
--- OUTSIDE RECORDS SUMMARY | 2025-01-08 13:34 | XMS_ITS | Encounter Summary ---
Author Organization [place] [address] Care Team Providers Care Patent Attorney Name Role Phone Na Ang MD Unavailable [phone] Reason for Visit * Reason Onset Date Comments Results 12/12/2024 Schedule Appointment 12/12/2024 Encounter Details Date Type Department Care Team (Latest Contact Info) Description 12/12/2024 Results Follow-Up [facility] Diabetes [place] [address] [facility] [address] [place] [phone] Katharine Whitlock MD [address] [facility] [address] [place] [phone] THYROID, C-REACTIVE PROTEIN, COMPREHENSIVE METABOLIC PANEL, [...] Date Recorded PHQ-2 Total Score 0 07/28/2022 [facility] - Occupational Stress Questionnaire [...] Results Component Value Date GLUCHALFHOUR 136 12/14/2024 [id number] 89 12/14/2024 GLUCONEHALFH 87 12/14/2024 [id number] 84 12/14/2024 GLUCTWOFIVEH 80 12/14/2024 [id number] 57 12/14/2024 Nursing will contact you with [...] Patient notified of results and recommendations via [employer] message. documented in this encounter Plan of Treatment Upcoming Encounters Date Type Department Care Team (Late st Contact Info) Description 01/16/2025 11:30 AM EDT Telemedicine [facility] [address] [facility] [address] [place] [phone] Katharine Whitlock MD [address] [employer] [facility] [address] [place] [phone] 08/15/2025 1:40 PM EDT Office Visit [facility] [address] [employer] [address] [place] [phone] Na Ang MD [address] [facility] [address] [place] [phone] documented as of this encounter Goals Goal Patient Goal Type Associated Problems Recent Progress Patient-Stated? Author Blood Pressure < 140/90 Blood Pressure 142/74(2024 12:23 PM EDT) No Yara Anders CCMA Maintain a healthy diet, exercise regularly and maintain an ideal body weight General On track( 1:52 PM EDT) Yara Huddlseton CCMA Take rest breaks to enable body [...] documented as of this encounter Care Teams Patent Attorney Relationship Specialty Start Date End Date Na Ang MD [address] [address] Consulting Physician Ophthalmology 07/10/20 documented as of this encounter
--- OUTSIDE RECORDS SUMMARY | 2025-01-08 13:34 | XMS_ITS | Clinical Summary ---
Author Organization [facility] Address [address] [place] [address] Care Team Providers Care Bander And Cellophaner Helper Machine Name Role Phone Nonstaff, Referring MD Primary Care Provider [phone]- [phone] Prashant Barnes MD Unavailable [phone] Allergies Active Allergy Reactions Criticality Noted Date [...] Active fluticasone (FLONASE) 50 mcg/actuation nasal spray Savoy 1 Savoy into nose daily. Active omeg3/dha/epa/f antonia oil/L.casei [...] 1 Cancer Brother 2 Heart Problems Father DC Hypertension Father Stroke Mother Cancer Sister Hypertension [...] Vaccination (Every 10 Years) 06/07/2023 02/0 09/2013 Advance Care Planning 05/02/2024 Depression Screening 05/02/2024 COVID-19 Vaccine ( season) 2024 Influenza Vaccination (#1) 2024 01/24/2013 Osteoporosis Screening 01/17/2025 01/18/2020 Influenza Vaccination (Yearly) Discontinued 01/24/2013 Insurance Advance Directives For more information, please contact: [phone] * No Code Status (Latest Code Status on File) Date Activated Date Inactivated Comments 07/03/2015 11:28 AM [facility] * Full Code Date Activated Date Inactivated Comments 02/08/2008 2:38 AM 02/08/2008 4:55 PM Care Teams Bander And Cellophaner Helper Machine Relationship Specialty Start Date End Date Nonstaff, MD Deshawn [address] [place], [place] [phone] (Work) PCP - General Family Medicine 03/20/13 Prashant Barnes MD [address] [facility] [place] [address] Urology 05/09/22
--- OUTSIDE RECORDS SUMMARY | 2025-01-08 13:35 | XMS_ITS | Encounter Summary ---
Author Organization Healthcare Address [address] [place] [address] Care Team Providers Care Plant Operations Vice President Name Role Phone SachinDilip cassidyeric Kaufman APRN Primary Care Provider [phone]- [phone] Stefan Lennon MD Unavailable [phone] Vikas Green MD Unavailable [phone] Encounter Details Date Type Department Care Team [...] Description 07/05/2025 11:40 AM EST Office Visit [facility] [address] [place] [address] Devin Monahan MD [address] [place] [address] documented as of this encounter Visit Diagnoses Not on filedocumented in this encounter Additional Health Concerns Assessment Noted Time A fall risk assessment has been complete d for the patient 03/14/2023 2:59 PM EST A Body Mass Index follow-up plan has been documented for the patient 06/22/2024 2:21 PM EST documented as of this encounter Care Teams Plant Operations Vice President Relationship Specialty Start Date End Date Leroy Gordon APRN [address] [place] [address] PCP - General 10/07/22 Stefan Lennon MD [address] [facility] [place] [address] Surgeon Neurosurgery 03/01/23 Vikas Green MD [address] [place] [address] Surgeon Neurosurgery 03/30/23 documented as of this encounter
--- OUTSIDE RECORDS SUMMARY | 2025-01-08 13:35 | XMS_ITS | Encounter Summary ---
Author Organization Healthcare Address [address] [place] [address] Care Team Providers Care Director Ehs Name Role Phone Leroy Gordon APRN Primary Care Provider [phone]- [phone] Stefan Lennon MD Unavailable [phone] Vikas Green MD Unavailable [phone] Encounter Details Date Type Department Care Team (Late st Contact Info) Description 12/27/2024 Telephone [place] [facility] [address] [place] [address] Vikas Green MD [address] [place] [address] Social History Tobacco Use Types [...] optimal time of day to reach caller: [phone] Note: Please do not reply to this message. Follow-up communication and further actions as a result of this message need to be communicated with the patient directly, if the patient is not active onMyChart. If the patient is active on MyChart, they will receive notification of the communication/outcome via MyChart. documented in this encounter Plan of Treatment Upcoming Encounters Date Type Department Care Team (Late st Contact Info) Description 07/05/2025 11:40 AM EST Office Visit [facility] [address] [place] [address] Devin Monahan MD [address] [place] [address] documented as of this encounter Visit Diagnoses Not on filedocumented in this encounter Additional Health Concerns Assessment Noted Time A fall risk assessment has been complete d for the patient 03/14/2023 2:59 PM EST A Body Mass Index follow-up plan has been documented for the patient 06/22/2024 2:21 PM EST documented as of this encounter Care Teams Director Ehs Relationship Specialty Start Date End Date Leroy Gordon APRN [address] [place] [address] PCP - General 10/07/22 Stefan Lennon MD [address] [address] Surgeon Neurosurgery 03/01/23 Vikas Green MD [address] [address] Surgeon Neurosurgery 03/30/23 documented as of this encounter
--- OUTSIDE RECORDS SUMMARY | 2025-01-08 13:35 | XMS_ITS | Encounter Summary ---
Author Organization [facility] Address [address] [place] [address] Care Team Providers Care Camouflage Specialist Name Role Phone Leroy Gordon PELLET PRESS OPERATOR Primary Care Provider [phone] Stefan Lennon MD Unavailable [phone] Vikas Green MD Unavailable [phone] Encounter Details Date Type Department Care Team (Late st Contact Info) Description 12/23/2022 Orders Only External Location [address] [place] [address] Leroy Gordon, PELLET PRESS OPERATOR [address] [place] [address] Social History Tobacco Use Types [...] Description 07/05/2025 11:40 AM EST Office Visit [facility] [address] [place] [address] Devin Monahan MD [address] [place] [address] documented as of this encounter Procedures Procedure Name Priority Date/Time Associated Diagnosis Comments MR OUTSIDE IMAGES 12/23/2022 11:01 AM EDT documented in this encounter Results * MR transfer of outside films (12/23/2022 11:01 AM EDT) Anatomical Region Laterality Modality Magnetic Resonan ce 12/23/2022 11:0 1 AM EDT Leroy Gordon PELLET PRESS OPERATOR IMG MRI PROCEDURES Final R esult documented in this encounter Visit Diagnoses Not on filedocumented in this encounter Additional Health Concerns Assessment Noted Time A fall risk assessment has been complete d for the patient 12/02/2022 2:04 PM EDT A Body Mass Index follow-up plan has been documented for the patient 12/02/2022 2:35 PM EDT documented as of this encounter Care Teams Camouflage Specialist Relationship Specialty Start Date End Date Leroy Gordon APRN [address] [place] [address] PCP - General 10/07/22 Stefan Lennon MD [address] [place] [phone] Surgeon Neurosurgery 03/01/23 Vikas Green MD [address] [place] [address] Surgeon Neurosurgery 03/30/23 documented as of this encounter
--- OUTSIDE RECORDS SUMMARY | 2025-01-08 13:35 | XMS_ITS | Clinical Summary ---
Author Organization [facility] Address [address] [place] [address] Care Team Providers Care Dentures Lab Technician Name Role Phone Leroy Gordon APRN Primary Care Provider [phone] Stefan Lennon MD Unavailable [phone] Vikas Green MD Unavailable [phone] Allergies Active Allergy Reactions Criticality Noted [...] her feel weak TREMORS Oxycodone-Acetaminophen Nausea 12/11/2020 Prednisone Other - please document in the comment field Low 01/01/2025 Sulfa Drugs Unknown - Patient states they [...] inhaler 3 Active amLODIPine (Norvasc) 10 MG tabletIndication s:Primary hypertension,Ess ential hypertension Take 1 tablet (10 mg) by mouth daily. 90 tablet 3 5 Active candesartan (Atacand) 16 MG tabletIndication s:Primary hypertension,Ess ential hypertension Take 1 tablet (16 mg) by mouth every evening. 90 tablet 3 5 Active carvedilol (Coreg) 12.5 MG tabletIndication s:Primary hypertension,Ess ential hypertension Take 1 tablet (12.5 mg) by mouth 2 (two) times a day with meals. 180 tablet 3 5 Active methocarbamol (Robaxin) 500 MG tablet Take 1 tablet by mouth 4 times a day as needed for muscle spasms for up to 10 days. 40 tablet 5 Active Additional Information Patient not taking.Reported on 01/01/2025 dicyclomine (Bentyl) 10 MG capsule Take 1 capsule as needed by oral route for 30 days. Active inclisiran sodium (Leqvio) 284 MG/1.5ML solution prefilled syringe injection Active ondansetron (Zofran) 4 MG tablet 5 Active oxybutynin XL (Ditropan-XL) 10 MG 24 hr tablet 5 Active Active Problems Problem Noted Date Diagnosed Date Periumbilical abdominal pain 06/22/2024 Gastroesophageal reflux disease 06/22/2024 Primary hypertension 06/22/2024 Encounters Date Type Department Care Team Description 01/02/2025 Telephone [facility] [address], [address] [place] [phone] Ashely Guy, HORACE 01/01/2025 10:00 AM EDT Office Visit [facility] [address], [address] [place] [phone] Ashely Guy, PAY AGENT Spinal stenosis of lumbar region with neurogenic claudication (Primary Dx); Chronic low back pain, unspecified back pain laterality, unspecified whether sciatica present; Degeneration of intervertebral disc of lumbar region with discogenic back pain and lower extremity pain; Neural foraminal stenosis of lumbar spine 01/01/2025 Travel 12/28/2024 Travel 12/27/2024 9:43 PM EDT - 12/28/2024 1:27 PM EDT Hospital Encounter [facility] [address] [place] [address] Maxime Gooden MD Numbness and tingling of both legs (Primary Dx); Lumbar back pain Discharge Disposition: Home or Self Care 12/27/2024 Travel 12/27/2024 Telephone [facility] [address], [address] [place] [phone] Vikas Green MD 12/26/2024 Telephone [facility] [address], [address] [place] [phone] Vikas Green MD 11/08/2024 Telephone [facility] [address] [facility], [address] [place] [address] Corrina Jarvis, PharmD from Last [...] Pulse 66 01/01/2025 9:53 AM EDT Temperature 36.4 C (97.5 F) 12/28/2024 10:13 AM EDT Respiratory Rate 18 12/28/2024 10:13 AM EDT Oxygen Saturation 98% 01/01/2025 9:53 AM EDT Inhaled Oxygen Concentration - - Weight 69.6 kg (153 lb 7 oz) 01/01/2025 9:53 AM EDT Height 165.1 cm (5' 5 ) 12/27/2024 10:00 PM EDT Body Mass Index 25.53 12/27/2024 10:00 PM EDT Plan of Treatment Upcoming Encounters Date Type Department Care Team (Late st Contact Info) Description 07/05/2025 11:40 AM EST Office Visit [facility] [address] [place] [phone] Devin Monahan MD [address] [place] [phone] Health Maintenance Due Date Last Done Comments [facility]-Depression Screening 1944 [facility]-/Child/Adol SDOH Screenings 1944 [facility]- SDOH Screenings 1962 [facility]-Adult SDOH Screenings 1962 [facility]-RSV Vaccine: 60+ Years or (1 - 1-dose 75+ series) 10/12/2019 [facility]-Medicare Annual Wellness (AWV) 01/19/2020 01/18/2019 [id number] Vaccine (2 - Moderna risk series) 12/27/2020 11/29/2020 [facility]-Bone Density Scan 01/17/2021 01/18/2020 , 01/18/2020, 10/07/2017 [facility]-DTaP,Tdap,and Td Vaccines (2 - Td or Tdap) 06/07/2023 06/07/2013 [facility]-Influenza Vaccine (#1) 12/31/202401/11, 03/22/2023, 02/16/2022, Additional history exists [facility]-Pneumococcal Vaccine: 50+ Years Completed 01/18/2019, 09/30/2009 [facility]-Zoster Vaccines Completed 09/22/2023, [facility]-Obesity Intervention Completed 025, 06/22/2024, 03/30/2023, Additional history exists HPV Vaccines Aged Out [...] Yessenia Barbosa MD on 12/28/2024 10:03 AM us Maxime Gooden MD IMG MRI PROCEDURES Cindy l Result * Urine Kapoor Panel (12/27/2024 11:02 PM EDT) Extra Reflex urine culture not indicated 12/28/2024 1:04 AM EDT [facility] Urine Urine specimen obtained by clean catch procedure / Unknown Non-blood Collection / Unknown 12/27/2024 11:02 PM EDT 12/27/2024 11:28 PM EDT us Maxime Mae MD LAB URINE ORDERABLES Final Result [facility] [address] [place] [address] * Urinalysis Microscopic Examination (12/27/2024 11:02 PM EDT) Urine Urine specimen obtained by clean catch procedure / Unknown Non-blood Collection / Unknown 12/27/2024 11:02 PM EDT 12/27/2024 11:16 PM EDT us Maxime Mae MD LAB URINE ORDERABLES Final Result [facility] [address] [place] [address] * (ABNORMAL) Urinalysis with reflex microscopic (Culture NOT Included) (12/27/2024 11:02 PM EDT) Color, Urine Yellow LAB URINALYSIS - AUTOMATED METHOD 12/27/2024 11:53 PM EDT [facility] Clarity, Urine Clear LAB URINALYSIS - AUTOMATED METHOD 12/27/2024 11:53 PM EDT [facility] Spec [place], Urine 1.021 1.005 - 1.030 LAB URINALYSIS - AUTOMATED METHOD 12/27/2024 11:53 PM EDT [facility] pH, Urine 6.5 5.0 - 8.0 LAB URINALYSIS - AUTOMATED METHOD 12/27/2024 11:53 PM EDT [facility] Protein, Urine Negative Negative mg/dL LAB URINALYSIS - AUTOMATED METHOD 12/27/2024 11:53 PM EDT [facility] Glucose, Urine Negative Negative mg/dL LAB URINALYSIS - AUTOMATED METHOD 12/27/2024 11:53 PM EDT [facility] Ketones, Urine Negative Negative mg/dL LAB URINALYSIS - AUTOMATED METHOD 12/27/2024 11:53 PM EDT [facility] Blood, Urine Small(A) Negative LAB URINALYSIS - AUTOMATED METHOD 12/27/2024 11:53 PM EDT [facility] Bilirubin, Urine Negative Negative LAB URINALYSIS - AUTOMATED METHOD 12/27/2024 11:53 PM EDT [facility] Urobilinogen, Urine 0.2 0.2 to 1.0 mg/dL LAB URINALYSIS - AUTOMATED METHOD 12/27/2024 11:53 PM EDT [facility] Leukocytes, Urine Negative Negative LAB URINALYSIS - AUTOMATED METHOD 12/27/2024 11:53 PM EDT [facility] Nitrite, Urine Negative Negative LAB URINALYSIS - AUTOMATED METHOD 12/27/2024 11:53 PM EDT [facility] RBC, Urine <1 0 to 3 /HPF LAB URINALYSIS - AUTOMATED METHOD 12/27/2024 11:53 PM EDT [facility] Comment:This result was prev iously suppressed from the chart. WBC, Urine 0 - 5 0 to 5 /HPF LAB URINALYSIS - AUTOMATED METHOD 12/27/2024 11:53 PM EDT [facility] Comment:This result was prev iously suppressed from the chart. Squamous Epithelial Cells 0 - 2 0 to 5 /HPF LAB URINALYSIS - AUTOMATED METHOD 12/27/2024 11:53 PM EDT [facility] Comment:This result was prev iously suppressed from the chart. Hyaline Casts 0 - 2 0 to 5 /LPF LAB URINALYSIS - AUTOMATED METHOD 12/27/2024 11:53 PM EDT [facility] Comment:This result was prev iously suppressed from the chart. Bacteria, Urine Negative Negative LAB URINALYSIS - AUTOMATED METHOD 12/27/2024 11:53 PM EDT [facility] Comment:This result was prev iously suppressed from the chart. Urine Urine specimen obtained by clean catch procedure / Unknown Non-blood Collection / Unknown 12/27/2024 11:02 PM EDT 12/27/2024 11:16 PM EDT us Maxime Mae MD LAB URINE ORDERABLES Final Result [facility] [address] [place] [address] * CT Angio Abdomen Pelvis (12/27/2024 10:18 [...] Total DLP (Dose-Length Product): 2981.63 mGy.cm (accession [id number]), 2981.63 mGy.cm (accession [id number]), 2981.63 mGy.cm (accession [id number]). Please note: The reported value represents the [...] Total DLP (Dose-Length Product): 2981.63 mGy.cm (accession [id number]),2981.63 mGy.cm (accession [id number]), 2981.63 mGy.cm (accession [id number]).Please note: The reported value represents the total [...] Maddy Ryder MD on 12/27/2024 11:39 PM Maxiem Mae MD IMG CT PROCEDURES Final Re [...] Total DLP (Dose-Length Product): 2981.63 mGy.cm (accession [id number]), 2981.63 mGy.cm (accession [id number]), 2981.63 mGy.cm (accession [id number]). Please note: The reported value represents the [...] Total DLP (Dose-Length Product): 2981.63 mGy.cm (accession [id number]),2981.63 mGy.cm (accession [id number]), 2981.63 mGy.cm (accession [id number]).Please note: The reported value represents the total [...] Total DLP (Dose-Length Product): 2981.63 mGy.cm (accession [id number]), 2981.63 mGy.cm (accession [id number]), 2981.63 mGy.cm (accession [id number]). Please note: The reported value represents the [...] Total DLP (Dose-Length Product): 2981.63 mGy.cm (accession [id number]),2981.63 mGy.cm (accession [id number]), 2981.63 mGy.cm (accession [id number]).Please note: The reported value represents the total [...] LAB HEMATOLOGY METHOD 12/27/2024 9:42 PM EDT [facility] RBC Count 4.23 3.90 - 5.20 10*6/uL LAB HEMATOLOGY METHOD 12/27/2024 9:42 PM EDT [facility] HGB 12.7 11.2 - 15.7 g/dL LAB HEMATOLOGY METHOD 12/27/2024 9:42 PM EDT [facility] HCT 36.9 34.0 - 45.0 % LAB HEMATOLOGY METHOD 12/27/2024 9:42 PM EDT [facility] Platelet Count 313 155 - 369 10*3/uL LAB HEMATOLOGY METHOD 12/27/2024 9:42 PM EDT [facility] MCV 87 79 - 98 fL LAB HEMATOLOGY METHOD 12/27/2024 9:42 PM EDT [facility] MCH 30.0 26.0 - 32.0 pg LAB HEMATOLOGY METHOD 12/27/2024 9:42 PM EDT [facility] MCHC 34.4 30.7 - 35.5 g/dL LAB HEMATOLOGY METHOD 12/27/2024 9:42 PM EDT [facility] RDW 13.4 11.5 - 14.5 % LAB HEMATOLOGY METHOD 12/27/2024 9:42 PM EDT [facility] MPV 9.4 8.8 - 12.5 fL LAB HEMATOLOGY METHOD 12/27/2024 9:42 PM EDT [facility] nRBC 0.0 <=0.0 per 100 WBCs LAB HEMATOLOGY METHOD 12/27/2024 9:42 PM EDT [facility] Differential Type Automated LAB HEMATOLOGY METHOD 12/27/2024 9:42 PM EDT [facility] Neutrophils % 49 % LAB HEMATOLOGY METHOD 12/27/2024 9:42 PM EDT [facility] Lymphocytes % 36 % LAB HEMATOLOGY METHOD 12/27/2024 9:42 PM EDT [facility] Monocytes % 10 % LAB HEMATOLOGY METHOD 12/27/2024 9:42 PM EDT [facility] Eosinophils % 4 % LAB HEMATOLOGY METHOD 12/27/2024 9:42 PM EDT [facility] Basophils % 1 % LAB HEMATOLOGY METHOD 12/27/2024 9:42 PM EDT [facility] Immature Granulocytes % 0 % LAB HEMATOLOGY METHOD 12/27/2024 9:42 PM EDT [facility] Neutrophils Absolute 2.65 1.60 - 6.10 10*3/uL LAB HEMATOLOGY METHOD 12/27/2024 9:42 PM EDT [facility] Lymphocytes Absolute 1.94 1.20 - 3.90 10*3/uL LAB HEMATOLOGY METHOD 12/27/2024 9:42 PM EDT [facility] Monocytes Absolute 0.51 0.30 - 0.90 10*3/uL LAB HEMATOLOGY METHOD 12/27/2024 9:42 PM EDT [facility] Eosinophils Absolute 0.21 0.00 - 0.50 10*3/uL LAB HEMATOLOGY METHOD 12/27/2024 9:42 PM EDT [facility] Basophils Absolute 0.06 0.00 - 0.10 10*3/uL LAB HEMATOLOGY METHOD 12/27/2024 9:42 PM EDT [facility] Immature Granulocytes Absolute 0.02 0.00 - 0.06 10*3/uL LAB HEMATOLOGY METHOD 12/27/2024 9:42 PM EDT [facility] Blood Venous blood specimen / Unknown Venipuncture / Unknown 12/27/2024 9:37 PM EDT 12/27/2024 9:40 PM EDT Narrative [facility] - 12/27/2024 9:42 PM EDT Therapeutic decision making should be based on absolute values, rather than percentages. us Maxime Mae MD LAB BLOOD ORDERABLES Final Result [facility] [address] [place] [address] * Phosphorus (12/27/2024 9:37 PM EDT) Phosphorus, Plasma 3.4 2.5 - 4.5 mg/dL 12/27/2024 10:03 PM EDT [facility] Blood Venous blood specimen / Unknown Venipuncture / Unknown 12/27/2024 9:37 PM EDT 12/27/2024 9:40 PM EDT aMxime Mae MD LAB BLOOD ORDERABLES Final Result Performing Organization Address City/[facility]/ZIP Co de Phone Number [facility] [address] [place] [address] * Magnesium (12/27/2024 9:37 PM EDT) Magnesium, Plasma 2.1 1.9 - 2.4 mg/dL 12/27/2024 10:03 PM EDT [facility] Blood Venous blood specimen / Unknown Venipuncture / Unknown 12/27/2024 9:37 PM EDT 12/27/2024 9:40 PM EDT Maxime Mae MD LAB BLOOD ORDERABLES Final Result Performing Organization Address City/[facility]/ZIP Co de Phone Number [facility] [address] [place] [address] * BMP (12/27/2024 9:37 PM EDT) Glucose, Plasma 97 74 - 99 mg/dL 12/27/2024 10:03 PM EDT [facility] BUN, Plasma 21 8 - 23 mg/dL 12/27/2024 10:03 PM EDT [facility] Creatinine, Plasma 0.97 0.60 - 1.10 mg/dL 12/27/2024 10:03 PM EDT [facility] BUN/Creatinine Ratio 22 12/27/2024 10:03 PM EDT [facility] Sodium, Plasma 139 136 - 145 mmol/L 12/27/2024 10:03 PM EDT [facility] Potassium, Plasma 3.8 3.6 - 4.9 mmol/L 12/27/2024 10:03 PM EDT [facility] Chloride, Plasma 105 97 - 107 mmol/L 12/27/2024 10:03 PM EDT [facility] CO2, Plasma 23 22 - 29 mmol/L 12/27/2024 10:03 PM EDT [facility] Anion Gap 11 6 - 16 mmol/L 12/27/2024 10:03 PM EDT [facility] Total Calcium, Plasma 9.8 8.9 - 10.2 mg/dL 12/27/2024 10:03 PM EDT [facility] eGFRcr 59.2 mL/min/1.7 3m*2 12/27/2024 10:03 PM EDT [facility] Comment:Reported eGFRcr in m L/min/1.73m2 is based the CKD-EPI 2020 equation that does not use a race coefficient. Blood Venous blood specimen / Unknown Venipuncture / Unknown 12/27/2024 9:37 PM EDT 12/27/2024 9:40 PM EDT us Maxime Mae MD LAB BLOOD ORDERABLES Final Result [facility] [address] [place] [address] from Last 3 Months Insurance Care Teams Dentures Lab Technician Relationship Specialty Start Date End Date Leroy Gordon APRN [address] [place] [address] PCP - General 10/07/22 Stefan Lennon MD [address] [place] [phone] Surgeon Neurosurgery 03/01/23 Vikas Green MD [address] [facility] [address] [place] [phone] Surgeon Neurosurgery 03/30/23
--- OUTSIDE RECORDS SUMMARY | 2025-01-08 13:35 | XMS_ITS | Encounter Summary ---
Author Organization Healthcare Address [address] [place] [address] Care Team Providers Care Bar Host Name Role Phone Leroy Gordon APRN Primary Care Provider [phone] Stefan Lennon MD Unavailable [phone] Vikas Green MD Unavailable [phone] Encounter Details Date Type Department Care Team (Late st Contact Info) Description 12/26/2024 [facility]phone [facility] [address], [address] [place] [address] Vikas Green MD [address] [place] [address] Social History Tobacco Use Types [...] updated radiology testing. * Telephone Encounter - Barbara Pimentel - 12/26/2024 11:10 AM EDT Patient Phone Message Reason for Call: Patient has been in pain management for over a year. She is having continued issues and pain down legs Please give a clinical call back to discuss Best contact number and optimal time of day to reach caller: [phone] patient Note: Please do not reply to this message. Follow-up communication and further actions as a result of this message need to be communicated with the patient directly, if the patient is not active onMyChart. If the patient is active on MyChart, they will receive notification of the communication/outcome via Perficient. documented in this encounter Plan of Treatment Upcoming Encounters Date Type Department Care Team (Late st Contact Info) Description 07/05/2025 11:40 AM EST Office Visit [facility] [address] [place] [phone] Devin Monahan MD [address] [place] [phone] documented as of this encounter Visit Diagnoses Not on filedocumented in this encounter Additional Health Concerns Assessment Noted Time A fall risk assessment has been complete d for the patient 03/14/2023 2:59 PM EST A Body Mass Index follow-up plan has been documented for the patient 06/22/2024 2:21 PM EST documented as of this encounter Care Teams Bar Host Relationship Specialty Start Date End Date Leroy Gordon APRN [address] [facility] [place] [address] PCP - General 10/07/22 Stefan Lennon MD [address] [place] [address] Surgeon Neurosurgery 03/01/23 Vikas Green MD [address] [place] [phone] Surgeon Neurosurgery 03/30/23 documented as of this encounter
--- OUTSIDE RECORDS SUMMARY | 2025-01-08 13:35 | XMS_ITS | Encounter Summary ---
Author Organization [place] [address] Care Team Providers Care Forest Technology Professor Name Role Phone Na Ang MD Unavailable [phone] Encounter Details Date Type Department Care Team (Late st Contact Info) Description 12/07/2024 [facility] [place] [address] [facility] [address] [place] [phone] Katharine Whitlock MD [address] [facility] [address] [place] [phone] [employer]- COMPUNET, T3 FREE, VITAMIN B6 (PYRIDOXINE) [...] Date Recorded PHQ-2 Total Score 0 07/28/2022 [place] [facility] - Occupational Stress [...] Chatman RN - 12/10/2024 3:49 PM EDT [employer] message sent to patient in regards to HTT testing. documented in this encounter Plan of Treatment Upcoming Encounters Date Type Department Care Team (Late st Contact Info) Description 01/16/2025 11:30 AM EDT Telemedicine [facility] [place] [address] [employer] [address] [place] [address] Katharine Whitlock MD [address] [place] [address] 08/15/2025 1:40 PM EDT Office Visit [facility] [address] [employer] [address] [place] [address] Na Ang MD [address] [address] documented as of this encounter Goals Goal [...] documented as of this encounter Care Teams Forest Technology Professor Relationship Specialty Start Date End Date Na Ang MD [address] [phone] Consulting Physician Ophthalmology 07/10/20 documented as of this encounter
== END 2025-01-08 23:59 | disposition home or self-care (01) ==
LOC: RAD 13:29
PROVIDERS: Visit Provider Physician Assistant
DX: M19.072 Primary osteoarthritis, left ankle and foot (principal)
CPT/HCPCS: 73610

== ENCOUNTER 2025-01-18 15:23 | Outpatient (CLI) | payer MEDICARE, SELFPAY ==
--- OUTSIDE RECORDS SUMMARY | 2016-09-14 14:04 | XMS_ITS | Encounter Summary ---
Author Organization [facility] [place] [address] Care Team Providers Care Loans Officer Name Role Phone Elvira Velarde MD Primary Care Provider [phone] Encounter Details Date Type Department Care Team (Late st Contact Info) Description 09/14/2016 2:04 PM EDT Hospital Encounter [facility] Referral Lab [address] [place] [phone] Oumar Alves MD [address] [place] [phone] Low back pain Social History Tobacco Use [...] Date Recorded PHQ-2 Total Score 0 07/28/2022 [facility] [place] of Occupat ional [facility] - Occupational Stress Questionnaire Answer Date [...] 2:50 PM EDT Mariama Hackett RN * [place] Suicide Severity Rating Scale (Q shift for [...] Care Team (Late st Contact Info) Description 02/06/2025 2:30 PM EDT Office Visit [facility] 1500 [facility] [address] [place] [phone] Liliya Guadarrama, RD,LD [address] [place] [address] 05/07/2025 12:40 PM EST Office Visit [facility] Diabetes [place] [address] [facility] [address] [place] [phone] Katharine Whitlock MD [address] [phone] 08/15/2025 1:40 PM EDT Office Visit [facility] [address] [phone] Na Ang MD [address] [phone] Scheduled Orders Name Type Priority Associated Diagnoses Orde r Schedule CREATININE Lab Routine Low back pain ONCE for 1 Occurrences starting 09/14/2016 until 10/19/2016 documented as of this encounter Goals Goal Patient Goal Type Associated Problems Recent Progress Patient-Stated? Author Blood Pressure < 140/90 Blood Pressure 142/74(2024 12:23 PM EDT) Yara Huddleston CCMA Maintain a healthy diet, exercise regularly and maintain an ideal body weight General On track( 021 1:52 PM EDT) Yara Huddleston CCMA Take rest breaks to enable body time to recover from recent surgery General On track( 021 1:53 PM EDT) No Page Chatterjee RN documented as of this encounter Visit Diagnoses Diagnosis Low back pain Lumbago documented in this encounter Additional Health Concerns Infection Onset Date Last Indicated Resolved Time COVID-19 Comment:[place] [id number]: import to resolve all COVID-19 infections added prior to 03/01/2020 02/21/2020 02/21/2020 03/25/2020 1:4 0 PM EST R/O COVID-19 12/11/2020 12/11/2020 12/11/2020 1:41 PM EDT R/O COVID-19 04/16/2021 04/16/2021 04/17/2021 2:30 PM EST R/O COVID-19 04/28/2022 04/28/2022 04/28/2022 7:12 AM EST INFLUENZA 04/28/2022 04/28/2022 05/06/2022 10:1 2 PM EST documented as of this encounter Care Teams Loans Officer Relationship Specialty Start Date End Date Elvira Velarde MD [address] [place] [address] PCP - General Family Medicine 10/04/14 10/22/18 documented as of this encounter
--- OUTSIDE RECORDS SUMMARY | 2024-11-27 12:30 | XMS_ITS | Encounter Summary ---
Author [place] [address] Care Team Providers Care Candy Forming Machine Operator Name Role Phone Na Ang MD Unavailable [phone] Reason for Referral * Ultrasound (Routine) - Pending Review Specialty Diagnoses / Procedures Referred By Contac t Referred To Contact Radiology Diagnoses Acquired hypothyroidism Procedures US THYROID Katharine Whitlock MD [address] [employer]: [employer] [address] [place] [phone] Phone: tel: fax: Referral ID Status Reason Start Date Expiration Date V isits Requested Visits Authorized [id number] Pending Review 11/27/2024 11/27/2025 1 1 Reason for Visit * Reason Comments Other Encounter Details Date Type Department Care Team (Latest Contact Info) Description 11/27/2024 12:30 PM EDT [facility] [address] [employer] [place] [phone] Katharine Whitlock MD 1500 [employer]: [employer] [facility] [address] [place] [phone] Acquired hypothyroidism (Primary Dx); Secondary adrenal [...] Date Recorded PHQ-2 Total Score 0 07/28/2022 [facility] - [...] 284 MG/1.5 ML SUBCUTANEOUS SYRINGE - 0 Rx#[id number]. Other antihyperlipidemic medications: -02/03/2023 FENOFIBRATE 160 MG TABLET - 0 Rx#[id number]. Therapy plan medications: No therapy plan of [...] Expenses: Not hard at all Received from [facility] Food Insecurities Received from [facility] Transportation Physical Activity: Insufficiently Active (12/18/2020) Exercise Vital Sign Days of Exercise per Week: 7 days Minutes of Exercise per Session: 10 min Stress: No Stress Concern Present (11/25/2020) [facility] - Occupational Stress Questionnaire Feeling of Stress : Not at all Received from [facility] Interpersonal Safety Received from [facility] Housing/Utilities Family History Problem Relation Age of [...] (ASTELIN) 137 mcg (0.1 %) Nasl Aerosol, [place] clonazePAM (KLONOPIN) 0.5 mg Oral Tablet estradioL (ESTRACE) 0.01 % (0.1 mg/gram) Vagl Cream Hyoscyamine Sulfate 0.125 mg Oral Tablet, Rapid Dissolve methocarbamoL (ROBAXIN) 500 mg Oral Tablet mirtazapine (REMERON) 15 mg Oral Tablet nebivoloL (BYSTOLIC) 5 mg Oral Tablet eecovokn-fatxckijp-nqrwwkxmrgwxpaeavg (MAXITROL) 3.5mg/mL-10,000 unit/mL-0.1 % Opht Drops, Suspension [...] EDT Office Visit [facility] [address] [facility] [address] [place] [phone] Liliya Guadarrama, RD,LD [address] [place] [phone] 05/07/2025 12:40 PM EST Office Visit [facility] [address] [facility] [address] [place] [phone] Katharine Whitlock MD 1500 [facility] [address] [place] [phone] 08/15/2025 1:40 PM EDT Office Visit [facility] 1500 [facility] [address] [place] [phone] Na Ang MD [address] [phone] documented as of this encounter Goals [...] HORMONE -REF LAB (12/14/2024 12:41 PM EDT) [facility] ACTH 17.4 7.2 - 63.3 pg/mL 12/17/2024 7:33 PM EDT [employer] Comment: INTERPRETIVE INFORMATION: Adrenocorticotropic Hormone Reference interval based on samples collected between 7 a.m. and 10 a.m. No reference intervals established for p.m. collections. Pediatric reference values are the same as adults (Acta Paediatr Scand 1981;70:341-345). This assay measures intact ACTH 1-39; some types of synthetic ACTH and ACTH fragments are not detected by this assay. Performed By: [facility] [address] [place] [id number] Interior Design Teacher: Uvaldo Youssef MD, PhD CLIA Number: [id number] Blood VENOUS BLOOD / Unknown Venipuncture / Unknown 12/14/2024 12:41 PM EDT 12/14/2024 2:19 PM EDT Katharine Whitlock MD CHEMISTRY ORDERABLES Final Resu lt Performing Organization Address [facility] Co de Phone Number [facility] [address] [place] [address] * CORTISOL (12/14/2024 12:41 PM EDT) Cortisol 5.82 mcg/dL 12/14/2024 6:5 8 PM EDT [facility] Blood VENOUS BLOOD / Unknown Venipuncture / Unknown 12/14/2024 12:41 PM EDT 12/14/2024 3:30 PM EDT Narrative [facility] - 12/14/2024 6:58 PM EDT AM: 4.82 [...] ORDERABLES Final Resu lt Performing Organization Address [facility]/ZIP Co de Phone Number [facility] [address] [facility] , [place] [address] * (ABNORMAL) DEHYDROEPIANDROSTERONE SULFATE (12/14/2024 12:41 PM EDT) Dhea Sulfate 10.40(L) 12.00 - 154.00 mcg/dL 12/14/2024 6:58 PM EDT [employer] Blood VENOUS BLOOD / Unknown Venipuncture / Unknown 12/14/2024 12:41 PM EDT 12/14/2024 3:30 PM EDT Narrative [facility] - 12/14/2024 6:58 PM EDT Ingestion of aldair doses of biotin (>5 mg/day) taken within 8 hours of drawing blood sample can interfere with this immunoassay test. Katharine Whitlock MD CHEMISTRY ORDERABLES Final Resu lt [facility] [employer] , [place] [address] * LUTEINIZING HORMONE (12/14/2024 12:41 PM EDT) LH 44.10 mIU/mL 12/14/2024 6:58 PM EDT [facility] Comment: Suggested Reference Ranges (mIU/mL) Females Follicular Phase 2.4 - 12.6 Ovulation Phase 14.0 - 95.6 Luteal Phase 1.0 - 11.4 Postmenopause 7.7 - 58.5 Males 1.7 - 8.6 Blood VENOUS BLOOD / Unknown Venipuncture / Unknown 12/14/2024 12:41 PM EDT 12/14/2024 3:30 PM EDT Narrative [facility] - 12/14/2024 6:58 PM EDT Ingestion of aldair doses of biotin (>5 mg/day) taken within 8 hours of drawing blood sample can interfere with this immunoassay test. Katharine Whitlock MD CHEMISTRY ORDERABLES Final Resu lt Performing Organization Address City/[facility]/ZIP Co de Phone Number [facility] [address] [facility] [place] [address] * THYROGLOBULIN ANTIBODY -REF LAB (12/14/2024 12:41 PM EDT) Thyroglob Ab <1.5 0.0 - 4.0 IU/mL 12/16/2024 6:43 AM EDT [facility] Comment: INTERPRETIVE INFORMATION: Thyroglobulin Antibody A value of 4.0 IU/mL or less indicates a negative result for thyroglobulin antibodies. The Thyroglobulin Antibody assay is being performed using the [employer] DxI method. Performed By: [facility] [address] [place] [address] Interior Design Teacher: Uvaldo Youssef MD, PhD CLIA Number: [id number] Blood VENOUS BLOOD / Unknown Venipuncture / Unknown 12/14/2024 12:41 PM EDT 12/14/2024 2:31 PM EDT Katharine Whitlock MD IMMUNOLOGY ORDERABLES Final Res ult Performing Organization Address City/[facility]/ZIP Co de Phone Number [facility] [address] [place] [address] * THYROID PEROXIDASE (TPO) ANTIBODY (12/14/2024 12:41 PM EDT) TPO Ab <3.00 <=5.59 IU/mL 12/14/2024 7:09 PM EDT [facility] Blood VENOUS BLOOD / Unknown Venipuncture / Unknown 12/14/2024 12:41 PM EDT 12/14/2024 2:22 PM EDT Katharine Whitlock MD IMMUNOLOGY ORDERABLES Final Res ult [facility] [address] [place] [address] , [place] [address] * T3 FREE (12/14/2024 12:41 PM EDT) T3 Free 2.24 2.00 - 4.40 pg/mL 12/14/2024 6:49 PM EDT [facility] Blood VENOUS BLOOD / Unknown Venipuncture / Unknown 12/14/2024 12:41 PM EDT 12/14/2024 2:23 PM EDT Narrative [facility] - 12/14/2024 6:49 PM EDT Ingestion of aldair doses of biotin (>5 mg/day) taken within 8 hours of drawing blood sample can interfere with this immunoassay test. Katharine Whitlock MD CHEMISTRY ORDERABLES Final Resu Performing Organization Address City/[facility]/ZIP Co de Phone Number [facility] [address] [facility] , [place] [address] * T4, FREE (THYROXINE) (12/14/2024 12:41 PM EDT) Free T4 1.41 0.80 - 1.80 ng/dL 12/14/2024 6:49 PM EDT [facility] Blood VENOUS BLOOD / Unknown Venipuncture / Unknown 12/14/2024 12:41 PM EDT 12/14/2024 2:23 PM EDT Narrative [facility] - 12/14/2024 6:49 PM EDT Ingestion of aldair doses of biotin (>5 mg/day) taken within 8 hours of drawing blood sample can interfere with this immunoassay test. Katharine Whitlock MD CHEMISTRY ORDERABLES Final Resu Performing Organization Address [facility]/ZIP Co de Phone Number [facility] [address] [facility] , [place] [address] * THYROID STIMULATING HORMONE (12/14/2024 12:41 PM EDT) TSH 0.737 0.270 - 4.200 mcIU/mL 12/14/2024 6:49 PM EDT [facility] Blood VENOUS BLOOD / Unknown Venipuncture / Unknown 12/14/2024 12:41 PM EDT 12/14/2024 2:23 PM EDT Narrative [facility] - 12/14/2024 6:49 PM EDT Ingestion of aldair doses of biotin (>5 mg/day) taken within 8 hours of drawing blood sample can interfere with this immunoassay test. Katharine Whitlock MD CHEMISTRY ORDERABLES Final Resu [facility] [address] [facility] [address] , [place] [address] * PARATHYROID HORMONE INTACT (12/14/2024 12:41 PM EDT) Pathologist [facility] PTH Intact 27.90 15.00 - 65.00 pg/mL 12/14/2024 6:35 PM EDT [facility] [employer] [facility] Blood VENOUS BLOOD / Unknown Venipuncture / Unknown 12/14/2024 12:41 PM EDT 12/14/2024 2:31 PM EDT Narrative [facility] [employer] [facility] - 12/14/2024 6:35 PM EDT Intact PTH [...] Whitlock MD CHEMISTRY ORDERABLES Final Resu lt [employer] [facility] 1 [facility] , [place] [address] * VITAMIN D, 1,25-DIHYDROXY -REF LAB (12/14/2024 12:41 PM EDT) Pathologist [facility] Vit D 1,25 46.9 19.9 - 79.3 pg/mL 12/16/2024 2:37 PM EDT [employer] Comment: INTERPRETIVE INFORMATION: Vitamin D, 1,25-Dihydroxy This test is primarily indicated during patient evaluation for hypercalcemia and renal failure. A normal result does not rule out Vitamin D deficiency. The recommended test for diagnosing Vitamin D deficiency is Vitamin D 25-hydroxy. Performed By: [facility] [address] [place] [address] Interior Design Teacher: Uvaldo Youssef MD, PhD CLIA Number: [id number] Blood VENOUS BLOOD / Unknown Venipuncture / Unknown 12/14/2024 12:41 PM EDT 12/14/2024 2:31 PM EDT Katharine Whitlock MD CHEMISTRY ORDERABLES Final Resu lt Performing Organization Address [facility] Co de Phone Number [facility] [address] [place] [address] * VITAMIN D 25 HYDROXY (12/14/2024 12:41 PM EDT) Vit D 25 OH 72.0 30.0 - 150.0 ng/mL 12/14/2024 6:58 PM EDT [facility] Comment: Preferred: >= 30 ng/mL Insufficient: 21-29 [...] ORDERABLES Final Resu lt Performing Organization Address City/[facility]/ZIP Co de Phone Number [facility] [address] [facility] , [place] [address] * LIPID PANEL REFLEX (12/14/2024 12:41 PM EDT) Cholesterol 158 <200 mg/dL 12/14/2024 6:49 PM EDT [facility] Comment: < 200 Desirable 200 - 239 Borderline High >= 240 High Triglyceride 97 <150 mg/dL 12/14/2024 6:49 PM EDT [facility] [employer] Comment: < 150 Normal 150 - 199 Borderline High 200 - 499 High >= 500 Very High HDL 49 >=40 mg/dL 12/14/2024 6:49 PM EDT [facility] [employer] Comment: > 60 Optimal 40 - 60 Acceptable < 40 Low LDL Calculated 91 <100 mg/dL 12/14/2024 6:49 PM EDT [facility] [employer] Comment: < 100 Optimal 100 - 129 Near or above optimal 130 - 159 Borderline High 160 - 189 High >= 190 Very High The National Institutes of Health (NIH) equation is used for all lipid panels that report calculated LDL (LDL-C). Non-HDL-C Calculated 109 <=129 mg/dL 12/14/2024 6:49 PM EDT [facility] [employer] Comment: <130 Desirable 130-159 Above Desirable 160-189 Borderline High 190-219 High >= 220 Very High Fasting Specimen? Yes None 025 6:49 PM EDT [facility] [employer] Blood VENOUS BLOOD / Unknown Venipuncture / Unknown 12/14/2024 12:41 PM EDT 12/14/2024 2:23 PM EDT Katharine Whitlock MD CHEMISTRY ORDERABLES Final Resu lt [facility] [employer] [facility] [address] [facility] , [place] [address] * LIPOPROTEIN (A) (12/14/2024 12:41 PM EDT) [facility] Lipoprotein (a) 16 <30 mg/dL 7:13 PM EDT [facility] [employer] [facility] Blood VENOUS BLOOD / Unknown Venipuncture / Unknown 12/14/2024 12:41 PM EDT 12/14/2024 2:23 PM EDT Katharine Whitlock MD CHEMISTRY ORDERABLES Final Resu lt [facility] [employer] [facility] [address] [facility] , [place] [address] * LACTIC ACID (12/14/2024 12:41 PM EDT) Lactic Acid 0.9 0.5 - 1.9 mmol/L 12/14/2024 1:41 PM EDT [facility] Blood VENOUS BLOOD / Unknown Venipuncture / Unknown 12/14/2024 12:41 PM EDT 12/14/2024 1:14 PM EDT Katharine Whitlock MD CHEMISTRY ORDERABLES Final Resu lt Performing Organization Address City/[facility]/ZIP Co de Phone Number [facility] [address] [place] [address] * VITAMIN B6 (PYRIDOXINE) -REF LAB (12/14/2024 12:41 PM EDT) Pathologist [facility] Vit B6 37.9 20.0 - 125.0 nmol/L 12/19/2024 5:11 AM EDT [employer] Comment: INTERPRETIVE INFORMATION: Vitamin B6 (Pyridoxal 5-Phosphate) Pyridoxal 5'-phosphate measured in a specimen collected following an 8-hour or overnight fast accurately indicates vitamin B6 nutritional status. Non-fasting specimen concentration reflects recent vitamin intake. This test was developed and its performance characteristics determined by [facility]. It has not been cleared or approved by the US Food and Drug Administration. This test was performed in a CLIA certified laboratory and is intended for clinical purposes. Performed By: [facility] [address] [place] [address] Interior Design Teacher: Uvaldo Youssef MD, PhD CLIA Number: [id number] Blood VENOUS BLOOD / Unknown Venipuncture / Unknown 12/14/2024 12:41 PM EDT 12/14/2024 4:56 PM EDT Katharine Whitlock MD CHEMISTRY ORDERABLES Final Resu lt Performing Organization Address City/[facility]/ZIP Co de Phone Number [facility] [address] [place] [address] * VITAMIN B12 LEVEL (12/14/2024 12:41 PM EDT) Vitamin B12 379 232 - 1,245 pg/mL 12/14/2024 6:58 PM EDT [facility]REF[facility] [employer], [facility] Blood VENOUS BLOOD / Unknown Venipuncture / Unknown 12/14/2024 12:41 PM EDT 12/14/2024 3:30 PM EDT Narrative [facility]REF[facility] [employer], [facility] - 12/14/2024 6:58 PM EDT Ingestion of aldair doses of biotin (>5 mg/day) taken within 8 hours of drawing blood sample can interfere with this immunoassay test. Katharine Whitlock MD CHEMISTRY ORDERABLES Final Resu Performing Organization Address [facility]/ZIP Co de Phone Number [facility] [address] [facility] , [place] [address] * URIC ACID (12/14/2024 12:41 PM EDT) Pathologist [facility] Uric Acid 3.4 2.4 - 5.7 mg/dL 12/14/2024 6:49 PM EDT [facility]REF[facility] [employer], [facility] Blood VENOUS BLOOD / Unknown Venipuncture / Unknown 12/14/2024 12:41 PM EDT 12/14/2024 2:23 PM EDT Katharine Whitlock MD CHEMISTRY ORDERABLES Final Resu lt Performing Organization Address [facility]/ZIP Co de Phone Number [facility] [employer], [facility] [address] [facility] , [place] [address] * (ABNORMAL) IRON+TIBC (12/14/2024 12:41 PM EDT) Iron 78 30 - 160 mcg/dL 12/14/2024 6:49 PM EDT [facility] [employer], [facility] Transferrin 298 200 - 360 mg/dL 12/14/2024 6:49 PM EDT [facility] [employer], [facility] Transferrin Saturation 19(L) 20 - 50 % 12/14/2024 6:49 PM EDT [facility] LAB [employer], [facility] TIBC 417(H) 250 - 400 mcg/dL 12/14/2024 6:49 PM EDT [facility] Blood VENOUS BLOOD / Unknown Venipuncture / Unknown 12/14/2024 12:41 PM EDT 12/14/2024 2:23 PM EDT Katharine Whitlock MD CHEMISTRY ORDERABLES Final Resu lt [facility] [address] [facility] , [place] [address] * (ABNORMAL) COMPREHENSIVE METABOLIC PANEL (12/14/2024 12:41 [...] U/L 12/14/2024 6:49 PM EDT [facility]REF[facility], [facility] AST 28 <=40 U/L 12/14/2024 6:49 PM EDT [facility] LAB [facility], [facility] Alk Phos 36 36 - 123 U/L 12/14/2024 6:49 PM EDT [facility] LAB [facility], [facility] eGFR (CKD-EPIcr 2020) 67 >=60 mL/min/1.7 3 m2 12/14/2024 6:49 PM EDT [facility] LAB [facility], [facility] Comment:Estimated GFR was ca lculated using the CKD-EPIcr (2020) equation refit without race. The equation is recommended by the National Kidney Foundation - [place] [employer] of Nephrology Task Force. Blood VENOUS BLOOD / Unknown Venipuncture / Unknown 12/14/2024 12:41 PM EDT 12/14/2024 2:23 PM EDT Katharine Whitlock MD CHEMISTRY ORDERABLES Final Resu lt [facility] 1 [facility] , [place] [address] * C-REACTIVE PROTEIN (12/14/2024 12:41 PM EDT) Pathologist [facility] CRP <3.00 <=5.00 mg/L 12/14/2024 7:13 PM EDT [facility], [facility] Blood VENOUS BLOOD / Unknown Venipuncture / Unknown 12/14/2024 12:41 PM EDT 12/14/2024 2:23 PM EDT Katharine Whitlock MD CHEMISTRY ORDERABLES Final Resu lt [facility] 1 [facility] , [place] [address] * US THYROID (12/12/2024 12:48 [...] 12:48 PM CLINICAL HISTORY: Thyroid nodule(s). E03.9-Hypothyroidism, [id number]-CM. COMPARISON: None. PROCEDURE COMMENTS: Sonographic evaluation of [...] 12:48 PM CLINICAL HISTORY: Thyroid nodule(s). E03.9-Hypothyroidism, [id number]-CM. COMPARISON: None. PROCEDURE COMMENTS: Sonographic evaluation of [...] please contactthe office of the ordering clinician. Katharine BILLINGS US ORDERABLES Final Result documented in this [...] documented as of this encounter Care Teams Candy Forming Machine Operator Relationship Specialty Start Date End Date Na Ang MD [address] [phone] Consulting Physician Ophthalmology 07/10/20 documented as of this encounter
--- OUTSIDE RECORDS SUMMARY | 2024-12-12 12:22 | XMS_ITS | Encounter Summary ---
Author Organization [place] [address] Care Team Providers Care Station Installer And Repairer Name Role Phone Na Ang MD Unavailable [phone] Reason for Referral * Ultrasound (Routine) - Pending Review Specialty Diagnoses / Procedures Referred By Contac t Referred To Contact Radiology Diagnoses Acquired hypothyroidism Procedures US THYROID Katharine Whitlock MD [address] [place] [place] [phone] Phone: tel: fax: Referral ID Status Reason Start Date Expiration Date V isits Requested Visits Authorized [id number] Pending Review 11/27/2024 11/27/2025 1 1 Reason for Visit * Ultrasound (Routine) - Pending Review Specialty Diagnoses / Procedures Referred By Alpesh correia Referred To Contact Radiology Diagnoses Acquired hypothyroidism Procedures US THYROID Katharine Whitlock MD 1500 [facility] [address] [place] [phone] Phone: tel: fax: Referral ID Status Reason Start Date Expiration Date V isits Requested Visits Authorized [id number] Pending Review 11/27/2024 11/27/2025 1 1 Encounter Details Date Type Department Care Team (Latest Contact Info) Description 12/12/2024 12:22 PM EDT - 12/12/2024 11:59 PM EDT Hospital Encounter [facility] [address] [place] [address] Katharine Whitlock MD [address] [facility] [address] [place] [address] Acquired hypothyroidism Discharge Disposition: Home [...] Date Recorded PHQ-2 Total Score 0 07/28/2022 [facility] [place] of Occupat ional Health - Occupational Stress [...] (ASTELIN) 137 mcg (0.1 %) Nasl Aerosol, [place] USE 1 SPRAY(S) IN EACH NOSTRIL TWICE [...] EDT Office Visit [facility] 1500 [facility] [address] [place] [phone] [address],LD [address] [place] [address] 05/07/2025 12:40 PM EST Office Visit [facility] Diabetes [place] [address] [facility] [address] [place] [address] Katharine Whitlock MD 1500 [facility] [address] [place] [phone] 08/15/2025 1:40 PM EDT Office Visit [facility] [address] [facility] [address] [place] [phone] Na Ang MD [address] [facility] [address] [place] [phone] documented as of this encounter Goals Goal [...] Chatterjee RN documented as of this encounter Procedures [...] 12:48 PM CLINICAL HISTORY: Thyroid nodule(s). E03.9-Hypothyroidism, [id number]. COMPARISON: None. PROCEDURE COMMENTS: Sonographic evaluation of [...] 12:48 PM CLINICAL HISTORY: Thyroid nodule(s). E03.9-Hypothyroidism, [id number]. COMPARISON: None. PROCEDURE COMMENTS: Sonographic evaluation of [...] contactthe office of the ordering clinician. us Wael Emad Chinyerevera [place] IMJerry US ORDERABLES Final Result documented in this encounter Visit Diagnoses Diagnosis Acquired hypothyroidism Unspecified hypothyroidism documented in this encounter Additional Health Concerns Assessment Noted Time A fall risk assessment has been complete d for the patient 07/28/2022 2:08 PM EDT documented as of this encounter Care Teams Station Installer And Repairer Relationship Specialty Start Date End Date Na Ang MD [address] [phone] Consulting Physician Ophthalmology 07/10/20 documented as of this encounter
--- OUTSIDE RECORDS SUMMARY | 2024-12-14 12:28 | XMS_ITS | Encounter Summary ---
Author [place] [address] Care Team Providers Care Umbrella [employer] Name Role Phone Na Ang MD Unavailable [phone] Encounter Details Date Type Department Care Team (Latest Contact Info) Description 12/14/2024 12:28 PM EDT - 12/14/2024 11:59 PM EDT Hospital Encounter [facility] [address] [place] [phone] Acquired hypothyroidism; Chronic fatigue; Other hyperlipidemia; Vitamin [...] Date Recorded PHQ-2 Total Score 0 07/28/2022 [facility] ional [facility] - Occupational Stress [...] (ASTELIN) 137 mcg (0.1 %) Nasl Aerosol, Mingo USE 1 SPRAY(S) IN EACH NOSTRIL TWICE [...] EDT Office Visit [facility] [address] [phone] [address],LD [address] [place] [address] 05/07/2025 12:40 PM EST Office Visit [facility] [place] [address] [phone] Katharine Whitlock MD [address] [phone] 08/15/2025 1:40 PM EDT Office Visit [facility] [address] [phone] Na Ang MD [address] [phone] documented as of this encounter Goals Goal [...] 57 >=50 mg/dL 12/14/2024 4:58 PM EDT [facility] Blood VENOUS BLOOD / Unknown Venipuncture / Unknown 12/14/2024 4:27 PM EDT 12/14/2024 4:27 PM EDT Katharine Whitlock MD CHEMISTRY ORDERABLES Final Resu lt Performing Organization Address City/[facility]/ZIP Co de Phone Number [facility] [address] [place] [address] * GLUCOSE 2.5 HOUR (12/14/2024 3:52 PM EDT) Gluc 2.5 Hr 80 >=50 mg/dL 12/14/2024 4:36 PM EDT [facility] Blood VENOUS BLOOD / Unknown Venipuncture / Unknown 12/14/2024 3:52 PM EDT 12/14/2024 3:52 PM EDT Katharine Whitlock MD CHEMISTRY ORDERABLES Final Resu lt [facility] [address] [place] [address] * GLUCOSE HYPOGLYCEMIA 2 HOUR (GTT) (12/14/2024 3:16 PM EDT) Gluc 2 Hr 84 <140 mg/dL 12/14/2024 3:52 PM EDT [facility] Blood VENOUS BLOOD / Unknown Venipuncture / Unknown 12/14/2024 3:16 PM EDT 12/14/2024 3:16 PM EDT us Katharine Whitlock MD CHEMISTRY ORDERABLES Final Resu lt Performing Organization Address [facility] de Phone Number [place] [address] [place] [address] * GLUCOSE 1.5 HOUR (12/14/2024 2:42 PM EDT) Glu 1.5 Hr 87 mg/dL 12/14/2024 3:31 PM EDT [facility] Blood VENOUS BLOOD / Unknown Venipuncture / Unknown 12/14/2024 2:42 PM EDT 12/14/2024 2:42 PM EDT Katharine Whitlock MD CHEMISTRY ORDERABLES Final Resu lt Performing Organization Address [facility] de Phone Number [facility] [address] [place] [address] * GLUCOSE HYPOGLYCEMIA 1 HOUR (GTT) (12/14/2024 2:11 PM EDT) Gluc 1 Hr 89 - mg/dL 12/14/2024 3:02 PM EDT [facility] Blood VENOUS BLOOD / Unknown Venipuncture / Unknown 12/14/2024 2:11 PM EDT 12/14/2024 2:11 PM EDT Katharine Whitlock MD CHEMISTRY ORDERABLES Final Resu lt Performing Organization Address [facility] Phone Number [facility] [address] [place] [address] * GLUCOSE .5 HOUR (12/14/2024 1:36 PM EDT) Gluc .5 Hr 136 mg/dL 12/14/2024 2:12 PM EDT [facility] Blood VENOUS BLOOD / Unknown Venipuncture / Unknown 12/14/2024 1:36 PM EDT 12/14/2024 1:34 PM EDT Katharine Whitlock MD CHEMISTRY ORDERABLES Final Resu lt Performing Organization Address [facility] de Phone Number [facility] [address] [place] [address] * GLUC HYPOGLYCEMIA FASTING (GTT) (12/14/2024 12:41 PM EDT) Glucose Fasting 92 <100 mg/dL 12/14/2024 1:33 PM EDT [facility] Blood VENOUS BLOOD / Unknown Venipuncture / Unknown 12/14/2024 12:41 PM EDT 12/14/2024 1:07 PM EDT Katharine Whitlock MD CHEMISTRY ORDERABLES Final Resu Performing Organization Address [facility] Phone Number [facility] [address] [place] [address] * ADRENOCORTICOTROPIC HORMONE -REF LAB (12/14/2024 12:41 PM EDT) Pathologist [facility] ACTH 17.4 7.2 - 63.3 pg/mL 12/17/2024 7:33 PM EDT [employer] Comment: INTERPRETIVE INFORMATION: Adrenocorticotropic Hormone Reference interval based on samples collected between 7 a.m. and 10 a.m. No reference intervals established for p.m. collections. Pediatric reference values are the same as adults (Acta Paediatr Scand 1981;70:341-345). This assay measures intact ACTH 1-39; some types of synthetic ACTH and ACTH fragments are not detected by this assay. Performed By: [employer] [address] [place] [id number] Commercial Retoucher: Uvaldo Youssef MD, PhD CLIA Number: [id number] Blood VENOUS BLOOD / Unknown Venipuncture / Unknown 12/14/2024 12:41 PM EDT 12/14/2024 2:19 PM EDT Katharine Whitlock MD CHEMISTRY ORDERABLES Final Resu Performing Organization Address City/[facility]/ZIP Co de Phone Number [employer] [address] [place] [address] * CORTISOL (12/14/2024 12:41 PM EDT) Cortisol 5.82 mcg/dL 12/14/2024 6:5 8 PM EDT [employer] Blood VENOUS BLOOD / Unknown Venipuncture / Unknown 12/14/2024 12:41 PM EDT 12/14/2024 3:30 PM EDT Narrative [employer] - 12/14/2024 6:58 PM EDT AM: 4.82 [...] test. Katharine Whitlock MD CHEMISTRY ORDERABLES Final [facility] Performing Organization Address [facility]/ZIP Co de Phone Number [employer] [address] [facility] , [place] [address] * (ABNORMAL) DEHYDROEPIANDROSTERONE SULFATE (12/14/2024 12:41 PM EDT) Dhea Sulfate 10.40(L) 12.00 - 154.00 mcg/dL 12/14/2024 6:58 PM EDT [employer] Blood VENOUS BLOOD / Unknown Venipuncture / Unknown 12/14/2024 12:41 PM EDT 12/14/2024 3:30 PM EDT Narrative [employer] - 12/14/2024 6:58 PM EDT Ingestion of aldair doses of biotin (>5 mg/day) taken within 8 hours of drawing blood sample can interfere with this immunoassay test. Katharine Whitlock MD CHEMISTRY ORDERABLES Final Resu Performing Organization Address [facility] de Phone Number [facility] [employer] [address] , [place] [address] * LUTEINIZING HORMONE (12/14/2024 12:41 PM EDT) LH 44.10 mIU/mL 12/14/2024 6:58 PM EDT [facility] [employer] [facility] Comment: Suggested Reference Ranges (mIU/mL) Females Follicular Phase 2.4 - 12.6 Ovulation Phase 14.0 - 95.6 Luteal Phase 1.0 - 11.4 Postmenopause 7.7 - 58.5 Males 1.7 - 8.6 Blood VENOUS BLOOD / Unknown Venipuncture / Unknown 12/14/2024 12:41 PM EDT 12/14/2024 3:30 PM EDT Narrative [facility] [employer] [facility] - 12/14/2024 6:58 PM EDT Ingestion of aldair doses of biotin (>5 mg/day) taken within 8 hours of drawing blood sample can interfere with this immunoassay test. Katharine Whitlock MD CHEMISTRY ORDERABLES Final [facility] Performing Organization Address [facility] Phone Number [facility] [employer] [address] , [place] [address] * THYROGLOBULIN ANTIBODY -REF LAB (12/14/2024 12:41 PM EDT) Thyroglob Ab <1.5 0.0 - 4.0 IU/mL 12/16/2024 6:43 AM EDT [employer] Comment: INTERPRETIVE INFORMATION: Thyroglobulin Antibody A value of 4.0 IU/mL or less indicates a negative result for thyroglobulin antibodies. The Thyroglobulin Antibody assay is being performed using the S B E Access DxI method. Performed By: [employer] [address] [place] [address] Commercial Retoucher: Uvaldo Youssef MD, PhD CLIA Number: [id number] Blood VENOUS BLOOD / Unknown Venipuncture / Unknown 12/14/2024 12:41 PM EDT 12/14/2024 2:31 PM EDT Katharine Whitlock MD IMMUNOLOGY ORDERABLES Final Res ult Performing Organization Address City/[facility]/ZIP Co de Phone Number [employer] [address] [place] [address] * THYROID PEROXIDASE (TPO) ANTIBODY (12/14/2024 12:41 PM EDT) TPO Ab <3.00 <=5.59 IU/mL 12/14/2024 7:09 PM EDT [facility] [employer] Blood VENOUS BLOOD / Unknown Venipuncture / Unknown 12/14/2024 12:41 PM EDT 12/14/2024 2:22 PM EDT Katharine Whitlock MD IMMUNOLOGY ORDERABLES Final Res ult Performing Organization Address [facility] de Phone Number [employer] [address] [facility] , [place] [address] * T3 FREE (12/14/2024 12:41 PM EDT) T3 Free 2.24 2.00 - 4.40 pg/mL 12/14/2024 6:49 PM EDT [facility] [employer] Blood VENOUS BLOOD / Unknown Venipuncture / Unknown 12/14/2024 12:41 PM EDT 12/14/2024 2:23 PM EDT Narrative [facility] [employer] - 12/14/2024 6:49 PM EDT Ingestion of aldair doses of biotin (>5 mg/day) taken within 8 hours of drawing blood sample can interfere with this immunoassay test. Katharine Whitlock MD CHEMISTRY ORDERABLES Final Resu lt Performing Organization Address [facility] Co de Phone Number [employer] [address] [facility] , [place] [address] * T4, FREE (THYROXINE) (12/14/2024 12:41 PM EDT) Free T4 1.41 0.80 - 1.80 ng/dL 12/14/2024 6:49 PM EDT [facility] [employer] [facility] Blood VENOUS BLOOD / Unknown Venipuncture / Unknown 12/14/2024 12:41 PM EDT 12/14/2024 2:23 PM EDT Narrative [facility] [employer] [facility] - 12/14/2024 6:49 PM EDT Ingestion of aldair doses of biotin (>5 mg/day) taken within 8 hours of drawing blood sample can interfere with this immunoassay test. Katharine Whitlock MD CHEMISTRY ORDERABLES Final Resu Performing Organization Address [facility] Co de Phone Number [facility] [employer] , [place] [address] * THYROID STIMULATING HORMONE (12/14/2024 12:41 PM EDT) Pathologist [facility] TSH 0.737 0.270 - 4.200 mcIU/mL 12/14/2024 6:49 PM EDT [facility] [employer] [facility] Blood VENOUS BLOOD / Unknown Venipuncture / Unknown 12/14/2024 12:41 PM EDT 12/14/2024 2:23 PM EDT [facility] - 12/14/2024 6:49 PM EDT Ingestion of aldair doses of biotin (>5 mg/day) taken within 8 hours of drawing blood sample can interfere with this immunoassay test. Katharine Whitlock MD CHEMISTRY ORDERABLES Final Resu Performing Organization Address [facility]/ZIP Co de Phone Number [facility] [address] [facility] , [place] [address] * PARATHYROID HORMONE INTACT (12/14/2024 12:41 PM EDT) Pathologist [facility] PTH Intact 27.90 15.00 - 65.00 pg/mL 12/14/2024 6:35 PM EDT [facility] [employer] [facility] Blood VENOUS BLOOD / Unknown Venipuncture / Unknown 12/14/2024 12:41 PM EDT 12/14/2024 2:31 PM EDT Carlos [facility] [employer] [facility] - 12/14/2024 6:35 PM EDT Intact [...] Whitlock MD CHEMISTRY ORDERABLES Final Resu lt [facility] [employer] [facility] [address] [facility], [place] [address] * VITAMIN D, 1,25-DIHYDROXY -REF LAB (12/14/2024 12:41 PM EDT) Vit D 1,25 46.9 19.9 - 79.3 pg/mL 12/16/2024 2:37 PM EDT [employer] Comment: INTERPRETIVE INFORMATION: Vitamin D, 1,25-Dihydroxy This test is primarily indicated during patient evaluation for hypercalcemia and renal failure. A normal result does not rule out Vitamin D deficiency. The recommended test for diagnosing Vitamin D deficiency is Vitamin D 25-hydroxy. Performed By: [employer] [address] [place] [address] Commercial Retoucher: Uvaldo Youssef MD, PhD CLIA Number: [id number] Blood VENOUS BLOOD / Unknown Venipuncture / Unknown 12/14/2024 12:41 PM EDT 12/14/2024 2:31 PM EDT Katharine Whitlock MD CHEMISTRY ORDERABLES Final Resu lt [employer] [address] [place] [address] * VITAMIN D 25 HYDROXY (12/14/2024 12:41 PM EDT) Pathologist [facility] Vit D 25 OH 72.0 30.0 - 150.0 ng/mL 12/14/2024 6:58 PM EDT PREFERRED LAB [employer] Comment: Preferred: >= 30 ng/mL Insufficient: 21-29 [...] MD CHEMISTRY ORDERABLES Final Resu lt [facility] [employer] [address] [facility] , [place] [address] * LIPID PANEL REFLEX (12/14/2024 12:41 PM EDT) [facility] Cholesterol 158 <200 mg/dL 12/14/2024 6:49 PM EDT [facility]REFERRED [facility] [employer] Comment: < 200 Desirable 200 - 239 Borderline High >= 240 High Triglyceride 97 <150 mg/dL 12/14/2024 6:49 PM EDT [facility]REFERRED [facility] [employer] Comment: < 150 Normal 150 - 199 Borderline High 200 - 499 High >= 500 Very High HDL 49 >=40 mg/dL 12/14/2024 6:49 PM EDT PREFERRED [facility] [employer] Comment: > 60 Optimal 40 - 60 Acceptable < 40 Low LDL Calculated 91 <100 mg/dL 12/14/2024 6:49 PM EDT [facility] [employer] Comment: < 100 Optimal 100 - 129 Near or above optimal 130 - 159 Borderline High 160 - 189 High >= 190 Very High The National Institutes of Health (NIH) equation is used for all lipid panels that report calculated LDL (LDL-C). Non-HDL-C Calculated 109 <=129 mg/dL 12/14/2024 6:49 PM EDT [facility] [employer] Comment: <130 Desirable 130-159 Above Desirable 160-189 Borderline High 190-219 High >= 220 Very High Fasting Specimen? Yes None 025 6:49 PM EDT [facility] [employer] Blood VENOUS BLOOD / Unknown Venipuncture / Unknown 12/14/2024 12:41 PM EDT 12/14/2024 2:23 PM EDT Katharine Whitlock MD CHEMISTRY ORDERABLES Final Resu lt Performing Organization Address City/[facility]/ZIP Co de Phone Number [facility] [employer] [facility] [address] [facility] , [place] [address] * LIPOPROTEIN (A) (12/14/2024 12:41 PM EDT) Pathologist [facility] Lipoprotein (a) 16 <30 mg/dL 7:13 PM EDT [facility] [employer] Blood VENOUS BLOOD / Unknown Venipuncture / Unknown 12/14/2024 12:41 PM EDT 12/14/2024 2:23 PM EDT Katharine Whitlock MD CHEMISTRY ORDERABLES Final Resu lt [facility] [employer] [facility] [address] [facility] , [place] [address] * LACTIC ACID (12/14/2024 12:41 PM EDT) Pathologist [facility] Lactic Acid 0.9 0.5 - 1.9 mmol/L 12/14/2024 1:41 PM EDT [facility] Blood VENOUS BLOOD / Unknown Venipuncture / Unknown 12/14/2024 12:41 PM EDT 12/14/2024 1:14 PM EDT Katharine Whitlock MD CHEMISTRY ORDERABLES Final Resu lt [facility] [address] [place] [address] * VITAMIN B6 (PYRIDOXINE) -REF LAB (12/14/2024 12:41 PM EDT) Vit B6 37.9 20.0 - 125.0 nmol/L 12/19/2024 5:11 AM EDT [employer] Comment: INTERPRETIVE INFORMATION: Vitamin B6 (Pyridoxal 5-Phosphate) Pyridoxal 5'-phosphate measured in a specimen collected following an 8-hour or overnight fast accurately indicates vitamin B6 nutritional status. Non-fasting specimen concentration reflects recent vitamin intake. This test was developed and its performance characteristics determined by [employer]. It has not been cleared or approved by the [place] Food and Drug Administration. This test was performed in a CLIA certified laboratory and is intended for clinical purposes. Performed By: [employer] [address] [place] [address] Commercial Retoucher: Uvaldo Youssef MD, PhD CLIA Number: [id number] Blood VENOUS BLOOD / Unknown Venipuncture / Unknown 12/14/2024 12:41 PM EDT 12/14/2024 4:56 PM EDT Katharine Whitlock MD CHEMISTRY ORDERABLES Final Resu lt [employer] [address] [place] [address] * VITAMIN B12 LEVEL (12/14/2024 12:41 PM EDT) Vitamin B12 379 232 - 1,245 pg/mL 12/14/2024 6:58 PM EDT [facility] [employer], [facility] Blood VENOUS BLOOD / Unknown Venipuncture / Unknown 12/14/2024 12:41 PM EDT 12/14/2024 3:30 PM EDT Narrative PREFERRED LAB [employer], [facility] - 12/14/2024 6:58 PM EDT Ingestion of aldair doses of biotin (>5 mg/day) taken within 8 hours of drawing blood sample can interfere with this immunoassay test. us Katharine Whitlock MD CHEMISTRY ORDERABLES Final Resu lt Performing Organization Address [facility] Co de Phone Number [facility] [employer], [facility] [address] [facility] , [address] [place] [id number] * URIC ACID (12/14/2024 12:41 PM EDT) Uric Acid 3.4 2.4 - 5.7 mg/dL 12/14/2024 6:49 PM EDT PREFERRED [facility] [employer], [facility] Blood VENOUS BLOOD / Unknown Venipuncture / Unknown 12/14/2024 12:41 PM EDT 12/14/2024 2:23 PM EDT Katharine Whitlock MD CHEMISTRY ORDERABLES Final Resu lt Performing Organization Address [facility] de Phone Number PREFERRED [employer], [facility] [address] [facility] , [place] [address] * (ABNORMAL) IRON+TIBC (12/14/2024 12:41 PM EDT) Iron 78 30 - 160 mcg/dL 12/14/2024 6:49 PM EDT PREFERRED [facility] [employer], [facility] Transferrin 298 200 - 360 mg/dL 12/14/2024 6:49 PM EDT [facility]REFERRED [facility] [employer], [facility] Trans[employer]in Saturation 19(L) 20 - 50 % 12/14/2024 6:49 PM EDT [facility]REFERRED [facility] [employer], [facility] TIBC 417(H) 250 - 400 mcg/dL 12/14/2024 6:49 PM EDT [facility] [employer], [facility] Blood VENOUS BLOOD / Unknown Venipuncture / Unknown 12/14/2024 12:41 PM EDT 12/14/2024 2:23 PM EDT Katharine Whitlock MD CHEMISTRY ORDERABLES Final Resu lt [facility] [address] [facility] , [place] [address] * (ABNORMAL) COMPREHENSIVE METABOLIC PANEL (12/14/2024 12:41 [...] mL/min/1.7 3 m2 12/14/2024 6:49 PM EDT [facility] [employer] Comment:Estimated GFR was ca lculated using the CKD-EPIcr (2020) equation refit without race. The equation is recommended by the National Kidney Foundation - [place] [employer] of Nephrology Task Force. Blood VENOUS BLOOD / Unknown Venipuncture / Unknown 12/14/2024 12:41 PM EDT 12/14/2024 2:23 PM EDT Katharine Whitlock MD CHEMISTRY ORDERABLES Final Resu lt Performing Organization Address [facility] Co de Phone Number [facility] [employer] [address] [facility] , [place] [address] * C-REACTIVE PROTEIN (12/14/2024 12:41 PM EDT) CRP <3.00 <=5.00 mg/L 12/14/2024 7:13 PM EDT [facility] [employer] Blood VENOUS BLOOD / Unknown Venipuncture / Unknown 12/14/2024 12:41 PM EDT 12/14/2024 2:23 PM EDT Katharine Whitlock MD CHEMISTRY ORDERABLES Final Resu lt Performing Organization Address City/[facility] Co de Phone Number [facility] [employer] [facility] [address] [facility] , [place] [address] documented in this encounter Visit Diagnoses Diagnosis Acquired hypothyroidism Unspecified hypothyroidism Chronic fatigue Other malaise and fatigue Other hyperlipidemia Vitamin D deficiency Unspecified vitamin D deficiency Secondary adrenal insufficiency Glucocorticoid deficiency documented in this encounter Additional Health Concerns Assessment Noted Time A fall risk assessment has been complete d for the patient 07/28/2022 2:08 PM EDT documented as of this encounter Care Teams [employer] Relationship Specialty Start Date End Date Na Ang MD [address] [phone] Consulting Physician Ophthalmology 07/10/20 documented as of this encounter
--- OUTSIDE RECORDS SUMMARY | 2024-12-27 21:43 | XMS_ITS | Encounter Summary ---
Author Organization [facility] Address [address] [place] [address] Care Team Providers Care Sand Slinger Name Role Phone Leroy Gordon APRN Primary Care Provider [phone] Stefan Lennon MD Unavailable [phone] Vikas Green MD Unavailable [phone] Reason for Visit * Reason Comments Multiple Complaints * Auth/Cert (Routine) Specialty Diagnoses / Procedures Referred By Alpesh correia Referred To Contact Diagnoses pain [facility] [address] [place] [address] Phone: tel: [facility] Emergency Department [address] [place] [address] Phone: tel: Referral ID Status Reason Start Date Expiration Date Visits Re quested Visits Authorized [id number] 1 1 Encounter Details Date Type Department Care Team ([facility] st Contact Info) Description 12/27/2024 9:43 PM EDT - 12/28/2024 1:27 PM EDT Hospital Encounter [facility] Emergency Department [address] [place] [address] Moncho Gooden MD [address] [place] [address] Numbness and tingling of both legs (Primary Dx); Lumbar back pain Discharge Disposition: Home or Self Care Social [...] Sign Reading Time Taken Comments Blood Pressure 145/85 12/28/2024 10:13 AM EDT Pulse 62 12/28/2024 10:13 AM EDT Temperature 36.4 C (97.5 F) 12/28/2024 10:13 AM EDT Respiratory Rate 18 12/28/2024 10:13 AM EDT Oxygen Saturation 98% 12/28/2024 10:13 AM EDT Inhaled Oxygen Concentration - - Weight 70.8 kg (156 lb) 12/27/2024 10:00 PM EDT Height 165.1 cm (5' 5 ) 12/27/2024 10:00 PM EDT Body Mass Index 25.96 12/27/2024 10:00 PM EDT documented in this encounter Functional Status * Calculated C-SSRS Risk Score (Lifetime/Recent) Answer Date of Assessment Author No Risk Indicated 12/28/2024 7:00 AM EDT Jayna Smith RN * Question Answer Date of Assessment Author 1. Wish to be (Past 1 Month) No 12/28/2024 7:00 AM EDT Tomas Abad RN 2. Non-Specific Active Suicidal Thoughts (Past 1 Month) No 12/28/2024 7:00 AM EDT Tomas Abad RN 6. Suicidal Behavior (Lifetime) No 12/28/2024 7:00 AM EDT Tomas Abad RN documented as of this encounter Discharge Instructions * Discharge Instructions* Christian Barrett MD - 12/28/2024 11:03 AM EDT You were seen emergency department for evaluation of low back pain. At this time no further emergent workup is indicated. Please return to ED if your symptoms worsen, change in location, change in severity, new symptoms develop or if you become concerned for your health. It is important to follow-up with your primary care physician [facility] and let them know that you were seen in the emergency department today. Thank you. documented in this encounter Medications at Time of Discharge albuterol 108 (90 Base) MCG/ACT inhaler 02/23/2023 amLODIPine (Norvasc) 10 MG tabletIndications: Primary hypertension,Essen tial hypertension Take 1 tablet (10 mg) by mouth daily. 90 tablet 3 06/22/2024 candesartan (Atacand) 16 MG tabletIndications: Primary hypertension,Essen tial hypertension Take 1 tablet (16 mg) by mouth every evening. 90 tablet 3 06/22/2024 carvedilol (Coreg) 12.5 MG tabletIndications: Primary hypertension,Essen tial hypertension Take 1 tablet (12.5 mg) by mouth 2 (two) times a day with meals. 180 tablet 3 06/22/2024 clonazePAM (KlonoPIN) 0.5 MG tablet Take 1 tablet (0.5 mg) by mouth every night. 01/06/2023 DULoxetine (Cymbalta) [address] capsule Take 1 capsule (60 mg) by mouth 1 (one) time each day in the morning. 01/06/2023 famotidine (Pepcid) 40 MG tablet 09/19/2022 fenofibrate (Triglide) 160 MG tablet 11/04/2022 fluticasone (Flonase) 50 MCG/ACT nasal spray Administer 1 spray into affected nostril(s). levothyroxine (Synthroid, Levoxyl) 75 MCG tablet 10/20/2022 methocarbamol (Robaxin) 500 MG tablet Take 1 tablet by mouth 4 times a day as needed for muscle spasms for up to 10 days. 40 tablet 12/28/2024 oxybutynin XL (Ditropan-XL) 10 MG 24 hr tablet 12/24/2024 documented as of this encounter Miscellaneous Notes * Jayna Chavez RN - 12/28/2024 11:25 AM EDT Images from the original note were not included. [id number] Relieving Back Pain Back pain is a common problem. You can strain back muscles by lifting too much weight or by twisting. Or you can do it by moving the wrong way. Back strain can be painful. And it can take weeks or months to get better. Try these tips to help yourself feel better. They can also help prevent back strains. It is important to try to remain active. Be sure to avoid strenuous activity. But you can start walking and doing daily activities as soon as possible. Ice Ice eases muscle pain and swelling. It helps most during the first 24 to 48 hours after an injury. ? Wrap an ice pack or a bag of frozen peas in a thin towel. Never put ice directly on your skin. ? Place the ice where your back hurts the most. ? Don?t ice for more than 20 minutes at a time. ? You can use ice several times a day. Medicines Wqti-irj-ukrdaab pain relievers include acetaminophen and anti-inflammatory medicines. These include aspirin, naproxen, and ibuprofen. They can help ease slight pain. Some also ease swelling. ? Tell your health care provider about any medicines you are already taking. ? Take medicines only as directed. ? Always talk to your child's health care provider before giving your child or teen aspirin. Manipulation and massage It may help to have a treatment called spinal manipulation. You can go to an osteopathic health care provider or chiropractor for this treatment. Getting a massage or acupuncture may also help. Or you may want to try physical therapy. A physical therapist can set up an exercise program that works to ease your pain. This can also help prevent further injuries. Heat After the first 48 hours, heat can relax sore muscles. And it can improve blood flow. ? Try a warm bath or shower. Or use a heating pad set on low. To prevent a burn, keep a cloth between you and the heating pad. ? Don?t use a heating pad for more than 15 minutes at a time. Never sleep on a heating pad. This can cause auguste if you have diabetes or other conditions that affect how well you can sense heat. Last Reviewed Date: 2024 00:00:00 ?? 4047-2543 [employer]. All rights reserved. This information is not intended as a substitute for professional medical care. Always follow your healthcare professional's instructions. * Zainab Chavezbemarcus Combs RN - 12/28/2024 11:25 AM EDT Images from the original note were not included. 17810 Self-Care for Low Back Pain Most people have low back pain now and then. In many cases, it isn?t serious, and self-care can help. Sometimes low back pain can be a sign of a bigger problem. Call your healthcare provider if your pain returns often or gets worse over time. There are plenty of ways to take care of your back. Get regular exercise, lose any excess weight, and practice good posture. Take a short rest Lying down during the day may be helpful for short periods of time if pain worsens with sitting or standing. It may help to have a pillow under the knees when lying on your back. But, keep in mind, long-term bed rest could be damaging. Reduce pain and swelling Cold reduces swelling. Both cold and heat can reduce pain. Remember to protect your skin by placinga towel between your body and the ice or heat source. ? For the first few days, apply an ice pack for 15 to 20 minutes, several times a day. To make a cold pack, put ice cubes in a plastic bag that seals at the top. A wrapped frozen bag of vegetables can also work as a cold pack. ? After the first few days, try heat for 15 minutes at a time to ease pain. Always make sure the heating pad is wrapped. Never sleep on a heating pad. ? Hjju-kwm-zgornxx medicine can help control pain and swelling. Try aspirin or a nonsteroidal anti-inflammatory drugs (NSAIDs) such as ibuprofen. Exercise Exercise can help your back heal. It also helps your back get stronger and more flexible, preventing any reinjury. Ask your healthcare provider about specific exercises for your back. Use good posture to avoid reinjury ? When moving, bend at the hips and knees. Don?t bend at the waist or twist around. ? When lifting, keep the object close to your body. Lift heavy items using your legs, not your back. Don?t try to lift more than you can handle. ? When sitting, keep your lower back supported. Use a rolled-up towel as needed. Make sure your work area or desk is at the correct height. ? Use a mirror to check your posture when you walk. Stand straight with shoulders back. Ask your healthcare providers for exercises that will improve your posture. When to seek medical care Seek medical care right away if: ? You can't stand or walk ? You have a temperature over 100.4??F ( 38.0??C), or as advised by your healthcare provider ? You have frequent, painful, or bloody urination ? You have severe abdominal pain ? You have a sharp, stabbing pain ? Your pain is constant ? You have pain, tingling, or numbness in your leg ? You have weakness in one or both legs or problems with bladder, bowel, or sexual function. These symptoms should be seen by a healthcare provider right away. This is because they can be caused by compression of the nerve bundle at the base of the spine. ? You feel pain in a new area of your back ? You notice that the pain isn?t decreasing after more than a week ? Your symptoms worsen or new symptoms develop Last Reviewed Date: 2023 00:00:00 ?? [id number] [employer]. All rights reserved. This information is not intended as a substitute for professional medical care. Always follow your healthcare professional's instructions. * Discharge Summary - Christian Barrett MD - 12/28/2024 11:18 AM EDT Hospitalization Admit Date/Time: 12/27/2024 9:43 PM Admitting Attending: jennifer Discharge Date: 12/28/24 Discharge Attending Physician: Moncho Gooden MD PCP name and Address: Leroy Gordon, [employer] [address] [facility] / [place] [id number] Referring provider name and address: No referring provider defined for this encounter. Chief Concern, Brief History of Present Illness, and Hospital Course Leia Moreira is a 79 y.o. female pmh of spinal stenosis, arthrosclerosis, and cauda equina in 2007. Pt reports that she has been experiencing BLE cramping, pain and numbness for approximately 3 years. Pt documents that she has johann seen by pain management for 2.5 years with some relief. Pt notes that the pain has been getting worse which prompted her presentation today. Pt explains that she is having difficultly ambulating secondary to hip and back pain. She describes pain as tightness . Shereports following with NSGY for known spinal stenosis but denies any upcoming plans for intervention. Pt states that she has some difficultly urinating but associates this with intermittent constipation. No saddle anesthesia. PVR was taken in the ED at 200ml. No focal neuro findings. Patient admitted to ED observation for MRI lumbar spine to rule out acute etiology. While in ED observation, patient had an MRI of the L-spine obtained, MRI was consistent with known lumbar spinal disease, patient does not have any signs or symptoms consistent with the acute cord compression. I discussed with the patient next steps does not appear that acute rehab something that is in her best interest, patient has follow up with Neurosurgery scheduled on the , there was no indication to call Neurosurgery at this time. MRI results were relayed to patient, patient states that her ultimately desires to be functional and she is helping with that this visit with the neurosurgery will help her potentially achieve that. Again patient does not have any acute complaints and necessitate further workup in the hospital, given this, patient can be discharged. We will discharge her with Jon to help manage her symptoms at home. Patient was amenable to and agreeable with this plan. Patient was discharged in stable condition. Surgeries and Procedures N/a Medication List . albuterol 108 (90 Base) MCG/ACT inhaler amLODIPine 10 MG tablet Commonly known as: Norvasc Take 1 tablet (10 mg) by mouth daily. candesartan 16 MG tablet Commonly known as: Atacand Take 1 tablet (16 mg) by mouth every evening. carvedilol 12.5 MG tablet Commonly known as: Coreg Take 1 tablet (12.5 mg) by mouth 2 (two) times a day with meals. clonazePAM 0.5 MG tablet Commonly known as: KlonoPIN Take 1 tablet (0.5 mg) by mouth every night. DULoxetine [address] capsule Commonly known as: Cymbalta Take 1 capsule (60 mg) by mouth 1 (one) time each day in the morning. famotidine 40 MG tablet Commonly known as: Pepcid fenofibrate 160 MG tablet Commonly known as: Triglide fluticasone 50 MCG/ACT nasal spray Commonly known as: Flonase Administer 1 spray into affected nostril(s). levothyroxine 75 MCG tablet Commonly known as: Synthroid, Levoxyl Discharge Diagnosis Medical Problems Post Discharge Instructions Please keep scheduled follow up with neurosurgery on 01/01/25 to further evaluate your low back pain. Outpatient Follow-Up Future Appointments Date Time Provider Department Center 01/01/2025 10:00 AM Ashely Guy APRN [facility] 07/05/2025 11:40 AM Devin Monahan MD [facility] [place] Test Results Pending At Discharge Pertinent Physical Exam At Time of Discharge Physical Exam Constitutional: Appearance: Normal appearance. HENT: Head: Normocephalic and atraumatic. Right Ear: External ear normal. Left Ear: External ear normal. Nose: Nose normal. Mouth/Throat: Mouth: Mucous membranes are dry. Eyes: Extraocular Movements: Extraocular movements intact. Pupils: Pupils are equal, round, and reactive to light. Cardiovascular: Rate and Rhythm: Normal rate. Pulses: Normal pulses. Heart sounds: Normal heart sounds. Pulmonary: Effort: Pulmonary effort is normal. Abdominal: General: Abdomen is flat. There is no distension. Tenderness: There is no abdominal tenderness. Musculoskeletal: General: No swelling or tenderness. Normal range of motion. Cervical back: Normal range of motion. Skin: General: Skin is warm. Capillary Refill: Capillary refill takes less than 2 seconds. Coloration: Skin is not jaundiced. Neurological: Mental Status: She is alert and oriented to person, place, and time. Comments: Lower extremity weakness present Psychiatric: Mood and Affect: Mood normal. Behavior: Behavior normal. Discharge Disposition/Condition Disposition: Home Condition: Stable (s/sx potential problems absent or manageable) I spent < 30 minutes of patient care and instruction time in preparation for this discharge. Cosigned by Moncho Gooden MD at 12/29/2024 6:40 AM EDT Associated attestation - Moncho Gooden MD - 12/29/2024 6:40 AM EDT I saw and evaluated the patient with the resident/fellow. I discussed the case with the resident/fellow and agree with the findings and plan as documented. I spent 35 minutes of patient care and instruction time in preparation for this discharge. * NeliP - Agustín Ceballos MD - 12/28/2024 1:48 AM EDT Images from the original note were not included. Subjective Chief complaint Lumbar Back Pain History Of Present Illness Leia Moreira is a 79 y.o. female pmh of spinal stenosis, arthrosclerosis, and cauda equina in 2007. Pt reports that she has been experiencing BLE cramping, pain and numbness for approximately 3 years. Pt documents that she has johann seen by pain management for 2.5 years with some relief. Pt notes that the pain has been getting worse which prompted her presentation today. Pt explains that she is having difficultly ambulating secondary to hip and back pain. She describes pain as tightness . Shereports following with NSGY for known spinal stenosis but denies any upcoming plans for intervention. Pt states that she has some difficultly urinating but associates this with intermittent constipation. No saddle anesthesia. PVR was taken in the ED at 200ml. No focal neuro findings. Patient admitted to ED observation for MRI lumbar spine to rule out acute etiology. Medical/Surgical/Social/Family History I have reviewed and updated the patient history. Travel History Relevant International Travel History: Travel Screening Question Response Have you been in contact with someone who was sick? No / Unsure Do you have any of the following new or worsening symptoms? None of these Have you traveled internationally or domestically in the last month? No Travel History Travel since 11/27/24 No documented travel since 11/27/24 Allergies Evolocumab, Ciprofloxacin, Naproxen, Oxycodone-acetaminophen, Actonel [risedronate], Amlodipine, Cefdinir, Codeine, Hydralazine, Hydromorphone, Lisinopril, Morphine, Sulfa drugs, and Tramadol Medications Current Medications[1] Objective Review of Systems All other systems reviewed and are negative. Physical Exam Constitutional: Appearance: Normal appearance. Cardiovascular: Rate and Rhythm: Normal rate and regular rhythm. Pulses: Normal pulses. Heart sounds: Normal heart sounds. Pulmonary: Effort: Pulmonary effort is normal. Abdominal: Palpations: Abdomen is soft. Tenderness: There is no abdominal tenderness. Musculoskeletal: General: Normal range of motion. Neurological: General: No focal deficit present. Mental Status: She is alert and oriented to person, place, and time. Sensory: No sensory deficit. Motor: No weakness. Psychiatric: Mood and Affect: Mood normal. Behavior: Behavior normal. Last Recorded Vitals Blood pressure (!) 172/79, pulse 80, temperature 36.6 ??C (97.9 ??F), temperature source Oral, resp. rate 16, height 1.651 m (5' 5 ), weight 70.8 kg (156 lb), SpO2 97%. Results Review I have reviewed the latest lab and imaging results. Assessment & Plan Numbness and tingling of both legs Lumbar back pain #Lumbar Back Pain #Lumbar spinal stenosis - Symptoms ongoing for 2-3 years but reports pain is worsening - Describes as tightness. Worse with ambulation. - Still able to ambulate and perform ADLS - Reports known hx of spinal stenosis for which she follows NSGY per patient > No current plans for intervention - CT imaging today consistent with moderate to severe spinal canal stenosis - Patient still urinating appropriately (PVR 200). No saddle anesthesia. Unremarkable neuro exam Plan - MRI lumbar spine - If negative patient is appropriate for discharge with NSGY follow up - Robaxin TID PRN (patient says this is providing some relief) Hypothyroidism - Resume home levothyroxine 75mcg HTN - Resume home candesartan 16mg Diet: Regular DVT PPX: Holding for now. Can consider if hospital stay is prolonged Medically Ready for Discharge:Anticipated Today Agustín Ceballos MD Internal Medicine, PGY-3 [1] No current facility-administered medications for this encounter. Current Outpatient Medications Medication Sig Dispense Refill albuterol 108 (90 Base) MCG/ACT inhaler (Patient not taking: Reported on 03/30/2023) amLODIPine (Norvasc) 10 MG tablet Take 1 tablet (10 mg) by mouth daily. 90 tablet 3 candesartan (Atacand) 16 MG tablet Take 1 tablet (16 mg) by mouth every evening. 90 tablet 3 carvedilol (Coreg) 12.5 MG tablet Take 1 tablet (12.5 mg) by mouth 2 (two) times a day with meals. 180 tablet 3 clonazePAM (KlonoPIN) 0.5 MG tablet Take 1 tablet (0.5 mg) by mouth every night. DULoxetine (Cymbalta) [address] capsule Take 1 capsule (60 mg) by mouth 1 (one) time each day in themorning. famotidine (Pepcid) 40 MG tablet fenofibrate (Triglide) 160 MG tablet fluticasone (Flonase) 50 MCG/ACT nasal spray Administer 1 spray into affected nostril(s). levothyroxine (Synthroid, Levoxyl) 75 MCG tablet Cosigned by Moncho Gooden MD at 12/28/2024 11:49 AM EDT Associated attestation - Moncho Gooden MD - 12/28/2024 11:49 AM EDT I saw and evaluated the patient with the resident/fellow. I discussed the case with the resident/fellow and agree with the findings and plan as documented. I personally spent a total of 35 minutes on this encounter. This time includes face to face with patient, counseling, and discussion and/or coordination of care. * Care Plan - Lyly Bill RN - 12/27/2024 6:56 PM EDT Problem: Adult Inpatient Plan of Care Goal: Plan of Care Review Outcome: Ongoing, Progressing Flowsheets (Taken 12/28/2024224) Progress: improving Plan of Care Reviewed With: patient spouse Goal: Patient-Specific Goal (Individualized) Outcome: Ongoing, Progressing Flowsheets (Taken 12/28/2024224) Patient/Family-Specific Goals (Include Timeframe): Patient will remain free from any falls this shift. Individualized Care Needs: Safety, pain management. Anxieties, Fears or Concerns: Denies Goal: Absence of Hospital-Acquired Illness or Injury Outcome: Ongoing, Progressing Intervention: Identify and Manage Fall Risk Flowsheets (Taken 12/28/2024224) Safety Promotion/Fall Prevention: activity supervised mobility aid in reach assistive device/personal items within reach nonskid shoes/slippers when out of bed clutter-free environment maintained room organization consistent safety round/check completed fall prevention program maintained lighting adjusted toileting scheduled Intervention: Prevent Skin Injury Flowsheets (Taken 12/28/2024224) Body Position: weight shifting Skin Protection: incontinence pads utilized protective footwear used Intervention: Prevent and Manage VTE (Venous Thromboembolism) Risk Flowsheets (Taken 12/28/2024224) VTE Prevention/Management: education provided Intervention: Prevent Infection Flowsheets (Taken 12/28/2024224) Infection Prevention: rest/sleep promoted single patient room provided environmental surveillance performed equipment surfaces disinfected hand hygiene promoted Goal: Optimal Comfort and Wellbeing Outcome: Ongoing, Progressing Intervention: Monitor Pain and Promote Comfort Flowsheets (Taken 12/27/20242199 by Marcus dEwards) Pain Management Interventions: pillow support provided position adjusted pain management plan reviewed with patient/caregiver emotional support care clustered quiet environment facilitated relaxation techniques promoted rest Intervention: Provide Person-Centered Care Flowsheets (Taken 12/28/2024224) Trust Relationship/Rapport: care explained choices provided emotional support provided thoughts/feelings acknowledged empathic listening provided questions answered questions encouraged reassurance provided Problem: Fall Injury Risk Goal: Absence of Fall and Fall-Related Injury Outcome: Ongoing, Progressing Intervention: Identify and Manage Contributors Flowsheets (Taken 12/28/2024224) Self-Care Promotion: BADL personal routines maintained BADL personal objects within reach meal set-up provided Intervention: Promote Injury-Free Environment Flowsheets (Taken 12/28/2024224) Safety Promotion/Fall Prevention: activity supervised mobility aid in reach assistive device/personal items within reach nonskid shoes/slippers when out of bed clutter-free environment maintained room organization consistent safety round/check completed fall prevention program maintained lighting adjusted toileting scheduled Problem: Pain Acute Goal: Optimal Pain Control and Function Outcome: Ongoing, Progressing Intervention: Optimize Psychosocial Wellbeing Flowsheets (Taken 12/28/2024224) Supportive Measures: active listening utilized mindfulness techniques promoted positive reinforcement provided decision-making supported problem-solving facilitated self-care encouraged relaxation techniques promoted verbalization of feelings encouraged self-responsibility promoted self-reflection promoted goal-setting facilitated Diversional Activities: television smartphone Spiritual Activities Assistance: affirmation provided hope instilled personal rituals encouraged spiritual support provided Intervention: Develop Pain Management Plan Flowsheets (Taken 12/27/20242199 by Marcus Edwards) Pain Management Interventions: pillow support provided position adjusted pain management plan reviewed with patient/caregiver emotional support care clustered quiet environment facilitated relaxation techniques promoted rest Intervention: Prevent or Manage Pain Flowsheets (Taken 12/28/2024224) Sensory Stimulation Regulation: care clustered quiet environment promoted television on Bowel Elimination Promotion: adequate fluid intake promoted privacy promoted commode/bedpan at bedside Sleep/Rest Enhancement: awakenings minimized noise level reduced reading promoted regular sleep/rest pattern promoted relaxation techniques promoted natural light exposure provided Problem: Mobility Impairment Goal: Optimal Mobility Outcome: Ongoing, Progressing Intervention: Optimize Mobility Flowsheets (Taken 12/28/2024224) Activity Management: activity adjusted per tolerance activity encouraged education provided * ED Provider Notes - Amanda Vargas PA - 12/27/2024 6:56 PM EDT Images from the original note were not included. - HPI Chief Complaint Patient presents with Multiple Complaints PIT NOTE Leia Moreira is a 79 y.o. female who presents to the ED with multiple complaints. Pt has a hx ofspinal stenosis, arthrosclerosis, and osteopenia. Pt reports that she has been experiencing BLE cramping, pain and numbness for approximately 3 years. Pt documents that she has johann seen by pain management for 2.5 years with some relief. Pt notes that the pain has gotten worse. Pt explains that she is having difficultly ambulating secondary to hip pain. Pt states that she has difficultly urinating. Patient denies fever, chills, congestion and rhinorrhea. Sam PAC (Main ED): Agree with above. She states that she feels the urge to urinate, however has spillage of urine at times, and also at other times has difficulty fully emptying her bladder. Shedenies any loss of sensation in her perineal area. She states that she is able to ambulate, howevernotes pain with doing so. She describes the tingling in her lower extremities as burning . 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 Constitutional: General: She is not in acute distress. Appearance: She is not ill-appearing, toxic-appearing or diaphoretic. HENT: Head: Normocephalic and atraumatic. Comments: No facial swelling Nose: No rhinorrhea. Mouth/Throat: Mouth: Mucous membranes are moist. Eyes: Extraocular Movements: Extraocular movements intact. Cardiovascular: Rate and Rhythm: Normal rate. Pulmonary: Effort: Pulmonary effort is normal. No respiratory distress. Breath sounds: Normal air entry. Comments: Speaking full sentences. Symmetric chest rise Abdominal: General: There is no distension. Palpations: Abdomen is soft. Tenderness: There is no abdominal tenderness. Musculoskeletal: General: No deformity or signs of injury. Normal range of motion. Cervical back: Normal range of motion and neck supple. No rigidity. Comments: She has tenderness to palpation over her bilateral extremities, however no obvious injuryor trauma, she reports it as pins and needles sensation Skin: General: Skin is warm and dry. Neurological: General: No focal deficit present. Mental Status: She is alert and oriented to person, place, and time. GCS: GCS eye subscore is 4. GCS verbal subscore is 5. GCS motor subscore is 6. Motor: Motor function is intact. Gait: Gait is intact. Comments: Awake Psychiatric: Mood and Affect: Mood normal. EASI ?? Total Score: 0 No data recorded Mini Nutritional Screening Score : 14 TRST Assessment Total: 2 ED Course & MDM - Assessment: 79 y.o. female presents to ED with multiple complaints. It should be noted that the chronic conditions includes spinal stenosis, atherosclerosis, previous cauda equina in 2008, which currently is notat goal therapy. This complicates the clinical picture because it Comorbidities: may be exacerbating symptoms and increases the risk for morbidity On initial evaluation, the patient was awake, appropriately conversational, not in any acute distress, and nontoxic in appearance. Hemodynamically stable. She does not have any focal neurologic deficit on examination. She reports pins and needles burning sensation on palpation of her bilateral lower extremities. No saddle anesthesia. She is able to ambulate. Physician in triage ordered CT scans of her cervical spine lumbar spine, and an angio of her abdomen and pelvis. Her workup was overall reassuring, however she persistently had symptoms, and her PVR was 200 mL, so she is having some difficulty with fully emptying her bladder. Given her spine history and symptoms, will attempt to place the patient in ED observation to have an MRI of her L-spine for further evaluation of her symptoms. She was in agreement with this. I had an interactive discussion with the ED observation provider, andthey were agreeable to admit the patient for an MRI. Differential Diagnosis: Spine root compression, claudication, PAD, musculoskeletal pain, sciatica, radicular pain, among others. In order to fully explore the differential diagnosis the following treatments and tests were ordered: ED Medication Administration from 12/27/2024 1856 to 12/28/2024 0208 Date/Time Order Dose Route Action 12/27/2024 2208 EDT iohexol (OMNIPaque) 350 MG/ML injection 100 mL 100 mL Intravenous Given 12/28/2024 0011 EDT methocarbamol (Robaxin) tablet 1,000 mg 1,000 mg Oral Given All Other Orders Ordered Status Ordering Provider 12/28/24 0200 Adult diet Diet texture: Regular Diet effective now Ordered AGUSTÍN CEBALLOS 12/28/24 0119 MR Lumbar Spine w and wo IV Contrast Once Acknowledged AGUSTÍN CEBALLOS 12/27/24 2319 Urinalysis Microscopic Examination Once Final result MONCHO TUCKER I 12/27/24 2304 Bladder scan Once Acknowledged AMANDA VARGAS T 12/27/[address] Angio Abdomen Pelvis Once Final result MONCHO TUCKER I 12/27/[address] Lumbar Spine wo IV Contrast Once Final result MONCHO TUCKER I 12/27/[address] Cervical Spine wo IV Contrast Once Final result MONCHO TUCKER I 12/27/24 2130 CBC w/diff STAT Final result MONCHO TUCKER I 12/27/24 2130 BMP STAT Final result MONCHO TUCKER I 12/27/24 2130 Magnesium STAT Final result MONCHO TUCKER I 12/27/24 2130 Phosphorus STAT Final result MONCHO TUCKER I 12/27/242129 Urinalysis with reflex microscopic AND reflex culture (IF UTI SUSPECTED) STAT Final result MONCHO TUCKER I 12/27/242129 Urinalysis with reflex microscopic (Culture NOT Included) PROCEDURE ONCE Final result MONCHO TUCKER I 12/27/242129 Urine Kapoor Panel PROCEDURE ONCE Final result MONCHO TUCKER I ED Course as of 12/28/24 0208 Cher Dec 27, [id number] WBC: 5.39 [ML] 2245 Hemoglobin: 12.7 [ML] 2245 Magnesium: 2.1 [ML] 2246 BUN: 21 [ML] 2245 Creatinine: 0.97 [ML] 2245 Phosphorus: 3.4 [ML] 2320 Blood, Urine(!): Small [ML] 2320 Leukocytes, Urine: Negative [ML] 2320 Nitrite, Urine: Negative [ML] ED Course User Index [ML] Amanda Vargas, PA Clinical Impressions as of 12/28/24 0208 Numbness and tingling of both legs Lumbar back pain Social Determinates of Health Risks (including Economic Stability, Education and level of understanding, Healthcare access and quality and concerning social factors): Lives far away Ultimately, this patient was Was admitted (Admission) The primary encounter diagnosis was Numbness and tingling of both legs. A diagnosis of Lumbar back pain was also pertinent to this visit.. Patient believed to require admission for the listed diagnoses. The ED Observation service was consulted for admission and was agreeable to admit toED Observation. ED Prescriptions None Disposition Observation Provider Care Team: RAYMON CUELLAR ADULT [56] Are they the primary team?: Yes [1] - Date/Time: 12/27/2024/9:30 PM Scribe Attestation: This note was dictated to me, Bernardino Engle, acting as a scribe for Dr. Tucker. Attending Attestation: The documentation was recorded by Bernardino Engle, acting as scribe in my presence at the time of the encounter and accurately reflects the service I personally performed. [1] Past Medical History: Diagnosis Date Hyperlipidemia Hypertension Hypothyroid IBS (irritable bowel syndrome) Osteopenia Skin cancer Vitamin D deficiency [2] Past Surgical History: Procedure Laterality Date BACK SURGERY HYSTERECTOMY TONSILLECTOMY [3] No family history on file. [4] Tobacco Use Smoking status: Never Passive exposure: Never Smokeless tobacco: Never Substance Use Topics Alcohol use: Never Drug use: Never [5] Allergies Allergen Reactions Evolocumab Swelling Ciprofloxacin Hives Naproxen Nausea And Vomiting and Other - please document in the comment field Also made her feel weak TREMORS Oxycodone-Acetaminophen Nausea Actonel [Risedronate] Unknown - Patient states they do not know rxn details Amlodipine Other - please document in the comment field nausea Cefdinir Other - please document in the comment field Pt stated that the medication gave her cramps and diarrhea. Codeine Unknown - Patient states they do not know rxn details Hydralazine Other - please document in the comment field and Palpitations Seizure activity TREMORS Hydromorphone Other - please document in the comment field Convulsions and jaw locked Lisinopril Cough Morphine Other - please document in the comment field Muscle pain Sulfa Drugs Unknown - Patient states they do not know rxn details Tramadol Other - please document in the comment field Pt states it helps her problem but makes her colon bleed. Amanda Vargas PA 12/28/24 0208 Cosigned by See Richmond MD at 01/04/2025 8:06 AM EDT Associated attestation - See Richmond MD - 01/04/2025 8:06 AM EDT I attest to being involved in providing substantive part of the medical decision making in patient care. * ED Triage Notes - Dex Ceja RN - 12/27/2024 6:56 PM EDT Pt reports numbness/coldness/cramping in BLE for approx 2-3 years. Also reports pain in back/bottom/upper legs. * ED Notes - Jayna Abad RN - 12/27/2024 6:56 PM EDT Pt Iv removed, Discharge education discussed. Pt wheeled out by RN to personal vehicle driven by was waiting to transport her home documented in this encounter Plan of Treatment Upcoming Encounters Date Type Department Care Team (Latest Contact Info) Description 01/23/2025 1:15 PM EDT Pre-Admission Testing [facility] Pre-op Clinic [address] [place] [address] 01/23/2025 2:15 PM EDT Consult [facility] [address] [place] [address] Vikas Green MD [address] [place] [address] [address] 01/23/2025 3:20 PM EDT Clinical Support [facility] Lab [address] [place] [id number] 02/15/2025 12:05 PM EDT Hospital Encounter [facility] [address] [place] [address] Vikas Green MD [address] [facility] [place] [address] 02/15/2025 12:05 PM EDT - 02/15/2025 2:55 PM EDT Surgery [facility] [address] [place] [phone] Vikas Green MD [address] [facility] [place] [address] L2-L5 Lumbar Laminectomy [37804 (CPT )] 07/05/2025 11:40 AM EST [facility] [address] [place] [address] Devin Monahan MD [address] [place] [address] Scheduled Procedures Name Priority Associated Diagnoses Date/Ti me LAMINECTOMY, SPINE, LUMBAR, 1 LEVEL, WITH FORAMINOTOMY OR FACETECTOMY Spinal stenosis of lumbar region with neurogenic claudication 02/15/2025 12:05 PM EDT documented as of this encounter Procedures Procedure Name Priority Date/Time Associated Diagnosis Comments MR LUMBAR SPINE W AND WO IV CONTRAST STAT 12/28/2024 5:45 AM EDT URINALYSIS WITH REFLEX MICROSCOPIC AND CULTURE STAT 12/27/2024 11:02 PM EDT URINE KAPOOR PANEL STAT 12/27/2024 11:0 2 PM EDT URINALYSIS MICROSCOPIC FOR UA REFLEX STAT 12/27/2024 11:02 PM EDT URINALYSIS WITH REFLEX MICROSCOPIC STAT 12/27/2024 11:[address] ANGIO ABDOMEN PELVIS STAT 12/27/2024 10:[address] LUMBAR SPINE WO IV CONTRAST STAT 12/27/2024 10:[address] CERVICAL SPINE WO IV CONTRAST STAT 12/27/2024 10:18 PM EDT CBC WITH AUTO DIFFERENTIAL STAT 12/27/2024 9:37 PM EDT PHOSPHORUS, PLASMA STAT 12/27/2024 9: 37 PM EDT MAGNESIUM, PLASMA STAT 12/27/2024 9:3 7 PM EDT BASIC METABOLIC PANEL, PLASMA STAT 12/27/2024 9:37 PM EDT documented in this encounter Results * MR Lumbar Spine w and wo IV Contrast (12/28/2024 5:45 AM EDT) Anatomical Region Laterality Modality L-spine Magnetic Resonan ce Impressions 12/28/2024 10:03 AM EDT Multilevel degenerative changes resulting in up to moderate spinal canal stenosis at L2-L3 and L3-L4. Severe left neural foraminal stenosis on the left at L4-L5. CRITICAL RESULT: No. COMMUNICATION: Per this written report. Drafted by Yessenia Barbosa MD on 12/28/2024 9:36 AM Final report signed by Yessenia Barbosa MD on 12/28/2024 10:03 AM Narrative 12/28/2024 10:03 AM EDT CLINICAL INDICATION: Low back pain, cauda equina syndrome suspected TECHNIQUE: Multiplanar multiecho sequences were obtained through the lumbar spine utilizing T1 and T2 weighting with and without the administration of intravenous contrast. 7.1mL Gadavist. COMPARISON: Lumbar spine CT 12/27/2024. Lumbar spine MRI 12/23/2022 FINDINGS: Diagnostic Quality: Adequate. Anatomic Variants: None. Alignment: Straightening of lumbar lordosis. Marrow: Modic type I endplate changes at L4-L5. Modic type II endplate changes at L3-L4 Vertebrae and Intervertebral Discs: Vertebral body heights are normal. Intervertebral disc spondylotic change as described below. Spinal Canal and Conus: The conus is of normal caliber without abnormal intrinsic signal. The conus terminates at the L2 level. No abnormal enhancement is present within the spinal canal. Significant findings by level: T12-L1: Minimal disc bulge. Facet arthropathy. No significant spinal canal or neural foraminal stenosis. L1-L2: Disc bulge and facet arthropathy. Mild spinal canal stenosis. No significant neural foraminal stenosis. L2-L3: Disc bulge, facet arthropathy and ligamentum flavum thickening. Moderate spinal canal stenosis. No significant neural foraminal stenosis. L3-L4: Disc bulge, facet arthropathy and mild ligamentum flavum thickening. Moderate spinal canal stenosis. Severe narrowing of the left lateral recess with mass effect on the descending nerve root of L4. Moderate left neural foraminal stenosis. No significant right neural foraminal stenosis. L4-L5: Disc bulge, facet arthropathy and ligamentum flavum thickening. Mild spinal canal stenosis. Mild right and severe left neural foraminal stenosis. L5-S1: Facet arthropathy. No significant spinal canal or neural foraminal stenosis. Prevertebral and Paraspinal Soft Tissues: There is no prevertebral or paraspinal soft tissue swelling or mass. Other Findings: None. Procedure Note Yessenia Barbosa MD - 12/28/2024 CLINICAL INDICATION: Low back pain, cauda equina syndrome suspected TECHNIQUE: Multiplanar multiecho sequences were obtained through the lumbar spineutilizing T1 and T2 weighting with and without the administration ofintravenous contrast. 7.1mL Gadavist. COMPARISON: Lumbar spine CT 12/27/2024. Lumbar spine MRI 12/23/2022 FINDINGS: Diagnostic Quality: Adequate. Anatomic Variants: None. Alignment: Straightening of lumbar lordosis. Marrow: Modic type I endplate changes at L4-L5. Modic type II endplatechanges at L3-L4 Vertebrae and Intervertebral Discs: Vertebral body heights are normal.Intervertebral disc spondylotic change as described below. Spinal Canal and Conus: The conus is of normal caliber without abnormalintrinsic signal. The conus terminates at the L2 level. No abnormalenhancement is present within the spinal canal. Significant findings by level: T12-L1: Minimal disc bulge. Facet arthropathy. No significant spinal canalor neural foraminal stenosis. L1-L2: Disc bulge and facet arthropathy. Mild spinal canal stenosis. Nosignificant neural foraminal stenosis. L2-L3: Disc bulge, facet arthropathy and ligamentum flavum thickening.Moderate spinal canal stenosis. No significant neural foraminalstenosis. L3-L4: Disc bulge, facet arthropathy and mild ligamentum flavumthickening. Moderate spinal canal stenosis. Severe narrowing of the leftlateral recess with mass effect on the descending nerve root of L4.Moderate left neural foraminal stenosis. No significant right neuralforaminal stenosis. L4-L5: Disc bulge, facet arthropathy and ligamentum flavum thickening.Mild spinal canal stenosis. Mild right and severe left neural foraminalstenosis. L5-S1: Facet arthropathy. No significant spinal canal or neural foraminalstenosis. Prevertebral and Paraspinal Soft Tissues: There is no prevertebral orparaspinal soft tissue swelling or mass. Other Findings: None. IMPRESSION: Multilevel degenerative changes resulting in up to moderate spinal canalstenosis at L2-L3 and L3-L4. Severe left neural foraminal stenosis on theleft at L4-L5. CRITICAL RESULT: No. COMMUNICATION: Per this written report. Drafted by Yessenia Barbosa MD on 12/28/2024 9:36 AM Final report signed by Yessenia Barbosa MD on 12/28/2024 10:03 AM Moncho Gooden MD IMG MRI PROCEDURES Cindy l Result * Urinalysis Microscopic Examination (12/27/2024 11:02 PM EDT) Urine Urine specimen obtained by clean catch procedure / Unknown Non-blood Collection / Unknown 12/27/2024 11:02 PM EDT 12/27/2024 11:16 PM EDT Moncho Tucker MD LAB URINE ORDERABLES Final Result Performing Organization Address City/[facility]/ZIP Co de Phone Number [facility] [address] [place] [address] * Urine Kapoor Panel (12/27/2024 11:02 PM EDT) Extra Reflex urine culture not indicated 12/28/2024 1:04 AM EDT [facility] Urine Urine specimen obtained by clean catch procedure / Unknown Non-blood Collection / Unknown 12/27/2024 11:02 PM EDT 12/27/2024 11:28 PM EDT Moncho Tucker MD LAB URINE ORDERABLES Final Result Performing Organization Address City/[facility]/ZIP Co de Phone Number [facility] [address] [place] [address] * (ABNORMAL) Urinalysis with reflex microscopic (Culture NOT Included) (12/27/2024 11:02 PM EDT) Color, Urine Yellow LAB URINALYSIS - AUTOMATED METHOD 12/27/2024 11:53 PM EDT [facility] Clarity, Urine Clear LAB URINALYSIS - AUTOMATED METHOD 12/27/2024 11:53 PM EDT [facility] Spec [place], Urine 1.021 1.005 - 1.030 LAB URINALYSIS - AUTOMATED METHOD 12/27/2024 11:53 PM EDT [facility] pH, Urine 6.5 5.0 - 8.0 LAB URINALYSIS - AUTOMATED METHOD 12/27/2024 11:53 PM EDT [facility] Protein, Urine Negative Negative mg/dL LAB URINALYSIS - AUTOMATED METHOD 12/27/2024 11:53 PM EDT [facility] Glucose, Urine Negative Negative mg/dL LAB URINALYSIS - AUTOMATED METHOD 12/27/2024 11:53 PM EDT [facility] Ketones, Urine Negative Negative mg/dL LAB URINALYSIS - AUTOMATED METHOD 12/27/2024 11:53 PM EDT [facility] Blood, Urine Small(A) Negative LAB URINALYSIS - AUTOMATED METHOD 12/27/2024 11:53 PM EDT [facility] Bilirubin, Urine Negative Negative LAB URINALYSIS - AUTOMATED METHOD 12/27/2024 11:53 PM EDT [facility] Urobilinogen, Urine 0.2 0.2 to 1.0 mg/dL LAB URINALYSIS - AUTOMATED METHOD 12/27/2024 11:53 PM EDT [facility] Leukocytes, Urine Negative Negative LAB URINALYSIS - AUTOMATED METHOD 12/27/2024 11:53 PM EDT [facility] Nitrite, Urine Negative Negative LAB URINALYSIS - AUTOMATED METHOD 12/27/2024 11:53 PM EDT [facility] RBC, Urine <1 0 to 3 /HPF LAB URINALYSIS - AUTOMATED METHOD 12/27/2024 11:53 PM EDT [facility] Comment:This result was prev iously suppressed from the chart. WBC, Urine 0 - 5 0 to 5 /HPF LAB URINALYSIS - AUTOMATED METHOD 12/27/2024 11:53 PM EDT [facility] Comment:This result was prev iously suppressed from the chart. Squamous Epithelial Cells 0 - 2 0 to 5 /HPF LAB URINALYSIS - AUTOMATED METHOD 12/27/2024 11:53 PM EDT [facility] Comment:This result was prev iously suppressed from the chart. Hyaline Casts 0 - 2 0 to 5 /LPF LAB URINALYSIS - AUTOMATED METHOD 12/27/2024 11:53 PM EDT [facility] Comment:This result was prev iously suppressed from the chart. Bacteria, Urine Negative Negative LAB URINALYSIS - AUTOMATED METHOD 12/27/2024 11:53 PM EDT [facility] Comment:This result was prev iously suppressed from the chart. Urine Urine specimen obtained by clean catch procedure / Unknown Non-blood Collection / Unknown 12/27/2024 11:02 PM EDT 12/27/2024 11:16 PM EDT Moncho Tucker MD LAB URINE ORDERABLES Final Result [facility] [address] [place] [address] * CT Angio Abdomen Pelvis (12/27/2024 10:18 PM EDT) Anatomical Region Laterality Modality Abdomen, Pelvis Computed Tomogra phy Impressions 12/27/2024 11:39 PM EDT 1. Vascular structures are unremarkable. Calcific arteriosclerotic disease without high-grade stenosis occlusions or large central filling defects. 2. No acute abnormality in the abdomen or pelvis. Possibly a combination of hemangiomas and cysts in the solid organs. Thickening of the wall of the stomach large and small bowel possibly due to lack of distention. Cervical spine: No acute fracture or traumatic subluxation. Lumbar spine: degenerative and postsurgical changes with moderate and severe spinal canal stenosis. Chronic compression injury superior endplate L2. Mild compression injuries and/or deformity superior endplate L5 probably chronic but is not specific regarding his age. Probably a Schmorl's node left posterior. Chronic appearing Schmorl's node superior endplate of T10. CRITICAL RESULT: No. COMMUNICATION: Per this written report. Drafted by Maddy Ryder MD on 12/27/2024 11:17 PM Final report signed by Maddy Ryder MD on 12/27/2024 11:39 PM Narrative 12/27/2024 11:39 PM EDT CLINICAL INDICATION: Neck pain, acute, prior cervical surgery Leia Moreira is a 79 y.o. female who presents to the ED with multiple complaints. Pt has a hx of spinal stenosis, arthrosclerosis, and osteopenia. Pt reports that she has been experiencing BLE cramping, pain and numbness for approximately 3 years. Pt documents that she has johann seen by pain management for 2.5 years with some relief. Pt notes that the pain has gotten worse. Pt explains that she is having difficultly ambulating secondary to hip pain. Pt states that she has difficultly urinating. Patient denies fever, chills, congestion and rhinorrhea. TECHNIQUE: CT scan of the cervical spine without contrast with subsequent multiplanar reconstructions. CT scan lumbar spine without contrast with subsequent multiplanar reconstructions. [Does not appear to be reconstructed from the CTA injury exam.] Imaging of the abdomen and pelvis was performed, from lower chest through pubic symphysis, using spiral technique, following administration of IV contrast, Omnipaque 350, 100 mL according to the CTA Abdomen/Pelvis protocol. Reformatted images in the coronal, sagittal, and oblique planes were generated from the axial data set to facilitate diagnostic accuracy. In addition, 3D images were created and reviewed. Total DLP (Dose-Length Product): 2981.63 mGy.cm (accession [id number]), 2981.63 mGy.cm (accession [id number]), 2981.63 mGy.cm (accession [id number]). Please note: The reported value represents the total of one or more individual components during the CT acquisition on this date and at this time, and as such, the same value may appear in more than one CT report depending on the interpreting/reporting physicians. COMPARISON: MRI of the lumbar spine November 2022. FINDINGS: CT scan of cervical spine: Straightening of the cervical lordosis with mild hypertrophic and degenerative changes. No acute fracture or traumatic subluxation. Minimal dextroconvexity at the lower cervical spine. Probably no more than mild degenerative spinal canal stenosis. No evidence of an apical pneumothorax. Lumbar spine: Chronic burst compression fracture at the superior endplate of L2 with mild, similar loss of height compared to November 2022. There is minimal retropulsion. Straightening of the normal lumbar lordosis with minimal reversal of the lumbar lordosis at L3-L4. Minimal dextroconvexity at L3-L4. There is a mild asymmetric left-sided compression deformity at the superior endplate of L5 with mild sclerosis to the left side uses November in appearance. There are no acute compression fractures or traumatic subluxation of the vertebra. Subtle central indentation of the superior endplate of L5 ON minimal compression injury or Schmorl's node slightly asymmetric left side. Probably chronic but nonspecific. Correlate clinically if there is any acute pain. There is moderate degenerative facet arthritis and lumbar spine. There is thickening or redundancy of the ligamentum flavum. There is some ossification of ligamentum flavum and some hypertrophic changes associated with facet arthritis. L1-L2. Degenerative disc bulge. Hypertrophic changes in the posterior elements. Minimal retropulsion at the posterior superior margin of L2. Moderate flattening of the thecal sac from anterior to posterior. L2-L3. Moderate circumferential disc bulge. Hypertrophic facet arthritis. Ossification of ligamentum flavum. Severe spinal canal stenosis. L3-L4. Prior right-sided laminectomy. Circumferential disc bulge. Hypertrophic changes in the posterior elements. Severe spinal canal stenosis in the left side and moderate spinal canal stenosis to the right. L4-L5 moderate disc bulge thickening of the ligamentum flavum probably at least moderate spinal canal stenosis. L5-S1 disc bulge with moderate or mild to moderate flattening of the thecal sac. CTA abdomen and pelvis. Vessels: Mild arteriosclerotic disease of the aorta and branches of the aorta without high-grade stenosis or occlusions or large central filling defects. Lung Bases: The lung bases are clear. Small probably lung cyst lucency posterior lateral right costophrenic angle. Liver/Gallbladder/Biliary System: 2 foci of focal hyperenhancement on the arterial phase images in 2 additional tiny foci of hyperenhancement which is faintly visualized on the delayed images for example one of these areas is seen on image 63 series 10. Differential includes hemangiomas.. Gallbladder is absent. No intra- or extra-hepatic biliary ductal dilatation. Spleen: Small foci of low attenuation in the spleen probably small cysts. The spleen enhances homogeneously. Pancreas: The pancreas enhances homogeneously. Adrenals: The adrenals are morphologically unremarkable. Kidneys: Multiple foci of low attenuation is displacement in the kidneys. One of these in the left kidney image 84 series 10 demonstrates some rim calcification. Probably combination of simple and mildly complex renal cysts. The kidneys demonstrate symmetric nephrogram and excretion. No renal or ureteral calculi. No hydronephrosis. Bowel/Mesentery: The small bowel loops are not dilated. The large bowel loops are not dilated. Appendix is not definitely identified. There is mild thickening of the wall of the distal large bowel sigmoid colon and rectum probably due to lack of distention. Stomach is decompressed with associated wall thickening. Lymph Nodes: No lymphadenopathy within the abdomen or pelvis. Fluid Survey: No free fluid in the abdomen. No free fluid in the pelvis. Pelvis: The pelvic viscera are unremarkable. Body Wall: Normal. Bones: No acute fracture within the abdomen or pelvis. Procedure Note Maddy Ryder MD - 12/27/2024 CLINICAL INDICATION: Neck pain, acute, prior cervical surgery Leia Moreira is a 79 y.o. female who presents to the ED with multiplecomplaints. Pt has a hx of spinal stenosis, arthrosclerosis, andosteopenia. Pt reports that she has been experiencing BLE cramping, painand numbness for approximately 3 years. Pt documents that she has johann seenby pain management for 2.5 years with some relief. Pt notes that the painhas gotten worse. Pt explains that she is having difficultly ambulatingsecondary to hip pain. Pt states that she has difficultly urinating. Patient denies fever, chills, congestion and rhinorrhea. TECHNIQUE: CT scan of the cervical spine without contrast with subsequent multiplanarreconstructions. CT scan lumbar spine without contrast with subsequent multiplanarreconstructions. [Does not appear to be reconstructed from the CTA injuryexam.] Imaging of the abdomen and pelvis was performed, from lower chest throughpubic symphysis, using spiral technique, following administration of IVcontrast, Omnipaque 350, 100 mL according to the CTA Abdomen/Pelvisprotocol. Reformatted images in the coronal, sagittal, and oblique planeswere generated from the axial data set to facilitate diagnostic accuracy.In addition, 3D images were created and reviewed. Total DLP (Dose-Length Product): 2981.63 mGy.cm (accession [id number]),2981.63 mGy.cm (accession [id number]), 2981.63 mGy.cm (accession [id number]).Please note: The reported value represents the total of one or moreindividual components during the CT acquisition on this date and at thistime, and as such, the same value may appear in more than one CT reportdepending on the interpreting/reporting physicians. COMPARISON: MRI of the lumbar spine November 2022. FINDINGS: CT scan of cervical spine: Straightening of the cervical lordosis withmild hypertrophic and degenerative changes. No acute fracture or traumaticsubluxation. Minimal dextroconvexity at the lower cervical spine. Probablyno more than mild degenerative spinal canal stenosis. No evidence of anapical pneumothorax. Lumbar spine: Chronic burst compression fracture at the superior endplateof L2 with mild, similar loss of height compared to November 2022. There isminimal retropulsion. Straightening of the normal lumbar lordosis withminimal reversal of the lumbar lordosis at L3-L4. Minimal dextroconvexityat L3-L4. There is a mild asymmetric left-sided compression deformity atthe superior endplate of L5 with mild sclerosis to the left side usesAugust chronic in appearance. There are no acute compression fractures ortraumatic subluxation of the vertebra. Subtle central indentation of thesuperior endplate of L5 ON minimal compression injury or Schmorl's nodeslightly asymmetric left side. Probably chronic but nonspecific. Correlateclinically if there is any acute pain. There is moderate degenerative facet arthritis and lumbar spine. There isthickening or redundancy of the ligamentum flavum. There is someossification of ligamentum flavum and some hypertrophic changes associatedwith facet arthritis. L1-L2. Degenerative disc bulge. Hypertrophic changes in the posteriorelements. Minimal retropulsion at the posterior superior margin of L2.Moderate flattening of the thecal sac from anterior to posterior. L2-L3. Moderate circumferential disc bulge. Hypertrophic facet arthritis.Ossification of ligamentum flavum. Severe spinal canal stenosis. L3-L4. Prior right-sided laminectomy. Circumferential disc bulge.Hypertrophic changes in the posterior elements. Severe spinal canalstenosis in the left side and moderate spinal canal stenosis to theright. L4-L5 moderate disc bulge thickening of the ligamentum flavum probably atleast moderate spinal canal stenosis. L5-S1 disc bulge with moderate or mild to moderate flattening of thethecal sac. CTA abdomen and pelvis. Vessels: Mild arteriosclerotic disease of the aorta and branches of theaorta without high-grade stenosis or occlusions or large central fillingdefects. Lung Bases: The lung bases are clear. Small probably lung cyst lucencyposterior lateral right costophrenic angle. Liver/Gallbladder/Biliary System: 2 foci of focal hyperenhancement on thearterial phase images in 2 additional tiny foci of hyperenhancement whichis faintly visualized on the delayed images for example one of these areasis seen on image 63 series 10. Differential includes hemangiomas..Gallbladder is absent. No intra- or extra- hepatic biliary ductaldilatation. Spleen: Small foci of low attenuation in the spleen probably small cysts.The spleen enhances homogeneously. Pancreas: The pancreas enhances homogeneously. Adrenals: The adrenals are morphologically unremarkable. Kidneys: Multiple foci of low attenuation is displacement in the kidneys.One of these in the left kidney image 84 series 10 demonstrates some rimcalcification. Probably combination of simple and mildly complex renalcysts. The kidneys demonstrate symmetric nephrogram and excretion. Norenal or ureteral calculi. No hydronephrosis. Bowel/Mesentery: The small bowel loops are not dilated. The large bowelloops are not dilated. Appendix is not definitely identified. There ismild thickening of the wall of the distal large bowel sigmoid colon andrectum probably due to lack of distention. Stomach is decompressed withassociated wall thickening. Lymph Nodes: No lymphadenopathy within the abdomen or pelvis. Fluid Survey: No free fluid in the abdomen. No free fluid in the pelvis. Pelvis: The pelvic viscera are unremarkable. Body Wall: Normal. Bones: No acute fracture within the abdomen or pelvis. IMPRESSION: 1. Vascular structures are unremarkable. Calcific arteriosclerotic diseasewithout high-grade stenosis occlusions or large central filling defects. 2. No acute abnormality in the abdomen or pelvis. Possibly a combinationof hemangiomas and cysts in the solid organs. Thickening of the wall ofthe stomach large and small bowel possibly due to lack of distention. Cervical spine: No acute fracture or traumatic subluxation. Lumbar spine: degenerative and postsurgical changes with moderate andsevere spinal canal stenosis. Chronic compression injury superior endplate L2. Mild compression injuries and/or deformity superior endplate L5 probablychronic but is not specific regarding his age. Probably a Schmorl's nodeleft posterior. Chronic appearing Schmorl's node superior endplate ofT10. CRITICAL RESULT: No. COMMUNICATION: Per this written report. Drafted by Maddy Ryder MD on 12/27/2024 11:17 PM Final report signed by Maddy Ryder MD on 12/27/2024 11:39 PM us Moncho Tucker MD IMG CT PROCEDURES Final Re sult * CT Lumbar Spine wo IV Contrast (12/27/2024 10:18 PM EDT) Anatomical Region Laterality Modality Spine, L-spine Computed Tomogra phy Impressions 12/27/2024 11:39 PM EDT 1. Vascular structures are unremarkable. Calcific arteriosclerotic disease without high-grade stenosis occlusions or large central filling defects. 2. No acute abnormality in the abdomen or pelvis. Possibly a combination of hemangiomas and cysts in the solid organs. Thickening of the wall of the stomach large and small bowel possibly due to lack of distention. Cervical spine: No acute fracture or traumatic subluxation. Lumbar spine: degenerative and postsurgical changes with moderate and severe spinal canal stenosis. Chronic compression injury superior endplate L2. Mild compression injuries and/or deformity superior endplate L5 probably chronic but is not specific regarding his age. Probably a Schmorl's node left posterior. Chronic appearing Schmorl's node superior endplate of T10. CRITICAL RESULT: No. COMMUNICATION: Per this written report. Drafted by Maddy Ryder MD on 12/27/2024 11:17 PM Final report signed by Maddy Ryder MD on 12/27/2024 11:39 PM Narrative 12/27/2024 11:39 PM EDT CLINICAL INDICATION: Neck pain, acute, prior cervical surgery Leia Moreira is a 79 y.o. female who presents to the ED with multiple complaints. Pt has a hx of spinal stenosis, arthrosclerosis, and osteopenia. Pt reports that she has been experiencing BLE cramping, pain and numbness for approximately 3 years. Pt documents that she has johann seen by pain management for 2.5 years with some relief. Pt notes that the pain has gotten worse. Pt explains that she is having difficultly ambulating secondary to hip pain. Pt states that she has difficultly urinating. Patient denies fever, chills, congestion and rhinorrhea. TECHNIQUE: CT scan of the cervical spine without contrast with subsequent multiplanar reconstructions. CT scan lumbar spine without contrast with subsequent multiplanar reconstructions. [Does not appear to be reconstructed from the CTA injury exam.] Imaging of the abdomen and pelvis was performed, from lower chest through pubic symphysis, using spiral technique, following administration of IV contrast, Omnipaque 350, 100 mL according to the CTA Abdomen/Pelvis protocol. Reformatted images in the coronal, sagittal, and oblique planes were generated from the axial data set to facilitate diagnostic accuracy. In addition, 3D images were created and reviewed. Total DLP (Dose-Length Product): 2981.63 mGy.cm (accession [id number]), 2981.63 mGy.cm (accession [id number]), 2981.63 mGy.cm (accession [id number]). Please note: The reported value represents the total of one or more individual components during the CT acquisition on this date and at this time, and as such, the same value may appear in more than one CT report depending on the interpreting/reporting physicians. COMPARISON: MRI of the lumbar spine November 2022. FINDINGS: CT scan of cervical spine: Straightening of the cervical lordosis with mild hypertrophic and degenerative changes. No acute fracture or traumatic subluxation. Minimal dextroconvexity at the lower cervical spine. Probably no more than mild degenerative spinal canal stenosis. No evidence of an apical pneumothorax. Lumbar spine: Chronic burst compression fracture at the superior endplate of L2 with mild, similar loss of height compared to November 2022. There is minimal retropulsion. Straightening of the normal lumbar lordosis with minimal reversal of the lumbar lordosis at L3-L4. Minimal dextroconvexity at L3-L4. There is a mild asymmetric left-sided compression deformity at the superior endplate of L5 with mild sclerosis to the left side uses November chronic in appearance. There are no acute compression fractures or traumatic subluxation of the vertebra. Subtle central indentation of the superior endplate of L5 ON minimal compression injury or Schmorl's node slightly asymmetric left side. Probably chronic but nonspecific. Correlate clinically if there is any acute pain. There is moderate degenerative facet arthritis and lumbar spine. There is thickening or redundancy of the ligamentum flavum. There is some ossification of ligamentum flavum and some hypertrophic changes associated with facet arthritis. L1-L2. Degenerative disc bulge. Hypertrophic changes in the posterior elements. Minimal retropulsion at the posterior superior margin of L2. Moderate flattening of the thecal sac from anterior to posterior. L2-L3. Moderate circumferential disc bulge. Hypertrophic facet arthritis. Ossification of ligamentum flavum. Severe spinal canal stenosis. L3-L4. Prior right-sided laminectomy. Circumferential disc bulge. Hypertrophic changes in the posterior elements. Severe spinal canal stenosis in the left side and moderate spinal canal stenosis to the right. L4-L5 moderate disc bulge thickening of the ligamentum flavum probably at least moderate spinal canal stenosis. L5-S1 disc bulge with moderate or mild to moderate flattening of the thecal sac. CTA abdomen and pelvis. Vessels: Mild arteriosclerotic disease of the aorta and branches of the aorta without high-grade stenosis or occlusions or large central filling defects. Lung Bases: The lung bases are clear. Small probably lung cyst lucency posterior lateral right costophrenic angle. Liver/Gallbladder/Biliary System: 2 foci of focal hyperenhancement on the arterial phase images in 2 additional tiny foci of hyperenhancement which is faintly visualized on the delayed images for example one of these areas is seen on image 63 series 10. Differential includes hemangiomas.. Gallbladder is absent. No intra- or extra-hepatic biliary ductal dilatation. Spleen: Small foci of low attenuation in the spleen probably small cysts. The spleen enhances homogeneously. Pancreas: The pancreas enhances homogeneously. Adrenals: The adrenals are morphologically unremarkable. Kidneys: Multiple foci of low attenuation is displacement in the kidneys. One of these in the left kidney image 84 series 10 demonstrates some rim calcification. Probably combination of simple and mildly complex renal cysts. The kidneys demonstrate symmetric nephrogram and excretion. No renal or ureteral calculi. No hydronephrosis. Bowel/Mesentery: The small bowel loops are not dilated. The large bowel loops are not dilated. Appendix is not definitely identified. There is mild thickening of the wall of the distal large bowel sigmoid colon and rectum probably due to lack of distention. Stomach is decompressed with associated wall thickening. Lymph Nodes: No lymphadenopathy within the abdomen or pelvis. Fluid Survey: No free fluid in the abdomen. No free fluid in the pelvis. Pelvis: The pelvic viscera are unremarkable. Body Wall: Normal. Bones: No acute fracture within the abdomen or pelvis. Procedure Note Maddy Ryder MD - 12/27/2024 CLINICAL INDICATION: Neck pain, acute, prior cervical surgery Leia Moreira is a 79 y.o. female who presents to the ED with multiplecomplaints. Pt has a hx of spinal stenosis, arthrosclerosis, andosteopenia. Pt reports that she has been experiencing BLE cramping, painand numbness for approximately 3 years. Pt documents that she has johann seenby pain management for 2.5 years with some relief. Pt notes that the painhas gotten worse. Pt explains that she is having difficultly ambulatingsecondary to hip pain. Pt states that she has difficultly urinating. Patient denies fever, chills, congestion and rhinorrhea. TECHNIQUE: CT scan of the cervical spine without contrast with subsequent multiplanarreconstructions. CT scan lumbar spine without contrast with subsequent multiplanarreconstructions. [Does not appear to be reconstructed from the CTA injuryexam.] Imaging of the abdomen and pelvis was performed, from lower chest throughpubic symphysis, using spiral technique, following administration of IVcontrast, Omnipaque 350, 100 mL according to the CTA Abdomen/Pelvisprotocol. Reformatted images in the coronal, sagittal, and oblique planeswere generated from the axial data set to facilitate diagnostic accuracy.In addition, 3D images were created and reviewed. Total DLP (Dose-Length Product): 2981.63 mGy.cm (accession [id number]),2981.63 mGy.cm (accession [id number]), 2981.63 mGy.cm (accession [id number]).Please note: The reported value represents the total of one or moreindividual components during the CT acquisition on this date and at thistime, and as such, the same value may appear in more than one CT reportdepending on the interpreting/reporting physicians. COMPARISON: MRI of the lumbar spine November 2022. FINDINGS: CT scan of cervical spine: Straightening of the cervical lordosis withmild hypertrophic and degenerative changes. No acute fracture or traumaticsubluxation. Minimal dextroconvexity at the lower cervical spine. Probablyno more than mild degenerative spinal canal stenosis. No evidence of anapical pneumothorax. Lumbar spine: Chronic burst compression fracture at the superior endplateof L2 with mild, similar loss of height compared to November 2022. There isminimal retropulsion. Straightening of the normal lumbar lordosis withminimal reversal of the lumbar lordosis at L3-L4. Minimal dextroconvexityat L3-L4. There is a mild asymmetric left-sided compression deformity atthe superior endplate of L5 with mild sclerosis to the left side usesAugust chronic in appearance. There are no acute compression fractures ortraumatic subluxation of the vertebra. Subtle central indentation of thesuperior endplate of L5 ON minimal compression injury or Schmorl's nodeslightly asymmetric left side. Probably chronic but nonspecific. Correlateclinically if there is any acute pain. There is moderate degenerative facet arthritis and lumbar spine. There isthickening or redundancy of the ligamentum flavum. There is someossification of ligamentum flavum and some hypertrophic changes associatedwith facet arthritis. L1-L2. Degenerative disc bulge. Hypertrophic changes in the posteriorelements. Minimal retropulsion at the posterior superior margin of L2.Moderate flattening of the thecal sac from anterior to posterior. L2-L3. Moderate circumferential disc bulge. Hypertrophic facet arthritis.Ossification of ligamentum flavum. Severe spinal canal stenosis. L3-L4. Prior right-sided laminectomy. Circumferential disc bulge.Hypertrophic changes in the posterior elements. Severe spinal canalstenosis in the left side and moderate spinal canal stenosis to theright. L4-L5 moderate disc bulge thickening of the ligamentum flavum probably atleast moderate spinal canal stenosis. L5-S1 disc bulge with moderate or mild to moderate flattening of thethecal sac. CTA abdomen and pelvis. Vessels: Mild arteriosclerotic disease of the aorta and branches of theaorta without high-grade stenosis or occlusions or large central fillingdefects. Lung Bases: The lung bases are clear. Small probably lung cyst lucencyposterior lateral right costophrenic angle. Liver/Gallbladder/Biliary System: 2 foci of focal hyperenhancement on thearterial phase images in 2 additional tiny foci of hyperenhancement whichis faintly visualized on the delayed images for example one of these areasis seen on image 63 series 10. Differential includes hemangiomas..Gallbladder is absent. No intra- or extra- hepatic biliary ductaldilatation. Spleen: Small foci of low attenuation in the spleen probably small cysts.The spleen enhances homogeneously. Pancreas: The pancreas enhances homogeneously. Adrenals: The adrenals are morphologically unremarkable. Kidneys: Multiple foci of low attenuation is displacement in the kidneys.One of these in the left kidney image 84 series 10 demonstrates some rimcalcification. Probably combination of simple and mildly complex renalcysts. The kidneys demonstrate symmetric nephrogram and excretion. Norenal or ureteral calculi. No hydronephrosis. Bowel/Mesentery: The small bowel loops are not dilated. The large bowelloops are not dilated. Appendix is not definitely identified. There ismild thickening of the wall of the distal large bowel sigmoid colon andrectum probably due to lack of distention. Stomach is decompressed withassociated wall thickening. Lymph Nodes: No lymphadenopathy within the abdomen or pelvis. Fluid Survey: No free fluid in the abdomen. No free fluid in the pelvis. Pelvis: The pelvic viscera are unremarkable. Body Wall: Normal. Bones: No acute fracture within the abdomen or pelvis. IMPRESSION: 1. Vascular structures are unremarkable. Calcific arteriosclerotic diseasewithout high-grade stenosis occlusions or large central filling defects. 2. No acute abnormality in the abdomen or pelvis. Possibly a combinationof hemangiomas and cysts in the solid organs. Thickening of the wall ofthe stomach large and small bowel possibly due to lack of distention. Cervical spine: No acute fracture or traumatic subluxation. Lumbar spine: degenerative and postsurgical changes with moderate andsevere spinal canal stenosis. Chronic compression injury superior endplate L2. Mild compression injuries and/or deformity superior endplate L5 probablychronic but is not specific regarding his age. Probably a Schmorl's nodeleft posterior. Chronic appearing Schmorl's node superior endplate ofT10. CRITICAL RESULT: No. COMMUNICATION: Per this written report. Drafted by Maddy Ryder MD on 12/27/2024 11:17 PM Final report signed by Maddy Ryder MD on 12/27/2024 11:39 PM Moncho Tucker MD IMG CT PROCEDURES Final Re sult * CT Cervical Spine wo IV Contrast (12/27/2024 10:18 PM EDT) Anatomical Region Laterality Modality Spine, C-spine Computed Tomogra phy Impressions 12/27/2024 11:39 PM EDT 1. Vascular structures are unremarkable. Calcific arteriosclerotic disease without high-grade stenosis occlusions or large central filling defects. 2. No acute abnormality in the abdomen or pelvis. Possibly a combination of hemangiomas and cysts in the solid organs. Thickening of the wall of the stomach large and small bowel possibly due to lack of distention. Cervical spine: No acute fracture or traumatic subluxation. Lumbar spine: degenerative and postsurgical changes with moderate and severe spinal canal stenosis. Chronic compression injury superior endplate L2. Mild compression injuries and/or deformity superior endplate L5 probably chronic but is not specific regarding his age. Probably a Schmorl's node left posterior. Chronic appearing Schmorl's node superior endplate of T10. CRITICAL RESULT: No. COMMUNICATION: Per this written report. Drafted by Maddy Ryder MD on 12/27/2024 11:17 PM Final report signed by Maddy Ryder MD on 12/27/2024 11:39 PM Narrative 12/27/2024 11:39 PM EDT CLINICAL INDICATION: Neck pain, acute, prior cervical surgery Leia Moreira is a 79 y.o. female who presents to the ED with multiple complaints. Pt has a hx of spinal stenosis, arthrosclerosis, and osteopenia. Pt reports that she has been experiencing BLE cramping, pain and numbness for approximately 3 years. Pt documents that she has johann seen by pain management for 2.5 years with some relief. Pt notes that the pain has gotten worse. Pt explains that she is having difficultly ambulating secondary to hip pain. Pt states that she has difficultly urinating. Patient denies fever, chills, congestion and rhinorrhea. TECHNIQUE: CT scan of the cervical spine without contrast with subsequent multiplanar reconstructions. CT scan lumbar spine without contrast with subsequent multiplanar reconstructions. [Does not appear to be reconstructed from the CTA injury exam.] Imaging of the abdomen and pelvis was performed, from lower chest through pubic symphysis, using spiral technique, following administration of IV contrast, Omnipaque 350, 100 mL according to the CTA Abdomen/Pelvis protocol. Reformatted images in the coronal, sagittal, and oblique planes were generated from the axial data set to facilitate diagnostic accuracy. In addition, 3D images were created and reviewed. Total DLP (Dose-Length Product): 2981.63 mGy.cm (accession [id number]), 2981.63 mGy.cm (accession [id number]), 2981.63 mGy.cm (accession [id number]). Please note: The reported value represents the total of one or more individual components during the CT acquisition on this date and at this time, and as such, the same value may appear in more than one CT report depending on the interpreting/reporting physicians. COMPARISON: MRI of the lumbar spine November 2022. FINDINGS: CT scan of cervical spine: Straightening of the cervical lordosis with mild hypertrophic and degenerative changes. No acute fracture or traumatic subluxation. Minimal dextroconvexity at the lower cervical spine. Probably no more than mild degenerative spinal canal stenosis. No evidence of an apical pneumothorax. Lumbar spine: Chronic burst compression fracture at the superior endplate of L2 with mild, similar loss of height compared to November 2022. There is minimal retropulsion. Straightening of the normal lumbar lordosis with minimal reversal of the lumbar lordosis at L3-L4. Minimal dextroconvexity at L3-L4. There is a mild asymmetric left-sided compression deformity at the superior endplate of L5 with mild sclerosis to the left side uses November chronic in appearance. There are no acute compression fractures or traumatic subluxation of the vertebra. Subtle central indentation of the superior endplate of L5 ON minimal compression injury or Schmorl's node slightly asymmetric left side. Probably chronic but nonspecific. Correlate clinically if there is any acute pain. There is moderate degenerative facet arthritis and lumbar spine. There is thickening or redundancy of the ligamentum flavum. There is some ossification of ligamentum flavum and some hypertrophic changes associated with facet arthritis. L1-L2. Degenerative disc bulge. Hypertrophic changes in the posterior elements. Minimal retropulsion at the posterior superior margin of L2. Moderate flattening of the thecal sac from anterior to posterior. L2-L3. Moderate circumferential disc bulge. Hypertrophic facet arthritis. Ossification of ligamentum flavum. Severe spinal canal stenosis. L3-L4. Prior right-sided laminectomy. Circumferential disc bulge. Hypertrophic changes in the posterior elements. Severe spinal canal stenosis in the left side and moderate spinal canal stenosis to the right. L4-L5 moderate disc bulge thickening of the ligamentum flavum probably at least moderate spinal canal stenosis. L5-S1 disc bulge with moderate or mild to moderate flattening of the thecal sac. CTA abdomen and pelvis. Vessels: Mild arteriosclerotic disease of the aorta and branches of the aorta without high-grade stenosis or occlusions or large central filling defects. Lung Bases: The lung bases are clear. Small probably lung cyst lucency posterior lateral right costophrenic angle. Liver/Gallbladder/Biliary System: 2 foci of focal hyperenhancement on the arterial phase images in 2 additional tiny foci of hyperenhancement which is faintly visualized on the delayed images for example one of these areas is seen on image 63 series 10. Differential includes hemangiomas.. Gallbladder is absent. No intra- or extra-hepatic biliary ductal dilatation. Spleen: Small foci of low attenuation in the spleen probably small cysts. The spleen enhances homogeneously. Pancreas: The pancreas enhances homogeneously. Adrenals: The adrenals are morphologically unremarkable. Kidneys: Multiple foci of low attenuation is displacement in the kidneys. One of these in the left kidney image 84 series 10 demonstrates some rim calcification. Probably combination of simple and mildly complex renal cysts. The kidneys demonstrate symmetric nephrogram and excretion. No renal or ureteral calculi. No hydronephrosis. Bowel/Mesentery: The small bowel loops are not dilated. The large bowel loops are not dilated. Appendix is not definitely identified. There is mild thickening of the wall of the distal large bowel sigmoid colon and rectum probably due to lack of distention. Stomach is decompressed with associated wall thickening. Lymph Nodes: No lymphadenopathy within the abdomen or pelvis. Fluid Survey: No free fluid in the abdomen. No free fluid in the pelvis. Pelvis: The pelvic viscera are unremarkable. Body Wall: Normal. Bones: No acute fracture within the abdomen or pelvis. Procedure Note Maddy Ryder MD - 12/27/2024 CLINICAL INDICATION: Neck pain, acute, prior cervical surgery Leia Moreira is a 79 y.o. female who presents to the ED with multiplecomplaints. Pt has a hx of spinal stenosis, arthrosclerosis, andosteopenia. Pt reports that she has been experiencing BLE cramping, painand numbness for approximately 3 years. Pt documents that she has johann seenby pain management for 2.5 years with some relief. Pt notes that the painhas gotten worse. Pt explains that she is having difficultly ambulatingsecondary to hip pain. Pt states that she has difficultly urinating. Patient denies fever, chills, congestion and rhinorrhea. TECHNIQUE: CT scan of the cervical spine without contrast with subsequent multiplanarreconstructions. CT scan lumbar spine without contrast with subsequent multiplanarreconstructions. [Does not appear to be reconstructed from the CTA injuryexam.] Imaging of the abdomen and pelvis was performed, from lower chest throughpubic symphysis, using spiral technique, following administration of IVcontrast, Omnipaque 350, 100 mL according to the CTA Abdomen/Pelvisprotocol. Reformatted images in the coronal, sagittal, and oblique planeswere generated from the axial data set to facilitate diagnostic accuracy.In addition, 3D images were created and reviewed. Total DLP (Dose-Length Product): 2981.63 mGy.cm (accession [id number]),2981.63 mGy.cm (accession [id number]), 2981.63 mGy.cm (accession [id number]).Please note: The reported value represents the total of one or moreindividual components during the CT acquisition on this date and at thistime, and as such, the same value may appear in more than one CT reportdepending on the interpreting/reporting physicians. COMPARISON: MRI of the lumbar spine November 2022. FINDINGS: CT scan of cervical spine: Straightening of the cervical lordosis withmild hypertrophic and degenerative changes. No acute fracture or traumaticsubluxation. Minimal dextroconvexity at the lower cervical spine. Probablyno more than mild degenerative spinal canal stenosis. No evidence of anapical pneumothorax. Lumbar spine: Chronic burst compression fracture at the superior endplateof L2 with mild, similar loss of height compared to November 2022. There isminimal retropulsion. Straightening of the normal lumbar lordosis withminimal reversal of the lumbar lordosis at L3-L4. Minimal dextroconvexityat L3-L4. There is a mild asymmetric left-sided compression deformity atthe superior endplate of L5 with mild sclerosis to the left side usesAugust chronic in appearance. There are no acute compression fractures ortraumatic subluxation of the vertebra. Subtle central indentation of thesuperior endplate of L5 ON minimal compression injury or Schmorl's nodeslightly asymmetric left side. Probably chronic but nonspecific. Correlateclinically if there is any acute pain. There is moderate degenerative facet arthritis and lumbar spine. There isthickening or redundancy of the ligamentum flavum. There is someossification of ligamentum flavum and some hypertrophic changes associatedwith facet arthritis. L1-L2. Degenerative disc bulge. Hypertrophic changes in the posteriorelements. Minimal retropulsion at the posterior superior margin of L2.Moderate flattening of the thecal sac from anterior to posterior. L2-L3. Moderate circumferential disc bulge. Hypertrophic facet arthritis.Ossification of ligamentum flavum. Severe spinal canal stenosis. L3-L4. Prior right-sided laminectomy. Circumferential disc bulge.Hypertrophic changes in the posterior elements. Severe spinal canalstenosis in the left side and moderate spinal canal stenosis to theright. L4-L5 moderate disc bulge thickening of the ligamentum flavum probably atleast moderate spinal canal stenosis. L5-S1 disc bulge with moderate or mild to moderate flattening of thethecal sac. CTA abdomen and pelvis. Vessels: Mild arteriosclerotic disease of the aorta and branches of theaorta without high-grade stenosis or occlusions or large central fillingdefects. Lung Bases: The lung bases are clear. Small probably lung cyst lucencyposterior lateral right costophrenic angle. Liver/Gallbladder/Biliary System: 2 foci of focal hyperenhancement on thearterial phase images in 2 additional tiny foci of hyperenhancement whichis faintly visualized on the delayed images for example one of these areasis seen on image 63 series 10. Differential includes hemangiomas..Gallbladder is absent. No intra- or extra- hepatic biliary ductaldilatation. Spleen: Small foci of low attenuation in the spleen probably small cysts.The spleen enhances homogeneously. Pancreas: The pancreas enhances homogeneously. Adrenals: The adrenals are morphologically unremarkable. Kidneys: Multiple foci of low attenuation is displacement in the kidneys.One of these in the left kidney image 84 series 10 demonstrates some rimcalcification. Probably combination of simple and mildly complex renalcysts. The kidneys demonstrate symmetric nephrogram and excretion. Norenal or ureteral calculi. No hydronephrosis. Bowel/Mesentery: The small bowel loops are not dilated. The large bowelloops are not dilated. Appendix is not definitely identified. There ismild thickening of the wall of the distal large bowel sigmoid colon andrectum probably due to lack of distention. Stomach is decompressed withassociated wall thickening. Lymph Nodes: No lymphadenopathy within the abdomen or pelvis. Fluid Survey: No free fluid in the abdomen. No free fluid in the pelvis. Pelvis: The pelvic viscera are unremarkable. Body Wall: Normal. Bones: No acute fracture within the abdomen or pelvis. IMPRESSION: 1. Vascular structures are unremarkable. Calcific arteriosclerotic diseasewithout high-grade stenosis occlusions or large central filling defects. 2. No acute abnormality in the abdomen or pelvis. Possibly a combinationof hemangiomas and cysts in the solid organs. Thickening of the wall ofthe stomach large and small bowel possibly due to lack of distention. Cervical spine: No acute fracture or traumatic subluxation. Lumbar spine: degenerative and postsurgical changes with moderate andsevere spinal canal stenosis. Chronic compression injury superior endplate L2. Mild compression injuries and/or deformity superior endplate L5 probablychronic but is not specific regarding his age. Probably a Schmorl's nodeleft posterior. Chronic appearing Schmorl's node superior endplate ofT10. CRITICAL RESULT: No. COMMUNICATION: Per this written report. Drafted by Maddy Ryder MD on 12/27/2024 11:17 PM Final report signed by Maddy Ryder MD on 12/27/2024 11:39 PM Moncho Tucker MD IMG CT PROCEDURES Final Re sult * Phosphorus (12/27/2024 9:37 PM EDT) Phosphorus, Plasma 3.4 2.5 - 4.5 mg/dL 12/27/2024 10:03 PM EDT [facility] Blood Venous blood specimen / Unknown Venipuncture / Unknown 12/27/2024 9:37 PM EDT 12/27/2024 9:40 PM EDT Moncho Tucker MD LAB BLOOD ORDERABLES Final Result Performing Organization Address City/[facility]/ZIP Co de Phone Number [facility] [address] [place] [address] * Magnesium (12/27/2024 9:37 PM EDT) Magnesium, Plasma 2.1 1.9 - 2.4 mg/dL 12/27/2024 10:03 PM EDT [facility] Blood Venous blood specimen / Unknown Venipuncture / Unknown 12/27/2024 9:37 PM EDT 12/27/2024 9:40 PM EDT Moncho Tucker MD LAB BLOOD ORDERABLES Final Result [facility] [address] [place] [address] * BMP (12/27/2024 9:37 PM EDT) Glucose, Plasma 97 74 - 99 mg/dL 12/27/2024 10:03 PM EDT [facility] BUN, Plasma 21 8 - 23 mg/dL 12/27/2024 10:03 PM EDT [facility] Creatinine, Plasma 0.97 0.60 - 1.10 mg/dL 12/27/2024 10:03 PM EDT [facility] BUN/Creatinine Ratio 22 12/27/2024 10:03 PM EDT [facility] Sodium, Plasma 139 136 - 145 mmol/L 12/27/2024 10:03 PM EDT [facility] Potassium, Plasma 3.8 3.6 - 4.9 mmol/L 12/27/2024 10:03 PM EDT [facility] Chloride, Plasma 105 97 - 107 mmol/L 12/27/2024 10:03 PM EDT [facility] CO2, Plasma 23 22 - 29 mmol/L 12/27/2024 10:03 PM EDT [facility] Anion Gap 11 6 - 16 mmol/L 12/27/2024 10:03 PM EDT [facility] Total Calcium, Plasma 9.8 8.9 - 10.2 mg/dL 12/27/2024 10:03 PM EDT [facility] eGFRcr 59.2 mL/min/1.7 3m*2 12/27/2024 10:03 PM EDT [facility] Comment:Reported eGFRcr in m L/min/1.73m2 is based the CKD-EPI 2020 equation that does not use a race coefficient. Blood Venous blood specimen / Unknown Venipuncture / Unknown 12/27/2024 9:37 PM EDT 12/27/2024 9:40 PM EDT Moncho Tucker MD LAB BLOOD ORDERABLES Final Result [facility] [address] [place] [address] * CBC w/diff (12/27/2024 9:37 PM EDT) WBC Count 5.39 3.70 - 10.30 10*3/uL LAB HEMATOLOGY METHOD 12/27/2024 9:42 PM EDT [facility] RBC Count 4.23 3.90 - 5.20 10*6/uL LAB HEMATOLOGY METHOD 12/27/2024 9:42 PM EDT [facility] HGB 12.7 11.2 - 15.7 g/dL LAB HEMATOLOGY METHOD 12/27/2024 9:42 PM EDT [facility] HCT 36.9 34.0 - 45.0 % LAB HEMATOLOGY METHOD 12/27/2024 9:42 PM EDT [facility] Platelet Count 313 155 - 369 10*3/uL LAB HEMATOLOGY METHOD 12/27/2024 9:42 PM EDT [facility] MCV 87 79 - 98 fL LAB HEMATOLOGY METHOD 12/27/2024 9:42 PM EDT [facility] MCH 30.0 26.0 - 32.0 pg LAB HEMATOLOGY METHOD 12/27/2024 9:42 PM EDT [facility] MCHC 34.4 30.7 - 35.5 g/dL LAB HEMATOLOGY METHOD 12/27/2024 9:42 PM EDT [facility] RDW 13.4 11.5 - 14.5 % LAB HEMATOLOGY METHOD 12/27/2024 9:42 PM EDT [facility] MPV 9.4 8.8 - 12.5 fL LAB HEMATOLOGY METHOD 12/27/2024 9:42 PM EDT [facility] nRBC 0.0 <=0.0 per 100 WBCs LAB HEMATOLOGY METHOD 12/27/2024 9:42 PM EDT [facility] Differential Type Automated LAB HEMATOLOGY METHOD 12/27/2024 9:42 PM EDT [facility] Neutrophils % 49 % LAB HEMATOLOGY METHOD 12/27/2024 9:42 PM EDT [facility] Lymphocytes % 36 % LAB HEMATOLOGY METHOD 12/27/2024 9:42 PM EDT [facility] Monocytes % 10 % LAB HEMATOLOGY METHOD 12/27/2024 9:42 PM EDT [facility] Eosinophils % 4 % LAB HEMATOLOGY METHOD 12/27/2024 9:42 PM EDT [facility] Basophils % 1 % LAB HEMATOLOGY METHOD 12/27/2024 9:42 PM EDT [facility] Immature Granulocytes % 0 % LAB HEMATOLOGY METHOD 12/27/2024 9:42 PM EDT [facility] Neutrophils Absolute 2.65 1.60 - 6.10 10*3/uL LAB HEMATOLOGY METHOD 12/27/2024 9:42 PM EDT [facility] Lymphocytes Absolute 1.94 1.20 - 3.90 10*3/uL LAB HEMATOLOGY METHOD 12/27/2024 9:42 PM EDT [facility] Monocytes Absolute 0.51 0.30 - 0.90 10*3/uL LAB HEMATOLOGY METHOD 12/27/2024 9:42 PM EDT [facility] Eosinophils Absolute 0.21 0.00 - 0.50 10*3/uL LAB HEMATOLOGY METHOD 12/27/2024 9:42 PM EDT [facility] Basophils Absolute 0.06 0.00 - 0.10 10*3/uL LAB HEMATOLOGY METHOD 12/27/2024 9:42 PM EDT [facility] Immature Granulocytes Absolute 0.02 0.00 - 0.06 10*3/uL LAB HEMATOLOGY METHOD 12/27/2024 9:42 PM EDT [facility] Blood Venous blood specimen / Unknown Venipuncture / Unknown 12/27/2024 9:37 PM EDT 12/27/2024 9:40 PM EDT Narrative [facility] - 12/27/2024 9:42 PM EDT Therapeutic decision making should be based on absolute values, rather than percentages. us Moncho Tucker MD LAB BLOOD ORDERABLES Final Result [facility] [address] [place] [address] documented in this encounter Visit Diagnoses Diagnosis Numbness and tingling of both legs- Primary Disturbance of skin sensation Lumbar back pain Lumbago Spinal stenosis of lumbar region with neurogenic claudication documented in this encounter Administered Medications Inactive Administered Medications - up to 3 most recent administrations Medication Order MAR Action Action Date Dose Rate Site DULoxetine (Cymbalta) DR capsule 60 mg 60 mg, Oral, Every morning, First dose (after last modification) on 12/29/24 at 0600, Until Discontinued, Routine gadobutrol (Gadavist) injection 7.1 mL 7.1 mL (rounded from 7.08 mL = 0.1 mL/kg 70.8 kg), Intravenous, Once in imaging, 1 dose, Starting on Tue12/28/24 at 0524, Until Tue12/28/24 at 0530, Routine, Imaging Protocol Orders Given 12/28/2024 5:30 AM EDT 7.1 mL iohexol (OMNIPaque) 350 MG/ML injection 100 mL 100 mL, Intravenous, Once in imaging, 1 dose, Starting on Cher 12/27/24 at 2208, Until Cher 12/27/24 at 2208, Routine, Imaging Protocol Orders Given 12/27/2024 10:08 PM EDT 100 mL levothyroxine (Synthroid, Levoxyl) tablet 75 mcg 75 mcg, Oral, Every morning, First dose on Tue12/28/24 at 0600, Until Discontinued, Routine Given 12/28/2024 5:00 AM EDT 75 mcg LORazepam (Ativan) injection 1 mg 1 mg, Intravenous, Once PRN Procedure, 1 dose, Starting on Tue12/28/24 at 0417, Until Tue12/28/24 at 0520, STAT, sedation, MRI Given 12/28/2024 5:20 AM EDT 1 mg methocarbamol (Robaxin) tablet 1,000 mg 1,000 mg, Oral, Once, 1 dose, On Cher 12/27/24 at 2325, STAT Given 12/28/2024 12:11 AM EDT 1,000 mg methocarbamol (Robaxin) tablet 1,000 mg 1,000 mg, Oral, 3 times daily PRN, Starting on Tue12/28/24 at 0202, Until Tue12/28/24 at 1528, STAT, muscle spasms Given 12/28/2024 11:53 AM EDT 1,000 mg Given 12/28/2024 4:51 AM EDT 1,000 mg documented in this encounter Active and Recently Administered Medications Times are shown in EDT. Scheduled Medication Order 12/26/2024 12/27/2024 12/28/2024 candesartan (Atacand) tablet 16 mg 16 mg, Oral, Every evening, First dose on Tue12/28/24 at 1700, Until Discontinued, Routine DULoxetine (Cymbalta) DR capsule 60 mg 60 mg, Oral, Every morning, First dose (after last modification) on Tue12/29/24 at 0600, Until Discontinued, Routine gadobutrol (Gadavist) injection 7.1 mL (COMPLETED) 7.1 mL (rounded from 7.08 mL = 0.1 mL/kg 70.8 kg), Intravenous, Once in imaging, 1 dose, Starting on Tue12/28/24 at 0524, Until Tue12/28/24 at 0530, Routine, Imaging Protocol Orders 0530 (Given - Provid er: Wade Aguilar) iohexol (OMNIPaque) 350 MG/ML injection 100 mL (COMPLETED) 100 mL, Intravenous, Once in imaging, 1 dose, Starting on Tue12/27/24 at 2208, Until Tue12/27/24 at 2208, Routine, Imaging Protocol Orders 220 (Given - Provider: Dana Naylor) levothyroxine (Synthroid, Levoxyl) tablet 75 mcg 75 mcg, Oral, Every morning, First dose on Tue12/28/24 at 0600, Until Discontinued, Routine 0500 (Given - Provid er: Lyly Bill RN) methocarbamol (Robaxin) tablet 1,000 mg (COMPLETED) 1,000 mg, Oral, Once, 1 dose, On Tue12/27/24 at 2325, STAT 0011 (Given - Provid er: Marcus Edwards) PRN Medication Order 12/26/2024 12/27/2024 12/28/2024 LORazepam (Ativan) injection 1 mg (COMPLETED) 1 mg, Intravenous, Once PRN Procedure, 1 dose, Starting on Tue12/28/24 at 0417, Until Tue12/28/24 at 0520, STAT, sedation, MRI 0520 (Given - Provid er: Heydi Monroy RN) methocarbamol (Robaxin) tablet 1,000 mg 1,000 mg, Oral, 3 times daily PRN, Starting on Tue12/28/24 at 0202, Until Tue12/28/24 at 1528, STAT, muscle spasms 0451 (Given - Provid er: Lyly Bill RN)1153 (Given - Provider: Jayna Abad RN) documented in this encounter Additional Health Concerns Assessment Noted Time A fall risk assessment has been complete d for the patient 03/14/2023 2:59 PM EST A Body Mass Index follow-up plan has been documented for the patient 06/22/2024 2:21 PM EST documented as of this encounter Care Teams [place] Relationship Specialty Start Date End Date Leroy Gordon APRN [address] [place] [id number] PCP - General 10/07/22 Stefan Lennon MD [address] [place] [address] Surgeon Neurosurgery 03/01/23 Vikas Green MD [address] [place] [address] Surgeon Neurosurgery 03/30/23 documented as of this encounter
--- OUTSIDE RECORDS SUMMARY | 2025-01-01 10:00 | XMS_ITS | Encounter Summary ---
Author Organization Healthcare Address [address] [place] [address] Care Team Providers Care Surface Mount Technology Operator Name Role Phone Leroy Gordon APRN Primary Care Provider [phone] Stefan Lennon MD Unavailable [phone] Vikas Green MD Unavailable [phone] Reason for Visit * Reason Comments Follow-up Encounter Details Date Type Department Care Team (Latest Contact Info) Description 01/01/2025 10:00 AM EDT Office Visit [place] [facility] [address] [place] [address] Ashely Guy APRN [address] [place] [address] Spinal stenosis of lumbar region with neurogenic claudication (Primary Dx); Chronic low back pain, unspecified back pain laterality, unspecified whether sciatica present; Degeneration of intervertebral disc of lumbar region with discogenic back pain and lower extremity pain; Neural foraminal stenosis of lumbar spine Social History Tobacco Use Types Packs/Day Years [...] Sign Reading Time Taken Comments Blood Pressure 120/80 01/01/2025 9:53 AM EDT Pulse 66 01/01/2025 9:53 AM EDT Temperature - - Respiratory Rate - - Oxygen Saturation 98% 01/01/2025 9:53 AM EDT Inhaled Oxygen Concentration - - Weight 69.6 kg (153 lb 7 oz) 01/01/2025 9:53 AM EDT Height - - Body Mass Index 25.53 12/27/2024 10:00 PM EDT documented in this encounter Miscellaneous Notes * Progress Notes - Ashely Guy APRN - 01/01/2025 10:00 AM EDT We had the pleasure of seeing your patient in our clinic today for continued Neurosurgical evaluation. Chief Complaint: Back and leg pain History Of Present Illness Leia Moreira is a 79 y.o. female with history of a right L3-L4 laminectomy/diskectomy in 2007 for cauda equina syndrome presents today for continued follow-up. Patient was seen by Dr. Green on 03/30/2023 at that time patient was determined a potential candidate for surgical intervention however they wanted to pursue conservative therapies. Patient reports chronic low back pain as well as bilateral hip pain. She has significant difficulty with standing and walking. Patient states she has had several epidural steroid injections which are helpful. Patient states she has had a fall last yearwhere she had multiple compression fractures. She was not braced. Patient has been having quite a bit of colon problems mostly constipation. She feels like her urinary issues or tied to this. She wasrecently seen in our emergency department worked up. Patient states she has significant left hip pain. She also has numbness and tingling in her lower extremities. Patient is not on any anticoagulation therapy. Patient is not utilizing tobacco. Patient states she has had a recent DEXA scan but is unsure of the results. Past Medical History[1] Surgical History[2] Family History[3] Social History[4] Current Outpatient Medications Medication Instructions albuterol 108 (90 Base) MCG/ACT inhaler No dose, route, or frequency recorded. amLODIPine (NORVASC) 10 mg, Oral, Daily candesartan (ATACAND) 16 mg, Oral, Every evening carvedilol (COREG) 12.5 mg, Oral, 2 times daily with meals clonazePAM (KLONOPIN) 0.5 mg, Nightly dicyclomine (Bentyl) 10 MG capsule Take 1 capsule as needed by oral route for 30 days. DULoxetine (CYMBALTA) 60 mg, Every morning famotidine (Pepcid) 40 MG tablet No dose, route, or frequency recorded. fenofibrate (Triglide) 160 MG tablet No dose, route, or frequency recorded. fluticasone (Flonase) 50 MCG/ACT nasal spray 1 spray inclisiran sodium (Leqvio) 284 MG/1.5ML solution prefilled syringe injection levothyroxine (Synthroid, Levoxyl) 75 MCG tablet No dose, route, or frequency recorded. methocarbamol (ROBAXIN) 500 mg, Oral, 4 times daily PRN ondansetron (Zofran) 4 MG tablet oxybutynin XL (Ditropan-XL) 10 MG 24 hr tablet Allergies Evolocumab, Ciprofloxacin, Naproxen, Oxycodone-acetaminophen, Actonel [risedronate], Amlodipine, Cefdinir, Codeine, Hydralazine, Hydromorphone, Lisinopril, Morphine, Prednisone, Sulfa drugs, and Tramadol Review of Systems 14 point review of systems was performed and was negative except as noted per HPI. Visit Vitals BP 120/80 Pulse 66 Wt 69.6 kg (153 lb 7 oz) SpO2 98% BMI 25.53 kg/m?? OB Status Postmenopausal Smoking Status Never BSA 1.79 m?? General Physical Exam Constitutional No acute distress. Patient is appropriate historian and cooperative throughout exam.Well nourished, well groomed. Alert and oriented x4. Head Normocephalic and atraumatic. Eyes Pupils are equal, round, and reactive to light. Neck No tracheal deviation or JVD noted. Cardiovascular Minimal to no peripheral edema, intact distal pulses Pulmonary/Chest No increased effort noted, no shortness of breath Neurological Alert and oriented to person, place, and time Skin Skin is warm and dry Psychiatric Normal mood and affect, behavior and judgment MUSCULOSKELETAL EXAM: Upper Extremity Motor Strength Right Left C5: Deltoid 5/5 5/5 C6: Biceps 5/5 5/5 C7: Triceps 5/5 5/5 C8: Hat Steamer 5/5 5/5 T1: Intrinsics 5/5 5/5 Lower Extremity Motor Strength Right Left L2: Hip flexion (Iliopsoas) 09/03 08/04 L3: Knee extension (Quad) 09/03 08/04 L4: Ankle DF (TA) 09/03 09/03 L5: Great Toe DF (EHL) 09/03 09/03 S1: Ankle Pf, Foot Eversion (Peroneal longus/brevis) 09/03 09/03 S2: Great toe flexion (FHL), Knee flexion 09/03 09/03 Reflexes Right Left L4: Patellar /06/05 S1: Achilles /06/05 SLR Negative Negative Clonus Negative Negative Hoffmans Negative Negative Imaging I personally reviewed patient's lumbar MRI from 12/28/2024: Patient has degenerative changes throughout the lumbar spine. Patient has noted severe stenosis at L2-L3 L3-L4. Patient has noted disc protrusion at L4-L5 with mild stenosis and severe left neuroforaminal stenosis Assessment and Plan Leia Moreira is a 79 y.o. female with history of low back and leg pain. Patient and I had a longdiscussion about next steps as far as surgical intervention. I discussed with her that I do feel like it may help with her walking/neurogenic claudication I am unsure if it will help with her feet being cold and having numbness and tingling. I will discuss with Dr. Green potential surgical options for the patient and contact her with them. I will also bacteria is a [facility] to get updated DEXA scan so we can see what her bone quality is prior to making any surgical decisions. Patientis agreeable. I will contact her once I have discussed with Dr. Green. Patient was instructed to contact me with any issues or concerns. She was given my card and how to contact the office. Ashely Guy APRN [facility] Department of Neurosurgery This note was dictated using voice to text software and may contain errors 40 minutes was spent reviewing previous documentation and imaging, completion of today's documentation, [id number] visit, care coordination and planning [1] Past Medical History: Diagnosis Date Hyperlipidemia Hypertension Hypothyroid IBS (irritable bowel syndrome) Osteopenia Skin cancer Vitamin D deficiency [2] Past Surgical History: Procedure Laterality Date BACK SURGERY HYSTERECTOMY TONSILLECTOMY [3] No family history on file. [4] Social History Tobacco Use Smoking status: Never Passive exposure: Never Smokeless tobacco: Never Substance Use Topics Alcohol use: Never Drug use: Never documented in this encounter Plan of Treatment Upcoming Encounters Date Type Department Care Team (Latest Contact Info) Description 01/23/2025 1:15 PM EDT Pre-Admission Testing [facility] [address] [place] [address] 01/23/2025 2:15 PM EDT Consult [facility] [address] [place] [address] Vikas Green MD [address] [place] [address] 01/23/2025 3:20 PM EDT Clinical Support [facility] [address] [place] [address] 02/15/2025 12:05 PM EDT Hospital Encounter [facility] [address] [place] [address] Vikas Green MD [address] [place] [address] 02/15/2025 12:05 PM EDT - 02/15/2025 2:55 PM EDT Surgery [facility] [address] [place] [phone] Vikas Green MD [address] [place] [address] L2-L5 Lumbar Laminectomy [25692 (CPT )] 07/05/2025 11:40 AM EST Office Visit [facility] [address] [place] [address] [place] [address] Devin Monahan MD [address] [place] [address] Scheduled Procedures Name Priority Associated Diagnoses Date/Ti me LAMINECTOMY, SPINE, LUMBAR, 1 LEVEL, WITH FORAMINOTOMY OR FACETECTOMY Spinal stenosis of lumbar region with neurogenic claudication 02/15/2025 12:05 PM EDT documented as of this encounter Visit Diagnoses Diagnosis Spinal stenosis of lumbar region with neurogenic claudication- Primary Chronic low back pain, unspecified back pain laterality, unspecified whether sciatica present Degeneration of intervertebral disc of lumbar region with discogenic back pain and lower extremity pain 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 documented in this encounter Additional Health Concerns Assessment Noted Time A fall risk assessment has been complete d for the patient 01/01/2025 9:53 AM EDT A Body Mass Index follow-up plan has been documented for the patient 01/01/2025 6:39 PM EDT documented as of this encounter Care Teams Surface Mount Technology Operator Relationship Specialty Start Date End Date Leroy Gordon APRN [address] [place] [address] PCP - General 10/07/22 Stefan Lennon MD [address] [address] Surgeon Neurosurgery 03/01/23 Vikas Green MD [address] [place] [id number] Surgeon Neurosurgery 03/30/23 documented as of this encounter
--- OUTSIDE RECORDS SUMMARY | 2025-01-16 11:30 | XMS_ITS | Encounter Summary ---
Author Organization [place] [address] Care Team Providers Care Insurance Sales Agent Name Role Phone Na Ang MD Unavailable [phone] Reason for Referral * Consultation (Routine) - Authorized Specialty Diagnoses / Procedures Referred By Contac t Referred To Contact Diabetes Services Diagnoses Reactive hypoglycemia Katharine Whitlock MD [address] [place] [phone] Phone: tel: fax: Referral ID Status Reason Start Date Expiration Date V isits Requested Visits Authorized [id number] Authorized 01/16/2025 01/16/2026 99 99 Scheduling Instructions Has reactive hypoglycemia Question Answer Patient to attend class today? No Type Dietitian (MNT) ONLY- initial (3 hours per year) Comments I attest that diabetes has been diagnosed by one of the following [facility] criteria: A fasting blood sugar greater than or equal to 126mg/dL on two different occasions A 2 hour post-glucose challenge greater than or equal to 200mg/dL on 2 different occasions A random glucose test over 200 mg/dL for a person with symptoms of uncontrolled diabetes Lab Results Component Value Date GLU 90 12/14/2024 GLU 99 07/18/2022 GLU 150 (H) 10/29/2021 Encounter Details Date Type Department Care Team (Latest Contact Info) Description 01/16/2025 11:30 AM EDT Telemedicine [facility] [place] [address] [facility] [address] [place] [phone] Katharine Whitlock MD [address] [facility] [address] [place] [phone] Acquired hypothyroidism (Primary Dx); Chronic fatigue; Vitamin D deficiency; Secondary adrenal insufficiency; Reactive hypoglycemia; Other hyperlipidemia Social History Tobacco Use Types Packs/Day Years [...] Date Recorded PHQ-2 Total Score 0 07/28/2022 [facility] - Occupational Stress [...] Progress Notes * Katharine Whitlock MD - 01/16/2025 11:30 AM EDT Subjective: Patient ID: Leia Moreira is a 79 y.o. female who is here for further assessment of her endocrine related health problems namely thyroid issues This a self referral No chief complaint on file. HPI Dx 10 + yrs On LT4; 75 mcg daily for the last many months Uses Generic Uses same pharmacy Gets 30 days supply at a time. Takes it by itself. Takes it out of the bottle it comes in Keeps it in the bedroom. Last TSH Lab Results Component Value Date TSH 0.737 12/14/2024 TSH 1.360 11/27/2024 TSH 1.660 04/11/2018 TSHREFLEX 1.630 08/22/2020 TSHREFLEX 1.470 12/04/2018 Lab Results Component Value Date FREET4 1.41 12/14/2024 FREET4 1.64 11/27/2024 Lab Results Component Value Date T3FREE 2.24 12/14/2024 T3FREE 2.1 11/27/2024 Lab Results Component Value Date FREET4 1.41 12/14/2024 FREET4 1.64 11/27/2024 Based on body weight the expected calculated [...] 284 MG/1.5 ML SUBCUTANEOUS SYRINGE - 0 Rx#[id number]. Other antihyperlipidemic medications: -02/03/2023 FENOFIBRATE 160 MG TABLET - 0 Rx#[id number]. Therapy plan medications: No therapy plan of the specified type found. No results found for: LIPOPROTA Lipoprotein (a) Date Value Ref Range Status 12/14/2024 16 <30 mg/dL Final 11/27/2024 42 (A) <=30 mg/dL Final Lab Results Component Value Date LDLCALC 91 12/14/2024 LDLCALC 100 11/27/2024 LDLCALC 149 (H) 04/25/2018 LDLDIRECT 83 08/22/2020 Lab Results Component Value Date TRIG 97 12/14/2024 TRIG 113 11/27/2024 TRIG 220 (H) 08/22/2020 TRIG 94 04/25/2018 [...] at times Lightheaded and troubles with gait She did not pass the hypoglycemia tolerance test - Results consistent with reactive hypoglycemia Plan; 1) Dietitian for reactive hypoglycemia Lab Results Component Value Date GLUCHALFHOUR 136 12/14/2024 [id number] 89 12/14/2024 GLUCONEHALFH 87 12/14/2024 [id number] 84 12/14/2024 GLUCTWOFIVEH 80 12/14/2024 [id number] 57 12/14/2024 Past Medical History: Diagnosis Date Cataract COVID-19 02/21/2020 Difficulty urinating Fatty liver Heartburn High triglycerides Hyperlipemia Hypertension Hypothyroidism Incomplete bladder emptying 04/30/2019 Irritable bowel syndrome Neuromuscular disorder (HCC) peripheral neuropathy in bilateral lower extremities Osteoarthritis Thyroid disease hypothyroidism Social History Socioeconomic History Marital status: Tobacco Use Smoking status: Never Passive exposure: Never Smokeless tobacco: Never Vaping Use Vaping status: Never Used Substance and Sexual Activity Alcohol use: No Drug use: No Sexual activity: Yes Social Drivers of Health Financial Resource Strain: Low Risk (11/25/2020) Overall Financial Resource Strain (CARDIA) Difficulty of Paying Living Expenses: Not hard at all Received from [employer] Insecurities Received from [employer] Transportation Physical Activity: Insufficiently Active (12/18/2020) Exercise Vital Sign Days of Exercise per Week: 7 days Minutes of Exercise per Session: 10 min Stress: No Stress Concern Present (11/25/2020) [facility] - Occupational Stress Questionnaire Feeling of Stress : Not at all Received from [employer] Interpersonal Safety Received from [employer] Housing/Utilities Family History Problem Relation Age of Onset Alzheimer's Disease Mother Stroke Mother Heart Attack Father High Cholesterol Father High Cholesterol Sister Other (bypass) Sister Lung Cancer Sister Lung Cancer Brother Cataracts Neg Hx Glaucoma Neg Hx Macular Degen Neg Hx Anesth Problems Neg Hx Current Outpatient Medications Medication albuterol (PROVENTIL HFA;VENTOLIN HFA) 90 mcg/actuation Inhl HFA Aerosol Inhaler amLODIPine (NORVASC) 10 mg Oral Tablet azelastine (ASTELIN) 137 mcg (0.1 %) Nasl Aerosol, Vado candesartan (ATACAND) 16 mg Oral Tablet carvediloL (COREG) 12.5 mg Oral Tablet clonazePAM (KLONOPIN) 0.5 mg Oral Tablet cyclobenzaprine (FLEXERIL) 5 mg Oral Tablet dicyclomine (BENTYL) 20 mg Oral Tablet DULoxetine (CYMBALTA) 60 mg Oral Capsule, Delayed Release(E.C.) estradioL (ESTRACE) 0.01 % (0.1 mg/gram) Vagl Cream famotidine (PEPCID) 40 mg Oral Tablet fenofibrate (LOFIBRA) 160 mg Oral Tablet inclisiran (LEQVIO) 284 mg/1.5 mL SubQ Syringe levothyroxine (SYNTHROID) 75 mcg Oral Tablet gbfpwlso-shjiphtgp-xvydhtdjaqrwyxkigq (MAXITROL) 3.5mg/mL-10,000 unit/mL-0.1 % Opht Drops, Suspension ondansetron (ZOFRAN) 4 mg Oral Tablet pantoprazole (PROTONIX) 40 mg Oral Tablet, Delayed Release (E.C.) No current facility-administered medications for this visit. [...] Neurological: Positive for light-headedness and numbness. Objective: There were no vitals filed for this visit. There is no height or weight on file to calculate BMI. Physical Exam Constitutional: General: She is not [...] normal. Judgment: Judgment normal. Assessment and Plan: Diagnoses and all orders for this visit: Acquired hypothyroidism - C-REACTIVE PROTEIN; Future - THYROID STIMULATING HORMONE; Future - T4, FREE (THYROXINE); Future Chronic fatigue - VITAMIN B12 LEVEL; Future Vitamin D deficiency - VITAMIN D 25 HYDROXY; Future Secondary adrenal insufficiency Reactive hypoglycemia - COMPREHENSIVE METABOLIC PANEL; Future - AMB REFERRAL TO DIABETIC EDUCATION PROGRAM Other hyperlipidemia - LIPID PANEL REFLEX; Future Might need a.m. salivary cortisol for adrenal insufficiency or HTT Patient Instructions Please continue same dose of the medication(s) we prescribed. Will refer you to ; Diabetes Medical Nutrition therapy (One class) Will see you back in clinic in 3 Months , with me, with blood work done 1-2 Weeks prior to the clinic appointment. Return in about 3 months (around 04/17/2025). Katharine Whitlock MD documented in this encounter Miscellaneous Notes * Patient Instructions - Katharine Whitlock MD - 01/16/2025 11:30 AM EDT Please continue same dose of the medication(s) we prescribed. Will refer you to ; Diabetes Medical Nutrition therapy (One class) Will see you back in clinic in 3 Months , with me, with blood work done 1-2 Weeks prior to the clinic appointment. documented in this encounter Plan of Treatment Upcoming Encounters Date Type Department Care Team (Late st Contact Info) Description 02/06/2025 2:30 PM EDT Office Visit [facility] [address] [phone] Liliya Guadarrama, RD,LD [address] [place] [address] 05/07/2025 12:40 PM EST Office Visit [facility] [place] 1500 [facility] [address] [place], [place] [phone] Katharine Whitlock MD [address] [place] [phone] 08/15/2025 1:40 PM EDT Office Visit [facility] 1500 [facility] [address] [place] [phone] Na Ang MD [address] [phone] Scheduled Orders Name Type Priority Associated Diagnoses Orde r Schedule C-REACTIVE PROTEIN Lab Routine Acquired hypothyroidism Expected: 03/18/2025, Expires: 06/18/2025 COMPREHENSIVE METABOLIC PANEL Lab Routine Reactive hypoglycemia Expected: 03/18/2025, Expires: 06/18/2025 VITAMIN B12 LEVEL Lab Routine Chronic fatigue Expected: 03/18/2025, Expires: 06/18/2025 VITAMIN D 25 HYDROXY Lab Routine Vitamin D deficiency Expected: 03/18/2025, Expires: 06/18/2025 THYROID STIMULATING HORMONE Lab Routine Acquired hypothyroidism Expected: 03/18/2025, Expires: 06/18/2025 T4, FREE (THYROXINE) Lab Routine Acquired hypothyroidism Expected: 03/18/2025, Expires: 06/18/2025 LIPID PANEL REFLEX Lab Routine Other hyperlipidemia 1 Occurrences starting 01/16/2025 until 07/18/2025 Scheduled Referrals Name Type Priority Associated Diagnoses Orde r Schedule AMB REFERRAL TO DIABETIC EDUCATION PROGRAM Outpatient Referral Routine Reactive hypoglycemia Ordered: 01/16/2025 documented as of this encounter Goals Goal [...] as of this encounter Visit Diagnoses Diagnosis Acquired hypothyroidism- Primary Unspecified hypothyroidism Chronic fatigue Other malaise and fatigue Vitamin D deficiency Unspecified vitamin D deficiency Secondary adrenal insufficiency Glucocorticoid deficiency Reactive hypoglycemia Hypoglycemia, unspecified Other hyperlipidemia documented in this encounter Additional Health Concerns Assessment Noted Time A fall risk assessment has been complete d for the patient 07/28/2022 2:08 PM EDT documented as of this encounter Care Teams Insurance Sales Agent Relationship Specialty Start Date End Date Na Ang MD [address] [phone] Consulting Physician Ophthalmology 07/10/20 documented as of this encounter
--- OUTSIDE RECORDS SUMMARY | 2025-01-18 15:26 | XMS_ITS | Clinical Summary ---
Author Organization [facility] Address [address] [facility] [address] [place] [address] Phone Care Team Providers Care [facility] Sales Manager Name Role Phone Unavailable Unavailable Conditions or Problems No information available. Medications No information available. Medications Administered No information available. Allergies, Adverse Reactions, Alerts No information available. Results No information available. Plan of Care No information available. Procedures No information available. Vital Signs No information available. Immunizations No information available. Advance Directives No information available.
--- OUTSIDE RECORDS SUMMARY | 2025-01-18 15:27 | XMS_ITS | Referral Summary ---
Author Organization [facility] Address [address] [place] [phone] Care Team Providers Care Coremaker Supervisor Name Role Phone Janet Vogt MD Primary Care Provider [phone] Allergies Active Allergy Reactions Criticality Noted Date [...] Treatment Not on file Insurance Care Teams Coremaker Supervisor Relationship Specialty Start Date End Date Janet Vogt MD PCP - General Family Medicine 07/19/22
--- OUTSIDE RECORDS SUMMARY | 2025-01-18 15:27 | XMS_ITS | Encounter Summary ---
Author Organization [place] [address] Care Team Providers Care Chain Builder Name Role Phone Na Ang MD Unavailable [phone] Reason for Visit * Reason Onset Date Comments Results 12/12/2024 Schedule Appointment 12/12/2024 Encounter Details Date Type Department Care Team (Latest Contact Info) Description 12/12/2024 Results Follow-Up [facility] [place] [address] [facility] [address] [place] [phone] Katharine Whitlock MD 1500 [facility] [address] [place] [phone] THYROID, C-REACTIVE PROTEIN, COMPREHENSIVE METABOLIC PANEL, [...] Date Recorded PHQ-2 Total Score 0 07/28/2022 [facility] - Occupational Stress Questionnaire Answer Date [...] schedule appointment with * Telephone Encounter - iLsa Rodriguez - 12/20/2024 9:20 AM EDT ----- Message from Katharine Whitlock MD sent at 12/19/2024 5:51 PM EDT ----- She did not pass the hypoglycemia tolerance test - Results consistent with reactive hypoglycemia Plan; 1) Dietitian for reactive hypoglycemia 2) RTC in one month with Non fasting CMP to FU on the above Lab Results Component Value Date GLUCHALFHOUR 136 12/14/2024 [id number] 89 12/14/2024 GLUCONEHALFH 87 12/14/2024 [id number] 84 12/14/2024 GLUCTWOFIVEH 80 12/14/2024 [id number] 57 12/14/2024 Nursing will contact you with [...] Patient notified of results and recommendations via [employer]t message. documented in this encounter Plan of Treatment Upcoming Encounters Date Type Department Care Team (Late st Contact Info) Description 02/06/2025 2:30 PM EDT Office Visit [facility] [address] [employer] [address] [phone] Liliya Guadarrama, RD,[place] [address] [place] [address] 05/07/2025 12:40 PM EST Office Visit [facility] [place] [address] [employer] [address] [phone] Katharine Whitlock MD [address] [place] [employer] [address] [phone] 08/15/2025 1:40 PM EDT Office Visit [facility] [address] [employer] [address] [phone] Na Ang MD [address] [employer] [address] [phone] documented as of this encounter Goals Goal [...] 021 1:53 PM EDT) No Page Chatterjee, MARISSA documented as of this encounter Visit Diagnoses Not on filedocumented in this encounter Additional Health Concerns Assessment Noted Time A fall risk assessment has been complete d for the patient 07/28/2022 2:08 PM EDT documented as of this encounter Care Teams Chain Builder Relationship Specialty Start Date End Date Na Ang MD [address] [phone] Consulting Physician Ophthalmology 07/10/20 documented as of this encounter
--- OUTSIDE RECORDS SUMMARY | 2025-01-18 15:27 | XMS_ITS | Continuity of Care Document ---
Author Organization [facility] Address [facility] [place] [address] Phone Care Team Providers Care Certified Medication Technician Name Role Phone Na Ang MD Unavailable [phone] Encounters Date Type Department Care Team Description 5 Telephone [facility] [address] [id number] Katharine Whitlock MD Schedule Appointment 5 Travel 5 11:30 AM EDT Telemedicine [facility] [address] [address] Katharine Whitlock MD Acquired hypothyroidism (Primary Dx); Chronic fatigue; Vitamin D deficiency; Secondary adrenal insufficiency; Reactive hypoglycemia; Other hyperlipidemia 5 12:28 PM EDT - 5 11:59 PM EDT Hospital Encounter [facility] [address] [place] [address] Acquired hypothyroidism; Chronic fatigue; Other hyperlipidemia; Vitamin D deficiency; Secondary adrenal insufficiency Discharge Disposition: Home or Self Care 5 Results Follow-Up [facility] [address] [place] [address] Katharine Whitlock MD US THYROID, C-REACTIVE PROTEIN, COMPREHENSIVE METABOLIC PANEL, Additional followed-up results: 5 12:22 PM EDT - 5 11:59 PM EDT Hospital Encounter [facility] [address] [place] [address] Katharine Whitlock MD Acquired hypothyroidism Discharge Disposition: Home or Self Care 5 [place] [address] Katharine Whitlock MD CALCITRIOL- COMPUNET, T3 FREE, VITAMIN B6 (PYRIDOXINE) -REF LAB, Additional followed-up results: 5 12:30 PM EDT Office Visit [address] Painter [place] [address] Katharine Whitlock MD Acquired hypothyroidism (Primary Dx); Secondary adrenal insufficiency; Chronic fatigue; Other hyperlipidemia; Vitamin D deficiency 5 1:00 PM EDT Office Visit [facility] [address] [place] [address] Na Ang MD Pseudophakia (Primary Dx); Bilateral ocular hypertension; Optic neuropathy, left 5 Telephone [facility] [address] [place] [address] Na Ang MD Other (Confirmation Call.) 4 1:20 PM EDT Office Visit [facility] [address] [place] [address] Na Ang MD Keratitis sicca, bilateral (HCC) (Primary Dx) 4 11:00 AM EDT Office Visit [facility] [address] [place] [address] Na Ang MD Optic neuropathy, left (Primary Dx); Bilateral ocular hypertension 3 Patient Outreach [facility] [address] [place] [address] Marlyn Mendez, Instant Potato Processing Supervisor Medication Management (Statin Non-adherence) 3 Travel 3 1:50 PM EDT Office Visit [facility] [address] [place] [address] Na Ang MD Keratitis sicca, bilateral (HCC) (Primary Dx); Pseudophakia; Bilateral ocular hypertension; Optic neuropathy, left 3 Patient Outreach [facility] [address] [place] [address] Janet Vogt MD Central Order Completion Outreach (DEXA) 3 Telephone [facility] [address] [place] [address] Na Ang MD Other (Appt Reschedule) 3 Telephone [facility] [address] [place] [address] Na Ang MD Other (Appt Reschedule) 3 Patient Outreach [facility] [address] [place] [address] Lon Victoria CPhT Medication Management (Clinical Supplier Specialist: head correction officer [phone] ) 3 Patient Outreach [facility] [address] [place] [address] Lon Victoria CPhT Medication Management (Clinical Supplier Specialist: head correction officer [phone] ) 3 Patient Outreach SEP [facility] [address] [place] [address] Lon Victoria CPhT Medication Management (Clinical Will Call Order Clerk: head correction officer [phone]) 3 Refill [address]P [address] [place] [address] Gerardo Purcell MD Medication Refill 3 Refill [facility] [address] [address] Janet Vogt MD Medication Refill 3 Refill [facility] [address] [place] [address] Gerardo Purcell MD Medication Refill 3 Orders Only [facility]P [facility] [address] [place] [address] Chen Cano RN Hospital discharge follow-up (Primary Dx) 3 Telephone SEP H&V [address] [address] Kalyan, Kendy, DO Hypertension 3 2:45 PM EDT Office Visit [facility] [address] [address] Oumar Alves MD Spinal stenosis of lumbar region without neurogenic claudication (Primary Dx); DDD (degenerative disc disease), lumbar; Lumbar pain 3 Telephone [facility] [address] [address] Janet Vogt MD Appointment Needed (ED fu ) 3 Telephone SEP [facility]. [address] [address] Janet Vogt MD Symptom Call 3 1:45 PM EDT Ancillary Procedure [facility] [address] [employer] [address] [address] Oumar Alves MD Cervical pain 3 1:30 PM EDT Office Visit [facility] [address] [address] Oumar Alves MD Spinal stenosis of lumbar region without neurogenic claudication (Primary Dx); Cervical pain; Bilateral leg pain; DDD (degenerative disc disease), lumbar; Trochanteric bursitis of right hip 3 2:45 PM EDT Office [place] [address] Kendy Biggs DO Nonobstructive atherosclerosis of coronary artery (Primary Dx); Essential hypertension; Heart murmur; Dyslipidemia; Uncontrolled hypertension 3 Travel 3 8:41 AM EDT - 3 11:59 PM EDT Hospital Encounter [facility] [place] [address] Gerardo Purcell MD Gastroesophageal reflux disease with esophagitis without hemorrhage Discharge Disposition: Home or Self Care 3 [place] [address] Kendy Biggs DO Medication Refill 3 1:45 PM EDT Office Visit [facility] [address] [place] [address] Pebbles Will APRN Primary osteoarthritis of right knee (Primary Dx); Lumbar radiculopathy; Neuropathic pain; Myofascial pain; Sacroiliitis; Pain in both lower extremities; Chronic pain of right thumb; Spondylosis of lumbosacral region without myelopathy or radiculopathy; DDD (degenerative disc disease), lumbar 3 Telephone [facility] [address] [place] [address] Gerardo Purcell MD Other; Medication Management 3 Telephone [facility] Urology NPTFTT [address] [place] [address] Sandra Murrell PA-C Results 3 2:00 PM EDT Office Visit [facility] [address] [place] [address] Jante Vogt MD Essential hypertension (Primary Dx); Peripheral neuropathy, idiopathic; Restless legs syndrome (RLS) 3 3:45 PM EDT Office Visit [facility] [address] [place] [phone] Pebbles Will APRN Primary osteoarthritis of right knee (Primary Dx) 3 10:40 AM EDT Office Visit [facility] NPTFTT [address] [place] [address] Sandra Murrell PA-C Group beta Strep positive (Primary Dx); Urinary retention; Cauda equina syndrome with neurogenic bladder (HCC) 3 Telephone [facility] U[facility] NPTFTT [address] [place] [address] Sandra Murrell PA-C Patient Question 3 Telephone SEP H&V [address] [address] Kendy Biggs DO Patient Question (Patient was just released from hospital and has some questions for Dr. Biggs's MA about her blood pressure. Please call her back) 3 1:20 PM EDT Office Visit [facility] [address] [facility] Gerardo Purcell MD Acute gastritis without hemorrhage, unspecified gastritis type (Primary Dx) 3 Travel 3 3:00 PM EDT - 3 6:16 PM EDT Emergency [place] [facility] [address] [place] [address] Sameer Gan MD Dysuria (Primary Dx); Suprapubic pressure Discharge Disposition: Home or Self Care 3 2:30 PM EDT Office Visit Michael Lowe [address] [place] [address] Oumar Alves MD Spinal stenosis of lumbar region without neurogenic claudication (Primary Dx) 3 1:20 PM EDT Office Visit [facility] [address] [place] [address] Gerardo Purcell MD Cauda equina syndrome with neurogenic bladder (HCC) (Primary Dx); Irritable bowel syndrome with constipation; Gastroesophageal reflux disease without esophagitis 3 1:15 PM EST [facility] [address] [place] [address] Oumar Alves MD Lumbar pain 3 1:00 [place] [address] Oumar Alves MD Spinal stenosis of lumbar region without neurogenic claudication (Primary Dx); DDD (degenerative disc disease), lumbar; Lumbar pain 3 Travel 3 1:10 PM EST - 3 11:59 PM EST Hospital Encounter [facility] [place] [address] Peripheral neuropathy, idiopathic (Primary Dx); Nail disease; Macronychia; Encounter for laboratory testing for COVID-19 virus; Essential hypertension; Other hyperlipidemia; Acquired hypothyroidism; Pre-op testing Discharge Disposition: Home or Self Care 3 Travel 3 2:05 PM EST - 3 11:59 PM EST Hospital Encounter [facility] [place] [address] Macronychia (Primary Dx); Nail disease Discharge Disposition: Home or Self Care [address] [address] Mikey Christian MD Prior Authorization (Right Knee Inj) 3 2:15 PM EST Office Visit [facility] [address] [place] [address] Mikey Christian MD Lumbar radiculopathy; Neuropathic pain; Myofascial pain 3 Refill SEP H&V NPTFTT [address] [place] [address] Aklyan, Kendy, DO Medication Refill 3 1:10 PM EST Office Visit [facility] [address] [facility] [address] [place] [address] Na Ang MD Optic neuropathy, left (Primary Dx); Bilateral ocular hypertension 3 Telephone [facility] [address] [place] [address] Gerardo Purcell MD Medication Management (FOR HEMORRHOIDS) 3 Travel 3 1:31 PM EST - 3 11:59 PM EST Hospital Encounter [facility] [address] [place] [address] Janet Vogt MD Abdominal pain, unspecified abdominal location Discharge Disposition: Home or Self Care 3 Orders Only [facility] Urology NPTFTT [address] [place] [address] Sandra Murrell PA-C Cauda equina syndrome with neurogenic bladder (HCC) (Primary Dx) 3 3:20 PM EST Office Visit [facility] U[facility] NPTFTT [address] [place] [address] Sandra Murrell PA-C Microhematuria (Primary Dx) 2 11:00 AM EST Office Visit [facility] [address] [place] [address] Janet Vogt MD Influenza A (Primary Dx); Abdominal pain, unspecified abdominal location; Menopause; Essential hypertension 2 Patient Outreach [facility] [address] [place] [address] Anh Brown BS, COS CM - Referral Line 2 5:51 AM EST - 2 8:24 AM EST Emergency [facility] [address] [facility] [place], [place] [id number] Jonas Mayorga MD Patel, Dhruv P, MD Influenza A (Primary Dx); Hematuria, unspecified type Discharge Disposition: Home or Self Care 2 10:15 AM EST Office Visit [facility] [address] [place] [address] Mikey Christian MD Myofascial pain; Lumbar radiculopathy; Neuropathic pain 2 Refill SEP H&V NPTFTT [address] [place] [address] Kendy Biggs DO Medication Refill 2 Refill [facility] [address] [place], [place] [id number] Gerardo Purcell MD Medication Refill 2 9:15 AM EDT Office Visit [facility] [address] [place] [address] Mikey Christian MD Lumbar radiculopathy (Primary Dx); Myofascial pain; Neuropathic pain 2 Travel 2 7:36 AM EDT - 2 11:59 PM EDT Hospital Encounter [facility]G [address] [place] [address] Fredo Shepard Ftt Lumbosacral radiculopathy (Primary Dx); Pain in both lower extremities; Carpal tunnel syndrome of left wrist Discharge Disposition: Home or Self Care 2 2:20 PM EDT Ancillary Procedure [facility] Urgent [address] [address] Denae Reis MD Cough, unspecified type Discharge Disposition: Home or Self Care 2 1:30 PM EDT Office Visit [address] [address] Denae Reis MD Cough, unspecified type (Primary Dx); Bronchitis 2 2:15 PM EDT Office Visit [facility] [address] [place] [address] Mikey Christian MD Pain in both lower extremities (Primary Dx); Acute bilateral low back pain without sciatica; Sacroiliitis; Myofascial pain 2 10:20 AM EDT Office Visit [facility] [address] [facility] [facility], [place] [address] Gerardo Purcell MD Irritable bowel syndrome with constipation (Primary Dx); Gastroesophageal reflux disease without esophagitis; Cauda equina syndrome with neurogenic bladder (HCC); Nausea; External hemorrhoids 2 2:00 PM EDT Office Visit SEP H&V [address] [id number] Kendy Biggs, DO Nonobstructive atherosclerosis of coronary artery (Primary Dx); Essential hypertension; Heart murmur; Dyslipidemia 2 Refill [facility] [address] [place] [address] Janet Vogt MD Medication Refill 2 2:50 PM EDT Office Visit [address] [place] [phone] Mikey Christian MD Sacroiliitis 2 1:20 PM EDT Office Visit [facility] Urology NPTFTT [address] [place] [address] Sandra Murrell PA-C Incomplete bladder emptying (Primary Dx); Urinary retention; Cauda equina syndrome with neurogenic bladder (HCC); Slow transit constipation 2 Telephone SEP H&V NPTFTT [address] [place] [address] Kalyan, Kendy, DO Medication Refill 2 Telephone SEP H&V [address] [address] Kalyan, Kendy, DO Medication Refill 2 Patient Outreach SEP [facility] [address] [place] [address] Janet Vogt MD Central Patient Navigator Outreach (AWV) [address] [place] [address] Mikey Christian MD Prior Authorization (SI joint injection) 2 2:15 PM EDT Office Visit [facility] SP[facility] [address] [place] [address] Mikey Christian MD Myofascial pain (Primary Dx); Acute bilateral low back pain without sciatica; Sacroiliitis 2 Orders Only [address] [place] [address] Mikey Christian MD Myofascial pain (Primary Dx) 2 9:30 AM EDT Office Visit [facility] SPINE [address] [place] [address] Mikey Christian MD Chronic pain of right thumb 2 Refill SEP Gastro [facility] [address] [facility] [address] [place] [address] Gerardo Prucell MD Medication Refill 2 Telephone SEP GASTRO [address] 1D ENTRANCE, 3RD [place] [address] Gerardo Purcell MD Other 2 9:40 AM EDT Office Visit [facility]rology NPTFTT [address] [place] [address] Sandra Murrell PA-C Urinary retention (Primary Dx); Slow transit constipation; Hemorrhoids, unspecified hemorrhoid type; Incomplete bladder emptying 2 11:20 AM EDT Office Visit [facility] Urology NPTFTT [address] [place] [address] Sandra Murrell PA-C Feeling of incomplete bladder emptying (Primary Dx); Urinary retention; Slow transit constipation 2 Patient Outreach SEP [facility] Transformation [address] [place] [address] Anh Brown BS, COS ED Follow-Up Call 2 2:29 AM EDT - 2 6:04 AM EDT Emergency [facility] [place] [address] Arthur Rodriguez MD Acute on chronic urinary retention (Primary Dx); Hemorrhoids, unspecified hemorrhoid type Discharge Disposition: Home or Self Care 2 Nurse Triage [address] [place] [address] Kat Vizcaino RN 2 Travel 2 9:15 PM EDT - 2 10:11 PM EDT Emergency [facility] [place] [address] Arthur Pruett MD Fecal impaction in rectum (HCC) (Primary Dx); External hemorrhoids without complication Discharge Disposition: Home or Self Care 2 Nurse Triage [address] [place] [address] Ne Betancourt, MARISSA 2 Refill [facility] H&V NPTFTT [address] [place] [address] Kendy Biggs, Medication Refill 2 1:00 PM EDT Office Visit [facility] Ophthalmology [address] [place] [address] Na Ang MD Keratitis sicca, bilateral (HCC) (Primary Dx); Optic neuropathy, left; Bilateral ocular hypertension; Nuclear sclerotic cataract of right eye [address] [place] [address] Mikey Christian MD Prior Authorization (Right Thumb Injection) 2 10:30 AM EDT Office Visit [facility] [address] [place] [address] Mikey Christian MD Acute bilateral low back pain without sciatica 2 [place] [address] Kendy Biggs DO Medication Refill 2 11:20 AM EDT Office Visit [facility] Urology NPTFTT [address] [place] [address] Sandra Murrell PA-C Feeling of incomplete bladder emptying (Primary Dx); Incomplete bladder emptying; Cauda equina syndrome with neurogenic bladder (HCC); Slow transit constipation; Stranguria 2 2:45 PM EDT Office [place] [address] Kendy Biggs DO Coronary artery disease involving cachil dehe coronary artery of cachil dehe heart without angina pectoris (Primary Dx); Essential hypertension; Nonobstructive atherosclerosis of coronary artery; Dyslipidemia 2 3:30 PM EDT Office Visit [facility] SP[facility] HH [address] [place] [address] Mikey Christian MD Sacroiliitis (Primary Dx); Acute bilateral low back pain without sciatica; Spondylosis of lumbosacral region without myelopathy or radiculopathy; DDD (degenerative disc disease), lumbar 2 Refill [facility]P SPINE [address] [place] [address] Mikey Christian MD Medication Refill 2 [place] [address] Kendy Biggs DO Medication Refill 2 Telephone SEP H&V [place] [phone] Kendy Biggs DO Medication Question 2 [place] [address] Oumar Alves MD 2 11:00 AM EST Office Visit [place] [phone] Oumar Alves MD Spinal stenosis of lumbar region, unspecified whether neurogenic claudication present (Primary Dx) 2 Telephone SEP H&V [facility] [address] [place] [address] Kendy Biggs DO Other 2 Telephone [facility] [address] [place] [address] Oumar Alves MD Other 2 Telephone [facility] Spine [address] [place] [address] Mikey Christian MD Prior Authorization (Right GTB) 2 Telephone [facility] Sp[facility] [address] [place] [address] Mikey Christian MD Other (Questions Regarding Procedures.) 2 Orders Only [facility] Spine [address] [place] [address] Mikey Christian MD DDD (degenerative disc disease), lumbar (Primary Dx) 2 1:20 PM EST Office Visit [facility] HH [address] [place] [address] Mikey Christian MD Acute bilateral low back pain without sciatica 2 Travel 2 12:07 PM EST - 2 11:59 PM EST Hospital Encounter [facility] [address] [place] [place] [address] Mikey Christian MD Acute bilateral low back pain without sciatica Discharge Disposition: Home or Self Care 2 Travel 2 11:00 AM EST Office Visit [facility] [address] [place] [address] Mikey Christian MD Acute bilateral low back pain without sciatica (Primary Dx); DDD (degenerative disc disease), lumbar 1 Patient Outreach SEP [place] [address] [address] [place] [phone] Valeria Muñoz BUSINESS SYSTEMS TECHNICIAN Follow-Up Call 1 Travel 1 8:52 PM EST - 1 11:06 PM EST Emergency [facility] [address] [address] uRbi Martinez MD Acute exacerbation of chronic low back pain (Primary Dx) Discharge Disposition: Home or Self Care 1 6:48 PM EST - 1 7:04 PM EST Emergency [facility] S[address] [place] [address] Discharge Disposition: Left Without Being Seen 1 Telephone [facility] H&V [place] [id number] Kendy Biggs DO Medication Reaction 1 Travel 1 11:00 AM EST Office Visit [facility] [place] [address] [address] Janet Vogt MD Upper respiratory tract infection, unspecified type (Primary Dx); Insomnia, persistent 1 10:00 AM EST Office Visit [facility] Urology NPTFTT [address] [place] [address] Sandra Murrell PA-C Incomplete bladder emptying (Primary Dx); Dysuria; UTI symptoms 1 Travel 1 11:30 AM EST Office Visit [facility] [address] [address] Janet Vogt MD Muscle strain of chest wall, initial encounter (Primary Dx); Insomnia, persistent 1 Telephone [facility] [place] 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 [address] [place] [address] Kendy Biggs, Medication Refill 1 Telephone [facility] [address] [place] [address] Kendy Biggs, Labs Only 1 Refill [facility] [address] [place] [address] Kendy Biggs, Medication Refill 1 Telephone [facility] [address] [place] [address] Kendy Biggs, Hypertension; Dizziness 1 Travel 1 2:40 PM EDT Office Visit [facility] Gastro [facility] [address] [facility] [address] [place] [address] Gerardo Purcell MD Irritable bowel syndrome with constipation (Primary Dx); Gastroesophageal reflux disease, unspecified whether esophagitis present; Chronic cholecystitis 1 Travel 1 9:45 AM EDT Office Visit [facility] [place] [address] [place] [address] Kendy Biggs, DO Uncontrolled hypertension (Primary Dx); Dyslipidemia; Coronary artery disease involving cachil dehe coronary artery of cachil dehe heart without angina pectoris; Nonobstructive atherosclerosis of coronary artery 1 Nurse Triage [address]P [facility] [address] [place], [place] [id number] Lelo Dawkins, MARISSA 1 Telephone SEP H&V [facility] [place] [address] [place] [address] Kalyan, Kendy, DO Medication Problem 1 Orders Only [facility] [address] [place] [address] Chago Yara RangelCHRIS 1 Telephone SEP Gen Surg [facility] [address] [facility] [address] [place] [address] Geoff Gan MD Other 1 2:00 PM EDT Office Visit [facility] [place] [address] [address] Page Chatterjee, RN Encounter for counseling for care management of patient with chronic conditions and complex health needs using nurse-based model (Primary Dx) 1 1:00 PM EDT Office Visit [facility] [address] [place] [address] Janet Vogt MD Insomnia, persistent (Primary Dx); Irritable bowel syndrome with constipation 1 Travel 1 2:45 PM EDT Office Visit SEP Gen Surg [facility] [address] [facility] [address] [place] [address] Geoff Gan MD S/P laparoscopic cholecystectomy (Primary Dx); Anxiety 1 Telephone SEP H&V [facility] [address] [place] [address] Kalyan, Kendy, DO Hypotension; Fatigue 1 Patient Outreach SEP [facility] [address] [place] [address] Gracie Barba BA, COS ED Follow-Up Call 1 Travel 1 11:34 AM EDT - 1 4:47 PM EDT Emergency [facility] [place] [address] Tiana Orosco MD Spellman, Paul E, MD Non-intractable vomiting with nausea, unspecified vomiting type (Primary Dx) Discharge Disposition: Home or Self Care 1 Telephone [facility] [address] [place] [address] Janet Vogt MD Symptom Call (after surgery ) 1 Telephone SEP Vascular Surg Edg [address] [facility] [address] [place] [address] Liliya De [place] RMA Symptom Call (nausea) 1 Travel 1 1:30 PM EDT - 1 3:55 PM EDT Surgery EDG [facility] [place] [address] Geoff Gan MD DAVINCI ROBOTIC CHOLECYSTECTOMY 1 1:38 PM EDT Anesthesia Event EDG [facility] [place] [address] Denae Galarza MD Merkle Serey, Jennifer L, JOSE D 1 12:04 PM EDT - 1 5:36 PM EDT Hospital Encounter EDG SAME DAY SURGERY [facility] [place] [address] Geoff Gan MD Calculus of gallbladder without cholecystitis without obstruction; Calculus of gallbladder without cholecystitis without obstruction Discharge Disposition: Home or Self Care 1 Travel 1 1:00 PM EDT - 1 11:59 PM EDT Hospital Encounter [facility] [address] [place] [address] Covid19, Edg [facility] [place] Pre-op testing; Encounter for laboratory testing for COVID-19 virus Discharge Disposition: Home or Self Care 1 Orders Only SEP Gen Surg Edg [address] [facility] [address] [place] [address] Geoff Gan MD Calculus of gallbladder without cholecystitis without obstruction (Primary Dx) 1 Travel 1 10:30 AM EDT Office Visit [facility] [address] [place] [address] Janet Vogt MD Calculus of gallbladder without cholecystitis without obstruction (Primary Dx); Irritable bowel syndrome with constipation 1 Patient Outreach [facility] [address] [place] [address] Nelson Velázquez LPN ED Follow-Up Call 1 Telephone SEP Gen Surg Edg [address] [facility] [address] [place] [address] Geoff Gan MD Procedure 1 Travel 1 1:08 PM EDT - 1 4:01 PM EDT Emergency [facility] [place] [address] Sameer Coffey MD Constipation, unspecified constipation type (Primary Dx) Discharge Disposition: Home or Self Care 1 Nurse Triage [place] [address] [place] [address] Margarita Coffey RN 1 Travel 1 10:45 AM EDT Office Visit SEP Gen Surg Edg [address] [facility] [address] [place] [phone] Geoff Gan MD Calculus of gallbladder without cholecystitis without obstruction (Primary Dx) 1 Patient Outreach [facility] [address] [facility] [address] Nelson Velázquez LPN ED Follow-Up Call 1 2:19 PM EDT - 1 5:00 PM EDT Emergency [facility] [place] [address] Dre Foley MD Calculus of gallbladder without cholecystitis without obstruction (Primary Dx); Nausea vomiting and diarrhea Discharge Disposition: Home or Self Care 1 Travel 1 3:15 PM EDT Office Visit [facility] [place] [address] [address] Janet Vogt MD Diarrhea, unspecified type (Primary Dx) 1 [facility] [address] [address] Janet Vogt MD Appointment Needed (stomach pain) 1 Travel 1 4:30 PM EDT Office Visit [facility] Urgent [facility] [place] [address] [place] [phone] Lauryn Valiente MD Urinary frequency (Primary Dx); Cystitis 1 Telephone SEP Urology [address] [address] Sandra Murrell PA-C Other 1 Telephone SEP Ophthalmology Cov [address] [place] [address] [address] [place] [phone] Na Ang MD Other 1 [facility] [address] [address] Otto Arreaga MD Medication Refill [address] [address] Janet Vogt MD Medication Refill 1 Travel 1 9:00 AM EDT Office Visit [facility] Urology NPTFTT [address] [place] [phone] Heydi Merrill MD Incomplete bladder emptying (Primary Dx); Stranguria; Slow transit constipation; Cauda equina syndrome with neurogenic bladder (HCC); Microhematuria; Nocturia; Frequency of micturition 1 Refill [facility]V [facility] [place] [address] [place] [address] Kalyan, Kendy, DO Medication Refill 1 Travel 1 3:10 PM EDT Office Visit SEP Ophthalmology Cov [address] [address] Na Ang MD Refractive error (Primary Dx); Keratitis sicca, bilateral (HCC); Nuclear sclerotic cataract of right eye 1 Telephone [facility] [place] [address] [address] Janet Vogt MD Follow-up (dexa scan ) 1 Refill [facility] [place] [address] [address] Janet Vogt MD Medication Refill 1 Travel 1 11:00 AM EDT Clinical Support [facility] [place] [address] [address] Jayna Farooq MA Encounter for therapeutic drug monitoring (Primary Dx) 1 Travel 1 Travel 1 3:40 PM EDT Office Visit SEP Ophthalmology Cov [address] [address] Na Ang MD Nuclear sclerotic cataract of right eye (Primary Dx) 1 Travel 1 4:47 PM EDT - 1 11:59 PM EDT Hospital Encounter [facility] [address] [place], [place] [id number] Oneal Carrera, DPLauryn Arthritis of left ankle Discharge Disposition: Home or Self Care 1 Orders Only SEP Urology NPTFTT [address] [place] [phone] Heydi Merrill MD Incomplete bladder emptying (Primary Dx) 1 Travel 1 2:30 PM EDT Office Visit SEP Ophthalmology Cov [address] [address] Na Ang MD Nuclear sclerotic cataract of right eye (Primary Dx) 1 12:25 PM EDT - 1 12:50 PM EDT Surgery [facility]TT PERIOP [address] [place] [address] Na Ang MD CATARACT EXTRACTION WITH PHACOEMULSIFICATION AND INTRAOCULAR LENS 1 12:33 PM EDT Anesthesia Event [facility]TT [facility]IOP [address] [place] [address] Oumar Weiss MD Zehnder, Wende, MAJOR CASE DETECTIVE 1 10:15 AM EDT - 1 1:42 PM EDT Hospital Encounter FTT SAME DAY SURGERY [address] [place] [address] Na Ang MD Nuclear sclerotic cataract of right eye Discharge Disposition: Home or Self Care 1 Travel 1 1:19 PM EDT - 1 11:59 PM EDT Hospital Encounter [facility] [address] [place], [place] [id number] Covid19, Edg Lab [place] Pre-op testing; Encounter for laboratory testing for COVID-19 virus Discharge Disposition: Home or Self Care 1 2:29 PM EDT - 1 11:59 PM EDT Hospital Encounter FTT MOB DRAW SITE [address] [place] [phone] Essential hypertension; Other hyperlipidemia; Acquired hypothyroidism; Peripheral neuropathy, idiopathic Discharge Disposition: Home or Self Care 1 2:00 PM EDT Office Visit [facility] [address] [place] [address] Janet Vogt MD Peripheral neuropathy, idiopathic (Primary Dx) 1 Travel 1 Travel 1 1:15 PM EDT Office Visit [facility]P [facility] [place] [address] [place] [address] Kendy Biggs DO Uncontrolled hypertension (Primary Dx); Dyslipidemia; Coronary artery disease involving cachil dehe coronary artery of cachil dehe heart without angina pectoris; Heart murmur 1 Orders Only [facility] [address] [place] [phone] Yara Anders, [facility] 1 Travel 1 Travel 1 2:30 PM EDT Office Visit SEP Ophthalmology Cov [address] [facility] [address] [place] [phone] Na Ang MD Nuclear sclerotic cataract of right eye (Primary Dx) 1 Refill SEP Gastro [facility] [address] [facility] [address] [place] [address] Gerardo Purcell MD Medication Refill 1 Travel 1 2:30 PM EDT Office Visit SEP Ophthalmology Cov [address] [facility] [address] [place] [phone] Na Ang MD Nuclear sclerotic cataract of right eye (Primary Dx); Nuclear sclerotic cataract of left eye 1 2:30 PM EDT - 1 2:55 PM EDT Surgery [facility]TT [facility] [address] [place] [address] Na Ang MD CATARACT EXTRACTION WITH PHACOEMULSIFICATION AND INTRAOCULAR LENS 1 2:22 PM EDT Anesthesia Event FTT [facility] [address] [place] [address] Juan Lynn MD Collins, Angela, HORACE 1 12:46 PM EDT - 1 3:41 PM EDT Hospital Encounter FTT SAME DAY SURGERY [address] [place] [address] Na Ang MD Nuclear sclerotic cataract of left eye Discharge Disposition: Home or Self Care 1 Travel 1 Travel 1 1:00 PM EDT - 1 11:59 PM EDT Hospital Encounter [facility] [place] [address] [place] [address] Covid19, Edg Lab [place] Pre-op testing; Encounter for laboratory testing for COVID-19 virus Discharge Disposition: Home or Self Care 1 Travel 1 Travel 1 Telephone SEP Ophthalmology Cov [address] [facility] [address] [place] [address] Fatoumata Mantilla Follow-up 1 Travel 1 2:50 PM EST Office Visit SEP Ophthalmology Cov [address] [facility] [address] [place] [address] Na Ang MD Nuclear sclerotic cataract of left eye (Primary Dx); Narrow angle glaucoma of left eye; Anatomical narrow angle, bilateral ; Anatomical narrow angle, bilateral 1 Travel 1 Refill SEP Gastro [facility] [address] [facility] [address] [place] [address] Gerardo Purcell MD Medication Refill 1 Orders Only SEP [facility] [address] [place] [address] Yara Anders CCMA Essential hypertension (Primary Dx) 1 Telephone [facility]P H&V [facility] [place] [address] [place] [address] Kendy Biggs, Appointment Needed 1 Refill SEP Gastro CV[facility] [address] [facility] [address] [place] [address] Gerardo Purcell MD Medication Refill 0 Refill SEP Gastro CV[facility] [address] [facility] [address] [place] [address] Gerardo Purcell MD Medication Refill 0 Travel 0 1:02 PM EST - 0 11:59 PM EST Hospital Encounter [place] [facility] [address] [facility] [place], [place] [phone] Heydi Merrill MD Incomplete bladder emptying Discharge Disposition: Home or Self Care 0 Travel 0 Travel 0 10:20 AM EST Office Visit SEP Urology NPTFTT [address] [place] [phone] Heydi Merrill MD Incomplete bladder emptying (Primary Dx); Stranguria; Slow transit constipation; Cauda equina syndrome with neurogenic bladder (HCC) 0 Orders Only SEP [address] [address] Jamilah Hdez RMA Essential hypertension (Primary Dx) 0 Telephone SEP . [address] [address] Janet Vogt MD Medication Management (cloNIDine (CATAPRES) 0.2 mg/24 hr TD Patch Weekly 12 Patch 0 04/15/2020 ) 0 Telephone SEP . [address] [address] Janet Vogt MD Medication Management (cloNIDine (CATAPRES) 0.2 mg/24 hr TD Patch Weekly) 0 Refill SEP [address] [address] Janet Vogt MD Medication Refill 0 Travel 0 Refill SEP [address] [place], [place] [id number] Gerardo Purcell MD Medication Refill 0 Travel 0 Telephone SEP [address] [address] Janet Vogt MD Other (needs a return call.) 0 Travel 0 1:30 PM EDT Clinical Support [address] [address] Jayna Farooq MA Viral URI with cough (Primary Dx) 0 Telephone [facility] [place] [address] [address] Janet Vogt MD Orders (covid test ) 0 11:45 AM EDT Telemedicine [facility] [place] [address] [address] Severo Harrell DO Viral URI with cough (Primary Dx) 0 Telephone [facility]P [place] [address] [address] Janet Vogt MD Orders (sore throat , body aches ) 0 Travel 0 12:15 PM EDT Ancillary Procedure [facility] [place] [address] [place] [phone] Subcutaneous mass of supraclavicular area 0 Travel 0 11:45 AM EDT Office Visit [facility]P [place] [address] [address] Janet Vogt MD Subcutaneous mass of supraclavicular area (Primary Dx) 0 Travel 0 Refill [facility] [address] [facility] [address] [place] [address] Gerardo Purcell MD Medication Refill 0 Travel 0 12:14 PM EDT - 0 11:59 PM EDT Hospital Encounter [facility]SE [address] [facility] [place] [address] Janet Vogt MD Post-menopausal Discharge Disposition: Home or Self Care 0 1:53 PM EDT - 0 11:59 PM EDT Hospital Encounter FTT MOB DRAW SITE [address] [place] [phone] Acute pain of both shoulders Discharge Disposition: Home or Self Care 0 1:00 PM EDT Office Visit [facility] [address] [place] [phone] Severo Harrell DO Acute pain of both shoulders (Primary Dx) 0 Travel 0 Travel 0 Travel 0 6:05 AM EDT - 0 11:59 PM EDT Hospital Encounter [facility]G [facility] EKG ATTN: Appointments in this department are performed at various locations in the community on our Cardiovascular mobile health unit. You can look online to verify your site or call [phone]. [place] [id number] Leoncio Haywood APRN Screening for cardiovascular condition Discharge Disposition: Home or Self Care 0 6:03 AM EDT - 0 6:04 AM EDT Hospital Encounter [facility] ECHO VAS ATTN: Appointments in this department are performed at various locations in the community on our Cardiovascular mobile health unit. You can look online to verify your site or call [phone] [address] Leoncio Haywood APRN Screening for cardiovascular condition Discharge Disposition: Home or Self Care 0 Orders Only SEP H&V [facility] [place] [address] [place] [address] Colleen Dunne [facility] 0 Refill [facility] [address] [place] [address] Janet Vogt MD Medication Refill 0 Refill [facility] [address] [place] [phone] Janet Vogt MD Medication Refill 0 Orders Only SEP H&V [facility] [place] [address] [place] [address] Anderson Alejandra MA Essential hypertension (Primary Dx) 0 Refill SEP Gastro CV[facility] [address] [facility] [address] [place] [id number] Gerardo Purcell MD Medication Refill 0 Refill SEP H&V CVH [facility] [address] [place] [address] William Presley PA-C Medication Refill 0 Refill SEP Urology NPTFTT [address] [place] [address] Heydi Merrill MD Medication Refill 0 Travel 0 Travel [address] [address] Janet Vogt MD Orders 0 Travel 0 2:00 PM EDT Telemedicine [facility] H&V [address] [address] Kendy Biggs DO Nonobstructive atherosclerosis of coronary artery (Primary Dx); Mixed hyperlipidemia; Essential hypertension; Dyslipidemia 0 Travel 0 2:20 PM EDT Office Visit [facility] Urolog[address] [address] Heydi Merrill MD Stranguria (Primary Dx); Incomplete bladder emptying; Frequency of micturition; Nocturia 0 Travel [address] [address] Heydi Merrill MD Other (trouble with urinating.) 0 Travel 0 Travel 0 11:15 AM EDT Telemedicine [address] [address] Janet Vogt MD Acquired hypothyroidism (Primary Dx); Essential hypertension; Other hyperlipidemia; Incomplete bladder emptying 0 Telephone SEP [facility] [place] [address] Gerardo Purcell MD Medication Question 0 Telephone SEP Gastro CV [address] [place] [facility] [address] [place] [address] Gerardo Purcell MD Medication Management 0 Telephone [facility] [address] [place] [address] Janet Vogt MD Other 0 Telephone [facility] [address] [place] [address] Janet Vogt MD Lab Orders (antibody test for CV-19) 0 Travel 0 Lab Requisition [facility] LABORATORY [facility] [address] [place], [place] [address] Gerardo Purcell MD Personal history of colonic polyps; Other specified diseases of intestine 0 Orders Only SEP Gastro CV [address] [facility] [address] [place] [address] Gerardo Purcell MD 0 Travel 0 Telephone [facility] [place] [address] Roderick Santoyo MD PHD Procedure 0 Telephone SEP Gastro CV [address] [facility] [address] [place] [address] Gerardo Purcell MD Medication Question 0 1:30 PM EST Office Visit SEP Urology NPTFTT [address] [place] [address] Heydi Merrill MD Dysuria (Primary Dx); Incomplete bladder emptying; Urinary urgency; Irritable bowel syndrome with constipation 0 Telephone SEP Gastro CV [address] [facility] [address] [facility] Violeta Victoria APRN Medication Management (ELAVIL PA) 0 Telephone SEP Gastro CV [address] [facility] [address] [place] [address] Violeta Victoria APRN Medication Management 0 2:30 PM EST Office Visit SEP Gastro CV [address] [facility] [address] [facility], [place] [id number] Violeta Victoria APRN Nausea (Primary Dx); Dry heaves; Abdominal fullness; Hx of colonic polyps; Irritable bowel syndrome with constipation; Special screening for malignant neoplasms, colon 0 Orders Only SEP Urology [address] [phone] Handy, Sandra A, PA-C Incomplete bladder emptying (Primary Dx) 0 Telephone SE[facility] Urology [address] [address] Handy, Sandra A, PA-C Other (medication issues) 0 Orders Only SEP Urology NPTFTT [address] [place] [address] Handy, Sandra A, PA-C 0 Telephone SEP Urology NPTFTT [address] [place] [address] Handy, Sandra A, PA-C Other 0 1:45 PM EST Office Visit SEP Urology NPTFTT [address] [place] [address] Handy, Sandra A, PA-C Nausea (Primary Dx); Acute UTI; Microhematuria; Incomplete bladder emptying 0 Telephone SEP Gastro CV [address] [facility] [address] [place] [address] Geradro Purcell MD Nausea 9 9:15 AM EST Office Visit SEP Urology [address] [address] Sandra Murrell PA-C Incomplete bladder emptying (Primary Dx); Dysuria; Acute UTI 9 1:30 PM EST Office Visit [facility] H&[address] [address] Kendy Biggs, Coronary artery disease involving cachil dehe coronary artery of cachil dehe heart without angina pectoris (Primary Dx); Heart murmur; Mixed hyperlipidemia; Essential hypertension; Acquired hypothyroidism 9 10:00 AM EST Office Visit [facility] Urology NPTFTT [address] [place] [address] Heydi Merrill MD Incomplete bladder emptying (Primary Dx); Dysuria; Other constipation 9 Telephone [facility] [address] [facility] [address] [place] [address] Gerardo Purcell MD Other 9 2:00 PM EST Office Visit [facility] [place] [address] [address] Janet Vogt MD Dysuria (Primary Dx) 9 2:04 PM EST - 9 11:59 PM EST Hospital Encounter [facility] M[facility] [address] [place] [address]. [place] [address] Janet Vogt MD Encounter for screening mammogram for malignant neoplasm of breast Discharge Disposition: Home or Self Care [address] [address] Kendy Biggs, Medication Refill [address] [address] Jamilah Stacy, auto parts counter person Change 9 12:45 PM EDT Office Visit [address] [address] Flaca Aguila MD UTI symptoms (Primary Dx) 9 9:15 AM EDT Office Visit [facility] Dermatology [facility] [address] [facility] [address] [place] [address] Chandni Murillo MD History of basal cell carcinoma (BCC) (Primary Dx); SK (seborrheic keratosis); Nevus; Other viral warts; Pain of skin; Disturbance of skin sensation 9 2:45 PM EDT Office Visit [facility] [address] [place] [address] Kendy Biggs DO Mixed hyperlipidemia (Primary Dx); Coronary artery disease involving cachil dehe coronary artery of cachil dehe heart without angina pectoris; Heart murmur; Essential hypertension; Acquired hypothyroidism 9 1:15 PM EDT Office Visit [facility] [address] [place] [address] Sandee Matthews RMA Chest pain, unspecified type (Primary Dx); SOB (shortness of breath) 9 2:20 PM EDT Office Visit [facility] Gastro [facility] [address] [facility] [address] [place] [address] Gerardo Purcell MD Irritable bowel syndrome with constipation (Primary Dx); History of colon polyps 9 11:15 AM EDT Office Visit [facility] [address] [place] [address] Janet Vogt MD Medicare annual wellness visit, subsequent (Primary Dx); Essential hypertension; Acquired hypothyroidism; Other hyperlipidemia; Strain of neck muscle, initial encounter 9 Patient Outreach SEP [facility] [address] [place] [address] [place], RN Medicare Annual Wellness; Osteoarthritis; Schedule Appointment 9 Refill [facility] [address] [place] [address] William Presley PA-C Medication Refill 9 Orders Only [facility]P [place] [place] [facility] [address] [place] [phone] aYra Anders CCMA Essential hypertension (Primary Dx) 9 Telephone SEP [place] [facility] [address] [place] [address] Janet Vogt MD Medication Management 9 Telephone SEP [place] [address] [address] Janet Vogt MD Medication Management (clonidine ) 9 10:32 AM EDT - 9 11:59 PM EDT Hospital Encounter FTT [facility] SITE [address] [place] [address] Essential hypertension; Acquired hypothyroidism Discharge Disposition: Home or Self Care 9 10:15 AM EDT Office Visit [facility]P [place] [address] [address] Janet Vogt MD Acquired hypothyroidism (Primary Dx); Essential hypertension; Irritable bowel syndrome with diarrhea; Mixed hyperlipidemia; Other hyperlipidemia 9 Orders Only SEP Urology [address] [address] Sandra Murrell PA-C 9 10:00 AM EDT - 9 11:59 PM EDT Hospital Encounter [facility] XR [address] [place] [address] Slow transit constipation Discharge Disposition: Home or Self Care 9 9:00 AM EDT Office Visit SEP Urology [address] [place] [address] [place] [address] Sandra Murrell PA-C Incomplete bladder emptying (Primary Dx); Slow transit constipation; Cauda equina syndrome with neurogenic bladder (HCC) 9 10:30 AM EDT Office Visit SEP H&V [facility] [place] [address] [place] [address] William Presley PA-C Uncontrolled hypertension; Chest pain, unspecified type; SOB (shortness of breath); Dizziness; Bradycardia; Mixed hyperlipidemia; Heart murmur 9 2:00 PM EDT Office Visit [facility] Ophthalmology Cov [address] [facility] [address] [place] [phone] Na Ang MD Keratitis sicca, bilateral; Bilateral ocular hypertension 9 9:20 AM EDT Office Visit [facility] Urology NPTT [address] [place] [address] Heydi Merrill MD Incomplete bladder emptying (Primary Dx); Urinary urgency; Chronic constipation; Weak urine stream Telephone [facility] H&V [facility] [address] [place] [address] Bernadette Louise RMA Visit Follow Up 9 9:51 AM EDT - 11:59 PM EDT Hospital Encounter [facility] [place], [place] [id number] Manav Batista MD Screening for condition Discharge Disposition: Home or Self Care 9 9:20 AM EDT Office Visit [facility] Urology [facility] [address] [place] [address] Heydi Merrill MD Urine frequency (Primary Dx); Incomplete bladder emptying; Chronic constipation 10:45 AM EDT Office Visit [facility] [address] [place] [address] Kendy Biggs DO Essential hypertension (Primary Dx); Acquired hypothyroidism; Dyslipidemia; Uncontrolled hypertension 9 9:56 AM EST - 11:59 PM EST Hospital Encounter [facility]TT VASCULAR LAB [address] [place] [address]. [place] [address] William Presley PA-C Uncontrolled hypertension; SOB (shortness of breath); Dizziness; Chest pain, unspecified type; Mixed hyperlipidemia; Bradycardia; Labile hypertension Discharge Disposition: Home or Self Care 9 2:30 PM EST Office Visit [facility] [address] [place] [address] Eduardo Mejia MD Tinnitus, bilateral (Primary Dx); Dizziness, nonspecific; Bilateral ocular hypertension; Optic neuropathy, left; Essential hypertension; Clicking tinnitus of both ears; Sensorineural hearing loss (SNHL) of both ears 9 2:30 PM EST Office Visit SEP H&V [facility] [address] [place] [address] William Presley PA-C Uncontrolled hypertension (Primary Dx); SOB (shortness of breath); Dizziness; Chest pain, unspecified type; Mixed hyperlipidemia; Bradycardia; Labile hypertension 9 Telephone [facility] H&V [facility] [address] [place] [address] Kendy Biggs, Other 9 Telephone [facility] H&V [place] [address] [place] [address] Kendy Biggs, Appointment Needed 9 1:00 PM EST Office Visit SEP Ophthalmology Cov [address] [facility] [address] [address] [place] [phone] Na Ang MD Keratitis sicca, bilateral (Primary Dx); Cataract, nuclear sclerotic senile, bilateral; Bilateral ocular hypertension; Optic neuropathy, left 9 11:43 PM EST - 9 3:51 AM EST Emergency [facility] [address] [place] [address] Sameer Coffey MD Hypertension, unspecified type (Primary Dx); Loose stools; Nausea Discharge Disposition: Home or Self Care 9 1:45 PM EST Office Visit [facility] [address] [facility] [address] [place] [phone] Na Ang MD Optic neuropathy, left 9 1:48 PM EST - 9 4:19 PM EST Emergency . [facility] [address] [place] [address] Jaylyn Talavera MD Nausea (Primary Dx) Discharge Disposition: Home or Self Care 9 Telephone [facility] [address] [facility] [address] [place] [phone] Na Ang MD Medication Problem 9 12:20 PM EST - 9 11:59 PM EST Hospital Encounter [facility] [address] [place] [phone] Kendy Biggs DO Uncontrolled hypertension; Chest pain, unspecified type; SOB (shortness of breath); Dizziness; Bradycardia; Mixed hyperlipidemia; Heart murmur Discharge Disposition: Home or Self Care 9 8:15 AM EST Office Visit [facility] [address] [place] [address] [address] [place] [address] Na Ang MD Refractive error (Primary Dx); Keratitis sicca, bilateral; Cataract, nuclear sclerotic senile, bilateral; Bilateral ocular hypertension; Optic neuropathy, left 9 11:00 AM EST Office Visit [facility] [address] [place] [address] William Presley PA-C Uncontrolled hypertension (Primary Dx); SOB (shortness of breath); Dizziness; Heart murmur; Mixed hyperlipidemia; Bradycardia 8 Telephone [facility] [address] [place] [address] Kendy Biggs DO Prior Authorization (benicar) 8 Telephone [facility] [address] [place] [address] Kendy Biggs DO Hospital Follow Up 8 5:25 PM EST - 8 4:12 PM EST Hospital Encounter [facility] [address] [address] [place] [address] Sameer Coffey MD Banks, David, MD Gaston, Richard L, MD Hypertensive urgency (Primary Dx); Lightheadedness Discharge Disposition: Home or Self Care 8 Telephone MD Adult Med 1 [facility]17 Daisy Garcia APRN Blood Pressure Check 8 Abstract [facility] [address] [place] [address] Kalyan KendyDO 8 8:00 AM EST Office Visit [facility] [address] [place] [address] Kalyan, Kendy, DO Uncontrolled hypertension (Primary Dx); Chest pain, unspecified type; SOB (shortness of breath); Dizziness; Bradycardia; Mixed hyperlipidemia; Heart murmur 8 12:52 PM EDT - 8 11:59 PM EDT Hospital Encounter [facility] [address] [place] [address] Elvira Velarde MD Encounter for screening mammogram for malignant neoplasm of breast Discharge Disposition: Home or Self Care 7 2:15 PM EDT Office Visit [facility] Dermatology [facility] [address] [phone] Chandni Murillo MD Other viral warts (Primary Dx); History of basal cell carcinoma; Nevus; SK (seborrheic keratosis); Khalil angioma; Disturbance of skin sensation 7 1:46 PM EDT - 7 11:59 PM EDT Hospital Encounter [facility] [address] [place] [address] Elvira Velarde MD Encounter for screening mammogram for malignant neoplasm of breast Discharge Disposition: Home or Self Care 7 2:04 PM EDT Hospital Encounter [facility] Referral Lab 1 [place] [address] Oumar Alves MD Low back pain 6 5:30 PM EDT Office Visit [facility] Urgent Care [facility] [address] [place] [phone] Liberty Treadwell APRN Ruptured ear drum, left [...] online to verify your site or call [phone] [address] Leoncio Haywood APRN Screening for other and unspecified cardiovascular conditions Discharge Disposition: Home or Self Care 5 12:35 PM EDT - 5 11:59 PM EDT Hospital Encounter [facility] [address] [place] [address] Elvira Velarde MD Other screening mammogram Discharge [...] 3 11:59 PM EST Hospital Encounter [facility] [address] [place] [address] Geoff Dozier MD Radiculopathy, lumbar region Discharge Disposition: Home or Self Care 2 3:38 PM EST - 2 11:59 PM EST Hospital Encounter [facility] [address] [place] [address] Geoff Dozier MD Right knee pain Discharge Disposition: Home or Self Care 2 2:28 PM EDT - 2 11:59 PM EDT Hospital Encounter [facility] [address] [place] [address] Geoff Gant Thoracic or lumbosacral neuritis or radiculitis, unspecified Discharge Disposition: Home or Self Care 2 1:59 PM EST - 2 11:59 PM EST Hospital Encounter [facility] [place] [address] Claire Barnett Other screening mammogram Discharge Disposition: Home or Self Care 2 6:19 PM EST - 2 11:59 PM EST Hospital Encounter [facility]UW[facility] PROCESSING [facility] [place] [address] Discharge Disposition: Home or Self Care 1 12:49 PM EST - 1 11:59 PM EST Hospital Encounter [facility] [place] [address] Maxime Araiza MD Osteopenia Discharge Disposition: Home or Self Care 1 11:52 AM EST - 1 12:48 PM EST Hospital Encounter [facility] [place] [address] Provider, Not In Epic Stress fracture foot; Osteoporosis Discharge Disposition: Home or Self Care 1 11:48 AM EST - 1 11:51 AM EST Hospital Encounter [facility] [place] [address] Britt Domingo MD Other screening mammogram [...] PM EST Hospital Encounter [facility] Maxime Wladen MD 8 12:01 AM EDT - 8 [...] PM EDT Hospital Encounter [facility] Roderick Huynh MD 6 12:07 PM EDT - 6 11:59 PM EDT Hospital Encounter [facility] Roderick Huynh MD 4 12:01 AM EDT - 4 11:59 PM EDT Hospital Encounter [facility] Maxime Jaramillo MD 3 12:01 AM EDT - 3 11:59 PM EDT Hospital Encounter [facility] YEISON Araiza, Christopher A, MD 2 1:31 AM EDT - 2 11:59 PM EDT Hospital Encounter [facility] WOMaxime Gan MD 2 12:45 PM EST - 2 [...] Hospital Encounter [facility] EPIC CON UNK COV [facility] [place] Allergies Active Allergy Reactions Criticality Noted [...] (ASTELIN) 137 mcg (0.1 %) Nasl Aerosol, Carlton USE 1 SPRAY(S) IN EACH NOSTRIL TWICE [...] completed by Chen Uribe RN on 04/04/2023. [facility] - Mikey Christian MD Interventional Pain Protocol: NS Appt 07/22/22 Letter Sent Ernesto report completed (EVERY 3 MONTHS) ( 08/09/22) Pharmacy: [facility] [id number] [place] [address] - [address] [phone] Problem Noted Date Diagnosed Date Secondary adrenal [...] (11/26/2020): Added automatically from request for surgery [id number] Narrow angle glaucoma of left eye 07/10/2020 [...] (08/16/2024 2:03 PM EDT): s/p CEIOL (CPT 83483) for Nuclear sclerotic cataract of right eye [H25.11] on 08/27/2020. s/p CEIOL (CPT 09249) for Nuclear sclerotic cataract of left eye [H25.12] on 07/30/2020. Has developed PCO. Discussed findings, options and risks with patient. She would like to monitor at this time. Assessment & Plan (02/03/2023 2:57 PM EDT): s/p CEIOL (CPT 58635) for Nuclear sclerotic cataract of right eye [H25.11] on 08/27/2020. s/p CEIOL (CPT 53507) for Nuclear sclerotic cataract of left eye [H25.12] on 07/30/2020. Assessment & Plan (10/08/2021 1:20 PM EDT): s/p CEIOL (CPT 23661) for Nuclear sclerotic cataract of right eye [H25.11] on 08/27/2020. s/p CEIOL (CPT 97262) for Nuclear sclerotic cataract of left eye [H25.12] on 07/30/2020. Assessment & Plan (09/25/2020 3:35 PM EDT): s/p CEIOL (CPT 86174) for Nuclear sclerotic cataract of right eye [H25.11] on 08/27/2020. Patient healing as expected. s/p CEIOL (CPT 48690) for Nuclear sclerotic cataract of left eye [H25.12] on 07/30/2020. Patient healing as expected. Assessment & Plan (09/04/2020 4:12 PM EDT): POW1 s/p CEIOL (CPT 08572) for Nuclear sclerotic cataract of right eye [H25.11] on 08/27/2020. Patient healing as expected. Continue post op precautions. Patient to follow up in 3 week(s) s/p CEIOL (CPT 57962) for Nuclear sclerotic cataract of left eye [H25.12] on 07/30/2020. Patient healing as expected. Assessment & Plan (08/28/2020 2:59 PM EDT): POD1 s/p CEIOL (CPT 71048) for Nuclear sclerotic cataract of right eye [H25.11] on 08/27/2020. Patient healing as expected. Continue post op precautions. Patient to follow up in 1 week(s) s/p CEIOL (CPT 97766) for Nuclear sclerotic cataract of left eye [...] to proceed with standard. s/p CEIOL (CPT 66612) for Nuclear sclerotic cataract of left eye [H25.12] on 07/30/2020. Patient healing as expected. Assessment & Plan (07/31/2020 2:50 PM EDT): POD1 s/p CEIOL (CPT 57707) for Nuclear sclerotic cataract of left eye [...] Alive Social History Smoking Status as of 01/18/2025 Tobacco Use Types Packs/Day Years Used Date Smoking Tobacco: Never Assessed Overall Financial Resource Strain (CARDIA) Answe r Date Recorded How hard is it for you to pa y for the very basics like food, housing, medical care, and heating? Not hard at all 11/25/2020 PHQ-2 Answer Date Recorded PHQ-2 Total Score 0 07/28/2022 [facility] [place] [facility] Occupat ional Health - Occupational Stress [...] EDT Office Visit [facility] [address] [employer] [place] [phone] Liliya Guadarrama, RD,LD [address] [place] [address] 05/07/2025 12:40 PM EST Office Visit [facility] [place] [address] [phone] Katharine Whitlock MD [address] [employer] [address] [address] 08/15/2025 1:40 PM EDT Office Visit [facility] [address] [employer] [address] [address] Na Ang MD [facility] [address] [facility] [address] [place] [address] Medical Devices Implanted Type Area Hse Manager Device Identifier Shelf Expiration Date Model / Serial / Lot Lens +22.5d 6x13mm [employer] Ul[employer] [id number] Pc 1-Pc - [id number] Implanted:Qty: 1 on 07/30/2020 by Na Ang MD at [facility] Left: Eye [facility]:SURG [id number] 02/25/2023 AU00T0 .225 / [id number] / Lens +23d 6x13mm [employer] Ultrasert [id number] Pc 1-Pc Basell - [id number] Implanted:Qty: 1 on 08/27/2020 by Na Ang MD at [facility] Right: Eye [employer]:SURG [id number] 03/21/2023 AU00T0.230 / [id number] / Procedures Procedure Name Priority Date/Time [...] Routine 09/16/2022 1:45 PM EDT Cervical pain WA ARTHROCENTESIS ASPIR&/INJ MAJOR JT/BURSA W/O US Routine [...] PM EST Abdominal pain, unspecified abdominal location NON-NURSE RESEARCH CYTOLOGY REQUEST Routine 05/05/2022 4:39 PM EST Microhematuria URINALYSIS Routine 05/05/2022 4:39 PM EST Microhematuria URINE CULTURE (NO STAIN) Routine 05/05/2022 4:39 PM EST Microhematuria SEP URINALYSIS POC Routine 05/05/2022 3:21 PM EST Microhematuria URINALYSIS STAT 04/28/2022 7:23 AM EST UA W/REFLEX TO CULTURE STAT 7:23 AM EST EXTRA [place] URINE CX STAT 04/28/2022 7:23 AM EST [id number] A/B Routine 04/28/2022 6:38 AM EST EMG [...] 12:15 PM EDT Screening for cardiovascular condition AR US VASCULAR CVMHU SCREENING SINGLE EXAM Routine [...] Cardiology Consultation Admission: 04/25/2018 Patient: Gilbert Moreira [id number] PCP:Elvira Velarde Ase Certified Technician: Kendy Biggs MD Presents with hypertension Cardiology consulted for hypertension PMH includes HTN, HLD, hypothyroidism Reports issue with increased blood pressure for past several days.[facility] to [facility]. Presented to [...] Tab 5 fluticasone (FLONASE) 50 mcg/actuation Nasl Carlton, Suspension 1 Carlton byNasal route daily. (Patient not taking: Reported [...] numbness. Code Stroke. CT head stroke protocol 3hours today. COMPARISON: None. PROCEDURE COMMENTS: Following theintravenous [...] most recent cardiovascular imaging studies availabe in [facility] EMR werereviewed at time of consultation [...] Further input to follow per Dr. Jamal Loiuse APRN EK EKG 12 LEAD STAT 04/24/2018 [...] 1:33 PM EDT Visit for screening mammogram [facility] VASCULAR CVMHU SCREENING SINGLE EXAM [...] 57 >=50 mg/dL 12/14/2024 4:58 PM EDT [facility] Blood VENOUS BLOOD / Unknown Venipuncture / Unknown 12/14/2024 4:27 PM EDT 12/14/2024 4:27 PM EDT us Katharine Whitlock MD CHEMISTRY ORDERABLES Final Resu lt [facility] [address] [place] [address] * GLUCOSE 2.5 HOUR (12/14/2024 3:52 PM EDT) Gluc 2.5 Hr 80 >=50 mg/dL 12/14/2024 4:36 PM EDT [facility] Blood VENOUS BLOOD / Unknown Venipuncture / Unknown 12/14/2024 3:52 PM EDT 12/14/2024 3:52 PM EDT us Katharine Whitlock MD CHEMISTRY ORDERABLES Final Resu lt Performing Organization Address City/[facility] Co de Phone Number [facility] [address] [place] [address] * GLUCOSE HYPOGLYCEMIA 2 HOUR (GTT) (12/14/2024 3:16 PM EDT) Gluc 2 Hr 84 <140 mg/dL 12/14/2024 3:52 PM EDT [facility] Blood VENOUS BLOOD / Unknown Venipuncture / Unknown 12/14/2024 3:16 PM EDT 12/14/2024 3:16 PM EDT us Katharine Whitlock MD CHEMISTRY ORDERABLES Final Resu lt Performing Organization Address [facility] de Phone Number [facility] [address] [place] [address] * GLUCOSE 1.5 HOUR (12/14/2024 2:42 PM EDT) Glu 1.5 Hr 87 mg/dL 12/14/2024 3:31 PM EDT [facility] Blood VENOUS BLOOD / Unknown Venipuncture / Unknown 12/14/2024 2:42 PM EDT 12/14/2024 2:42 PM EDT us Katharine Whitlock MD CHEMISTRY ORDERABLES Final Resu lt Performing Organization Address [facility] de Phone Number [facility] [address] [place] [address] * GLUCOSE HYPOGLYCEMIA 1 HOUR (GTT) (12/14/2024 2:11 PM EDT) Gluc 1 Hr 89 - mg/dL 12/14/2024 3:02 PM EDT [facility] Blood VENOUS BLOOD / Unknown Venipuncture / Unknown 12/14/2024 2:11 PM EDT 12/14/2024 2:11 PM EDT Katharine Whitlock MD CHEMISTRY ORDERABLES Final Resu lt Performing Organization Address City/[facility] Co de Phone Number [facility] [address] [place] [address] * GLUCOSE .5 HOUR (12/14/2024 1:36 PM EDT) Gluc .5 Hr 136 mg/dL 12/14/2024 2:12 PM EDT [facility] Blood VENOUS BLOOD / Unknown Venipuncture / Unknown 12/14/2024 1:36 PM EDT 12/14/2024 1:34 PM EDT Katharine Whitlock MD CHEMISTRY ORDERABLES Final Resu lt Performing Organization Address [facility] de Phone Number [facility] [address] [place] [address] * LIPOPROTEIN (A) (12/14/2024 12:41 PM EDT) Only the most recent of2 resultswithin the time period is included. Pathologist [facility] Lipoprotein (a) 16 <30 mg/dL 7:13 PM EDT [employer] Blood VENOUS BLOOD / Unknown Venipuncture / Unknown 12/14/2024 12:41 PM EDT 12/14/2024 2:23 PM EDT Katharine Whitlock MD CHEMISTRY ORDERABLES Final Resu lt Performing Organization Address City/[facility] Co de Phone Number [employer] [address] [place] [address] , [address] [place] [phone] * (ABNORMAL) IRON+TIBC (12/14/2024 12:41 PM EDT) Iron 78 30 - 160 mcg/dL 12/14/2024 6:49 PM EDT [facility] [employer], [facility] Transferrin 298 200 - 360 mg/dL 12/14/2024 6:49 PM EDT [facility] [employer], [facility] [employer] Saturation 19(L) 20 - 50 % 12/14/2024 6:49 PM EDT [facility] LAB [employer], [facility] TIBC 417(H) 250 - 400 mcg/dL 12/14/2024 6:49 PM EDT [facility] [employer], [facility] Blood VENOUS BLOOD / Unknown Venipuncture / Unknown 12/14/2024 12:41 PM EDT 12/14/2024 2:23 PM EDT Katharine Whitlock MD CHEMISTRY ORDERABLES Final Resu lt [facility] [employer] [facility] [address] [facility] , [place] [address] * GLUC HYPOGLYCEMIA FASTING (GTT) (12/14/2024 12:41 PM EDT) Pathologist [facility] Glucose Fasting 92 <100 mg/dL 12/14/2024 1:33 PM EDT [facility] Blood VENOUS BLOOD / Unknown Venipuncture / Unknown 12/14/2024 12:41 PM EDT 12/14/2024 1:07 PM EDT Katharine Whitlock MD CHEMISTRY ORDERABLES Final Resu lt [facility] [address] [place] [id number] * THYROID PEROXIDASE (TPO) ANTIBODY (12/14/2024 12:41 PM EDT) Only the most recent of2 resultswithin the time period is included. Pathologist [facility] TPO Ab <3.00 <=5.59 IU/mL 12/14/2024 7:09 PM EDT [facility] [employer] Blood VENOUS BLOOD / Unknown Venipuncture / Unknown 12/14/2024 12:41 PM EDT 12/14/2024 2:22 PM EDT Katharine Whitlock MD IMMUNOLOGY ORDERABLES Final Res ult PREFERRED [employer] [facility] [address] [facility] , [place] [address] * LIPID PANEL REFLEX (12/14/2024 12:41 PM EDT) Only the most recent of2 resultswithin the time period is included. Cholesterol 158 <200 mg/dL 12/14/2024 6:49 PM EDT [facility] [employer] [facility] Comment: < 200 Desirable 200 - 239 Borderline High >= 240 High Triglyceride 97 <150 mg/dL 12/14/2024 6:49 PM EDT [facility] [employer] [facility] Comment: < 150 Normal 150 - 199 Borderline High 200 - 499 High >= 500 Very High HDL 49 >=40 mg/dL 12/14/2024 6:49 PM EDT [facility] [employer] [facility] Comment: > 60 Optimal 40 - 60 Acceptable < 40 Low LDL Calculated 91 <100 mg/dL 12/14/2024 6:49 PM EDT [facility] [employer] [facility] Comment: < 100 Optimal 100 - 129 Near or above optimal 130 - 159 Borderline High 160 - 189 High >= 190 Very High The National Institutes of Health (NIH) equation is used for all lipid panels that report calculated LDL (LDL-C). Non-HDL-C Calculated 109 <=129 mg/dL 12/14/2024 6:[address] [employer] [facility] Comment: <130 Desirable 130-159 Above Desirable 160-189 Borderline High 190-219 High >= 220 Very High Fasting Specimen? Yes None 025 6:49 PM EDT [facility] [employer] [facility] Blood VENOUS BLOOD / Unknown Venipuncture / Unknown 12/14/2024 12:41 PM EDT 12/14/2024 2:23 PM EDT Katharine Whitlock MD CHEMISTRY ORDERABLES Final Resu lt Performing Organization Address City/[facility] Co de Phone Number [facility] [employer] [address] , [place] [address] * VITAMIN D 25 HYDROXY (12/14/2024 12:41 PM EDT) Only the most recent of2 resultswithin the time period is included. Pathologist [facility] Vit D 25 OH 72.0 30.0 - 150.0 ng/mL 12/14/2024 6:58 PM EDT [facility] [employer] [facility] Comment: Preferred: >= 30 ng/mL Insufficient: 21-29 [...] CHEMISTRY ORDERABLES Final Resu Performing Organization Address [facility] de Phone Number [facility] [employer] [address] , [place] [address] * VITAMIN D, 1,25-DIHYDROXY -REF LAB (12/14/2024 12:41 PM EDT) [facility] Vit D 1,25 46.9 19.9 - 79.3 pg/mL 12/16/2024 2:37 PM EDT [employer] Comment: INTERPRETIVE INFORMATION: Vitamin D, 1,25-Dihydroxy This test is primarily indicated during patient evaluation for hypercalcemia and renal failure. A normal result does not rule out Vitamin D deficiency. The recommended test for diagnosing Vitamin D deficiency is Vitamin D 25-hydroxy. Performed By: [employer] [address] [place] [id number] Human Resources Assistant: Uvaldo Youssef MD, PhD CLIA Number: [id number] Blood VENOUS BLOOD / Unknown Venipuncture / Unknown 12/14/2024 12:41 PM EDT 12/14/2024 2:31 PM EDT Katharine Whitlock MD CHEMISTRY ORDERABLES Final Resu lt Performing Organization Address [facility]/ZIP Co de Phone Number [employer] [address] [place] [address] * (ABNORMAL) DEHYDROEPIANDROSTERONE SULFATE (12/14/2024 12:41 PM EDT) Dhea Sulfate 10.40(L) 12.00 - 154.00 mcg/dL 12/14/2024 6:58 PM EDT [employer] Blood VENOUS BLOOD / Unknown Venipuncture / Unknown 12/14/2024 12:41 PM EDT 12/14/2024 3:30 PM EDT Narrative PREFERRED [employer] - 12/14/2024 6:58 PM EDT Ingestion of aldair doses of biotin (>5 mg/day) taken within 8 hours of drawing blood sample can interfere with this immunoassay test. Katharine Whitlock MD CHEMISTRY ORDERABLES Final Resu Performing Organization Address [facility] Co de Phone Number [facility] [employer] [address] [facility], [place] [address] * THYROGLOBULIN ANTIBODY -REF LAB (12/14/2024 12:41 PM EDT) Thyroglob Ab <1.5 0.0 - 4.0 IU/mL 12/16/2024 6:43 AM EDT [employer] Comment: INTERPRETIVE INFORMATION: Thyroglobulin Antibody A value of 4.0 IU/mL or less indicates a negative result for thyroglobulin antibodies. The Thyroglobulin Antibody assay is being performed using the indeni Access DxI method. Performed By: [employer] [address] [place] [address] Human Resources Assistant: Uvaldo Youssef MD, PhD CLIA Number: [id number] Blood VENOUS BLOOD / Unknown Venipuncture / Unknown 12/14/2024 12:41 PM EDT 12/14/2024 2:31 PM EDT Katharine Whitlock MD IMMUNOLOGY ORDERABLES Final Res ult Performing Organization Address [facility] Co de Phone Number [employer] [facility] [address] [place] [address] * ADRENOCORTICOTROPIC HORMONE -REF LAB (12/14/2024 12:41 PM EDT) Only the most recent of2 resultswithin the time period is included. ACTH 17.4 7.2 - 63.3 pg/mL 12/17/2024 7:33 PM EDT [employer] Comment: INTERPRETIVE INFORMATION: Adrenocorticotropic Hormone Reference interval based on samples collected between 7 a.m. and 10 a.m. No reference intervals established for p.m. collections. Pediatric reference values are the same as adults (Acta Paediatr Scand 1981;70:341-345). This assay measures intact ACTH 1-39; some types of synthetic ACTH and ACTH fragments are not detected by this assay. Performed By: [employer] [address] [place] [address] Human Resources Assistant: Uvaldo Youssef MD, PhD CLIA Number: [id number] Blood VENOUS BLOOD / Unknown Venipuncture / Unknown 12/14/2024 12:41 PM EDT 12/14/2024 2:19 PM EDT Katharine Whitlock MD CHEMISTRY ORDERABLES Final Resu lt Performing Organization Address [facility] de Phone Number [employer] [facility] [address] [place] [address] * C-REACTIVE PROTEIN (12/14/2024 12:41 PM EDT) Only the most recent of3 resultswithin the time period is included. CRP <3.00 <=5.00 mg/L 12/14/2024 7:13 PM EDT [facility] [employer], [facility] Blood VENOUS BLOOD / Unknown Venipuncture / Unknown 12/14/2024 12:41 PM EDT 12/14/2024 2:23 PM EDT Katharine Whitlock MD CHEMISTRY ORDERABLES Final Resu lt [facility] [employer] [address] [facility] , [address] [place] [id number] * URIC ACID (12/14/2024 12:41 PM EDT) Only the most recent of2 resultswithin the time period is included. Uric Acid 3.4 2.4 - 5.7 mg/dL 12/14/2024 6:49 PM EDT [facility] [employer] Blood VENOUS BLOOD / Unknown Venipuncture / Unknown 12/14/2024 12:41 PM EDT 12/14/2024 2:23 PM EDT Katharine Whitlock MD CHEMISTRY ORDERABLES Final Resu Performing Organization Address [facility] Co de Phone Number [facility] [employer] [address] [facility] , [address] [place] [id number] * T3 FREE (12/14/2024 12:41 PM EDT) Only the most recent of2 resultswithin the time period is included. T3 Free 2.24 2.00 - 4.40 pg/mL 12/14/2024 6:49 PM EDT [facility] [employer] Blood VENOUS BLOOD / Unknown Venipuncture / Unknown 12/14/2024 12:41 PM EDT 12/14/2024 2:23 PM EDT Narrative [facility] [employer] - 12/14/2024 6:49 PM EDT Ingestion of aldair doses of biotin (>5 mg/day) taken within 8 hours of drawing blood sample can interfere with this immunoassay test. Katharine Whitlock MD CHEMISTRY ORDERABLES Final Resu lt Performing Organization Address City/[facility]/ZIP Co de Phone Number [facility] [employer] [address] [facility] , [place] [address] * THYROID STIMULATING HORMONE (12/14/2024 12:41 PM EDT) Only the most recent of2 resultswithin the time period is included. TSH 0.737 0.270 - 4.200 mcIU/mL 12/14/2024 6:49 PM EDT [facility] Blood VENOUS BLOOD / Unknown Venipuncture / Unknown 12/14/2024 12:41 PM EDT 12/14/2024 2:23 PM EDT Narrative [facility] - 12/14/2024 6:49 PM EDT Ingestion of aldair doses of biotin (>5 mg/day) taken within 8 hours of drawing blood sample can interfere with this immunoassay test. Katharine Whitlock MD CHEMISTRY ORDERABLES Final [facility] Performing Organization Address [facility] de Phone Number [facility] [employer] [place] [address] * T4, FREE (THYROXINE) (12/14/2024 12:41 PM EDT) Only the most recent of2 resultswithin the time period is included. [facility] Free T4 1.41 0.80 - 1.80 ng/dL 12/14/2024 6:49 PM EDT [facility] [employer] [facility] Blood VENOUS BLOOD / Unknown Venipuncture / Unknown 12/14/2024 12:41 PM EDT 12/14/2024 2:23 PM EDT [facility] - 12/14/2024 6:49 PM EDT Ingestion of aladir doses of biotin (>5 mg/day) taken within 8 hours of drawing blood sample can interfere with this immunoassay test. Katharine Whitlock MD CHEMISTRY ORDERABLES Final Resu Performing Organization Address [facility] Co de Phone Number [address] [place] [address] * VITAMIN B6 (PYRIDOXINE) -REF LAB (12/14/2024 12:41 PM EDT) Only the most recent of2 resultswithin the time period is included. Pathologist [facility] Vit B6 37.9 20.0 - 125.0 nmol/L 12/19/2024 5:11 AM EDT [employer] Comment: INTERPRETIVE INFORMATION: Vitamin B6 (Pyridoxal 5-Phosphate) Pyridoxal 5'-phosphate measured in a specimen collected following an 8-hour or overnight fast accurately indicates vitamin B6 nutritional status. Non-fasting specimen concentration reflects recent vitamin intake. This test was developed and its performance characteristics determined by [employer]. It has not been cleared or approved by the US Food and Drug Administration. This test was performed in a CLIA certified laboratory and is intended for clinical purposes. Performed By: [employer] [address] [place] [address] Human Resources Assistant: Uvaldo Youssef MD, PhD CLIA Number: [id number] Blood VENOUS BLOOD / Unknown Venipuncture / Unknown 12/14/2024 12:41 PM EDT 12/14/2024 4:56 PM EDT Katharine Whitlock MD CHEMISTRY ORDERABLES Final Resu lt [employer] [address] [place] [address] * PARATHYROID HORMONE INTACT (12/14/2024 12:41 PM EDT) PTH Intact 27.90 15.00 - 65.00 pg/mL 12/14/2024 6:35 PM EDT [facility] [employer] Blood VENOUS BLOOD / Unknown Venipuncture / Unknown 12/14/2024 12:41 PM EDT 12/14/2024 2:31 PM EDT Narrative [facility] [employer] - 12/14/2024 6:35 PM EDT Intact PTH [...] CHEMISTRY ORDERABLES Final Resu Performing Organization Address City/[facility] Co de Phone Number [employer] [address] [facility] , [place] [address] * LACTIC ACID (12/14/2024 12:41 PM EDT) Only the most recent of4 resultswithin the time period is included. Lactic Acid 0.9 0.5 - 1.9 mmol/L 12/14/2024 1:41 PM EDT [facility] Blood VENOUS BLOOD / Unknown Venipuncture / Unknown 12/14/2024 12:41 PM EDT 12/14/2024 1:14 PM EDT Katharine Whitlock MD CHEMISTRY ORDERABLES Final Resu Performing Organization Address City/[facility] Co de Phone Number [facility] [address] [place] [address] * LUTEINIZING HORMONE (12/14/2024 12:41 PM EDT) Only the most recent of2 resultswithin the time period is included. LH 44.10 mIU/mL 12/14/2024 6:58 PM EDT [employer] Comment: Suggested Reference Ranges (mIU/mL) Females Follicular Phase 2.4 - 12.6 Ovulation Phase 14.0 - 95.6 Luteal Phase 1.0 - 11.4 Postmenopause 7.7 - 58.5 Males 1.7 - 8.6 Blood VENOUS BLOOD / Unknown Venipuncture / Unknown 12/14/2024 12:41 PM EDT 12/14/2024 3:30 PM EDT Narrative [employer] - 12/14/2024 6:58 PM EDT Ingestion of aldair doses of biotin (>5 mg/day) taken within 8 hours of drawing blood sample can interfere with this immunoassay test. Katharine Whitlock MD CHEMISTRY ORDERABLES Final Resu Performing Organization Address [facility] Phone Number [facility] [employer] , [place] [phone] * VITAMIN B12 LEVEL (12/14/2024 12:41 PM EDT) Only the most recent of2 resultswithin the time period is included. Vitamin B12 379 232 - 1,245 pg/mL 12/14/2024 6:58 PM EDT [employer] Blood VENOUS BLOOD / Unknown Venipuncture / Unknown 12/14/2024 12:41 PM EDT 12/14/2024 3:30 PM EDT [facility] [employer] - 12/14/2024 6:58 PM EDT Ingestion of aldair doses of biotin (>5 mg/day) taken within 8 hours of drawing blood sample can interfere with this immunoassay test. Katharine Whitlock MD CHEMISTRY ORDERABLES Final [facility] Performing Organization Address [facility] Phone Number [facility] [employer] [place] [address] * CORTISOL (12/14/2024 12:41 PM EDT) Only the most recent of2 resultswithin the time period is included. Cortisol 5.82 mcg/dL 12/14/2024 6:5 8 PM EDT [employer] Blood VENOUS BLOOD / Unknown Venipuncture / Unknown 12/14/2024 12:41 PM EDT 12/14/2024 3:30 PM EDT [facility] [employer] - 12/14/2024 6:58 PM EDT AM: 4.82 [...] Resu lt [facility] [address] [facility] , [place] [address] * (ABNORMAL) COMPREHENSIVE METABOLIC PANEL (12/14/2024 12:41 [...] 12/14/2024 6:49 PM EDT [facility], [facility] Bili Total 0.3 0.2 - 1.3 mg/dL 12/14/2024 6:49 PM EDT [facility] ALT 17 <=41 U/L 12/14/2024 6:49 PM EDT [facility] AST 28 <=40 U/L 12/14/2024 6:49 PM EDT [facility] Alk Phos 36 36 - 123 U/L 12/14/2024 6:49 PM EDT [facility] eGFR (CKD-EPIcr 2020) 67 >=60 mL/min/1.7 3 m2 12/14/2024 6:49 PM EDT [facility], [facility] Comment:Estimated GFR was ca lculated using the CKD-EPIcr (2020) equation refit without race. The equation is recommended by the National Kidney Foundation - [place] [employer] of Nephrology Task Force. Blood VENOUS BLOOD / Unknown Venipuncture / Unknown 12/14/2024 12:41 PM EDT 12/14/2024 2:23 PM EDT us Katharine Whitlock MD CHEMISTRY ORDERABLES Final Resu lt [facility], [facility] [address] [facility] , [address] [place] [id number] * US THYROID (12/12/2024 12:48 PM EDT) [...] 12:48 PM CLINICAL HISTORY: Thyroid nodule(s). E03.9-Hypothyroidism, [id number]-CM. COMPARISON: None. PROCEDURE COMMENTS: Sonographic evaluation of [...] 12:48 PM CLINICAL HISTORY: Thyroid nodule(s). E03.9-Hypothyroidism, [id number]-CM. COMPARISON: None. PROCEDURE COMMENTS: Sonographic evaluation of [...] office of the ordering clinician. us Wael Carlota Whitlock MD IMJerry US ORDERABLES Final Result * CALCITRIOL- COMPUNET (11/27/2024) Calcitriol 44.4 PG/ML SEP OFFICE 11/27/2024 Result [facility] us Katharine Whitlock MD CNET-CHEMISTRY ORDERABLES Edite d Result - Final SEP OFFICE * CALCIUM, IONIZED (11/27/2024) Calcium Ionized 5.2 MMOL/L SEP OFFICE Blood VENOUS BLOOD / Unknown 11/27/2024 Result [facility] us Katharine Whitlock MD CHEMISTRY ORDERABLES Edited Res ult - Final Performing Organization Address [facility]/State/ZIP Co de Phone Number SEP OFFICE * IRON LEVEL AND TIBC (11/27/2024) TIBC 342 MCG/DL SEP OFFICE UIBC 287 112 - 347 mcg/dL SEP OFFICE Iron 55 MCG/DL SEP OFFICE Iron Saturation 16 % SEP OFFICE Blood VENOUS BLOOD / Unknown 11/27/2024 Result [facility] us Katharine Whitlock MD CHEMISTRY ORDERABLES Edited Res ult - Final Performing Organization Address [facility]/ZIP Co de Phone Number SEP OFFICE * THYROGLOBULIN -REF LAB (11/27/2024) Thyroglob Ab <1.0 IU/ML SEP OFFICE Blood VENOUS BLOOD / Unknown 11/27/2024 Result [facility] us Katharine Whitlock MD CHEMISTRY ORDERABLES Edited Res ult - Final SEP OFFICE * DEHYDROEPIANDROSTERONE -REF LAB (11/27/2024) DHEA Sulfate 10.3 MCG/DL SEP OFFICE Blood VENOUS BLOOD / Unknown 11/27/2024 us Katharine Whitlock MD CHEMISTRY ORDERABLES Edited Res ult - Final Performing Organization Address [facility] de Phone Number SEP OFFICE * LIPID SCREEN (11/27/2024) Only the most recent of2 resultswithin the time period is included. Cholesterol, Total 170 SEP OFFICE Triglyceride 113 40 - 160 MG/DL SEP OFFICE HDL 50 35 - 70 MG/DL SEP OFFICE VLDL Cholesterol Mekhi 20 SEP OFFICE LDL Calculated 100 0 - 160 MG/DL SEP OFFICE Blood VENOUS BLOOD / Unknown 11/27/2024 Result [facility] Katharine Whitlock MD CHEMISTRY ORDERABLES Edited Res ult - Final Performing Organization Address [facility] de Phone Number SEP OFFICE * OCT, OPTIC NERVE - OU - BOTH EYES (08/16/2024 2:02 PM EDT) Narrative SEP OFFICE - 08/16/2024 2:02 PM EDT Right Eye Reliability was good. Temporal thickness was normal. Superior thickness was normal. Nasal thickness was normal. Inferior thickness was normal. Left Eye Temporal thickness was showing abnormal thinning. Superior thickness was showing abnormal thinning. Result Edmundo Ang MD OPHTHALMOLOGY SERVICES ORDERAB LES Final Result Performing Organization Address [facility] de Phone Number SEP OFFICE * GRUBBS VISUAL FIELD - OU - BOTH EYES (08/18/2023 12:54 PM EDT) Narrative SEP OFFICE - 08/18/2023 12:54 PM EDT Patient is here for baseline imaging. Right Eye Reliability was good. Foveal threshold was normal. Findings include normal observations. Left Eye Reliability was good. Foveal threshold was normal. Findings include inferior altitudinal defect. Result [facility] us Na Ang MD OPHTHALMOLOGY SERVICES ORDERAB LES Final Result Performing Organization Address [facility] de Phone Number SEP OFFICE * XR CERVICAL SPINE AP AND LATERAL (09/16/2022 1:45 PM EDT) Narrative Dayana Winkler - 09/16/2022 1:45 PM EDT Please see physician's note from office encounter for x-ray imaging result Oumar Alves MD IMG DIAGNOSTIC IMAGING O RDERABLES Final Result * WA ARTHROCENTESIS ASPIR&/INJ MAJOR JT/BURSA W/O US (09/16/2022 [...] and draped in the usual sterile fashion. Oumar Alves MD PROCEDURE/MINOR SURGICAL ORDERABLES Final Result [facility] NM GASTRIC EMPTYING (08/19/2022 12:17 PM [...] GASTRIC EMPTYING 08/19/2022 12:17 PM CLINICAL HISTORY: K21.40-Nczrxg-lpesverhxf reflux disease with esophagitis, without [id number]-04-CM. COMPARISON: CT abdomen and pelvis with IV [...] GASTRIC EMPTYING 08/19/2022 12:17 PM CLINICAL HISTORY: K21.31-Djprll-cxcafulspn reflux disease withesophagitis, without [id number]-CM. COMPARISON: CT abdomen and pelvis with IV [...] of the ordering clinician. Gerardo Rahman MD [facility] [place] ORDERABLES Final Re sult * SCANNED [...] Clear 07/26/2022 10:36 AM EDT SEP UROLOGY [facility] UA Gluc POC Negative Negative mg/dL 07/26/2022 10:36 AM EDT [facility] UA Bili POC Negative Negative 07/26/2022 10:36 AM EDT [facility] UROLOGY [facility] UA Ketones POC Negative Negative mg/dL 07/26/2022 10:36 AM EDT [facility] UA SG POC <=1.005 1.001 - 1.035 no units 07/26/2022 10:36 AM EDT [facility] UA Blood POC Small(A) Negative 07/26/2022 10:36 AM EDT [facility] UA pH POC 5.5 5.0 - 8.0 pH 07/26/2022 10:36 AM EDT [facility] UA Protein POC Negative Negative mg/dL 07/26/2022 10:36 AM EDT [facility] UA Urobilinogen POC 0.2 0.2, 1.0 07/26/2022 10:36 AM EDT [facility] UA Nitrite POC Negative Negative 07/26/2022 10:36 AM EDT [facility] UA Leuk Est POC Negative Negative 10:36 AM EDT [facility] Urine URINE SPECIMEN COLLECTION / Unknown 07/26/2022 10:33 AM EDT 07/26/2022 10:36 AM EDT Sandra Murrell PA-C POINT OF CARE TEST ORDERAB LES Final Result Performing Organization Address City/State/[facility] Co de Phone Number [facility] UROLOGY [facility] [address] [place], [place] [id number] * CBC WITH DIFF (07/18/2022 4:12 PM EDT) Only the most recent of9 resultswithin the time period is included. WBC 5.0 3.7 - 10.3 x10(3)/mcL 07/18/2022 4:18 PM EDT [facility] RBC 4.64 3.90 - 5.20 x10(6)/mcL 07/18/2022 4:[address] [facility] Hgb 13.3 11.2 - 15.7 g/dL 07/18/2022 4:[address] [facility] Hct 39.3 34.0 - 45.0 % 07/18/2022 4:[address] [facility] MCV 84.7 80.0 - 100.0 fL 07/18/2022 4:[address] [facility] MCH 28.7 26.0 - 34.0 pg 07/18/2022 4:[address] [facility] MCHC 33.8 30.7 - 35.5 g/dL 07/18/2022 4:[address] [facility] RDW 13.2 <=14.9 % 07/18/2022 4:[address] [facility] Platelet 254 155 - 369 x10(3)/mcL 07/18/2022 4:[address] [facility] MPV 9.6 8.8 - 12.5 fL 07/18/2022 4:18 PM EDT [facility] Neut Percent 49.6 % 07/18/2022 4:18 PM EDT [facility] Comment:Neutrophils equals s egs plus bands Imm Gran% 0.4 % 07/18/2022 4:18 PM EDT [facility] Comment:Automated count of m etamyelocytes, myelocytes and promyelocytes. Lymph Percent 36.1 % 07/18/2022 4:18 PM EDT [facility] [place] Percent 10.9 % 07/18/2022 4:18 PM EDT [facility] Eos Percent 2.0 % 07/18/2022 4:[address] [facility] Baso Percent 1.0 % 07/18/2022 4:18 PM EDT [facility] Neut # 2.5 1.6 - 6.1 x10(3)/mcL 07/18/2022 4:18 PM EDT [facility] Comment:Neutrophils equals s egs plus bands IMMGRAN# 0.0 0.0 - 0.1 x10(3)/mcL 07/18/2022 4:18 PM EDT [facility] Comment:Automated count of m etamyelocytes, myelocytes and promyelocytes. An absolute IG <0.1 is reported as 0.0. Lymph # 1.8 1.2 - 3.9 x10(3)/mcL 07/18/2022 4:18 PM EDT [facility] [place] # 0.5 0.3 - 0.9 x10(3)/mcL 07/18/2022 4:18 PM EDT [facility] Eos# 0.1 0.0 - 0.5 x10(3)/mcL 07/18/2022 4:18 PM EDT [facility] Baso # 0.1 0.0 - 0.1 x10(3)/[facility] 07/18/2022 4:18 PM EDT [facility] Blood VENOUS BLOOD / Unknown Venipuncture / Unknown 07/18/2022 4:12 PM EDT 07/18/2022 4:16 PM EDT Sameer Gan MD HEMATOLOGY ORDERABLES Final Result [facility] [address] [place] [address] * BASIC METABOLIC PANEL (07/18/2022 4:12 PM EDT) Only the most recent of5 resultswithin the time period is included. Sodium 138 136 - 145 mmol/L 07/18/2022 4:33 PM EDT [facility] Potassium 3.8 3.5 - 5.0 mmol/L 07/18/2022 4:33 PM EDT [facility] Chloride 102 98 - 107 mmol/L 07/18/2022 4:33 PM EDT [facility] Total CO2 25 22 - 29 mmol/L 07/18/2022 4:33 PM EDT [facility] Anion Gap 11 7 - 16 mmol/L 07/18/2022 4:33 PM EDT [facility] Calcium 9.5 8.8 - 10.4 mg/dL 07/18/2022 4:33 PM EDT [facility] Glucose Lvl 99 82 - 100 mg/dL 07/18/2022 4:[address] [facility] BUN 14 8 - 23 mg/dL 07/18/2022 4:[address] [facility] Creatinine 0.93 0.51 - 1.30 mg/dL 07/18/2022 4:33 PM EDT [facility] eGFR (CKD-EPIcr 2020) 63 >=60 mL/min/1.7 3 m2 07/18/2022 4:33 PM EDT [facility] Comment:Estimated GFR was ca lculated using the CKD-EPIcr (2020) equation refit without race. The equation is recommended by the National Kidney Foundation - [place] Citizen Society of Nephrology Task Force. Blood VENOUS BLOOD / Unknown Venipuncture / Unknown 07/18/2022 4:12 PM EDT 07/18/2022 4:16 PM EDT Sameer Gan MD CHEMISTRY ORDERABLES Final Result [facility] [address] [place], [place] [id number] * (ABNORMAL) URINALYSIS REFLEX (07/18/2022 2:45 PM EDT) UA Color Straw 07/18/2022 3:[address] [facility] UA Appear Clear Clear 07/18/2022 3:[address] [facility] UA Glucose Negative Negative mg/dL 07/18/2022 3:[address] [facility] UA Ketones Negative Negative mg/dL 07/18/2022 3:[address] [facility] UA Blood Moderate(A) Negative 07/18/2022 3:[address] [facility] UA pH 6.0 5.0 - 8.0 pH 07/18/2022 3:[address] [facility] UA Protein Negative Negative mg/dL 07/18/2022 3:[address] [facility] UA Urobilinogen 0.2 <=1 mg/dL 3:[address] [facility] UA Bili Negative Negative 07/18/2022 3:03 PM EDT [facility] UA Nitrite Negative Negative 07/18/2022 3:03 PM EDT [facility] UA Leuk Est Trace(A) Negative 07/18/2022 3:[address] [facility] UA Spec Grav 1.010 1.001 - 1.035 no units 07/18/2022 3:[address] [facility] Comment:Reference range ruth d for random specimens only. UA WBC 1 0 - 4 /HPF 07/18/2022 3:03 PM EDT [facility] UA RBC 0 0 - 3 /HPF 07/18/2022 3:[address] [facility] UA Squam Epi Rare /LPF 07/18/2022 3:03 PM EDT [facility] Urine URINE SPECIMEN COLLECTION, CLEAN CATCH / Unknown 07/18/2022 2:45 PM EDT 07/18/2022 2:47 PM EDT Sameer Gan MD URINE ORDERABLES Final Resu lt Performing Organization Address City/[facility] Co de Phone Number [facility] [address] [place] [address] * EXTRA [place] URINE CX (07/18/2022 2:45 PM EDT) Only the most recent of6 resultswithin the time period is included. Urine URINE SPECIMEN COLLECTION, CLEAN CATCH / Unknown 07/18/2022 2:45 PM EDT 07/18/2022 2:47 PM EDT Sameer Gan MD MICROBIOLOGY - [facility]AL [facility] Final Result Performing Organization Address [facility] Co de Phone Number [facility] [address] [place] [address] * URINE CULTURE (NO STAIN) (07/18/2022 2:45 PM EDT) Only the most recent of9 resultswithin the time period is included. Culture Multiple bacterial species isolated from urine consistent with urogenital commensal organisms. 07/20/2022 10:02 AM EDT [facility] [employer], [facility] Urine URINE SPECIMEN COLLECTION, CLEAN CATCH / Unknown 07/18/2022 2:45 PM EDT 07/18/2022 3:03 PM EDT us Sameer Gan MD MICROBIOLOGY - GENERAL ORDMariama FREEDMAN Final Result Performing Organization Address [facility]/ZIP Co de Phone Number [facility] [employer] [address] [place] [address] , [place] [address] * XR LUMBAR SPINE AP AND LATERAL (07/07/2022 1:02 PM EST) Only the most recent of2 resultswithin the time period is included. Narrative [employer], [employer] - 07/07/2022 1:02 PM EST Please see physician's note from office encounter for x-ray imaging result us Oumar Alves MD IMG DIAGNOSTIC IMAGING O RDERABLES Final Result * GAMMA GLUTAMYL TRANSFERASE (06/22/2022 1:15 PM EST) GGT 15 5 - 36 U/L 06/22/2022 2:33 PM EST [facility] [employer] [employer] Blood VENOUS BLOOD / Unknown Venipuncture / Unknown 06/22/2022 1:15 PM EST 06/22/2022 1:15 PM EST us Guanakito Malik V, DPM CHEMISTRY ORDERABLES Final R esult Performing Organization Address City/[facility] Co de Phone Number [facility] [employer] [employer] [address] [facility] , [place] [address] * (ABNORMAL) HEPATIC FUNCTION PANEL (06/22/2022 1:15 PM EST) Total Protein 7.3 6.4 - 8.3 gm/dL 06/22/2022 2:33 PM EST [facility] [employer], [employer]) Albumin 4.5 3.2 - 4.6 gm/dL 06/22/2022 2:33 PM EST [facility] [employer] [facility] Bili Direct <0.2 0.0 - 0.3 mg/dL 06/22/2022 2:33 PM EST [facility] [employer], [facility] Bili Total 0.4 0.1 - 1.3 mg/dL 06/22/2022 2:33 PM EST [facility] AST 28 <=40 U/L 06/22/2022 2:33 PM EST [facility], [facility] ALT 23 <=41 U/L 06/22/2022 2:33 PM EST PREFERRED LAB [facility], [facility] Alk Phos 32(L) 36 - 123 U/L 06/22/2022 2:33 PM EST PREFERRED LAB [facility], [facility] Blood VENOUS BLOOD / Unknown Venipuncture / Unknown 06/22/2022 1:15 PM EST 06/22/2022 1:15 PM EST Guanakito Parikh DPM CHEMISTRY ORDERABLES Final R esult Performing Organization Address [facility] Co de Phone Number [facility] [address] [facility], [place] [address] * OCT, OPTIC NERVE - OU - [...] Final Result Performing Organization Address [facility]/ZIP Co de Phone Number SEP OFFICE [...] 05/12/2022 1:40 PM CLINICAL HISTORY: R10.9-Unspecified abdominal pyso-OUF-75-CM. COMPARISON: 12/11/2020 PROCEDURE COMMENTS: Multidetector CT examination [...] 05/12/2022 1:40 PM CLINICAL HISTORY: R10.9-Unspecified abdominal uscw-IJR-26-CM. COMPARISON: 12/11/2020 PROCEDURE COMMENTS: Multidetector CT examination [...] of the ordering clinician. Janet Vogt MD IM CT ORDERABLES Final Result * NON-NURSE RESEARCH CYTOLOGY REQUEST (05/05/2022 4:39 PM EST) CASE REPORT Non-gynecologi c Cytology Case: [id number] Authorizing Provider: Sandra Murrell PA-C Collected: 05/05/2022 1639 Ordering Location: SEP Urology NPTFTT Received: 05/05/2022 1639 Pathologist: Danelle Dixon MD Specimen: Bladder, Urinary 05/06/2022 11:23 AM EST [facility] NON-NURSE RESEARCH CYTOLOGY FINAL DIAGNOSIS Bladder washing: - Negative for high grade urothelial carcinoma. 05/06/2022 11:23 AM EST [facility] at 1122 EST EMBEDDED IMAGES 05/06/2022 11:23 AM [facility] MICROSCOPIC DESCRIPTION Microscopic examination is performed and the findings corroborate the diagnosis. 05/06/2022 11:23 AM [facility] Gross Description Urinary Bladder Washing, Rec'd 80ml of yellow fluid. (TP) 05/06/2022 11:23 AM [facility] Urine SPECIMEN FROM URINARY BLADDER / Unknown 05/05/2022 4:39 PM EST 05/05/2022 4:39 PM EST Sandra Murrell PA-C CYTOLOGY [place]AB[place] [address] * (ABNORMAL) URINALYSIS (05/05/2022 4:39 PM EST) Only the most recent of11 resultswithin the time period is included. UA Color Colorless 05/05/2022 6:55 PM EST [facility] UA Appear Clear Clear 05/05/2022 6:55 PM EST [facility] UA Glucose Negative Negative mg/dL 05/05/2022 6:55 PM EST [facility] UA Ketones Negative Negative mg/dL 05/05/2022 6:55 PM EST [facility] UA Blood 1+ (0.06 - 0.1 mg/dL)(A) Negative 05/05/2022 6:55 PM EST [facility] UA pH 6.5 5.0 - 8.0 pH 05/05/2022 6:55 PM EST [facility] UA Protein Negative Negative mg/dL 05/05/2022 6:55 PM EST [facility] UA Urobilinogen Normal <=1 mg/dL 6:55 PM EST [facility] UA Bili Negative Negative 05/05/2022 6:55 PM EST [facility] UA Nitrite Negative Negative 05/05/2022 6:55 PM EST [facility] UA Leuk Est Negative Negative 05/05/2022 6:55 PM EST [facility] UA Spec Grav 1.010 1.001 - 1.035 no units 05/05/2022 6:55 PM EST [facility] Comment:Reference range ruth d for random specimens only. UA WBC 0 0 - 4 /HPF 05/05/2022 6:55 PM EST [facility] UA RBC <1 0 - 3 /HPF 05/05/2022 6:55 PM EST [facility] UA Hyal Cast 1 0 - 2 /LPF 05/05/2022 6:55 PM EST [facility] Urine URINE SPECIMEN OBTAINED VIA STRAIGHT CATHETER / Unknown 05/05/2022 4:39 PM EST 05/05/2022 4:39 PM EST us Sandra Murrell PA-C URINE ORDERABLES Final Res ult [facility] [address] [facility] , [place] [address] * (ABNORMAL) QZCO-MHP1-ICT A/B (04/28/2022 6:38 AM EST) CORONAVIRUS 6538-KLUS-CBP-2 Not Detected Not Detected 04/28/2022 7:12 AM EST [facility] Influenza A DNA Detected(A) Not Detected 04/28/2022 7:12 AM EST [facility] Influenza B DNA Not Detected Not Detected 04/28/2022 7:12 AM EST [facility] Swab BOTH ANTERIOR NARES / Unknown 04/28/2022 6:38 AM EST 04/28/2022 6:47 AM EST Narrative [facility] - 04/28/2022 7:12 [...] and Patients: DIANDRA Fact Sheet for Providers: https://www.fda.gov/media/433250/download DIANDRA Fact Sheet for Patients: https://www.fda.gov/media/179784/download us Jonas Mayorga MD MICROBIOLOGY - GENERAL ORDER LILO Final Result [facility] [address] [place] [address] * (ABNORMAL) EMG (02/18/2022) Impressions SEP OFFICE [...] in degree electrically. Hollis Yoo M.D. Diplomate, [place] Citizen [employer] Narrative SEP OFFICE [...] us Mikey Christian MD NEUROLOGY ORDERABLES Cindy l Result SEP OFFICE * XR CHEST PA [...] X-RAY, 01/26/2022 2:27 PM CLINICAL HISTORY: R05.9-Cough, eaepefwvfsg-GRJ-96-CM COMPARISON: 10/29/2021 PROCEDURE COMMENTS: Frontal and lateral views of the chest. FINDINGS: Cardiovascular structures within normal limits. No pneumonia or effusion. No pneumothorax. Procedure Note Galdino Sosa MD - 01/26/2022 PA AND LATERAL CHEST X-RAY, 01/26/2022 2:27 PM CLINICAL HISTORY: R05.9-Cough, wdswwnludpr-YEL-14-CM COMPARISON: 10/29/2021 PROCEDURE COMMENTS: Frontal and lateral [...] Murrell PA-C POINT OF CARE IMAGING Cindy l Result [...] contactthe office of the ordering clinician. us Arthur Rodriguez MD IMG DIAGNOSTIC IMAGING ORDERABL [...] left-sided facet disease is present resulting in pxci-gb-hssvmprp central canal stenosis, with left lateral recess [...] 1:06 PM CLINICAL HISTORY: M54.50-Low back pain, zgntcvmrste-JXY-76-CM. COMPARISON: May 23, 2012. PROCEDURE COMMENTS: Multiplanar [...] 1:06 PM CLINICAL HISTORY: M54.50-Low back pain, qpinxtifumx-YRS-06-CM. COMPARISON: May 23, 2012. PROCEDURE COMMENTS: Multiplanar [...] and left-sided facet disease is present resulting kohqum-uu-chbavodf central canal stenosis, with left lateral recess stenosis potentiallyimpinging the descending left L4 nerve root 3. At L2-3, disc bulge with right-sided facet arthritis/ligamentoushypertrophy results in right lateral recess stenosis and could result in right Q9jhdxzrvak symptoms. - Note: Radiology results need to be interpreted within a comprehensiveclinical context. If you have questions about the radiology report, please contactthe office of the ordering clinician. us Mikey Christian MD IMG MRI ORDERABLES Final Result * POCT EDIL FLU+SARS ANTIGEN (04/16/2021 11:25 AM EST) Pathologist [facility] SARS Antigen Negative Negative SEP OFFICE Influenza A Antigen Negative Negative SEP OFFICE Influenza B Antigen Negative Negative SEP OFFICE Lot Number SEP OFFICE Expiration Date SEP OFFICE SeriAl # SEP OFFICE Control Line SEP OFFICE 04/16/2021 11:2 5 AM EST us Janet Vogt MD POINT OF CARE TEST DIANA FREEDMAN Final Result SEP OFFICE * CORONAVIRUS 2019 (04/16/2021 11:24 AM EST) Only the most recent of4 resultswithin the time period is included. CORONAVIRUS 1906-VWXT-UBR-2 Not Detected Not Detected 04/17/2021 2:30 PM EST [facility] [employer] Comment: Caution should be exercised when interpreting [...] of COVID-19. Test is performed on the [employer] platform under the FDA's Emergency Use Authorization (EUA). Hologic Provider Fact Sheet: https://www.fda.gov/media/396773/download [employer] Patient Fact Sheet: https://www.fda.gov/media/105745/download Performed at [employer] [address] [address] CLIA [id number] Swab BOTH ANTERIOR NARES / Unknown 04/16/2021 11:24 AM EST 04/16/2021 11:24 AM EST Janet Vogt MD MICROBIOLOGY - GENERAL ORDERABLES Final Result Performing Organization Address [facility]/ZIP Co de Phone Number [facility] [employer] [address], [address] [place] [id number] * POCT EKG (04/10/2021 11:36 AM EST) Only the most recent of2 resultswithin the time period is included. 04/10/2021 11:3 6 AM EST Janet Vogt MD POINT OF CARE CARDIOLOG Y Final Result Performing Organization Address [facility] Co de Phone Number SEP OFFICE * SCANNED EKG (12/12/2020 10:17 [...] of the ordering clinician. us Esther Gramajo MAJOR CASE DETECTIVE IMG CT ORDERABLES Final Resu lt * TROPONIN-T HIGH SENSITIVITY 2HR (12/11/2020 2:09 PM EDT) da-lXtmqxjfn-R 2HR <6 <14 ng/L 12/11/2020 2:34 PM EDT [facility] Comment:See the website Jackpocket for rule out [place] care pathway, conditions other than AMI that can cause elevated hs cTnT, and comparison of values from the 4th and 5th generation Dex tests. https://askmayoexpert.[facility].org/topic/clinical-answers/gnt-67057722/cpm-203 00786 hs-cTnT 2Hr Delta from Baseline 12/11/2020 2:34 PM EDT [facility] Comment:Unable to calculate, result is outside instrument's measuring range. Blood VENOUS BLOOD / Unknown Venipuncture / Unknown 12/11/2020 2:09 PM EDT 12/11/2020 2:15 PM EDT Narrative [facility] - 12/11/2020 2:34 PM EDT Ingestion of aldair doses of biotin (>5 mg/day) taken within 8 hours of drawing blood sample can interfere with this immunoassay test. us Esther Gramajo MAJOR CASE DETECTIVE CHEMISTRY ORDERABLES Final R esult [facility] [address] [place] [address] * CORONAVIRUS 2019 POCT (12/11/2020 12:48 PM EDT) COV19 RNA POCT Negative Negative 12/11/2020 1:41 PM EDT [facility] Swab NASAL STRUCTURE / Unknown 12/11/2020 12:48 PM EDT 12/11/2020 1:21 PM EDT Narrative [facility] - 12/11/2020 1:41 PM EDT [...] management. [employer] ID NOW Provider Fact Sheet: https://www.fda.gov/media/840595/download [employer] [employer] Patient Fact Sheet: https://www.fda.gov/media/515913/download us Esther Gramajo MAJOR CASE DETECTIVE MICROBIOLOGY - GENERAL ORDER LILO Final Result [facility] [address] [place] [id number] * EK EKG 12 LEAD (12/11/2020 12:37 PM EDT) Only the most recent of3 resultswithin the time period is included. Anatomical Region Laterality Modality Electrocardiogra phy 12/11/2020 12:5 0 PM EDT Impressions 12/11/2020 2:34 PM EDT [facility] Test Date: 2020-12-11 Pat Name: GILBERT MOREIRA Department: DEPID Room: 20 Gender: Female [employer] Operations Specialist: Nasreen : 1945 Requested By: ESTHER Leslie Order Number: [id number] Reading MD: Dre Pardo MD Measurements Intervals Howell Rate: 61 P: -72 WA: 169 QRS: 37 QRSD: 106 T: 48 QT: 444 QTc: 448 Interpretive Statements SINUS RHYTHM NORMAL ECG NO PRIOR TRACING Electronically Signed On 12-11-2020 14:34:49 EDT by Dre Pardo MD Narrative Procedure Note Dre Pardo MD - 12/11/[address] [facility] Test Date: 2020-12-11 Pat Name: GILBERT MOREIRA Department: DEPID Room: 20 Gender: Female [employer] Source Operations Specialist: Silasjacqui : 1945 Requested By: ESTHER Leslie Order Number: [id number] Reading MD: Dre Pardo MD Measurements Intervals Howell Rate: 61 P: -72 WA: 169 QRS: 37 QRSD: 106 T: 48 QT: 444 QTc: 448 Interpretive Statements SINUS RHYTHM NORMAL ECG NO PRIOR TRACING Electronically Signed On 12-11-2020 14:34:49 EDT by Dre Pardo MD Esther Gramajo MAJOR CASE DETECTIVE IMG ECG ORDERABLES Final Res ult * TROPONIN-T HIGH SENSITIVITY BASELINE W/ REFLEX (12/11/2020 12:02 PM EDT) Only the most recent of5 resultswithin the time period is included. pu-lHyhovaqb-Z <6 <14 ng/L 12/11/2020 2:06 PM EDT [facility] Comment:See the website belo w for rule out [place] care pathway, conditions other than AMI that can cause elevated hs cTnT, and comparison of values from the 4th and 5th generation Dex tests. https://askmayoexpert.[facility].org/topic/clinical-answers/gnt-42345058/cpm-203 [address] Blood VENOUS BLOOD / Unknown Venipuncture / Unknown 12/11/2020 12:02 PM EDT 12/11/2020 1:52 PM EDT Narrative [facility] - 12/11/2020 2:06 PM EDT Ingestion of aldair doses of biotin (>5 mg/day) taken within 8 hours of drawing blood sample can interfere with this immunoassay test. us Esther E Nordman MAJOR CASE DETECTIVE CHEMISTRY ORDERABLES Final R esult Performing Organization Address City/[facility]/ZIP Co de Phone Number [address] [address] * LIPASE LEVEL (12/11/2020 12:02 PM EDT) Only the most recent of2 resultswithin the time period is included. Lipase Lvl 48 13 - 60 U/L 12/11/2020 1:54 PM EDT [facility] Blood VENOUS BLOOD / Unknown Venipuncture / Unknown 12/11/2020 12:02 PM EDT 12/11/2020 12:18 PM EDT us Esther E Nordman MAJOR CASE DETECTIVE CHEMISTRY ORDERABLES Final R esult Performing Organization Address [facility] Co de Phone Number [facility] [address] [place] [address] * SCANNED RHYTHM STRIPS (12/09/2020 10:22 AM EDT) Anatomical Region Laterality Modality Other 12/09/2020 10:2 2 AM EDT us Unknown Provider IMG ECG ORDERABLES Final Result * Peripheral Block by Anesthesia (12/08/2020 2:08 PM EDT) Narrative [facility] - 12/08/2020 2:08 PM EDT Denae Galarza MD 12/08/2020 2:09 PM Peripheral Block by Anesthesia Procedure Date/Time: 12/08/2020 1:51 PM Patient location during procedure: OR Reason for block: at surgeon's request and post-op pain management Staff and Pre-procedure checks Anesthesiologist: Denae Galarza MD Resident/REVENUE FIELD AUDITOR: Laura Holden CRNA Performed: anesthesiologist Preanesthetic Checklist: [...] of the block is attached/scanned to the epic chart. us Denae Galarza MD ANESTHESIA ORDERABLES Edited R esult - Final [facility] [address] [place] [address] * Peripheral Block by Anesthesia (12/08/2020 2:06 PM EDT) Narrative [facility] - 12/08/2020 2:06 PM EDT Denae Galarza MD 12/08/2020 2:08 PM Peripheral Block by Anesthesia Procedure Date/Time: 12/08/2020 1:52 PM Patient location during procedure: OR Reason for block: at surgeon's request and post-op pain management Staff and Pre-procedure checks Anesthesiologist: Denae Galarza MD Resident/REVENUE FIELD AUDITOR: Laura Holden CRNA Performed: anesthesiologist Preanesthetic Checklist: [...] visualized. Ultrasound image documentation is attached/scanned in [employer] chart.) Ultrasound probe: linear Ultrasound needle approach: [...] of the block is attached/scanned to the [employer] chart. us Denae Galarza MD ANESTHESIA ORDERABLES Final Re sult [address] [address] * PATHOLOGY TISSUE REQUEST (12/08/2020 1:55 PM EDT) Only the most recent of2 resultswithin the time period is included. CASE REPORT Surgical Pathology Case: [id number] Authorizing Provider: Geoff Gan MD Collected: 12/08/2020 1355 Ordering Location: [facility] SAME DAY SURGERY Received: 12/09/2020 1000 Pathologist: Claudia Issa MD Specimen: Gallbladder, GALLBLADDER 12/10/2020 10:14 AM EDT [facility] FINAL DIAGNOSIS Gallbladder, cholecystectomy: - Acute and chronic cholecystitis. - Cholelithiasis. 12/10/2020 10:14 AM EDT [facility] at 1014 EDT GROSS DESCRIPTION [...] identified. The wall thickness averages 0.1 cm. Pet Walker sections, to include the cystic duct margin, en face are submitted in cassette A1. BR 12/09/2020 11:29 AM 12/10/2020 10:14 AM EDT [facility] MICROSCOPIC DESCRIPTION Microscopic examination is performed and the findings corroborate the diagnosis. 12/10/2020 10:14 AM EDT [facility] EMBEDDED IMAGES 12/10/2020 10:14 AM EDT [facility] Tissue ENTIRE GALLBLADDER / Unknown 12/08/2020 1:55 PM EDT 12/09/2020 10:00 AM EDT us Geoff Gan MD PATHOLOGY ORDERABLES Final Re sult [facility] [address] [place] [address] [facility] [address] [place] [address] * INTRAOP AIRWAY PLACEMENT (12/08/2020 1:46 PM EDT) Narrative [facility] - 12/08/2020 1:46 PM EDT [...] attempts: 1 Attempt 1 by: FARIBA Title: REVENUE FIELD AUDITOR us Denae Galarza MD [place] ANESTHESIA Final Result [facility] [address] [place] [address] * (ABNORMAL) COMPLIANCE PANEL, URINE (09/19/2020 10:54 AM EDT) [facility] Medications Expected Gabapentin 08/31 7:49 AM EDT [facility] [employer] ([employer]) Creatinine Ur >25.0 mg/dL 09/22/2020 7:49 AM EDT [facility]) Comment: Greater than 20: Consistent with valid sample Greater than 2 but less than 20: Possible dilution Less than 2: Questionable valid sample THC <10 Cutoff 10 ng/mL ng/mL 09/22/2020 7:49 AM EDT [facility] ([facility]) Comment:6-rnsgwnd-ynzxumbhrw cannabinol; does not distinguish between prescribed and illicit forms THC Glucuronide <10 Cutoff 10 ng/mL ng/mL 09/22/2020 7:49 AM EDT [facility] ([facility]) Comment:Metabolite of THC Amphetamine <50 Cutoff 50 ng/mL ng/mL 09/22/2020 7:49 AM EDT [facility] ([facility]) Comment:e.g., Adderall, Vyva nse, Dexedrine, Obetrol MDA [...] 09/22/2020 7:49 AM EDT [facility] Comment:Metabolite of Alpraz olam Clonazepam <10 Cutoff 10 ng/mL ng/mL 09/22/2020 7:49 AM EDT [facility] Comment:e.g., Klonopin, Clon opin 7-Aminoclonazepam <25 Cutoff 25 ng/mL ng/mL 09/22/2020 7:49 AM EDT [facility] Comment:Metabolite of Clonaz epam Diazepam <10 Cutoff 10 ng/mL ng/mL 09/22/2020 7:49 AM EDT [facility] Comment:e.g, Valium, Diastat Nordiazepam <25 Cutoff 25 ng/mL ng/mL 09/22/2020 7:49 AM EDT [facility] Comment:Metabolite of Chlord iazepoxide(Librium), Clorazepate(Tranxene), Diazepam, Halazepam, (Alapryl), Prazepam(Centrax) Flunitrazepam <50 Cutoff 50 ng/mL ng/mL 09/22/2020 7:49 AM EDT [facility] Comment:e.g.,Rohypnol, Narco zep 7-Aminoflunitrazepam <50 Cutoff 50 ng/mL ng/mL 09/22/2020 7:49 AM EDT [facility] Comment:Metabolite of Flunit razepam Flurazepam <50 Cutoff 50 ng/mL ng/mL 09/22/2020 7:49 AM EDT [facility] Comment:e.g., Dalmane Hydroxyethylflurazepam <50 Cutoff 50 ng/mL ng/mL 09/22/2020 7:49 AM EDT [facility] Comment:Metabolite of Fluraz epam Lorazepam <50 Cutoff 50 ng/mL ng/mL 09/22/2020 7:49 AM EDT [facility] Comment:e.g., Ativan Lorazepam Glucuronide <50 Cutoff 50 ng/mL ng/mL 09/22/2020 7:49 AM EDT [facility] Comment:Metabolite of Loraze candie Midazolam <50 Cutoff 50 ng/mL ng/mL 09/22/2020 7:49 AM EDT [facility] Comment:e.g., Versed alpha-hydroxymidazolam <50 Cutoff 50 ng/mL ng/mL 09/22/2020 7:49 AM EDT [facility] Comment:Metabolite of Versed Oxazepam <50 Cutoff 50 ng/mL ng/mL 09/22/2020 7:49 AM EDT [facility] Comment:e.g., Serax; also Me tabolite of Temazepam, and Nordiazepam Oxazepam Glucuronide <50 Cutoff 50 ng/mL ng/mL 09/22/2020 7:49 AM EDT [facility] Comment:Metabolite of Oxazep am Temazepam <50 Cutoff 50 ng/mL ng/mL 09/22/2020 7:49 AM EDT [facility] Comment:e.g., Restoril; also Metabolite of Diazepam Temazepam Glucuronide <50 Cutoff 50 ng/mL ng/mL 09/22/2020 7:49 AM EDT [facility] Comment:Metabolite of Temaze candie and Diazepam Triazolam <50 Cutoff 50 ng/mL ng/mL 09/22/2020 7:49 AM EDT [facility] Comment:e.g., Halcion alpha-hydroxytriazolam <50 Cutoff 50 ng/mL ng/mL 09/22/2020 7:49 AM EDT [facility] Comment:Metabolite of Triazo lopez Buprenorphine <5 Cutoff 5 ng/mL ng/mL 09/22/2020 7:49 AM EDT [facility] Comment:e.g., Suboxone, Subu ravindra,Sublocade, Buprenex Buprenorphine Glucuronide <10 Cutoff 10 ng/mL ng/mL 09/22/2020 7:49 AM EDT [facility] Comment:Buprenorphine Metabo lite Norbuprenorphine <5 Cutoff 5 ng/mL ng/mL 09/22/2020 7:49 AM EDT [facility] Comment:Buprenorphine Metabo lite Norbuprenorphine Glucuronide <10 Cutoff 10 ng/mL ng/mL 09/22/2020 7:49 AM EDT [facility] Comment:Buprenorphine Metabo lite Benzoylecgonine <50 Cutoff 50 ng/mL ng/mL 09/22/2020 7:49 AM EDT [facility] Comment:Cocaine Metabolite Fentanyl <1 Cutoff 1 ng/mL ng/mL 09/22/2020 7:49 AM EDT [facility] Comment:e.g.,Duragesic, Oral et, Actiq, Sublimaze, Innovar, Lazanda Norfentanyl <1 Cutoff 1 ng/mL ng/mL 09/22/2020 7:49 AM EDT [facility] Comment:Metabolite of Fentan yl 6-Monoacetylmorphine (6MAM) <10 Cutoff 10 ng/mL ng/mL 09/22/2020 7:49 AM EDT [facility] Comment:Metabolite of Heroin ; Morphine is expected Methadone <50 Cutoff 50 ng/mL ng/mL 09/22/2020 7:49 AM EDT [facility] Comment:e.g., Dolophine, Met hadose, Amidone EDDP <50 Cutoff 50 ng/mL ng/mL 09/22/2020 7:49 AM EDT [facility] Comment:Methadone Metabolite Carisoprodol <100 Cutoff 100 ng/mL ng/mL 09/22/2020 7:49 AM EDT [facility] Comment:e.g., Soma Meprobamate <100 Cutoff 100 ng/mL ng/mL 09/22/2020 7:49 AM EDT [facility] Comment:e.g., [place], Equa nil, Micrainin, Equagesic; Metabolite of Carisoprodol Codeine <50 Cutoff 50 ng/mL ng/mL 09/22/2020 7:49 AM EDT [facility] Comment:e.g., Acetaminophen w/Codeine, Tylenol3 w/ Codeine Codeine Glucuronide <50 Cutoff 50 ng/mL ng/mL 09/22/2020 7:49 AM EDT [facility] Comment:Metabolite of Codein e Meperidine <50 Cutoff 50 ng/mL ng/mL 09/22/2020 7:49 AM EDT [facility] Comment:e.g., Demerol, Pethi dine Normeperidine <50 Cutoff 50 ng/mL ng/mL 09/22/2020 7:49 AM EDT [facility] Comment:Metabolite of Meperi dine Morphine <50 Cutoff 50 ng/mL ng/mL 09/22/2020 7:49 AM EDT [facility] Comment:e.g., MS Contin, Tiffanie anol; Metabolite of Codeine and Heroin; may reflect poppy seed ingestion Nslqjdzd-7-Zzgbibrcmjs <25 Cutoff 25 ng/mL ng/mL 09/22/2020 7:49 AM EDT [facility] Comment:Metabolite of Morphi ne. Uppovjxf-3-Ebkhpuewmgv <25 Cutoff 25 ng/mL ng/mL 09/22/2020 7:49 AM EDT [facility] Comment:Metabolite of Morphi ne. Naloxone <25 Cutoff 25 ng/mL ng/mL 09/22/2020 7:49 AM EDT [facility] Comment:e.g., Narcan, Evzio Hydrocodone <50 Cutoff 50 ng/mL ng/mL 09/22/2020 7:49 AM EDT [facility], [facility] Comment:e.g., Lorcet, Lortab , Vicodin, [place]; Minor Metabolite of Codeine Dihydrocodeine <50 Cutoff 50 ng/mL ng/mL 09/22/2020 7:49 AM EDT [facility], [facility] SYSTEM Comment:e.g., Didrate, Parzo ne, Parlor, Synalgos; Metabolite of Hydrocodone Norhydrocodone <50 Cutoff 50 ng/mL ng/mL 09/22/2020 7:49 AM EDT [facility], [facility] Comment:Metabolite of Hydroc odone Hydromorphone <50 Cutoff 50 ng/mL ng/mL 09/22/2020 7:49 AM EDT [facility], [facility] Comment:e.g., Dilaudid; also Metabolite of Hydrocodone and Minor Metabolite of Morphine Hydromorphone Glucuronide <50 Cutoff 50 ng/mL ng/mL 09/22/2020 7:49 AM EDT [facility], [facility] Comment:Metabolite of Hydrom orphone Oxycodone <50 Cutoff 50 ng/mL ng/mL 09/22/2020 7:49 AM EDT [facility], [facility] Comment:e.g., Oxycontin, Per cocet, Endocet, Percodan, Roxicet Noroxycodone <50 Cutoff 50 ng/mL ng/mL 09/22/2020 7:49 AM EDT [facility], [facility] Comment:Metabolite of Oxycod one Oxymorphone <50 Cutoff 50 ng/mL ng/mL 09/22/2020 7:49 AM EDT [facility], [facility] Comment:e.g., Opana; Metabol ite of Oxycodone Oxymorphone Glucuronide <50 Cutoff 50 ng/mL ng/mL 09/22/2020 7:49 AM EDT [facility] Comment:Metabolite of Oxycod one Noroxymorphone <50 Cutoff 50 ng/mL ng/mL 09/22/2020 7:49 AM EDT [facility] Comment:Metabolite of Oxycod one, and Oxymorphone, Noroxycodone Metabolite Tramadol <50 Cutoff 50 ng/mL ng/mL 09/22/2020 7:49 AM EDT [facility], [facility] Comment:e.g., Ultram, ConZip A-Pvdgeosql-otd-Tramadol <50 Cutoff 50 ng/mL ng/mL 09/22/2020 7:49 AM EDT [facility], [facility] Comment:Metabolite of Tramad ol Tapentadol <50 Cutoff 50 ng/mL ng/mL 09/22/2020 7:49 AM EDT [facility], [facility] Comment:Nucynta Tapentadol-Glucuronide <50 Cutoff 50 ng/mL ng/mL 09/22/2020 7:49 AM EDT [facility], [facility] Comment:Metabolite of Tapent adol Urine STRUCTURE OF URINARY TRACT PROPER / Unknown 09/19/2020 10:54 AM EDT 09/19/2020 10:54 AM EDT Narrative [facility], [facility] - 09/22/2020 7:49 AM EDT The absence of expected drug(s), and/or drug metabolite(s), may indicate non-compliance, diluted or adulterated urine, poor drug absorption, concentration of drug below the cut-off, timing of specimen collection relative to administration of drug, or limitations of testing. If results do not fit clinical expectations, please reach out to the Toxicology department at [phone]. Specimens are held for 7 days. This test was developed, and its performance characteristics determined by [facility] ([facility] It has not been cleared or approved by the FDA. This test is used for clinical purposes. It should not be regarded as investigational or for research. [facility] is certified under the Clinical Laboratory Improvement Amendments (CLIA) as qualified to perform high complexity clinical laboratory testing. Severo Harrell DO URINE ORDERABLES Final Result [facility], [address] , [address] [place] [id number] * MRI ANKLE LEFT WO CONTRAST (09/03/2020 [...] PLACEMENT (08/27/2020 12:39 PM EDT) Narrative [facility] - 08/27/2020 12:39 PM EDT Yara Torres 08/27/2020 12:39 PM Intraop Airway Placement: Airway type: Nasal cannula salter Oumar Weiss MD [place] ANESTHESIA Final Res ult [facility] [address] [place] [phone] * (ABNORMAL) VITAMIN B12/ FOLIC ACID (08/22/2020 2:29 PM EDT) Vitamin B12 >1,600(H) 232-1,245 pg/mL 08/22/2020 6:33 PM EDT [facility] Folate >16.00 >=4.80 ng/mL 08/22/2020 6:33 PM EDT [facility] Blood Venipuncture / Unknown 08/22/2020 2:29 PM EDT 08/22/2020 2:29 PM EDT Narrative [facility] - 08/22/2020 6:33 PM EDT Ingestion of aldair doses of biotin (>5 mg/day) taken within 8 hours of drawing blood sample can interfere with this immunoassay test. Janet Vogt MD CHEMISTRY ORDERABLES Fi nal Result Performing Organization Address [facility] Co de Phone Number [facility] [address] [place] [address] , [place] [address] * TSH REFLEX (08/22/2020 2:29 PM EDT) Only the most recent of2 resultswithin the time period is included. Pathologist [facility] TSH Reflex 1.630 0.270 - 4.200 mcIU/mL 08/22/2020 6:19 PM EDT [facility] Blood Venipuncture / Unknown 08/22/2020 2:29 PM EDT 08/22/2020 2:29 PM EDT Narrative [facility] - 08/22/2020 6:19 PM EDT Ingestion of aldair doses of biotin (>5 mg/day) taken within 8 hours of drawing blood sample can interfere with this immunoassay test. Janet Vogt MD CHEMISTRY ORDERABLES Fi nal Result Performing Organization Address [facility] Co de Phone Number [facility] [employer] [address] , [place] [address] * MAGNESIUM LEVEL (08/22/2020 2:29 PM EDT) [facility] Signature Magnesium 2.0 1.6 - 2.4 mg/dL 08/22/2020 6:07 PM EDT [facility] Blood VENOUS BLOOD / Unknown Venipuncture / Unknown 08/22/2020 2:29 PM EDT 08/22/2020 2:29 PM EDT Janet Vogt MD CHEMISTRY ORDERABLES Fi nal Result Performing Organization Address [facility] Co de Phone Number [facility] [address], [place] [address] * IOL BIOMETRY - OU - BOTH EYES (07/31/2020 2:50 PM EDT) Narrative SEP OFFICE - 07/31/2020 2:50 PM EDT Right Eye Patient is here for baseline imaging. Lens style: monofocal. Formula used: (Jah Craig). Target refraction: per patient preference. Left Eye Patient is here for baseline imaging. Lens style: monofocal. Formula used: (Jah Craig). Target refraction: per patient preference. us Na Ang MD OPHTHALMOLOGY SERVICES ORDERAB LES Final Result Performing Organization Address [facility] de Phone Number SEP OFFICE * INTRAOP AIRWAY PLACEMENT (07/30/2020 2:24 PM EDT) Narrative [facility] - 07/30/2020 2:24 PM EDT Laura Holden CRNA 07/30/2020 2:24 PM Intraop Airway Placement: Induction type: IV Airway type: Nasal cannula salter Juan Lynn MD [place] ANESTHESIA Final R esult Performing Organization Address [facility] Co de Phone Number [facility] [address] [place] [address] * OCT, OPTIC NERVE - [...] ORDERAB LES Final Result SEP OFFICE * US RENAL AND BLADDER (04/22/2020 1:25 PM EST) Anatomical Region Laterality Modality Abdomen, Pelvis Ultrasound 04/22/2020 1:25 PM EST Impressions 04/22/2020 1:38 PM EST Bladder post void volume 11 mL. - Narrative 04/22/2020 1:38 PM EST US KIDNEYS AND BLADDER, 04/22/2020 1:25 PM CLINICAL HISTORY: R33.9-Retention of urine, osveobaugrl-TYJ-42-CM. COMPARISON: None. PROCEDURE COMMENTS: Routine sonographic evaluation of the kidneys and bladder with internet sales representative images and hoop bender tank notes sent to PACS for radiologist review. [...] 1:25 PM CLINICAL HISTORY: R33.9-Retention of urine, dfqpnybnkiq-XPH-90-CM. COMPARISON: None. PROCEDURE COMMENTS: Routine sonographic evaluation of the kidneys andbladder with internet sales representative images and hoop bender tank notes sent to PACS forradiologist review. FINDINGS: [...] Bladder post void volume 11 mL. - us Heydi Merrill MD IMG US ORDERABLES Final Resu lt * (ABNORMAL) [...] bone density assessment. Study was performed on [employer] 5. Bone Density: Region BMD T-score Z-score [...] hip fracture. Reported by: Sapphire Hull PA-C, [facility] on 01/18/2020 1:11:00 PM. us Janet Vogt MD IMG DEXA ORDERABLES Fin al Result * SEDIMENTATION RATE AUTOMATED (01/08/2020 1:53 PM EDT) Sed Rate 6 0 - 30 mm/hr 01/08/2020 6:21 PM EDT [facility] Blood VENOUS BLOOD / Unknown Venipuncture / Unknown 01/08/2020 1:53 PM EDT 01/08/2020 1:53 PM EDT Severo Harrell DO HEMATOLOGY ORDERABLES Final Res ult [facility] [address] [place], [place] [id number] * EK EKG CVMHU SCREENING (12/19/2019 12:15 PM EDT) Anatomical Region Laterality Modality Electrocardiogra phy 12/19/2019 7:34 AM EDT Impressions 12/20/2019 1:18 PM EDT [facility] [place] Test Date: 2019-12-19 Pat Name: GILBERT MOREIRA Department: DEPID Room: Gender: Female [employer] Operations Specialist: : [id number] Requested By: LEONCIO SANDOVAL Order Number: [id number] Reading MD: Jorge Parker MD Interpretive Statements No Atrial Fibrillation detected at the time of screening. Electronically Signed On 12-20-2019 13:18:04 EDT by Jorge Parker MD Narrative Procedure Note Anderson Parker MD - 12/20/[address] [facility] [place] Test Date: 2019-12-19 Pat Name: GILBERT MOREIRA Department: DEPID Room: Gender: Female [employer] Source Operations Specialist: : [id number] Requested By: LEONCIO CAPUTO Order Number: [id number] Reading MD: Jorge Parker MD Interpretive Statements No Atrial Fibrillation detected at the time of screening. Electronically Signed On 12-20-2019 13:18:04 EDT by Jorge Parker MD Leoncio Haywood MAJOR CASE DETECTIVE IMG CVMHU EKG ORDE RABLES Final Result * [facility] VASCULAR CVMHU SCREENING SINGLE EXAM [...] is within normal ranges described by the [place] [employer] guidelines. Narrative Procedure Note Arthur Luna MD - 12/19/2019 IMPRESSION Findings & Recommendations Mild plaque seen during carotid artery screening. Recommend to follow upwith primary care physician to discuss risk modification and maybe rescreened in one year. The blood pressure taken at this screening is within normal rangesdescribed by the [place] [employer] guidelines. Leoncio Haywood MAJOR CASE DETECTIVE IMG VASCULAR ORDER LILO Final Result * GMED COLONOSCOPY (07/11/2019 12:30 PM EDT) 07/11/2019 12:3 0 PM EDT Impressions [facility] - 07/11/2019 1:00 PM EDT Erythema in the distal rectum. (Biopsy). Otherwise normal colonoscopy. Abnormal digital rectal exam (large external hemorrhoids). Plan: No need for further screening colonoscopies due to age. This section is an excerpt of the full report. us Gerardo Rahman MD GI PROCEDURE ORDERABLES Fi nal Result [facility] [address] [place] [address] * (ABNORMAL) POCT URINALYSIS DIPSTICK (05/24/2019 1:49 PM EST) Only the most recent of6 resultswithin the time period is included. 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 The breast tissue is almost entirely fat. Prior study comparison: Compared with prior studies the most recentbeing 01/31/18, 10/15/16 No mammographic evidence of malignancy. 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 PROCEDURE COMMENTS: AP view(s) of the abdomen per protocol. FINDINGS: Bowel gas pattern nonspecific. Stool burden not atypical. No small bowel distention. No organomegaly or mass. No abnormal calcifications. Procedure Note Galdino Sosa MD - 11/23/2018 CR, ABDOMEN AP, 11/23/2018 10:17 AM CLINICAL HISTORY: K59.01-Slow transit myzcglxvxxjm-KQT-12-CM COMPARISON: None. PROCEDURE COMMENTS: AP view(s) of the abdomen per protocol. FINDINGS: Bowel gas pattern nonspecific. Stool burden not atypical. No small bowel distention. No organomegaly or mass. No abnormal calcifications. IMPRESSION: Nonspecific abdomen. No evidence of constipation pattern. - - us Sandra Desiree Murrell PA-C IMG DIAGNOSTIC IMAGING ORD ERABLES [...] and Data System) is endorsed by the [place] [employer]. CAD-RADS grading is applied to vessels 1.5mm diameter and greater only. Link to source document. https://cdn.Phokkicom/scct.org/resource/resmgr/cad-rads/scct_jcct_cad-rads.pdf - - Narrative 09/20/2018 12:[address] CORONARY ANGIOGRAM, 09/20/2018 11:17 AM CLINICAL HISTORY: Z13.9-Encounter for screening, wxwfzvedrat-IAH-73-CM COMPARISON: None. PROCEDURE COMMENTS: Heart rate control using Metoprolol as documented in EPIC. 0.4mg of SL NTG given. 75 mL Isovue 370 intravenous contrast material. CCTA prospective ECG-gated technique for coronary artery visualization. Interactive 3-D postprocessing done by the reviewing physician on a [employer] workstation, with one or more of the [...] 11:17 AM CLINICAL HISTORY: Z13.9-Encounter for screening, emiuythmuvr-IRZ-75-CM COMPARISON: None. PROCEDURE COMMENTS: Heart rate control using Metoprolol as documented inEPIC. 0.4mg of SL NTG given. 75 mL Isovue 370 intravenous contrast material.CCTA prospective ECG-gated technique for coronary artery visualization.Interactive 3-D postprocessing done by the reviewing physician on a [employer] workstation,with one or more of the following: [...] Disease-Reporting and Data System) is endorsedby the [place] [employer]. CAD-RADS grading is applied to vessels1.5mm diameter and greater only. Link to source document. https://cdn.Since1910.com.MOAEC/scct.org/resource/resmgr/cad-rads/scct_jcct_cad-rads.pdf - - Manav Batista MD IMG CT ORDERABLES Final Res ult * CREATININE ISTAT (09/20/2018 10:36 AM EDT) Creatinine-iST AT 1.0 0.6 - 1.3 mg/dL 09/20/2018 10:38 AM EDT [facility] Blood BLOOD SPECIMEN / Unknown 09/20/2018 10:36 AM EDT 09/20/2018 10:38 AM EDT Manav Batista MD POINT OF CARE TEST ORDERABL ES Final Result [facility] [address] [place] [id number] * AR US VISCERAL VASCULAR COMPLETE (07/03/2018 11:27 AM [...] ORDERABLES Final Resu lt Performing Organization Address [facility] Phone Number [place] [phone] * EXTRA LAVENDER (06/14/2018 11:56 PM EST) Only the most recent of2 resultswithin the time period is included. Blood VENOUS BLOOD / Unknown Venipuncture / Unknown 06/14/2018 11:56 PM EST 06/14/2018 11:58 PM EST Sameer Coffey MD HEMATOLOGY ORDERABLES Final Res ult Performing Organization Address [facility] Phone Number [address] [address] * EXTRA LIGHT BLUE (06/14/2018 11:56 PM EST) Only the most recent of2 resultswithin the time period is included. Blood VENOUS BLOOD / Unknown Venipuncture / Unknown 06/14/2018 11:56 PM EST 06/14/2018 11:58 PM EST Sameer Coffey MD HEMATOLOGY ORDERABLES Final Res ult Performing Organization Address [facility] Phone Number [facility] [address] [place] [address] * GRUBBS VISUAL FIELD - OU - BOTH EYES (06/02/2018 3:28 PM EST) Narrative SEP OFFICE - 06/02/2018 3:28 PM EST Patient is here for baseline imaging. Right Eye Reliability was good. Foveal threshold was normal. Findings include inferior altitudinal defect. Left Eye Reliability was good. Foveal threshold was normal. Findings include non-specific defects. Result [facility] Na Ang MD OPHTHALMOLOGY SERVICES ORDERAB LES Final Result Performing Organization Address [facility]/ZIP Co de Phone Number SEP OFFICE * EC ECHOCARDIOGRAM COMPLETE W DOPPLER AND COLOR FLOW MAPPING (05/09/2018 1:50 PM EST) [facility] Ejection Fraction 65-70 % [place]AMIS Anatomical Region [...] aortic regurgitation. Mild mitral and tricuspid regurgitation. Result [facility] Kendy Biggs DO IMG ECHO ORDERABLES Final [...] thinning. Superior thickness was showing abnormal thinning. Result [facility] Na Ang MD OPHTHALMOLOGY SERVICES ORDERAB LES Final Result Performing Organization Address [facility] Co de Phone Number SEP OFFICE * ECG AND WAVEFORMS - TELEMETRY (04/25/2018 7:24 AM EST) Only the most recent of3 resultswithin the time period is included. ECG INTERPRET NSR [facility] CALIBRATION SPECIALIST APPROVED Yes [facility] 04/25/2018 7:24 AM EST Narrative [facility] - 04/25/2018 10:01 AM EST [place] 0.23 QRS 0.09 RR 1.02 QT 0.42 QTc 0.41 See Clinical Report link for waveform capture us Unknown Provider POINT OF CARE CARDIOLOGY Final Result [facility] [address] [place] [address] * CT ANGIOGRAM HEAD AND NECK W [...] perez exam findings [facility] Claire by Dr. Sanchez at 04/24/2018 10:30 PM. Binh Morales MD IMG CT ORDERABLES Final Resu lt * (ABNORMAL) GLUCOSE METER POC (04/24/2018 10:01 PM EST) Only the most recent of2 resultswithin the time period is included. [facility] Glucose Meter POC 155(H) 70 - 100 mg/dL 04/24/2018 10:02 PM [facility] Sample Type Capillary 04/24/2018 10:02 PM [facility] Patient Status Non-Critical Patient 04/24/2018 10:02 PM [facility] Blood BLOOD SPECIMEN / Unknown 04/24/2018 10:01 PM EST 04/24/2018 10:02 PM EST Sameer Elizondo MD POINT OF CARE TEST ORDERABLES Fi nal Result Performing Organization Address [facility] de Phone Number [place] [phone] * HM DEXA SCAN (10/07/2017) Impressions SEP OFFICE - [...] Historical Provider HEALTH MAINTENANCE Final Res ult Performing Organization Address [facility] de Phone Number SEP OFFICE * MRI KNEE RIGHT WO [...] patella. Minimal joint effusion. Geoff Dozier MD IMG MRI ORDERABLES Final [...] T1 and T2-weighted sequences obtained with and ktcklyl13 mL MultiHance on 3.0 Brunilda magnet. FINDINGS: [...] most narrowed; mild to moderate Geoff Gant [facility] MRI ORDERABLES Final Result * SURGICAL PATHOLOGY REPORT (06/17/2011 6:44 PM EST) Surgical Pathology Report PATIENT NAME:GILBERT MOREIRA Surgical Pathology Report Accession Number Collected Date/Time Received Date/Time [id number] 06/17/11 18:44 EST 06/17/11 18:44 EST Diagnosis 1) Ascending colon: - Non-Dysplastic Mucosal Polyps, consistent with Hyperplastic polyps. 2) Rectum: - Non-Dysplastic Mucosal Polyps, consistent with Hyperplastic polyps. CESAR MASON MD (Electronically signed by) Verified: 06/22/2011 TSG Sign Out Location Comment CPT CODE 12772 x 2 Clinical Information Screening colonoscopy; personal [...] the findings corroborate the diagnosis. _ [facility] 06/17/2011 6:44 PM EST Soha Lau PATHOLOGY ORDERABLES Final Resul t [facility] [address] [place] [address] * DX VERTEBRAL FRACTURE ASSESSMENT (05/26/2010 12:54 [...] via vertebral fracture assessment. Kat Timmons P.A.-C., [facility], OSMEL/Colton Wisdom M.D., [facility], OSMEL Procedure Note Teddy Lawrence - 05/28/2010 Kat [...] deformity via vertebral fractureassessment. Kat Timmons P.A.-C., [facility], CCD/Colton Wisdom M.D., SUZI, OSMEL Maxime Araiza MD IMG DEXA ORDERABLES Final [...] studies. IMPRESSION- No radiographic evidence of malignancy (KKS-Bhyjyuze-4) RECOMMENDATION- Routine screening mammogram in 1 year. * The patient with a palpable abnormality, unexplained by breast imaging, should be managed on clinical basis by the attending physician. * Breast imaging has a false negative rate of 15%. * The patient was notified by mail of the results of this examination. The mammogram was reviewed by a Radiologist and CAD. Stress Test Technician- GIBSON Cantu Physician- CAROLINA OATES MD Released [...] studies. IMPRESSION- No radiographic evidence of malignancy (IMP-Lhrtknsb-0) RECOMMENDATION- Routine screening mammogram in 1 year. * The patient with a palpable abnormality, unexplained by breast imaging, should be managed on clinical basis by the attending physician. * Breast imaging has a false negative rate of 15%. * The patient was notified by mail of the results of this examination. The mammogram was reviewed by a Radiologist and CAD. Stress Test Technician- GIBSON Cantu Physician- CAROLINA OATES MD Released Date Time- 07/15/08 1726 Maxime Araiza MD IMG SEH BEV MCKEON L Final Result * EK AMBULATORY B/P [...] in blood pressure. Clinical correlation is recommended. Stress Test Technician- DMITRIY NOGUERA Reading Physician- JARED HOLLIDAY M.D. [...] in blood pressure. Clinical correlation is recommended. Stress Test Technician- DMITRIY NOGUERA Reading Physician- JARED HOLLIDAY M.D. Released Date Time- 07/17/08 0909 us Maxime Araiza MD [facility] ST[facility] CARD HISTORIC AL Final Result * [...] each standard deviation decline in bone density. Stress Test Technician- GIBSON Cantu Physician- CAROLINA OATES MD Released [...] each standard deviation decline in bone density. Stress Test Technician- GIBSON Cantu Physician- CAROLINA OATES MD Released Date Time- 07/11/082006 Maxime Araiza MD [facility] STAR RAD HISTORICA L Final Result * [...] studies. IMPRESSION- No radiographic evidence of malignancy (EJK-Rtxxrexc-7) RECOMMENDATION- Routine screening mammogram in 1 year. * The patient with a palpable abnormality, unexplained by breast imaging, should be managed on clinical basis by the attending physician. * Breast imaging has a false negative rate of 15%. * The patient was notified by mail of the results of this examination. The mammogram was reviewed by a Radiologist and CAD. Stress Test Technician- GIBSON HERRING Reading Radiologist- PRASHANT FAUSTIN MD Released Date Time- 10/06/05 1111 Procedure Note Prashant Faustin G - 07/09/2009 Procedure-WW MAMMO SCREEN W/CAD II PANEL Reason for exam- screening. Screening Mammogram With CAD Bilateral CC and MLO view(s) were taken. Prior study comparison- January 17, 2004, bilateral screening mammogram. January 04, 2002, bilateral screening mammogram. There are scattered fibroglandular densities. No significant changes when compared with prior studies. IMPRESSION- No radiographic evidence of malignancy (FEH-Embelqxq-4) RECOMMENDATION- Routine screening mammogram in 1 year. * The patient with a palpable abnormality, unexplained by breast imaging, should be managed on clinical basis by the attending physician. * Breast imaging has a false negative rate of 15%. * The patient was notified by mail of the results of this examination. The mammogram was reviewed by a Radiologist and CAD. Stress Test Technician- GIBSON HERRING Reading Radiologist- PRASHANT FAUSTIN MD Released Date Time- 10/06/05 1111 Roderick Huynh MD [facility] Final Result Visit Diagnoses Diagnosis Start [...] initial encounter 01/18/2019 Coronary artery disease involving cachil dehe coronary artery of cachil dehe heart without angina pectoris 01/25/2019 Mixed hyperlipidemia [...] Other constipation 04/05/2019 Coronary artery disease involving cachil dehe coronary artery of c[place] heart without angina pectoris 04/12/2019 Heart murmur [...] unspecified hyperlipidemia 08/19/2020 Coronary artery disease involving cachil dehe coronary artery of c[place] de[place] heart without angina pectoris 08/19/2020 Heart murmur [...] unspecified hyperlipidemia 01/19/2021 Coronary artery disease involving cachil dehe coronary artery of c[place] de[place] heart without angina pectoris 01/19/2021 Nonobstructive atherosclerosis of coronary artery 01/19/2021 Irritable bowel syndrome with constipation Irritable bowel syndrome 02/02/2021 Gastroesophageal reflux disease, unspecified whether esophagitis present 02/02/2021 Chronic cholecystitis 02/02/2021 Coronary artery disease involving cachil dehe coronary artery of cachil dehe heart without angina pectoris 03/05/2021 Heart murmur [...] intervertebral disc 07/27/2021 Coronary artery disease involving cachil dehe coronary artery of cachil dehe heart without angina pectoris 07/30/2021 Essential hypertension [...] 12/14/2024 Secondary adrenal insufficiency Glucocorticoid deficiency 12/14/2024 Acquired hypothyroidism Unspecified hypothyroidism 01/16/2025 Chronic fatigue Other malaise and fatigue 01/16/2025 Vitamin D deficiency Unspecified vitamin D deficiency 01/16/2025 Secondary adrenal insufficiency Glucocorticoid deficiency 01/16/2025 Reactive hypoglycemia Hypoglycemia, unspecified 01/16/2025 Other hyperlipidemia 01/16/2025 Hypertensive emergency Unspecified essential hypertension 04/24/2018 Acquired [...] EDT) No Page Chatterjee, RN Care Teams Certified Medication Technician Relationship Specialty Start Date End Date Na Ang MD [address] [address] Consulting Physician Ophthalmology 07/10/20
--- OUTSIDE RECORDS SUMMARY | 2025-01-18 15:27 | XMS_ITS | Encounter Summary ---
Author Organization [place] [address] Care Team Providers Care Gas Plant Technician Name Role Phone Na Ang MD Unavailable Reason for Visit * Reason Onset Date Comments Schedule Appointment 01/16/2025 Encounter Details Date Type Department Care Team (Late st Contact Info) Description 01/16/[address] [facility] 1500 [facility] [address] [place], [place] [phone] Katharine Whitlock MD 1500 [facility] [address] [place] [phone] Schedule Appointment Social History Tobacco Use Types Packs/Day Years [...] Date Recorded PHQ-2 Total Score 0 07/28/2022 [facility] [place] of Occupat ional Health - Occupational Stress [...] 12/18/2020 1:08 PM Adriana Velasco CCMA * Is the person blind or [...] Anders CHRIS Kat documented in this encounter Miscellaneous Notes * Telephone Encounter - Nadia German - 01/16/2025 12:01 PM EDT LVM and MCM for pt to call office and schedule MNT appt for reactive hypoglycemia. * Telephone Encounter - Jana Sifuentes RN - 01/16/2025 11:49 AM EDT Please call pt and schedule for MNT for reactive hypoglycemia. Thanks! * Telephone Encounter - Jana Sifuentes RN - 01/16/2025 11:49 AM EDT ----- Message from Katharine Whitlock MD sent at 01/16/2025 11:44 AM EDT ----- DE: Need MNT for reactive hypoglycemia documented in this encounter Plan of Treatment Upcoming Encounters Date Type Department Care Team (Late st Contact Info) Description 02/06/2025 2:30 PM EDT Office Visit [facility] [address] [phone] Liliya Guadarrama, RD,LD [address] [place] [address] 05/07/2025 12:40 PM EST Office Visit [facility] [place] [address] Katharine Whitlock MD 1500 [place] [address] 08/15/2025 1:40 PM EDT Office Visit [facility] [address] [address] Na Ang MD [address] documented as of this encounter Goals Goal [...] track( 1:53 PM EDT) No Page Chatterjee, MARISSA documented as of this encounter Visit Diagnoses Not on filedocumented in this encounter Additional Health Concerns Assessment Noted Time A fall risk assessment has been complete d for the patient 07/28/2022 2:08 PM EDT documented as of this encounter Care Teams Gas Plant Technician Relationship Specialty Start Date End Date Na Ang MD [address] [address] Consulting Physician Ophthalmology 07/10/20 documented as of this encounter
--- OUTSIDE RECORDS SUMMARY | 2025-01-18 15:27 | XMS_ITS | Encounter Summary ---
Author Organization Healthcare Address [address] [place] [address] Care Team Providers Care Braiding Machine Operator Name Role Phone Leroy Gordon LOG CHAIN WORKER Primary Care Provider [phone] Stefan Lennon MD Unavailable [phone] Vikas Green MD Unavailable [phone] Encounter Details Date Type Department Care Team (Late st Contact Info) Description 01/02/2025 Telephone [place] [facility] [address] [place] [address] Ashely Guy, HORACE [address] [place] [address] Social History Tobacco Use Types [...] * Telephone Encounter - Basilio Hernandez - 01/14/2025 5:31 PM EDT 01/14/2025 - Spoke to patient directly Scheduled preop visits for 01/23/2025 & Surgery date for L2-L5 Laminectomy for 02/15/2025 * Telephone Encounter - Holly Amaral - 01/11/2025 11:10 AM EDT Patient Phone Message Reason for Call: Pt returning Vincivanna's call to schedule surgery. Please advise Best contact number and optimal time of day to reach caller: [phone] Note: Please do not reply to this message. Follow-up communication and further actions as a result of this message need to be communicated with the patient directly, if the patient is not active onMyChart. If the patient is active on MyChart, they will receive notification of the communication/outcome via MyChart. * Telephone Encounter - Ashely Guy APRN [...] optimal time of day to reach caller: [phone] Note: Please do not reply to this message. Follow-up communication and further actions as a result of this message need to be communicated with the patient directly, if the patient is not active onMyChart. If the patient is active on MyChart, they will receive notification of the communication/outcome via MyChart. * Telephone Encounter - Ashely Guy APRN [...] L2-L5 laminectomy after review with Dr. Green. Left voicemail and will try to contact her tomorrow documented in this encounter Plan of Treatment Upcoming Encounters Date Type Department Care Team (Latest Contact Info) Description 01/23/2025 1:15 PM EDT Pre-Admission Testing [facility] [address] [place] [address] 01/23/2025 2:15 PM EDT Consult [place] [facility] [address] [place] [address] Vikas Green MD [address] [place] [address] 01/23/2025 3:20 PM EDT Clinical Support [facility] [address] [place] [phone] 02/15/2025 12:05 PM EDT Hospital Encounter [facility] [address] [place] [address] Vikas Green MD [address] [place] [address] 02/15/2025 12:05 PM EDT - 02/15/2025 2:55 PM EDT Surgery [facility] [address] [place] [phone] Vikas Green MD [address] [place] [address] L2-L5 Lumbar Laminectomy [79808 (CPT )] 07/05/2025 11:40 AM EST Office Visit [facility] [address] [place] [address] Devin Monahan MD [address] [place] [address] Scheduled Procedures Name Priority Associated [...] documented as of this encounter Care Teams Braiding Machine Operator Relationship Specialty Start Date End Date Leroy Gordon APRN [address] [place] [address] PCP - General 10/07/22 Stefan Lennon MD [address] [place] [address] Surgeon Neurosurgery 03/01/23 Vikas Green MD [address] [place] [address] Surgeon Neurosurgery 03/30/23 documented as of this encounter
--- OUTSIDE RECORDS SUMMARY | 2025-01-18 15:27 | XMS_ITS | Clinical Summary ---
Author Organization [facility] Address [address] [facility], [address] [place] [address] Care Team Providers Care Meteorology Teacher Name Role Phone Elvira Velarde MD Primary [...] 1 capsule by mouth daily 8 Active [place]-3 Fatty Acids (FISH OIL OMEGA-3 PO) Take [...] bone density assessment. Study was performed on [employer] 5. Bone Density: Region BMD T-score Z-score [...] Relevant to Health Maintenance Insurance Care Teams Meteorology Teacher Relationship Specialty Start Date End Date Elvira Velarde MD PCP - General Family Medicine 09/01/16
--- OUTSIDE RECORDS SUMMARY | 2025-01-18 15:27 | XMS_ITS | Encounter Summary ---
Author Organization [facility] Address [address] [place] [address] Care Team Providers Care Medicine And Health Service Manager Name Role Phone Nonstaff, Referring Primary Care Provider [phone] Prashant Barnes MD Unavailable [phone] Encounter Details Date Type Department Care Team (Late st Contact Info) Description 12/04/2015 Clinical Update [facility] Physicians - Urology, [facility] [place] [address] [place] [address] [place] [address] Hyacinth Rios NP [address] [place] [address] [place] [address] Social History Tobacco Use Types Packs/Day Years [...] on filedocumented in this encounter Care Teams Medicine And Health Service Manager Relationship Specialty Start [place] [address] [place] [address] PCP - General Family Medicine 03/20/13 Prashant Barnes MD [address] [facility]. [address] Urology 05/09/22 documented as of this encounter
--- OUTSIDE RECORDS SUMMARY | 2025-01-18 15:27 | XMS_ITS | Encounter Summary ---
Author Organization [facility] [place] [address] Care Team Providers Care Respiratory Assistant Name Role Phone Na Ang MD Unavailable [phone] Encounter Details Date Type Department Care Team (Latest Contact Info) Description 01/16/2025 Travel Social History Tobacco Use Types Packs/Day [...] Date Recorded PHQ-2 Total Score 0 07/28/2022 [facility] [place] of Occupat ional Health - Occupational Stress [...] 12/18/2020 1:08 PM EDAdriana Marcano CCMA * Because of a physical, mental or emotional condition, does this person have difficulty doing errands alone such as visiting a doctor's office or shopping? Answer Date of Assessment Author No 12/18/2020 1:08 PM Adriana Velasco CCMA documented as of this encounter Mental Status * Because of a physical, mental or emotional condition, does this person have serious difficulty concentrating, remembering or making decisions? Answer Entry Date Author No 12/18/2020 1:08 PM EDT Adriana Anders CCMA documented in this encounter Plan of Treatment Upcoming Encounters Date Type Department Care Team (Late st Contact Info) Description 02/06/2025 2:30 PM EDT Office Visit [facility] [address] [employer] [address] [place] [phone] Liliya Guadarrama, RD,LD [address] [place] [address] 05/07/2025 12:40 PM EST Office Visit [facility] [place] [address] [employer] [address] [place] [phone] Katharine Whitlock MD [address] [place] [phone] 08/15/2025 1:40 PM EDT Office Visit [facility] [address] [employer] [address] [place] [phone] Na Ang MD [address] [facility] [address] [phone] documented as of this encounter Goals Goal [...] documented as of this encounter Care Teams Respiratory Assistant Relationship Specialty Start Date End Date Na Ang MD [address] [address] Consulting Physician Ophthalmology 07/10/20 documented as of this encounter
--- OUTSIDE RECORDS SUMMARY | 2025-01-18 15:27 | XMS_ITS | Encounter Summary ---
Author Organization Healthcare Address [address] [place] [address] Care Team Providers Care Knowledge Architect Name Role Phone Leroy Gordon HORACE Primary Care Provider [phone] Stefan Lennon MD Unavailable [phone] Vikas Green MD Unavailable [phone] Encounter Details Date Type Department Care Team [...] Description 01/23/2025 1:15 PM EDT Pre-Admission Testing [place] [facility] [address] [place] [address] 01/23/2025 2:15 PM EDT Consult [place] [facility] [address] [place] [address] Vikas Green MD [address] [place] [address] 01/23/2025 3:20 PM EDT Clinical Support [place] [facility] Lab [address] [place] [address] 02/15/2025 12:05 PM EDT Hospital Encounter [facility] [address] [place] [address] Vikas Green MD [phone] [place] [address] 02/15/2025 12:05 PM EDT - 02/15/2025 2:55 PM EDT Surgery [facility] [address] [place] [address] Vikas Green MD [address] [address] L2-L5 Lumbar Laminectomy [46999 (CPT )] 07/05/2025 11:40 AM EST Office Visit [address] [facility] [address] [place] [address] Devin Monahan MD [address] [place] [address] Scheduled Procedures Name Priority Associated [...] documented as of this encounter Care Teams Knowledge Architect Relationship Specialty Start Date End Date Leroy Gordon APRN [address] [place] [address] PCP - General 10/07/22 Steafn Lennon MD [address] [phone] Surgeon Neurosurgery 03/01/23 Vikas Green MD [address] [place] [address] Surgeon Neurosurgery 03/30/23 documented as of this encounter
--- OUTSIDE RECORDS SUMMARY | 2025-01-18 15:27 | XMS_ITS | Encounter Summary ---
Author Organization [facility] Address [address] [facility], [address] [place] [address] Care Team Providers Care Belling Machine Operator Name Role Phone Elvira Velarde MD Primary Care Provider Jossue mejía Reason for Visit * Reason Comments Medication Refill Encounter Details Date Type Department Care Team (Late st Contact Info) Description 10/18/2017 Refill [facility] [address] [facility] [address] [place] [address] Sid Olmedo MD [address] [place], [place] [phone] Medication Refill Social History Tobacco Use Types [...] on filedocumented in this encounter Care Teams Belling Machine Operator Relationship Specialty Start Date End Date Elvira Velarde MD PCP - General Family Medicine 09/01/16 documented as of this encounter
--- OUTSIDE RECORDS SUMMARY | 2025-01-18 15:27 | XMS_ITS | Clinical Summary ---
Author Organization [facility] Address [address] [place] [address] Care Team Providers Care District Fire Management Officer Name Role Phone Nonstaff, Referring MD Primary Care Provider [phone] Prashant Barnes MD Unavailable [phone] Allergies Active Allergy Reactions Criticality Noted Date [...] Active fluticasone (FLONASE) 50 mcg/actuation nasal spray [place] 1 [place] into nose daily. Active omeg3/dha/epa/f antonia oil/L.casei [...] 1 Cancer Brother 2 Heart Problems Father [place] Hypertension Father Stroke Mother Cancer Sister Hypertension [...] Advance Directives For more information, please contact: [phone] * No Code Status (Latest Code Status on File) Date Activated Date Inactivated Comments 07/03/2015 11:28 AM Pt [facility] * Full Code Date Activated Date Inactivated Comments 02/08/2008 2:38 AM 02/08/2008 4:55 PM Care Teams District Fire Management Officer Relationship Specialty Start Date End Date Nonstaff, MD Deshawn [address] [place], [place] [phone] (Work) PCP - General Family Medicine 03/20/13 Prashant Barnes MD [address] [facility] [place] [place] [address] Urology 05/09/22
--- OUTSIDE RECORDS SUMMARY | 2025-01-18 15:27 | XMS_ITS | Encounter Summary ---
Author Organization [facility] Address [address] [facility], [address] [place] [address] Care Team Providers Care Agricultural Systems Specialist Name Role Phone Elvira Velarde MD Primary Care Provider Jossue mejía Reason for Visit * Reason Comments Medication Refill Encounter Details Date Type Department Care Team (Late st Contact Info) Description 01/28/2015 Refill [facility] Zach [address] [place] [address] [address] [place] [address] Heydi Stoll PA-C [address] [place] [address] [address] [place] [address] Medication Refill Social History Tobacco Use Types [...] on filedocumented in this encounter Care Teams Agricultural Systems Specialist Relationship Specialty Start Date End Date Elvira Velarde MD PCP - General Family Medicine 09/01/16 documented as of this encounter
--- OUTSIDE RECORDS SUMMARY | 2025-01-18 15:28 | XMS_ITS | Encounter Summary ---
Author Organization [facility] Address [facility] [place] [address] Phone Care Team Providers Care Hearing Health Technician Name Role Phone Janet Vogt MD Primary Care Provider [phone] Encounter Details Date Type Department Care Team ([facility] st Contact Info) Description 07/22/2022 Discharge Call Center Patient Call Center [address] [place] [address] Social History Tobacco Use Types Packs/Day Years [...] on filedocumented in this encounter Care Teams Hearing Health Technician Relationship Specialty Start Date End Date Janet Vogt MD PCP - General Family Medicine 07/19/22 documented as of this encounter
--- OUTSIDE RECORDS SUMMARY | 2025-01-18 15:28 | XMS_ITS | Clinical Summary ---
Author Organization [facility] Address [address] [place] [address] Care Team Providers Care Lead Principal Technical Architect Name Role Phone Leroy Gordon APRN Primary Care Provider [phone] Stefan Lennon MD Unavailable [phone] Vikas Green MD Unavailable [phone] Allergies Active Allergy Reactions Criticality Noted Date [...] Type Department Care Team Description 01/02/2025 Telephone [facility] [address], [address] [place] [address] Ashely Guy, HORACE 01/01/2025 10:00 AM EDT Office Visit [facility] [address], [address] [place] [address] Ashely Guy, SPECIAL EDUCATION INSTRUCTOR Spinal stenosis of lumbar region with neurogenic claudication (Primary Dx); Chronic low back pain, unspecified back pain laterality, unspecified whether sciatica present; Degeneration of intervertebral disc of lumbar region with discogenic back pain and lower extremity pain; Neural foraminal stenosis of lumbar spine 01/01/2025 Travel 12/28/2024 Travel 12/27/2024 9:43 PM EDT - 12/28/2024 1:27 PM EDT Hospital Encounter [facility] Emergency [facility] [address] [place] [address] Maxime Gooden MD Numbness and tingling of both legs (Primary Dx); Lumbar back pain Discharge Disposition: Home or Self Care 12/27/2024 Travel 12/27/2024 Telephone [facility] [address], [address] [place] [address] Vikas Green MD 12/26/2024 Telephone [place] [id number], [address] [place] [address] Vikas Green MD 11/08/2024 Telephone [employer] [facility] [address] [facility], [address] [place] [address] Corrina Jarvis, PharmD from Last [...] Description 01/23/2025 1:15 PM EDT Pre-Admission Testing [facility] [address], 1st [place] [address] 01/23/2025 2:15 PM EDT Consult [facility] [address], 1st [place] [address] Vikas Green MD [address] [place] [address] 01/23/2025 3:20 PM EDT Clinical Support [facility] [address], [address]nd [place] [address] 02/15/2025 12:05 PM EDT Hospital Encounter [facility] O[facility]ATING ROOM [address] [place] [address] Vikas Green MD [address] [facility] [place] [address] 02/15/2025 12:05 PM EDT - 02/15/2025 2:55 PM EDT Surgery [facility]ATING RO[facility] [address] [place] [address] Vikas Green MD [id number] [place] [address] L2-L5 Lumbar Laminectomy [65215 (CPT )] 07/05/2025 11:40 AM EST Office Visit [facility] [address] [place] [address] Devin Monahan MD [address] [place] [address] Scheduled Procedures Name Priority Associated Diagnoses Date/Ti me LAMINECTOMY, SPINE, LUMBAR, 1 LEVEL, WITH FORAMINOTOMY OR FACETECTOMY Spinal stenosis of lumbar region with neurogenic claudication 02/15/2025 12:05 PM EDT Health Maintenance Due Date Last Done Comments [facility]-Depression Screening 1944 [facility]-/Child/Adol SDOH Screenings 1944 [facility]- SDOH Screenings 1962 [facility]-Adult SDOH Screenings 1962 [facility]-RSV Vaccine: 60+ Years or (1 - 1-dose 75+ series) 10/12/2019 [facility]-Medicare Annual Wellness (AWV) 01/19/2020 01/18/2019 [id number] Vaccine (2 - Moderna risk series) 12/27/2020 [...] 37 PM EDT MAGNESIUM, PLASMA STAT 12/27/2024 9: 37 PM EDT BASIC METABOLIC PANEL, PLASMA STAT [...] culture not indicated 12/28/2024 1:04 AM EDT [facility] Urine Urine specimen obtained by clean catch procedure / Unknown Non-blood Collection / Unknown 12/27/2024 11:02 PM EDT 12/27/2024 11:28 PM EDT Maxime Mae MD LAB URINE ORDERABLES Final Result [facility] [address] [place] [address] * Urinalysis Microscopic Examination (12/27/2024 11:02 PM EDT) Urine Urine specimen obtained by clean catch procedure / Unknown Non-blood Collection / Unknown 12/27/2024 11:02 PM EDT 12/27/2024 11:16 PM EDT us Maxime Mae MD LAB URINE ORDERABLES Final Result [facility] [address] [place] [address] * (ABNORMAL) Urinalysis with reflex microscopic (Culture NOT Included) (12/27/2024 11:02 PM EDT) Color, Urine Yellow LAB URINALYSIS - AUTOMATED METHOD 12/27/2024 11:53 PM EDT [facility] Clarity, Urine Clear LAB URINALYSIS - AUTOMATED METHOD 12/27/2024 11:53 PM EDT [facility] Spec Morrill, Urine 1.021 1.005 - 1.030 LAB URINALYSIS - AUTOMATED METHOD 12/27/2024 11:53 PM EDT [facility] pH, Urine 6.5 5.0 - 8.0 LAB URINALYSIS - AUTOMATED METHOD 12/27/2024 11:53 PM EDT [facility] Protein, Urine Negative Negative mg/dL LAB URINALYSIS - AUTOMATED METHOD 12/27/2024 11:53 PM EDT [facility] Glucose, Urine Negative Negative mg/dL LAB URINALYSIS - AUTOMATED METHOD 12/27/2024 11:53 PM EDT [facility] Ketones, Urine Negative Negative mg/dL LAB URINALYSIS - AUTOMATED METHOD 12/27/2024 11:53 PM EDT [facility] Blood, Urine Small(A) Negative LAB URINALYSIS - AUTOMATED METHOD 12/27/2024 11:53 PM EDT [facility] Bilirubin, Urine Negative Negative LAB URINALYSIS - AUTOMATED METHOD 12/27/2024 11:53 PM EDT [facility] Urobilinogen, Urine 0.2 0.2 to 1.0 mg/dL LAB URINALYSIS - AUTOMATED METHOD 12/27/2024 11:53 PM EDT [facility] Leukocytes, Urine Negative Negative LAB URINALYSIS - AUTOMATED METHOD 12/27/2024 11:53 PM EDT [facility] Nitrite, Urine Negative Negative LAB URINALYSIS - AUTOMATED METHOD 12/27/2024 11:53 PM EDT [facility] RBC, Urine <1 0 to 3 /HPF LAB URINALYSIS - AUTOMATED METHOD 12/27/2024 11:53 PM EDT [facility] Comment:This result was prev iously suppressed from the chart. WBC, Urine 0 - 5 0 to 5 /HPF LAB URINALYSIS - AUTOMATED METHOD 12/27/2024 11:53 PM EDT [facility] Comment:This result was prev iously suppressed from the chart. Squamous Epithelial Cells 0 - 2 0 to 5 /HPF LAB URINALYSIS - AUTOMATED METHOD 12/27/2024 11:53 PM EDT [facility] Comment:This result was prev iously suppressed from the chart. Hyaline Casts 0 - 2 0 to 5 /LPF LAB URINALYSIS - AUTOMATED METHOD 12/27/2024 11:53 PM EDT [facility] Comment:This result was prev iously suppressed from the chart. Bacteria, Urine Negative Negative LAB URINALYSIS - AUTOMATED METHOD 12/27/2024 11:53 PM EDT [facility] Comment:This result was prev iously suppressed from the chart. Urine Urine specimen obtained by clean catch procedure / Unknown Non-blood Collection / Unknown 12/27/2024 11:02 PM EDT 12/27/2024 11:16 PM EDT Maxime Mae MD LAB URINE ORDERABLES Final Result [facility] [address] [place] [address] * CT Angio Abdomen Pelvis (12/27/2024 10:18 [...] Total DLP (Dose-Length Product): 2981.63 mGy.cm (accession [id number]), 2981.63 mGy.cm (accession [id number]), 2981.63 mGy.cm (accession [id number]). Please note: The reported value represents the [...] Total DLP (Dose-Length Product): 2981.63 mGy.cm (accession [id number]),2981.63 mGy.cm (accession [id number]), 2981.63 mGy.cm (accession [id number]).Please note: The reported value represents the total [...] Total DLP (Dose-Length Product): 2981.63 mGy.cm (accession [id number]), 2981.63 mGy.cm (accession [id number]), 2981.63 mGy.cm (accession [id number]). Please note: The reported value represents the [...] mild sclerosis to the left side uses [place] chronic in appearance. There are no acute [...] Total DLP (Dose-Length Product): 2981.63 mGy.cm (accession [id number]),2981.63 mGy.cm (accession [id number]), 2981.63 mGy.cm (accession [id number]).Please note: The reported value represents the total [...] Total DLP (Dose-Length Product): 2981.63 mGy.cm (accession [id number]), 2981.63 mGy.cm (accession [id number]), 2981.63 mGy.cm (accession [id number]). Please note: The reported value represents the [...] Total DLP (Dose-Length Product): 2981.63 mGy.cm (accession [id number]),2981.63 mGy.cm (accession [id number]), 2981.63 mGy.cm (accession [id number]).Please note: The reported value represents the total [...] LAB HEMATOLOGY METHOD 12/27/2024 9:42 PM EDT [facility] RBC Count 4.23 3.90 - 5.20 10*6/uL LAB HEMATOLOGY METHOD 12/27/2024 9:42 PM EDT [facility] HGB 12.7 11.2 - 15.7 g/dL LAB HEMATOLOGY METHOD 12/27/2024 9:42 PM EDT [facility] HCT 36.9 34.0 - 45.0 % LAB HEMATOLOGY METHOD 12/27/2024 9:42 PM EDT [facility] Platelet Count 313 155 - 369 10*3/uL LAB HEMATOLOGY METHOD 12/27/2024 9:42 PM EDT [facility] MCV 87 79 - 98 fL LAB HEMATOLOGY METHOD 12/27/2024 9:42 PM EDT [facility] MCH 30.0 26.0 - 32.0 pg LAB HEMATOLOGY METHOD 12/27/2024 9:42 PM EDT [facility] MCHC 34.4 30.7 - 35.5 g/dL LAB HEMATOLOGY METHOD 12/27/2024 9:42 PM EDT [facility] RDW 13.4 11.5 - 14.5 % LAB HEMATOLOGY METHOD 12/27/2024 9:42 PM EDT [facility] MPV 9.4 8.8 - 12.5 fL LAB HEMATOLOGY METHOD 12/27/2024 9:42 PM EDT [facility] nRBC 0.0 <=0.0 per 100 WBCs LAB HEMATOLOGY METHOD 12/27/2024 9:42 PM EDT [facility] Differential Type Automated LAB HEMATOLOGY METHOD 12/27/2024 9:42 PM EDT [facility] Neutrophils % 49 % LAB HEMATOLOGY METHOD 12/27/2024 9:42 PM EDT [facility] Lymphocytes % 36 % LAB HEMATOLOGY METHOD 12/27/2024 9:42 PM EDT [facility] Monocytes % 10 % LAB HEMATOLOGY METHOD 12/27/2024 9:42 PM EDT [facility] Eosinophils % 4 % LAB HEMATOLOGY METHOD 12/27/2024 9:42 PM EDT [facility] Basophils % 1 % LAB HEMATOLOGY METHOD 12/27/2024 9:42 PM EDT [facility] Immature Granulocytes % 0 % LAB HEMATOLOGY METHOD 12/27/2024 9:42 PM EDT [facility] Neutrophils Absolute 2.65 1.60 - 6.10 10*3/uL LAB HEMATOLOGY METHOD 12/27/2024 9:42 PM EDT [facility] Lymphocytes Absolute 1.94 1.20 - 3.90 10*3/uL LAB HEMATOLOGY METHOD 12/27/2024 9:42 PM EDT [facility] Monocytes Absolute 0.51 0.30 - 0.90 10*3/uL LAB HEMATOLOGY METHOD 12/27/2024 9:42 PM EDT [facility] Eosinophils Absolute 0.21 0.00 - 0.50 10*3/uL LAB HEMATOLOGY METHOD 12/27/2024 9:42 PM EDT [facility] Basophils Absolute 0.06 0.00 - 0.10 10*3/uL LAB HEMATOLOGY METHOD 12/27/2024 9:42 PM EDT [facility] Immature Granulocytes Absolute 0.02 0.00 - 0.06 10*3/uL LAB HEMATOLOGY METHOD 12/27/2024 9:42 PM EDT [facility] Blood Venous blood specimen / Unknown Venipuncture / Unknown 12/27/2024 9:37 PM EDT 12/27/2024 9:40 PM EDT Narrative [facility] - 12/27/2024 9:42 PM EDT Therapeutic decision making should be based on absolute values, rather than percentages. us Maxime Mae MD LAB BLOOD ORDERABLES Final Result [facility] [address] [place] [address] * Phosphorus (12/27/2024 9:37 PM EDT) Phosphorus, Plasma 3.4 2.5 - 4.5 mg/dL 12/27/2024 10:03 PM EDT [facility] Blood Venous blood specimen / Unknown Venipuncture / Unknown 12/27/2024 9:37 PM EDT 12/27/2024 9:40 PM EDT us Maxime Mae MD LAB BLOOD ORDERABLES Final Result [facility] [address] [place] [address] * Magnesium (12/27/2024 9:37 PM EDT) Magnesium, Plasma 2.1 1.9 - 2.4 mg/dL 12/27/2024 10:03 PM EDT [facility] Blood Venous blood specimen / Unknown Venipuncture / Unknown 12/27/2024 9:37 PM EDT 12/27/2024 9:40 PM EDT us Maxime Mae MD LAB BLOOD ORDERABLES Final Result [facility] [address] [place] [address] * BMP (12/27/2024 9:37 PM EDT) Glucose, Plasma 97 74 - 99 mg/dL 12/27/2024 10:03 PM EDT [facility] BUN, Plasma 21 8 - 23 mg/dL 12/27/2024 10:03 PM EDT [facility] Creatinine, Plasma 0.97 0.60 - 1.10 mg/dL 12/27/2024 10:03 PM EDT [facility] BUN/Creatinine Ratio 22 12/27/2024 10:03 PM EDT [facility] Sodium, Plasma 139 136 - 145 mmol/L 12/27/2024 10:03 PM EDT [facility] Potassium, Plasma 3.8 3.6 - 4.9 mmol/L 12/27/2024 10:03 PM EDT [facility] Chloride, Plasma 105 97 - 107 mmol/L 12/27/2024 10:03 PM EDT [facility] CO2, Plasma 23 22 - 29 mmol/L 12/27/2024 10:03 PM EDT [facility] Anion Gap 11 6 - 16 mmol/L 12/27/2024 10:03 PM EDT [facility] Total Calcium, Plasma 9.8 8.9 - 10.2 mg/dL 12/27/2024 10:03 PM EDT [facility] eGFRcr 59.2 mL/min/1.7 3m*2 12/27/2024 10:03 PM EDT [facility] Comment:Reported eGFRcr in m L/min/1.73m2 is based the CKD-EPI 2020 equation that does not use a race coefficient. Blood Venous blood specimen / Unknown Venipuncture / Unknown 12/27/2024 9:37 PM EDT 12/27/2024 9:40 PM EDT us Maxime Mae MD LAB BLOOD ORDERABLES Final Result [facility] [address] [place] [address] from Last 3 Months Insurance Care Teams Lead Principal Technical Architect Relationship Specialty Start Date End Date Leroy Gordon APRN [address] [place], [place] [phone] PCP - General 10/07/22 Stefan Lennon MD [address] [place] [address] Surgeon Neurosurgery 03/01/23 Vikas Green MD [address] [place] [address] Surgeon Neurosurgery 03/30/23
--- OUTSIDE RECORDS SUMMARY | 2025-01-18 15:28 | XMS_ITS | Encounter Summary ---
Author Organization Healthcare Address [address] [place] [address] Care Team Providers Care Producer Name Role Phone Leroy Gordon APRN Primary Care Provider [phone] Stefan Lennon MD Unavailable [phone] Vikas Green MD Unavailable [phone] Encounter Details Date Type Department Care Team (Late st Contact Info) Description 12/26/2024 Telephone [facility] [address], 1st [place] [address] Vikas Green MD [address] [place] [address] Social History Tobacco Use Types [...] optimal time of day to reach caller: [phone] patient Note: Please do not reply to this message. Follow-up communication and further actions as a result of this message need to be communicated with the patient directly, if the patient is not active onMyChart. If the patient is active on MyChart, they will receive notification of the communication/outcome via [employer]. documented in this encounter Plan of Treatment Upcoming Encounters Date Type Department Care Team (Latest Contact Info) Description 01/23/2025 1:15 PM EDT Pre-Admission Testing [facility] Pre-op Clinic [address], [address] [place] [address] 01/23/2025 2:15 PM EDT Consult [facility] [address], [address]st [place] [address] Vikas Green MD [address] [place] [address] 01/23/2025 3:20 PM EDT Clinical Support [facility] Lab [address], [address]nd [place] [address] 02/15/2025 12:05 PM EDT Hospital Encounter [facility] [address] [place] [address] Vikas Green MD [address] [place] [address] 02/15/2025 12:05 PM EDT - 02/15/2025 2:55 PM EDT Surgery [facility] [address] [place] [address] Vikas Green MD [address] [place] [address] L2-L5 Lumbar Laminectomy [73309 (CPT )] 07/05/2025 11:40 AM EST Office Visit [facility] [address] [facility] [address] [place] [address] Devin Monahan MD [address] [place] [address] Scheduled Procedures Name Priority Associated [...] documented as of this encounter Care Teams Producer Relationship Specialty Start Date End Date Leroy Gordon APRN [address] [place] [address] PCP - General 10/07/22 Stefan Lennon MD [address] [place] [address] Surgeon Neurosurgery 03/01/23 Vikas Green MD [address] [place] [address] Surgeon Neurosurgery 03/30/23 documented as of this encounter
--- OUTSIDE RECORDS SUMMARY | 2025-01-18 15:28 | XMS_ITS | Encounter Summary ---
Author Organization [facility] Address [address] [place] [address] Care Team Providers Care Drywall Finishing Foreman Name Role Phone Leroy Gordon BOAT JOINER HELPER Primary Care Provider [phone] Stefan Lennon MD Unavailable [phone] Vikas Green MD Unavailable [phone] Encounter Details Date Type Department Care Team (Late st Contact Info) Description 12/23/2022 Orders Only External Location [address] [place] [address] Leroy Gordon, BOAT JOINER HELPER [address] [place], [place] [id number] Social History Tobacco Use Types Packs/Day Years [...] Description 01/23/2025 1:15 PM EDT [facility] [address], [address]st [place] [address] 01/23/2025 2:15 PM EDT Consult [facility] [address], [address]st [place] [address] Vikas Green MD [address] [place] [address] 01/23/2025 3:20 PM EDT Clinical Support [facility] [address], [address]nd [place] [address] 02/15/2025 12:05 PM EDT Hospital Encounter [facility] [address] [place] [address] Vikas Green MD [address] [facility] [place] [address] 02/15/2025 12:05 PM EDT - 02/15/2025 2:55 PM EDT Surgery [facility]ATING [facility] [address] [place] [address] Vikas Green MD [id number] [place] [address] L2-L5 Lumbar Laminectomy [22993 (CPT )] 07/05/2025 11:40 AM EST Office Visit [facility] [address] [facility] [address] [place] [address] Devin Monahan MD [address] [place] [address] Scheduled Procedures Name Priority Associated [...] documented as of this encounter Care Teams Drywall Finishing Foreman Relationship Specialty Start Date End Date Leroy Gordon APRN [address] [place] [address] PCP - General 10/07/22 Stefan Lennon MD [address] [place] [address] Surgeon Neurosurgery 03/01/23 Vikas Green MD [address] [place] [address] Surgeon Neurosurgery 03/30/23 documented as of this encounter
--- OUTSIDE RECORDS SUMMARY | 2025-01-18 15:28 | XMS_ITS | Encounter Summary ---
Author Organization [place] [address] Care Team Providers Care Filler Block Inserter Remover Name Role Phone Janet Vogt MD Primary Care Provider Na Ang MD Unavailable [phone] Encounter Details Date Type Department Care Team (Late st Contact Info) Description 07/11/2019 Orders Only [facility] [address] [facility] [address] [place] [address] Gerardo Purcell MD [address] [place] [address] Social History Tobacco Use Types Packs/Day Years [...] No 03/14/2019 1:41 PM Adriana Goode Claire, CHRIS * Is the person blind or does he/she have serious difficulty seeing even when wearing glasses? Answer Date of Assessment Author No 03/14/2019 1:41 PM Adriana Goode CHRIS * Does this person have serious [...] EDT Office Visit [facility] [address] [place] [address] Liliya Guadarrama, RD,LD [address] [place] [address] 05/07/2025 12:40 PM EST Office Visit [facility] [address] [place] [address] Katharine Whitlock MD [address] [address] 08/15/2025 1:40 PM EDT Office Visit [facility] [address] [place], [place] [address] Na Ang MD [address] [phone] documented as of this encounter Goals Goal [...] EDT) 07/11/2019 12:3 0 PM EDT Impressions [facility] - 07/11/2019 1:00 PM EDT Erythema in the distal rectum. (Biopsy). Otherwise normal colonoscopy. Abnormal digital rectal exam (large external hemorrhoids). Plan: No need for further screening colonoscopies due to age. This section is an excerpt of the full report. us Gerardo Rahman MD GI PROCEDURE ORDERABLES Fi nal Result [facility] [address] [place] [address] documented in this encounter Visit Diagnoses Not on filedocumented in this encounter Additional Health Concerns Infection Onset Date Last Indicated Resolved Time COVID-19 Comment:[place] [id number]: import to resolve all COVID-19 infections added prior to 03/01/2020 02/21/2020 02/21/2020 03/25/2020 1:4 0 PM EST R/O COVID-19 12/11/2020 12/11/2020 12/11/2020 1:41 PM EDT R/O COVID-19 04/16/2021 04/16/2021 04/17/2021 2:30 PM EST R/O COVID-04/28/2022 04/28/2022 04/28/2022 7:12 AM EST INFLUENZA 04/28/2022 04/28/2022 05/06/2022 10:1 2 PM EST Assessment Noted Time A fall risk assessment has been complete d for the patient 09/07/2018 9:25 AM EDT documented as of this encounter Care Teams Filler Block Inserter Remover Relationship Specialty Start Date End Date Janet Vogt MD [address] [place] [address] PCP - General Family Medicine 12/04/18 03/09/23 Na Ang MD [address] [phone] Consulting Physician Ophthalmology 07/10/20 documented as of this encounter
--- OUTSIDE RECORDS SUMMARY | 2025-01-18 15:28 | XMS_ITS | Encounter Summary ---
Author Organization Healthcare Address [address] [place] [address] Care Team Providers Care Car Sales Associate Name Role Phone Patrice Gordonjessica Kaufman APRN Primary Care Provider [phone] Stefan Lennon MD Unavailable [phone] Vikas Green MD Unavailable [phone] Encounter Details Date Type Department Care Team [...] Description 01/23/2025 1:15 PM EDT Pre-Admission Testing [facility] Pre-op Clinic [address] [place] [address] 01/23/2025 2:15 PM EDT Consult [facility] [address], [address] [place] [address] Vikas Green MD [address] [place] [address] 01/23/2025 3:20 PM EDT Clinical Support [facility] [address], [address] [place] [address] 02/15/2025 12:05 PM EDT Hospital Encounter [facility] [address] [place] [address] Vikas Green MD [address] [address] 02/15/2025 12:05 PM EDT - 02/15/2025 2:55 PM EDT Surgery [facility] [address] [place] [address] Vikas Green MD [address] [facility] [place] [address] L2-L5 Lumbar Laminectomy [97864 (CPT )] 07/05/2025 11:40 AM EST Office Visit [facility] [address] [place] [address] Devin Monahan MD [address] [place] [address] Scheduled Procedures Name Priority Associated [...] documented as of this encounter Care Teams Car Sales Associate Relationship Specialty Start Date End Date Leroy Gordon APRN [address] [place] [address] PCP - General 10/07/22 Stefan Lennon MD [address] [place] [address] Surgeon Neurosurgery 03/01/23 Vikas Green MD [address] [place] [address] Surgeon Neurosurgery 03/30/23 documented as of this encounter
--- OUTSIDE RECORDS SUMMARY | 2025-01-18 15:28 | XMS_ITS | Encounter Summary ---
Author [place] [address] Care Team Providers Care Radiation Monitor Name Role Phone Na Ang MD Unavailable [phone] Encounter Details Date Type Department Care Team (Late st Contact Info) Description 12/07/2024 [facility] [place] [address] [facility] [address] [place] [phone] Katharine Whitlock MD 1500 [facility] [address] [place] [phone] CALCITRIOL- COMPUNET, T3 FREE, VITAMIN B6 (PYRIDOXINE) [...] Date Recorded PHQ-2 Total Score 0 07/28/2022 [facility] [place] [facility] - Occupational Stress [...] PM EDT Adriana Anders CHRIS Kat documented as of this encounter Mental Status * Because of a physical, mental or emotional condition, does this person have serious difficulty concentrating, remembering or making decisions? Answer Entry Date Author No 12/18/2020 1:08 PM EDT Adriana Anders CHRIS Kat documented in this encounter Miscellaneous Notes * Telephone Encounter - Aurelia Chatman RN - 12/10/2024 3:49 PM EDT [employer] message sent to patient in regards to HTT testing. documented in this encounter Plan of Treatment Upcoming Encounters Date Type Department Care Team (Late st Contact Info) Description 02/06/2025 2:30 PM EDT Office Visit [facility] [address] [place] [address],LD [address] [place] [address] 05/07/2025 12:40 PM EST Office Visit [facility] [place] [address] [address] Katharine Whitlock MD [address] [address] 08/15/2025 1:40 PM EDT Office Visit [facility] [address] [address] Na Ang MD [address] [address] documented as of this encounter Goals Goal [...] documented as of this encounter Care Teams Radiation Monitor Relationship Specialty Start Date End Date Na Ang MD [address] [phone] Consulting Physician Ophthalmology 07/10/20 documented as of this encounter
--- OUTSIDE RECORDS SUMMARY | 2025-01-18 15:28 | XMS_ITS | Clinical Summary ---
Author Organization [facility] Address [address] [place] [address] Care Team Providers Care Bread Packer Name Role Phone Janet Vogt MD Primary Care Provider [phone] Allergies Active Allergy Reactions Criticality Noted Date [...] 10:27 AM 07/20/2022 7:21 PM Care Teams Bread Packer Relationship Specialty Start Date End Date Janet Vogt MD PCP - General Family Medicine 07/19/22
--- OUTSIDE RECORDS SUMMARY | 2025-01-18 15:28 | XMS_ITS | Encounter Summary ---
Author Organization Healthcare Address [address] [place] [address] Care Team Providers Care Turpentine Farmer Name Role Phone Patrice rosajessica Kaufman APRN Primary Care Provider [phone] Stefan Lennon MD Unavailable [phone] Vikas Green MD Unavailable [phone] Encounter Details Date Type Department Care Team [...] Description 01/23/2025 1:15 PM EDT [facility] [address] [place] [address] 01/23/2025 2:15 PM EDT Consult [facility] [address], [address] [place] [address] Vikas Green MD [address] [place] [address] 01/23/2025 3:20 PM EDT Clinical Support [facility] Lab [address] [place] [address] 02/15/2025 12:05 PM EDT Hospital Encounter [facility] [address] [place] [address] Vikas Green MD [address] [address] 02/15/2025 12:05 PM EDT - 02/15/2025 2:55 PM EDT Surgery [facility] [address] [place] [address] Vikas Green MD [address] [place] [address] L2-L5 Lumbar Laminectomy [58608 (CPT )] 07/05/2025 11:40 AM EST Office Visit [facility] [address] [place] [address] Devin Monahan MD [address] [place] [address] Scheduled Procedures Name Priority Associated [...] documented as of this encounter Care Teams Turpentine Farmer Relationship Specialty Start Date End Date Leroy Gordon APRN [address] [place] [address] PCP - General 10/07/22 Stefan Lennon MD [address] [place] [address] Surgeon Neurosurgery 03/01/23 Vikas Green MD [address] [place] [address] Surgeon Neurosurgery 03/30/23 documented as of this encounter
--- OUTSIDE RECORDS SUMMARY | 2025-01-18 15:28 | XMS_ITS | Encounter Summary ---
Author Organization Healthcare Address [address] [place] [address] Care Team Providers Care Claims Adjuster Supervisor Name Role Phone Leroy Gordon APRN Primary Care Provider [phone] Stefan Lennon MD Unavailable [phone] Vikas Green MD Unavailable [phone] Encounter Details Date Type Department Care Team (Late st Contact Info) Description 12/27/2024 [facility]phone [facility] [address] [place] [address] Vikas Green MD [address] [place] [address] Social History Tobacco Use Types [...] Dr. Green Her appointment with Ashely Guy HORACE has been moved up to Tuesday01/01/2025 at [...] optimal time of day to reach caller: [phone] Note: Please do not reply to this [...] Description 01/23/2025 1:15 PM EDT Pre-Admission Testing [facility] Clinic [address] [place] [address] 01/23/2025 2:15 PM EDT Consult [facility] [address] [place] [address] Vikas Green MD [address] [place] [address] 01/23/2025 3:20 PM EDT Clinical Support [facility] [address], [address] [place] [address] 02/15/2025 12:05 PM EDT Hospital Encounter [facility] [address] [place] [address] Vikas Green MD [address] [address] 02/15/2025 12:05 PM EDT - 02/15/2025 2:55 PM EDT Surgery [facility] [address] [place] [address] Vikas Green MD [address] [address] L2-L5 Lumbar Laminectomy [13911 (CPT )] 07/05/2025 11:40 AM EST Office Visit [address] [place] [address] Devin Monahan MD [address] [place] [address] Scheduled Procedures Name Priority Associated [...] documented as of this encounter Care Teams Claims Adjuster Supervisor Relationship Specialty Start Date End Date Leroy Gordon APRN [address] [place] [address] PCP - General 10/07/22 Stefan Lennon MD [address] [place] [address] Surgeon Neurosurgery 03/01/23 Vikas Green MD [address] [place] [address] Surgeon Neurosurgery 03/30/23 documented as of this encounter
--- OUTSIDE RECORDS SUMMARY | 2025-01-18 15:28 | XMS_ITS | Encounter Summary ---
Author Organization [facility] [place] [address] Care Team Providers Care Glaze Grinder Name Role Phone Janet Vogt MD Primary Care Provider Na Ang MD Unavailable [phone] Encounter Details Date Type Department Care Team (Late st Contact Info) Description 07/11/2019 Lab Requisition [facility] [place] [address] Gerardo Purcell MD [address] [place] [address] Personal history of colonic polyps; Other specified [...] 03/14/2019 1:41 PM Adriana Goode CHRIS * Because of a physical, mental [...] Visit [facility] [address] [address] Liliya Guadarrama, RD,LD [address] [place] [address] 05/07/2025 12:40 PM EST Office Visit [facility] [place] [address] [employer] [address] [place] [phone] Katharine Whitlock MD [address] [employer] [address] [address] 08/15/2025 1:40 PM EDT Office Visit [facility] [address] [employer] [address] [place] [address] Na Ang MD [address] [address] documented as of this encounter Goals Goal [...] PM EDT) CASE REPORT Surgical Pathology Case: [id number] Authorizing Provider: Gerardo Purcell MD Collected: 07/11/2019 1230 Ordering Location: [facility] Received: 07/11/2019 1830 Pathologist: Claudia Issa MD Specimen: Large Intestine, Rectum 07/12/2019 9:14 AM EDT [facility] CLINICAL HISTORY Personal history of colon polyps. 07/12/2019 9:14 AM EDT [facility] FINAL DIAGNOSIS Distal rectum, biopsy: - Colonic mucosa with mild acute inflammation and mild hyperplastic change. - Negative for granuloma, dysplasia, or malignancy. [facility] at 0914 EDT COMMENT 07/12/2019 9:14 AM EDT [facility] GROSS DESCRIPTION Received in formalin labeled with the patient's name and distal rectal biopsy are 3 fragments of rico tissue ranging from 0.3 to 0.5 cm in greatest dimension. Entirely submitted in one cassette. /ZN 07/12/2019 9:14 AM EDT [facility] MICROSCOPIC DESCRIPTION Microscopic examination is performed and the findings corroborate the diagnosis. 07/12/2019 9:14 AM EDT [facility] SPECIAL STAINS 07/12/2019 9:14 AM EDT [facility] EMBEDDED IMAGES 07/12/2019 9:14 AM EDT [facility] Tissue RECTUM STRUCTURE / Unknown 07/11/2019 12:30 PM EDT 07/11/2019 6:30 PM EDT Gerardo Rahman MD PATHOLOGY ORDERABLES Final Result [facility] [address] [place] [address] documented in this encounter Visit Diagnoses Diagnosis Personal history of colonic polyps Other specified diseases of intestine documented in this encounter Additional Health Concerns Infection Onset Date Last Indicated Resolved Time COVID-19 Comment:[id number]: import to resolve all COVID-19 infections added [...] documented as of this encounter Care Teams Glaze Grinder Relationship Specialty Start Date End Date Janet Vogt MD [address] [place] [address] PCP - General Family Medicine 12/04/18 03/09/23 Na Ang MD [address] [address] Consulting Physician Ophthalmology 07/10/20 documented as of this encounter
--- OUTSIDE RECORDS SUMMARY | 2025-01-18 15:28 | XMS_ITS | Patient Health Record ---
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
== END 2025-01-18 23:59 | disposition home or self-care (01) ==
LOC: LAB 15:24
PROVIDERS: PCP Nurse Practitioner Family; Visit Provider Nurse Practitioner Family
DX: R14.0 Abdominal distension (gaseous) (principal)
CPT/HCPCS: 82653